=== PATIENT | male | born 1960 | race Caucasian/White ===

== ENCOUNTER 2016-09-17 05:26 | Emergency (ER) | payer OTHER ==
[2016-09-17 06:30] VITALS: BMI 34.3
--- NOTE | 2016-09-17 06:48 | PDOC ---
History of Present Illness - General History Source: Patient Exam Limitations: No Limitations - History of Present Illness Initial Comments: 09/17/16 06:52 The patient is a 56 year old male with a significant past medical history of CVA (residual left sided weakness), diabetes, hypertension, and CHF (has 2 stents), who presents to the ER with intox and abrasion on the forehead s/p fall a few hours ago. Patient [place] where he [place] alcohol. He recalls falling and hitting his forehead, but denies loss of consciousness. On interview, patient appears to be somnolent. He denies any associated pain. Denies abdominal pain Denies shortness of breath, chest pain Denies lightheadedness or dizziness <Maryanne Bosch - Last Filed: 09/17/16 06:55> <Eloina Mak - Last Filed: 09/19/16 00:03> - General Chief Complaint: Injury Stated Complaint: INTOX Time Seen by Provider: 09/17/16 05:29 Past History <Maryanne Bosch - Last Filed: 09/17/16 06:55> - Past Medical History Anemia: No Asthma: No Cancer: No Cardiac Disorders: Yes (stent x 2) CVA: Yes (2010, 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) COPD: No CHF: No Dementia: No Diabetes: Yes GI Disorders: No Disorders: No HTN: Yes Hypercholesterolemia: Yes Liver Disease: No Suicide Attempt (Hx): Yes Seizures: No Thyroid Disease: No - Surgical History Abdominal Surgery: No Appendectomy: No Cardiac Surgery: Yes (STENTS X2) Cholecystectomy: No Lung Surgery: No Neurologic Surgery: No Orthopedic Surgery: No - Immunization History Immunization Up to Date: Yes - Psycho/Social/Smoking Cessation Hx Anxiety: No Suicidal Ideation: No Smoking Status: Yes Smoking History: Current every day smoker Have you smoked in the past 12 months: Yes Number of Cigarettes Smoked Daily: 8 If you are a former smoker, when did you quit?: 3 months ago Cigars Per Day: 0 Information on smoking cessation initiated: No 'Breaking Loose' booklet given: 11/21/15 Hx Alcohol Use: Yes Drug/Substance Use Hx: No Substance Use Type: None Hx Substance Use Treatment: No <Eloina Mak - Last Filed: 09/19/16 00:03> - Past Medical History Allergies/Adverse Reactions: Allergies Allergy/AdvReac Type Severity Reaction Status Date / Time No Known Drug Allergies Allergy Verified 09/17/16 06:16 Home Medications: Ambulatory Orders Glipizide [Glipizide ER] 2.5 mg PO BID 10/15/13 Amlodipine Besylate [Norvasc -] 5 mg PO DAILY 09/17/16 Review of Systems - Review of Systems Able to Perform ROS?: Yes Comments:: 09/17/16 06:53 CONSTITUTIONAL: Absent: fever, no chills, no fatigue EYES: Absent: visual changes ENT: Absent: ear pain, no sore throat CARDIOVASCULAR: Absent: chest pain, no palpitations RESPIRATORY: Absent: cough, no SOB GI: Absent: abdominal pain, no nausea, no vomiting, no constipation, no diarrhea GENITOURINARY: Absent: dysuria, no frequency, no hematuria MUSCULOSKELETAL: Absent: back pain, no arthralgia, no myalgia SKIN: Present: (+) abrasion on forehead Absent: rash NEURO: Absent: headache <Uts,Maryanne - Last Filed: 09/17/16 06:55> *Physical Exam - Vital Signs Last Vital Signs Temp Pulse Resp BP Pulse Ox 97.8 F 92 H 14 144/69 100 09/17/16 05:27 09/17/16 05:09/17/16 05:09/17/16 05:09/17/16 05:27 - Physical Exam Comments: 09/17/16 06:53 GENERAL: Well-appearing, well-nourished. No apparent distress. HEENT: Normocephalic, atraumatic. PERRL, EOM intact. CARDIOVASCULAR: Normal S1, S2. Regular rate and rhythm. PULMONARY: Clear to auscultation bilaterally. ABDOMEN: Soft, non-distended, non-tender. EXTREMITIES: Normal ROM in all four extremities. No gross deformities. SKIN: Warm, dry. No rash NEUROLOGICAL: Minimally weak on the left side (4/5 strength) <Uts,Maryanne - Last Filed: 09/17/16 06:55> - Vital Signs Last Vital Signs Temp Pulse Resp BP Pulse Ox 97.8 F 92 H 14 144/69 100 09/17/16 05:27 09/17/16 05:27 09/17/16 05:27 09/17/16 05:27 09/17/16 05:27 <Eloina Mak - Last Filed: 09/19/16 00:03> ED Treatment Course - LABORATORY CBC & Chemistry Diagram: 09/17/16 07:11 09/17/16 07:11 <Eloina Mak - Last Filed: 09/19/16 00:03> Medical Decision Making - Medical Decision Making 09/17/16 06:58 [place] and hit his forehead. Brought by EMS. Pt is A+Ox3 he is ambulating about the ER, now resting in bed. He says that he never lost consciousness. He has a hematoma on his forehead. He complains of blurry vision x 3 weeks. We will check labs, as he has a hx of DM and a head CT. AM ER doc will get signout and check labs and head CT. <Eloina Mak - Last Filed: 09/19/16 00:03> *DC/Admit/Observation/Transfer - Attestations Scribe Attestion: Documentation prepared by Maryanne Bosch, acting as medical csr for Eloina Mak MD. <Maryanne Bosch - Last Filed: 09/17/16 06:55> <Eloina Mak - Last Filed: 09/19/16 00:03> Diagnosis at time of Disposition: Alcohol intoxication - Discharge Dispostion Disposition: HOME Condition at time of disposition: Stable - Patient Instructions Printed Discharge Instructions: DI for Alcohol Abuse Additional Instructions: Follow-up with primary care physician. Return to the emergency department if symptoms persist, worsen, or new symptoms arise.
[2016-09-17] MEDS ORDERED: SODIUM CHLORIDE 0.9% 500 ML INFUS.BAG IV ONE (06:54)
[2016-09-17 07:21] LABS: BASOPHIL 0.9 % (0-2.0); MCH 32.8 pg (25.7-33.7); MCHC 34.7 g/dl (32.0-35.9); MEAN CELL VOLUME 94.5 fl (80-96); NEUTROPHILS 67.1 % (42.8-82.8); PLATELET COUNT 164 K/MM3 (134-434); RDW 14.9 % (11.9-15.9); WHITE BLOOD COUNT 6.1 K/mm3 (4.0-10.0)
[2016-09-17 07:48] LABS: ALBUMIN 3.2 g/dl (3.4-5.0); ALK PHOS 68 U/L (45-117); ANION GAP 9 (8-16); BILIRUBIN,TOTAL 0.2 mg/dL (0.2-1.0); CO2 25 mmol/L (21-32); COCKROFT - GAULT 68.87; CREATININE 1.5 mg/dL (0.7-1.3); GLUCOSE,RANDOM 149 mg/dL (74-106); SGOT/AST 14 U/L (15-37); SGPT/ALT 19 U/L (12-78); TOT PROT 5.9 g/dl (6.4-8.2)
[2016-09-17 08:12] VITALS: TEMP 98.1
[2016-09-17 09:10] LABS: ACETONE SERUM NEGATIVE (NEGATIVE)
--- NOTE | 2016-09-17 10:30 | PDOC ---
*Physical Exam - Vital Signs Last Vital Signs Temp Pulse Resp BP Pulse Ox 98.1 F 70 18 136/74 98 09/17/16 07:30 09/17/16 07:30 09/17/16 07:30 09/17/16 07:30 09/17/16 07:30 ED Treatment Course - LABORATORY CBC & Chemistry Diagram: 09/17/16 07:11 09/17/16 07:11 - ADDITIONAL ORDERS Additional order review: Laboratory Results 09/17/16 09/17/16 07:11 07:11 Sodium 143 Potassium 4.1 Chloride 109 H Carbon Dioxide 25 Anion Gap 9 BUN 46 H Creatinine 1.5 H Creat Clearance w eGFR 48.07 Random Glucose 149 H Calcium 8.0 L Total Bilirubin 0.2 D AST 14 L ALT 19 Alkaline Phosphatase 68 Total Protein 5.9 L Albumin 3.2 L Alcohol, Quantitative 104.6 H* Acetone, Qual Negative 09/17/16 07:11 RBC 3.17 L MCV 94.5 MCHC 34.7 RDW 14.9 MPV 8.0 Neutrophils % 67.1 Lymphocytes % 19.6 Monocytes % 8.4 Eosinophils % 4.0 Basophils % 0.9 - Medications Given in the ED: ED Medications Discontinued Medications Generic Name Dose Route Start Last Admin Trade Name Freq PRN Reason Stop Dose Admin Sodium Chloride 500 ml 09/17/16 06:54 09/17/16 07:30 Normal Saline - IV 09/17/16 06:55 500 ml ONCE ONE Administration Progress Note - Progress Note Progress Note: This patient was endorsed to me at [address] Red pending results of lab studies and CT head which are all within acceptable parameters. The alcohol level was 100 at 7 AM. I have reevaluated the patient at this time and he is awake alert and oriented 3 and is clinically sober. The plan is to discharge home, follow-up with primary care physician and return to the emergency department if symptoms persist, worsen, or new symptoms arise. *DC/Admit/Observation/Transfer Diagnosis at time of Disposition: Alcoholic intoxication - Discharge Dispostion Disposition: HOME Condition at time of disposition: Stable Admit: No - Patient Instructions Printed Discharge Instructions: DI for Alcohol Abuse Additional Instructions: Follow-up with primary care physician. Return to the emergency department if symptoms persist, worsen, or new symptoms arise.
[2016-09-17 10:46] VITALS: BP 130/70; PULSE 79
== END 2016-09-17 10:46 | disposition home or self-care (01) ==
LOC: JER 05:26
DX: F10.10 Alcohol abuse, uncomplicated (principal); S00.81XA Abrasion of other part of head, initial encounter; W18.39XA Other fall on same level, initial encounter; Y93.89 Activity, other specified; Y92.59 Other trade areas as the place of occurrence of the external cause; Y99.8 Other external cause status; I25.10 Atherosclerotic heart disease of native coronary artery without angina pectoris; I11.0 Hypertensive heart disease with heart failure; F17.210 Nicotine dependence, cigarettes, uncomplicated; Z95.5 Presence of coronary angioplasty implant and graft; E11.9 Type 2 diabetes mellitus without complications; I69.854 Hemiplegia and hemiparesis following other cerebrovascular disease affecting left non-dominant side; Z79.84 Long term (current) use of oral hypoglycemic drugs
CPT/HCPCS: 36415; 70450-TC; 80053; 80307; 82009; 85025; 99285-25

== ENCOUNTER 2016-10-17 16:19 | Inpatient (IN) | payer OTHER ==
--- NOTE | 2016-10-17 16:49 | PDOC ---
Rapid Medical Evaluation Chief Complaint: Chest Pain Time Seen by Provider: 10/17/16 16:44 Medical Evaluation: Allergies Allergy/AdvReac Type Severity Reaction Status Date / Time No Known Drug Allergies Allergy Verified 10/17/16 16:41 I have performed a brief in-person evaluation of this patient. The patient presents with a chief complaint of: Multiple complaints including CP this am and worsening numbness to L arm/leg x 3 days. Also c/o urinary incontinence x 1 week. H/o DM, CAD w/ stents, CVA w/ L sided deficit Pertinent physical exam findings:Stable and well jony w/ L sided weakness ( baseline since CVA) I have ordered the following:ekg/cxr/cbc/chem/trop/ua The patient will proceed to the ED for further evaluation.
--- NOTE | 2016-10-17 17:35 | PDOC ---
History of Present Illness - General Chief Complaint: Chest Pain Stated Complaint: CHEST PAIN Time Seen by Provider: 10/17/16 16:44 History Source: Patient Exam Limitations: No Limitations - History of Present Illness Initial Comments: 10/17/16 17:14 The patient is a 55 year old male brought via EMS, with a significant past medical history of CVA (~6 years ago, left side slight residual weakness), dm, HTN (has not taken meds x 3w), cad s/p stents on plavix, and hld, here a month ago for EtOH intoxication, who presents to the emergency department with chest pain x 4 hr. Chest pain is the same pain he intermittantly has (evaluated here for chest pain in past), mid sternal, nonradiating, constant, not associated with palpitations, loc, sob or orthopnea. He denies increase in weight. He has chronic dry cough (current smoker). Over the past week he developed urinary incontinence, urgency, malodorous foamy urine, increased weakness and increased edema in his left upper and lower extremities affected by past cva. He denies hematuria, dysuria, flank pain, abd pain, f/c. He denies diarrhea, constipation , melena, hematochezia. PCP Dr Malinda Islas 10/17/16 17:39 10/17/16 18:19 Past History - Past Medical History Allergies/Adverse Reactions: Allergies Allergy/AdvReac Type Severity Reaction Status Date / Time No Known Drug Allergies Allergy Verified 10/17/16 16:41 Home Medications: Ambulatory Orders Glipizide [Glipizide ER] 5 mg PO DAILY 10/15/13 Amlodipine Besylate [Norvasc -] 5 mg PO DAILY 09/17/16 Carvedilol [Coreg -] 0 mg PO DAILY 10/17/16 Clopidogrel Bisulfate [Plavix -] 75 mg PO DAILY 10/17/16 Anemia: No Asthma: No Cancer: No Cardiac Disorders: Yes (stent x 2) CVA: Yes (2009, 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) COPD: No CHF: No Dementia: No Diabetes: Yes GI Disorders: No Disorders: No HTN: Yes Hypercholesterolemia: Yes Liver Disease: No Suicide Attempt (Hx): Yes Seizures: No Thyroid Disease: No - Surgical History Abdominal Surgery: No Appendectomy: No Cardiac Surgery: Yes (STENTS X2) Cholecystectomy: No Lung Surgery: No Neurologic Surgery: No Orthopedic Surgery: No - Immunization History Immunization Up to Date: Yes - Psycho/Social/Smoking Cessation Hx Anxiety: No Suicidal Ideation: No Smoking Status: Yes Smoking History: Current every day smoker Have you smoked in the past 12 months: Yes Number of Cigarettes Smoked Daily: 4 If you are a former smoker, when did you quit?: 3 months ago Cigars Per Day: 0 Information on smoking cessation initiated: Yes 'Breaking Loose' booklet given: 10/17/16 Hx Alcohol Use: No Drug/Substance Use Hx: No Substance Use Type: None Hx Substance Use Treatment: No Review of Systems - Review of Systems Able to Perform ROS?: Yes Is the patient limited Telugu proficient: No Constitutional: Yes: Weakness. No: Chills, Fever HEENTM: No: Nose Congestion, Throat Pain, Difficulty Swallowing Respiratory: Yes: Cough. No: Orthopnea, Shortness of Breath, Productive cough, Hemoptysis Cardiac (ROS): Yes: Chest Pain, Edema. No: Irregular Heart Rate, Lightheadedness, Palpitations, Syncope ABD/GI: No: Abdominal Distended, Constipated, Diarrhea, Nausea, Poor Appetite, Rectal Bleeding, Vomiting, Abdominal cramping, Tarry Stools : No: Dysuria, Flank Pain Musculoskeletal: Yes: Muscle Weakness, Joint Stiffness. No: Back Pain, Joint Pain Integumentary: No: Bruising, Pruritus, Rash Neurological: Yes: Numbness, Paresthesia (LUE LLE). No: Headache Psychiatric: No: Change in Appetite Endocrine: No: Change in Weight Hematologic/Lymphatic: No: Anemia, Blood Clots, Easy Bleeding, Easy Bruising All Other Systems: Reviewed and Negative *Physical Exam - Vital Signs Last Vital Signs Temp Pulse Resp BP Pulse Ox 98.2 F 88 18 155/78 96 10/17/16 16:43 10/17/16 16:43 10/17/16 16:43 10/17/16 16:43 10/17/16 16:43 - Physical Exam Comments: 10/17/16 17:44 General: aao x3, nad HEENT: perrla eomi, sclera anicteric cv: rrr s1s, mild jvd with hepatojugular reflex pulm: mild bibasilar crackles R>L GI/: soft, moderately distended, +fluid wave, normoactive bowel sounds, nontender, no mass, no cva tenderness Extremities: LUE and LLE ematous Heart Score/ECG Review - History History: Slightly suspicious - Age Age: 45-65 - Risk Factors Risk Factors Heart Score: Yes Hx Hypercholesterolemia, Yes Hx Hypertension, Yes Hx Diabetes, Yes Smoking History, Yes Hx Obesity #1 ECG reviewed & interpreted by me at: 17:20 (, no change compared to prior) ED Treatment Course - LABORATORY CBC & Chemistry Diagram: 10/17/16 17:34 10/17/16 17:34 Medical Decision Making - Medical Decision Making 10/17/16 17:51 Patient presents with clinical picture consistent with volume overload, possible uti, chest pain cbc w diff, cmp, cardiac profile, lactic acid, blood urine cultures, ua, ekg, cxr 10/17/16 18:17 cbc slightly increased anemia (hgb 9.9 from 10.4 a month ago) UA nephrotic range 3+ protein 2+ gluc 1+ blood -order urine lytes, fena, eosinophils, utox 10/17/16 18:19 CXR poor inspiratory effort, increased vessel cephalization 10/17/16 18:23 10/17/16 18:35 bun/creat 45/1.5 at baseline, trop negative etoh level 104.6 elevated; patient continues to deny drinking etoh 10/17/16 18:36 further labs p/d 10/17/16 18:36 10/17/16 18:51 10/17/16 18:53 will bladder scan *DC/Admit/Observation/Transfer Diagnosis at time of Disposition: Chest pain, Urinary incontinence
[2016-10-17 17:53] LABS: MCH 31.7 pg (25.7-33.7); MEAN CELL VOLUME 96.2 fl (80-96); MEAN PLT VOLUME 8.9 fl (7.5-11.1); NEUTROPHILS 73.2 % (42.8-82.8); PLATELET COUNT 202 K/MM3 (134-434); RDW 14.2 % (11.9-15.9); WHITE BLOOD COUNT 6.7 K/mm3 (4.0-10.0)
[2016-10-17 18:08] LABS: URINE APPEARANCE CLEAR; URINE BILIRUBIN NEGATIVE (NEGATIVE); URINE COLOR LTYELLOW; URINE GLUCOSE (UA) 2+ (NEGATIVE); URINE KETONE NEGATIVE (NEGATIVE); URINE LEUK ESTERASE NEGATIVE (NEGATIVE); URINE NITRITE NEGATIVE (NEGATIVE); URINE UROBILINOGEN NEGATIVE E.U./dl (0.2-1.0)
[2016-10-17 18:09] LABS: URINE BLOOD 1+ (NEGATIVE); URINE PROTEIN 3+ (NEGATIVE)
[2016-10-17 18:11] LABS: URINE HYALINE CAST 1 /lpf; URINE MUCUS RARE; URINE RBC 2 /hpf (0-3); URINE WBC 1 /hpf (3-5)
[2016-10-17 18:27] LABS: ANION GAP 8 (8-16); CALCIUM 8.6 mg/dL (8.5-10.1); CO2 26 mmol/L (21-32); CREATININE 1.5 mg/dL (0.7-1.3); GLUCOSE,RANDOM 192 mg/dL (74-106); SGOT/AST 16 U/L (15-37); SGPT/ALT 20 U/L (12-78)
[2016-10-17 18:30] LABS: ALK PHOS 80 U/L (45-117); BILIRUBIN,TOTAL 0.2 mg/dL (0.2-1.0); TROPONIN I 0.03 ng/ml (0.00-0.05)
[2016-10-17 20:37] LABS: URINE MARIJUANA THC NEGATIVE ng/ml (CUTOFF=50)
[2016-10-17 21:57] LABS: TROPONIN I 0.04 ng/ml (0.00-0.05)
--- NOTE | 2016-10-17 23:13 | PDOC ---
*Physical Exam - Vital Signs Last Vital Signs Temp Pulse Resp BP Pulse Ox 98.2 F 88 18 155/78 96 10/17/16 16:43 10/17/16 16:43 10/17/16 16:43 10/17/16 16:43 10/17/16 16:43 ED Treatment Course - LABORATORY CBC & Chemistry Diagram: 10/17/16 17:34 10/17/16 17:34 - ADDITIONAL ORDERS Additional order review: Laboratory Results 10/17/16 10/17/16 10/17/16 21:02 19:15 18:16 WBC RBC Hgb Hct MCV MCHC RDW Plt Count MPV Neutrophils % Lymphocytes % Monocytes % Eosinophils % Basophils % Sodium Potassium Chloride Carbon Dioxide Anion Gap BUN Creatinine Creat Clearance w eGFR Random Glucose Lactic Acid Calcium Total Bilirubin AST ALT Alkaline Phosphatase Creatine Kinase 292 Creatine Kinase Index CK-MB (CK-2) Troponin I 0.04 D Total Protein Albumin Lipase Urine Color Urine Appearance Urine pH Ur Specific [place] Urine Protein Urine Glucose (UA) Urine Ketones Urine Blood Urine Nitrite Urine Bilirubin Urine Urobilinogen Ur Leukocyte Esterase Urine RBC Urine WBC Hyaline Casts Urine Mucus Ur Random Sodium 63 Ur Random Potassium 29.6 Ur Random Chloride 55 Urine Creatinine 105.0 Opiates Screen Negative Methadone Screen Negative Barbiturate Screen Negative Phencyclidine Screen Negative Ur Amphetamines Screen Negative MDMA (Ecstasy) Screen Negative Benzodiazepines Screen Negative Cocaine Screen Negative U Marijuana (THC) Screen Negative 10/17/16 10/17/16 10/17/16 18:03 17:50 17:50 WBC RBC Hgb Hct MCV MCHC RDW Plt Count MPV Neutrophils % Lymphocytes % Monocytes % Eosinophils % Basophils % Sodium Potassium Chloride Carbon Dioxide Anion Gap BUN Creatinine Creat Clearance w eGFR Random Glucose Lactic Acid 1.3 Calcium Total Bilirubin AST ALT Alkaline Phosphatase Creatine Kinase Creatine Kinase Index CK-MB (CK-2) Troponin I Total Protein Albumin Lipase 249 Urine Color Ltyellow Urine Appearance Clear Urine pH 5.0 Ur Specific [place] 1.025 Urine Protein 3+ H Urine Glucose (UA) 2+ H Urine Ketones Negative Urine Blood 1+ H Urine Nitrite Negative Urine Bilirubin Negative Urine Urobilinogen Negative Ur Leukocyte Esterase Negative Urine RBC 2 Urine WBC 1 Hyaline Casts 1 Urine Mucus Rare Ur Random Sodium Ur Random Potassium Ur Random Chloride Urine Creatinine Opiates Screen Methadone Screen Barbiturate Screen Phencyclidine Screen Ur Amphetamines Screen MDMA (Ecstasy) Screen Benzodiazepines Screen Cocaine Screen U Marijuana (THC) Screen 10/17/16 10/17/16 17:34 17:34 WBC 6.7 RBC 3.12 L Hgb 9.9 L Hct 30.0 L MCV 96.2 H MCHC 33.0 RDW 14.2 Plt Count 202 D MPV 8.9 D Neutrophils % 73.2 Lymphocytes % 13.8 D Monocytes % 8.0 Eosinophils % 4.0 Basophils % 1.0 Sodium 142 Potassium 4.5 Chloride 108 H Carbon Dioxide 26 Anion Gap 8 BUN 45 H Creatinine 1.5 H Creat Clearance w eGFR 48.07 Random Glucose 192 H D Lactic Acid Calcium 8.6 Total Bilirubin 0.2 AST 16 ALT 20 Alkaline Phosphatase 80 Creatine Kinase 285 D Creatine Kinase Index 1.7 CK-MB (CK-2) 4.719 H Troponin I 0.03 D Total Protein 6.0 L Albumin 3.0 L Lipase Urine Color Urine Appearance Urine pH Ur Specific [place] Urine Protein Urine Glucose (UA) Urine Ketones Urine Blood Urine Nitrite Urine Bilirubin Urine Urobilinogen Ur Leukocyte Esterase Urine RBC Urine WBC Hyaline Casts Urine Mucus Ur Random Sodium Ur Random Potassium Ur Random Chloride Urine Creatinine Opiates Screen Methadone Screen Barbiturate Screen Phencyclidine Screen Ur Amphetamines Screen MDMA (Ecstasy) Screen Benzodiazepines Screen Cocaine Screen U Marijuana (THC) Screen 10/17/16 17:34 RBC 3.12 L MCV 96.2 H MCHC 33.0 RDW 14.2 MPV 8.9 D Neutrophils % 73.2 Lymphocytes % 13.8 D Monocytes % 8.0 Eosinophils % 4.0 Basophils % 1.0 *DC/Admit/Observation/Transfer Diagnosis at time of Disposition: IDDM (insulin dependent diabetes mellitus) Chest pain Qualifiers: Chest pain type: precordial pain Qualified Code(s): R07.2 - Precordial pain Urinary incontinence Qualifiers: Urinary Incontinence type: unspecified incontinence Qualified Code(s): R32 - Unspecified urinary incontinence CKD (chronic kidney disease) Qualifiers: Chronic kidney disease stage: unspecified stage Qualified Code(s): N18.9 - Chronic kidney disease, unspecified Alcohol intoxication Qualifiers: Complication of substance-induced condition: uncomplicated Qualified Code(s): F10.920 - Alcohol use, unspecified with intoxication, uncomplicated - Discharge Dispostion Admit: Yes
[2016-10-18] MEDS: glipiZIDE-XL 5 MG TAB.ER.24 PO SCH (08:40)
[2016-10-18] MEDS ORDERED: glipiZIDE 5 MG TABLET (FP) ONE (08:50)
[2016-10-18] MEDS: INSULIN SLIDING SCALE (NOVOLOG) 1 VIAL SQ SCH ×4 (08:50→21:57)
[2016-10-18] MEDS ORDERED: INSULIN (NOVOLOG) ASPART 100 UNITS/ML 10ML VIAL ONE ×3 (08:50→21:52)
--- NOTE | 2016-10-18 09:59 | CON.CARD ---
Consult Consult Specialty:: Cardiology Referred by:: Dr. 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 Worsening of his chronic stable angina. Describes chronic exertional chest pain for "months" which lasted longer yesterday. Was walking from [facility] to [facility] (several miles) and developed substernal tightness which was relieved with rest, but lasted longer than his usual few minutes. No dyspnea. non palps. 2. Worsening LE edema for few weeks, L>>R 3. Pain and "numbness" of his LE limiting his ability to walk. 4. Dysuria Denies fever, chills. Denies syncope. No abdominal pain or diarrhea. 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[employer]ER: Yes: CVA, Peripheral Neuropathy, Other (arterial insufficiency s/p left fem -tibial bypass- 2013) Cardio/Vascular: Yes: CAD, HTN, Hyperlipdemia Pulmonary: Yes: COPD Psych: Yes: Anxiety Endocrine: Yes: Diabetes Mellitus - Past Surgical History Past Surgical History: Yes: Bypass, Stent - Alcohol/Substance Use Hx Alcohol Use: No - Smoking History Smoking history: Current every day smoker Have you smoked in the past 12 months: Yes Aproximately how many cigarettes per day: 4 If you are a former smoker, when did you quit?: 3 months ago - Social History ADL: Independent History of Recent Travel: No Home Medications - Allergies Allergies/Adverse Reactions: Allergies Allergy/AdvReac Type Severity Reaction Status Date / Time No Known Drug Allergies Allergy Verified 10/17/16 16:41 - Home Medications Home Medications: Ambulatory Orders Glipizide [Glipizide ER] 5 mg PO DAILY 10/15/13 Amlodipine Besylate [Norvasc -] 5 mg PO DAILY 09/17/16 Carvedilol [Coreg -] 0 mg PO DAILY 10/17/16 Clopidogrel Bisulfate [Plavix -] 75 mg PO DAILY 10/17/16 Family Disease History - Family Disease History Family History: Unremarkable (non-contributory to this presentation) Review of Systems Findings/Remarks: see HPI - Review of Systems Cardiovascular: reports: Chest Pain Respiratory: reports: SOB on Exertion (chronic) Musculoskeletal: reports: Other (leg pain bilaterally) Neurological: reports: Unsteady Gait, Weakness - Risk Factors Known Risk Factors: Yes: Diabetes Mellitus, Hypercholesterolemia, Hypertension, Prior [place] /[place] Stroke, Smoking, Other (known CAD) Vital Signs: Vital Signs Temperature 98.2 F 10/18/16 07:53 Pulse Rate 82 10/18/16 07:53 Respiratory Rate 16 10/18/16 03:53 Blood Pressure 162/78 10/18/16 07:53 O2 Sat by Pulse Oximetry (%) 96 10/18/16 07:53 Constitutional: Yes: No Distress Eyes: Yes: Conjunctiva Clear Respiratory: Yes: Regular, Other (no wheezing or rales) Gastrointestinal: Yes: Soft (nontender) Cardiovascular: Yes: Regular Rate and Rhythm JVD: No Carotid Bruit: No PMI: Non-Displaced Edema: Yes Edema: LLE: 3+, RLE: 2+ Neurological: Yes: Alert - Other Data Labs, Other Data: Laboratory Tests 10/17/16 10/17/16 10/17/16 17:34 17:34 17:50 WBC 6.7 Hgb 9.9 L Plt Count 202 D Sodium 142 Potassium 4.5 BUN 45 H Creatinine 1.5 H Creatine Kinase 285 D Troponin I 0.03 D Lipase 249 Urine Protein Urine Glucose (UA) Urine WBC Opiates Screen Methadone Screen Barbiturate Screen Phencyclidine Screen Ur Amphetamines Screen MDMA (Ecstasy) Screen Benzodiazepines Screen Cocaine Screen U Marijuana (THC) Screen 10/17/16 10/17/16 10/17/16 18:03 18:16 21:02 WBC Hgb Plt Count Sodium Potassium BUN Creatinine Creatine Kinase 292 Troponin I 0.04 D Lipase Urine Protein 3+ H Urine Glucose (UA) 2+ H Urine WBC 1 Opiates Screen Negative Methadone Screen Negative Barbiturate Screen Negative Phencyclidine Screen Negative Ur Amphetamines Screen Negative MDMA (Ecstasy) Screen Negative Benzodiazepines Screen Negative Cocaine Screen Negative U Marijuana (THC) Screen Negative NSR 92bpm, bifascicular block Echo: Pending Prior Cardiac Procedures: PTCA with Stent Ejection Fraction %: LVEF > or = 40 % Imaging - Results Chest X-ray: Image Reviewed EKG: Image Reviewed Problem List - Problems (1) Chronic stable angina Code(s): I20.8 - OTHER FORMS OF ANGINA PECTORIS (2) ASHD (arteriosclerotic heart disease) Code(s): I25.10 - ATHSCL HEART DISEASE OF [place] CORONARY ARTERY W/O ANG PCTRS (3) PAD (peripheral artery disease) Code(s): I73.9 - PERIPHERAL VASCULAR DISEASE, UNSPECIFIED (4) Edema Code(s): R60.9 - EDEMA, UNSPECIFIED Qualifiers: Edema type: unspecified Qualified Code(s): R60.9 - Edema, unspecified (5) IDDM (insulin dependent diabetes mellitus) Code(s): E11.9 - TYPE 2 DIABETES MELLITUS WITHOUT COMPLICATIONS Z79.4 - PENITENTIARY (CURRENT) USE OF INSULIN (6) Diabetic neuropathy Code(s): E11.40 - TYPE 2 DIABETES MELLITUS WITH DIABETIC NEUROPATHY, UNSP Qualifiers: Diabetes mellitus type: due to underlying condition (7) Stroke Assessment/Plan: old CVA Code(s): I63.9 - CEREBRAL INFARCTION, UNSPECIFIED Assessment/Plan IMP: Known CAD s/p PCIs, chronic stable angina with possible recent worsening of stable complex Asymmetric LE edema, possibly due to acute on chronic diastolic CHF PAD DM Prior CVA REC: 1. Obtain third set cardiac enzymes 2. Echo to assess LV systolic function, assess for PHTN 3. Continue Plavix 4. Add Ranexa 5. Check LE Venous Duplex 6. Trial of Lasix 7. Consider Vascular and Neuro evaluation for LE pain and numbness.
[2016-10-18 10:59] LABS: TROPONIN I 0.03 ng/ml (0.00-0.05)
[2016-10-18] MEDS: CEFTRIAXONE 50 ML IVPB SCH (11:15)
[2016-10-18] MEDS: CLOPIDOGREL BISULFATE 75 MG TABLET (FP) PO SCH (11:15)
[2016-10-18] MEDS: CARVEDILOL 25 MG TABLET (FP) PO SCH (11:15)
[2016-10-18] MEDS: FUROSEMIDE 40 MG/4 ML INJECTABLE VIAL IVPUSH SCH (11:15)
[2016-10-18] MEDS: amLODIPine BESYLATE 5 MG TABLET (FP) PO SCH (11:15)
[2016-10-18] MEDS: ASPIRIN COATED 81 MG TABLET.EC PO SCH (11:15)
[2016-10-18] MEDS ORDERED: CEFTRIAXONE 50 ML ONE (11:15)
--- NOTE | 2016-10-18 12:45 | HP ---
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, Peripheral Neuropathy, Other (arterial insufficiency s/p left fem -tibial bypass- 2014) Cardiovascular: Yes: CAD, HTN, Hyperlipdemia Pulmonary: Yes: COPD Heme/Onc: Yes: Anemia Psych: Yes: Anxiety Endocrine: Yes: Diabetes Mellitus - Past Surgical History Past Surgical History: Yes: Bypass, Stent - Smoking History Smoking history: Current every day smoker Have you smoked in the past 12 months: Yes Aproximately how many cigarettes per day: 4 If you are a former smoker, when did you quit?: 3 months ago - Alcohol/Substance Use Hx Alcohol Use: No - Social History ADL: Independent History of Recent Travel: No Home Medications - Allergies Allergies/Adverse Reactions: Allergies Allergy/AdvReac Type Severity Reaction Status Date / Time No Known Drug Allergies Allergy Verified 10/17/16 16:41 - Home Medications Home Medications: Ambulatory Orders Glipizide [Glipizide ER] 5 mg PO DAILY 10/15/13 Amlodipine Besylate [Norvasc -] 5 mg PO DAILY 09/17/16 Carvedilol [Coreg -] 0 mg PO DAILY 10/17/16 Clopidogrel Bisulfate [Plavix -] 75 mg PO DAILY 10/17/16 Physical Examination Vital Signs: Vital Signs Temperature 98.2 F 10/18/16 07:53 Pulse Rate 82 10/18/16 11:25 Respiratory Rate 16 10/18/16 03:53 Blood Pressure 155/74 10/18/16 11:25 O2 Sat by Pulse Oximetry (%) 98 10/18/16 11:25
[2016-10-18] MEDS: RANOLAZINE E.R. 500 MG TABLET (FP) PO SCH ×2 (13:41→21:56)
[2016-10-18 15:18] LABS: TROPONIN I 0.03 ng/ml (0.00-0.05)
[2016-10-18 17:01] VITALS: BMI 34.0
--- NOTE | 2016-10-18 17:22 | CONSULT ---
Consult Consult Specialty:: infectious diseases Referred by:: Reason for Consultation:: uti - History of Present Illness Chief Complaint: not feling well History of Present Illness: 55 year old male brought via EMS, with a significant past medical history of CVA , dm, HTN (has not taken meds x 3w), cad s/p stents on plavix, and hld, , who came with chest pain r. Chest pain is the same pain he intermittantly has ( evaluated here for chest pain in past), mid sternal, nonradiating, constant, not associated with palpitations, loc, sob or orthopnea. He denies increase in weight. 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, Peripheral Neuropathy, Other (arterial insufficiency s/p left fem -tibial bypass- 2013) Cardio/Vascular: Yes: CAD, HTN, Hyperlipdemia Pulmonary: Yes: COPD Psych: Yes: Anxiety Endocrine: Yes: Diabetes Mellitus - Past Surgical History Past Surgical History: Yes: Bypass, Stent - Alcohol/Substance Use Hx Alcohol Use: No - Smoking History Smoking history: Current every day smoker Have you smoked in the past 12 months: Yes Aproximately how many cigarettes per day: 4 If you are a former smoker, when did you quit?: 3 months ago - Social History ADL: Independent History of Recent Travel: No Home Medications - Allergies Allergies/Adverse Reactions: Allergies Allergy/AdvReac Type Severity Reaction Status Date / Time No Known Drug Allergies Allergy Verified 10/17/16 16:41 - Home Medications Home Medications: Ambulatory Orders Glipizide [Glipizide ER] 5 mg PO DAILY 10/15/13 Amlodipine Besylate [Norvasc -] 5 mg PO DAILY 09/17/16 Carvedilol [Coreg -] 0 mg PO DAILY 10/17/16 Clopidogrel Bisulfate [Plavix -] 75 mg PO DAILY 10/17/16 Review of Systems - Review of Systems Constitutional: reports: No Symptoms Eyes: reports: No Symptoms HENT: reports: No Symptoms Neck: reports: No Symptoms Cardiovascular: reports: Chest Pain Respiratory: reports: No Symptoms Gastrointestinal: reports: No Symptoms Genitourinary: reports: Burning, Urgency Musculoskeletal: reports: No Symptoms Integumentary: reports: No Symptoms Neurological: reports: Other Endocrine: reports: No Symptoms Hematology/Lymphatic: reports: No Symptoms Psychiatric: reports: No Symptoms Physical Exam Vital Signs: Vital Signs Temperature 98.4 F 10/18/16 16:39 Pulse Rate 68 10/18/16 16:39 Respiratory Rate 18 10/18/16 16:39 Blood Pressure 128/65 10/18/16 16:39 O2 Sat by Pulse Oximetry (%) 98 10/18/16 16:39 Constitutional: Yes: No Distress, Calm Eyes: Yes: Conjunctiva Clear Cardiovascular: Yes: Regular Rate and Rhythm Respiratory: Yes: Regular, CTA Bilaterally Gastrointestinal: Yes: Normal Bowel Sounds, Soft Musculoskeletal: Yes: Other Extremities: Yes: Other Edema: LLE: 2+, RLE: 2+ Neurological: Yes: Alert, Other Imaging - Results Chest X-ray: Report Reviewed, Image Reviewed Assessment/Plan - Problems (1) Chronic stable angina Code(s): I20.8 - OTHER FORMS OF ANGINA PECTORIS (2) ASHD (arteriosclerotic heart disease) Code(s): I25.10 - ATHSCL HEART DISEASE OF [place] CORONARY ARTERY W/O ANG PCTRS (3) PAD (peripheral artery disease) Code(s): I73.9 - PERIPHERAL VASCULAR DISEASE, UNSPECIFIED (4) Edema Code(s): R60.9 - EDEMA, UNSPECIFIED Qualifiers: Edema type: unspecified Qualified Code(s): R60.9 - Edema, unspecified (5) IDDM (insulin dependent diabetes mellitus) Code(s): E11.9 - TYPE 2 DIABETES MELLITUS WITHOUT COMPLICATIONS Z79.4 - GLUE MACHINE 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
--- NOTE | 2016-10-18 17:35 | CONSULT ---
Consult - text type - Consultation Consultation Note: NEUROLOGY CONSULTATION is greatly appreciated: This 56 yo RH man lives with a roommate. PMH is sig for DM, HTN, ASHD. S/P CA stents and PVD s/p Left Fem-Pop. 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 Walks with assistance of "furniture." Know ETOH with related admissions in the past. On glipizide, amlodipine, carvedilol, and clopidogrel but hasn't taken meds in three weeks. Still smokes Now admitted with chest pain, urinary frequency, dysuria, gait deterioration and increased Left leg/foot pain with walking. JOSE: Unkempt. Left carotid bruit. Cor: Reg. - Seema's NEURO: Mild OMS Speech sparse but fluent. Full confrontational visual strong. No facial. Gag OK Left drift. Mild Left hemiparesis (increased toen). Decreased ERICH's Left hand. Increased reflexes on left EXCEPT left AJ (NB: all right sided reflexes are normal including the AJ). Plantars are silent. No FTN dystaxia Normal vibration in feet. Unsteady gait. Left circumduction. IMP: s/p Right CVA with residual left hemiparesis Left carotid bruit. Possible Left S1 radiculopathy/ LS Spinal stenosis. SUGGEST: MRI of Brain and LS spine Carotid duplex doppler PM&R consultation and EMG/NCS of the legs and LS paraspinals. PT as directed. Podiatry consultation. Thank you very much, Cortez Castillo MD
[2016-10-18] MEDS ORDERED: PT OWN MED DRAWER 7, Y5N ONE (17:40)
[2016-10-18] MEDS: ACETAMINOPHEN 325 MG TABLET (FP) PO PRN (21:56)
[2016-10-19] MEDS: INSULIN SLIDING SCALE (NOVOLOG) 1 VIAL SQ SCH ×4 (06:01→21:01)
[2016-10-19 07:17] LABS: BASOPHIL 1.1 % (0-2.0); EOSINOPHIL 5.2 % (0-4.5); MCH 32.4 pg (25.7-33.7); MCHC 34.2 g/dl (32.0-35.9); MEAN CELL VOLUME 94.8 fl (80-96); MEAN PLT VOLUME 8.8 fl (7.5-11.1); NEUTROPHILS 69.7 % (42.8-82.8); PLATELET COUNT 182 K/MM3 (134-434); RDW 14.3 % (11.9-15.9); WHITE BLOOD COUNT 6.7 K/mm3 (4.0-10.0)
[2016-10-19 07:43] LABS: ALBUMIN 2.8 g/dl (3.4-5.0)
[2016-10-19 07:48] LABS: ALK PHOS 66 U/L (45-117); ANION GAP 9 (8-16); BILIRUBIN,TOTAL 0.3 mg/dL (0.2-1.0); CALCIUM 8.3 mg/dL (8.5-10.1); CO2 23 mmol/L (21-32); CREATININE 1.3 mg/dL (0.7-1.3); GLUCOSE,RANDOM 111 mg/dL (74-106); MAGNESIUM 1.9 mg/dL (1.8-2.4); SGOT/AST 12 U/L (15-37); SGPT/ALT 17 U/L (12-78); TOT PROT 5.5 g/dl (6.4-8.2)
[2016-10-19] MEDS: glipiZIDE-XL 5 MG TAB.ER.24 PO SCH (09:51)
[2016-10-19] MEDS: CLOPIDOGREL BISULFATE 75 MG TABLET (FP) PO SCH (09:51)
[2016-10-19] MEDS: FUROSEMIDE 40 MG/4 ML INJECTABLE VIAL IVPUSH SCH (09:52)
[2016-10-19] MEDS: RANOLAZINE E.R. 500 MG TABLET (FP) PO SCH ×2 (09:52→21:04)
[2016-10-19] MEDS: amLODIPine BESYLATE 5 MG TABLET (FP) PO SCH (09:52)
[2016-10-19] MEDS: ASPIRIN COATED 81 MG TABLET.EC PO SCH (09:52)
[2016-10-19] MEDS: CEFTRIAXONE 50 ML IVPB SCH (09:52)
[2016-10-19] MEDS: CARVEDILOL 25 MG TABLET (FP) PO SCH (09:52)
--- NOTE | 2016-10-19 09:54 | PN ---
Progress Note, Physician Chief Complaint: feeling better Diuresing TELE: NSR - Current Medication List Current Medications: Active Medications Acetaminophen (Tylenol -) 650 mg PO Q6H PRN PRN Reason: FEVER OR PAIN Last Admin: 10/18/16 21:56 Dose: 650 mg Amlodipine Besylate (Norvasc -) 5 mg PO DAILY [facility] Last Admin: 10/19/16 09:52 Dose: 5 mg Aspirin (Ecotrin -) 81 mg PO DAILY [facility] Last Admin: 10/19/16 09:52 Dose: 81 mg Carvedilol (Coreg -) 25 mg PO DAILY [facility] Last Admin: 10/19/16 09:52 Dose: 25 mg Clopidogrel Bisulfate (Plavix -) 75 mg PO DAILY [facility] Last Admin: 10/19/16 09:51 Dose: 75 mg Furosemide (Lasix Injection -) 40 mg IVPUSH DAILY [facility] Last Admin: 10/19/16 09:52 Dose: 40 mg Glipizide (Glucotrol Xl -) 5 mg PO AM [facility] Last Admin: 10/19/16 09:51 Dose: 5 mg Ceftriaxone Sodium (Rocephin 1gm Ivpb (Pre-Docked)) 50 mls @ 100 mls/hr IVPB DAILY [facility] Last Admin: 10/19/16 09:52 Dose: 100 mls/hr Insulin Aspart (Novolog Vial Sliding Scale -) 1 vial SQ ACHS [facility] PRN Reason: Protocol Last Admin: 10/19/16 06:01 Dose: Not Given Ranolazine (Ranexa -) 500 mg PO BID [facility] Last Admin: 10/19/16 09:52 Dose: 500 mg - Objective Vital Signs: Vital Signs Temperature 98.0 F 10/19/16 05:41 Pulse Rate 76 10/19/16 05:41 Respiratory Rate 19 10/19/16 05:41 Blood Pressure 140/64 10/19/16 05:41 O2 Sat by Pulse Oximetry (%) 100 10/18/16 21:00 Constitutional: Yes: No Distress Eyes: Yes: Conjunctiva Clear Cardiovascular: Yes: Regular Rate and Rhythm Respiratory: Yes: CTA Bilaterally Gastrointestinal: Yes: Soft Edema: Yes Neurological: Yes: Alert Labs: CBC, BMP 10/19/16 05:35 10/19/16 05:35 Laboratory Tests 10/19/16 10/19/16 05:35 05:35 WBC 6.7 Hgb 10.0 L Hct 29.3 L Plt Count 182 Sodium 141 Potassium 4.5 Creatinine 1.3 - ....Imaging Ultrasound: Report Reviewed (no dvt b/l) EKG: Image Reviewed Problem List - Problems (1) Chronic stable angina Code(s): I20.8 - OTHER FORMS OF ANGINA PECTORIS (2) ASHD (arteriosclerotic heart disease) Code(s): I25.10 - ATHSCL HEART DISEASE OF [place] CORONARY ARTERY W/O ANG PCTRS (3) PAD (peripheral artery disease) Code(s): I73.9 - PERIPHERAL VASCULAR DISEASE, UNSPECIFIED (4) Edema Code(s): R60.9 - EDEMA, UNSPECIFIED Qualifiers: Edema type: unspecified Qualified Code(s): R60.9 - Edema, unspecified (5) IDDM (insulin dependent diabetes mellitus) Code(s): E11.9 - TYPE 2 DIABETES MELLITUS WITHOUT COMPLICATIONS Z79.4 - FDC (CURRENT) USE OF 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 Cardiac enzymes negative x 3. 2. Echo with normal LV fxn with no regional abnormalities, + diastolic dysfx. Mild aortic root dilatation. 3. Continue Plavix 4. Ranexa added. 5. LE duplex negative for DVT 6. Continue IV Lasix, edema improving. 7. As per neuro, will order carotid US and MRI of Brain and Lumbosacral spine. Remote hx coronary PCI should not interfere with MRI.
[2016-10-19] MEDS ORDERED: INSULIN (NOVOLOG) ASPART 100 UNITS/ML 10ML VIAL ONE ×3 (12:15→16:47)
--- NOTE | 2016-10-19 13:38 | EKG ---
Test Reason : Blood Pressure : / mmHG Vent. Rate : 092 BPM Atrial Rate : 092 BPM P-R Int : 184 ms QRS Dur : 138 ms QT Int : 394 ms P-R-T Axes : 065 -56 067 degrees QTc Int : 487 ms NORMAL SINUS RHYTHM RIGHT BUNDLE BRANCH BLOCK LEFT ANTERIOR FASCICULAR BLOCK BIFASCICULAR BLOCK ABNORMAL ECG WHEN COMPARED WITH ECG OF 09-DEC-2015 00:56, NO SIGNIFICANT CHANGE WAS FOUND Confirmed by EDIS HUANG MD ([id number]) on 10/19/2016 1:38:11 PM Referred By: Confirmed By:EDIS HUANG MD
[2016-10-19] MEDS ORDERED: PT OWN MED DRAWER 7, Y5N ONE (16:46)
--- NOTE | 2016-10-19 16:54 | PN ---
Progress Note, Physician History of Present Illness: patient stable no new issues pain better - Current Medication List Current Medications: Active Medications Acetaminophen (Tylenol -) 650 mg PO Q6H PRN PRN Reason: FEVER OR PAIN Last Admin: 10/18/16 21:56 Dose: 650 mg Amlodipine Besylate (Norvasc -) 5 mg PO DAILY [facility] Last Admin: 10/19/16 09:52 Dose: 5 mg Aspirin (Ecotrin -) 81 mg PO DAILY [facility] Last Admin: 10/19/16 09:52 Dose: 81 mg Carvedilol (Coreg -) 25 mg PO DAILY [facility] Last Admin: 10/19/16 09:52 Dose: 25 mg Clopidogrel Bisulfate (Plavix -) 75 mg PO DAILY [facility] Last Admin: 10/19/16 09:51 Dose: 75 mg Furosemide (Lasix Injection -) 40 mg IVPUSH DAILY [facility] Last Admin: 10/19/16 09:52 Dose: 40 mg Glipizide (Glucotrol Xl -) 5 mg PO AM [facility] Last Admin: 10/19/16 09:51 Dose: 5 mg Ceftriaxone Sodium (Rocephin 1gm Ivpb (Pre-Docked)) 50 mls @ 100 mls/hr IVPB DAILY [facility] Last Admin: 10/19/16 09:52 Dose: 100 mls/hr Insulin Aspart (Novolog Vial Sliding Scale -) 1 vial SQ ACHS [facility] PRN Reason: Protocol Last Admin: 10/19/16 16:52 Dose: 2 units Ranolazine (Ranexa -) 500 mg PO BID [facility] Last Admin: 10/19/16 09:52 Dose: 500 mg - Objective Vital Signs: Vital Signs Temperature 98.0 F 10/19/16 14:45 Pulse Rate 70 10/19/16 14:45 Respiratory Rate 16 10/19/16 14:45 Blood Pressure 109/48 10/19/16 14:45 O2 Sat by Pulse Oximetry (%) 100 10/19/16 09:00 Constitutional: Yes: No Distress, Calm Cardiovascular: Yes: Regular Rate and Rhythm Respiratory: Yes: Regular, CTA Bilaterally Gastrointestinal: Yes: Normal Bowel Sounds, Soft Musculoskeletal: Yes: WNL Extremities: Yes: Other Edema: LLE: 2+, RLE: 2+ Neurological: Yes: Alert Psychiatric: Yes: Alert Labs: CBC, BMP 10/19/16 05:35 10/19/16 05:35 Assessment/Plan - Problems (1) Chronic stable angina Code(s): I20.8 - OTHER FORMS OF ANGINA PECTORIS (2) ASHD (arteriosclerotic heart disease) Code(s): I25.10 - ATHSCL HEART DISEASE OF [place] CORONARY ARTERY W/O ANG PCTRS (3) PAD (peripheral artery disease) Code(s): I73.9 - PERIPHERAL VASCULAR DISEASE, UNSPECIFIED (4) Edema Code(s): R60.9 - EDEMA, UNSPECIFIED Qualifiers: Edema type: unspecified Qualified Code(s): R60.9 - Edema, unspecified (5) IDDM (insulin dependent diabetes mellitus) Code(s): E11.9 - TYPE 2 DIABETES MELLITUS WITHOUT COMPLICATIONS Z79.4 - DISTRESSER (CURRENT) USE OF INSULIN (6) Diabetic neuropathy Code(s): E11.40 - TYPE 2 DIABETES MELLITUS WITH DIABETIC NEUROPATHY, UNSP Qualifiers: Diabetes mellitus type: due to underlying condition (7) Stroke Assessment/Plan: old CVA Code(s): I63.9 - CEREBRAL INFARCTION, UNSPECIFIED 8 r/o uti plan cx result noted continue current mgmt hydation cardio and neuro onboard rest as per primary will stop abx tomorrow
--- NOTE | 2016-10-19 23:23 | PN ---
Progress Note, Physician - Current Medication List Current Medications: Active Medications Acetaminophen (Tylenol -) 650 mg PO Q6H PRN PRN Reason: FEVER OR PAIN Last Admin: 10/18/16 21:56 Dose: 650 mg Amlodipine Besylate (Norvasc -) 5 mg PO DAILY [facility] Last Admin: 10/19/16 09:52 Dose: 5 mg Aspirin (Ecotrin -) 81 mg PO DAILY [facility] Last Admin: 10/19/16 09:52 Dose: 81 mg Carvedilol (Coreg -) 25 mg PO DAILY [facility] Last Admin: 10/19/16 09:52 Dose: 25 mg Clopidogrel Bisulfate (Plavix -) 75 mg PO DAILY [facility] Last Admin: 10/19/16 09:51 Dose: 75 mg Furosemide (Lasix Injection -) 40 mg IVPUSH DAILY [facility] Last Admin: 10/19/16 09:52 Dose: 40 mg Glipizide (Glucotrol Xl -) 5 mg PO AM [facility] Last Admin: 10/19/16 09:51 Dose: 5 mg Ceftriaxone Sodium (Rocephin 1gm Ivpb (Pre-Docked)) 50 mls @ 100 mls/hr IVPB DAILY [facility] Last Admin: 10/19/16 09:52 Dose: 100 mls/hr Insulin Aspart (Novolog Vial Sliding Scale -) 1 vial SQ ACHS [facility] PRN Reason: Protocol Last Admin: 10/19/16 21:01 Dose: Not Given Ranolazine (Ranexa -) 500 mg PO BID [facility] Last Admin: 10/19/16 21:04 Dose: 500 mg - Objective Vital Signs: Vital Signs Temperature 98.0 F 10/19/16 18:00 Pulse Rate 75 10/19/16 18:00 Respiratory Rate 18 10/19/16 18:00 Blood Pressure 115/55 10/19/16 18:00 O2 Sat by Pulse Oximetry (%) 100 10/19/16 09:00 Labs: CBC, BMP 10/19/16 05:35 10/19/16 05:35
[2016-10-19 23:34] LABS: URINE APPEARANCE CLEAR; URINE BILIRUBIN NEGATIVE (NEGATIVE); URINE BLOOD NEGATIVE (NEGATIVE); URINE COLOR LTYELLOW; URINE GLUCOSE (UA) 1+ (NEGATIVE); URINE KETONE NEGATIVE (NEGATIVE); URINE LEUK ESTERASE NEGATIVE (NEGATIVE); URINE NITRITE NEGATIVE (NEGATIVE); URINE UROBILINOGEN NEGATIVE E.U./dl (0.2-1.0)
[2016-10-19 23:45] LABS: URINE PROTEIN 3+ (NEGATIVE)
[2016-10-19 23:55] LABS: URINE MUCUS RARE; URINE RBC 1 /hpf (0-3); URINE WBC 1 /hpf (3-5)
[2016-10-20] MEDS: INSULIN SLIDING SCALE (NOVOLOG) 1 VIAL SQ SCH ×4 (06:16→22:45)
[2016-10-20] MEDS: glipiZIDE-XL 5 MG TAB.ER.24 PO SCH (08:40)
--- NOTE | 2016-10-20 09:48 | PN ---
Progress Note, Physician - Current Medication List Current Medications: Active Medications Acetaminophen (Tylenol -) 650 mg PO Q6H PRN PRN Reason: FEVER OR PAIN Last Admin: 10/18/16 21:56 Dose: 650 mg Amlodipine Besylate (Norvasc -) 5 mg PO DAILY [facility] Last Admin: 10/19/16 09:52 Dose: 5 mg Aspirin (Ecotrin -) 81 mg PO DAILY [facility] Last Admin: 10/19/16 09:52 Dose: 81 mg Carvedilol (Coreg -) 25 mg PO DAILY [facility] Last Admin: 10/19/16 09:52 Dose: 25 mg Clopidogrel Bisulfate (Plavix -) 75 mg PO DAILY [facility] Last Admin: 10/19/16 09:51 Dose: 75 mg Furosemide (Lasix Injection -) 40 mg IVPUSH DAILY [facility] Last Admin: 10/19/16 09:52 Dose: 40 mg Glipizide (Glucotrol Xl -) 5 mg PO AM [facility] Last Admin: 10/20/16 08:40 Dose: 5 mg Ceftriaxone Sodium (Rocephin 1gm Ivpb (Pre-Docked)) 50 mls @ 100 mls/hr IVPB DAILY [facility] Last Admin: 10/19/16 09:52 Dose: 100 mls/hr Insulin Aspart (Novolog Vial Sliding Scale -) 1 vial SQ ACHS [facility] PRN Reason: Protocol Last Admin: 10/20/16 06:16 Dose: Not Given Ranolazine (Ranexa -) 500 mg PO BID [facility] Last Admin: 10/19/16 21:04 Dose: 500 mg - Objective Vital Signs: Vital Signs Temperature 98.4 F 10/20/16 06:05 Pulse Rate 80 10/20/16 06:05 Respiratory Rate 18 10/20/16 06:05 Blood Pressure 138/63 10/20/16 06:05 O2 Sat by Pulse Oximetry (%) 100 10/19/16 21:00 Labs: CBC, BMP 10/19/16 05:35 10/19/16 05:35 Problem List - Problems (1) Chronic stable angina Code(s): I20.8 - OTHER FORMS OF ANGINA PECTORIS (2) ASHD (arteriosclerotic heart disease) Code(s): I25.10 - ATHSCL HEART DISEASE OF [place] CORONARY ARTERY W/O ANG PCTRS (3) PAD (peripheral artery disease) Code(s): I73.9 - PERIPHERAL VASCULAR DISEASE, UNSPECIFIED (4) Edema Code(s): R60.9 - EDEMA, UNSPECIFIED Qualifiers: Edema type: unspecified Qualified Code(s): R60.9 - Edema, unspecified (5) IDDM (insulin dependent diabetes mellitus) Code(s): E11.9 - TYPE 2 DIABETES MELLITUS WITHOUT COMPLICATIONS Z79.4 - SKILLED NURSING (CURRENT) USE OF INSULIN (6) Diabetic neuropathy Code(s): E11.40 - TYPE 2 DIABETES MELLITUS WITH DIABETIC NEUROPATHY, UNSP Qualifiers: Diabetes mellitus type: due to underlying condition (7) Stroke Code(s): I63.9 - CEREBRAL INFARCTION, UNSPECIFIED
--- NOTE | 2016-10-20 09:49 | PN ---
Progress Note, Physician Chief Complaint: no new complaints TELE: NSR Carotid noted History of Present Illness: no further chest pain - Current Medication List Current Medications: Active Medications Acetaminophen (Tylenol -) 650 mg PO Q6H PRN PRN Reason: FEVER OR PAIN Last Admin: 10/18/16 21:56 Dose: 650 mg Amlodipine Besylate (Norvasc -) 5 mg PO DAILY [facility] Last Admin: 10/19/16 09:52 Dose: 5 mg Aspirin (Ecotrin -) 81 mg PO DAILY [facility] Last Admin: 10/19/16 09:52 Dose: 81 mg Carvedilol (Coreg -) 25 mg PO DAILY [facility] Last Admin: 10/19/16 09:52 Dose: 25 mg Clopidogrel Bisulfate (Plavix -) 75 mg PO DAILY [facility] Last Admin: 10/19/16 09:51 Dose: 75 mg Furosemide (Lasix Injection -) 40 mg IVPUSH DAILY [facility] Last Admin: 10/19/16 09:52 Dose: 40 mg Glipizide (Glucotrol Xl -) 5 mg PO AM [facility] Last Admin: 10/20/16 08:40 Dose: 5 mg Ceftriaxone Sodium (Rocephin 1gm Ivpb (Pre-Docked)) 50 mls @ 100 mls/hr IVPB DAILY [facility] Last Admin: 10/19/16 09:52 Dose: 100 mls/hr Insulin Aspart (Novolog Vial Sliding Scale -) 1 vial SQ ACHS [facility] PRN Reason: Protocol Last Admin: 10/20/16 06:16 Dose: Not Given Ranolazine (Ranexa -) 500 mg PO BID [facility] Last Admin: 10/19/16 21:04 Dose: 500 mg - Objective Vital Signs: Vital Signs Temperature 98.4 F 10/20/16 06:05 Pulse Rate 80 10/20/16 06:05 Respiratory Rate 18 10/20/16 06:05 Blood Pressure 138/63 10/20/16 06:05 O2 Sat by Pulse Oximetry (%) 100 10/19/16 21:00 Constitutional: Yes: No Distress Eyes: Yes: Conjunctiva Clear Cardiovascular: Yes: Regular Rate and Rhythm Respiratory: Yes: CTA Bilaterally Gastrointestinal: Yes: Soft Edema: Yes Edema: LLE: 1+, RLE: 1+ Neurological: Yes: Alert Labs: CBC, BMP 10/19/16 05:35 06/21/17 05:35 Laboratory Tests 10/19/16 10/19/16 05:35 05:35 WBC 6.7 Hgb 10.0 L Plt Count 182 Potassium 4.5 Creatinine 1.3 Problem List - Problems (1) Chronic stable angina Code(s): I20.8 - OTHER FORMS OF ANGINA PECTORIS (2) ASHD (arteriosclerotic heart disease) Code(s): I25.10 - ATHSCL HEART DISEASE OF [place] CORONARY ARTERY W/O ANG PCTRS (3) PAD (peripheral artery disease) Code(s): I73.9 - PERIPHERAL VASCULAR DISEASE, UNSPECIFIED (4) Edema Code(s): R60.9 - EDEMA, UNSPECIFIED Qualifiers: Edema type: unspecified Qualified Code(s): R60.9 - Edema, unspecified (5) IDDM (insulin dependent diabetes mellitus) Code(s): E11.9 - TYPE 2 DIABETES MELLITUS WITHOUT COMPLICATIONS 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 Cardiac enzymes negative x 3. 2. Echo with normal LV fxn with no regional abnormalities, + diastolic dysfx. Mild aortic root dilatation. 3. Continue Plavix 4. Ranexa added with no further chest pain. 5. LE duplex negative for DVT 6. Continue IV Lasix, edema improving. 7. As per neuro, ordered MRI of Brain and Lumbosacral spine. Remote hx coronary PCI should not interfere with MRI. Carotid US shows T.O BERTRAND and moderate stenosis LICA, will continue Plavix and add statin. Vascular following. 8. Should have stress test after MRIs are completed and once etiology of leg weakness is clarified.
[2016-10-20] MEDS: CEFTRIAXONE 50 ML IVPB SCH (10:03)
[2016-10-20] MEDS: FUROSEMIDE 40 MG/4 ML INJECTABLE VIAL IVPUSH SCH (10:03)
[2016-10-20] MEDS: ASPIRIN COATED 81 MG TABLET.EC PO SCH (10:04)
[2016-10-20] MEDS: CARVEDILOL 25 MG TABLET (FP) PO SCH (10:04)
[2016-10-20] MEDS: CLOPIDOGREL BISULFATE 75 MG TABLET (FP) PO SCH (10:04)
[2016-10-20] MEDS: amLODIPine BESYLATE 5 MG TABLET (FP) PO SCH (10:04)
[2016-10-20] MEDS: RANOLAZINE E.R. 500 MG TABLET (FP) PO SCH ×2 (10:04→22:45)
[2016-10-20] MEDS ORDERED: INSULIN (NOVOLOG) ASPART 100 UNITS/ML 10ML VIAL ONE (12:01)
[2016-10-20] MEDS ORDERED: PT OWN MED DRAWER 7, Y5N ONE (12:01)
--- NOTE | 2016-10-20 12:11 | CONSULT ---
Consult - text type - Consultation Consultation Note: Podiatry Consultation: 56 year old DM M, history of CVA x 6 years, CAD s/p stent, presents for admission with chest pain x 1 day upon admission. Patient recently admitted to the hospital for ETOH intoxication. Podiatry consultation requested for trimming of elongated, discolored, thickened, tender toe nails x 10. Patient NIDDM. He states that sugars are fairly well controlled. Currently afebrile, VSS. PMHx: CVA x 6 years, CAD s/p stent on AC, s/p LLE bypass (Dr. Humphrey), KETTY: Bilateral feet: pedal pulses non-palpable, TG wnl, CFT brisk to all toes. Nails are elongated, discolored, thickened, overgrown, tender with subungual debris x 10. Moderate tenderness to palpation of nail units. No open wounds, no signs of active infection. Epicritic sensation grossly diminished to bilateral feet. Imp: 56 year old DM M with peripheral neuropathy and onychomycosis 1. Manual debridement of mycotic nails x 10 with nail nipper. Pt tolerated procedure without complications. 2. Proper DM foot hygiene discussed. 3. Upon discharge will f/u with me in [facility] in 3 months for further evaluation. Jose Sam DPM
--- NOTE | 2016-10-20 15:35 | PN ---
Progress Note, Physician History of Present Illness: says he is feeling slightly better no complaints podiatry note noted - Current Medication List Current Medications: Active Medications Acetaminophen (Tylenol -) 650 mg PO Q6H PRN PRN Reason: FEVER OR PAIN Last Admin: 10/18/16 21:56 Dose: 650 mg Amlodipine Besylate (Norvasc -) 5 mg PO DAILY [facility] Last Admin: 10/20/16 10:04 Dose: 5 mg Aspirin (Ecotrin -) 81 mg PO DAILY [facility] Last Admin: 10/20/16 10:04 Dose: 81 mg Atorvastatin Calcium (Lipitor -) 20 mg PO HS [facility] Carvedilol (Coreg -) 25 mg PO DAILY [facility] Last Admin: 10/20/16 10:04 Dose: 25 mg Clopidogrel Bisulfate (Plavix -) 75 mg PO DAILY [facility] Last Admin: 10/20/16 10:04 Dose: 75 mg Furosemide (Lasix Injection -) 40 mg IVPUSH DAILY [facility] Last Admin: 10/20/16 10:03 Dose: 40 mg Glipizide (Glucotrol Xl -) 5 mg PO AM [facility] Last Admin: 10/20/16 08:40 Dose: 5 mg Ceftriaxone Sodium (Rocephin 1gm Ivpb (Pre-Docked)) 50 mls @ 100 mls/hr IVPB DAILY [facility] Last Admin: 10/20/16 10:03 Dose: 100 mls/hr Insulin Aspart (Novolog Vial Sliding Scale -) 1 vial SQ ACHS [facility] PRN Reason: Protocol Last Admin: 10/20/16 12:01 Dose: 4 units Ranolazine (Ranexa -) 500 mg PO BID [facility] Last Admin: 10/20/16 10:04 Dose: 500 mg - Objective Vital Signs: Vital Signs Temperature 98.5 F 10/20/16 14:21 Pulse Rate 67 10/20/16 14:21 Respiratory Rate 18 10/20/16 14:21 Blood Pressure 113/57 10/20/16 14:21 O2 Sat by Pulse Oximetry (%) 100 10/20/16 09:00 Constitutional: Yes: No Distress, Calm Cardiovascular: Yes: S1, S2 Respiratory: Yes: Regular, CTA Bilaterally Gastrointestinal: Yes: Normal Bowel Sounds, Soft Musculoskeletal: Yes: WNL Extremities: Yes: WNL Neurological: Yes: Alert, Oriented Psychiatric: Yes: Alert, Oriented Labs: CBC, BMP 10/19/16 05:35 10/19/16 05:35 Assessment/Plan - Problems (1) Chronic stable angina Code(s): I20.8 - OTHER FORMS OF ANGINA PECTORIS (2) ASHD (arteriosclerotic heart disease) Code(s): I25.10 - ATHSCL HEART DISEASE OF [place] CORONARY ARTERY W/O ANG PCTRS (3) PAD (peripheral artery disease) Code(s): I73.9 - PERIPHERAL VASCULAR DISEASE, UNSPECIFIED (4) Edema Code(s): R60.9 - EDEMA, UNSPECIFIED Qualifiers: Edema type: unspecified Qualified Code(s): R60.9 - Edema, unspecified (5) IDDM (insulin dependent diabetes mellitus) Code(s): E11.9 - TYPE 2 DIABETES MELLITUS WITHOUT COMPLICATIONS Z79.4 - RESIDENTIAL (CURRENT) USE OF INSULIN (6) Diabetic neuropathy Code(s): E11.40 - TYPE 2 DIABETES MELLITUS WITH DIABETIC NEUROPATHY, UNSP Qualifiers: Diabetes mellitus type: due to underlying condition (7) Stroke Assessment/Plan: old CVA Code(s): I63.9 - CEREBRAL INFARCTION, UNSPECIFIED 8 r/o uti 9 gm positive bacteremia patients blood cx growing gram positive organism plan continue current mgmt will stop ceftriaxone started on vanco will await for identification of the organism
[2016-10-20] MEDS ORDERED: VANCOMYCIN 1,250 MG in DEXTROSE 5%-WATER - 250 ML IVPB SCH (17:00)
--- NOTE | 2016-10-20 18:56 | PN ---
Progress Note (short form) - Note Progress Note: Vascular Surgery Pt seen and examined. 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 Documented on other studies. Left internal carotid with peak systolic veloicity of 160. Pt has less than 50% stenosis in the left ICA. No need for any surgery Medical management. Matt Sarmiento DO
[2016-10-20] MEDS: ATORVASTATIN CA 20 MG TABLET (FP) PO SCH (22:45)
[2016-10-20] MEDS: ACETAMINOPHEN 325 MG TABLET (FP) PO PRN (22:45)
--- NOTE | 2016-10-21 00:30 | PN ---
Progress Note, Physician History of Present Illness: Pt seen and examined 10/20/16 however note is being entered now - Current Medication List Current Medications: Active Medications Acetaminophen (Tylenol -) 650 mg PO Q6H PRN PRN Reason: FEVER OR PAIN Last Admin: 10/20/16 22:45 Dose: 650 mg Amlodipine Besylate (Norvasc -) 5 mg PO DAILY [facility] Last Admin: 10/20/16 10:04 Dose: 5 mg Aspirin (Ecotrin -) 81 mg PO DAILY [facility] Last Admin: 10/20/16 10:04 Dose: 81 mg Atorvastatin Calcium (Lipitor -) 20 mg PO HS [facility] Last Admin: 10/20/16 22:45 Dose: 20 mg Carvedilol (Coreg -) 25 mg PO DAILY [facility] Last Admin: 10/20/16 10:04 Dose: 25 mg Clopidogrel Bisulfate (Plavix -) 75 mg PO DAILY [facility] Last Admin: 10/20/16 10:04 Dose: 75 mg Furosemide (Lasix Injection -) 40 mg IVPUSH DAILY [facility] Last Admin: 10/20/16 10:03 Dose: 40 mg Glipizide (Glucotrol Xl -) 5 mg PO AM [facility] Last Admin: 10/20/16 08:40 Dose: 5 mg Vancomycin HCl 1,250 mg/ (Dextrose) 250 mls @ 166.667 mls/hr IVPB DAILY@1700 [facility] PRN Reason: Protocol Last Admin: 10/20/16 16:50 Dose: 166.667 mls/hr Insulin Aspart (Novolog Vial Sliding Scale -) 1 vial SQ ACHS [facility] PRN Reason: Protocol Last Admin: 10/20/16 22:45 Dose: Not Given Ranolazine (Ranexa -) 500 mg PO BID [facility] Last Admin: 10/20/16 22:45 Dose: 500 mg - Objective Vital Signs: Vital Signs Temperature 98.1 F 10/20/16 18:30 Pulse Rate 80 10/20/16 18:30 Respiratory Rate 18 10/20/16 18:30 Blood Pressure 126/58 10/20/16 18:30 O2 Sat by Pulse Oximetry (%) 100 10/20/16 09:00 Labs: CBC, BMP 10/19/16 05:35 10/19/16 05:35
[2016-10-21] MEDS: glipiZIDE-XL 5 MG TAB.ER.24 PO SCH (06:27)
[2016-10-21] MEDS: INSULIN SLIDING SCALE (NOVOLOG) 1 VIAL SQ SCH ×4 (06:29→22:04)
[2016-10-21] MEDS ORDERED: INSULIN (NOVOLOG) ASPART 100 UNITS/ML 10ML VIAL ONE (06:38)
--- NOTE | 2016-10-21 09:02 | PN ---
Progress Note, Physician Chief Complaint: feeling better No chest pain walking down halls. Awaits MRI Vascular input noted. - Current Medication List Current Medications: Active Medications Acetaminophen (Tylenol -) 650 mg PO Q6H PRN PRN Reason: FEVER OR PAIN Last Admin: 10/20/16 22:45 Dose: 650 mg Amlodipine Besylate (Norvasc -) 5 mg PO DAILY [facility] Last Admin: 10/20/16 10:04 Dose: 5 mg Aspirin (Ecotrin -) 81 mg PO DAILY [facility] Last Admin: 10/20/16 10:04 Dose: 81 mg Atorvastatin Calcium (Lipitor -) 20 mg PO HS [facility] Last Admin: 10/20/16 22:45 Dose: 20 mg Carvedilol (Coreg -) 25 mg PO DAILY [facility] Last Admin: 10/20/16 10:04 Dose: 25 mg Clopidogrel Bisulfate (Plavix -) 75 mg PO DAILY [facility] Last Admin: 10/20/16 10:04 Dose: 75 mg Furosemide (Lasix Injection -) 40 mg IVPUSH DAILY [facility] Last Admin: 10/20/16 10:03 Dose: 40 mg Glipizide (Glucotrol Xl -) 5 mg PO AM [facility] Last Admin: 10/21/16 06:27 Dose: 5 mg Vancomycin HCl 1,250 mg/ (Dextrose) 250 mls @ 166.667 mls/hr IVPB DAILY@1700 [facility] PRN Reason: Protocol Last Admin: 10/20/16 16:50 Dose: 166.667 mls/hr Insulin Aspart (Novolog Vial Sliding Scale -) 1 vial SQ ACHS [facility] PRN Reason: Protocol Last Admin: 10/21/16 06:29 Dose: Not Given Ranolazine (Ranexa -) 500 mg PO BID [facility] Last Admin: 10/20/16 22:45 Dose: 500 mg - Objective Vital Signs: Vital Signs Temperature 98.1 F 10/21/16 07:10 Pulse Rate 81 10/21/16 07:10 Respiratory Rate 20 10/21/16 07:10 Blood Pressure 130/58 10/21/16 07:10 O2 Sat by Pulse Oximetry (%) 94 L 10/20/16 22:00 Constitutional: Yes: Calm Cardiovascular: Yes: Regular Rate and Rhythm Respiratory: Yes: CTA Bilaterally Gastrointestinal: Yes: Soft Edema: Yes Edema: LLE: 1+, RLE: 1+ Neurological: Yes: Alert Labs: CBC, BMP 10/19/16 05:35 10/19/16 05:35 - ....Imaging Other: Image Reviewed (TELE: NSR) Problem List - Problems (1) Chronic stable angina Code(s): I20.8 - OTHER FORMS OF ANGINA PECTORIS (2) ASHD (arteriosclerotic heart disease) Code(s): I25.10 - ATHSCL HEART DISEASE OF [place] CORONARY ARTERY W/O ANG PCTRS (3) PAD (peripheral artery disease) Code(s): I73.9 - PERIPHERAL VASCULAR DISEASE, UNSPECIFIED (4) Edema Code(s): R60.9 - EDEMA, UNSPECIFIED Qualifiers: Edema type: unspecified Qualified Code(s): R60.9 - Edema, unspecified (5) IDDM (insulin dependent diabetes mellitus) Code(s): E11.9 - TYPE 2 DIABETES MELLITUS WITHOUT COMPLICATIONS Z79.4 - DETENTION (CURRENT) USE OF INSULIN (6) Diabetic neuropathy Code(s): E11.40 - TYPE 2 DIABETES MELLITUS WITH DIABETIC NEUROPATHY, UNSP Qualifiers: Diabetes mellitus type: due to underlying condition (7) Stroke Code(s): I63.9 - CEREBRAL INFARCTION, UNSPECIFIED Assessment/Plan IMP: Known CAD s/p PCIs, chronic stable angina with possible recent worsening of stable complex Asymmetric LE edema, possibly due to acute on chronic diastolic CHF PAD DM Prior CVA REC: Anginal symptoms chronic, and seem to have improved with addition of Ranexa. Moderate unilateral carotid stenosis (with T.O on right)- to be medically managed, appreciate Vascular input. Awaits MRI L-S spine, to evaluate etiology of LE weakness and parasthesia. Should have stress test, can be done prior to discharge or as outpatient in next several weeks.
[2016-10-21 09:21] LABS: CHOLESTEROL 197 mg/dL (50-200); LDL CHOLESTEROL (ONLY SJRH) 137 mg/dL (5-100)
[2016-10-21] MEDS: amLODIPine BESYLATE 5 MG TABLET (FP) PO SCH (10:59)
[2016-10-21] MEDS: CLOPIDOGREL BISULFATE 75 MG TABLET (FP) PO SCH (10:59)
[2016-10-21] MEDS: RANOLAZINE E.R. 500 MG TABLET (FP) PO SCH ×2 (10:59→22:04)
[2016-10-21] MEDS: ASPIRIN COATED 81 MG TABLET.EC PO SCH (10:59)
[2016-10-21] MEDS: FUROSEMIDE 40 MG/4 ML INJECTABLE VIAL IVPUSH SCH (10:59)
[2016-10-21] MEDS: CARVEDILOL 25 MG TABLET (FP) PO SCH (11:01)
--- NOTE | 2016-10-21 16:29 | PN ---
Progress Note, Physician History of Present Illness: patient stable no complaints says he walked - Current Medication List Current Medications: Active Medications Acetaminophen (Tylenol -) 650 mg PO Q6H PRN PRN Reason: FEVER OR PAIN Last Admin: 10/20/16 22:45 Dose: 650 mg Amlodipine Besylate (Norvasc -) 5 mg PO DAILY [facility] Last Admin: 10/21/16 10:59 Dose: 5 mg Aspirin (Ecotrin -) 81 mg PO DAILY [facility] Last Admin: 10/21/16 10:59 Dose: 81 mg Atorvastatin Calcium (Lipitor -) 20 mg PO HS [facility] Last Admin: 10/20/16 22:45 Dose: 20 mg Carvedilol (Coreg -) 25 mg PO DAILY [facility] Last Admin: 10/21/16 11:01 Dose: 25 mg Clopidogrel Bisulfate (Plavix -) 75 mg PO DAILY [facility] Last Admin: 10/21/16 10:59 Dose: 75 mg Furosemide (Lasix Injection -) 40 mg IVPUSH DAILY [facility] Last Admin: 10/21/16 10:59 Dose: 40 mg Glipizide (Glucotrol Xl -) 5 mg PO AM [facility] Last Admin: 10/21/16 06:27 Dose: 5 mg Insulin Aspart (Novolog Vial Sliding Scale -) 1 vial SQ ACHS [facility] PRN Reason: Protocol Last Admin: 10/21/16 11:30 Dose: Not Given Ranolazine (Ranexa -) 500 mg PO BID [facility] Last Admin: 10/21/16 10:59 Dose: 500 mg - Objective Vital Signs: Vital Signs Temperature 98.1 F 10/21/16 15:29 Pulse Rate 73 10/21/16 15:29 Respiratory Rate 20 10/21/16 15:29 Blood Pressure 107/52 10/21/16 15:29 O2 Sat by Pulse Oximetry (%) 94 L 10/21/16 09:00 Constitutional: Yes: No Distress, Calm Cardiovascular: Yes: Regular Rate and Rhythm Respiratory: Yes: Regular, CTA Bilaterally Gastrointestinal: Yes: Normal Bowel Sounds, Soft Musculoskeletal: Yes: WNL Extremities: Yes: WNL Neurological: Yes: Alert, Oriented Psychiatric: Yes: Alert Labs: CBC, BMP 10/19/16 05:35 10/19/16 05:35 Assessment/Plan - Problems (1) Chronic stable angina Code(s): I20.8 - OTHER FORMS OF ANGINA PECTORIS (2) ASHD (arteriosclerotic heart disease) Code(s): I25.10 - ATHSCL HEART DISEASE OF [place] CORONARY ARTERY W/O ANG PCTRS (3) PAD (peripheral artery disease) Code(s): I73.9 - PERIPHERAL VASCULAR DISEASE, UNSPECIFIED (4) Edema Code(s): R60.9 - EDEMA, UNSPECIFIED Qualifiers: Edema type: unspecified Qualified Code(s): R60.9 - Edema, unspecified (5) IDDM (insulin dependent diabetes mellitus) Code(s): E11.9 - TYPE 2 DIABETES MELLITUS WITHOUT COMPLICATIONS Z79.4 - LONG-TERM (CURRENT) USE OF INSULIN (6) Diabetic neuropathy Code(s): E11.40 - TYPE 2 DIABETES MELLITUS WITH DIABETIC NEUROPATHY, UNSP Qualifiers: Diabetes mellitus type: due to underlying condition (7) Stroke Assessment/Plan: old CVA Code(s): I63.9 - CEREBRAL INFARCTION, UNSPECIFIED 8 r/o uti 9 gm positive bacteremia patients blood cx growing gram positive organism plan stopped vanco repeat blood cx send patient stable rest as per primary
[2016-10-21] MEDS: ATORVASTATIN CA 20 MG TABLET (FP) PO SCH (22:04)
--- NOTE | 2016-10-21 23:28 | PN ---
Progress Note, Physician - Current Medication List Current Medications: Active Medications Acetaminophen (Tylenol -) 650 mg PO Q6H PRN PRN Reason: FEVER OR PAIN Last Admin: 10/20/16 22:45 Dose: 650 mg Amlodipine Besylate (Norvasc -) 5 mg PO DAILY [facility] Last Admin: 10/21/16 10:59 Dose: 5 mg Aspirin (Ecotrin -) 81 mg PO DAILY [facility] Last Admin: 10/21/16 10:59 Dose: 81 mg Atorvastatin Calcium (Lipitor -) 20 mg PO HS [facility] Last Admin: 10/21/16 22:04 Dose: 20 mg Carvedilol (Coreg -) 25 mg PO DAILY [facility] Last Admin: 10/21/16 11:01 Dose: 25 mg Clopidogrel Bisulfate (Plavix -) 75 mg PO DAILY [facility] Last Admin: 10/21/16 10:59 Dose: 75 mg Furosemide (Lasix Injection -) 40 mg IVPUSH DAILY [facility] Last Admin: 10/21/16 10:59 Dose: 40 mg Glipizide (Glucotrol Xl -) 5 mg PO AM [facility] Last Admin: 10/21/16 06:27 Dose: 5 mg Insulin Aspart (Novolog Vial Sliding Scale -) 1 vial SQ ACHS [facility] PRN Reason: Protocol Last Admin: 10/21/16 22:04 Dose: Not Given Ranolazine (Ranexa -) 500 mg PO BID [facility] Last Admin: 10/21/16 22:04 Dose: 500 mg - Objective Vital Signs: Vital Signs Temperature 98.7 F 10/21/16 22:07 Pulse Rate 76 10/21/16 22:07 Respiratory Rate 16 10/21/16 22:07 Blood Pressure 141/72 10/21/16 22:07 O2 Sat by Pulse Oximetry (%) 94 L 10/21/16 09:00 Labs: CBC, BMP 10/19/16 05:35 10/19/16 05:35
[2016-10-22] MEDS: glipiZIDE-XL 5 MG TAB.ER.24 PO SCH (06:14)
[2016-10-22] MEDS: INSULIN SLIDING SCALE (NOVOLOG) 1 VIAL SQ SCH ×4 (06:14→21:15)
[2016-10-22 08:31] LABS: BASOPHIL 0.7 % (0-2.0); EOSINOPHIL 3.7 % (0-4.5); MCH 32.9 pg (25.7-33.7); MCHC 34.7 g/dl (32.0-35.9); MEAN CELL VOLUME 94.7 fl (80-96); MEAN PLT VOLUME 8.9 fl (7.5-11.1); NEUTROPHILS 73.6 % (42.8-82.8); PLATELET COUNT 174 K/MM3 (134-434); RDW 14.2 % (11.9-15.9); WHITE BLOOD COUNT 7.2 K/mm3 (4.0-10.0)
[2016-10-22 08:46] LABS: ALBUMIN 2.9 g/dl (3.4-5.0); ANION GAP 7 (8-16); CALCIUM 8.6 mg/dL (8.5-10.1); CO2 26 mmol/L (21-32); CREATININE 1.8 mg/dL (0.7-1.3); GLUCOSE,RANDOM 84 mg/dL (74-106); SGOT/AST 15 U/L (15-37); SGPT/ALT 19 U/L (12-78)
[2016-10-22 08:47] LABS: ALK PHOS 64 U/L (45-117); BILIRUBIN,TOTAL 0.5 mg/dL (0.2-1.0); TOT PROT 5.8 g/dl (6.4-8.2)
[2016-10-22] MEDS ORDERED: PT OWN MED DRAWER 7, Y5N ONE (09:48)
[2016-10-22] MEDS: FUROSEMIDE 40 MG/4 ML INJECTABLE VIAL IVPUSH SCH (10:02)
[2016-10-22] MEDS: ASPIRIN COATED 81 MG TABLET.EC PO SCH (10:02)
[2016-10-22] MEDS: CARVEDILOL 25 MG TABLET (FP) PO SCH (10:02)
[2016-10-22] MEDS: amLODIPine BESYLATE 5 MG TABLET (FP) PO SCH (10:02)
[2016-10-22] MEDS: RANOLAZINE E.R. 500 MG TABLET (FP) PO SCH ×2 (10:02→21:14)
[2016-10-22] MEDS: CLOPIDOGREL BISULFATE 75 MG TABLET (FP) PO SCH (10:02)
--- NOTE | 2016-10-22 14:10 | PN ---
Progress Note, Physician History of Present Illness: stable no new issues no events - Current Medication List Current Medications: Active Medications Acetaminophen (Tylenol -) 650 mg PO Q6H PRN PRN Reason: FEVER OR PAIN Last Admin: 10/20/16 22:45 Dose: 650 mg Amlodipine Besylate (Norvasc -) 5 mg PO DAILY [facility] Last Admin: 10/22/16 10:02 Dose: 5 mg Aspirin (Ecotrin -) 81 mg PO DAILY [facility] Last Admin: 10/22/16 10:02 Dose: 81 mg Atorvastatin Calcium (Lipitor -) 20 mg PO HS [facility] Last Admin: 10/21/16 22:04 Dose: 20 mg Carvedilol (Coreg -) 25 mg PO DAILY [facility] Last Admin: 10/22/16 10:02 Dose: 25 mg Clopidogrel Bisulfate (Plavix -) 75 mg PO DAILY [facility] Last Admin: 10/22/16 10:02 Dose: 75 mg Furosemide (Lasix Injection -) 40 mg IVPUSH DAILY [facility] Last Admin: 10/22/16 10:02 Dose: 40 mg Glipizide (Glucotrol Xl -) 5 mg PO AM [facility] Last Admin: 10/22/16 06:14 Dose: 5 mg Insulin Aspart (Novolog Vial Sliding Scale -) 1 vial SQ ACHS [facility] PRN Reason: Protocol Last Admin: 10/22/16 12:25 Dose: 4 units Ranolazine (Ranexa -) 500 mg PO BID [facility] Last Admin: 10/22/16 10:02 Dose: 500 mg - Objective Vital Signs: Vital Signs Temperature 98.3 F 10/22/16 13:39 Pulse Rate 70 10/22/16 13:39 Respiratory Rate 18 10/22/16 13:39 Blood Pressure 99/65 10/22/16 13:39 O2 Sat by Pulse Oximetry (%) 95 10/22/16 09:00 Constitutional: Yes: No Distress, Calm Cardiovascular: Yes: Regular Rate and Rhythm Respiratory: Yes: Regular, CTA Bilaterally Gastrointestinal: Yes: Normal Bowel Sounds, Soft Musculoskeletal: Yes: WNL Extremities: Yes: WNL Neurological: Yes: Alert, Oriented Psychiatric: Yes: Alert Labs: CBC, BMP 10/22/16 06:00 10/22/16 06:00 Assessment/Plan - Problems (1) Chronic stable angina Code(s): I20.8 - OTHER FORMS OF ANGINA PECTORIS (2) ASHD (arteriosclerotic heart disease) Code(s): I25.10 - ATHSCL HEART DISEASE OF [place] CORONARY ARTERY W/O ANG PCTRS (3) PAD (peripheral artery disease) Code(s): I73.9 - PERIPHERAL VASCULAR DISEASE, UNSPECIFIED (4) Edema Code(s): R60.9 - EDEMA, UNSPECIFIED Qualifiers: Edema type: unspecified Qualified Code(s): R60.9 - Edema, unspecified (5) IDDM (insulin dependent diabetes mellitus) Code(s): E11.9 - TYPE 2 DIABETES MELLITUS WITHOUT COMPLICATIONS Z79.4 - CORRECTION (CURRENT) USE OF INSULIN (6) Diabetic neuropathy Code(s): E11.40 - TYPE 2 DIABETES MELLITUS WITH DIABETIC NEUROPATHY, UNSP Qualifiers: Diabetes mellitus type: due to underlying condition (7) Stroke Assessment/Plan: old CVA Code(s): I63.9 - CEREBRAL INFARCTION, UNSPECIFIED 8 r/o uti 9 gm positive bacteremia patients blood cx growing gram positive organism plan await for repeat blood cx continue rest as per cardio and primary
[2016-10-22] MEDS: ATORVASTATIN CA 20 MG TABLET (FP) PO SCH (21:14)
[2016-10-23] MEDS: glipiZIDE-XL 5 MG TAB.ER.24 PO SCH (06:29)
[2016-10-23] MEDS: INSULIN SLIDING SCALE (NOVOLOG) 1 VIAL SQ SCH ×4 (06:29→21:24)
[2016-10-23] MEDS: CLOPIDOGREL BISULFATE 75 MG TABLET (FP) PO SCH (09:00)
[2016-10-23] MEDS: FUROSEMIDE 40 MG/4 ML INJECTABLE VIAL IVPUSH SCH (09:00)
[2016-10-23] MEDS: CARVEDILOL 25 MG TABLET (FP) PO SCH (09:00)
[2016-10-23] MEDS: amLODIPine BESYLATE 5 MG TABLET (FP) PO SCH (09:00)
[2016-10-23] MEDS: RANOLAZINE E.R. 500 MG TABLET (FP) PO SCH ×2 (09:00→21:24)
[2016-10-23] MEDS: ASPIRIN COATED 81 MG TABLET.EC PO SCH (09:00)
[2016-10-23] MEDS ORDERED: INSULIN (NOVOLOG) ASPART 100 UNITS/ML 10ML VIAL ONE (11:17)
--- NOTE | 2016-10-23 16:25 | PN ---
Progress Note, Physician Chief Complaint: Pt A&o3; denies chest pain or dyspnea; feels weak, with lower back pain. 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 Worsening of his chronic stable angina. Describes chronic exertional chest pain for "months" which lasted longer yesterday. Was walking [place] [facility] to [facility] (several miles) and developed substernal tightness which was relieved with rest, but lasted longer than his usual few minutes. No dyspnea. non palps. 2. Worsening LE edema for few weeks, L>>R 3. Pain and "numbness" of his LE limiting his ability to walk. 4. Dysuria Denies fever, chills. Denies syncope. No abdominal pain or diarrhea. - Current Medication List Current Medications: Active Medications Acetaminophen (Tylenol -) 650 mg PO Q6H PRN PRN Reason: FEVER OR PAIN Last Admin: 10/20/16 22:45 Dose: 650 mg Amlodipine Besylate (Norvasc -) 5 mg PO DAILY [facility] Last Admin: 10/23/16 09:00 Dose: 5 mg Aspirin (Ecotrin -) 81 mg PO DAILY [facility] Last Admin: 10/23/16 09:00 Dose: 81 mg Atorvastatin Calcium (Lipitor -) 20 mg PO HS [facility] Last Admin: 10/22/16 21:14 Dose: 20 mg Carvedilol (Coreg -) 25 mg PO DAILY [facility] Last Admin: 10/23/16 09:00 Dose: 25 mg Clopidogrel Bisulfate (Plavix -) 75 mg PO DAILY [facility] Last Admin: 10/23/16 09:00 Dose: 75 mg Furosemide (Lasix Injection -) 40 mg IVPUSH DAILY [facility] Last Admin: 10/23/16 09:00 Dose: 40 mg Glipizide (Glucotrol Xl -) 5 mg PO AM [facility] Last Admin: 10/23/16 06:29 Dose: 5 mg Insulin Aspart (Novolog Vial Sliding Scale -) 1 vial SQ ACHS [facility] PRN Reason: Protocol Last Admin: 10/23/16 11:51 Dose: 4 units Ranolazine (Ranexa -) 500 mg PO BID [facility] Last Admin: 10/23/16 09:00 Dose: 500 mg - Objective Vital Signs: Vital Signs Temperature 98.3 F 10/23/16 14:25 Pulse Rate 72 10/23/16 14:25 Respiratory Rate 18 10/23/16 14:25 Blood Pressure 129/69 10/23/16 14:25 O2 Sat by Pulse Oximetry (%) 95 10/23/16 09:00 Constitutional: Yes: Anxious Eyes: Yes: WNL HENT: Yes: WNL Neck: Yes: WNL Cardiovascular: Yes: Regular Rate and Rhythm, S1, S2 (split), S4 Respiratory: Yes: Regular Gastrointestinal: Yes: Soft ...Rectal Exam: Yes: Deferred Genitourinary: No: Anuria Musculoskeletal: Yes: Back Pain, Muscle Weakness Extremities: Yes: Cool Edema: No Peripheral Pulses WNL: Yes Integumentary: Yes: WNL Neurological: Yes: WNL Psychiatric: Yes: Other (anxiety) Labs: CBC, BMP 10/22/16 06:00 10/22/16 06:00 - ....Imaging EKG: Image Reviewed (NSR; RBBB; LAFB) Problem List - Problems (1) ASHD (arteriosclerotic heart disease) Code(s): I25.10 - ATHSCL HEART DISEASE OF [place] CORONARY ARTERY W/O ANG PCTRS (2) Chronic stable angina Assessment/Plan: no further chest pain since Ranexa added. Change carvedilol to bid dosing for better 24 hour coverage. for stress MIBI. Code(s): I20.8 - OTHER FORMS OF ANGINA PECTORIS (3) Diabetic neuropathy Code(s): E11.40 - TYPE 2 DIABETES MELLITUS WITH DIABETIC NEUROPATHY, UNSP Qualifiers: Diabetes mellitus type: due to underlying condition (4) HTN (hypertension) Code(s): I10 - ESSENTIAL (PRIMARY) HYPERTENSION (5) History of arterial bypass of lower extremity Code(s): Z95.828 - PRESENCE OF OTHER VASCULAR IMPLANTS AND GRAFTS (6) PAD (peripheral artery disease) Code(s): I73.9 - PERIPHERAL VASCULAR DISEASE, UNSPECIFIED (7) Lower back pain Assessment/Plan: MRI: thoraco-lumbar disc herniations. Stress MIBI will likely have to be pharmacologic, as pt has back pain and limited ambulation. Code(s): M54.5 - LOW BACK PAIN (8) Hyperlipidemia Assessment/Plan: LDL cholesterol 137-->statin. Diet modification, increase exercise emphasized. Code(s): E78.5 - HYPERLIPIDEMIA, UNSPECIFIED (9) Stroke Assessment/Plan: Brain MRI: old cerebral infarcts. Aggressive lipid control. Code(s): I63.9 - CEREBRAL INFARCTION, UNSPECIFIED
[2016-10-23] MEDS: ATORVASTATIN CA 20 MG TABLET (FP) PO SCH (21:24)
--- NOTE | 2016-10-23 22:10 | PN ---
Progress Note, Physician Chief Complaint: Pt A&o3; lying flat in bed; no chest discomfort or dyspnea; +back pain. History of Present Illness: 56 year old white man with a history of HTN, DM, HLD, CAD s/p PCI x 4 2007 [facility], PCI (POBA only) mLAD, OM1 10/21/11 [facility], CVA 2009, Known [employer] of RCA, PAD s/ p stent 2011, LLE bypass 2013, known moderate Carotid artery disease now presents to ER with multiple complaints includin. Worsening of his chronic stable angina. Describes chronic exertional chest pain for "months" which lasted longer yesterday. Was walking from [facility] to [facility] (several miles) and developed substernal tightness which was relieved with rest, but lasted longer than his usual few minutes. No dyspnea. non palps. 2. Worsening LE edema for few weeks, L>>R 3. Pain and "numbness" of his LE limiting his ability to walk. 4. Dysuria Denies fever, chills. Denies syncope. No abdominal pain or diarrhea. - Current Medication List Current Medications: Active Medications Acetaminophen (Tylenol -) 650 mg PO Q6H PRN PRN Reason: FEVER OR PAIN Last Admin: 10/20/16 22:45 Dose: 650 mg Amlodipine Besylate (Norvasc -) 5 mg PO DAILY [facility] Last Admin: 10/23/16 09:00 Dose: 5 mg Aspirin (Ecotrin -) 81 mg PO DAILY [facility] Last Admin: 10/23/16 09:00 Dose: 81 mg Atorvastatin Calcium (Lipitor -) 20 mg PO HS [facility] Last Admin: 10/23/16 21:24 Dose: 20 mg Carvedilol (Coreg -) 12.5 mg PO BID [facility] Clopidogrel Bisulfate (Plavix -) 75 mg PO DAILY [facility] Last Admin: 10/23/16 09:00 Dose: 75 mg Furosemide (Lasix Injection -) 40 mg IVPUSH DAILY [facility] Last Admin: 10/23/16 09:00 Dose: 40 mg Glipizide (Glucotrol Xl -) 5 mg PO AM [facility] Last Admin: 10/23/16 06:29 Dose: 5 mg Insulin Aspart (Novolog Vial Sliding Scale -) 1 vial SQ ACHS [facility] PRN Reason: Protocol Last Admin: 10/23/16 21:24 Dose: 4 units Ranolazine (Ranexa -) 500 mg PO BID [facility] Last Admin: 10/23/16 21:24 Dose: 500 mg - Objective Vital Signs: Vital Signs Temperature 98.1 F 10/23/16 17:17 Pulse Rate 74 10/23/16 17:17 Respiratory Rate 20 10/23/16 17:17 Blood Pressure 104/52 10/23/16 17:17 O2 Sat by Pulse Oximetry (%) 95 10/23/16 09:00 Constitutional: Yes: Anxious Eyes: Yes: WNL HENT: Yes: WNL Neck: Yes: WNL Cardiovascular: Yes: S1, S2 (split). No: JVD Respiratory: Yes: Regular Gastrointestinal: Yes: Soft, Abdomen, Obese ...Rectal Exam: Yes: Deferred Genitourinary: No: Anuria Musculoskeletal: Yes: Muscle Pain, Muscle Weakness Extremities: Yes: Cool Edema: No Peripheral Pulses WNL: No Peripheral Pulses: Left Doralis Pedis: 1+, Right Dorsalis Pedis: 1+ Neurological: Yes: Alert, Oriented, Weakness Psychiatric: Yes: Other (anxiety) Labs: CBC, BMP 10/22/16 06:00 10/22/16 06:00 Problem List - Problems (1) ASHD (arteriosclerotic heart disease) Code(s): I25.10 - ATHSCL HEART DISEASE OF [place] CORONARY ARTERY W/O ANG PCTRS (2) Chronic stable angina Assessment/Plan: no further chest pain since Ranexa added. Change carvedilol to bid dosing for better 24 hour coverage. for stress MIBI. Code(s): I20.8 - OTHER FORMS OF ANGINA PECTORIS (3) Diabetic neuropathy Code(s): E11.40 - TYPE 2 DIABETES MELLITUS WITH DIABETIC NEUROPATHY, UNSP Qualifiers: Diabetes mellitus type: due to underlying condition (4) HTN (hypertension) Code(s): I10 - ESSENTIAL (PRIMARY) HYPERTENSION (5) History of arterial bypass of lower extremity Code(s): Z95.828 - PRESENCE OF OTHER VASCULAR IMPLANTS AND GRAFTS (6) PAD (peripheral artery disease) Code(s): I73.9 - PERIPHERAL VASCULAR DISEASE, UNSPECIFIED (7) Lower back pain Assessment/Plan: MRI: thoraco-lumbar disc herniations. Stress MIBI will likely have to be pharmacologic, as pt has back pain and limited ambulation. Code(s): M54.5 - LOW BACK PAIN (8) Hyperlipidemia Assessment/Plan: LDL cholesterol 137-->statin. Diet modification, increase exercise emphasized. Code(s): E78.5 - HYPERLIPIDEMIA, UNSPECIFIED (9) Stroke Assessment/Plan: Brain MRI: old cerebral infarcts. Aggressive lipid control. Code(s): I63.9 - CEREBRAL INFARCTION, UNSPECIFIED (10) Diastolic CHF Assessment/Plan: stop furosemide (no JVD or shortness of breath; increasing BUN/Cr). Hyperkalemia: repeat electrolytes; kayexelate if remains elevated; f/u etiology. Code(s): I50.30 - UNSPECIFIED DIASTOLIC (CONGESTIVE) HEART FAILURE (11) Left hand pain Code(s): M79.642 - PAIN IN LEFT HAND
--- NOTE | 2016-10-23 23:46 | PN ---
Progress Note, Physician - Current Medication List Current Medications: Active Medications Acetaminophen (Tylenol -) 650 mg PO Q6H PRN PRN Reason: FEVER OR PAIN Last Admin: 10/20/16 22:45 Dose: 650 mg Amlodipine Besylate (Norvasc -) 5 mg PO DAILY [facility] Last Admin: 10/23/16 09:00 Dose: 5 mg Aspirin (Ecotrin -) 81 mg PO DAILY [facility] Last Admin: 10/23/16 09:00 Dose: 81 mg Atorvastatin Calcium (Lipitor -) 20 mg PO HS [facility] Last Admin: 10/23/16 21:24 Dose: 20 mg Carvedilol (Coreg -) 12.5 mg PO BID [facility] Clopidogrel Bisulfate (Plavix -) 75 mg PO DAILY [facility] Last Admin: 10/23/16 09:00 Dose: 75 mg Glipizide (Glucotrol Xl -) 5 mg PO AM [facility] Last Admin: 10/23/16 06:29 Dose: 5 mg Insulin Aspart (Novolog Vial Sliding Scale -) 1 vial SQ ACHS [facility] PRN Reason: Protocol Last Admin: 10/23/16 21:24 Dose: 4 units Ranolazine (Ranexa -) 500 mg PO BID [facility] Last Admin: 10/23/16 21:24 Dose: 500 mg - Objective Vital Signs: Vital Signs Temperature 98.1 F 10/23/16 17:17 Pulse Rate 74 10/23/16 17:17 Respiratory Rate 20 10/23/16 17:17 Blood Pressure 104/52 10/23/16 17:17 O2 Sat by Pulse Oximetry (%) 95 10/23/16 09:00 Labs: CBC, BMP 10/22/16 06:00 10/22/16 06:00
[2016-10-24] MEDS: INSULIN SLIDING SCALE (NOVOLOG) 1 VIAL SQ SCH ×3 (06:02→17:36)
[2016-10-24] MEDS: glipiZIDE-XL 5 MG TAB.ER.24 PO SCH (06:02)
[2016-10-24] MEDS: RANOLAZINE E.R. 500 MG TABLET (FP) PO SCH (10:00)
[2016-10-24] MEDS: CLOPIDOGREL BISULFATE 75 MG TABLET (FP) PO SCH ×2 (10:00→14:14)
[2016-10-24] MEDS: ASPIRIN COATED 81 MG TABLET.EC PO SCH ×2 (10:00→14:14)
[2016-10-24] MEDS ORDERED: CARVEDILOL 12.5 MG TABLET (FP) PO SCH (10:00)
[2016-10-24] MEDS ORDERED: DIPYRIDAMOLE STRESS TEST 50 MG in DEXTROSE 5%-WATER - 40 ML IVPB ONE ×2 (10:00→11:00)
[2016-10-24] MEDS: amLODIPine BESYLATE 5 MG TABLET (FP) PO SCH ×2 (10:00→14:14)
--- NOTE | 2016-10-24 11:37 | PN ---
Progress Note, Physician History of Present Illness: seen and examined today in [facility]. no overnight events. no new complaints. - Current Medication List Current Medications: Active Medications Acetaminophen (Tylenol -) 650 mg PO Q6H PRN PRN Reason: FEVER OR PAIN Last Admin: 10/20/16 22:45 Dose: 650 mg Amlodipine Besylate (Norvasc -) 5 mg PO DAILY [facility] Last Admin: 10/23/16 09:00 Dose: 5 mg Aspirin (Ecotrin -) 81 mg PO DAILY [facility] Last Admin: 10/23/16 09:00 Dose: 81 mg Atorvastatin Calcium (Lipitor -) 20 mg PO HS [facility] Last Admin: 10/23/16 21:24 Dose: 20 mg Carvedilol (Coreg -) 12.5 mg PO BID [facility] Clopidogrel Bisulfate (Plavix -) 75 mg PO DAILY [facility] Last Admin: 10/23/16 09:00 Dose: 75 mg Glipizide (Glucotrol Xl -) 5 mg PO AM [facility] Last Admin: 10/24/16 06:02 Dose: Not Given Insulin Aspart (Novolog Vial Sliding Scale -) 1 vial SQ ACHS [facility] PRN Reason: Protocol Last Admin: 10/24/16 06:02 Dose: Not Given Ranolazine (Ranexa -) 500 mg PO BID [facility] Last Admin: 10/23/16 21:24 Dose: 500 mg - Objective Vital Signs: Vital Signs Temperature 98.1 F 10/24/16 01:30 Pulse Rate 77 10/24/16 01:30 Respiratory Rate 20 10/24/16 01:30 Blood Pressure 114/57 10/24/16 01:30 O2 Sat by Pulse Oximetry (%) 95 10/23/16 21:00 Constitutional: Yes: No Distress, Calm, Obese Eyes: Yes: Conjunctiva Clear, EOM Intact, PERRL HENT: Yes: Atraumatic, Normocephalic Neck: Yes: Supple, Trachea Midline Cardiovascular: Yes: Regular Rate and Rhythm, S1, S2. No: Bradycardia, Tachycardia, Pulse Irregular, Bruit, JVD, Gallop, Murmur, Rub, S3, S4, Varicosities Respiratory: Yes: Regular, Diminished. No: Rales, Rhonchi, Wheezes Gastrointestinal: Yes: Normal Bowel Sounds, Soft. No: Distention, Tenderness Musculoskeletal: Yes: Back Pain Edema: LLE: Trace, RLE: Trace Peripheral Pulses WNL: Yes Peripheral Pulses: Left Doralis Pedis: 2+, Right Dorsalis Pedis: 2+ Neurological: Yes: Alert, Oriented Psychiatric: Yes: Alert, Oriented Labs: CBC, BMP 10/22/16 06:00 10/22/16 06:00 - ....Imaging Chest X-ray: Report Reviewed, Image Reviewed EKG: Report Reviewed, Image Reviewed Other: Report Reviewed, Image Reviewed (tele-nsr, apcs) Assessment/Plan IMP: Known CAD s/p PCIs, chronic stable angina with possible recent worsening of stable complex Asymmetric LE edema, possibly due to acute on chronic diastolic CHF PAD DM Prior CVA REC: Cont Ranexa for angina Will check persantine nuclear stress test today to evaluate for ischemia Cont current medical regimen for now Neuro f/up re MRI's Moderate unilateral carotid stenosis (with T.O on right)- to be medically managed, appreciate Vascular input.
--- NOTE | 2016-10-24 14:06 | PN ---
Progress Note, Physician History of Present Illness: stable no new issues had a stress test done - Current Medication List Current Medications: Active Medications Acetaminophen (Tylenol -) 650 mg PO Q6H PRN PRN Reason: FEVER OR PAIN Last Admin: 10/20/16 22:45 Dose: 650 mg Amlodipine Besylate (Norvasc -) 5 mg PO DAILY [facility] Last Admin: 10/24/16 10:00 Dose: Not Given Aspirin (Ecotrin -) 81 mg PO DAILY [facility] Last Admin: 10/24/16 10:00 Dose: Not Given Atorvastatin Calcium (Lipitor -) 20 mg PO HS [facility] Last Admin: 10/23/16 21:24 Dose: 20 mg Carvedilol (Coreg -) 12.5 mg PO BID [facility] Last Admin: 10/24/16 10:00 Dose: Not Given Clopidogrel Bisulfate (Plavix -) 75 mg PO DAILY [facility] Last Admin: 10/24/16 10:00 Dose: Not Given Glipizide (Glucotrol Xl -) 5 mg PO AM [facility] Last Admin: 10/24/16 06:02 Dose: Not Given Insulin Aspart (Novolog Vial Sliding Scale -) 1 vial SQ ACHS [facility] PRN Reason: Protocol Last Admin: 10/24/16 06:02 Dose: Not Given Ranolazine (Ranexa -) 500 mg PO BID [facility] Last Admin: 10/24/16 10:00 Dose: Not Given - Objective Vital Signs: Vital Signs Temperature 97.6 F 10/24/16 09:00 Pulse Rate 76 10/24/16 09:00 Respiratory Rate 18 10/24/16 09:00 Blood Pressure 130/66 10/24/16 09:00 O2 Sat by Pulse Oximetry (%) 94 L 10/24/16 09:00 Constitutional: Yes: No Distress, Calm Cardiovascular: Yes: Regular Rate and Rhythm Respiratory: Yes: Regular, CTA Bilaterally Gastrointestinal: Yes: Normal Bowel Sounds, Soft Musculoskeletal: Yes: WNL Extremities: Yes: WNL Neurological: Yes: Alert, Oriented Psychiatric: Yes: Alert Labs: CBC, BMP 10/22/16 06:00 10/22/16 06:00 Assessment/Plan - Problems (1) Chronic stable angina Code(s): I20.8 - OTHER FORMS OF ANGINA PECTORIS (2) ASHD (arteriosclerotic heart disease) Code(s): I25.10 - ATHSCL HEART DISEASE OF [place] CORONARY ARTERY W/O ANG PCTRS (3) PAD (peripheral artery disease) Code(s): I73.9 - PERIPHERAL VASCULAR DISEASE, UNSPECIFIED (4) Edema Code(s): R60.9 - EDEMA, UNSPECIFIED Qualifiers: Edema type: unspecified Qualified Code(s): R60.9 - Edema, unspecified (5) IDDM (insulin dependent diabetes mellitus) Code(s): E11.9 - TYPE 2 DIABETES MELLITUS WITHOUT COMPLICATIONS Z79.4 - [facility] (CURRENT) USE OF INSULIN (6) Diabetic neuropathy Code(s): E11.40 - TYPE 2 DIABETES MELLITUS WITH DIABETIC NEUROPATHY, UNSP Qualifiers: Diabetes mellitus type: due to underlying condition (7) Stroke Assessment/Plan: old CVA Code(s): I63.9 - CEREBRAL INFARCTION, UNSPECIFIED 8 r/o uti 9 gm positive bacteremia patients blood cx growing gram positive organism plan repat blood cx negative stable off of abx await for stress test results rest as per primary
[2016-10-24] MEDS ORDERED: INSULIN (NOVOLOG) ASPART 100 UNITS/ML 10ML VIAL ONE (14:18)
--- NOTE | 2016-10-24 17:16 | PN ---
Progress Note (short form) - Note Progress Note: Nuclear stress test showed no ischemia normal EF. No cardiac contraindication to discharge with outpatient f.up
[2016-10-24 19:35] VITALS: BP 141/82; PULSE 79; TEMP 98.2
== END 2016-10-24 20:10 | disposition home health service (06) | DRG 291 ==
LOC: JER 16:19 → JERBED 23:55 → OBSVTOIN 10-18 02:29 → J4S 10-18 14:07
PROVIDERS: ADMIT Internal Medicine; ATTEND Internal Medicine
PROC: 0HBQXZZ Excision of Finger Nail, External Approach (ICD-10-PCS; principal; 2016-10-20)
DX: I13.0 Hypertensive heart and chronic kidney disease with heart failure and stage 1 through stage 4 chronic kidney disease, or unspecified chronic kidney disease (principal); I50.33 Acute on chronic diastolic (congestive) heart failure; I69.354 Hemiplegia and hemiparesis following cerebral infarction affecting left non-dominant side; I25.119 Atherosclerotic heart disease of native coronary artery with unspecified angina pectoris; Z98.61 Coronary angioplasty status; E11.40 Type 2 diabetes mellitus with diabetic neuropathy, unspecified; I73.9 Peripheral vascular disease, unspecified; E78.5 Hyperlipidemia, unspecified; B35.1 Tinea unguium; M48.07 Spinal stenosis, lumbosacral region; F17.210 Nicotine dependence, cigarettes, uncomplicated; I65.22 Occlusion and stenosis of left carotid artery; E11.22 Type 2 diabetes mellitus with diabetic chronic kidney disease; N18.9 Chronic kidney disease, unspecified; F10.920 Alcohol use, unspecified with intoxication, uncomplicated; R07.2 Precordial pain
CPT/HCPCS: 36415; 70551-TC; 71010-TC; 72148-TC; 78452-TC; 80048; 80053; 80061; 80307; 81003; 81015; 82436; 82550; 82553; 82570; 83605; 83690; 83721; 83735; 84133; 84300; 84484; 85025; 87040; 87086; 87186; 87205; 93005; 93010; 93017; 93306-TC; 93880-TC; 93970-TC; 99285-25; A9502; G0378; J1245

== ENCOUNTER 2017-01-19 06:46 | Inpatient (IN) | payer OTHER ==
[2017-01-19 07:04] VITALS: BMI 30.9
--- NOTE | 2017-01-19 08:46 | PDOC ---
History of Present Illness - General Chief Complaint: Edema Stated Complaint: PAIN Time Seen by Provider: 01/19/17 07:29 History Source: Patient, Friend Exam Limitations: Clinical Condition - History of Present Illness Initial Comments: 01/19/17 08:46 The patient is a 56M with a PMH of CVA (residual L sided weakness), DM, HTN, CHF s/p 2 stents who presents to the ED with L sided swelling. A family friend who takes care of the patient was providing the history. The family friend states that the patient has a history of having veins blocked in his legs for which he has had surgery. Over the past month he has worsened, he has "not been himself", has been "spacier", and his swelling has worsened to the point where he does not have the ability to walk. He cannot do his activities of daily living. He presents to the ED after spending the night gambling in the [employer]. Past History - Past Medical History Allergies/Adverse Reactions: Allergies Allergy/AdvReac Type Severity Reaction Status Date / Time No Known Drug Allergies Allergy Verified 01/19/17 07:01 Home Medications: Ambulatory Orders Glipizide [Glipizide ER] 5 mg PO DAILY 10/15/13 Amlodipine Besylate [Norvasc -] 5 mg PO DAILY 09/17/16 Clopidogrel Bisulfate [Plavix -] 75 mg PO DAILY 10/17/16 Carvedilol [Coreg -] 12.5 mg PO BID #60 tablet 10/24/16 Anemia: No Asthma: No Cancer: No Cardiac Disorders: Yes (stent x 2) CVA: Yes (2009, 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) COPD: No CHF: No Dementia: No Diabetes: Yes GI Disorders: No Disorders: No HTN: Yes Hypercholesterolemia: Yes Liver Disease: No Seizures: No Thyroid Disease: No - Surgical History Abdominal Surgery: No Appendectomy: No Cardiac Surgery: Yes (STENTS X2) Cholecystectomy: No Lung Surgery: No Neurologic Surgery: No Orthopedic Surgery: No - Immunization History Immunization Up to Date: Yes - Suicide/Smoking/Psychosocial Hx Smoking Status: Yes Smoking History: Never smoked Have you smoked in the past 12 months: No Number of Cigarettes Smoked Daily: 4 If you are a former smoker, when did you quit?: 3 months ago Cigars Per Day: 0 Information on smoking cessation initiated: No 'Breaking Loose' booklet given: 10/17/16 Hx Alcohol Use: No Drug/Substance Use Hx: No Substance Use Type: None Hx Substance Use Treatment: No Review of Systems - Review of Systems Able to Perform ROS?: Yes (Limited 2/2 somnolence) Is the patient limited [place] proficient: No Constitutional: No: Chills, Fever Respiratory: No: Cough, Shortness of Breath Cardiac (ROS): Yes: Chest Pain ("some") ABD/GI: No: Constipated, Diarrhea, Nausea, Vomiting : Yes: Dysuria ("sometimes"). No: Burning, Discharge Neurological: Yes: Numbness (Chronic L sided), Weakness (Chronic L sided). No: Headache, Tingling *Physical Exam - Vital Signs Last Vital Signs Temp Pulse Resp BP Pulse Ox 97.8 F 77 14 114/57 77 L 01/19/17 07:02 01/19/17 07:02 01/19/17 07:02 01/19/17 07:02 01/19/17 07:02 - Physical Exam General Appearance: Yes: Appropriately Dressed, Obese HEENT: positive: Normal Voice, Hearing Grossly Normal Respiratory/Chest: positive: Lungs Clear, Normal Breath Sounds, Rhonchi (R lung field). negative: Chest Tender, Respiratory Distress, Rales, Stridor, Wheezing Cardiovascular: positive: Regular Rhythm, Regular Rate, S1, S2. negative: Diastolic Murmur, Systolic Murmur Gastrointestinal/Abdominal: positive: Flat, Soft. negative: Tender, Distended, Guarding, Rebound, Tenderness Extremity: positive: Swelling (L hand swelling, no erythema or warmth. L leg is 3-4+ edema with weeping wound. Foot looks erythematous/cellulitic, no warmth) Integumentary: positive: Dry, Warm, Swelling, Ecchymosis Neurologic: negative: Fully Oriented, Alert, Normal Mood/Affect, Motor Strength 5/5 (residual L sided weakness) Heart Score/ECG Review - ECG Impressions Comment:: 01/19/17 08:55 Rate 77 OH 172 QTC 428/484 RBBB LAF block Unchanged from October 17, 2016 ED Treatment Course - LABORATORY CBC & Chemistry Diagram: 01/20/17 06:15 01/20/17 06:15 - RADIOLOGY Radiology Studies Ordered: Category Date Time Status CHEST X-RAY PORTABLE* [RAD] Stat Radiology 01/19/17 07:51 Ordered DUPLEX VASCUL US-1 ARM [US] Stat Ultrasound 01/19/17 08:03 Ordered DUPLEX VASCUL US-1 LEG [US] Stat Ultrasound 01/19/17 08:03 Ordered Medical Decision Making - Medical Decision Making 01/19/17 08:57 The patient is a 56M with a PMH of CVA, DM, HTN, vascular dz who presents to the ED with L sided swelling. The swelling is suspicious for a venous congestion /stasis but infection cannot be ruled out. Patient is afebrile with normal vitals. Labs pending: - CBC, CMP - Blood Cx - UA/UCx - CXR Will reassess when labs and imaging return. 01/19/17 10:17 CXR shows atelectasis at R lung base. Labs abnormal: - chronic anemia - trop of 0.07 (elevated from previous labs) - CKMB 9.353 - BNP at 2608 - elevated Will call PMD for admission. *DC/Admit/Observation/Transfer Diagnosis at time of Disposition: Cellulitis Qualifiers: Site of cellulitis: extremity Site of cellulitis of extremity: lower extremity Laterality: left Qualified Code(s): L03.116 - Cellulitis of left lower limb - Discharge Dispostion Condition at time of disposition: Stable
--- NOTE | 2017-01-19 08:48 | PDOC ---
Attending Attestation - Resident Resident Name: Evelyn Nunezony - ED Attending Attestation I have performed the following: I have examined & evaluated the patient, The case was reviewed & discussed with the resident, I agree w/resident's findings & plan, Exceptions are as noted - Medical Decision Making 01/19/17 09:18 Vital Signs Temp Pulse Resp BP Pulse Ox 97.8 F 80 18 146/66 97 01/19/17 07:02 01/19/17 07:55 01/19/17 07:55 01/19/17 07:55 01/19/17 07:45 This is a 55-year-old male with past medical history of diabetes, hypertension, coronary disease status post stents, CVA with left-sided residual deficit, hyperlipidemiapresenting with several days of left lower extremity swelling and mild hand swelling. Patient denies any pain reports that his left side, which is is chronically numb side from a stroke, is somewhat slightly numb secondary to the swelling. The patient's findings are consistent with cellulitis of the left lower extremity. We'll obtain duplex to rule out DVT. We'll obtain an adult sepsis protocol and admit the patient to the hospital for further evaluation. CBC, BMP 01/19/17 08:35 01/19/17 08:35 CMP Sodium 142 mmol/L (136-145) 01/19/17 08:35 Potassium 4.2 mmol/L (3.5-5.1) D 01/19/17 08:35 Chloride 106 mmol/L (98-107) 01/19/17 08:35 Carbon Dioxide 28 mmol/L (21-32) 01/19/17 08:35 Anion Gap 8 (8-16) 01/19/17 08:35 BUN 33 mg/dL (7-18) H D 01/19/17 08:35 Creatinine 1.6 mg/dL (0.7-1.3) H 01/19/17 08:35 Creat Clearance w eGFR 44.62 (>60) 01/19/17 08:35 Random Glucose 125 mg/dL (74-106) H D 01/19/17 08:35 Lactic Acid 0.6 mmol/L (0.4-2.0) 01/19/17 08:35 Calcium 8.4 mg/dL (8.5-10.1) L 01/19/17 08:35 Total Bilirubin 0.5 mg/dL (0.2-1.0) 01/19/17 08:35 AST 14 U/L (15-37) L 01/19/17 08:35 ALT 17 U/L (12-78) 01/19/17 08:35 Alkaline Phosphatase 84 U/L (45-117) D 01/19/17 08:35 Creatine Kinase 329 IU/L (39-308) H 01/19/17 08:35 Creatine Kinase Index 2.8 % (0.0-5.0) 01/19/17 08:35 CK-MB (CK-2) 9.353 ng/mL (0.5-3.6) H 01/19/17 08:35 Troponin I 0.07 ng/ml (0.00-0.05) H D 01/19/17 08:35 B-Natriuretic Peptide 2608.59 pg/ml (5-125) H 01/19/17 08:35 Total Protein 6.1 g/dl (6.4-8.2) L 01/19/17 08:35 Albumin 3.0 g/dl (3.4-5.0) L 01/19/17 08:35 <Max Joyner - Last Filed: 01/19/17 09:51> - HPI HPI: 01/19/17 08:49 The patient is a 55 year old male brought via EMS, with a significant past medical history of CVA (~6 years ago, left side slight residual weakness), DM, HTN (has not taken meds x 3w), HLD, and cad s/p stents on plavix, who presents to the ED for evaluation of left hand and left lower extremity edema for a couple of days. The patient states he walks with a walker at baseline and reports walking 2 hours to the [employer] last night. He reports his friend/ roommate called ems for him. He reports his lower extremities are swollen at baseline, however, reports his left lower extremity, from Left ankle to thigh, has significantly increased in size. He denies pain to his affected extremities. He also reports minimal swelling to his right foot and left hand. He denies recent traumas to his extremities. He denies recent illnesses or sick contacts. He denies chest pain, shortness of breath, headache and dizziness. He denies fever, chills, nausea, vomit, diarrhea and constipation. He denies dysuria, frequency, urgency and hematuria. Allergies: NKDA Past surgical history: LLE vascular surgery Social history: social alcohol consumption PCP - Dr. Malinda Islas - Physicial Exam PE: 01/19/17 08:50 GENERAL: (+) Chronically ill appearing, Awake, alert, and fully oriented, in no acute distress HEAD: No signs of trauma EYES: PERRLA, EOMI, sclera anicteric, conjunctiva clear ENT: Auricles normal inspection, hearing grossly normal, nares patent, oropharynx clear without exudates. Moist mucosa NECK: Normal ROM, supple, no lymphadenopathy, JVD, or masses LUNGS: Breath sounds equal, clear to auscultation bilaterally. No wheezes, and no crackles HEART: Regular rate and rhythm, normal S1 and S2, no murmurs, rubs or gallops ABDOMEN: Soft, nontender, normoactive bowel sounds. No guarding, no rebound. No masses EXTREMITIES: (+) Diffuse erythema along distal lower extremity with tenderness to palpation. Left upper extremity has non-pitting in hand, 2+ intact radian, radian, ulnar nerve intact Normal range of motion. No clubbing or cyanosis. No cords NEUROLOGICAL: Cranial nerves II-XII intact. Normal speech, normal gait. Sensation intact in upper and lower extremities. 5/5 motor strength in upper and lower extremities. No pronator drift. Finger to nose intact. Rapid alternations intact. SKIN: Warm, Dry, normal turgor, no rashes or lesions noted. - Medical Decision Making 01/19/17 08:55 Documentation prepared by Daysi Parikh, acting as medical records manager for Max Joyner MD, 01/19/17 10:32 At this time, the patient is pending an ultrasound. Upon results, will call Dr. Malinda Islas for admission of this patient. <Daysi Parikh - Last Filed: 01/19/17 10:33> Heart Score/ECG Review #1 ECG reviewed & interpreted by me at: 07:50 01/19/17 09:51 NSR 77, RBBB, LAFB, no std/heraclio, QTC 484 msec <Max Joyner - Last Filed: 01/19/17 09:51>
[2017-01-19 08:52] LABS: BASOPHIL 0.7 % (0-2.0); EOSINOPHIL 4.3 % (0-4.5); MCH 32.5 pg (25.7-33.7); MCHC 33.9 g/dl (32.0-35.9); MEAN CELL VOLUME 96.1 fl (80-96); MEAN PLT VOLUME 8.4 fl (7.5-11.1); NEUTROPHILS 73.8 % (42.8-82.8); PLATELET COUNT 225 K/MM3 (134-434); RDW 13.7 % (11.9-15.9); WHITE BLOOD COUNT 6.7 K/mm3 (4.0-10.0)
[2017-01-19 09:16] LABS: ANION GAP 8 (8-16); CALCIUM 8.4 mg/dL (8.5-10.1); CO2 28 mmol/L (21-32); CREATININE 1.6 mg/dL (0.7-1.3); GLUCOSE,RANDOM 125 mg/dL (74-106); SGOT/AST 14 U/L (15-37); SGPT/ALT 17 U/L (12-78)
[2017-01-19 09:20] LABS: ALK PHOS 84 U/L (45-117); BILIRUBIN,TOTAL 0.5 mg/dL (0.2-1.0); CPK 329 IU/L (39-308); TOT PROT 6.1 g/dl (6.4-8.2); TROPONIN I 0.07 ng/ml (0.00-0.05)
[2017-01-19] MEDS ORDERED: PIPERACILLIN/TAZOB 3.375 GM/50 ML PRE-DOCKED IV ONE (09:58)
[2017-01-19] MEDS ORDERED: VANCOMYCIN 1,000 MG in DEXTROSE 5%-WATER - 250 ML IVPB ONE (09:58)
[2017-01-19] MEDS ORDERED: PIPERACILLIN/TAZOB 3.375 GM 50 ML IVPB ONE (10:16)
[2017-01-19] MEDS ORDERED: VANCOMYCIN 1 GRAM (PRE-DOCKED) 250 ML IVPB ONE (10:16)
[2017-01-19 12:18] LABS: URINE APPEARANCE SLCLOUDY; URINE BILIRUBIN NEGATIVE (NEGATIVE); URINE BLOOD 1+ (NEGATIVE); URINE COLOR LTYELLOW; URINE GLUCOSE (UA) 1+ (NEGATIVE); URINE KETONE NEGATIVE (NEGATIVE); URINE LEUK ESTERASE NEGATIVE (NEGATIVE); URINE NITRITE NEGATIVE (NEGATIVE); URINE UROBILINOGEN NEGATIVE mg/dL (0.2-1.0)
[2017-01-19 12:20] LABS: URINE PROTEIN 3+ (NEGATIVE)
[2017-01-19 12:21] LABS: URINE MUCUS RARE; URINE RBC 4 /hpf (0-3); URINE WBC <1 /hpf (3-5)
--- NOTE | 2017-01-19 12:26 | PDOC ---
*Physical Exam - Vital Signs Last Vital Signs Temp Pulse Resp BP Pulse Ox 97.8 F 73 18 144/67 95 01/19/17 07:02 01/19/17 11:55 01/19/17 07:55 01/19/17 11:55 01/19/17 11:55 ED Treatment Course - LABORATORY CBC & Chemistry Diagram: 01/19/17 08:35 01/19/17 08:35 - ADDITIONAL ORDERS Additional order review: Laboratory Results 01/19/17 01/19/17 01/19/17 12:05 08:35 08:35 Sodium Potassium Chloride Carbon Dioxide Anion Gap BUN Creatinine Creat Clearance w eGFR Random Glucose Lactic Acid 0.6 Calcium Total Bilirubin AST ALT Alkaline Phosphatase Creatine Kinase Creatine Kinase Index CK-MB (CK-2) Troponin I B-Natriuretic Peptide Total Protein Albumin Urine Color Ltyellow Urine Appearance Slcloudy Urine pH 5.0 Urine Protein 3+ H Urine Glucose (UA) 1+ H Urine Ketones Negative Urine Blood 1+ H Urine Nitrite Negative Urine Bilirubin Negative Urine Urobilinogen Negative Alcohol, Quantitative < 5.0 01/19/17 08:35 Sodium 142 Potassium 4.2 D Chloride 106 Carbon Dioxide 28 Anion Gap 8 BUN 33 H D Creatinine 1.6 H Creat Clearance w eGFR 44.62 Random Glucose 125 H D Lactic Acid Calcium 8.4 L Total Bilirubin 0.5 AST 14 L ALT 17 Alkaline Phosphatase 84 D Creatine Kinase 329 H Creatine Kinase Index 2.8 CK-MB (CK-2) 9.353 H Troponin I 0.07 H D B-Natriuretic Peptide 2608.59 H Total Protein 6.1 L Albumin 3.0 L Urine Color Urine Appearance Urine pH Urine Protein Urine Glucose (UA) Urine Ketones Urine Blood Urine Nitrite Urine Bilirubin Urine Urobilinogen Alcohol, Quantitative 01/19/17 08:35 RBC 3.14 L MCV 96.1 H MCHC 33.9 RDW 13.7 MPV 8.4 Neutrophils % 73.8 Lymphocytes % 13.6 Monocytes % 7.6 Eosinophils % 4.3 Basophils % 0.7 - Medications Given in the ED: ED Medications Discontinued Medications Generic Name Dose Route Start Last Admin Trade Name Freq PRN Reason Stop Dose Admin Piperacillin Sod/Tazobactam Sod 3.375 gm 01/19/17 09:58 01/19/17 11:45 Zosyn 3.375gm Ivpb (Pre-Docked) IV 01/19/17 09:59 3.375 gm ONCE ONE Administration Protocol Medical Decision Making - Medical Decision Making 01/19/17 12:24 CBC, BMP 01/19/17 08:35 01/19/17 08:35 CMP Sodium 142 mmol/L (136-145) 01/19/17 08:35 Potassium 4.2 mmol/L (3.5-5.1) D 01/19/17 08:35 Chloride 106 mmol/L (98-107) 01/19/17 08:35 Carbon Dioxide 28 mmol/L (21-32) 01/19/17 08:35 Anion Gap 8 (8-16) 01/19/17 08:35 BUN 33 mg/dL (7-18) H D 01/19/17 08:35 Creatinine 1.6 mg/dL (0.7-1.3) H 01/19/17 08:35 Creat Clearance w eGFR 44.62 (>60) 01/19/17 08:35 Random Glucose 125 mg/dL (74-106) H D 01/19/17 08:35 Lactic Acid 0.6 mmol/L (0.4-2.0) 01/19/17 08:35 Calcium 8.4 mg/dL (8.5-10.1) L 01/19/17 08:35 Total Bilirubin 0.5 mg/dL (0.2-1.0) 01/19/17 08:35 AST 14 U/L (15-37) L 01/19/17 08:35 ALT 17 U/L (12-78) 01/19/17 08:35 Alkaline Phosphatase 84 U/L (45-117) D 01/19/17 08:35 Creatine Kinase 329 IU/L (39-308) H 01/19/17 08:35 Creatine Kinase Index 2.8 % (0.0-5.0) 01/19/17 08:35 CK-MB (CK-2) 9.353 ng/mL (0.5-3.6) H 01/19/17 08:35 Troponin I 0.07 ng/ml (0.00-0.05) H D 01/19/17 08:35 B-Natriuretic Peptide 2608.59 pg/ml (5-125) H 01/19/17 08:35 Total Protein 6.1 g/dl (6.4-8.2) L 01/19/17 08:35 Albumin 3.0 g/dl (3.4-5.0) L 01/19/17 08:35 Urine Test Results Urine Color Ltyellow 01/19/17 12:05 Urine Appearance Slcloudy 01/19/17 12:05 Urine pH 5.0 (5.0-8.0) 01/19/17 12:05 Urine Protein 3+ (NEGATIVE) H 01/19/17 12:05 Urine Glucose (UA) 1+ (NEGATIVE) H 01/19/17 12:05 Urine Ketones Negative (NEGATIVE) 01/19/17 12:05 Urine Blood 1+ (NEGATIVE) H 01/19/17 12:05 Urine Nitrite Negative (NEGATIVE) 01/19/17 12:05 Urine Bilirubin Negative (NEGATIVE) 01/19/17 12:05 The patient was treated with vanc and zosyn for the LLE edema. The patient has a Cr of 1.6 and BNP of 2608 and a trop of 0.07, which I suspect is demand ischemia. However, at this time, the patient apperas clinically dehydrated and given the infection, will hold off on lasix and observe the patient. The lower extremity ultrasound was negative for DVT. Case was discussed with Dr. Malinda Islas who accepts the patient for telemetry admission. Case discussed in detail with admitting physician including history, physical exam and ancillary studies. Admitting physician has assumed care for the patient, will follow all pending diagnostics and will complete the evaluation and treatment. 01/19/17 12:26 According to ANNE MARIE Patel, the o2 saturation of 77% is incorrect. O2 saturaiton here is in high 90s. *DC/Admit/Observation/Transfer Diagnosis at time of Disposition: Cellulitis Qualifiers: Site of cellulitis: extremity Site of cellulitis of extremity: lower extremity Laterality: left Qualified Code(s): L03.116 - Cellulitis of left lower limb - Discharge Dispostion Condition at time of disposition: Stable Admit: Yes
--- NOTE | 2017-01-19 12:39 | CON.CARD ---
Consult Consult Specialty:: Cardiology Referred by:: Dr. Islas Reason for Consultation:: Elevated troponin, edema, CHF, CAD, PAD - History of Present Illness Chief Complaint: Pain and swelling LLE History of Present Illness: 56 year old man with a history of HTN, HLD, DMII, CAD s/p PCI x 4 2007 [facility] POBA mLAD, OM1 2011 [place], Known TALCER of RCA, CVA 2009, Carotid stenosis with known total occlusion of BERTRAND and mild stenosis of LICA, PAD with prior LLE bypass 2013 and stent 2011, admission 09/2016 with angina, edema, dysuria, nuclear stress test done 10/24/16 showed no ischemia normal EF and echo showed normal LV function with no sig valvular abnormalities, pt now admitted with c/o worsening swelling and pain of extremities LLE>RLE and noted to have erythema and edema c/w likely cellulitis. Incidentally pt noted to have a troponin slightly above the upper limit of normal. Pt was seen and examined today in [facility]. states the reason he came in was for LLE pain and swelling. Denies any chest pain or sob. no palpitations. no pnd, orthopnea. no syncope or near syncope. 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, Peripheral Neuropathy, Other (arterial insufficiency s/p left fem -tibial bypass- 2013) Cardio/Vascular: Yes: CAD, CHF, HTN, Hyperlipdemia, Other (PAD) Pulmonary: Yes: COPD Psych: Yes: Anxiety Endocrine: Yes: Diabetes Mellitus - Past Surgical History Past Surgical History: Yes: Bypass, Stent - Alcohol/Substance Use Hx Alcohol Use: No - Smoking History Smoking history: Never smoked Have you smoked in the past 12 months: No Aproximately how many cigarettes per day: 4 If you are a former smoker, when did you quit?: 3 months ago - Social History ADL: Independent History of Recent Travel: No Home Medications - Allergies Allergies/Adverse Reactions: Allergies Allergy/AdvReac Type Severity Reaction Status Date / Time No Known Drug Allergies Allergy Verified 01/19/17 07:01 - Home Medications Home Medications: Ambulatory Orders Glipizide [Glipizide ER] 5 mg PO DAILY 10/15/13 Amlodipine Besylate [Norvasc -] 5 mg PO DAILY 09/17/16 Clopidogrel Bisulfate [Plavix -] 75 mg PO DAILY 10/17/16 Carvedilol [Coreg -] 12.5 mg PO BID #60 tablet 10/24/16 Family Disease History - Family Disease History Family History: Denies Review of Systems - Review of Systems Constitutional: denies: No Symptoms, Chills, Diaphoresis, Fever, Lethargy, Loss of Appetite, Malaise, Night Sweats, Unintentional Wgt. Loss, Weakness, Other Eyes: denies: No Symptoms, Blind Spots, Blurred Vision, Double Vision, Eye Pain , Floaters, Photophobia, Recent Change in Vision, Other HENT: denies: No Symptoms, Difficult Swallowing, Ear Discharge, Ear Pain, Epistaxis, Gingival Bleeding, Hearing Loss, Mouth Swelling, Nasal Congestion, Ocular Prosthesis, Throat Pain, Toothache, Ringing in Ears, Other Neck: denies: No Symptoms, Decreased ROM, Lumps, Pain on Movement, Stiffness, Swollen Glands, Tenderness, Other Cardiovascular: reports: Edema. denies: No Symptoms, Chest Pain, Palpitations, Shortness of Breath, Other Respiratory: denies: No Symptoms, Cough, Exercise Intolerance, Hemoptysis, Orthopnea, PND, Snoring, SOB, SOB on Exertion, Wheezing, Other Gastrointestinal: denies: No Symptoms, Abdominal Pain, Bloating, Constipation, Diarrhea, Dysphagia, Indigestion, Melena, Nausea, Rectal Bleeding, Vomiting, Vomiting Blood, Other Genitourinary: denies: No Symptoms, Burning, Discharge, Dysuria, Flank Pain, Frequency, Hematuria, Incontinence, Lesions, Menses, Pain, Testicular Mass, Testicular Pain, Testicular Swelling, Urgency, Vaginal Bleeding, Other Breasts: denies: No Symptoms Reported, See HPI, Breast Implants, Discharge from Nipple, Lumps, Pain, Skin Changes, Other Musculoskeletal: reports: Extremity Pain. denies: No Symptoms, Back Pain, Crepitus, Decreased ROM, Joint Pain, Joint Swelling, Muscle Pain, Muscle Cramps , Muscle Weakness, Other Integumentary: reports: Change in Color, Erythema. denies: No Symptoms, Blister , Bruising, Eczema, Incision, Lesions, Lump, Pallor, Pruritis, Rash, Wound, Other Neurological: denies: No Symptoms, Change in LOC, Change in Speech, Confusion, Dizziness, Headache, Incoordination, Numbness, Parasthesia, Pre-Existing Deficit , Seizure, Syncope, Tremors, Unsteady Gait, Weakness, Other Endocrine: denies: No Symptoms, Excessive Sweating, Flushing, Increased Hunger, Increased Thirst, Intolerance to Cold, Intolerance to Heat, Unexplained Weight Gain, Unexplained Weight Loss, Other Hematology/Lymphatic: denies: No Symptoms, Easily Bruised, Excessive Bleeding, Swollen Glands, Other Psychiatric: denies: No Symptoms, Altered Sleep Pattern, Anxiety, Depression, Hallucinations, Panic, Paranoia, Suicidal, Other - Risk Factors Known Risk Factors: Yes: Diabetes Mellitus, Hypercholesterolemia, Hypertension, Physical Inactivity Vital Signs: Vital Signs Temperature 97.8 F 01/19/17 07:02 Pulse Rate 73 01/19/17 11:55 Respiratory Rate 18 01/19/17 07:55 Blood Pressure 144/67 01/19/17 11:55 O2 Sat by Pulse Oximetry (%) 95 01/19/17 11:55 Constitutional: Yes: No Distress, Calm Eyes: Yes: WNL, Conjunctiva Clear, EOM Intact, PERRL HENT: Yes: WNL, Atraumatic, Normocephalic Neck: Yes: Supple, Trachea Midline Respiratory: Yes: Regular, Diminished. No: Rales, Rhonchi, SOB, Wheezes Gastrointestinal: Yes: Normal Bowel Sounds, Soft. No: Distention, Tenderness Cardiovascular: Yes: Regular Rate and Rhythm. No: Bradycardia, Tachycardia, Pulse Irregular, Gallop, Rub, Varicosities JVD: No Carotid Bruit: No PMI: Non-Displaced Heart Sounds: Yes: S1, S2. No: Split S2, S3, S4, Clicks, Gallop, Rub, Bruit Murmur: No: Systolic Murmur, Diastolic Murmur Musculoskeletal: Yes: Muscle Weakness Extremities: Yes: Erythema Edema: Yes Edema: LLE: 2+, RLE: 1+ Peripheral Pulses WNL: No Neurological: Yes: Alert, Oriented Psychiatric: Yes: Alert, Oriented - Other Data Labs, Other Data: CBC, BMP 01/19/17 08:35 01/19/17 08:35 Troponin, BNP 01/19/17 08:35 Troponin I 0.07 H D B-Natriuretic Peptide 2608.59 H Troponin, BNP 01/19/17 08:35 Troponin I 0.07 H D B-Natriuretic Peptide 2608.59 H EKG-NSR 77bpm, RBBB, LAFB, LVH, T inversion I, aVL, nonspecific ST abnl Echo: Report Reviewed Prior Cardiac Procedures: PTCA with Stent Ejection Fraction %: LVEF > or = 40 % Imaging - Results Chest X-ray: Report Reviewed, Image Reviewed EKG: Report Reviewed, Image Reviewed Other: Report Reviewed, Image Reviewed Assessment/Plan 56 year old man with a history of HTN, HLD, DMII, CAD s/p PCI x 4 2007 [facility] POBA mLAD, OM1 2011 [facility], Known TALCER of RCA, CVA 2009, Carotid stenosis with known total occlusion of BERTRAND and mild stenosis of LICA, PAD with prior LLE bypass 2013 and stent 2011, admission 09/2016 with angina, edema, dysuria, nuclear stress test done 10/24/16 showed no ischemia normal EF and echo showed normal LV function with no sig valvular abnormalities, pt now admitted with c/o worsening swelling and pain of extremities LLE>RLE and noted to have erythema and edema c/w likely cellulitis. Incidentally pt noted to have a troponin slightly above the upper limit of normal. Elevated troponin-incidentally noted, no c/o chest pain or sob, no sig ischemia on ekg -h/o CAD with stents, h/o chronic stable angina -unlikely ACS currently, troponin minimally elevated likely due to CAD, DAVID, and possible sepsis secondary to cellulitis -check serial cardiac enzymes and ekgs -monitor on tele x 24 hours, if no events can be transferred to [facility] surg -nuclear stress test 09/2016 showed no ischemia -echo 09/2016 showed normal LV systolic function, no sig valvular abnl -will clarify if pt requires both ASA and Plavix, currently only on Plavix but as of last admission was on both -resume home Lipitor -can resume home Ranexa (once creatinine stabilizes) -cont Coreg, Plavix, and Norvasc -will consider if norvasc possibly contributing to edema -will order repeat echo to re-evaluate LV function Edema-chronic edema with current worsening and LLE erythema and pain -possible cellulitis -possible acute on chronic diastolic CHF -h/o PAD with prior interventions, will consult vascular for evaluation -cont antibiotics -f/up cultures -cont anti-platelets -hold off on diuresis at this point as pt has some evidence of intravascular depletion (elevated bun/creat) HTN-adequately controlled -cont above medical regimen for now HLD -resume Lipitor Carotid stenosis-known total occlusion of BERTRAND with mild LICA stenosis -last evaluated 09/2016 -plan was for medical management at the time -outpatient f/up
--- NOTE | 2017-01-19 14:07 | HP ---
Admitting History and Physical - Primary Care Physician PCP: Ariadna Huizar - Admission Chief Complaint: left leg pain and swelling History of Present Illness: The patient brought in by ambulance to the ER for left leg swelling and pain for the last 1 week. He has not been himself for the past month, felt short of breath and had left leg pain. He has had a history of left femorotibial bypass about 3 years ago. 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, Other (arterial insufficiency s/p left fem -tibial bypass- 2013) Cardiovascular: Yes: CAD, CHF, HTN, Hyperlipdemia, Other (PAD) Pulmonary: Yes: COPD Heme/Onc: Yes: Anemia Psych: Yes: Anxiety Endocrine: Yes: Diabetes Mellitus - Past Surgical History Past Surgical History: Yes: Bypass, Stent - Smoking History Smoking history: Never smoked Have you smoked in the past 12 months: No Aproximately how many cigarettes per day: 4 If you are a former smoker, when did you quit?: 3 months ago - Alcohol/Substance Use Hx Alcohol Use: No - Social History ADL: Independent History of Recent Travel: No Home Medications - Allergies Allergies/Adverse Reactions: Allergies Allergy/AdvReac Type Severity Reaction Status Date / Time No Known Drug Allergies Allergy Verified 01/19/17 07:01 - Home Medications Home Medications: Ambulatory Orders Glipizide [Glipizide ER] 5 mg PO DAILY 10/15/13 Amlodipine Besylate [Norvasc -] 5 mg PO DAILY 09/17/16 Clopidogrel Bisulfate [Plavix -] 75 mg PO DAILY 10/17/16 Carvedilol [Coreg -] 12.5 mg PO BID #60 tablet 10/24/16 Review of Systems - Review of Systems Constitutional: denies: Chills, Fever Cardiovascular: reports: Shortness of Breath. denies: Chest Pain Integumentary: reports: Other (left leg pain and swelling) Physical Examination Vital Signs: Vital Signs Temperature 97.8 F 01/19/17 07:02 Pulse Rate 73 01/19/17 11:55 Respiratory Rate 18 01/19/17 07:55 Blood Pressure 144/67 01/19/17 11:55 O2 Sat by Pulse Oximetry (%) 95 01/19/17 11:55 Constitutional: Yes: No Distress, Calm Cardiovascular: Yes: Regular Rate and Rhythm, Murmur Respiratory: Yes: Diminished Gastrointestinal: Yes: Normal Bowel Sounds, Soft, Abdomen, Obese. No: Distention, Tenderness Extremities: Yes: Erythema (left leg erythema, warm and tender,blisters also noted on the left leg.) Edema: Yes Edema: LLE: 3+ Psychiatric: Yes: Alert, Oriented Labs: Laboratory Last Values WBC 6.7 K/mm3 (4.0-10.0) 01/19/17 08:35 RBC 3.14 M/mm3 (4.00-5.60) L 01/19/17 08:35 Hgb 10.2 GM/dL (11.7-16.9) L 01/19/17 08:35 Hct 30.2 % (35.4-49) L 01/19/17 08:35 MCV 96.1 fl (80-96) H 01/19/17 08:35 MCH 32.5 pg (25.7-33.7) 01/19/17 08:35 MCHC 33.9 g/dl (32.0-35.9) 01/19/17 08:35 RDW 13.7 % (11.9-15.9) 01/19/17 08:35 Plt Count 225 K/MM3 (134-434) D 01/19/17 08:35 MPV 8.4 fl (7.5-11.1) 01/19/17 08:35 Neutrophils % 73.8 % (42.8-82.8) 01/19/17 08:35 Lymphocytes % 13.6 % (8-40) 01/19/17 08:35 Monocytes % 7.6 % (3.8-10.2) 01/19/17 08:35 Eosinophils % 4.3 % (0-4.5) 01/19/17 08:35 Basophils % 0.7 % (0-2.0) 01/19/17 08:35 Sodium 142 mmol/L (136-145) 01/19/17 08:35 Potassium 4.2 mmol/L (3.5-5.1) D 01/19/17 08:35 Chloride 106 mmol/L (98-107) 01/19/17 08:35 Carbon Dioxide 28 mmol/L (21-32) 01/19/17 08:35 Anion Gap 8 (8-16) 01/19/17 08:35 BUN 33 mg/dL (7-18) H D 01/19/17 08:35 Creatinine 1.6 mg/dL (0.7-1.3) H 01/19/17 08:35 Creat Clearance w eGFR 44.62 (>60) 01/19/17 08:35 Random Glucose 125 mg/dL (74-106) H D 01/19/17 08:35 Lactic Acid 0.6 mmol/L (0.4-2.0) 01/19/17 08:35 Calcium 8.4 mg/dL (8.5-10.1) L 01/19/17 08:35 Total Bilirubin 0.5 mg/dL (0.2-1.0) 01/19/17 08:35 AST 14 U/L (15-37) L 01/19/17 08:35 ALT 17 U/L (12-78) 01/19/17 08:35 Alkaline Phosphatase 84 U/L (45-117) D 01/19/17 08:35 Creatine Kinase 329 IU/L (39-308) H 01/19/17 08:35 Creatine Kinase Index 2.8 % (0.0-5.0) 01/19/17 08:35 CK-MB (CK-2) 9.353 ng/mL (0.5-3.6) H 01/19/17 08:35 Troponin I 0.07 ng/ml (0.00-0.05) H D 01/19/17 08:35 B-Natriuretic Peptide 2608.59 pg/ml (5-125) H 01/19/17 08:35 Total Protein 6.1 g/dl (6.4-8.2) L 01/19/17 08:35 Albumin 3.0 g/dl (3.4-5.0) L 01/19/17 08:35 Urine Color Ltyellow 01/19/17 12:05 Urine Appearance Slcloudy 01/19/17 12:05 Urine pH 5.0 (5.0-8.0) 01/19/17 12:05 Urine Protein 3+ (NEGATIVE) H 01/19/17 12:05 Urine Glucose (UA) 1+ (NEGATIVE) H 01/19/17 12:05 Urine Ketones Negative (NEGATIVE) 01/19/17 12:05 Urine Blood 1+ (NEGATIVE) H 01/19/17 12:05 Urine Nitrite Negative (NEGATIVE) 01/19/17 12:05 Urine Bilirubin Negative (NEGATIVE) 01/19/17 12:05 Urine Urobilinogen Negative mg/dL (0.2-1.0) 01/19/17 12:05 Urine RBC 4 /hpf (0-3) 01/19/17 12:05 Urine WBC <1 /hpf (3-5) 01/19/17 12:05 Ur Epithelial Cells Rare /hpf (FEW) 01/19/17 12:05 Urine Mucus Rare 01/19/17 12:05 Alcohol, Quantitative < 5.0 mg/dl (0-5) 01/19/17 08:35 Imaging - Results Chest X-ray: Image Reviewed (no infiltrate or congestion) EKG: Image Reviewed (sinus rhythm,RBBB) Problem List - Problems (1) ASHD (arteriosclerotic heart disease) Code(s): I25.10 - ATHSCL HEART DISEASE OF [place] CORONARY ARTERY W/O ANG PCTRS (2) CKD (chronic kidney disease) Code(s): N18.9 - CHRONIC KIDNEY DISEASE, UNSPECIFIED Qualifiers: Chronic kidney disease stage: unspecified stage Qualified Code(s): N18.9 - Chronic kidney disease, unspecified (3) Cellulitis Code(s): L03.90 - CELLULITIS, UNSPECIFIED Qualifiers: Site of cellulitis: extremity Site of cellulitis of extremity: lower extremity Laterality: left Qualified Code(s): L03.116 - Cellulitis of left lower limb (4) Hyperlipidemia Code(s): E78.5 - HYPERLIPIDEMIA, UNSPECIFIED (5) IDDM (insulin dependent diabetes mellitus) Code(s): E11.9 - TYPE 2 DIABETES MELLITUS WITHOUT COMPLICATIONS Z79.4 - LONG-TERM (CURRENT) USE OF INSULIN (6) HTN (hypertension) Code(s): I10 - ESSENTIAL (PRIMARY) HYPERTENSION Assessment/Plan plan patient received vancomycin and Zosyn in the ER Cultures are pending Troponin slightly elevated, check serial cardiac enzymes, cardiology evaluation We'll continue with Zosyn Elevate leg ID and vascular surgery evaluation with regards to the left leg cellulitis Check blood sugars Continue with medications DVT prophylaxisheparin subcutaneous time spentwhich includes assessment, plan, documentation and coordination of care40 minutes
--- NOTE | 2017-01-19 14:36 | EKG ---
Test Reason : Blood Pressure : / mmHG Vent. Rate : 077 BPM Atrial Rate : 077 BPM P-R Int : 172 ms QRS Dur : 142 ms QT Int : 428 ms P-R-T Axes : 052 -52 107 degrees QTc Int : 484 ms NORMAL SINUS RHYTHM POSSIBLE LEFT ATRIAL ENLARGEMENT RIGHT BUNDLE BRANCH BLOCK LEFT ANTERIOR FASCICULAR BLOCK BIFASCICULAR BLOCK LEFT VENTRICULAR HYPERTROPHY ABNORMAL ECG WHEN COMPARED WITH ECG OF 17-OCT-2016 16:40, NO SIGNIFICANT CHANGE WAS FOUND Confirmed by SIRISHA SMITH MD ([id number]) on 01/19/2017 2:36:26 PM Referred By: Confirmed By:SIRISHA SMITH MD
[2017-01-19 15:13] LABS: TROPONIN I 0.05 ng/ml (0.00-0.05)
[2017-01-19] MEDS: INSULIN SLIDING SCALE (NOVOLOG) 1 VIAL SQ SCH (17:08)
[2017-01-19] MEDS ORDERED: PIPERACILLIN/TAZOB 2.25 GM 2.25 GM in DEXTROSE 5%-WATER - 50 ML IVPB SCH (18:00)
[2017-01-19 19:08] LABS: TROPONIN I 0.05 ng/ml (0.00-0.05)
[2017-01-19] MEDS ORDERED: FLU VACCINE QUAD 60 MCG/0.5 ML (MDV 17-18) IM ONE (20:09)
[2017-01-19] MEDS: CARVEDILOL 12.5 MG TABLET (FP) PO SCH (21:40)
[2017-01-19] MEDS: HEPARIN NA (PORCINE) 5,000 UNITS/ML 1ML VIAL SQ SCH (21:40)
[2017-01-19] MEDS: ATORVASTATIN CA 20 MG TABLET (FP) PO SCH (21:40)
[2017-01-20 00:51] LABS: TROPONIN I 0.04 ng/ml (0.00-0.05)
[2017-01-20] MEDS: INSULIN SLIDING SCALE (NOVOLOG) 1 VIAL SQ SCH ×3 (06:12→17:03)
--- NOTE | 2017-01-20 07:04 | PN ---
Progress Note, Physician Chief Complaint: no acute distress - Current Medication List Current Medications: Active Medications Amlodipine Besylate (Norvasc -) 5 mg PO DAILY [facility] Atorvastatin Calcium (Lipitor -) 20 mg PO HS [facility] Last Admin: 01/19/17 21:40 Dose: 20 mg Carvedilol (Coreg -) 12.5 mg PO BID [facility] Last Admin: 01/19/17 21:40 Dose: 12.5 mg Clopidogrel Bisulfate (Plavix -) 75 mg PO DAILY [facility] Glipizide (Glucotrol Xl -) 5 mg PO DAILY [facility] Heparin Sodium (Porcine) (Heparin -) 5,000 unit SQ BID [facility] Last Admin: 01/19/17 21:40 Dose: 5,000 unit Piperacillin Sod/Tazobactam (Sod 2.25 gm/ Dextrose) 50 mls @ 100 mls/hr IVPB Q8H-IV [facility] PRN Reason: Protocol Insulin Aspart (Novolog Vial Sliding Scale -) 1 vial SQ TIDAC [facility] PRN Reason: Protocol Last Admin: 01/20/17 06:12 Dose: Not Given - Objective Vital Signs: Vital Signs Temperature 97.6 F 01/20/17 06:00 Pulse Rate 86 01/20/17 06:00 Respiratory Rate 20 01/20/17 06:00 Blood Pressure 133/66 01/20/17 06:00 O2 Sat by Pulse Oximetry (%) 95 01/19/17 18:20 Constitutional: Yes: No Distress Cardiovascular: Yes: Regular Rate and Rhythm Respiratory: Yes: Other (rales at bases) Gastrointestinal: Yes: Soft Edema: Yes Edema: LLE: 2+, RLE: 2+ Neurological: Yes: Alert, Oriented Labs: Laboratory Tests 01/19/17 01/19/17 01/20/17 08:35 18:00 00:01 WBC Hgb Plt Count Potassium BUN Creatinine Troponin I 0.05 0.04 B-Natriuretic Peptide 2608.59 H 01/20/17 01/20/17 01/20/17 06:15 06:15 06:15 WBC 6.3 Hgb 10.0 L Plt Count 189 Potassium 4.2 BUN 25 H D Creatinine 1.3 Troponin I 0.04 B-Natriuretic Peptide Assessment/Plan 56 year old man with a history of HTN, HLD, DMII, CAD s/p PCI x 4 2007 [place] POBA mLAD, OM1 2011 [facility], 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 Incidentally pt noted to have a troponin slightly above the upper limit of normal. 1. Elevated troponin-incidentally noted, no c/o chest pain or sob, no sig ischemia on ekg -h/o CAD with stents, h/o chronic stable angina -unlikely ACS: suspect acute on chronic diastolic CHF -Start PO Lasix and follow renal fxn closely: creatinine may improve with diuresis 2. Carotid stenosis-known total occlusion of BERTRAND with mild LICA stenosis -last evaluated 09/2016 -plan was for medical management at the time -outpatient f/up Prior pertinent cardiac data: -nuclear stress test 09/2016 showed no ischemia -echo 09/2016 showed normal LV systolic function, no sig valvular abnl
[2017-01-20 07:11] LABS: BASOPHIL 0.8 % (0-2.0); EOSINOPHIL 4.6 % (0-4.5); MCH 32.2 pg (25.7-33.7); MCHC 33.9 g/dl (32.0-35.9); MEAN PLT VOLUME 8.6 fl (7.5-11.1); NEUTROPHILS 78.7 % (42.8-82.8); PLATELET COUNT 189 K/MM3 (134-434); RDW 13.5 % (11.9-15.9); WHITE BLOOD COUNT 6.3 K/mm3 (4.0-10.0)
[2017-01-20 07:28] LABS: ALBUMIN 2.4 g/dl (3.4-5.0); ALK PHOS 75 U/L (45-117); ANION GAP 7 (8-16); BILIRUBIN,TOTAL 0.4 mg/dL (0.2-1.0); CO2 27 mmol/L (21-32); CREATININE 1.3 mg/dL (0.7-1.3); GLUCOSE,RANDOM 141 mg/dL (74-106); SGOT/AST 11 U/L (15-37); SGPT/ALT 13 U/L (12-78); TOT PROT 5.1 g/dl (6.4-8.2)
[2017-01-20 07:30] LABS: TROPONIN I 0.04 ng/ml (0.00-0.05)
--- NOTE | 2017-01-20 08:25 | PN ---
Progress Note (short form) - Note Progress Note: ID Full note dictated IDDM PVD S/P vascular LE surgery [address] Humphrey Selected Entries 01/20/17 06:00 Temperature 97.6 F Pulse Rate 86 Respiratory 20 Rate Blood Pressure 133/66 LLE swelling anterior pretib area with necrotic ulcer and multiple blisters Microbiology Laboratory Tests 01/19/17 01/20/17 01/20/17 12:05 06:15 06:15 WBC 6.3 Hgb 10.0 L Hct 29.6 L Plt Count 189 Neutrophils % 78.7 Eosinophils % 4.6 H Basophils % 0.8 BUN 25 H D Creatinine 1.3 Creat Clearance w eGFR 56.70 Urine RBC 4 Urine WBC <1 Assessment Necrotic ulcer ( dry ) with erythema swelling and blister formation in this diabetic male with PCV Definitely this is cellulitis Plan Unasyn 1.5 grs q 6 H CRP Advise vascular consult Nevaeh KIRAN
--- NOTE | 2017-01-20 08:31 | PN ---
Problem List - Problems (1) Cellulitis Code(s): L03.90 - CELLULITIS, UNSPECIFIED Qualifiers: Site of cellulitis: extremity Site of cellulitis of extremity: lower extremity Laterality: left Qualified Code(s): L03.116 - Cellulitis of left lower limb (2) Diabetes 1.5, managed as type 1 Code(s): E10.9 - TYPE 1 DIABETES MELLITUS WITHOUT COMPLICATIONS
--- NOTE | 2017-01-20 08:53 | CONSULT ---
Consult - History of Present Illness History of Present Illness: 56 year old diabetic smoker with history of left fem-tibial bypass 2013 presents with chronic leg swelling and wound on left ankle. No fever. He complains of numbness in his legs and feet. 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, Other (arterial insufficiency s/p left fem -tibial bypass- 2013) Cardio/Vascular: Yes: CAD, CHF, HTN, Hyperlipdemia, Other (PAD) Pulmonary: Yes: COPD Psych: Yes: Anxiety Endocrine: Yes: Diabetes Mellitus - Past Surgical History Past Surgical History: Yes: Bypass, Stent - Alcohol/Substance Use Hx Alcohol Use: No - Smoking History Smoking history: Never smoked Have you smoked in the past 12 months: No Aproximately how many cigarettes per day: 4 If you are a former smoker, when did you quit?: 3 months ago - Social History ADL: Independent History of Recent Travel: No Home Medications - Allergies Allergies/Adverse Reactions: Allergies Allergy/AdvReac Type Severity Reaction Status Date / Time No Known Drug Allergies Allergy Verified 01/19/17 07:01 - Home Medications Home Medications: Ambulatory Orders Glipizide [Glipizide ER] 5 mg PO DAILY 10/15/13 Amlodipine Besylate [Norvasc -] 5 mg PO DAILY 09/17/16 Clopidogrel Bisulfate [Plavix -] 75 mg PO DAILY 10/17/16 Carvedilol [Coreg -] 12.5 mg PO BID #60 tablet 10/24/16 Physical Exam Vital Signs: Vital Signs Temperature 97.6 F 01/20/17 06:00 Pulse Rate 86 01/20/17 06:00 Respiratory Rate 20 01/20/17 06:00 Blood Pressure 133/66 01/20/17 06:00 O2 Sat by Pulse Oximetry (%) 95 01/19/17 18:20 Edema: Yes Edema: LLE: 3+, RLE: 2+ Peripheral Pulses WNL: No Wound/Incision: Yes: Other (Crusty eschar left lower calf and ankle wounds. No cellulitis.) Labs: CBC, BMP 01/20/17 06:15 01/20/17 06:15 Assessment/Plan Leg swelling with superficial ulcers. Will assess bypass with Duplex and distal circulation with doppler/PVR Bactroban to wounds, leg elevation.
--- NOTE | 2017-01-20 11:21 | PN ---
Progress Note (short form) - Note Progress Note: pt seen/ examined . chart reviewed. comfortable all consults / f/u noted/ appreciated. jsut came back after getting doppler studies done. Vital Signs Temp 97.6 F 01/20/17 06:00 Pulse 86 01/20/17 06:00 Resp 20 01/20/17 06:00 BP 133/66 01/20/17 06:00 Pulse Ox 95 01/19/17 18:20 Intake & Output 01/19/17 01/19/17 01/20/17 11:59 23:59 11:59 Intake Total 0 0 Balance 0 0 Weight 180 lb 190 lb 11.2 oz Intake: IVPB 0 0 Other: Voiding Method Urinal Height 5 ft 4 in Body Mass Index (BMI) 30.9 Weight Measurement Method Built [facility] Weight Measurement Method Est/Stated by Patient Active Medications Amlodipine Besylate (Norvasc -) 5 mg PO DAILY [facility] Atorvastatin Calcium (Lipitor -) 20 mg PO HS [facility] Last Admin: 01/19/17 21:40 Dose: 20 mg Carvedilol (Coreg -) 12.5 mg PO BID [facility] Last Admin: 01/19/17 21:40 Dose: 12.5 mg Clopidogrel Bisulfate (Plavix -) 75 mg PO DAILY [facility] Furosemide (Lasix -) 40 mg PO DAILY [facility] Glipizide (Glucotrol Xl -) 5 mg PO DAILY [facility] Heparin Sodium (Porcine) (Heparin -) 5,000 unit SQ BID [facility] Last Admin: 01/19/17 21:40 Dose: 5,000 unit Ampicillin Sodium/Sulbactam (Sodium 1.5 gm/ Sodium Chloride) 100 mls @ 200 mls/ hr IVPB Q6H-IV [facility] Insulin Aspart (Novolog Vial Sliding Scale -) 1 vial SQ TIDAC [facility] PRN Reason: Protocol Last Admin: 01/20/17 06:12 Dose: Not Given Mupirocin (Bactroban 2% Ointment -) 1 applic TP BID [facility] CBC, BMP 01/20/17 06:15 01/20/17 06:15 Microbiology 01/19/17 12:05 Urine Culture - Final Urine - Urine Clean Catch NO GROWTH OBTAINED 01/19/17 09:11 Blood Culture - Preliminary Blood - Peripheral Venous NO GROWTH OBTAINED AFTER 24 HOURS, INCUBATION TO CONTINUE FOR 4 DAYS. 01/19/17 08:30 Blood Culture - Preliminary Blood - Peripheral Venous NO GROWTH OBTAINED AFTER 24 HOURS, INCUBATION TO CONTINUE FOR 4 DAYS. Physical Examination Constitutional: Yes: No Distress, Calm/ comfortable. Cardiovascular: Yes: Regular Rate and Rhythm, Murmur Respiratory: Yes: Diminished at bases Gastrointestinal: Yes: Normal Bowel Sounds, Soft, Abdomen, Obese. No: Distention, Tenderness Extremities: Yes: Erythema (left leg erythema, warm and tender,blisters +.) Edema: Yes Neuro- Alert and awake Psychiatric: Yes: Alert, Oriented Imaging - Results Chest X-ray: Image Reviewed (no infiltrate or congestion) EKG: Image Reviewed (sinus rhythm,RBBB) Problem List - Problems (1) ASHD (arteriosclerotic heart disease) Code(s): I25.10 - ATHSCL HEART DISEASE OF [place] CORONARY ARTERY W/O ANG PCTRS (2) CKD (chronic kidney disease) Code(s): N18.9 - CHRONIC KIDNEY DISEASE, UNSPECIFIED Qualifiers: Chronic kidney disease stage: unspecified stage Qualified Code(s): N18.9 - Chronic kidney disease, unspecified (3) Cellulitis Code(s): L03.90 - CELLULITIS, UNSPECIFIED Qualifiers: Site of cellulitis: extremity Site of cellulitis of extremity: lower extremity Laterality: left Qualified Code(s): L03.116 - Cellulitis of left lower limb (4) Hyperlipidemia Code(s): E78.5 - HYPERLIPIDEMIA, UNSPECIFIED (5) IDDM (insulin dependent diabetes mellitus) Code(s): E11.9 - TYPE 2 DIABETES MELLITUS WITHOUT COMPLICATIONS Z79.4 - YOLK SPRAY DRIER (CURRENT) USE OF INSULIN (6) HTN (hypertension) Code(s): I10 - ESSENTIAL (PRIMARY) HYPERTENSION Assessment/Plan continue abx per i/d- unasyn. doppler - will review monitor bgm echo noted smoking cessation counselling. will follow.
[2017-01-20] MEDS ORDERED: PT OWN MED DRAWER 7, Y5N ONE ×2 (11:22→20:32)
[2017-01-20] MEDS: CLOPIDOGREL BISULFATE 75 MG TABLET (FP) PO SCH (11:24)
[2017-01-20] MEDS: FUROSEMIDE 40 MG TABLET (FP) PO SCH (11:24)
[2017-01-20] MEDS: amLODIPine BESYLATE 5 MG TABLET (FP) PO SCH (11:24)
[2017-01-20] MEDS: CARVEDILOL 12.5 MG TABLET (FP) PO SCH ×2 (11:25→21:28)
[2017-01-20] MEDS: AMPICILLIN NA/SULBACTAM NA 1.5 GM in SODIUM CHLORIDE 100 ML IVPB SCH ×3 (11:25→20:39)
[2017-01-20] MEDS: HEPARIN NA (PORCINE) 5,000 UNITS/ML 1ML VIAL SQ SCH ×2 (11:26→21:28)
[2017-01-20] MEDS: glipiZIDE-XL 5 MG TAB.ER.24 PO SCH (11:26)
[2017-01-20] MEDS: ATORVASTATIN CA 20 MG TABLET (FP) PO SCH (21:28)
[2017-01-20] MEDS: MUPIROCIN 2% TOPICAL OINTMENT 22 GM TUBE TP SCH (22:09)
[2017-01-21] MEDS: AMPICILLIN NA/SULBACTAM NA 1.5 GM in SODIUM CHLORIDE 100 ML IVPB SCH ×4 (02:51→21:22)
[2017-01-21] MEDS: INSULIN SLIDING SCALE (NOVOLOG) 1 VIAL SQ SCH ×3 (06:08→16:58)
--- NOTE | 2017-01-21 06:38 | PN ---
Progress Note, Physician History of Present Illness: seen and examined today in nad. states his legs feel more swollen and tight today. no other new complaints. - Current Medication List Current Medications: Active Medications Amlodipine Besylate (Norvasc -) 5 mg PO DAILY [facility] Last Admin: 01/20/17 11:24 Dose: 5 mg Atorvastatin Calcium (Lipitor -) 20 mg PO HS [facility] Last Admin: 01/20/17 21:28 Dose: 20 mg Carvedilol (Coreg -) 12.5 mg PO BID [facility] Last Admin: 01/20/17 21:28 Dose: 12.5 mg Clopidogrel Bisulfate (Plavix -) 75 mg PO DAILY [facility] Last Admin: 01/20/17 11:24 Dose: 75 mg Furosemide (Lasix -) 40 mg PO DAILY [facility] Last Admin: 01/20/17 11:24 Dose: 40 mg Glipizide (Glucotrol Xl -) 5 mg PO DAILY [facility] Last Admin: 01/20/17 11:26 Dose: 5 mg Heparin Sodium (Porcine) (Heparin -) 5,000 unit SQ BID [facility] Last Admin: 01/20/17 21:28 Dose: 5,000 unit Ampicillin Sodium/Sulbactam (Sodium 1.5 gm/ Sodium Chloride) 100 mls @ 200 mls/ hr IVPB Q6H-IV [facility] Last Admin: 01/21/17 02:51 Dose: 200 mls/hr Insulin Aspart (Novolog Vial Sliding Scale -) 1 vial SQ TIDAC [facility] PRN Reason: Protocol Last Admin: 01/21/17 06:08 Dose: 2 units Mupirocin (Bactroban 2% Ointment -) 1 applic TP BID [facility] Last Admin: 01/20/17 22:09 Dose: 1 applic - Objective Vital Signs: Vital Signs Temperature 98.6 F 01/21/17 06:00 Pulse Rate 82 01/21/17 06:00 Respiratory Rate 20 01/21/17 06:00 Blood Pressure 140/60 01/21/17 06:00 O2 Sat by Pulse Oximetry (%) 95 01/19/17 18:20 Constitutional: Yes: No Distress, Calm Eyes: Yes: Conjunctiva Clear, EOM Intact, PERRL HENT: Yes: Atraumatic, Normocephalic Neck: Yes: Supple, Trachea Midline Cardiovascular: Yes: Regular Rate and Rhythm, S1, S2. No: Bradycardia, Tachycardia, Pulse Irregular, Bruit, JVD, Gallop, Murmur, Rub, S3, S4, Varicosities Respiratory: Yes: Regular, CTA Bilaterally. No: Rales, Rhonchi, Wheezes Gastrointestinal: Yes: Normal Bowel Sounds, Soft. 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 Incidentally pt noted to have a troponin slightly above the upper limit of normal. Elevated troponin-incidentally noted, no c/o chest pain or sob, no sig ischemia on ekg -h/o CAD with stents, h/o chronic stable angina -unlikely ACS: suspect acute on chronic diastolic CHF -trop trended down -echo showed normal LV/RV size and function and no sig valvular abnl -no additional ischemic work up needed at this point Edema-cellulitis, possible venous insuff, poss diastolic chf -receiving abx for cellulitis -lasix 40mg po daily started yesterday, pt reports increased urination -monitor I/os, check bun/creat/electrolytes today or tomorrow -if bun/creat trends back up would hold lasix -recc leg elevation Carotid stenosis-known total occlusion of BERTRAND with mild LICA stenosis -last evaluated 09/2016 -plan was for medical management at the time -outpatient f/up PAD -vascular following Prior pertinent cardiac data: -nuclear stress test 09/2016 showed no ischemia -echo 09/2016 showed normal LV systolic function, no sig valvular abnl
--- NOTE | 2017-01-21 09:59 | PN ---
Progress Note, Physician History of Present Illness: Awake, alert No c/o leg pain No c/o fever/ chills BC no growth - Current Medication List Current Medications: Active Medications Amlodipine Besylate (Norvasc -) 5 mg PO DAILY [facility] Last Admin: 01/20/17 11:24 Dose: 5 mg Atorvastatin Calcium (Lipitor -) 20 mg PO HS [facility] Last Admin: 01/20/17 21:28 Dose: 20 mg Carvedilol (Coreg -) 12.5 mg PO BID [facility] Last Admin: 01/20/17 21:28 Dose: 12.5 mg Clopidogrel Bisulfate (Plavix -) 75 mg PO DAILY [facility] Last Admin: 01/20/17 11:24 Dose: 75 mg Furosemide (Lasix -) 40 mg PO DAILY [facility] Last Admin: 01/20/17 11:24 Dose: 40 mg Glipizide (Glucotrol Xl -) 5 mg PO DAILY [facility] Last Admin: 01/20/17 11:26 Dose: 5 mg Heparin Sodium (Porcine) (Heparin -) 5,000 unit SQ BID [facility] Last Admin: 01/20/17 21:28 Dose: 5,000 unit Ampicillin Sodium/Sulbactam (Sodium 1.5 gm/ Sodium Chloride) 100 mls @ 200 mls/ hr IVPB Q6H-IV [facility] Last Admin: 01/21/17 08:21 Dose: 200 mls/hr Insulin Aspart (Novolog Vial Sliding Scale -) 1 vial SQ TIDAC [facility] PRN Reason: Protocol Last Admin: 01/21/17 06:08 Dose: 2 units Mupirocin (Bactroban 2% Ointment -) 1 applic TP BID [facility] Last Admin: 01/20/17 22:09 Dose: 1 applic - Objective Vital Signs: Vital Signs Temperature 98.6 F 01/21/17 06:00 Pulse Rate 82 01/21/17 06:00 Respiratory Rate 20 01/21/17 06:00 Blood Pressure 140/60 01/21/17 06:00 O2 Sat by Pulse Oximetry (%) 95 01/19/17 18:20 Constitutional: Yes: No Distress, Obese Cardiovascular: Yes: Regular Rate and Rhythm, S1, S2 Respiratory: Yes: CTA Bilaterally Gastrointestinal: Yes: Normal Bowel Sounds, Soft. No: Tenderness Extremities: Yes: Other (+ patchy erythema L LE with shallow ulcers) Labs: CBC, BMP 01/20/17 06:15 01/20/17 06:15 Assessment/Plan Cellulitis L LE IDDM PVD Continue Unasyn Local wound care
[2017-01-21] MEDS: CARVEDILOL 12.5 MG TABLET (FP) PO SCH ×2 (10:11→21:23)
[2017-01-21] MEDS: CLOPIDOGREL BISULFATE 75 MG TABLET (FP) PO SCH (10:11)
[2017-01-21] MEDS: glipiZIDE-XL 5 MG TAB.ER.24 PO SCH (10:12)
[2017-01-21] MEDS: HEPARIN NA (PORCINE) 5,000 UNITS/ML 1ML VIAL SQ SCH ×2 (10:12→21:23)
[2017-01-21] MEDS: FUROSEMIDE 40 MG TABLET (FP) PO SCH (10:12)
[2017-01-21] MEDS: amLODIPine BESYLATE 5 MG TABLET (FP) PO SCH (10:18)
--- NOTE | 2017-01-21 11:00 | PN ---
Progress Note, Physician Chief Complaint: Has decrease swelling of leg pain decreased - Current Medication List Current Medications: Active Medications Amlodipine Besylate (Norvasc -) 5 mg PO DAILY [facility] Last Admin: 01/21/17 10:18 Dose: 5 mg Atorvastatin Calcium (Lipitor -) 20 mg PO HS [facility] Last Admin: 01/20/17 21:28 Dose: 20 mg Carvedilol (Coreg -) 12.5 mg PO BID [facility] Last Admin: 01/21/17 10:11 Dose: 12.5 mg Clopidogrel Bisulfate (Plavix -) 75 mg PO DAILY [facility] Last Admin: 01/21/17 10:11 Dose: 75 mg Furosemide (Lasix -) 40 mg PO DAILY [facility] Last Admin: 01/21/17 10:12 Dose: 40 mg Glipizide (Glucotrol Xl -) 5 mg PO DAILY [facility] Last Admin: 01/21/17 10:12 Dose: 5 mg Heparin Sodium (Porcine) (Heparin -) 5,000 unit SQ BID [facility] Last Admin: 01/21/17 10:12 Dose: 5,000 unit Ampicillin Sodium/Sulbactam (Sodium 1.5 gm/ Sodium Chloride) 100 mls @ 200 mls/ hr IVPB Q6H-IV [facility] Last Admin: 01/21/17 08:21 Dose: 200 mls/hr Insulin Aspart (Novolog Vial Sliding Scale -) 1 vial SQ TIDAC [facility] PRN Reason: Protocol Last Admin: 01/21/17 06:08 Dose: 2 units Mupirocin (Bactroban 2% Ointment -) 1 applic TP BID [facility] Last Admin: 01/20/17 22:09 Dose: 1 applic - Objective Vital Signs: Vital Signs Temperature 98.6 F 01/21/17 06:00 Pulse Rate 82 01/21/17 06:00 Respiratory Rate 20 01/21/17 06:00 Blood Pressure 140/60 01/21/17 06:00 O2 Sat by Pulse Oximetry (%) 95 01/19/17 18:20 Constitutional: Yes: No Distress, Calm Cardiovascular: Yes: Regular Rate and Rhythm Respiratory: Yes: Diminished Gastrointestinal: Yes: Normal Bowel Sounds, Soft. No: Distention, Tenderness Extremities: Yes: Erythema (wounds noted) Edema: Yes Edema: LLE: 2+ Neurological: Yes: Alert, Oriented Labs: CBC, BMP 01/20/17 06:15 01/20/17 06:15 Problem List - Problems (1) ASHD (arteriosclerotic heart disease) Code(s): I25.10 - ATHSCL HEART DISEASE OF [place] CORONARY ARTERY W/O ANG PCTRS (2) CKD (chronic kidney disease) Code(s): N18.9 - CHRONIC KIDNEY DISEASE, UNSPECIFIED Qualifiers: Chronic kidney disease stage: unspecified stage Qualified Code(s): N18.9 - Chronic kidney disease, unspecified (3) Cellulitis Code(s): L03.90 - CELLULITIS, UNSPECIFIED Qualifiers: Site of cellulitis: extremity Site of cellulitis of extremity: lower extremity Laterality: left Qualified Code(s): L03.116 - Cellulitis of left lower limb (4) Hyperlipidemia Code(s): E78.5 - HYPERLIPIDEMIA, UNSPECIFIED (5) IDDM (insulin dependent diabetes mellitus) Code(s): E11.9 - TYPE 2 DIABETES MELLITUS WITHOUT COMPLICATIONS Z79.4 - ELECTRONICS TECH (CURRENT) USE OF INSULIN (6) HTN (hypertension) Code(s): I10 - ESSENTIAL (PRIMARY) HYPERTENSION Assessment/Plan plan continue Unasyn Cultures negative Elevate leg ID and vascular surgery evaluation noted Check blood sugars Continue with medications DVT prophylaxisheparin subcutaneous
[2017-01-21] MEDS ORDERED: INSULIN (NOVOLOG) ASPART 100 UNITS/ML 10ML VIAL ONE ×2 (12:04→21:19)
[2017-01-21] MEDS: MUPIROCIN 2% TOPICAL OINTMENT 22 GM TUBE TP SCH ×2 (12:09→21:23)
--- NOTE | 2017-01-21 14:45 | PN ---
Progress Note (short form) - Note Progress Note: Duplex and doppler show left leg bypass patent with good distal flow. Right SFA occlusion (chronic). Add MICHAEL wrap to left leg to control edema.
[2017-01-21] MEDS ORDERED: PT OWN MED DRAWER 7, Y5N ONE ×2 (16:54→20:08)
[2017-01-21] MEDS: ATORVASTATIN CA 20 MG TABLET (FP) PO SCH (21:23)
[2017-01-22] MEDS: AMPICILLIN NA/SULBACTAM NA 1.5 GM in SODIUM CHLORIDE 100 ML IVPB SCH ×4 (02:11→21:15)
[2017-01-22] MEDS: INSULIN SLIDING SCALE (NOVOLOG) 1 VIAL SQ SCH ×3 (06:10→16:50)
[2017-01-22] MEDS ORDERED: INSULIN (NOVOLOG) ASPART 100 UNITS/ML 10ML VIAL ONE ×2 (06:21→11:30)
[2017-01-22] MEDS ORDERED: PT OWN MED DRAWER 7, Y5N ONE ×5 (06:21→21:04)
--- NOTE | 2017-01-22 08:30 | PN ---
Progress Note, Physician History of Present Illness: seen and examined today in nad. sitting in chair with feet on the ground. no overnight events. no new complaints. states he tried to keep his legs elevated yesterday but they were not for much of the day. - Current Medication List Current Medications: Active Medications Amlodipine Besylate (Norvasc -) 5 mg PO DAILY [facility] Last Admin: 01/21/17 10:18 Dose: 5 mg Atorvastatin Calcium (Lipitor -) 20 mg PO HS [facility] Last Admin: 01/21/17 21:23 Dose: 20 mg Carvedilol (Coreg -) 12.5 mg PO BID [facility] Last Admin: 01/21/17 21:23 Dose: 12.5 mg Clopidogrel Bisulfate (Plavix -) 75 mg PO DAILY [facility] Last Admin: 01/21/17 10:11 Dose: 75 mg Furosemide (Lasix -) 40 mg PO DAILY [facility] Last Admin: 01/21/17 10:12 Dose: 40 mg Glipizide (Glucotrol Xl -) 5 mg PO DAILY [facility] Last Admin: 01/21/17 10:12 Dose: 5 mg Heparin Sodium (Porcine) (Heparin -) 5,000 unit SQ BID [facility] Last Admin: 01/21/17 21:23 Dose: 5,000 unit Ampicillin Sodium/Sulbactam (Sodium 1.5 gm/ Sodium Chloride) 100 mls @ 200 mls/ hr IVPB Q6H-IV [facility] Last Admin: 01/22/17 02:11 Dose: 200 mls/hr Insulin Aspart (Novolog Vial Sliding Scale -) 1 vial SQ TIDAC [facility] PRN Reason: Protocol Last Admin: 01/22/17 06:10 Dose: Not Given Mupirocin (Bactroban 2% Ointment -) 1 applic TP BID [facility] Last Admin: 01/21/17 21:23 Dose: 1 applic - Objective Vital Signs: Vital Signs Temperature 98.7 F 01/22/17 06:00 Pulse Rate 74 01/22/17 06:00 Respiratory Rate 18 01/22/17 06:00 Blood Pressure 126/56 01/22/17 06:00 O2 Sat by Pulse Oximetry (%) 95 01/19/17 18:20 Constitutional: Yes: No Distress, Calm, Obese Eyes: Yes: Conjunctiva Clear, EOM Intact, PERRL HENT: Yes: Atraumatic, Normocephalic Neck: Yes: Supple, Trachea Midline Cardiovascular: Yes: Regular Rate and Rhythm, S1, S2. No: Bradycardia, Tachycardia, Pulse Irregular, Bruit, JVD, Gallop, Murmur, Rub, S3, S4, Varicosities Respiratory: Yes: Regular, CTA Bilaterally. No: Rales, Rhonchi, Wheezes Gastrointestinal: Yes: Normal Bowel Sounds, Soft. 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 Incidentally pt noted to have a troponin slightly above the upper limit of normal. Elevated troponin-incidentally noted, no c/o chest pain or sob, no sig ischemia on ekg -h/o CAD with stents, h/o chronic stable angina -unlikely ACS: suspect acute on chronic diastolic CHF -trop trended down -echo showed normal LV/RV size and function and no sig valvular abnl -no additional ischemic work up needed at this point -[facility] outpatient f/up Edema-cellulitis, venous insuff, poss diastolic chf -receiving abx for cellulitis -leg elevation, demonstrated how to put feet up on chair today while sitting -cont Lasix 40mg po daily to assist in improving edema as it is causing him discomfort -monitor I/os, check bun/creat/electrolytes -if bun/creat trends back up would hold lasix -leg wraps to help edema -vascular input appreciated Carotid stenosis-known total occlusion of BERTRAND with mild LICA stenosis -last evaluated 09/2016 -plan was for medical management at this time -outpatient f/up Prior pertinent cardiac data: -nuclear stress test 09/2016 showed no ischemia -echo 09/2016 showed normal LV systolic function, no sig valvular abnl
[2017-01-22] MEDS: amLODIPine BESYLATE 5 MG TABLET (FP) PO SCH (09:16)
[2017-01-22] MEDS: HEPARIN NA (PORCINE) 5,000 UNITS/ML 1ML VIAL SQ SCH ×2 (09:16→21:15)
[2017-01-22] MEDS: FUROSEMIDE 40 MG TABLET (FP) PO SCH (09:16)
[2017-01-22] MEDS: CLOPIDOGREL BISULFATE 75 MG TABLET (FP) PO SCH (09:16)
[2017-01-22] MEDS: CARVEDILOL 12.5 MG TABLET (FP) PO SCH ×2 (09:16→21:14)
[2017-01-22] MEDS: glipiZIDE-XL 5 MG TAB.ER.24 PO SCH (09:17)
--- NOTE | 2017-01-22 10:10 | PN ---
Progress Note, Physician Chief Complaint: lying in bed no distress he put his leg up a few times - Current Medication List Current Medications: Active Medications Amlodipine Besylate (Norvasc -) 5 mg PO DAILY [facility] Last Admin: 01/22/17 09:16 Dose: 5 mg Atorvastatin Calcium (Lipitor -) 20 mg PO HS [facility] Last Admin: 01/21/17 21:23 Dose: 20 mg Carvedilol (Coreg -) 12.5 mg PO BID [facility] Last Admin: 01/22/17 09:16 Dose: 12.5 mg Clopidogrel Bisulfate (Plavix -) 75 mg PO DAILY [facility] Last Admin: 01/22/17 09:16 Dose: 75 mg Furosemide (Lasix -) 40 mg PO DAILY [facility] Last Admin: 01/22/17 09:16 Dose: 40 mg Glipizide (Glucotrol Xl -) 5 mg PO DAILY [facility] Last Admin: 01/22/17 09:17 Dose: 5 mg Heparin Sodium (Porcine) (Heparin -) 5,000 unit SQ BID [facility] Last Admin: 01/22/17 09:16 Dose: 5,000 unit Ampicillin Sodium/Sulbactam (Sodium 1.5 gm/ Sodium Chloride) 100 mls @ 200 mls/ hr IVPB Q6H-IV [facility] Last Admin: 01/22/17 09:16 Dose: 200 mls/hr Insulin Aspart (Novolog Vial Sliding Scale -) 1 vial SQ TIDAC [facility] PRN Reason: Protocol Last Admin: 01/22/17 06:10 Dose: Not Given Mupirocin (Bactroban 2% Ointment -) 1 applic TP BID [facility] Last Admin: 01/21/17 21:23 Dose: 1 applic - Objective Vital Signs: Vital Signs Temperature 98.0 F 01/22/17 08:35 Pulse Rate 65 01/22/17 08:35 Respiratory Rate 20 01/22/17 08:35 Blood Pressure 111/59 01/22/17 08:35 O2 Sat by Pulse Oximetry (%) 95 01/19/17 18:20 Constitutional: Yes: No Distress Cardiovascular: Yes: Regular Rate and Rhythm, Murmur Respiratory: Yes: CTA Bilaterally Gastrointestinal: Yes: Normal Bowel Sounds, Soft, Abdomen, Obese. No: Distention, Tenderness Extremities: Yes: Erythema (decreased) Edema: Yes Edema: LLE: 2+ Labs: CBC, BMP 01/20/17 06:15 09/22/17 06:15 Problem List - Problems (1) ASHD (arteriosclerotic heart disease) Code(s): I25.10 - ATHSCL HEART DISEASE OF [place] CORONARY ARTERY W/O ANG PCTRS (2) CKD (chronic kidney disease) Code(s): N18.9 - CHRONIC KIDNEY DISEASE, UNSPECIFIED Qualifiers: Chronic kidney disease stage: unspecified stage Qualified Code(s): N18.9 - Chronic kidney disease, unspecified (3) Cellulitis Code(s): L03.90 - CELLULITIS, UNSPECIFIED Qualifiers: Site of cellulitis: extremity Site of cellulitis of extremity: lower extremity Laterality: left Qualified Code(s): L03.116 - Cellulitis of left lower limb (4) Hyperlipidemia Code(s): E78.5 - HYPERLIPIDEMIA, UNSPECIFIED (5) IDDM (insulin dependent diabetes mellitus) Code(s): E11.9 - TYPE 2 DIABETES MELLITUS WITHOUT COMPLICATIONS Z79.4 - CUSTODIAL (CURRENT) USE OF INSULIN (6) HTN (hypertension) Code(s): I10 - ESSENTIAL (PRIMARY) HYPERTENSION Assessment/Plan plan continue Unasyn Cultures negative Elevate leg Check blood sugars MICHAEL wrap Continue with medications DVT prophylaxisheparin subcutaneous
[2017-01-22] MEDS: MUPIROCIN 2% TOPICAL OINTMENT 22 GM TUBE TP SCH ×3 (11:08→22:45)
--- NOTE | 2017-01-22 13:20 | PN ---
Progress Note, Physician History of Present Illness: Awake, alert No c/o leg pain No fever/ chills WBC WNL - Current Medication List Current Medications: Active Medications Amlodipine Besylate (Norvasc -) 5 mg PO DAILY [facility] Last Admin: 01/22/17 09:16 Dose: 5 mg Atorvastatin Calcium (Lipitor -) 20 mg PO HS [facility] Last Admin: 01/21/17 21:23 Dose: 20 mg Carvedilol (Coreg -) 12.5 mg PO BID [facility] Last Admin: 01/22/17 09:16 Dose: 12.5 mg Clopidogrel Bisulfate (Plavix -) 75 mg PO DAILY [facility] Last Admin: 01/22/17 09:16 Dose: 75 mg Furosemide (Lasix -) 40 mg PO DAILY [facility] Last Admin: 01/22/17 09:16 Dose: 40 mg Glipizide (Glucotrol Xl -) 5 mg PO DAILY [facility] Last Admin: 01/22/17 09:17 Dose: 5 mg Heparin Sodium (Porcine) (Heparin -) 5,000 unit SQ BID [facility] Last Admin: 01/22/17 09:16 Dose: 5,000 unit Ampicillin Sodium/Sulbactam (Sodium 1.5 gm/ Sodium Chloride) 100 mls @ 200 mls/ hr IVPB Q6H-IV [facility] Last Admin: 01/22/17 09:16 Dose: 200 mls/hr Insulin Aspart (Novolog Vial Sliding Scale -) 1 vial SQ TIDAC [facility] PRN Reason: Protocol Last Admin: 01/22/17 11:33 Dose: 2 units Mupirocin (Bactroban 2% Ointment -) 1 applic TP BID [facility] Last Admin: 01/22/17 11:22 Dose: 1 applic - Objective Vital Signs: Vital Signs Temperature 98.0 F 01/22/17 08:35 Pulse Rate 65 01/22/17 08:35 Respiratory Rate 20 01/22/17 08:35 Blood Pressure 111/59 01/22/17 08:35 O2 Sat by Pulse Oximetry (%) 95 01/19/17 18:20 Constitutional: Yes: No Distress Cardiovascular: Yes: Regular Rate and Rhythm, S1, S2 Respiratory: Yes: CTA Bilaterally Gastrointestinal: Yes: Normal Bowel Sounds, Soft. No: Tenderness Edema: LLE: 2+ Integumentary: Yes: Other (decreased erythema/ warmth L LE + ulcerations; no drainage) Labs: CBC, BMP 01/20/17 06:15 01/20/17 06:15 Assessment/Plan Cellulitis L LE- improved IDDM PVD Continue Unasyn Local wound care
[2017-01-22] MEDS: ATORVASTATIN CA 20 MG TABLET (FP) PO SCH (21:14)
[2017-01-23] MEDS ORDERED: PT OWN MED DRAWER 7, Y5N ONE ×2 (02:11→09:18)
[2017-01-23] MEDS: AMPICILLIN NA/SULBACTAM NA 1.5 GM in SODIUM CHLORIDE 100 ML IVPB SCH ×2 (02:17→09:24)
[2017-01-23] MEDS: INSULIN SLIDING SCALE (NOVOLOG) 1 VIAL SQ SCH ×3 (06:30→16:12)
[2017-01-23 08:32] LABS: MCH 32.1 pg (25.7-33.7); MCHC 33.6 g/dl (32.0-35.9); MEAN CELL VOLUME 95.6 fl (80-96); MEAN PLT VOLUME 9.4 fl (7.5-11.1); RDW 13.8 % (11.9-15.9); WHITE BLOOD COUNT 8.4 K/mm3 (4.0-10.0)
[2017-01-23 09:04] LABS: ANION GAP 7 (8-16); CO2 27 mmol/L (21-32); CREATININE 1.5 mg/dL (0.7-1.3); GLUCOSE,RANDOM 86 mg/dL (74-106)
--- NOTE | 2017-01-23 09:23 | PN ---
Progress Note, Physician History of Present Illness: seen and examined today in nad. sitting in chair again feet on the floor. states he kept them elevated for a short time yesterday but was uncomfortable so put his legs back down. states he felt a little lightheaded this am when getting up. - Current Medication List Current Medications: Active Medications Amlodipine Besylate (Norvasc -) 5 mg PO DAILY [facility] Last Admin: 01/22/17 09:16 Dose: 5 mg Atorvastatin Calcium (Lipitor -) 20 mg PO HS [facility] Last Admin: 01/22/17 21:14 Dose: 20 mg Carvedilol (Coreg -) 12.5 mg PO BID [facility] Last Admin: 01/22/17 21:14 Dose: 12.5 mg Clopidogrel Bisulfate (Plavix -) 75 mg PO DAILY [facility] Last Admin: 01/22/17 09:16 Dose: 75 mg Furosemide (Lasix -) 40 mg PO DAILY [facility] Last Admin: 01/22/17 09:16 Dose: 40 mg Glipizide (Glucotrol Xl -) 5 mg PO DAILY [facility] Last Admin: 01/22/17 09:17 Dose: 5 mg Heparin Sodium (Porcine) (Heparin -) 5,000 unit SQ BID [facility] Last Admin: 01/22/17 21:15 Dose: 5,000 unit Ampicillin Sodium/Sulbactam (Sodium 1.5 gm/ Sodium Chloride) 100 mls @ 200 mls/ hr IVPB Q6H-IV [facility] Last Admin: 01/23/17 02:17 Dose: 200 mls/hr Insulin Aspart (Novolog Vial Sliding Scale -) 1 vial SQ TIDAC [facility] PRN Reason: Protocol Last Admin: 01/23/17 06:30 Dose: Not Given Mupirocin (Bactroban 2% Ointment -) 1 applic TP BID [facility] Last Admin: 01/22/17 22:45 Dose: 1 applic - Objective Vital Signs: Vital Signs Temperature 98.6 F 01/23/17 05:30 Pulse Rate 76 01/23/17 05:30 Respiratory Rate 18 01/23/17 05:30 Blood Pressure 138/65 01/23/17 05:30 O2 Sat by Pulse Oximetry (%) 95 01/19/17 18:20 Constitutional: Yes: No Distress, Calm, Obese Eyes: Yes: Conjunctiva Clear, EOM Intact, PERRL HENT: Yes: Atraumatic, Normocephalic Neck: Yes: Supple, Trachea Midline Cardiovascular: Yes: Regular Rate and Rhythm, S1, S2. No: Bradycardia, Tachycardia, Pulse Irregular, Bruit, JVD, Gallop, Murmur, Rub, S3, S4, Varicosities Respiratory: Yes: Regular, Diminished. No: On Nasal O2, Rales, Rhonchi, SOB, Wheezes Gastrointestinal: Yes: Normal Bowel Sounds, Soft. 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 Incidentally pt noted to have a troponin slightly above the upper limit of normal. Elevated troponin-incidentally noted, no c/o chest pain or sob, no sig ischemia on ekg -no additional ischemic work up needed at this point -nuclear stress test 09/2016 showed no ischemia -echo 09/2016 showed normal LV systolic function, no sig valvular abnl -[facility] [place] f/up Edema-cellulitis, venous insuff, poss diastolic chf -receiving abx for cellulitis, seems to be improving -again recc leg elevation and compression stockings as tolerated for edema -cont Lasix 40mg po daily for now, bun/creat trending back up, if continues to trend up may need to stop lasix -vascular input appreciated -[facility] [place] f/up Carotid stenosis-known total occlusion of BERTRAND with mild LICA stenosis -last evaluated 09/2016 -plan was for medical management at this time -outpatient f/up
[2017-01-23] MEDS: FUROSEMIDE 40 MG TABLET (FP) PO SCH (09:24)
[2017-01-23] MEDS: amLODIPine BESYLATE 5 MG TABLET (FP) PO SCH (09:24)
[2017-01-23] MEDS: CARVEDILOL 12.5 MG TABLET (FP) PO SCH ×2 (09:24→21:50)
[2017-01-23] MEDS: HEPARIN NA (PORCINE) 5,000 UNITS/ML 1ML VIAL SQ SCH ×2 (09:25→21:50)
[2017-01-23] MEDS: glipiZIDE-XL 5 MG TAB.ER.24 PO SCH (09:26)
[2017-01-23] MEDS: CLOPIDOGREL BISULFATE 75 MG TABLET (FP) PO SCH (09:26)
[2017-01-23] MEDS: MUPIROCIN 2% TOPICAL OINTMENT 22 GM TUBE TP SCH ×2 (09:26→21:51)
[2017-01-23 10:21] LABS: PLATELET COMMENT2 MOD LARGE PLTS; PLATELET COUNT 196 K/MM3 (134-434); PLATELET ESTIMATE ADEQUATE (NORMAL)
--- NOTE | 2017-01-23 11:21 | PN ---
Progress Note (short form) - Note Progress Note: ID Unasyn Seen by Dr Humphrey Selected Entries 01/23/17 05:30 Temperature 98.6 F Pulse Rate 76 Respiratory 18 Rate Blood Pressure 138/[address] crusted healing wound Microbiology 01/19/17 12:05 Urine - Urine Clean Catch Urine Culture - Final NO GROWTH OBTAINED 01/19/17 09:11 Blood - Peripheral Venous Blood Culture - Preliminary NO GROWTH OBTAINED AFTER 96 HOURS, INCUBATION TO CONTINUE FOR 1 DAYS. 01/19/17 08:30 Blood - Peripheral Venous Blood Culture - Preliminary NO GROWTH OBTAINED AFTER 96 HOURS, INCUBATION TO CONTINUE FOR 1 DAYS. Laboratory Tests 01/23/17 01/23/17 07:30 07:30 WBC 8.4 D Hgb 9.2 L Hct 27.3 L Plt Count 196 BUN 29 H Creatinine 1.5 H Assessment At this time further antibiotics unnecessary will stop Jane Herring MD Problem List - Problems (1) Cellulitis Code(s): L03.90 - CELLULITIS, UNSPECIFIED Qualifiers: Site of cellulitis: extremity Site of cellulitis of extremity: lower extremity Laterality: left Qualified Code(s): L03.116 - Cellulitis of left lower limb (2) Diabetes 1.5, managed as type 1 Code(s): E10.9 - TYPE 1 DIABETES MELLITUS WITHOUT COMPLICATIONS
--- NOTE | 2017-01-23 12:20 | PN ---
Progress Note (short form) - Note Progress Note: pt seen/ examined . chart reviewed. comfortable - except felt little dizzy today. all consults / f/u noted/ appreciated. denies cp/sob/abd pain. i/d f/u noted-- abx stopped today Vital Signs Temp 98.6 F 01/23/17 05:30 Pulse 76 01/23/17 05:30 Resp 18 01/23/17 05:30 BP 138/65 01/23/17 05:30 Pulse Ox 95 01/19/17 18:20 Intake & Output 01/22/17 01/23/17 01/23/17 23:59 11:59 23:59 Intake Total 500 Output Total 2960 600 Balance -2460 -600 Intake: Oral 500 Output: Urine 2960 600 Void 2960 600 Other: Voiding Method Urinal Bowel Movement Yes No # Bowel Movements 1 Active Medications Amlodipine Besylate (Norvasc -) 5 mg PO DAILY [facility] Last Admin: 01/23/17 09:24 Dose: 5 mg Atorvastatin Calcium (Lipitor -) [address] [facility] Last Admin: 01/22/17 21:14 Dose: 20 mg Carvedilol (Coreg -) 12.5 mg PO BID [facility] Last Admin: 01/23/17 09:24 Dose: 12.5 mg Clopidogrel Bisulfate (Plavix -) 75 mg PO DAILY [facility] Last Admin: 01/23/17 09:26 Dose: 75 mg Furosemide (Lasix -) 40 mg PO DAILY [facility] Last Admin: 01/23/17 09:24 Dose: 40 mg Glipizide (Glucotrol Xl -) 5 mg PO DAILY [facility] Last Admin: 01/23/17 09:26 Dose: 5 mg Heparin Sodium (Porcine) (Heparin -) 5,000 unit SQ BID [facility] Last Admin: 01/23/17 09:25 Dose: 5,000 unit Insulin Aspart (Novolog Vial Sliding Scale -) 1 vial SQ TIDAC [facility] PRN Reason: Protocol Last Admin: 01/23/17 10:43 Dose: Not Given Mupirocin (Bactroban 2% Ointment -) 1 applic TP BID [facility] Last Admin: 01/23/17 09:26 Dose: 1 applic CBC, BMP 01/23/17 07:30 01/23/17 07:30 Microbiology 01/19/17 09:11 Blood Culture - Preliminary Blood - Peripheral Venous NO GROWTH OBTAINED AFTER 96 HOURS, INCUBATION TO CONTINUE FOR 1 DAYS. 01/19/17 08:30 Blood Culture - Preliminary Blood - Peripheral Venous NO GROWTH OBTAINED AFTER 96 HOURS, INCUBATION TO CONTINUE FOR 1 DAYS. Physical Examination Constitutional: Yes: No Distress, comfortable. Cardiovascular: Yes: Regular Rate and Rhythm, Murmur Respiratory: Yes: Diminished at bases Gastrointestinal: Yes: Normal Bowel Sounds, Soft, Abdomen, Obese. No: Distention, Tenderness Extremities: Yes: Erythema (left leg erythema, -- improved. Edema: trace Neuro- Alert oriented x 3. Psychiatric: Yes: Alert, Oriented. Imaging - Results Chest X-ray: Image Reviewed (no infiltrate or congestion) EKG: Image Reviewed (sinus rhythm,RBBB) Assessment/Plan clinically better off abx. daily oob - chair physical therapy monitor today check orthostasis cbc in am if stable-- consider d/cf in am will follow. Problem List - Problems (1) ASHD (arteriosclerotic heart disease) Code(s): I25.10 - ATHSCL HEART DISEASE OF [place] CORONARY ARTERY W/O ANG PCTRS (2) Cellulitis Code(s): L03.90 - CELLULITIS, UNSPECIFIED Qualifiers: Site of cellulitis: extremity Site of cellulitis of extremity: lower extremity Laterality: left Qualified Code(s): L03.116 - Cellulitis of left lower limb (3) Diabetes 1.5, managed as type 1 Code(s): E10.9 - TYPE 1 DIABETES MELLITUS WITHOUT COMPLICATIONS (4) Diabetic neuropathy Code(s): E11.40 - TYPE 2 DIABETES MELLITUS WITH DIABETIC NEUROPATHY, UNSP Qualifiers: Diabetes mellitus type: due to underlying condition
[2017-01-23] MEDS: ATORVASTATIN CA 20 MG TABLET (FP) PO SCH (21:50)
[2017-01-24] MEDS: INSULIN SLIDING SCALE (NOVOLOG) 1 VIAL SQ SCH ×3 (06:43→16:59)
[2017-01-24 07:16] LABS: BASOPHIL 0.6 % (0-2.0); EOSINOPHIL 4.9 % (0-4.5); MCH 32.4 pg (25.7-33.7); MEAN CELL VOLUME 95.4 fl (80-96); MEAN PLT VOLUME 8.8 fl (7.5-11.1); NEUTROPHILS 71.8 % (42.8-82.8); PLATELET COUNT 183 K/MM3 (134-434); RDW 13.8 % (11.9-15.9); WHITE BLOOD COUNT 6.7 K/mm3 (4.0-10.0)
--- NOTE | 2017-01-24 08:37 | PN ---
Progress Note (short form) - Note Progress Note: Left leg swelling unchanged. Wounds dry with serous drainage Less erythema MICHAEL wrap to control swelling I will follow in my office.
--- NOTE | 2017-01-24 08:48 | PN ---
Progress Note, Physician Chief Complaint: feeling better no distress - Current Medication List Current Medications: Active Medications Amlodipine Besylate (Norvasc -) 5 mg PO DAILY [facility] Last Admin: 01/23/17 09:24 Dose: 5 mg Atorvastatin Calcium (Lipitor -) 20 mg PO HS [facility] Last Admin: 01/23/17 21:50 Dose: 20 mg Carvedilol (Coreg -) 12.5 mg PO BID [facility] Last Admin: 01/23/17 21:50 Dose: 12.5 mg Clopidogrel Bisulfate (Plavix -) 75 mg PO DAILY [facility] Last Admin: 01/23/17 09:26 Dose: 75 mg Furosemide (Lasix -) 40 mg PO DAILY [facility] Last Admin: 01/23/17 09:24 Dose: 40 mg Glipizide (Glucotrol Xl -) 5 mg PO DAILY [facility] Last Admin: 01/23/17 09:26 Dose: 5 mg Heparin Sodium (Porcine) (Heparin -) 5,000 unit SQ BID [facility] Last Admin: 01/23/17 21:50 Dose: 5,000 unit Insulin Aspart (Novolog Vial Sliding Scale -) 1 vial SQ TIDAC [facility] PRN Reason: Protocol Last Admin: 01/24/17 06:43 Dose: Not Given Mupirocin (Bactroban 2% Ointment -) 1 applic TP BID [facility] Last Admin: 01/23/17 21:51 Dose: 1 applic - Objective Vital Signs: Vital Signs Temperature 98.1 F 01/24/17 06:00 Pulse Rate 79 01/24/17 06:00 Respiratory Rate 18 01/24/17 06:00 Blood Pressure 124/61 01/24/17 06:00 O2 Sat by Pulse Oximetry (%) 96 01/23/17 22:00 Constitutional: Yes: No Distress Cardiovascular: Yes: Regular Rate and Rhythm Respiratory: Yes: CTA Bilaterally (no rales) Gastrointestinal: Yes: Soft Edema: No Neurological: Yes: Alert Labs: CBC, BMP 01/24/17 06:10 01/23/17 07:30 Microbiology 01/19/17 08:30 Blood - Peripheral Venous Blood Culture - Final NO GROWTH AFTER 5 DAYS INCUBATION 01/19/17 09:11 Blood - Peripheral Venous Blood Culture - Preliminary NO GROWTH OBTAINED AFTER 96 HOURS, INCUBATION TO CONTINUE FOR 1 DAYS. 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 Incidentally pt noted to have a troponin slightly above the upper limit of normal. Elevated troponin-incidentally noted, no c/o chest pain or sob, no sig ischemia on ekg: likely due to acute on chronic diastolic CHF -no additional ischemic work up needed at this point -nuclear stress test 09/2016 showed no ischemia -echo 09/2016 showed normal LV systolic function, no sig valvular abnl Edema-cellulitis, venous insuff, poss diastolic chf -receiving abx for cellulitis, seems to be improving -again recc leg elevation and compression stockings as tolerated for edema -cont Lasix 40mg po daily for now, bun/creat trending back up, if continues to trend up may need to stop lasix -Would repeat BMP today, will order Carotid stenosis-known total occlusion of BERTRAND with mild LICA stenosis -last evaluated 09/2016 -plan was for medical management at this time -outpatient f/up
[2017-01-24 09:16] LABS: ANION GAP 4 (8-16); CO2 29 mmol/L (21-32); CREATININE 1.4 mg/dL (0.7-1.3); GLUCOSE,RANDOM 75 mg/dL (74-106)
--- NOTE | 2017-01-24 10:01 | DS ---
Physical Examination Vital Signs: Vital Signs Temperature 98.1 F 01/24/17 06:00 Pulse Rate 79 01/24/17 06:00 Respiratory Rate 18 01/24/17 06:00 Blood Pressure 124/61 01/24/17 06:00 O2 Sat by Pulse Oximetry (%) 96 01/23/17 22:00 Constitutional: Yes: No Distress, Calm Cardiovascular: Yes: Regular Rate and Rhythm Respiratory: Yes: CTA Bilaterally Gastrointestinal: Yes: Normal Bowel Sounds, Soft. No: Tenderness Edema: Yes (left leg) Labs: CBC, BMP 01/24/17 06:10 01/24/17 06:10 Discharge Summary Reason For Visit: CELLULITIS Current Active Problems ASHD (arteriosclerotic heart disease) (Acute) Alcohol intoxication (Acute) CKD (chronic kidney disease) (Acute) Cellulitis (Acute) Chest pain (Acute) Chronic stable angina (Acute) Diabetes 1.5, managed as type 1 (Acute) Diabetic neuropathy (Acute) Diastolic CHF (Acute) Edema (Acute) Hyperlipidemia (Acute) IDDM (insulin dependent diabetes mellitus) (Acute) Lower back pain (Acute) Stroke (Acute) Urinary incontinence (Acute) Hospital Course: Admitted for left leg cellulitis found to have elevated troponins- which flattened Seen by ID, Cardiology and Vascular Completed antibiotics Cultures negative Had arterial doppler-- showed chronic slow circulation right leg, left leg is normal cardiac mcclain stable pt stable for dc home will need repeat BMP as he is now on Lasix Condition: Stable - Instructions Referrals: Malinda Islas MD [Primary Care Provider] - Ariadna Huizar MD [Staff Physician] - 1 Week Ze Humphrey MD [Staff Physician] - 2 Weeks Disposition: HOME - Home Medications Comprehensive Discharge Medication List: Ambulatory Orders Glipizide [Glipizide ER] 5 mg PO DAILY 10/15/13 Amlodipine Besylate [Norvasc -] 5 mg PO DAILY 09/17/16 Clopidogrel Bisulfate [Plavix -] 75 mg PO DAILY 10/17/16 Carvedilol [Coreg -] 12.5 mg PO BID #60 tablet 10/24/16
[2017-01-24] MEDS: CARVEDILOL 12.5 MG TABLET (FP) PO SCH (11:20)
[2017-01-24] MEDS: HEPARIN NA (PORCINE) 5,000 UNITS/ML 1ML VIAL SQ SCH (11:20)
[2017-01-24] MEDS: MUPIROCIN 2% TOPICAL OINTMENT 22 GM TUBE TP SCH (11:20)
[2017-01-24] MEDS: CLOPIDOGREL BISULFATE 75 MG TABLET (FP) PO SCH (11:21)
[2017-01-24] MEDS: FUROSEMIDE 40 MG TABLET (FP) PO SCH (11:21)
[2017-01-24] MEDS ORDERED: PT OWN MED DRAWER 7, Y5N ONE (11:24)
[2017-01-24] MEDS: glipiZIDE-XL 5 MG TAB.ER.24 PO SCH (11:28)
[2017-01-24] MEDS: amLODIPine BESYLATE 5 MG TABLET (FP) PO SCH (11:29)
[2017-01-24 14:28] VITALS: BP 108/51; PULSE 75; TEMP 98.7
== END 2017-01-24 18:26 | disposition home or self-care (01) | DRG 602 ==
LOC: JER 06:46 → JERBED 12:26 → J6S 19:34
PROVIDERS: ADMIT Internal Medicine; ATTEND Internal Medicine
DX: L03.116 Cellulitis of left lower limb (principal); I50.33 Acute on chronic diastolic (congestive) heart failure; J98.11 Atelectasis; I69.354 Hemiplegia and hemiparesis following cerebral infarction affecting left non-dominant side; I13.0 Hypertensive heart and chronic kidney disease with heart failure and stage 1 through stage 4 chronic kidney disease, or unspecified chronic kidney disease; E78.00 Pure hypercholesterolemia, unspecified; I25.10 Atherosclerotic heart disease of native coronary artery without angina pectoris; E11.42 Type 2 diabetes mellitus with diabetic polyneuropathy; I73.89 Other specified peripheral vascular diseases; J44.9 Chronic obstructive pulmonary disease, unspecified; F41.8 Other specified anxiety disorders; Z95.1 Presence of aortocoronary bypass graft; D64.9 Anemia, unspecified; E11.622 Type 2 diabetes mellitus with other skin ulcer; I65.21 Occlusion and stenosis of right carotid artery; L98.499 Non-pressure chronic ulcer of skin of other sites with unspecified severity; E11.22 Type 2 diabetes mellitus with diabetic chronic kidney disease; N18.9 Chronic kidney disease, unspecified; R78.89 Finding of other specified substances, not normally found in blood; Z79.4 Long term (current) use of insulin; Z95.5 Presence of coronary angioplasty implant and graft; E66.8 Other obesity; Z68.32 Body mass index [BMI] 32.0-32.9, adult
CPT/HCPCS: 36415; 71010-TC; 80048; 80053; 80307; 81003; 81015; 82553; 83605; 83880; 84484; 85025; 85027; 87040; 87086; 90688; 93005; 93010; 93306-TC; 93923; 93925-TC; 93971; 93971-TC; 97116-GP; 97161-GP; 99283-25; G0008; J1644

== ENCOUNTER 2017-02-08 19:24 | Inpatient (IN) | payer OTHER ==
--- NOTE | 2017-02-08 19:39 | PDOC ---
History of Present Illness - General History Source: Patient <HectorbetiraNolan - Last Filed: 02/08/17 22:08> - General History Source: Patient Exam Limitations: No Limitations - History of Present Illness Initial Comments: 02/08/17 19:55 56 yr old male, with significant past medical history of Afib, CAD s/p stents ( on plavix), CVA with residual left sided weakness, IDDM, HTN, HLD, who presents to the emergency room BIBA for bilateral lower extremity swelling, chest discomfort, and SOB. Even though he is SOB, he states that he is ambulatory with a walker. The patient was recently admitted for left lower extremity cellulitis on 01/19/17 and discharged on 01/24/17 with a prescription for Lasix. Denies fever, chills, nausea, vomiting. Denies sick contact. Denies recent travel. Denies cough. Allergies: NKDA Social Hx: Occasional alcohol consumption. No drug use. PCP: Dr. Malinda Koo <Rocio Rodas - Last Filed: 02/08/17 22:10> - General Chief Complaint: Edema Stated Complaint: EDEMA Time Seen by Provider: 02/08/17 19:36 Past History - Past Medical History Anemia: No Asthma: No Cancer: No Cardiac Disorders: Yes (stent x 2) CVA: Yes (2010, 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) COPD: No CHF: No Dementia: No Diabetes: Yes GI Disorders: No Disorders: No HTN: Yes Hypercholesterolemia: Yes Liver Disease: No Seizures: No Thyroid Disease: No - Surgical History Abdominal Surgery: No Appendectomy: No Cardiac Surgery: Yes (STENTS X2) Cholecystectomy: No Lung Surgery: No Neurologic Surgery: No Orthopedic Surgery: No - Immunization History Immunization Up to Date: Yes - Suicide/Smoking/Psychosocial Hx Smoking Status: Yes Smoking History: Never smoked Have you smoked in the past 12 months: No Number of Cigarettes Smoked Daily: 4 If you are a former smoker, when did you quit?: 3 months ago Cigars Per Day: 0 'Breaking Loose' booklet given: 10/17/16 Hx Alcohol Use: No Drug/Substance Use Hx: No Substance Use Type: None Hx Substance Use Treatment: No <Nolan Pino - Last Filed: 02/08/17 22:08> <Rocio Rodas - Last Filed: 02/08/17 22:10> - Past Medical History Allergies/Adverse Reactions: Allergies Allergy/AdvReac Type Severity Reaction Status Date / Time No Known Drug Allergies Allergy Verified 01/19/17 07:01 Home Medications: Ambulatory Orders Glipizide [Glipizide ER] 5 mg PO DAILY 10/15/13 Amlodipine Besylate [Norvasc -] 5 mg PO DAILY 09/17/16 Clopidogrel Bisulfate [Plavix -] 75 mg PO DAILY 10/17/16 Carvedilol [Coreg -] 12.5 mg PO BID #60 tablet 10/24/16 Furosemide [Lasix -] 40 mg PO DAILY #30 tablet 01/24/17 Review of Systems - Review of Systems Able to Perform ROS?: Yes Comments:: 02/08/17 19:56 CONSTITUTIONAL: Absent: fever, no chills, no fatigue EYES: Absent: visual changes ENT: Absent: ear pain, no sore throat CARDIOVASCULAR: Present: chest discomfort Absent: no palpitations RESPIRATORY: Present: SOB Absent: cough. GI: Absent: abdominal pain, no nausea, no vomiting, no constipation, no diarrhea GENITOURINARY: Absent: dysuria, no frequency, no hematuria MUSCULOSKELETAL: Present: bilateral lower extremity swelling. Absent: back pain, no arthralgia, no myalgia SKIN: Absent: rash <Rocio Rodas - Last Filed: 02/08/17 22:10> *Physical Exam - Physical Exam Comments: 02/08/17 19:56 GENERAL: Well-appearing, well-nourished. No apparent distress. HEENT: Normocephalic, atraumatic. PERRL, EOM intact. CARDIOVASCULAR: Normal S1, S2. Regular rate and rhythm. PULMONARY: Clear to auscultation bilaterally. ABDOMEN: Soft, obese, non-distended, non-tender. EXTREMITIES: 4+ pitting edema to the left lower extremity. 3+ pitting edema to the right lower extremity. There is fluid weaping through both lower extremities that appears yellow and serous. There are venous stasis changes to both extremities bilaterally with the skin appearing tough. Normal ROM in all four extremities. No gross deformities. SKIN: Warm, dry. No rash NEUROLOGICAL: No focal neurological deficits. <Rocio Rodas - Last Filed: 02/08/17 22:10> Heart Score/ECG Review #1 General ECG Interpretation: Sinus Rhythm, Normal Rate 02/08/17 20:35 Sinus rhythm with a rate of 91bpm <Rocio Rodas - Last Filed: 02/08/17 22:10> ED Treatment Course - LABORATORY CBC & Chemistry Diagram: 02/08/17 20:47 02/08/17 20:47 <HectoradeleNolan - Last Filed: 02/08/17 22:08> - LABORATORY CBC & Chemistry Diagram: 02/08/17 20:47 02/08/17 20:47 - RADIOLOGY Radiograph Interpretation: 02/08/17 20:33 EXAM#: TYPE/EXAM: RESULT: [id number] RAD/CHEST X-RAY PORTABLE* Rule out pneumonia Portable chest x-ray, upright position Since prior chest x-ray dated 01/19/2017, the cardiac silhouette remains within normal limits in size. There are mild perihilar increased lung markings. Mild elevation of the right hemidiaphragm again seen with interval better evaluation of the right lung base. Residual minimal atelectatic changes are present. Mediastinum and visualized osseous structures appear intact Impression: Interval better evaluation of the right lung base with residual minimal atelectatic changes Reported By: Lyric Mccoy MD 02/08/17202202/08/17 22:07 EXAM#: TYPE/EXAM: RESULT: [id number] US/DUPLEX VASCUL US-2LEGS Bilateral leg pain. Rule out DVT Bilateral leg Doppler venous ultrasound Grayscale, pulsed Doppler and color Doppler interrogation of both lower extremities deep venous system was performed. The common femoral vein, superficial femoral vein, popliteal and posterior tibial vein were identified, bilaterally with a normal phasic wave form, adequate compressibility and adequate response to augmentation. Visualized portion of the greater saphenous and deep femoral vein are patent No Marinelli's cyst is identified in the popliteal fossa, bilaterally. There is soft tissue swelling in both legs. Impression: There is no evidence of deep venous thromboses in both lower extremities. Soft tissue swelling in the right and left leg. Reported By: Lyric Mccoy MD 02/08/172155 <Rocio Rodas - Last Filed: 02/08/17 22:10> Medical Decision Making - Medical Decision Making 02/08/17 21:[address] Malinda Islas via paging service at 9:40pm. Awaiting call back. 02/08/17 21:56 Second page at 9:55pm. Awaiting call back 02/08/17 22:10 Dr. Islas called back at 10:05pm and spoke with Dr. Pino regarding the patient's care. <Rocio Rodas - Last Filed: 02/08/17 22:10> *DC/Admit/Observation/Transfer - Discharge Dispostion Admit: Yes <Nolan Pino - Last Filed: 02/08/17 22:08> - Attestations Scribe Attestion: 02/08/17 20:00 Documentation prepared by LINDA Morales, acting as medical technologist generalist for Nolan Pino MD. <Rocio Rodas - Last Filed: 02/08/17 22:10> Diagnosis at time of Disposition: Leg swelling - Referrals Referrals: Malinda Islas MD [Primary Care Provider] -
[2017-02-08 20:40] VITALS: BMI 34.3
[2017-02-08 20:46] LABS: URINE APPEARANCE SLCLOUDY; URINE BILIRUBIN NEGATIVE (NEGATIVE); URINE BLOOD 1+ (NEGATIVE); URINE COLOR YELLOW; URINE GLUCOSE (UA) 1+ (NEGATIVE); URINE KETONE TRACE (NEGATIVE); URINE NITRITE NEGATIVE (NEGATIVE); URINE UROBILINOGEN NEGATIVE mg/dL (0.2-1.0)
[2017-02-08 20:55] LABS: BASOPHIL 1.2 % (0-2.0); EOSINOPHIL 3.2 % (0-4.5); MCH 32.5 pg (25.7-33.7); MCHC 34.2 g/dl (32.0-35.9); MEAN CELL VOLUME 95.1 fl (80-96); MEAN PLT VOLUME 8.3 fl (7.5-11.1); NEUTROPHILS 73.5 % (42.8-82.8); PLATELET COUNT 207 K/MM3 (134-434); RDW 14.2 % (11.9-15.9); WHITE BLOOD COUNT 6.7 K/mm3 (4.0-10.0)
[2017-02-08 21:06] LABS: INR 1.23 (0.82-1.09); PROTHROMBIN TIME (PATIENT) 13.9 SEC (9.98-11.88)
[2017-02-08 21:08] LABS: URINE PROTEIN 3+ (NEGATIVE)
[2017-02-08 21:14] LABS: URINE HYALINE CAST 1 /lpf; URINE MUCUS RARE; URINE RBC 5 /hpf (0-3); URINE WBC 2 /hpf (3-5)
[2017-02-08 21:19] LABS: ALBUMIN 2.5 g/dl (3.4-5.0); ANION GAP 6 (8-16); CALCIUM 8.3 mg/dL (8.5-10.1); CO2 27 mmol/L (21-32); CREATININE 1.5 mg/dL (0.7-1.3); GLUCOSE,RANDOM 123 mg/dL (74-106); SGPT/ALT 15 U/L (12-78)
[2017-02-08 21:23] LABS: ALK PHOS 75 U/L (45-117); BILIRUBIN,TOTAL 0.4 mg/dL (0.2-1.0); TOT PROT 5.9 g/dl (6.4-8.2); TROPONIN I 0.04 ng/ml (0.00-0.05)
[2017-02-08 21:24] LABS: MAGNESIUM 2.1 mg/dL (1.8-2.4)
[2017-02-08 21:25] LABS: CPK 259 IU/L (39-308); SGOT/AST 23 U/L (15-37)
[2017-02-08] MEDS ORDERED: FUROSEMIDE 40 MG/4 ML INJECTABLE VIAL IVPUSH ONE (21:41)
[2017-02-08 21:50] LABS: ACETONE SERUM NEGATIVE (NEGATIVE)
[2017-02-08] MEDS ORDERED: FUROSEMIDE 40 MG/4 ML INJECTABLE VIAL ONE (21:55)
[2017-02-08 22:38] LABS: URINE LEUK ESTERASE Negative (NEGATIVE)
[2017-02-09] MEDS ORDERED: FUROSEMIDE 40 MG/4 ML INJECTABLE VIAL IVPUSH SCH (06:00)
--- NOTE | 2017-02-09 06:13 | CON.CARD ---
Cardiology Consult (text) - Consultation Consultation Note: 56 year old man with a history of HTN, HLD, DMII, CAD s/p PCI x 4 2007 [facility] PO[facility] mLAD, OM1 2011 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 Specifically denies SOB, chest pain on my history. No palps, no PND or syncope. PMH: as above. ALL: NKDA MEDS: Reviewed in EMR FH: non-contributory SH: Denies current smoking. EXAM Selected Entries Alert S1,2. RRR. No Murmurs Chest CTA b/l Abd is soft Ext wrapped in dressings, 2+ edema b/l 02/08/17 02/09/17 02/09/17 23:23 00:30 06:32 Temperature 98.3 F Pulse Rate 83 Blood Pressure 159/82 O2 Sat by Pulse 98 96 Oximetry (%) Oxygen Delivery Room Air Room Air Method DATA: ECG: NSR, LAFB, RBBB CXR: No infiltrate/effusion LE Duplex - DVT Laboratory Tests 02/08/17 02/08/17 02/09/17 20:47 20:47 06:25 WBC 6.7 Hgb 9.2 L Plt Count 207 Sodium 144 Creatinine 1.4 H Troponin I 0.04 B-Natriuretic Peptide 3454.90 H IMP: CAD PAD H/o CVA Carotid artery Disease Chronic Diastolic CHF B/L LE pain: ?Claudication REC: 1. Leg Pain: Will obtain Vascular Evaluation. 2. Edema: -Likely mild exacerbation of chronic diastolic CHF. -IV Lasix -Daily electrolytes and creatinine to monitor renal fxn -Will plan for repeat ischemic evaluation when euvolemic, may also be done as outpatient
[2017-02-09] MEDS: glipiZIDE-XL 5 MG TAB.ER.24 PO SCH (06:46)
[2017-02-09] MEDS: INSULIN SLIDING SCALE (NOVOLOG) 1 VIAL SQ SCH ×3 (06:53→18:04)
[2017-02-09 08:04] LABS: ANION GAP 7 (8-16); CALCIUM 8.4 mg/dL (8.5-10.1); CO2 30 mmol/L (21-32); GLUCOSE,RANDOM 122 mg/dL (74-106)
[2017-02-09 08:06] LABS: CREATININE 1.4 mg/dL (0.7-1.3)
[2017-02-09] MEDS: CLOPIDOGREL BISULFATE 75 MG TABLET (FP) PO SCH (10:06)
[2017-02-09] MEDS: amLODIPine BESYLATE 5 MG TABLET (FP) PO SCH (10:06)
[2017-02-09] MEDS: CARVEDILOL 12.5 MG TABLET (FP) PO SCH ×2 (10:06→22:53)
--- NOTE | 2017-02-09 10:12 | HP ---
Admitting History and Physical - Primary Care Physician PCP: Ariadna Huizar - Admission Chief Complaint: leg pain History of Present Illness: ER HISTORY - History of Present Illness Initial Comments: 02/08/17 19:55 56 yr old male, with significant past medical history of Afib, CAD s/p stents ( on plavix), CVA with residual left sided weakness, IDDM, HTN, HLD, who presents to the emergency room BIBA for bilateral lower extremity swelling, chest discomfort, and SOB. Even though he is SOB, he states that he is ambulatory with a walker. The patient was recently admitted for left lower extremity cellulitis on 01/19/17 and discharged on 01/24/17 with a prescription for Lasix. Denies fever, chills, nausea, vomiting. Denies sick contact. Denies recent travel. Denies cough. Pt examined by me in the floors C/o pain in both legs- was recently admitted here for cellulitis-- but antibiotics discontinued as he had chronic venous stasis, not cellulitis. He was sen by Vascular surgeon at that time-- no interventions planned. 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, Peripheral Neuropathy, Other (arterial insufficiency s/p left fem -tibial bypass- 2013) Cardiovascular: Yes: CAD, CHF, HTN, Hyperlipdemia, Other (PAD) Pulmonary: Yes: COPD Heme/Onc: Yes: Anemia Psych: Yes: Anxiety Endocrine: Yes: Diabetes Mellitus - Past Surgical History Past Surgical History: Yes: Bypass, Stent - Smoking History Smoking history: Current every day smoker Have you smoked in the past 12 months: Yes Aproximately how many cigarettes per day: 5 If you are a former smoker, when did you quit?: 3 months ago - Alcohol/Substance Use Hx Alcohol Use: No - Social History ADL: Independent History of Recent Travel: No Home Medications - Allergies Allergies/Adverse Reactions: Allergies Allergy/AdvReac Type Severity Reaction Status Date / Time No Known Drug Allergies Allergy Verified 01/19/17 07:01 - Home Medications Home Medications: Ambulatory Orders Glipizide [Glipizide ER] 5 mg PO DAILY 10/15/13 Amlodipine Besylate [Norvasc -] 5 mg PO DAILY 09/17/16 Clopidogrel Bisulfate [Plavix -] 75 mg PO DAILY 10/17/16 Carvedilol [Coreg -] 12.5 mg PO BID #60 tablet 10/24/16 Furosemide [Lasix -] 40 mg PO DAILY #30 tablet 01/24/17 Review of Systems - Review of Systems Constitutional: denies: Chills, Fever Musculoskeletal: reports: Extremity Pain Physical Examination Vital Signs: Vital Signs Temperature 98.3 F 02/09/17 06:32 Pulse Rate 83 02/09/17 06:32 Respiratory Rate 20 02/09/17 06:32 Blood Pressure 159/82 02/09/17 06:32 O2 Sat by Pulse Oximetry (%) 96 02/09/17 00:30 Constitutional: Yes: No Distress, Calm Cardiovascular: Yes: Regular Rate and Rhythm Respiratory: Yes: CTA Bilaterally Gastrointestinal: Yes: Normal Bowel Sounds, Soft, Abdomen, Obese. No: Distention, Tenderness Edema: Yes Edema: LLE: 2+, RLE: 2+ Psychiatric: Yes: Alert, Oriented Labs: CBC, BMP 02/09/17 06:25 Imaging - Results Chest X-ray: Image Reviewed (no congestion) Ultrasound: Report Reviewed (no DVT) EKG: Image Reviewed (NSR, LAFB) Problem List - Problems (1) ASHD (arteriosclerotic heart disease) Code(s): I25.10 - ATHSCL HEART DISEASE OF [id number] CORONARY ARTERY W/O ANG PCTRS (2) CKD (chronic kidney disease) Code(s): N18.9 - CHRONIC KIDNEY DISEASE, UNSPECIFIED Qualifiers: Chronic kidney disease stage: unspecified stage Qualified Code(s): N18.9 - Chronic kidney disease, unspecified; N18.9 - Chronic kidney disease, unspecified (3) Diastolic CHF Code(s): I50.30 - UNSPECIFIED DIASTOLIC (CONGESTIVE) HEART FAILURE (4) PAD (peripheral artery disease) Code(s): I73.9 - PERIPHERAL VASCULAR DISEASE, UNSPECIFIED (5) Arterial insufficiency of lower extremity Code(s): I73.9 - PERIPHERAL VASCULAR DISEASE, UNSPECIFIED Assessment/Plan PLAN Cardiology eval noted Lasix BID, check renal function test check daily weights OOB daily Vascular surgeon evaluation had arterial doppler in last admission DVT prophylaxis-- Heparin sc
--- NOTE | 2017-02-09 11:55 | EKG ---
Test Reason : Blood Pressure : / mmHG Vent. Rate : 091 BPM Atrial Rate : 091 BPM P-R Int : 174 ms QRS Dur : 134 ms QT Int : 408 ms P-R-T Axes : 064 -63 066 degrees QTc Int : 501 ms POOR DATA QUALITY, INTERPRETATION MAY BE ADVERSELY AFFECTED NORMAL SINUS RHYTHM POSSIBLE LEFT ATRIAL ENLARGEMENT RIGHT BUNDLE BRANCH BLOCK LEFT ANTERIOR FASCICULAR BLOCK BIFASCICULAR BLOCK ABNORMAL ECG WHEN COMPARED WITH ECG OF 19-JAN-2017 07:51, T WAVE INVERSION NO LONGER EVIDENT IN LATERAL LEADS Confirmed by SIRISHA SMITH MD ([id number]) on 02/09/2017 11:54:40 AM Referred By: Confirmed By:SIRISHA SMITH MD
[2017-02-09] MEDS: TOLNAFTATE 1% POWDER 45 GM POW TP SCH ×2 (12:24→22:54)
[2017-02-09] MEDS: NYSTATIN POWDER 100,000 UNITS/GM - 15 GM TOPICAL POWDER TP SCH (12:24)
[2017-02-09] MEDS ORDERED: SODIUM CHLORIDE 0.45% 1,000 ML IV SCH (14:00)
--- NOTE | 2017-02-09 15:27 | CONSULT ---
Consultation: CONSULT REQUEST: RENAL CONSULT HISTORY OF PRESENT ILLNESS: Patient is a 56 year old male presented to the ED via EMS with the chief complaint of lower extremity weakness. As per the patient, he has been feeling weak, unable to bear weight and very painful while attempting to walk, hence came in to the ED for further evaluation. Also mentions has noticed increased frequency of urination for the past couple of days, with hesitancy and urinary incontinence but no burning sensation. Denies chest pain, sob, cough, palpitation, abdominal pain, nausea or vomiting. Last bowel movement x 2days ago. Sleep/Appetite normal. Patient was recently admitted on 01/19/17 for left leg cellulitis and discharged on 01/24/17 after completing the antibiotics. At that visit he had an artieral doppler which showed chronic slow circulation of right leg and left leg was normal. Past medical history:Atrial fib, CAD s/p stents (on plavix), CVA with residual left sided weakness, IDDM, HTN, HLD, COPD, Anemia, peripheral neuropathy, arterial insuffiencey s/p left femoral-tibial by pass in 2013) Allergies: NKDA Past Surgical Hx: As mentioned above Social: Lives at home Smoking: current smoker-1-1/2 pack/day since 43 years. Alcohol: Socially Drugs: Denies REVIEW OF SYSTEMS: CONSTITUTIONAL: Absent: fever, chills, diaphoresis, generalized weakness, malaise, loss of appetite, weight change HEENT: Absent: rhinorrhea, nasal congestion, throat pain, throat swelling, difficulty swallowing, mouth swelling, ear pain, eye pain, visual changes CARDIOVASCULAR: Absent: chest pain, syncope, palpitations, irregular heart rate, lightheadedness , peripheral edema RESPIRATORY: Absent: cough, shortness of breath, dyspnea with exertion, orthopnea, wheezing, stridor, hemoptysis GASTROINTESTINAL: Absent: abdominal pain, abdominal distension, nausea, vomiting, diarrhea, constipation, melena, hematochezia GENITOURINARY: Present: Increased frequency, hesitancy Absent: dysuria, urgency, hematuria, flank pain, genital pain MUSCULOSKELETAL: Absent: myalgia, arthralgia, joint swelling, back pain, neck pain SKIN: Absent: rash, itching, pallor HEMATOLOGIC/IMMUNOLOGIC: Absent: easy bleeding, easy bruising, lymphadenopathy, frequent infections ENDOCRINE: Absent: unexplained weight gain, unexplained weight loss, heat intolerance, cold intolerance NEUROLOGIC: Absent: headache, focal weakness or paresthesias, dizziness, unsteady gait, seizure, mental status changes, bladder or bowel incontinence PSYCHIATRIC: Absent: anxiety, depression, suicidal or homicidal ideation, hallucinations. EXTREMITIES: Lower extremity weakness, pain PHYSICAL EXAMINATION Vital Signs - 24 hr 02/08/17 02/09/17 02/09/17 23:23 00:30 06:32 Temperature 98.1 F 98.1 F 98.3 F Pulse Rate 88 83 Pulse Rate [ 82 Apical] Respiratory 18 20 20 Rate Blood Pressure 137/61 159/82 Blood Pressure 132/68 [Right Arm] O2 Sat by Pulse 98 96 Oximetry (%) GENERAL: Pleasant male, lying comfortably in bed, Awake, alert, and fully oriented, in no acute distress. HEAD: Normal with no signs of trauma. EYES: EOM intact, no pallor or icterus. EARS, NOSE, THROAT: Ears normal. Moist mucous membranes. NECK: Supple. LUNGS: B/L Breath sounds equal, clear to auscultation bilaterally. No wheezes, and no crackles. HEART: Regular rate and rhythm, normal S1 and S2 with soft systolic murmur. ABDOMEN: Soft, nontender, not distended, normoactive bowel sounds, no guarding, no rebound, no masses. No hepatomegaly or splenomegaly. MUSCULOSKELETAL: Normal range of motion at all joints. No bony deformities or tenderness. No CVA tenderness. UPPER EXTREMITIES: 2+ pulses, warm, well-perfused. No cyanosis. No clubbing. Cap refill <2 seconds. No peripheral edema. RIGHT LOWER EXTREMITIES: 2+ pulses, warm, well-perfused. No calf tenderness. No peripheral edema. LEFT LOWER EXTREMITIES: Dressing applied in the left calf area, slightly tender to palpation. NEUROLOGICAL: No facial droop, power 5/5 in the right upper and lower ext, power 4/5 in the left upper and lower ext. Gait not observed. PSYCHIATRIC: Cooperative. Good eye contact. Appropriate mood and affect. SKIN: Warm, dry, normal turgor, no rashes or lesions noted. Laboratory Results - last 24 hr 02/08/17 02/09/17 02/09/17 23:12 06:25 06:51 Sodium 144 Potassium 4.2 Chloride 107 Carbon Dioxide 30 Anion Gap 7 L BUN 29 H Creatinine 1.4 H POC Glucometer 165.96094 135 Random Glucose 122 H Calcium 8.4 L 02/09/17 12:26 Sodium Potassium Chloride Carbon Dioxide Anion Gap BUN Creatinine POC Glucometer 123 Random Glucose Calcium Active Medications Generic Name Dose Route Start Last Admin Trade Name Michael PRN Reason Stop Dose Admin Amlodipine Besylate 5 mg 02/09/17 10:00 02/09/17 10:06 Norvasc - PO 5 mg DAILY TONYA Administration Carvedilol 12.5 mg 02/09/17 10:00 02/09/17 10:06 Coreg - PO 12.5 mg BID TONYA Administration Clopidogrel Bisulfate 75 mg 02/09/17 10:00 02/09/17 10:06 Plavix - PO 75 mg DAILY TONYA Administration Glipizide 5 mg 02/09/17 07:00 02/09/17 06:46 Glucotrol Xl - PO 5 mg AM TONYA Administration Heparin Sodium (Porcine) 5,000 unit 02/09/17 22:00 Heparin - SQ BID TONYA Sodium Chloride 1,000 mls @ 50 mls/hr 02/09/17 14:00 1/2 Normal Saline IV ASDIR [facility] Insulin Aspart 1 vial 02/09/17 07:00 02/09/17 12:27 Novolog Vial Sliding Scale - SQ Not Given TIDAC [facility] Protocol Nystatin 1 applic 02/09/17 10:45 02/09/17 12:24 Nystop Powder - TP 1 applic DAILY TONYA Administration Tolnaftate 1 applic 02/09/17 10:45 02/09/17 12:24 Tinactin 1% Powder - TP 1 applic BID TONYA Administration Patient is a 56 year old male with significant past medical history of Atrial fib, CAD s/p stents (on plavix), CVA with residual left sided weakness, IDDM, HTN, HLD, COPD, Anemia, peripheral neuropathy, arterial insuffiency s/p left femoral-tibial by pass in 2013) presented to the ED via EMS with the chief complaint of lower extremity weakness. As per the patient, he has been feeling weak, unable to bear weight and very painful while attempting to walk, hence came in to the ED for further evaluation. ASSESSMENT/PLAN: 1. Acute on chronic kidney injury 2. Hypertension 3. Hyperlipidemia 4. Diabetes Mellitus-Dx 10 years ago, hasn't had an eye exam. 5. COPD-not in exacerbation 6. Normocytic anemia 7. CAD 8. CVA with residual left sided weakness 9. Peripheral neuropathy 10. CHF-could be in exacerbation Acute on chronic kidney injury On arrival, creatinine was 1.5---> decreased to 1.4 (baseline creatinine 1.2 -1.3 (01/20/17) Will order Urine electrolytes, kidney ultrasound Stop IV fluids, Lasix if needed Avoid nephrotoxic drugs Repeat BMP in am Proteinuria with microscopic hematuria UA-Protein +++ with 1+ blood SPEP ordered now, R/O causes causing proteinuria like MM Urinary symptoms could be due to BPH Complained of Increased frequency, urgency, incontinence of urine Unlikely UTI- no evidence of UTI in UA, negative nitrite, no fever, no dysuria Will confirm the size of prostate through ultrasound Would consider adding Flomax. Rest as per primary. Case discussed with Dr. Garcia. Dispo: We will continue to follow the patient. Thank you for this consultative opportunity. Visit type - Emergency Visit Emergency Visit: Yes ED Registration Date: 02/08/17 Care time: The patient presented to the Emergency Department on the above date and was hospitalized for further evaluation of their emergent condition. - New Patient This patient is new to me today: Yes Date on this admission: 02/09/17 - Critical Care Critical Care patient: No
--- NOTE | 2017-02-09 16:36 | PN ---
Teaching Attending Note Name of Resident: Dara Tobias (Nephrology) ATTENDING PHYSICIAN STATEMENT I saw and evaluated the patient. I reviewed the resident's note and discussed the case with the resident. I agree with the resident's findings and plan as documented. SUBJECTIVE: This is a 56 year old gentleman with PMhx of Atrial fib, CAD s/p stents (on plavix), CVA with residual left sided weakness, IDDM, HTN, HLD, COPD, Anemia who presented from home with compliant of frequent urination and sob and admitted with acute on CHF and BUN/Cr of 31/1.5 (baseline Cr 1.3) PMhx as above Alelrgies: NDKA Family Hx: No kidney disease ROS: as per Resident note OBJECTIVE: Vital Signs Temperature 98.4 F 02/09/17 15:36 Pulse Rate 80 02/09/17 15:36 Respiratory Rate 18 02/09/17 15:36 Blood Pressure 124/63 02/09/17 15:36 O2 Sat by Pulse Oximetry (%) 96 02/09/17 00:30 Intake & Output 02/06/17 02/07/17 02/08/17 02/09/17 23:59 23:59 23:59 23:59 Intake Total 0 1500 Output Total 600 1550 Balance -600 -50 Weight 200 lb 188 lb 12.8 oz NAD, awake and alert irregular HR, no M/R CTA, decreaed BS at lung bases no rales Obese, NT/ND 1+ edema in LE, dressing on right leg no bladder distension CBC, BMP 02/08/17 20:47 02/09/17 06:25 Current Medications Amlodipine Besylate (Norvasc -) 5 mg PO DAILY [facility] Last Admin: 02/09/17 10:06 Dose: 5 mg Carvedilol (Coreg -) 12.5 mg PO BID [facility] Last Admin: 02/09/17 10:06 Dose: 12.5 mg Clopidogrel Bisulfate (Plavix -) 75 mg PO DAILY [facility] Last Admin: 02/09/17 10:06 Dose: 75 mg Glipizide (Glucotrol Xl -) 5 mg PO AM [facility] Last Admin: 02/09/17 06:46 Dose: 5 mg Heparin Sodium (Porcine) (Heparin -) 5,000 unit SQ BID [facility] Insulin Aspart (Novolog Vial Sliding Scale -) 1 vial SQ TIDAC [facility] PRN Reason: Protocol Last Admin: 02/09/17 12:27 Dose: Not Given Nystatin (Nystop Powder -) 1 applic TP DAILY [facility] Last Admin: 02/09/17 12:24 Dose: 1 applic Tolnaftate (Tinactin 1% Powder -) 1 applic TP BID [facility] Last Admin: 02/09/17 12:24 Dose: 1 applic ASSESSMENT AND PLAN: 56 year old gentleman with PMhx of Atrial fib, CAD s/p stents (on plavix), CVA with residual left sided weakness, IDDM, HTN, HLD, COPD, Anemia who presented from home with compliant of frequent urination and sob and admitted with acute on CHF and BUN/Cr of 31/1.5 (baseline Cr 1.3) #Mild worsening of renal function/Azotemia in setting of CHF/Fluid overload Change in renal function likely related to hemodynamic changes in setting of HF (pt was not taking diuretics at home) Check Urine studies for FeUrea, UCPR check Renal and bladder US to access kidney size and structure and access prostate size Check SPEP given anemia and proteinuria continue IV lasix to maintain evolemia can monitor off IVF #Frequent Urination Check Prostate size on US may need to start flomax #CHF Continue IV lasix as per Cardiology Trend weights and labs Thank you Prakash Garcia DO
--- NOTE | 2017-02-09 19:42 | CONSULT ---
Consult - History of Present Illness History of Present Illness: 56 year old male DM with history of left leg bypass with PAD in right leg who complains of pain and swelling in both legs. He has recently had Doppler showing good flow in left leg and moderate PAD on right. 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, Peripheral Neuropathy, Other (arterial insufficiency s/p left fem -tibial bypass- 2014) Cardio/Vascular: Yes: CAD, CHF, HTN, Hyperlipdemia, Other (PAD) Pulmonary: Yes: COPD Renal/: Yes: Renal Inusuff Psych: Yes: Anxiety Endocrine: Yes: Diabetes Mellitus - Past Surgical History Past Surgical History: Yes: Bypass, Stent - Alcohol/Substance Use Hx Alcohol Use: No - Smoking History Smoking history: Current every day smoker Have you smoked in the past 12 months: Yes Aproximately how many cigarettes per day: 5 If you are a former smoker, when did you quit?: 3 months ago - Social History ADL: Independent History of Recent Travel: No Home Medications - Allergies Allergies/Adverse Reactions: Allergies Allergy/AdvReac Type Severity Reaction Status Date / Time No Known Drug Allergies Allergy Verified 01/19/17 07:01 - Home Medications Home Medications: Ambulatory Orders Glipizide [Glipizide ER] 5 mg PO DAILY 10/15/13 Amlodipine Besylate [Norvasc -] 5 mg PO DAILY 09/17/16 Clopidogrel Bisulfate [Plavix -] 75 mg PO DAILY 10/17/16 Carvedilol [Coreg -] 12.5 mg PO BID #60 tablet 10/24/16 Furosemide [Lasix -] 40 mg PO DAILY #30 tablet 01/24/17 Physical Exam Vital Signs: Vital Signs Temperature 98.2 F 02/09/17 17:16 Pulse Rate 76 02/09/17 17:16 Respiratory Rate 20 02/09/17 17:16 Blood Pressure 110/49 02/09/17 17:16 O2 Sat by Pulse Oximetry (%) 94 L 02/09/17 09:00 Edema: Yes Edema: LLE: 3+, RLE: 1+ Peripheral Pulses WNL: No Integumentary: Yes: Venous Stasis Changes (Left ankle) Labs: CBC, BMP 02/09/17 06:25 Problem List - Problems (1) PAD (peripheral artery disease) Assessment/Plan: Pain may be related to PAD in right but with functioning bypass should not be a factor in the left leg. CTA requested once renal status evaluated. Left leg venous stasis. Code(s): I73.9 - PERIPHERAL VASCULAR DISEASE, UNSPECIFIED
[2017-02-09] MEDS: HEPARIN NA (PORCINE) 5,000 UNITS/ML 1ML VIAL SQ SCH (22:53)
[2017-02-10] MEDS: INSULIN SLIDING SCALE (NOVOLOG) 1 VIAL SQ SCH ×3 (06:23→17:51)
[2017-02-10] MEDS: glipiZIDE-XL 5 MG TAB.ER.24 PO SCH (06:55)
--- NOTE | 2017-02-10 08:41 | PN ---
Progress Note, Physician Chief Complaint: no distress No SOB - Current Medication List Current Medications: Active Medications Amlodipine Besylate (Norvasc -) 5 mg PO DAILY [facility] Last Admin: 02/09/17 10:06 Dose: 5 mg Carvedilol (Coreg -) 12.5 mg PO BID [facility] Last Admin: 02/09/17 22:53 Dose: 12.5 mg Clopidogrel Bisulfate (Plavix -) 75 mg PO DAILY [facility] Last Admin: 02/09/17 10:06 Dose: 75 mg Glipizide (Glucotrol Xl -) 5 mg PO AM [facility] Last Admin: 02/10/17 06:55 Dose: 5 mg Heparin Sodium (Porcine) (Heparin -) 5,000 unit SQ BID [facility] Last Admin: 02/09/17 22:53 Dose: 5,000 unit Insulin Aspart (Novolog Vial Sliding Scale -) 1 vial SQ TIDAC [facility] PRN Reason: Protocol Last Admin: 02/10/17 06:23 Dose: Not Given Nystatin (Nystop Powder -) 1 applic TP DAILY [facility] Last Admin: 02/09/17 12:24 Dose: 1 applic Tolnaftate (Tinactin 1% Powder -) 1 applic TP BID [facility] Last Admin: 02/09/17 22:54 Dose: 1 applic - Objective Vital Signs: Vital Signs Temperature 98.3 F 02/10/17 06:00 Pulse Rate 74 02/10/17 06:00 Respiratory Rate 20 02/10/17 06:00 Blood Pressure 141/68 02/10/17 06:00 O2 Sat by Pulse Oximetry (%) 98 02/09/17 21:00 Constitutional: Yes: No Distress Cardiovascular: Yes: Regular Rate and Rhythm Respiratory: Yes: Other (slight decreased basilar breath sounds, nut no wheezing ) Gastrointestinal: Yes: Soft Edema: Yes Edema: LLE: 1+, RLE: 1+ Neurological: Yes: Alert, Oriented Labs: INR, PTT INR 1.23 (0.82-1.09) H 02/08/17 20:47 Assessment/Plan IMP: CAD PAD H/o CVA Carotid artery Disease Chronic Diastolic CHF B/L LE pain: ?Claudication REC: 1. Leg Pain: D/W Dr. Humphrey and Dr. Islas. Held Lasix and gently hydrated yesterday, await labs today. If creatinine allows, CTA LE recommended. 2. Edema: Chronic and multifactorial likely due to chronic diastolic CHF, venous insufficiency. -Lasix temporarily due to CKD and plan for LE CTA Appears generally euvolemic without pulmonary edema at this time. Will need to follow closely after CTA for volume status and likely resume Lasix.
[2017-02-10 08:47] LABS: ANION GAP 8 (8-16); CALCIUM 7.8 mg/dL (8.5-10.1); CO2 28 mmol/L (21-32); GLUCOSE,RANDOM 84 mg/dL (74-106); MAGNESIUM 1.8 mg/dL (1.8-2.4)
[2017-02-10 08:50] LABS: CREATININE 1.5 mg/dL (0.7-1.3)
[2017-02-10] MEDS ORDERED: PT OWN MED DRAWER 7, Y5N ONE (09:58)
[2017-02-10] MEDS: NYSTATIN POWDER 100,000 UNITS/GM - 15 GM TOPICAL POWDER TP SCH (10:07)
[2017-02-10] MEDS: CARVEDILOL 12.5 MG TABLET (FP) PO SCH ×2 (10:08→21:48)
[2017-02-10] MEDS: HEPARIN NA (PORCINE) 5,000 UNITS/ML 1ML VIAL SQ SCH ×2 (10:08→21:48)
[2017-02-10] MEDS: CLOPIDOGREL BISULFATE 75 MG TABLET (FP) PO SCH (10:08)
[2017-02-10] MEDS: amLODIPine BESYLATE 5 MG TABLET (FP) PO SCH (10:08)
[2017-02-10] MEDS: TOLNAFTATE 1% POWDER 45 GM POW TP SCH ×2 (10:08→21:49)
--- NOTE | 2017-02-10 12:39 | PN ---
Progress Note (short form) - Note Progress Note: Renal follow up for VANDA/CKD Pt seen and examined at the bedside awake and alert no acute complaints Vital Signs Temperature 98.2 F 02/10/17 10:06 Pulse Rate 76 02/10/17 10:06 Respiratory Rate 18 02/10/17 10:06 Blood Pressure 145/72 02/10/17 10:06 O2 Sat by Pulse Oximetry (%) 98 02/09/17 21:00 Intake & Output 02/07/17 02/08/17 02/09/17 02/10/17 23:59 23:59 23:59 23:59 Intake Total 0 2100 800 Output Total 600 1975 800 Balance -600 125 0 Weight 200 lb 188 lb 12.8 oz NAD RRR, No M/R CTA, no rales soft NT 1+ edema in LE CBC, BMP 02/08/17 20:47 02/10/17 06:30 Current Medications Amlodipine Besylate (Norvasc -) 5 mg PO DAILY [facility] Last Admin: 02/10/17 10:08 Dose: 5 mg Carvedilol (Coreg -) 12.5 mg PO BID [facility] Last Admin: 02/10/17 10:08 Dose: 12.5 mg Clopidogrel Bisulfate (Plavix -) 75 mg PO DAILY [facility] Last Admin: 02/10/17 10:08 Dose: 75 mg Glipizide (Glucotrol Xl -) 5 mg PO AM [facility] Last Admin: 02/10/17 06:55 Dose: 5 mg Heparin Sodium (Porcine) (Heparin -) 5,000 unit SQ BID [facility] Last Admin: 02/10/17 10:08 Dose: 5,000 unit Insulin Aspart (Novolog Vial Sliding Scale -) 1 vial SQ TIDAC [facility] PRN Reason: Protocol Last Admin: 02/10/17 12:10 Dose: Not Given Nystatin (Nystop Powder -) 1 applic TP DAILY [facility] Last Admin: 02/10/17 10:07 Dose: 1 applic Tolnaftate (Tinactin 1% Powder -) 1 applic TP BID [facility] Last Admin: 02/10/17 10:08 Dose: 1 applic 56 year old gentleman with PMhx of Atrial fib, CAD s/p stents (on plavix), CVA with residual left sided weakness, IDDM, HTN, HLD, COPD, Anemia who presented from home with compliant of frequent urination and sob and admitted with acute on CHF and BUN/Cr of 31/1.5 (baseline Cr 1.3) #Mild worsening of renal function/Azotemia in setting of CHF/Fluid overload Change in renal function likely related to hemodynamic changes in setting of HF (pt was not taking diuretics at home) Check Urine studies for FeUrea, UCPR check Renal and bladder US to access kidney size and structure and access prostate size Check SPEP given anemia and proteinuria continue IV lasix to maintain evolemia can monitor off IVF renal function stable the last 24 hours UPCR is pending Renal Us noted, normal appearing kidneys with simple renal cyst no BPH noted on US but with inabiltiy to void start trial of flomax #Contrast nephropathy risk assessment/Prophylaxis Risk of RENATO is 26% (rise in Cr by 25%) and risk of immediate dialysis is 1.1% with 100cc of contrast these risks were explained to the patient can monitor Cr to see fi there is a improvement would be cautions with holding diuretics for too long given HF can given Mucomyst 1200mg PO BID #CHF Cardiology following Thank you
--- NOTE | 2017-02-10 12:57 | PN ---
Progress Note (short form) - Note Progress Note: Pt seen/ examined chart reviewed c/c - pain in legs denies cp/sob/abd pain Vital Signs Temp 98.2 F 02/10/17 10:06 Pulse 76 02/10/17 10:06 Resp 18 02/10/17 10:06 BP 145/72 02/10/17 10:06 Pulse Ox 98 02/09/17 21:00 Intake & Output 02/09/17 02/10/17 02/10/17 23:59 11:59 23:59 Intake Total 1400 800 Output Total 1125 800 Balance 275 0 Intake: Oral 1000 400 Oral Supplement 400 400 Output: Urine 1125 800 Void 1125 800 Other: Voiding Method Urinal Urinal Bowel Movement No No # Bowel Movements 0 0 Active Medications Acetylcysteine (Mucomyst 20 Oral / Inh Use Only*) 1,200 mg PO BID [facility] Stop: 02/11/17 22:01 Amlodipine Besylate (Norvasc -) 5 mg PO DAILY [facility] Last Admin: 02/10/17 10:08 Dose: 5 mg Carvedilol (Coreg -) 12.5 mg PO BID [facility] Last Admin: 02/10/17 10:08 Dose: 12.5 mg Clopidogrel Bisulfate (Plavix -) 75 mg PO DAILY [facility] Last Admin: 02/10/17 10:08 Dose: 75 mg Glipizide (Glucotrol Xl -) 5 mg PO AM [facility] Last Admin: 02/10/17 06:55 Dose: 5 mg Heparin Sodium (Porcine) (Heparin -) 5,000 unit SQ BID [facility] Last Admin: 02/10/17 10:08 Dose: 5,000 unit Insulin Aspart (Novolog Vial Sliding Scale -) 1 vial SQ TIDAC [facility] PRN Reason: Protocol Last Admin: 02/10/17 12:10 Dose: Not Given Nystatin (Nystop Powder -) 1 applic TP DAILY [facility] Last Admin: 02/10/17 10:07 Dose: 1 applic Tamsulosin HCl (Flomax -) 0.8 mg PO DAILY@0830 [facility] Tolnaftate (Tinactin 1% Powder -) 1 applic TP BID [facility] Last Admin: 02/10/17 10:08 Dose: 1 applic CBC, BMP 02/08/17 20:47 02/10/17 06:30 Microbiology 02/08/17 20:20 Urine Culture - Final Urine - Urine Clean Catch 02/08/17 20:20 Blood Culture - Preliminary Blood - Peripheral Venous NO GROWTH OBTAINED AFTER 24 HOURS, INCUBATION TO CONTINUE FOR 4 DAYS. 02/08/17 20:20 Blood Culture - Preliminary Blood - Peripheral Venous NO GROWTH OBTAINED AFTER 24 HOURS, INCUBATION TO CONTINUE FOR 4 DAYS. Physical Examination Constitutional: Yes: No Distress, Calm Cardiovascular: Yes: Regular Rate and Rhythm Respiratory: Yes: CTA Bilaterally Gastrointestinal: Yes: Normal Bowel Sounds, Soft, Abdomen, Obese. No: Distention, Tenderness Edema: Yes Edema: LLE: 2+, RLE: 2+ Psychiatric: Yes: Alert, Oriented Imaging - Results Chest X-ray: Image Reviewed (no congestion) Ultrasound: Report Reviewed (no DVT) EKG: Image Reviewed (NSR, LAFB) Problem List - Problems (1) ASHD (arteriosclerotic heart disease) Code(s): I25.10 - ATHSCL HEART DISEASE OF [place] CORONARY ARTERY W/O ANG PCTRS (2) CKD (chronic kidney disease) Code(s): N18.9 - CHRONIC KIDNEY DISEASE, UNSPECIFIED Qualifiers: Chronic kidney disease stage: unspecified stage Qualified Code(s): N18.9 - Chronic kidney disease, unspecified; N18.9 - Chronic kidney disease, unspecified (3) Diastolic CHF Code(s): I50.30 - UNSPECIFIED DIASTOLIC (CONGESTIVE) HEART FAILURE (4) PAD (peripheral artery disease) Code(s): I73.9 - PERIPHERAL VASCULAR DISEASE, UNSPECIFIED (5) Arterial insufficiency of lower extremity Code(s): I73.9 - PERIPHERAL VASCULAR DISEASE, UNSPECIFIED Assessment/Plan continue present care cta - planned discussed with Dr. Jose sultana to be held will follow
--- NOTE | 2017-02-10 13:10 | PN ---
Physical Exam: SUBJECTIVE: Patient seen and examined at bed side this morning. Complaints of pain over his left lower extremity. Denies chest pain, sob, cough, palpitation, abdominal pain, nausea or vomiting. Hasn't moved bowel since 3days. No acute overnight events. OBJECTIVE: Vital Signs Period Temp Pulse Resp BP Sys/Fuentes Pulse Ox Last 24 Hr 97.7 F-98.4 F 74-80 18-20 105-145/49-72 98 GENERAL: Pleasant male, lying comfortably in bed, Awake, alert, and fully oriented, in no acute distress. HEAD: Normal with no signs of trauma. EYES: EOM intact, no pallor or icterus. EARS, NOSE, THROAT: Ears normal. Moist mucous membranes. NECK: Supple. LUNGS: B/L Breath sounds equal, clear to auscultation bilaterally. No wheezes, and no crackles. HEART: Regular rate and rhythm, normal S1 and S2 with soft systolic murmur. ABDOMEN: Soft, nontender, not distended, normoactive bowel sounds, no guarding, no rebound, no masses. No hepatomegaly or splenomegaly. MUSCULOSKELETAL: Normal range of motion at all joints. No bony deformities or tenderness. No CVA tenderness. UPPER EXTREMITIES: 2+ pulses, warm, well-perfused. No cyanosis. No clubbing. Cap refill <2 seconds. No peripheral edema. RIGHT LOWER EXTREMITIES: 2+ pulses, warm, well-perfused. No calf tenderness. No peripheral edema. LEFT LOWER EXTREMITIES: Dressing applied in the left calf area, slightly tender to palpation. NEUROLOGICAL: No facial droop, power 5/5 in the right upper and lower ext, power 4/5 in the left upper and lower ext. Gait not observed. PSYCHIATRIC: Cooperative. Good eye contact. Appropriate mood and affect. SKIN: Warm, dry, normal turgor, no rashes or lesions noted. Laboratory Results - last 24 hr 02/09/17 02/09/17 02/09/17 17:50 17:53 19:43 Sodium Potassium Chloride Carbon Dioxide Anion Gap BUN Creatinine POC Glucometer 119 136 Random Glucose Calcium Magnesium Ur Random Sodium 68 Ur Random Potassium 36.6 Ur Random Chloride 70 02/10/17 02/10/17 02/10/17 05:56 06:30 12:08 Sodium 139 Potassium 4.4 Chloride 103 Carbon Dioxide 28 Anion Gap 8 BUN 36 H D Creatinine 1.5 H POC Glucometer 96 132 Random Glucose 84 D Calcium 7.8 L Magnesium 1.8 Ur Random Sodium Ur Random Potassium Ur Random Chloride Active Medications Generic Name Dose Route Start Last Admin Trade Name Goodq PRN Reason Stop Dose Admin Acetylcysteine 1,200 mg 02/10/17 14:00 Mucomyst 20 Oral / Inh Use Only* PO 02/11/17 22:01 BID TONYA Amlodipine Besylate 5 mg 02/09/17 10:00 02/10/17 10:08 Norvasc - PO 5 mg DAILY [facility]ONYA Administration Carvedilol 12.5 mg 02/09/17 10:00 02/10/17 10:08 Coreg - PO 12.5 mg BID TONYA Administration Clopidogrel Bisulfate 75 mg 02/09/17 10:00 02/10/17 10:08 Plavix - PO 75 mg DAILY [facility]ON[facility] Administration Glipizide 5 mg 02/09/17 07:00 02/10/17 06:55 Glucotrol Xl - PO 5 mg AM [facility]ONYA Administration Heparin Sodium (Porcine) 5,000 unit 02/09/17 22:00 02/10/17 10:08 Heparin - SQ 5,000 unit BID TONYA Administration Insulin Aspart 1 vial 02/09/17 07:00 02/10/17 12:10 Novolog Vial Sliding Scale - SQ Not Given TIDAC [facility] Protocol Nystatin 1 applic 02/09/17 10:45 02/10/17 10:07 Nystop Powder - TP 1 applic DAILY [facility] Administration Tamsulosin HCl 0.8 mg 02/11/17 08:30 Flomax - PO DAILY@0830 [facility] Tolnaftate 1 applic 02/09/17 10:45 02/10/17 10:08 Tinactin 1% Powder - TP 1 applic BID [facility] Administration Renal ultrasound: Limited examination. Very limited visualization of the right kidney. Partially exophytic left renal simple cyst, as described above without evidence of hydronephrosis or stones. Partially distended urinary bladder limiting its evaluation with a volume of 57 cc. Poor visualization of the prostate gland measuring 8.3 cc in volume. Patient could not void. Ureteral jets were not visualized. Patient is a 56 year old male with significant past medical history of Atrial fib, CAD s/p stents (on plavix), CVA with residual left sided weakness, IDDM, HTN, HLD, COPD, Anemia, peripheral neuropathy, arterial insuffiency s/p left femoral-tibial by pass in 2013) presented to the ED via EMS with the chief complaint of lower extremity weakness. As per the patient, he has been feeling weak, unable to bear weight and very painful while attempting to walk, hence came in to the ED for further evaluation. ASSESSMENT/PLAN: 1. Acute on chronic kidney injury 2. Hypertension 3. Hyperlipidemia 4. Diabetes Mellitus-Dx 10 years ago, hasn't had an eye exam. 5. COPD-not in exacerbation 6. Normocytic anemia 7. CAD 8. CVA with residual left sided weakness 9. Peripheral neuropathy 10. CHF-could be in exacerbation Acute on chronic kidney injury Creatinine still 1.5 (baseline creatinine 1.2-1.3 (01/20/17) Kidney ultrasound done, report as mentioned above Stop IV fluids, Lasix if needed Avoid nephrotoxic drugs Repeat BMP in am Pending CTA, its on hold due to VANDA. Calculated risk of RENATO is around 26 % post Contrast. Patient has been explained the risks and benefits of CTA. He verbalized understanding and would like to go forward with CTA. Would consider giving him fluids pre procedure, stop diuretics one day prior to the procedure and adding NAC 1200 mg BID pre procedure. Proteinuria with microscopic hematuria UA-Protein +++ with 1+ blood SPEP pending, R/O causes causing proteinuria like MM Urinary symptoms Complained of Increased frequency, urgency, incontinence of urine Unlikely UTI- no evidence of UTI in UA, negative nitrite, no fever, no dysuria As per ultrasound, prostate size normal. Rest as per primary. Case discussed with Dr. Garcia. Dispo: We will continue to follow the patient. Thank you for this consultative opportunity. Visit type - Emergency Visit Emergency Visit: Yes ED Registration Date: 02/08/17 Care time: The patient presented to the Emergency Department on the above date and was hospitalized for further evaluation of their emergent condition. - New Patient This patient is new to me today: No - Critical Care Critical Care patient: No
[2017-02-10] MEDS: ACETYLCYSTEINE 20% 200MG/ML 4 ML VIAL *FOR ORAL / INH USE ONLY PO SCH ×2 (15:54→22:17)
[2017-02-11] MEDS: INSULIN SLIDING SCALE (NOVOLOG) 1 VIAL SQ SCH ×3 (06:04→17:25)
[2017-02-11] MEDS: glipiZIDE-XL 5 MG TAB.ER.24 PO SCH (06:05)
[2017-02-11 07:54] LABS: EOSINOPHIL 5.5 % (0-4.5); MCHC 34.1 g/dl (32.0-35.9); MEAN CELL VOLUME 93.8 fl (80-96); MEAN PLT VOLUME 8.4 fl (7.5-11.1); NEUTROPHILS 66.6 % (42.8-82.8); PLATELET COUNT 190 K/MM3 (134-434); RDW 13.6 % (11.9-15.9); WHITE BLOOD COUNT 5.5 K/mm3 (4.0-10.0)
[2017-02-11 08:34] LABS: ANION GAP 7 (8-16); CALCIUM 7.8 mg/dL (8.5-10.1); CO2 29 mmol/L (21-32); CREATININE 1.5 mg/dL (0.7-1.3); GLUCOSE,RANDOM 92 mg/dL (74-106); MAGNESIUM 1.9 mg/dL (1.8-2.4); PHOSPHOROUS 3.6 mg/dL (2.5-4.9)
[2017-02-11] MEDS: TAMSULOSIN HCL 0.4 MG CAP.ER.24H (FP) PO SCH (08:35)
--- NOTE | 2017-02-11 09:12 | PN ---
Progress Note, Physician Chief Complaint: no new complaints - Current Medication List Current Medications: Active Medications Acetylcysteine (Mucomyst 20 Oral / Inh Use Only*) 1,200 mg PO BID [facility] 234 BEDS AT [facility] Stop: 02/11/17 22:01 Last Admin: 02/10/17 22:17 Dose: 1,200 mg Amlodipine Besylate (Norvasc -) 5 mg PO DAILY [facility] 234 BEDS AT [facility] Last Admin: 02/10/17 10:08 Dose: 5 mg Carvedilol (Coreg -) 12.5 mg PO BID [facility] 234 BEDS AT [facility] Last Admin: 02/10/17 21:48 Dose: 12.5 mg Clopidogrel Bisulfate (Plavix -) 75 mg PO DAILY [facility]CLUDE 234 BEDS AT [facility] Last Admin: 02/10/17 10:08 Dose: 75 mg Glipizide (Glucotrol Xl -) 5 mg PO AM [facility]S [facility] 234 BEDS AT [facility] Last Admin: 02/11/17 06:05 Dose: 5 mg Heparin Sodium (Porcine) (Heparin -) 5,000 unit SQ BID [facility]S [facility]CLUDE 234 BEDS AT [facility] Last Admin: 02/10/17 21:48 Dose: 5,000 unit Insulin Aspart (Novolog Vial Sliding Scale -) 1 vial SQ TIDAC COUNTS [facility]CLUDE 234 BEDS AT [facility] PRN Reason: Protocol Last Admin: 02/11/17 06:04 Dose: Not Given Nystatin (Nystop Powder -) 1 applic TP DAILY [facility] 234 BEDS [facility] Last Admin: 02/10/17 10:07 Dose: 1 applic Tamsulosin HCl (Flomax -) 0.8 mg PO DAILY@0830 [facility] 234 BEDS [facility] Last Admin: 02/11/17 08:35 Dose: 0.8 mg Tolnaftate (Tinactin 1% Powder -) 1 applic TP BID [facility] 234 BEDS AT [facility] Last Admin: 02/10/17 21:49 Dose: 1 applic - Objective Vital Signs: Vital Signs Temperature 97.7 F 02/11/17 06:00 Pulse Rate 78 02/11/17 06:00 Respiratory Rate 20 02/11/17 06:00 Blood Pressure 149/73 02/11/17 06:00 O2 Sat by Pulse Oximetry (%) 96 02/10/17 21:00 Constitutional: Yes: Calm Cardiovascular: Yes: Regular Rate and Rhythm Respiratory: Yes: CTA Bilaterally Gastrointestinal: Yes: Soft Neurological: Yes: Alert Labs: CBC, BMP 02/11/17 07:00 02/11/17 07:00 INR, PTT INR 1.23 (0.82-1.09) H 10/11/17 20:47 Laboratory Tests 02/10/17 02/11/17 02/11/17 06:30 07:00 07:00 WBC 5.5 Hgb 8.7 L Plt Count 190 Sodium 139 Chloride 103 BUN Pending 32 H Creatinine 1.5 H Random Glucose 92 Calcium 7.8 L Phosphorus 3.6 Magnesium 1.9 Assessment/Plan IMP: CAD PAD H/o CVA Carotid artery Disease Chronic Diastolic CHF B/L LE pain: ?Claudication REC: 1. Leg Pain: D/W Dr. Humphrey and Dr. Islas. If creatinine allows, CTA LE recommended. 2. Edema: Chronic and multifactorial likely due to chronic diastolic CHF, venous insufficiency. Appears generally euvolemic without overt pulmonary edema at this time. Renal following. Lasix had been held hoping for improvement in creatinine. No objection to resuming it and watching renal fxn closely, if improves can then perform CTA
--- NOTE | 2017-02-11 09:58 | PN ---
Progress Note (short form) - Note Progress Note: Renal follow up for VANDA/CKD Pt seen and examined at the bedside has some sob this am Vital Signs Temperature 97.7 F 02/11/17 06:00 Pulse Rate 78 02/11/17 06:00 Respiratory Rate 20 02/11/17 06:00 Blood Pressure 149/73 02/11/17 06:00 O2 Sat by Pulse Oximetry (%) 96 02/10/17 21:00 Intake & Output 02/08/17 02/09/17 02/10/17 02/11/17 23:59 23:59 23:59 23:59 Intake Total 0 2100 1600 Output Total 600 1975 1600 1025 Balance -600 125 0 -1025 Weight 200 lb 188 lb 12.8 oz NAD RRR, No M/R CTA, no rales soft NT 1+ edema in LE CBC, BMP 02/11/17 07:00 02/11/17 07:00 Current Medications Acetylcysteine (Mucomyst 20 Oral / Inh Use Only*) 1,200 mg PO BID [facility] Stop: 02/11/17 22:01 Last Admin: 02/10/17 22:17 Dose: 1,200 mg Amlodipine Besylate (Norvasc -) 5 mg PO DAILY [facility] Last Admin: 02/10/17 10:08 Dose: 5 mg Carvedilol (Coreg -) 12.5 mg PO BID [facility] Last Admin: 02/10/17 21:48 Dose: 12.5 mg Clopidogrel Bisulfate (Plavix -) 75 mg PO DAILY [facility] Last Admin: 02/10/17 10:08 Dose: 75 mg Glipizide (Glucotrol Xl -) 5 mg PO AM [facility] Last Admin: 02/11/17 06:05 Dose: 5 mg Heparin Sodium (Porcine) (Heparin -) 5,000 unit SQ BID [facility] Last Admin: 02/10/17 21:48 Dose: 5,000 unit Insulin Aspart (Novolog Vial Sliding Scale -) 1 vial SQ TIDAC [facility] PRN Reason: Protocol Last Admin: 02/11/17 06:04 Dose: Not Given Nystatin (Nystop Powder -) 1 applic TP DAILY [facility] Last Admin: 02/10/17 10:07 Dose: 1 applic Tamsulosin HCl (Flomax -) 0.8 mg PO DAILY@0830 [facility] Last Admin: 02/11/17 08:35 Dose: 0.8 mg Tolnaftate (Tinactin 1% Powder -) 1 applic TP BID [facility] Last Admin: 02/10/17 21:49 Dose: 1 applic 56 year old gentleman with PMhx of Atrial fib, CAD s/p stents (on plavix), CVA with residual left sided weakness, IDDM, HTN, HLD, COPD, Anemia who presented from home with compliant of frequent urination and sob and admitted with acute on CHF and BUN/Cr of 31/1.5 (baseline Cr 1.3) #Mild worsening of renal function/Azotemia in setting of CHF/Fluid overload Renal function essentially unchanged off lasix renal function stable the last 24 hours UPCR is pending Renal Us noted, normal appearing kidneys with simple renal cyst no BPH noted on US but with inability to void started trial of flomax #Contrast nephropathy risk assessment/Prophylaxis Risk of RENATO is 26% (rise in Cr by 25%) and risk of immediate dialysis is 1.1% with 100cc of contrast these risks were explained to the patient can monitor Cr to see fi there is a improvement would be cautions with holding diuretics for too long given HF can given Mucomyst 1200mg PO BID Ct to be ordered by vascular sx #CHF Cardiology following off lasix for the time being pending CT scan Thank you
[2017-02-11] MEDS ORDERED: PT OWN MED DRAWER 7, Y5N ONE (09:59)
[2017-02-11] MEDS: CLOPIDOGREL BISULFATE 75 MG TABLET (FP) PO SCH (10:01)
[2017-02-11] MEDS: ACETYLCYSTEINE 20% 200MG/ML 4 ML VIAL *FOR ORAL / INH USE ONLY PO SCH ×2 (10:01→22:11)
[2017-02-11] MEDS: NYSTATIN POWDER 100,000 UNITS/GM - 15 GM TOPICAL POWDER TP SCH (10:01)
[2017-02-11] MEDS: CARVEDILOL 12.5 MG TABLET (FP) PO SCH ×2 (10:01→22:11)
[2017-02-11] MEDS: amLODIPine BESYLATE 5 MG TABLET (FP) PO SCH (10:01)
[2017-02-11] MEDS: HEPARIN NA (PORCINE) 5,000 UNITS/ML 1ML VIAL SQ SCH ×2 (10:01→22:11)
[2017-02-11] MEDS: TOLNAFTATE 1% POWDER 45 GM POW TP SCH ×2 (10:01→22:12)
[2017-02-11] MEDS ORDERED: ACETAMINOPHEN 325 MG TABLET (FP) PO PRN (12:42)
--- NOTE | 2017-02-11 12:43 | PN ---
Progress Note (short form) - Note Progress Note: pt seen/ examined comfortable no new issues still complains of pain in legs Vital Signs Temp 97.7 F 02/11/17 06:00 Pulse 78 02/11/17 06:00 Resp 20 02/11/17 06:00 BP 149/73 02/11/17 06:00 Pulse Ox 96 02/10/17 21:00 Intake & Output 02/10/17 02/11/17 02/11/17 23:59 11:59 23:59 Intake Total 800 350 Output Total 800 1325 Balance 0 -975 Intake: Oral 400 350 Oral Supplement 400 Output: Urine 800 1325 Void 800 1325 Other: Voiding Method Urinal Urinal Bowel Movement No Yes # Bowel Movements 0 0 Active Medications Acetaminophen (Tylenol -) 650 mg PO Q6H PRN PRN Reason: FEVER OR PAIN Acetylcysteine (Mucomyst 20 Oral / Inh Use Only*) 1,200 mg PO BID [facility] Stop: 02/11/17 22:01 Last Admin: 02/11/17 10:01 Dose: 1,200 mg Amlodipine Besylate (Norvasc -) 5 mg PO DAILY [facility] Last Admin: 02/11/17 10:01 Dose: 5 mg Carvedilol (Coreg -) 12.5 mg PO BID [facility] Last Admin: 02/11/17 10:01 Dose: 12.5 mg Clopidogrel Bisulfate (Plavix -) 75 mg PO DAILY [facility] Last Admin: 02/11/17 10:01 Dose: 75 mg Glipizide (Glucotrol Xl -) 5 mg PO AM [facility] Last Admin: 02/11/17 06:05 Dose: 5 mg Heparin Sodium (Porcine) (Heparin -) 5,000 unit SQ BID [facility] Last Admin: 02/11/17 10:01 Dose: 5,000 unit Insulin Aspart (Novolog Vial Sliding Scale -) 1 vial SQ TIDAC [facility] PRN Reason: Protocol Last Admin: 02/11/17 12:19 Dose: 2 units Nystatin (Nystop Powder -) 1 applic TP DAILY [facility] Last Admin: 02/11/17 10:01 Dose: 1 applic Oxycodone/Acetaminophen (Percocet 5/325 -) 1 combo PO Q4H PRN PRN Reason: PAIN LEVEL 1-5 Tamsulosin HCl (Flomax -) 0.8 mg PO DAILY@0830 [facility] Last Admin: 02/11/17 08:35 Dose: 0.8 mg Tolnaftate (Tinactin 1% Powder -) 1 applic TP BID [facility] Last Admin: 02/11/17 10:01 Dose: 1 applic CBC, BMP 02/11/17 07:00 02/11/17 07:00 Microbiology 02/08/17 20:20 Blood Culture - Preliminary Blood - Peripheral Venous NO GROWTH OBTAINED AFTER 48 HOURS, INCUBATION TO CONTINUE FOR 3 DAYS. 02/08/17 20:20 Blood Culture - Preliminary Blood - Peripheral Venous NO GROWTH OBTAINED AFTER 48 HOURS, INCUBATION TO CONTINUE FOR 3 DAYS. 02/08/17 20:20 Urine Culture - Final Urine - Urine Clean Catch Physical Examination Vital Signs: Vital Signs Temperature 98.3 F 02/09/17 06:32 Pulse Rate 83 02/09/17 06:32 Respiratory Rate 20 02/09/17 06:32 Blood Pressure 159/82 02/09/17 06:32 O2 Sat by Pulse Oximetry (%) 96 02/09/17 00:30 Constitutional: Yes: No Distress, Calm/ comfortable. Cardiovascular: Yes: Regular Rate and Rhythm Respiratory: Yes: CTA Bilaterally Gastrointestinal: Yes: Normal Bowel Sounds, Soft, Abdomen, Obese. No: Distention, Tenderness Edema: Yes Edema: LLE: 2+, RLE: 2+ Psychiatric: Yes: Alert, Oriented Imaging - Results Chest X-ray: Image Reviewed (no congestion) Ultrasound: Report Reviewed (no DVT) EKG: Image Reviewed (NSR, LAFB) Problem List - Problems (1) ASHD (arteriosclerotic heart disease) Code(s): I25.10 - ATHSCL HEART DISEASE OF [place] CORONARY ARTERY W/O ANG PCTRS (2) CKD (chronic kidney disease) Code(s): N18.9 - CHRONIC KIDNEY DISEASE, UNSPECIFIED Qualifiers: Chronic kidney disease stage: unspecified stage Qualified Code(s): N18.9 - Chronic kidney disease, unspecified; N18.9 - Chronic kidney disease, unspecified (3) Diastolic CHF Code(s): I50.30 - UNSPECIFIED DIASTOLIC (CONGESTIVE) HEART FAILURE (4) PAD (peripheral artery disease) Code(s): I73.9 - PERIPHERAL VASCULAR DISEASE, UNSPECIFIED (5) Arterial insufficiency of lower extremity Code(s): I73.9 - PERIPHERAL VASCULAR DISEASE, UNSPECIFIED Assessment/Plan PLAN continue present care present care cta pending lasix to be started after cta monitor renal function. will follow
[2017-02-12] MEDS: INSULIN SLIDING SCALE (NOVOLOG) 1 VIAL SQ SCH ×3 (06:01→17:42)
[2017-02-12] MEDS: glipiZIDE-XL 5 MG TAB.ER.24 PO SCH (06:04)
[2017-02-12 08:04] LABS: BASOPHIL 0.6 % (0-2.0); EOSINOPHIL 4.1 % (0-4.5); MCH 31.2 pg (25.7-33.7); MCHC 33.3 g/dl (32.0-35.9); MEAN CELL VOLUME 93.7 fl (80-96); MEAN PLT VOLUME 8.8 fl (7.5-11.1); NEUTROPHILS 70.9 % (42.8-82.8); PLATELET COUNT 188 K/MM3 (134-434); RDW 13.5 % (11.9-15.9)
[2017-02-12 08:26] LABS: ANION GAP 10 (8-16); CALCIUM 7.9 mg/dL (8.5-10.1); CO2 26 mmol/L (21-32); CREATININE 1.6 mg/dL (0.7-1.3); GLUCOSE,RANDOM 104 mg/dL (74-106); MAGNESIUM 2.1 mg/dL (1.8-2.4); PHOSPHOROUS 3.5 mg/dL (2.5-4.9)
[2017-02-12] MEDS: TAMSULOSIN HCL 0.4 MG CAP.ER.24H (FP) PO SCH (08:51)
--- NOTE | 2017-02-12 09:09 | PN ---
Progress Note (short form) - Note Progress Note: Renal follow up for VANDA/CKD Pt seen and examined at the bedside attempted to have CT scan yesterday but IV did not function so had to stop the test did receive about 30 cc of contrast Vital Signs Temperature 98.8 F 02/12/17 06:00 Pulse Rate 80 02/12/17 06:00 Respiratory Rate 20 02/12/17 06:00 Blood Pressure 135/59 02/12/17 06:00 O2 Sat by Pulse Oximetry (%) 96 02/11/17 21:00 Intake & Output 02/09/17 02/10/17 02/11/17 02/12/17 23:59 23:59 23:59 23:59 Intake Total 2100 1600 1150 Output Total 1975 1600 2525 800 Balance 125 0 -1375 -800 Weight 188 lb 12.8 oz NAD RRR, No M/R CTA, no rales soft NT 1+ edema in LE CBC, BMP 02/12/17 07:00 02/12/17 07:00 Laboratory Tests 02/08/17 02/12/17 20:20 07:00 Calcium 7.9 L Phosphorus 3.5 Magnesium 2.1 Ur Specific [place] 1.025 Current Medications Acetaminophen (Tylenol -) 650 mg PO Q6H PRN PRN Reason: FEVER OR PAIN Acetaminophen (Tylenol -) 325 mg PO Q4H PRN PRN Reason: PAIN LEVEL 1-5 Amlodipine Besylate (Norvasc -) 5 mg PO DAILY [facility] Last Admin: 02/11/17 10:01 Dose: 5 mg Carvedilol (Coreg -) 12.5 mg PO BID [facility] Last Admin: 02/11/17 22:11 Dose: 12.5 mg Clopidogrel Bisulfate (Plavix -) 75 mg PO DAILY [facility] Last Admin: 02/11/17 10:01 Dose: 75 mg Glipizide (Glucotrol Xl -) 5 mg PO AM [facility] Last Admin: 02/12/17 06:04 Dose: 5 mg Heparin Sodium (Porcine) (Heparin -) 5,000 unit SQ BID [facility] Last Admin: 02/11/17 22:11 Dose: 5,000 unit Insulin Aspart (Novolog Vial Sliding Scale -) 1 vial SQ TIDAC [facility] PRN Reason: Protocol Last Admin: 02/12/17 06:01 Dose: Not Given Nystatin (Nystop Powder -) 1 applic TP DAILY [facility] Last Admin: 02/11/17 10:01 Dose: 1 applic Oxycodone HCl (Roxicodone -) 5 mg PO Q4H PRN PRN Reason: PAIN LEVEL 1-5 Tamsulosin HCl (Flomax -) 0.8 mg PO DAILY@0830 [facility] Last Admin: 02/12/17 08:51 Dose: 0.8 mg Tolnaftate (Tinactin 1% Powder -) 1 applic TP BID [facility] Last Admin: 02/11/17 22:12 Dose: 1 applic 56 year old gentleman with PMhx of Atrial fib, CAD s/p stents (on plavix), CVA with residual left sided weakness, IDDM, HTN, HLD, COPD, Anemia who presented from home with compliant of frequent urination and sob and admitted with acute on CHF and BUN/Cr of 31/1.5 (baseline Cr 1.3) #Mild worsening of renal function/Azotemia in setting of CHF/Fluid overload Renal function essentially stable continue to trend BUN/Cr SPEP pending UPCR pending #Contrast nephropathy risk assessment/Prophylaxis Risk of RENATO is 26% (rise in Cr by 25%) and risk of immediate dialysis is 1.1% with 100cc of contrast these risks were explained to the patient for repeat attempt at the CT today continue Mucomyst Trend BUN/Cr no IVF b/c of HF, holding diuretics #CHF Cardiology following off lasix for the time being pending CT scan Thank you
--- NOTE | 2017-02-12 09:20 | PN ---
Progress Note, Physician Chief Complaint: no distress Creat 1.6, overall trend is stable - Current Medication List Current Medications: Active Medications Acetaminophen (Tylenol -) 650 mg PO Q6H PRN PRN Reason: FEVER OR PAIN Acetaminophen (Tylenol -) 325 mg PO Q4H PRN PRN Reason: PAIN LEVEL 1-5 Amlodipine Besylate (Norvasc -) 5 mg PO DAILY [facility] Last Admin: 02/11/17 10:01 Dose: 5 mg Carvedilol (Coreg -) 12.5 mg PO BID [facility] Last Admin: 02/11/17 22:11 Dose: 12.5 mg Clopidogrel Bisulfate (Plavix -) 75 mg PO DAILY [facility] Last Admin: 02/11/17 10:01 Dose: 75 mg Glipizide (Glucotrol Xl -) 5 mg PO AM [facility] Last Admin: 02/12/17 06:04 Dose: 5 mg Heparin Sodium (Porcine) (Heparin -) 5,000 unit SQ BID [facility] Last Admin: 02/11/17 22:11 Dose: 5,000 unit Insulin Aspart (Novolog Vial Sliding Scale -) 1 vial SQ TIDAC [facility] PRN Reason: Protocol Last Admin: 02/12/17 06:01 Dose: Not Given Nystatin (Nystop Powder -) 1 applic TP DAILY [facility] Last Admin: 02/11/17 10:01 Dose: 1 applic Oxycodone HCl (Roxicodone -) 5 mg PO Q4H PRN PRN Reason: PAIN LEVEL 1-5 Tamsulosin HCl (Flomax -) 0.8 mg PO DAILY@0830 [facility] Last Admin: 02/12/17 08:51 Dose: 0.8 mg Tolnaftate (Tinactin 1% Powder -) 1 applic TP BID [facility] Last Admin: 02/11/17 22:12 Dose: 1 applic - Objective Vital Signs: Vital Signs Temperature 98.8 F 02/12/17 06:00 Pulse Rate 80 02/12/17 06:00 Respiratory Rate 20 02/12/17 06:00 Blood Pressure 135/59 02/12/17 06:00 O2 Sat by Pulse Oximetry (%) 96 02/11/17 21:00 Constitutional: Yes: Calm Cardiovascular: Yes: Regular Rate and Rhythm Respiratory: Yes: CTA Bilaterally, Other (slight decreased basilar breath sounds ) Gastrointestinal: Yes: Soft Edema: Yes Edema: LLE: 1+, RLE: 1+ Neurological: Yes: Alert, Oriented Labs: CBC, BMP 02/12/17 07:00 02/12/17 07:00 INR, PTT INR 1.23 (0.82-1.09) H 02/08/17 20:47 Laboratory Tests 02/12/17 02/12/17 07:00 07:00 WBC 6.0 Hgb 8.7 L Plt Count 188 Sodium 139 Potassium 4.8 BUN 33 H Creatinine 1.6 H Magnesium 2.1 Assessment/Plan IMP: CAD PAD H/o CVA Carotid artery Disease Chronic Diastolic CHF B/L LE pain: ?Claudication REC: 1. Leg Pain: D/W Dr. Humphrey and Dr. Islas. CTA planned for today, overall GFR is stable. D/W Nephrology. 2. Edema: Chronic and multifactorial likely due to chronic diastolic CHF, venous insufficiency. Appears generally euvolemic without overt pulmonary edema at this time. Will likely need to resume Lasix after CTA.
[2017-02-12] MEDS ORDERED: PT OWN MED DRAWER 7, Y5N ONE (10:09)
[2017-02-12] MEDS: CARVEDILOL 12.5 MG TABLET (FP) PO SCH ×2 (10:15→22:16)
[2017-02-12] MEDS: amLODIPine BESYLATE 5 MG TABLET (FP) PO SCH (10:15)
[2017-02-12] MEDS: HEPARIN NA (PORCINE) 5,000 UNITS/ML 1ML VIAL SQ SCH ×2 (10:15→22:15)
[2017-02-12] MEDS: CLOPIDOGREL BISULFATE 75 MG TABLET (FP) PO SCH (10:15)
[2017-02-12] MEDS: TOLNAFTATE 1% POWDER 45 GM POW TP SCH ×2 (10:16→22:20)
[2017-02-12] MEDS: NYSTATIN POWDER 100,000 UNITS/GM - 15 GM TOPICAL POWDER TP SCH (10:16)
[2017-02-12] MEDS: oxyCODONE HCL 5 MG TABLET PO PRN ×2 (12:06→20:45)
--- NOTE | 2017-02-12 12:08 | PN ---
Progress Note (short form) - Note Progress Note: pt s condition same. no new issues feels ok Vital Signs Temp 98.1 F 02/12/17 10:00 Pulse 85 02/12/17 10:00 Resp 18 02/12/17 10:00 BP 139/78 02/12/17 10:00 Pulse Ox 96 02/12/17 09:00 Intake & Output 02/11/17 02/12/17 02/12/17 23:59 11:59 23:59 Intake Total 800 350 Output Total 1200 800 Balance -400 -450 Intake: Oral 800 350 Output: Urine 1200 800 Void 1200 800 Other: Voiding Method Urinal Urinal Bowel Movement No No # Bowel Movements 1 Active Medications Acetaminophen (Tylenol -) 650 mg PO Q6H PRN PRN Reason: FEVER OR PAIN Acetaminophen (Tylenol -) 325 mg PO Q4H PRN PRN Reason: PAIN LEVEL 1-5 Amlodipine Besylate (Norvasc -) 5 mg PO DAILY [facility] Last Admin: 02/12/17 10:15 Dose: 5 mg Carvedilol (Coreg -) 12.5 mg PO BID [facility] Last Admin: 02/12/17 10:15 Dose: 12.5 mg Clopidogrel Bisulfate (Plavix -) 75 mg PO DAILY [facility] Last Admin: 02/12/17 10:15 Dose: 75 mg Glipizide (Glucotrol Xl -) 5 mg PO AM [facility] Last Admin: 02/12/17 06:04 Dose: 5 mg Heparin Sodium (Porcine) (Heparin -) 5,000 unit SQ BID [facility] Last Admin: 02/12/17 10:15 Dose: 5,000 unit Insulin Aspart (Novolog Vial Sliding Scale -) 1 vial SQ TIDAC [facility] PRN Reason: Protocol Last Admin: 02/12/17 11:44 Dose: Not Given Nystatin (Nystop Powder -) 1 applic TP DAILY [facility] Last Admin: 02/12/17 10:16 Dose: 1 applic Oxycodone HCl (Roxicodone -) 5 mg PO Q4H PRN PRN Reason: PAIN LEVEL 1-5 Last Admin: 02/12/17 12:06 Dose: 5 mg Tamsulosin HCl (Flomax -) 0.8 mg PO DAILY@0830 [facility] Last Admin: 02/12/17 08:51 Dose: 0.8 mg Tolnaftate (Tinactin 1% Powder -) 1 applic TP BID [facility] Last Admin: 02/12/17 10:16 Dose: 1 applic CBC, BMP 02/12/17 07:00 02/12/17 07:00 Microbiology 02/08/17 20:20 Blood Culture - Preliminary Blood - Peripheral Venous NO GROWTH OBTAINED AFTER 72 HOURS, INCUBATION TO CONTINUE FOR 2 DAYS. 02/08/17 20:20 Blood Culture - Preliminary Blood - Peripheral Venous NO GROWTH OBTAINED AFTER 72 HOURS, INCUBATION TO CONTINUE FOR 2 DAYS. Physical Examination Constitutional: Yes: No Distress, Calm Cardiovascular: Yes: Regular Rate and Rhythm Respiratory: Yes: CTA Bilaterally Gastrointestinal: Yes: Normal Bowel Sounds, Soft, Abdomen, Obese. No: Distention, Tenderness Edema: Yes Edema: LLE: 2+, RLE: 2+ Psychiatric: Yes: Alert, Oriented Imaging - Results Chest X-ray: Image Reviewed (no congestion) Ultrasound: Report Reviewed (no DVT) EKG: Image Reviewed (NSR, LAFB) Problem List - Problems (1) ASHD (arteriosclerotic heart disease) Code(s): I25.10 - ATHSCL HEART DISEASE OF [place] CORONARY ARTERY W/O ANG PCTRS (2) CKD (chronic kidney disease) Code(s): N18.9 - CHRONIC KIDNEY DISEASE, UNSPECIFIED Qualifiers: Chronic kidney disease stage: unspecified stage Qualified Code(s): N18.9 - Chronic kidney disease, unspecified; N18.9 - Chronic kidney disease, unspecified (3) Diastolic CHF Code(s): I50.30 - UNSPECIFIED DIASTOLIC (CONGESTIVE) HEART FAILURE (4) PAD (peripheral artery disease) Code(s): I73.9 - PERIPHERAL VASCULAR DISEASE, UNSPECIFIED (5) Arterial insufficiency of lower extremity Code(s): I73.9 - PERIPHERAL VASCULAR DISEASE, UNSPECIFIED Assessment/Plan stable continue present care pain control cta pending pt aware of risks of cta monitor renal function will follow
[2017-02-12] MEDS: ACETAMINOPHEN 325 MG TABLET (FP) PO PRN (20:46)
[2017-02-13] MEDS ORDERED: PT OWN MED DRAWER 7, Y5N ONE (06:09)
[2017-02-13] MEDS: INSULIN SLIDING SCALE (NOVOLOG) 1 VIAL SQ SCH ×3 (06:23→16:52)
[2017-02-13] MEDS: glipiZIDE-XL 5 MG TAB.ER.24 PO SCH (06:24)
[2017-02-13] MEDS: ACETAMINOPHEN 325 MG TABLET (FP) PO PRN (07:57)
[2017-02-13] MEDS: oxyCODONE HCL 5 MG TABLET PO PRN (07:57)
[2017-02-13 08:31] LABS: BASOPHIL 0.8 % (0-2.0); EOSINOPHIL 4.7 % (0-4.5); MCH 31.4 pg (25.7-33.7); MCHC 33.2 g/dl (32.0-35.9); MEAN CELL VOLUME 94.6 fl (80-96); NEUTROPHILS 70.6 % (42.8-82.8); PLATELET COUNT 193 K/MM3 (134-434); RDW 13.6 % (11.9-15.9); WHITE BLOOD COUNT 5.7 K/mm3 (4.0-10.0)
[2017-02-13] MEDS: TAMSULOSIN HCL 0.4 MG CAP.ER.24H (FP) PO SCH (08:42)
[2017-02-13 08:56] LABS: MAGNESIUM 2.2 mg/dL (1.8-2.4)
--- NOTE | 2017-02-13 10:33 | PN ---
Progress Note, Physician History of Present Illness: seen and examined today in nad. c/o b/l LE discomfort especially LLE. no chest pain, no sob. - Current Medication List Current Medications: Active Medications Acetaminophen (Tylenol -) 650 mg PO Q6H PRN PRN Reason: FEVER OR PAIN Acetaminophen (Tylenol -) 325 mg PO Q4H PRN PRN Reason: PAIN LEVEL 1-5 Last Admin: 02/13/17 07:57 Dose: 325 mg Amlodipine Besylate (Norvasc -) 5 mg PO DAILY [facility] Last Admin: 02/12/17 10:15 Dose: 5 mg Carvedilol (Coreg -) 12.5 mg PO BID [facility] Last Admin: 02/12/17 22:16 Dose: 12.5 mg Clopidogrel Bisulfate (Plavix -) 75 mg PO DAILY [facility] Last Admin: 02/12/17 10:15 Dose: 75 mg Glipizide (Glucotrol Xl -) 5 mg PO AM [facility] Last Admin: 02/13/17 06:24 Dose: 5 mg Heparin Sodium (Porcine) (Heparin -) 5,000 unit SQ BID [facility] Last Admin: 02/12/17 22:15 Dose: 5,000 unit Insulin Aspart (Novolog Vial Sliding Scale -) 1 vial SQ TIDAC [facility] PRN Reason: Protocol Last Admin: 02/13/17 06:23 Dose: Not Given Nystatin (Nystop Powder -) 1 applic TP DAILY [facility] Last Admin: 02/12/17 10:16 Dose: 1 applic Oxycodone HCl (Roxicodone -) 5 mg PO Q4H PRN PRN Reason: PAIN LEVEL 1-5 Last Admin: 02/13/17 07:57 Dose: 5 mg Tamsulosin HCl (Flomax -) 0.8 mg PO DAILY@0830 [facility] Last Admin: 02/13/17 08:42 Dose: 0.8 mg Tolnaftate (Tinactin 1% Powder -) 1 applic TP BID [facility] Last Admin: 02/12/17 22:20 Dose: 1 applic - Objective Vital Signs: Vital Signs Temperature 98.9 F 02/13/17 06:00 Pulse Rate 79 02/13/17 06:00 Respiratory Rate 18 02/13/17 06:00 Blood Pressure 118/50 02/13/17 06:00 O2 Sat by Pulse Oximetry (%) 95 02/12/17 21:00 Constitutional: Yes: No Distress, Calm Eyes: Yes: Conjunctiva Clear, EOM Intact, PERRL HENT: Yes: Atraumatic, Normocephalic Neck: Yes: Supple, Trachea Midline Cardiovascular: Yes: Regular Rate and Rhythm, S1, S2. No: Bradycardia, Tachycardia, Pulse Irregular, Bruit, JVD, Gallop, Murmur, Rub, S3, S4, Varicosities Respiratory: Yes: Regular, CTA Bilaterally. No: Rales, Rhonchi, Wheezes Gastrointestinal: Yes: Normal Bowel Sounds, Soft. No: Distention, Tenderness Edema: Yes Edema: LLE: 2+ Neurological: Yes: Alert, Oriented Psychiatric: Yes: Alert, Oriented Labs: CBC, BMP 02/13/17 06:00 INR, PTT INR 1.23 (0.82-1.09) H 02/08/17 20:47 - ....Imaging Chest X-ray: Report Reviewed, Image Reviewed EKG: Report Reviewed, Image Reviewed Other: Report Reviewed, Image Reviewed Assessment/Plan IMP: CAD PAD H/o CVA Carotid artery Disease Chronic Diastolic CHF B/L LE pain: ?Claudication REC: Edema-LLE>RLE Chronic and multifactorial likely due to chronic diastolic CHF, venous insufficiency. F/up CTA Aorta/LE results from yesterday, not yet reported Vascular f/up Overall euvolemic despite LLE edema, no pulm edema, urine at bedside is dark with elevated bun/creat ration suggesting intravascular depletion Hold Lasix for now and will monitor, will likely need to be resumed in near future Cont Coreg, Norvasc Cont Plavix for now
[2017-02-13 10:40] LABS: ANION GAP 7 (8-16); CALCIUM 7.9 mg/dL (8.5-10.1); CO2 25 mmol/L (21-32); CREATININE 2.3 mg/dL (0.7-1.3); GLUCOSE,RANDOM 110 mg/dL (74-106)
--- NOTE | 2017-02-13 10:59 | PN ---
Progress Note (short form) - Note Progress Note: pt seen/ examined feels weak today no specific complains denies cp/sob. had cta done - report pending worsening bun/cr Vital Signs Temp 98.9 F 02/13/17 06:00 Pulse 79 02/13/17 06:00 Resp 18 02/13/17 06:00 BP 118/50 02/13/17 06:00 Pulse Ox 95 02/12/17 21:00 Intake & Output 02/12/17 02/12/17 02/13/17 11:59 23:59 11:59 Intake Total 350 770 Output Total 800 650 Balance -450 120 Intake: IV 10 SALINE LOCK 10 Oral 350 760 Output: Urine 800 650 Void 800 650 Other: Voiding Method Urinal Urinal Bowel Movement No Yes Yes # Bowel Movements 1 1 Active Medications Acetaminophen (Tylenol -) 650 mg PO Q6H PRN PRN Reason: FEVER OR PAIN Acetaminophen (Tylenol -) 325 mg PO Q4H PRN PRN Reason: PAIN LEVEL 1-5 Last Admin: 02/13/17 07:57 Dose: 325 mg Amlodipine Besylate (Norvasc -) 5 mg PO DAILY [facility] Last Admin: 02/12/17 10:15 Dose: 5 mg Carvedilol (Coreg -) 12.5 mg PO BID [facility] Last Admin: 02/12/17 22:16 Dose: 12.5 mg Clopidogrel Bisulfate (Plavix -) 75 mg PO DAILY [facility] Last Admin: 02/12/17 10:15 Dose: 75 mg Glipizide (Glucotrol Xl -) 5 mg PO AM [facility] Last Admin: 02/13/17 06:24 Dose: 5 mg Heparin Sodium (Porcine) (Heparin -) 5,000 unit SQ BID [facility] Last Admin: 02/12/17 22:15 Dose: 5,000 unit Sodium Chloride (1/2 Normal Saline) 1,000 mls @ 83 mls/hr IV ASDIR [facility] Insulin Aspart (Novolog Vial Sliding Scale -) 1 vial SQ TIDAC [facility] PRN Reason: Protocol Last Admin: 02/13/17 06:23 Dose: Not Given Nystatin (Nystop Powder -) 1 applic TP DAILY [facility] Last Admin: 02/12/17 10:16 Dose: 1 applic Oxycodone HCl (Roxicodone -) 5 mg PO Q4H PRN PRN Reason: PAIN LEVEL 1-5 Last Admin: 02/13/17 07:57 Dose: 5 mg Tamsulosin HCl (Flomax -) 0.8 mg PO DAILY@0830 [facility] Last Admin: 02/13/17 08:42 Dose: 0.8 mg Tolnaftate (Tinactin 1% Powder -) 1 applic TP BID [facility] Last Admin: 02/12/17 22:20 Dose: 1 applic CBC, BMP 02/13/17 06:00 02/13/17 06:00 cta- pending report. Microbiology 02/08/17 20:20 Blood Culture - Preliminary Blood - Peripheral Venous NO GROWTH OBTAINED AFTER 96 HOURS, INCUBATION TO CONTINUE FOR 1 DAYS. 02/08/17 20:20 Blood Culture - Preliminary Blood - Peripheral Venous NO GROWTH OBTAINED AFTER 96 HOURS, INCUBATION TO CONTINUE FOR 1 DAYS. Physical Examination Constitutional: Yes: No Distress, Calm/ comfortable Cardiovascular: Yes: Regular Rate and Rhythm Respiratory: Yes: CTA Bilaterally Gastrointestinal: Yes: Normal Bowel Sounds, Soft, Abdomen, Obese. No: Distention, Tenderness Edema: Yes Edema:+1 -- decreased Psychiatric: Yes: Alert, Oriented Imaging - Results Chest X-ray: Image Reviewed (no congestion) Ultrasound: Report Reviewed (no DVT) EKG: Image Reviewed (NSR, LAFB) Problem List - Problems (1) ASHD (arteriosclerotic heart disease) Code(s): I25.10 - ATHSCL HEART DISEASE OF [place] CORONARY ARTERY W/O ANG PCTRS (2) CKD (chronic kidney disease) Code(s): N18.9 - CHRONIC KIDNEY DISEASE, UNSPECIFIED Qualifiers: Chronic kidney disease stage: unspecified stage Qualified Code(s): N18.9 - Chronic kidney disease, unspecified; N18.9 - Chronic kidney disease, unspecified (3) Diastolic CHF Code(s): I50.30 - UNSPECIFIED DIASTOLIC (CONGESTIVE) HEART FAILURE (4) PAD (peripheral artery disease) Code(s): I73.9 - PERIPHERAL VASCULAR DISEASE, UNSPECIFIED (5) Arterial insufficiency of lower extremity Code(s): I73.9 - PERIPHERAL VASCULAR DISEASE, UNSPECIFIED Assessment/Plan stable continue present care pain control cta pending report will start on mild hydration monitor renal function renal/ vascular to follow will follow
[2017-02-13] MEDS ORDERED: SODIUM CHLORIDE 0.45% 1,000 ML IV SCH ×2 (11:00)
--- NOTE | 2017-02-13 11:22 | PN ---
Physical Exam: SUBJECTIVE: Patient seen and examined at bed side this morning. OBJECTIVE: Vital Signs Period Temp Pulse Resp BP Sys/Fuentes Pulse Ox Last 24 Hr 97 F-98.9 F 75-84 18-20 118-153/50-76 95 GENERAL: Pleasant male, lying comfortably in bed, Awake, alert, and fully oriented, in no acute distress. HEAD: Normal with no signs of trauma. EYES: EOM intact, no pallor or icterus. EARS, NOSE, THROAT: Ears normal. Moist mucous membranes. NECK: Supple. LUNGS: B/L Breath sounds equal, clear to auscultation bilaterally. No wheezes, and no crackles. HEART: Regular rate and rhythm, normal S1 and S2 with soft systolic murmur. ABDOMEN: Soft, nontender, not distended, normoactive bowel sounds, no guarding, no rebound, no masses. No hepatomegaly or splenomegaly. MUSCULOSKELETAL: Normal range of motion at all joints. No bony deformities or tenderness. No CVA tenderness. UPPER EXTREMITIES: 2+ pulses, warm, well-perfused. No cyanosis. No clubbing. Cap refill <2 seconds. No peripheral edema. RIGHT LOWER EXTREMITIES: 2+ pulses, warm, well-perfused. No calf tenderness. No peripheral edema. LEFT LOWER EXTREMITIES: Dressing applied in the left calf area, slightly tender to palpation. NEUROLOGICAL: No facial droop, power 5/5 in the right upper and lower ext, power 4/5 in the left upper and lower ext. Gait not observed. PSYCHIATRIC: Cooperative. Good eye contact. Appropriate mood and affect. SKIN: Warm, dry, normal turgor, no rashes or lesions noted. Laboratory Results - last 24 hr 02/12/17 02/12/17 02/13/17 11:43 17:16 06:00 WBC 5.7 RBC 2.77 L Hgb 8.7 L Hct 26.2 L MCV 94.6 MCH 31.4 MCHC 33.2 RDW 13.6 Plt Count 193 MPV 9.0 Neutrophils % 70.6 Lymphocytes % 13.6 Monocytes % 10.3 H Eosinophils % 4.7 H Basophils % 0.8 Sodium Potassium Chloride Carbon Dioxide Anion Gap BUN Creatinine POC Glucometer 143 121 Random Glucose Calcium Phosphorus Magnesium 02/13/17 02/13/17 02/13/17 06:00 06:00 06:07 WBC RBC Hgb Hct MCV MCH MCHC RDW Plt Count MPV Neutrophils % Lymphocytes % Monocytes % Eosinophils % Basophils % Sodium 138 Potassium 5.2 H Chloride 106 Carbon Dioxide 25 Anion Gap 7 L BUN 47 H D Creatinine 2.3 H D POC Glucometer 146 Random Glucose 110 H Calcium 7.9 L Phosphorus 5.0 H D Magnesium 2.2 Active Medications Generic Name Dose Route Start Last Admin Trade Name Freq PRN Reason Stop Dose Admin Acetaminophen 650 mg 02/11/17 12:42 Tylenol - PO Q6H PRN FEVER OR PAIN Acetaminophen 325 mg 02/11/17 13:19 02/13/17 07:57 Tylenol - PO 325 mg Q4H PRN Administration PAIN LEVEL 1-5 Amlodipine Besylate 5 mg 02/09/17 10:00 02/12/17 10:15 Norvasc - PO 5 mg DAILY [facility] Administration Carvedilol 12.5 mg 02/09/17 10:00 02/12/17 22:16 Coreg - PO 12.5 mg BID [facility] Administration Clopidogrel Bisulfate 75 mg 02/09/17 10:00 02/12/17 10:15 Plavix - PO 75 mg DAILY [facility] Administration Glipizide 5 mg 02/09/17 07:00 02/13/17 06:24 Glucotrol Xl - PO 5 mg AM [facility] Administration Heparin Sodium (Porcine) 5,000 unit 02/09/17 22:00 02/12/17 22:15 Heparin - SQ 5,000 unit BID [facility] Administration Sodium Chloride 1,000 mls @ 83 mls/hr 02/13/17 11:00 1/2 Normal Saline IV ASDIR [facility] Insulin Aspart 1 vial 02/13/17 07:00 02/13/17 06:23 Novolog Vial Sliding Scale - SQ Not Given TIDAC [facility] Protocol Nystatin 1 applic 02/09/17 10:45 02/12/17 10:16 Nystop Powder - TP 1 applic DAILY [facility] Administration Oxycodone HCl 5 mg 02/11/17 13:22 02/13/17 07:57 Roxicodone - PO 5 mg Q4H PRN Administration PAIN LEVEL 1-5 Tamsulosin HCl 0.8 mg 02/11/17 08:30 02/13/17 08:42 Flomax - PO 0.8 mg DAILY@0830 [facility] Administration Tolnaftate 1 applic 02/09/17 10:45 02/12/17 22:20 Tinactin 1% Powder - TP 1 applic BID [facility] Administration Renal ultrasound: Limited examination. Very limited visualization of the right kidney. Partially exophytic left renal simple cyst, as described above without evidence of hydronephrosis or stones. Partially distended urinary bladder limiting its evaluation with a volume of 57 cc. Poor visualization of the prostate gland measuring 8.3 cc in volume. Patient could not void. Ureteral jets were not visualized. Patient is a 56 year old male with significant past medical history of Atrial fib, CAD s/p stents (on plavix), CVA with residual left sided weakness, IDDM, HTN, HLD, COPD, Anemia, peripheral neuropathy, arterial insuffiency s/p left femoral-tibial by pass in 2013) presented to the ED via EMS with the chief complaint of lower extremity weakness. As per the patient, he has been feeling weak, unable to bear weight and very painful while attempting to walk, hence came in to the ED for further evaluation. ASSESSMENT/PLAN: 1. Acute on chronic kidney injury 2. ATN with most likely RENATO 3. Hypertension 4. Hyperlipidemia 5. Diabetes Mellitus-Dx 10 years ago, hasn't had an eye exam. 6. COPD-not in exacerbation 7. Normocytic anemia 8. CAD 9. CVA with residual left sided weakness 10. Peripheral neuropathy 11. CHF-could be in exacerbation Acute on chronic kidney Injury- ATN with high suspicion of Contrast induced Nephropathy Due to patients PAD of the left lower extremity, CTA was done on 02/12/17 ( report pending). Patient had been well explained of the risks and benefits of CTA before the procedure. He verbalized understanding and had agreed to go forward with CTA. On Repeat BMP this am, his creatinine increased from 1.6--->2.3 (baseline creatinine 1.2-1.3 (01/20/17). He was given gentle hydration and mucomyst prior CTA. Due to the increase of creatinine > 25 % within 48 hours of contrast exposure , there is high suspicion of RENATO. Would hope creatinine to improve within 5-7 days. IV 1/2 NS @ 83mls/hr started today. CXR 02/13/17 shows some congestive changes as compared to prior CXR. Close monitoring for fluid overload. Will repeat BMP @ 5pm today and monitor creatinine closely. Bladder scan ordered. Avoid all nephrotoxic drugs. Proteinuria with microscopic hematuria UA-Protein +++ with 1+ blood SPEP pending, R/O causes causing proteinuria like MM Urinary symptoms- Improving Complained of Increased frequency, urgency, incontinence of urine Unlikely UTI- no evidence of UTI in UA, negative nitrite, no fever, no dysuria As per ultrasound, prostate size normal. Rest as per primary. Case discussed with Dr. Garcia. Dispo: We will continue to follow the patient. Thank you for this consultative opportunity. Visit type - Emergency Visit Emergency Visit: Yes ED Registration Date: 02/08/17 Care time: The patient presented to the Emergency Department on the above date and was hospitalized for further evaluation of their emergent condition. - New Patient This patient is new to me today: No - Critical Care Critical Care patient: No
[2017-02-13] MEDS: CLOPIDOGREL BISULFATE 75 MG TABLET (FP) PO SCH (11:53)
[2017-02-13] MEDS: NYSTATIN POWDER 100,000 UNITS/GM - 15 GM TOPICAL POWDER TP SCH (11:53)
[2017-02-13] MEDS: TOLNAFTATE 1% POWDER 45 GM POW TP SCH ×2 (11:53→21:18)
[2017-02-13] MEDS: CARVEDILOL 12.5 MG TABLET (FP) PO SCH ×2 (11:53→21:17)
[2017-02-13] MEDS: HEPARIN NA (PORCINE) 5,000 UNITS/ML 1ML VIAL SQ SCH ×2 (11:53→21:17)
[2017-02-13] MEDS: amLODIPine BESYLATE 5 MG TABLET (FP) PO SCH (11:53)
--- NOTE | 2017-02-13 15:42 | PN ---
Progress Note (short form) - Note Progress Note: Complains of leg pain. Exam unchanged CTA shows occluded right SFA stent, popliteal and tibial patent. I have explained findings to patient and offered either redo stenting or fem- pop bypass for a more durable result. He will discuss with his family and decide. Problem List - Problems (1) PAD (peripheral artery disease) Code(s): I73.9 - PERIPHERAL VASCULAR DISEASE, UNSPECIFIED
--- NOTE | 2017-02-13 17:59 | PN ---
Progress Note (short form) - Note Progress Note: Renal follow up for VANDA/CKD Pt seen and examined at the bedside continues to have pain in the leg Cr noted to have increased to 2.3 today Vital Signs Temperature 98.2 F 02/13/17 17:02 Pulse Rate 70 02/13/17 17:02 Respiratory Rate 18 02/13/17 17:02 Blood Pressure 112/66 02/13/17 17:02 O2 Sat by Pulse Oximetry (%) 95 02/13/17 09:00 Intake & Output 02/10/17 02/11/17 02/12/17 02/13/17 23:59 23:59 23:59 23:59 Intake Total 1600 1150 1120 Output Total 1600 2525 1450 400 Balance 0 -1375 -330 -400 NAD RRR, No M/R CTA, no rales soft NT 1+ edema in LE CBC, BMP 02/13/17 06:00 02/13/17 06:00 Current Medications Acetaminophen (Tylenol -) 650 mg PO Q6H PRN PRN Reason: FEVER OR PAIN Acetaminophen (Tylenol -) 325 mg PO Q4H PRN PRN Reason: PAIN LEVEL 1-5 Last Admin: 02/13/17 07:57 Dose: 325 mg Amlodipine Besylate (Norvasc -) 5 mg PO DAILY [facility] Last Admin: 02/13/17 11:53 Dose: 5 mg Carvedilol (Coreg -) 12.5 mg PO BID [facility] Last Admin: 02/13/17 11:53 Dose: 12.5 mg Clopidogrel Bisulfate (Plavix -) 75 mg PO DAILY [facility] Last Admin: 02/13/17 11:53 Dose: 75 mg Glipizide (Glucotrol Xl -) 5 mg PO AM [facility] Last Admin: 02/13/17 06:24 Dose: 5 mg Heparin Sodium (Porcine) (Heparin -) 5,000 unit SQ BID [facility] Last Admin: 02/13/17 11:53 Dose: 5,000 unit Sodium Chloride (1/2 Normal Saline) 1,000 mls @ 83 mls/hr IV ASDIR [facility] Last Admin: 02/13/17 11:56 Dose: 83 mls/hr Insulin Aspart (Novolog Vial Sliding Scale -) 1 vial SQ [facility]IDAC [facility] PRN Reason: Protocol Last Admin: 02/13/17 16:52 Dose: Not Given Nystatin (Nystop Powder -) 1 applic TP DAILY [facility] Last Admin: 02/13/17 11:53 Dose: 1 applic Oxycodone HCl (Roxicodone -) 5 mg PO Q4H PRN PRN Reason: PAIN LEVEL 1-5 Last Admin: 02/13/17 07:57 Dose: 5 mg Tamsulosin HCl (Flomax -) 0.8 mg PO DAILY@0830 [facility] Last Admin: 02/13/17 08:42 Dose: 0.8 mg Tolnaftate (Tinactin 1% Powder -) 1 applic TP BID [facility] Last Admin: 02/13/17 11:53 Dose: 1 applic 56 year old gentleman with PMhx of Atrial fib, CAD s/p stents (on plavix), CVA with residual left sided weakness, IDDM, HTN, HLD, COPD, Anemia who presented from home with compliant of frequent urination and sob and admitted with acute on CHF and BUN/Cr of 31/1.5 (baseline Cr 1.3) #VANDA in setting of contrast exposure Cr jameel to 2.3 s/p contrast exposure (1st exposure was on Monday) likely related to contrast nephropathy given timing of exposure. gentle IVF with close monitoring of respiratory status Trend BUN/Cr and electrolytes give Lasix PRN as needed for SOB Thank you Prakash Garcia DO
[2017-02-13 19:36] LABS: ANION GAP 6 (8-16); CALCIUM 7.6 mg/dL (8.5-10.1); CO2 27 mmol/L (21-32); CREATININE 2.3 mg/dL (0.7-1.3); GLUCOSE,RANDOM 132 mg/dL (74-106)
[2017-02-14 00:16] LABS: A/G RATIO 0.8 (0.7-1.7); ALBUMIN 2.4 g/dL (2.9-4.4); GLOBULIN, TOTAL 2.9 g/dL (2.2-3.9); M-SPIKE Not Observed g/dL (Not Observed); TOTAL PROTEIN 5.3 g/dL (6.0-8.5)
[2017-02-14] MEDS: INSULIN SLIDING SCALE (NOVOLOG) 1 VIAL SQ SCH ×3 (06:11→17:52)
[2017-02-14] MEDS: glipiZIDE-XL 5 MG TAB.ER.24 PO SCH (06:12)
[2017-02-14 08:35] LABS: BASOPHIL 0.6 % (0-2.0); EOSINOPHIL 3.1 % (0-4.5); MCH 32.1 pg (25.7-33.7); MCHC 33.9 g/dl (32.0-35.9); MEAN CELL VOLUME 94.5 fl (80-96); MEAN PLT VOLUME 8.9 fl (7.5-11.1); NEUTROPHILS 76.7 % (42.8-82.8); PLATELET COUNT 194 K/MM3 (134-434); RDW 13.7 % (11.9-15.9); WHITE BLOOD COUNT 7.2 K/mm3 (4.0-10.0)
[2017-02-14] MEDS: TAMSULOSIN HCL 0.4 MG CAP.ER.24H (FP) PO SCH (08:44)
[2017-02-14 08:54] LABS: ALBUMIN 2.4 g/dl (3.4-5.0); ALK PHOS 74 U/L (45-117); ANION GAP 7 (8-16); BILIRUBIN,TOTAL 0.4 mg/dL (0.2-1.0); CALCIUM 7.6 mg/dL (8.5-10.1); CO2 24 mmol/L (21-32); CREATININE 2.2 mg/dL (0.7-1.3); GLUCOSE,RANDOM 105 mg/dL (74-106); SGOT/AST 11 U/L (15-37); SGPT/ALT 15 U/L (12-78); TOT PROT 5.7 g/dl (6.4-8.2)
--- NOTE | 2017-02-14 09:13 | PN ---
Progress Note, Physician Chief Complaint: sx of PND and SOB overnight History of Present Illness: bump in creat noted, renal input reviewed - Current Medication List Current Medications: Active Medications Acetaminophen (Tylenol -) 650 mg PO Q6H PRN PRN Reason: FEVER OR PAIN Acetaminophen (Tylenol -) 325 mg PO Q4H PRN PRN Reason: PAIN LEVEL 1-5 Last Admin: 02/13/17 07:57 Dose: 325 mg Amlodipine Besylate (Norvasc -) 5 mg PO DAILY [facility] Last Admin: 02/13/17 11:53 Dose: 5 mg Carvedilol (Coreg -) 12.5 mg PO BID [facility] Last Admin: 02/13/17 21:17 Dose: 12.5 mg Clopidogrel Bisulfate (Plavix -) 75 mg PO DAILY [facility] Last Admin: 02/13/17 11:53 Dose: 75 mg Glipizide (Glucotrol Xl -) 5 mg PO AM [facility] Last Admin: 02/14/17 06:12 Dose: 5 mg Heparin Sodium (Porcine) (Heparin -) 5,000 unit SQ BID [facility] Last Admin: 02/13/17 21:17 Dose: 5,000 unit Insulin Aspart (Novolog Vial Sliding Scale -) 1 vial SQ TIDAC [facility] PRN Reason: Protocol Last Admin: 02/14/17 06:11 Dose: Not Given Nystatin (Nystop Powder -) 1 applic TP DAILY [facility] Last Admin: 02/13/17 11:53 Dose: 1 applic Oxycodone HCl (Roxicodone -) 5 mg PO Q4H PRN PRN Reason: PAIN LEVEL 1-5 Last Admin: 02/13/17 07:57 Dose: 5 mg Tamsulosin HCl (Flomax -) 0.8 mg PO DAILY@0830 [facility] Last Admin: 02/14/17 08:44 Dose: 0.8 mg Tolnaftate (Tinactin 1% Powder -) 1 applic TP BID [facility] Last Admin: 02/13/17 21:18 Dose: 1 applic - Objective Vital Signs: Vital Signs Temperature 99 F 02/14/17 06:35 Pulse Rate 98 H 02/14/17 06:35 Respiratory Rate 18 02/14/17 06:35 Blood Pressure 140/55 02/14/17 06:35 O2 Sat by Pulse Oximetry (%) 95 02/13/17 21:00 Constitutional: Yes: Calm Cardiovascular: Yes: Regular Rate and Rhythm Respiratory: Yes: Other (bibasilar rales) Gastrointestinal: Yes: Soft Edema: Yes Edema: LLE: 1+, RLE: 1+ Neurological: Yes: Alert, Oriented Labs: CBC, BMP 02/14/17 06:50 INR, PTT INR 1.23 (0.82-1.09) H 02/08/17 20:47 Assessment/Plan CKD Acute on chronic diastolic CHF PAD REC: 1. IV Lasix x 1 dose today, CXR 2. Daily BMP 3. Patient to decide re. proposed intervention occluded SFA
[2017-02-14 09:18] LABS: ANION GAP 8 (8-16); CALCIUM 7.5 mg/dL (8.5-10.1); CO2 23 mmol/L (21-32); CREATININE 2.2 mg/dL (0.7-1.3); GLUCOSE,RANDOM 105 mg/dL (74-106); MAGNESIUM 2.1 mg/dL (1.8-2.4); PHOSPHOROUS 3.7 mg/dL (2.5-4.9)
[2017-02-14] MEDS ORDERED: FUROSEMIDE 40 MG/4 ML INJECTABLE VIAL IVPUSH ONE (10:00)
[2017-02-14] MEDS: CARVEDILOL 12.5 MG TABLET (FP) PO SCH ×2 (10:22→21:16)
[2017-02-14] MEDS: amLODIPine BESYLATE 5 MG TABLET (FP) PO SCH (10:22)
[2017-02-14] MEDS: HEPARIN NA (PORCINE) 5,000 UNITS/ML 1ML VIAL SQ SCH ×2 (10:22→21:16)
[2017-02-14] MEDS: CLOPIDOGREL BISULFATE 75 MG TABLET (FP) PO SCH (10:22)
[2017-02-14] MEDS: TOLNAFTATE 1% POWDER 45 GM POW TP SCH ×2 (10:23→21:17)
[2017-02-14] MEDS: NYSTATIN POWDER 100,000 UNITS/GM - 15 GM TOPICAL POWDER TP SCH (10:23)
--- NOTE | 2017-02-14 11:17 | PN ---
Progress Note, Physician Chief Complaint: SOB this AM - Current Medication List Current Medications: Active Medications Acetaminophen (Tylenol -) 650 mg PO Q6H PRN PRN Reason: FEVER OR PAIN Acetaminophen (Tylenol -) 325 mg PO Q4H PRN PRN Reason: PAIN LEVEL 1-5 Last Admin: 02/13/17 07:57 Dose: 325 mg Amlodipine Besylate (Norvasc -) 5 mg PO DAILY [facility] Last Admin: 02/14/17 10:22 Dose: 5 mg Carvedilol (Coreg -) 12.5 mg PO BID [facility] Last Admin: 02/14/17 10:22 Dose: 12.5 mg Clopidogrel Bisulfate (Plavix -) 75 mg PO DAILY [facility] Last Admin: 02/14/17 10:22 Dose: 75 mg Glipizide (Glucotrol Xl -) 5 mg PO AM [facility] Last Admin: 02/14/17 06:12 Dose: 5 mg Heparin Sodium (Porcine) (Heparin -) 5,000 unit SQ BID [facility] Last Admin: 02/14/17 10:22 Dose: 5,000 unit Insulin Aspart (Novolog Vial Sliding Scale -) 1 vial SQ TIDAC [facility] PRN Reason: Protocol Last Admin: 02/14/17 06:11 Dose: Not Given Nystatin (Nystop Powder -) 1 applic TP DAILY [facility] Last Admin: 02/14/17 10:23 Dose: 1 applic Oxycodone HCl (Roxicodone -) 5 mg PO Q4H PRN PRN Reason: PAIN LEVEL 1-5 Last Admin: 02/13/17 07:57 Dose: 5 mg Tamsulosin HCl (Flomax -) 0.8 mg PO DAILY@0830 [facility] Last Admin: 02/14/17 08:44 Dose: 0.8 mg Tolnaftate (Tinactin 1% Powder -) 1 applic TP BID [facility] Last Admin: 02/14/17 10:23 Dose: 1 applic - Objective Vital Signs: Vital Signs Temperature 98.5 F 02/14/17 10:00 Pulse Rate 94 H 02/14/17 10:00 Respiratory Rate 20 02/14/17 10:00 Blood Pressure 118/46 02/14/17 10:00 O2 Sat by Pulse Oximetry (%) 95 02/13/17 21:00 Constitutional: Yes: No Distress Cardiovascular: Yes: Regular Rate and Rhythm Respiratory: Yes: Diminished, Rales Gastrointestinal: Yes: Normal Bowel Sounds, Soft, Abdomen, Obese. No: Tenderness Edema: Yes Labs: CBC, BMP 02/14/17 06:50 02/14/17 08:24 INR, PTT INR 1.23 (0.82-1.09) H 02/08/17 20:47 Problem List - Problems (1) ASHD (arteriosclerotic heart disease) Code(s): I25.10 - ATHSCL HEART DISEASE OF [place] CORONARY ARTERY W/O ANG PCTRS (2) CKD (chronic kidney disease) Code(s): N18.9 - CHRONIC KIDNEY DISEASE, UNSPECIFIED Qualifiers: Chronic kidney disease stage: unspecified stage Qualified Code(s): N18.9 - Chronic kidney disease, unspecified; N18.9 - Chronic kidney disease, unspecified (3) Diastolic CHF Code(s): I50.30 - UNSPECIFIED DIASTOLIC (CONGESTIVE) HEART FAILURE (4) PAD (peripheral artery disease) Code(s): I73.9 - PERIPHERAL VASCULAR DISEASE, UNSPECIFIED (5) Arterial insufficiency of lower extremity Code(s): I73.9 - PERIPHERAL VASCULAR DISEASE, UNSPECIFIED Assessment/Plan PLAN SFA occlusion-- awaiting pt decision about intervention Cardiology eval noted-- needs lasix Monitor BMP continue with meds DVT prophylaxis-- Heparin sc
--- NOTE | 2017-02-14 15:50 | PN ---
Progress Note (short form) - Note Progress Note: Renal follow up for VANDA/CKD Pt seen and examined at the bedside reports SOB and orthopnea overnight got IVF for a few hours yesterday got IV lasix this am making urine Vital Signs Temperature 98.7 F 02/14/17 15:33 Pulse Rate 90 02/14/17 15:33 Respiratory Rate 18 02/14/17 15:33 Blood Pressure 120/58 02/14/17 15:33 O2 Sat by Pulse Oximetry (%) 93 L 02/14/17 09:00 Intake & Output 02/11/17 02/12/17 02/13/17 02/14/17 23:59 23:59 23:59 23:59 Intake Total 1150 1120 498 870 Output Total 2525 7497 984 5758 Balance -1375 -330 -102 -330 NAD RRR, No M/R CTA, no rales soft NT 1+ edema in LE CBC, BMP 02/14/17 06:50 02/14/17 08:24 Current Medications Acetaminophen (Tylenol -) 650 mg PO Q6H PRN PRN Reason: FEVER OR PAIN Acetaminophen (Tylenol -) 325 mg PO Q4H PRN PRN Reason: PAIN LEVEL 1-5 Last Admin: 02/13/17 07:57 Dose: 325 mg Amlodipine Besylate (Norvasc -) 5 mg PO DAILY [facility] Last Admin: 02/14/17 10:22 Dose: 5 mg Carvedilol (Coreg -) 12.5 mg PO BID [facility] Last Admin: 02/14/17 10:22 Dose: 12.5 mg Clopidogrel Bisulfate (Plavix -) 75 mg PO DAILY [facility] Last Admin: 02/14/17 10:22 Dose: 75 mg Glipizide (Glucotrol Xl -) 5 mg PO AM [facility] Last Admin: 02/14/17 06:12 Dose: 5 mg Heparin Sodium (Porcine) (Heparin -) 5,000 unit SQ BID [facility] Last Admin: 02/14/17 10:22 Dose: 5,000 unit Insulin Aspart (Novolog Vial Sliding Scale -) 1 vial SQ TIDAC [facility] PRN Reason: Protocol Last Admin: 02/14/17 12:33 Dose: Not Given Nystatin (Nystop Powder -) 1 applic TP DAILY [facility] Last Admin: 02/14/17 10:23 Dose: 1 applic Tamsulosin HCl (Flomax -) 0.8 mg PO DAILY@0830 [facility] Last Admin: 02/14/17 08:44 Dose: 0.8 mg Tolnaftate (Tinactin 1% Powder -) 1 applic TP BID [facility] Last Admin: 02/14/17 10:23 Dose: 1 applic 56 year old gentleman with PMhx of Atrial fib, CAD s/p stents (on plavix), CVA with residual left sided weakness, IDDM, HTN, HLD, COPD, Anemia who presented from home with compliant of frequent urination and sob and admitted with acute on CHF and BUN/Cr of 31/1.5 (baseline Cr 1.3) #VANDA in setting of contrast exposure Cr stable at 2.2 today IVF discontinued b/c of SOB/HF supportive care would avoid further contrast exposure as pt in acute renal injury can do CO2 angiogram if vascular intervention is needed, discussed with vascular sx pain control w/o nsaids no MICHAEL/ARB at this time PRN lasix as needed for management of edema Thank you Prakash Garcia DO
[2017-02-14] MEDS ORDERED: INSULIN (NOVOLOG) ASPART 100 UNITS/ML 10ML VIAL ONE (17:49)
--- NOTE | 2017-02-14 18:44 | PN ---
Progress Note (short form) - Note Progress Note: Exam unchanged. I have scheduled angiogram for tomorrow to attempt to reopen occluded stent in right femoral artery. If not possible we may need to schedule fem-pop bypass. In light of renal impairment angio will be done with carbon dioxide. Problem List - Problems (1) PAD (peripheral artery disease) Code(s): I73.9 - PERIPHERAL VASCULAR DISEASE, UNSPECIFIED
[2017-02-15] MEDS ORDERED: INSULIN (NOVOLOG) ASPART 100 UNITS/ML 10ML VIAL ONE (07:02)
[2017-02-15] MEDS: INSULIN SLIDING SCALE (NOVOLOG) 1 VIAL SQ SCH ×3 (07:25→17:27)
[2017-02-15] MEDS ORDERED: HEPARIN NA (PORCINE) 5,000 UNITS/ML 1ML VIAL ONE ×3 (07:42→10:54)
[2017-02-15] MEDS ORDERED: LIDOCAINE HCL 1%, 10 MG/ML (20ML VIAL) ONE (07:42)
[2017-02-15] MEDS: CARVEDILOL 12.5 MG TABLET (FP) PO SCH ×3 (07:59→21:36)
[2017-02-15] MEDS: ASPIRIN 81 MG CHEWABLE TABLETS PO SCH ×3 (08:00→12:50)
[2017-02-15] MEDS: CLOPIDOGREL BISULFATE 75 MG TABLET (FP) PO SCH ×2 (08:00→09:23)
[2017-02-15] MEDS: amLODIPine BESYLATE 5 MG TABLET (FP) PO SCH ×2 (08:00→09:23)
[2017-02-15] MEDS: TAMSULOSIN HCL 0.4 MG CAP.ER.24H (FP) PO SCH (08:01)
[2017-02-15 08:12] LABS: ANION GAP 7 (8-16); CALCIUM 7.8 mg/dL (8.5-10.1); CO2 25 mmol/L (21-32); GLUCOSE,RANDOM 115 mg/dL (74-106)
[2017-02-15] MEDS ORDERED: MIDAZOLAM HCL 2 MG/2 ML SINGLE DOSE VIAL ONE (09:21)
[2017-02-15] MEDS: TOLNAFTATE 1% POWDER 45 GM POW TP SCH ×2 (09:24→21:39)
[2017-02-15] MEDS: NYSTATIN POWDER 100,000 UNITS/GM - 15 GM TOPICAL POWDER TP SCH (09:24)
--- NOTE | 2017-02-15 09:47 | PN ---
Progress Note, Physician Chief Complaint: labs pending CXR reviewed, small right effusion Feels less SOB after lasix yest - Current Medication List Current Medications: Active Medications Acetaminophen (Tylenol -) 650 mg PO Q6H PRN PRN Reason: FEVER OR PAIN Acetaminophen (Tylenol -) 325 mg PO Q4H PRN PRN Reason: PAIN LEVEL 1-5 Last Admin: 02/13/17 07:57 Dose: 325 mg Amlodipine Besylate (Norvasc -) 5 mg PO DAILY [facility] Last Admin: 02/15/17 09:23 Dose: Not Given Aspirin (Asa -) 81 mg PO DAILY [facility] Last Admin: 02/15/17 09:23 Dose: Not Given Carvedilol (Coreg -) 12.5 mg PO BID [facility] Last Admin: 02/15/17 09:23 Dose: Not Given Clopidogrel Bisulfate (Plavix -) 75 mg PO DAILY [facility] Last Admin: 02/15/17 09:23 Dose: Not Given Glipizide (Glucotrol Xl -) 5 mg PO AM [facility] Last Admin: 02/14/17 06:12 Dose: 5 mg Heparin Sodium (Porcine) (Heparin -) 5,000 unit SQ BID [facility] Last Admin: 02/14/17 21:16 Dose: Not Given Insulin Aspart (Novolog Vial Sliding Scale -) 1 vial SQ TIDAC [facility] PRN Reason: Protocol Last Admin: 02/15/17 07:25 Dose: Not Given Nystatin (Nystop Powder -) 1 applic TP DAILY [facility] Last Admin: 02/15/17 09:24 Dose: Not Given Tamsulosin HCl (Flomax -) 0.8 mg PO DAILY@0830 [facility] Last Admin: 02/15/17 08:01 Dose: Not Given Tolnaftate (Tinactin 1% Powder -) 1 applic TP BID [facility] Last Admin: 02/15/17 09:24 Dose: Not Given - Objective Vital Signs: Vital Signs Temperature 98 F 02/15/17 06:19 Pulse Rate 80 02/15/17 06:19 Respiratory Rate 20 02/15/17 06:19 Blood Pressure 132/56 02/15/17 06:19 O2 Sat by Pulse Oximetry (%) 98 02/14/17 21:00 Constitutional: Yes: No Distress Cardiovascular: Yes: Regular Rate and Rhythm Respiratory: Yes: Other (much improved, decreased breath sounds bases but rales improved) Gastrointestinal: Yes: Soft Edema: Yes Edema: LLE: 1+, RLE: 1+ Neurological: Yes: Alert Labs: CBC, BMP 02/14/17 06:50 INR, PTT INR 1.23 (0.82-1.09) H 02/08/17 20:47 Assessment/Plan Assessment/Plan Acute on chronic CKD Acute on chronic diastolic CHF PAD REC: Clinically improved after IV Lasix yesterday. Awaiting today's creatinine- if improved, would likely give additional dose of Lasix today. Should be fine to undergo CO2 angiogram tomorrow for severe LE PAD, symptomatic.
[2017-02-15] MEDS ORDERED: LIDOCAINE HCL 1%, 10 MG/ML (20ML VIAL) PNB ONE (09:52)
[2017-02-15] MEDS ORDERED: PROPOFOL 20 ML ONE ×2 (10:41)
--- NOTE | 2017-02-15 11:33 | OP ---
Operative Note - Note: Operative Date: 02/15/17 Pre-Operative Diagnosis: Ischemic right leg Operation: Angiogram right leg, 3rd order catheterization. 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 Total occlusion of right SFA. Reconstitution of popliteal artery above knee. Patent AT and Peroneal in calf. Post-Operative Diagnosis: Same as Pre-op Surgeon: Ze Humphrey Anesthesiologist/UNDERCAR SPECIALIST: Jeanie Akbar MD Anesthesia: Fractional
[2017-02-15] MEDS ORDERED: ACETAMINOPHEN 325 MG TABLET (FP) PO PRN (11:44)
--- NOTE | 2017-02-15 12:49 | PN ---
Progress Note, Physician Chief Complaint: for angiogram - Current Medication List Current Medications: Active Medications Acetaminophen (Tylenol -) 650 mg PO Q6H PRN PRN Reason: FEVER OR PAIN Acetaminophen (Tylenol -) 325 mg PO Q4H PRN PRN Reason: PAIN LEVEL 1-5 Amlodipine Besylate (Norvasc -) 5 mg PO DAILY [facility] Aspirin (Asa -) 81 mg PO DAILY [facility] Carvedilol (Coreg -) 12.5 mg PO BID [facility] Clopidogrel Bisulfate (Plavix -) 75 mg PO DAILY [facility] Glipizide (Glucotrol Xl -) 5 mg PO AM [facility] Heparin Sodium (Porcine) (Heparin -) 5,000 unit SQ BID [facility] Insulin Aspart (Novolog Vial Sliding Scale -) 1 vial SQ TIDAC [facility] PRN Reason: Protocol Nystatin (Nystop Powder -) 1 applic TP DAILY [facility] Tamsulosin HCl (Flomax -) 0.8 mg PO DAILY@0830 [facility] Tolnaftate (Tinactin 1% Powder -) 1 applic TP BID [facility] - Objective Vital Signs: Vital Signs Temperature 97.6 F 02/15/17 12:30 Pulse Rate 66 02/15/17 12:30 Respiratory Rate 15 02/15/17 12:30 Blood Pressure 104/78 02/15/17 12:30 O2 Sat by Pulse Oximetry (%) 98 02/15/17 12:15 Constitutional: Yes: No Distress Cardiovascular: Yes: Regular Rate and Rhythm Respiratory: Yes: Diminished Gastrointestinal: Yes: Normal Bowel Sounds, Soft, Abdomen, Obese. No: Distention, Tenderness Edema: Yes Edema: LLE: 2+ Labs: CBC, BMP 02/14/17 06:50 02/15/17 06:00 INR, PTT INR 1.23 (0.82-1.09) H 02/08/17 20:47 Problem List - Problems (1) ASHD (arteriosclerotic heart disease) Code(s): I25.10 - ATHSCL HEART DISEASE OF [place] CORONARY ARTERY W/O ANG PCTRS (2) CKD (chronic kidney disease) Code(s): N18.9 - CHRONIC KIDNEY DISEASE, UNSPECIFIED Qualifiers: Chronic kidney disease stage: unspecified stage Qualified Code(s): N18.9 - Chronic kidney disease, unspecified; N18.9 - Chronic kidney disease, unspecified (3) Diastolic CHF Code(s): I50.30 - UNSPECIFIED DIASTOLIC (CONGESTIVE) HEART FAILURE (4) PAD (peripheral artery disease) Code(s): I73.9 - PERIPHERAL VASCULAR DISEASE, UNSPECIFIED (5) Arterial insufficiency of lower extremity Code(s): I73.9 - PERIPHERAL VASCULAR DISEASE, UNSPECIFIED Assessment/Plan PLAN SFA occlusion-- awaiting angiogram monitor BUN/Creatinine keep NPO for procedure continue with meds DVT prophylaxis-- Heparin sc
--- NOTE | 2017-02-15 18:37 | PN ---
Progress Note (short form) - Note Progress Note: Renal follow up for VANDA/CKD Pt seen and examined at the bedside s/p angiogram no acute complaints Vital Signs Temperature 97.5 F L 02/15/17 12:50 Pulse Rate 70 02/15/17 12:50 Respiratory Rate 20 02/15/17 12:50 Blood Pressure 109/57 02/15/17 12:50 O2 Sat by Pulse Oximetry (%) 96 02/15/17 12:50 Intake & Output 02/12/17 02/13/17 02/14/17 02/15/17 23:59 23:59 23:59 23:59 Intake Total 1120 498 870 600 Output Total 6223 122 1500 Balance -330 -102 -330 600 NAD RRR, No M/R CTA, no rales soft NT 1+ edema in LE CBC, BMP 02/14/17 06:50 02/15/17 06:00 Current Medications Acetaminophen (Tylenol -) 650 mg PO Q6H PRN PRN Reason: FEVER OR PAIN Acetaminophen (Tylenol -) 325 mg PO Q4H PRN PRN Reason: PAIN LEVEL 1-5 Amlodipine Besylate (Norvasc -) 5 mg PO DAILY [facility] Aspirin (Asa -) 81 mg PO DAILY [facility] Carvedilol (Coreg -) 12.5 mg PO BID [facility] Clopidogrel Bisulfate (Plavix -) 75 mg PO DAILY [facility] Glipizide (Glucotrol Xl -) 5 mg PO AM [facility] Heparin Sodium (Porcine) (Heparin -) 5,000 unit SQ BID [facility] Insulin Aspart (Novolog Vial Sliding Scale -) 1 vial SQ TIDAC [facility] PRN Reason: Protocol Last Admin: 02/15/17 17:27 Dose: Not Given Nystatin (Nystop Powder -) 1 applic TP DAILY [facility] Tamsulosin HCl (Flomax -) 0.8 mg PO DAILY@0830 [facility] Tolnaftate (Tinactin 1% Powder -) 1 applic TP BID [facility] 56 year old gentleman with PMhx of Atrial fib, CAD s/p stents (on plavix), CVA with residual left sided weakness, IDDM, HTN, HLD, COPD, Anemia who presented from home with compliant of frequent urination and sob and admitted with acute on CHF and BUN/Cr of 31/1.5 (baseline Cr 1.3) #VANDA in setting of contrast exposure Cr improved to 2 today off IVF s/p CO2 angiogram today trend BUN/Cr supportive care avoid nephrotoxic meds PRN rd Thank you Prakash Garcia DO
[2017-02-15] MEDS: HEPARIN NA (PORCINE) 5,000 UNITS/ML 1ML VIAL SQ SCH (21:38)
--- NOTE | 2017-02-16 02:00 | OP ---
DATE OF OPERATION: 02/15/2017 SURGEON: Ze Humphrey MD PROCEDURE: Angiogram of the right lower extremity with a 3rd order catheterization, ultrasound-guided cannulation of the left femoral and right anterior tibial artery. PREOPERATIVE DIAGNOSIS: Ischemic right leg with rest pain. POSTOPERATIVE DIAGNOSIS: Ischemic right leg with rest pain. ANESTHESIA: Fractional. ANESTHESIOLOGIST: Jeanie Akbar MD OPERATIVE FINDINGS: The aorta and both iliac arteries were patent. There was stenosis of the proximal right external iliac artery of approximately 70%. The right common and deep femoral arteries were patent. There was total occlusion of the right superficial femoral artery at its origin and there was no reconstitution until the popliteal artery was reached above the knee. A stent in the distal superficial femoral artery was occluded. Anterior tibial and peroneal arteries appeared to be patent in the upper calf. OPERATIVE PROCEDURE: Following routine patient identification with site and side verification, intravenous sedation was established. Both groins were prepped with ChloraPrep. Using real-time duplex imaging the left common femoral artery was identified and found to be patent with pulsatile flow. Timeout was performed. Then, 1% Xylocaine was infiltrated over the artery and the artery was cannulated under direct ultrasound guidance with the micropuncture needle. A wire was passed proximally and the needle was exchanged for a 5-Colombian catheter. An angled wire was then advanced into the abdominal aorta and a 5-Colombian sheath exchanged into the vessel. An Omni Flush catheter was then advanced over the wire into the abdominal aorta. Due to the patient's renal insufficiency, carbon dioxide angiography was performed. There was an area of stenosis in the proximal external iliac artery of approximately 70%. The angled wire was then advanced through the catheter and into the right iliac artery and distally to the level of the femoral artery. A Glidecath was then exchanged over the wire and advanced to the right common femoral artery. Repeat CO2 angiogram of the right femoral artery was then obtained. A stiff wire was passed through the catheter and a 6-mm x 40-cm sheath was advanced over the wire into the right common femoral artery. The patient was systemically heparinized. Approximately 2 mL of dilute contrast was then used to obtain a roadmap image of the common femoral artery. The angled wire and catheter were then advanced into the origin of the superficial femoral artery in the subintimal plane. The wire and catheter were then advanced distally to the level of the stent. Attempts to enter the stent were unsuccessful as the wire continued to pass subintimally. The right calf was then exposed and the lateral aspect of the leg was prepped with ChloraPrep. Using ultrasound and x-ray guidance, a micropuncture needle was advanced into the anterior tibial artery and the wire was advanced proximally. The needle was removed and the inner cannula of the micropuncture catheter was advanced over the wire into the artery. Then, 1 mL of contrast was used to confirm placement in the anterior tibial artery. A V-18 wire was then advanced proximally to the level of the stent in the superficial femoral artery. A catheter was used for support. Multiple attempts to cross into the stent were unsuccessful. The procedure was then terminated by removing the wire and catheter from the leg and applying pressure until bleeding ceased. The sheath was pulled back over the aortic bifurcation into the left iliac artery and then the sheath was exchanged for a short 6-Colombian sheath. A MYNX device was used to seal the arteriotomy in the left groin. A sterile dressing was applied. The patient was taken to the recovery room in stable condition. Flash [id number]
[2017-02-16] MEDS: glipiZIDE-XL 5 MG TAB.ER.24 PO SCH (06:26)
[2017-02-16] MEDS: INSULIN SLIDING SCALE (NOVOLOG) 1 VIAL SQ SCH ×3 (06:27→17:55)
[2017-02-16] MEDS: TAMSULOSIN HCL 0.4 MG CAP.ER.24H (FP) PO SCH (08:37)
--- NOTE | 2017-02-16 08:59 | PN ---
Progress Note, Physician History of Present Illness: seen and examined today in nad. still c/o LE discomfort. intermittent sob. no overnight events. - Current Medication List Current Medications: Active Medications Acetaminophen (Tylenol -) 650 mg PO Q6H PRN PRN Reason: FEVER OR PAIN Acetaminophen (Tylenol -) 325 mg PO Q4H PRN PRN Reason: PAIN LEVEL 1-5 Amlodipine Besylate (Norvasc -) 5 mg PO DAILY [facility] Aspirin (Asa -) 81 mg PO DAILY [facility] Carvedilol (Coreg -) 12.5 mg PO BID [facility] Last Admin: 02/15/17 21:36 Dose: 12.5 mg Clopidogrel Bisulfate (Plavix -) 75 mg PO DAILY [facility] Glipizide (Glucotrol Xl -) 5 mg PO AM [facility] Last Admin: 02/16/17 06:26 Dose: 5 mg Heparin Sodium (Porcine) (Heparin -) 5,000 unit SQ BID [facility] Last Admin: 02/15/17 21:38 Dose: 5,000 unit Insulin Aspart (Novolog Vial Sliding Scale -) 1 vial SQ TIDAC [facility] PRN Reason: Protocol Last Admin: 02/16/17 06:27 Dose: Not Given Nystatin (Nystop Powder -) 1 applic TP DAILY [facility] Tamsulosin HCl (Flomax -) 0.8 mg PO DAILY@0830 [facility] Last Admin: 02/16/17 08:37 Dose: 0.8 mg Tolnaftate (Tinactin 1% Powder -) 1 applic TP BID [facility] Last Admin: 02/15/17 21:39 Dose: 1 applic - Objective Vital Signs: Vital Signs Temperature 97.9 F 02/16/17 06:57 Pulse Rate 86 02/16/17 06:57 Respiratory Rate 20 02/16/17 06:57 Blood Pressure 136/60 02/16/17 06:57 O2 Sat by Pulse Oximetry (%) 96 02/16/17 01:39 Constitutional: Yes: No Distress, Calm Eyes: Yes: Conjunctiva Clear, EOM Intact, PERRL HENT: Yes: Atraumatic, Normocephalic Neck: Yes: Supple, Trachea Midline Cardiovascular: Yes: Regular Rate and Rhythm, S1, S2. No: Bradycardia, Tachycardia, Pulse Irregular, Bruit, JVD, Gallop, Murmur, Rub, S3, S4, Varicosities Respiratory: Yes: Regular, Diminished, Rales. No: Rhonchi, SOB, Wheezes Gastrointestinal: Yes: Normal Bowel Sounds. No: Soft, Distention, Tenderness Musculoskeletal: Yes: Muscle Weakness Extremities: Yes: Cool Edema: Yes Edema: LLE: 1+, RLE: 2+ Peripheral Pulses WNL: No Neurological: Yes: Alert, Oriented Psychiatric: Yes: Alert, Oriented Labs: CBC, BMP 02/14/17 06:50 02/15/17 06:00 INR, PTT INR 1.23 (0.82-1.09) H 02/08/17 20:47 - ....Imaging Chest X-ray: Report Reviewed, Image Reviewed EKG: Report Reviewed, Image Reviewed Other: Report Reviewed, Image Reviewed Assessment/Plan Acute on chronic CKD Acute on chronic diastolic CHF PAD REC: Slightly more volume overloaded today on exam will dose IV Lasix today and re- evaluate tomorrow, will cont to dose prn at this point Vascular procedure reported noted, occluded R SFA, unable to be intervened on endovascularly Awaiting Dr. Craft reccs, presume considering bypass Pt is of significant risk of cardiac events with surgery given history of CAD, Carotid stenosis, PAD, however nuclear stress test was done 09/2016 that showed no ischemia and normal EF and echo showed normal LV systolic function and no sig valvular abnl Pt is currently in his optimal cardiac condition if surgery is considered and has no current absolute cardiac contraindications.
[2017-02-16 09:38] LABS: BASOPHIL 0.8 % (0-2.0); EOSINOPHIL 4.6 % (0-4.5); MCH 31.5 pg (25.7-33.7); MCHC 33.5 g/dl (32.0-35.9); MEAN CELL VOLUME 93.9 fl (80-96); MEAN PLT VOLUME 8.7 fl (7.5-11.1); NEUTROPHILS 74.3 % (42.8-82.8); PLATELET COUNT 211 K/MM3 (134-434); RDW 13.6 % (11.9-15.9); WHITE BLOOD COUNT 6.6 K/mm3 (4.0-10.0)
[2017-02-16 10:01] LABS: ANION GAP 7 (8-16); CALCIUM 7.9 mg/dL (8.5-10.1); CO2 24 mmol/L (21-32); CREATININE 1.9 mg/dL (0.7-1.3); GLUCOSE,RANDOM 140 mg/dL (74-106); MAGNESIUM 2.4 mg/dL (1.8-2.4); PHOSPHOROUS 3.8 mg/dL (2.5-4.9)
--- NOTE | 2017-02-16 10:53 | PN ---
Progress Note, Physician Chief Complaint: s/p angiogram yesterday was unsuccessful had felt SOB yesterday night walks slowly on walker does not appear to be SOB now - Current Medication List Current Medications: Active Medications Acetaminophen (Tylenol -) 650 mg PO Q6H PRN PRN Reason: FEVER OR PAIN Acetaminophen (Tylenol -) 325 mg PO Q4H PRN PRN Reason: PAIN LEVEL 1-5 Amlodipine Besylate (Norvasc -) 5 mg PO DAILY [facility] Aspirin (Asa -) 81 mg PO DAILY [facility] Carvedilol (Coreg -) 12.5 mg PO BID [facility] Last Admin: 02/15/17 21:36 Dose: 12.5 mg Clopidogrel Bisulfate (Plavix -) 75 mg PO DAILY [facility] Glipizide (Glucotrol Xl -) 5 mg PO AM [facility] Last Admin: 02/16/17 06:26 Dose: 5 mg Heparin Sodium (Porcine) (Heparin -) 5,000 unit SQ BID [facility] Last Admin: 02/15/17 21:38 Dose: 5,000 unit Insulin Aspart (Novolog Vial Sliding Scale -) 1 vial SQ TIDAC [facility] PRN Reason: Protocol Last Admin: 02/16/17 06:27 Dose: Not Given Nystatin (Nystop Powder -) 1 applic TP DAILY [facility] Tamsulosin HCl (Flomax -) 0.8 mg PO DAILY@0830 [facility] Last Admin: 02/16/17 08:37 Dose: 0.8 mg Tolnaftate (Tinactin 1% Powder -) 1 applic TP BID [facility] Last Admin: 02/15/17 21:39 Dose: 1 applic - Objective Vital Signs: Vital Signs Temperature 97.9 F 02/16/17 06:57 Pulse Rate 86 02/16/17 06:57 Respiratory Rate 20 02/16/17 06:57 Blood Pressure 136/60 02/16/17 06:57 O2 Sat by Pulse Oximetry (%) 96 02/16/17 01:39 Constitutional: Yes: No Distress Cardiovascular: Yes: Regular Rate and Rhythm Respiratory: Yes: Diminished, Rales (bases) Gastrointestinal: Yes: Normal Bowel Sounds, Soft, Abdomen, Obese. No: Tenderness Edema: Yes Edema: LLE: 2+ Labs: CBC, BMP 02/16/17 09:20 02/16/17 09:20 INR, PTT INR 1.23 (0.82-1.09) H 02/08/17 20:47 Problem List - Problems (1) ASHD (arteriosclerotic heart disease) Code(s): I25.10 - ATHSCL HEART DISEASE OF [id number] CORONARY ARTERY W/O ANG PCTRS (2) CKD (chronic kidney disease) Code(s): N18.9 - CHRONIC KIDNEY DISEASE, UNSPECIFIED Qualifiers: Qualified Code(s): N18.9 - Chronic kidney disease, unspecified; N18.9 - Chronic kidney disease, unspecified (3) Diastolic CHF Code(s): I50.30 - UNSPECIFIED DIASTOLIC (CONGESTIVE) HEART FAILURE (4) PAD (peripheral artery disease) Code(s): I73.9 - PERIPHERAL VASCULAR DISEASE, UNSPECIFIED (5) Arterial insufficiency of lower extremity Code(s): I73.9 - PERIPHERAL VASCULAR DISEASE, UNSPECIFIED Assessment/Plan PLAN SFA occlusion-- awaiting pt decision about intervention -- vascular Follow up needs lasix -- spoke with Dr Melendez Monitor BMP -- creatinine better continue with meds DVT prophylaxis-- Heparin sc
[2017-02-16] MEDS: NYSTATIN POWDER 100,000 UNITS/GM - 15 GM TOPICAL POWDER TP SCH (11:12)
[2017-02-16] MEDS: CARVEDILOL 12.5 MG TABLET (FP) PO SCH ×2 (11:13→22:37)
[2017-02-16] MEDS: ASPIRIN 81 MG CHEWABLE TABLETS PO SCH (11:13)
[2017-02-16] MEDS: CLOPIDOGREL BISULFATE 75 MG TABLET (FP) PO SCH (11:13)
[2017-02-16] MEDS: HEPARIN NA (PORCINE) 5,000 UNITS/ML 1ML VIAL SQ SCH ×2 (11:13→22:37)
[2017-02-16] MEDS: TOLNAFTATE 1% POWDER 45 GM POW TP SCH ×2 (11:13→22:37)
[2017-02-16] MEDS: amLODIPine BESYLATE 5 MG TABLET (FP) PO SCH (11:14)
--- NOTE | 2017-02-16 11:23 | PN ---
Progress Note (short form) - Note Progress Note: Anesthesia postop note 56 y/o M s/p MAC for LE angiogram, angioplasty POD#1, vss, aaox3, no complaints. No anesthesia complications.
[2017-02-16] MEDS ORDERED: FUROSEMIDE 40 MG/4 ML INJECTABLE VIAL IVPUSH ONE (11:45)
[2017-02-16] MEDS ORDERED: INSULIN (NOVOLOG) ASPART 100 UNITS/ML 10ML VIAL ONE (11:45)
--- NOTE | 2017-02-16 16:18 | PN ---
Progress Note (short form) - Note Progress Note: Renal follow up for VANDA/CKD Pt seen and examined at the bedside had sob last night improved s/p IV lasix no chest pain making urine Vital Signs Temperature 98.9 F 02/16/17 15:22 Pulse Rate 78 02/16/17 15:22 Respiratory Rate 18 02/16/17 15:22 Blood Pressure 134/65 02/16/17 10:00 O2 Sat by Pulse Oximetry (%) 96 02/16/17 01:39 Intake & Output 02/13/17 02/14/17 02/15/17 02/16/17 23:59 23:59 23:59 23:59 Intake Total 849 869 9203 1050 Output Total 600 1200 800 Balance -102 -330 1100 250 NAD RRR, No M/R CTA, no rales soft NT 1+ edema in LE CBC, BMP 02/16/17 09:20 02/16/17 09:20 Current Medications Acetaminophen (Tylenol -) 650 mg PO Q6H PRN PRN Reason: FEVER OR PAIN Acetaminophen (Tylenol -) 325 mg PO Q4H PRN PRN Reason: PAIN LEVEL 1-5 Albuterol Sulfate (Ventolin 0.083% Nebulizer Soln -) 1 amp NEB Q4H PRN PRN Reason: SHORT OF BREATH/WHEEZING Amlodipine Besylate (Norvasc -) 5 mg PO DAILY [facility] Last Admin: 02/16/17 11:14 Dose: 5 mg Aspirin (Asa -) 81 mg PO DAILY [facility] Last Admin: 02/16/17 11:13 Dose: 81 mg Carvedilol (Coreg -) 12.5 mg PO BID [facility] Last Admin: 02/16/17 11:13 Dose: 12.5 mg Clopidogrel Bisulfate (Plavix -) 75 mg PO DAILY [facility] Last Admin: 02/16/17 11:13 Dose: 75 mg Glipizide (Glucotrol Xl -) 5 mg PO AM [facility] Last Admin: 02/16/17 06:26 Dose: 5 mg Heparin Sodium (Porcine) (Heparin -) 5,000 unit SQ BID [facility] Last Admin: 02/16/17 11:13 Dose: 5,000 unit Insulin Aspart (Novolog Vial Sliding Scale -) 1 vial SQ TIDAC [facility] PRN Reason: Protocol Last Admin: 02/16/17 11:48 Dose: 2 unit Nystatin (Nystop Powder -) 1 applic TP DAILY [facility] Last Admin: 02/16/17 11:12 Dose: 1 applic Tamsulosin HCl (Flomax -) 0.8 mg PO DAILY@0830 [facility] Last Admin: 02/16/17 08:37 Dose: 0.8 mg Tolnaftate (Tinactin 1% Powder -) 1 applic TP BID [facility] Last Admin: 02/16/17 11:13 Dose: 1 applic 56 year old gentleman with PMhx of Atrial fib, CAD s/p stents (on plavix), CVA with residual left sided weakness, IDDM, HTN, HLD, COPD, Anemia who presented from home with compliant of frequent urination and sob and admitted with acute on CHF and BUN/Cr of 31/1.5 (baseline Cr 1.3) #VANDA in setting of contrast exposure renal function stable/slowly improving pt is non-oliguirc supportive care trend BUN/Cr defer any MICHAEL/ARB/IV contrast for now continue PRN lasix for management of SOB Thank you Prakash Garcia DO
[2017-02-16] MEDS: ALBUTEROL SO4 0.083% IH SOL 2.5 MG/3 ML VIAL.NEB. NEB PRN (16:28)
[2017-02-17] MEDS: INSULIN SLIDING SCALE (NOVOLOG) 1 VIAL SQ SCH ×3 (06:46→17:36)
[2017-02-17] MEDS: glipiZIDE-XL 5 MG TAB.ER.24 PO SCH (06:46)
--- NOTE | 2017-02-17 08:39 | PN ---
Progress Note, Physician History of Present Illness: seen and examined today in [facility]. states he is feeling the same as yesterday. states he did urinate a lot after Lasix yesterday. - Current Medication List Current Medications: Active Medications Acetaminophen (Tylenol -) 650 mg PO Q6H PRN PRN Reason: FEVER OR PAIN Acetaminophen (Tylenol -) 325 mg PO Q4H PRN PRN Reason: PAIN LEVEL 1-5 Albuterol Sulfate (Ventolin 0.083% Nebulizer Soln -) 1 amp NEB Q4H PRN PRN Reason: SHORT OF BREATH/WHEEZING Last Admin: 02/16/17 16:28 Dose: 1 amp Amlodipine Besylate (Norvasc -) 5 mg PO DAILY [facility] Last Admin: 02/16/17 11:14 Dose: 5 mg Aspirin (Asa -) 81 mg PO DAILY [facility] Last Admin: 02/16/17 11:13 Dose: 81 mg Carvedilol (Coreg -) 12.5 mg PO BID [facility] Last Admin: 02/16/17 22:37 Dose: 12.5 mg Clopidogrel Bisulfate (Plavix -) 75 mg PO DAILY [facility] Last Admin: 02/16/17 11:13 Dose: 75 mg Glipizide (Glucotrol Xl -) 5 mg PO AM [facility] Last Admin: 02/17/17 06:46 Dose: 5 mg Heparin Sodium (Porcine) (Heparin -) 5,000 unit SQ BID [facility] Last Admin: 02/16/17 22:37 Dose: 5,000 unit Insulin Aspart (Novolog Vial Sliding Scale -) 1 vial SQ TIDAC [facility] PRN Reason: Protocol Last Admin: 02/17/17 06:46 Dose: Not Given Nystatin (Nystop Powder -) 1 applic TP DAILY [facility] Last Admin: 02/16/17 11:12 Dose: 1 applic Tamsulosin HCl (Flomax -) 0.8 mg PO DAILY@0830 [facility] Last Admin: 02/16/17 08:37 Dose: 0.8 mg Tolnaftate (Tinactin 1% Powder -) 1 applic TP BID [facility] Last Admin: 02/16/17 22:37 Dose: 1 applic - Objective Vital Signs: Vital Signs Temperature 98.9 F 02/16/17 22:00 Pulse Rate 86 02/16/17 22:00 Respiratory Rate 20 02/16/17 22:00 Blood Pressure 141/56 02/16/17 22:00 O2 Sat by Pulse Oximetry (%) 98 02/16/17 21:00 Constitutional: Yes: No Distress, Calm Eyes: Yes: Conjunctiva Clear, EOM Intact HENT: Yes: Atraumatic, Normocephalic Cardiovascular: Yes: Regular Rate and Rhythm, S1, S2. No: Bradycardia, Tachycardia Respiratory: Yes: Regular, Diminished Gastrointestinal: Yes: Normal Bowel Sounds, Soft Edema: Yes Peripheral Pulses WNL: No Neurological: Yes: Alert, Oriented Psychiatric: Yes: Alert, Oriented Labs: CBC, BMP 02/16/17 09:20 INR, PTT INR 1.23 (0.82-1.09) H 02/08/17 20:47 - ....Imaging Chest X-ray: Report Reviewed, Image Reviewed EKG: Report Reviewed, Image Reviewed Other: Report Reviewed, Image Reviewed Assessment/Plan Acute on chronic CKD Acute on chronic diastolic CHF PAD REC: Given extra dose of IV Lasix yesterday, pt reports urinating a lot more yesterday, Bun/creat trended up today. Will hold off on additional Lasix today. Awaiting Dr. Craft reccs, presume considering bypass Preop cardiac reccs as per my note yesterday. If surgery planned need to decide if ASA and Plavix should be held
--- NOTE | 2017-02-17 08:45 | PN ---
Progress Note (short form) - Note Progress Note: Pt seen/examined feels ok all f//u noted Vital Signs Temp 98.9 F 02/16/17 22:00 Pulse 86 02/16/17 22:00 Resp 20 02/16/17 22:00 BP 141/56 02/16/17 22:00 Pulse Ox 98 02/16/17 21:00 Intake & Output 02/16/17 02/16/17 02/17/17 11:59 23:59 11:59 Intake Total 200 850 200 Output Total 1200 Balance 200 -350 200 Intake: Oral 200 850 200 Output: Urine 1200 Void 1200 Other: Voiding Method Urinal Urinal # Unmeasured Voids Void 1 Bowel Movement Yes Yes Yes # Bowel Movements 1 2 Active Medications Acetaminophen (Tylenol -) 650 mg PO Q6H PRN PRN Reason: FEVER OR PAIN Acetaminophen (Tylenol -) 325 mg PO Q4H PRN PRN Reason: PAIN LEVEL 1-5 Albuterol Sulfate (Ventolin 0.083% Nebulizer Soln -) 1 amp NEB Q4H PRN PRN Reason: SHORT OF BREATH/WHEEZING Last Admin: 02/16/17 16:28 Dose: 1 amp Amlodipine Besylate (Norvasc -) 5 mg PO DAILY [facility] Last Admin: 02/16/17 11:14 Dose: 5 mg Aspirin (Asa -) 81 mg PO DAILY [facility] Last Admin: 02/16/17 11:13 Dose: 81 mg Carvedilol (Coreg -) 12.5 mg PO BID [facility] Last Admin: 02/16/17 22:37 Dose: 12.5 mg Clopidogrel Bisulfate (Plavix -) 75 mg PO DAILY [facility] Last Admin: 02/16/17 11:13 Dose: 75 mg Glipizide (Glucotrol Xl -) 5 mg PO AM [facility] Last Admin: 02/17/17 06:46 Dose: 5 mg Heparin Sodium (Porcine) (Heparin -) 5,000 unit SQ BID [facility] Last Admin: 02/16/17 22:37 Dose: 5,000 unit Insulin Aspart (Novolog Vial Sliding Scale -) 1 vial SQ TIDAC [facility] PRN Reason: Protocol Last Admin: 02/17/17 06:46 Dose: Not Given Nystatin (Nystop Powder -) 1 applic TP DAILY [facility] Last Admin: 02/16/17 11:12 Dose: 1 applic Tamsulosin HCl (Flomax -) 0.8 mg PO DAILY@0830 [facility] Last Admin: 02/16/17 08:37 Dose: 0.8 mg Tolnaftate (Tinactin 1% Powder -) 1 applic TP BID [facility] Last Admin: 02/16/17 22:37 Dose: 1 applic CBC, BMP 02/16/17 09:20 cmp - pending Physical exam Constitutional: Yes: No Distress- comfortable Cardiovascular: Yes: Regular Rate and Rhythm Respiratory: Yes: Diminished at bases Gastrointestinal: Yes: Normal Bowel Sounds, Soft, Abdomen, Obese. No: Tenderness Edema: Yes Problem List - Problems (1) ASHD (arteriosclerotic heart disease) Code(s): I25.10 - ATHSCL HEART DISEASE OF [place] CORONARY ARTERY W/O ANG PCTRS (2) CKD (chronic kidney disease) Code(s): N18.9 - CHRONIC KIDNEY DISEASE, UNSPECIFIED Qualifiers: Chronic kidney disease stage: unspecified stage Qualified Code(s): N18.9 - Chronic kidney disease, unspecified; N18.9 - Chronic kidney disease, unspecified (3) Diastolic CHF Code(s): I50.30 - UNSPECIFIED DIASTOLIC (CONGESTIVE) HEART FAILURE (4) PAD (peripheral artery disease) Code(s): I73.9 - PERIPHERAL VASCULAR DISEASE, UNSPECIFIED (5) Arterial insufficiency of lower extremity Code(s): I73.9 - PERIPHERAL VASCULAR DISEASE, UNSPECIFIED Assessment/Plan SFA occlusion-- awaiting ? bypass vascular to follow f//u labs continue other meds pain control will follow
[2017-02-17 08:50] LABS: ANION GAP 9 (8-16); CALCIUM 7.9 mg/dL (8.5-10.1); CO2 22 mmol/L (21-32); GLUCOSE,RANDOM 83 mg/dL (74-106)
[2017-02-17] MEDS ORDERED: PT OWN MED DRAWER 7, Y5N ONE (10:09)
[2017-02-17] MEDS: TAMSULOSIN HCL 0.4 MG CAP.ER.24H (FP) PO SCH (10:26)
[2017-02-17] MEDS: HEPARIN NA (PORCINE) 5,000 UNITS/ML 1ML VIAL SQ SCH ×2 (10:26→22:45)
[2017-02-17] MEDS: CARVEDILOL 12.5 MG TABLET (FP) PO SCH ×2 (10:26→22:45)
[2017-02-17] MEDS: CLOPIDOGREL BISULFATE 75 MG TABLET (FP) PO SCH (10:26)
[2017-02-17] MEDS: amLODIPine BESYLATE 5 MG TABLET (FP) PO SCH (10:26)
[2017-02-17] MEDS: ASPIRIN 81 MG CHEWABLE TABLETS PO SCH (10:26)
[2017-02-17] MEDS: TOLNAFTATE 1% POWDER 45 GM POW TP SCH ×2 (10:27→22:45)
[2017-02-17] MEDS: NYSTATIN POWDER 100,000 UNITS/GM - 15 GM TOPICAL POWDER TP SCH (10:27)
[2017-02-17] MEDS: ALBUTEROL SO4 0.083% IH SOL 2.5 MG/3 ML VIAL.NEB. NEB PRN (10:57)
--- NOTE | 2017-02-17 15:58 | PN ---
Progress Note (short form) - Note Progress Note: Renal follow up for VANDA/CKD Pt seen and examined at the bedside awake and alert has some sob no chest pain, abd pain has pain in right LE Vital Signs Temperature 98.2 F 02/17/17 14:46 Pulse Rate 99 H 02/17/17 14:46 Respiratory Rate 18 02/17/17 14:46 Blood Pressure 124/62 02/17/17 14:46 O2 Sat by Pulse Oximetry (%) 98 02/16/17 21:00 Intake & Output 02/14/17 02/15/17 02/16/17 02/17/17 23:59 23:59 23:59 23:59 Intake Total 870 1100 1050 550 Output Total 1200 1200 600 Balance -330 1100 -150 -50 NAD RRR, No M/R CTA, no rales soft NT 1+ edema in LE CBC, BMP 02/16/17 09:20 02/17/17 06:00 Current Medications Acetaminophen (Tylenol -) 650 mg PO Q6H PRN PRN Reason: FEVER OR PAIN Acetaminophen (Tylenol -) 325 mg PO Q4H PRN PRN Reason: PAIN LEVEL 1-5 Albuterol Sulfate (Ventolin 0.083% Nebulizer Soln -) 1 amp NEB Q4H PRN PRN Reason: SHORT OF BREATH/WHEEZING Last Admin: 02/17/17 10:57 Dose: 1 amp Amlodipine Besylate (Norvasc -) 5 mg PO DAILY [facility] Last Admin: 02/17/17 10:26 Dose: 5 mg Aspirin (Asa -) 81 mg PO DAILY [facility] Last Admin: 02/17/17 10:26 Dose: 81 mg Carvedilol (Coreg -) 12.5 mg PO BID [facility] Last Admin: 02/17/17 10:26 Dose: 12.5 mg Clopidogrel Bisulfate (Plavix -) 75 mg PO DAILY [facility] Last Admin: 02/17/17 10:26 Dose: 75 mg Glipizide (Glucotrol Xl -) 5 mg PO AM [facility] Last Admin: 02/17/17 06:46 Dose: 5 mg Heparin Sodium (Porcine) (Heparin -) 5,000 unit SQ BID [facility] Last Admin: 02/17/17 10:26 Dose: 5,000 unit Insulin Aspart (Novolog Vial Sliding Scale -) 1 vial SQ TIDAC [facility] PRN Reason: Protocol Last Admin: 02/17/17 13:14 Dose: Not Given Nystatin (Nystop Powder -) 1 applic TP DAILY [facility] Last Admin: 02/17/17 10:27 Dose: 1 applic Tamsulosin HCl (Flomax -) 0.8 mg PO DAILY@0830 [facility] Last Admin: 02/17/17 10:26 Dose: 0.8 mg Tolnaftate (Tinactin 1% Powder -) 1 applic TP BID [facility] Last Admin: 02/17/17 10:27 Dose: 1 applic 56 year old gentleman with PMhx of Atrial fib, CAD s/p stents (on plavix), CVA with residual left sided weakness, IDDM, HTN, HLD, COPD, Anemia who presented from home with compliant of frequent urination and sob and admitted with acute on CHF and BUN/Cr of 31/1.5 (baseline Cr 1.3) #VANDA in setting of contrast exposure renal function stable, Cr with slight uptrend today expect that renal function should improve as he gets further away from contrast exposure consider starting oral Lasix dialy 40mg for management of edema Trend BUN/Cr dialy avoid further IV contrast exposure Thank you Prakash Garcia DO
[2017-02-17] MEDS: ACETAMINOPHEN 325 MG TABLET (FP) PO PRN (17:35)
[2017-02-18] MEDS: INSULIN SLIDING SCALE (NOVOLOG) 1 VIAL SQ SCH ×3 (06:02→18:13)
[2017-02-18] MEDS: glipiZIDE-XL 5 MG TAB.ER.24 PO SCH (06:20)
[2017-02-18] MEDS: TAMSULOSIN HCL 0.4 MG CAP.ER.24H (FP) PO SCH (08:42)
[2017-02-18 08:54] LABS: BASOPHIL 1.1 % (0-2.0); EOSINOPHIL 4.9 % (0-4.5); MCH 31.4 pg (25.7-33.7); MEAN CELL VOLUME 95.1 fl (80-96); NEUTROPHILS 64.3 % (42.8-82.8); PLATELET COUNT 197 K/MM3 (134-434); RDW 13.6 % (11.9-15.9); WHITE BLOOD COUNT 5.5 K/mm3 (4.0-10.0)
[2017-02-18 08:59] LABS: ANION GAP 7 (8-16); CALCIUM 7.9 mg/dL (8.5-10.1); CO2 25 mmol/L (21-32); CREATININE 1.8 mg/dL (0.7-1.3); GLUCOSE,RANDOM 85 mg/dL (74-106); MAGNESIUM 2.5 mg/dL (1.8-2.4)
--- NOTE | 2017-02-18 10:25 | PN ---
Progress Note, Physician Chief Complaint: no distress no dark stools no chest pain , dizziness was not SOB - Current Medication List Current Medications: Active Medications Acetaminophen (Tylenol -) 650 mg PO Q6H PRN PRN Reason: FEVER OR PAIN Last Admin: 02/17/17 17:35 Dose: 650 mg Acetaminophen (Tylenol -) 325 mg PO Q4H PRN PRN Reason: PAIN LEVEL 1-5 Albuterol Sulfate (Ventolin 0.083% Nebulizer Soln -) 1 amp NEB Q4H PRN PRN Reason: SHORT OF BREATH/WHEEZING Last Admin: 02/17/17 10:57 Dose: 1 amp Amlodipine Besylate (Norvasc -) 5 mg PO DAILY [facility] Last Admin: 02/17/17 10:26 Dose: 5 mg Aspirin (Asa -) 81 mg PO DAILY [facility] Last Admin: 02/17/17 10:26 Dose: 81 mg Carvedilol (Coreg -) 12.5 mg PO BID [facility] Last Admin: 02/17/17 22:45 Dose: 12.5 mg Clopidogrel Bisulfate (Plavix -) 75 mg PO DAILY [facility] Last Admin: 02/17/17 10:26 Dose: 75 mg Glipizide (Glucotrol Xl -) 5 mg PO AM [facility] Last Admin: 02/18/17 06:20 Dose: 5 mg Heparin Sodium (Porcine) (Heparin -) 5,000 unit SQ BID [facility] Last Admin: 02/17/17 22:45 Dose: 5,000 unit Insulin Aspart (Novolog Vial Sliding Scale -) 1 vial SQ TIDAC [facility] PRN Reason: Protocol Last Admin: 02/18/17 06:02 Dose: Not Given Nystatin (Nystop Powder -) 1 applic TP DAILY [facility] Last Admin: 02/17/17 10:27 Dose: 1 applic Tamsulosin HCl (Flomax -) 0.8 mg PO DAILY@0830 [facility] Last Admin: 02/18/17 08:42 Dose: 0.8 mg Tolnaftate (Tinactin 1% Powder -) 1 applic TP BID [facility] Last Admin: 02/17/17 22:45 Dose: 1 applic - Objective Vital Signs: Vital Signs Temperature 98.2 F 02/18/17 07:33 Pulse Rate 81 02/18/17 07:33 Respiratory Rate 17 02/18/17 07:33 Blood Pressure 107/49 02/18/17 07:33 O2 Sat by Pulse Oximetry (%) 95 02/17/17 21:00 Constitutional: Yes: No Distress Cardiovascular: Yes: Regular Rate and Rhythm Respiratory: Yes: Diminished Gastrointestinal: Yes: Normal Bowel Sounds, Soft, Abdomen, Obese. No: Tenderness Edema: Yes Labs: CBC, BMP 02/18/17 06:00 02/18/17 06:00 INR, PTT INR 1.23 (0.82-1.09) H 02/08/17 20:47 Problem List - Problems (1) ASHD (arteriosclerotic heart disease) Code(s): I25.10 - ATHSCL HEART DISEASE OF [place] CORONARY ARTERY W/O ANG PCTRS (2) CKD (chronic kidney disease) Code(s): N18.9 - CHRONIC KIDNEY DISEASE, UNSPECIFIED Qualifiers: Chronic kidney disease stage: unspecified stage Qualified Code(s): N18.9 - Chronic kidney disease, unspecified; N18.9 - Chronic kidney disease, unspecified (3) Diastolic CHF Code(s): I50.30 - UNSPECIFIED DIASTOLIC (CONGESTIVE) HEART FAILURE (4) PAD (peripheral artery disease) Code(s): I73.9 - PERIPHERAL VASCULAR DISEASE, UNSPECIFIED (5) Arterial insufficiency of lower extremity Code(s): I73.9 - PERIPHERAL VASCULAR DISEASE, UNSPECIFIED Assessment/Plan PLAN SFA occlusion-- awaiting ? bypass monitor BUN/Creatinine- improving unsure if drop in HCT true- will repeat, if low, then will transfuse PRBC- pt agrees continue with meds DVT prophylaxis-- Heparin sc
[2017-02-18 11:22] LABS: MCH 31.1 pg (25.7-33.7); MCHC 33.2 g/dl (32.0-35.9); MEAN CELL VOLUME 93.9 fl (80-96); MEAN PLT VOLUME 8.1 fl (7.5-11.1); PLATELET COUNT 188 K/MM3 (134-434); RDW 13.7 % (11.9-15.9)
[2017-02-18] MEDS: CARVEDILOL 12.5 MG TABLET (FP) PO SCH ×2 (11:45→22:44)
[2017-02-18] MEDS: ASPIRIN 81 MG CHEWABLE TABLETS PO SCH (11:45)
[2017-02-18] MEDS: HEPARIN NA (PORCINE) 5,000 UNITS/ML 1ML VIAL SQ SCH ×2 (11:46→22:44)
[2017-02-18] MEDS: ACETAMINOPHEN 325 MG TABLET (FP) PO PRN (11:46)
[2017-02-18] MEDS: amLODIPine BESYLATE 5 MG TABLET (FP) PO SCH (11:46)
[2017-02-18] MEDS: CLOPIDOGREL BISULFATE 75 MG TABLET (FP) PO SCH (11:46)
[2017-02-18] MEDS: NYSTATIN POWDER 100,000 UNITS/GM - 15 GM TOPICAL POWDER TP SCH (11:47)
[2017-02-18] MEDS: TOLNAFTATE 1% POWDER 45 GM POW TP SCH ×2 (11:47→22:46)
--- NOTE | 2017-02-18 11:59 | PN ---
Progress Note, Physician Chief Complaint: Pt Alert; +PND for the past few nights. History of Present Illness: 56 yr old white male, with significant past medical history of Afib, CAD s/p stents (on plavix), CVA with residual left sided weakness, IDDM, HTN, HLD, who presents to the emergency room BIBA for bilateral lower extremity swelling, chest discomfort, and SOB. Even though he is SOB, he states that he is ambulatory with a walker. The patient was recently admitted for left lower extremity cellulitis on 01/19/17 and discharged on 01/24/17 with a prescription for Lasix. Denies fever, chills, nausea, vomiting. Denies sick contact. Denies recent travel. Denies cough. - Current Medication List Current Medications: Active Medications Acetaminophen (Tylenol -) 650 mg PO Q6H PRN PRN Reason: FEVER OR PAIN Last Admin: 02/18/17 11:46 Dose: 650 mg Acetaminophen (Tylenol -) 325 mg PO Q4H PRN PRN Reason: PAIN LEVEL 1-5 Albuterol Sulfate (Ventolin 0.083% Nebulizer Soln -) 1 amp NEB Q4H PRN PRN Reason: SHORT OF BREATH/WHEEZING Last Admin: 02/17/17 10:57 Dose: 1 amp Amlodipine Besylate (Norvasc -) 5 mg PO DAILY [facility] Last Admin: 02/18/17 11:46 Dose: 5 mg Aspirin (Asa -) 81 mg PO DAILY [facility] Last Admin: 02/18/17 11:45 Dose: 81 mg Carvedilol (Coreg -) 12.5 mg PO BID [facility] Last Admin: 02/18/17 11:45 Dose: 12.5 mg Clopidogrel Bisulfate (Plavix -) 75 mg PO DAILY [facility] Last Admin: 02/18/17 11:46 Dose: 75 mg Glipizide (Glucotrol Xl -) 5 mg PO AM [facility] Last Admin: 02/18/17 06:20 Dose: 5 mg Heparin Sodium (Porcine) (Heparin -) 5,000 unit SQ BID [facility] Last Admin: 02/18/17 11:46 Dose: 5,000 unit Insulin Aspart (Novolog Vial Sliding Scale -) 1 vial SQ TIDAC [facility] PRN Reason: Protocol Last Admin: 02/18/17 06:02 Dose: Not Given Nystatin (Nystop Powder -) 1 applic TP DAILY [facility] Last Admin: 10/21/17 11:47 Dose: 1 applic Tamsulosin HCl (Flomax -) 0.8 mg PO DAILY@0830 [facility] Last Admin: 02/18/17 08:42 Dose: 0.8 mg Tolnaftate (Tinactin 1% Powder -) 1 applic TP BID [facility] Last Admin: 02/18/17 11:47 Dose: 1 applic - Objective Vital Signs: Vital Signs Temperature 98.2 F 02/18/17 07:33 Pulse Rate 81 02/18/17 07:33 Respiratory Rate 17 02/18/17 07:33 Blood Pressure 107/49 02/18/17 07:33 O2 Sat by Pulse Oximetry (%) 95 02/17/17 21:00 Constitutional: Yes: Calm Eyes: Yes: WNL HENT: Yes: WNL Neck: Yes: WNL Cardiovascular: Yes: S1, S2 (split) Respiratory: Yes: Diminished (left base), Rales, SOB Gastrointestinal: Yes: Soft ...Rectal Exam: Yes: Deferred Genitourinary: No: Anuria Musculoskeletal: Yes: Muscle Weakness Extremities: Yes: Cool Edema: Yes Edema: LLE: 1+, RLE: 1+ Peripheral Pulses WNL: No Peripheral Pulses: Left Doralis Pedis: 1+, Right Dorsalis Pedis: 1+ Integumentary: Yes: Pressure Ulcer Wound/Incision: Yes: Dressing Dry and Intact Psychiatric: Yes: Other (alcoholism) Labs: CBC, BMP 02/18/17 11:10 02/18/17 06:00 INR, PTT INR 1.23 (0.82-1.09) H 02/08/17 20:47 Problem List - Problems (1) ASHD (arteriosclerotic heart disease) Code(s): I25.10 - ATHSCL HEART DISEASE OF [place] CORONARY ARTERY W/O ANG PCTRS (2) Arterial insufficiency of lower extremity Assessment/Plan: Planned for surgery (bypass) for occluded SFA. Code(s): I73.9 - PERIPHERAL VASCULAR DISEASE, UNSPECIFIED (3) CKD (chronic kidney disease) Code(s): N18.9 - CHRONIC KIDNEY DISEASE, UNSPECIFIED Qualifiers: Chronic kidney disease stage: unspecified stage Qualified Code(s): N18.9 - Chronic kidney disease, unspecified; N18.9 - Chronic kidney disease, unspecified (4) Chronic stable angina Code(s): I20.8 - OTHER FORMS OF ANGINA [place]ECT[place]IS (5) Diabetic neuropathy Assessment/Plan: Prolematic starting ACEI or ARB given renal dysfunction. Code(s): E11.40 - TYPE 2 DIABETES MELLITUS WITH DIABETIC NEUROPATHY, UNSP Qualifiers: Diabetes mellitus type: due to underlying condition (6) Diastolic CHF Assessment/Plan: On carvedilol and amlodipine. F/u BUN/Cr (hold furosemide if Cr continues to rise); Is and Os, daily weight; electrolytes. Code(s): I50.30 - UNSPECIFIED DIASTOLIC (CONGESTIVE) HEART FAILURE (7) Edema Code(s): R60.9 - EDEMA, UNSPECIFIED Qualifiers: Edema type: unspecified Qualified Code(s): R60.9 - Edema, unspecified; R60.9 - Edema, unspecified (8) Hyperlipidemia Assessment/Plan: statin (multiple CAD risks, including PAD and DM; LDL > 130 /17; f/u levels). Code(s): E78.5 - HYPERLIPIDEMIA, UNSPECIFIED (9) Acute renal insufficiency Code(s): N28.9 - DISORDER OF KIDNEY AND URETER, UNSPECIFIED (10) COPD exacerbation Code(s): J44.1 - CHRONIC OBSTRUCTIVE PULMONARY DISEASE W (ACUTE) EXACERBATION (11) CVA (cerebrovascular accident) Code(s): I63.9 - CEREBRAL INFARCTION, UNSPECIFIED Qualifiers: CVA mechanism: unspecified Qualified Code(s): I63.9 - Cerebral infarction, unspecified; I63.9 - Cerebral infarction, unspecified; I63.9 - Cerebral infarction, unspecified; I63.9 - Cerebral infarction, unspecified (12) Cellulitis Code(s): L03.90 - CELLULITIS, UNSPECIFIED Qualifiers: Site of cellulitis: extremity Site of cellulitis of extremity: lower extremity Laterality: left Qualified Code(s): L03.116 - Cellulitis of left lower limb; L03.116 - Cellulitis of left lower limb (13) Claudication Code(s): I73.9 - PERIPHERAL VASCULAR DISEASE, UNSPECIFIED (14) Diabetic foot ulcer Code(s): E11.621 - TYPE 2 DIABETES MELLITUS WITH FOOT ULCER L97.509 - NON-PRESSURE CHRONIC ULCER OTH PRT UNSP FOOT W UNSP SEVERITY (15) HTN (hypertension) Code(s): I10 - ESSENTIAL (PRIMARY) HYPERTENSION (16) PAD (peripheral artery disease) Assessment/Plan: Pt for right LE surgery next week. If PRBCs are given today, would give furosemide afterwards (PND; pulmonary congestion). Code(s): I73.9 - PERIPHERAL VASCULAR DISEASE, UNSPECIFIED
--- NOTE | 2017-02-18 16:03 | PN ---
Progress Note, Physician Chief Complaint: The patient seen in his room. Seems comfortable. PRBC transfusion in progress. Denies any pains. IV Lasix well tolerated. Maintains good urine output. - Current Medication List Current Medications: Active Medications Acetaminophen (Tylenol -) 650 mg PO Q6H PRN PRN Reason: FEVER OR PAIN Last Admin: 02/18/17 11:46 Dose: 650 mg Acetaminophen (Tylenol -) 325 mg PO Q4H PRN PRN Reason: PAIN LEVEL 1-5 Albuterol Sulfate (Ventolin 0.083% Nebulizer Soln -) 1 amp NEB Q4H PRN PRN Reason: SHORT OF BREATH/WHEEZING Last Admin: 02/17/17 10:57 Dose: 1 amp Amlodipine Besylate (Norvasc -) 5 mg PO DAILY [facility] Last Admin: 02/18/17 11:46 Dose: 5 mg Aspirin (Asa -) 81 mg PO DAILY [facility] Last Admin: 02/18/17 11:45 Dose: 81 mg Carvedilol (Coreg -) 12.5 mg PO BID [facility] Last Admin: 02/18/17 11:45 Dose: 12.5 mg Furosemide (Lasix Injection -) 40 mg IVPUSH ONCE ONE Stop: 02/18/17 18:01 Glipizide (Glucotrol Xl -) 5 mg PO AM [facility] Last Admin: 02/18/17 06:20 Dose: 5 mg Heparin Sodium (Porcine) (Heparin -) 5,000 unit SQ BID [facility] Last Admin: 02/18/17 11:46 Dose: 5,000 unit Insulin Aspart (Novolog Vial Sliding Scale -) 1 vial SQ TIDAC [facility] PRN Reason: Protocol Last Admin: 02/18/17 11:59 Dose: 2 unit Nystatin (Nystop Powder -) 1 applic TP DAILY [facility] Last Admin: 02/18/17 11:47 Dose: 1 applic Tamsulosin HCl (Flomax -) 0.8 mg PO DAILY@0830 [facility] Last Admin: 02/18/17 08:42 Dose: 0.8 mg Tolnaftate (Tinactin 1% Powder -) 1 applic TP BID [facility] Last Admin: 02/18/17 11:47 Dose: 1 applic - Objective Vital Signs: Vital Signs Temperature 98.5 F 02/18/17 15:49 Pulse Rate 74 02/18/17 15:49 Respiratory Rate 18 02/18/17 15:49 Blood Pressure 113/57 02/18/17 15:49 O2 Sat by Pulse Oximetry (%) 95 02/18/17 09:00 Constitutional: Yes: Well Nourished, Calm, Pallor Eyes: Yes: Conjunctiva Clear HENT: Yes: Normocephalic Neck: Yes: Trachea Midline Cardiovascular: Yes: S1, S2 Respiratory: Yes: Regular, Diminished Gastrointestinal: Yes: Normal Bowel Sounds, Soft (Swollen and dressing in place over the left leg.) Musculoskeletal: Yes: Back Pain, Joint Stiffness Labs: CBC, BMP 02/18/17 11:10 02/18/17 06:00 INR, PTT INR 1.23 (0.82-1.09) H 02/08/17 20:47 Problem List - Problems (1) ASHD (arteriosclerotic heart disease) Code(s): I25.10 - ATHSCL HEART DISEASE OF [place] CORONARY ARTERY W/O ANG PCTRS (2) Arterial insufficiency of lower extremity Code(s): I73.9 - PERIPHERAL VASCULAR DISEASE, UNSPECIFIED (3) CKD (chronic kidney disease) Code(s): N18.9 - CHRONIC KIDNEY DISEASE, UNSPECIFIED Qualifiers: Chronic kidney disease stage: unspecified stage Qualified Code(s): N18.9 - Chronic kidney disease, unspecified; N18.9 - Chronic kidney disease, unspecified (4) Chronic stable angina Code(s): I20.8 - OTHER FORMS OF ANGINA PECTORIS (5) Diabetic neuropathy Code(s): E11.40 - TYPE 2 DIABETES MELLITUS WITH DIABETIC NEUROPATHY, UNSP Qualifiers: Diabetes mellitus type: due to underlying condition (6) Diastolic CHF Code(s): I50.30 - UNSPECIFIED DIASTOLIC (CONGESTIVE) HEART FAILURE (7) Hyperlipidemia Code(s): E78.5 - HYPERLIPIDEMIA, UNSPECIFIED (8) IDDM (insulin dependent diabetes mellitus) Code(s): E11.9 - TYPE 2 DIABETES MELLITUS WITHOUT COMPLICATIONS Z79.4 - HALFWAY (CURRENT) USE OF INSULIN (9) Lower back pain Code(s): M54.5 - LOW BACK PAIN (10) Acute renal insufficiency Code(s): N28.9 - DISORDER OF KIDNEY AND URETER, UNSPECIFIED (11) Bacteremia Code(s): R78.81 - BACTEREMIA (12) CAD (coronary artery disease) Code(s): I25.10 - ATHSCL HEART DISEASE OF [place] CORONARY ARTERY W/O ANG PCTRS Qualifiers: Coronary Disease-Associated Artery/Lesion type: [place] artery [place] vs. transplanted heart: [place] heart Associated angina: without angina Qualified Code(s): I25.10 - Atherosclerotic heart disease of [place] coronary artery without angina pectoris; I25.10 - Atherosclerotic heart disease of [place] coronary artery without angina pectoris; I25.10 - Atherosclerotic heart disease of [place] coronary artery without angina pectoris (13) Diabetes Code(s): E11.9 - TYPE 2 DIABETES MELLITUS WITHOUT COMPLICATIONS Qualifiers: Diabetes mellitus type: type 2 Diabetes mellitus complication detail: with nephropathy (14) Diabetic foot ulcer Code(s): E11.621 - TYPE 2 DIABETES MELLITUS WITH FOOT ULCER L97.509 - NON-PRESSURE CHRONIC ULCER OTH PRT UNSP FOOT W UNSP SEVERITY (15) HTN (hypertension) Code(s): I10 - ESSENTIAL (PRIMARY) HYPERTENSION Assessment/Plan 56 year old gentleman with PMhx of Atrial fib, CAD s/p stents (on plavix), CVA with residual left sided weakness, IDDM, HTN, HLD, COPD, Anemia who presented from home with compliant of frequent urination and sob and admitted with acute on CHF and BUN/Cr of 31/1.5 (baseline Cr 1.3) VANDA in setting of contrast exposure Renal function starting to improve. The Renal functions are expected to improve and settle at or near his baseline. Will monitor the Renal functions with you. Concur with PRBC Transfusion. Thank you. Susie Brooke MD
[2017-02-18] MEDS ORDERED: FUROSEMIDE 40 MG/4 ML INJECTABLE VIAL IVPUSH ONE (18:00)
[2017-02-19] MEDS ORDERED: PT OWN MED DRAWER 7, Y5N ONE (05:03)
[2017-02-19] MEDS: glipiZIDE-XL 5 MG TAB.ER.24 PO SCH (06:25)
[2017-02-19] MEDS: INSULIN SLIDING SCALE (NOVOLOG) 1 VIAL SQ SCH ×3 (07:59→17:01)
[2017-02-19 08:20] LABS: ANION GAP 7 (8-16); CALCIUM 7.9 mg/dL (8.5-10.1); CO2 25 mmol/L (21-32); CREATININE 2.1 mg/dL (0.7-1.3); GLUCOSE,RANDOM 90 mg/dL (74-106)
[2017-02-19] MEDS: TAMSULOSIN HCL 0.4 MG CAP.ER.24H (FP) PO SCH (08:28)
[2017-02-19 08:32] LABS: MCH 31.7 pg (25.7-33.7); MCHC 34.7 g/dl (32.0-35.9); MEAN CELL VOLUME 91.6 fl (80-96); PLATELET COUNT 223 K/MM3 (134-434); RDW 14.3 % (11.9-15.9)
[2017-02-19 08:42] LABS: INR 1.24 (0.82-1.09)
--- NOTE | 2017-02-19 09:01 | PN ---
Progress Note, Physician Chief Complaint: no distress no dark stools no chest pain , dizziness was not SOB - Current Medication List Current Medications: Active Medications Acetaminophen (Tylenol -) 650 mg PO Q6H PRN PRN Reason: FEVER OR PAIN Last Admin: 02/18/17 11:46 Dose: 650 mg Acetaminophen (Tylenol -) 325 mg PO Q4H PRN PRN Reason: PAIN LEVEL 1-5 Albuterol Sulfate (Ventolin 0.083% Nebulizer Soln -) 1 amp NEB Q4H PRN PRN Reason: SHORT OF BREATH/WHEEZING Last Admin: 02/17/17 10:57 Dose: 1 amp Amlodipine Besylate (Norvasc -) 5 mg PO DAILY [facility] Last Admin: 02/18/17 11:46 Dose: 5 mg Aspirin (Asa -) 81 mg PO DAILY [facility] Last Admin: 02/18/17 11:45 Dose: 81 mg Carvedilol (Coreg -) 12.5 mg PO BID [facility] Last Admin: 02/18/17 22:44 Dose: 12.5 mg Glipizide (Glucotrol Xl -) 5 mg PO AM [facility] Last Admin: 02/19/17 06:25 Dose: 5 mg Heparin Sodium (Porcine) (Heparin -) 5,000 unit SQ BID [facility] Last Admin: 02/18/17 22:44 Dose: 5,000 unit Insulin Aspart (Novolog Vial Sliding Scale -) 1 vial SQ TIDAC [facility] PRN Reason: Protocol Last Admin: 02/19/17 07:59 Dose: Not Given Nystatin (Nystop Powder -) 1 applic TP DAILY [facility] Last Admin: 02/18/17 11:47 Dose: 1 applic Tamsulosin HCl (Flomax -) 0.8 mg PO DAILY@0830 [facility] Last Admin: 02/19/17 08:28 Dose: 0.8 mg Tolnaftate (Tinactin 1% Powder -) 1 applic TP BID [facility] Last Admin: 02/18/17 22:46 Dose: 1 applic - Objective Vital Signs: Vital Signs Temperature 98.1 F 02/19/17 06:35 Pulse Rate 81 02/19/17 06:35 Respiratory Rate 20 02/19/17 06:35 Blood Pressure 143/72 02/19/17 06:35 O2 Sat by Pulse Oximetry (%) 95 02/18/17 21:00 Constitutional: Yes: No Distress, Calm Cardiovascular: Yes: Regular Rate and Rhythm Respiratory: Yes: Diminished Gastrointestinal: Yes: Normal Bowel Sounds, Soft, Abdomen, Obese. No: Tenderness Edema: Yes Labs: CBC, BMP 02/19/17 06:00 02/19/17 06:00 INR, PTT INR 1.24 (0.82-1.09) H 02/19/17 06:00 Problem List - Problems (1) ASHD (arteriosclerotic heart disease) Code(s): I25.10 - ATHSCL HEART DISEASE OF [place] CORONARY ARTERY W/O ANG PCTRS (2) CKD (chronic kidney disease) Code(s): N18.9 - CHRONIC KIDNEY DISEASE, UNSPECIFIED Qualifiers: Chronic kidney disease stage: unspecified stage Qualified Code(s): N18.9 - Chronic kidney disease, unspecified; N18.9 - Chronic kidney disease, unspecified (3) Diastolic CHF Code(s): I50.30 - UNSPECIFIED DIASTOLIC (CONGESTIVE) HEART FAILURE (4) PAD (peripheral artery disease) Code(s): I73.9 - PERIPHERAL VASCULAR DISEASE, UNSPECIFIED (5) Arterial insufficiency of lower extremity Code(s): I73.9 - PERIPHERAL VASCULAR DISEASE, UNSPECIFIED Assessment/Plan PLAN SFA occlusion-- bypass scheduled for tomorrow monitor BUN/Creatinine received Lasix yesterday, increased creatinine noted-- hold Lasix today s/p PRBC yesterday continue with meds DVT prophylaxis-- Heparin sc
[2017-02-19] MEDS: ACETAMINOPHEN 325 MG TABLET (FP) PO PRN ×2 (10:16→14:47)
[2017-02-19] MEDS: HEPARIN NA (PORCINE) 5,000 UNITS/ML 1ML VIAL SQ SCH ×2 (10:16→21:09)
[2017-02-19] MEDS: amLODIPine BESYLATE 5 MG TABLET (FP) PO SCH (10:16)
[2017-02-19] MEDS: CARVEDILOL 12.5 MG TABLET (FP) PO SCH ×2 (10:16→21:09)
[2017-02-19] MEDS: ASPIRIN 81 MG CHEWABLE TABLETS PO SCH (10:16)
[2017-02-19] MEDS: TOLNAFTATE 1% POWDER 45 GM POW TP SCH ×2 (10:16→21:10)
[2017-02-19] MEDS: NYSTATIN POWDER 100,000 UNITS/GM - 15 GM TOPICAL POWDER TP SCH (10:17)
--- NOTE | 2017-02-19 11:17 | PN ---
Progress Note (short form) - Note Progress Note: Exam unchanged, complains about pain in right leg. I discussed the plans for bypass including surgical risks of bleeding, infection , graft thrombosis, limb loss. He received 1 U PRBC yesterday, Hgb 8.2 today. Blood will be available for OR. Problem List - Problems (1) PAD (peripheral artery disease) Code(s): I73.9 - PERIPHERAL VASCULAR DISEASE, UNSPECIFIED
--- NOTE | 2017-02-19 12:57 | PN ---
Progress Note, Physician Chief Complaint: The patient seen in his room. Seems comfortable. Received PRBC transfusion yesterday. Scheduled for LE by pass surgery tomorrow. IV Lasix well tolerated. Maintains good urine output. - Current Medication List Current Medications: Active Medications Acetaminophen (Tylenol -) 650 mg PO Q6H PRN PRN Reason: FEVER OR PAIN Last Admin: 02/19/17 10:16 Dose: 650 mg Acetaminophen (Tylenol -) 325 mg PO Q4H PRN PRN Reason: PAIN LEVEL 1-5 Albuterol Sulfate (Ventolin 0.083% Nebulizer Soln -) 1 amp NEB Q4H PRN PRN Reason: SHORT OF BREATH/WHEEZING Last Admin: 02/17/17 10:57 Dose: 1 amp Amlodipine Besylate (Norvasc -) 5 mg PO DAILY [facility] Last Admin: 02/19/17 10:16 Dose: 5 mg Aspirin (Asa -) 81 mg PO DAILY [facility] Last Admin: 02/19/17 10:16 Dose: 81 mg Carvedilol (Coreg -) 12.5 mg PO BID [facility] Last Admin: 02/19/17 10:16 Dose: 12.5 mg Glipizide (Glucotrol Xl -) 5 mg PO AM [facility] Last Admin: 02/19/17 06:25 Dose: 5 mg Heparin Sodium (Porcine) (Heparin -) 5,000 unit SQ BID [facility] Last Admin: 02/19/17 10:16 Dose: 5,000 unit Insulin Aspart (Novolog Vial Sliding Scale -) 1 vial SQ TIDAC [facility] PRN Reason: Protocol Last Admin: 02/19/17 11:58 Dose: Not Given Nystatin (Nystop Powder -) 1 applic TP DAILY [facility] Last Admin: 02/19/17 10:17 Dose: 1 applic Tamsulosin HCl (Flomax -) 0.8 mg PO DAILY@0830 [facility] Last Admin: 02/19/17 08:28 Dose: 0.8 mg Tolnaftate (Tinactin 1% Powder -) 1 applic TP BID [facility] Last Admin: 02/19/17 10:16 Dose: 1 applic - Objective Vital Signs: Vital Signs Temperature 98.0 F 02/19/17 10:00 Pulse Rate 76 02/19/17 10:00 Respiratory Rate 18 02/19/17 10:00 Blood Pressure 111/47 02/19/17 10:00 O2 Sat by Pulse Oximetry (%) 95 02/18/17 21:00 Constitutional: Yes: No Distress, Anxious Eyes: Yes: Conjunctiva Clear HENT: Yes: Atraumatic Neck: Yes: Trachea Midline Cardiovascular: Yes: S1, S2 Respiratory: Yes: Regular, Diminished Gastrointestinal: Yes: Normal Bowel Sounds, Soft Musculoskeletal: Yes: Joint Stiffness, Muscle Pain Labs: CBC, BMP 02/19/17 06:00 02/19/17 06:00 INR, PTT INR 1.24 (0.82-1.09) H 02/19/17 06:00 Problem List - Problems (1) ASHD (arteriosclerotic heart disease) Code(s): I25.10 - ATHSCL HEART DISEASE OF [place] CORONARY ARTERY W/O ANG PCTRS (2) Arterial insufficiency of lower extremity Code(s): I73.9 - PERIPHERAL VASCULAR DISEASE, UNSPECIFIED (3) CKD (chronic kidney disease) Code(s): N18.9 - CHRONIC KIDNEY DISEASE, UNSPECIFIED Qualifiers: Chronic kidney disease stage: unspecified stage Qualified Code(s): N18.9 - Chronic kidney disease, unspecified; N18.9 - Chronic kidney disease, unspecified (4) Chronic stable angina Code(s): I20.8 - OTHER FORMS OF ANGINA PECTORIS (5) Diabetic neuropathy Code(s): E11.40 - TYPE 2 DIABETES MELLITUS WITH DIABETIC NEUROPATHY, UNSP Qualifiers: Diabetes mellitus type: due to underlying condition (6) Diastolic CHF Code(s): I50.30 - UNSPECIFIED DIASTOLIC (CONGESTIVE) HEART FAILURE (7) Hyperlipidemia Code(s): E78.5 - HYPERLIPIDEMIA, UNSPECIFIED (8) IDDM (insulin dependent diabetes mellitus) Code(s): E11.9 - TYPE 2 DIABETES MELLITUS WITHOUT COMPLICATIONS Z79.4 - LONGTERM (CURRENT) USE OF INSULIN (9) Lower back pain Code(s): M54.5 - LOW BACK PAIN (10) Acute renal insufficiency Code(s): N28.9 - DISORDER OF KIDNEY AND URETER, UNSPECIFIED (11) Bacteremia Code(s): R78.81 - BACTEREMIA (12) CAD (coronary artery disease) Code(s): I25.10 - ATHSCL HEART DISEASE OF [place] CORONARY ARTERY W/O ANG PCTRS Qualifiers: Coronary Disease-Associated Artery/Lesion type: [place] artery [place] vs. transplanted heart: [place] heart Associated angina: without angina Qualified Code(s): I25.10 - Atherosclerotic heart disease of [place] coronary artery without angina pectoris; I25.10 - Atherosclerotic heart disease of [place] coronary artery without angina pectoris; I25.10 - Atherosclerotic heart disease of [place] coronary artery without angina pectoris (13) Diabetes Code(s): E11.9 - TYPE 2 DIABETES MELLITUS WITHOUT COMPLICATIONS Qualifiers: Diabetes mellitus type: type 2 Diabetes mellitus complication detail: with nephropathy (14) Diabetic foot ulcer Code(s): E11.621 - TYPE 2 DIABETES [place]LL[place]US WITH FOOT ULCER L97.509 - NON-PRESSURE CHRONIC ULCER OTH PRT UNSP FOOT W UNSP SEVERITY (15) HTN (hypertension) Code(s): I10 - ESSENTIAL (PRIMARY) HYPERTENSION Assessment/Plan 56 year old gentleman with PMhx of Atrial fib, CAD s/p stents (on plavix), CVA with residual left sided weakness, IDDM, HTN, HLD, COPD, Anemia who presented from home with complaints of frequent urination and sob and admitted with acute on CHF and BUN/Cr of 31/1.5 (baseline Cr 1.3) The patient has PVD and is scheduled for By pass surgery tomorrow. The Renal functions show some deterioation of azotemia, possibly Contrast induced Nephropathy. Will monitor the renal functions, especially now that he is scheduled for Vascular surgery. The renal functions are expected eventually to improve and settle at or near his baseline unless there are more acute injuries. Will monitor with you. If significant blood loss occurs, should consider PRBC transfusion. Thank you. Susie Brooke MD
--- NOTE | 2017-02-19 19:45 | PN ---
Progress Note, Physician Chief Complaint: Pt Alert and oriented; pain in both LEs, though able to walk down the garcia. No chest pain; improved respiration. History of Present Illness: 56 yr old white male, with significant past medical history of Afib, CAD s/p stents (on plavix), CVA with residual left sided weakness, IDDM, HTN, HLD, who presents to the emergency room BIB for bilateral lower extremity swelling, chest discomfort, and SOB. Even though he is SOB, he states that he is ambulatory with a walker. The patient was recently admitted for left lower extremity cellulitis on 01/19/17 and discharged on 01/24/17 with a prescription for Lasix. Denies fever, chills, nausea, vomiting. Denies sick contact. Denies recent travel. Denies cough. - Current Medication List Current Medications: Active Medications Acetaminophen (Tylenol -) 650 mg PO Q6H PRN PRN Reason: FEVER OR PAIN Last Admin: 02/19/17 14:47 Dose: 650 mg Acetaminophen (Tylenol -) 325 mg PO Q4H PRN PRN Reason: PAIN LEVEL 1-5 Albuterol Sulfate (Ventolin 0.083% Nebulizer Soln -) 1 amp NEB Q4H PRN PRN Reason: SHORT OF BREATH/WHEEZING Last Admin: 02/17/17 10:57 Dose: 1 amp Amlodipine Besylate (Norvasc -) 5 mg PO DAILY [facility] Last Admin: 02/19/17 10:16 Dose: 5 mg Aspirin (Asa -) 81 mg PO DAILY [facility] Last Admin: 02/19/17 10:16 Dose: 81 mg Carvedilol (Coreg -) 12.5 mg PO BID [facility] Last Admin: 02/19/17 10:16 Dose: 12.5 mg Glipizide (Glucotrol Xl -) 5 mg PO AM [facility] Last Admin: 02/19/17 06:25 Dose: 5 mg Heparin Sodium (Porcine) (Heparin -) 5,000 unit SQ BID [facility] Last Admin: 02/19/17 10:16 Dose: 5,000 unit Insulin Aspart (Novolog Vial Sliding Scale -) 1 vial SQ TIDAC [facility] PRN Reason: Protocol Last Admin: 02/19/17 17:01 Dose: Not Given Nystatin (Nystop Powder -) 1 applic TP DAILY [facility] Last Admin: 02/19/17 10:17 Dose: 1 applic Tamsulosin HCl (Flomax -) 0.8 mg PO DAILY@0830 [facility] Last Admin: 02/19/17 08:28 Dose: 0.8 mg Tolnaftate (Tinactin 1% Powder -) 1 applic TP BID [facility] Last Admin: 02/19/17 10:16 Dose: 1 applic - Objective Vital Signs: Vital Signs Temperature 98.3 F 02/19/17 15:42 Pulse Rate 72 02/19/17 15:42 Respiratory Rate 18 02/19/17 15:42 Blood Pressure 96/46 02/19/17 15:42 O2 Sat by Pulse Oximetry (%) 95 02/19/17 09:00 Labs: CBC, BMP 02/19/17 06:00 02/19/17 06:00 INR, PTT INR 1.24 (0.82-1.09) H 02/19/17 06:00 Problem List - Problems (1) ASHD (arteriosclerotic heart disease) Assessment/Plan: On ASA; Coreg; amlodipine. F/u liopids; pt says he was on a statin in the past. Code(s): I25.10 - ATHSCL HEART DISEASE OF [place] CORONARY ARTERY W/O ANG PCTRS (2) Arterial insufficiency of lower extremity Assessment/Plan: Planned for surgery (bypass) in am for occluded SFA. Code(s): I73.9 - PERIPHERAL VASCULAR DISEASE, UNSPECIFIED (3) CKD (chronic kidney disease) Code(s): N18.9 - CHRONIC KIDNEY DISEASE, UNSPECIFIED Qualifiers: Chronic kidney disease stage: unspecified stage Qualified Code(s): N18.9 - Chronic kidney disease, unspecified; N18.9 - Chronic kidney disease, unspecified (4) Chronic stable angina Code(s): I20.8 - OTHER FORMS OF ANGINA PECTORIS (5) Diabetic neuropathy Code(s): E11.40 - TYPE 2 DIABETES MELLITUS WITH DIABETIC NEUROPATHY, UNSP Qualifiers: Diabetes mellitus type: due to underlying condition (6) Diastolic CHF Code(s): I50.30 - UNSPECIFIED DIASTOLIC (CONGESTIVE) HEART FAILURE (7) Edema Code(s): R60.9 - EDEMA, UNSPECIFIED Qualifiers: Edema type: unspecified Qualified Code(s): R60.9 - Edema, unspecified; R60.9 - Edema, unspecified (8) Hyperlipidemia Code(s): E78.5 - HYPERLIPIDEMIA, UNSPECIFIED (9) Acute renal insufficiency Code(s): N28.9 - DISORDER OF KIDNEY AND URETER, UNSPECIFIED (10) COPD exacerbation Code(s): J44.1 - CHRONIC OBSTRUCTIVE PULMONARY DISEASE W (ACUTE) EXACERBATION (11) CVA (cerebrovascular accident) Code(s): I63.9 - CEREBRAL INFARCTION, UNSPECIFIED Qualifiers: CVA mechanism: unspecified Qualified Code(s): I63.9 - Cerebral infarction, unspecified; I63.9 - Cerebral infarction, unspecified; I63.9 - Cerebral infarction, unspecified; I63.9 - Cerebral infarction, unspecified (12) Cellulitis Code(s): L03.90 - CELLULITIS, UNSPECIFIED Qualifiers: Site of cellulitis: extremity Site of cellulitis of extremity: lower extremity Laterality: left Qualified Code(s): L03.116 - Cellulitis of left lower limb; L03.116 - Cellulitis of left lower limb (13) Claudication Code(s): I73.9 - PERIPHERAL VASCULAR DISEASE, UNSPECIFIED (14) Diabetic foot ulcer Code(s): E11.621 - TYPE 2 DIABETES MELLITUS WITH FOOT ULCER L97.509 - NON-PRESSURE CHRONIC ULCER OTH PRT UNSP FOOT W UNSP SEVERITY (15) HTN (hypertension) Code(s): I10 - ESSENTIAL (PRIMARY) HYPERTENSION (16) PAD (peripheral artery disease) Code(s): I73.9 - PERIPHERAL VASCULAR DISEASE, UNSPECIFIED
[2017-02-19 20:08] LABS: CHOLESTEROL 154 mg/dL (50-200)
[2017-02-20] MEDS ORDERED: PT OWN MED DRAWER 7, Y5N ONE (05:11)
[2017-02-20] MEDS: INSULIN SLIDING SCALE (NOVOLOG) 1 VIAL SQ SCH ×3 (06:31→16:32)
[2017-02-20 08:19] LABS: ALBUMIN 2.4 g/dl (3.4-5.0); ALK PHOS 77 U/L (45-117); ANION GAP 8 (8-16); BILIRUBIN,TOTAL 0.2 mg/dL (0.2-1.0); CALCIUM 8.1 mg/dL (8.5-10.1); CO2 24 mmol/L (21-32); CREATININE 2.2 mg/dL (0.7-1.3); GLUCOSE,RANDOM 83 mg/dL (74-106); SGOT/AST 9 U/L (15-37); SGPT/ALT 16 U/L (12-78); TOT PROT 5.9 g/dl (6.4-8.2)
--- NOTE | 2017-02-20 08:53 | PN ---
Progress Note (short form) - Note Progress Note: Pt seen/ examined feels ok. no complains pain under control scheduled for or today diabetic meds held Vital Signs Temp 98.0 F 02/19/17 22:00 Pulse 80 02/19/17 22:00 Resp 18 02/19/17 22:00 BP 112/40 02/19/17 22:00 Pulse Ox 95 02/19/17 21:00 Intake & Output 02/19/17 02/19/17 02/20/17 11:59 23:59 11:59 Intake Total 350 220 Output Total 790 584 6744 Balance 50 -230 -1200 Intake: IVPB 0 Oral 350 220 Output: Urine 079 016 4373 Void 450 1200 Smith 300 Other: Voiding Method Urinal Urinal # Unmeasured Voids Void 1 Bowel Movement No # Bowel Movements 0 Active Medications Acetaminophen (Tylenol -) 650 mg PO Q6H PRN PRN Reason: FEVER OR PAIN Last Admin: 02/19/17 14:47 Dose: 650 mg Acetaminophen (Tylenol -) 325 mg PO Q4H PRN PRN Reason: PAIN LEVEL 1-5 Albuterol Sulfate (Ventolin 0.083% Nebulizer Soln -) 1 amp NEB Q4H PRN PRN Reason: SHORT OF BREATH/WHEEZING Last Admin: 02/17/17 10:57 Dose: 1 amp Amlodipine Besylate (Norvasc -) 5 mg PO DAILY [facility] Last Admin: 02/19/17 10:16 Dose: 5 mg Aspirin (Asa -) 81 mg PO DAILY [facility] Last Admin: 02/19/17 10:16 Dose: 81 mg Carvedilol (Coreg -) 12.5 mg PO BID [facility] Last Admin: 02/19/17 21:09 Dose: 12.5 mg Glipizide (Glucotrol Xl -) 5 mg PO AM [facility] Last Admin: 02/19/17 06:25 Dose: 5 mg Heparin Sodium (Porcine) (Heparin -) 5,000 unit SQ BID [facility] Last Admin: 02/19/17 21:09 Dose: 5,000 unit Insulin Aspart (Novolog Vial Sliding Scale -) 1 vial SQ TIDAC [facility] PRN Reason: Protocol Last Admin: 02/20/17 06:31 Dose: Not Given Nystatin (Nystop Powder -) 1 applic TP DAILY [facility] Last Admin: 02/19/17 10:17 Dose: 1 applic Tamsulosin HCl (Flomax -) 0.8 mg PO DAILY@0830 [facility] Last Admin: 02/19/17 08:28 Dose: 0.8 mg Tolnaftate (Tinactin 1% Powder -) 1 applic TP BID [facility] Last Admin: 02/19/17 21:10 Dose: 1 applic CBC, BMP 02/19/17 06:00 02/20/17 06:00 Physical Exam Constitutional: Yes: No Distress, Calm, comfortable Cardiovascular: Yes: Regular Rate and Rhythm. Respiratory: Yes: Diminished at bases Gastrointestinal: Yes: Normal Bowel Sounds, Soft, Abdomen, Obese. No: Tenderness Edema: Yes Problem List - Problems (1) ASHD (arteriosclerotic heart disease) Code(s): I25.10 - ATHSCL HEART DISEASE OF [place] CORONARY ARTERY W/O ANG PCTRS (2) CKD (chronic kidney disease) Code(s): N18.9 - CHRONIC KIDNEY DISEASE, UNSPECIFIED Qualifiers: Chronic kidney disease stage: unspecified stage Qualified Code(s): N18.9 - Chronic kidney disease, unspecified; N18.9 - Chronic kidney disease, unspecified (3) Diastolic CHF Code(s): I50.30 - UNSPECIFIED DIASTOLIC (CONGESTIVE) HEART FAILURE (4) PAD (peripheral artery disease) Code(s): I73.9 - PERIPHERAL VASCULAR DISEASE, UNSPECIFIED (5) Arterial insufficiency of lower extremity Code(s): I73.9 - PERIPHERAL VASCULAR DISEASE, UNSPECIFIED Assessment/Plan stable SFA occlusion-- bypass scheduled for today. clinically stable continue with meds diabetic meds held today pt to be monitored in icu after bypass . will follow.
[2017-02-20] MEDS: ASPIRIN 81 MG CHEWABLE TABLETS PO SCH (09:16)
[2017-02-20] MEDS: amLODIPine BESYLATE 5 MG TABLET (FP) PO SCH (09:16)
[2017-02-20] MEDS: CARVEDILOL 12.5 MG TABLET (FP) PO SCH ×2 (09:16→21:59)
[2017-02-20] MEDS: TAMSULOSIN HCL 0.4 MG CAP.ER.24H (FP) PO SCH (09:16)
[2017-02-20] MEDS: NYSTATIN POWDER 100,000 UNITS/GM - 15 GM TOPICAL POWDER TP SCH (09:18)
[2017-02-20] MEDS: TOLNAFTATE 1% POWDER 45 GM POW TP SCH ×2 (09:18→21:59)
[2017-02-20] MEDS: ALBUTEROL SO4 0.083% IH SOL 2.5 MG/3 ML VIAL.NEB. NEB PRN (10:45)
--- NOTE | 2017-02-20 12:09 | PN ---
Progress Note, Physician History of Present Illness: seen this am, resting comfortably. no new complaints. no overnight events. - Current Medication List Current Medications: Active Medications Acetaminophen (Tylenol -) 650 mg PO Q6H PRN PRN Reason: FEVER OR PAIN Last Admin: 02/19/17 14:47 Dose: 650 mg Acetaminophen (Tylenol -) 325 mg PO Q4H PRN PRN Reason: PAIN LEVEL 1-5 Albuterol Sulfate (Ventolin 0.083% Nebulizer Soln -) 1 amp NEB Q4H PRN PRN Reason: SHORT OF BREATH/WHEEZING Last Admin: 02/20/17 10:45 Dose: 1 amp Amlodipine Besylate (Norvasc -) 5 mg PO DAILY [facility] Last Admin: 02/20/17 09:16 Dose: 5 mg Aspirin (Asa -) 81 mg PO DAILY [facility] Last Admin: 02/20/17 09:16 Dose: 81 mg Carvedilol (Coreg -) 12.5 mg PO BID [facility] Last Admin: 02/20/17 09:16 Dose: 12.5 mg Glipizide (Glucotrol Xl -) 5 mg PO AM [facility] Last Admin: 02/19/17 06:25 Dose: 5 mg Heparin Sodium (Porcine) (Heparin -) 5,000 unit SQ BID [facility] Last Admin: 02/19/17 21:09 Dose: 5,000 unit Insulin Aspart (Novolog Vial Sliding Scale -) 1 vial SQ TIDAC [facility] PRN Reason: Protocol Last Admin: 02/20/17 06:31 Dose: Not Given Nystatin (Nystop Powder -) 1 applic TP DAILY [facility] Last Admin: 02/20/17 09:18 Dose: 1 applic Tamsulosin HCl (Flomax -) 0.8 mg PO DAILY@0830 [facility] Last Admin: 02/20/17 09:16 Dose: 0.8 mg Tolnaftate (Tinactin 1% Powder -) 1 applic TP BID [facility] Last Admin: 02/20/17 09:18 Dose: 1 applic - Objective Vital Signs: Vital Signs Temperature 98.0 F 02/19/17 22:00 Pulse Rate 80 02/19/17 22:00 Respiratory Rate 18 02/19/17 22:00 Blood Pressure 112/40 02/19/17 22:00 O2 Sat by Pulse Oximetry (%) 95 02/19/17 21:00 Constitutional: Yes: No Distress, Calm Eyes: Yes: Conjunctiva Clear HENT: Yes: Atraumatic Cardiovascular: Yes: Regular Rate and Rhythm, S1, S2. No: Bradycardia, Tachycardia, Pulse Irregular, Bruit, JVD, Gallop, Murmur, Rub, S3, S4, Varicosities Respiratory: Yes: Regular Gastrointestinal: Yes: Normal Bowel Sounds Edema: Yes Neurological: Yes: Alert, Oriented Psychiatric: Yes: Alert, Oriented Labs: CBC, BMP 02/19/17 06:00 02/20/17 06:00 INR, PTT INR 1.24 (0.82-1.09) H 02/19/17 06:00 - ....Imaging Chest X-ray: Report Reviewed, Image Reviewed EKG: Report Reviewed, Image Reviewed Other: Report Reviewed, Image Reviewed Assessment/Plan Acute on chronic CKD Acute on chronic diastolic CHF PAD with SFA occlusion REC: Planned for LE bypass today Plan to monitor in ICU post op Hold off on additional Lasix at this time, volume status stable and bun/creat trending up Cont Coreg and Norvasc
--- NOTE | 2017-02-20 13:06 | PN ---
Progress Note, Physician Chief Complaint: The patient seen in his room. Scheduled for LE Bypass surgery this afternoon. Seems comfortable. Maintains good urine output. - Current Medication List Current Medications: Active Medications Acetaminophen (Tylenol -) 650 mg PO Q6H PRN PRN Reason: FEVER OR PAIN Last Admin: 02/19/17 14:47 Dose: 650 mg Acetaminophen (Tylenol -) 325 mg PO Q4H PRN PRN Reason: PAIN LEVEL 1-5 Albuterol Sulfate (Ventolin 0.083% Nebulizer Soln -) 1 amp NEB Q4H PRN PRN Reason: SHORT OF BREATH/WHEEZING Last Admin: 02/20/17 10:45 Dose: 1 amp Amlodipine Besylate (Norvasc -) 5 mg PO DAILY [facility] Last Admin: 02/20/17 09:16 Dose: 5 mg Aspirin (Asa -) 81 mg PO DAILY [facility] Last Admin: 02/20/17 09:16 Dose: 81 mg Carvedilol (Coreg -) 12.5 mg PO BID [facility] Last Admin: 02/20/17 09:16 Dose: 12.5 mg Glipizide (Glucotrol Xl -) 5 mg PO AM [facility] Last Admin: 02/19/17 06:25 Dose: 5 mg Heparin Sodium (Porcine) (Heparin -) 5,000 unit SQ BID [facility] Last Admin: 02/19/17 21:09 Dose: 5,000 unit Insulin Aspart (Novolog Vial Sliding Scale -) 1 vial SQ TIDAC [facility] PRN Reason: Protocol Last Admin: 02/20/17 11:40 Dose: Not Given Nystatin (Nystop Powder -) 1 applic TP DAILY [facility] Last Admin: 02/20/17 09:18 Dose: 1 applic Tamsulosin HCl (Flomax -) 0.8 mg PO DAILY@0830 [facility] Last Admin: 02/20/17 09:16 Dose: 0.8 mg Tolnaftate (Tinactin 1% Powder -) 1 applic TP BID [facility] Last Admin: 02/20/17 09:18 Dose: 1 applic - Objective Vital Signs: Vital Signs Temperature 98.0 F 02/19/17 22:00 Pulse Rate 80 02/19/17 22:00 Respiratory Rate 18 02/19/17 22:00 Blood Pressure 112/40 02/19/17 22:00 O2 Sat by Pulse Oximetry (%) 95 02/19/17 21:00 Constitutional: Yes: Well Nourished, Calm, Pallor Eyes: Yes: Conjunctiva Clear Neck: Yes: Trachea Midline Cardiovascular: Yes: S1, S2 Respiratory: Yes: Regular, Diminished Gastrointestinal: Yes: Normal Bowel Sounds Extremities: Yes: Other (Edema and redness) Edema: LLE: 1+, RLE: 1+ Neurological: Yes: Alert Labs: CBC, BMP 02/19/17 06:00 02/20/17 06:00 INR, PTT INR 1.24 (0.82-1.09) H 02/19/17 06:00 Problem List - Problems (1) ASHD (arteriosclerotic heart disease) Code(s): I25.10 - ATHSCL HEART DISEASE OF [place] CORONARY ARTERY W/O ANG PCTRS (2) Arterial insufficiency of lower extremity Code(s): I73.9 - PERIPHERAL VASCULAR DISEASE, UNSPECIFIED (3) CKD (chronic kidney disease) Code(s): N18.9 - CHRONIC KIDNEY DISEASE, UNSPECIFIED Qualifiers: Chronic kidney disease stage: unspecified stage Qualified Code(s): N18.9 - Chronic kidney disease, unspecified; N18.9 - Chronic kidney disease, unspecified (4) Chronic stable angina Code(s): I20.8 - OTHER FORMS OF ANGINA PECTORIS (5) Diabetic neuropathy Code(s): E11.40 - TYPE 2 DIABETES MELLITUS WITH DIABETIC NEUROPATHY, UNSP Qualifiers: Diabetes mellitus type: due to underlying condition (6) Diastolic CHF Code(s): I50.30 - UNSPECIFIED DIASTOLIC (CONGESTIVE) HEART FAILURE (7) Hyperlipidemia Code(s): E78.5 - HYPERLIPIDEMIA, UNSPECIFIED (8) IDDM (insulin dependent diabetes mellitus) Code(s): E11.9 - TYPE 2 DIABETES MELLITUS WITHOUT COMPLICATIONS Z79.4 - WATER PUMPER (CURRENT) USE OF INSULIN (9) Lower back pain Code(s): M54.5 - LOW BACK PAIN (10) Acute renal insufficiency Code(s): N28.9 - DISORDER OF KIDNEY AND URETER, UNSPECIFIED (11) Bacteremia Code(s): R78.81 - BACTEREMIA (12) CAD (coronary artery disease) Code(s): I25.10 - ATHSCL HEART DISEASE OF [place] CORONARY ARTERY W/O ANG PCTRS Qualifiers: Coronary Disease-Associated Artery/Lesion type: [place] artery [place] vs. transplanted heart: [place] heart Associated angina: without angina Qualified Code(s): I25.10 - Atherosclerotic heart disease of [place] coronary artery without angina pectoris; I25.10 - Atherosclerotic heart disease of [place] coronary artery without angina pectoris; I25.10 - Atherosclerotic heart disease of [place] coronary artery without angina pectoris (13) Diabetes Code(s): E11.9 - TYPE 2 DIABETES MELLITUS WITHOUT COMPLICATIONS Qualifiers: Diabetes mellitus type: type 2 Diabetes mellitus complication detail: with nephropathy (14) Diabetic foot ulcer Code(s): E11.621 - TYPE 2 DIABETES MELLITUS WITH FOOT ULCER L97.509 - NON-PRESSURE CHRONIC ULCER OTH PRT UNSP FOOT W UNSP SEVERITY (15) HTN (hypertension) Code(s): I10 - ESSENTIAL (PRIMARY) HYPERTENSION Assessment/Plan 56 year old gentleman with PMhx of Atrial fib, CAD s/p stents (on plavix), CVA with residual left sided weakness, IDDM, HTN, HLD, COPD, Anemia who presented from home with complaints of frequent urination and sob and admitted with acute on CHF and BUN/Cr of 31/1.5 (baseline Cr 1.3) The patient has PVD and is scheduled for By pass surgery later today. Some deterioation of azotemia noted ( Cr 2.2) , possibly Contrast induced Nephropathy. Will monitor the renal functions, especially now that he is scheduled for Vascular surgery. The renal functions are expected eventually to improve and settle at or near his baseline unless there are unexpected acute injuries. Will monitor with you. If significant blood loss occurs, should consider PRBC transfusion. Today's Hgb pending. Thank you. Susie Brooke MD
[2017-02-20 13:08] LABS: BASOPHIL 1.4 % (0-2.0); MCHC 33.3 g/dl (32.0-35.9); MEAN CELL VOLUME 93.2 fl (80-96); MEAN PLT VOLUME 8.9 fl (7.5-11.1); NEUTROPHILS 65.7 % (42.8-82.8); PLATELET COUNT 234 K/MM3 (134-434); RDW 14.1 % (11.9-15.9); WHITE BLOOD COUNT 5.5 K/mm3 (4.0-10.0)
[2017-02-20] MEDS ORDERED: LIDOCAINE HCL 1%, 10 MG/ML (20ML VIAL) ONE (14:06)
[2017-02-20] MEDS ORDERED: HEPARIN NA (PORCINE) 5,000 UNITS/ML 1ML VIAL ONE ×2 (14:06→16:56)
[2017-02-20] MEDS ORDERED: PROPOFOL 20 ML ONE ×2 (15:10)
[2017-02-20] MEDS ORDERED: LIDOCAINE HCL/PF 2% SDV 5ML VIAL ONE (15:10)
[2017-02-20] MEDS ORDERED: ROCURONIUM BROMIDE 50 MG/5 ML VIAL ONE ×2 (15:10→16:58)
[2017-02-20] MEDS ORDERED: MIDAZOLAM HCL 2 MG/2 ML SINGLE DOSE VIAL ONE (15:34)
[2017-02-20] MEDS ORDERED: ceFAZolin SODIUM 1 GM VIAL IVPB ONE (15:59)
[2017-02-20] MEDS ORDERED: ceFAZolin SODIUM 1 GM VIAL ONE ×2 (16:10→21:57)
[2017-02-20] MEDS ORDERED: ETOMIDATE 20 MG/10 ML AMPUL IVPUSH ONE (16:10)
[2017-02-20] MEDS ORDERED: DEXAMETHASONE SOD PHOSPHATE 4 MG/1 ML VIAL ONE (16:18)
[2017-02-20] MEDS ORDERED: ePHEDrine SULFATE 50 MG/1 ML AMPULE ONE (16:28)
[2017-02-20] MEDS ORDERED: THROMBIN (BOVINE) 5,000 UNIT VIAL TP ONE (17:20)
[2017-02-20] MEDS ORDERED: PROTAMINE SULFATE 50 MG/5 ML VIAL ONE (18:14)
[2017-02-20] MEDS ORDERED: POVIDONE-IODINE OINTMENT 10% - 28.4 GM TUBE ONE (18:25)
[2017-02-20] MEDS ORDERED: GLYCOPYRROLATE 0.2 MG/1 ML VIAL ONE (18:37)
[2017-02-20] MEDS ORDERED: NEOSTIGMINE METHYLSULFATE 0.5 MG/ML - 10 ML MDV ONE (18:37)
--- NOTE | 2017-02-20 18:54 | OP ---
Operative Note - Note: Operative Date: 02/20/17 Pre-Operative Diagnosis: Right leg ischemia Operation: Right femoral to above-knee popliteal bypass with PTFE. Angiiogram right iliac artery Findings: Thickened arterial davis with calcified plaque of popliteal Patent right iliac without severe stenosis. Implants: 8 mm ringed PTFE Post-Operative Diagnosis: Same as Pre-op Surgeon: Ze Humphrey Honest [employer] Crew Member: Mann Santos Anesthesiologist/GARBAGE PICK UP WORKER: Omar Edwards Anesthesia: General Estimated Blood Loss (mls): 250
[2017-02-20] MEDS ORDERED: ONDANSETRON 4 MG/2 ML VIAL IVPUSH PRN (18:59)
[2017-02-20] MEDS ORDERED: LACTATED RINGERS SOLUTION 1,000 ML IV SCH (19:00)
[2017-02-20] MEDS ORDERED: HYDROmorphone HCL CARPU-JECT 1 MG/1 ML DISP.SYRIN IVPB PRN (19:01)
[2017-02-20] MEDS ORDERED: ALBUTEROL SO4 0.083% IH SOL 2.5 MG/3 ML VIAL.NEB. NEB PRN (19:17)
[2017-02-20] MEDS ORDERED: ACETAMINOPHEN 325 MG TABLET (FP) PO PRN (19:17)
[2017-02-20 19:37] LABS: MCH 31.4 pg (25.7-33.7); MCHC 34.4 g/dl (32.0-35.9); MEAN CELL VOLUME 91.5 fl (80-96); MEAN PLT VOLUME 8.5 fl (7.5-11.1); PLATELET COUNT 228 K/MM3 (134-434); RDW 14.8 % (11.9-15.9); WHITE BLOOD COUNT 8.9 K/mm3 (4.0-10.0)
--- NOTE | 2017-02-20 19:51 | SURG ---
Surgery Supervisor Plastering Note Supervisor Plastering: Mann Santos PA-C Date of Service: 02/20/17 Diagnosis: Right leg ischemia Procedure: Right femoral to above-knee popliteal bypass with PTFE. Angiogram right iliac artery I was present for the entirety of the operative procedure. For further detail, please refer to operative report. Visit type - Case Type Case Type: Scheduled Admission - New patient This patient is new to me today: Yes Date on this admission: 02/20/17
--- NOTE | 2017-02-20 21:30 | CONSULT ---
Consult - text type - Consultation Consultation Note: [facility] Pt seen and examined in ICU CC: R leg pain, s/p fem-pop bypass with Dr Humphrey HPI: Briefly Mr Solis is a 56 yr old male, with past medical history of Afib, CAD s/p stents (on plavix), CVA with residual left sided weakness, IDDM, HTN, HLD, who presents to the emergency room BIBA for bilateral lower extremity swelling, chest discomfort, and SOB. He was admitted to surgical service 10 days ago, treated for PAD/caudication of R LE, seen for VANDA, underwent attempt at improving perfusion of RSFA with Angio on the of this month. Poor perfusion remained and today underwent right femoral to above-knee popliteal bypass with PTFE. Angiogram right iliac artery. Received 2PRBC in OR. Successfully extubated in PACU. Now for overnight observation in ICU.-marichuy Ambulatory Orders Glipizide [Glipizide ER] 5 mg PO DAILY 10/15/13 Amlodipine Besylate [Norvasc -] 5 mg PO DAILY 09/17/16 Clopidogrel Bisulfate [Plavix -] 75 mg PO DAILY 10/17/16 Carvedilol [Coreg -] 12.5 mg PO BID #60 tablet 10/24/16 Furosemide [Lasix -] 40 mg PO DAILY #30 tablet 01/24/17 Active Medications Acetaminophen (Tylenol -) 650 mg PO Q6H PRN PRN Reason: FEVER OR PAIN Acetaminophen (Tylenol -) 325 mg PO Q4H PRN PRN Reason: PAIN LEVEL 1-5 Albuterol Sulfate (Ventolin 0.083% Nebulizer Soln -) 1 amp NEB Q4H PRN PRN Reason: SHORT OF BREATH/WHEEZING Amlodipine Besylate (Norvasc -) 5 mg PO DAILY [facility] Aspirin (Asa -) 81 mg PO DAILY [facility] Carvedilol (Coreg -) 12.5 mg PO BID [facility] Clopidogrel Bisulfate (Plavix -) 75 mg PO DAILY [facility] Fentanyl (Sublimaze Injection -) 50 mcg IVPUSH [id number] PRN PRN Reason: PAIN Stop: 02/23/17 19:00 Glipizide (Glucotrol Xl -) 5 mg PO AM [facility] Heparin Sodium (Porcine) (Heparin -) 5,000 unit SQ BID [facility] Hydromorphone HCl (Dilaudid Injection -) 1 mg IVPB Q3H PRN PRN Reason: PAIN LEVEL 1-5 Lactated Ringer's (Lactated Ringers Solution) 1,000 mls @ 75 mls/hr IV ASDIR [facility] Last Admin: 02/20/17 20:45 Dose: 0 mls Cefazolin Sodium (Ancef 1 Gm Premixed Ivpb -) 50 mls @ 100 mls/hr IVPB Q8H-IV [facility] Stop: 02/21/17 21:59 Insulin Aspart (Novolog Vial Sliding Scale -) 1 vial SQ TIDAC [facility] PRN Reason: Protocol Nystatin (Nystop Powder -) 1 applic TP DAILY [facility] Ondansetron HCl (Zofran Injection) 4 mg IVPUSH Q6H PRN PRN Reason: NAUSEA AND/OR VOMITING Stop: 02/21/17 01:00 Tamsulosin HCl (Flomax -) 0.8 mg PO DAILY@0830 [facility] Tolnaftate (Tinactin 1% Powder -) 1 applic TP BID [facility] 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 Alcohol/Substance Use Hx Alcohol Use No Social History ADL Independent History of Recent Travel No Vital Signs Temp 98 F 02/20/17 21:34 Pulse 72 02/20/17 21:34 Resp 20 02/20/17 21:34 BP 136/63 02/20/17 21:34 Pulse Ox 94 L 02/20/17 20:45 Intake & Output 02/19/17 02/20/17 02/20/17 23:59 11:59 23:59 Intake Total 169 815 3075 Output Total 450 1800 650 Balance -230 -990 1350 Intake: IV 10 1300 SALINE LOCK 10 IVPB 0 Oral 220 800 0 Blood Product 700 Output: Urine 450 1800 400 Void 450 1800 Estimated Blood Loss 250 Other: Voiding Method Urinal Urinal Urinal # Unmeasured Voids Void 1 Bowel Movement No No # Bowel Movements 0 0 CBCD WBC 8.9 K/mm3 (4.0-10.0) D 02/20/17 19:30 RBC 3.28 M/mm3 (4.00-5.60) L 02/20/17 19:30 Hgb 10.3 GM/dL (11.7-16.9) L D 02/20/17 19:30 Hct 30.0 % (35.4-49) L 02/20/17 19:30 MCV 91.5 fl (80-96) 02/20/17 19: MCHC 34.4 g/dl (32.0-35.9) 02/20/17 19:30 RDW 14.8 % (11.9-15.9) 02/20/17: Plt Count 228 K/MM3 (134-434) 02/20/17 19: MPV 8.5 fl (7.5-11.1) 02/20/17 19:30 CMP Sodium 137 mmol/L (136-145) 02/20/17 06:00 Potassium 5.2 mmol/L (3.5-5.1) H 02/20/17 06:00 Chloride 105 mmol/L (98-107) 02/20/17 06:00 Carbon Dioxide 24 mmol/L (21-32) 02/20/17 06:00 Anion Gap 8 (8-16) 02/20/17 06:00 BUN 62 mg/dL (7-18) H 02/20/17 06:00 Creatinine 2.2 mg/dL (0.7-1.3) H 02/20/17 06:00 Creat Clearance w eGFR 30.90 (>60) 02/20/17 06:00 Calcium 8.1 mg/dL (8.5-10.1) L 02/20/17 06:00 Total Bilirubin 0.2 mg/dL (0.2-1.0) D 02/20/17 06:00 AST 9 U/L (15-37) L 02/20/17 06:00 ALT 16 U/L (12-78) 02/20/17 06:00 Alkaline Phosphatase 77 U/L (45-117) 02/20/17 06:00 Total Protein 5.9 g/dl (6.4-8.2) L 02/20/17 06:00 Albumin 2.4 g/dl (3.4-5.0) L 02/20/17 06:00 ROS: 10pt review negative except as per HPI. PE: GEN: awake, alert, non-toxic, poor historian PULM: clear anterior, no distress CV: RRR, no m/r/g appreciated ABD: soft, NT+ BS EXT: R groin site CDI, R DP pulse + 1 by feel, + doppler, Cap Refill < 2sec Neuro: no new deficit, has existing L sided deficit. A/ 56 y/o man with CAD and PAD now POD #0 after right femoral to above-knee popliteal bypass with PTFE and Angiiogram right iliac artery with stable operative course P/ -neuro and pulse checks of affected limb q2 -pain management, getting tylenol now, will add opiates -cardiac diet -coreg and norvasc -glucose control -received intra op abx, to receive 2 x more cefazolin -OOB as per surgery -to floor in am if stable and clear with Dr Lucrecia Childs ACNP [id number]
[2017-02-20] MEDS: ACETAMINOPHEN 325 MG TABLET (FP) PO PRN (21:59)
[2017-02-20] MEDS: HEPARIN NA (PORCINE) 5,000 UNITS/ML 1ML VIAL SQ SCH (21:59)
[2017-02-20] MEDS ORDERED: CEFAZOLIN (PRE-DOCKED) 50 ML IVPB SCH (22:00)
[2017-02-20] MEDS ORDERED: CEFAZOLIN 1 GM/D5W 50 ML IVPB SCH (22:00)
[2017-02-21] MEDS ORDERED: HEMOQUE TEST 1 EACH EACH ONE (05:24)
[2017-02-21 05:38] LABS: BASOPHIL 0.2 % (0-2.0); EOSINOPHIL 0.1 % (0-4.5); MCH 31.3 pg (25.7-33.7); MCHC 34.4 g/dl (32.0-35.9); MEAN CELL VOLUME 90.9 fl (80-96); NEUTROPHILS 90.7 % (42.8-82.8); PLATELET COUNT 224 K/MM3 (134-434); RDW 15.3 % (11.9-15.9); WHITE BLOOD COUNT 8.1 K/mm3 (4.0-10.0)
[2017-02-21 06:06] LABS: ALBUMIN 2.3 g/dl (3.4-5.0); ANION GAP 9 (8-16); BILIRUBIN,TOTAL 0.5 mg/dL (0.2-1.0); CALCIUM 7.6 mg/dL (8.5-10.1); CO2 23 mmol/L (21-32); CREATININE 2.2 mg/dL (0.7-1.3); SGOT/AST 7 U/L (15-37); SGPT/ALT 15 U/L (12-78); TOT PROT 5.9 g/dl (6.4-8.2)
[2017-02-21 06:07] LABS: ALK PHOS 70 U/L (45-117)
[2017-02-21] MEDS: glipiZIDE-XL 5 MG TAB.ER.24 PO SCH (06:22)
[2017-02-21] MEDS: INSULIN SLIDING SCALE (NOVOLOG) 1 VIAL SQ SCH ×3 (06:22→17:46)
[2017-02-21] MEDS ORDERED: PT OWN MED DRAWER 7, Y5N ONE ×2 (06:24→09:17)
[2017-02-21 06:28] LABS: GLUCOSE,RANDOM 314 mg/dL (74-106)
[2017-02-21] MEDS ORDERED: SODIUM POLYSTYRENE SULFONATE 15 GM/60 ML BOTTLE PO ONE (08:00)
--- NOTE | 2017-02-21 08:14 | PN ---
Progress Note (short form) - Note Progress Note: Post op day#1.S/P Right Fem-Pop bypass with RLL angiogram under [place] uneventful.P75,BP132/59 and Spo2 99% on o2 2L NC.Patient stable.No any anesthesia related problem.Patient DC from the anesthesia care.
[2017-02-21] MEDS: TAMSULOSIN HCL 0.4 MG CAP.ER.24H (FP) PO SCH (08:18)
--- NOTE | 2017-02-21 08:50 | PN ---
Progress Note, Physician Chief Complaint: S/p RLE bypass Alert, oriented K high, given Kayexalate TELE: NSR - Current Medication List Current Medications: Active Medications Acetaminophen (Tylenol -) 650 mg PO Q6H PRN PRN Reason: FEVER OR PAIN Last Admin: 02/20/17 21:59 Dose: 650 mg Acetaminophen (Tylenol -) 325 mg PO Q4H PRN PRN Reason: PAIN LEVEL 1-5 Albuterol Sulfate (Ventolin 0.083% Nebulizer Soln -) 1 amp NEB Q4H PRN PRN Reason: SHORT OF BREATH/WHEEZING Amlodipine Besylate (Norvasc -) 5 mg PO DAILY [facility] Aspirin (Asa -) 81 mg PO DAILY [facility] Carvedilol (Coreg -) 12.5 mg PO BID [facility] Last Admin: 02/20/17 21:59 Dose: 12.5 mg Clopidogrel Bisulfate (Plavix -) 75 mg PO DAILY [facility] Fentanyl (Sublimaze Injection -) 50 mcg IVPUSH [id number] PRN PRN Reason: PAIN Stop: 02/23/17 19:00 Last Admin: 02/20/17 20:02 Dose: 50 mcg Glipizide (Glucotrol Xl -) 5 mg PO AM [facility] Last Admin: 02/21/17 06:22 Dose: 5 mg Heparin Sodium (Porcine) (Heparin -) 5,000 unit SQ BID [facility] Last Admin: 02/20/17 21:59 Dose: 5,000 unit Hydromorphone HCl (Dilaudid Injection -) 1 mg IVPB Q3H PRN PRN Reason: PAIN LEVEL 1-5 Lactated Ringer's (Lactated Ringers Solution) 1,000 mls @ 75 mls/hr IV ASDIR [facility] Last Admin: 02/20/17 20:45 Dose: 0 mls Cefazolin Sodium (Ancef 1gm Ivpb (Pre-Docked)) 50 mls @ 100 mls/hr IVPB Q8H-IV TONYA Stop: 02/21/17 21:59 Last Admin: 02/21/17 05:51 Dose: 100 mls/hr Insulin Aspart (Novolog Vial Sliding Scale -) 1 vial SQ TIDAC TONYA PRN Reason: Protocol Last Admin: 02/21/17 06:22 Dose: 10 units Nystatin (Nystop Powder -) 1 applic TP DAILY [facility] Tamsulosin HCl (Flomax -) 0.8 mg PO DAILY@0830 [facility] Last Admin: 02/21/17 08:18 Dose: 0.8 mg Tolnaftate (Tinactin 1% Powder -) 1 applic TP BID [facility] Last Admin: 02/20/17 21:59 Dose: 1 applic - Objective Vital Signs: Vital Signs Temperature 97.8 F 02/21/17 06:00 Pulse Rate 84 02/21/17 08:00 Respiratory Rate 22 02/21/17 08:00 Blood Pressure 120/59 02/21/17 08:00 O2 Sat by Pulse Oximetry (%) 94 L 02/20/17 21:36 Constitutional: Yes: Calm Cardiovascular: Yes: Regular Rate and Rhythm Respiratory: Yes: CTA Bilaterally Gastrointestinal: Yes: Soft Edema: No Neurological: Yes: Alert Labs: CBC, BMP 02/21/17 05:00 02/21/17 05:00 INR, PTT INR 1.24 (0.82-1.09) H 02/19/17 06:00 - ....Imaging EKG: Image Reviewed Assessment/Plan Severe PAD s/p RLE bypass CAD s/p PCI Acute on chronic renal failure Hyperkalemia REC: Tolerated surgery well, hemodynamically stable in NSR. Continue ASA/Plavix. HyperK treated w/ Kayexalate by ICU team, would repeat labs later this morning.
--- NOTE | 2017-02-21 09:15 | PN ---
Progress Note (short form) - Note Progress Note: POD 1 VSS Wounds dry, foot warm, Strong DP doppler Cr. 2.2 Stable Continue ASA, plavix Problem List - Problems (1) PAD (peripheral artery disease) Code(s): I73.9 - PERIPHERAL VASCULAR DISEASE, UNSPECIFIED
[2017-02-21] MEDS: amLODIPine BESYLATE 5 MG TABLET (FP) PO SCH (09:50)
[2017-02-21] MEDS: CARVEDILOL 12.5 MG TABLET (FP) PO SCH ×2 (09:50→23:34)
[2017-02-21] MEDS: ASPIRIN 81 MG CHEWABLE TABLETS PO SCH (09:50)
[2017-02-21] MEDS: HEPARIN NA (PORCINE) 5,000 UNITS/ML 1ML VIAL SQ SCH ×2 (09:51→23:34)
[2017-02-21] MEDS: NYSTATIN POWDER 100,000 UNITS/GM - 15 GM TOPICAL POWDER TP SCH (09:55)
[2017-02-21] MEDS: TOLNAFTATE 1% POWDER 45 GM POW TP SCH ×2 (09:55→23:34)
--- NOTE | 2017-02-21 09:55 | PN ---
Progress Note, Physician Chief Complaint: POD #1 has pain in legs no SOB wants to get OOB - Current Medication List Current Medications: Active Medications Acetaminophen (Tylenol -) 650 mg PO Q6H PRN PRN Reason: FEVER OR PAIN Last Admin: 02/20/17 21:59 Dose: 650 mg Acetaminophen (Tylenol -) 325 mg PO Q4H PRN PRN Reason: PAIN LEVEL 1-5 Albuterol Sulfate (Ventolin 0.083% Nebulizer Soln -) 1 amp NEB Q4H PRN PRN Reason: SHORT OF BREATH/WHEEZING Amlodipine Besylate (Norvasc -) 5 mg PO DAILY [facility] Last Admin: 02/21/17 09:50 Dose: 5 mg Aspirin (Asa -) 81 mg PO DAILY [facility] Last Admin: 02/21/17 09:50 Dose: 81 mg Carvedilol (Coreg -) 12.5 mg PO BID [facility] Last Admin: 02/21/17 09:50 Dose: 12.5 mg Clopidogrel Bisulfate (Plavix -) 75 mg PO DAILY [facility] Fentanyl (Sublimaze Injection -) 50 mcg IVPUSH [id number] PRN PRN Reason: PAIN Stop: 02/23/17 19:00 Last Admin: 02/20/17 20:02 Dose: 50 mcg Glipizide (Glucotrol Xl -) 5 mg PO AM [facility] Last Admin: 02/21/17 06:22 Dose: 5 mg Heparin Sodium (Porcine) (Heparin -) 5,000 unit SQ BID [facility] Last Admin: 02/21/17 09:51 Dose: 5,000 unit Hydromorphone HCl (Dilaudid Injection -) 1 mg IVPB Q3H PRN PRN Reason: PAIN LEVEL 1-5 Lactated Ringer's (Lactated Ringers Solution) 1,000 mls @ 75 mls/hr IV ASDIR [facility] Last Admin: 02/20/17 20:45 Dose: 0 mls Cefazolin Sodium (Ancef 1gm Ivpb (Pre-Docked)) 50 mls @ 100 mls/hr IVPB ONCE ONE Stop: 02/21/17 14:29 Insulin Aspart (Novolog Vial Sliding Scale -) 1 vial SQ TIDAC [facility] PRN Reason: Protocol Last Admin: 02/21/17 06:22 Dose: 10 units Nystatin (Nystop Powder -) 1 applic TP DAILY [facility] Tamsulosin HCl (Flomax -) 0.8 mg PO DAILY@0830 [facility] Last Admin: 02/21/17 08:18 Dose: 0.8 mg Tolnaftate (Tinactin 1% Powder -) 1 applic TP BID [facility] Last Admin: 02/20/17 21:59 Dose: 1 applic - Objective Vital Signs: Vital Signs Temperature 97.8 F 02/21/17 06:00 Pulse Rate 84 02/21/17 08:00 Respiratory Rate 22 02/21/17 08:00 Blood Pressure 120/59 02/21/17 08:00 O2 Sat by Pulse Oximetry (%) 94 L 02/21/17 09:00 Constitutional: Yes: No Distress, Calm Cardiovascular: Yes: Regular Rate and Rhythm Respiratory: Yes: CTA Bilaterally Gastrointestinal: Yes: Normal Bowel Sounds, Soft, Abdomen, Obese. No: Distention, Tenderness Edema: Yes Labs: CBC, BMP 02/21/17 05:00 02/21/17 05:00 INR, PTT INR 1.24 (0.82-1.09) H 02/19/17 06:00 Problem List - Problems (1) ASHD (arteriosclerotic heart disease) Code(s): I25.10 - ATHSCL HEART DISEASE OF [place] CORONARY ARTERY W/O ANG PCTRS (2) CKD (chronic kidney disease) Code(s): N18.9 - CHRONIC KIDNEY DISEASE, UNSPECIFIED Qualifiers: Chronic kidney disease stage: unspecified stage Qualified Code(s): N18.9 - Chronic kidney disease, unspecified; N18.9 - Chronic kidney disease, unspecified (3) Diastolic CHF Code(s): I50.30 - UNSPECIFIED DIASTOLIC (CONGESTIVE) HEART FAILURE (4) PAD (peripheral artery disease) Code(s): I73.9 - PERIPHERAL VASCULAR DISEASE, UNSPECIFIED (5) Arterial insufficiency of lower extremity Code(s): I73.9 - PERIPHERAL VASCULAR DISEASE, UNSPECIFIED Assessment/Plan PLAN SFA occlusion--s/p bypass monitor BUN/Creatinine-- elevated today received Kayexalate this AM ICU monitoring HCT stable continue with meds c/w ASA and plavix DVT prophylaxis-- Heparin sc
[2017-02-21] MEDS ORDERED: SODIUM CHLORIDE 1,000 ML IV SCH (10:30)
--- NOTE | 2017-02-21 11:13 | PN ---
Progress Note, Physician Chief Complaint: The patient seen in ICU. S/P by pass surgery. foot warmer. The patient has some pains. Maintains good urine output. Ne fever. Was receiving lactated ringer's solution. - Current Medication List Current Medications: Active Medications Acetaminophen (Tylenol -) 650 mg PO Q6H PRN PRN Reason: FEVER OR PAIN Last Admin: 02/20/17 21:59 Dose: 650 mg Acetaminophen (Tylenol -) 325 mg PO Q4H PRN PRN Reason: PAIN LEVEL 1-5 Albuterol Sulfate (Ventolin 0.083% Nebulizer Soln -) 1 amp NEB Q4H PRN PRN Reason: SHORT OF BREATH/WHEEZING Amlodipine Besylate (Norvasc -) 5 mg PO DAILY [facility] Last Admin: 02/21/17 09:50 Dose: 5 mg Aspirin (Asa -) 81 mg PO DAILY [facility] Last Admin: 02/21/17 09:50 Dose: 81 mg Carvedilol (Coreg -) 12.5 mg PO BID [facility] Last Admin: 02/21/17 09:50 Dose: 12.5 mg Clopidogrel Bisulfate (Plavix -) 75 mg PO DAILY [facility] Fentanyl (Sublimaze Injection -) 50 mcg IVPUSH [id number] PRN PRN Reason: PAIN Stop: 02/23/17 19:00 Last Admin: 02/20/17 20:02 Dose: 50 mcg Glipizide (Glucotrol Xl -) 5 mg PO AM [facility] Last Admin: 02/21/17 06:22 Dose: 5 mg Heparin Sodium (Porcine) (Heparin -) 5,000 unit SQ BID [facility] Last Admin: 02/21/17 09:51 Dose: 5,000 unit Hydromorphone HCl (Dilaudid Injection -) 1 mg IVPB Q3H PRN PRN Reason: PAIN LEVEL 1-5 Cefazolin Sodium (Ancef 1gm Ivpb (Pre-Docked)) 50 mls @ 100 mls/hr IVPB ONCE ONE Stop: 02/21/17 14:29 Sodium Chloride (Normal Saline -) 1,000 mls @ 83 mls/hr IV ASDIR [facility] Last Admin: 02/21/17 10:48 Dose: 83 mls/hr Insulin Aspart (Novolog Vial Sliding Scale -) 1 vial SQ TIDAC [facility] PRN Reason: Protocol Last Admin: 02/21/17 10:49 Dose: 8 units Nystatin (Nystop Powder -) 1 applic TP DAILY [facility] Last Admin: 02/21/17 09:55 Dose: 1 applic Tamsulosin HCl (Flomax -) 0.8 mg PO DAILY@0830 [facility] Last Admin: 02/21/17 08:18 Dose: 0.8 mg Tolnaftate (Tinactin 1% Powder -) 1 applic TP BID [facility] Last Admin: 02/21/17 09:55 Dose: 1 applic - Objective Vital Signs: Vital Signs Temperature 98.3 F 02/21/17 10:51 Pulse Rate 78 02/21/17 10:51 Respiratory Rate 22 02/21/17 10:51 Blood Pressure 141/62 02/21/17 10:51 O2 Sat by Pulse Oximetry (%) 94 L 02/21/17 09:00 Constitutional: Yes: Calm, Mild Distress Eyes: Yes: Conjunctiva Clear HENT: Yes: Normocephalic Cardiovascular: Yes: Regular Rate and Rhythm, S1, S2 Respiratory: Yes: Regular, Diminished Gastrointestinal: Yes: Normal Bowel Sounds, Soft Extremities: Yes: Other (s/p fem pop by pass surgery) Labs: CBC, BMP 02/21/17 05:00 02/21/17 05:00 INR, PTT INR 1.24 (0.82-1.09) H 02/19/17 06:00 Problem List - Problems (1) ASHD (arteriosclerotic heart disease) Code(s): I25.10 - ATHSCL HEART DISEASE OF [place] CORONARY ARTERY W/O ANG PCTRS (2) Arterial insufficiency of lower extremity Code(s): I73.9 - PERIPHERAL VASCULAR DISEASE, UNSPECIFIED (3) CKD (chronic kidney disease) Code(s): N18.9 - CHRONIC KIDNEY DISEASE, UNSPECIFIED Qualifiers: Chronic kidney disease stage: unspecified stage Qualified Code(s): N18.9 - Chronic kidney disease, unspecified; N18.9 - Chronic kidney disease, unspecified (4) Chronic stable angina Code(s): I20.8 - OTHER FORMS OF ANGINA PECTORIS (5) Diabetic neuropathy Code(s): E11.40 - TYPE 2 DIABETES MELLITUS WITH DIABETIC NEUROPATHY, UNSP Qualifiers: Diabetes mellitus type: due to underlying condition (6) Diastolic CHF Code(s): I50.30 - UNSPECIFIED DIASTOLIC (CONGESTIVE) HEART FAILURE (7) Hyperlipidemia Code(s): E78.5 - HYPERLIPIDEMIA, UNSPECIFIED (8) IDDM (insulin dependent diabetes mellitus) Code(s): E11.9 - TYPE 2 DIABETES MELLITUS WITHOUT COMPLICATIONS Z79.4 - STAFF CONSULTANT (CURRENT) USE OF INSULIN (9) Lower back pain Code(s): M54.5 - LOW BACK PAIN (10) Acute renal insufficiency Code(s): N28.9 - DISORDER OF KIDNEY AND URETER, UNSPECIFIED (11) Bacteremia Code(s): R78.81 - BACTEREMIA (12) CAD (coronary artery disease) Code(s): I25.10 - ATHSCL HEART DISEASE OF [place] CORONARY ARTERY W/O ANG PCTRS Qualifiers: Coronary Disease-Associated Artery/Lesion type: [place] artery [place] vs. transplanted heart: [place] heart Associated angina: without angina Qualified Code(s): I25.10 - Atherosclerotic heart disease of [place] coronary artery without angina pectoris; I25.10 - Atherosclerotic heart disease of [place] coronary artery without angina pectoris; I25.10 - Atherosclerotic heart disease of [place] coronary artery without angina pectoris (13) Diabetes Code(s): E11.9 - TYPE 2 DIABETES MELLITUS WITHOUT COMPLICATIONS Qualifiers: Diabetes mellitus type: type 2 Diabetes mellitus complication detail: with nephropathy (14) Diabetic foot ulcer Code(s): E11.621 - TYPE 2 DIABETES MELLITUS WITH FOOT ULCER L97.509 - NON-PRESSURE CHRONIC ULCER OTH PRT UNSP FOOT W UNSP SEVERITY (15) HTN (hypertension) Code(s): I10 - ESSENTIAL (PRIMARY) HYPERTENSION Assessment/Plan 56 year old gentleman with PMhx of Atrial fib, CAD s/p stents (on plavix), CVA with residual left sided weakness, IDDM, HTN, HLD, COPD, Anemia who presented from home with complaints of frequent urination and sob and admitted with acute on CHF and BUN/Cr of 31/1.5 (baseline Cr 1.3) The patient has PVD and had Fem-pop by passs surgery . Maintains good urine output. Hyperkalemia, partly from Lactated ringers, hyperglycemia and tissue damage. The VANDA that is attributable to the RENATO is expected to slowly improve over time. The renal functions are expected eventually to improve and settle at or near his baseline unless there are unexpected acute injuries. Kayexelate given. Will monitor the serum K. If adequate oral hydration is established, can DC IV fluids. Thank you. Susie Brooke MD
--- NOTE | 2017-02-21 11:20 | PN ---
Teaching Attending Note Name of Resident: Kassidy Hendricks ATTENDING PHYSICIAN STATEMENT I saw and evaluated the patient. I reviewed the resident's note and discussed the case with the resident. I agree with the resident's findings and plan as documented. SUBJECTIVE: Patient seen and examined in the ICU. Awake and alert. Discomfort at the surgical site. (+) Doppler pulse. Seen by vascular this AM. Noted hyper kalemia of 6.1. Given 30gm kayexalate. No CP or SOB. Intake & Output 02/18/17 02/19/17 02/20/17 02/21/17 23:59 23:59 23:59 23:59 Intake Total 2391 071 3598 850 Output Total 750 2450 800 Balance 1000 -180 560 50 Weight 195 lb 1.745 oz Last Vital Signs Temp Pulse Resp BP Pulse Ox 98.3 F 78 22 141/62 94 L 02/21/17 10:51 02/21/17 10:51 02/21/17 10:51 02/21/17 10:51 02/21/17 09:00 Active Medications Acetaminophen (Tylenol -) 650 mg PO Q6H PRN PRN Reason: FEVER OR PAIN Last Admin: 02/20/17 21:59 Dose: 650 mg Acetaminophen (Tylenol -) 325 mg PO Q4H PRN PRN Reason: PAIN LEVEL 1-5 Albuterol Sulfate (Ventolin 0.083% Nebulizer Soln -) 1 amp NEB Q4H PRN PRN Reason: SHORT OF BREATH/WHEEZING Amlodipine Besylate (Norvasc -) 5 mg PO DAILY [facility] Last Admin: 02/21/17 09:50 Dose: 5 mg Aspirin (Asa -) 81 mg PO DAILY [facility] Last Admin: 02/21/17 09:50 Dose: 81 mg Carvedilol (Coreg -) 12.5 mg PO BID [facility] Last Admin: 02/21/17 09:50 Dose: 12.5 mg Clopidogrel Bisulfate (Plavix -) 75 mg PO DAILY [facility] Fentanyl (Sublimaze Injection -) 50 mcg IVPUSH [id number] PRN PRN Reason: PAIN Stop: 02/23/17 19:00 Last Admin: 02/20/17 20:02 Dose: 50 mcg Glipizide (Glucotrol Xl -) 5 mg PO AM [facility] Last Admin: 02/21/17 06:22 Dose: 5 mg Heparin Sodium (Porcine) (Heparin -) 5,000 unit SQ BID [facility] Last Admin: 02/21/17 09:51 Dose: 5,000 unit Hydromorphone HCl (Dilaudid Injection -) 1 mg IVPB Q3H PRN PRN Reason: PAIN LEVEL 1-5 Cefazolin Sodium (Ancef 1gm Ivpb (Pre-Docked)) 50 mls @ 100 mls/hr IVPB ONCE ONE Stop: 02/21/17 14:29 Sodium Chloride (Normal Saline -) 1,000 mls @ 83 mls/hr IV ASDIR [facility] Last Admin: 02/21/17 10:48 Dose: 83 mls/hr Insulin Aspart (Novolog Vial Sliding Scale -) 1 vial SQ TIDAC [facility] PRN Reason: Protocol Last Admin: 02/21/17 10:49 Dose: 8 units Nystatin (Nystop Powder -) 1 applic TP DAILY [facility] Last Admin: 02/21/17 09:55 Dose: 1 applic Tamsulosin HCl (Flomax -) 0.8 mg PO DAILY@0830 [facility] Last Admin: 02/21/17 08:18 Dose: 0.8 mg Tolnaftate (Tinactin 1% Powder -) 1 applic TP BID [facility] Last Admin: 02/21/17 09:55 Dose: 1 applic GEN: awake, alert, NAD PULM: clear anterior, no distress CV: RRR ABD: soft, NT+ BS EXT: R groin site CDI, (+) PP / warm Neuro: no new deficit, has existing L sided deficit. Laboratory Results - last 24 hr 02/18/17 02/20/17 02/20/17 12:35 11:39 13:00 WBC 5.5 RBC 2.81 L Hgb 8.7 L Hct 26.2 L MCV 93.2 MCH 31.0 MCHC 33.3 RDW 14.1 Plt Count 234 MPV 8.9 Neutrophils % 65.7 Lymphocytes % 15.0 Monocytes % 10.9 H Eosinophils % 7.0 H Basophils % 1.4 Sodium Potassium Chloride Carbon Dioxide Anion Gap BUN Creatinine Creat Clearance w eGFR POC Glucometer 156 Random Glucose Calcium Total Bilirubin AST ALT Alkaline Phosphatase Total Protein Albumin Blood Type O POSITIVE Antibody Screen Negative Crossmatch See Detail Crossmatch IS Only See Detail 02/20/17 02/21/17 02/21/17 19:30 05:00 05:00 WBC 8.9 D 8.1 RBC 3.28 L 3.16 L Hgb 10.3 L D 9.9 L Hct 30.0 L 28.7 L MCV 91.5 90.9 MCH 31.4 31.3 MCHC 34.4 34.4 RDW 14.8 15.3 Plt Count 228 224 MPV 8.5 9.0 Neutrophils % 90.7 H D Lymphocytes % 4.4 L D Monocytes % 4.6 Eosinophils % 0.1 D Basophils % 0.2 Sodium 135 L Potassium 6.1 H* Chloride 103 Carbon Dioxide 23 Anion Gap 9 BUN 64 H Creatinine 2.2 H Creat Clearance w eGFR 30.90 POC Glucometer Random Glucose 314 H* D Calcium 7.6 L Total Bilirubin 0.5 D AST 7 L D ALT 15 Alkaline Phosphatase 70 Total Protein 5.9 L Albumin 2.3 L Blood Type Antibody Screen Crossmatch Crossmatch IS Only 02/21/17 02/21/17 05:31 10:47 WBC RBC Hgb Hct MCV MCH MCHC RDW Plt Count MPV Neutrophils % Lymphocytes % Monocytes % Eosinophils % Basophils % Sodium Potassium Chloride Carbon Dioxide Anion Gap BUN Creatinine Creat Clearance w eGFR POC Glucometer [phone] Random Glucose Calcium Total Bilirubin AST ALT Alkaline Phosphatase Total Protein Albumin Blood Type Antibody Screen Crossmatch Crossmatch IS Only IMP: POD #1 : Right femoral to above-knee popliteal bypass with PTFE and Angiogram right iliac artery CAD PAD Smoker CKD Hyperkalemia PLAN: Doppler checks ASA/Plavix O2 as needed BD TX Pain control PO as tolerated Glycemic control Cefazolin ordered for 2 additional doses Incentive Spirometry ICU monitoring Dr Park Critical care time spent in reviewing chart, evaluating patient and formulating plan - 36 minutes.
[2017-02-21] MEDS ORDERED: ONDANSETRON 4 MG/2 ML VIAL IVPUSH PRN (12:02)
--- NOTE | 2017-02-21 12:03 | PN ---
Physical Exam: SUBJECTIVE: Patient seen and examined no acute events overnight. POD#1Right femoral to above-knee popliteal bypass with PTFE and Angiogram right iliac artery. C/o nausea after breakfast. Vomited x1 brown consistency, NBNB. Denies fever, chills, abdominal pain, diarrhea, constipation. Found to have elevated K this am , was given kayexelate. EKG no T wave changes. States he wants to get OOB to chair. OBJECTIVE: Vital Signs Period Temp Pulse Resp BP Sys/Fuentes Pulse Ox Last 24 Hr 97.0 F-98.3 F 66-85 11-22 113-144/31- 94-99 GENERAL: The patient is awake, alert, and fully oriented, in no acute distress. HEAD: Normal with no signs of trauma. EYES: PERRL, extraocular movements intact, sclera anicteric, conjunctiva clear. No ptosis. ENT: Ears normal, nares patent, oropharynx clear without exudates, moist mucous membranes. NECK: Trachea midline, full range of motion, supple. LUNGS: Breath sounds equal, clear to auscultation bilaterally, no wheezes, no crackles, no accessory muscle use. HEART: Regular rate and rhythm, S1, S2 without murmur, rub or gallop. ABDOMEN: obese,Soft, nontender, nondistended, normoactive bowel sounds, no guarding, no rebound, no hepatosplenomegaly, no masses. EXTREMITIES: 2+ pulses, warm, well-perfused, no edema. Right LE incision with emilie; draining small amt of blood thru gauze. NEUROLOGICAL: Cranial nerves II through XII grossly intact. Normal speech, gait not observed. PSYCH: Normal mood, normal affect. SKIN: Warm, dry, normal turgor, no rashes or lesions noted Laboratory Results - last 24 hr 02/18/17 02/20/17 02/20/17 12:35 13:00 19:30 WBC 5.5 8.9 D RBC 2.81 L 3.28 L Hgb 8.7 L 10.3 L D Hct 26.2 L 30.0 L MCV 93.2 91.5 MCH 31.0 31.4 MCHC 33.3 34.4 RDW 14.1 14.8 Plt Count 234 228 MPV 8.9 8.5 Neutrophils % 65.7 Lymphocytes % 15.0 Monocytes % 10.9 H Eosinophils % 7.0 H Basophils % 1.4 Sodium Potassium Chloride Carbon Dioxide Anion Gap BUN Creatinine Creat Clearance w eGFR POC Glucometer Random Glucose Calcium Total Bilirubin AST ALT Alkaline Phosphatase Total Protein Albumin Blood Type O POSITIVE Antibody Screen Negative Crossmatch See Detail Crossmatch IS Only See Detail 02/21/17 02/21/17 02/21/17 05:00 05:00 05:31 WBC 8.1 RBC 3.16 L Hgb 9.9 L Hct 28.7 L MCV 90.9 MCH 31.3 MCHC 34.4 RDW 15.3 Plt Count 224 MPV 9.0 Neutrophils % 90.7 H D Lymphocytes % 4.4 L D Monocytes % 4.6 Eosinophils % 0.1 D Basophils % 0.2 Sodium 135 L Potassium 6.1 H* Chloride 103 Carbon Dioxide 23 Anion Gap 9 BUN 64 H Creatinine 2.2 H Creat Clearance w eGFR 30.90 POC Glucometer [phone] Random Glucose 314 H* D Calcium 7.6 L Total Bilirubin 0.5 D AST 7 L D ALT 15 Alkaline Phosphatase 70 Total Protein 5.9 L Albumin 2.3 L Blood Type Antibody Screen Crossmatch Crossmatch IS Only 02/21/17 10:47 WBC RBC Hgb Hct MCV MCH MCHC RDW Plt Count MPV Neutrophils % Lymphocytes % Monocytes % Eosinophils % Basophils % Sodium Potassium Chloride Carbon Dioxide Anion Gap BUN Creatinine Creat Clearance w eGFR POC Glucometer [phone] Random Glucose Calcium Total Bilirubin AST ALT Alkaline Phosphatase Total Protein Albumin Blood Type Antibody Screen Crossmatch Crossmatch IS Only Active Medications Generic Name Dose Route Start Last Admin Trade Name Freq PRN Reason Stop Dose Admin Acetaminophen 650 mg 02/20/17 19:17 02/20/17 21:59 Tylenol - PO 650 mg Q6H PRN Administration FEVER OR PAIN Acetaminophen 325 mg 02/20/17 19:17 Tylenol - PO Q4H PRN PAIN LEVEL 1-5 Albuterol Sulfate 1 amp 02/20/17 19:17 Ventolin 0.083% Nebulizer Soln - NEB Q4H PRN SHORT OF BREATH/WHEEZING Amlodipine Besylate 5 mg 02/21/17 10:00 02/21/17 09:50 Norvasc - PO 5 mg DAILY TONYA Administration Aspirin 81 mg 02/21/17 10:00 02/21/17 09:50 Asa - PO 81 mg DAILY TONYA Administration Carvedilol 12.5 mg 02/20/17 22:00 02/21/17 09:50 Coreg - PO 12.5 mg BID TONYA Administration Clopidogrel Bisulfate 75 mg 02/22/17 10:00 Plavix - PO DAILY TONYA Fentanyl 50 mcg 02/20/17 18:59 02/20/17 20:02 Sublimaze Injection - IVPUSH 02/23/17 19:00 50 mcg [id number] PRN Administration PAIN Glipizide 5 mg 02/21/17 07:00 02/21/17 06:22 Glucotrol Xl - PO 5 mg AM TONYA Administration Heparin Sodium (Porcine) 5,000 unit 02/20/17 22:00 02/21/17 09:51 Heparin - SQ 5,000 unit BID TONYA Administration Hydromorphone HCl 1 mg 02/20/17 19:01 Dilaudid Injection - IVPB Q3H PRN PAIN LEVEL 1-5 Cefazolin Sodium 50 mls @ 100 mls/hr 02/21/17 14:00 Ancef 1gm Ivpb (Pre-Docked) IVPB 02/21/17 14:29 ONCE ONE Sodium Chloride 1,000 mls @ 83 mls/hr 02/21/17 10:30 02/21/17 10:48 Normal Saline - IV 83 mls/hr ASDIR TONYA Administration Insulin Aspart 1 vial 02/21/17 07:00 02/21/17 10:49 Novolog Vial Sliding Scale - SQ 8 units TIDAC TONYA Administration Protocol Nystatin 1 applic 02/21/17 10:00 02/21/17 09:55 Nystop Powder - TP 1 applic DAILY TONYA Administration Ondansetron HCl 4 mg 02/21/17 12:02 Zofran Injection IVPUSH Q4H PRN NAUSEA AND/OR VOMITING Tamsulosin HCl 0.8 mg 02/21/17 08:30 02/21/17 08:18 Flomax - PO 0.8 mg DAILY@0830 TONYA Administration Tolnaftate 1 applic 02/20/17 22:00 02/21/17 09:55 Tinactin 1% Powder - TP 1 applic BID TONYA Administration ASSESSMENT/PLAN: 56 year old male with CAD, PAD, CKD, chronic tobacco use, presented with right leg pain after walking short distances, admitted for right femoral to above- knee popliteal bypass. POD #1. #Peripheral arterial disease: -POD #1 Right femoral to above-knee popliteal bypass with PTFE and Angiogram right iliac artery: -Doppler checks -cont cefazolin for 3 doses 24hrs post op -pain controlled with Tylenol -vascular following #CAD: -continue aspirin and plavix #Diabetes mellitus type II: -insulin SS -BGM #nausea and vomiting- -denies abdominal pain /d -has not had BM -4mg zofran IVP q4h prn -re eval; hold feed #hyperkalemia: -K 6.1 today: -d/c lactated ringer -kayexelate given; -no ecg t wave changes -anjali K at 2pm #Tobacco use: -counselled on smoking cessation -willing to quit in future -will try nicotine patch once more clinically stable #acute on chronic CKD: most likely secondary contrast nephropathy -trend Cr -gentle fluid hydration -f/u UA Disposition: Cont ICU monitoring Problem List - Problems (1) ASHD (arteriosclerotic heart disease) Code(s): I25.10 - ATHSCL HEART DISEASE OF [place] CORONARY ARTERY W/O ANG PCTRS (2) Arterial insufficiency of lower extremity Code(s): I73.9 - PERIPHERAL VASCULAR DISEASE, UNSPECIFIED (3) CKD (chronic kidney disease) Code(s): N18.9 - CHRONIC KIDNEY DISEASE, UNSPECIFIED Qualifiers: Chronic kidney disease stage: unspecified stage Qualified Code(s): N18.9 - Chronic kidney disease, unspecified; N18.9 - Chronic kidney disease, unspecified (4) Diastolic CHF Code(s): I50.30 - UNSPECIFIED DIASTOLIC (CONGESTIVE) HEART FAILURE (5) CAD (coronary artery disease) Code(s): I25.10 - ATHSCL HEART DISEASE OF [place] CORONARY ARTERY W/O ANG PCTRS Qualifiers: Coronary Disease-Associated Artery/Lesion type: [place] artery [place] vs. transplanted heart: [place] heart Associated angina: without angina Qualified Code(s): I25.10 - Atherosclerotic heart disease of [place] coronary artery without angina pectoris; I25.10 - Atherosclerotic heart disease of [place] coronary artery without angina pectoris; I25.10 - Atherosclerotic heart disease of [place] coronary artery without angina pectoris (6) Chronic renal insufficiency Code(s): N18.9 - CHRONIC KIDNEY DISEASE, UNSPECIFIED (7) Diabetes 1.5, managed as type 1 Code(s): E10.9 - TYPE 1 DIABETES MELLITUS WITHOUT COMPLICATIONS (8) HTN (hypertension) Code(s): I10 - ESSENTIAL (PRIMARY) HYPERTENSION (9) Hyperkalemia Code(s): E87.5 - HYPERKALEMIA (10) PAD (peripheral artery disease) Code(s): I73.9 - PERIPHERAL VASCULAR DISEASE, UNSPECIFIED Visit type - Emergency Visit Emergency Visit: Yes ED Registration Date: 02/08/17 Care time: The patient presented to the Emergency Department on the above date and was hospitalized for further evaluation of their emergent condition. - New Patient This patient is new to me today: Yes Date on this admission: 02/21/17 - Critical Care Critical Care patient: Yes Total Critical Care Time (in minutes): 36 Critical Care Statement: The care of this patient involved high complexity decision making to prevent further life threatening deterioration of the patient 's condition and/or to evaluate & treat vital organ system(s) failure or risk of failure.
[2017-02-21] MEDS: ACETAMINOPHEN 325 MG TABLET (FP) PO PRN (12:07)
[2017-02-21] MEDS ORDERED: CEFAZOLIN (PRE-DOCKED) 50 ML IVPB ONE (14:00)
[2017-02-21 14:57] LABS: ANION GAP 6 (8-16); CALCIUM 8.2 mg/dL (8.5-10.1); CO2 27 mmol/L (21-32); CREATININE 2.1 mg/dL (0.7-1.3); GLUCOSE,RANDOM 160 mg/dL (74-106)
[2017-02-21] MEDS ORDERED: METOCLOPRAMIDE HCL INJECTION 10 MG/2 ML VIAL IVPUSH PRN (14:58)
[2017-02-21] MEDS: PANTOPRAZOLE SODIUM 40 MG VIAL IVPUSH SCH ×2 (17:46→23:34)
[2017-02-21 18:54] LABS: ANION GAP 11 (8-16); CALCIUM 8.2 mg/dL (8.5-10.1); CO2 24 mmol/L (21-32); GLUCOSE,RANDOM 162 mg/dL (74-106)
[2017-02-21 18:57] LABS: CPK 77 IU/L (39-308); TROPONIN I < 0.02 ng/ml (0.00-0.05)
--- NOTE | 2017-02-21 20:10 | EKG ---
Test Reason : Blood Pressure : / mmHG Vent. Rate : 073 BPM Atrial Rate : 073 BPM P-R Int : 190 ms QRS Dur : 144 ms QT Int : 426 ms P-R-T Axes : 064 -55 045 degrees QTc Int : 469 ms NORMAL SINUS RHYTHM RIGHT BUNDLE BRANCH BLOCK LEFT ANTERIOR FASCICULAR BLOCK BIFASCICULAR BLOCK ABNORMAL ECG WHEN COMPARED WITH ECG OF 08-FEB-2017 20:29, T WAVES ARE NOW FLAT IN aVL Confirmed by MERCED VIVAR MD ([id number] on 02/21/2017 8:09:48 PM Referred By: CONSUELO BREWSTER Confirmed By:MERCED VIVAR MD
[2017-02-22 06:05] LABS: BASOPHIL 0.3 % (0-2.0); EOSINOPHIL 0.8 % (0-4.5); MCH 31.8 pg (25.7-33.7); MCHC 35.2 g/dl (32.0-35.9); MEAN CELL VOLUME 90.3 fl (80-96); MEAN PLT VOLUME 8.7 fl (7.5-11.1); NEUTROPHILS 81.5 % (42.8-82.8); PLATELET COUNT 222 K/MM3 (134-434); RDW 14.9 % (11.9-15.9); WHITE BLOOD COUNT 8.5 K/mm3 (4.0-10.0)
[2017-02-22 06:43] LABS: ALBUMIN 2.3 g/dl (3.4-5.0); ALK PHOS 61 U/L (45-117); ANION GAP 11 (8-16); BILIRUBIN,TOTAL 0.2 mg/dL (0.2-1.0); CALCIUM 7.7 mg/dL (8.5-10.1); CO2 24 mmol/L (21-32); CREATININE 1.8 mg/dL (0.7-1.3); GLUCOSE,RANDOM 112 mg/dL (74-106); SGOT/AST 8 U/L (15-37); SGPT/ALT 12 U/L (12-78); TOT PROT 5.4 g/dl (6.4-8.2)
[2017-02-22] MEDS: INSULIN SLIDING SCALE (NOVOLOG) 1 VIAL SQ SCH ×2 (06:43→17:24)
[2017-02-22] MEDS ORDERED: PT OWN MED DRAWER 7, Y5N ONE ×2 (06:43→12:00)
[2017-02-22] MEDS: glipiZIDE-XL 5 MG TAB.ER.24 PO SCH (06:44)
--- NOTE | 2017-02-22 07:26 | PN ---
Progress Note (short form) - Note Progress Note: POD #2 Alert. Resting in position of comfort. Hasn't been OOB as he's been on strict bedrest for past two days. Yesterday, pt c/o some nausea after breakfast. Per RN notes, he Vomited x1 (non-bloody, non-bilious). Yesterdays labs indicated elevated K. He was given kayexelate. EKG no T wave changes. Feels much better this morning. Denies n/v/f/c, CP or SOB. Last Vital Signs Temp Pulse Resp BP Pulse Ox 98.2 F 80 13 122/55 98 10 06:00 02/22/17 06:00 02/22/17 06:00 02/22/17 06:00 02/21/17 21:00 CBC, BMP 02/22/17 05:00 02/22/17 05:00 GEN: Alert. NAD. ABD: Obese body habitus. RLE: groin and thigh incisions emilie intact. No palpable hematoma. No oozing. No erythema. Warm all the way to his toes. + dopplerable pulses Problem List - Problems (1) Arterial insufficiency of lower extremity Assessment/Plan: POD #2 s/p RLE femoral to above knee popliteal bypass with PTFE graft 1. Monitor H/H 2. OOB to chair 3. Diet as tolerated 4. Dressing changed on rounds 5. Can downgrade to floor today 6. Above plan discussed with Dr. Humphrey and agrees Code(s): I73.9 - PERIPHERAL VASCULAR DISEASE, UNSPECIFIED
--- NOTE | 2017-02-22 08:37 | PN ---
Physical Exam: SUBJECTIVE: Patient seen and examined POD #2 Right femoral to above-knee popliteal bypass; doing well, nausea and chest discomfort has subsided. Troponin negative x2. Denies chest pain, shortness of breath, abdominal pain, vomiting. D/c/ bruce.IVF today. Creatinine improving. OBJECTIVE: Vital Signs Period Temp Pulse Resp BP Sys/Fuentes Pulse Ox Last 24 Hr 97.6 F-99.0 F 70-98 13-23 115-162/52-74 94-98 GENERAL: The patient is awake, alert, and fully oriented, in no acute distress. HEAD: Normal with no signs of trauma. EYES: PERRL, extraocular movements intact, sclera anicteric, conjunctiva clear. No ptosis. ENT: Ears normal, nares patent, oropharynx clear without exudates, moist mucous membranes. NECK: Trachea midline, full range of motion, supple. LUNGS: Breath sounds equal, clear to auscultation bilaterally, no wheezes, no crackles, no accessory muscle use. HEART: Regular rate and rhythm, S1, S2 without murmur, rub or gallop. ABDOMEN: Soft, nontender, nondistended, normoactive bowel sounds, no guarding, no rebound, no hepatosplenomegaly, no masses. EXTREMITIES: 2+ pulses, warm, well-perfused, no edema. RLE incision clean, dry intact, no oozing of blood today NEUROLOGICAL: Cranial nerves II through XII grossly intact. Normal speech, gait not observed. PSYCH: Normal mood, normal affect. SKIN: Warm, dry, normal turgor, no rashes or lesions noted Laboratory Results - last 24 hr 02/18/17 02/21/17 02/21/17 12:35 10:47 13:35 WBC RBC Hgb Hct MCV MCH MCHC RDW Plt Count MPV Neutrophils % Lymphocytes % Monocytes % Eosinophils % Basophils % Sodium 138 Potassium 5.1 Chloride 105 Carbon Dioxide 27 Anion Gap 6 L BUN 61 H Creatinine 2.1 H Creat Clearance w eGFR POC Glucometer [phone] Random Glucose 160 H D Calcium 8.2 L Total Bilirubin AST ALT Alkaline Phosphatase Creatine Kinase Troponin I Total Protein Albumin Blood Type O POSITIVE Antibody Screen Negative Crossmatch See Detail Crossmatch IS Only See Detail 02/21/17 02/21/17 02/22/17 17:00 17:07 05:00 WBC 8.5 RBC 2.74 L Hgb 8.7 L D Hct 24.8 L MCV 90.3 MCH 31.8 MCHC 35.2 RDW 14.9 Plt Count 222 MPV 8.7 Neutrophils % 81.5 Lymphocytes % 7.8 L D Monocytes % 9.6 D Eosinophils % 0.8 D Basophils % 0.3 Sodium 139 Potassium 5.1 Chloride 104 Carbon Dioxide 24 Anion Gap 11 BUN 65 H Creatinine 2.0 H Creat Clearance w eGFR POC Glucometer [phone] Random Glucose 162 H Calcium 8.2 L Total Bilirubin AST ALT Alkaline Phosphatase Creatine Kinase 77 Troponin I < 0.02 D Total Protein Albumin Blood Type Antibody Screen Crossmatch Crossmatch IS Only 02/22/17 02/22/17 05:00 06:06 WBC RBC Hgb Hct MCV MCH MCHC RDW Plt Count MPV Neutrophils % Lymphocytes % Monocytes % Eosinophils % Basophils % Sodium 142 Potassium 4.7 Chloride 107 Carbon Dioxide 24 Anion Gap 11 BUN 55 H Creatinine 1.8 H Creat Clearance w eGFR 38.95 POC Glucometer [phone] Random Glucose 112 H D Calcium 7.7 L Total Bilirubin 0.2 D AST 8 L ALT 12 Alkaline Phosphatase 61 Creatine Kinase Troponin I Total Protein 5.4 L Albumin 2.3 L Blood Type Antibody Screen Crossmatch Crossmatch IS Only Active Medications Generic Name Dose Route Start Last Admin Trade Name Freq PRN Reason Stop Dose Admin Acetaminophen 650 mg 02/20/17 19:17 02/21/17 12:07 Tylenol - PO 650 mg Q6H PRN Administration FEVER OR PAIN Acetaminophen 325 mg 02/20/17 19:17 Tylenol - PO Q4H PRN PAIN LEVEL 1-5 Albuterol Sulfate 1 amp 02/20/17 19:17 Ventolin 0.083% Nebulizer Soln - NEB Q4H PRN SHORT OF BREATH/WHEEZING Amlodipine Besylate 5 mg 02/21/17 10:00 02/21/17 09:50 Norvasc - PO 5 mg DAILY TONYA Administration Aspirin 81 mg 02/21/17 10:00 02/21/17 09:50 Asa - PO 81 mg DAILY TONYA Administration Carvedilol 12.5 mg 02/20/17 22:00 02/21/17 23:34 Coreg - PO 12.5 mg BID TONYA Administration Clopidogrel Bisulfate 75 mg 02/22/17 10:00 Plavix - PO DAILY TONYA Fentanyl 50 mcg 02/20/17 18:59 02/20/17 20:02 Sublimaze Injection - IVPUSH 02/23/17 19:00 50 mcg [id number] PRN Administration PAIN Glipizide 5 mg 02/21/17 07:00 02/22/17 06:44 Glucotrol Xl - PO 5 mg AM TONYA Administration Heparin Sodium (Porcine) 5,000 unit 02/20/17 22:00 02/21/17 23:34 Heparin - SQ 5,000 unit BID TONYA Administration Hydromorphone HCl 1 mg 02/20/17 19:01 02/21/17 23:34 Dilaudid Injection - IVPB 1 mg Q3H PRN Administration PAIN LEVEL 1-5 Sodium Chloride 1,000 mls @ 83 mls/hr 02/21/17 10:30 02/21/17 10:48 Normal Saline - IV 83 mls/hr ASDIR TONYA Administration Insulin Aspart 1 vial 02/21/17 07:00 02/22/17 06:43 Novolog Vial Sliding Scale - SQ Not Given TIDAC [facility] Protocol Metoclopramide HCl 10 mg 02/21/17 14:58 02/21/17 15:25 Reglan Injection - IVPUSH 10 mg Q6H PRN Administration NAUSEA AND/OR VOMITING Nystatin 1 applic 02/21/17 10:00 02/21/17 09:55 Nystop Powder - TP 1 applic DAILY TONYA Administration Pantoprazole Sodium 40 mg 02/22/17 10:00 Protonix - PO DAILY TONYA Tamsulosin HCl 0.8 mg 02/21/17 08:30 02/21/17 08:18 Flomax - PO 0.8 mg DAILY@0830 TONYA Administration Tolnaftate 1 applic 02/20/17 22:00 02/21/17 23:34 Tinactin 1% Powder - TP 1 applic BID TONYA Administration ASSESSMENT/PLAN: 56 year old male with CAD, PAD, CKD, chronic tobacco use, presented with right leg pain after walking short distances, admitted for right femoral to above- knee popliteal bypass. POD #2. #Peripheral arterial disease: -POD #2 Right femoral to above-knee popliteal bypass with PTFE and Angiogram right iliac artery: -pedal pulses b/l -pain controlled with Tylenol -OOB -vascular following #CAD: -continue aspirin and plavix #Diabetes mellitus type II: -insulin SS -BGM #nausea and vomiting- resolved -cont protonix 40mg po daily #hyperkalemia: resolved #Tobacco use: -counselled on smoking cessation -willing to quit in future -will try nicotine patch once more clinically stable #acute on chronic CKD: most likely secondary contrast nephropathy: resolving -trend Cr -d.c IVF: po intake -d/c bruce #normocytic anemia: looks to br chronic from previous visits: -s/p surgery -trend cbc -transfuse in <7.0 -iron studies -denies melena; bbb FEN: po intake Electrolytes: wnl Diet: diabetic Dispo: transfer to floors Problem List - Problems (1) ASHD (arteriosclerotic heart disease) Code(s): I25.10 - ATHSCL HEART DISEASE OF [place] CORONARY ARTERY W/O ANG PCTRS (2) Arterial insufficiency of lower extremity Code(s): I73.9 - PERIPHERAL VASCULAR DISEASE, UNSPECIFIED (3) CKD (chronic kidney disease) Code(s): N18.9 - CHRONIC KIDNEY DISEASE, UNSPECIFIED Qualifiers: Chronic kidney disease stage: unspecified stage Qualified Code(s): N18.9 - Chronic kidney disease, unspecified; N18.9 - Chronic kidney disease, unspecified (4) Diastolic CHF Code(s): I50.30 - UNSPECIFIED DIASTOLIC (CONGESTIVE) HEART FAILURE (5) CAD (coronary artery disease) Code(s): I25.10 - ATHSCL HEART DISEASE OF [place] CORONARY ARTERY W/O ANG PCTRS Qualifiers: Coronary Disease-Associated Artery/Lesion type: [place] artery [place] vs. transplanted heart: [place] heart Associated angina: without angina Qualified Code(s): I25.10 - Atherosclerotic heart disease of [place] coronary artery without angina pectoris; I25.10 - Atherosclerotic heart disease of [place] coronary artery without angina pectoris; I25.10 - Atherosclerotic heart disease of [place] coronary artery without angina pectoris (6) Chronic renal insufficiency Code(s): N18.9 - CHRONIC KIDNEY DISEASE, UNSPECIFIED (7) Diabetes 1.5, managed as type 1 Code(s): E10.9 - TYPE 1 DIABETES MELLITUS WITHOUT COMPLICATIONS (8) HTN (hypertension) Code(s): I10 - ESSENTIAL (PRIMARY) HYPERTENSION (9) Hyperkalemia Code(s): E87.5 - HYPERKALEMIA (10) PAD (peripheral artery disease) Code(s): I73.9 - PERIPHERAL VASCULAR DISEASE, UNSPECIFIED Visit type - Emergency Visit Emergency Visit: Yes ED Registration Date: 02/08/17 Care time: The patient presented to the Emergency Department on the above date and was hospitalized for further evaluation of their emergent condition. - New Patient This patient is new to me today: No - Critical Care Critical Care patient: Yes Total Critical Care Time (in minutes): 37 Critical Care Statement: The care of this patient involved high complexity decision making to prevent further life threatening deterioration of the patient 's condition and/or to evaluate & treat vital organ system(s) failure or risk of failure.
--- NOTE | 2017-02-22 08:49 | PN ---
Progress Note, Physician Chief Complaint: alert, oriented TELE: NSR States he had episode chest pain yesterday lasting one hr ECG unchanged TnI - x1 - Current Medication List Current Medications: Active Medications Acetaminophen (Tylenol -) 650 mg PO Q6H PRN PRN Reason: FEVER OR PAIN Last Admin: 02/21/17 12:07 Dose: 650 mg Acetaminophen (Tylenol -) 325 mg PO Q4H PRN PRN Reason: PAIN LEVEL 1-5 Albuterol Sulfate (Ventolin 0.083% Nebulizer Soln -) 1 amp NEB Q4H PRN PRN Reason: SHORT OF BREATH/WHEEZING Amlodipine Besylate (Norvasc -) 5 mg PO DAILY [facility] Last Admin: 02/21/17 09:50 Dose: 5 mg Aspirin (Asa -) 81 mg PO DAILY [facility] Last Admin: 02/21/17 09:50 Dose: 81 mg Carvedilol (Coreg -) 12.5 mg PO BID [facility] Last Admin: 02/21/17 23:34 Dose: 12.5 mg Clopidogrel Bisulfate (Plavix -) 75 mg PO DAILY [facility] Fentanyl (Sublimaze Injection -) 50 mcg IVPUSH [id number] PRN PRN Reason: PAIN Stop: 02/23/17 19:00 Last Admin: 02/20/17 20:02 Dose: 50 mcg Glipizide (Glucotrol Xl -) 5 mg PO AM [facility] Last Admin: 02/22/17 06:44 Dose: 5 mg Heparin Sodium (Porcine) (Heparin -) 5,000 unit SQ BID [facility] Last Admin: 02/21/17 23:34 Dose: 5,000 unit Hydromorphone HCl (Dilaudid Injection -) 1 mg IVPB Q3H PRN PRN Reason: PAIN LEVEL 1-5 Last Admin: 02/21/17 23:34 Dose: 1 mg Sodium Chloride (Normal Saline -) 1,000 mls @ 83 mls/hr IV ASDIR [facility] Last Admin: 02/21/17 10:48 Dose: 83 mls/hr Insulin Aspart (Novolog Vial Sliding Scale -) 1 vial SQ TIDAC [facility] PRN Reason: Protocol Last Admin: 02/22/17 06:43 Dose: Not Given Metoclopramide HCl (Reglan Injection -) 10 mg IVPUSH Q6H PRN PRN Reason: NAUSEA AND/OR VOMITING Last Admin: 02/21/17 15:25 Dose: 10 mg Nystatin (Nystop Powder -) 1 applic TP DAILY [facility] Last Admin: 02/21/17 09:55 Dose: 1 applic Pantoprazole Sodium (Protonix -) 40 mg PO DAILY [facility] Tamsulosin HCl (Flomax -) 0.8 mg PO DAILY@0830 [facility] Last Admin: 02/21/17 08:18 Dose: 0.8 mg Tolnaftate (Tinactin 1% Powder -) 1 applic TP BID [facility] Last Admin: 02/21/17 23:34 Dose: 1 applic - Objective Vital Signs: Vital Signs Temperature 98.2 F 02/22/17 06:00 Pulse Rate 80 02/22/17 06:00 Respiratory Rate 13 02/22/17 06:00 Blood Pressure 122/55 02/22/17 06:00 O2 Sat by Pulse Oximetry (%) 98 02/21/17 21:00 Constitutional: Yes: Calm Cardiovascular: Yes: Regular Rate and Rhythm Respiratory: Yes: CTA Bilaterally Gastrointestinal: Yes: Soft Edema: Yes Edema: LLE: 1+, RLE: 1+ Neurological: Yes: Alert, Oriented Labs: CBC, BMP 02/22/17 05:00 02/22/17 05:00 INR, PTT INR 1.24 (0.82-1.09) H 02/19/17 06:00 Laboratory Tests 02/14/17 02/14/17 02/14/17 06:50 06:50 08:24 WBC 7.2 Hgb 8.4 L Plt Count 194 Sodium Pending Potassium Pending BUN 49 H Creatinine 2.2 H Random Glucose Calcium Creatine Kinase Troponin I 02/15/17 02/21/17 02/21/17 06:00 05:00 05:00 WBC 8.1 Hgb 9.9 L Plt Count 224 Sodium Pending 135 L Potassium Pending 6.1 H* BUN Pending 64 H Creatinine Pending 2.2 H Random Glucose 314 H* D Calcium 7.6 L Creatine Kinase Troponin I 02/21/17 02/22/17 02/22/17 17:00 05:00 05:00 WBC 8.5 Hgb 8.7 L D Plt Count 222 Sodium 142 Potassium 4.7 BUN 55 H Creatinine 1.8 H Random Glucose Calcium Creatine Kinase 77 Troponin I < 0.02 D - ....Imaging EKG: Image Reviewed Assessment/Plan Assessment/Plan Severe PAD s/p RLE bypass CAD s/p PCI Acute on chronic renal failure REC: Tolerated surgery well, hemodynamically stable in NSR. Continue ASA/Plavix. Repeat cardiac enzymes today.
[2017-02-22] MEDS: HEPARIN NA (PORCINE) 5,000 UNITS/ML 1ML VIAL SQ SCH ×2 (09:17→23:26)
[2017-02-22] MEDS: amLODIPine BESYLATE 5 MG TABLET (FP) PO SCH (09:18)
[2017-02-22] MEDS: TAMSULOSIN HCL 0.4 MG CAP.ER.24H (FP) PO SCH (09:18)
[2017-02-22] MEDS: ASPIRIN 81 MG CHEWABLE TABLETS PO SCH (09:18)
[2017-02-22] MEDS: NYSTATIN POWDER 100,000 UNITS/GM - 15 GM TOPICAL POWDER TP SCH (09:19)
[2017-02-22] MEDS: CARVEDILOL 12.5 MG TABLET (FP) PO SCH ×2 (09:19→23:26)
[2017-02-22] MEDS: TOLNAFTATE 1% POWDER 45 GM POW TP SCH ×2 (09:20→23:26)
--- NOTE | 2017-02-22 09:28 | PN ---
Progress Note, Physician Chief Complaint: was vomiting yesterday No SOB has abdominal aching he vomited Kayexalate - Current Medication List Current Medications: Active Medications Acetaminophen (Tylenol -) 650 mg PO Q6H PRN PRN Reason: FEVER OR PAIN Last Admin: 02/21/17 12:07 Dose: 650 mg Acetaminophen (Tylenol -) 325 mg PO Q4H PRN PRN Reason: PAIN LEVEL 1-5 Albuterol Sulfate (Ventolin 0.083% Nebulizer Soln -) 1 amp NEB Q4H PRN PRN Reason: SHORT OF BREATH/WHEEZING Amlodipine Besylate (Norvasc -) 5 mg PO DAILY [facility] Last Admin: 02/22/17 09:18 Dose: 5 mg Aspirin (Asa -) 81 mg PO DAILY [facility] Last Admin: 02/22/17 09:18 Dose: 81 mg Carvedilol (Coreg -) 12.5 mg PO BID [facility] Last Admin: 02/22/17 09:19 Dose: 12.5 mg Clopidogrel Bisulfate (Plavix -) 75 mg PO DAILY [facility] Last Admin: 02/22/17 09:18 Dose: 75 mg Fentanyl (Sublimaze Injection -) 50 mcg IVPUSH [id number] PRN PRN Reason: PAIN Stop: 02/23/17 19:00 Last Admin: 02/20/17 20:02 Dose: 50 mcg Glipizide (Glucotrol Xl -) 5 mg PO AM [facility] Last Admin: 02/22/17 06:44 Dose: 5 mg Heparin Sodium (Porcine) (Heparin -) 5,000 unit SQ BID [facility] Last Admin: 02/22/17 09:17 Dose: 5,000 unit Hydromorphone HCl (Dilaudid Injection -) 1 mg IVPB Q3H PRN PRN Reason: PAIN LEVEL 1-5 Last Admin: 02/21/17 23:34 Dose: 1 mg Sodium Chloride (Normal Saline -) 1,000 mls @ 83 mls/hr IV ASDIR [facility] Last Admin: 02/21/17 10:48 Dose: 83 mls/hr Insulin Aspart (Novolog Vial Sliding Scale -) 1 vial SQ TIDAC [facility] PRN Reason: Protocol Last Admin: 02/22/17 06:43 Dose: Not Given Metoclopramide HCl (Reglan Injection -) 10 mg IVPUSH Q6H PRN PRN Reason: NAUSEA AND/OR VOMITING Last Admin: 02/21/17 15:25 Dose: 10 mg Nystatin (Nystop Powder -) 1 applic TP DAILY [facility] Last Admin: 02/22/17 09:19 Dose: 1 applic Pantoprazole Sodium (Protonix -) 40 mg PO DAILY [facility] Tamsulosin HCl (Flomax -) 0.8 mg PO DAILY@0830 [facility] Last Admin: 02/22/17 09:18 Dose: 0.8 mg Tolnaftate (Tinactin 1% Powder -) 1 applic TP BID [facility] Last Admin: 02/22/17 09:20 Dose: 1 applic - Objective Vital Signs: Vital Signs Temperature 98.2 F 02/22/17 06:00 Pulse Rate 80 02/22/17 06:00 Respiratory Rate 13 02/22/17 06:00 Blood Pressure 122/55 02/22/17 06:00 O2 Sat by Pulse Oximetry (%) 98 02/21/17 21:00 Constitutional: Yes: No Distress, Calm Cardiovascular: Yes: Regular Rate and Rhythm Respiratory: Yes: Diminished Gastrointestinal: Yes: Normal Bowel Sounds, Soft, Abdomen, Obese, Distention. No: Tenderness Edema: Yes Labs: CBC, BMP 02/22/17 05:00 02/22/17 05:00 INR, PTT INR 1.24 (0.82-1.09) H 02/19/17 06:00 Problem List - Problems (1) ASHD (arteriosclerotic heart disease) Code(s): I25.10 - ATHSCL HEART DISEASE OF [place] CORONARY ARTERY W/O ANG PCTRS (2) CKD (chronic kidney disease) Code(s): N18.9 - CHRONIC KIDNEY DISEASE, UNSPECIFIED Qualifiers: Chronic kidney disease stage: unspecified stage Qualified Code(s): N18.9 - Chronic kidney disease, unspecified; N18.9 - Chronic kidney disease, unspecified (3) Diastolic CHF Code(s): I50.30 - UNSPECIFIED DIASTOLIC (CONGESTIVE) HEART FAILURE (4) PAD (peripheral artery disease) Code(s): I73.9 - PERIPHERAL VASCULAR DISEASE, UNSPECIFIED (5) Arterial insufficiency of lower extremity Code(s): I73.9 - PERIPHERAL VASCULAR DISEASE, UNSPECIFIED Assessment/Plan PLAN SFA occlusion--s/p bypass monitor BUN/Creatinine-- better today potassium better check KUB ICU monitoring continue with meds c/w ASA and plavix DVT prophylaxis-- Heparin sc
[2017-02-22] MEDS ORDERED: SODIUM CHLORIDE 1,000 ML IV SCH ×2 (09:34→14:13)
[2017-02-22] MEDS ORDERED: HYDROmorphone HCL CARPU-JECT 1 MG/1 ML DISP.SYRIN IVPB PRN (09:34)
[2017-02-22] MEDS ORDERED: METOCLOPRAMIDE HCL INJECTION 10 MG/2 ML VIAL IVPUSH PRN ×2 (09:34→14:13)
[2017-02-22] MEDS ORDERED: ALBUTEROL SO4 0.083% IH SOL 2.5 MG/3 ML VIAL.NEB. NEB PRN ×2 (09:34→14:13)
[2017-02-22] MEDS ORDERED: ACETAMINOPHEN 325 MG TABLET (FP) PO PRN ×4 (09:34→14:13)
[2017-02-22 09:43] LABS: CPK 84 IU/L (39-308); TROPONIN I < 0.02 ng/ml (0.00-0.05)
[2017-02-22] MEDS ORDERED: HEPARIN NA (PORCINE) 5,000 UNITS/ML 1ML VIAL SQ SCH (10:00)
[2017-02-22] MEDS ORDERED: ASPIRIN 81 MG CHEWABLE TABLETS PO SCH (10:00)
[2017-02-22] MEDS ORDERED: CLOPIDOGREL BISULFATE 75 MG TABLET (FP) PO SCH ×2 (10:00)
[2017-02-22] MEDS ORDERED: CARVEDILOL 12.5 MG TABLET (FP) PO SCH (10:00)
[2017-02-22] MEDS ORDERED: amLODIPine BESYLATE 5 MG TABLET (FP) PO SCH (10:00)
[2017-02-22] MEDS ORDERED: PANTOPRAZOLE 40 MG TABLET (FP) PO SCH ×2 (10:00)
--- NOTE | 2017-02-22 10:30 | PN ---
Progress Note, Physician Chief Complaint: The patient seen in ICU. Seems comfortable. S/P by pass surgery. Had vomited yesterday. Tolerates food well. Had been on bed. Will get out of bed. History of Present Illness: 56 year old gentleman with PMhx of Atrial fib, CAD s/p stents (on plavix), CVA with residual left sided weakness, IDDM, HTN, HLD, COPD, Anemia who presented from home with complaints of frequent urination and sob and admitted with acute on CHF and BUN/Cr of 31/1.5 (baseline Cr 1.3) - Current Medication List Current Medications: Active Medications Acetaminophen (Tylenol -) 650 mg PO Q6H PRN PRN Reason: FEVER OR PAIN Acetaminophen (Tylenol -) 325 mg PO Q4H PRN PRN Reason: PAIN LEVEL 1-5 Albuterol Sulfate (Ventolin 0.083% Nebulizer Soln -) 1 amp NEB Q4H PRN PRN Reason: SHORT OF BREATH/WHEEZING Amlodipine Besylate (Norvasc -) 5 mg PO DAILY [facility] Aspirin (Asa -) 81 mg PO DAILY [facility] Carvedilol (Coreg -) 12.5 mg PO BID [facility] Clopidogrel Bisulfate (Plavix -) 75 mg PO DAILY [facility] Fentanyl (Sublimaze Injection -) 50 mcg IVPUSH [id number] PRN PRN Reason: PAIN Stop: 02/23/17 19:00 Glipizide (Glucotrol Xl -) 5 mg PO AM [facility] Heparin Sodium (Porcine) (Heparin -) 5,000 unit SQ BID [facility] Hydromorphone HCl (Dilaudid Injection -) 1 mg IVPB Q3H PRN PRN Reason: PAIN LEVEL 1-5 Sodium Chloride (Normal Saline -) 1,000 mls @ 83 mls/hr IV ASDIR [facility] Insulin Aspart (Novolog Vial Sliding Scale -) 1 vial SQ TIDAC [facility] PRN Reason: Protocol Metoclopramide HCl (Reglan Injection -) 10 mg IVPUSH Q6H PRN PRN Reason: NAUSEA AND/OR VOMITING Nystatin (Nystop Powder -) 1 applic TP DAILY [facility] Pantoprazole Sodium (Protonix -) 40 mg PO DAILY [facility] Tamsulosin HCl (Flomax -) 0.8 mg PO DAILY@0830 [facility] Tolnaftate (Tinactin 1% Powder -) 1 applic TP BID [facility] - Objective Vital Signs: Vital Signs Temperature 98.2 F 02/22/17 06:00 Pulse Rate 80 02/22/17 06:00 Respiratory Rate 13 02/22/17 06:00 Blood Pressure 122/55 02/22/17 06:00 O2 Sat by Pulse Oximetry (%) 98 02/21/17 21:00 Constitutional: Yes: Calm, Mild Distress, Pallor Eyes: Yes: Conjunctiva Clear HENT: Yes: Normocephalic Neck: Yes: Trachea Midline Cardiovascular: Yes: S1, S2 Respiratory: Yes: Regular, Diminished Gastrointestinal: Yes: Normal Bowel Sounds, Soft Genitourinary: Yes: Smith Present. No: CVA Tenderness - Left, CVA Tenderness - Right Neurological: Yes: Alert Labs: CBC, BMP 02/22/17 05:00 02/22/17 05:00 INR, PTT INR 1.24 (0.82-1.09) H 02/19/17 06:00 Problem List - Problems (1) ASHD (arteriosclerotic heart disease) Code(s): I25.10 - ATHSCL HEART DISEASE OF [place] CORONARY ARTERY W/O ANG PCTRS (2) Arterial insufficiency of lower extremity Code(s): I73.9 - PERIPHERAL VASCULAR DISEASE, UNSPECIFIED (3) CKD (chronic kidney disease) Code(s): N18.9 - CHRONIC KIDNEY DISEASE, UNSPECIFIED Qualifiers: Chronic kidney disease stage: unspecified stage Qualified Code(s): N18.9 - Chronic kidney disease, unspecified; N18.9 - Chronic kidney disease, unspecified (4) Chronic stable angina Code(s): I20.8 - OTHER FORMS OF ANGINA PECTORIS (5) Diabetic neuropathy Code(s): E11.40 - TYPE 2 DIABETES MELLITUS WITH DIABETIC NEUROPATHY, UNSP Qualifiers: Diabetes mellitus type: due to underlying condition (6) Diastolic CHF Code(s): I50.30 - UNSPECIFIED DIASTOLIC (CONGESTIVE) HEART FAILURE (7) Hyperlipidemia Code(s): E78.5 - HYPERLIPIDEMIA, UNSPECIFIED (8) IDDM (insulin dependent diabetes mellitus) Code(s): E11.9 - TYPE 2 DIABETES [place]LL[place]US WITHOUT COMPLICATIONS Z79.4 - ASSISTED (CURRENT) USE OF INSULIN (9) Lower back pain Code(s): M54.5 - LOW BACK PAIN (10) Acute renal insufficiency Code(s): N28.9 - DISORDER OF KIDNEY AND URETER, UNSPECIFIED (11) Bacteremia Code(s): R78.81 - BACTEREMIA (12) CAD (coronary artery disease) Code(s): I25.10 - ATHSCL HEART DISEASE OF [place] CORONARY ARTERY W/O ANG PCTRS Qualifiers: Coronary Disease-Associated Artery/Lesion type: [place] artery [place] vs. transplanted heart: [place] heart Associated angina: without angina Qualified Code(s): I25.10 - Atherosclerotic heart disease of [place] coronary artery without angina pectoris; I25.10 - Atherosclerotic heart disease of [place] coronary artery without angina pectoris; I25.10 - Atherosclerotic heart disease of [place] coronary artery without angina pectoris (13) Diabetes Code(s): E11.9 - TYPE 2 DIABETES MELL[place]US WITHOUT COMPLICATIONS Qualifiers: Diabetes mellitus type: type 2 Diabetes mellitus complication detail: with nephropathy (14) Diabetic foot ulcer Code(s): E11.621 - TYPE 2 DIABETES [place] WITH FOOT ULCER L97.509 - NON-PRESSURE CHRONIC ULCER OTH PRT UNSP FOOT W UNSP SEVERITY (15) HTN (hypertension) Code(s): I10 - ESSENTIAL (PRIMARY) HYPERTENSION Assessment/Plan 56 year old gentleman with PMhx of Atrial fib, CAD s/p stents (on plavix), CVA with residual left sided weakness, IDDM, HTN, HLD, COPD, Anemia who presented from home with complaints of frequent urination and sob and admitted with acute on CHF and BUN/Cr of 31/1.5 (baseline Cr 1.3) The patient has PVD and had Fem-pop by passs surgery . Maintains good urine output. Hyperkalemia. Resolved. Renal functions are expected eventually to improve and settle at or near his baseline unless there are unexpected acute injuries. Plan: ANTONETTE Smith DC IV fluids Thank you. Susie Brooke MD
[2017-02-22] MEDS ORDERED: INSULIN SLIDING SCALE (NOVOLOG) 1 VIAL SQ SCH (11:00)
--- NOTE | 2017-02-22 11:10 | PN ---
Teaching Attending Note Name of Resident: Kassidy Hendricks ATTENDING PHYSICIAN STATEMENT I saw and evaluated the patient. I reviewed the resident's note and discussed the case with the resident. I agree with the resident's findings and plan as documented. SUBJECTIVE: Patient seen and examined in the ICU. Awake and alert. Less discomfort at the surgical site. (+) Doppler pulse. Seen by vascular PA this AM. Hyperkalemia improving. Reported CP yesterday: CE are (-) thus far. Intake & Output 02/19/17 02/20/17 02/21/17 02/22/17 23:59 23:59 23:59 23:59 Intake Total 570 3010 1832 996 Output Total 750 2450 2250 600 Balance -180 560 -418 396 Weight 195 lb 1.745 oz 190 lb 11.2 oz Last Vital Signs Temp Pulse Resp BP Pulse Ox 98.2 F 80 13 122/55 98 02/22/17 06:00 02/22/17 06:00 02/22/17 09:00 02/22/17 06:00 02/21/17 21:00 Active Medications Acetaminophen (Tylenol -) 650 mg PO Q6H PRN PRN Reason: FEVER OR PAIN Last Admin: 02/22/17 10:40 Dose: 650 mg Acetaminophen (Tylenol -) 325 mg PO Q4H PRN PRN Reason: PAIN LEVEL 1-5 Albuterol Sulfate (Ventolin 0.083% Nebulizer Soln -) 1 amp NEB Q4H PRN PRN Reason: SHORT OF BREATH/WHEEZING Amlodipine Besylate (Norvasc -) 5 mg PO DAILY [facility] Aspirin (Asa -) 81 mg PO DAILY [facility] Carvedilol (Coreg -) 12.5 mg PO BID [facility] Clopidogrel Bisulfate (Plavix -) 75 mg PO DAILY [facility] Fentanyl (Sublimaze Injection -) 50 mcg IVPUSH [id number] PRN PRN Reason: PAIN Stop: 02/23/17 19:00 Glipizide (Glucotrol Xl -) 5 mg PO AM [facility] Heparin Sodium (Porcine) (Heparin -) 5,000 unit SQ BID [facility] Hydromorphone HCl (Dilaudid Injection -) 1 mg IVPB Q3H PRN PRN Reason: PAIN LEVEL 1-5 Sodium Chloride (Normal Saline -) 1,000 mls @ 83 mls/hr IV ASDIR [facility] Insulin Aspart (Novolog Vial Sliding Scale -) 1 vial SQ TIDAC [facility] PRN Reason: Protocol Metoclopramide HCl (Reglan Injection -) 10 mg IVPUSH Q6H PRN PRN Reason: NAUSEA AND/OR VOMITING Nystatin (Nystop Powder -) 1 applic TP DAILY [facility] Pantoprazole Sodium (Protonix -) 40 mg PO DAILY [facility] Tamsulosin HCl (Flomax -) 0.8 mg PO DAILY@0830 [facility] Tolnaftate (Tinactin 1% Powder -) 1 applic TP BID [facility] GEN: awake, alert, NAD PULM: clear anterior, no distress CV: RRR ABD: soft, NT+ BS EXT: R groin site CDI, (+) PP / warm Neuro: no new deficit, has existing L sided deficit. Laboratory Results - last 24 hr 02/18/17 02/21/17 02/21/17 12:35 13:35 17:00 WBC RBC Hgb Hct MCV MCH MCHC RDW Plt Count MPV Neutrophils % Lymphocytes % Monocytes % Eosinophils % Basophils % Sodium 138 139 Potassium 5.1 5.1 Chloride 105 104 Carbon Dioxide 27 24 Anion Gap 6 L 11 BUN 61 H 65 H Creatinine 2.1 H 2.0 H Creat Clearance w eGFR POC Glucometer Random Glucose 160 H D 162 H Calcium 8.2 L 8.2 L Total Bilirubin AST ALT Alkaline Phosphatase Creatine Kinase 77 Troponin I < 0.02 D Total Protein Albumin Blood Type O POSITIVE Antibody Screen Negative Crossmatch See Detail Crossmatch IS Only See Detail 02/21/17 02/22/17 02/22/17 17:07 05:00 05:00 WBC 8.5 RBC 2.74 L Hgb 8.7 L D Hct 24.8 L MCV 90.3 MCH 31.8 MCHC 35.2 RDW 14.9 Plt Count 222 MPV 8.7 Neutrophils % 81.5 Lymphocytes % 7.8 L D Monocytes % 9.6 D Eosinophils % 0.8 D Basophils % 0.3 Sodium 142 Potassium 4.7 Chloride 107 Carbon Dioxide 24 Anion Gap 11 BUN 55 H Creatinine 1.8 H Creat Clearance w eGFR 38.95 POC Glucometer 201.25522 Random Glucose 112 H D Calcium 7.7 L Total Bilirubin 0.2 D AST 8 L ALT 12 Alkaline Phosphatase 61 Creatine Kinase Troponin I Total Protein 5.4 L Albumin 2.3 L Blood Type Antibody Screen Crossmatch Crossmatch IS Only 02/22/17 02/22/17 06:06 08:50 WBC RBC Hgb Hct MCV MCH MCHC RDW Plt Count MPV Neutrophils % Lymphocytes % Monocytes % Eosinophils % Basophils % Sodium Potassium Chloride Carbon Dioxide Anion Gap BUN Creatinine Creat Clearance w eGFR POC Glucometer 150.57626 Random Glucose Calcium Total Bilirubin AST ALT Alkaline Phosphatase Creatine Kinase 84 Troponin I < 0.02 Total Protein Albumin Blood Type Antibody Screen Crossmatch Crossmatch IS Only IMP: POD #2 : Right femoral to above-knee popliteal bypass with PTFE and Angiogram right iliac artery CAD PAD Smoker CKD Hyperkalemia PLAN: Doppler checks ASA/Plavix O2 as needed BD TX Pain control PO as tolerated Glycemic control Incentive Spirometry Floor Dr [place] Critical care time spent in reviewing chart, evaluating patient and formulating plan - 36 minutes.
[2017-02-22] MEDS ORDERED: NYSTATIN POWDER 100,000 UNITS/GM - 15 GM TOPICAL POWDER TP SCH (11:45)
[2017-02-22] MEDS ORDERED: TOLNAFTATE 1% POWDER 45 GM POW TP SCH (12:00)
--- NOTE | 2017-02-22 14:12 | OP ---
DATE OF OPERATION: 02/20/2017 SURGEON: Ze Humphrey MD NUTRITIONAL HEALTH COACH: CINDY Godoy PROCEDURE: Right femoral to above-knee popliteal bypass with polytetrafluoroethylene graft. Angiogram of the right iliac artery. PREOPERATIVE DIAGNOSIS: Ischemia of the right foot. POSTOPERATIVE DIAGNOSIS: Ischemia of the right foot. ANESTHESIA: General. ANESTHESIOLOGIST: Omra Edwards MD OPERATIVE FINDINGS: There was dense atherosclerotic plaque within the femoral and popliteal arteries. Angiogram of the iliac artery did not reveal a severe stenosis as suggested by the previous study. OPERATIVE PROCEDURE: Following routine patient identification with site and side verification, general anesthesia was induced. A Smith catheter was placed. The right leg and groin were prepped with ChloraPrep. Time-out was performed. An incision was made in the right groin over the femoral pulse. Subcutaneous tissues were divided using cautery for hemostasis. The femoral artery was identified. The inguinal ligament dissected and secured with a vessel loop. Distal dissection was extended down to the bifurcation. The deepened superficial femoral branches were individually secured with vessel loops. Small side branches were ligated with silk ties and divided. The wound was packed with moist gauze. A second incision was then made on the medial aspect of the lower thigh and carried down to subcutaneous tissues using cautery for hemostasis. Care was taken not to disturb the saphenous vein. The muscle fascia was incised. The popliteal space was entered, and there was dense scarring identified between the muscle and the fascia. The artery was identified and then carefully mobilized from the surrounding tissues. Crossing veins were ligated with clips and ties and divided. The popliteal arteries were encircled proximally and distally with vessel loops. A Doppler signal was heard within the vessel. A metal tunneler was then passed deep to the sartorius from the knee up to the groin. The tunneler was left in the subcutaneous tissues. The patient was systemically heparinized. The common femoral artery was occluded with the vascular clamp, and the deep femoral and superficial femoral with vessel loops. A longitudinal arteriotomy was made in the common femoral artery measuring approximately 15 mm. the inflow was checked and found to be strongly pulsatile. An 8-mm ring to PTFE graft was selected for use. One end was beveled, and anastomosed to the side of the artery with running suture of 6-0 Prolene. Prior to completion of the suture line, the artery was allowed to back-bleed and flush. The suture line was completed, and the graft was occluded with a vascular clamp. The arterial clamps were removed, and bleeding from the suture line controlled with thrombin-soaked Gelfoam. An 8-[place] sheath was placed in the lower end of the graft, and then, a wire and catheter were advanced proximally through the anastomosis and into the iliac artery. Angiography was then performed with a dilute contrast to evaluate for a possible stenosis of the external iliac which had been seen on CO2 angiography. No severe stenosis was identified, and flow looked brisk and normal. The catheter and wire were removed, and the sheath was removed. The graft was then passed through the tunneler with care not to twist it. Popliteal artery was then occluded with clamps and vessel loops and opened on exposed surface with a 12-mm arteriotomy. There was a moderate amount of plaque within the vessel, but it did not appear to be extending into the outflow. Back-bleeding from the distal popliteal was good. The end of the graft was trimmed for length and beveled and anastomosed to the side of the artery with running suture of 6-0 Prolene. Prior to completion of the suture line, the artery and the graft were allowed to flush. Suture line was completed, and all vessels were released. There was good flow through the anastomosis with a strong Doppler signal distally. Bleeding from the suture line was controlled with Surgicel and Gelfoam. When hemostasis was achieved after the administration of protamine, the wounds were irrigated and closed with interrupted suture of 3-0 Vicryl on the subcutaneous tissues and skin emilie. Sterile dressings were applied. The patient was taken to the recovery room in stable condition. Flash [id number]
[2017-02-23 06:14] LABS: MCH 31.7 pg (25.7-33.7); MCHC 34.7 g/dl (32.0-35.9); MEAN CELL VOLUME 91.2 fl (80-96); MEAN PLT VOLUME 8.7 fl (7.5-11.1); PLATELET COUNT 219 K/MM3 (134-434); RDW 14.7 % (11.9-15.9); WHITE BLOOD COUNT 7.2 K/mm3 (4.0-10.0)
[2017-02-23 06:36] LABS: ANION GAP 8 (8-16); CALCIUM 7.6 mg/dL (8.5-10.1); CO2 25 mmol/L (21-32); CREATININE 1.5 mg/dL (0.7-1.3); GLUCOSE,RANDOM 86 mg/dL (74-106)
[2017-02-23] MEDS ORDERED: PT OWN MED DRAWER 7, Y5N ONE ×2 (06:53→09:05)
[2017-02-23] MEDS ORDERED: glipiZIDE-XL 5 MG TAB.ER.24 PO SCH (07:00)
[2017-02-23] MEDS: glipiZIDE-XL 5 MG TAB.ER.24 PO SCH (07:11)
[2017-02-23] MEDS: INSULIN SLIDING SCALE (NOVOLOG) 1 VIAL SQ SCH ×3 (07:12→18:03)
[2017-02-23] MEDS ORDERED: TAMSULOSIN HCL 0.4 MG CAP.ER.24H (FP) PO SCH (08:30)
--- NOTE | 2017-02-23 08:54 | PN ---
Physical Exam: SUBJECTIVE: Patient seen and examined POD #3 right femoral popliteal bypass. OOB to chair yesterday. C/o cough overnight, with whits sputum productive. Denies fever, chills, n, v, abdominal pain, chest pain, sob, changes in bowel or bladder. OBJECTIVE: Vital Signs Period Temp Pulse Resp BP Sys/Fuentes Pulse Ox Last 24 Hr 97.6 F-98.4 F 64-90 13-20 121-158/51-74 94 GENERAL: The patient is awake, alert, and fully oriented, in no acute distress. LUNGS: decreased breath sounds equal, clear to auscultation bilaterally, no wheezes, no crackles, no accessory muscle use. HEART: Regular rate and rhythm, S1, S2 without murmur, rub or gallop. ABDOMEN: Soft, nontender, nondistended, normoactive bowel sounds, no guarding, no rebound, no hepatosplenomegaly, no masses. EXTREMITIES: 2+ pulses, warm, well-perfused, LLE venous insufficiency; right LE stplaes in place, no surrounding erythema, edema, oozing NEUROLOGICAL: Cranial nerves II through XII grossly intact. Normal speech, gait not observed. PSYCH: Normal mood, normal affect. SKIN: Warm, dry, normal turgor, no rashes or lesions noted CBC, BMP 02/23/17 05:00 02/23/17 05:00 Active Medications Generic Name Dose Route Start Last Admin Trade Name Freq PRN Reason Stop Dose Admin Acetaminophen 650 mg 02/22/17 14:13 02/22/17 23:26 Tylenol - PO 650 mg Q6H PRN Administration FEVER OR PAIN Acetaminophen 325 mg 02/22/17 14:13 Tylenol - PO Q4H PRN PAIN LEVEL 1-5 Albuterol Sulfate 1 amp 02/22/17 14:13 Ventolin 0.083% Nebulizer Soln - NEB Q4H PRN SHORT OF BREATH/WHEEZING Amlodipine Besylate 5 mg 02/23/17 10:00 Norvasc - PO DAILY [facility] Aspirin 81 mg 02/23/17 10:00 Asa - PO DAILY [facility] Carvedilol 12.5 mg 02/22/17 22:00 02/22/17 23:26 Coreg - PO 12.5 mg BID [facility] Administration Clopidogrel Bisulfate 75 mg 02/23/17 10:00 Plavix - PO DAILY [facility] Glipizide 5 mg 02/23/17 07:00 02/23/17 07:11 Glucotrol Xl - PO 5 mg AM [facility] Administration Heparin Sodium (Porcine) 5,000 unit 02/22/17 22:00 02/22/17 23:26 Heparin - SQ 5,000 unit BID [facility] Administration Insulin Aspart 1 vial 02/22/17 16:30 02/23/17 07:12 Novolog Vial Sliding Scale - SQ Not Given TIDAC [facility] Protocol Metoclopramide HCl 10 mg 02/22/17 14:13 Reglan Injection - IVPUSH Q6H PRN NAUSEA AND/OR VOMITING Nystatin 1 applic 02/23/17 10:00 Nystop Powder - TP DAILY [facility] Pantoprazole Sodium 40 mg 02/23/17 10:00 Protonix - PO DAILY [facility] Tamsulosin HCl 0.8 mg 02/23/17 08:30 Flomax - PO DAILY@0830 [facility] Tolnaftate 1 applic 02/22/17 22:00 02/22/17 23:26 Tinactin 1% Powder - TP 1 applic BID [facility] Administration ASSESSMENT/PLAN: 56 year old male with CAD, PAD, CKD, chronic tobacco use, presented with right leg pain after walking short distances, admitted for right femoral to above- knee popliteal bypass. POD #3. #Peripheral arterial disease: -POD #3 Right femoral to above-knee popliteal bypass with PTFE and Angiogram right iliac artery: -pedal pulses b/l -pain controlled with Tylenol -OOB -Physical therapy -vascular following #Cough secondary to atelectasis -lungs clear with diminished breath sounds -incentive spirometry #CAD: -continue aspirin and plavix #Diabetes mellitus type II: -insulin SS -BGM #nausea and vomiting- resolved -cont protonix 40mg po daily #hyperkalemia: resolved #Tobacco use: -counselled on smoking cessation -willing to quit in future -will try nicotine patch once more clinically stable #acute on chronic CKD: most likely secondary contrast nephropathy: improved -Cr improving #normocytic anemia: looks to be chronic from previous visits: -POD #3 -H/H dropped to 8.7; baseline arounf 8-9 -trend cbc -transfuse in <7.0 -iron studies pending; consider iron supp -denies melena; bbb FEN: po intake Electrolytes: wnl Diet: diabetic Dispo: transfer to floors Problem List - Problems (1) ASHD (arteriosclerotic heart disease) Code(s): I25.10 - ATHSCL HEART DISEASE OF [place] CORONARY ARTERY W/O ANG PCTRS (2) Arterial insufficiency of lower extremity Code(s): I73.9 - PERIPHERAL VASCULAR DISEASE, UNSPECIFIED (3) CKD (chronic kidney disease) Code(s): N18.9 - CHRONIC KIDNEY DISEASE, UNSPECIFIED Qualifiers: Chronic kidney disease stage: unspecified stage Qualified Code(s): N18.9 - Chronic kidney disease, unspecified; N18.9 - Chronic kidney disease, unspecified (4) Diastolic CHF Code(s): I50.30 - UNSPECIFIED DIASTOLIC (CONGESTIVE) HEART FAILURE (5) CAD (coronary artery disease) Code(s): I25.10 - ATHSCL HEART DISEASE OF [place] CORONARY ARTERY W/O ANG PCTRS Qualifiers: Coronary Disease-Associated Artery/Lesion type: [place] artery [place] vs. transplanted heart: [place] heart Associated angina: without angina Qualified Code(s): I25.10 - Atherosclerotic heart disease of [place] coronary artery without angina pectoris; I25.10 - Atherosclerotic heart disease of [place] coronary artery without angina pectoris; I25.10 - Atherosclerotic heart disease of [place] coronary artery without angina pectoris (6) Chronic renal insufficiency Code(s): N18.9 - CHRONIC KIDNEY DISEASE, UNSPECIFIED (7) Diabetes 1.5, managed as type 1 Code(s): E10.9 - TYPE 1 DIABETES MELLITUS WITHOUT COMPLICATIONS (8) HTN (hypertension) Code(s): I10 - ESSENTIAL (PRIMARY) HYPERTENSION (9) Hyperkalemia Code(s): E87.5 - HYPERKALEMIA (10) PAD (peripheral artery disease) Code(s): I73.9 - PERIPHERAL VASCULAR DISEASE, UNSPECIFIED Visit type - Emergency Visit Emergency Visit: Yes ED Registration Date: 02/08/17 Care time: The patient presented to the Emergency Department on the above date and was hospitalized for further evaluation of their emergent condition. - New Patient This patient is new to me today: No - Critical Care Critical Care patient: Yes Total Critical Care Time (in minutes): 36 Critical Care Statement: The care of this patient involved high complexity decision making to prevent further life threatening deterioration of the patient 's condition and/or to evaluate & treat vital organ system(s) failure or risk of failure.
[2017-02-23] MEDS: TAMSULOSIN HCL 0.4 MG CAP.ER.24H (FP) PO SCH (09:13)
[2017-02-23] MEDS: ASPIRIN 81 MG CHEWABLE TABLETS PO SCH (09:14)
[2017-02-23] MEDS: CARVEDILOL 12.5 MG TABLET (FP) PO SCH ×2 (09:14→21:29)
[2017-02-23] MEDS: CLOPIDOGREL BISULFATE 75 MG TABLET (FP) PO SCH (09:14)
[2017-02-23] MEDS: PANTOPRAZOLE 40 MG TABLET (FP) PO SCH (09:15)
[2017-02-23] MEDS: HEPARIN NA (PORCINE) 5,000 UNITS/ML 1ML VIAL SQ SCH ×2 (09:15→21:29)
[2017-02-23] MEDS: amLODIPine BESYLATE 5 MG TABLET (FP) PO SCH (09:15)
[2017-02-23] MEDS: NYSTATIN POWDER 100,000 UNITS/GM - 15 GM TOPICAL POWDER TP SCH (09:17)
[2017-02-23] MEDS: TOLNAFTATE 1% POWDER 45 GM POW TP SCH ×2 (09:18→21:30)
--- NOTE | 2017-02-23 10:15 | PN ---
Progress Note, Physician Chief Complaint: no further vomiting, Chest pain , SOB feels ok - Current Medication List Current Medications: Active Medications Acetaminophen (Tylenol -) 650 mg PO Q6H PRN PRN Reason: FEVER OR PAIN Last Admin: 02/22/17 23:26 Dose: 650 mg Acetaminophen (Tylenol -) 325 mg PO Q4H PRN PRN Reason: PAIN LEVEL 1-5 Albuterol Sulfate (Ventolin 0.083% Nebulizer Soln -) 1 amp NEB Q4H PRN PRN Reason: SHORT OF BREATH/WHEEZING Amlodipine Besylate (Norvasc -) 5 mg PO DAILY [facility] Last Admin: 02/23/17 09:15 Dose: 5 mg Aspirin (Asa -) 81 mg PO DAILY [facility] Last Admin: 02/23/17 09:14 Dose: 81 mg Carvedilol (Coreg -) 12.5 mg PO BID [facility] Last Admin: 02/23/17 09:14 Dose: 12.5 mg Clopidogrel Bisulfate (Plavix -) 75 mg PO DAILY [facility] Last Admin: 02/23/17 09:14 Dose: 75 mg Glipizide (Glucotrol Xl -) 5 mg PO AM [facility] Last Admin: 02/23/17 07:11 Dose: 5 mg Heparin Sodium (Porcine) (Heparin -) 5,000 unit SQ BID [facility] Last Admin: 02/23/17 09:15 Dose: 5,000 unit Insulin Aspart (Novolog Vial Sliding Scale -) 1 vial SQ TIDAC [facility] PRN Reason: Protocol Last Admin: 02/23/17 07:12 Dose: Not Given Metoclopramide HCl (Reglan Injection -) 10 mg IVPUSH Q6H PRN PRN Reason: NAUSEA AND/OR VOMITING Nystatin (Nystop Powder -) 1 applic TP DAILY [facility] Last Admin: 02/23/17 09:17 Dose: 1 applic Pantoprazole Sodium (Protonix -) 40 mg PO DAILY [facility] Last Admin: 02/23/17 09:15 Dose: 40 mg Tamsulosin HCl (Flomax -) 0.8 mg PO DAILY@0830 [facility] Last Admin: 02/23/17 09:13 Dose: 0.8 mg Tolnaftate (Tinactin 1% Powder -) 1 applic TP BID [facility] Last Admin: 02/23/17 09:18 Dose: 1 applic - Objective Vital Signs: Vital Signs Temperature 97.8 F 02/23/17 06:00 Pulse Rate 81 02/23/17 06:00 Respiratory Rate 16 02/23/17 07:37 Blood Pressure 143/58 02/23/17 06:00 O2 Sat by Pulse Oximetry (%) 94 L 02/22/17 21:00 Constitutional: Yes: No Distress, Calm Cardiovascular: Yes: Regular Rate and Rhythm Respiratory: Yes: CTA Bilaterally Gastrointestinal: Yes: Normal Bowel Sounds, Soft, Abdomen, Obese. No: Tenderness Edema: Yes Labs: CBC, BMP 02/23/17 05:00 02/23/17 05:00 INR, PTT INR 1.24 (0.82-1.09) H 02/19/17 06:00 Problem List - Problems (1) ASHD (arteriosclerotic heart disease) Code(s): I25.10 - ATHSCL HEART DISEASE OF [place] CORONARY ARTERY W/O ANG PCTRS (2) CKD (chronic kidney disease) Code(s): N18.9 - CHRONIC KIDNEY DISEASE, UNSPECIFIED Qualifiers: Chronic kidney disease stage: unspecified stage Qualified Code(s): N18.9 - Chronic kidney disease, unspecified; N18.9 - Chronic kidney disease, unspecified (3) Diastolic CHF Code(s): I50.30 - UNSPECIFIED DIASTOLIC (CONGESTIVE) HEART FAILURE (4) PAD (peripheral artery disease) Code(s): I73.9 - PERIPHERAL VASCULAR DISEASE, UNSPECIFIED (5) Arterial insufficiency of lower extremity Code(s): I73.9 - PERIPHERAL VASCULAR DISEASE, UNSPECIFIED Assessment/Plan PLAN SFA occlusion--s/p bypass monitor BUN/Creatinine-- better today potassium better KUB - no obstruction ok to transfer to the floor continue with meds c/w ASA and plavix DVT prophylaxis-- Heparin sc can be OOB to chair will need SNF on discharge
--- NOTE | 2017-02-23 11:01 | PN ---
Progress Note, Physician Chief Complaint: The patient seen in ICU. Seems comfortable. Still with pain. S/P Fem-pop by-pass surgery. Maintains good urine output. History of Present Illness: 56 year old gentleman with PMhx of Atrial fib, CAD s/p stents (on plavix), CVA with residual left sided weakness, IDDM, HTN, HLD, COPD, Anemia . Right superficial Femoral occlusion, s/p Bypass graft surgery. - Current Medication List Current Medications: Active Medications Acetaminophen (Tylenol -) 650 mg PO Q6H PRN PRN Reason: FEVER OR PAIN Last Admin: 02/22/17 23:26 Dose: 650 mg Acetaminophen (Tylenol -) 325 mg PO Q4H PRN PRN Reason: PAIN LEVEL 1-5 Albuterol Sulfate (Ventolin 0.083% Nebulizer Soln -) 1 amp NEB Q4H PRN PRN Reason: SHORT OF BREATH/WHEEZING Amlodipine Besylate (Norvasc -) 5 mg PO DAILY [facility] Last Admin: 02/23/17 09:15 Dose: 5 mg Aspirin (Asa -) 81 mg PO DAILY [facility] Last Admin: 02/23/17 09:14 Dose: 81 mg Carvedilol (Coreg -) 12.5 mg PO BID [facility] Last Admin: 02/23/17 09:14 Dose: 12.5 mg Clopidogrel Bisulfate (Plavix -) 75 mg PO DAILY [facility] Last Admin: 02/23/17 09:14 Dose: 75 mg Glipizide (Glucotrol Xl -) 5 mg PO AM [facility] Last Admin: 02/23/17 07:11 Dose: 5 mg Heparin Sodium (Porcine) (Heparin -) 5,000 unit SQ BID [facility] Last Admin: 02/23/17 09:15 Dose: 5,000 unit Insulin Aspart (Novolog Vial Sliding Scale -) 1 vial SQ TIDAC [facility] PRN Reason: Protocol Last Admin: 02/23/17 07:12 Dose: Not Given Metoclopramide HCl (Reglan Injection -) 10 mg IVPUSH Q6H PRN PRN Reason: NAUSEA AND/OR VOMITING Nystatin (Nystop Powder -) 1 applic TP DAILY [facility] Last Admin: 02/23/17 09:17 Dose: 1 applic Pantoprazole Sodium (Protonix -) 40 mg PO DAILY [facility] Last Admin: 02/23/17 09:15 Dose: 40 mg Tamsulosin HCl (Flomax -) 0.8 mg PO DAILY@0830 [facility] Last Admin: 02/23/17 09:13 Dose: 0.8 mg Tolnaftate (Tinactin 1% Powder -) 1 applic TP BID [facility] Last Admin: 02/23/17 09:18 Dose: 1 applic - Objective Vital Signs: Vital Signs Temperature 97.8 F 02/23/17 06:00 Pulse Rate 85 02/23/17 10:16 Respiratory Rate 16 02/23/17 07:37 Blood Pressure 143/58 02/23/17 06:00 O2 Sat by Pulse Oximetry (%) 96 02/23/17 10:16 Constitutional: Yes: Anxious, Mild Distress Eyes: Yes: Conjunctiva Clear HENT: Yes: Normocephalic Neck: Yes: Trachea Midline Cardiovascular: Yes: S1, S2 Respiratory: Yes: Regular, Diminished, Poor Air Entry Gastrointestinal: Yes: Normal Bowel Sounds, Soft Genitourinary: No: CVA Tenderness - Left, CVA Tenderness - Right Extremities: Yes: Other (pain at the surgical wound) Labs: CBC, BMP 02/23/17 05:00 02/23/17 05:00 INR, PTT INR 1.24 (0.82-1.09) H 02/19/17 06:00 Problem List - Problems (1) ASHD (arteriosclerotic heart disease) Code(s): I25.10 - ATHSCL HEART DISEASE OF [place] CORONARY ARTERY W/O ANG PCTRS (2) Arterial insufficiency of lower extremity Code(s): I73.9 - PERIPHERAL VASCULAR DISEASE, UNSPECIFIED (3) CKD (chronic kidney disease) Code(s): N18.9 - CHRONIC KIDNEY DISEASE, UNSPECIFIED Qualifiers: Chronic kidney disease stage: unspecified stage Qualified Code(s): N18.9 - Chronic kidney disease, unspecified; N18.9 - Chronic kidney disease, unspecified (4) Chronic stable angina Code(s): I20.8 - OTHER FORMS OF [place] (5) Diabetic neuropathy Code(s): E11.40 - TYPE 2 DIABETES MELLITUS WITH DIABETIC NEUROPATHY, UNSP Qualifiers: Diabetes mellitus type: due to underlying condition (6) Diastolic CHF Code(s): I50.30 - UNSPECIFIED DIASTOLIC (CONGESTIVE) HEART FAILURE (7) Hyperlipidemia Code(s): E78.5 - HYPERLIPIDEMIA, UNSPECIFIED (8) IDDM (insulin dependent diabetes mellitus) Code(s): E11.9 - TYPE 2 DIABETES MELLITUS WITHOUT COMPLICATIONS Z79.4 - DETENTION (CURRENT) USE OF INSULIN (9) Lower back pain Code(s): M54.5 - LOW BACK PAIN (10) Acute renal insufficiency Code(s): N28.9 - DISORDER OF KIDNEY AND URETER, UNSPECIFIED (11) Bacteremia Code(s): R78.81 - BACTEREMIA (12) CAD (coronary artery disease) Code(s): I25.10 - ATHSCL HEART DISEASE OF [place] CORONARY ARTERY W/O ANG PCTRS Qualifiers: Coronary Disease-Associated Artery/Lesion type: [place] artery [place] vs. transplanted heart: [place] heart Associated angina: without angina Qualified Code(s): I25.10 - Atherosclerotic heart disease of [place] coronary artery without angina pectoris; I25.10 - Atherosclerotic heart disease of [place] coronary artery without angina pectoris; I25.10 - Atherosclerotic heart disease of [place] coronary artery without angina pectoris (13) Diabetes Code(s): E11.9 - TYPE 2 DIABETES MELLITUS WITHOUT COMPLICATIONS Qualifiers: Diabetes mellitus type: type 2 Diabetes mellitus complication detail: with nephropathy (14) Diabetic foot ulcer Code(s): E11.621 - TYPE 2 DIABETES MELLITUS WITH FOOT ULCER L97.509 - NON-PRESSURE CHRONIC ULCER OTH PRT UNSP FOOT W UNSP SEVERITY (15) HTN (hypertension) Code(s): I10 - ESSENTIAL (PRIMARY) HYPERTENSION Assessment/Plan 56 year old gentleman with PMhx of Atrial fib, CAD s/p stents (on plavix), CVA with residual left sided weakness, IDDM, HTN, HLD, COPD, Superficial Femoral Artery occlusion--s/p bypass surgery VANDA. from [facility] and hemedynamic changes. Azotemia improving. Electrolytes acceptable. . KUB - no obstruction Agree with the urrent management. Renal functions expected to settle at his baseline. OK to discontinue Smith catheter and IV fluids. Thank you. Susie Brooke MD
--- NOTE | 2017-02-23 12:40 | PN ---
Progress Note, Physician History of Present Illness: seen and examined today in nad. no further chest pain, no new event. - Current Medication List Current Medications: Active Medications Acetaminophen (Tylenol -) 650 mg PO Q6H PRN PRN Reason: FEVER OR PAIN Last Admin: 02/22/17 23:26 Dose: 650 mg Acetaminophen (Tylenol -) 325 mg PO Q4H PRN PRN Reason: PAIN LEVEL 1-5 Albuterol Sulfate (Ventolin 0.083% Nebulizer Soln -) 1 amp NEB Q4H PRN PRN Reason: SHORT OF BREATH/WHEEZING Amlodipine Besylate (Norvasc -) 5 mg PO DAILY [facility] Last Admin: 02/23/17 09:15 Dose: 5 mg Aspirin (Asa -) 81 mg PO DAILY [facility] Last Admin: 02/23/17 09:14 Dose: 81 mg Carvedilol (Coreg -) 12.5 mg PO BID [facility] Last Admin: 02/23/17 09:14 Dose: 12.5 mg Clopidogrel Bisulfate (Plavix -) 75 mg PO DAILY [facility] Last Admin: 02/23/17 09:14 Dose: 75 mg Glipizide (Glucotrol Xl -) 5 mg PO AM [facility] Last Admin: 02/23/17 07:11 Dose: 5 mg Heparin Sodium (Porcine) (Heparin -) 5,000 unit SQ BID [facility] Last Admin: 02/23/17 09:15 Dose: 5,000 unit Insulin Aspart (Novolog Vial Sliding Scale -) 1 vial SQ TIDAC [facility] PRN Reason: Protocol Last Admin: 02/23/17 11:50 Dose: Not Given Metoclopramide HCl (Reglan Injection -) 10 mg IVPUSH Q6H PRN PRN Reason: NAUSEA AND/OR VOMITING Nystatin (Nystop Powder -) 1 applic TP DAILY [facility] Last Admin: 02/23/17 09:17 Dose: 1 applic Pantoprazole Sodium (Protonix -) 40 mg PO DAILY [facility] Last Admin: 02/23/17 09:15 Dose: 40 mg Tamsulosin HCl (Flomax -) 0.8 mg PO DAILY@0830 [facility] Last Admin: 02/23/17 09:13 Dose: 0.8 mg Tolnaftate (Tinactin 1% Powder -) 1 applic TP BID [facility] Last Admin: 02/23/17 09:18 Dose: 1 applic - Objective Vital Signs: Vital Signs Temperature 97.8 F 02/23/17 06:00 Pulse Rate 85 02/23/17 10:16 Respiratory Rate 16 02/23/17 07:37 Blood Pressure 143/58 02/23/17 06:00 O2 Sat by Pulse Oximetry (%) 96 02/23/17 10:16 Constitutional: Yes: No Distress, Calm Eyes: Yes: Conjunctiva Clear, EOM Intact, PERRL HENT: Yes: Atraumatic, Normocephalic Neck: Yes: Supple, Trachea Midline Cardiovascular: Yes: Regular Rate and Rhythm, S1, S2. No: Bradycardia, Tachycardia, Pulse Irregular, Bruit, JVD, Gallop, Murmur, Rub, S3, S4, Varicosities Respiratory: Yes: Regular, CTA Bilaterally. No: Rales, Rhonchi, SOB, Wheezes Gastrointestinal: Yes: Normal Bowel Sounds, Soft. No: Distention, Tenderness Edema: Yes Peripheral Pulses WNL: No Neurological: Yes: Alert, Oriented Psychiatric: Yes: Alert, Oriented Labs: CBC, BMP 02/23/17 05:00 02/23/17 05:00 INR, PTT INR 1.24 (0.82-1.09) H 02/19/17 06:00 - ....Imaging Chest X-ray: Report Reviewed, Image Reviewed EKG: Report Reviewed, Image Reviewed Other: Report Reviewed, Image Reviewed (tele-nsr, occ pvcs, no sig arrhythmia) Assessment/Plan Severe PAD s/p RLE bypass CAD s/p PCI Acute on chronic renal failure REC: Tolerated surgery well Occasional episode of chest pain, cardiac enzymes have been wnl Cont ASA/Plavix Cont Coreg and Norvasc Ok from cardiac standpoint to transfer out of ICU
--- NOTE | 2017-02-23 14:02 | PN ---
Teaching Attending Note Name of Resident: Kassidy Hendricks ATTENDING PHYSICIAN STATEMENT I saw and evaluated the patient. I reviewed the resident's note and discussed the case with the resident. I agree with the resident's findings and plan as documented. SUBJECTIVE: Patient seen and examined in the ICU. Awake and alert. Less discomfort at the surgical site. (+) Doppler pulse. No CP or SOB. Laboratory Results - last 24 hr 02/22/17 02/23/17 02/23/17 17:23 05:00 05:00 WBC 7.2 RBC 2.62 L Hgb 8.3 L Hct 23.9 L MCV 91.2 MCH 31.7 MCHC 34.7 RDW 14.7 Plt Count 219 MPV 8.7 Sodium 142 Potassium 4.7 Chloride 109 H Carbon Dioxide 25 Anion Gap 8 BUN 48 H Creatinine 1.5 H POC Glucometer 130.13480 Random Glucose 86 D Calcium 7.6 L 02/23/17 02/23/17 05:13 11:54 WBC RBC Hgb Hct MCV MCH MCHC RDW Plt Count MPV Sodium Potassium Chloride Carbon Dioxide Anion Gap BUN Creatinine POC Glucometer 109.02593 139.88053 Random Glucose Calcium GEN: awake, alert, NAD PULM: clear anterior, no distress CV: RRR ABD: soft, NT+ BS EXT: R groin site CDI, (+) PP / warm Neuro: no new deficit, has existing L sided deficit. Laboratory Results - last 24 hr 02/22/17 02/23/17 02/23/17 17:23 05:00 05:00 WBC 7.2 RBC 2.62 L Hgb 8.3 L Hct 23.9 L MCV 91.2 MCH 31.7 MCHC 34.7 RDW 14.7 Plt Count 219 MPV 8.7 Sodium 142 Potassium 4.7 Chloride 109 H Carbon Dioxide 25 Anion Gap 8 BUN 48 H Creatinine 1.5 H POC Glucometer 130.05065 Random Glucose 86 D Calcium 7.6 L 02/23/17 02/23/17 05:13 11:54 WBC RBC Hgb Hct MCV MCH MCHC RDW Plt Count MPV Sodium Potassium Chloride Carbon Dioxide Anion Gap BUN Creatinine POC Glucometer 109.35577 139.27468 Random Glucose Calcium IMP: POD #3 : Right femoral to above-knee popliteal bypass with PTFE and Angiogram right iliac artery CAD PAD Smoker CKD Hyperkalemia PLAN: Doppler checks ASA/Plavix O2 as needed BD TX Pain control PO as tolerated Glycemic control Incentive Spirometry Floor Dr [place]
[2017-02-23] MEDS ORDERED: SENNOSIDES/DOCUSATE COMBO (SENNA PLUS) TABLET (UD) PO PRN (17:53)
--- NOTE | 2017-02-23 18:12 | PN ---
Progress Note (short form) - Note Progress Note: POD 3 C/o constipation VSS Right leg incision with bloody drainage lower thigh. No swelling Foot warm, pulses intact. Hgb 8.3 Stable, skin oozing OOB, increase walking. Problem List - Problems (1) PAD (peripheral artery disease) Code(s): I73.9 - PERIPHERAL VASCULAR DISEASE, UNSPECIFIED
[2017-02-23] MEDS ORDERED: POLYETHYLENE GLYCOL 3350 119 GM BTL PO ONE (18:13)
[2017-02-24] MEDS: INSULIN SLIDING SCALE (NOVOLOG) 1 VIAL SQ SCH ×3 (06:05→17:42)
[2017-02-24 06:07] LABS: SERUM IRON 34 ug/dL (38-169); TOTAL IRON BINDING CAPACITY 198 ug/dL (250-450); UIBC 164 ug/dL (111-343)
[2017-02-24] MEDS: glipiZIDE-XL 5 MG TAB.ER.24 PO SCH (06:33)
--- NOTE | 2017-02-24 08:36 | PN ---
Progress Note (short form) - Note Progress Note: POD 4 VSS Right leg incision with small amount bloody drainage lower thigh. No swelling Foot warm, pulses intact. Hgb 8.3 stable Stable. OOB, increase walking. Patient requesting rehab placement for a few days Problem List - Problems (1) PAD (peripheral artery disease) Code(s): I73.9 - PERIPHERAL VASCULAR DISEASE, UNSPECIFIED
[2017-02-24] MEDS: TAMSULOSIN HCL 0.4 MG CAP.ER.24H (FP) PO SCH (09:00)
--- NOTE | 2017-02-24 09:32 | PN ---
Progress Note, Physician Chief Complaint: says he was "coughing" all night Creat down to 1.5 - Current Medication List Current Medications: Active Medications Acetaminophen (Tylenol -) 650 mg PO Q6H PRN PRN Reason: FEVER OR PAIN Last Admin: 02/22/17 23:26 Dose: 650 mg Acetaminophen (Tylenol -) 325 mg PO Q4H PRN PRN Reason: PAIN LEVEL 1-5 Albuterol Sulfate (Ventolin 0.083% Nebulizer Soln -) 1 amp NEB Q4H PRN PRN Reason: SHORT OF BREATH/WHEEZING Amlodipine Besylate (Norvasc -) 5 mg PO DAILY [facility] Last Admin: 02/23/17 09:15 Dose: 5 mg Aspirin (Asa -) 81 mg PO DAILY [facility] Last Admin: 02/23/17 09:14 Dose: 81 mg Carvedilol (Coreg -) 12.5 mg PO BID [facility] Last Admin: 02/23/17 21:29 Dose: 12.5 mg Clopidogrel Bisulfate (Plavix -) 75 mg PO DAILY [facility] Last Admin: 02/23/17 09:14 Dose: 75 mg Glipizide (Glucotrol Xl -) 5 mg PO AM [facility] Last Admin: 02/24/17 06:33 Dose: 5 mg Heparin Sodium (Porcine) (Heparin -) 5,000 unit SQ BID [facility] Last Admin: 02/23/17 21:29 Dose: 5,000 unit Insulin Aspart (Novolog Vial Sliding Scale -) 1 vial SQ TIDAC [facility] PRN Reason: Protocol Last Admin: 02/24/17 06:05 Dose: Not Given Metoclopramide HCl (Reglan Injection -) 10 mg IVPUSH Q6H PRN PRN Reason: NAUSEA AND/OR VOMITING Mupirocin (Bactroban 2% Ointment -) 1 applic TP BID [facility] Nystatin (Nystop Powder -) 1 applic TP DAILY [facility] Last Admin: 02/23/17 09:17 Dose: 1 applic Pantoprazole Sodium (Protonix -) 40 mg PO DAILY [facility] Last Admin: 02/23/17 09:15 Dose: 40 mg Senna/Docusate Sodium (Pericolace -) 2 tablet PO HS PRN PRN Reason: CONSTIPATION Tamsulosin HCl (Flomax -) 0.8 mg PO DAILY@0830 [facility] Last Admin: 02/24/17 09:00 Dose: 0.8 mg Tolnaftate (Tinactin 1% Powder -) 1 applic TP BID [facility] Last Admin: 02/23/17 21:30 Dose: Not Given - Objective Vital Signs: Vital Signs Temperature 98.6 F 02/24/17 07:52 Pulse Rate 80 02/24/17 07:52 Respiratory Rate 20 02/24/17 07:52 Blood Pressure 142/59 02/24/17 07:52 O2 Sat by Pulse Oximetry (%) 98 02/23/17 21:00 Constitutional: Yes: No Distress Cardiovascular: Yes: Regular Rate and Rhythm Respiratory: Yes: Other (rales 1/3 up b/l) Gastrointestinal: Yes: Soft Edema: No Neurological: Yes: Alert Labs: CBC, BMP 02/23/17 05:00 02/23/17 05:00 INR, PTT INR 1.24 (0.82-1.09) H 02/19/17 06:00 - ....Imaging Chest X-ray: Pending Assessment/Plan Assessment/Plan Severe PAD s/p RLE bypass CAD s/p PCI Acute on chronic renal failure Chronic diastolic CHF REC: Tolerated surgery well Now with rales again on exam and sx of PND (mild) Check CXR Would resume Lasix and watch renal function closely
[2017-02-24 09:41] LABS: MCH 31.5 pg (25.7-33.7); MCHC 34.4 g/dl (32.0-35.9); MEAN CELL VOLUME 91.6 fl (80-96); MEAN PLT VOLUME 7.9 fl (7.5-11.1); PLATELET COUNT 234 K/MM3 (134-434); RDW 14.4 % (11.9-15.9); WHITE BLOOD COUNT 6.7 K/mm3 (4.0-10.0)
--- NOTE | 2017-02-24 09:57 | PN ---
Progress Note (short form) - Note Progress Note: patient seen and examined today chief complaint constipation Postoperative day #4 Chart reviewed All follow-ups noted Denies chest pain or shortness breath Vital Signs Temp 98.6 F 02/24/17 07:52 Pulse 80 02/24/17 07:52 Resp 20 02/24/17 07:52 BP 142/59 02/24/17 07:52 Pulse Ox 98 02/23/17 21:00 Intake & Output 02/23/17 02/23/17 02/24/17 11:59 23:59 11:59 Intake Total 400 Output Total 600 600 Balance -600 -200 Weight 192 lb 6.4 oz Intake: Oral 400 Output: Urine 600 600 Void 600 Smith 600 Other: Voiding Method Urinal Urinal Urinal Weight Measurement Method Built in [facility] Active Medications Acetaminophen (Tylenol -) 650 mg PO Q6H PRN PRN Reason: FEVER OR PAIN Last Admin: 02/22/17 23:26 Dose: 650 mg Acetaminophen (Tylenol -) 325 mg PO Q4H PRN PRN Reason: PAIN LEVEL 1-5 Albuterol Sulfate (Ventolin 0.083% Nebulizer Soln -) 1 amp NEB Q4H PRN PRN Reason: SHORT OF BREATH/WHEEZING Amlodipine Besylate (Norvasc -) 5 mg PO DAILY [facility] Last Admin: 02/23/17 09:15 Dose: 5 mg Aspirin (Asa -) 81 mg PO DAILY [facility] Last Admin: 02/23/17 09:14 Dose: 81 mg Carvedilol (Coreg -) 12.5 mg PO BID [facility] Last Admin: 02/23/17 21:29 Dose: 12.5 mg Clopidogrel Bisulfate (Plavix -) 75 mg PO DAILY [facility] Last Admin: 02/23/17 09:14 Dose: 75 mg Furosemide (Lasix -) 40 mg PO DAILY [facility] Glipizide (Glucotrol Xl -) 5 mg PO AM [facility] Last Admin: 02/24/17 06:33 Dose: 5 mg Heparin Sodium (Porcine) (Heparin -) 5,000 unit SQ BID [facility] Last Admin: 02/23/17 21:29 Dose: 5,000 unit Insulin Aspart (Novolog Vial Sliding Scale -) 1 vial SQ TIDAC [facility] PRN Reason: Protocol Last Admin: 02/24/17 06:05 Dose: Not Given Metoclopramide HCl (Reglan Injection -) 10 mg IVPUSH Q6H PRN PRN Reason: NAUSEA AND/OR VOMITING Mupirocin (Bactroban 2% Ointment -) 1 applic TP BID [facility] Nystatin (Nystop Powder -) 1 applic TP DAILY [facility] Last Admin: 02/23/17 09:17 Dose: 1 applic Pantoprazole Sodium (Protonix -) 40 mg PO DAILY [facility] Last Admin: 02/23/17 09:15 Dose: 40 mg Senna/Docusate Sodium (Pericolace -) 2 tablet PO HS PRN PRN Reason: CONSTIPATION Tamsulosin HCl (Flomax -) 0.8 mg PO DAILY@0830 [facility] Last Admin: 02/24/17 09:00 Dose: 0.8 mg Tolnaftate (Tinactin 1% Powder -) 1 applic TP BID [facility] Last Admin: 02/23/17 21:30 Dose: Not Given CBC, BMP 02/23/17 05:00 Physical exam Constitutional: Yes: No Distress, Calm/ comfortable Cardiovascular: Yes: Regular Rate and Rhythm Respiratory: Yes: CTA Bilaterally Gastrointestinal: Yes: Normal Bowel Sounds, Soft, Abdomen, Obese. No: Tenderness Edema: Yes surgical site clean--- right lower extremity Problem List - Problems (1) ASHD (arteriosclerotic heart disease) Code(s): I25.10 - ATHSCL HEART DISEASE OF [place] CORONARY ARTERY W/O ANG PCTRS (2) CKD (chronic kidney disease) Code(s): N18.9 - CHRONIC KIDNEY DISEASE, UNSPECIFIED Qualifiers: Chronic kidney disease stage: unspecified stage Qualified Code(s): N18.9 - Chronic kidney disease, unspecified; N18.9 - Chronic kidney disease, unspecified (3) Diastolic CHF Code(s): I50.30 - UNSPECIFIED DIASTOLIC (CONGESTIVE) HEART FAILURE (4) PAD (peripheral artery disease) Code(s): I73.9 - PERIPHERAL VASCULAR DISEASE, UNSPECIFIED (5) Arterial insufficiency of lower extremity Code(s): I73.9 - PERIPHERAL VASCULAR DISEASE, UNSPECIFIED Assessment/Plan continue present care Pain control Laxatives Monitor lites DVT prophylaxis-- Heparin sc can be OOB to chair will need SNF on discharge discussed with patient Patient agrees with same Discussed with nursing staff as well as case therapist also Anticipate discharge tomorrow--if cleared by vascular surgery Will follow
[2017-02-24] MEDS: CARVEDILOL 12.5 MG TABLET (FP) PO SCH ×2 (10:31→21:21)
[2017-02-24] MEDS: MUPIROCIN 2% TOPICAL OINTMENT 22 GM TUBE TP SCH ×2 (10:31→21:23)
[2017-02-24] MEDS: ASPIRIN 81 MG CHEWABLE TABLETS PO SCH (10:31)
[2017-02-24] MEDS: NYSTATIN POWDER 100,000 UNITS/GM - 15 GM TOPICAL POWDER TP SCH (10:32)
[2017-02-24] MEDS: HEPARIN NA (PORCINE) 5,000 UNITS/ML 1ML VIAL SQ SCH ×2 (10:32→21:22)
[2017-02-24] MEDS: amLODIPine BESYLATE 5 MG TABLET (FP) PO SCH (10:32)
[2017-02-24] MEDS: TOLNAFTATE 1% POWDER 45 GM POW TP SCH ×2 (10:33→21:22)
[2017-02-24] MEDS: PANTOPRAZOLE 40 MG TABLET (FP) PO SCH (10:33)
[2017-02-24] MEDS: CLOPIDOGREL BISULFATE 75 MG TABLET (FP) PO SCH (10:33)
[2017-02-24] MEDS: FUROSEMIDE 40 MG TABLET (FP) PO SCH (10:34)
--- NOTE | 2017-02-24 11:36 | PN ---
Progress Note, Physician Chief Complaint: The patient seen in his room, sitting by his bed. Except for some pain at the surgical site, no specific complaints. Maintains good urine output. Denies any chest pain. History of Present Illness: 56 year old gentleman with PMhx of Atrial fib, CAD s/p stents (on plavix), CVA with residual left sided weakness, IDDM, HTN, HLD, COPD, Anemia . Right superficial Femoral occlusion, s/p Bypass graft surgery. - Current Medication List Current Medications: Active Medications Acetaminophen (Tylenol -) 650 mg PO Q6H PRN PRN Reason: FEVER OR PAIN Last Admin: 02/22/17 23:26 Dose: 650 mg Acetaminophen (Tylenol -) 325 mg PO Q4H PRN PRN Reason: PAIN LEVEL 1-5 Albuterol Sulfate (Ventolin 0.083% Nebulizer Soln -) 1 amp NEB Q4H PRN PRN Reason: SHORT OF BREATH/WHEEZING Amlodipine Besylate (Norvasc -) 5 mg PO DAILY [facility] Last Admin: 02/24/17 10:32 Dose: 5 mg Aspirin (Asa -) 81 mg PO DAILY [facility] Last Admin: 02/24/17 10:31 Dose: 81 mg Carvedilol (Coreg -) 12.5 mg PO BID [facility] Last Admin: 02/24/17 10:31 Dose: 12.5 mg Clopidogrel Bisulfate (Plavix -) 75 mg PO DAILY [facility] Last Admin: 02/24/17 10:33 Dose: 75 mg Furosemide (Lasix -) 40 mg PO DAILY [facility] Last Admin: 02/24/17 10:34 Dose: 40 mg Glipizide (Glucotrol Xl -) 5 mg PO AM [facility] Last Admin: 02/24/17 06:33 Dose: 5 mg Heparin Sodium (Porcine) (Heparin -) 5,000 unit SQ BID [facility] Last Admin: 02/24/17 10:32 Dose: 5,000 unit Insulin Aspart (Novolog Vial Sliding Scale -) 1 vial SQ TIDAC [facility] PRN Reason: Protocol Last Admin: 02/24/17 06:05 Dose: Not Given Metoclopramide HCl (Reglan Injection -) 10 mg IVPUSH Q6H PRN PRN Reason: NAUSEA AND/OR VOMITING Mupirocin (Bactroban 2% Ointment -) 1 applic TP BID [facility] Last Admin: 02/24/17 10:31 Dose: 1 appful Nystatin (Nystop Powder -) 1 applic TP DAILY [facility] Last Admin: 02/24/17 10:32 Dose: 1 applic Pantoprazole Sodium (Protonix -) 40 mg PO DAILY [facility] Last Admin: 02/24/17 10:33 Dose: 40 mg Senna/Docusate Sodium (Pericolace -) 2 tablet PO HS PRN PRN Reason: CONSTIPATION Tamsulosin HCl (Flomax -) 0.8 mg PO DAILY@0830 [facility] Last Admin: 02/24/17 09:00 Dose: 0.8 mg Tolnaftate (Tinactin 1% Powder -) 1 applic TP BID [facility] Last Admin: 02/24/17 10:33 Dose: 1 applic - Objective Vital Signs: Vital Signs Temperature 98.6 F 02/24/17 07:52 Pulse Rate 80 02/24/17 07:52 Respiratory Rate 20 02/24/17 07:52 Blood Pressure 142/59 02/24/17 07:52 O2 Sat by Pulse Oximetry (%) 98 02/23/17 21:00 Constitutional: Yes: No Distress Eyes: Yes: Conjunctiva Clear HENT: Yes: Normocephalic Neck: Yes: Trachea Midline Cardiovascular: Yes: S1, S2 Respiratory: Yes: CTA Bilaterally, Diminished Gastrointestinal: Yes: Normal Bowel Sounds, Soft Genitourinary: No: Bladder Distention Labs: CBC, BMP 02/24/17 09:29 02/23/17 05:00 INR, PTT INR 1.24 (0.82-1.09) H 02/19/17 06:00 Problem List - Problems (1) ASHD (arteriosclerotic heart disease) Code(s): I25.10 - ATHSCL HEART DISEASE OF [place] CORONARY ARTERY W/O ANG PCTRS (2) Arterial insufficiency of lower extremity Code(s): I73.9 - PERIPHERAL VASCULAR DISEASE, UNSPECIFIED (3) CKD (chronic kidney disease) Code(s): N18.9 - CHRONIC KIDNEY DISEASE, UNSPECIFIED Qualifiers: Chronic kidney disease stage: unspecified stage Qualified Code(s): N18.9 - Chronic kidney disease, unspecified; N18.9 - Chronic kidney disease, unspecified (4) Chronic stable angina Code(s): I20.8 - OTHER FORMS OF ANGINA PECTORIS (5) Diabetic neuropathy Code(s): E11.40 - TYPE 2 DIABETES MELLITUS WITH DIABETIC NEUROPATHY, UNSP Qualifiers: Diabetes mellitus type: due to underlying condition (6) Diastolic CHF Code(s): I50.30 - UNSPECIFIED DIASTOLIC (CONGESTIVE) HEART FAILURE (7) Hyperlipidemia Code(s): E78.5 - HYPERLIPIDEMIA, UNSPECIFIED (8) IDDM (insulin dependent diabetes mellitus) Code(s): E11.9 - TYPE 2 DIABETES MELLITUS WITHOUT COMPLICATIONS Z79.4 - SEN[facility] LIVING (CURRENT) USE OF INSULIN (9) Lower back pain Code(s): M54.5 - LOW BACK PAIN (10) Acute renal insufficiency Code(s): N28.9 - DISORDER OF KIDNEY AND URETER, UNSPECIFIED (11) Bacteremia Code(s): R78.81 - BACTEREMIA (12) CAD (coronary artery disease) Code(s): I25.10 - ATHSCL HEART DISEASE OF [place] CORONARY ARTERY W/O ANG PCTRS Qualifiers: Coronary Disease-Associated Artery/Lesion type: [place] artery [place] vs. transplanted heart: [place] heart Associated angina: without angina Qualified Code(s): I25.10 - Atherosclerotic heart disease of [place] coronary artery without angina pectoris; I25.10 - Atherosclerotic heart disease of [place] coronary artery without angina pectoris; I25.10 - Atherosclerotic heart disease of [place] coronary artery without angina pectoris (13) Diabetes Code(s): E11.9 - TYPE 2 DIABETES MELLITUS WITHOUT COMPLICATIONS Qualifiers: Diabetes mellitus type: type 2 Diabetes mellitus complication detail: with nephropathy (14) Diabetic foot ulcer Code(s): E11.621 - TYPE 2 DIABETES MELLITUS WITH FOOT ULCER L97.509 - NON-PRESSURE CHRONIC ULCER OTH PRT UNSP FOOT W UNSP SEVERITY (15) HTN (hypertension) Code(s): I10 - ESSENTIAL (PRIMARY) HYPERTENSION Assessment/Plan 56 year old gentleman with PMhx of Atrial fib, CAD s/p stents (on plavix), CVA with residual left sided weakness, IDDM, HTN, HLD, COPD, Superficial Femoral Artery occlusion--s/p bypass surgery [facility]ANDA. from [facility] and hemedynamic changes. Azotemia improving. Today the Cr is 1.5. Agree with the current management. Renal functions expected to settle at his baseline. Will monitor. Thank you. Susie Brooke MD
--- NOTE | 2017-02-24 12:49 | PN ---
Progress Note (short form) - Note Progress Note: Pt states that his groin incision is tender. He is oob to chair today, awaiting PT session. Vital Signs Period Temp Pulse Resp BP Sys/Fuentes Pulse Ox Last 24 Hr 97.9 F-98.9 F 75-95 15-20 128-165/59-79 98-98 GEN: appears comfortable Right groin/upper thigh: inc c/d/i with emilie, covered with dry dressing. No erythema or drainage noted. Right foot warm/mild swelling CBC, BMP 02/24/17 09:29 02/23/17 05:00 A/P:56 yo male s/p Right fem-popliteal bypass, POD#4 OOB/ambulate Continue with PT/rehab and plan for discharge Keep incisions clean/covered at all times D/w Dr. Humphrey
[2017-02-24] MEDS: POLYETHYLENE GLYCOL 3350 119 GM BTL PO SCH (14:34)
[2017-02-24] MEDS: DOCUSATE SODIUM 100 MG CAPSULE (FP) PO SCH ×2 (14:34→21:21)
[2017-02-25] MEDS: INSULIN SLIDING SCALE (NOVOLOG) 1 VIAL SQ SCH ×2 (06:22→12:21)
[2017-02-25] MEDS: glipiZIDE-XL 5 MG TAB.ER.24 PO SCH (06:24)
[2017-02-25] MEDS: DOCUSATE SODIUM 100 MG CAPSULE (FP) PO SCH ×2 (06:25→15:00)
[2017-02-25 07:59] LABS: ALBUMIN 2.2 g/dl (3.4-5.0); ALK PHOS 64 U/L (45-117); ANION GAP 5 (8-16); BILIRUBIN,TOTAL 0.4 mg/dL (0.2-1.0); CALCIUM 7.8 mg/dL (8.5-10.1); CO2 28 mmol/L (21-32); CREATININE 1.4 mg/dL (0.7-1.3); GLUCOSE,RANDOM 88 mg/dL (74-106); SGOT/AST 11 U/L (15-37); SGPT/ALT 17 U/L (12-78); TOT PROT 5.5 g/dl (6.4-8.2)
--- NOTE | 2017-02-25 09:18 | PN ---
Progress Note, Physician - Current Medication List Current Medications: Active Medications Acetaminophen (Tylenol -) 650 mg PO Q6H PRN PRN Reason: FEVER OR PAIN Last Admin: 02/22/17 23:26 Dose: 650 mg Acetaminophen (Tylenol -) 325 mg PO Q4H PRN PRN Reason: PAIN LEVEL 1-5 Albuterol Sulfate (Ventolin 0.083% Nebulizer Soln -) 1 amp NEB Q4H PRN PRN Reason: SHORT OF BREATH/WHEEZING Amlodipine Besylate (Norvasc -) 5 mg PO DAILY [facility] Last Admin: 02/24/17 10:32 Dose: 5 mg Aspirin (Asa -) 81 mg PO DAILY [facility] Last Admin: 02/24/17 10:31 Dose: 81 mg Carvedilol (Coreg -) 12.5 mg PO BID [facility] Last Admin: 02/24/17 21:21 Dose: 12.5 mg Clopidogrel Bisulfate (Plavix -) 75 mg PO DAILY [facility] Last Admin: 02/24/17 10:33 Dose: 75 mg Docusate Sodium (Colace -) 100 mg PO TID [facility] Last Admin: 02/25/17 06:25 Dose: 100 mg Furosemide (Lasix -) 40 mg PO DAILY [facility] Last Admin: 02/24/17 10:34 Dose: 40 mg Glipizide (Glucotrol Xl -) 5 mg PO AM [facility] Last Admin: 02/25/17 06:24 Dose: 5 mg Heparin Sodium (Porcine) (Heparin -) 5,000 unit SQ BID [facility] Last Admin: 02/24/17 21:22 Dose: 5,000 unit Insulin Aspart (Novolog Vial Sliding Scale -) 1 vial SQ TIDAC [facility] PRN Reason: Protocol Last Admin: 02/25/17 06:22 Dose: Not Given Metoclopramide HCl (Reglan Injection -) 10 mg IVPUSH Q6H PRN PRN Reason: NAUSEA AND/OR VOMITING Mupirocin (Bactroban 2% Ointment -) 1 applic TP BID [facility] Last Admin: 02/24/17 21:23 Dose: 1 applic Nystatin (Nystop Powder -) 1 applic TP DAILY [facility] Last Admin: 02/24/17 10:32 Dose: 1 applic Pantoprazole Sodium (Protonix -) 40 mg PO DAILY [facility] Last Admin: 02/24/17 10:33 Dose: 40 mg Polyethylene Glycol (Miralax (For Daily Use) -) 17 gm PO DAILY [facility] Last Admin: 02/24/17 14:34 Dose: 17 gm Senna/Docusate Sodium (Pericolace -) 2 tablet PO HS PRN PRN Reason: CONSTIPATION Tamsulosin HCl (Flomax -) 0.8 mg PO DAILY@0830 [facility] Last Admin: 02/24/17 09:00 Dose: 0.8 mg Tolnaftate (Tinactin 1% Powder -) 1 applic TP BID [facility] Last Admin: 02/24/17 21:22 Dose: 1 applic - Objective Vital Signs: Vital Signs Temperature 98.2 F 02/25/17 06:00 Pulse Rate 79 02/25/17 06:00 Respiratory Rate 18 02/25/17 06:00 Blood Pressure 148/69 02/25/17 06:00 O2 Sat by Pulse Oximetry (%) 99 02/24/17 21:00 Eyes: Yes: WNL, Conjunctiva Clear, EOM Intact HENT: Yes: WNL, Atraumatic, Normocephalic Neck: Yes: WNL, Supple, Trachea Midline Cardiovascular: Yes: WNL, Regular Rate and Rhythm Respiratory: Yes: Diminished, Rales Gastrointestinal: Yes: WNL, Normal Bowel Sounds Genitourinary: Yes: WNL Musculoskeletal: Yes: WNL Extremities: Yes: Erythema Edema: No Edema: LLE: 2+, RLE: 2+ Integumentary: Yes: WNL Neurological: Yes: WNL, Alert, Oriented ...Motor Strength: WNL Psychiatric: Yes: WNL Labs: CBC, BMP 02/24/17 09:29 02/25/17 06:00 INR, PTT INR 1.24 (0.82-1.09) H 02/19/17 06:00 Assessment/Plan Severe PAD s/p RLE bypass CAD s/p PCI Acute on chronic renal failure Chronic diastolic CHF REC: Tolerated surgery well Now with rales again on exam and sx of PND (mild) Check CXR Would resume Lasix and watch renal function closely
--- NOTE | 2017-02-25 10:22 | PN ---
Progress Note (short form) - Note Progress Note: Reports episodes of dry cough for "hours" overnight associated with cough. No CP. Awake and alert. Less discomfort at the surgical site. No CP. Intake & Output 02/22/17 02/23/17 02/24/17 02/25/17 23:59 23:59 23:59 23:59 Intake Total 1802 400 Output Total 1175 1200 Balance 627 -800 Weight 190 lb 11.2 oz 192 lb 6.4 oz 186 lb 11.2 oz Last Vital Signs Temp Pulse Resp BP Pulse Ox 98.2 F 79 18 148/69 99 02/25/17 06:00 02/25/17 06:00 02/25/17 06:00 02/25/17 06:00 02/24/17 21:00 Active Medications Acetaminophen (Tylenol -) 650 mg PO Q6H PRN PRN Reason: FEVER OR PAIN Last Admin: 02/22/17 23:26 Dose: 650 mg Acetaminophen (Tylenol -) 325 mg PO Q4H PRN PRN Reason: PAIN LEVEL 1-5 Albuterol Sulfate (Ventolin 0.083% Nebulizer Soln -) 1 amp NEB Q4H PRN PRN Reason: SHORT OF BREATH/WHEEZING Amlodipine Besylate (Norvasc -) 5 mg PO DAILY [facility] Last Admin: 02/24/17 10:32 Dose: 5 mg Aspirin (Asa -) 81 mg PO DAILY [facility] Last Admin: 02/24/17 10:31 Dose: 81 mg Carvedilol (Coreg -) 12.5 mg PO BID [facility] Last Admin: 02/24/17 21:21 Dose: 12.5 mg Clopidogrel Bisulfate (Plavix -) 75 mg PO DAILY [facility] Last Admin: 02/24/17 10:33 Dose: 75 mg Docusate Sodium (Colace -) 100 mg PO TID [facility] Last Admin: 02/25/17 06:25 Dose: 100 mg Furosemide (Lasix -) 40 mg PO DAILY [facility] Last Admin: 02/24/17 10:34 Dose: 40 mg Glipizide (Glucotrol Xl -) 5 mg PO AM [facility] Last Admin: 02/25/17 06:24 Dose: 5 mg Heparin Sodium (Porcine) (Heparin -) 5,000 unit SQ BID [facility] Last Admin: 02/24/17 21:22 Dose: 5,000 unit Insulin Aspart (Novolog Vial Sliding Scale -) 1 vial SQ TIDAC [facility] PRN Reason: Protocol Last Admin: 02/25/17 06:22 Dose: Not Given Metoclopramide HCl (Reglan Injection -) 10 mg IVPUSH Q6H PRN PRN Reason: NAUSEA AND/OR VOMITING Mupirocin (Bactroban 2% Ointment -) 1 applic TP BID [facility] Last Admin: 02/24/17 21:23 Dose: 1 applic Nystatin (Nystop Powder -) 1 applic TP DAILY [facility] Last Admin: 02/24/17 10:32 Dose: 1 applic Pantoprazole Sodium (Protonix -) 40 mg PO DAILY [facility] Last Admin: 02/24/17 10:33 Dose: 40 mg Polyethylene Glycol (Miralax (For Daily Use) -) 17 gm PO DAILY [facility] Last Admin: 02/24/17 14:34 Dose: 17 gm Senna/Docusate Sodium (Pericolace -) 2 tablet PO HS PRN PRN Reason: CONSTIPATION Tamsulosin HCl (Flomax -) 0.8 mg PO DAILY@0830 [facility] Last Admin: 02/24/17 09:00 Dose: 0.8 mg Tolnaftate (Tinactin 1% Powder -) 1 applic TP BID [facility] Last Admin: 02/24/17 21:22 Dose: 1 applic GEN: awake, alert, NAD PULM: clear anterior, no distress CV: RRR ABD: soft, NT+ BS EXT: R groin site CDI, (+) PP / warm Neuro: no new deficit, has existing L sided deficit. Laboratory Results - last 24 hr 02/24/17 02/24/17 02/25/17 11:57 16:18 06:00 Sodium 139 Potassium 5.0 Chloride 106 Carbon Dioxide 28 Anion Gap 5 L BUN 35 H D Creatinine 1.4 H Creat Clearance w eGFR 52.05 POC Glucometer 145 108 Random Glucose 88 Calcium 7.8 L Total Bilirubin 0.4 D AST 11 L D ALT 17 D Alkaline Phosphatase 64 Total Protein 5.5 L Albumin 2.2 L 02/25/17 06:21 Sodium Potassium Chloride Carbon Dioxide Anion Gap BUN Creatinine Creat Clearance w eGFR POC Glucometer 100 Random Glucose Calcium Total Bilirubin AST ALT Alkaline Phosphatase Total Protein Albumin IMP: POD #4 : Right femoral to above-knee popliteal bypass with PTFE and Angiogram right iliac artery CAD PAD Smoker CKD Hyperkalemia PLAN: Lasix dose pending for this AM Check CXR Doppler checks ASA/Plavix O2 as needed BD TX Pain control PO as tolerated Glycemic control Incentive Spirometry OOB to chair Dr Park
[2017-02-25] MEDS: POLYETHYLENE GLYCOL 3350 119 GM BTL PO SCH ×2 (10:55→10:58)
[2017-02-25] MEDS: ASPIRIN 81 MG CHEWABLE TABLETS PO SCH (10:57)
[2017-02-25] MEDS: amLODIPine BESYLATE 5 MG TABLET (FP) PO SCH (10:57)
[2017-02-25] MEDS: CARVEDILOL 12.5 MG TABLET (FP) PO SCH (10:57)
[2017-02-25] MEDS: PANTOPRAZOLE 40 MG TABLET (FP) PO SCH (10:57)
[2017-02-25] MEDS: CLOPIDOGREL BISULFATE 75 MG TABLET (FP) PO SCH (10:57)
[2017-02-25] MEDS: TAMSULOSIN HCL 0.4 MG CAP.ER.24H (FP) PO SCH (10:57)
[2017-02-25] MEDS: FUROSEMIDE 40 MG TABLET (FP) PO SCH (10:58)
[2017-02-25] MEDS: HEPARIN NA (PORCINE) 5,000 UNITS/ML 1ML VIAL SQ SCH (10:58)
[2017-02-25] MEDS: TOLNAFTATE 1% POWDER 45 GM POW TP SCH (11:00)
[2017-02-25] MEDS: MUPIROCIN 2% TOPICAL OINTMENT 22 GM TUBE TP SCH (11:00)
[2017-02-25] MEDS: NYSTATIN POWDER 100,000 UNITS/GM - 15 GM TOPICAL POWDER TP SCH (11:00)
--- NOTE | 2017-02-25 11:48 | DS ---
Physical Examination Vital Signs: Vital Signs Temperature 98.2 F 02/25/17 06:00 Pulse Rate 79 02/25/17 06:00 Respiratory Rate 18 02/25/17 06:00 Blood Pressure 148/69 02/25/17 06:00 O2 Sat by Pulse Oximetry (%) 99 02/24/17 21:00 Findings/Remarks: feels ok - except dry cough not constipated any more denies pain. Constitutional: Yes: No Distress, Calm Eyes: Yes: Conjunctiva Clear Neck: Yes: Supple Cardiovascular: Yes: Regular Rate and Rhythm Respiratory: Yes: Diminished (at bases) Gastrointestinal: Yes: Soft Wound/Incision: Yes: Sutures Intact Neurological: Yes: Alert Psychiatric: Yes: Alert Labs: CBC, BMP 02/24/17 09:29 02/25/17 06:00 Discharge Summary Reason For Visit: SWELLING OF LOWER LIMB Current Active Problems ASHD (arteriosclerotic heart disease) (Acute) Alcohol intoxication (Acute) Arterial insufficiency of lower extremity (Acute) CKD (chronic kidney disease) (Acute) Chest pain (Acute) Chronic stable angina (Acute) Diabetic neuropathy (Acute) Diastolic CHF (Acute) Edema (Acute) Hyperlipidemia (Acute) IDDM (insulin dependent diabetes mellitus) (Acute) Leg swelling (Acute) Lower back pain (Acute) Stroke (Acute) Urinary incontinence (Acute) Hospital Course: 56 yr old male, with significant past medical history of Afib, CAD s/p stents ( on plavix), CVA with residual left sided weakness, IDDM, HTN, HLD, who presents to the emergency room BIBA for bilateral lower extremity swelling, work up / angiogram showed -- stenosis rlower extremity- underwent bypass. pt followed closely by vascular/ renal / cardio/ pulmonary now stable for d/c discussed with Dr. Mclean will need str meds reconcilled discussed with nursing staff will d/c if cleared by Dr. Vegas . D/c time 35 min in exam/ documenting and coordating care. Condition: Stable - Instructions Referrals: Malinda Islas MD [Primary Care Provider] - Disposition: CUSTODIAL FACILITY - Home Medications Comprehensive Discharge Medication List: Ambulatory Orders Glipizide [Glipizide ER] 5 mg PO DAILY 10/15/13 Amlodipine Besylate [Norvasc -] 5 mg PO DAILY 09/17/16 Clopidogrel Bisulfate [Plavix -] 75 mg PO DAILY 10/17/16 Carvedilol [Coreg -] 12.5 mg PO BID #60 tablet 10/24/16 Furosemide [Lasix -] 40 mg PO DAILY #30 tablet 01/24/17 Acetaminophen [Tylenol .Regular Strength -] 325 mg PO Q4H PRN #0 tablet Albuterol 0.083% Nebulizer [place] [Ventolin 0.083% Nebulizer Soln -] 1 amp NEB Q4H PRN #0 amp 02/25/17 Aspirin [ASA -] 81 mg PO DAILY tab.chew 02/25/17 Insulin Sliding Scale [Novolog Vial Sliding Scale -] 1 vial SQ TIDAC units Mupirocin Ointment [Bactroban 2% Ointment -] 1 applic TP BID applic 02/25/17 Nystatin Powder [Nystop Powder -] 1 applic TP DAILY applic 02/25/17 Pantoprazole Sodium [Protonix -] 40 mg PO DAILY #90 capl 02/25/17 Tamsulosin HCl [Flomax -] 0.8 mg PO DAILY@0830 #30 tab 02/25/17
--- NOTE | 2017-02-25 13:17 | PN ---
Progress Note (short form) - Note Progress Note: VSS Right leg wounds dry. Foot warm Stable Rehab placement Problem List - Problems (1) PAD (peripheral artery disease) Code(s): I73.9 - PERIPHERAL VASCULAR DISEASE, UNSPECIFIED
[2017-02-25 13:46] LABS: BASOPHIL 0.7 % (0-2.0); EOSINOPHIL 6.2 % (0-4.5); MCH 31.9 pg (25.7-33.7); MCHC 34.5 g/dl (32.0-35.9); MEAN CELL VOLUME 92.4 fl (80-96); MEAN PLT VOLUME 8.2 fl (7.5-11.1); NEUTROPHILS 73.1 % (42.8-82.8); PLATELET COUNT 248 K/MM3 (134-434); RDW 14.5 % (11.9-15.9); WHITE BLOOD COUNT 6.6 K/mm3 (4.0-10.0)
--- NOTE | 2017-02-25 14:57 | PN ---
Progress Note (short form) - Note Progress Note: Renal follow up for VANDA/CKD Pt seen and examined at the bedside no acute complaints no sob, chest pain has mild pain in right LE Vital Signs Temperature 98.4 F 02/25/17 10:00 Pulse Rate 98 H 02/25/17 10:00 Respiratory Rate 20 02/25/17 10:00 Blood Pressure 138/68 02/25/17 10:00 O2 Sat by Pulse Oximetry (%) 99 02/24/17 21:00 Intake & Output 02/22/17 02/23/17 02/24/17 02/25/17 23:59 23:59 23:59 23:59 Intake Total 1802 400 Output Total 1175 1200 Balance 627 -800 Weight 190 lb 11.2 oz 192 lb 6.4 oz 186 lb 11.2 oz NAD RRR, No M/R CTA, no rales soft NT 1+ edema in LE CBC, BMP 02/25/17 12:47 02/25/17 06:00 Current Medications Acetaminophen (Tylenol -) 650 mg PO Q6H PRN PRN Reason: FEVER OR PAIN Last Admin: 02/22/17 23:26 Dose: 650 mg Acetaminophen (Tylenol -) 325 mg PO Q4H PRN PRN Reason: PAIN LEVEL 1-5 Albuterol Sulfate (Ventolin 0.083% Nebulizer Soln -) 1 amp NEB Q4H PRN PRN Reason: SHORT OF BREATH/WHEEZING Amlodipine Besylate (Norvasc -) 5 mg PO DAILY [facility] Last Admin: 02/25/17 10:57 Dose: 5 mg Aspirin (Asa -) 81 mg PO DAILY [facility] Last Admin: 02/25/17 10:57 Dose: 81 mg Carvedilol (Coreg -) 12.5 mg PO BID [facility] Last Admin: 02/25/17 10:57 Dose: 12.5 mg Clopidogrel Bisulfate (Plavix -) 75 mg PO DAILY [facility] Last Admin: 02/25/17 10:57 Dose: 75 mg Docusate Sodium (Colace -) 100 mg PO TID [facility] Last Admin: 02/25/17 06:25 Dose: 100 mg Furosemide (Lasix -) 40 mg PO DAILY [facility] Last Admin: 02/25/17 10:58 Dose: 40 mg Glipizide (Glucotrol Xl -) 5 mg PO AM [facility] Last Admin: 02/25/17 06:24 Dose: 5 mg Heparin Sodium (Porcine) (Heparin -) 5,000 unit SQ BID [facility] Last Admin: 02/25/17 10:58 Dose: 5,000 unit Insulin Aspart (Novolog Vial Sliding Scale -) 1 vial SQ TIDAC TONYA PRN Reason: Protocol Last Admin: 02/25/17 12:21 Dose: Not Given Metoclopramide HCl (Reglan Injection -) 10 mg IVPUSH Q6H PRN PRN Reason: NAUSEA AND/OR VOMITING Mupirocin (Bactroban 2% Ointment -) 1 applic TP BID [facility] Last Admin: 02/25/17 11:00 Dose: 1 applic Nystatin (Nystop Powder -) 1 applic TP DAILY [facility] Last Admin: 02/25/17 11:00 Dose: 1 applic Pantoprazole Sodium (Protonix -) 40 mg PO DAILY [facility] Last Admin: 02/25/17 10:57 Dose: 40 mg Polyethylene Glycol (Miralax (For Daily Use) -) 17 gm PO DAILY [facility] Last Admin: 02/25/17 10:55 Dose: Not Given Senna/Docusate Sodium (Pericolace -) 2 tablet PO HS PRN PRN Reason: CONSTIPATION Tamsulosin HCl (Flomax -) 0.8 mg PO DAILY@0830 [facility] Last Admin: 02/25/17 10:57 Dose: 0.8 mg Tolnaftate (Tinactin 1% Powder -) 1 applic TP BID [facility] Last Admin: 02/25/17 11:00 Dose: 1 applic 56 year old gentleman with PMhx of Atrial fib, CAD s/p stents (on plavix), CVA with residual left sided weakness, IDDM, HTN, HLD, COPD, Anemia who presented from home with compliant of frequent urination and sob and admitted with acute on CHF and BUN/Cr of 31/1.5 (baseline Cr 1.3) #VANDA in setting of contrast exposure Renal function now improved to baseline will need outpatient monitoring of renal function would benefit from MICHAEL/ARB give CKD but would wait until renal function stable over several weeks continue present management avoid nsaids Thank you Prakash Garcia DO
[2017-02-25 15:46] VITALS: BP 129/76; PULSE 75; TEMP 98.7
== END 2017-02-25 16:41 | DRG 252 ==
LOC: JER 19:24 → JERBED 22:09 → J8W 02-09 00:45 → JSAMEDAYSX 02-20 14:00 → JICU 02-20 20:54 → J8W 02-23 18:23
PROVIDERS: ADMIT Internal Medicine; ATTEND Internal Medicine
PROC: B41FYZZ Fluoroscopy of Right Lower Extremity Arteries using Other Contrast (ICD-10-PCS; 2017-02-15)
PROC: B41FYZZ Fluoroscopy of Right Lower Extremity Arteries using Other Contrast (ICD-10-PCS; 2017-02-20)
PROC: 041K0JL Bypass Right Femoral Artery to Popliteal Artery with Synthetic Substitute, Open Approach (ICD-10-PCS; principal; 2017-02-20 15:30)
DX: E11.51 Type 2 diabetes mellitus with diabetic peripheral angiopathy without gangrene (principal); I50.33 Acute on chronic diastolic (congestive) heart failure; N17.0 Acute kidney failure with tubular necrosis; I69.354 Hemiplegia and hemiparesis following cerebral infarction affecting left non-dominant side; I13.0 Hypertensive heart and chronic kidney disease with heart failure and stage 1 through stage 4 chronic kidney disease, or unspecified chronic kidney disease; N17.9 Acute kidney failure, unspecified; J98.11 Atelectasis; I48.91 Unspecified atrial fibrillation; I25.10 Atherosclerotic heart disease of native coronary artery without angina pectoris; Z79.01 Long term (current) use of anticoagulants; E78.5 Hyperlipidemia, unspecified; Z98.61 Coronary angioplasty status; Z79.84 Long term (current) use of oral hypoglycemic drugs; E11.22 Type 2 diabetes mellitus with diabetic chronic kidney disease; N18.9 Chronic kidney disease, unspecified; D64.9 Anemia, unspecified; E11.42 Type 2 diabetes mellitus with diabetic polyneuropathy; F17.210 Nicotine dependence, cigarettes, uncomplicated; J44.9 Chronic obstructive pulmonary disease, unspecified; R31.29 Other microscopic hematuria; N14.1 Nephropathy induced by other drugs, medicaments and biological substances; T50.8X5A Adverse effect of diagnostic agents, initial encounter; I70.292 Other atherosclerosis of native arteries of extremities, left leg; E87.5 Hyperkalemia; R11.2 Nausea with vomiting, unspecified; K59.00 Constipation, unspecified
CPT/HCPCS: 36415; 36430; 71010-TC; 74000-TC; 75635-TC; 76000-TC; 76775-TC; 76856-TC; 80048; 80053; 80061; 81003; 81015; 82009; 82436; 82550; 82553; 83540; 83550; 83721; 83735; 83880; 84100; 84133; 84155; 84165; 84300; 84484; 85025; 85027; 85610; 86850; 86900; 86901; 86922; 87040; 87086; 93005; 93010; 93970-TC; 94010; 94640; 94760; 97116-GP; 97162-GP; 99283-25; J1644; P9038; P9058

== ENCOUNTER 2017-03-31 05:49 | Inpatient (IN) | payer OTHER ==
[2017-03-31 06:03] VITALS: BMI 33.6
[2017-03-31] MEDS ORDERED: FUROSEMIDE 40 MG/4 ML INJECTABLE VIAL IVPUSH ONE (06:06)
[2017-03-31] MEDS ORDERED: DEXAMETHASONE SOD PHOSPHATE 10 MG/1 ML VIAL ONE (06:13)
[2017-03-31] MEDS ORDERED: FUROSEMIDE 40 MG/4 ML INJECTABLE VIAL ONE (06:14)
[2017-03-31] MEDS ORDERED: ALBUTEROL SO4 2.5/IPRATROPIUM 0.5 INH SOL 3 ML VIAL.NEB. NEB ONE ×2 (06:14→07:28)
[2017-03-31 06:24] LABS: BASOPHIL 0.6 % (0-2.0); EOSINOPHIL 6.1 % (0-4.5); MCH 32.6 pg (25.7-33.7); MCHC 34.4 g/dl (32.0-35.9); MEAN CELL VOLUME 94.6 fl (80-96); MEAN PLT VOLUME 7.6 fl (7.5-11.1); PLATELET COUNT 169 K/MM3 (134-434); WHITE BLOOD COUNT 7.1 K/mm3 (4.0-10.0)
--- NOTE | 2017-03-31 06:31 | PDOC ---
History of Present Illness - General Chief Complaint: Shortness of Breath Stated Complaint: DIFFICULTY BREATHING Time Seen by Provider: 03/31/17 06:00 History Source: Patient - History of Present Illness Initial Comments: 03/31/17 06:30 56 year old male c/o SOB 20 mins prior to arrival . patient reports not taking his Lasix last night. patient 1 week ago discharged from [facility] for rehab. Patient received albuterol neb and decadron 10 mg IV prior to arrival by ems. 1 Past History - Past Medical History Allergies/Adverse Reactions: Allergies Allergy/AdvReac Type Severity Reaction Status Date / Time No Known Drug Allergies Allergy Verified 03/31/17 06:00 Home Medications: Ambulatory Orders Glipizide [Glipizide ER] 5 mg PO DAILY 10/15/13 Amlodipine Besylate [Norvasc -] 5 mg PO DAILY 09/17/16 Clopidogrel Bisulfate [Plavix -] 75 mg PO DAILY 10/17/16 Carvedilol [Coreg -] 12.5 mg PO BID #60 tablet 10/24/16 Furosemide [Lasix -] 40 mg PO DAILY #30 tablet 01/24/17 Acetaminophen [Tylenol .Regular Strength -] 325 mg PO Q4H PRN #0 tablet Albuterol 0.083% Nebulizer Chantelle [Ventolin 0.083% Nebulizer Soln -] 1 amp NEB Q4H PRN #0 amp 02/25/17 Aspirin [ASA -] 81 mg PO DAILY tab.chew 02/25/17 Insulin Sliding Scale [Novolog Vial Sliding Scale -] 1 vial SQ TIDAC units Tamsulosin HCl [Flomax -] 0.8 mg PO DAILY@0830 #30 tab 02/25/17 Anemia: No Asthma: No Cancer: No Cardiac Disorders: Yes (stent x 2) CVA: Yes (2009, 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) COPD: No CHF: No Dementia: No Diabetes: Yes GI Disorders: No Disorders: No HTN: Yes Hypercholesterolemia: Yes Liver Disease: No Seizures: No Thyroid Disease: No - Surgical History Abdominal Surgery: No Appendectomy: No Cardiac Surgery: Yes (STENTS X2) Cholecystectomy: No Lung Surgery: No Neurologic Surgery: No Orthopedic Surgery: No - Immunization History Immunization Up to Date: Yes - Suicide/Smoking/Psychosocial Hx Smoking Status: Yes Smoking History: Current some day smoker Have you smoked in the past 12 months: Yes Number of Cigarettes Smoked Daily: 5 If you are a former smoker, when did you quit?: 09/2016 Cigars Per Day: 0 Information on smoking cessation initiated: No 'Breaking Loose' booklet given: 02/09/17 Hx Alcohol Use: No Drug/Substance Use Hx: No Substance Use Type: None Hx Substance Use Treatment: No Review of Systems - Review of Systems Able to Perform ROS?: Yes Is the patient limited Macedonian proficient: No Constitutional: No: Symptoms Reported, See HPI, Chills, Diaphoresis, Fever, Loss of Appetite, Malaise, Night Sweats, Weakness, Weight Stable, Unintentional Wgt. Loss, Unexplained wgt Loss, Other Respiratory: Yes: Cough, Shortness of Breath *Physical Exam - Vital Signs Last Vital Signs Temp Pulse Resp BP Pulse Ox 98.1 F 110 H 28 H 132/69 03/31/17 05:53 03/31/17 05:53 03/31/17 05:53 03/31/17 05:53 - Physical Exam General Appearance: Yes: Appropriately Dressed Respiratory/Chest: positive: Labored Respiration, Rales (throughout) Cardiovascular: positive: Tachycardia Gastrointestinal/Abdominal: positive: Normal Bowel Sounds, Soft Extremity: positive: Normal Capillary Refill Integumentary: positive: Normal Color, Dry, Warm Neurologic: positive: Fully Oriented, Alert Heart Score/ECG Review - History History: Moderately suspicious - Electrocardiogram EKG: Normal - Age Age: 45-65 - Risk Factors Risk Factors Heart Score: Yes Hx Hypercholesterolemia, Yes Hx Hypertension, Yes Hx Diabetes Based on the list above the patient has:: >/=3 risk factors or Hx atherosclerotic disease - ECG Intrepretation Rhythm: Regular Rhythm Comment:: 03/31/17 06:33 Sinus Tachycardia: 103 ED Treatment Course - RADIOLOGY Radiology Studies Ordered: Category Date Time Status CHEST X-RAY PORTABLE* [RAD] Stat Radiology 03/31/17 06:01 Ordered Medical Decision Making - Medical Decision Making 03/31/17 06:59 A: SOB CHF/COPD exacerbation? P: CBC CMP Cardiac enzyme *DC/Admit/Observation/Transfer Diagnosis at time of Disposition: COPD exacerbation, Shortness of breath - Referrals - Patient Instructions - Post Discharge Activity
[2017-03-31 06:48] LABS: ALBUMIN 3.1 g/dl (3.4-5.0); ANION GAP 6 (8-16); BILIRUBIN,TOTAL 0.3 mg/dL (0.2-1.0); CALCIUM 7.8 mg/dL (8.5-10.1); CO2 23 mmol/L (21-32); CREATININE 1.9 mg/dL (0.7-1.3); GLUCOSE,RANDOM 180 mg/dL (74-106); SGOT/AST 17 U/L (15-37); SGPT/ALT 20 U/L (12-78); TOT PROT 6.5 g/dl (6.4-8.2)
[2017-03-31 06:50] LABS: ALK PHOS 82 U/L (45-117); CPK 428 IU/L (39-308); TROPONIN I 0.02 ng/ml (0.00-0.05)
--- NOTE | 2017-03-31 07:24 | PDOC ---
*Physical Exam - Vital Signs Last Vital Signs Temp Pulse Resp BP Pulse Ox 98.1 F 110 H 28 H 132/69 03/31/17 05:53 03/31/17 05:53 03/31/17 05:53 03/31/17 05:53 - Physical Exam General Appearance: Yes: Appropriately Dressed. No: Apparent Distress HEENT: positive: Normal Voice Neck: positive: Supple Respiratory/Chest: positive: Lungs Clear, Normal Breath Sounds. negative: Respiratory Distress Cardiovascular: positive: Regular Rate, S1, S2 Gastrointestinal/Abdominal: positive: Soft. negative: Tender Extremity: positive: Pedal Edema Integumentary: positive: Dry, Warm Neurologic: positive: Fully Oriented, Alert, Normal Mood/Affect ED Treatment Course - LABORATORY CBC & Chemistry Diagram: 03/31/17 06:02 03/31/17 06:02 - ADDITIONAL ORDERS Additional order review: Laboratory Results 03/31/17 06:02 Sodium 141 Potassium 5.1 Chloride 112 H Carbon Dioxide 23 Anion Gap 6 L BUN 49 H D Creatinine 1.9 H D Creat Clearance w eGFR 36.59 Random Glucose 180 H D Calcium 7.8 L Total Bilirubin 0.3 D AST 17 D ALT 20 Alkaline Phosphatase 82 D Creatine Kinase 428 H Troponin I 0.02 B-Natriuretic Peptide 1410.47 H Total Protein 6.5 Albumin 3.1 L D 03/31/17 06:02 RBC 2.54 L MCV 94.6 MCHC 34.4 RDW 16.0 H D MPV 7.6 Neutrophils % 77.0 Lymphocytes % 9.3 D Monocytes % 7.0 Eosinophils % 6.1 H Basophils % 0.6 - Medications Given in the ED: ED Medications Discontinued Medications Generic Name Dose Route Start Last Admin Trade Name Freq PRN Reason Stop Dose Admin Furosemide 40 mg 03/31/17 06:06 03/31/17 06:19 Lasix Injection - IVPUSH 03/31/17 06:07 40 mg ONCE ONE Administration Medical Decision Making - Medical Decision Making 03/31/17 07:20 Received sign out at 7 AM Patient is a 52-year-old gentleman with h/o DM, HLD, HTN, CAD status post PCI times for at [facility] in 2007, CVA, carotid stenosis, PAD with prior left lower extremity bypass and stent, CHF on Lasix, edema, CKD, anemia, status post negative stress test and nl echo/EF 10/15, presents with acute shortness of breath. Did not take his recent dose of Lasix. Status post recent discharge from rehabilitation. As per prior team, pt was initially tachycardic and tachypneic. EKG unchanged. Patient early in workup so labs and chest x-ray still pending. Has since been given a dose of IV Lasix and currently stable on 2 L of oxygen. Plan is to contact cards and PMD and admit 03/31/17 07:24 03/31/17 07:33 03/31/17 10:23 Case d/w Dr Malinda Islas and pt admitted to tele *DC/Admit/Observation/Transfer Diagnosis at time of Disposition: COPD exacerbation, Shortness of breath - Discharge Dispostion Condition at time of disposition: Fair Admit: Yes - Referrals Referrals: Ariadna Huizar MD [Primary Care Provider] - - Patient Instructions - Post Discharge Activity
[2017-03-31] MEDS: ALBUTEROL SO4 0.083% IH SOL 2.5 MG/3 ML VIAL.NEB. NEB PRN ×3 (07:32→08:00)
--- NOTE | 2017-03-31 09:10 | EKG ---
Test Reason : Blood Pressure : / mmHG Vent. Rate : 103 BPM Atrial Rate : 103 BPM P-R Int : 176 ms QRS Dur : 138 ms QT Int : 376 ms P-R-T Axes : 052 -57 051 degrees QTc Int : 492 ms SINUS TACHYCARDIA RIGHT BUNDLE BRANCH BLOCK LEFT ANTERIOR FASCICULAR BLOCK BIFASCICULAR BLOCK ABNORMAL ECG WHEN COMPARED WITH ECG OF 21-FEB-2017 09:19, NO SIGNIFICANT CHANGE WAS FOUND Confirmed by CYNDI LAMBERT MD ([id number]) on 03/31/2017 9:10:05 AM Referred By: Confirmed By:CYNDI LAMBERT MD
--- NOTE | 2017-03-31 09:16 | PN ---
Progress Note, Physician Chief Complaint: 56M well known to our service with: Severe PAD s/p RLE bypass in January 2017 CAD s/p PCI Acute on chronic renal failure Chronic diastolic CHF IDDM Prior CVA Now returns with increased LE edema and worsening GONG, denies chest pain. Denies palpitations. Increased PND Denies fever or chills. - Current Medication List Current Medications: Active Medications Albuterol Sulfate (Ventolin 0.083% Nebulizer Soln -) 1 amp NEB Q15M PRN PRN Reason: Dyspnea Last Admin: 03/31/17 07:45 Dose: 1 amp - Objective Vital Signs: Vital Signs Temperature 98.1 F 03/31/17 05:53 Pulse Rate 93 H 03/31/17 07:05 Respiratory Rate 22 03/31/17 07:05 Blood Pressure 125/79 03/31/17 07:05 O2 Sat by Pulse Oximetry (%) 99 03/31/17 07:35 Constitutional: Yes: No Distress Cardiovascular: Yes: Regular Rate and Rhythm Respiratory: Yes: Other (BIBASILAR RALES) Gastrointestinal: Yes: Soft (distended, NT) Edema: Yes Edema: LLE: 2+, RLE: 2+ Neurological: Yes: Alert, Oriented Labs: CBC, BMP 03/31/17 06:02 03/31/17 06:02 Laboratory Tests 03/31/17 03/31/17 06:02 06:02 WBC 7.1 Hgb 8.3 L D Plt Count 169 D Sodium 141 Potassium 5.1 BUN 49 H D Creatinine 1.9 H D Random Glucose 180 H D Creatine Kinase 428 H Creatine Kinase Index 1.3 CK-MB (CK-2) 5.811 H Troponin I 0.02 B-Natriuretic Peptide 1410.47 H - ....Imaging Chest X-ray: Image Reviewed EKG: Image Reviewed (NSR RBBB, LAFB, NSST. No change) Other: Other (Nuclear stress 09/2016: no ischemia, normal EF Echo 09/2016: diastolic dysfx, mildly dilated aorta, no sig valve disease) Assessment/Plan Acute on chronic diastolic CHF Severe PAD s/p RLE bypass in January 2017 CAD s/p PCI Acute on chronic renal failure Chronic diastolic CHF IDDM Prior CVA Anemia REC: 1. IV Lasix daily with careful monitoring of renal function 2. Cycle cardiac enzymes 3. Repeat echo to assure no change in EF 4. LE venous duplex 5. Work up of anemia (likely chronic disease) as per PMD
[2017-03-31] MEDS ORDERED: ASPIRIN COATED 81 MG TABLET.EC ONE (09:33)
[2017-03-31] MEDS: ASPIRIN 81 MG CHEWABLE TABLETS PO SCH ×2 (09:35→10:04)
[2017-03-31] MEDS: CLOPIDOGREL BISULFATE 75 MG TABLET (FP) PO SCH ×2 (09:36→10:04)
[2017-03-31] MEDS ORDERED: ACETAMINOPHEN 325 MG TABLET (FP) PO PRN (10:46)
[2017-03-31] MEDS ORDERED: ALBUTEROL SO4 0.083% IH SOL 2.5 MG/3 ML VIAL.NEB. NEB PRN (10:46)
[2017-03-31] MEDS ORDERED: INSULIN REGULAR HUMAN 100 UNITS/ML *VIAL ONE (12:13)
[2017-03-31] MEDS: INSULIN (NOVOLOG) ASPART 100 UNITS/ML 10ML VIAL SQ SCH ×2 (12:50→16:36)
[2017-03-31 14:07] LABS: TROPONIN I 0.03 ng/ml (0.00-0.05)
--- NOTE | 2017-03-31 15:03 | HP ---
Admitting History and Physical - Primary Care Physician PCP: Ariadna Huizar - Admission Chief Complaint: SOB History of Present Illness: 56 yrs old male [facility] for CHF exacerbation . He was recently dc from [facility] for STR s/p Rt Fem- pop bypass. He states that when he was home, he admits he was non compliant with diet and meds. Did not take Lasix yesterday. SOB on exertion and rest, denies chest pain , Has legs swelling as well. History Source: Patient Limitations to Obtaining History: No Limitations - Past Medical History [employer]: Yes: CVA, Peripheral Neuropathy, Other (arterial insufficiency s/p left fem -tibial bypass- 2013, rt fem-pop bypass- 2017) Cardiovascular: Yes: CAD, CHF, HTN, Hyperlipdemia, Other (PAD) Pulmonary: Yes: COPD Renal/: Yes: Renal Inusuff Heme/Onc: Yes: Anemia Psych: Yes: Anxiety Endocrine: Yes: Diabetes Mellitus - Past Surgical History Past Surgical History: Yes: Bypass, Stent - Smoking History Smoking history: Current some day smoker Have you smoked in the past 12 months: Yes Aproximately how many cigarettes per day: 5 If you are a former smoker, when did you quit?: 09/2016 - Alcohol/Substance Use Hx Alcohol Use: No - Social History ADL: Independent History of Recent Travel: No Home Medications - Allergies Allergies/Adverse Reactions: Allergies Allergy/AdvReac Type Severity Reaction Status Date / Time No Known Drug Allergies Allergy Verified 03/31/17 06:00 - Home Medications Home Medications: Ambulatory Orders Glipizide [Glipizide ER] 5 mg PO DAILY 10/15/13 Amlodipine Besylate [Norvasc -] 5 mg PO DAILY 09/17/16 Clopidogrel Bisulfate [Plavix -] 75 mg PO DAILY 10/17/16 Carvedilol [Coreg -] 12.5 mg PO BID #60 tablet 10/24/16 Furosemide [Lasix -] 40 mg PO DAILY #30 tablet 01/24/17 Acetaminophen [Tylenol .Regular Strength -] 325 mg PO Q4H PRN #0 tablet Albuterol 0.083% Nebulizer Chantelle [Ventolin 0.083% Nebulizer Soln -] 1 amp NEB Q4H PRN #0 amp 02/25/17 Aspirin [ASA -] 81 mg PO DAILY tab.chew 02/25/17 Insulin Sliding Scale [Novolog Vial Sliding Scale -] 1 vial SQ TIDAC units Tamsulosin HCl [Flomax -] 0.8 mg PO DAILY@0830 #30 tab 02/25/17 Review of Systems - Review of Systems Constitutional: denies: Chills, Fever, Weakness Cardiovascular: reports: Edema, Shortness of Breath. denies: Chest Pain, Palpitations Respiratory: reports: Orthopnea, SOB, SOB on Exertion. denies: Cough, PND Physical Examination Vital Signs: Vital Signs Temperature 98.5 F 03/31/17 12:02 Pulse Rate 102 H 03/31/17 13:47 Respiratory Rate 22 03/31/17 13:47 Blood Pressure 142/65 03/31/17 13:47 O2 Sat by Pulse Oximetry (%) 100 03/31/17 13:47 Constitutional: Yes: No Distress, Calm Cardiovascular: Yes: Regular Rate and Rhythm Respiratory: Yes: Diminished Gastrointestinal: Yes: Normal Bowel Sounds, Soft, Abdomen, Obese. No: Distention, Tenderness Extremities: Yes: Erythema (left leg, slight warm and tender to touch) Edema: Yes Edema: LLE: 2+, RLE: 2+ Neurological: Yes: Alert, Oriented Labs: CBC, BMP 03/31/17 06:02 03/31/17 06:02 Imaging - Results Chest X-ray: Image Reviewed Ultrasound: Report Reviewed (no DVT) EKG: Image Reviewed Problem List - Problems (1) ASHD (arteriosclerotic heart disease) Code(s): I25.10 - ATHSCL HEART DISEASE OF [place] CORONARY ARTERY W/O ANG PCTRS (2) Cellulitis Code(s): L03.90 - CELLULITIS, UNSPECIFIED Qualifiers: Site of cellulitis: extremity Site of cellulitis of extremity: lower extremity Laterality: left Qualified Code(s): L03.116 - Cellulitis of left lower limb (3) Chronic renal insufficiency Code(s): N18.9 - CHRONIC KIDNEY DISEASE, UNSPECIFIED (4) Diastolic CHF Code(s): I50.30 - UNSPECIFIED DIASTOLIC (CONGESTIVE) HEART FAILURE Assessment/Plan PLAN CHF DECOMPENSATION -- Cardiac enzymes not elevated -- Cardiology eval noted -- Echo ordered -- Lasix iv -- monitor renal function -- check weights and I and O -- acute diastolic Chronic renal insufficiency -- creatinine is 1.9, baseline is around 1.5 -- lasix iv Cellulitis -- afebrile, no elevated WBC, but c/o slight pain when palpated -- will start Ancef DM-2 -- continue with meds -- check BGM DVT prophylaxis -- on Heparin sc Time spent - 30 min on assessment , plan, documentation and coordination of care
[2017-03-31] MEDS ORDERED: INSULIN (NOVOLOG) ASPART 100 UNITS/ML 10ML VIAL ONE (16:31)
[2017-03-31] MEDS: CARVEDILOL 12.5 MG TABLET (FP) PO SCH (22:31)
[2017-03-31 22:59] LABS: TROPONIN I 0.02 ng/ml (0.00-0.05)
[2017-04-01] MEDS: INSULIN (NOVOLOG) ASPART 100 UNITS/ML 10ML VIAL SQ SCH ×3 (06:32→16:34)
[2017-04-01] MEDS: glipiZIDE-XL 5 MG TAB.ER.24 PO SCH (06:40)
[2017-04-01 07:18] LABS: BASOPHIL 0.3 % (0-2.0); EOSINOPHIL 1.3 % (0-4.5); MCH 31.7 pg (25.7-33.7); MCHC 33.8 g/dl (32.0-35.9); MEAN CELL VOLUME 93.8 fl (80-96); MEAN PLT VOLUME 8.2 fl (7.5-11.1); NEUTROPHILS 78.8 % (42.8-82.8); PLATELET COUNT 162 K/MM3 (134-434)
[2017-04-01 07:25] LABS: ALBUMIN 2.7 g/dl (3.4-5.0); ANION GAP 7 (8-16); CO2 24 mmol/L (21-32); CREATININE 1.5 mg/dL (0.7-1.3); GLUCOSE,RANDOM 133 mg/dL (74-106); SGOT/AST 8 U/L (15-37); SGPT/ALT 17 U/L (12-78)
[2017-04-01 07:27] LABS: ALK PHOS 69 U/L (45-117); BILIRUBIN,TOTAL 0.3 mg/dL (0.2-1.0); TOT PROT 5.9 g/dl (6.4-8.2)
--- NOTE | 2017-04-01 09:13 | PN ---
Progress Note, Physician History of Present Illness: Severe PAD s/p RLE bypass in January 2017 CAD s/p PCI Acute on chronic renal failure Chronic diastolic CHF IDDM Prior CVA - Current Medication List Current Medications: Active Medications Acetaminophen (Tylenol -) 325 mg PO Q4H PRN PRN Reason: PAIN LEVEL 1-5 Albuterol Sulfate (Ventolin 0.083% Nebulizer Soln -) 1 amp NEB Q4H PRN PRN Reason: SHORT OF BREATH/WHEEZING Amlodipine Besylate (Norvasc -) 5 mg PO DAILY [facility] Aspirin (Asa -) 81 mg PO DAILY [facility] Last Admin: 03/31/17 09:35 Dose: 81 mg Carvedilol (Coreg -) 12.5 mg PO BID [facility] Last Admin: 03/31/17 22:31 Dose: 12.5 mg Clopidogrel Bisulfate (Plavix -) 75 mg PO DAILY [facility] Last Admin: 03/31/17 09:36 Dose: 75 mg Furosemide (Lasix Injection -) 40 mg IVPUSH DAILY [facility] Glipizide (Glucotrol Xl -) 5 mg PO DAILY@0700 [facility] Last Admin: 04/01/17 06:40 Dose: 5 mg Insulin Aspart (Novolog Vial) 0 units SQ TIDAC [facility] PRN Reason: Protocol Last Admin: 04/01/17 06:32 Dose: Not Given Tamsulosin HCl (Flomax -) 0.8 mg PO DAILY@0830 [facility] - Objective Vital Signs: Vital Signs Temperature 97.9 F 04/01/17 06:00 Pulse Rate 85 04/01/17 06:00 Respiratory Rate 20 04/01/17 06:00 Blood Pressure 138/66 04/01/17 06:00 O2 Sat by Pulse Oximetry (%) 96 03/31/17 21:00 Eyes: Yes: WNL, Conjunctiva Clear, EOM Intact HENT: Yes: WNL, Atraumatic, Normocephalic Neck: Yes: WNL, Supple, Trachea Midline Cardiovascular: Yes: WNL, Regular Rate and Rhythm Respiratory: Yes: WNL, Regular, CTA Bilaterally Gastrointestinal: Yes: WNL, Normal Bowel Sounds Genitourinary: Yes: WNL Musculoskeletal: Yes: WNL Extremities: Yes: Erythema Edema: Yes Integumentary: Yes: WNL Neurological: Yes: WNL, Alert, Oriented ...Motor Strength: WNL Psychiatric: Yes: WNL Labs: CBC, BMP 04/01/17 05:05 04/01/17 05:05 Laboratory Tests 03/31/17 03/31/17 03/31/17 06:02 06:02 12:45 WBC 7.1 RBC 2.54 L Hgb 8.3 L D Hct 24.1 L MCV 94.6 MCH 32.6 MCHC 34.4 RDW 16.0 H D Plt Count 169 D MPV 7.6 Neutrophils % 77.0 Lymphocytes % 9.3 D Monocytes % 7.0 Eosinophils % 6.1 H Basophils % 0.6 Sodium 141 Potassium 5.1 Chloride 112 H Carbon Dioxide 23 Anion Gap 6 L BUN 49 H D Creatinine 1.9 H D Creat Clearance w eGFR 36.59 POC Glucometer Random Glucose 180 H D Calcium 7.8 L Total Bilirubin 0.3 D AST 17 D ALT 20 Alkaline Phosphatase 82 D Creatine Kinase 428 H 337 H Creatine Kinase Index 1.3 1.4 CK-MB (CK-2) 5.811 H 5.013 H Troponin I 0.02 0.03 D B-Natriuretic Peptide 1410.47 H Total Protein 6.5 Albumin 3.1 L D 03/31/17 03/31/17 03/31/17 16:33 21:45 22:00 WBC RBC Hgb Hct MCV MCH MCHC RDW Plt Count MPV Neutrophils % Lymphocytes % Monocytes % Eosinophils % Basophils % Sodium Potassium Chloride Carbon Dioxide Anion Gap BUN Creatinine Creat Clearance w eGFR POC Glucometer 211 222 Random Glucose Calcium Total Bilirubin AST ALT Alkaline Phosphatase Creatine Kinase 238 Creatine Kinase Index 1.2 CK-MB (CK-2) 3.076 Troponin I 0.02 D B-Natriuretic Peptide Total Protein Albumin 04/01/17 04/01/17 04/01/17 05:05 05:05 06:16 WBC 8.0 RBC 2.64 L Hgb 8.4 L Hct 24.7 L MCV 93.8 MCH 31.7 MCHC 33.8 RDW 16.0 H Plt Count 162 MPV 8.2 Neutrophils % 78.8 Lymphocytes % 10.0 Monocytes % 9.6 Eosinophils % 1.3 Basophils % 0.3 Sodium 142 Potassium 4.6 Chloride 111 H Carbon Dioxide 24 Anion Gap 7 L BUN 44 H Creatinine 1.5 H D Creat Clearance w eGFR 48.07 POC Glucometer 144 Random Glucose 133 H D Calcium 8.0 L Total Bilirubin 0.3 AST 8 L D ALT 17 Alkaline Phosphatase 69 Creatine Kinase Creatine Kinase Index CK-MB (CK-2) Troponin I B-Natriuretic Peptide Total Protein 5.9 L Albumin 2.7 L Assessment/Plan Acute on chronic diastolic CHF Severe PAD s/p RLE bypass in January 2017 CAD s/p PCI Acute on chronic renal failure Chronic diastolic CHF IDDM Prior CVA Anemia REC: 1. IV Lasix daily with careful monitoring of renal function 2. Cycle cardiac enzymes -first set negative 3. Repeat echo to assure no change in EF 4. LE venous duplex 5. Work up of anemia (likely chronic disease) as per PMD
[2017-04-01] MEDS ORDERED: PT OWN MED DRAWER 7, Y5N ONE (09:35)
[2017-04-01] MEDS: TAMSULOSIN HCL 0.4 MG CAP.ER.24H (FP) PO SCH (09:38)
[2017-04-01] MEDS: CARVEDILOL 12.5 MG TABLET (FP) PO SCH ×2 (09:38→23:07)
[2017-04-01] MEDS: CLOPIDOGREL BISULFATE 75 MG TABLET (FP) PO SCH (09:38)
[2017-04-01] MEDS: FUROSEMIDE 40 MG/4 ML INJECTABLE VIAL IVPUSH SCH (09:38)
[2017-04-01] MEDS: ASPIRIN 81 MG CHEWABLE TABLETS PO SCH (09:38)
[2017-04-01] MEDS: amLODIPine BESYLATE 5 MG TABLET (FP) PO SCH (09:39)
--- NOTE | 2017-04-01 14:03 | PN ---
Progress Note (short form) - Note Progress Note: Pt seen/ examined chart reviewed feels better denies cp. dysnea better Vital Signs Temp 98.0 F 04/01/17 10:00 Pulse 84 04/01/17 10:00 Resp 20 04/01/17 10:00 BP 176/78 04/01/17 10:00 Pulse Ox 93 L 04/01/17 10:00 Intake & Output 03/31/17 04/01/17 04/01/17 23:59 11:59 23:59 Intake Total 480 200 Output Total 600 800 Balance -120 -600 Weight 190 lb 193 lb Intake: Oral 480 200 Output: Urine 600 800 Void 600 800 Other: Voiding Method Urinal Urinal # Unmeasured Voids Void 1 Bowel Movement No Height 5 ft 3 in Body Mass Index (BMI) 33.6 Weight Measurement Method Stated by Patient Standing Scale Active Medications Acetaminophen (Tylenol -) 325 mg PO Q4H PRN PRN Reason: PAIN LEVEL 1-5 Albuterol Sulfate (Ventolin 0.083% Nebulizer Soln -) 1 amp NEB Q4H PRN PRN Reason: SHORT OF BREATH/WHEEZING Amlodipine Besylate (Norvasc -) 5 mg PO DAILY [facility] Last Admin: 04/01/17 09:39 Dose: 5 mg Aspirin (Asa -) 81 mg PO DAILY [facility] Last Admin: 04/01/17 09:38 Dose: 81 mg Carvedilol (Coreg -) 12.5 mg PO BID [facility] Last Admin: 04/01/17 09:38 Dose: 12.5 mg Clopidogrel Bisulfate (Plavix -) 75 mg PO DAILY [facility] Last Admin: 04/01/17 09:38 Dose: 75 mg Furosemide (Lasix Injection -) 40 mg IVPUSH DAILY [facility] Last Admin: 04/01/17 09:38 Dose: 40 mg Glipizide (Glucotrol Xl -) 5 mg PO DAILY@0700 [facility] Last Admin: 04/01/17 06:40 Dose: 5 mg Insulin Aspart (Novolog Vial) 0 units SQ TIDAC [facility] PRN Reason: Protocol Last Admin: 04/01/17 11:52 Dose: 2 units Tamsulosin HCl (Flomax -) 0.8 mg PO DAILY@0830 [facility] Last Admin: 04/01/17 09:38 Dose: 0.8 mg CBC, BMP 04/01/17 05:05 04/01/17 05:05 echo- noted. Physical Exam. Constitutional: Yes: No Distress, Calm, comfortable Cardiovascular: Yes: Regular Rate and Rhythm Respiratory: Yes: Diminished at bases Gastrointestinal: Yes: Normal Bowel Sounds, Soft, Abdomen, Obese. No: Distention, Tenderness Extremities: Yes: Erythema (left leg, slight warm and tender to touch) Edema: Yes Edema: +1 Neurological: Yes: Alert, Oriented Imaging - Results Chest X-ray: Image Reviewed Ultrasound: Report Reviewed (no DVT) EKG: Image Reviewed Problem List - Problems (1) ASHD (arteriosclerotic heart disease) Code(s): I25.10 - ATHSCL HEART DISEASE OF [place] CORONARY ARTERY W/O ANG PCTRS (2) Cellulitis Code(s): L03.90 - CELLULITIS, UNSPECIFIED Qualifiers: Site of cellulitis: extremity Site of cellulitis of extremity: lower extremity Laterality: left Qualified Code(s): L03.116 - Cellulitis of left lower limb (3) Chronic renal insufficiency Code(s): N18.9 - CHRONIC KIDNEY DISEASE, UNSPECIFIED (4) Diastolic CHF Code(s): I50.30 - UNSPECIFIED DIASTOLIC (CONGESTIVE) HEART FAILURE Assessment/Plan PLAN CHF DECOMPENSATION ---better. -- Cardiology f/u noted -- Echo noted -- Lasix iv - continue -- monitor renal function -- check weights and I and O -- acute diastolic Chronic renal insufficiency -- creatinine is 1.9, baseline is around 1.5 -- monitor Cellulitis -- continue abx DM-2 -- continue with meds -- check BGM Anemia Monitor . pt reports has colonoscopy few yrs ago- around five. no evidence of bleeding anemia work up as out pt-- pt to follow with GI DVT prophylaxis -- on Heparin sc will follow.
[2017-04-02] MEDS: glipiZIDE-XL 5 MG TAB.ER.24 PO SCH (06:37)
[2017-04-02] MEDS: INSULIN (NOVOLOG) ASPART 100 UNITS/ML 10ML VIAL SQ SCH ×3 (06:37→16:37)
[2017-04-02 08:27] LABS: SGOT/AST 10 U/L (15-37)
--- NOTE | 2017-04-02 08:31 | PN ---
Progress Note, Physician History of Present Illness: Severe PAD s/p RLE bypass in January 2017 CAD s/p PCI Acute on chronic renal failure Chronic diastolic CHF IDDM Prior CVA - Current Medication List Current Medications: Active Medications Acetaminophen (Tylenol -) 325 mg PO Q4H PRN PRN Reason: PAIN LEVEL 1-5 Albuterol Sulfate (Ventolin 0.083% Nebulizer Soln -) 1 amp NEB Q4H PRN PRN Reason: SHORT OF BREATH/WHEEZING Amlodipine Besylate (Norvasc -) 5 mg PO DAILY [facility] Last Admin: 04/01/17 09:39 Dose: 5 mg Aspirin (Asa -) 81 mg PO DAILY [facility] Last Admin: 04/01/17 09:38 Dose: 81 mg Carvedilol (Coreg -) 12.5 mg PO BID [facility] Last Admin: 04/01/17 23:07 Dose: 12.5 mg Clopidogrel Bisulfate (Plavix -) 75 mg PO DAILY [facility] Last Admin: 04/01/17 09:38 Dose: 75 mg Furosemide (Lasix Injection -) 40 mg IVPUSH DAILY [facility] Last Admin: 04/01/17 09:38 Dose: 40 mg Glipizide (Glucotrol Xl -) 5 mg PO DAILY@0700 [facility] Last Admin: 04/02/17 06:37 Dose: 5 mg Insulin Aspart (Novolog Vial) 0 units SQ TIDAC [facility] PRN Reason: Protocol Last Admin: 04/02/17 06:37 Dose: Not Given Tamsulosin HCl (Flomax -) 0.8 mg PO DAILY@0830 [facility] Last Admin: 04/01/17 09:38 Dose: 0.8 mg - Objective Vital Signs: Vital Signs Temperature 97.8 F 04/02/17 05:52 Pulse Rate 74 04/02/17 05:52 Respiratory Rate 20 04/02/17 05:52 Blood Pressure 125/55 04/02/17 05:52 O2 Sat by Pulse Oximetry (%) 96 04/01/17 21:00 Eyes: Yes: WNL, Conjunctiva Clear, EOM Intact HENT: Yes: WNL, Atraumatic, Normocephalic Neck: Yes: WNL, Supple, Trachea Midline Cardiovascular: Yes: WNL, Regular Rate and Rhythm Respiratory: Yes: WNL, Regular, CTA Bilaterally Gastrointestinal: Yes: WNL, Normal Bowel Sounds Genitourinary: Yes: WNL Musculoskeletal: Yes: WNL Extremities: Yes: WNL Edema: Yes Integumentary: Yes: WNL Neurological: Yes: WNL, Alert, Oriented ...Motor Strength: WNL Psychiatric: Yes: WNL Assessment/Plan Acute on chronic diastolic CHF Severe PAD s/p RLE bypass in January 2017 CAD s/p PCI Acute on chronic renal failure Chronic diastolic CHF IDDM Prior CVA Anemia REC: 1. IV Lasix daily with careful monitoring of renal function 2. Cycle cardiac enzymes -first set negative 3. Repeat echo to assure no change in EF 4. LE venous duplex 5. Work up of anemia (likely chronic disease) as per PMD
[2017-04-02 08:36] LABS: EOSINOPHIL 7.3 % (0-4.5); MCH 31.9 pg (25.7-33.7); MCHC 33.9 g/dl (32.0-35.9); MEAN CELL VOLUME 94.1 fl (80-96); MEAN PLT VOLUME 8.6 fl (7.5-11.1); NEUTROPHILS 60.5 % (42.8-82.8); PLATELET COUNT 178 K/MM3 (134-434); RDW 16.3 % (11.9-15.9); WHITE BLOOD COUNT 5.7 K/mm3 (4.0-10.0)
[2017-04-02 08:46] LABS: ALBUMIN 2.5 g/dl (3.4-5.0); ALK PHOS 59 U/L (45-117); ANION GAP 7 (8-16); BILIRUBIN,TOTAL 0.2 mg/dL (0.2-1.0); CALCIUM 7.7 mg/dL (8.5-10.1); CO2 24 mmol/L (21-32); CREATININE 1.6 mg/dL (0.7-1.3); GLUCOSE,RANDOM 80 mg/dL (74-106); SGPT/ALT 16 U/L (12-78); TOT PROT 5.4 g/dl (6.4-8.2)
[2017-04-02] MEDS: ASPIRIN 81 MG CHEWABLE TABLETS PO SCH (09:52)
[2017-04-02] MEDS: CARVEDILOL 12.5 MG TABLET (FP) PO SCH ×2 (09:52→21:31)
[2017-04-02] MEDS: TAMSULOSIN HCL 0.4 MG CAP.ER.24H (FP) PO SCH (09:52)
[2017-04-02] MEDS: CLOPIDOGREL BISULFATE 75 MG TABLET (FP) PO SCH ×2 (09:52→09:53)
[2017-04-02] MEDS: FUROSEMIDE 40 MG/4 ML INJECTABLE VIAL IVPUSH SCH ×2 (09:53→14:17)
[2017-04-02] MEDS: amLODIPine BESYLATE 5 MG TABLET (FP) PO SCH (09:53)
--- NOTE | 2017-04-02 13:03 | PN ---
Progress Note (short form) - Note Progress Note: Pt seen/ examined c/c - allergies/ sneezing overall better wants nicotine patch- says smokes 3-4 cig/ day- still !! Vital Signs Temp 97.8 F 04/02/17 05:52 Pulse 74 04/02/17 05:52 Resp 20 04/02/17 05:52 BP 125/55 04/02/17 05:52 Pulse Ox 96 04/01/17 21:00 Intake & Output 04/01/17 04/02/17 04/02/17 23:59 11:59 23:59 Output Total 300 Balance -300 Weight 192 lb 6.4 oz Output: Urine 300 Void 300 Other: Voiding Method Urinal Toilet Bowel Movement Yes # Bowel Movements 1 Weight Measurement Method Standing Scale Active Medications Acetaminophen (Tylenol -) 325 mg PO Q4H PRN PRN Reason: PAIN LEVEL 1-5 Albuterol Sulfate (Ventolin 0.083% Nebulizer Soln -) 1 amp NEB Q4H PRN PRN Reason: SHORT OF BREATH/WHEEZING Amlodipine Besylate (Norvasc -) 5 mg PO DAILY [facility] Last Admin: 04/01/17 09:39 Dose: 5 mg Aspirin (Asa -) 81 mg PO DAILY [facility] Last Admin: 04/01/17 09:38 Dose: 81 mg Carvedilol (Coreg -) 12.5 mg PO BID [facility] Last Admin: 04/01/17 09:38 Dose: 12.5 mg Clopidogrel Bisulfate (Plavix -) 75 mg PO DAILY [facility] Last Admin: 04/01/17 09:38 Dose: 75 mg Furosemide (Lasix Injection -) 40 mg IVPUSH DAILY [facility] Last Admin: 04/01/17 09:38 Dose: 40 mg Glipizide (Glucotrol Xl -) 5 mg PO DAILY@0700 [facility] Last Admin: 04/01/17 06:40 Dose: 5 mg Insulin Aspart (Novolog Vial) 0 units SQ TIDAC [facility] PRN Reason: Protocol Last Admin: 04/01/17 11:52 Dose: 2 units Tamsulosin HCl (Flomax -) 0.8 mg PO DAILY@0830 [facility] Last Admin: 04/01/17 09:38 Dose: 0.8 mg CBC, BMP 04/02/17 07:15 04/02/17 07:15 Physical Exam. Constitutional: Yes: No Distress, Calm, comfortable. Mild congestion of nasal cavity Cardiovascular: Yes: Regular Rate and Rhythm Respiratory: Yes: Diminished at bases. Gastrointestinal: Yes: Normal Bowel Sounds, Soft, Abdomen, Obese. No: Distention, Tenderness Extremities: Yes: Erythema (left leg, slight warm and tender to touch) Edema: Yes Edema: +1 Neurological: Yes: Alert, Oriented Imaging - Results Chest X-ray: Image Reviewed Ultrasound: Report Reviewed (no DVT) EKG: Image Reviewed Problem List - Problems (1) ASHD (arteriosclerotic heart disease) Code(s): I25.10 - ATHSCL HEART DISEASE OF [place] CORONARY ARTERY W/O ANG PCTRS (2) Cellulitis Code(s): L03.90 - CELLULITIS, UNSPECIFIED Qualifiers: Site of cellulitis: extremity Site of cellulitis of extremity: lower extremity Laterality: left Qualified Code(s): L03.116 - Cellulitis of left lower limb (3) Chronic renal insufficiency Code(s): N18.9 - CHRONIC KIDNEY DISEASE, UNSPECIFIED (4) Diastolic CHF Code(s): I50.30 - UNSPECIFIED DIASTOLIC (CONGESTIVE) HEART FAILURE Assessment/Plan continue i/v lasix f/u labs nicotine patch. claritin smoking cessation counselling anemia work as out pt check sob daily oob - chair continue abx will follow
[2017-04-02] MEDS: LORATADINE 10 MG TABLET PO SCH (14:51)
[2017-04-02] MEDS: NICOTINE 7 MG/24 HOURS TOPICAL PATCH TD SCH (14:51)
[2017-04-02] MEDS: FUROSEMIDE 40 MG TABLET (FP) PO SCH ×2 (14:51→21:31)
[2017-04-03] MEDS: INSULIN (NOVOLOG) ASPART 100 UNITS/ML 10ML VIAL SQ SCH ×4 (06:05→16:12)
[2017-04-03 06:13] VITALS: BP 128/69; PULSE 70; TEMP 70
[2017-04-03] MEDS: glipiZIDE-XL 5 MG TAB.ER.24 PO SCH (06:14)
[2017-04-03 06:40] LABS: BASOPHIL 0.7 % (0-2.0); EOSINOPHIL 9.1 % (0-4.5); MCH 32.3 pg (25.7-33.7); MCHC 34.7 g/dl (32.0-35.9); MEAN CELL VOLUME 93.1 fl (80-96); MEAN PLT VOLUME 7.8 fl (7.5-11.1); NEUTROPHILS 57.5 % (42.8-82.8); PLATELET COUNT 166 K/MM3 (134-434); WHITE BLOOD COUNT 4.9 K/mm3 (4.0-10.0)
[2017-04-03 07:06] LABS: ALBUMIN 2.8 g/dl (3.4-5.0); ANION GAP 7 (8-16); BILIRUBIN,TOTAL 0.2 mg/dL (0.2-1.0); CALCIUM 8.4 mg/dL (8.5-10.1); CO2 28 mmol/L (21-32); CREATININE 1.6 mg/dL (0.7-1.3); GLUCOSE,RANDOM 81 mg/dL (74-106); SGOT/AST 7 U/L (15-37); SGPT/ALT 17 U/L (12-78)
[2017-04-03 07:08] LABS: ALK PHOS 60 U/L (45-117); TOT PROT 5.5 g/dl (6.4-8.2)
[2017-04-03] MEDS: TAMSULOSIN HCL 0.4 MG CAP.ER.24H (FP) PO SCH (08:54)
[2017-04-03] MEDS: LORATADINE 10 MG TABLET PO SCH (09:19)
[2017-04-03] MEDS: FUROSEMIDE 40 MG TABLET (FP) PO SCH (09:19)
[2017-04-03] MEDS: CLOPIDOGREL BISULFATE 75 MG TABLET (FP) PO SCH ×2 (09:19→09:20)
[2017-04-03] MEDS: NICOTINE 7 MG/24 HOURS TOPICAL PATCH TD SCH (09:19)
[2017-04-03] MEDS: amLODIPine BESYLATE 5 MG TABLET (FP) PO SCH (09:19)
[2017-04-03] MEDS: ASPIRIN 81 MG CHEWABLE TABLETS PO SCH (09:19)
[2017-04-03] MEDS: CARVEDILOL 12.5 MG TABLET (FP) PO SCH (09:20)
--- NOTE | 2017-04-03 10:10 | DS ---
Physical Examination Vital Signs: Vital Signs Temperature 70 F L 04/03/17 06:00 Pulse Rate 70 04/03/17 06:00 Respiratory Rate 20 04/03/17 06:00 Blood Pressure 128/69 04/03/17 06:00 O2 Sat by Pulse Oximetry (%) 99 04/02/17 20:33 Constitutional: Yes: No Distress, Calm Cardiovascular: Yes: Regular Rate and Rhythm Respiratory: Yes: CTA Bilaterally Gastrointestinal: Yes: Normal Bowel Sounds, Soft, Abdomen, Obese. No: Distention, Tenderness Extremities: Yes: Other (decreased erythema Left leg) Edema: No Labs: CBC, BMP 04/03/17 06:20 04/03/17 06:20 Discharge Summary Reason For Visit: CHF Current Active Problems COPD exacerbation (Acute) Shortness of breath (Acute) Hospital Course: Admitted for CHF decompensation diuresed well Feels better Stable for dc home Anemia work up as outpt Condition: Fair - Instructions Referrals: Ariadna Huizar MD [Primary Care Provider] - Adrianne Siu MD [Staff Physician] - Disposition: HOME - Home Medications Comprehensive Discharge Medication List: Ambulatory Orders Glipizide [Glipizide ER] 5 mg PO DAILY 10/15/13 Amlodipine Besylate [Norvasc -] 5 mg PO DAILY 09/17/16 Clopidogrel Bisulfate [Plavix -] 75 mg PO DAILY 10/17/16 Carvedilol [Coreg -] 12.5 mg PO BID #60 tablet 10/24/16 Furosemide [Lasix -] 40 mg PO DAILY #30 tablet 01/24/17 Acetaminophen [Tylenol .Regular Strength -] 325 mg PO Q4H PRN #0 tablet Albuterol 0.083% Nebulizer Chantelle [Ventolin 0.083% Nebulizer Soln -] 1 amp NEB Q4H PRN #0 amp 02/25/17 Aspirin [ASA -] 81 mg PO DAILY tab.chew 02/25/17 Insulin Sliding Scale [Novolog Vial Sliding Scale -] 1 vial SQ TIDAC units Tamsulosin HCl [Flomax -] 0.8 mg PO DAILY@0830 #30 tab 02/25/17
--- NOTE | 2017-04-03 10:12 | PN ---
Progress Note, Physician History of Present Illness: seen and examined today in nad. no new complaints. - Current Medication List Current Medications: Active Medications Acetaminophen (Tylenol -) 325 mg PO Q4H PRN PRN Reason: PAIN LEVEL 1-5 Albuterol Sulfate (Ventolin 0.083% Nebulizer Soln -) 1 amp NEB Q4H PRN PRN Reason: SHORT OF BREATH/WHEEZING Amlodipine Besylate (Norvasc -) 5 mg PO DAILY [facility] Last Admin: 04/03/17 09:19 Dose: 5 mg Aspirin (Asa -) 81 mg PO DAILY [facility] Last Admin: 04/03/17 09:19 Dose: 81 mg Carvedilol (Coreg -) 12.5 mg PO BID [facility] Last Admin: 04/03/17 09:20 Dose: 12.5 mg Clopidogrel Bisulfate (Plavix -) 75 mg PO DAILY [facility] Last Admin: 04/03/17 09:20 Dose: 75 mg Furosemide (Lasix -) 40 mg PO BID [facility] Last Admin: 04/03/17 09:19 Dose: 40 mg Glipizide (Glucotrol Xl -) 5 mg PO DAILY@0700 [facility] Last Admin: 04/03/17 06:14 Dose: 5 mg Insulin Aspart (Novolog Vial) 0 units SQ TIDAC [facility] PRN Reason: Protocol Last Admin: 04/03/17 06:05 Dose: Not Given Loratadine (Claritin -) 10 mg PO DAILY [facility] Last Admin: 04/03/17 09:19 Dose: 10 mg Nicotine (Nicoderm Patch -) 7 mg TD DAILY [facility] Last Admin: 04/03/17 09:19 Dose: 7 mg Tamsulosin HCl (Flomax -) 0.8 mg PO DAILY@0830 [facility] Last Admin: 04/03/17 08:54 Dose: 0.8 mg - Objective Vital Signs: Vital Signs Temperature 70 F L 04/03/17 06:00 Pulse Rate 70 04/03/17 06:00 Respiratory Rate 20 04/03/17 06:00 Blood Pressure 128/69 04/03/17 06:00 O2 Sat by Pulse Oximetry (%) 99 04/02/17 20:33 Constitutional: Yes: No Distress, Calm Eyes: Yes: Conjunctiva Clear, EOM Intact, PERRL HENT: Yes: Atraumatic, Normocephalic Neck: Yes: Supple, Trachea Midline Cardiovascular: Yes: Regular Rate and Rhythm, S1, S2. No: Pulse Irregular, Bruit, JVD, Gallop, Murmur, Rub, S3, S4, Varicosities Respiratory: Yes: Regular. No: Rales, Rhonchi, Wheezes Gastrointestinal: Yes: Normal Bowel Sounds, Soft. No: Distention, Tenderness Edema: Yes Edema: LLE: Trace, RLE: Trace Neurological: Yes: Alert, Oriented Psychiatric: Yes: Alert, Oriented Labs: CBC, BMP 04/03/17 06:20 04/03/17 06:20 - ....Imaging Chest X-ray: Report Reviewed, Image Reviewed EKG: Report Reviewed, Image Reviewed Other: Report Reviewed, Image Reviewed (tele-nsr, pvcs, no sig arrhythmias) Assessment/Plan Acute on chronic diastolic CHF Severe PAD s/p RLE bypass in January 2017 CAD s/p PCI Acute on chronic renal failure Chronic diastolic CHF IDDM Prior CVA Anemia REC: Overall close to euvolemic, cont po lasix at current dose -echo showed normal LV systolic function no sig valvular abnl -doppler LE showed no DVT -Outpatient f.up -pt acceptable for discharge from cardiac standpoint
== END 2017-04-03 17:39 | disposition home or self-care (01) | DRG 291 ==
LOC: JER 05:49 → JERBED 10:22 → J4W 14:12
PROVIDERS: ADMIT Internal Medicine; ATTEND Internal Medicine
DX: I13.0 Hypertensive heart and chronic kidney disease with heart failure and stage 1 through stage 4 chronic kidney disease, or unspecified chronic kidney disease (principal); I50.33 Acute on chronic diastolic (congestive) heart failure; J44.1 Chronic obstructive pulmonary disease with (acute) exacerbation; N17.9 Acute kidney failure, unspecified; L03.90 Cellulitis, unspecified; E78.00 Pure hypercholesterolemia, unspecified; I25.10 Atherosclerotic heart disease of native coronary artery without angina pectoris; I73.9 Peripheral vascular disease, unspecified; D64.9 Anemia, unspecified; E11.22 Type 2 diabetes mellitus with diabetic chronic kidney disease; N18.9 Chronic kidney disease, unspecified; I65.29 Occlusion and stenosis of unspecified carotid artery; R00.0 Tachycardia, unspecified; F41.8 Other specified anxiety disorders; R06.82 Tachypnea, not elsewhere classified; F17.210 Nicotine dependence, cigarettes, uncomplicated; E11.42 Type 2 diabetes mellitus with diabetic polyneuropathy; E66.8 Other obesity; Z68.33 Body mass index [BMI] 33.0-33.9, adult; Z95.5 Presence of coronary angioplasty implant and graft; Z79.4 Long term (current) use of insulin; Z86.73 Personal history of transient ischemic attack (TIA), and cerebral infarction without residual deficits
CPT/HCPCS: 36415; 71010-TC; 80053; 82550; 82553; 83880; 84484; 85025; 93005; 93010; 93306-TC; 93970-TC; 99285-25

== ENCOUNTER 2017-04-16 02:42 | Inpatient (IN) | payer OTHER ==
--- NOTE | 2017-04-16 03:47 | PDOC ---
History of Present Illness - General History Source: Patient Exam Limitations: No Limitations - History of Present Illness Initial Comments: 04/16/17 03:48 56yo Male patient w/ PmHx: COPD, CVA, HTN, Hypercholesterolema, DM, Cardiac stents x 2, Cardiac bypass, presents to ED c/o LLE swelling with began 2 weeks ago, worsened tonight. Patient also reports numbness and tingling in LUE radiating to his chest. Patient denies n/v/d, fever, cough, congestion, diff breathing, rash, abdominal pain, back pain, or any other complaints at this time. Occurred: reports: last week Severity: Yes: moderate Lower Extremity Pain Location: left: leg Method of Injury: No: unknown, assault, burn, direct blow, fell, incised, motor vehicle accident, sports injury, twisted, other Modifying Factors: worse with: None, cold therapy, immobilization, pain medication, rest, other <Tyshawn Cee - Last Filed: 04/16/17 05:00> <Phoebe Ashley - Last Filed: 04/16/17 09:14> - General Chief Complaint: Edema Stated Complaint: SWOLLEN LEG/CHEST PAIN Time Seen by Provider: 04/16/17 03:31 Lower Ext. Injury Location - Specific Injury Location Legs: left: soft tissue tenderness, limited range of motion, pain, swelling <Tyshawn Cee - Last Filed: 04/16/17 05:00> Extremity Pain Location - Extremity Pain Location Extremity Pain Locations: left: leg <Tyshawn Cee - Last Filed: 04/16/17 05:00> Past History - Travel Traveled outside of the country in the last 30 days: No Close contact w/someone who was outside of country & ill: No - Past Medical History Anemia: No Asthma: No Cancer: No Cardiac Disorders: Yes (stent x 2) CVA: Yes (2009, 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) COPD: No CHF: No Dementia: No Diabetes: Yes GI Disorders: No Disorders: No HTN: Yes Hypercholesterolemia: Yes Liver Disease: No Seizures: No Thyroid Disease: No - Surgical History Abdominal Surgery: No Appendectomy: No Cardiac Surgery: Yes (STENTS X2) Cholecystectomy: No Lung Surgery: No Neurologic Surgery: No Orthopedic Surgery: No - Immunization History Immunization Up to Date: Yes - Suicide/Smoking/Psychosocial Hx Smoking Status: Yes Smoking History: Current every day smoker Have you smoked in the past 12 months: Yes Number of Cigarettes Smoked Daily: 10 If you are a former smoker, when did you quit?: 09/2016 Cigars Per Day: 0 Information on smoking cessation initiated: No 'Breaking Loose' booklet given: 02/09/17 Hx Alcohol Use: No Drug/Substance Use Hx: No Substance Use Type: None Hx Substance Use Treatment: No <Tyshawn Cee - Last Filed: 04/16/17 05:00> <Phoebe Ashley - Last Filed: 04/16/17 09:14> - Past Medical History Allergies/Adverse Reactions: Allergies Allergy/AdvReac Type Severity Reaction Status Date / Time No Known Drug Allergies Allergy Verified 04/16/17 02:52 Home Medications: Ambulatory Orders Glipizide [Glipizide ER] 5 mg PO DAILY 10/15/13 Amlodipine Besylate [Norvasc -] 5 mg PO DAILY 09/17/16 Clopidogrel Bisulfate [Plavix -] 75 mg PO DAILY 10/17/16 Carvedilol [Coreg -] 12.5 mg PO BID #60 tablet 10/24/16 Acetaminophen [Tylenol .Regular Strength -] 325 mg PO Q4H PRN #0 tablet Aspirin [ASA -] 81 mg PO DAILY tab.chew 02/25/17 Tamsulosin HCl [Flomax -] 0.8 mg PO DAILY@0830 #30 tab 02/25/17 Furosemide [Lasix -] 40 mg PO BID #90 tablet 04/03/17 Nicotine Patch [Nicoderm Patch -] 7 mg TD DAILY #30 patch 04/03/17 Review of Systems - Review of Systems Able to Perform ROS?: Yes Is the patient limited Wolof proficient: No Musculoskeletal: Yes: Other (Leg Pain with swelling and redness.) All Other Systems: Reviewed and Negative <Tyshawn Cee - Last Filed: 04/16/17 05:00> *Physical Exam - Vital Signs Last Vital Signs Temp Pulse Resp BP Pulse Ox 99.3 F 110 H 16 136/64 96 04/16/17 02:52 04/16/17 02:52 04/16/17 02:52 04/16/17 02:52 04/16/17 02:52 - Physical Exam General Appearance: Yes: Nourished, Appropriately Dressed. No: Apparent Distress, Mild Distress, Moderate Distress, Severe Distress Respiratory/Chest: positive: Lungs Clear, Normal Breath Sounds. negative: Chest Tender, Respiratory Distress, Accessory Muscle Use, Labored Respiration, Rapid RR, Rhonchi, Stridor, Wheezing Cardiovascular: positive: Tachycardia Gastrointestinal/Abdominal: positive: Normal Bowel Sounds, Soft. negative: Tender, Distended, Guarding, Rebound, Tenderness Musculoskeletal: positive: Normal Inspection. negative: CVA Tenderness, Decreased Range of Motion, Vertebral Tenderness Extremity: positive: Normal Capillary Refill, Delayed Capillary Refill, Swelling , Erythema, Inflammation. 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 NML intact, Fully Oriented, Alert, Normal Mood/ Affect, Normal Response, Motor Strength 5/5 <Tyshawn Cee - Last Filed: 04/16/17 05:00> - Vital Signs Last Vital Signs Temp Pulse Resp BP Pulse Ox 99.3 F 80 16 124/56 95 04/16/17 02:52 04/16/17 07:15 04/16/17 02:52 04/16/17 07:15 04/16/17 07:15 <Phoebe Ashley - Last Filed: 04/16/17 09:14> ED Treatment Course - RADIOLOGY Radiology Studies Ordered: Category Date Time Status LEG TIB/FIB-LEFT [RAD] Stat Radiology 04/16/17 03:44 Ordered <Tyshawn Cee - Last Filed: 04/16/17 05:00> - LABORATORY CBC & Chemistry Diagram: 04/16/17 04:57 04/16/17 04:57 - ADDITIONAL ORDERS Additional order review: Laboratory Results 04/16/17 04/16/17 04/16/17 07:00 05:53 04:57 PT with INR INR PTT (Actin FS) Sodium 142 Potassium 4.4 Chloride 109 H Carbon Dioxide 26 Anion Gap 7 L BUN 33 H D Creatinine 1.4 H Creat Clearance w eGFR 52.05 Random Glucose 162 H D Calcium 8.0 L Total Bilirubin 0.3 D AST 9 L D ALT 15 Alkaline Phosphatase 79 D Creatine Kinase 129 Troponin I 0.06 H D B-Natriuretic Peptide 5807.97 H Total Protein 5.7 L Albumin 2.8 L Stool Occult Blood Negative Blood Type O POSITIVE Antibody Screen Negative 04/16/17 04:57 PT with INR 13.60 H INR 1.20 H PTT (Actin FS) 26.9 Sodium Potassium Chloride Carbon Dioxide Anion Gap BUN Creatinine Creat Clearance w eGFR Random Glucose Calcium Total Bilirubin AST ALT Alkaline Phosphatase Creatine Kinase Troponin I B-Natriuretic Peptide Total Protein Albumin Stool Occult Blood Blood Type Antibody Screen 04/16/17 04:57 RBC 2.52 L MCV 93.4 MCHC 33.8 RDW 16.3 H MPV 8.0 Neutrophils % 72.9 D Lymphocytes % 13.0 D Monocytes % 8.9 Eosinophils % 5.0 H Basophils % 0.2 - Medications Given in the ED: ED Medications Discontinued Medications Generic Name Dose Route Start Last Admin Trade Name Michael PRN Reason Stop Dose Admin Vancomycin HCl 1,000 mg/ 250 mls @ 250 mls/hr 04/16/17 05:08 04/16/17 07:00 Dextrose IVPB 04/16/17 06:07 250 mls/hr ONCE ONE Administration Protocol Piperacillin Sod/Tazobactam Sod 3.375 gm 04/16/17 05:09 04/16/17 05:53 Zosyn 3.375gm Ivpb (Pre-Docked) IVPB 04/16/17 05:10 3.375 gm ONCE ONE Administration Protocol <Phoebe Ashley - Last Filed: 04/16/17 09:14> Medical Decision Making - Medical Decision Making 04/16/17 09:14 Dr. Malinda Islas was paged and notified via phone service. <Phoebe Ashley - Last Filed: 04/16/17 09:14> *DC/Admit/Observation/Transfer <Tyshawn Cee - Last Filed: 04/16/17 05:00> <Phoebe Ashley - Last Filed: 04/16/17 09:14> - Referrals Referrals: Malinda Ilsas MD [Primary Care Provider] - - Patient Instructions - Post Discharge Activity
[2017-04-16 05:07] LABS: BASO % 0.2 % (0-2.0); HEMATOCRIT 23.6 % (35.4-49); MCH 31.6 pg (25.7-33.7); MCHC 33.8 g/dl (32.0-35.9); MEAN CELL VOLUME 93.4 fl (80-96); MONO % 8.9 % (3.8-10.2); NEUT % 72.9 % (42.8-82.8); PLATELET COUNT 176 K/MM3 (134-434); RBC 2.52 M/mm3 (4.00-5.60); RDW 16.3 % (11.9-15.9); WHITE BLOOD COUNT 7.3 K/mm3 (4.0-10.0)
[2017-04-16] MEDS ORDERED: VANCOMYCIN 1,000 MG in DEXTROSE 5%-WATER - 250 ML IVPB ONE (05:08)
[2017-04-16] MEDS ORDERED: PIPERACILLIN/TAZOB 3.375 GM/50 ML PRE-DOCKED IVPB ONE (05:09)
[2017-04-16 05:21] LABS: INR 1.2 (0.82-1.09); PROTHROMBIN TIME (PATIENT) 13.6 SEC (9.98-11.88)
[2017-04-16 05:23] LABS: ACTIVATED PTT 26.9 SECONDS (26.9-34.4)
[2017-04-16 05:31] LABS: ALBUMIN 2.8 g/dl (3.4-5.0); ANION GAP 7 (8-16); BILIRUBIN,TOTAL 0.3 mg/dL (0.2-1.0); BLOOD UREA NITROGEN 33 mg/dL (7-18); CHLORIDE 109 mmol/L (98-107); CO2 26 mmol/L (21-32); CREATININE 1.4 mg/dL (0.7-1.3); GLUCOSE,RANDOM 162 mg/dL (74-106); POTASSIUM 4.4 mmol/L (3.5-5.1); SGOT/AST 9 U/L (15-37); SGPT/ALT 15 U/L (12-78); SODIUM 142 mmol/L (136-145); TOT PROT 5.7 g/dl (6.4-8.2)
[2017-04-16 05:34] LABS: ALK PHOS 79 U/L (45-117)
[2017-04-16] MEDS ORDERED: PIPERACILLIN/TAZOB 3.375 GM 3.375 GM/50 ML BAG IVPB ONE (05:44)
[2017-04-16] MEDS ORDERED: VANCOMYCIN 1 GRAM (PRE-DOCKED) 1,000 MG/250 ML BAG IVPB ONE (06:52)
--- NOTE | 2017-04-16 07:16 | PDOC ---
*Physical Exam - Vital Signs Last Vital Signs Temp Pulse Resp BP Pulse Ox 99.3 F 110 H 16 136/64 99 04/16/17 02:52 04/16/17 02:52 04/16/17 02:52 04/16/17 02:52 04/16/17 04:00 - Physical Exam General Appearance: Yes: Appropriately Dressed. No: Apparent Distress HEENT: positive: Normal Voice Neck: positive: Supple Respiratory/Chest: negative: Respiratory Distress Extremity: positive: Pedal Edema (3+ to LLE w/ circumferential erythema to ankle /LLE w/ warmth and ttp, unable to palpate pedal pulses) Integumentary: positive: Dry, Warm Neurologic: positive: Fully Oriented, Alert, Normal Mood/Affect ED Treatment Course - LABORATORY CBC & Chemistry Diagram: 04/16/17 04:57 04/16/17 04:57 - ADDITIONAL ORDERS Additional order review: Laboratory Results 04/16/17 04/16/17 04/16/17 05:53 04:57 04:57 PT with INR 13.60 H INR 1.20 H PTT (Actin FS) 26.9 Sodium 142 Potassium 4.4 Chloride 109 H Carbon Dioxide 26 Anion Gap 7 L BUN 33 H D Creatinine 1.4 H Creat Clearance w eGFR 52.05 Random Glucose 162 H D Calcium 8.0 L Total Bilirubin 0.3 D AST 9 L D ALT 15 Alkaline Phosphatase 79 D Creatine Kinase 129 Troponin I 0.06 H D Total Protein 5.7 L Albumin 2.8 L Stool Occult Blood Negative 04/16/17 04:57 RBC 2.52 L MCV 93.4 MCHC 33.8 RDW 16.3 H MPV 8.0 Neutrophils % 72.9 D Lymphocytes % 13.0 D Monocytes % 8.9 Eosinophils % 5.0 H Basophils % 0.2 - Medications Given in the ED: ED Medications Discontinued Medications Generic Name Dose Route Start Last Admin Trade Name Freq PRN Reason Stop Dose Admin Vancomycin HCl 1,000 mg/ 250 mls @ 250 mls/hr 04/16/17 05:08 04/16/17 07:00 Dextrose IVPB 04/16/17 06:07 250 mls/hr ONCE ONE Administration Protocol Piperacillin Sod/Tazobactam Sod 3.375 gm 04/16/17 05:09 04/16/17 05:53 Zosyn 3.375gm Ivpb (Pre-Docked) IVPB 04/16/17 05:10 3.375 gm ONCE ONE Administration Protocol Medical Decision Making - Medical Decision Making 04/16/17 07:12 Patient signed out to me at 7 AM 56-year-old male, history of hypertension, hyperlipidemia, COPD, CVA, cardiac stents, CABG, CHF, PAD s/p angioplasty of LLE 3 years ago, RLE 2 months ago, here with left lower extremity swelling and pain. Appears cellulitic on exam as per prior team. No fever with normal white count. Given vanc and zosyn w/ XR and US pending. Hemoglobin 8, which is near patient's baseline with negative guaiac stools in ED. Elevated troponin incidentally noted. No complaints of chest pain or shortness of breath and no signs of ischemia on EKG, as per prior team. Unlikely ACS. Tropenemia possibly due to demand ischemia 2/2 anemia, will trend trop. Patient to be admitted to D, Dr. Malinda Buchanan 04/16/17 07:35 04/16/17 09:[address] Ariadna Huizar,who is covering for Dr. Buchanan, and patient admitted. XR unremarkable. US report pending *DC/Admit/Observation/Transfer Diagnosis at time of Disposition: Cellulitis of left leg - Discharge Dispostion Condition at time of disposition: Fair Admit: Yes - Referrals Referrals: Malinda Islas MD [Primary Care Provider] - - Patient Instructions - Post Discharge Activity
[2017-04-16 09:04] LABS: N-TERMINAL BNP 5807.97 pg/ml (5-125)
[2017-04-16] MEDS ORDERED: ACETAMINOPHEN 325 MG TABLET (FP) PO PRN (11:48)
--- NOTE | 2017-04-16 11:58 | HP ---
Admitting History and Physical - Primary Care Physician PCP: Ariadna Huizar - Admission History of Present Illness: 56 year old man with extensive history of Acute on chronic diastolic CHF, Severe PAD s/p RLE bypass in January 2017, CAD s/p PCI, Acute on chronic renal failure, IDDM, Prior CVA, Anemia recently admitted with acute on chronic diastolic CHF and cellulitis now readmitted with worsening lower extremity edema and LLE erythema / recurrent cellulitis. pt given abx to be admitted to floor pt well known to me from past admissions chart reviewed case also discussed with er physician . pt seen in er. at present denies cp- had complained left arm pain earlier History Source: Patient, Medical Record Limitations to Obtaining History: No Limitations - Past Medical History DEVIL DOG: Yes: CVA, Peripheral Neuropathy, Other (arterial insufficiency s/p left fem -tibial bypass- 2013, rt fem-pop bypass- 2016) Cardiovascular: Yes: CAD, CHF, HTN, Hyperlipdemia, Other (PAD) Pulmonary: Yes: COPD Renal/: Yes: Renal Inusuff Heme/Onc: Yes: Anemia Psych: Yes: Anxiety Endocrine: Yes: Diabetes Mellitus - Past Surgical History Past Surgical History: Yes: Bypass, Stent - Smoking History Smoking history: Current every day smoker Have you smoked in the past 12 months: Yes Aproximately how many cigarettes per day: 10 If you are a former smoker, when did you quit?: 09/2016 - Alcohol/Substance Use Hx Alcohol Use: No - Social History ADL: Independent History of Recent Travel: No Home Medications - Allergies Allergies/Adverse Reactions: Allergies Allergy/AdvReac Type Severity Reaction Status Date / Time No Known Drug Allergies Allergy Verified 04/16/17 02:52 - Home Medications Home Medications: Ambulatory Orders Glipizide [Glipizide ER] 5 mg PO DAILY 10/15/13 Amlodipine Besylate [Norvasc -] 5 mg PO DAILY 09/17/16 Clopidogrel Bisulfate [Plavix -] 75 mg PO DAILY 10/17/16 Carvedilol [Coreg -] 12.5 mg PO BID #60 tablet 10/24/16 Acetaminophen [Tylenol .Regular Strength -] 325 mg PO Q4H PRN #0 tablet Aspirin [ASA -] 81 mg PO DAILY tab.chew 02/25/17 Tamsulosin HCl [Flomax -] 0.8 mg PO DAILY@0830 #30 tab 10/28/17 Furosemide [Lasix -] 40 mg PO BID #90 tablet 04/03/17 Nicotine Patch [Nicoderm Patch -] 7 mg TD DAILY #30 patch 04/03/17 Review of Systems - Review of Systems Constitutional: reports: No Symptoms Eyes: reports: No Symptoms Neck: reports: No Symptoms Cardiovascular: reports: Chest Pain Respiratory: reports: No Symptoms Gastrointestinal: reports: No Symptoms Genitourinary: reports: No Symptoms Neurological: reports: No Symptoms, Pre-Existing Deficit Psychiatric: reports: Anxiety Physical Examination Vital Signs: Vital Signs Temperature 99.3 F 04/16/17 02:52 Pulse Rate 80 04/16/17 07:15 Respiratory Rate 16 04/16/17 02:52 Blood Pressure 124/56 04/16/17 07:15 O2 Sat by Pulse Oximetry (%) 95 04/16/17 07:15 Constitutional: Yes: No Distress, Calm, Obese Eyes: Yes: Conjunctiva Clear Neck: Yes: Supple Cardiovascular: Yes: Regular Rate and Rhythm Respiratory: Yes: Diminished Gastrointestinal: Yes: Normal Bowel Sounds, Soft Extremities: Yes: Erythema (left lower extremity) Edema: RUE: 2+, LLE: 2+ Neurological: Yes: Alert Labs: CBC, BMP 04/16/17 04:57 04/16/17 04:57 Imaging - Results Chest X-ray: Report Reviewed Ultrasound: Report Reviewed EKG: Report Reviewed Problem List - Problems (1) Cellulitis of left leg Code(s): L03.116 - CELLULITIS OF LEFT LOWER LIMB (2) ASHD (arteriosclerotic heart disease) Code(s): I25.10 - ATHSCL HEART DISEASE OF [place] CORONARY ARTERY W/O ANG PCTRS (3) Arterial insufficiency of lower extremity Code(s): I73.9 - PERIPHERAL VASCULAR DISEASE, UNSPECIFIED (4) Chronic renal insufficiency Code(s): N18.9 - CHRONIC KIDNEY DISEASE, UNSPECIFIED (5) Diabetes Code(s): E11.9 - TYPE 2 DIABETES MELLITUS WITHOUT COMPLICATIONS Qualifiers: Diabetes mellitus type: type 2 Diabetes mellitus complication detail: with nephropathy (6) Diastolic CHF Code(s): I50.30 - UNSPECIFIED DIASTOLIC (CONGESTIVE) HEART FAILURE (7) Edema Code(s): R60.9 - EDEMA, UNSPECIFIED Qualifiers: Edema type: unspecified Qualified Code(s): R60.9 - Edema, unspecified (8) Smoker unmotivated to quit Code(s): F17.200 - NICOTINE DEPENDENCE, UNSPECIFIED, UNCOMPLICATED (9) Anemia Code(s): D64.9 - ANEMIA, UNSPECIFIED Assessment/Plan Abx i/d consult vascuular consult. cardiology consult - discussed-with Dr. Melendez.-- will follow will need eventually anemia work up also unable to do as out pt-- pt not compliant. smoking cessation counselling provided again, will follow. will discuss with gi also time spend 35 min in examining / documenting and coordating care.
[2017-04-16 12:42] VITALS: BMI 34.5
--- NOTE | 2017-04-16 12:58 | CON.GI ---
Consult Consult Specialty:: Dr. Kelley for Dr. Jones Referred by:: Dr. Regino Huizar Reason for Consultation:: Anemia - History of Present Illness Chief Complaint: My left leg was red History of Present Illness: Dr. Kelley covering for Dr. Jones 56M admitted for evaluation of LLE erythema. Called to evaluate anemia. In review of dINK system Mr. Solis has been anemic from at least 02/14. Hgb was 9.3 in january, 8.3 03/31 and 8.0 today. He denies any abdominal pain, unintentional weight loss, dysphagia, rectal bleeding, change in bowel habits, melena. He describes having had colonoscopies in the past with Dr. Conde and most recently with Dr. Purcell in 2010. Review of pathology from the [facility] system 04/10 revealed at least 4 tubular adenomas removed by Dr. Purcell during the colonoscopy at that time. He has never had an upper endoscopy His mother had a history of colon cancer in her 70's. his tropoinins were elevated on admission and he described numbness in his left chest (this has not happened in the past) as well as numbness down his left arm (this has happened in the past). Stool specimen sent was negative for occult blood. 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 Place of : [facility] History of Recent Travel: No Home Medications - Allergies Allergies/Adverse Reactions: Allergies Allergy/AdvReac Type Severity Reaction Status Date / Time No Known Drug Allergies Allergy Verified 04/16/17 02:52 - Home Medications Home Medications: Ambulatory Orders Glipizide [Glipizide ER] 5 mg PO DAILY 10/15/13 Amlodipine Besylate [Norvasc -] 5 mg PO DAILY 09/17/16 Clopidogrel Bisulfate [Plavix -] 75 mg PO DAILY 10/17/16 Carvedilol [Coreg -] 12.5 mg PO BID #60 tablet 10/24/16 Acetaminophen [Tylenol .Regular Strength -] 325 mg PO Q4H PRN #0 tablet Aspirin [ASA -] 81 mg PO DAILY tab.chew 02/25/17 Tamsulosin HCl [Flomax -] 0.8 mg PO DAILY@0830 #30 tab 02/25/17 Furosemide [Lasix -] 40 mg PO BID #90 tablet 04/03/17 Nicotine Patch [Nicoderm Patch -] 7 mg TD DAILY #30 patch 04/03/17 Family Disease History - Family Disease History Family Disease History: Other: Father ( 62: lung ca), Mother ( 72: colon cancer), Sister (1, healthy) Other Family History: No children. Mother with h/o colon cancer in 70's Review of Systems - Review of Systems Constitutional: denies: Loss of Appetite, Unintentional Wgt. Loss Cardiovascular: denies: Chest Pain, Shortness of Breath Respiratory: reports: SOB on Exertion. denies: Cough Gastrointestinal: denies: Abdominal Pain, Constipation, Diarrhea, Dysphagia, Melena, Nausea, Rectal Bleeding, Vomiting, Vomiting Blood Neurological: reports: Numbness (Left chest and LUE) Physical Exam-GI Vital Signs: Vital Signs Temperature 99.3 F 04/16/17 02:52 Pulse Rate 88 04/16/17 12:00 Respiratory Rate 18 04/16/17 12:00 Blood Pressure 143/74 04/16/17 12:00 O2 Sat by Pulse Oximetry (%) 98 04/16/17 12:00 Constitutional: Yes: Calm Eyes: No: Sclera Icterus Cardiovascular: Yes: Regular Rate and Rhythm. No: Murmur Respiratory: Yes: CTA Bilaterally Gastrointestinal Inspection: Yes: Scars (in right groin (secondary to vascular stenting)). No: Distention ...Auscultate: Yes: Normoactive Bowel Sounds ...Palpate: No: Hepatomegaly, Splenomegaly, Tenderness ...Percussion: No: Tympanitic ...Rectal Exam: Yes: Guaiac Negative (+ external skin tags, No masses, 2+ prostate, light brown stool, guaiac negative) Extremities: Yes: Other (contracture LUE) Edema: Yes (with LLE erythema) Neurological: Yes: Alert, Oriented Labs: CBC, BMP 04/16/17 04:57 04/16/17 04:57 INR, PTT INR 1.20 (0.82-1.09) H 04/16/17 04:57 Problem List - Problems (1) Normocytic anemia Assessment/Plan: No overt GI bleeding and guaiac negative on exam Mr. Solis does not recall being told of anemia but anemia predates to 02/14. Discussed that anemia could be caused by multiple factors including other medical problems and problems with your body producing blood cells. I also explained that GI tract blood loss from bleeding blood vessels, polyps or tumors of the intestinal tract such as colon cancer could contribute to anemia as well. Given his family history of colon polyps and family history of colon cancer Mr. Solis will need repeat colonoscopy as well as EGD. I discussed this with Mr. Solis as well as with Dr. Huizar. Given elevated troponins and left chest numbness described prior to admission, Mr. Solis will need to be cleared prior to testing. Ideally Plavix would be held for 5 days while continuing ASA therapy prior to procedures as well. If given h/o prior CVA and LE vascular stents Mr. Solis was felt to be high risk while off of dual antiplatelet therapy , The potential increased risk of bleeding would have to be discussed with him prior to the procedures and performed while both on ASA and Plavix. Dr. Huizar is concerned regarding Mr. Solis's compliance as an outpatient and would like him to have procedures performed while he is an inpatient. Check Iron studies Consider heme evaluation Code(s): D64.9 - ANEMIA, UNSPECIFIED
--- NOTE | 2017-04-16 13:39 | PN ---
Progress Note, Physician History of Present Illness: 56 year old man with a history of Acute on chronic diastolic CHF, Severe PAD s/ p RLE bypass in January 2017, CAD s/p PCI, Acute on chronic renal failure, IDDM , Prior CVA, Anemia recently admitted with acute on chronic diastolic CHF and cellulitis now readmitted with worsening lower extremity edema and LLE erythema concerning for recurrent cellulitis. Pt seen and examined today ambulatory in [facility]. denies any chest pain, sob, palpitations, no pnd, orthopnea. - Current Medication List Current Medications: Active Medications Acetaminophen (Tylenol -) 325 mg PO Q4H PRN PRN Reason: PAIN LEVEL 1-5 Aspirin (Asa -) 81 mg PO DAILY [facility] Carvedilol (Coreg -) 12.5 mg PO BID [facility] Clopidogrel Bisulfate (Plavix -) 75 mg PO DAILY [facility] Furosemide (Lasix -) 40 mg PO BID@0600,1800 [facility] Heparin Sodium (Porcine) (Heparin -) 5,000 unit SQ BID [facility] Insulin Aspart (Novolog Vial Sliding Scale -) 1 vial SQ BIDAC [facility] PRN Reason: Protocol Insulin Detemir (Levemir Vial) 8 units SQ HS [facility] Nicotine (Nicoderm Patch -) 7 mg TD DAILY [facility] Tamsulosin HCl (Flomax -) 0.8 mg PO DAILY@0830 [facility] - Objective Vital Signs: Vital Signs Temperature 99.3 F 04/16/17 02:52 Pulse Rate 88 04/16/17 12:00 Respiratory Rate 18 04/16/17 12:00 Blood Pressure 143/74 04/16/17 12:00 O2 Sat by Pulse Oximetry (%) 98 04/16/17 12:00 Constitutional: Yes: No Distress, Calm Eyes: Yes: Conjunctiva Clear, EOM Intact, PERRL HENT: Yes: Atraumatic, Normocephalic Neck: Yes: Supple, Trachea Midline Cardiovascular: Yes: Regular Rate and Rhythm, S1, S2. No: Bradycardia, Tachycardia, Pulse Irregular, Bruit, JVD, Gallop, Murmur, Rub, S3, S4, Varicosities Respiratory: Yes: Regular, Diminished. No: Rales, Rhonchi, Wheezes Gastrointestinal: Yes: Normal Bowel Sounds, Soft. No: Distention, Tenderness Extremities: Yes: Erythema Edema: Yes Edema: RUE: 2+, LLE: 2+ Peripheral Pulses WNL: No Neurological: Yes: Alert, Oriented Psychiatric: Yes: Alert, Oriented Labs: CBC, BMP 04/16/17 04:57 04/16/17 04:57 INR, PTT INR 1.20 (0.82-1.09) H 04/16/17 04:57 - ....Imaging Chest X-ray: Report Reviewed, Image Reviewed EKG: Report Reviewed, Image Reviewed Other: Report Reviewed, Image Reviewed Assessment/Plan 56 year old man with a history of Acute on chronic diastolic CHF, Severe PAD s/ p RLE bypass in January 2017, CAD s/p PCI, Acute on chronic renal failure, IDDM , Prior CVA, Anemia recently admitted with acute on chronic diastolic CHF and cellulitis now readmitted with worsening lower extremity edema and LLE erythema concerning for recurrent cellulitis. Acute on chronic diastolic CHF Severe PAD s/p RLE bypass in January 2017 CAD s/p PCI Acute on chronic renal failure Chronic diastolic CHF IDDM Prior CVA Anemia REC: Increase in chronic lower ext edema due to venous insuff and acute on chronic diastolic CHF -cont lasix 40mg po bid for now and if no improvement in edema with tx of cellulitis will change to IV Lasix -Abx for cellulitis, pt given Vanc and Zosyn in ER -last echo showed normal LV systolic function no sig valvular abnl -doppler LE last admission showed no DVT -troponin is not significantly elevated, no current concern for ACS, due to CKD , infection, chronic CHF -cont Coreg, ASA, Plavix
[2017-04-16] MEDS ORDERED: PEG3350/SOD SULF,BICARB,CL/KCL 4,000 ML SOLN.RECON PO STA (14:56)
[2017-04-16] MEDS ORDERED: BISACODYL 5 MG TABLET.DR (FP) PO ONE (17:00)
[2017-04-16] MEDS: FUROSEMIDE 40 MG TABLET (FP) PO SCH (17:40)
[2017-04-16] MEDS: INSULIN SLIDING SCALE (NOVOLOG) 1 VIAL SQ SCH (17:40)
[2017-04-16] MEDS: HEPARIN NA (PORCINE) 5,000 UNITS/ML 1ML VIAL SQ SCH (22:24)
[2017-04-16] MEDS: CARVEDILOL 12.5 MG TABLET (FP) PO SCH (22:24)
[2017-04-16] MEDS: INSULIN DETEMIR 100 UNITS/ML MDV SQ SCH (22:24)
[2017-04-17] MEDS: FUROSEMIDE 40 MG TABLET (FP) PO SCH ×2 (05:32→18:14)
[2017-04-17] MEDS: INSULIN SLIDING SCALE (NOVOLOG) 1 VIAL SQ SCH ×2 (06:29→18:14)
--- NOTE | 2017-04-17 08:19 | PN ---
Progress Note (short form) - Note Progress Note: patient feels better today decreased pain Denies chest pain Denies shortness of breath today Afebrile all follow-ups noted Plavix held Vital Signs Temp 98.3 F 04/17/17 06:00 Pulse 78 04/17/17 06:00 Resp 18 04/17/17 06:00 BP 145/65 04/17/17 06:00 Pulse Ox 98 04/16/17 21:00 Intake & Output 04/16/17 04/16/17 04/17/17 11:59 23:59 11:59 Intake Total 550 300 Output Total 660 800 Balance -110 -500 Weight 193 lb 195 lb Intake: Oral 550 300 Output: Urine 660 800 Void 660 800 Other: Voiding Method Urinal Height 5 ft 3 in 5 ft 3 in Body Mass Index (BMI) 34.2 34.5 Weight Measurement Method Stated by Patient Weight Measurement Method Est/Stated by Patient Active Medications Acetaminophen (Tylenol -) 325 mg PO Q4H PRN PRN Reason: PAIN LEVEL 1-5 Aspirin (Asa -) 81 mg PO DAILY [facility] Carvedilol (Coreg -) 12.5 mg PO BID [facility] Last Admin: 04/16/17 22:24 Dose: 12.5 mg Furosemide (Lasix -) 40 mg PO BID@0600,1800 [facility] Last Admin: 04/17/17 05:32 Dose: 40 mg Heparin Sodium (Porcine) (Heparin -) 5,000 unit SQ BID [facility] Last Admin: 04/16/17 22:24 Dose: 5,000 unit Insulin Aspart (Novolog Vial Sliding Scale -) [facility] Reason: Protocol Last Admin: 04/17/17 06:29 Dose: Not Given Insulin Detemir (Levemir Vial) 8 units SQ HS [facility] Last Admin: 04/16/17 22:24 Dose: 8 units Nicotine (Nicoderm Patch -) 7 mg TD DAILY [facility] Tamsulosin HCl (Flomax -) 0.8 mg PO DAILY@0830 [facility] CBC, BMP 04/16/17 04:57 04/16/17 04:57 Physical Examination Constitutional: Yes: No Distress, Calm, Obese Eyes: Yes: Conjunctiva Clear Neck: Yes: Supple Cardiovascular: Yes: Regular Rate and Rhythm Respiratory: Yes: Diminished Gastrointestinal: Yes: Normal Bowel Sounds, Soft Extremities: Yes: Erythema (left lower extremity)--slightly decreased Edema: RUE: 2+, LLE: 2+ Neurological: Yes: Alert Imaging - Results Chest X-ray: Report Reviewed Ultrasound: Report Reviewed EKG: Report Reviewed Assessment/Plan clinically better Abx i/d consult-pending vascular consult-pending cardiology on case endoscopy planned in the near future Plavix held Will follow. Problem List - Problems (1) Cellulitis of left leg Code(s): L03.116 - CELLULITIS OF LEFT LOWER LIMB (2) ASHD (arteriosclerotic heart disease) Code(s): I25.10 - ATHSCL HEART DISEASE OF [place] CORONARY ARTERY W/O ANG PCTRS (3) Arterial insufficiency of lower extremity Code(s): I73.9 - PERIPHERAL VASCULAR DISEASE, UNSPECIFIED (4) Chronic renal insufficiency Code(s): N18.9 - CHRONIC KIDNEY DISEASE, UNSPECIFIED (5) Diabetes Code(s): E11.9 - TYPE 2 DIABETES MELLITUS WITHOUT COMPLICATIONS Qualifiers: Diabetes mellitus type: type 2 Diabetes mellitus complication detail: with nephropathy (6) Diastolic CHF Code(s): I50.30 - UNSPECIFIED DIASTOLIC (CONGESTIVE) HEART FAILURE (7) Edema Code(s): R60.9 - EDEMA, UNSPECIFIED Qualifiers: Edema type: unspecified Qualified Code(s): R60.9 - Edema, unspecified (8) Smoker unmotivated to quit Code(s): F17.200 - NICOTINE DEPENDENCE, UNSPECIFIED, UNCOMPLICATED (9) Anemia Code(s): D64.9 - ANEMIA, UNSPECIFIED
[2017-04-17 08:44] LABS: EOS % 7.5 % (0-4.5); HEMATOCRIT 22.9 % (35.4-49); HEMOGLOBIN 7.7 GM/dL (11.7-16.9); LYMPH % 16.4 % (8-40); MCH 31.4 pg (25.7-33.7); MCHC 33.6 g/dl (32.0-35.9); MEAN CELL VOLUME 93.5 fl (80-96); MEAN PLT VOLUME 7.8 fl (7.5-11.1); NEUT % 65.1 % (42.8-82.8); PLATELET COUNT 160 K/MM3 (134-434); RBC 2.45 M/mm3 (4.00-5.60); RDW 16.3 % (11.9-15.9); WHITE BLOOD COUNT 5.5 K/mm3 (4.0-10.0)
[2017-04-17] MEDS: TAMSULOSIN HCL 0.4 MG CAP.ER.24H (FP) PO SCH (08:59)
[2017-04-17 09:05] LABS: ALBUMIN 2.7 g/dl (3.4-5.0); ANION GAP 8 (8-16); BLOOD UREA NITROGEN 33 mg/dL (7-18); CALCIUM 8.3 mg/dL (8.5-10.1); CHLORIDE 107 mmol/L (98-107); CO2 27 mmol/L (21-32); GLUCOSE,RANDOM 79 mg/dL (74-106); POTASSIUM 4.3 mmol/L (3.5-5.1); SODIUM 142 mmol/L (136-145)
[2017-04-17 09:09] LABS: ALK PHOS 73 U/L (45-117); BILIRUBIN,TOTAL 0.5 mg/dL (0.2-1.0); CREATININE 1.5 mg/dL (0.7-1.3); SGOT/AST 8 U/L (15-37); SGPT/ALT 17 U/L (12-78); TOT PROT 5.8 g/dl (6.4-8.2)
[2017-04-17] MEDS ORDERED: CLOPIDOGREL BISULFATE 75 MG TABLET (FP) PO SCH (10:00)
[2017-04-17] MEDS: HEPARIN NA (PORCINE) 5,000 UNITS/ML 1ML VIAL SQ SCH ×2 (10:58→21:45)
[2017-04-17] MEDS: ASPIRIN 81 MG CHEWABLE TABLETS PO SCH (10:59)
[2017-04-17] MEDS: CARVEDILOL 12.5 MG TABLET (FP) PO SCH ×2 (10:59→21:42)
[2017-04-17] MEDS: NICOTINE 7 MG/24 HOURS TOPICAL PATCH TD SCH (11:00)
--- NOTE | 2017-04-17 11:27 | CONSULT ---
Consult - History of Present Illness History of Present Illness: 56 year old male DM, PAD, current smoker who is s/p right fem-pop. He is admitted with anemia and chest pain. He has chronic swelling of the left leg sice a distal bypass several years ago. He is non-compliant with leg elevation and stocking use. 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, Peripheral Neuropathy, Other (arterial insufficiency s/p left fem -tibial bypass- 2013, rt fem-pop bypass- 2016) Cardio/Vascular: Yes: CAD, CHF, HTN, Hyperlipdemia, Other (PAD) Pulmonary: Yes: COPD Renal/: Yes: Renal Inusuff Psych: Yes: Anxiety Endocrine: Yes: Diabetes Mellitus - Past Surgical History Past Surgical History: Yes: Bypass, Stent - Alcohol/Substance Use Hx Alcohol Use: No History of Substance Use: reports: None - Smoking History Smoking history: Current every day smoker Have you smoked in the past 12 months: Yes Aproximately how many cigarettes per day: 10 If you are a former smoker, when did you quit?: 09/2016 - Social History ADL: Independent 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 History of Recent Travel: No Home Medications - Allergies Allergies/Adverse Reactions: Allergies Allergy/AdvReac Type Severity Reaction Status Date / Time No Known Drug Allergies Allergy Verified 04/16/17 02:52 - Home Medications Home Medications: Ambulatory Orders Glipizide [Glipizide ER] 5 mg PO DAILY 10/15/13 Amlodipine Besylate [Norvasc -] 5 mg PO DAILY 09/17/16 Clopidogrel Bisulfate [Plavix -] 75 mg PO DAILY 10/17/16 Carvedilol [Coreg -] 12.5 mg PO BID #60 tablet 10/24/16 Acetaminophen [Tylenol .Regular Strength -] 325 mg PO Q4H PRN #0 tablet Aspirin [ASA -] 81 mg PO DAILY tab.chew 02/25/17 Tamsulosin HCl [Flomax -] 0.8 mg PO DAILY@0830 #30 tab 02/25/17 Furosemide [Lasix -] 40 mg PO BID #90 tablet 04/03/17 Nicotine Patch [Nicoderm Patch -] 7 mg TD DAILY #30 patch 04/03/17 Family Disease History - Family Disease History Family Disease History: Other: Father ( 62: lung ca), Mother ( 72: colon cancer), Sister (1, healthy) Other Family History: No children. Mother with h/o colon cancer in 70's Physical Exam Vital Signs: Vital Signs Temperature 98.3 F 04/17/17 06:00 Pulse Rate 78 04/17/17 06:00 Respiratory Rate 18 04/17/17 06:00 Blood Pressure 145/65 04/17/17 06:00 O2 Sat by Pulse Oximetry (%) 98 04/16/17 21:00 Constitutional: Yes: No Distress Edema: Yes Edema: LLE: 2+, RLE: 4+ (Stasis dermatitis around ankle) Wound/Incision: Yes: Other (Callus right 3rd toe tip.) Labs: CBC, BMP 04/17/17 07:30 04/17/17 07:30 Problem List - Problems (1) Stasis dermatitis of left lower extremity due to peripheral venous hypertension Assessment/Plan: Chronic edema and dermatitis. No evidence for cellulitis. Rec: leg elevation, topical steroid cream and MICHAEL wraps. Code(s): I87.322 - CHRONIC VENOUS HYPERTENSION W INFLAMMATION OF L LOW EXTREM
[2017-04-17] MEDS: FLUOCINONIDE 0.05% CREAM (15 GM TUBE) TP SCH (13:06)
--- NOTE | 2017-04-17 13:15 | PN ---
Progress Note, Physician Chief Complaint: ID Full note DICTATED - Current Medication List Current Medications: Active Medications Acetaminophen (Tylenol -) 325 mg PO Q4H PRN PRN Reason: PAIN LEVEL 1-5 Aspirin (Asa -) 81 mg PO DAILY [facility] Last Admin: 04/17/17 10:59 Dose: 81 mg Carvedilol (Coreg -) 12.5 mg PO BID [facility] Last Admin: 04/17/17 10:59 Dose: 12.5 mg Fluocinonide (Lidex 0.05% Cream -) 1 applic TP DAILY [facility] Last Admin: 04/17/17 13:06 Dose: 1 applic Furosemide (Lasix -) 40 mg PO BID@0600,1800 [facility] Last Admin: 04/17/17 05:32 Dose: 40 mg Heparin Sodium (Porcine) (Heparin -) 5,000 unit SQ BID [facility] Last Admin: 04/17/17 10:58 Dose: 5,000 unit Insulin Aspart (Novolog Vial Sliding Scale -) 1 vial SQ BIDAC [facility] PRN Reason: Protocol Last Admin: 04/17/17 06:29 Dose: Not Given Insulin Detemir (Levemir Vial) 8 units SQ HS [facility] Last Admin: 04/16/17 22:24 Dose: 8 units Nicotine (Nicoderm Patch -) 7 mg TD DAILY [facility] Last Admin: 04/17/17 11:00 Dose: 7 mg Tamsulosin HCl (Flomax -) 0.8 mg PO DAILY@0830 [facility] Last Admin: 04/17/17 08:59 Dose: 0.8 mg - Objective Vital Signs: Vital Signs Temperature 98.3 F 04/17/17 06:00 Pulse Rate 78 04/17/17 06:00 Respiratory Rate 18 04/17/17 06:00 Blood Pressure 145/65 04/17/17 06:00 O2 Sat by Pulse Oximetry (%) 98 04/16/17 21:00 Extremities: Yes: Other (lEFT SWOLLEN AND RED) Labs: CBC, BMP 04/17/17 07:30 04/17/17 07:30 INR, PTT INR 1.20 (0.82-1.09) H 04/16/17 04:57 Assessment/Plan Microbiology 04/16/17 04:57 Blood - Peripheral Venous Blood Culture - Preliminary NO GROWTH OBTAINED AFTER 24 HOURS, INCUBATION TO CONTINUE FOR 4 DAYS. 04/16/17 04:57 Blood - Peripheral Venous Blood Culture - Preliminary NO GROWTH OBTAINED AFTER 24 HOURS, INCUBATION TO CONTINUE FOR 4 DAYS. Laboratory Tests 04/17/17 04/17/17 07:30 07:30 WBC 5.5 RBC 2.45 L Hct 22.9 L Plt Count 160 BUN 33 H Creatinine 1.5 H Assessment Chronic venous stasis dermatitis of the LLE NO fever WBC elevation Plan Encourage to raise leg and use compresseion stockings and stop antibiotic Nevaeh KIRAN
--- NOTE | 2017-04-17 13:18 | PN ---
Progress Note, Physician History of Present Illness: seen and examined today in nad. states he is feeling better today, legs still swollen, and LLE still red. - Current Medication List Current Medications: Active Medications Acetaminophen (Tylenol -) 325 mg PO Q4H PRN PRN Reason: PAIN LEVEL 1-5 Aspirin (Asa -) 81 mg PO DAILY [facility] Last Admin: 04/17/17 10:59 Dose: 81 mg Carvedilol (Coreg -) 12.5 mg PO BID [facility] Last Admin: 04/17/17 10:59 Dose: 12.5 mg Fluocinonide (Lidex 0.05% Cream -) 1 applic TP DAILY [facility] Last Admin: 04/17/17 13:06 Dose: 1 applic Furosemide (Lasix -) 40 mg PO BID@0600,1800 [facility] Last Admin: 04/17/17 05:32 Dose: 40 mg Heparin Sodium (Porcine) (Heparin -) 5,000 unit SQ BID [facility] Last Admin: 04/17/17 10:58 Dose: 5,000 unit Insulin Aspart (Novolog Vial Sliding Scale -) 1 vial SQ BIDAC [facility] PRN Reason: Protocol Last Admin: 04/17/17 06:29 Dose: Not Given Insulin Detemir (Levemir Vial) 8 units SQ HS [facility] Last Admin: 04/16/17 22:24 Dose: 8 units Nicotine (Nicoderm Patch -) 7 mg TD DAILY [facility] Last Admin: 04/17/17 11:00 Dose: 7 mg Tamsulosin HCl (Flomax -) 0.8 mg PO DAILY@0830 [facility] Last Admin: 04/17/17 08:59 Dose: 0.8 mg - Objective Vital Signs: Vital Signs Temperature 98.3 F 04/17/17 06:00 Pulse Rate 78 04/17/17 06:00 Respiratory Rate 18 04/17/17 06:00 Blood Pressure 145/65 04/17/17 06:00 O2 Sat by Pulse Oximetry (%) 98 04/16/17 21:00 Constitutional: Yes: No Distress, Calm Eyes: Yes: Conjunctiva Clear, EOM Intact, PERRL HENT: Yes: Atraumatic, Normocephalic Neck: Yes: Supple, Trachea Midline Cardiovascular: Yes: Regular Rate and Rhythm, S1, S2. No: Bradycardia, Tachycardia, Pulse Irregular, Bruit, JVD, Gallop, Murmur, Rub, S3, S4, Varicosities Respiratory: Yes: Regular, Diminished. No: Rales, Rhonchi, SOB, Wheezes Gastrointestinal: Yes: Normal Bowel Sounds, Soft. No: Distention, Tenderness Extremities: Yes: Erythema Edema: RUE: 1+, LLE: 2+ Neurological: Yes: Alert, Oriented Psychiatric: Yes: Alert, Oriented Labs: CBC, BMP 04/17/17 07:30 04/17/17 07:30 INR, PTT INR 1.20 (0.82-1.09) H 04/16/17 04:57 - ....Imaging Chest X-ray: Report Reviewed, Image Reviewed EKG: Report Reviewed, Image Reviewed Other: Report Reviewed, Image Reviewed Assessment/Plan 56 year old man with a history of Acute on chronic diastolic CHF, Severe PAD s/ p RLE bypass in January 2017, CAD s/p PCI, Acute on chronic renal failure, IDDM , Prior CVA, Anemia recently admitted with acute on chronic diastolic CHF and cellulitis now readmitted with worsening lower extremity edema and LLE erythema concerning for recurrent cellulitis. Acute on chronic diastolic CHF Severe PAD s/p RLE bypass in January 2017 CAD s/p PCI Acute on chronic renal failure Chronic diastolic CHF IDDM Prior CVA Anemia REC: Increase in chronic lower ext edema due to venous insuff and acute on chronic diastolic CHF -cont lasix 40mg po bid for now -keep legs elevated -not felt to be acute cellulitis thus Abx are held -last echo showed normal LV systolic function no sig valvular abnl -doppler LE last admission showed no DVT -troponin is not significantly elevated, no current concern for ACS, due to CKD , infection, chronic CHF -cont Coreg, ASA -plavix held for plan for endoscopy, no cardiac contraindication for this procedure at this time
--- NOTE | 2017-04-17 13:45 | PN ---
Progress Note (short form) - Note Progress Note: Dr. Kelley for Dr. Jones: Patient seen by cardiology. Plavix held. Continue ASA 81mg once daily / PPI. Plan for EGD/Colon saturday 04/21 with plavix held for 5 days, likely with Dr. Lainez as i will be away starting 04/21. Problem List - Problems (1) Anemia Code(s): D64.9 - ANEMIA, UNSPECIFIED
[2017-04-17] MEDS: PANTOPRAZOLE 40 MG TABLET (FP) PO SCH (14:58)
--- NOTE | 2017-04-17 18:52 | CONS ---
INFECTIOUS DISEASE CONSULTATION DATE OF CONSULTATION: DATE OF DICTATION: 04/17/2017 HISTORY OF PRESENT ILLNESS: This is a 56-year-old, diabetic man status post right femoropopliteal bypass in the past, who I am asked to see after he was admitted with chief complaint of chest pain and anemia. He has a history of chronic swelling of the left leg since a distal bypass procedure several years ago according to Dr. Humphrey's consultation. Again, according to Dr. Humphrey, the patient has been noncompliant with leg elevation as well as his non-willingness to use stocking compression. He had no fever or chills here on admission and was essentially not really admitted for cellulitis. I am asked to see him, having receiving already vancomycin and Zosyn and having had blood cultures done on admission, which are no growth. He remains afebrile with no chills or other systemic complaints at this time. PAST MEDICAL HISTORY: Includes peripheral neuropathy, arterial insufficiency status post left femoral tibial bypass, status post right femoropopliteal bypass 2017, coronary artery disease, CHF, hypertension, hyperlipidemia, COPD, diabetes mellitus, chronic renal insufficiency. MEDICATIONS AT HOME: Include glipizide, amlodipine, Plavix, carvedilol, aspirin, tamsulosin, Lasix. ALLERGIES: None known. SOCIAL HISTORY: Recent smoker for many years. No history of substance abuse. Lives at home. No travel. FAMILY HISTORY: Reviewed and noncontributory. REVIEW OF SYSTEMS: Respiratory: No cough or shortness of breath. Cardiac: Currently, no chest pain, palpitations, or history of murmur. Gastrointestinal: No nausea, vomiting, weight loss, abdominal pain, or change in bowel habits. Genitourinary: No dysuria, hematuria, or urinary frequency. PHYSICAL EXAMINATION: General: Revealed a heavy-set male sitting in a chair, alert and in no acute distress. Vital Signs: Temperature was 98.3, pulse 78, blood pressure 145/65, respirations 18. Neck: Supple. Lungs: Clear. Heart: S1, S2. Regular rhythm. No audible murmur. Abdomen: Soft, nontender, without hepatosplenomegaly. Extremities: Revealed chronic lymphedema of both lower legs with an indurated, reddened erythema in a band distribution around the left lower extremity. The area was not tender and no open wounds were noted. DIAGNOSTIC DATA: White count of 7.3, hemoglobin 8, platelets of 176,000. BUN 33, creatinine 1.5. Two sets of blood cultures negative. X-ray of the chest dated April 16 shows no acute infiltrate. Some atelectasis has cleared from previous x-rays. ASSESSMENT: A 56-year-old diabetic man with vascular disease status post revascularization surgery in the past, has been seen by Dr. Humphrey with a mention that the lower extremity edema has been chronic. At this point in time, would suggest discontinuation of antibiotic therapy as he does not appear to have cellulitis. Findings consistent with chronic venous stasis dermatitis complicated by chronic edema, perhaps now worse. PLAN: Encouraged to elevate the leg and use compression stockings. Followup with Dr. Humphrey. MAI GALO M.D. [id number]
[2017-04-17] MEDS: INSULIN DETEMIR 100 UNITS/ML MDV SQ SCH (21:42)
--- NOTE | 2017-04-18 01:38 | EKG ---
Test Reason : Blood Pressure : / mmHG Vent. Rate : 094 BPM Atrial Rate : 094 BPM P-R Int : 162 ms QRS Dur : 128 ms QT Int : 396 ms P-R-T Axes : 057 -55 030 degrees QTc Int : 495 ms SINUS RHYTHM WITH FREQUENT PREMATURE VENTRICULAR COMPLEXES AND FUSION COMPLEXES POSSIBLE LEFT ATRIAL ENLARGEMENT RIGHT BUNDLE BRANCH BLOCK LEFT ANTERIOR FASCICULAR BLOCK BIFASCICULAR BLOCK ABNORMAL ECG WHEN COMPARED WITH ECG OF 31-MAR-2017 06:24, FUSION COMPLEXES ARE NOW PRESENT PREMATURE VENTRICULAR COMPLEXES ARE NOW PRESENT BASELINE ARTIFACT Confirmed by BALBINA AMBRIZ MD ([id number]) on 04/18/2017 1:38:15 AM Referred By: Confirmed By:BALBINA AMBRIZ MD
[2017-04-18] MEDS: FUROSEMIDE 40 MG TABLET (FP) PO SCH ×2 (05:44→17:39)
[2017-04-18] MEDS: INSULIN SLIDING SCALE (NOVOLOG) 1 VIAL SQ SCH ×2 (06:03→17:42)
[2017-04-18 06:06] LABS: SERUM IRON SATURATION 20 % (15-55); TOTAL IRON BINDING CAPACITY 214 ug/dL (250-450); UIBC 171 ug/dL (111-343)
--- NOTE | 2017-04-18 08:28 | PN ---
Progress Note (short form) - Note Progress Note: patient seen and examined. Chief complaint pain in the legs Overall okay Schedule for endoscopy on Monday denies chest pain Denies shortness of breath Vital Signs Temp 97.4 F L 04/18/17 06:15 Pulse 77 04/18/17 06:15 Resp 18 04/18/17 06:15 BP 112/50 04/18/17 06:15 Pulse Ox 98 04/17/17 21:00 Intake & Output 04/17/17 04/17/17 04/18/17 11:59 23:59 11:59 Intake Total 550 300 Output Total 1600 700 Balance -1050 -400 Intake: Oral 550 300 Output: Urine 1600 700 Void 1600 700 Other: Voiding Method Urinal Urinal Bowel Movement No No CBC, BMP 04/17/17 07:30 04/17/17 07:30 Active Medications Acetaminophen (Tylenol -) 325 mg PO Q4H PRN PRN Reason: PAIN LEVEL 1-5 Aspirin (Asa -) 81 mg PO DAILY [facility] Last Admin: 04/17/17 10:59 Dose: 81 mg Carvedilol (Coreg -) 12.5 mg PO BID [facility] Last Admin: 04/17/17 21:42 Dose: 12.5 mg Fluocinonide (Lidex 0.05% Cream -) 1 applic TP DAILY [facility] Last Admin: 04/17/17 13:06 Dose: 1 applic Furosemide (Lasix -) 40 mg PO BID@0600,1800 [facility] Last Admin: 04/18/17 05:44 Dose: 40 mg Heparin Sodium (Porcine) (Heparin -) 5,000 unit SQ BID [facility] Last Admin: 04/17/17 21:45 Dose: 5,000 unit Insulin Aspart (Novolog Vial Sliding Scale -) 1 vial SQ BIDAC [facility] PRN Reason: Protocol Last Admin: 04/18/17 06:03 Dose: Not Given Insulin Detemir (Levemir Vial) 8 units SQ HS [facility] Last Admin: 04/17/17 21:42 Dose: 8 units Nicotine (Nicoderm Patch -) 7 mg TD DAILY [facility] Last Admin: 04/17/17 11:00 Dose: 7 mg Pantoprazole Sodium (Protonix -) 40 mg PO DAILY [facility] Last Admin: 04/17/17 14:58 Dose: 40 mg Tamsulosin HCl (Flomax -) 0.8 mg PO DAILY@0830 [facility] Last Admin: 04/17/17 08:59 Dose: 0.8 mg Physical Examination Constitutional: Yes: No Distress, Calm, Obese Eyes: Yes: Conjunctiva Clear Neck: Yes: Supple Cardiovascular: Yes: Regular Rate and Rhythm Respiratory: Yes: Diminished Gastrointestinal: Yes: Normal Bowel Sounds, Soft Extremities: Yes: Erythema (left lower extremity)--slightly decreased Edema: RUE: 2+, LLE: 2+ Neurological: Yes: Alert Imaging - Results Chest X-ray: Report Reviewed Ultrasound: Report Reviewed EKG: Report Reviewed Assessment/Plan clinically stable Abx--- discontinued by ID--not cellulitis but ID vascular consult--noted cardiology on case endoscopy planned Plavix held continue present care Will follow. Problem List - Problems (1) Cellulitis of left leg Code(s): L03.116 - CELLULITIS OF LEFT LOWER LIMB (2) ASHD (arteriosclerotic heart disease) Code(s): I25.10 - ATHSCL HEART DISEASE OF [place] CORONARY ARTERY W/O ANG PCTRS (3) Arterial insufficiency of lower extremity Code(s): I73.9 - PERIPHERAL VASCULAR DISEASE, UNSPECIFIED (4) Chronic renal insufficiency Code(s): N18.9 - CHRONIC KIDNEY DISEASE, UNSPECIFIED (5) Diabetes Code(s): E11.9 - TYPE 2 DIABETES MELLITUS WITHOUT COMPLICATIONS Qualifiers: Diabetes mellitus type: type 2 Diabetes mellitus complication detail: with nephropathy (6) Diastolic CHF Code(s): I50.30 - UNSPECIFIED DIASTOLIC (CONGESTIVE) HEART FAILURE (7) Edema Code(s): R60.9 - EDEMA, UNSPECIFIED Qualifiers: Edema type: unspecified Qualified Code(s): R60.9 - Edema, unspecified (8) Smoker unmotivated to quit Code(s): F17.200 - NICOTINE DEPENDENCE, UNSPECIFIED, UNCOMPLICATED (9) Anemia Code(s): D64.9 - ANEMIA, UNSPECIFIED
[2017-04-18] MEDS: TAMSULOSIN HCL 0.4 MG CAP.ER.24H (FP) PO SCH (08:37)
[2017-04-18] MEDS ORDERED: PT OWN MED DRAWER 7, Y5N ONE ×2 (09:53→23:08)
[2017-04-18] MEDS: PANTOPRAZOLE 40 MG TABLET (FP) PO SCH (09:56)
[2017-04-18] MEDS: ASPIRIN 81 MG CHEWABLE TABLETS PO SCH (09:56)
[2017-04-18] MEDS: CARVEDILOL 12.5 MG TABLET (FP) PO SCH ×2 (09:56→22:28)
[2017-04-18] MEDS: HEPARIN NA (PORCINE) 5,000 UNITS/ML 1ML VIAL SQ SCH ×2 (09:56→22:28)
[2017-04-18] MEDS: NICOTINE 7 MG/24 HOURS TOPICAL PATCH TD SCH (09:57)
[2017-04-18] MEDS: FLUOCINONIDE 0.05% CREAM (15 GM TUBE) TP SCH (09:58)
--- NOTE | 2017-04-18 10:21 | PN ---
Progress Note, Physician Chief Complaint: no acute distress - Current Medication List Current Medications: Active Medications Acetaminophen (Tylenol -) 325 mg PO Q4H PRN PRN Reason: PAIN LEVEL 1-5 Aspirin (Asa -) 81 mg PO DAILY [facility] Last Admin: 04/18/17 09:56 Dose: 81 mg Carvedilol (Coreg -) 12.5 mg PO BID [facility] Last Admin: 04/18/17 09:56 Dose: 12.5 mg Fluocinonide (Lidex 0.05% Cream -) 1 applic TP DAILY [facility] Last Admin: 04/18/17 09:58 Dose: 1 applic Furosemide (Lasix -) 40 mg PO BID@0600,1800 [facility] Last Admin: 04/18/17 05:44 Dose: 40 mg Heparin Sodium (Porcine) (Heparin -) 5,000 unit SQ BID [facility] Last Admin: 04/18/17 09:56 Dose: 5,000 unit Insulin Aspart (Novolog Vial Sliding Scale -) 1 vial SQ BIDAC [facility] PRN Reason: Protocol Last Admin: 04/18/17 06:03 Dose: Not Given Insulin Detemir (Levemir Vial) 8 units SQ HS [facility] Last Admin: 04/17/17 21:42 Dose: 8 units Nicotine (Nicoderm Patch -) 7 mg TD DAILY [facility] Last Admin: 04/18/17 09:57 Dose: 7 mg Pantoprazole Sodium (Protonix -) 40 mg PO DAILY [facility] Last Admin: 04/18/17 09:56 Dose: 40 mg Tamsulosin HCl (Flomax -) 0.8 mg PO DAILY@0830 [facility] Last Admin: 04/18/17 08:37 Dose: 0.8 mg - Objective Vital Signs: Vital Signs Temperature 97.4 F L 04/18/17 06:15 Pulse Rate 77 04/18/17 06:15 Respiratory Rate 18 04/18/17 06:15 Blood Pressure 112/50 04/18/17 06:15 O2 Sat by Pulse Oximetry (%) 98 04/17/17 21:00 Constitutional: Yes: No Distress Cardiovascular: Yes: Regular Rate and Rhythm Respiratory: Yes: CTA Bilaterally Gastrointestinal: Yes: Soft, Abdomen, Obese Edema: Yes Edema: LLE: 1+, RLE: 1+ Labs: CBC, BMP 04/17/17 07:30 04/17/17 07:30 INR, PTT INR 1.20 (0.82-1.09) H 04/16/17 04:57 Microbiology 04/16/17 04:57 Blood - Peripheral Venous Blood Culture - Preliminary NO GROWTH OBTAINED AFTER 48 HOURS, INCUBATION TO CONTINUE FOR 3 DAYS. 04/16/17 04:57 Blood - Peripheral Venous Blood Culture - Preliminary NO GROWTH OBTAINED AFTER 48 HOURS, INCUBATION TO CONTINUE FOR 3 DAYS. Laboratory Tests 04/16/17 04/17/17 04/17/17 05:53 07:30 07:30 WBC 5.5 Hgb 7.7 L Plt Count 160 Sodium 142 Potassium 4.3 BUN 33 H Creatinine 1.5 H Stool Occult Blood Negative Assessment/Plan Assessment/Plan 56 year old man with a history of Acute on chronic diastolic CHF, Severe PAD s/ p RLE bypass in January 2017, CAD s/p PCI, Acute on chronic renal failure, IDDM , Prior CVA, Anemia recently admitted with acute on chronic diastolic CHF and cellulitis now readmitted with worsening lower extremity edema and LLE erythema concerning for recurrent cellulitis. Acute on chronic diastolic CHF Severe PAD s/p RLE bypass in January 2017 CAD s/p PCI Acute on chronic renal failure Chronic diastolic CHF IDDM Prior CVA Anemia REC: Increase in chronic lower ext edema due to venous insuff and acute on chronic diastolic CHF -cont lasix 40mg po bid for now -keep legs elevated -not felt to be acute cellulitis thus Abx are held -last echo showed normal LV systolic function no sig valvular abnl -No DVT on Doppler -troponin is not significantly elevated, no current concern for ACS, due to CKD , infection, chronic CHF -cont Coreg, ASA -plavix held for plan for endoscopy, no cardiac contraindication for this procedure at this time
[2017-04-18] MEDS: INSULIN DETEMIR 100 UNITS/ML MDV SQ SCH (22:29)
[2017-04-19] MEDS: FUROSEMIDE 40 MG TABLET (FP) PO SCH (06:01)
[2017-04-19] MEDS: INSULIN SLIDING SCALE (NOVOLOG) 1 VIAL SQ SCH ×2 (06:02→17:23)
[2017-04-19] MEDS ORDERED: INSULIN (NOVOLOG) ASPART 100 UNITS/ML 10ML VIAL ONE (07:15)
[2017-04-19] MEDS ORDERED: INSULIN DETEMIR 100 UNITS/ML MDV SQ ONE (07:16)
[2017-04-19 08:12] LABS: BASO % 0.9 % (0-2.0); EOS % 6.8 % (0-4.5); HEMATOCRIT 21.9 % (35.4-49); HEMOGLOBIN 7.3 GM/dL (11.7-16.9); LYMPH % 19.8 % (8-40); MCH 31.2 pg (25.7-33.7); MCHC 33.5 g/dl (32.0-35.9); MEAN PLT VOLUME 8.8 fl (7.5-11.1); MONO % 10.3 % (3.8-10.2); NEUT % 62.2 % (42.8-82.8); PLATELET COUNT 152 K/MM3 (134-434); RBC 2.35 M/mm3 (4.00-5.60); RDW 16.2 % (11.9-15.9); WHITE BLOOD COUNT 4.6 K/mm3 (4.0-10.0)
--- NOTE | 2017-04-19 08:25 | PN ---
Progress Note (short form) - Note Progress Note: patient seen and examined. Overall comfortable Denies chest pain Chief complaint--- swelling in the legs Afebrile Vital Signs Temp 98.1 F 04/19/17 06:34 Pulse 76 04/19/17 06:34 Resp 20 04/19/17 06:34 BP 122/54 04/19/17 06:34 Pulse Ox 98 04/18/17 21:00 Intake & Output 04/18/17 04/18/17 04/19/17 11:59 23:59 11:59 Intake Total 200 Output Total 450 Balance -250 Intake: Oral 200 Output: Urine 450 Void 450 Other: Voiding Method Urinal Toilet Active Medications Acetaminophen (Tylenol -) 325 mg PO Q4H PRN PRN Reason: PAIN LEVEL 1-5 Aspirin (Asa -) 81 mg PO DAILY [facility] Last Admin: 04/18/17 09:56 Dose: 81 mg Carvedilol (Coreg -) 12.5 mg PO BID [facility] Last Admin: 04/18/17 22:28 Dose: 12.5 mg Fluocinonide (Lidex 0.05% Cream -) 1 applic TP DAILY [facility] Last Admin: 04/18/17 09:58 Dose: 1 applic Furosemide (Lasix -) 40 mg PO BID@0600,1800 [facility] Last Admin: 04/19/17 06:01 Dose: 40 mg Heparin Sodium (Porcine) (Heparin -) 5,000 unit SQ BID [facility] Last Admin: 04/18/17 22:28 Dose: 5,000 unit Insulin Aspart (Novolog Vial Sliding Scale -) 1 vial SQ BIDAC [facility] PRN Reason: Protocol Last Admin: 04/19/17 06:02 Dose: Not Given Insulin Detemir (Levemir Vial) 8 units SQ HS [facility] Last Admin: 04/18/17 22:29 Dose: 8 units Nicotine (Nicoderm Patch -) 7 mg TD DAILY [facility] Last Admin: 04/18/17 09:57 Dose: 7 mg Pantoprazole Sodium (Protonix -) 40 mg PO DAILY [facility] Last Admin: 04/18/17 09:56 Dose: 40 mg Tamsulosin HCl (Flomax -) 0.8 mg PO DAILY@0830 [facility] Last Admin: 04/18/17 08:37 Dose: 0.8 mg CBC, BMP 04/19/17 06:30 Physical Examination Constitutional: Yes: No Distress, Calm, Obese Eyes: Yes: Conjunctiva Clear Neck: Yes: Supple Cardiovascular: Yes: Regular Rate and Rhythm Respiratory: Yes: Diminished Gastrointestinal: Yes: Normal Bowel Sounds, Soft Extremities: Yes: Erythema (left lower extremity)--slightly decreased Edema: RUE: 2+, LLE: 2+ Neurological: Yes: Alert Imaging - Results Chest X-ray: Report Reviewed Ultrasound: Report Reviewed EKG: Report Reviewed Assessment/Plan clinically stable Abx--- discontinued by ID--not cellulitis but ID vascular consult--noted cardiology on case endoscopy planned Plavix held continue present care discussed with cardiology will switch Lasix to IV--due to leg edema Monitor lites. Will follow. Problem List - Problems (1) Cellulitis of left leg Code(s): L03.116 - CELLULITIS OF LEFT LOWER LIMB (2) ASHD (arteriosclerotic heart disease) Code(s): I25.10 - ATHSCL HEART DISEASE OF [place] CORONARY ARTERY W/O ANG PCTRS (3) Arterial insufficiency of lower extremity Code(s): I73.9 - PERIPHERAL VASCULAR DISEASE, UNSPECIFIED (4) Chronic renal insufficiency Code(s): N18.9 - CHRONIC KIDNEY DISEASE, UNSPECIFIED (5) Diabetes Code(s): E11.9 - TYPE 2 DIABETES MELLITUS WITHOUT COMPLICATIONS Qualifiers: Diabetes mellitus type: type 2 Diabetes mellitus complication detail: with nephropathy (6) Diastolic CHF Code(s): I50.30 - UNSPECIFIED DIASTOLIC (CONGESTIVE) HEART FAILURE (7) Edema Code(s): R60.9 - EDEMA, UNSPECIFIED Qualifiers: Edema type: unspecified Qualified Code(s): R60.9 - Edema, unspecified (8) Smoker unmotivated to quit Code(s): F17.200 - NICOTINE DEPENDENCE, UNSPECIFIED, UNCOMPLICATED (9) Anemia Code(s): D64.9 - ANEMIA, UNSPECIFIED
[2017-04-19 08:33] LABS: CHLORIDE 105 mmol/L (98-107); POTASSIUM 4.4 mmol/L (3.5-5.1); SODIUM 140 mmol/L (136-145)
[2017-04-19] MEDS: TAMSULOSIN HCL 0.4 MG CAP.ER.24H (FP) PO SCH (08:34)
[2017-04-19 08:44] LABS: ALBUMIN 2.6 g/dl (3.4-5.0); ALK PHOS 75 U/L (45-117); ANION GAP 8 (8-16); BILIRUBIN,TOTAL 0.2 mg/dL (0.2-1.0); BLOOD UREA NITROGEN 42 mg/dL (7-18); CALCIUM 8.1 mg/dL (8.5-10.1); CO2 27 mmol/L (21-32); CREATININE 1.7 mg/dL (0.7-1.3); GLUCOSE,RANDOM 104 mg/dL (74-106); SGOT/AST 8 U/L (15-37); SGPT/ALT 12 U/L (12-78); TOT PROT 5.4 g/dl (6.4-8.2)
--- NOTE | 2017-04-19 09:20 | PN ---
Progress Note, Physician Chief Complaint: denies cp or SOB - Current Medication List Current Medications: Active Medications Acetaminophen (Tylenol -) 325 mg PO Q4H PRN PRN Reason: PAIN LEVEL 1-5 Aspirin (Asa -) 81 mg PO DAILY [facility] Last Admin: 04/18/17 09:56 Dose: 81 mg Carvedilol (Coreg -) 12.5 mg PO BID [facility] Last Admin: 04/18/17 22:28 Dose: 12.5 mg Fluocinonide (Lidex 0.05% Cream -) 1 applic TP DAILY [facility] Last Admin: 04/18/17 09:58 Dose: 1 applic Furosemide (Lasix -) 40 mg PO BID@0600,1800 [facility] Last Admin: 04/19/17 06:01 Dose: 40 mg Heparin Sodium (Porcine) (Heparin -) 5,000 unit SQ BID [facility] Last Admin: 04/18/17 22:28 Dose: 5,000 unit Insulin Aspart (Novolog Vial Sliding Scale -) 1 vial SQ BIDAC [facility] PRN Reason: Protocol Last Admin: 04/19/17 06:02 Dose: Not Given Insulin Detemir (Levemir Vial) 8 units SQ HS [facility] Last Admin: 04/18/17 22:29 Dose: 8 units Nicotine (Nicoderm Patch -) 7 mg TD DAILY [facility] Last Admin: 04/18/17 09:57 Dose: 7 mg Pantoprazole Sodium (Protonix -) 40 mg PO DAILY [facility] Last Admin: 04/18/17 09:56 Dose: 40 mg Tamsulosin HCl (Flomax -) 0.8 mg PO DAILY@0830 [facility] Last Admin: 04/19/17 08:34 Dose: 0.8 mg - Objective Vital Signs: Vital Signs Temperature 98.1 F 04/19/17 06:34 Pulse Rate 76 04/19/17 06:34 Respiratory Rate 20 04/19/17 06:34 Blood Pressure 122/54 04/19/17 06:34 O2 Sat by Pulse Oximetry (%) 98 04/18/17 21:00 Constitutional: Yes: No Distress Cardiovascular: Yes: Regular Rate and Rhythm Respiratory: Yes: Other (mild rales at bases) Gastrointestinal: Yes: Soft Edema: Yes Edema: LLE: 2+, RLE: 2+ Neurological: Yes: Alert Labs: CBC, BMP 04/19/17 06:30 12/20/17 06:30 INR, PTT INR 1.20 (0.82-1.09) H 04/16/17 04:57 Laboratory Tests 04/19/17 04/19/17 06:30 06:30 WBC 4.6 Hgb 7.3 L Plt Count 152 Sodium 140 Potassium 4.4 BUN 42 H D Creatinine 1.7 H Assessment/Plan Assessment/Plan 56 year old man with a history of Acute on chronic diastolic CHF, Severe PAD s/ p RLE bypass in January 2017, CAD s/p PCI, Acute on chronic renal failure, IDDM , Prior CVA, Anemia recently admitted with acute on chronic diastolic CHF and cellulitis now readmitted with worsening lower extremity edema and LLE erythema concerning for recurrent cellulitis. Acute on chronic diastolic CHF Severe PAD s/p RLE bypass in January 2017 CAD s/p PCI Acute on chronic renal failure Chronic diastolic CHF IDDM Prior CVA Anemia REC: Increase in chronic lower ext edema due to venous insuff and acute on chronic diastolic CHF -still with edema and mild rales at bases; will switch to Lasix 40mg IV daily. -keep legs elevated -not felt to be acute cellulitis thus Abx are held -last echo showed normal LV systolic function no sig valvular abnl -No DVT on Doppler -plavix held for plan for endoscopy, no cardiac contraindication for this procedure at this time: Planned for Monday to allow for several days of optimization of volume status with IV Lasix, follow renal function closely
[2017-04-19] MEDS ORDERED: FUROSEMIDE 40 MG/4 ML INJECTABLE VIAL IVPUSH SCH (10:00)
[2017-04-19] MEDS ORDERED: PT OWN MED DRAWER 7, Y5N ONE (10:10)
[2017-04-19] MEDS: ASPIRIN 81 MG CHEWABLE TABLETS PO SCH (10:14)
[2017-04-19] MEDS: CARVEDILOL 12.5 MG TABLET (FP) PO SCH ×2 (10:14→21:17)
[2017-04-19] MEDS: PANTOPRAZOLE 40 MG TABLET (FP) PO SCH (10:14)
[2017-04-19] MEDS: HEPARIN NA (PORCINE) 5,000 UNITS/ML 1ML VIAL SQ SCH ×2 (10:14→21:17)
[2017-04-19] MEDS: NICOTINE 7 MG/24 HOURS TOPICAL PATCH TD SCH (10:14)
[2017-04-19] MEDS: FLUOCINONIDE 0.05% CREAM (15 GM TUBE) TP SCH (10:15)
--- NOTE | 2017-04-19 15:08 | CONSULT ---
Consult Consult Specialty:: Hematology/Oncology - History of Present Illness History of Present Illness: 56 year old man with a history of Acute on chronic diastolic CHF, Severe PAD s/ p RLE bypass in January 2017, CAD s/p PCI, Acute on chronic renal failure, IDDM , Prior CVA, Anemia recently admitted with acute on chronic diastolic CHF and cellulitis now readmitted with worsening lower extremity edema and LLE erythema concerning for recurrent cellulitis. hematology consulted for anemia Pt seen and examined. 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, Peripheral Neuropathy, Other (arterial insufficiency s/p left fem -tibial bypass- 2013, rt fem-pop bypass- 2016) Cardio/Vascular: Yes: CAD, CHF, HTN, Hyperlipdemia, Other (PAD) Pulmonary: Yes: COPD Renal/: Yes: Renal Inusuff Psych: Yes: Anxiety Endocrine: Yes: Diabetes Mellitus - Past Surgical History Past Surgical History: Yes: Bypass, Stent - Alcohol/Substance Use Hx Alcohol Use: No History of Substance Use: reports: None - Smoking History Smoking history: Current every day smoker Have you smoked in the past 12 months: Yes Aproximately how many cigarettes per day: 10 If you are a former smoker, when did you quit?: 09/2016 - Social History ADL: Independent 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 History of Recent Travel: No Home Medications - Allergies Allergies/Adverse Reactions: Allergies Allergy/AdvReac Type Severity Reaction Status Date / Time No Known Drug Allergies Allergy Verified 04/16/17 02:52 - Home Medications Home Medications: Ambulatory Orders Glipizide [Glipizide ER] 5 mg PO DAILY 10/15/13 Amlodipine Besylate [Norvasc -] 5 mg PO DAILY 09/17/16 Clopidogrel Bisulfate [Plavix -] 75 mg PO DAILY 10/17/16 Carvedilol [Coreg -] 12.5 mg PO BID #60 tablet 10/24/16 Acetaminophen [Tylenol .Regular Strength -] 325 mg PO Q4H PRN #0 tablet Aspirin [ASA -] 81 mg PO DAILY tab.chew 02/25/17 Tamsulosin HCl [Flomax -] 0.8 mg PO DAILY@0830 #30 tab 02/25/17 Furosemide [Lasix -] 40 mg PO BID #90 tablet 04/03/17 Nicotine Patch [Nicoderm Patch -] 7 mg TD DAILY #30 patch 04/03/17 Family Disease History - Family Disease History Family Disease History: Other: Father ( 62: lung ca), Mother ( 72: colon cancer), Sister (1, healthy) Other Family History: No children. Mother with h/o colon cancer in 70's Review of Systems - Review of Systems Constitutional: denies: Chills, Diaphoresis, Fever HENT: denies: Difficult Swallowing Cardiovascular: denies: Chest Pain Genitourinary: denies: Burning Physical Exam Vital Signs: Vital Signs Temperature 97.9 F 04/19/17 14:57 Pulse Rate 84 04/19/17 14:57 Respiratory Rate 16 04/19/17 14:57 Blood Pressure 120/70 04/19/17 14:57 O2 Sat by Pulse Oximetry (%) 98 04/18/17 21:00 Constitutional: Yes: No Distress, Calm HENT: Yes: Atraumatic, Normocephalic Neck: Yes: Supple Cardiovascular: Yes: Regular Rate and Rhythm Respiratory: Yes: Regular Gastrointestinal: Yes: Soft Extremities: Yes: Erythema, Other Wound/Incision: Yes: Other Neurological: Yes: Alert, Oriented Labs: CBC, BMP 04/19/17 06:30 04/19/17 06:30 Assessment/Plan Normocytic anemia chronic CVA CAD cellulitis CKD Reviewed the iron studies from January and this admission, consistent with ACD/ ACI from his co-morbidities including CKD while the other tests for Anemia are ordered including ANUSHKA and also an MDS panel would be done, but with new acute trend down , GI w/u underway. His Hct is slowly down trending, will d/w Card for prbc if needed as concern for fluid overload. No platelets prior to GI procedures, d/w GI will follow.
[2017-04-19] MEDS: INSULIN DETEMIR 100 UNITS/ML MDV SQ SCH (22:03)
[2017-04-20] MEDS: INSULIN SLIDING SCALE (NOVOLOG) 1 VIAL SQ SCH ×2 (06:33→17:15)
[2017-04-20] MEDS ORDERED: INSULIN (NOVOLOG) ASPART 100 UNITS/ML 10ML VIAL ONE (06:43)
[2017-04-20 08:43] LABS: BASO % 0.9 % (0-2.0); EOS % 6.8 % (0-4.5); HEMATOCRIT 22.6 % (35.4-49); HEMOGLOBIN 7.5 GM/dL (11.7-16.9); LYMPH % 16.6 % (8-40); MCH 31.1 pg (25.7-33.7); MCHC 33.3 g/dl (32.0-35.9); MEAN CELL VOLUME 93.4 fl (80-96); MEAN PLT VOLUME 8.3 fl (7.5-11.1); MONO % 11.4 % (3.8-10.2); NEUT % 64.3 % (42.8-82.8); PLATELET COUNT 152 K/MM3 (134-434); RBC 2.42 M/mm3 (4.00-5.60); RDW 16.2 % (11.9-15.9)
--- NOTE | 2017-04-20 08:48 | PN ---
Progress Note (short form) - Note Progress Note: VSS Leg swelling improved with elevation and MICHAEL. Not smoking (for now). Await result of GI work-up. Needs Plavix restarted JUAN JOSE Problem List - Problems (1) Stasis dermatitis of left lower extremity due to peripheral venous hypertension Code(s): I87.322 - CHRONIC VENOUS HYPERTENSION W INFLAMMATION OF L LOW EXTREM
--- NOTE | 2017-04-20 08:52 | PN ---
Progress Note, Physician Chief Complaint: feels less SOB Edema improved - Current Medication List Current Medications: Active Medications Acetaminophen (Tylenol -) 325 mg PO Q4H PRN PRN Reason: PAIN LEVEL 1-5 Aspirin (Asa -) 81 mg PO DAILY [facility] Last Admin: 04/19/17 10:14 Dose: 81 mg Bisacodyl (Dulcolax -) 20 mg PO ONCE ONE Stop: 04/20/17 14:01 Carvedilol (Coreg -) 12.5 mg PO BID [facility] Last Admin: 04/19/17 21:17 Dose: 12.5 mg Fluocinonide (Lidex 0.05% Cream -) 1 applic TP DAILY [facility] Last Admin: 04/19/17 10:15 Dose: 1 applic Furosemide (Lasix Injection -) 40 mg IVPUSH DAILY [facility] Last Admin: 04/19/17 10:14 Dose: 40 mg Heparin Sodium (Porcine) (Heparin -) 5,000 unit SQ BID [facility] Last Admin: 04/19/17 21:17 Dose: 5,000 unit Insulin Aspart (Novolog Vial Sliding Scale -) 1 vial SQ BIDAC [facility] PRN Reason: Protocol Last Admin: 04/20/17 06:33 Dose: Not Given Insulin Detemir (Levemir Vial) 8 units SQ HS [facility] Last Admin: 04/19/17 22:03 Dose: 8 units Nicotine (Nicoderm Patch -) 7 mg TD DAILY [facility] Last Admin: 04/19/17 10:14 Dose: 7 mg Pantoprazole Sodium (Protonix -) 40 mg PO DAILY [facility] Last Admin: 04/19/17 10:14 Dose: 40 mg Tamsulosin HCl (Flomax -) 0.8 mg PO DAILY@0830 [facility] Last Admin: 04/19/17 08:34 Dose: 0.8 mg - Objective Vital Signs: Vital Signs Temperature 97.6 F 04/20/17 06:32 Pulse Rate 75 04/20/17 06:32 Respiratory Rate 20 04/20/17 06:32 Blood Pressure 113/53 04/20/17 06:32 O2 Sat by Pulse Oximetry (%) 98 04/19/17 21:00 Constitutional: Yes: No Distress Cardiovascular: Yes: Regular Rate and Rhythm Respiratory: Yes: CTA Bilaterally Gastrointestinal: Yes: Soft Edema: No Neurological: Yes: Alert, Oriented Labs: CBC, BMP 04/20/17 08:10 INR, PTT INR 1.20 (0.82-1.09) H 04/16/17 04:57 Laboratory Tests 04/20/17 04/20/17 08:10 08:10 WBC 5.0 Hgb 7.5 L Plt Count 152 Sodium Pending Creatinine Pending Assessment/Plan Assessment/Plan 56 year old man with a history of Acute on chronic diastolic CHF, Severe PAD s/ p RLE bypass in January 2017, CAD s/p PCI, Acute on chronic renal failure, IDDM , Prior CVA, Anemia recently admitted with acute on chronic diastolic CHF and cellulitis now readmitted with worsening lower extremity edema and LLE erythema concerning for recurrent cellulitis. Acute on chronic diastolic CHF Severe PAD s/p RLE bypass in January 2017 CAD s/p PCI Acute on chronic renal failure Chronic diastolic CHF IDDM Prior CVA Anemia REC: Volume status improved, creatinine pending. Will hold Lasix today, await creatinine. -keep legs elevated -not felt to be acute cellulitis thus Abx are held -last echo showed normal LV systolic function no sig valvular abnl -No DVT on Doppler -plavix held for plan for endoscopy, no cardiac contraindication for this procedure at this time
[2017-04-20 09:11] LABS: ALBUMIN 2.6 g/dl (3.4-5.0); ANION GAP 7 (8-16); BILIRUBIN,TOTAL 0.2 mg/dL (0.2-1.0); BLOOD UREA NITROGEN 44 mg/dL (7-18); CALCIUM 8.1 mg/dL (8.5-10.1); CHLORIDE 103 mmol/L (98-107); CO2 29 mmol/L (21-32); CREATININE 1.8 mg/dL (0.7-1.3); GLUCOSE,RANDOM 107 mg/dL (74-106); POTASSIUM 4.7 mmol/L (3.5-5.1); SGOT/AST 10 U/L (15-37); SGPT/ALT 16 U/L (12-78); SODIUM 139 mmol/L (136-145); TOT PROT 5.7 g/dl (6.4-8.2)
[2017-04-20] MEDS ORDERED: PT OWN MED DRAWER 7, Y5N ONE ×2 (09:12→11:07)
[2017-04-20 09:19] LABS: ALK PHOS 75 U/L (45-117)
[2017-04-20 09:37] LABS: LDH 187 U/L (87-241)
--- NOTE | 2017-04-20 10:00 | PN ---
Progress Note (short form) - Note Progress Note: Pt seen/ examined. feels better decreased leg edema denies cp/sob. Vital Signs Temp 97.6 F 04/20/17 06:32 Pulse 75 04/20/17 06:32 Resp 20 04/20/17 06:32 BP 113/53 04/20/17 06:32 Pulse Ox 98 04/19/17 21:00 Intake & Output 04/19/17 04/19/17 04/20/17 11:59 23:59 11:59 Intake Total 250 Output Total 300 Balance -50 Intake: Oral 250 Output: Urine 300 Void 300 Other: Voiding Method Toilet Toilet Bowel Movement Yes # Bowel Movements 1 Active Medications Acetaminophen (Tylenol -) 325 mg PO Q4H PRN PRN Reason: PAIN LEVEL 1-5 Aspirin (Asa -) 81 mg PO DAILY [facility] Last Admin: 04/19/17 10:14 Dose: 81 mg Bisacodyl (Dulcolax -) 20 mg PO ONCE ONE Stop: 04/20/17 14:01 Carvedilol (Coreg -) 12.5 mg PO BID [facility] Last Admin: 04/19/17 21:17 Dose: 12.5 mg Fluocinonide (Lidex 0.05% Cream -) 1 applic TP DAILY [facility] Last Admin: 04/19/17 10:15 Dose: 1 applic Furosemide (Lasix Injection -) 40 mg IVPUSH DAILY [facility] Last Admin: 04/19/17 10:14 Dose: 40 mg Heparin Sodium (Porcine) (Heparin -) 5,000 unit SQ BID [facility] Last Admin: 04/19/17 21:17 Dose: 5,000 unit Insulin Aspart (Novolog Vial Sliding Scale -) 1 vial SQ BIDAC [facility] PRN Reason: Protocol Last Admin: 04/20/17 06:33 Dose: Not Given Insulin Detemir (Levemir Vial) 8 units SQ HS [facility] Last Admin: 04/19/17 22:03 Dose: 8 units Nicotine (Nicoderm Patch -) 7 mg TD DAILY [facility] Last Admin: 04/19/17 10:14 Dose: 7 mg Pantoprazole Sodium (Protonix -) 40 mg PO DAILY [facility] Last Admin: 04/19/17 10:14 Dose: 40 mg Tamsulosin HCl (Flomax -) 0.8 mg PO DAILY@0830 [facility] Last Admin: 04/19/17 08:34 Dose: 0.8 mg CBC, BMP 04/20/17 08:10 04/20/17 08:10 Microbiology 04/16/17 04:57 Blood Culture - Preliminary Blood - Peripheral Venous NO GROWTH OBTAINED AFTER 96 HOURS, INCUBATION TO CONTINUE FOR 1 DAYS. 04/16/17 04:57 Blood Culture - Preliminary Blood - Peripheral Venous NO GROWTH OBTAINED AFTER 96 HOURS, INCUBATION TO CONTINUE FOR 1 DAYS. Physical Examination Constitutional: Yes: No Distress, Calm, Eyes: Yes: Conjunctiva Clear Neck: Yes: Supple. no jvd Cardiovascular: Yes: Regular Rate and Rhythm. Respiratory: Yes: Diminished Gastrointestinal: Yes: Normal Bowel Sounds, Soft Extremities: Yes: Erythema (left lower extremity)--slightly decreased Edema: decreased swelling/ erythema Neurological: Yes: Alert/ awake Imaging - Results Chest X-ray: Report Reviewed Ultrasound: Report Reviewed EKG: Report Reviewed Assessment/Plan clinically stable endoscopy planned for tomorrow Plavix held continue present care will follow restart plavix after procedure arnaud. will follow. smoking cessation counselled again. Problem List - Problems (1) Cellulitis of left leg Code(s): L03.116 - CELLULITIS OF LEFT LOWER LIMB (2) ASHD (arteriosclerotic heart disease) Code(s): I25.10 - ATHSCL HEART DISEASE OF [place] CORONARY ARTERY W/O ANG PCTRS (3) Arterial insufficiency of lower extremity Code(s): I73.9 - PERIPHERAL VASCULAR DISEASE, UNSPECIFIED (4) Chronic renal insufficiency Code(s): N18.9 - CHRONIC KIDNEY DISEASE, UNSPECIFIED (5) Diabetes Code(s): E11.9 - TYPE 2 DIABETES MELLITUS WITHOUT COMPLICATIONS Qualifiers: Diabetes mellitus type: type 2 Diabetes mellitus complication detail: with nephropathy (6) Diastolic CHF Code(s): I50.30 - UNSPECIFIED DIASTOLIC (CONGESTIVE) HEART FAILURE (7) Edema Code(s): R60.9 - EDEMA, UNSPECIFIED Qualifiers: Edema type: unspecified Qualified Code(s): R60.9 - Edema, unspecified (8) Smoker unmotivated to quit Code(s): F17.200 - NICOTINE DEPENDENCE, UNSPECIFIED, UNCOMPLICATED (9) Anemia Code(s): D64.9 - ANEMIA, UNSPECIFIED
[2017-04-20] MEDS: HEPARIN NA (PORCINE) 5,000 UNITS/ML 1ML VIAL SQ SCH ×2 (10:58→22:03)
[2017-04-20] MEDS: CARVEDILOL 12.5 MG TABLET (FP) PO SCH ×2 (10:58→22:03)
[2017-04-20] MEDS: FLUOCINONIDE 0.05% CREAM (15 GM TUBE) TP SCH (10:58)
[2017-04-20] MEDS: PANTOPRAZOLE 40 MG TABLET (FP) PO SCH (10:58)
[2017-04-20] MEDS: TAMSULOSIN HCL 0.4 MG CAP.ER.24H (FP) PO SCH (10:58)
[2017-04-20] MEDS: ASPIRIN 81 MG CHEWABLE TABLETS PO SCH (10:58)
[2017-04-20] MEDS: NICOTINE 7 MG/24 HOURS TOPICAL PATCH TD SCH (11:10)
--- NOTE | 2017-04-20 11:30 | PN ---
Progress Note (short form) - Note Progress Note: No acute events Being evaluate by heme as well Discussed plan for EGD/Colonoscopy with Mr. Solis for tomorrow. We discussed potential risks of the procedures like but not limited to bleeding, perforation requiring surgery to repair, infection, sedation medication effects all of which could be potentially life threatening. He has agreed to the procedures. NPO after midnight Bowel prep today IV hydration while NPO per PMD Problem List - Problems (1) Anemia Code(s): D64.9 - ANEMIA, UNSPECIFIED
[2017-04-20] MEDS ORDERED: BISACODYL 5 MG TABLET.DR (FP) PO ONE (14:00)
[2017-04-20] MEDS ORDERED: PEG3350/SOD SULF,BICARB,CL/KCL 4,000 ML SOLN.RECON PO ONE (15:00)
[2017-04-20] MEDS: INSULIN DETEMIR 100 UNITS/ML MDV SQ SCH (22:05)
[2017-04-21] MEDS: INSULIN SLIDING SCALE (NOVOLOG) 1 VIAL SQ SCH ×2 (06:25→17:52)
[2017-04-21] MEDS: DEXTROSE 5%-NORMAL SALINE 1,000 ML IV SCH (07:11)
--- NOTE | 2017-04-21 10:07 | PN ---
Progress Note, Physician Chief Complaint: no distress - Current Medication List Current Medications: Active Medications Acetaminophen (Tylenol -) 325 mg PO Q4H PRN PRN Reason: PAIN LEVEL 1-5 Aspirin (Asa -) 81 mg PO DAILY [facility] Last Admin: 04/20/17 10:58 Dose: 81 mg Carvedilol (Coreg -) 12.5 mg PO BID [facility] Last Admin: 04/20/17 22:03 Dose: 12.5 mg Fluocinonide (Lidex 0.05% Cream -) 1 applic TP DAILY [facility] Last Admin: 04/20/17 10:58 Dose: 1 applic Furosemide (Lasix Injection -) 40 mg IVPUSH DAILY [facility] Last Admin: 04/19/17 10:14 Dose: 40 mg Heparin Sodium (Porcine) (Heparin -) 5,000 unit SQ BID [facility] Last Admin: 04/20/17 22:03 Dose: 5,000 unit Dextrose/Sodium Chloride (D5-Ns -) 1,000 mls @ 60 mls/hr IV ASDIR [facility] Last Admin: 04/21/17 07:11 Dose: 60 mls/hr Insulin Aspart (Novolog Vial Sliding Scale -) 1 vial SQ BIDAC [facility] PRN Reason: Protocol Last Admin: 04/21/17 06:25 Dose: Not Given Insulin Detemir (Levemir Vial) 8 units SQ HS [facility] Last Admin: 04/20/17 22:05 Dose: 8 units Nicotine (Nicoderm Patch -) 7 mg TD DAILY [facility] Last Admin: 04/20/17 11:10 Dose: 7 mg Pantoprazole Sodium (Protonix -) 40 mg PO DAILY [facility] Last Admin: 04/20/17 10:58 Dose: 40 mg Tamsulosin HCl (Flomax -) 0.8 mg PO DAILY@0830 [facility] Last Admin: 04/20/17 10:58 Dose: 0.8 mg - Objective Vital Signs: Vital Signs Temperature 97.6 F 04/21/17 06:00 Pulse Rate 87 04/21/17 06:00 Respiratory Rate 18 04/21/17 06:00 Blood Pressure 134/62 04/21/17 06:00 O2 Sat by Pulse Oximetry (%) 94 L 04/20/17 22:00 Constitutional: Yes: No Distress Cardiovascular: Yes: Regular Rate and Rhythm Respiratory: Yes: CTA Bilaterally Gastrointestinal: Yes: Soft Edema: Yes Edema: LLE: 1+, RLE: 1+ Neurological: Yes: Alert, Oriented Labs: CBC, BMP 04/20/17 08:10 04/20/17 08:10 INR, PTT INR 1.20 (0.82-1.09) H 04/16/17 04:57 Laboratory Tests 04/20/17 04/20/17 08:10 08:10 WBC 5.0 Hgb 7.5 L Plt Count 152 Potassium 4.7 Creatinine 1.8 H Assessment/Plan Assessment/Plan 56 year old man with a history of Acute on chronic diastolic CHF, Severe PAD s/ p RLE bypass in January 2017, CAD s/p PCI, Acute on chronic renal failure, IDDM , Prior CVA, Anemia recently admitted with acute on chronic diastolic CHF and cellulitis now readmitted with worsening lower extremity edema and LLE erythema concerning for recurrent cellulitis. Acute on chronic diastolic CHF Severe PAD s/p RLE bypass in January 2017 CAD s/p PCI Acute on chronic renal failure Chronic diastolic CHF IDDM Prior CVA Anemia REC: Volume status improved -keep legs elevated -not felt to be acute cellulitis thus Abx are held -last echo showed normal LV systolic function no sig valvular abnl -No DVT on Doppler -plavix held for plan for endoscopy, no cardiac contraindication for this procedure at this time
[2017-04-21] MEDS: TAMSULOSIN HCL 0.4 MG CAP.ER.24H (FP) PO SCH (10:14)
[2017-04-21] MEDS: ASPIRIN 81 MG CHEWABLE TABLETS PO SCH (10:14)
[2017-04-21] MEDS: CARVEDILOL 12.5 MG TABLET (FP) PO SCH ×2 (10:20→22:24)
[2017-04-21] MEDS: FLUOCINONIDE 0.05% CREAM (15 GM TUBE) TP SCH (10:20)
[2017-04-21] MEDS: PANTOPRAZOLE 40 MG TABLET (FP) PO SCH (10:21)
--- NOTE | 2017-04-21 10:30 | PN ---
Progress Note (short form) - Note Progress Note: patient seen and examined in his room denies chest pain denies sob denies dizziness LE edema better finished bowel prep Vital Signs Temp 97.6 F 04/21/17 06:00 Pulse 87 04/21/17 06:00 Resp 18 04/21/17 06:00 BP 134/62 04/21/17 06:00 Pulse Ox 94 L 04/20/17 22:00 Intake & Output 04/20/17 04/20/17 04/21/17 11:59 23:59 11:59 Intake Total 350 0 Output Total 900 1550 Balance -900 -1200 0 Intake: Oral 350 0 Output: Urine 900 1550 Void 900 1550 Other: Voiding Method Toilet Urinal Urinal Bowel Movement Yes # Bowel Movements 3 Active Medications Acetaminophen (Tylenol -) 325 mg PO Q4H PRN PRN Reason: PAIN LEVEL 1-5 Aspirin (Asa -) 81 mg PO DAILY [facility] Last Admin: 04/21/17 10:14 Dose: Not Given Carvedilol (Coreg -) 12.5 mg PO BID [facility] Last Admin: 04/21/17 10:20 Dose: 12.5 mg Fluocinonide (Lidex 0.05% Cream -) 1 applic TP DAILY [facility] Last Admin: 04/21/17 10:20 Dose: 1 applic Furosemide (Lasix Injection -) 40 mg IVPUSH DAILY [facility] Last Admin: 04/19/17 10:14 Dose: 40 mg Heparin Sodium (Porcine) (Heparin -) 5,000 unit SQ BID [facility] Last Admin: 04/20/17 22:03 Dose: 5,000 unit Dextrose/Sodium Chloride (D5-Ns -) 1,000 mls @ 60 mls/hr IV ASDIR [facility] Last Admin: 04/21/17 07:11 Dose: 60 mls/hr Insulin Aspart (Novolog Vial Sliding Scale -) 1 vial SQ BIDAC [facility] PRN Reason: Protocol Last Admin: 04/21/17 06:25 Dose: Not Given Insulin Detemir (Levemir Vial) 8 units SQ HS [facility] Last Admin: 04/20/17 22:05 Dose: 8 units Nicotine (Nicoderm Patch -) 7 mg TD DAILY [facility] Last Admin: 04/20/17 11:10 Dose: 7 mg Pantoprazole Sodium (Protonix -) 40 mg PO DAILY [facility] Last Admin: 04/21/17 10:21 Dose: Not Given Tamsulosin HCl (Flomax -) 0.8 mg PO DAILY@0830 [facility] Last Admin: 04/21/17 10:14 Dose: Not Given N- alert, oriented cvs-s1s2 lungs- clear abd- soft, nt, nd LE- edema, stasis changes A/P Acute on chronic diastolic HF Severe PAD- s/p left fem-tibial bypass 2013, Right fem-pop bypass-2016 history of CVA DM History of LE cellulitis anemia CKD copd peripheral neuropathy -LE stasis changes- not cellulitis- antibiotics discontinued by ID -Leg elevation -lasix -plavix on hold for GI procedure- PER vascular note to resume plavix JUAN JOSE -insulin SS -for upper endoscopy and colonoscopy today - Problem List - Problems (1) History of CVA (cerebrovascular accident) Code(s): Z86.73 - PRSNL HX OF TIA (TIA), AND CEREB INFRC W/O RESID DEFICITS (2) CKD (chronic kidney disease) Code(s): N18.9 - CHRONIC KIDNEY DISEASE, UNSPECIFIED Qualifiers: Chronic kidney disease stage: unspecified stage Qualified Code(s): N18.9 - Chronic kidney disease, unspecified (3) Diabetic neuropathy Code(s): E11.40 - TYPE 2 DIABETES MELLITUS WITH DIABETIC NEUROPATHY, UNSP Qualifiers: Diabetes mellitus type: due to underlying condition (4) Diastolic CHF Code(s): I50.30 - UNSPECIFIED DIASTOLIC (CONGESTIVE) HEART FAILURE (5) Edema Code(s): R60.9 - EDEMA, UNSPECIFIED Qualifiers: Edema type: unspecified Qualified Code(s): R60.9 - Edema, unspecified (6) History of arterial bypass of lower extremity Code(s): Z95.828 - PRESENCE OF OTHER VASCULAR IMPLANTS AND GRAFTS (7) PAD (peripheral artery disease) Code(s): I73.9 - PERIPHERAL VASCULAR DISEASE, UNSPECIFIED
--- NOTE | 2017-04-21 17:38 | PN ---
Progress Note (short form) - Note Progress Note: patient was seen and examined with CAR REFINISHER Janet this morning. I discussed the case I agree with assessment and plan as well as physical exam. documentation reviewed. Endoscopic today Will follow Vital Signs Period Temp Pulse Resp BP Sys/Fuentes Pulse Ox Last 24 Hr 97.3 F-98.5 F 72-87 18-21 108-155/37-91 94-99 Active Medications Acetaminophen (Tylenol -) 325 mg PO Q4H PRN PRN Reason: PAIN LEVEL 1-5 Aspirin (Asa -) 81 mg PO DAILY [facility] Last Admin: 04/21/17 10:14 Dose: Not Given Carvedilol (Coreg -) 12.5 mg PO BID [facility] Last Admin: 04/21/17 10:20 Dose: 12.5 mg Cyanocobalamin (Vitamin B12 -) 1,000 mcg PO DAILY [facility] Fluocinonide (Lidex 0.05% Cream -) 1 applic TP DAILY [facility] Last Admin: 04/21/17 10:20 Dose: 1 applic Furosemide (Lasix Injection -) 40 mg IVPUSH DAILY [facility] Last Admin: 04/19/17 10:14 Dose: 40 mg Heparin Sodium (Porcine) (Heparin -) 5,000 unit SQ BID [facility] Last Admin: 04/20/17 22:03 Dose: 5,000 unit Dextrose/Sodium Chloride (D5-Ns -) 1,000 mls @ 60 mls/hr IV ASDIR [facility] Last Admin: 04/21/17 07:11 Dose: 60 mls/hr Insulin Aspart (Novolog Vial Sliding Scale -) 1 vial SQ BIDAC [facility] PRN Reason: Protocol Last Admin: 04/21/17 06:25 Dose: Not Given Insulin Detemir (Levemir Vial) 8 units SQ HS [facility] Last Admin: 04/20/17 22:05 Dose: 8 units Nicotine (Nicoderm Patch -) 7 mg TD DAILY [facility] Last Admin: 04/20/17 11:10 Dose: 7 mg Pantoprazole Sodium (Protonix -) 40 mg PO DAILY [facility] Last Admin: 04/21/17 10:21 Dose: Not Given Tamsulosin HCl (Flomax -) 0.8 mg PO DAILY@0830 [facility] Last Admin: 04/21/17 10:14 Dose: Not Given physical exam N- alert, oriented cvs-s1s2 lungs- clear abd- soft, nt, nd LE- edema, stasis changes A/P Acute on chronic diastolic HF Severe PAD- s/p left fem-tibial bypass 2013, Right fem-pop bypass-2016 history of CVA DM History of LE cellulitis anemia CKD copd peripheral neuropath Problem List - Problems (1) Cellulitis of left leg Code(s): L03.116 - CELLULITIS OF LEFT LOWER LIMB (2) ASHD (arteriosclerotic heart disease) Code(s): I25.10 - ATHSCL HEART DISEASE OF [place] CORONARY ARTERY W/O ANG PCTRS (3) Arterial insufficiency of lower extremity Code(s): I73.9 - PERIPHERAL VASCULAR DISEASE, UNSPECIFIED (4) Chronic renal insufficiency Code(s): N18.9 - CHRONIC KIDNEY DISEASE, UNSPECIFIED (5) Diabetes Code(s): E11.9 - TYPE 2 DIABETES MELLITUS WITHOUT COMPLICATIONS Qualifiers: Diabetes mellitus type: type 2 Diabetes mellitus complication detail: with nephropathy (6) Diastolic CHF Code(s): I50.30 - UNSPECIFIED DIASTOLIC (CONGESTIVE) HEART FAILURE (7) Edema Code(s): R60.9 - EDEMA, UNSPECIFIED Qualifiers: Edema type: unspecified Qualified Code(s): R60.9 - Edema, unspecified (8) Smoker unmotivated to quit Code(s): F17.200 - NICOTINE DEPENDENCE, UNSPECIFIED, UNCOMPLICATED (9) Anemia Code(s): D64.9 - ANEMIA, UNSPECIFIED
[2017-04-21] MEDS ORDERED: INSULIN (NOVOLOG) ASPART 100 UNITS/ML 10ML VIAL ONE (17:50)
[2017-04-21] MEDS: NICOTINE 7 MG/24 HOURS TOPICAL PATCH TD SCH (17:52)
[2017-04-21] MEDS: CYANOCOBALAMIN 1,000 MCG TABLET (FP) PO SCH (17:53)
--- NOTE | 2017-04-21 17:53 | PATH ---
Surgical Pathology Report Patient Name: FINA ZHOU Med. Rec. #: [id number] /Age/Gender: 1960 (Age: 56) / M Account: [id number] Location: [facility] MED/SURG Taken: 04/20/2017 Received: 04/20/2017 Reported: 04/21/2017 Physicians: Flash Malave M.D. Specimen(s) Received PERIPHERAL BLOOD 2 LAVENDER Clinical History Anemia Final Diagnosis COMPREHENSIVE FLOW PANEL performed and interpreted at [facility] laboratory, [place], [place] ([id number]) shows the following: INTERPRETATION: No atypical flow cytometric findings seen. PHENOTYPE: Lymphocytes include rare B cells that appear polyclonal, NK cells, and immunophenotypically normal CD4+ and CD8+ T cells. No evidence of a clonal lymphoid expansion. Granulocytes are immunophenotypically mature. CYTOMORPHOLOGY: No increase in myeloblasts or atypical lymphocytes. See [facility] report ([id number]) for additional details. Electronically Signed Dorothy Del Valle M.D. Addendum Reported: 04/26/2017 Addendum Diagnosis Hematologic FISH Report performed and interpreted at [facility] in [place], [place] ([id number]) shows the following. INTERPRETATION: No evidence of deletion 5q or monosomy 5 is present. No evidence of deletion 7q or monosomy 7 is present. No evidence of trisomy 8 (+8) is present. No evidence of deletion 13q14 is present. No evidence of a rearrangement of 11q23. No evidence of a deletion of the p53 (17p13) locus. No evidence of deletion 20q12 is present. Comments: Seven multiplex probes stain procedures were performed. See [facility] report for details. Dorothy Del Valle M.D. Gross Description Received are 2 lavender top tubes of peripheral blood which are sent to [facility]. 04/20/201704/20/2017
[2017-04-21] MEDS: INSULIN DETEMIR 100 UNITS/ML MDV SQ SCH (22:23)
[2017-04-21] MEDS: HEPARIN NA (PORCINE) 5,000 UNITS/ML 1ML VIAL SQ SCH (22:24)
[2017-04-22] MEDS: DEXTROSE 5%-NORMAL SALINE 1,000 ML IV SCH (06:00)
[2017-04-22] MEDS: INSULIN SLIDING SCALE (NOVOLOG) 1 VIAL SQ SCH (06:00)
[2017-04-22] MEDS: FLUOCINONIDE 0.05% CREAM (15 GM TUBE) TP SCH (09:30)
[2017-04-22] MEDS: PANTOPRAZOLE 40 MG TABLET (FP) PO SCH (09:30)
[2017-04-22] MEDS: CYANOCOBALAMIN 1,000 MCG TABLET (FP) PO SCH (09:30)
[2017-04-22] MEDS: TAMSULOSIN HCL 0.4 MG CAP.ER.24H (FP) PO SCH (09:30)
[2017-04-22] MEDS: CARVEDILOL 12.5 MG TABLET (FP) PO SCH (09:30)
[2017-04-22] MEDS: HEPARIN NA (PORCINE) 5,000 UNITS/ML 1ML VIAL SQ SCH (09:30)
[2017-04-22] MEDS: ASPIRIN 81 MG CHEWABLE TABLETS PO SCH (09:56)
--- NOTE | 2017-04-22 12:16 | DS ---
Physical Examination Vital Signs: Vital Signs Temperature 97.3 F L 04/22/17 06:00 Pulse Rate 85 04/22/17 06:00 Respiratory Rate 20 04/22/17 06:00 Blood Pressure 159/65 04/22/17 06:00 O2 Sat by Pulse Oximetry (%) 96 04/21/17 21:00 Findings/Remarks: feels well. walking in hallway. denies pain wants to go home s/p egd/ colonoscopy yesterday egd - ok colonoscopy - diverticulosis. Constitutional: Yes: No Distress, Calm Eyes: Yes: Conjunctiva Clear Neck: Yes: Supple Cardiovascular: Yes: Regular Rate and Rhythm Respiratory: Yes: CTA Bilaterally Gastrointestinal: Yes: Soft Extremities: Yes: Erythema (decreased) Neurological: Yes: Alert Psychiatric: Yes: Alert Labs: CBC, BMP 04/20/17 08:10 04/20/17 08:10 Discharge Summary Reason For Visit: CELLULITIS OF LEFT LOWER EXTERMITY Current Active Problems Anemia (Acute) Cellulitis of left leg (Acute) History of CVA (cerebrovascular accident) (Acute) Smoker unmotivated to quit (Acute) Stasis dermatitis of left lower extremity due to peripheral venous hypertension (Acute) Hospital Course: 56 year old man with extensive history of Acute on chronic diastolic CHF, Severe PAD s/p RLE bypass in January 2017, CAD s/p PCI, Acute on chronic renal failure, IDDM, Prior CVA, Anemia recently admitted with acute on chronic diastolic CHF and cellulitis now readmitted with worsening lower extremity edema and LLE erythema / recurrent cellulitis. pt given abx i/d consult taken - abx stopped as felt not cellulitis/ better hanna bandage applied pt also underwent egd/ colonoscopy for anemia-- essentially -ve hem consult also taken for anemia- lab work pending. pt now stable for discharge meds reconcilled restart plavix. pt strongly counselled again to not to go back to smoking. pt agrees. discussed with nursing staff will follow closely in office-- discharge time 35 min in examining/documenting and coordating care. Condition: Fair - Instructions Referrals: Malinda Islas MD [Primary Care Provider] - Disposition: HOME - Home Medications Comprehensive Discharge Medication List: Ambulatory Orders Glipizide [Glipizide ER] 5 mg PO DAILY 10/15/13 Amlodipine Besylate [Norvasc -] 5 mg PO DAILY 09/17/16 Clopidogrel Bisulfate [Plavix -] 75 mg PO DAILY 10/17/16 Carvedilol [Coreg -] 12.5 mg PO BID #60 tablet 10/24/16 Acetaminophen [Tylenol .Regular Strength -] 325 mg PO Q4H PRN #0 tablet Aspirin [ASA -] 81 mg PO DAILY tab.chew 02/25/17 Tamsulosin HCl [Flomax -] 0.8 mg PO DAILY@0830 #30 tab 02/25/17 Furosemide [Lasix -] 40 mg PO BID #90 tablet 04/03/17 Nicotine Patch [Nicoderm Patch -] 7 mg TD DAILY #30 patch 04/03/17 Cyanocobalamin [Vitamin B12 -] 1,000 mcg PO DAILY tablet 04/22/17 Fluocinonide 0.05% Cream [Lidex 0.05% Cream -] 1 applic TP DAILY #1 tube
[2017-04-22 12:46] VITALS: BP 148/64; PULSE 82; TEMP 98.3
[2017-04-22] MEDS: NICOTINE 7 MG/24 HOURS TOPICAL PATCH TD SCH (12:58)
--- NOTE | 2017-04-22 13:51 | PN ---
Progress Note, Physician Chief Complaint: Pt A&Ox3; ambulatory; no complaints. History of Present Illness: 56 year old white man with a history of Acute on chronic diastolic CHF, Severe PAD s/p RLE bypass in January 2017, CAD s/p PCI, Acute on chronic renal failure , IDDM, Prior CVA, Anemia recently admitted with acute on chronic diastolic CHF and cellulitis now readmitted with worsening lower extremity edema and LLE erythema concerning for recurrent cellulitis. Acute on chronic diastolic CHF Severe PAD s/p RLE bypass in January 2017 CAD s/p PCI Acute on chronic renal failure Chronic diastolic CHF IDDM Prior CVA - Current Medication List Current Medications: Active Medications Acetaminophen (Tylenol -) 325 mg PO Q4H PRN PRN Reason: PAIN LEVEL 1-5 Aspirin (Asa -) 81 mg PO DAILY [facility] Last Admin: 04/22/17 09:56 Dose: 81 mg Carvedilol (Coreg -) 12.5 mg PO BID [facility] Last Admin: 04/22/17 09:30 Dose: 12.5 mg Cyanocobalamin (Vitamin B12 -) 1,000 mcg PO DAILY [facility] Last Admin: 04/22/17 09:30 Dose: 1,000 mcg Fluocinonide (Lidex 0.05% Cream -) 1 applic TP DAILY [facility] Last Admin: 04/22/17 09:30 Dose: 1 applic Furosemide (Lasix Injection -) 40 mg IVPUSH DAILY [facility] Last Admin: 04/19/17 10:14 Dose: 40 mg Heparin Sodium (Porcine) (Heparin -) 5,000 unit SQ BID [facility] Last Admin: 04/22/17 09:30 Dose: 5,000 unit Dextrose/Sodium Chloride (D5-Ns -) 1,000 mls @ 60 mls/hr IV ASDIR [facility] Last Admin: 04/22/17 06:00 Dose: Not Given Insulin Aspart (Novolog Vial Sliding Scale -) 1 vial SQ BIDAC [facility] PRN Reason: Protocol Last Admin: 04/22/17 06:00 Dose: Not Given Insulin Detemir (Levemir Vial) 8 units SQ HS [facility] Last Admin: 04/21/17 22:23 Dose: 8 units Nicotine (Nicoderm Patch -) 7 mg TD DAILY [facility] Last Admin: 04/22/17 12:58 Dose: Not Given Pantoprazole Sodium (Protonix -) 40 mg PO DAILY [facility] Last Admin: 04/22/17 09:30 Dose: 40 mg Tamsulosin HCl (Flomax -) 0.8 mg PO DAILY@0830 [facility] Last Admin: 04/22/17 09:30 Dose: 0.8 mg - Objective Vital Signs: Vital Signs Temperature 98.3 F 04/22/17 10:00 Pulse Rate 82 04/22/17 10:00 Respiratory Rate 18 04/22/17 10:00 Blood Pressure 148/64 04/22/17 10:00 O2 Sat by Pulse Oximetry (%) 96 04/21/17 21:00 Labs: CBC, BMP 04/20/17 08:10 04/20/17 08:10 INR, PTT INR 1.20 (0.82-1.09) H 04/16/17 04:57 Problem List - Problems (1) Anemia Code(s): D64.9 - ANEMIA, UNSPECIFIED (2) Cellulitis of left leg Code(s): L03.116 - CELLULITIS OF LEFT LOWER LIMB (3) History of CVA (cerebrovascular accident) Code(s): Z86.73 - PRSNL HX OF TIA (TIA), AND CEREB INFRC W/O RESID DEFICITS (4) Smoker unmotivated to quit Code(s): F17.200 - NICOTINE DEPENDENCE, UNSPECIFIED, UNCOMPLICATED (5) Stasis dermatitis of left lower extremity due to peripheral venous hypertension Code(s): I87.322 - CHRONIC VENOUS HYPERTENSION W INFLAMMATION OF L LOW EXTREM (6) ASHD (arteriosclerotic heart disease) Code(s): I25.10 - ATHSCL HEART DISEASE OF [place] CORONARY ARTERY W/O ANG PCTRS (7) CAD (coronary artery disease) Code(s): I25.10 - ATHSCL HEART DISEASE OF [place] CORONARY ARTERY W/O ANG PCTRS Qualifiers: Coronary Disease-Associated Artery/Lesion type: [place] artery [place] vs. transplanted heart: [place] heart Associated angina: without angina Qualified Code(s): I25.10 - Atherosclerotic heart disease of [place] coronary artery without angina pectoris (8) CKD (chronic kidney disease) Code(s): N18.9 - CHRONIC KIDNEY DISEASE, UNSPECIFIED Qualifiers: Chronic kidney disease stage: unspecified stage Qualified Code(s): N18.9 - Chronic kidney disease, unspecified (9) COPD exacerbation Code(s): J44.1 - CHRONIC OBSTRUCTIVE PULMONARY DISEASE W (ACUTE) EXACERBATION (10) Diabetes Code(s): E11.9 - TYPE 2 DIABETES MELLITUS WITHOUT COMPLICATIONS Qualifiers: Diabetes mellitus type: type 2 Diabetes mellitus complication detail: with nephropathy (11) HTN (hypertension) Code(s): I10 - ESSENTIAL (PRIMARY) HYPERTENSION (12) Hyperlipidemia Code(s): E78.5 - HYPERLIPIDEMIA, UNSPECIFIED
[2017-04-27 09:46] LABS: ALBUMIN 2.7 g/dL (2.9-4.4); GAMMA GLOBULIN 0.8 g/dL (0.4-1.8); GLOBULIN, TOTAL 2.8 g/dL (2.2-3.9); IGA ANTIBODY 197 mg/dL (90-386); IGG ANTIBODY 841 mg/dL (700-1600); IGM ANTIBODY 24 mg/dL (20-172)
== END 2017-04-22 14:49 | disposition home or self-care (01) | DRG 291 ==
LOC: JER 02:42 → JERBED 09:42 → J8W 12:23
PROVIDERS: ADMIT Internal Medicine; ATTEND Internal Medicine
PROC: 0DJ08ZZ Inspection of Upper Intestinal Tract, Via Natural or Artificial Opening Endoscopic (ICD-10-PCS; 2017-04-21)
PROC: 0DJD8ZZ Inspection of Lower Intestinal Tract, Via Natural or Artificial Opening Endoscopic (ICD-10-PCS; principal; 2017-04-21 12:00)
DX: I13.0 Hypertensive heart and chronic kidney disease with heart failure and stage 1 through stage 4 chronic kidney disease, or unspecified chronic kidney disease (principal); I50.33 Acute on chronic diastolic (congestive) heart failure; L03.116 Cellulitis of left lower limb; E11.22 Type 2 diabetes mellitus with diabetic chronic kidney disease; N18.9 Chronic kidney disease, unspecified; I25.10 Atherosclerotic heart disease of native coronary artery without angina pectoris; Z98.61 Coronary angioplasty status; D64.9 Anemia, unspecified; J44.9 Chronic obstructive pulmonary disease, unspecified; Z86.73 Personal history of transient ischemic attack (TIA), and cerebral infarction without residual deficits; E78.5 Hyperlipidemia, unspecified; K57.90 Diverticulosis of intestine, part unspecified, without perforation or abscess without bleeding; R60.9 Edema, unspecified; E11.42 Type 2 diabetes mellitus with diabetic polyneuropathy; K64.8 Other hemorrhoids; I87.322 Chronic venous hypertension (idiopathic) with inflammation of left lower extremity
CPT/HCPCS: 36415; 71010-TC; 73590-TC-LT; 80053; 82136; 82272; 82550; 82607; 82728; 82746; 82784; 83540; 83550; 83615; 83880; 83918; 84155; 84165; 84443; 84484; 85025; 85044; 85610; 85651; 85730; 86038; 86140; 86334; 86850; 86900; 86901; 87040; 88300-TC; 93005; 93010; 93970-TC; 97116-GP; 97161-GP; 99284-25; J1644

== ENCOUNTER 2017-06-01 02:42 | Inpatient (IN) | payer OTHER ==
[2017-06-01 03:30] VITALS: BMI 34.0
--- NOTE | 2017-06-01 03:32 | PDOC ---
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 Patient reports experiencing bilateral chest pain that he states began suddenly while at home that he states feels similar to gas. He reports experiencing terrible back pain that began this afternoon at 2pm. He reports having to carry his walker 2 blocks due to the snow during the last snowfall, that he says is the reason for his back pain. He reports experiencing intermittent neck pain that began 4 hours prior to ED arrival, due to turning his head to fast. Patient reports feeling uncomfortability from his right leg, stating it feels like my leg is getting infected. He reports experiencing 3 episodes of intermittent vomiting that began yesterday afternoon. Denies Sob, coughing. Denies fevers, headache. Denies trauma to affected area. Denies contact with sick individuals, out of state travelling. Denies any other symptoms. Allergies: None Social history: Lives alone. No smoking. No alcohol. No illicit drugs. Surgical history: Bilateral Bypass, Stent PMD: Dr. Ariadna Huizar Vascular surgeon: Dr. Humphrey 06/01/17 05:34 <Ernie Spencer - Last Filed: 06/01/17 05:34> <Lynne Padilla - Last Filed: 06/01/17 07:49> - General Chief Complaint: Pain Stated Complaint: CHEST PAIN Time Seen by Provider: 06/01/17 03:32 Past History <Ernie Spencer - Last Filed: 06/01/17 05:34> - Past Medical History Anemia: No Asthma: No Cancer: No Cardiac Disorders: Yes (stent x 2) CVA: Yes (2009, 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) COPD: No CHF: No Dementia: No Diabetes: Yes GI Disorders: No Disorders: No HTN: Yes Hypercholesterolemia: Yes Liver Disease: No Seizures: No Thyroid Disease: No - Surgical History Abdominal Surgery: No Appendectomy: No Cardiac Surgery: Yes (STENTS X2) Cholecystectomy: No Lung Surgery: No Neurologic Surgery: No Orthopedic Surgery: No - Immunization History Immunization Up to Date: Yes - Suicide/Smoking/Psychosocial Hx Smoking Status: Yes Smoking History: Current some day smoker Have you smoked in the past 12 months: Yes Number of Cigarettes Smoked Daily: 10 If you are a former smoker, when did you quit?: 09/2016 Cigars Per Day: 0 Information on smoking cessation initiated: No 'Breaking Loose' booklet given: 02/09/17 Hx Alcohol Use: No Drug/Substance Use Hx: No Substance Use Type: None Hx Substance Use Treatment: No <Lynne Padilla - Last Filed: 06/01/17 07:49> - Past Medical History Allergies/Adverse Reactions: Allergies Allergy/AdvReac Type Severity Reaction Status Date / Time No Known Drug Allergies Allergy Verified 06/01/17 02:52 Home Medications: Ambulatory Orders Glipizide [Glipizide ER] 5 mg PO DAILY 10/15/13 Amlodipine Besylate [Norvasc -] 5 mg PO DAILY 09/17/16 Clopidogrel Bisulfate [Plavix -] 75 mg PO DAILY 10/17/16 Carvedilol [Coreg -] 12.5 mg PO BID #60 tablet 10/24/16 Acetaminophen [Tylenol .Regular Strength -] 325 mg PO Q4H PRN #0 tablet Aspirin [ASA -] 81 mg PO DAILY tab.chew 02/25/17 Tamsulosin HCl [Flomax -] 0.8 mg PO DAILY@0830 #30 tab 02/25/17 Furosemide [Lasix -] 40 mg PO BID #90 tablet 04/03/17 Review of Systems - Review of Systems Able to Perform ROS?: Yes Comments:: 06/01/17 05:20 CONSTITUTIONAL: Absent: fever, no chills, no fatigue EYES: Absent: visual changes ENT: Absent: ear pain, no sore throat CARDIOVASCULAR: +chest pain. Absent: chest pain, no palpitations RESPIRATORY: Absent: cough, no SOB GI: +Vomiting. Absent: abdominal pain, no nausea, no vomiting, no constipation, no diarrhea GENITOURINARY: Absent: dysuria, no frequency, no hematuria MUSCULOSKELETAL: +Right leg pain. +Upper back pain. +Neck pain. Absent: back pain, no arthralgia, no myalgia SKIN: Absent: rash All Other Systems: Reviewed and Negative <Keith Spencerew - Last Filed: 06/01/17 05:34> *Physical Exam - Vital Signs Last Vital Signs Temp Pulse Resp BP Pulse Ox 98.7 F 100 H 30 H 134/89 93 L 06/01/17 05:20 06/01/17 02:43 06/01/17 02:43 06/01/17 02:43 06/01/17 02:43 <TjErnie - Last Filed: 06/01/17 05:34> - Vital Signs Last Vital Signs Temp Pulse Resp BP Pulse Ox 98.6 F 100 H 30 H 134/89 93 L 06/01/17 02:43 06/01/17 02:43 06/01/17 02:43 06/01/17 02:43 06/01/17 02:43 - Physical Exam General Appearance: Yes: Disheveled. No: Apparent Distress HEENT: positive: Normal Voice, Pharynx Normal Respiratory/Chest: positive: Other (+rales at bases, no resp distress, speaking full sentences, no retractions) Cardiovascular: positive: Regular Rhythm, Tachycardia Vascular Pulses: Femoral (R): 2+, Femoral (L): 2+ Comments:: 06/01/17 06:05 LLE: +palpable femoral, pop, DP/PT RLE: no palpable pulses of fem/pop/DP/PT however, +dopplerable pulses to all locations Gastrointestinal/Abdominal: positive: Normal Bowel Sounds, Soft. negative: Tenderness Lymphatic: negative: Tenderness Extremity: positive: Other (3+ pitting edema to LLE, 2+ pitting edema to RLE, + redness to L calf without tenderness, + swelling/erythema and tenderness to R medial thigh at the site of graft placement. Also with diffuse swelling of L hand, no point bony tenderness of hand/wrist) <Lynne Padilla - Last Filed: 06/01/17 07:49> ED Treatment Course - LABORATORY CBC & Chemistry Diagram: 06/01/17 03:00 06/01/17 03:00 - ADDITIONAL ORDERS Additional order review: Laboratory Results 06/01/17 06/01/17 03:00 03:00 Sodium 140 Potassium 4.8 Chloride 107 Carbon Dioxide 23 D Anion Gap 10 BUN 53 H D Creatinine 2.7 H D Creat Clearance w eGFR 24.39 Random Glucose 159 H D Lactic Acid 0.6 Calcium 7.7 L Total Bilirubin 0.3 D AST 9 L ALT 15 Alkaline Phosphatase 77 Creatine Kinase 102 Troponin I 0.06 H Total Protein 6.1 L Albumin 2.3 L 06/01/17 03:00 RBC 2.79 L MCV 95.1 MCHC 33.2 RDW 14.9 MPV 8.6 Neutrophils % 80.8 D Lymphocytes % 8.6 D Monocytes % 8.1 Eosinophils % 1.9 Basophils % 0.6 <Ernie Spencer - Last Filed: 06/01/17 05:34> - LABORATORY CBC & Chemistry Diagram: 06/01/17 03:00 06/01/17 03:00 <Lynne Padilla - Last Filed: 06/01/17 07:49> Medical Decision Making - Medical Decision Making 06/01/17 06:07 56M with multiple med problems p/w several complaints - SOB and CP as well as bilateral LE edema and most notably swelling and pain to his R medial thigh at the site of his bypass surgery. He appears to be overloaded - crackles, edema and SOB - will give lasix. Regarding the swelling to the RLE - i'm concerned for infection of the graft/surgical site - will give vanc/zosyn and consult Dr. Humphrey. +dopplerable pulses to bilateral LEs. Also, pt with VANDA Cr 2.7, baseline 1.7. Would benefit from IVF but in setting of acute CHF exac, will be gentle with hydration. Admit med. Spoke to Dr. Couch. 06/01/17 07:[address] Humphrey, pt's vascular surgeon, he is aware of pt being admitted. I will order US of RLE to eval for collection/patency and flow in graft. <Lynne Padilla - Last Filed: 06/01/17 07:49> *DC/Admit/Observation/Transfer - Attestations Scribe Attestion: 06/01/17 05:21 Documentation prepared by Ernie Spencer, acting as medical care evaluation specialist for Lynne Padilla DO, MD/. <Ernie Spencer - Last Filed: 06/01/17 05:34>
[2017-06-01 03:33] LABS: BASO % 0.6 % (0-2.0); EOS % 1.9 % (0-4.5); HEMATOCRIT 26.5 % (35.4-49); HEMOGLOBIN 8.8 GM/dL (11.7-16.9); LYMPH % 8.6 % (8-40); MCH 31.5 pg (25.7-33.7); MCHC 33.2 g/dl (32.0-35.9); MEAN CELL VOLUME 95.1 fl (80-96); MEAN PLT VOLUME 8.6 fl (7.5-11.1); MONO % 8.1 % (3.8-10.2); NEUT % 80.8 % (42.8-82.8); PLATELET COUNT 202 K/MM3 (134-434); RBC 2.79 M/mm3 (4.00-5.60); RDW 14.9 % (11.9-15.9)
[2017-06-01 04:01] LABS: ALBUMIN 2.3 g/dl (3.4-5.0); ANION GAP 10 (8-16); BILIRUBIN,TOTAL 0.3 mg/dL (0.2-1.0); BLOOD UREA NITROGEN 53 mg/dL (7-18); CALCIUM 7.7 mg/dL (8.5-10.1); CHLORIDE 107 mmol/L (98-107); CO2 23 mmol/L (21-32); CREATININE 2.7 mg/dL (0.7-1.3); GLUCOSE,RANDOM 159 mg/dL (74-106); POTASSIUM 4.8 mmol/L (3.5-5.1); SGOT/AST 9 U/L (15-37); SGPT/ALT 15 U/L (12-78); SODIUM 140 mmol/L (136-145); TOT PROT 6.1 g/dl (6.4-8.2)
[2017-06-01 04:04] LABS: ALK PHOS 77 U/L (45-117)
[2017-06-01 05:37] LABS: N-TERMINAL BNP 5528.58 pg/ml (5-125)
[2017-06-01] MEDS ORDERED: FUROSEMIDE 40 MG/4 ML INJECTABLE VIAL IVPUSH ONE ×2 (06:01→13:40)
[2017-06-01] MEDS ORDERED: VANCOMYCIN 1,000 MG in DEXTROSE 5%-WATER - 250 ML IVPB ONE ×2 (06:01→17:00)
[2017-06-01] MEDS ORDERED: PIPERACILLIN/TAZOB 3.375 GM/50 ML PRE-DOCKED IVPB ONE (06:02)
[2017-06-01 06:21] LABS: INR 1.2 (0.82-1.09); PROTHROMBIN TIME (PATIENT) 13.6 SEC (9.98-11.88)
[2017-06-01 06:23] LABS: ACTIVATED PTT 30.1 SECONDS (26.9-34.4)
[2017-06-01] MEDS ORDERED: FUROSEMIDE 40 MG/4 ML INJECTABLE VIAL ONE (06:34)
[2017-06-01] MEDS ORDERED: PIPERACILLIN/TAZOB 3.375 GM 3.375 GM/50 ML BAG IVPB ONE (06:35)
[2017-06-01] MEDS ORDERED: VANCOMYCIN 1 GRAM (PRE-DOCKED) 1,000 MG/250 ML BAG IVPB ONE (08:12)
--- NOTE | 2017-06-01 08:33 | HP ---
CHIEF COMPLAINT: Bl leg pain and chest pain PCP: Dr. Ariadna Huizar HISTORY OF PRESENT ILLNESS: This is a 56 year old male with PMHx of CVA 8 years ago with residual left upper and lower extremity weakness, DM, anemia, diastolic heart failure, severe PAD s/p RLE bypass 01/2017, LLE bypass 2013, CAD s/p PCI, COPD, who presented to the ED with chest pain and lower extremity pain, swelling, and erythema. The patient reports that the leg pain is in both legs and has been on and off since his bypass 01/2017. He reports yesterday he noticed an increase in swelling and pain to both lower extremities. He also reports that he has a hx of lower extremity cellulitis. He states his chest pain started about 1 hour prior to arriving in the ED and it moves back and forth from the left side of his chest to the right. He states it is dull and non-radiating. He does report some b/l shoulder pain that began after he carried his walker in the snow because he was unable to push it a few days ago. He denies any nausea, vomiting, abdominal pain , headache, dizziness, syncope. Off note: The patient had left eye ptosis, when asked about it he states that it began 8 weeks ago and that he has a black dot in the center of his vision. He states the dot comes and goes and that it "looks like a bug" in his vision. ER course was notable for: (1) Hgb 8.8, hct 26.5 (2) Cr 2.7 (3) Trop 0.06 (4) Temp 98.6, pulse 100, BP 134/89, resp 30, O2 93% on RA (5) Chest X-ray: No evidence of pulmonary infiltrates, CHF Recent Travel: denies PAST MEDICAL HISTORY: as above PAST SURGICAL HISTORY: as above Social History: Smokin cigarettes per day Alcohol: 2 drinks per year Drugs: denies Family History: Allergies No Known Drug Allergies Allergy (Verified 06/01/17 02:52) HOME MEDICATIONS: Home Medications Medication Instructions Recorded Glipizide [Glipizide ER] 5 mg PO DAILY 10/15/13 Amlodipine Besylate [Norvasc -] 5 mg PO DAILY 09/17/16 Clopidogrel Bisulfate [Plavix -] 75 mg PO DAILY 10/17/16 Carvedilol [Coreg -] 12.5 mg PO BID #60 tablet 10/24/16 Acetaminophen [Tylenol .Regular 325 mg PO Q4H PRN #0 tablet 02/25/17 Strength -] Aspirin [ASA -] 81 mg PO DAILY tab.chew 02/25/17 Tamsulosin HCl [Flomax -] 0.8 mg PO DAILY@0830 #30 tab 02/25/17 Furosemide [Lasix -] 40 mg PO BID #90 tablet 04/03/17 REVIEW OF SYSTEMS CONSTITUTIONAL: Absent: fever, chills, diaphoresis, generalized weakness, malaise, loss of appetite, weight change HEENT: Absent: rhinorrhea, nasal congestion, throat pain, throat swelling, difficulty swallowing, mouth swelling, ear pain, eye pain, visual changes CARDIOVASCULAR: Chest pain that began 1 hour prior to arriving in the ED. It goes from the left to the right, it is dull, non-radiating. Absent: syncope, palpitations, irregular heart rate, lightheadedness RESPIRATORY: Absent: cough, shortness of breath, dyspnea with exertion, orthopnea, wheezing, stridor, hemoptysis GASTROINTESTINAL:Absent: abdominal pain, abdominal distension, nausea, vomiting , diarrhea, constipation, melena, hematochezia GENITOURINARY: Absent: dysuria, frequency, urgency, hesitancy, hematuria, flank pain, genital pain MUSCULOSKELETAL: B/l lower extremity erythema and edema. Absent: myalgia, arthralgia, joint swelling, back pain, neck pain SKIN: Absent: rash, itching, pallor HEMATOLOGIC/IMMUNOLOGIC: Absent: easy bleeding, easy bruising, lymphadenopathy, frequent infections ENDOCRINE:Absent: unexplained weight gain, unexplained weight loss, heat intolerance, cold intolerance NEUROLOGIC: Absent: headache, focal weakness or paresthesias, dizziness, unsteady gait, seizure, mental status changes, bladder or bowel incontinence PSYCHIATRIC: Absent: anxiety, depression, suicidal or homicidal ideation, hallucinations. PHYSICAL EXAMINATION Vital Signs - 24 hr 06/01/17 06/01/17 06/01/17 02:43 05:20 06:05 Temperature 98.6 F 98.7 F Pulse Rate 100 H Pulse Rate [ 98 H Right Apical] Respiratory 30 H 16 Rate Blood Pressure 134/89 Blood Pressure 148/79 [Right Arm] O2 Sat by Pulse 93 L 96 Oximetry (%) GENERAL: Awake, alert, and fully oriented, in no acute distress. HEAD: Normal with no signs of trauma. EYES: Left eye ptosis. Pupils equal, round and reactive to light EARS, NOSE, THROAT: Ears normal, nares patent, oropharynx clear without exudates. Moist mucous membranes. NECK: Normal range of motion, supple without lymphadenopathy LUNGS: Breath sounds equal, clear to auscultation bilaterally HEART: Regular rate and rhythm, normal S1 and S2 ABDOMEN: Soft, nontender, not distended, normoactive bowel sounds, no guarding, no rebound, no masses. No hepatomegaly or splenomegaly. MUSCULOSKELETAL: Normal range of motion at all joints. No bony deformities or tenderness. No CVA tenderness. UPPER EXTREMITIES: 2+ pulses, warm, well-perfused. No cyanosis. No clubbing. No peripheral edema. NEUROLOGICAL: Left eye ptosis. No left buccal expansion. decreased left eyebrow strength. Normal speech. PSYCHIATRIC: Cooperative. Good eye contact. Appropriate mood and affect. SKIN: B/l lower extremity erythema and edema. Right medial thigh induration, warmth, no fluctuance noted Laboratory Results - last 24 hr 06/01/17 06/01/17 06/01/17 03:00 03:00 03:00 WBC 10.0 D RBC 2.79 L Hgb 8.8 L D Hct 26.5 L D MCV 95.1 MCH 31.5 MCHC 33.2 RDW 14.9 Plt Count 202 D MPV 8.6 Neutrophils % 80.8 D Lymphocytes % 8.6 D Monocytes % 8.1 Eosinophils % 1.9 Basophils % 0.6 PT with INR INR PTT (Actin FS) Sodium 140 Potassium 4.8 Chloride 107 Carbon Dioxide 23 D Anion Gap 10 BUN 53 H D Creatinine 2.7 H D Creat Clearance w eGFR 24.39 Random Glucose 159 H D Lactic Acid 0.6 Calcium 7.7 L Total Bilirubin 0.3 D AST 9 L ALT 15 Alkaline Phosphatase 77 Creatine Kinase 102 Troponin I 0.06 H B-Natriuretic Peptide Total Protein 6.1 L Albumin 2.3 L Lipase Stool Occult Blood Acetaminophen 06/01/17 06/01/17 06/01/17 04:27 04:27 05:30 WBC RBC Hgb Hct MCV MCH MCHC RDW Plt Count MPV Neutrophils % Lymphocytes % Monocytes % Eosinophils % Basophils % PT with INR 13.60 H INR 1.20 H PTT (Actin FS) 30.1 Sodium Cancelled Potassium Cancelled Chloride Cancelled Carbon Dioxide Cancelled Anion Gap Cancelled BUN Cancelled Creatinine Cancelled Creat Clearance w eGFR Cancelled Random Glucose Cancelled Lactic Acid Calcium Cancelled Total Bilirubin Cancelled AST Cancelled ALT Cancelled Alkaline Phosphatase Cancelled Creatine Kinase Cancelled Troponin I Cancelled B-Natriuretic Peptide 5528.58 H Total Protein Cancelled Albumin Cancelled Lipase 146 Stool Occult Blood Acetaminophen < 2.000 L 06/01/17 06:30 WBC RBC Hgb Hct MCV MCH MCHC RDW Plt Count MPV Neutrophils % Lymphocytes % Monocytes % Eosinophils % Basophils % PT with INR INR PTT (Actin FS) Sodium Potassium Chloride Carbon Dioxide Anion Gap BUN Creatinine Creat Clearance w eGFR Random Glucose Lactic Acid Calcium Total Bilirubin AST ALT Alkaline Phosphatase Creatine Kinase Troponin I B-Natriuretic Peptide Total Protein Albumin Lipase Stool Occult Blood Negative Acetaminophen Assessment: This is a 56 year old male with PMHx of CVA 8 years ago with residual left upper and lower extremity weakness, DM, anemia, diastolic heart failure, severe PAD s/p RLE bypass 01/2017, LLE bypass 2013, CAD s/p PCI, COPD , who presented to the ED with chest pain and lower extremity pain, swelling, and erythema. Plan: 1) B/l lower extremity cellulitis - Received Vancomycin and Zosyn in the ED - F/u b/l lower extremity arterial dopplers - F/u ID consult - Area of induration on right thigh, f/u vascular surgery consult for further recommendations 2) Chest pain - Continuous cardiac monitoring - Trop 0.06, same as previous admission - Trend troponins 3) VANDA on CKD - Cr 2.7 - F/u kidney/bladder ultrasound to r/o obstruction - F/u urine electrolytes - F/u nephrology consult 4) Left eye ptosis, mouth droop - Patient has hx of CVA 8 years ago - Patient reports left eye ptosis began 8 weeks ago and that he has a black dot in the center of his vision - F/u CT head - F/u neurology consult 5) CAD s/p stenting - Continue ASA - Continue Plavix 6) S/p RLE bypass 01/2017 - Continue ASA - Continue Plavix 7) Diastolic heart failure - No evidence of CHF on chest x-ray - Will hold Lasix for now given VANDA 8) DM - BGM ACHS - ISS ACHS 9) F/E/N: - Monitor electrolytes ) Prophylaxis: - Heparin 5,000u sq tid 11) Dispo: - Requires continued inpatient care CODE STATUS: FULL CODE Care of patient discussed with Dr. Ariadna Huizar (pcp) who has assumed care of the patient as of 9am on 06/01/17 Visit type - Emergency Visit Emergency Visit: Yes ED Registration Date: 06/01/17 Care time: The patient presented to the Emergency Department on the above date and was hospitalized for further evaluation of their emergent condition. - New Patient This patient is new to me today: Yes Date on this admission: 06/01/17 - Critical Care Critical Care patient: No
[2017-06-01 09:14] LABS: URINE APPEARANCE CLEAR; URINE BILIRUBIN NEGATIVE (NEGATIVE); URINE BLOOD 1+ (NEGATIVE); URINE COLOR STRAW; URINE GLUCOSE (UA) 1+ (NEGATIVE); URINE KETONE NEGATIVE (NEGATIVE); URINE LEUK ESTERASE NEGATIVE (NEGATIVE); URINE NITRITE NEGATIVE (NEGATIVE); URINE UROBILINOGEN NEGATIVE mg/dL (0.2-1.0)
[2017-06-01 09:26] LABS: URINE PROTEIN 2+ (NEGATIVE)
[2017-06-01 10:04] LABS: EPI CELLS RARE /HPF (FEW); URINE HYALINE CAST 1 /lpf; URINE MUCUS RARE
[2017-06-01 11:20] LABS: URINE CREATININE 23.9 mg/dL (20-370)
[2017-06-01] MEDS ORDERED: HEPARIN NA (PORCINE) 5,000 UNITS/ML 1ML VIAL ONE (11:45)
[2017-06-01] MEDS: CLOPIDOGREL BISULFATE 75 MG TABLET (FP) PO SCH (12:00)
[2017-06-01] MEDS: ASPIRIN 81 MG CHEWABLE TABLETS PO SCH (12:00)
[2017-06-01] MEDS: CARVEDILOL 12.5 MG TABLET (FP) PO SCH ×2 (12:00→21:43)
[2017-06-01] MEDS: amLODIPine BESYLATE 5 MG TABLET (FP) PO SCH (12:00)
[2017-06-01] MEDS: INSULIN SLIDING SCALE (NOVOLOG) 1 VIAL SQ SCH ×3 (12:01→21:44)
[2017-06-01] MEDS ORDERED: INSULIN REGULAR HUMAN 100 UNITS/ML *VIAL ONE (12:10)
--- NOTE | 2017-06-01 12:36 | CONSULT ---
Consult Consult Specialty:: Nephrology Referred by:: JAMISON Rainey Reason for Consultation:: VANDA on CKD - History of Present Illness Chief Complaint: "My legs are swollen" History of Present Illness: 56M PMH of HTN HLD DM CKD anemia heart failure with preserved ejection fraction PAD s/p RLE bypass 01/2017, LLE bypass 2013, CAD s/p PCI, COPD CVA 8 years ago with residual left upper and lower extremity weakness who presented to the ED with a chief complaint of lower extremity edema. The patient states his legs are usually swollen at baseline but recently the swelling has significantly increased. He also complains of erythema of the right inner thigh and LLE. He also complains of "mild" chest pain. The patient also reports leg pain that is in both legs and has been on and off since his bypass 01/2017. Per the patient he states he has had cellulitis of the lower extremities in the past. He endorses 3 episodes of NBNB vomiting. Patient has a history of CKD and upon reviewing his previous labs the last creatinine was 1.8 in March of 2017. We were asked to evaluate this patient for acute on chronic kidney injury creatinine now 2.7. Patient endorses he is not always compliant with his lasix. He also ran out of [employer]. 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, Peripheral Neuropathy, Other (arterial insufficiency s/p left fem -tibial bypass- 2013, rt fem-pop bypass- 2016) Cardio/Vascular: Yes: CAD, CHF, HTN, Hyperlipdemia, Other (PAD) Pulmonary: Yes: COPD Renal/: Yes: Renal Inusuff Psych: Yes: Anxiety Endocrine: Yes: Diabetes Mellitus - Past Surgical History Past Surgical History: Yes: Bypass, Stent - Alcohol/Substance Use Hx Alcohol Use: No History of Substance Use: reports: None - Smoking History Smoking history: Current some day smoker Have you smoked in the past 12 months: Yes Aproximately how many cigarettes per day: 10 If you are a former smoker, when did you quit?: 09/2016 - Social History ADL: Independent 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 History of Recent Travel: No Home Medications - Allergies Allergies/Adverse Reactions: Allergies Allergy/AdvReac Type Severity Reaction Status Date / Time No Known Drug Allergies Allergy Verified 06/01/17 02:52 - Home Medications Home Medications: Ambulatory Orders Glipizide [Glipizide ER] 5 mg PO DAILY 10/15/13 Amlodipine Besylate [Norvasc -] 5 mg PO DAILY 09/17/16 Clopidogrel Bisulfate [Plavix -] 75 mg PO DAILY 10/17/16 Carvedilol [Coreg -] 12.5 mg PO BID #60 tablet 10/24/16 Acetaminophen [Tylenol .Regular Strength -] 325 mg PO Q4H PRN #0 tablet Aspirin [ASA -] 81 mg PO DAILY tab.chew 02/25/17 Tamsulosin HCl [Flomax -] 0.8 mg PO DAILY@0830 #30 tab 02/25/17 Furosemide [Lasix -] 40 mg PO BID #90 tablet 04/03/17 Family Disease History - Family Disease History Family Disease History: Other: Father ( 62: lung ca), Mother ( 72: colon cancer), Sister (1, healthy) Review of Systems - Review of Systems Constitutional: reports: Malaise, Weakness Eyes: reports: Floaters, Other (ptosis) Neck: reports: No Symptoms Cardiovascular: reports: Chest Pain. denies: Palpitations, Shortness of Breath Respiratory: reports: No Symptoms Gastrointestinal: reports: Nausea, Vomiting Genitourinary: reports: Frequency (increased) Musculoskeletal: reports: Back Pain Integumentary: reports: Erythema (RLE LLE) Hematology/Lymphatic: reports: No Symptoms Physical Exam Vital Signs: Vital Signs Temperature 98.7 F 06/01/17 05:20 Pulse Rate 98 H 06/01/17 06:05 Respiratory Rate 16 06/01/17 06:05 Blood Pressure 148/79 06/01/17 06:05 O2 Sat by Pulse Oximetry (%) 96 06/01/17 06:05 Constitutional: Yes: No Distress, Poor Hygeine Eyes: Yes: Other (conjunctival pallor) HENT: Yes: Atraumatic Neck: Yes: Supple Cardiovascular: Yes: Regular Rate and Rhythm, Other (no appreciable JVD but there is hepatojugular reflux). No: JVD, Murmur Respiratory: Yes: CTA Bilaterally Gastrointestinal: Yes: Normal Bowel Sounds, Soft. No: Distention Renal/: Yes: Other (clear yellow urine in urinal) Edema: Yes Edema: LLE: 3+, RLE: 3+ Integumentary: Yes: Other (RLE inner thigh with warmth erythema and induration LLE with erythema above the ankle and a [id number] ulcer with surrounding erythema without drainage-patient can not remember hwo he got it) Neurological: Yes: Alert, Oriented, Other (tired appearing) Labs: CBC, BMP 06/01/17 03:00 06/01/17 04:27 Imaging - Results Chest X-ray: Report Reviewed, Image Reviewed X-ray: Report Reviewed, Image Reviewed (hand) Ultrasound: Report Reviewed, Image Reviewed EKG: Image Reviewed Assessment/Plan 56M with multiple medical problems presents to the ED with acute exacerbation of diastolic CHF, lower extremity swelling and erythema, and VANDA on CKD. Impression: VANDA on CKD history of CKD lower extremity cellulitis HTN HLD HLD DM Peripheral arterial disease heart failure with preserved ejection fraction acute exacerbation of diastolic CHF CAD s/p PCI history of CVA Atypical chest pain Plan: Admit to telemetry Strict I/Os-patient instructed to collect urine in urinal Lasix for diuresis consider 40mg IV BID consider cardiology consult-patient sees Dr. Brasher trend renal function-Cr increase likely due to poor perfusion from CHF exacerbation Renal ultrasound noted urine electrolytes noted continue plavix for PAD and CAD continue aspirin continue coreg continue norvasc ISS DVT PPx renally dose all meds avoid nephrotix drugs control BP control blood sugars trend troponins Will follow Thank you for this consultative opportunity Case discussed with attending Dr. Garcia
--- NOTE | 2017-06-01 14:35 | PN ---
Teaching Attending Note Name of Resident: Rick Conley (Nephrology) ATTENDING PHYSICIAN STATEMENT I saw and evaluated the patient. I reviewed the resident's note and discussed the case with the resident. I agree with the resident's findings and plan as documented. SUBJECTIVE: This is a 56 year old gentleman with PMhx of CKD (baseline Cr 1.4-1.8), Hypertension, DM, HLD, Diastolic HF, PVD s/p bypass, CAD, COPD, CVA who presented with lower extremity swelling and redness and noted to have Cr of 2.7. Pt reports that he had not been complaint with his Lasix at home. Denies any NSAID use. No recent Abx use. No contrast exposure. No flank pain, hematuria , dysuria. No N/V/D. No SOB or chest pain. PMhx: As above Allergies: NKDA Family Hx: NC social Hx: Former smoker ROS: as per HPI, all other pertinent ros negative Home Medications Medication Instructions Recorded Glipizide [Glipizide ER] 5 mg PO DAILY 10/15/13 Amlodipine Besylate [Norvasc -] 5 mg PO DAILY 09/17/16 Clopidogrel Bisulfate [Plavix -] 75 mg PO DAILY 10/17/16 Carvedilol [Coreg -] 12.5 mg PO BID #60 tablet 10/24/16 Acetaminophen [Tylenol .Regular 325 mg PO Q4H PRN #0 tablet 02/25/17 Strength -] Aspirin [ASA -] 81 mg PO DAILY tab.chew 02/25/17 Tamsulosin HCl [Flomax -] 0.8 mg PO DAILY@0830 #30 tab 02/25/17 Furosemide [Lasix -] 40 mg PO BID #90 tablet 04/03/17 OBJECTIVE: Vital Signs Temperature 98.3 F 06/01/17 12:36 Pulse Rate 94 H 06/01/17 12:36 Respiratory Rate 20 06/01/17 12:36 Blood Pressure 151/70 06/01/17 12:36 O2 Sat by Pulse Oximetry (%) 99 06/01/17 12:36 NAD awake and alert MMM Neck Supple, No JVD RRR CTA soft, obese, NT/ND Abd 2+ edema in LE, + erythema on LLE no bladder distension CBC, BMP 06/01/17 03:00 06/01/17 04:27 Laboratory Tests 02/16/17 06/01/17 06/01/17 09:20 03:00 06:30 BUN 53 H D Creatinine 2.7 H D Calcium 7.9 L Phosphorus 3.8 Magnesium 2.4 Urine Protein Ur Random Sodium Ur Random Potassium Ur Random Chloride Urine Creatinine Stool Occult Blood Negative 06/01/17 06/01/17 08:50 08:50 BUN Creatinine Calcium Phosphorus Magnesium Urine Protein 2+ H Ur Random Sodium 110 Ur Random Potassium 15.9 Ur Random Chloride 119 Urine Creatinine 23.9 Stool Occult Blood Current Medications Amlodipine Besylate (Norvasc -) 5 mg PO DAILY [facility] Last Admin: 06/01/17 12:00 Dose: 5 mg Aspirin (Asa -) 81 mg PO DAILY [facility] Last Admin: 06/01/17 12:00 Dose: 81 mg Carvedilol (Coreg -) 12.5 mg PO BID [facility] Last Admin: 06/01/17 12:00 Dose: 12.5 mg Clopidogrel Bisulfate (Plavix -) 75 mg PO DAILY [facility] Last Admin: 06/01/17 12:00 Dose: 75 mg Heparin Sodium (Porcine) (Heparin -) 5,000 unit SQ TID [facility] Insulin Aspart (Novolog Vial Sliding Scale -) 1 vial SQ ACHS [facility] PRN Reason: Protocol Last Admin: 06/01/17 12:01 Dose: 2 unit ASSESSMENT AND PLAN: 56 year old gentleman with PMhx of CKD (baseline Cr 1.4-1.8), Hypertension, DM, HLD, Diastolic HF, PVD s/p bypass, CAD, COPD, CVA who presented with lower extremity swelling and redness and noted to have Cr of 2.7. #Acute on Chronic Renal Insufficiency differntial includes renal hypoprofusion in setting of volume overload/CHF vs. intravascular volume depletion in setting of infection Urine studies show high urine Na but unclear if pt was taking lasix check FeUrea and UPCR Us of kidney showed no obstruction Given evidence of volume overload and preserved BP will continue IV duresis and monitor clinical response no acute indication for BOOT TURNER dose all meds for CrCl less then 20 avoid MICHAEL/ARB, NSAIDs, IV contrast #LE cellulitis/Edema continue Lasix Abx as per primary consider cardiology consult #Anemia with normal MCV check iron studies stool occult blood is negative no acute indication for transfusion at this time #Hypertension continue amlodipine ? contributor to LE edema monitor clinical status Thank you Will follow Prakash Garcia DO
[2017-06-01] MEDS: HEPARIN NA (PORCINE) 5,000 UNITS/ML 1ML VIAL SQ SCH ×2 (15:00→21:43)
--- NOTE | 2017-06-01 16:40 | PN ---
Progress Note (short form) - Note Progress Note: ID Consult dictated Bilateral LE cellulitis Acute on chronic renal failure PVD S/P LE bypass IDDM Pending blood c/s, empiric vanco/cefepime, adjusted for renal failure
[2017-06-01] MEDS ORDERED: CEFEPIME HCL 1 GM VIAL (RESTRICTED TO ID) IVPB SCH (16:45)
[2017-06-01] MEDS: CEFEPIME HCL/D5W 1 GM/50 ML BAG IVPB SCH (18:34)
--- NOTE | 2017-06-01 18:54 | CONS ---
DATE OF CONSULTATION: DATE OF DICTATION: 06/01/2017 INFECTIOUS DISEASE CONSULTATION HISTORY OF PRESENT ILLNESS: A 56-year-old male with multiple comorbidities including insulin dependent diabetes mellitus, chronic kidney disease, peripheral vascular disease, evaluated for cellulitis of the lower extremities. He presented to the hospital on June 01, 2017, with complaints of chest pain. He also complained of lower extremity swelling. He was noted to have erythema along the right medial thigh at the area of a previous vascular bypass graft as well as erythema involving the distal left lower extremity. He denies any traumatic injury, no reported insect or animal bites or scratches. On review of his chart, he has had recent hospital admissions, was hospitalized last year for cellulitis of the lower extremities. Cultures have been positive for coagulase negative staphylococcus as well as staphylococcus aureus. He denies any associated fever or chills. PAST MEDICAL HISTORY: Positive for insulin dependent diabetes mellitus, stroke, coronary artery disease, status post coronary artery stent, congestive heart failure, peripheral vascular disease. PAST SURGICAL HISTORY: Status post right lower extremity bypass in January of 2017. ALLERGIES: No known allergies. MEDICATION: Include glipizide, Norvasc, Plavix, Coreg, aspirin, Flomax, Lasix. SOCIAL HISTORY: Positive for tobacco. His HIV status is not known. SYSTEMS REVIEW: Neurologic: Positive for stroke in the past. No seizure activity or loss of consciousness. Cardiac: As per HPI. Respiratory: Negative cough or sputum production. Gastrointestinal: Negative vomiting or diarrhea. Genitourinary: Positive for chronic kidney disease. LABORATORY DATA: White blood cell count 10.0, hematocrit 26.5, platelet count 202, BUN 53, creatinine 2.7. Urinalysis less than 1 white cell. Blood cultures pending. Chest x-ray shows right basilar atelectasis. Sonogram of the lower extremity shows some fluid collection adjacent to a right lower extremity femoral-popliteal bypass. Sonogram of the left upper extremity negative for DVT. PHYSICAL EXAMINATION: General: He is chronically ill appearing, lethargic. Vital signs: Temperature 97.9, blood pressure 124/62, pulse 85 regular, respirations 20 per minute. HEENT: Sclerae anicteric. Cardiovascular: Heart sounds S1, S2. Respiratory: Lungs diminished breath sounds at the bases bilaterally. Abdomen: Soft. No tenderness elicited. Extremities: Bilateral lower extremity edema. There is an area of erythema and warmth present on the right medial thigh over a healed surgical scar. No crepitus or fluctuance. No lymphangitic streaking. There is another area of erythema involving the distal left lower extremity which is warm to touch with no crepitus or lymphangitic streaking. IMPRESSION: 1. Bilateral lower extremity cellulitis. 2. [id number] renal failure. 3. Peripheral vascular disease status post lower extremity bypass. 4. Insulin dependent diabetes mellitus. 5. Chest pain syndrome. Pending sepsis workup. Empiric antibiotic coverage with vancomycin and cefepime adjusted for renal failure. Elevation. Analgesics. Diuretic therapy. Will follow. Thank you for the kind referral. CYNDI BEE M.D. [id number]
[2017-06-02] MEDS: HEPARIN NA (PORCINE) 5,000 UNITS/ML 1ML VIAL SQ SCH ×3 (06:47→21:10)
[2017-06-02] MEDS: INSULIN SLIDING SCALE (NOVOLOG) 1 VIAL SQ SCH ×4 (06:47→21:10)
[2017-06-02 07:10] LABS: BASO % 0.7 % (0-2.0); EOS % 3.5 % (0-4.5); HEMATOCRIT 24.1 % (35.4-49); HEMOGLOBIN 7.9 GM/dL (11.7-16.9); LYMPH % 10.1 % (8-40); MCH 31.2 pg (25.7-33.7); MCHC 32.8 g/dl (32.0-35.9); MEAN CELL VOLUME 95.1 fl (80-96); MEAN PLT VOLUME 8.7 fl (7.5-11.1); MONO % 7.3 % (3.8-10.2); NEUT % 78.4 % (42.8-82.8); PLATELET COUNT 176 K/MM3 (134-434); RBC 2.54 M/mm3 (4.00-5.60); RDW 14.6 % (11.9-15.9); WHITE BLOOD COUNT 9.7 K/mm3 (4.0-10.0)
[2017-06-02 07:25] LABS: CHLORIDE 105 mmol/L (98-107); SODIUM 137 mmol/L (136-145)
[2017-06-02 07:42] LABS: ALBUMIN 1.9 g/dl (3.4-5.0); ALK PHOS 67 U/L (45-117); ANION GAP 7 (8-16); BILIRUBIN,TOTAL 0.3 mg/dL (0.2-1.0); BLOOD UREA NITROGEN 58 mg/dL (7-18); CALCIUM 7.3 mg/dL (8.5-10.1); CO2 25 mmol/L (21-32); CREATININE 2.9 mg/dL (0.7-1.3); GLUCOSE,RANDOM 116 mg/dL (74-106); MAGNESIUM 1.7 mg/dL (1.8-2.4); PHOSPHOROUS 4.6 mg/dL (2.5-4.9); SGOT/AST 8 U/L (15-37); SGPT/ALT 12 U/L (12-78); TOT PROT 5.2 g/dl (6.4-8.2)
--- NOTE | 2017-06-02 09:10 | PN ---
Progress Note, Physician Chief Complaint: 56 year old man with a history of Acute on chronic diastolic CHF, Severe PAD s/ p RLE bypass in January 2017, CAD s/p PCI, Acute on chronic renal failure, IDDM , Prior CVA, Anemia recently admitted with acute on chronic diastolic CHF and cellulitis now readmitted with worsening lower extremity edema and LLE erythema concerning for recurrent cellulitis, seen by ID and started on broad spectrum antibiotics. He also c/o of GONG (chronic) and an episode of substernal chest pain that occurred while walking several days ago. Of note, patient had a negative nuclear stress test (Persantine) September 2016 prior to his LE bypass. Last echo done 03/31/17 showed diastolic dysfx, normal EF and no sig valve disease. PMH: Acute on chronic diastolic CHF Severe PAD s/p RLE bypass in January 2017 CAD s/p PCI Acute on chronic renal failure Chronic diastolic CHF IDDM Prior CVA Anemia - Current Medication List Current Medications: Active Medications Amlodipine Besylate (Norvasc -) 5 mg PO DAILY [facility] Last Admin: 06/01/17 12:00 Dose: 5 mg Aspirin (Asa -) 81 mg PO DAILY [facility] Last Admin: 06/01/17 12:00 Dose: 81 mg Carvedilol (Coreg -) 12.5 mg PO BID [facility] Last Admin: 06/01/17 21:43 Dose: 12.5 mg Clopidogrel Bisulfate (Plavix -) 75 mg PO DAILY [facility] Last Admin: 06/01/17 12:00 Dose: 75 mg Heparin Sodium (Porcine) (Heparin -) 5,000 unit SQ TID [facility] Last Admin: 06/02/17 06:47 Dose: 5,000 unit Cefepime HCl (Maxipime 1 Gm Premix Ivpb) 1 gm in 50 mls @ 100 mls/hr IVPB DAILY [facility] Last Admin: 06/01/17 18:34 Dose: 100 mls/hr Insulin Aspart (Novolog Vial Sliding Scale -) 1 vial SQ ACHS [facility] PRN Reason: Protocol Last Admin: 06/02/17 06:47 Dose: Not Given - Objective Vital Signs: Vital Signs Temperature 98.7 F 06/02/17 06:00 Pulse Rate 88 06/02/17 06:00 Respiratory Rate 20 06/02/17 06:00 Blood Pressure 129/59 06/02/17 06:00 O2 Sat by Pulse Oximetry (%) 98 06/01/17 21:00 Constitutional: Yes: No Distress Eyes: Yes: PERRL Cardiovascular: Yes: Regular Rate and Rhythm Respiratory: Yes: Other (rales at right base) Gastrointestinal: Yes: Soft, Abdomen, Obese Edema: Yes Edema: LLE: 2+, RLE: 2+ Neurological: Yes: Alert, Oriented Labs: CBC, BMP 06/02/17 05:35 06/02/17 05:35 INR, PTT INR 1.20 (0.82-1.09) H 06/01/17 05:30 - ....Imaging Chest X-ray: Image Reviewed EKG: Pending (not in chart to review) Assessment/Plan LE cellulitis Acute on chronic diastolic CHF Severe PAD s/p RLE bypass in January 2017 CAD s/p PCI Acute on chronic renal failure. possibly triggered by decompensated diastolic CHF IDDM Prior CVA Anemia REC: Lasix 40mg IV x 1 dose today. Re-assess tomorrow: pending clinical response and creatinine trend, may need to start standing diuretics for several days. Check ECG. Trend cardiac enzymes. With recent echo and nuclear stress showing no ischemia, plan to manage his atypical chest pain conservatively/medically.
[2017-06-02] MEDS ORDERED: FUROSEMIDE 40 MG/4 ML INJECTABLE VIAL IVPUSH ONE (09:15)
--- NOTE | 2017-06-02 10:08 | PN ---
Progress Note (short form) - Note Progress Note: pt seen/ examined chart reviewed well known to me from recent admissions not compliant pt overall feels better denies cp. Vital Signs Temp 98.7 F 06/02/17 06:00 Pulse 88 06/02/17 06:00 Resp 20 06/02/17 06:00 BP 129/59 06/02/17 06:00 Pulse Ox 98 06/01/17 21:00 Intake & Output 06/01/17 06/01/17 06/02/17 11:59 23:59 11:59 Intake Total 410 210 Output Total 1100 400 Balance -690 -190 Weight 198 lb 198 lb Intake: IV 10 10 s/l 10 10 Oral 400 200 Output: Urine 1100 400 Void 1100 400 Other: Voiding Method Urinal Urinal Urinal Bowel Movement Yes No # Bowel Movements 1 Height 5 ft 4 in 5 ft 4 in Body Mass Index (BMI) 34.0 34.0 Weight Measurement Method Stated by Patient Active Medications Amlodipine Besylate (Norvasc -) 5 mg PO DAILY [facility] Last Admin: 06/01/17 12:00 Dose: 5 mg Aspirin (Asa -) 81 mg PO DAILY [facility] Last Admin: 06/01/17 12:00 Dose: 81 mg Carvedilol (Coreg -) 12.5 mg PO BID [facility] Last Admin: 06/01/17 21:43 Dose: 12.5 mg Clopidogrel Bisulfate (Plavix -) 75 mg PO DAILY [facility] Last Admin: 06/01/17 12:00 Dose: 75 mg Heparin Sodium (Porcine) (Heparin -) 5,000 unit SQ TID [facility] Last Admin: 06/02/17 06:47 Dose: 5,000 unit Cefepime HCl (Maxipime 1 Gm Premix Ivpb) 1 gm in 50 mls @ 100 mls/hr IVPB DAILY [facility] Last Admin: 06/01/17 18:34 Dose: 100 mls/hr Insulin Aspart (Novolog Vial Sliding Scale -) 1 vial SQ ACHS [facility] PRN Reason: Protocol Last Admin: 06/02/17 06:47 Dose: Not Given CBC, BMP 06/02/17 05:35 06/02/17 05:35 Microbiology 06/01/17 05:30 Blood Culture - Preliminary Blood - Peripheral Venous NO GROWTH OBTAINED AFTER 24 HOURS, INCUBATION TO CONTINUE FOR 4 DAYS. 06/01/17 05:30 Blood Culture - Preliminary Blood - Peripheral Venous NO GROWTH OBTAINED AFTER 24 HOURS, INCUBATION TO CONTINUE FOR 4 DAYS. Abnormal Lab Results 06/02/17 06/02/17 05:35 05:35 RBC 2.54 L Hgb 7.9 L D Hct 24.1 L Anion Gap 7 L BUN 58 H Creatinine 2.9 H Random Glucose 116 H D Calcium 7.3 L Magnesium 1.7 L D AST 8 L Total Protein 5.[address] Head- Reviewed. Physical Exam Constitutional: Yes: No Distress, sitting in chair. Eyes: Yes: Other (conjunctival pallor). HEENT: Yes: throat clear. Neck: Yes: Supple/ no jvd. Cardiovascular: Yes: Regular Rate and Rhythm, Murmur Respiratory: Yes: Clear to Auscultation. Gastrointestinal: Yes:Soft/ non tender. Edema: Yes Integumentary: Yes: Other (RLE inner thigh with warmth erythema and induration LLE with erythema above the ankle and a [id number] ulcer with surrounding erythema without drainage- Neurological: Yes: Alert, awake. Assessment/Plan LE cellulitis Acute on chronic diastolic CHF Severe PAD s/p RLE bypass in January 2017 CAD s/p PCI Acute on chronic renal failure. IDDM Prior CVA Anemia Smoker Clinically stable/ better Continue Abx F/u cultures Monitor cbc/ lytes All consults noted Vascular / Neurology consults Pending . will follow .
[2017-06-02] MEDS ORDERED: PT OWN MED DRAWER 7, Y5N ONE (10:32)
[2017-06-02] MEDS: CEFEPIME HCL/D5W 1 GM/50 ML BAG IVPB SCH (10:35)
[2017-06-02] MEDS: CARVEDILOL 12.5 MG TABLET (FP) PO SCH ×2 (10:35→21:10)
[2017-06-02] MEDS: ASPIRIN 81 MG CHEWABLE TABLETS PO SCH (10:35)
[2017-06-02] MEDS: CLOPIDOGREL BISULFATE 75 MG TABLET (FP) PO SCH (10:35)
[2017-06-02] MEDS: amLODIPine BESYLATE 5 MG TABLET (FP) PO SCH (10:35)
[2017-06-02] MEDS ORDERED: INSULIN (NOVOLOG) ASPART 100 UNITS/ML 10ML VIAL ONE ×2 (11:38→21:04)
--- NOTE | 2017-06-02 11:53 | PN ---
Progress Note (short form) - Note Progress Note: Vascular surgery: 56 yo male admitted yesterday with CP and lower ext swelling/erythema. He has a history of insulin dependant diabetes, PVD, CKD. Currently he states that he has some tenderness and redness to his right thigh and Left lower ext. He is also complaining of his left hand cramping.medial Vital Signs Period Temp Pulse Resp BP Sys/Fuentes Pulse Ox Last 24 Hr 97.8 F-99.4 F 82-94 18-22 112-151/55-70 93-99 GEN: appears comfortable, NAD Right leg: medial aspect of his thigh with mild erythema and tenderness to touch. Incision healed well and without drainage noted. No bogginess, some fullness/induration noted. +2 DP pulse Left leg: mild erythema to above the ankle and mid calf, circumfrential. 1/2 x 1 /2 cm superficial wound drainage scant serous drainage. LLE tender to touch over erythema and greater erthema than the right. +2 DP pulse Left Upper ext with +2 radial pulse, warm. LUE US: no evidnece of DVT RLE US: patent graft, 7.7 x 2.5cm collection distal thigh anterior to the graft A/P: 56 yo male with CHF, PVD s/p RLE bypass in 02/14 US study reveals graft to be patent, small collection over distal thigh S/w Dr. Humphery and ordered US aspiration of collection for drainage and culture Continue IV abx as per ID <Piedad Moreau - Last Filed: 06/02/17 12:23> - Note Progress Note: Patient seen in ER Right distal thigh swelling and redness in skin near healed incision from recent bypass. No fever, no elevation WBC Will check Ultrasound for collection. <Ze Humphrey - Last Filed: 06/03/17 12:10>
--- NOTE | 2017-06-02 13:45 | PN ---
Progress Note, Physician History of Present Illness: Awake, alert No c/o leg pain at present Afebrile WBC WNL Doppler revealed fluid collection around R thigh graft - Current Medication List Current Medications: Active Medications Amlodipine Besylate (Norvasc -) 5 mg PO DAILY [facility] Last Admin: 06/02/17 10:35 Dose: 5 mg Aspirin (Asa -) 81 mg PO DAILY [facility] Last Admin: 06/02/17 10:35 Dose: 81 mg Carvedilol (Coreg -) 12.5 mg PO BID [facility] Last Admin: 06/02/17 10:35 Dose: 12.5 mg Clopidogrel Bisulfate (Plavix -) 75 mg PO DAILY [facility] Last Admin: 06/02/17 10:35 Dose: 75 mg Heparin Sodium (Porcine) (Heparin -) 5,000 unit SQ TID [facility] Last Admin: 06/02/17 06:47 Dose: 5,000 unit Cefepime HCl (Maxipime 1 Gm Premix Ivpb) 1 gm in 50 mls @ 100 mls/hr IVPB DAILY [facility] Last Admin: 06/02/17 10:35 Dose: 100 mls/hr Insulin Aspart (Novolog Vial Sliding Scale -) 1 vial SQ ACHS [facility] PRN Reason: Protocol Last Admin: 06/02/17 11:45 Dose: 4 unit - Objective Vital Signs: Vital Signs Temperature 98.7 F 06/02/17 06:00 Pulse Rate 88 06/02/17 06:00 Respiratory Rate 20 06/02/17 06:00 Blood Pressure 129/59 06/02/17 06:00 O2 Sat by Pulse Oximetry (%) 98 06/01/17 21:00 Constitutional: Yes: No Distress Eyes: Yes: Conjunctiva Clear Cardiovascular: Yes: Regular Rate and Rhythm, S1, S2 Respiratory: Yes: CTA Bilaterally Gastrointestinal: Yes: Normal Bowel Sounds, Soft. No: Tenderness Extremities: Yes: Other (decreased R medial thigh erythema/ warmth. Distal L LE remains red, warm.) Labs: CBC, BMP 06/02/17 05:35 06/02/17 05:35 INR, PTT INR 1.20 (0.82-1.09) H 06/01/17 05:30 Assessment/Plan Bilateral LE cellulitis Renal failure Peripheral vascular disease Arvind-graft fluid collection ? seroma ? abscess For percutaneous aspiration of arvind-graft collection Redose vanco/ cefepime after aspiration of fluid for c/s
[2017-06-02] MEDS ORDERED: MAGNESIUM SULF 50% (8.12 MEQ/2 ML-1 GM VIAL) IVPB ONE (13:53)
[2017-06-02] MEDS ORDERED: MAGNESIUM 1GM/D5W - 1 GM/100 ML IVPB IVPB ONE (14:15)
--- NOTE | 2017-06-02 14:54 | PN ---
Progress Note (short form) - Note Progress Note: Renal follow up for VANDA Pt seen and examined at the bedside pt without any acute complaints s/p drain placement in right thigh no fever, sob, chest pain making urine Vital Signs Temperature 98.7 F 06/02/17 06:00 Pulse Rate 88 06/02/17 06:00 Respiratory Rate 20 06/02/17 06:00 Blood Pressure 129/59 06/02/17 06:00 O2 Sat by Pulse Oximetry (%) 98 06/01/17 21:00 Intake & Output 05/30/17 05/31/17 06/01/17 06/02/17 23:59 23:59 23:59 23:59 Intake Total 410 210 Output Total 1100 400 Balance -690 -190 Weight 89.811 kg NAD awake and alert left leg erythema improving + edema CBC, BMP 06/02/17 05:35 06/02/17 05:35 Current Medications Amlodipine Besylate (Norvasc -) 5 mg PO DAILY [facility] Last Admin: 06/02/17 10:35 Dose: 5 mg Aspirin (Asa -) 81 mg PO DAILY [facility] Last Admin: 06/02/17 10:35 Dose: 81 mg Carvedilol (Coreg -) 12.5 mg PO BID [facility] Last Admin: 06/02/17 10:35 Dose: 12.5 mg Clopidogrel Bisulfate (Plavix -) 75 mg PO DAILY [facility] Last Admin: 06/02/17 10:35 Dose: 75 mg Heparin Sodium (Porcine) (Heparin -) 5,000 unit SQ TID [facility] Last Admin: 06/02/17 06:47 Dose: 5,000 unit Cefepime HCl (Maxipime 1 Gm Premix Ivpb) 1 gm in 50 mls @ 100 mls/hr IVPB DAILY [facility] Last Admin: 06/02/17 10:35 Dose: 100 mls/hr Magnesium Sulfate/Dextrose (Magnesium 1gm/D5w -) 1 gm in 100 mls @ 100 mls/hr IVPB ONCE ONE Stop: 06/02/17 15:14 Insulin Aspart (Novolog Vial Sliding Scale -) 1 vial SQ ACHS [facility] PRN Reason: Protocol Last Admin: 06/02/17 11:45 Dose: 4 unit 56 year old gentleman with PMhx of CKD (baseline Cr 1.4-1.8), Hypertension, DM, HLD, Diastolic HF, PVD s/p bypass, CAD, COPD, CVA who presented with lower extremity swelling and redness and noted to have Cr of 2.7. #Acute on Chronic Renal Insufficiency FeUrea was 29% indicaitng preserved tubular function continue Lasix as needed for management of volume overload and CHF Trend BUN/cr daily no indication for [employer] at this time #LE cellulitis/Edema/Collection continue abx as per ID drain placed today Prakash Garcia DO
--- NOTE | 2017-06-02 17:55 | CONSULT ---
Consult - text type - Consultation Consultation Note: NEUROLOGY CONSULTATION is greatly appreciated: This 56 yo RH s man lives with his partner and her family. PMH sig for HTN, DM, Chol, ASHD, S/P stents, CHF, RI, smoking and PVD s/p Fem- Pop Bypass Right leg. Maintained on glypizide, amlodipine, clopidogrel, carvedilol, furosamide and tamsulosin. S/P Right CVA (2005) with chronic left hemiparesis. Walks with walker[place] Walk takes about 25 mins. Chronic b/l leg pains since the stroke. Now admitted with chest pain, neck pain and increased right leg pain and swelling. CT of head (reviewed) reveals chronic right frontal and left occipital CVA's wit encephalomalacia. JOSE: Obese. Left carotid bruit. Cor Reg. Right leg 3+ edema, cellulitic. NEURO: Withdrawn, depressed. Speech sparse but fluent. Right visual fiel cut. Mild left facial . Gag OK Left drift. Left spastic hemiparesis with brisk reflexes except absent left AJ. Left Babinski. Decreased ERICH's L>>>R Labored gait with left circumduction. IMP: S/P Right CVA with chronic left hemiparesi Left carotic bruit with left occipetal CVA R/O cervical myelopathy Left S1 radiculopathy. SUGGEST: Carotid duplex doppler. MRI scans of the cervical and LS spines (both C-) PT eval and Rx for gait. Continue clopidogrel for now. Than k you very much, Cortez Castillo MD
[2017-06-03] MEDS ORDERED: INSULIN (NOVOLOG) ASPART 100 UNITS/ML 10ML VIAL ONE (05:57)
[2017-06-03] MEDS: INSULIN SLIDING SCALE (NOVOLOG) 1 VIAL SQ SCH ×4 (06:00→21:38)
[2017-06-03] MEDS: HEPARIN NA (PORCINE) 5,000 UNITS/ML 1ML VIAL SQ SCH ×3 (06:00→21:20)
[2017-06-03 07:56] LABS: ANION GAP 8 (8-16); BLOOD UREA NITROGEN 61 mg/dL (7-18); CALCIUM 7.7 mg/dL (8.5-10.1); CHLORIDE 102 mmol/L (98-107); CO2 25 mmol/L (21-32); CREATININE 2.5 mg/dL (0.7-1.3); GLUCOSE,RANDOM 156 mg/dL (74-106); POTASSIUM 4.9 mmol/L (3.5-5.1); SODIUM 135 mmol/L (136-145)
[2017-06-03 08:12] LABS: SERUM IRON SATURATION 12 % (15-55); TOTAL IRON BINDING CAPACITY 166 ug/dL (250-450); UIBC 146 ug/dL (111-343)
--- NOTE | 2017-06-03 09:15 | PN ---
Progress Note, Physician Chief Complaint: feeling better; creatinine improved after Lasix yesterday Feels less SOB - Current Medication List Current Medications: Active Medications Amlodipine Besylate (Norvasc -) 5 mg PO DAILY [facility] Last Admin: 06/02/17 10:35 Dose: 5 mg Aspirin (Asa -) 81 mg PO DAILY [facility] Last Admin: 06/02/17 10:35 Dose: 81 mg Carvedilol (Coreg -) 12.5 mg PO BID [facility] Last Admin: 06/02/17 21:10 Dose: 12.5 mg Clopidogrel Bisulfate (Plavix -) 75 mg PO DAILY [facility] Last Admin: 06/02/17 10:35 Dose: 75 mg Heparin Sodium (Porcine) (Heparin -) 5,000 unit SQ TID [facility] Last Admin: 06/03/17 06:00 Dose: 5,000 unit Cefepime HCl (Maxipime 1 Gm Premix Ivpb) 1 gm in 50 mls @ 100 mls/hr IVPB DAILY [facility] Last Admin: 06/02/17 10:35 Dose: 100 mls/hr Insulin Aspart (Novolog Vial Sliding Scale -) 1 vial SQ ACHS [facility] PRN Reason: Protocol Last Admin: 06/03/17 06:00 Dose: 2 unit - Objective Vital Signs: Vital Signs Temperature 98.8 F 06/03/17 06:00 Pulse Rate 77 06/03/17 06:00 Respiratory Rate 18 06/03/17 06:00 Blood Pressure 132/66 06/03/17 06:00 O2 Sat by Pulse Oximetry (%) 95 06/03/17 06:00 Constitutional: Yes: Calm Cardiovascular: Yes: Regular Rate and Rhythm Respiratory: Yes: Other (slight rales at left base.) Gastrointestinal: Yes: Soft Edema: Yes Edema: LLE: 2+, RLE: 2+ Neurological: Yes: Alert ...Motor Strength: WNL Labs: CBC, BMP 06/02/17 05:35 06/03/17 06:15 INR, PTT INR 1.20 (0.82-1.09) H 06/01/17 05:30 Laboratory Tests 06/01/17 06/01/17 06/01/17 05:30 06:30 08:50 WBC Hgb Plt Count INR 1.20 H Sodium Potassium BUN Creatinine Magnesium Urine pH 6.0 Urine Protein 2+ H Stool Occult Blood Negative 06/02/17 06/02/17 06/03/17 05:35 05:35 06:15 WBC 9.7 Hgb 7.9 L D Plt Count 176 INR Sodium 135 L Potassium 5.0 4.9 BUN 58 H 61 H Creatinine 2.9 H 2.5 H Magnesium 1.7 L D Urine pH Urine Protein Stool Occult Blood - ....Imaging EKG: Image Reviewed Assessment/Plan LE cellulitis Acute on chronic diastolic CHF Severe PAD s/p RLE bypass in January 2017 CAD s/p PCI Acute on chronic renal failure. possibly triggered by decompensated diastolic CHF IDDM Prior CVA Anemia REC: IV lasix again today. Re-assess volume status and creatinine today. Trend cardiac enzymes. With recent echo and nuclear stress showing no ischemia, plan to manage his atypical chest pain conservatively/medically.
[2017-06-03] MEDS ORDERED: FUROSEMIDE 40 MG/4 ML INJECTABLE VIAL IVPUSH ONE (09:18)
[2017-06-03] MEDS: ASPIRIN 81 MG CHEWABLE TABLETS PO SCH (10:21)
[2017-06-03] MEDS: amLODIPine BESYLATE 5 MG TABLET (FP) PO SCH (10:21)
[2017-06-03] MEDS: CARVEDILOL 12.5 MG TABLET (FP) PO SCH ×2 (10:21→21:20)
[2017-06-03] MEDS: CLOPIDOGREL BISULFATE 75 MG TABLET (FP) PO SCH (10:22)
[2017-06-03] MEDS: CEFEPIME HCL/D5W 1 GM/50 ML BAG IVPB SCH (10:22)
--- NOTE | 2017-06-03 10:40 | PN ---
Progress Note, Physician History of Present Illness: Awake, alert No c/o leg pain at present S/P percutaneous drainage, R LE arvind-graft collection Afebrile WBC WNL - Current Medication List Current Medications: Active Medications Amlodipine Besylate (Norvasc -) 5 mg PO DAILY [facility] Last Admin: 06/03/17 10:21 Dose: 5 mg Aspirin (Asa -) 81 mg PO DAILY [facility] Last Admin: 06/03/17 10:21 Dose: 81 mg Carvedilol (Coreg -) 12.5 mg PO BID [facility] Last Admin: 06/03/17 10:21 Dose: 12.5 mg Clopidogrel Bisulfate (Plavix -) 75 mg PO DAILY [facility] Last Admin: 06/03/17 10:22 Dose: 75 mg Heparin Sodium (Porcine) (Heparin -) 5,000 unit SQ TID [facility] Last Admin: 06/03/17 06:00 Dose: 5,000 unit Cefepime HCl (Maxipime 1 Gm Premix Ivpb) 1 gm in 50 mls @ 100 mls/hr IVPB DAILY [facility] Last Admin: 06/03/17 10:22 Dose: 100 mls/hr Insulin Aspart (Novolog Vial Sliding Scale -) 1 vial SQ ACHS [facility] PRN Reason: Protocol Last Admin: 06/03/17 06:00 Dose: 2 unit - Objective Vital Signs: Vital Signs Temperature 98.8 F 06/03/17 06:00 Pulse Rate 77 06/03/17 06:00 Respiratory Rate 18 06/03/17 06:00 Blood Pressure 132/66 06/03/17 06:00 O2 Sat by Pulse Oximetry (%) 95 06/03/17 06:00 Constitutional: Yes: No Distress Eyes: Yes: Conjunctiva Clear Cardiovascular: Yes: Regular Rate and Rhythm, S1, S2 Respiratory: Yes: CTA Bilaterally Gastrointestinal: Yes: Normal Bowel Sounds, Soft. No: Tenderness Extremities: Yes: Other (drain in place R thigh- serous fluid decreased L LE erythema/ warmth) Labs: CBC, BMP 06/02/17 05:35 06/03/17 06:15 INR, PTT INR 1.20 (0.82-1.09) H 06/01/17 05:30 Assessment/Plan Bilateral LE cellulitis improved Renal failure Peripheral vascular disease Arvind-graft fluid collection ? seroma ? abscess S/P percutaneous aspiration of arvind-graft collection Redose vanco/ Continue cefepime Await c/s
[2017-06-03] MEDS ORDERED: VANCOMYCIN 1,000 MG in DEXTROSE 5%-WATER - 250 ML IVPB ONE (11:00)
--- NOTE | 2017-06-03 11:08 | PN ---
Progress Note (short form) - Note Progress Note: Renal follow up for VANDA Pt seen and examined at the bedside no acute complaints continues to have discomfort in his legs no sob, chest pain Vital Signs Temperature 98.8 F 06/03/17 06:00 Pulse Rate 77 06/03/17 06:00 Respiratory Rate 18 06/03/17 06:00 Blood Pressure 132/66 06/03/17 06:00 O2 Sat by Pulse Oximetry (%) 95 06/03/17 06:00 Intake & Output 05/31/17 06/01/17 06/02/17 06/03/17 23:59 23:59 23:59 23:59 Intake Total 410 780 250 Output Total 1100 2060 365 Balance -690 -1280 -115 Weight 89.811 kg NAD awake and alert left leg erythema improving + edema CBC, BMP 06/02/17 05:35 06/03/17 06:15 Current Medications Amlodipine Besylate (Norvasc -) 5 mg PO DAILY [facility] Last Admin: 06/03/17 10:21 Dose: 5 mg Aspirin (Asa -) 81 mg PO DAILY [facility] Last Admin: 06/03/17 10:21 Dose: 81 mg Carvedilol (Coreg -) 12.5 mg PO BID [facility] Last Admin: 06/03/17 10:21 Dose: 12.5 mg Clopidogrel Bisulfate (Plavix -) 75 mg PO DAILY [facility] Last Admin: 06/03/17 10:22 Dose: 75 mg Heparin Sodium (Porcine) (Heparin -) 5,000 unit SQ TID [facility] Last Admin: 06/03/17 06:00 Dose: 5,000 unit Cefepime HCl (Maxipime 1 Gm Premix Ivpb) 1 gm in 50 mls @ 100 mls/hr IVPB DAILY [facility] Last Admin: 06/03/17 10:22 Dose: 100 mls/hr Vancomycin HCl 1,000 mg/ (Dextrose) 250 mls @ 200 mls/hr IVPB ONCE ONE Stop: 06/03/17 12:14 Insulin Aspart (Novolog Vial Sliding Scale -) 1 vial SQ ACHS [facility] PRN Reason: Protocol Last Admin: 06/03/17 06:00 Dose: 2 unit 56 year old gentleman with PMhx of CKD (baseline Cr 1.4-1.8), Hypertension, DM, HLD, Diastolic HF, PVD s/p bypass, CAD, COPD, CVA who presented with lower extremity swelling and redness and noted to have Cr of 2.7. #Acute on Chronic Renal Insufficiency FeUrea was 29% indicating preserved tubular function Volume status appears stable received a dose of IV lasix today trend BUN/Cr and electrolytes no indication for [employer] dose all meds for CrCl less then 20 #LE cellulitis/Edema/Collection continue abx as per ID continue drain Prakash Garcia DO
--- NOTE | 2017-06-03 12:16 | PN ---
Progress Note (short form) - Note Progress Note: Leg pain improved, has left shoulder soreness Afebrile Small amount drainage from thigh. Cultures pending. Would continue antibiotics for now.
--- NOTE | 2017-06-03 12:25 | PN ---
Progress Note (short form) - Note Progress Note: comfortable s/p left thigh drainage all f/u , consults noted / appreciated Vital Signs Temp 97.9 F 06/03/17 12:00 Pulse 78 06/03/17 12:00 Resp 18 06/03/17 12:00 BP 130/74 06/03/17 12:00 Pulse Ox 96 06/03/17 12:00 Intake & Output 06/02/17 06/03/17 06/03/17 23:59 11:59 23:59 Intake Total 570 250 240 Output Total 7021 601 1820 Balance -1090 -115 -960 Intake: IV 210 10 RWRIST #22 2/ 210 s/l 10 Oral 360 240 240 Output: Drainage 10 15 Right Thigh 10 15 Urine 9550 491 4632 Void 6518 693 3707 Other: Voiding Method Urinal Toilet # Unmeasured Voids Void 1 Bowel Movement Yes # Bowel Movements 1 Active Medications Amlodipine Besylate (Norvasc -) 5 mg PO DAILY [facility] Last Admin: 06/03/17 10:21 Dose: 5 mg Aspirin (Asa -) 81 mg PO DAILY [facility] Last Admin: 06/03/17 10:21 Dose: 81 mg Carvedilol (Coreg -) 12.5 mg PO BID [facility] Last Admin: 06/03/17 10:21 Dose: 12.5 mg Clopidogrel Bisulfate (Plavix -) 75 mg PO DAILY [facility] Last Admin: 06/03/17 10:22 Dose: 75 mg Heparin Sodium (Porcine) (Heparin -) 5,000 unit SQ TID [facility] Last Admin: 06/03/17 06:00 Dose: 5,000 unit Cefepime HCl (Maxipime 1 Gm Premix Ivpb) 1 gm in 50 mls @ 100 mls/hr IVPB DAILY [facility] Last Admin: 06/03/17 10:22 Dose: 100 mls/hr Insulin Aspart (Novolog Vial Sliding Scale -) 1 vial SQ ACHS [facility] PRN Reason: Protocol Last Admin: 06/03/17 06:00 Dose: 2 unit Microbiology 06/01/17 05:30 Blood Culture - Preliminary Blood - Peripheral Venous NO GROWTH OBTAINED AFTER 48 HOURS, INCUBATION TO CONTINUE FOR 3 DAYS. 06/01/17 05:30 Blood Culture - Preliminary Blood - Peripheral Venous NO GROWTH OBTAINED AFTER 48 HOURS, INCUBATION TO CONTINUE FOR 3 DAYS. CBC, BMP 06/02/17 05:35 06/03/17 06:15 Physical Exam Constitutional: Yes: No Distress, sitting in chair. Eyes: Yes: no icterus HEENT: Yes: throat clear. Neck: Yes: Supple/ no jvd. Cardiovascular: Yes: Regular Rate and Rhythm, Murmur Respiratory: Yes: Clear to Auscultation. Gastrointestinal: Yes:Soft/ non tender. Edema: Yes Integumentary: Yes:drain + left lower extremity dressing + rle Neurological: Yes: Alert, awake. Assessment/Plan better s/p drainage Acute on chronic diastolic CHF Severe PAD s/p RLE bypass in January 2017 CAD s/p PCI Acute on chronic renal failure. IDDM Prior CVA Anemia Smoker Clinically better Continue Abx F/u cultures Monitor cbc/ lytes can d/c tele will follow .
--- NOTE | 2017-06-03 13:35 | EKG ---
Test Reason : Blood Pressure : / mmHG Vent. Rate : 080 BPM Atrial Rate : 080 BPM P-R Int : 172 ms QRS Dur : 128 ms QT Int : 392 ms P-R-T Axes : 058 -60 082 degrees QTc Int : 452 ms NORMAL SINUS RHYTHM RIGHT BUNDLE BRANCH BLOCK LEFT ANTERIOR FASCICULAR BLOCK BIFASCICULAR BLOCK ABNORMAL ECG WHEN COMPARED WITH ECG OF 16-APR-2017 03:31, PREMATURE VENTRICULAR COMPLEXES ARE NO LONGER PRESENT T WAVE INVERSION NOW EVIDENT IN LATERAL LEADS CLINICAL CORRELATION IS RECOMMENDED Confirmed by VALERIANO KIRAN, CHRIS ([id number]) on 06/03/2017 1:34:42 PM Referred By: Confirmed By:CHRIS BAL MD
[2017-06-04] MEDS: HEPARIN NA (PORCINE) 5,000 UNITS/ML 1ML VIAL SQ SCH ×3 (05:40→22:15)
[2017-06-04] MEDS ORDERED: INSULIN (NOVOLOG) ASPART 100 UNITS/ML 10ML VIAL ONE (06:04)
[2017-06-04] MEDS: INSULIN SLIDING SCALE (NOVOLOG) 1 VIAL SQ SCH ×4 (06:13→22:16)
[2017-06-04 06:56] LABS: BASO % 0.6 % (0-2.0); HEMATOCRIT 24.9 % (35.4-49); HEMOGLOBIN 8.2 GM/dL (11.7-16.9); LYMPH % 13.5 % (8-40); MCH 30.9 pg (25.7-33.7); MCHC 32.9 g/dl (32.0-35.9); MEAN PLT VOLUME 9.2 fl (7.5-11.1); MONO % 8.3 % (3.8-10.2); NEUT % 72.6 % (42.8-82.8); PLATELET COUNT 200 K/MM3 (134-434); RBC 2.65 M/mm3 (4.00-5.60); RDW 14.2 % (11.9-15.9); WHITE BLOOD COUNT 6.8 K/mm3 (4.0-10.0)
[2017-06-04 07:49] LABS: CHLORIDE 101 mmol/L (98-107); SODIUM 136 mmol/L (136-145)
[2017-06-04 08:14] LABS: ALBUMIN 2.1 g/dl (3.4-5.0); ALK PHOS 74 U/L (45-117); ANION GAP 11 (8-16); BILIRUBIN,TOTAL 0.2 mg/dL (0.2-1.0); BLOOD UREA NITROGEN 65 mg/dL (7-18); CALCIUM 7.8 mg/dL (8.5-10.1); CO2 24 mmol/L (21-32); CREATININE 2.7 mg/dL (0.7-1.3); GLUCOSE,RANDOM 179 mg/dL (74-106); MAGNESIUM 2.1 mg/dL (1.8-2.4); SGOT/AST 10 U/L (15-37); SGPT/ALT 13 U/L (12-78); TOT PROT 5.8 g/dl (6.4-8.2)
--- NOTE | 2017-06-04 09:26 | PN ---
Progress Note, Physician Chief Complaint: no distress TELE: NSR - Current Medication List Current Medications: Active Medications Amlodipine Besylate (Norvasc -) 5 mg PO DAILY [facility] Last Admin: 06/03/17 10:21 Dose: 5 mg Aspirin (Asa -) 81 mg PO DAILY [facility] Last Admin: 06/03/17 10:21 Dose: 81 mg Carvedilol (Coreg -) 12.5 mg PO BID [facility] Last Admin: 06/03/17 21:20 Dose: 12.5 mg Clopidogrel Bisulfate (Plavix -) 75 mg PO DAILY [facility] Last Admin: 06/03/17 10:22 Dose: 75 mg Heparin Sodium (Porcine) (Heparin -) 5,000 unit SQ TID [facility] Last Admin: 06/04/17 05:40 Dose: 5,000 unit Cefepime HCl (Maxipime 1 Gm Premix Ivpb) 1 gm in 50 mls @ 100 mls/hr IVPB DAILY [facility] Last Admin: 06/03/17 10:22 Dose: 100 mls/hr Insulin Aspart (Novolog Vial Sliding Scale -) 1 vial SQ ACHS [facility] PRN Reason: Protocol Last Admin: 06/04/17 06:13 Dose: 4 unit - Objective Vital Signs: Vital Signs Temperature 98.3 F 06/04/17 05:57 Pulse Rate 83 06/04/17 05:57 Respiratory Rate 19 06/04/17 05:57 Blood Pressure 124/73 06/04/17 05:57 O2 Sat by Pulse Oximetry (%) 95 06/04/17 05:57 Constitutional: Yes: No Distress, Calm Cardiovascular: Yes: Regular Rate and Rhythm Respiratory: Yes: CTA Bilaterally (NO RALES) Gastrointestinal: Yes: Soft, Abdomen, Obese Edema: Yes Edema: LLE: 2+, RLE: 2+ Neurological: Yes: Alert, Oriented Labs: CBC, BMP 06/04/17 06:07 06/04/17 06:07 INR, PTT INR 1.20 (0.82-1.09) H 06/01/17 05:30 - ....Imaging EKG: Image Reviewed (TELE: SNR) Assessment/Plan LE cellulitis Acute on chronic diastolic CHF Severe PAD s/p RLE bypass in January 2017 CAD s/p PCI Acute on chronic renal failure. possibly triggered by decompensated diastolic CHF IDDM Prior CVA Anemia REC: Appears clinically improved, euvolemic. Hold on further Lasix. With recent echo and nuclear stress showing no ischemia, plan to manage his atypical chest pain conservatively/medically. Cardiac enzymes are negative.
[2017-06-04] MEDS: CEFEPIME HCL/D5W 1 GM/50 ML BAG IVPB SCH (09:47)
[2017-06-04] MEDS: CARVEDILOL 12.5 MG TABLET (FP) PO SCH ×2 (09:48→22:15)
[2017-06-04] MEDS: amLODIPine BESYLATE 5 MG TABLET (FP) PO SCH (09:48)
[2017-06-04] MEDS: ASPIRIN 81 MG CHEWABLE TABLETS PO SCH (09:48)
[2017-06-04] MEDS: CLOPIDOGREL BISULFATE 75 MG TABLET (FP) PO SCH (09:48)
--- NOTE | 2017-06-04 12:03 | PN ---
Progress Note (short form) - Note Progress Note: comfortable s/p left thigh drainage no complains Vital Signs Temp 98.2 F 06/04/17 10:00 Pulse 87 06/04/17 10:00 Resp 22 06/04/17 10:00 BP 123/50 06/04/17 10:00 Pulse Ox 92 L 06/04/17 09:00 Intake & Output 06/03/17 06/04/17 06/04/17 23:59 11:59 23:59 Intake Total 910 610 Output Total 1200 515 Balance -290 95 Intake: IV 10 10 RWRIST #22 2/ 10 10 Oral 900 600 Output: Drainage 15 Right Thigh 15 Urine 1200 500 Void 1200 500 Other: Voiding Method Urinal Urinal Bowel Movement Yes # Bowel Movements 1 Active Medications Amlodipine Besylate (Norvasc -) 5 mg PO DAILY [facility] Last Admin: 06/04/17 09:48 Dose: 5 mg Aspirin (Asa -) 81 mg PO DAILY [facility] Last Admin: 06/04/17 09:48 Dose: 81 mg Carvedilol (Coreg -) 12.5 mg PO BID [facility] Last Admin: 06/04/17 09:48 Dose: 12.5 mg Clopidogrel Bisulfate (Plavix -) 75 mg PO DAILY [facility] Last Admin: 06/04/17 09:48 Dose: 75 mg Heparin Sodium (Porcine) (Heparin -) 5,000 unit SQ TID [facility] Last Admin: 06/04/17 05:40 Dose: 5,000 unit Cefepime HCl (Maxipime 1 Gm Premix Ivpb) 1 gm in 50 mls @ 100 mls/hr IVPB DAILY [facility] Last Admin: 06/04/17 09:47 Dose: 100 mls/hr Insulin Aspart (Novolog Vial Sliding Scale -) 1 vial SQ ACHS [facility] PRN Reason: Protocol Last Admin: 06/04/17 11:42 Dose: 4 unit Active Medications Amlodipine Besylate (Norvasc -) 5 mg PO DAILY [facility] Last Admin: 06/04/17 09:48 Dose: 5 mg Aspirin (Asa -) 81 mg PO DAILY [facility] Last Admin: 06/04/17 09:48 Dose: 81 mg Carvedilol (Coreg -) 12.5 mg PO BID [facility] Last Admin: 06/04/17 09:48 Dose: 12.5 mg Clopidogrel Bisulfate (Plavix -) 75 mg PO DAILY [facility] Last Admin: 06/04/17 09:48 Dose: 75 mg Heparin Sodium (Porcine) (Heparin -) 5,000 unit SQ TID [facility] Last Admin: 06/04/17 05:40 Dose: 5,000 unit Cefepime HCl (Maxipime 1 Gm Premix Ivpb) 1 gm in 50 mls @ 100 mls/hr IVPB DAILY [facility] Last Admin: 06/04/17 09:47 Dose: 100 mls/hr Insulin Aspart (Novolog Vial Sliding Scale -) 1 vial SQ ACHS [facility] PRN Reason: Protocol Last Admin: 06/04/17 11:42 Dose: 4 unit CBC, BMP 06/04/17 06:07 06/04/17 06:07 Physical Exam Constitutional: Yes: No Distress, comfortable Eyes: Yes: no icterus HEENT: Yes: throat clear. Neck: Yes: Supple/ no jvd. Cardiovascular: Yes: Regular Rate and Rhythm, Murmur Respiratory: Yes: Clear to Auscultation. Gastrointestinal: Yes:Soft/ non tender. Edema: Yes Integumentary: Yes:drain + left lower extremity dressing + rle Minimal drainage + in drain. Neurological: Yes: Alert, awake. Assessment/Plan s/p drainage Acute on chronic diastolic CHF Severe PAD s/p RLE bypass in January 2017 CAD s/p PCI Acute on chronic renal failure. IDDM Prior CVA Anemia Smoker Clinically better Continue Abx F/u cultures Monitor cbc/ lytes transfuse prn smoking cessation counselling provided again. will follow . Problem List - Problems (1) Arterial insufficiency of lower extremity Code(s): I73.9 - PERIPHERAL VASCULAR DISEASE, UNSPECIFIED (2) CAD (coronary artery disease) Code(s): I25.10 - ATHSCL HEART DISEASE OF [place] CORONARY ARTERY W/O ANG PCTRS Qualifiers: Coronary Disease-Associated Artery/Lesion type: [place] artery [place] vs. transplanted heart: [place] heart Associated angina: without angina Qualified Code(s): I25.10 - Atherosclerotic heart disease of [place] coronary artery without angina pectoris (3) Cellulitis of left leg Code(s): L03.116 - CELLULITIS OF LEFT LOWER LIMB (4) Chronic renal insufficiency Code(s): N18.9 - CHRONIC KIDNEY DISEASE, UNSPECIFIED (5) Diabetes Code(s): E11.9 - TYPE 2 DIABETES MELLITUS WITHOUT COMPLICATIONS Qualifiers: Diabetes mellitus type: type 2 Diabetes mellitus complication detail: with nephropathy
[2017-06-05] MEDS: HEPARIN NA (PORCINE) 5,000 UNITS/ML 1ML VIAL SQ SCH ×3 (06:37→21:36)
[2017-06-05] MEDS: INSULIN SLIDING SCALE (NOVOLOG) 1 VIAL SQ SCH ×4 (06:37→21:47)
--- NOTE | 2017-06-05 09:03 | PN ---
Progress Note (short form) - Note Progress Note: Pt comfortable. No complains. s/p left thigh drainage pain ok passing urine. denies cp/sob. Vital Signs Temp 97.5 F L 06/05/17 02:00 Pulse 81 06/05/17 05:52 Resp 20 06/05/17 05:52 BP 118/55 06/05/17 05:52 Pulse Ox 95 06/04/17 21:00 Intake & Output 06/04/17 06/04/17 06/05/17 11:59 23:59 11:59 Intake Total 610 620 Output Total 515 600 450 Balance 95 20 -450 Weight 195 lb 12.8 oz Intake: IV 10 RWRIST #22 2/2 10 Oral 600 620 Output: Drainage 15 Right Thigh 15 Urine 500 600 450 Void 500 600 450 Other: Voiding Method Urinal Urinal Urinal # Unmeasured Voids Void 1 Bowel Movement Yes No # Bowel Movements 1 Weight Measurement Method Standing Scale Active Medications Amlodipine Besylate (Norvasc -) 5 mg PO DAILY [facility] Last Admin: 06/04/17 09:48 Dose: 5 mg Aspirin (Asa -) 81 mg PO DAILY [facility] Last Admin: 06/04/17 09:48 Dose: 81 mg Carvedilol (Coreg -) 12.5 mg PO BID [facility] Last Admin: 06/04/17 09:48 Dose: 12.5 mg Clopidogrel Bisulfate (Plavix -) 75 mg PO DAILY [facility] Last Admin: 06/04/17 09:48 Dose: 75 mg Heparin Sodium (Porcine) (Heparin -) 5,000 unit SQ TID [facility] Last Admin: 06/04/17 05:40 Dose: 5,000 unit Cefepime HCl (Maxipime 1 Gm Premix Ivpb) 1 gm in 50 mls @ 100 mls/hr IVPB DAILY [facility] Last Admin: 06/04/17 09:47 Dose: 100 mls/hr Insulin Aspart (Novolog Vial Sliding Scale -) 1 vial SQ ACHS [facility] PRN Reason: Protocol Last Admin: 06/04/17 11:42 Dose: 4 unit CBC, BMP 06/04/17 06:07 06/04/17 06:07 Microbiology 06/01/17 05:30 Blood Culture - Preliminary Blood - Peripheral Venous NO GROWTH OBTAINED AFTER 96 HOURS, INCUBATION TO CONTINUE FOR 1 DAYS. 06/01/17 05:30 Blood Culture - Preliminary Blood - Peripheral Venous NO GROWTH OBTAINED AFTER 96 HOURS, INCUBATION TO CONTINUE FOR 1 DAYS. 06/02/17 14:30 Gram Stain - Final Body Fluid - Other Body Fluid Culture - Preliminary Beta Hemolytic Strep Physical Exam Constitutional: Yes: No Distress, comfortable. Eyes: Yes: no icterus. HEENT: Yes: throat clear. Neck: Yes: Supple/ no jvd. Cardiovascular: Yes: Regular Rate and Rhythm, Murmur Respiratory: Yes: Clear to Auscultation. Gastrointestinal: Yes:Soft/ non tender. Edema: Yes Integumentary: Yes:drain + left lower extremity dressing + rle Minimal drainage + in drain. Neurological: Yes: Alert, awake. old / pre- existing defecits Assessment/Plan s/p drainage Acute on chronic diastolic CHF Severe PAD s/p RLE bypass in January 2017 CAD s/p PCI Acute on chronic renal failure. IDDM Prior CVA Anemia Smoker Clinically stable Continue Abx F/u cultures Monitor cbc/ lytes- ordered for today and tomorrow transfuse prn smoking cessation counselling . will follow. . Problem List - Problems (1) Arterial insufficiency of lower extremity Code(s): I73.9 - PERIPHERAL VASCULAR DISEASE, UNSPECIFIED (2) CAD (coronary artery disease) Code(s): I25.10 - ATHSCL HEART DISEASE OF [place] CORONARY ARTERY W/O ANG PCTRS Qualifiers: Coronary Disease-Associated Artery/Lesion type: [place] artery [place] vs. transplanted heart: [place] heart Associated angina: without angina Qualified Code(s): I25.10 - Atherosclerotic heart disease of [place] coronary artery without angina pectoris (3) Cellulitis of left leg Code(s): L03.116 - CELLULITIS OF LEFT LOWER LIMB (4) Chronic renal insufficiency Code(s): N18.9 - CHRONIC KIDNEY DISEASE, UNSPECIFIED (5) Diabetes Code(s): E11.9 - TYPE 2 DIABETES MELLITUS WITHOUT COMPLICATIONS Qualifiers: Diabetes mellitus type: type 2 Diabetes mellitus complication detail: with nephropathy
[2017-06-05] MEDS: amLODIPine BESYLATE 5 MG TABLET (FP) PO SCH (09:41)
[2017-06-05] MEDS: CARVEDILOL 12.5 MG TABLET (FP) PO SCH ×2 (09:41→21:36)
[2017-06-05] MEDS: ASPIRIN 81 MG CHEWABLE TABLETS PO SCH (09:41)
[2017-06-05] MEDS: CLOPIDOGREL BISULFATE 75 MG TABLET (FP) PO SCH (09:41)
[2017-06-05] MEDS ORDERED: PT OWN MED DRAWER 7, Y5N ONE ×2 (09:47→18:43)
[2017-06-05] MEDS: CEFEPIME HCL/D5W 1 GM/50 ML BAG IVPB SCH (09:50)
[2017-06-05 10:05] LABS: EOS % 5.8 % (0-4.5); HEMATOCRIT 25.5 % (35.4-49); HEMOGLOBIN 8.5 GM/dL (11.7-16.9); LYMPH % 14.1 % (8-40); MCH 31.1 pg (25.7-33.7); MCHC 33.2 g/dl (32.0-35.9); MEAN CELL VOLUME 93.6 fl (80-96); MEAN PLT VOLUME 8.2 fl (7.5-11.1); MONO % 9.9 % (3.8-10.2); NEUT % 69.2 % (42.8-82.8); PLATELET COUNT 211 K/MM3 (134-434); RBC 2.73 M/mm3 (4.00-5.60); RDW 14.8 % (11.9-15.9); WHITE BLOOD COUNT 5.7 K/mm3 (4.0-10.0)
[2017-06-05 10:31] LABS: ALBUMIN 2.2 g/dl (3.4-5.0); ANION GAP 7 (8-16); BILIRUBIN,TOTAL 0.2 mg/dL (0.2-1.0); BLOOD UREA NITROGEN 66 mg/dL (7-18); CALCIUM 8.1 mg/dL (8.5-10.1); CHLORIDE 103 mmol/L (98-107); CO2 27 mmol/L (21-32); CREATININE 2.4 mg/dL (0.7-1.3); GLUCOSE,RANDOM 150 mg/dL (74-106); POTASSIUM 4.9 mmol/L (3.5-5.1); SGOT/AST 9 U/L (15-37); SGPT/ALT 13 U/L (12-78); SODIUM 137 mmol/L (136-145); TOT PROT 6.2 g/dl (6.4-8.2)
[2017-06-05 10:32] LABS: ALK PHOS 73 U/L (45-117)
--- NOTE | 2017-06-05 12:26 | PN ---
Progress Note, Physician History of Present Illness: seen and examined today in [facility]. no overnight events. continued pain in legs. no further chest pain. - Current Medication List Current Medications: Active Medications Amlodipine Besylate (Norvasc -) 5 mg PO DAILY [facility] Last Admin: 06/05/17 09:41 Dose: 5 mg Aspirin (Asa -) 81 mg PO DAILY [facility] Last Admin: 06/05/17 09:41 Dose: 81 mg Carvedilol (Coreg -) 12.5 mg PO BID [facility] Last Admin: 06/05/17 09:41 Dose: 12.5 mg Clopidogrel Bisulfate (Plavix -) 75 mg PO DAILY [facility] Last Admin: 06/05/17 09:41 Dose: 75 mg Heparin Sodium (Porcine) (Heparin -) 5,000 unit SQ TID [facility] Last Admin: 06/05/17 06:37 Dose: 5,000 unit Cefepime HCl (Maxipime 1 Gm Premix Ivpb) 1 gm in 50 mls @ 100 mls/hr IVPB DAILY [facility] Last Admin: 06/05/17 09:50 Dose: 100 mls/hr Insulin Aspart (Novolog Vial Sliding Scale -) 1 vial SQ ACHS [facility] PRN Reason: Protocol Last Admin: 06/05/17 06:37 Dose: 2 unit - Objective Vital Signs: Vital Signs Temperature 97.5 F L 06/05/17 09:00 Pulse Rate 76 06/05/17 09:00 Respiratory Rate 24 06/05/17 09:00 Blood Pressure 118/61 06/05/17 09:00 O2 Sat by Pulse Oximetry (%) 94 L 06/05/17 09:00 Constitutional: Yes: No Distress, Calm Eyes: Yes: Conjunctiva Clear, EOM Intact HENT: Yes: Atraumatic, Normocephalic Neck: Yes: Supple, Trachea Midline Cardiovascular: Yes: Regular Rate and Rhythm, S1, S2. No: Bradycardia, Tachycardia, Pulse Irregular, Bruit, JVD, Gallop, Murmur, Rub, S3, S4, Varicosities Respiratory: Yes: Regular, Diminished. No: Rales, Rhonchi, SOB Gastrointestinal: Yes: Normal Bowel Sounds, Soft. No: Distention, Tenderness Edema: LLE: Trace, RLE: Trace Peripheral Pulses WNL: No Neurological: Yes: Alert, Oriented Psychiatric: Yes: Alert, Oriented Labs: CBC, BMP 06/05/17 09:54 06/05/17 09:54 INR, PTT INR 1.20 (0.82-1.09) H 06/01/17 05:30 - ....Imaging Chest X-ray: Report Reviewed, Image Reviewed EKG: Report Reviewed, Image Reviewed Other: Report Reviewed, Image Reviewed (tele-nsr, pvcs, no sig arrhythmias) Assessment/Plan LE cellulitis Acute on chronic diastolic CHF Severe PAD s/p RLE bypass in January 2017 CAD s/p PCI Acute on chronic renal failure. possibly triggered by decompensated diastolic CHF IDDM Prior CVA Anemia REC: Currently euvolemic. Holding additional Lasix Can dose Lasix prn at this time No further chest pain, cardiac enzymes wnl recent echo and nuclear stress showing no ischemia, plan has been to manage his atypical chest pain conservatively/medically. Ok to dc tele
--- NOTE | 2017-06-05 16:41 | PN ---
Progress Note (short form) - Note Progress Note: Renal follow up for VANDA Pt seen and examined at the bedside awake and alert no acute complaints no sob, cp continues to have pain in LE making urine Vital Signs Temperature 97.6 F 06/05/17 14:37 Pulse Rate 74 06/05/17 14:37 Respiratory Rate 20 06/05/17 14:37 Blood Pressure 110/52 06/05/17 14:37 O2 Sat by Pulse Oximetry (%) 94 L 06/05/17 09:00 Intake & Output 06/02/17 06/03/17 06/04/17 06/05/17 23:59 23:59 23:59 23:59 Intake Total 780 1160 1230 600 Output Total 2060 1565 1115 900 Balance -1280 -405 115 -300 Weight 88.813 kg NAD awake and alert left leg erythema improving + edema CBC, BMP 06/05/17 09:54 06/05/17 09:54 Current Medications Amlodipine Besylate (Norvasc -) 5 mg PO DAILY [facility] Last Admin: 06/05/17 09:41 Dose: 5 mg Aspirin (Asa -) 81 mg PO DAILY [facility] Last Admin: 06/05/17 09:41 Dose: 81 mg Carvedilol (Coreg -) 12.5 mg PO BID [facility] Last Admin: 06/05/17 09:41 Dose: 12.5 mg Clopidogrel Bisulfate (Plavix -) 75 mg PO DAILY [facility] Last Admin: 06/05/17 09:41 Dose: 75 mg Heparin Sodium (Porcine) (Heparin -) 5,000 unit SQ TID [facility] Last Admin: 06/05/17 13:04 Dose: 5,000 unit Cefepime HCl (Maxipime 1 Gm Premix Ivpb) 1 gm in 50 mls @ 100 mls/hr IVPB DAILY [facility] Last Admin: 06/05/17 09:50 Dose: 100 mls/hr Insulin Aspart (Novolog Vial Sliding Scale -) 1 vial SQ ACHS [facility] PRN Reason: Protocol Last Admin: 06/05/17 12:25 Dose: 2 unit 56 year old gentleman with PMhx of CKD (baseline Cr 1.4-1.8), Hypertension, DM, HLD, Diastolic HF, PVD s/p bypass, CAD, COPD, CVA who presented with lower extremity swelling and redness and noted to have Cr of 2.7. #Acute on Chronic Renal Insufficiency FeUrea was 29% indicating preserved tubular function Renal function stable at this time but remains above baseline holding diuretics at this time trend BUN/Cr #LE cellulitis/Edema/Collection continue abx as per ID continue drain Prakash Garcia DO
--- NOTE | 2017-06-05 17:41 | PN ---
Progress Note (short form) - Note Progress Note: Afeb Complains of right leg and knee apin. Mild swellling with no redness. Drainage is clear and scant WBC WNL C+S Strep Gp B Imp: Unclear if there is any significant infection in leg (no fever, no WBC) ID follow-up nneded. If there is concern for an abscess then open drainage and debridement can be scheduled for Monday.
[2017-06-06] MEDS ORDERED: PT OWN MED DRAWER 7, Y5N ONE ×2 (05:57→17:07)
[2017-06-06] MEDS: HEPARIN NA (PORCINE) 5,000 UNITS/ML 1ML VIAL SQ SCH ×3 (06:09→21:09)
[2017-06-06] MEDS: ACETAMINOPHEN 325 MG TABLET (FP) PO PRN (06:09)
[2017-06-06] MEDS: INSULIN SLIDING SCALE (NOVOLOG) 1 VIAL SQ SCH ×4 (06:40→21:09)
[2017-06-06 08:10] LABS: ALBUMIN 2.2 g/dl (3.4-5.0); ANION GAP 8 (8-16); BLOOD UREA NITROGEN 65 mg/dL (7-18); CALCIUM 8.1 mg/dL (8.5-10.1); CHLORIDE 105 mmol/L (98-107); CO2 24 mmol/L (21-32); GLUCOSE,RANDOM 139 mg/dL (74-106); MAGNESIUM 2.3 mg/dL (1.8-2.4); POTASSIUM 5.1 mmol/L (3.5-5.1); SGOT/AST 9 U/L (15-37); SGPT/ALT 15 U/L (12-78); SODIUM 137 mmol/L (136-145)
[2017-06-06 08:13] LABS: ALK PHOS 71 U/L (45-117); BILIRUBIN,TOTAL 0.2 mg/dL (0.2-1.0)
--- NOTE | 2017-06-06 09:15 | PN ---
Progress Note, Physician Chief Complaint: no distress - Current Medication List Current Medications: Active Medications Acetaminophen (Tylenol -) 650 mg PO Q6H PRN PRN Reason: PAIN Last Admin: 06/06/17 06:09 Dose: 650 mg Amlodipine Besylate (Norvasc -) 5 mg PO DAILY [facility] Aspirin (Asa -) 81 mg PO DAILY [facility] Carvedilol (Coreg -) 12.5 mg PO BID [facility] Last Admin: 06/05/17 21:36 Dose: 12.5 mg Clopidogrel Bisulfate (Plavix -) 75 mg PO DAILY [facility] Heparin Sodium (Porcine) (Heparin -) 5,000 unit SQ TID [facility] Last Admin: 06/06/17 06:09 Dose: 5,000 unit Cefepime HCl (Maxipime 1 Gm Premix Ivpb) 1 gm in 50 mls @ 100 mls/hr IVPB DAILY [facility] Insulin Aspart (Novolog Vial Sliding Scale -) 1 vial SQ ACHS [facility] PRN Reason: Protocol Last Admin: 06/06/17 06:40 Dose: 2 units - Objective Vital Signs: Vital Signs Temperature 97.9 F 06/06/17 06:27 Pulse Rate 77 06/06/17 06:27 Respiratory Rate 21 06/06/17 06:27 Blood Pressure 123/62 06/06/17 06:27 O2 Sat by Pulse Oximetry (%) 95 06/05/17 22:00 Constitutional: Yes: No Distress, Calm Cardiovascular: Yes: Regular Rate and Rhythm Respiratory: Yes: CTA Bilaterally Gastrointestinal: Yes: Soft Edema: Yes Edema: LLE: 1+, RLE: 1+ Neurological: Yes: Alert, Oriented Labs: CBC, BMP 06/05/17 09:54 06/06/17 06:30 INR, PTT INR 1.20 (0.82-1.09) H 06/01/17 05:30 Assessment/Plan Assessment/Plan LE cellulitis Acute on chronic diastolic CHF Severe PAD s/p RLE bypass in January 2017 CAD s/p PCI Acute on chronic renal failure. possibly triggered by decompensated diastolic CHF IDDM Prior CVA Anemia REC: Currently euvolemic. Holding additional Lasix Can dose Lasix prn at this time No further chest pain, cardiac enzymes wnl recent echo and nuclear stress showing no ischemia, plan has been to manage his atypical chest pain conservatively/medically.
[2017-06-06] MEDS ORDERED: CEFEPIME HCL/D5W 1 GM/50 ML BAG IVPB SCH (10:00)
[2017-06-06] MEDS: CARVEDILOL 12.5 MG TABLET (FP) PO SCH ×2 (10:26→21:10)
[2017-06-06] MEDS: amLODIPine BESYLATE 5 MG TABLET (FP) PO SCH (10:26)
[2017-06-06] MEDS: CLOPIDOGREL BISULFATE 75 MG TABLET (FP) PO SCH (10:26)
[2017-06-06] MEDS: ASPIRIN 81 MG CHEWABLE TABLETS PO SCH (10:26)
--- NOTE | 2017-06-06 11:14 | PN ---
Progress Note, Physician Chief Complaint: Events noted has pain rt leg drain+-- about 1ml so far - Current Medication List Current Medications: Active Medications Acetaminophen (Tylenol -) 650 mg PO Q6H PRN PRN Reason: PAIN Last Admin: 06/06/17 06:09 Dose: 650 mg Amlodipine Besylate (Norvasc -) 5 mg PO DAILY [facility] Last Admin: 06/06/17 10:26 Dose: 5 mg Aspirin (Asa -) 81 mg PO DAILY [facility] Last Admin: 06/06/17 10:26 Dose: 81 mg Carvedilol (Coreg -) 12.5 mg PO BID [facility] Last Admin: 06/06/17 10:26 Dose: 12.5 mg Clopidogrel Bisulfate (Plavix -) 75 mg PO DAILY [facility] Last Admin: 06/06/17 10:26 Dose: 75 mg Heparin Sodium (Porcine) (Heparin -) 5,000 unit SQ TID [facility] Last Admin: 06/06/17 06:09 Dose: 5,000 unit Cefepime HCl (Maxipime 1 Gm Premix Ivpb) 1 gm in 50 mls @ 100 mls/hr IVPB DAILY [facility] Last Admin: 06/06/17 10:26 Dose: 100 mls/hr Insulin Aspart (Novolog Vial Sliding Scale -) 1 vial SQ ACHS [facility] PRN Reason: Protocol Last Admin: 06/06/17 06:40 Dose: 2 units - Objective Vital Signs: Vital Signs Temperature 97.8 F 06/06/17 10:00 Pulse Rate 74 06/06/17 10:00 Respiratory Rate 20 06/06/17 10:00 Blood Pressure 126/59 06/06/17 10:00 O2 Sat by Pulse Oximetry (%) 95 06/05/17 22:00 Constitutional: Yes: No Distress Cardiovascular: Yes: Regular Rate and Rhythm Respiratory: Yes: Diminished Gastrointestinal: Yes: Normal Bowel Sounds, Soft. No: Tenderness Extremities: Yes: Other (rt thigh drain) Edema: Yes Edema: LLE: 2+, RLE: 1+ Psychiatric: Yes: Alert, Oriented Labs: CBC, BMP 06/05/17 09:54 06/06/17 06:30 INR, PTT INR 1.20 (0.82-1.09) H 06/01/17 05:30 Problem List - Problems (1) ASHD (arteriosclerotic heart disease) Code(s): I25.10 - ATHSCL HEART DISEASE OF [place] CORONARY ARTERY W/O ANG PCTRS (2) Acute renal insufficiency Code(s): N28.9 - DISORDER OF KIDNEY AND URETER, UNSPECIFIED (3) Anemia Code(s): D64.9 - ANEMIA, UNSPECIFIED (4) Abscess of leg, right Code(s): L02.415 - CUTANEOUS ABSCESS OF RIGHT LOWER LIMB Assessment/Plan plan Antibiotics-- ID follow up possible I &D Lasix prn, follow creatinine continue meds check sono lower extremity for collection
--- NOTE | 2017-06-06 16:01 | PN ---
Progress Note, Physician History of Present Illness: Awake, alert No c/o leg pain S/P percutaneous drainage, R LE arvind-graft collection Aspirate c/s + grp B strep Afebrile WBC WNL Azotemia improved - Current Medication List Current Medications: Active Medications Acetaminophen (Tylenol -) 650 mg PO Q6H PRN PRN Reason: PAIN Last Admin: 06/06/17 06:09 Dose: 650 mg Amlodipine Besylate (Norvasc -) 5 mg PO DAILY [facility] Last Admin: 06/06/17 10:26 Dose: 5 mg Aspirin (Asa -) 81 mg PO DAILY [facility] Last Admin: 06/06/17 10:26 Dose: 81 mg Carvedilol (Coreg -) 12.5 mg PO BID [facility] Last Admin: 06/06/17 10:26 Dose: 12.5 mg Clopidogrel Bisulfate (Plavix -) 75 mg PO DAILY [facility] Last Admin: 06/06/17 10:26 Dose: 75 mg Heparin Sodium (Porcine) (Heparin -) 5,000 unit SQ TID [facility] Last Admin: 06/06/17 13:56 Dose: Not Given Cefepime HCl (Maxipime 1 Gm Premix Ivpb) 1 gm in 50 mls @ 100 mls/hr IVPB DAILY [facility] Last Admin: 06/06/17 10:26 Dose: 100 mls/hr Insulin Aspart (Novolog Vial Sliding Scale -) 1 vial SQ ACHS [facility] PRN Reason: Protocol Last Admin: 06/06/17 12:04 Dose: Not Given - Objective Vital Signs: Vital Signs Temperature 97.7 F 06/06/17 13:41 Pulse Rate 74 06/06/17 10:00 Respiratory Rate 20 06/06/17 10:00 Blood Pressure 126/59 06/06/17 10:00 O2 Sat by Pulse Oximetry (%) 95 06/06/17 09:00 Constitutional: Yes: No Distress Eyes: Yes: Conjunctiva Clear Cardiovascular: Yes: Regular Rate and Rhythm, S2 Respiratory: Yes: CTA Bilaterally Extremities: Yes: Other (no erythema/ tenderness R thigh. Drain in place. Decreased distal L LE erythema) Labs: CBC, BMP 06/05/17 09:54 06/06/17 06:30 INR, PTT INR 1.20 (0.82-1.09) H 06/01/17 05:30 Assessment/Plan Bilateral LE cellulitis improved Renal failure Peripheral vascular disease Arvind-graft fluid collection/ infected seroma Substitute ceftriaxone Discussed with Dr Humphrey. For I&D
--- NOTE | 2017-06-06 16:51 | PN ---
Progress Note (short form) - Note Progress Note: Renal follow up for VANDA Pt seen and examined at the bedside awake and alert no acute complaints has some sob last night + leg swelling no sob, chest pain, abd pain now Vital Signs Temperature 97.7 F 06/06/17 13:41 Pulse Rate 74 06/06/17 10:00 Respiratory Rate 20 06/06/17 10:00 Blood Pressure 126/59 06/06/17 10:00 O2 Sat by Pulse Oximetry (%) 95 06/06/17 09:00 Intake & Output 06/03/17 06/04/17 06/05/17 06/06/17 23:59 23:59 23:59 23:59 Intake Total 1160 1230 800 550 Output Total 1565 1116 1301 1350 Balance -405 114 -501 -800 Weight 88.813 kg 89.414 kg NAD awake and alert CTA left leg erythema improving + edema CBC, BMP 06/05/17 09:54 06/06/17 06:30 Current Medications Acetaminophen (Tylenol -) 650 mg PO Q6H PRN PRN Reason: PAIN Last Admin: 06/06/17 06:09 Dose: 650 mg Amlodipine Besylate (Norvasc -) 5 mg PO DAILY [facility] Last Admin: 06/06/17 10:26 Dose: 5 mg Aspirin (Asa -) 81 mg PO DAILY [facility] Last Admin: 06/06/17 10:26 Dose: 81 mg Carvedilol (Coreg -) 12.5 mg PO BID [facility] Last Admin: 06/06/17 10:26 Dose: 12.5 mg Clopidogrel Bisulfate (Plavix -) 75 mg PO DAILY [facility] Last Admin: 06/06/17 10:26 Dose: 75 mg Heparin Sodium (Porcine) (Heparin -) 5,000 unit SQ TID [facility] Last Admin: 06/06/17 13:56 Dose: Not Given CEFTRIAXONE IN IS-OSM DEXTROSE (Ceftriaxone 2 Gm-D5w Bag) 2 gm in 50 mls @ 100 mls/hr IVPB DAILY [facility] Insulin Aspart (Novolog Vial Sliding Scale -) 1 vial SQ ACHS [facility] PRN Reason: Protocol Last Admin: 06/06/17 12:04 Dose: Not Given 56 year old gentleman with PMhx of CKD (baseline Cr 1.4-1.8), Hypertension, DM, HLD, Diastolic HF, PVD s/p bypass, CAD, COPD, CVA who presented with lower extremity swelling and redness and noted to have Cr of 2.7. #Acute on Chronic Renal Insufficiency Renal function improving toward baseline with withholding of diuretics pt does have edema, likley will need oral diuretics Trend BUN/Cr and electrolytes #LE cellulitis/Edema/Collection continue abx as per ID continue drain Prakash Garcia DO
[2017-06-06] MEDS: CEFTRIAXONE IN IS-OSM DEXTROSE 2 GM/50 ML BAG IVPB SCH (18:39)
[2017-06-06] MEDS ORDERED: INSULIN (NOVOLOG) ASPART 100 UNITS/ML 10ML VIAL ONE ×2 (18:51→21:04)
[2017-06-07] MEDS: HEPARIN NA (PORCINE) 5,000 UNITS/ML 1ML VIAL SQ SCH ×3 (06:00→13:41)
[2017-06-07] MEDS: INSULIN SLIDING SCALE (NOVOLOG) 1 VIAL SQ SCH ×3 (06:20→21:18)
[2017-06-07] MEDS: CARVEDILOL 12.5 MG TABLET (FP) PO SCH ×3 (08:19→21:12)
[2017-06-07 08:21] LABS: ANION GAP 7 (8-16); BLOOD UREA NITROGEN 61 mg/dL (7-18); CALCIUM 7.9 mg/dL (8.5-10.1); CHLORIDE 107 mmol/L (98-107); CO2 25 mmol/L (21-32); GLUCOSE,RANDOM 153 mg/dL (74-106); HEMOGLOBIN 7.9 GM/dL (11.7-16.9); MAGNESIUM 2.4 mg/dL (1.8-2.4); MEAN PLT VOLUME 9.1 fl (7.5-11.1); PLATELET COUNT 221 K/MM3 (134-434); POTASSIUM 5.4 mmol/L (3.5-5.1); RBC 2.55 M/mm3 (4.00-5.60); RDW 14.7 % (11.9-15.9); SODIUM 139 mmol/L (136-145); WHITE BLOOD COUNT 7.2 K/mm3 (4.0-10.0)
[2017-06-07] MEDS: amLODIPine BESYLATE 5 MG TABLET (FP) PO SCH ×2 (09:09→13:36)
[2017-06-07] MEDS: ASPIRIN 81 MG CHEWABLE TABLETS PO SCH ×2 (09:09→13:36)
[2017-06-07] MEDS: CLOPIDOGREL BISULFATE 75 MG TABLET (FP) PO SCH ×2 (09:10→13:36)
[2017-06-07] MEDS ORDERED: LIDOCAINE HCL 1%, 10 MG/ML (20ML VIAL) ONE ×2 (10:56→11:35)
[2017-06-07] MEDS: CEFTRIAXONE IN IS-OSM DEXTROSE 2 GM/50 ML BAG IVPB SCH ×2 (10:59→13:35)
[2017-06-07] MEDS ORDERED: LIDOCAINE HCL 1%, 10 MG/ML (20ML VIAL) NR ONE (11:27)
--- NOTE | 2017-06-07 12:03 | OP ---
Operative Note - Note: Operative Date: 06/07/17 Pre-Operative Diagnosis: Fluid collection right thigh Operation: Incision and drainage of right thigh incision. Findings: No fluid collection at end of drain catheter. Post-Operative Diagnosis: Same as Pre-op Surgeon: Ze Humphrey Anesthesia: Local Specimens Removed: None
--- NOTE | 2017-06-07 13:58 | PN ---
Progress Note, Physician Chief Complaint: s/p I & D no collection drain removed has blood oozing out has pain in thigh - Current Medication List Current Medications: Active Medications Acetaminophen (Tylenol -) 650 mg PO Q6H PRN PRN Reason: PAIN Last Admin: 06/06/17 06:09 Dose: 650 mg Amlodipine Besylate (Norvasc -) 5 mg PO DAILY [facility] Last Admin: 06/07/17 13:36 Dose: 5 mg Aspirin (Asa -) 81 mg PO DAILY [facility] Last Admin: 06/07/17 13:36 Dose: 81 mg Carvedilol (Coreg -) 12.5 mg PO BID [facility] Last Admin: 06/07/17 09:09 Dose: Not Given Clopidogrel Bisulfate (Plavix -) 75 mg PO DAILY [facility] Last Admin: 06/07/17 13:36 Dose: 75 mg Heparin Sodium (Porcine) (Heparin -) 5,000 unit SQ TID [facility] Last Admin: 06/07/17 06:00 Dose: Not Given CEFTRIAXONE IN IS-OSM DEXTROSE (Ceftriaxone 2 Gm-D5w Bag) 2 gm in 50 mls @ 100 mls/hr IVPB DAILY [facility] Last Admin: 06/07/17 13:35 Dose: 100 mls/hr Insulin Aspart (Novolog Vial Sliding Scale -) 1 vial SQ ACHS [facility] PRN Reason: Protocol Last Admin: 06/07/17 06:20 Dose: Not Given - Objective Vital Signs: Vital Signs Temperature 97.8 F 06/07/17 12:21 Pulse Rate 71 06/07/17 12:21 Respiratory Rate 20 06/07/17 12:21 Blood Pressure 138/72 06/07/17 12:21 O2 Sat by Pulse Oximetry (%) 94 L 06/07/17 12:21 Constitutional: Yes: No Distress, Calm Cardiovascular: Yes: Regular Rate and Rhythm Respiratory: Yes: CTA Bilaterally Extremities: Yes: Other (right thigh dressing- soaked, bloody) Labs: CBC, BMP 06/07/17 06:00 06/07/17 06:00 INR, PTT INR 1.20 (0.82-1.09) H 06/01/17 05:30 Problem List - Problems (1) ASHD (arteriosclerotic heart disease) Code(s): I25.10 - ATHSCL HEART DISEASE OF [place] CORONARY ARTERY W/O ANG PCTRS (2) Acute renal insufficiency Code(s): N28.9 - DISORDER OF KIDNEY AND URETER, UNSPECIFIED (3) Anemia Code(s): D64.9 - ANEMIA, UNSPECIFIED (4) Abscess of leg, right Code(s): L02.415 - CUTANEOUS ABSCESS OF RIGHT LOWER LIMB Assessment/Plan plan Antibiotics per ID s/p I &D today Lasix follow creatinine continue meds recheck CBC surgery follow up for redressing
--- NOTE | 2017-06-07 15:53 | PN ---
Progress Note (short form) - Note Progress Note: Renal follow up for VANDA Pt seen and examined at the bedside s/p I&D of thigh this am with vascular surgery pt has bleeding from operative site, dressing changed by surgical PA no sob, but has pain in the distal leg Vital Signs Temperature 98.2 F 06/07/17 15:18 Pulse Rate 73 06/07/17 15:18 Respiratory Rate 20 06/07/17 15:18 Blood Pressure 143/62 06/07/17 15:18 O2 Sat by Pulse Oximetry (%) 94 L 06/07/17 12:21 Intake & Output 06/04/17 06/05/17 06/06/17 06/07/17 23:59 23:59 23:59 23:59 Intake Total 4341 571 6513 275 Output Total 1116 1301 2110 835 Balance 114 -501 -910 -560 Weight 88.813 kg 89.414 kg 90.945 kg NAD awake and alert CTA left leg erythema improving + edema CBC, BMP 06/07/17 06:00 06/07/17 06:00 Current Medications Acetaminophen (Tylenol -) 650 mg PO Q6H PRN PRN Reason: PAIN Last Admin: 06/06/17 06:09 Dose: 650 mg Amlodipine Besylate (Norvasc -) 5 mg PO DAILY [facility] Last Admin: 06/07/17 13:36 Dose: 5 mg Aspirin (Asa -) 81 mg PO DAILY [facility] Last Admin: 06/07/17 13:36 Dose: 81 mg Carvedilol (Coreg -) 12.5 mg PO BID [facility] Last Admin: 06/07/17 09:09 Dose: Not Given Clopidogrel Bisulfate (Plavix -) 75 mg PO DAILY [facility] Last Admin: 06/07/17 13:36 Dose: 75 mg CEFTRIAXONE IN IS-OSM DEXTROSE (Ceftriaxone 2 Gm-D5w Bag) 2 gm in 50 mls @ 100 mls/hr IVPB DAILY [facility] Last Admin: 06/07/17 13:35 Dose: 100 mls/hr Insulin Aspart (Novolog Vial Sliding Scale -) 1 vial SQ ACHS [facility] PRN Reason: Protocol Last Admin: 06/07/17 06:20 Dose: Not Given 56 year old gentleman with PMhx of CKD (baseline Cr 1.4-1.8), Hypertension, DM, HLD, Diastolic HF, PVD s/p bypass, CAD, COPD, CVA who presented with lower extremity swelling and redness and noted to have Cr of 2.7. #Acute on Chronic Renal Insufficiency Renal function is overall improved and stable pt has worsening LE edema and now pain, will give Lasix 40mg IV x 1 and monitor clinical response Trend BUN/Cr and electrolytes no MICHAEL/ARB at this time #LE cellulitis/Edema/Collection continue abx as per ID s/p I&D today Prakash Garcia DO
[2017-06-07] MEDS ORDERED: FUROSEMIDE 40 MG/4 ML INJECTABLE VIAL IVPUSH ONE (15:54)
--- NOTE | 2017-06-07 16:07 | PN ---
Progress Note (short form) - Note Progress Note: Vascular Surgery: Called to see pt for Right leg bleeding after I&D of his leg. The outer dressing was changed, the packing was keep in place. A pressure kerlix/abd and coban dressing were applied. The medical team was at the bedside and the patients heparin will be held overnight. D/w Dr. Humphrey.
[2017-06-07] MEDS ORDERED: INSULIN (NOVOLOG) ASPART 100 UNITS/ML 10ML VIAL ONE ×2 (16:15→21:15)
[2017-06-07] MEDS: ACETAMINOPHEN 325 MG TABLET (FP) PO PRN (18:08)
[2017-06-07 19:50] LABS: HEMOGLOBIN 7.5 GM/dL (11.7-16.9); MCH 31.2 pg (25.7-33.7); MCHC 32.8 g/dl (32.0-35.9); MEAN CELL VOLUME 95.2 fl (80-96); MEAN PLT VOLUME 9.2 fl (7.5-11.1); PLATELET COUNT 227 K/MM3 (134-434); RBC 2.42 M/mm3 (4.00-5.60); RDW 14.4 % (11.9-15.9); WHITE BLOOD COUNT 6.6 K/mm3 (4.0-10.0)
[2017-06-07 20:09] LABS: ANION GAP 5 (8-16); BLOOD UREA NITROGEN 60 mg/dL (7-18); CALCIUM 7.7 mg/dL (8.5-10.1); CHLORIDE 108 mmol/L (98-107); CO2 26 mmol/L (21-32); GLUCOSE,RANDOM 106 mg/dL (74-106); POTASSIUM 5.7 mmol/L (3.5-5.1); SODIUM 139 mmol/L (136-145)
[2017-06-07] MEDS ORDERED: SODIUM POLYSTYRENE SULFONATE 15 GM/60 ML BOTTLE PO ONE (21:00)
--- NOTE | 2017-06-07 23:07 | OP ---
DATE OF OPERATION: 06/07/2017 SURGEON: Ze David M.D. PROCEDURE: Incision and drainage of right thigh. PREOPERATIVE DIAGNOSIS: Abscess right thigh. POSTOPERATIVE DIAGNOSIS: Abscess right thigh. ANESTHESIA: Local. OPERATIVE FINDINGS: At the site of a drained collection in the right thigh incision, there was no visible fluid or abscess seen. OPERATIVE PROCEDURE: Following routine patient identification, the right leg was prepped with Betadine solution. 1% lidocaine was infiltrated in the scar in the right medial thigh from previous bypass operation. The scar was opened and carried into the subcutaneous plane using cautery for hemostasis. The drain catheter which had been placed last week was tracked down to its end and removed. Digital and visual inspection revealed no abscess cavity. There was no fluid collection and no visible signs of infection, no fibrin or pus seen. The wound was irrigated with saline and packed open with iodoform gauze. A sterile dressing was applied. The patient was taken back to his hospital room in stable condition. ZE DAVID M.D. NHAN/[id number]
[2017-06-08] MEDS: ACETAMINOPHEN 325 MG TABLET (FP) PO PRN ×2 (05:56→21:43)
[2017-06-08] MEDS: INSULIN SLIDING SCALE (NOVOLOG) 1 VIAL SQ SCH ×4 (06:37→21:39)
[2017-06-08] MEDS ORDERED: INSULIN (NOVOLOG) ASPART 100 UNITS/ML 10ML VIAL ONE ×3 (06:43→15:43)
[2017-06-08 07:24] LABS: HEMATOCRIT 21.6 % (35.4-49); HEMOGLOBIN 7.1 GM/dL (11.7-16.9); MCHC 32.7 g/dl (32.0-35.9); MEAN CELL VOLUME 94.8 fl (80-96); MEAN PLT VOLUME 8.9 fl (7.5-11.1); PLATELET COUNT 223 K/MM3 (134-434); RBC 2.28 M/mm3 (4.00-5.60); RDW 14.6 % (11.9-15.9); WHITE BLOOD COUNT 8.7 K/mm3 (4.0-10.0)
[2017-06-08 08:45] LABS: CHLORIDE 108 mmol/L (98-107); POTASSIUM 5.5 mmol/L (3.5-5.1); SODIUM 139 mmol/L (136-145)
[2017-06-08 08:57] LABS: ANION GAP 8 (8-16); BLOOD UREA NITROGEN 61 mg/dL (7-18); CALCIUM 7.5 mg/dL (8.5-10.1); CO2 23 mmol/L (21-32); CREATININE 1.9 mg/dL (0.7-1.3); GLUCOSE,RANDOM 133 mg/dL (74-106); MAGNESIUM 2.2 mg/dL (1.8-2.4); PHOSPHOROUS 4.3 mg/dL (2.5-4.9)
[2017-06-08] MEDS: CEFTRIAXONE IN IS-OSM DEXTROSE 2 GM/50 ML BAG IVPB SCH (10:30)
[2017-06-08] MEDS: amLODIPine BESYLATE 5 MG TABLET (FP) PO SCH (10:31)
[2017-06-08] MEDS: ASPIRIN 81 MG CHEWABLE TABLETS PO SCH (10:31)
[2017-06-08] MEDS: CARVEDILOL 12.5 MG TABLET (FP) PO SCH ×2 (10:31→21:37)
[2017-06-08] MEDS: CLOPIDOGREL BISULFATE 75 MG TABLET (FP) PO SCH (10:31)
--- NOTE | 2017-06-08 11:05 | PN ---
Progress Note, Physician History of Present Illness: seen and examined today in nad. states he had a brief episode of sob this am that resolved. c/o continued LE pain. no other new complaints. no further chest pain. - Current Medication List Current Medications: Active Medications Acetaminophen (Tylenol -) 650 mg PO Q6H PRN PRN Reason: PAIN Last Admin: 06/08/17 05:56 Dose: 650 mg Amlodipine Besylate (Norvasc -) 5 mg PO DAILY [facility] Last Admin: 06/08/17 10:31 Dose: 5 mg Aspirin (Asa -) 81 mg PO DAILY [facility] Last Admin: 06/08/17 10:31 Dose: 81 mg Carvedilol (Coreg -) 12.5 mg PO BID [facility] Last Admin: 06/08/17 10:31 Dose: 12.5 mg Clopidogrel Bisulfate (Plavix -) 75 mg PO DAILY [facility] Last Admin: 06/08/17 10:31 Dose: 75 mg CEFTRIAXONE IN IS-OSM DEXTROSE (Ceftriaxone 2 Gm-D5w Bag) 2 gm in 50 mls @ 100 mls/hr IVPB DAILY [facility] Last Admin: 06/08/17 10:30 Dose: 100 mls/hr Insulin Aspart (Novolog Vial Sliding Scale -) 1 vial SQ ACHS [facility] PRN Reason: Protocol Last Admin: 06/08/17 10:35 Dose: 2 units - Objective Vital Signs: Vital Signs Temperature 98.8 F 06/08/17 05:25 Pulse Rate 95 H 06/08/17 05:25 Respiratory Rate 20 06/08/17 05:25 Blood Pressure 132/60 06/08/17 05:25 O2 Sat by Pulse Oximetry (%) 94 L 06/07/17 20:23 Constitutional: Yes: No Distress, Calm Eyes: Yes: Conjunctiva Clear, EOM Intact HENT: Yes: Atraumatic, Normocephalic Neck: Yes: Supple, Trachea Midline Cardiovascular: Yes: Regular Rate and Rhythm, S1, S2. No: Bradycardia, Tachycardia, Pulse Irregular, Bruit, JVD, Gallop, Murmur, Rub, S3, S4, Varicosities Respiratory: Yes: Regular, Diminished. No: Rales, Rhonchi, Wheezes Gastrointestinal: Yes: Normal Bowel Sounds, Soft. No: Distention, Tenderness Peripheral Pulses WNL: No Neurological: Yes: Alert, Oriented Psychiatric: Yes: Alert, Oriented Labs: CBC, BMP 06/08/17 06:20 06/08/17 06:20 INR, PTT INR 1.20 (0.82-1.09) H 06/01/17 05:30 - ....Imaging Chest X-ray: Report Reviewed, Image Reviewed EKG: Report Reviewed, Image Reviewed Other: Report Reviewed, Image Reviewed Assessment/Plan LE cellulitis Acute on chronic diastolic CHF Severe PAD s/p RLE bypass in January 2017 CAD s/p PCI Acute on chronic renal failure. possibly triggered by decompensated diastolic CHF IDDM Prior CVA Anemia REC: Remains euvolemic. Holding additional Lasix for now can dose Lasix prn for now No further chest pain, cardiac enzymes wnl recent echo and nuclear stress showing no ischemia, plan has been to manage his atypical chest pain conservatively/medically. HTN adequately controlled for now, cont current regimen cont antiplatelets Vascular f/up of Carotid stenosis as well, significant LICA stenosis, known BERTRAND occlusion
--- NOTE | 2017-06-08 12:12 | PN ---
Progress Note, Physician Chief Complaint: The patient seen in his bed. C/o pain at the incision site. Got out of bed earlier. No shortness of breath. - Current Medication List Current Medications: Active Medications Acetaminophen (Tylenol -) 650 mg PO Q6H PRN PRN Reason: PAIN Last Admin: 06/08/17 05:56 Dose: 650 mg Amlodipine Besylate (Norvasc -) 5 mg PO DAILY [facility] Last Admin: 06/08/17 10:31 Dose: 5 mg Aspirin (Asa -) 81 mg PO DAILY [facility] Last Admin: 06/08/17 10:31 Dose: 81 mg Carvedilol (Coreg -) 12.5 mg PO BID [facility] Last Admin: 06/08/17 10:31 Dose: 12.5 mg Clopidogrel Bisulfate (Plavix -) 75 mg PO DAILY [facility] Last Admin: 06/08/17 10:31 Dose: 75 mg CEFTRIAXONE IN IS-OSM DEXTROSE (Ceftriaxone 2 Gm-D5w Bag) 2 gm in 50 mls @ 100 mls/hr IVPB DAILY [facility] Last Admin: 06/08/17 10:30 Dose: 100 mls/hr Insulin Aspart (Novolog Vial Sliding Scale -) 1 vial SQ ACHS [facility] PRN Reason: Protocol Last Admin: 06/08/17 10:35 Dose: 2 units - Objective Vital Signs: Vital Signs Temperature 98.3 F 06/08/17 08:00 Pulse Rate 91 H 06/08/17 08:00 Respiratory Rate 20 06/08/17 08:00 Blood Pressure 159/82 06/08/17 08:00 O2 Sat by Pulse Oximetry (%) 94 L 06/08/17 08:00 Constitutional: Yes: No Distress, Anxious HENT: Yes: Atraumatic, Normocephalic Neck: Yes: Trachea Midline Cardiovascular: Yes: Regular Rate and Rhythm, S1, S2 Respiratory: Yes: CTA Bilaterally, Diminished Gastrointestinal: Yes: Normal Bowel Sounds, Abdomen, Obese Musculoskeletal: Yes: Muscle Pain Edema: LLE: 2+, RLE: 2+ Neurological: Yes: Alert, Oriented Psychiatric: Yes: Alert, Oriented Labs: CBC, BMP 06/08/17 06:20 06/08/17 06:20 INR, PTT INR 1.20 (0.82-1.09) H 06/01/17 05:30 Problem List - Problems (1) Abscess of leg, right Code(s): L02.415 - CUTANEOUS ABSCESS OF RIGHT LOWER LIMB (2) ASHD (arteriosclerotic heart disease) Code(s): I25.10 - ATHSCL HEART DISEASE OF [place] CORONARY ARTERY W/O ANG PCTRS (3) Acute renal insufficiency Code(s): N28.9 - DISORDER OF KIDNEY AND URETER, UNSPECIFIED (4) Anemia Code(s): D64.9 - ANEMIA, UNSPECIFIED (5) Arterial insufficiency of lower extremity Code(s): I73.9 - PERIPHERAL VASCULAR DISEASE, UNSPECIFIED (6) CKD (chronic kidney disease) Code(s): N18.9 - CHRONIC KIDNEY DISEASE, UNSPECIFIED Qualifiers: Chronic kidney disease stage: unspecified stage Qualified Code(s): N18.9 - Chronic kidney disease, unspecified (7) Diabetes mellitus, insulin dependent (IDDM), controlled Code(s): E10.9 - TYPE 1 DIABETES MELLITUS WITHOUT COMPLICATIONS (8) Diastolic CHF Code(s): I50.30 - UNSPECIFIED DIASTOLIC (CONGESTIVE) HEART FAILURE (9) Edema Code(s): R60.9 - EDEMA, UNSPECIFIED Qualifiers: Edema type: unspecified Qualified Code(s): R60.9 - Edema, unspecified (10) Hyperkalemia Code(s): E87.5 - HYPERKALEMIA (11) Hyperlipidemia Code(s): E78.5 - HYPERLIPIDEMIA, UNSPECIFIED (12) PAD (peripheral artery disease) Code(s): I73.9 - PERIPHERAL VASCULAR DISEASE, UNSPECIFIED (13) Stasis dermatitis of left lower extremity due to peripheral venous hypertension Code(s): I87.322 - CHRONIC VENOUS HYPERTENSION W INFLAMMATION OF L LOW EXTREM (14) Ulcer Code(s): L98.499 - NON-PRESSURE CHRONIC ULCER OF SKIN OF SITES W UNSP SEVERITY Assessment/Plan 56 year old gentleman with Past medical history of CKD (baseline Cr 1.4-1.8), Hypertension, DM, HLD, Diastolic HF, PVD s/p bypass, CAD, COPD, CVA who presented with lower extremity swelling and redness. S/P I and D od abscess in the groin. Acute on Chronic Renal Insufficiency Renal function is overall improved and stable at Serum Cr 1.9. Pt still with pain in the legs. The LE edema persists. Will give Lasix 40mg IV again today, and monitor clinical response Trend BUN/Cr and electrolytes LE cellulitis/Edema/Collection...on Ceftriaxone Will continue abx as per ID Will monitor the renal functions with you. Thank you. Susie Brooke MD
--- NOTE | 2017-06-08 13:10 | PN ---
Progress Note, Physician Chief Complaint: no oozing from dressing pt states he feels terrible SOB when ambulating no dizziness has some pain in leg - Current Medication List Current Medications: Active Medications Acetaminophen (Tylenol -) 650 mg PO Q6H PRN PRN Reason: PAIN Last Admin: 06/08/17 05:56 Dose: 650 mg Amlodipine Besylate (Norvasc -) 5 mg PO DAILY [facility] Last Admin: 06/08/17 10:31 Dose: 5 mg Aspirin (Asa -) 81 mg PO DAILY [facility] Last Admin: 06/08/17 10:31 Dose: 81 mg Carvedilol (Coreg -) 12.5 mg PO BID [facility] Last Admin: 06/08/17 10:31 Dose: 12.5 mg Clopidogrel Bisulfate (Plavix -) 75 mg PO DAILY [facility] Last Admin: 06/08/17 10:31 Dose: 75 mg CEFTRIAXONE IN IS-OSM DEXTROSE (Ceftriaxone 2 Gm-D5w Bag) 2 gm in 50 mls @ 100 mls/hr IVPB DAILY [facility] Last Admin: 06/08/17 10:30 Dose: 100 mls/hr Insulin Aspart (Novolog Vial Sliding Scale -) 1 vial SQ ACHS [facility] PRN Reason: Protocol Last Admin: 06/08/17 10:35 Dose: 2 units - Objective Vital Signs: Vital Signs Temperature 98.3 F 06/08/17 08:00 Pulse Rate 91 H 06/08/17 08:00 Respiratory Rate 20 06/08/17 08:00 Blood Pressure 159/82 06/08/17 08:00 O2 Sat by Pulse Oximetry (%) 94 L 06/08/17 08:00 Constitutional: Yes: No Distress Cardiovascular: Yes: Regular Rate and Rhythm Respiratory: Yes: CTA Bilaterally Gastrointestinal: Yes: Normal Bowel Sounds, Soft, Abdomen, Obese. No: Distention, Tenderness Extremities: Yes: Other (rt leg dressing in place) Edema: Yes Labs: CBC, BMP 06/08/17 06:20 06/08/17 06:20 INR, PTT INR 1.20 (0.82-1.09) H 06/01/17 05:30 Problem List - Problems (1) ASHD (arteriosclerotic heart disease) Code(s): I25.10 - ATHSCL HEART DISEASE OF [place] CORONARY ARTERY W/O ANG PCTRS (2) Acute renal insufficiency Code(s): N28.9 - DISORDER OF KIDNEY AND URETER, UNSPECIFIED (3) Anemia Code(s): D64.9 - ANEMIA, UNSPECIFIED (4) Abscess of leg, right Code(s): L02.415 - CUTANEOUS ABSCESS OF RIGHT LOWER LIMB Assessment/Plan plan Antibiotics per ID s/p I &D on Lasix renal function better Transfuse one unit today Has carotid stenosis on sono -- will have Neurology follow up for need for surgery -- spoke with surgery ASTRID Herbert -- they need to know if Neurologist feels that pt needs surgery for carotid stenosis continue meds
--- NOTE | 2017-06-08 13:24 | PN ---
Progress Note (short form) - Note Progress Note: POD#1 The dressing has remained dry and intact overnight. Vital Signs Period Temp Pulse Resp BP Sys/Fuentes Pulse Ox Last 24 Hr 98.1 F-98.8 F 73-95 19-20 132-159/58-82 94-94 GEN: A&0x3, NAD oob to chair Right leg: dressing dry and intact, RLE with +2 DP pulse and warm. mild edema LLE: mild erythema around the ankle CBC, BMP 02/08/18 06:20 02/08/18 06:20 A/p: 56 yo male s/p Right thigh I&D, POD#1 Continue asa/plavix and resume Heparin SQ as per the medical team. D/w Dr. Buchanan Dressing changes to resume 2, wet to dry with NS D/w Dr. Humphrey, neurology follow-up regarding repair of carotid stenosis. Please have cardiology clear the patient if surgery is advised by neurology
--- NOTE | 2017-06-08 13:34 | PN ---
Progress Note, Physician History of Present Illness: Awake, alert C/O pain at site of R thigh I&D Operative findings noted Afebrile WBC WNL Azotemia improved - Current Medication List Current Medications: Active Medications Acetaminophen (Tylenol -) 650 mg PO Q6H PRN PRN Reason: PAIN Last Admin: 06/08/17 05:56 Dose: 650 mg Amlodipine Besylate (Norvasc -) 5 mg PO DAILY [facility] Last Admin: 06/08/17 10:31 Dose: 5 mg Aspirin (Asa -) 81 mg PO DAILY [facility] Last Admin: 06/08/17 10:31 Dose: 81 mg Carvedilol (Coreg -) 12.5 mg PO BID [facility] Last Admin: 06/08/17 10:31 Dose: 12.5 mg Clopidogrel Bisulfate (Plavix -) 75 mg PO DAILY [facility] Last Admin: 06/08/17 10:31 Dose: 75 mg CEFTRIAXONE IN IS-OSM DEXTROSE (Ceftriaxone 2 Gm-D5w Bag) 2 gm in 50 mls @ 100 mls/hr IVPB DAILY [facility] Last Admin: 06/08/17 10:30 Dose: 100 mls/hr Insulin Aspart (Novolog Vial Sliding Scale -) 1 vial SQ ACHS [facility] PRN Reason: Protocol Last Admin: 06/08/17 10:35 Dose: 2 units - Objective Vital Signs: Vital Signs Temperature 98.3 F 06/08/17 08:00 Pulse Rate 91 H 06/08/17 08:00 Respiratory Rate 20 06/08/17 08:00 Blood Pressure 159/82 06/08/17 08:00 O2 Sat by Pulse Oximetry (%) 94 L 06/08/17 08:00 Constitutional: Yes: No Distress Cardiovascular: Yes: Regular Rate and Rhythm, S1, S2 Respiratory: Yes: CTA Bilaterally Gastrointestinal: Yes: Normal Bowel Sounds, Soft. No: Tenderness Extremities: Yes: Other (Post op dressing R thigh left intact. Decreased distal L LE erythema.) Labs: CBC, BMP 06/08/17 06:20 06/08/17 06:20 INR, PTT INR 1.20 (0.82-1.09) H 06/01/17 05:30 Assessment/Plan Bilateral LE cellulitis improved Renal failure Peripheral vascular disease Viry-graft fluid collection/ infected seroma Continue ceftriaxone Will likely need tunnel catheter for outpatient antibiotic therapy
--- NOTE | 2017-06-08 21:14 | PN ---
Progress Note (short form) - Note Progress Note: NEUROLOGY F/U: Events reviewed and discussed with Dr. Humphrey. Carotid duplex doppler performed in evaluation of a carotid bruit on the left showed a right carotid occlusion and a critical (>90%) left carotid stenosis. Now: Pt feels better with decreased pain and swelling right leg. Carotid results and stroke risk discussed with Mr. Solis. Exam: Left carotid bruit Left hemiparesis. Unchanged from prior exam IMP: 1. 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 2. Left carotid bruit with critical carotid stenosis. SUGGEST: Left carotid endarectomy. Resume clopidogrel post-op. Add a statin. Thank you very much, Cortez Castillo mD
[2017-06-09] MEDS: INSULIN SLIDING SCALE (NOVOLOG) 1 VIAL SQ SCH ×4 (07:13→22:08)
[2017-06-09 07:35] LABS: ALBUMIN 2.2 g/dl (3.4-5.0); ANION GAP 7 (8-16); BILIRUBIN,TOTAL 0.2 mg/dL (0.2-1.0); BLOOD UREA NITROGEN 54 mg/dL (7-18); CALCIUM 7.6 mg/dL (8.5-10.1); CHLORIDE 108 mmol/L (98-107); CO2 25 mmol/L (21-32); CREATININE 1.8 mg/dL (0.7-1.3); GLUCOSE,RANDOM 122 mg/dL (74-106); POTASSIUM 5.2 mmol/L (3.5-5.1); SGOT/AST 8 U/L (15-37); SGPT/ALT 17 U/L (12-78); SODIUM 140 mmol/L (136-145); TOT PROT 5.6 g/dl (6.4-8.2)
[2017-06-09 07:36] LABS: ALK PHOS 66 U/L (45-117)
[2017-06-09] MEDS: amLODIPine BESYLATE 5 MG TABLET (FP) PO SCH (09:52)
[2017-06-09] MEDS: ASPIRIN 81 MG CHEWABLE TABLETS PO SCH (09:52)
[2017-06-09] MEDS: CARVEDILOL 12.5 MG TABLET (FP) PO SCH ×2 (09:52→22:08)
[2017-06-09] MEDS: CEFTRIAXONE IN IS-OSM DEXTROSE 2 GM/50 ML BAG IVPB SCH (09:52)
[2017-06-09] MEDS: CLOPIDOGREL BISULFATE 75 MG TABLET (FP) PO SCH (09:52)
[2017-06-09] MEDS: ACETAMINOPHEN 325 MG TABLET (FP) PO PRN ×2 (09:56→23:28)
[2017-06-09] MEDS ORDERED: FUROSEMIDE 40 MG/4 ML INJECTABLE VIAL IVPB ONE (12:02)
--- NOTE | 2017-06-09 12:07 | PN ---
Progress Note (short form) - Note Progress Note: Renal follow up for VANDA Pt seen and examined at the bedside reports tenderness in b/l LE no sob, chest pain no fever, chills Vital Signs Temperature 97.6 F 06/09/17 08:00 Pulse Rate 88 06/09/17 08:00 Respiratory Rate 18 06/09/17 08:00 Blood Pressure 134/64 06/09/17 08:00 O2 Sat by Pulse Oximetry (%) 95 06/09/17 08:36 Intake & Output 06/06/17 06/07/17 06/08/17 06/09/17 23:59 23:59 23:59 23:59 Intake Total 1200 675 650 400 Output Total 2110 1935 1100 1900 Balance -910 -1260 -450 -1500 Weight 89.414 kg 90.945 kg 90.265 kg 90.718 kg NAD awake and alert CTA left leg erythema improving + edema CBC, BMP 06/08/17 06:20 06/09/17 06:50 Current Medications Acetaminophen (Tylenol -) 650 mg PO Q6H PRN PRN Reason: PAIN Last Admin: 06/09/17 09:56 Dose: 650 mg Amlodipine Besylate (Norvasc -) 5 mg PO DAILY [facility] Last Admin: 06/09/17 09:52 Dose: 5 mg Aspirin (Asa -) 81 mg PO DAILY [facility] Last Admin: 06/09/17 09:52 Dose: 81 mg Carvedilol (Coreg -) 12.5 mg PO BID [facility] Last Admin: 06/09/17 09:52 Dose: 12.5 mg Clopidogrel Bisulfate (Plavix -) 75 mg PO DAILY [facility] Last Admin: 06/09/17 09:52 Dose: 75 mg Furosemide (Lasix Injection -) 80 mg IVPB ONCE ONE Stop: 06/09/17 12:03 Furosemide (Lasix Injection -) 40 mg IVPUSH BID@0600,1400 [facility] CEFTRIAXONE IN IS-OSM DEXTROSE (Ceftriaxone 2 Gm-D5w Bag) 2 gm in 50 mls @ 100 mls/hr IVPB DAILY [facility] Last Admin: 06/09/17 09:52 Dose: 100 mls/hr Insulin Aspart (Novolog Vial Sliding Scale -) 1 vial SQ ACHS [facility] PRN Reason: Protocol Last Admin: 06/09/17 11:48 Dose: 2 units 56 year old gentleman with PMhx of CKD (baseline Cr 1.4-1.8), Hypertension, DM, HLD, Diastolic HF, PVD s/p bypass, CAD, COPD, CVA who presented with lower extremity swelling and redness and noted to have Cr of 2.7. #Acute on Chronic Renal Insufficiency Renal function improving toward baseline but pt has significant lower extremity edema will give Lasix 80mg IVPB x 1 today and start Lasix 40mg IV BID tomorrow trend renal function, edema and weights #LE cellulitis/Edema/Collection continue abx as per ID s/p drainage of fluid collection #Anemia acute blood loss + Anemia of chronic disease iron saturation is low but would defer IV iron given acute infection transfuse PRBC for Hgb less then 7 Prakash Garcia DO
[2017-06-09 12:14] LABS: BASO % 1.1 % (0-2.0); EOS % 5.2 % (0-4.5); HEMATOCRIT 24.8 % (35.4-49); HEMOGLOBIN 8.3 GM/dL (11.7-16.9); LYMPH % 11.8 % (8-40); MCH 31.1 pg (25.7-33.7); MCHC 33.4 g/dl (32.0-35.9); MEAN CELL VOLUME 93.1 fl (80-96); MEAN PLT VOLUME 8.1 fl (7.5-11.1); MONO % 8.8 % (3.8-10.2); NEUT % 73.1 % (42.8-82.8); PLATELET COUNT 223 K/MM3 (134-434); RBC 2.66 M/mm3 (4.00-5.60); RDW 15.8 % (11.9-15.9); WHITE BLOOD COUNT 7.4 K/mm3 (4.0-10.0)
--- NOTE | 2017-06-09 12:27 | PN ---
Progress Note (short form) - Note Progress Note: Pt seen/ examined . comfortable All follow-ups noted I also discussed with Dr. Snyder today--- will need antibiotics Patient denies chest pain or shortness of breath dressing changed today Vital Signs Temp 97.6 F 06/09/17 08:00 Pulse 88 06/09/17 08:00 Resp 18 06/09/17 08:00 BP 134/64 06/09/17 08:00 Pulse Ox 95 06/09/17 08:36 Intake & Output 06/08/17 06/09/17 06/09/17 23:59 11:59 23:59 Intake Total 650 400 Output Total 900 1900 Balance -250 -1500 Weight 200 lb Intake: IVPB 50 Oral 600 400 Output: Urine 900 1900 Void 900 1900 Other: Voiding Method Urinal Urinal Bowel Movement Yes # Bowel Movements 1 [facility] Active Medications Acetaminophen (Tylenol -) 650 mg PO Q6H PRN PRN Reason: PAIN Last Admin: 06/09/17 09:56 Dose: 650 mg Amlodipine Besylate (Norvasc -) 5 mg PO DAILY [facility] Last Admin: 06/09/17 09:52 Dose: 5 mg Aspirin (Asa -) 81 mg PO DAILY [facility] Last Admin: 06/09/17 09:52 Dose: 81 mg Atorvastatin Calcium (Lipitor -) 20 mg PO HS [facility] Carvedilol (Coreg -) 12.5 mg PO BID [facility] Last Admin: 06/09/17 09:52 Dose: 12.5 mg Clopidogrel Bisulfate (Plavix -) 75 mg PO DAILY [facility] Last Admin: 06/09/17 09:52 Dose: 75 mg Furosemide (Lasix Injection -) 40 mg IVPUSH BID@0600,1400 [facility] CEFTRIAXONE IN IS-OSM DEXTROSE (Ceftriaxone 2 Gm-D5w Bag) 2 gm in 50 mls @ 100 mls/hr IVPB DAILY [facility] Last Admin: 06/09/17 09:52 Dose: 100 mls/hr Insulin Aspart (Novolog Vial Sliding Scale -) 1 vial SQ ACHS [facility] PRN Reason: Protocol Last Admin: 06/09/17 11:48 Dose: 2 units CBC, BMP 06/09/17 06:50 Physical exam Constitutional: Yes: No Distress/comfortable Cardiovascular: Yes: Regular Rate and Rhythm Respiratory: Yes:diminished at bases Gastrointestinal: Yes: Normal Bowel Sounds, Soft, Abdomen, Obese. No: Distention, Tenderness Extremities: Yes: Other (rt leg dressing in place) Edema: Yes assessment and plan Clinically stable Problems as listed Antibiotics Got 1 unit of RBC yesterday CBC pending Carotid endardectmy in consideration--likely early next week I had discussed with Dr. Castillo about same--few days ago--- he is strongly recommends We will discuss with cardiology as well as Dr. Ventura , Problem List - Problems (1) Arterial insufficiency of lower extremity Code(s): I73.9 - PERIPHERAL VASCULAR DISEASE, UNSPECIFIED (2) CAD (coronary artery disease) Code(s): I25.10 - ATHSCL HEART DISEASE OF [place] CORONARY ARTERY W/O ANG PCTRS Qualifiers: Coronary Disease-Associated Artery/Lesion type: [place] artery [place] vs. transplanted heart: [place] heart Associated angina: without angina Qualified Code(s): I25.10 - Atherosclerotic heart disease of [place] coronary artery without angina pectoris (3) Cellulitis of left leg Code(s): L03.116 - CELLULITIS OF LEFT LOWER LIMB (4) Chronic renal insufficiency Code(s): N18.9 - CHRONIC KIDNEY DISEASE, UNSPECIFIED (5) Diabetes Code(s): E11.9 - TYPE 2 DIABETES MELLITUS WITHOUT COMPLICATIONS Qualifiers: Diabetes mellitus type: type 2 Diabetes mellitus complication detail: with nephropathy
--- NOTE | 2017-06-09 13:25 | PN ---
Progress Note, Physician History of Present Illness: Awake, alert. No c/o pain at site of R thigh I&D Afebrile WBC WNL Azotemia improved ESR 123 CRP 2.4 - Current Medication List Current Medications: Active Medications Acetaminophen (Tylenol -) 650 mg PO Q6H PRN PRN Reason: PAIN Last Admin: 06/09/17 09:56 Dose: 650 mg Amlodipine Besylate (Norvasc -) 5 mg PO DAILY [facility] Last Admin: 06/09/17 09:52 Dose: 5 mg Aspirin (Asa -) 81 mg PO DAILY [facility] Last Admin: 06/09/17 09:52 Dose: 81 mg Atorvastatin Calcium (Lipitor -) 20 mg PO HS [facility] Carvedilol (Coreg -) 12.5 mg PO BID [facility] Last Admin: 06/09/17 09:52 Dose: 12.5 mg Clopidogrel Bisulfate (Plavix -) 75 mg PO DAILY [facility] Last Admin: 06/09/17 09:52 Dose: 75 mg Furosemide (Lasix Injection -) 40 mg IVPUSH BID@0600,1400 [facility] CEFTRIAXONE IN IS-OSM DEXTROSE (Ceftriaxone 2 Gm-D5w Bag) 2 gm in 50 mls @ 100 mls/hr IVPB DAILY [facility] Last Admin: 06/09/17 09:52 Dose: 100 mls/hr Insulin Aspart (Novolog Vial Sliding Scale -) 1 vial SQ ACHS [facility] PRN Reason: Protocol Last Admin: 06/09/17 11:48 Dose: 2 units - Objective Vital Signs: Vital Signs Temperature 97.6 F 06/09/17 08:00 Pulse Rate 88 06/09/17 08:00 Respiratory Rate 18 06/09/17 08:00 Blood Pressure 134/64 06/09/17 08:00 O2 Sat by Pulse Oximetry (%) 95 06/09/17 08:36 Constitutional: Yes: No Distress Eyes: Yes: Conjunctiva Clear Cardiovascular: Yes: Regular Rate and Rhythm, S1, S2 Respiratory: Yes: CTA Bilaterally Gastrointestinal: Yes: Normal Bowel Sounds, Soft. No: Tenderness Extremities: Yes: Other (L LE erythema improved. + R thigh wound) Labs: CBC, BMP 06/09/17 12:00 06/09/17 06:50 INR, PTT INR 1.20 (0.82-1.09) H 06/01/17 05:30 Assessment/Plan Bilateral LE cellulitis improved Renal failure Peripheral vascular disease Viry-graft fluid collection/ infected seroma Continue ceftriaxone Will need tunnel catheter for outpatient antibiotic therapy
[2017-06-09] MEDS: HEPARIN NA (PORCINE) 5,000 UNITS/ML 1ML VIAL SQ SCH (22:08)
[2017-06-09] MEDS: ATORVASTATIN CA 20 MG TABLET (FP) PO SCH (22:08)
[2017-06-10] MEDS: FUROSEMIDE 40 MG/4 ML INJECTABLE VIAL IVPUSH SCH ×2 (05:50→14:27)
[2017-06-10] MEDS: INSULIN SLIDING SCALE (NOVOLOG) 1 VIAL SQ SCH ×5 (06:00→21:33)
[2017-06-10 08:40] LABS: ALBUMIN 2.4 g/dl (3.4-5.0); ANION GAP 7 (8-16); BILIRUBIN,TOTAL 0.4 mg/dL (0.2-1.0); BLOOD UREA NITROGEN 52 mg/dL (7-18); CALCIUM 8.2 mg/dL (8.5-10.1); CHLORIDE 106 mmol/L (98-107); CO2 25 mmol/L (21-32); CREATININE 1.8 mg/dL (0.7-1.3); GLUCOSE,RANDOM 103 mg/dL (74-106); PHOSPHOROUS 4.7 mg/dL (2.5-4.9); POTASSIUM 5.4 mmol/L (3.5-5.1); SGOT/AST 12 U/L (15-37); SGPT/ALT 19 U/L (12-78); SODIUM 138 mmol/L (136-145)
[2017-06-10 08:42] LABS: ALK PHOS 77 U/L (45-117); TOT PROT 6.5 g/dl (6.4-8.2)
[2017-06-10 08:45] LABS: BASO % 0.9 % (0-2.0); EOS % 6.2 % (0-4.5); HEMATOCRIT 26.8 % (35.4-49); HEMOGLOBIN 8.7 GM/dL (11.7-16.9); LYMPH % 15.9 % (8-40); MCH 30.7 pg (25.7-33.7); MCHC 32.7 g/dl (32.0-35.9); MEAN CELL VOLUME 93.9 fl (80-96); MEAN PLT VOLUME 8.8 fl (7.5-11.1); MONO % 8.1 % (3.8-10.2); NEUT % 68.9 % (42.8-82.8); PLATELET COUNT 252 K/MM3 (134-434); RBC 2.85 M/mm3 (4.00-5.60); RDW 15.3 % (11.9-15.9); WHITE BLOOD COUNT 6.9 K/mm3 (4.0-10.0)
--- NOTE | 2017-06-10 09:30 | PN ---
Progress Note, Physician - Current Medication List Current Medications: Active Medications Acetaminophen (Tylenol -) 650 mg PO Q6H PRN PRN Reason: PAIN Last Admin: 06/09/17 23:28 Dose: 650 mg Amlodipine Besylate (Norvasc -) 5 mg PO DAILY [facility] Last Admin: 06/09/17 09:52 Dose: 5 mg Aspirin (Asa -) 81 mg PO DAILY [facility] Last Admin: 06/09/17 09:52 Dose: 81 mg Atorvastatin Calcium (Lipitor -) 20 mg PO HS [facility] Last Admin: 06/09/17 22:08 Dose: 20 mg Carvedilol (Coreg -) 12.5 mg PO BID [facility] Last Admin: 06/09/17 22:08 Dose: 12.5 mg Clopidogrel Bisulfate (Plavix -) 75 mg PO DAILY [facility] Last Admin: 06/09/17 09:52 Dose: 75 mg Furosemide (Lasix Injection -) 40 mg IVPUSH BID@0600,1400 [facility] Last Admin: 06/10/17 05:50 Dose: 40 mg Heparin Sodium (Porcine) (Heparin -) 5,000 unit SQ BID [facility] Last Admin: 06/09/17 22:08 Dose: 5,000 unit CEFTRIAXONE IN IS-OSM DEXTROSE (Ceftriaxone 2 Gm-D5w Bag) 2 gm in 50 mls @ 100 mls/hr IVPB DAILY [facility] Last Admin: 06/09/17 09:52 Dose: 100 mls/hr Insulin Aspart (Novolog Vial Sliding Scale -) 1 vial SQ ACHS [facility] PRN Reason: Protocol Last Admin: 06/10/17 06:00 Dose: Not Given - Objective Vital Signs: Vital Signs Temperature 98 F 06/10/17 08:00 Pulse Rate 82 06/10/17 09:00 Respiratory Rate 18 06/10/17 09:00 Blood Pressure 120/53 06/10/17 09:00 O2 Sat by Pulse Oximetry (%) 96 06/09/17 21:00 Eyes: Yes: WNL, Conjunctiva Clear, EOM Intact HENT: Yes: WNL, Atraumatic, Normocephalic Neck: Yes: WNL, Supple, Trachea Midline Cardiovascular: Yes: WNL, Regular Rate and Rhythm Respiratory: Yes: WNL, Regular, CTA Bilaterally Gastrointestinal: Yes: WNL, Normal Bowel Sounds Genitourinary: Yes: WNL Musculoskeletal: Yes: WNL Extremities: Yes: WNL, Erythema Edema: Yes Integumentary: Yes: WNL Neurological: Yes: WNL, Alert, Oriented ...Motor Strength: WNL Psychiatric: Yes: WNL Labs: CBC, BMP 06/10/17 06:55 06/10/17 06:55 INR, PTT INR 1.20 (0.82-1.09) H 06/01/17 05:30 Assessment/Plan LE cellulitis Acute on chronic diastolic CHF Severe PAD s/p RLE bypass in January 2017 CAD s/p PCI Acute on chronic renal failure. possibly triggered by decompensated diastolic CHF IDDM Prior CVA Anemia CRI REC: Currently euvolemic. Holding additional Lasix Can dose Lasix prn at this time No further chest pain, cardiac enzymes wnl recent echo and nuclear stress showing no ischemia, plan has been to manage his atypical chest pain conservatively/medically.
--- NOTE | 2017-06-10 10:16 | PN ---
Progress Note (short form) - Note Progress Note: VSS Thigh wound with serous drainage. Cardiology note reviewed, not cleared for general anesthesia yet. Ideally, carotid endarterectomy should be scheduled after healing of leg wound to decrease risk of infection at the surgical site. If he remains asymptomatic surgery should be scheduled electively as soon as leg wound has closed.
[2017-06-10] MEDS ORDERED: PT OWN MED DRAWER 7, Y5N ONE (10:17)
[2017-06-10] MEDS: CEFTRIAXONE IN IS-OSM DEXTROSE 2 GM/50 ML BAG IVPB SCH (10:31)
[2017-06-10] MEDS: ASPIRIN 81 MG CHEWABLE TABLETS PO SCH (10:32)
[2017-06-10] MEDS: CARVEDILOL 12.5 MG TABLET (FP) PO SCH ×2 (10:32→21:33)
[2017-06-10] MEDS: HEPARIN NA (PORCINE) 5,000 UNITS/ML 1ML VIAL SQ SCH ×2 (10:32→21:33)
[2017-06-10] MEDS: CLOPIDOGREL BISULFATE 75 MG TABLET (FP) PO SCH (10:32)
[2017-06-10] MEDS: amLODIPine BESYLATE 5 MG TABLET (FP) PO SCH (10:32)
--- NOTE | 2017-06-10 10:59 | PN ---
Progress Note, Physician Chief Complaint: no oozing from dressing no complaints feels well - Current Medication List Current Medications: Active Medications Acetaminophen (Tylenol -) 650 mg PO Q6H PRN PRN Reason: PAIN Last Admin: 06/09/17 23:28 Dose: 650 mg Amlodipine Besylate (Norvasc -) 5 mg PO DAILY [facility] Last Admin: 06/10/17 10:32 Dose: 5 mg Aspirin (Asa -) 81 mg PO DAILY [facility] Last Admin: 06/10/17 10:32 Dose: 81 mg Atorvastatin Calcium (Lipitor -) 20 mg PO HS [facility] Last Admin: 06/09/17 22:08 Dose: 20 mg Carvedilol (Coreg -) 12.5 mg PO BID [facility] Last Admin: 06/10/17 10:32 Dose: 12.5 mg Clopidogrel Bisulfate (Plavix -) 75 mg PO DAILY [facility] Last Admin: 06/10/17 10:32 Dose: 75 mg Furosemide (Lasix Injection -) 40 mg IVPUSH BID@0600,1400 [facility] Last Admin: 06/10/17 05:50 Dose: 40 mg Heparin Sodium (Porcine) (Heparin -) 5,000 unit SQ BID [facility] Last Admin: 06/10/17 10:32 Dose: 5,000 unit CEFTRIAXONE IN IS-OSM DEXTROSE (Ceftriaxone 2 Gm-D5w Bag) 2 gm in 50 mls @ 100 mls/hr IVPB DAILY [facility] Last Admin: 06/10/17 10:31 Dose: 100 mls/hr Insulin Aspart (Novolog Vial Sliding Scale -) 1 vial SQ ACHS [facility] PRN Reason: Protocol Last Admin: 06/10/17 06:00 Dose: Not Given - Objective Vital Signs: Vital Signs Temperature 98 F 06/10/17 08:00 Pulse Rate 82 06/10/17 09:00 Respiratory Rate 18 06/10/17 09:00 Blood Pressure 120/53 06/10/17 09:00 O2 Sat by Pulse Oximetry (%) 97 06/10/17 09:00 Constitutional: Yes: No Distress Cardiovascular: Yes: Regular Rate and Rhythm Respiratory: Yes: CTA Bilaterally Gastrointestinal: Yes: Normal Bowel Sounds, Soft. No: Tenderness Extremities: Yes: Other (rt leg dressing in place) Edema: Yes Labs: CBC, BMP 06/10/17 06:55 06/10/17 06:55 INR, PTT INR 1.20 (0.82-1.09) H 06/01/17 05:30 Problem List - Problems (1) ASHD (arteriosclerotic heart disease) Code(s): I25.10 - ATHSCL HEART DISEASE OF [place] CORONARY ARTERY W/O ANG PCTRS (2) Acute renal insufficiency Code(s): N28.9 - DISORDER OF KIDNEY AND URETER, UNSPECIFIED (3) Anemia Code(s): D64.9 - ANEMIA, UNSPECIFIED (4) Abscess of leg, right Code(s): L02.415 - CUTANEOUS ABSCESS OF RIGHT LOWER LIMB Assessment/Plan plan Antibiotics per ID s/p I &D on Lasix renal function stable spoke with Surgeon-- Dr Humphrey, pt will need to get leg wound healed completely before carotid endarcterectomy. Discussed with pt-- he will need termite technician antibiotics per ID -- pt willing to be transferred to rehab for wound care and termite technician antibiotics and will undergo carotid endarcterectomy done afterwards electively.
[2017-06-10] MEDS: ACETAMINOPHEN 325 MG TABLET (FP) PO PRN (11:40)
[2017-06-10] MEDS ORDERED: INSULIN (NOVOLOG) ASPART 100 UNITS/ML 10ML VIAL ONE ×2 (12:49→21:22)
--- NOTE | 2017-06-10 13:47 | PN ---
Progress Note, Physician Chief Complaint: The patient seen in his bed. General status unchanged. Dr. Humphrey's f/u noted. Miantains good urine output. On IV Heparin. - Current Medication List Current Medications: Active Medications Acetaminophen (Tylenol -) 650 mg PO Q6H PRN PRN Reason: PAIN Last Admin: 06/10/17 11:40 Dose: 650 mg Amlodipine Besylate (Norvasc -) 5 mg PO DAILY [facility] Last Admin: 06/10/17 10:32 Dose: 5 mg Aspirin (Asa -) 81 mg PO DAILY [facility] Last Admin: 06/10/17 10:32 Dose: 81 mg Atorvastatin Calcium (Lipitor -) 20 mg PO HS [facility] Last Admin: 06/09/17 22:08 Dose: 20 mg Carvedilol (Coreg -) 12.5 mg PO BID [facility] Last Admin: 06/10/17 10:32 Dose: 12.5 mg Clopidogrel Bisulfate (Plavix -) 75 mg PO DAILY [facility] Last Admin: 06/10/17 10:32 Dose: 75 mg Furosemide (Lasix Injection -) 40 mg IVPUSH BID@0600,1400 [facility] Last Admin: 06/10/17 05:50 Dose: 40 mg Heparin Sodium (Porcine) (Heparin -) 5,000 unit SQ BID [facility] Last Admin: 06/10/17 10:32 Dose: 5,000 unit CEFTRIAXONE IN IS-OSM DEXTROSE (Ceftriaxone 2 Gm-D5w Bag) 2 gm in 50 mls @ 100 mls/hr IVPB DAILY [facility] Last Admin: 06/10/17 10:31 Dose: 100 mls/hr Insulin Aspart (Novolog Vial Sliding Scale -) 1 vial SQ ACHS [facility] PRN Reason: Protocol Last Admin: 06/10/17 12:57 Dose: 4 units - Objective Vital Signs: Vital Signs Temperature 98 F 06/10/17 08:00 Pulse Rate 82 06/10/17 09:00 Respiratory Rate 18 06/10/17 09:00 Blood Pressure 120/53 06/10/17 09:00 O2 Sat by Pulse Oximetry (%) 97 06/10/17 09:00 Constitutional: Yes: Calm, Mild Distress Eyes: Yes: Conjunctiva Clear HENT: Yes: Normocephalic Cardiovascular: Yes: S1, S2 Respiratory: Yes: CTA Bilaterally, Diminished Gastrointestinal: Yes: Normal Bowel Sounds, Soft Genitourinary: No: Bladder Distention Edema: Yes Labs: CBC, BMP 06/10/17 06:55 06/10/17 06:55 INR, PTT INR 1.20 (0.82-1.09) H 06/01/17 05:30 Problem List - Problems (1) Abscess of leg, right Code(s): L02.415 - CUTANEOUS ABSCESS OF RIGHT LOWER LIMB (2) ASHD (arteriosclerotic heart disease) Code(s): I25.10 - ATHSCL HEART DISEASE OF [place] CORONARY ARTERY W/O ANG PCTRS (3) Acute renal insufficiency Code(s): N28.9 - DISORDER OF KIDNEY AND URETER, UNSPECIFIED (4) Anemia Code(s): D64.9 - ANEMIA, UNSPECIFIED (5) Arterial insufficiency of lower extremity Code(s): I73.9 - PERIPHERAL VASCULAR DISEASE, UNSPECIFIED (6) CKD (chronic kidney disease) Code(s): N18.9 - CHRONIC KIDNEY DISEASE, UNSPECIFIED Qualifiers: Chronic kidney disease stage: unspecified stage Qualified Code(s): N18.9 - Chronic kidney disease, unspecified (7) Diabetes mellitus, insulin dependent (IDDM), controlled Code(s): E10.9 - TYPE 1 DIABETES MELLITUS WITHOUT COMPLICATIONS (8) Diastolic CHF Code(s): I50.30 - UNSPECIFIED DIASTOLIC (CONGESTIVE) HEART FAILURE (9) Edema Code(s): R60.9 - EDEMA, UNSPECIFIED Qualifiers: Edema type: unspecified Qualified Code(s): R60.9 - Edema, unspecified (10) Hyperkalemia Code(s): E87.5 - HYPERKALEMIA (11) Hyperlipidemia Code(s): E78.5 - HYPERLIPIDEMIA, UNSPECIFIED (12) PAD (peripheral artery disease) Code(s): I73.9 - PERIPHERAL VASCULAR DISEASE, UNSPECIFIED (13) Stasis dermatitis of left lower extremity due to peripheral venous hypertension Code(s): I87.322 - CHRONIC VENOUS HYPERTENSION W INFLAMMATION OF L LOW EXTREM (14) Ulcer Code(s): L98.499 - NON-PRESSURE CHRONIC ULCER OF SKIN OF SITES W UNSP SEVERITY Assessment/Plan 56 year old gentleman with Past medical history of CKD (baseline Cr 1.4-1.8), Hypertension, DM, HLD, Diastolic HF, PVD s/p bypass, CAD, COPD, CVA who presented with lower extremity swelling and redness. S/P I and D of abscess in the groin. Acute on Chronic Renal Insufficiency Renal function is overall improved and stable. Mild Hyperkalemia. ? Heparin related. Will not prescribe any specific therapy. No evidence of overt bleeding. Of note is Eosinophilia. ? Allergic Interstitial Nephritis. Will watch. Pt still with pain in the legs. The LE edema persists. LE cellulitis/Edema/Collection...on Ceftriaxone Will continue abx as per ID Will monitor the renal functions with you. Thank you. Susie Brooke MD
[2017-06-10 18:23] LABS: URINE APPEARANCE CLEAR; URINE BILIRUBIN NEGATIVE (NEGATIVE); URINE BLOOD NEGATIVE (NEGATIVE); URINE COLOR COLORLESS; URINE GLUCOSE (UA) 1+ (NEGATIVE); URINE KETONE NEGATIVE (NEGATIVE); URINE LEUK ESTERASE NEGATIVE (NEGATIVE); URINE NITRITE NEGATIVE (NEGATIVE); URINE UROBILINOGEN NEGATIVE mg/dL (0.2-1.0)
[2017-06-10 18:33] LABS: URINE PROTEIN 2+ (NEGATIVE)
[2017-06-10 18:35] LABS: URINE MUCUS RARE
[2017-06-10] MEDS: ATORVASTATIN CA 20 MG TABLET (FP) PO SCH (21:32)
[2017-06-11] MEDS: ACETAMINOPHEN 325 MG TABLET (FP) PO PRN ×2 (02:33→17:13)
[2017-06-11] MEDS: FUROSEMIDE 40 MG/4 ML INJECTABLE VIAL IVPUSH SCH ×2 (06:21→15:16)
[2017-06-11] MEDS: INSULIN SLIDING SCALE (NOVOLOG) 1 VIAL SQ SCH ×4 (06:21→21:29)
[2017-06-11 08:07] LABS: CHLORIDE 105 mmol/L (98-107); POTASSIUM 5.5 mmol/L (3.5-5.1); SODIUM 137 mmol/L (136-145)
[2017-06-11 08:13] LABS: ALBUMIN 2.4 g/dl (3.4-5.0); ALK PHOS 78 U/L (45-117); ANION GAP 6 (8-16); BILIRUBIN,TOTAL 0.4 mg/dL (0.2-1.0); BLOOD UREA NITROGEN 60 mg/dL (7-18); CALCIUM 8.1 mg/dL (8.5-10.1); CO2 26 mmol/L (21-32); GLUCOSE,RANDOM 124 mg/dL (74-106); SGOT/AST 9 U/L (15-37); SGPT/ALT 17 U/L (12-78); TOT PROT 6.2 g/dl (6.4-8.2)
--- NOTE | 2017-06-11 09:21 | PN ---
Progress Note, Physician - Current Medication List Current Medications: Active Medications Acetaminophen (Tylenol -) 650 mg PO Q6H PRN PRN Reason: PAIN Last Admin: 06/11/17 02:33 Dose: 650 mg Amlodipine Besylate (Norvasc -) 5 mg PO DAILY [facility] Last Admin: 06/10/17 10:32 Dose: 5 mg Aspirin (Asa -) 81 mg PO DAILY [facility] Last Admin: 06/10/17 10:32 Dose: 81 mg Atorvastatin Calcium (Lipitor -) 20 mg PO HS [facility] Last Admin: 06/10/17 21:32 Dose: 20 mg Carvedilol (Coreg -) 12.5 mg PO BID [facility] Last Admin: 06/10/17 21:33 Dose: 12.5 mg Clopidogrel Bisulfate (Plavix -) 75 mg PO DAILY [facility] Last Admin: 06/10/17 10:32 Dose: 75 mg Furosemide (Lasix Injection -) 40 mg IVPUSH BID@0600,1400 [facility] Last Admin: 06/11/17 06:21 Dose: 40 mg Heparin Sodium (Porcine) (Heparin -) 5,000 unit SQ BID [facility] Last Admin: 06/10/17 21:33 Dose: 5,000 unit CEFTRIAXONE IN IS-OSM DEXTROSE (Ceftriaxone 2 Gm-D5w Bag) 2 gm in 50 mls @ 100 mls/hr IVPB DAILY [facility] Last Admin: 06/10/17 10:31 Dose: 100 mls/hr Insulin Aspart (Novolog Vial Sliding Scale -) 1 vial SQ ACHS [facility] PRN Reason: Protocol Last Admin: 06/11/17 06:21 Dose: Not Given Sodium Polystyrene Sulfonate (Kayexalate -) 30 gm PO ONCE ONE Stop: 06/11/17 09:18 - Objective Vital Signs: Vital Signs Temperature 98.0 F 06/11/17 05:56 Pulse Rate 80 06/11/17 05:56 Respiratory Rate 20 06/11/17 05:56 Blood Pressure 134/57 06/11/17 05:56 O2 Sat by Pulse Oximetry (%) 97 06/10/17 21:00 Eyes: Yes: WNL, Conjunctiva Clear, EOM Intact HENT: Yes: WNL, Atraumatic, Normocephalic Neck: Yes: WNL, Supple, Trachea Midline Cardiovascular: Yes: WNL, Regular Rate and Rhythm Respiratory: Yes: WNL, Regular, CTA Bilaterally Gastrointestinal: Yes: WNL, Normal Bowel Sounds Genitourinary: Yes: WNL Musculoskeletal: Yes: WNL Extremities: Yes: WNL, Erythema Edema: Yes Edema: LLE: 2+, RLE: 2+ Integumentary: Yes: WNL Neurological: Yes: WNL, Alert, Oriented ...Motor Strength: WNL Psychiatric: Yes: WNL Labs: CBC, BMP 06/10/17 06:55 06/11/17 07:00 INR, PTT INR 1.20 (0.82-1.09) H 06/01/17 05:30 Assessment/Plan LE cellulitis Acute on chronic diastolic CHF Severe PAD s/p RLE bypass in January 2017 CAD s/p PCI Acute on chronic renal failure. possibly triggered by decompensated diastolic CHF IDDM Prior CVA Anemia CRI REC: Currently euvolemic. Holding additional Lasix Can dose Lasix prn at this time No further chest pain, cardiac enzymes wnl recent echo and nuclear stress showing no ischemia, plan has been to manage his atypical chest pain conservatively/medically.
[2017-06-11] MEDS ORDERED: SODIUM POLYSTYRENE SULFONATE 15 GM/60 ML BOTTLE PO ONE (09:30)
[2017-06-11] MEDS: amLODIPine BESYLATE 5 MG TABLET (FP) PO SCH (10:19)
[2017-06-11] MEDS: ASPIRIN 81 MG CHEWABLE TABLETS PO SCH (10:20)
[2017-06-11] MEDS: CARVEDILOL 12.5 MG TABLET (FP) PO SCH ×2 (10:20→21:29)
[2017-06-11] MEDS: CEFTRIAXONE IN IS-OSM DEXTROSE 2 GM/50 ML BAG IVPB SCH (10:20)
[2017-06-11] MEDS: CLOPIDOGREL BISULFATE 75 MG TABLET (FP) PO SCH (10:21)
[2017-06-11] MEDS: HEPARIN NA (PORCINE) 5,000 UNITS/ML 1ML VIAL SQ SCH ×2 (10:21→21:28)
--- NOTE | 2017-06-11 11:52 | PN ---
Progress Note, Physician Chief Complaint: no oozing from dressing no complaints feels well - Current Medication List Current Medications: Active Medications Acetaminophen (Tylenol -) 650 mg PO Q6H PRN PRN Reason: PAIN Last Admin: 06/11/17 02:33 Dose: 650 mg Amlodipine Besylate (Norvasc -) 5 mg PO DAILY [facility] Last Admin: 06/11/17 10:19 Dose: 5 mg Aspirin (Asa -) 81 mg PO DAILY [facility] Last Admin: 06/11/17 10:20 Dose: 81 mg Atorvastatin Calcium (Lipitor -) 20 mg PO HS [facility] Last Admin: 06/10/17 21:32 Dose: 20 mg Carvedilol (Coreg -) 12.5 mg PO BID [facility] Last Admin: 06/11/17 10:20 Dose: 12.5 mg Clopidogrel Bisulfate (Plavix -) 75 mg PO DAILY [facility] Last Admin: 06/11/17 10:21 Dose: 75 mg Furosemide (Lasix Injection -) 40 mg IVPUSH BID@0600,1400 [facility] Last Admin: 06/11/17 06:21 Dose: 40 mg Heparin Sodium (Porcine) (Heparin -) 5,000 unit SQ BID [facility] Last Admin: 06/11/17 10:21 Dose: 5,000 unit CEFTRIAXONE IN IS-OSM DEXTROSE (Ceftriaxone 2 Gm-D5w Bag) 2 gm in 50 mls @ 100 mls/hr IVPB DAILY [facility] Last Admin: 06/11/17 10:20 Dose: 100 mls/hr Insulin Aspart (Novolog Vial Sliding Scale -) 1 vial SQ ACHS [facility] PRN Reason: Protocol Last Admin: 06/11/17 11:46 Dose: 2 units - Objective Vital Signs: Vital Signs Temperature 98.3 F 06/11/17 10:00 Pulse Rate 69 06/11/17 10:00 Respiratory Rate 20 06/11/17 10:00 Blood Pressure 131/49 06/11/17 10:00 O2 Sat by Pulse Oximetry (%) 97 06/10/17 21:00 Constitutional: Yes: No Distress Cardiovascular: Yes: Regular Rate and Rhythm Respiratory: Yes: Diminished Gastrointestinal: Yes: Normal Bowel Sounds, Soft, Abdomen, Obese. No: Tenderness Edema: Yes Edema: LLE: 2+, RLE: 2+ Labs: CBC, BMP 06/10/17 06:55 06/11/17 07:00 INR, PTT INR 1.20 (0.82-1.09) H 06/01/17 05:30 Problem List - Problems (1) ASHD (arteriosclerotic heart disease) Code(s): I25.10 - ATHSCL HEART DISEASE OF [place] CORONARY ARTERY W/O ANG PCTRS (2) Acute renal insufficiency Code(s): N28.9 - DISORDER OF KIDNEY AND URETER, UNSPECIFIED (3) Anemia Code(s): D64.9 - ANEMIA, UNSPECIFIED (4) Abscess of leg, right Code(s): L02.415 - CUTANEOUS ABSCESS OF RIGHT LOWER LIMB Assessment/Plan plan Antibiotics per ID s/p I &D on Lasix renal function stable spoke with Surgeon-- Dr Humphrey, pt will need to get leg wound healed completely before carotid endarcterectomy. Discussed with pt-- he will need care home antibiotics per ID -- pt willing to be transferred to rehab for wound care and care home antibiotics and will undergo carotid endarcterectomy done afterwards electively. will arrange for picc line upon discharge will need to know duration of antibiotics ID follow up
[2017-06-11] MEDS ORDERED: PICC LINE 8 ML FLUSH PROTOCOL IVPUSH PRN (12:10)
[2017-06-11 14:02] LABS: BASO % 0.7 % (0-2.0); EOS % 6.7 % (0-4.5); HEMATOCRIT 26.1 % (35.4-49); HEMOGLOBIN 8.6 GM/dL (11.7-16.9); LYMPH % 14.5 % (8-40); MCH 30.6 pg (25.7-33.7); MCHC 33.1 g/dl (32.0-35.9); MEAN CELL VOLUME 92.6 fl (80-96); MEAN PLT VOLUME 8.1 fl (7.5-11.1); MONO % 8.1 % (3.8-10.2); PLATELET COUNT 231 K/MM3 (134-434); RBC 2.82 M/mm3 (4.00-5.60); RDW 14.8 % (11.9-15.9); WHITE BLOOD COUNT 7.2 K/mm3 (4.0-10.0)
--- NOTE | 2017-06-11 14:52 | PN ---
Progress Note, Physician Chief Complaint: The patient seen in his bed. General status unchanged. The swelling of the LE unchanged. Miantains good urine output. On IV Heparin and IV Lasix. - Current Medication List Current Medications: Active Medications Acetaminophen (Tylenol -) 650 mg PO Q6H PRN PRN Reason: PAIN Last Admin: 06/11/17 02:33 Dose: 650 mg Amlodipine Besylate (Norvasc -) 5 mg PO DAILY [facility] Last Admin: 06/11/17 10:19 Dose: 5 mg Aspirin (Asa -) 81 mg PO DAILY [facility] Last Admin: 06/11/17 10:20 Dose: 81 mg Atorvastatin Calcium (Lipitor -) 20 mg PO HS [facility] Last Admin: 06/10/17 21:32 Dose: 20 mg Carvedilol (Coreg -) 12.5 mg PO BID [facility] Last Admin: 06/11/17 10:20 Dose: 12.5 mg Clopidogrel Bisulfate (Plavix -) 75 mg PO DAILY [facility] Last Admin: 06/11/17 10:21 Dose: 75 mg Furosemide (Lasix Injection -) 40 mg IVPUSH BID@0600,1400 [facility] Last Admin: 06/11/17 06:21 Dose: 40 mg Heparin Sodium (Porcine) (Heparin -) 5,000 unit SQ BID [facility] Last Admin: 06/11/17 10:21 Dose: 5,000 unit IV Flush (Picc Line Flush) 8 ml IVPUSH PRN PRN PRN Reason: Protocol CEFTRIAXONE IN IS-OSM DEXTROSE (Ceftriaxone 2 Gm-D5w Bag) 2 gm in 50 mls @ 100 mls/hr IVPB DAILY [facility] Last Admin: 06/11/17 10:20 Dose: 100 mls/hr Insulin Aspart (Novolog Vial Sliding Scale -) 1 vial SQ ACHS [facility] PRN Reason: Protocol Last Admin: 06/11/17 11:46 Dose: 2 units - Objective Vital Signs: Vital Signs Temperature 98.3 F 06/11/17 10:00 Pulse Rate 69 06/11/17 10:00 Respiratory Rate 20 06/11/17 10:00 Blood Pressure 131/49 06/11/17 10:00 O2 Sat by Pulse Oximetry (%) 97 06/10/17 21:00 Constitutional: Yes: No Distress Eyes: Yes: Conjunctiva Clear HENT: Yes: Normocephalic Cardiovascular: Yes: S1, S2 Respiratory: Yes: Diminished Gastrointestinal: Yes: Soft, Abdomen, Obese Extremities: Yes: Erythema Edema: Yes Edema: LLE: 2+, RLE: 2+ Neurological: Yes: Alert Labs: CBC, BMP 06/11/17 13:35 06/11/17 07:00 INR, PTT INR 1.20 (0.82-1.09) H 06/01/17 05:30 Problem List - Problems (1) Abscess of leg, right Code(s): L02.415 - CUTANEOUS ABSCESS OF RIGHT LOWER LIMB (2) ASHD (arteriosclerotic heart disease) Code(s): I25.10 - ATHSCL HEART DISEASE OF [place] CORONARY ARTERY W/O ANG PCTRS (3) Acute renal insufficiency Code(s): N28.9 - DISORDER OF KIDNEY AND URETER, UNSPECIFIED (4) Anemia Code(s): D64.9 - ANEMIA, UNSPECIFIED (5) Arterial insufficiency of lower extremity Code(s): I73.9 - PERIPHERAL VASCULAR DISEASE, UNSPECIFIED (6) CKD (chronic kidney disease) Code(s): N18.9 - CHRONIC KIDNEY DISEASE, UNSPECIFIED Qualifiers: Chronic kidney disease stage: unspecified stage Qualified Code(s): N18.9 - Chronic kidney disease, unspecified (7) Diabetes mellitus, insulin dependent (IDDM), controlled Code(s): E10.9 - TYPE 1 DIABETES MELLITUS WITHOUT COMPLICATIONS (8) Diastolic CHF Code(s): I50.30 - UNSPECIFIED DIASTOLIC (CONGESTIVE) HEART FAILURE (9) Edema Code(s): R60.9 - EDEMA, UNSPECIFIED Qualifiers: Edema type: unspecified Qualified Code(s): R60.9 - Edema, unspecified (10) Hyperkalemia Code(s): E87.5 - HYPERKALEMIA (11) Hyperlipidemia Code(s): E78.5 - HYPERLIPIDEMIA, UNSPECIFIED (12) PAD (peripheral artery disease) Code(s): I73.9 - PERIPHERAL VASCULAR DISEASE, UNSPECIFIED (13) Stasis dermatitis of left lower extremity due to peripheral venous hypertension Code(s): I87.322 - CHRONIC VENOUS HYPERTENSION W INFLAMMATION OF L LOW EXTREM (14) Ulcer Code(s): L98.499 - NON-PRESSURE CHRONIC ULCER OF SKIN OF SITES W UNSP SEVERITY Assessment/Plan 56 year old gentleman with Past medical history of CKD , Hypertension, DM, HLD, Diastolic HF, PVD s/p bypass, CAD, COPD, CVA who presented with lower extremity swelling and redness. S/P I and D of abscess in the groin. Acute on Chronic Renal Insufficiency The azotemia is slightly worse today. ? Hemodynamic. ? AIN. Mild Hyperkalemia. ? Heparin related. ? AIN. Will get Urine eos. The legs still with pain The LE edema persists. LE cellulitis/Edema/Collection...on Ceftriaxone Will continue abx as per ID Can consider switching to PO Lasix. ? 80 mg bid. Will monitor the renal functions with you. Thank you. Susie Brooke MD
[2017-06-11] MEDS ORDERED: INSULIN (NOVOLOG) ASPART 100 UNITS/ML 10ML VIAL ONE (21:28)
[2017-06-11] MEDS: ATORVASTATIN CA 20 MG TABLET (FP) PO SCH (21:29)
[2017-06-12] MEDS: INSULIN SLIDING SCALE (NOVOLOG) 1 VIAL SQ SCH ×4 (06:13→21:16)
[2017-06-12] MEDS: FUROSEMIDE 40 MG/4 ML INJECTABLE VIAL IVPUSH SCH ×2 (06:14→15:26)
[2017-06-12 08:36] LABS: INR 1.17 (0.82-1.09); PROTHROMBIN TIME (PATIENT) 13.2 SEC (9.98-11.88)
[2017-06-12 09:01] LABS: ALBUMIN 2.6 g/dl (3.4-5.0); ANION GAP 6 (8-16); BLOOD UREA NITROGEN 55 mg/dL (7-18); CALCIUM 8.3 mg/dL (8.5-10.1); CHLORIDE 103 mmol/L (98-107); CO2 29 mmol/L (21-32); GLUCOSE,RANDOM 116 mg/dL (74-106); POTASSIUM 4.9 mmol/L (3.5-5.1); SODIUM 138 mmol/L (136-145)
[2017-06-12 09:05] LABS: ALK PHOS 77 U/L (45-117); BILIRUBIN,TOTAL 0.3 mg/dL (0.2-1.0); SGOT/AST 10 U/L (15-37); SGPT/ALT 20 U/L (12-78); TOT PROT 6.7 g/dl (6.4-8.2)
[2017-06-12] MEDS: CLOPIDOGREL BISULFATE 75 MG TABLET (FP) PO SCH (09:07)
[2017-06-12] MEDS: CEFTRIAXONE IN IS-OSM DEXTROSE 2 GM/50 ML BAG IVPB SCH (09:07)
[2017-06-12] MEDS: CARVEDILOL 12.5 MG TABLET (FP) PO SCH ×2 (09:07→21:15)
[2017-06-12] MEDS: HEPARIN NA (PORCINE) 5,000 UNITS/ML 1ML VIAL SQ SCH ×2 (09:07→21:16)
[2017-06-12] MEDS: ASPIRIN 81 MG CHEWABLE TABLETS PO SCH (09:07)
[2017-06-12] MEDS: amLODIPine BESYLATE 5 MG TABLET (FP) PO SCH (09:07)
[2017-06-12] MEDS ORDERED: INSULIN (NOVOLOG) ASPART 100 UNITS/ML 10ML VIAL ONE (11:43)
--- NOTE | 2017-06-12 11:50 | DS ---
Physical Examination Vital Signs: Vital Signs Temperature 97.9 F 06/12/17 06:04 Pulse Rate 80 06/12/17 10:00 Respiratory Rate 18 06/12/17 10:00 Blood Pressure 135/58 06/12/17 10:00 O2 Sat by Pulse Oximetry (%) 97 06/11/17 20:42 Labs: CBC, BMP 06/11/17 13:35 06/12/17 07:40 Discharge Summary Reason For Visit: PAIN IN LOWER EXTREMITY Current Active Problems Abscess of leg, right (Acute) - Instructions - Home Medications Comprehensive Discharge Medication List: Ambulatory Orders Amlodipine Besylate [Norvasc -] 5 mg PO DAILY 09/17/16 Clopidogrel Bisulfate [Plavix -] 75 mg PO DAILY 10/17/16 Carvedilol [Coreg -] 12.5 mg PO BID #60 tablet 10/24/16 Acetaminophen [Tylenol .Regular Strength -] 325 mg PO Q4H PRN #0 tablet Aspirin [ASA -] 81 mg PO DAILY tab.chew 02/25/17 Tamsulosin HCl [Flomax -] 0.8 mg PO DAILY@0830 #30 tab 02/25/17 Atorvastatin Ca [Lipitor] 20 mg PO HS tablet 06/12/17 Ceftriaxone in Is-Osm Dextrose [Ceftriaxone 2 gm Piggyback] 2 gm IV DAILY #24 [id number] 06/12/17 Furosemide [Lasix -] 40 mg PO DAILY #90 tablet 06/12/17 Heparin - 5,000 unit SQ BID vial 06/12/17 Insulin (Levemir) [Levemir Flexpen -] 10 units SQ DAILY #1 pen 06/12/17 Insulin Sliding Scale [Novolog Vial Sliding Scale -] 1 vial SQ ACHS units 06/12 Picc Line Flush [Picc Line Flush -] 8 ml IVPUSH PRN PRN ml 06/12/17
--- NOTE | 2017-06-12 11:58 | PN ---
Progress Note, Physician History of Present Illness: Awake, alert. Less R thigh and distal L LE pain Afebrile WBC WNL Azotemia improved - Current Medication List Current Medications: Active Medications Acetaminophen (Tylenol -) 650 mg PO Q6H PRN PRN Reason: PAIN Last Admin: 06/11/17 17:13 Dose: 650 mg Amlodipine Besylate (Norvasc -) 5 mg PO DAILY [facility] Last Admin: 06/12/17 09:07 Dose: 5 mg Aspirin (Asa -) 81 mg PO DAILY [facility] Last Admin: 06/12/17 09:07 Dose: 81 mg Atorvastatin Calcium (Lipitor -) 20 mg PO HS [facility] Last Admin: 06/11/17 21:29 Dose: 20 mg Carvedilol (Coreg -) 12.5 mg PO BID [facility] Last Admin: 06/12/17 09:07 Dose: 12.5 mg Clopidogrel Bisulfate (Plavix -) 75 mg PO DAILY [facility] Last Admin: 06/12/17 09:07 Dose: 75 mg Furosemide (Lasix Injection -) 40 mg IVPUSH BID@0600,1400 [facility] Last Admin: 06/12/17 06:14 Dose: 40 mg Heparin Sodium (Porcine) (Heparin -) 5,000 unit SQ BID [facility] Last Admin: 06/12/17 09:07 Dose: 5,000 unit IV Flush (Picc Line Flush) 8 ml IVPUSH PRN PRN PRN Reason: Protocol CEFTRIAXONE IN IS-OSM DEXTROSE (Ceftriaxone 2 Gm-D5w Bag) 2 gm in 50 mls @ 100 mls/hr IVPB DAILY [facility] Last Admin: 06/12/17 09:07 Dose: 100 mls/hr Insulin Aspart (Novolog Vial Sliding Scale -) 1 vial SQ ACHS [facility] PRN Reason: Protocol Last Admin: 06/12/17 11:52 Dose: 4 units - Objective Vital Signs: Vital Signs Temperature 97.9 F 06/12/17 06:04 Pulse Rate 80 06/12/17 10:00 Respiratory Rate 18 06/12/17 10:00 Blood Pressure 135/58 06/12/17 10:00 O2 Sat by Pulse Oximetry (%) 97 06/11/17 20:42 Constitutional: Yes: No Distress Eyes: Yes: Conjunctiva Clear Cardiovascular: Yes: Regular Rate and Rhythm, S1, S2 Respiratory: Yes: CTA Bilaterally Gastrointestinal: Yes: Normal Bowel Sounds, Soft, Abdomen, Obese. No: Tenderness Extremities: Yes: Other (R thigh wound with packing. No drainage or surrounding erythema. Distal L LE cellulitis resolving.) Labs: CBC, BMP 06/11/17 13:35 06/12/17 07:40 INR, PTT INR 1.17 (0.82-1.09) H 06/12/17 07:40 Assessment/Plan Bilateral LE cellulitis improved Renal failure Peripheral vascular disease Viry-graft fluid collection/ infected seroma + wound c/s grp B strep Insert tunnel catheter for outpatient antibiotic therapy Ceftriaxone 2gm IVPB q24h x 2 weeks
--- NOTE | 2017-06-12 12:10 | PN ---
Progress Note, Physician History of Present Illness: seen and examined today in nad. no new complaints. no overnight events. - Current Medication List Current Medications: Active Medications Acetaminophen (Tylenol -) 650 mg PO Q6H PRN PRN Reason: PAIN Last Admin: 06/11/17 17:13 Dose: 650 mg Amlodipine Besylate (Norvasc -) 5 mg PO DAILY [facility] Last Admin: 06/12/17 09:07 Dose: 5 mg Aspirin (Asa -) 81 mg PO DAILY [facility] Last Admin: 06/12/17 09:07 Dose: 81 mg Atorvastatin Calcium (Lipitor -) 20 mg PO HS [facility] Last Admin: 06/11/17 21:29 Dose: 20 mg Carvedilol (Coreg -) 12.5 mg PO BID [facility] Last Admin: 06/12/17 09:07 Dose: 12.5 mg Clopidogrel Bisulfate (Plavix -) 75 mg PO DAILY [facility] Last Admin: 06/12/17 09:07 Dose: 75 mg Furosemide (Lasix Injection -) 40 mg IVPUSH BID@0600,1400 [facility] Last Admin: 06/12/17 06:14 Dose: 40 mg Heparin Sodium (Porcine) (Heparin -) 5,000 unit SQ BID [facility] Last Admin: 06/12/17 09:07 Dose: 5,000 unit IV Flush (Picc Line Flush) 8 ml IVPUSH PRN PRN PRN Reason: Protocol CEFTRIAXONE IN IS-OSM DEXTROSE (Ceftriaxone 2 Gm-D5w Bag) 2 gm in 50 mls @ 100 mls/hr IVPB DAILY [facility] Last Admin: 06/12/17 09:07 Dose: 100 mls/hr Insulin Aspart (Novolog Vial Sliding Scale -) 1 vial SQ ACHS [facility] PRN Reason: Protocol Last Admin: 06/12/17 11:52 Dose: 4 units - Objective Vital Signs: Vital Signs Temperature 97.9 F 06/12/17 06:04 Pulse Rate 80 06/12/17 10:00 Respiratory Rate 18 06/12/17 10:00 Blood Pressure 135/58 06/12/17 10:00 O2 Sat by Pulse Oximetry (%) 97 06/11/17 20:42 Constitutional: Yes: Well Nourished, No Distress, Calm Eyes: Yes: Conjunctiva Clear, EOM Intact HENT: Yes: Atraumatic, Normocephalic Neck: Yes: Supple, Trachea Midline Cardiovascular: Yes: Regular Rate and Rhythm, S1, S2. No: Bradycardia, Tachycardia, Pulse Irregular, Bruit, JVD, Gallop, Murmur, Rub, S3, S4, Varicosities Respiratory: Yes: Regular, CTA Bilaterally. No: Rales, Rhonchi, Wheezes Gastrointestinal: Yes: Normal Bowel Sounds, Soft. No: Distention, Tenderness Extremities: Yes: Erythema Edema: Yes Edema: LLE: Trace, RLE: Trace Peripheral Pulses WNL: No Neurological: Yes: Alert, Oriented Psychiatric: Yes: Alert, Oriented Labs: CBC, BMP 06/11/17 13:35 06/12/17 07:40 INR, PTT INR 1.17 (0.82-1.09) H 06/12/17 07:40 - ....Imaging Chest X-ray: Report Reviewed, Image Reviewed EKG: Report Reviewed, Image Reviewed Other: Report Reviewed, Image Reviewed Assessment/Plan LE cellulitis Acute on chronic diastolic CHF Severe PAD s/p RLE bypass in January 2017 CAD s/p PCI Acute on chronic renal failure. possibly triggered by decompensated diastolic CHF IDDM Prior CVA Anemia CRI Carotid stenosis REC: Carotid stenosis-Vascular evaluation appreciated, will benefit from CEA, as per Vascular plan is to wait until LE wound heals and no infection given risk of infection at carotid surgical site. There is currently no cardiac contraindication to the procedure. Pt is an intermediate risk for procedures, will need to re-evaluate when closer to time of surgery Currently overall euvolemic. Back on IV lasix currently, this can be changed back to home po Lasix dose, with close monitoring of volume status when at rehab and at home No further chest pain, cardiac enzymes wnl recent echo and nuclear stress showing no ischemia, plan has been to manage his atypical chest pain conservatively/medically. Ok from a cardiac standpoint for discharge planning. recc close outpatient f/up , pt has not come to the office at any point recently (few years)
[2017-06-12 16:08] LABS: BASO % 0.8 % (0-2.0); EOS % 6.4 % (0-4.5); HEMATOCRIT 28.5 % (35.4-49); HEMOGLOBIN 9.6 GM/dL (11.7-16.9); LYMPH % 12.1 % (8-40); MCH 31.5 pg (25.7-33.7); MCHC 33.8 g/dl (32.0-35.9); MEAN CELL VOLUME 93.1 fl (80-96); MEAN PLT VOLUME 8.4 fl (7.5-11.1); NEUT % 73.7 % (42.8-82.8); PLATELET COUNT 260 K/MM3 (134-434); RBC 3.06 M/mm3 (4.00-5.60); RDW 15.3 % (11.9-15.9)
[2017-06-12] MEDS: ATORVASTATIN CA 20 MG TABLET (FP) PO SCH (21:15)
--- NOTE | 2017-06-12 23:11 | PN ---
Progress Note (short form) - Note Progress Note: pt see/ examined this morning with Dr. Snyder Case discussed wound examined pt comfortable pain ok chart reviewed getting lasix bid dosing Physical Exam Constitutional: Yes: No Distress. comfortable Eyes: Yes: Conjunctiva Clear Cardiovascular: Yes: Regular Rate and Rhythm, S1, S2 Respiratory: Yes: clear Gastrointestinal: Yes: Normal Bowel Sounds, Soft, Abdomen, Obese. No: Tenderness Extremities: Yes: Other (R thigh wound with packing. No drainage or surrounding erythema. Distal L LE cellulitis resolving.) Neuro- Alert and awake Labs: reviewed MEds - Reviewed Assessment/Plan Bilateral LE cellulitis --better PVD Renal Insufficiency Carotid artery stanosis Viry-graft fluid collection/ infected seroma + wound c/s grp B strep stable tunnel catheter for outpatient antibiotic therapy--ordered Ceftriaxone 2gm IVPB q24h x 2 weeks carotid surgery after clearing of infection per vascular discharge planning will follow discussed with family independence case manager/nursing staff also time spend 30 min. Problem List - Problems (1) Arterial insufficiency of lower extremity Code(s): I73.9 - PERIPHERAL VASCULAR DISEASE, UNSPECIFIED (2) CAD (coronary artery disease) Code(s): I25.10 - ATHSCL HEART DISEASE OF [place] CORONARY ARTERY W/O ANG PCTRS Qualifiers: Coronary Disease-Associated Artery/Lesion type: three affiliated artery [place] vs. transplanted heart: three affiliated heart Associated angina: without angina Qualified Code(s): I25.10 - Atherosclerotic heart disease of three affiliated coronary artery without angina pectoris (3) Cellulitis of left leg Code(s): L03.116 - CELLULITIS OF LEFT LOWER LIMB (4) Chronic renal insufficiency Code(s): N18.9 - CHRONIC KIDNEY DISEASE, UNSPECIFIED (5) Diabetes Code(s): E11.9 - TYPE 2 DIABETES MELLITUS WITHOUT COMPLICATIONS Qualifiers: Diabetes mellitus type: type 2 Diabetes mellitus complication detail: with nephropathy
[2017-06-13] MEDS: FUROSEMIDE 40 MG/4 ML INJECTABLE VIAL IVPUSH SCH ×2 (05:40→13:53)
[2017-06-13] MEDS: INSULIN SLIDING SCALE (NOVOLOG) 1 VIAL SQ SCH ×4 (06:05→21:35)
[2017-06-13] MEDS: ASPIRIN 81 MG CHEWABLE TABLETS PO SCH (09:33)
[2017-06-13] MEDS: CLOPIDOGREL BISULFATE 75 MG TABLET (FP) PO SCH (09:33)
[2017-06-13] MEDS: amLODIPine BESYLATE 5 MG TABLET (FP) PO SCH (09:33)
[2017-06-13] MEDS: HEPARIN NA (PORCINE) 5,000 UNITS/ML 1ML VIAL SQ SCH ×2 (09:33→21:35)
[2017-06-13] MEDS: CARVEDILOL 12.5 MG TABLET (FP) PO SCH ×2 (09:33→21:35)
[2017-06-13] MEDS: CEFTRIAXONE IN IS-OSM DEXTROSE 2 GM/50 ML BAG IVPB SCH (10:34)
[2017-06-13] MEDS ORDERED: INSULIN (NOVOLOG) ASPART 100 UNITS/ML 10ML VIAL ONE ×3 (11:20→21:29)
[2017-06-13] MEDS ORDERED: LORazepam 2 MG/ML SDV VIAL IVPUSH ONE ×2 (11:30→14:00)
--- NOTE | 2017-06-13 11:56 | DS ---
Physical Examination Vital Signs: Vital Signs Temperature 98.2 F 06/13/17 06:15 Pulse Rate 68 06/13/17 06:15 Respiratory Rate 20 06/13/17 06:15 Blood Pressure 130/64 06/13/17 06:15 O2 Sat by Pulse Oximetry (%) 97 06/12/17 20:13 Constitutional: Yes: No Distress Cardiovascular: Yes: Regular Rate and Rhythm Respiratory: Yes: CTA Bilaterally Gastrointestinal: Yes: Normal Bowel Sounds, Soft, Abdomen, Obese. No: Tenderness Edema: Yes Labs: CBC, BMP 06/12/17 14:50 06/12/17 07:40 Discharge Summary Reason For Visit: PAIN IN LOWER EXTREMITY Current Active Problems Abscess of leg, right (Acute) Hospital Course: Admitted for cellulitis and abscess in rt leg-- had drained on 06/02/17 , I and D done - seen by ID , surgery Will need skilled nursing antibiotics Seen by Renal for CKD and Cardiology Also seen by Neurology for chronic frontal infarcts , h/o CVA-- carotid sono-- left carotid stenosis Assessment/Plan Bilateral LE cellulitis --better PVD Renal Insufficiency Carotid artery stanosis Viry-graft fluid collection/ infected seroma + wound c/s grp B strep stable tunnel catheter for outpatient antibiotic therapy Ceftriaxone 2gm IVPB q24h x 2 weeks carotid surgery after clearing of infection per vascular - Instructions Diet, Activity, Other Instructions: Daily wound care with saline gauze packing and gauze wrap Referrals: Ze Humphrey MD [Staff Physician] - 2 Weeks Disposition: [facility] - Home Medications Comprehensive Discharge Medication List: Ambulatory Orders Amlodipine Besylate [Norvasc -] 5 mg PO DAILY 09/17/16 Clopidogrel Bisulfate [Plavix -] 75 mg PO DAILY 10/17/16 Carvedilol [Coreg -] 12.5 mg PO BID #60 tablet 10/24/16 Acetaminophen [Tylenol .Regular Strength -] 325 mg PO Q4H PRN #0 tablet Aspirin [ASA -] 81 mg PO DAILY tab.chew 02/25/17 Tamsulosin HCl [Flomax -] 0.8 mg PO DAILY@0830 #30 tab 02/25/17 Atorvastatin Ca [Lipitor] 20 mg PO HS tablet 06/12/17 Ceftriaxone in Is-Osm Dextrose [Ceftriaxone 2 gm Piggyback] 2 gm IV DAILY #24 froz.piggy 06/12/17 Furosemide [Lasix -] 40 mg PO DAILY #90 tablet 06/12/17 Heparin - 5,000 unit SQ BID vial 06/12/17 Insulin (Levemir) [Levemir Flexpen -] 10 units SQ DAILY #1 pen 06/12/17 Insulin Sliding Scale [Novolog Vial Sliding Scale -] 1 vial SQ ACHS units 06/12 Picc Line Flush [Picc Line Flush -] 8 ml IVPUSH PRN PRN ml 06/12/17
--- NOTE | 2017-06-13 16:21 | PN ---
Progress Note (short form) - Note Progress Note: Renal follow up for VANDA Pt seen and examined at the bedside no complaints for discharge to NH no sob, chest pain, abd pain Vital Signs Temperature 98.4 F 06/13/17 14:16 Pulse Rate 76 06/13/17 14:16 Respiratory Rate 20 06/13/17 09:00 Blood Pressure 102/41 06/13/17 14:16 O2 Sat by Pulse Oximetry (%) 97 06/13/17 09:00 Intake & Output 06/10/17 06/11/17 06/12/17 06/13/17 23:59 23:59 23:59 23:59 Intake Total 3580 1050 2600 975 Output Total 4025 2700 4100 2800 Balance -300 -1008 -4681 -6419 Weight 88.706 kg 87.742 kg 84.907 kg 85.36 kg NAD awake and alert CTA + edema CBC, BMP 06/12/17 14:50 06/12/17 07:40 Current Medications Acetaminophen (Tylenol -) 650 mg PO Q6H PRN PRN Reason: PAIN Last Admin: 06/11/17 17:13 Dose: 650 mg Amlodipine Besylate (Norvasc -) 5 mg PO DAILY [facility] Last Admin: 06/13/17 09:33 Dose: 5 mg Aspirin (Asa -) 81 mg PO DAILY [facility] Last Admin: 06/13/17 09:33 Dose: 81 mg Atorvastatin Calcium (Lipitor -) 20 mg PO HS [facility] Last Admin: 06/12/17 21:15 Dose: 20 mg Carvedilol (Coreg -) 12.5 mg PO BID [facility] Last Admin: 06/13/17 09:33 Dose: 12.5 mg Clopidogrel Bisulfate (Plavix -) 75 mg PO DAILY [facility] Last Admin: 06/13/17 09:33 Dose: 75 mg Furosemide (Lasix Injection -) 40 mg IVPUSH BID@0600,1400 [facility] Last Admin: 06/13/17 13:53 Dose: 40 mg Heparin Sodium (Porcine) (Heparin -) 5,000 unit SQ BID [facility] Last Admin: 06/13/17 09:33 Dose: 5,000 unit IV Flush (Picc Line Flush) 8 ml IVPUSH PRN PRN PRN Reason: Protocol Insulin Aspart (Novolog Vial Sliding Scale -) 1 vial SQ ACHS [facility] PRN Reason: Protocol Last Admin: 06/13/17 11:23 Dose: 4 units 56 year old gentleman with PMhx of CKD (baseline Cr 1.4-1.8), Hypertension, DM, HLD, Diastolic HF, PVD s/p bypass, CAD, COPD, CVA who presented with lower extremity swelling and redness and noted to have Cr of 2.7. #Acute on Chronic Renal Insufficiency Renal function stable can continue Lasix 80mg PO BID as outpatient trend BUN/Cr #LE cellulitis/Edema/Collection continue abx as per ID s/p drainage of fluid collection Prakash Garcia DO
[2017-06-13] MEDS: ATORVASTATIN CA 20 MG TABLET (FP) PO SCH (21:35)
[2017-06-14] MEDS: FUROSEMIDE 40 MG TABLET (FP) PO SCH ×2 (05:59→14:46)
[2017-06-14] MEDS: INSULIN SLIDING SCALE (NOVOLOG) 1 VIAL SQ SCH ×2 (05:59→12:22)
[2017-06-14] MEDS ORDERED: CEFTRIAXONE IN IS-OSM DEXTROSE 2 GM/50 ML BAG IVPB SCH (10:00)
[2017-06-14] MEDS ORDERED: INSULIN (NOVOLOG) ASPART 100 UNITS/ML 10ML VIAL ONE (11:01)
[2017-06-14] MEDS: amLODIPine BESYLATE 5 MG TABLET (FP) PO SCH (11:19)
[2017-06-14] MEDS: CLOPIDOGREL BISULFATE 75 MG TABLET (FP) PO SCH (11:19)
[2017-06-14] MEDS: ASPIRIN 81 MG CHEWABLE TABLETS PO SCH (11:19)
[2017-06-14] MEDS: HEPARIN NA (PORCINE) 5,000 UNITS/ML 1ML VIAL SQ SCH (11:19)
[2017-06-14] MEDS: CARVEDILOL 12.5 MG TABLET (FP) PO SCH (11:19)
[2017-06-14 14:45] VITALS: BP 104/43; PULSE 86; TEMP 99.6
--- NOTE | 2017-06-14 18:42 | PN ---
Progress Note (short form) - Note Progress Note: Seen pt prior to discharge awaiting ambulette feels well Vitals stable Rt leg examined-- dressing was out-- wound is clean , red granulation tissue Rt chest wall tunnelled cath A/P Cellulitis Leg abscess Left carotid stenosis h/o CVA -- stable for dc to NH for alf antibiotics Problem List - Problems (1) ASHD (arteriosclerotic heart disease) Code(s): I25.10 - ATHSCL HEART DISEASE OF [place] CORONARY ARTERY W/O ANG PCTRS (2) Acute renal insufficiency Code(s): N28.9 - DISORDER OF KIDNEY AND URETER, UNSPECIFIED (3) Anemia Code(s): D64.9 - ANEMIA, UNSPECIFIED (4) Abscess of leg, right Code(s): L02.415 - CUTANEOUS ABSCESS OF RIGHT LOWER LIMB
== END 2017-06-14 15:40 | DRG 602 ==
LOC: JER 02:42 → JERBED 06:03 → UNDOADMIN 06:13 → JERBED 06:13 → J4W 13:22 → J6S 06-05 19:06
PROVIDERS: ADMIT Internal Medicine; ATTEND Internal Medicine
PROC: 0JP Subcutaneous Tissue and Fascia, Removal (ICD-10-PCS; principal; 2017-06-07 10:30)
PROC: 30233N1 Transfusion of Nonautologous Red Blood Cells into Peripheral Vein, Percutaneous Approach (ICD-10-PCS; 2017-06-08)
PROC: 05HM33Z Insertion of Infusion Device into Right Internal Jugular Vein, Percutaneous Approach (ICD-10-PCS; 2017-06-13)
PROC: B513ZZA Fluoroscopy of Right Jugular Veins, Guidance (ICD-10-PCS; 2017-06-13)
DX: L03.115 Cellulitis of right lower limb (principal); I50.33 Acute on chronic diastolic (congestive) heart failure; I13.0 Hypertensive heart and chronic kidney disease with heart failure and stage 1 through stage 4 chronic kidney disease, or unspecified chronic kidney disease; N17.9 Acute kidney failure, unspecified; I69.354 Hemiplegia and hemiparesis following cerebral infarction affecting left non-dominant side; L03.116 Cellulitis of left lower limb; L02.415 Cutaneous abscess of right lower limb; N18.9 Chronic kidney disease, unspecified; E11.622 Type 2 diabetes mellitus with other skin ulcer; D64.9 Anemia, unspecified; I25.10 Atherosclerotic heart disease of native coronary artery without angina pectoris; E11.9 Type 2 diabetes mellitus without complications; E87.5 Hyperkalemia; I73.9 Peripheral vascular disease, unspecified; Z98.61 Coronary angioplasty status; I65.22 Occlusion and stenosis of left carotid artery
CPT/HCPCS: 10030; 36415; 36430; 36558; 70450-TC; 71046-TC-FY; 73130-TC-LR-FY; 76098-TC-FY; 76775-TC; 76882; 76998-TC; 77001-TC-FY; 80048; 80053; 80307; 81003; 81015; 82272; 82436; 82550; 82570; 82728; 82962; 83540; 83550; 83605; 83690; 83735; 83880; 84100; 84133; 84156; 84300; 84484; 84540; 85025; 85027; 85610; 85651; 85730; 86140; 86850; 86900; 86901; 86922; 87040; 87070; 87075; 87186; 87205; 87899; 93005; 93010; 93880-TC; 93926-TC; 93971; 97116-GP; 97161-GP; 99284-25; C1729; C1751; C1769; G0480; J1644; P9038; P9058

== ENCOUNTER → 2017-07-20 | Day surgery (SDC) | payer OTHER | END | disposition home or self-care (01) | LOC: JRADIR 10:51 | PROVIDERS: ATTEND Internal Medicine | PROC: 02PY03Z Removal of Infusion Device from Great Vessel, Open Approach (ICD-10-PCS; principal; 2017-07-20) | DX: Z45.2 Encounter for adjustment and management of vascular access device (principal) | CPT/HCPCS: 36589 ==

== ENCOUNTER 2017-08-16 12:40 | Inpatient (IN) | payer OTHER ==
[2017-08-16 12:50] VITALS: BMI 35.4
--- NOTE | 2017-08-16 13:13 | PDOC ---
History of Present Illness - General Chief Complaint: Chest Pain Stated Complaint: sick Time Seen by Provider: 08/16/17 13:09 - History of Present Illness Initial Comments: 08/16/17 14:34 The patient is a 57 year old male with a history of HTN, HLD, DM, CVA, CAD, DC, who presents for evaluation of chest pain. The patient reports a two day history of severe chest stiffness with radiation to his back prompting his presentation to the ED for evaluation. The patient reports that he has had somewhat similar symptoms in the past with prior CHF exacerbations. He notes some worsening lower extremity edema as well, but otherwise denies fevers, chills, cough, SOB, nausea, vomiting, abdominal pain, or changes with urination or bowel movements. Past History - Past Medical History Allergies/Adverse Reactions: Allergies Allergy/AdvReac Type Severity Reaction Status Date / Time No Known Drug Allergies Allergy Verified 08/16/17 12:46 Home Medications: Ambulatory Orders Amlodipine Besylate [Norvasc -] 5 mg PO DAILY 09/17/16 Clopidogrel Bisulfate [Plavix -] 75 mg PO DAILY 10/17/16 Carvedilol [Coreg -] 12.5 mg PO BID #60 tablet 10/24/16 Acetaminophen [Tylenol .Regular Strength -] 325 mg PO Q4H PRN #0 tablet Aspirin [ASA -] 81 mg PO DAILY tab.chew 02/25/17 Tamsulosin HCl [Flomax -] 0.8 mg PO DAILY@0830 #30 tab 02/25/17 Atorvastatin Ca [Lipitor] 20 mg PO HS tablet 06/12/17 Ceftriaxone in Is-Osm Dextrose [Ceftriaxone 2 gm Piggyback] 2 gm IV DAILY #24 froz.piggy 06/12/17 Furosemide [Lasix -] 40 mg PO DAILY #90 tablet 06/12/17 Insulin (Levemir) [Levemir Flexpen -] 10 units SQ DAILY #1 pen 06/12/17 Insulin Sliding Scale [Novolog Vial Sliding Scale -] 1 vial SQ ACHS units 06/12 Picc Line Flush [Picc Line Flush -] 8 ml IVPUSH PRN PRN ml 06/12/17 Anemia: No Asthma: No Cancer: No Cardiac Disorders: Yes (stent x 2) CVA: Yes (2009, 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) COPD: No CHF: No Dementia: No Diabetes: Yes GI Disorders: No Disorders: No HTN: Yes Hypercholesterolemia: Yes Liver Disease: No Seizures: No Thyroid Disease: No - Surgical History Abdominal Surgery: No Appendectomy: No Cardiac Surgery: Yes (STENTS X2) Cholecystectomy: No Lung Surgery: No Neurologic Surgery: No Orthopedic Surgery: No - Immunization History Immunization Up to Date: Yes - Suicide/Smoking/Psychosocial Hx Smoking Status: Yes Smoking History: Current some day smoker Have you smoked in the past 12 months: Yes Number of Cigarettes Smoked Daily: 2 If you are a former smoker, when did you quit?: 09/2016 Cigars Per Day: 0 Information on smoking cessation initiated: No 'Breaking Loose' booklet given: 06/01/17 Hx Alcohol Use: No Drug/Substance Use Hx: No Substance Use Type: None Hx Substance Use Treatment: No Review of Systems - Review of Systems Comments:: 08/16/17 14:36 Constitutional: No fevers, chills, fatigue, malaise HEENT: No Rhinorrhea, nasal congestion, visual changes Cardiovascular: Chest pain. No syncope, palpitations, lightheadedness Respiratory: No Cough, SOB, Hemoptysis, Gastrointestinal: No Abdominal pain, Nausea, Vomiting, Constipation, Diarrhea, Melena Genitourinary: No Dysuria, Frequency, Urgency, Hesitancy, Hematuria, Flank pain Musculoskeletal: No Myalgia, arthralgia Skin: No rashes, itching, bruising, pallor Neurologic: No Headache, Dizziness, Numbness, Weakness, or Tingling Psychiatric: No Hallucinations. No SI or HI *Physical Exam - Vital Signs Last Vital Signs Temp Pulse Resp BP Pulse Ox 98.2 F 78 20 110/55 97 08/16/17 12:47 08/16/17 12:47 08/16/17 12:47 08/16/17 12:47 08/16/17 12:47 - Physical Exam Comments: 08/16/17 17:29 General Appearance: Nourished. No Apparent Distress HEENT: EOMI, BRIE. No Pharyngeal Erythema, Tonsillar Exudate, Tonsillar Erythema Neck: No Cervical Lymphadenopathy Respiratory/Chest: Lungs Clear, Normal Breath Sounds. Bibasilar Rales noted on exam. No Rhonchi, Wheezing Cardiovascular: Regular Rhythm, Regular Rate. No Murmur, Gallops, Rubs Gastrointestinal/Abdominal: Normal Bowel Sounds, Soft. No Guarding, Rebound, Tenderness Musculoskeletal: No CVA Tenderness Extremity: 4+ pitting edema in the lower extremities bilaterally. Normal Capillary Refill Integumentary: Normal Color, Dry, Warm Neurologic: Fully Oriented, Alert, Normal Mood/Affect, Normal Response, ED Treatment Course - LABORATORY CBC & Chemistry Diagram: 08/16/17 13:31 08/16/17 13:31 Medical Decision Making - Medical Decision Making 08/16/17 15:31 The patient is a 57 year old male with a history of HTN, CHF, HLD, DM, CVA, CAD , DC, who presents for evaluation of chest pain. Differential includes but is not limited to: ACS, Arrhythmia, CHF exacerbation, Musculoskeletal, infectious, metabolic derangement. Given the patient's history, we will obtain a cbc, cmp, troponin, bnp, ekg, chest plain film to evaluate further for possible etiologies. We will treat with lasix 40mg iv here in the ED in the meantime and continue to monitor and reassess. 08/16/17 17:33 CBC, cmp, troponin is unremarkable. BNP is elevated to 1200. Chest plain film is unremarkable as read by our radiologist. We believe the patient requires observation admission for further management of his symptoms and due to his significant cardiac risk factors. We discussed the case with the hospitalist team who accepted the patient for admission. *DC/Admit/Observation/Transfer Diagnosis at time of Disposition: CHF (congestive heart failure) Qualifiers: Heart failure type: unspecified Heart failure chronicity: acute on chronic Qualified Code(s): I50.9 - Heart failure, unspecified Chest pain Qualifiers: Chest pain type: unspecified Qualified Code(s): R07.9 - Chest pain, unspecified - Discharge Dispostion Condition at time of disposition: Stable Admit: Yes - Referrals Referrals: Ariadna Huizar MD [Primary Care Provider] - - Patient Instructions - Post Discharge Activity
[2017-08-16 13:57] LABS: BASO % 0.7 % (0-2.0); HEMATOCRIT 23.1 % (35.4-49); HEMOGLOBIN 7.8 GM/dL (11.7-16.9); LYMPH % 18.3 % (8-40); MCH 31.7 pg (25.7-33.7); MEAN CELL VOLUME 93.5 fl (80-96); MEAN PLT VOLUME 7.9 fl (7.5-11.1); MONO % 10.9 % (3.8-10.2); NEUT % 65.1 % (42.8-82.8); PLATELET COUNT 181 K/MM3 (134-434); RBC 2.47 M/mm3 (4.00-5.60); RDW 15.6 % (11.9-15.9); WHITE BLOOD COUNT 5.9 K/mm3 (4.0-10.0)
[2017-08-16 14:26] LABS: ALBUMIN 2.9 g/dl (3.4-5.0); ANION GAP 9 (8-16); BLOOD UREA NITROGEN 61 mg/dL (7-18); CALCIUM 8.1 mg/dL (8.5-10.1); CHLORIDE 109 mmol/L (98-107); CO2 26 mmol/L (21-32); GLUCOSE,RANDOM 135 mg/dL (74-106); POTASSIUM 4.2 mmol/L (3.5-5.1); SODIUM 144 mmol/L (136-145)
[2017-08-16 14:33] LABS: ALK PHOS 85 U/L (45-117); BILIRUBIN,TOTAL 0.2 mg/dL (0.2-1.0); CREATININE 2.3 mg/dL (0.7-1.3); N-TERMINAL BNP 1738.46 pg/ml (5-125); SGOT/AST 15 U/L (15-37); SGPT/ALT 18 U/L (12-78); TOT PROT 6.2 g/dl (6.4-8.2)
--- NOTE | 2017-08-16 15:17 | EKG ---
Test Reason : Blood Pressure : / mmHG Vent. Rate : 079 BPM Atrial Rate : 079 BPM P-R Int : 172 ms QRS Dur : 138 ms QT Int : 416 ms P-R-T Axes : 059 -60 032 degrees QTc Int : 477 ms POOR DATA QUALITY, INTERPRETATION MAY BE ADVERSELY AFFECTED NORMAL SINUS RHYTHM POSSIBLE LEFT ATRIAL ENLARGEMENT RIGHT BUNDLE BRANCH BLOCK LEFT ANTERIOR FASCICULAR BLOCK BIFASCICULAR BLOCK ABNORMAL ECG WHEN COMPARED WITH ECG OF 02-JUN-2017 10:05, NONSPECIFIC T WAVE ABNORMALITY HAS REPLACED INVERTED T WAVES IN LATERAL LEADS Confirmed by REINA KIRAN, EDIS ([id number]) on 08/16/2017 3:17:26 PM Referred By: Confirmed By:EDIS HUANG MD
--- NOTE | 2017-08-16 15:27 | PDOC ---
Attending Attestation - HPI HPI: 08/16/17 18:00 The patient is a 57 year old male with history of hypertension, hyperlipidemia, DM, CAD, CHF, CVA with L residual weakness, brought in by EMS complaining of approximately 2-3 days of worsening left chest pain and bilateral lower extremity edema. He states his chest pain is tight in nature and radiates to the back. Reports this feels similar to previous CHF exacerbation. No fever, chills, or cough. No nausea, vomiting, or diarrhea. - Physicial Exam PE: 08/16/17 18:00 agree with resident exam Documentation prepared by Quynh Lebron, acting as medical receptionist biller for Kianna Mg MD. <Quynh Lebron - Last Filed: 08/16/17 18:00> - Resident Resident Name: Guanakito Palmer - ED Attending Attestation I have performed the following: I have examined & evaluated the patient, The case was reviewed & discussed with the resident, I agree w/resident's findings & plan, Exceptions are as noted - Medical Decision Making 08/16/17 19:06 57yo M with MMP p/w CP, admitted for cardiac work up given multiple risk factors. <Kianna Mg - Last Filed: 08/16/17 19:07>
[2017-08-16] MEDS ORDERED: FUROSEMIDE 40 MG/4 ML INJECTABLE VIAL IVPUSH ONE (16:07)
[2017-08-16] MEDS ORDERED: FUROSEMIDE 40 MG/4 ML INJECTABLE VIAL ONE (16:44)
--- NOTE | 2017-08-16 17:27 | HP ---
Admitting History and Physical - Primary Care Physician PCP: Ariadna Huizar - Admission Chief Complaint: left sided neck, shoulder stiffness History of Present Illness: This is a 57 year old male with PMHx of CVA 8 years ago with residual left upper and lower extremity weakness, DM, anemia, diastolic heart failure, severe PAD s/p RLE bypass 01/2017, LLE bypass 2013, CAD s/p PCI, COPD, who presents to the ED with left sided chest, neck, shoulder stiffness. Pt is a poor historian and cannot stay awake for long, states he is very tired. The stiffness has been going on for "awhile" however this morning he had some chest pain and sob and the stiffness was worse so he decided to come in. Currently, pt denies worsening stiffness, its the same as baseline. He denies sob, chest pain, tightness, blurry vision, BAKER, fever, chills. His friend son helps him in the home, he does not have an aid. Per ED record, pt notes some worsening lower ext edema History Source: Patient, Medical Record Limitations to Obtaining History: Poor Historian - Past Medical History [employer]: Yes: CVA, Peripheral Neuropathy, Other (arterial insufficiency s/p left fem -tibial bypass- 2013, rt fem-pop bypass- 2016) Cardiovascular: Yes: CAD, CHF, HTN, Hyperlipdemia, Other (PAD) Pulmonary: Yes: COPD Renal/: Yes: Renal Inusuff Heme/Onc: Yes: Anemia Psych: Yes: Anxiety Endocrine: Yes: Diabetes Mellitus - Past Surgical History Past Surgical History: Yes: Bypass, Stent - Smoking History Smoking history: Current some day smoker Have you smoked in the past 12 months: Yes Aproximately how many cigarettes per day: 2 If you are a former smoker, when did you quit?: 09/2016 - Alcohol/Substance Use Hx Alcohol Use: No History of Substance Use: reports: None - Social History ADL: Independent 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 History of Recent Travel: No Home Medications - Allergies Allergies/Adverse Reactions: Allergies Allergy/AdvReac Type Severity Reaction Status Date / Time No Known Drug Allergies Allergy Verified 08/16/17 12:46 - Home Medications Home Medications: Ambulatory Orders Amlodipine Besylate [Norvasc -] 5 mg PO DAILY 09/17/16 Clopidogrel Bisulfate [Plavix -] 75 mg PO DAILY 10/17/16 Carvedilol [Coreg -] 12.5 mg PO BID #60 tablet 10/24/16 Acetaminophen [Tylenol .Regular Strength -] 325 mg PO Q4H PRN #0 tablet Aspirin [ASA -] 81 mg PO DAILY tab.chew 02/25/17 Tamsulosin HCl [Flomax -] 0.8 mg PO DAILY@0830 #30 tab 02/25/17 Atorvastatin Ca [Lipitor] 20 mg PO HS tablet 06/12/17 Ceftriaxone in Is-Osm Dextrose [Ceftriaxone 2 gm Piggyback] 2 gm IV DAILY #24 froz.piggy 06/12/17 Furosemide [Lasix -] 40 mg PO DAILY #90 tablet 06/12/17 Insulin (Levemir) [Levemir Flexpen -] 10 units SQ DAILY #1 pen 06/12/17 Insulin Sliding Scale [Novolog Vial Sliding Scale -] 1 vial SQ ACHS units 06/12 Picc Line Flush [Picc Line Flush -] 8 ml IVPUSH PRN PRN ml 06/12/17 Family Disease History - Family Disease History Family Disease History: Other: Father ( 62: lung ca), Mother ( 72: colon cancer), Sister (1, healthy) Review of Systems - Review of Systems Constitutional: reports: No Symptoms Eyes: reports: No Symptoms HENT: reports: No Symptoms Neck: reports: Pain on Movement (left side) Cardiovascular: reports: Chest Pain, Shortness of Breath Respiratory: reports: SOB Gastrointestinal: reports: No Symptoms Genitourinary: reports: No Symptoms Musculoskeletal: reports: Back Pain (left side) Integumentary: reports: No Symptoms Neurological: reports: Pre-Existing Deficit Endocrine: reports: No Symptoms Hematology/Lymphatic: reports: No Symptoms Psychiatric: reports: No Symptoms Physical Examination Vital Signs: Vital Signs Temperature 98.2 F 08/16/17 12:47 Pulse Rate 79 08/16/17 15:41 Respiratory Rate 18 08/16/17 15:41 Blood Pressure 106/49 08/16/17 15:41 O2 Sat by Pulse Oximetry (%) 96 08/16/17 15:41 Constitutional: Yes: No Distress, Calm Eyes: Yes: Conjunctiva Clear HENT: Yes: Atraumatic Neck: Yes: Supple Cardiovascular: Yes: Regular Rate and Rhythm, S1, S2 Respiratory: Yes: Diminished, Rhonchi Gastrointestinal: Yes: Normal Bowel Sounds, Soft Extremities: Yes: Erythema Edema: Yes Edema: LLE: 3+, RLE: 3+ Integumentary: Yes: Venous Stasis Changes Neurological: Yes: Alert, Oriented, Cran Nerves II-XII Intact, Pre-Existing Deficit Psychiatric: Yes: Alert Labs: CBC, BMP 08/16/17 13:31 08/16/17 13:31 Imaging - Results Chest X-ray: Report Reviewed, Image Reviewed Problem List - Problems (1) CHF (congestive heart failure) Code(s): I50.9 - HEART FAILURE, UNSPECIFIED Qualifiers: Heart failure type: unspecified Heart failure chronicity: acute on chronic Qualified Code(s): I50.9 - Heart failure, unspecified (2) Arterial insufficiency of lower extremity Code(s): I73.9 - PERIPHERAL VASCULAR DISEASE, UNSPECIFIED (3) CAD (coronary artery disease) Code(s): I25.10 - ATHSCL HEART DISEASE OF [place] CORONARY ARTERY W/O ANG PCTRS Qualifiers: Coronary Disease-Associated Artery/Lesion type: [place] artery [place] vs. transplanted heart: [place] heart Associated angina: without angina Qualified Code(s): I25.10 - Atherosclerotic heart disease of [place] coronary artery without angina pectoris Assessment/Plan Assessment: 56 year old male with PMHx of CVA 8 years ago with residual left upper and lower extremity weakness, DM, anemia, diastolic heart failure, severe PAD s/p RLE bypass 01/2017, LLE bypass 2013, CAD s/p PCI, COPD admitted with left sided shoulder stiffness Plan: 1. left sided neck/chest/back stiffness - Unable to preform CTA due to ARF - Pt is not sob, tachycardic, back pain is at baseline - Will monitor 2. Acute diastolic CHF exacerbation - BNP elevated, however less than previous and pt has ARF - No evidence on cxr, however w/ le edema - Lasix 40mg IV x1 - Will dose daily for now, monitor renal fx 3. Chest pain - Trop wnl 4. VANDA on CKD - Cr 2.3, baseline (1.3-1.4) - Renal consulted 5. CAD s/p stenting - Continue ASA - Continue Plavix 6. S/p RLE bypass 01/2017 - Continue ASA - Continue Plavix 7. DM II - ISS, BGM ACHS - Levemir 10 units hs 8. Prophylaxis: - Heparin 5,000u sq tid CODE STATUS: FULL CODE Visit type - Emergency Visit Emergency Visit: Yes ED Registration Date: 08/17/17 Care time: The patient presented to the Emergency Department on the above date and was hospitalized for further evaluation of their emergent condition. - New Patient This patient is new to me today: Yes Date on this admission: 08/17/17 - Critical Care Critical Care patient: No Hospitalist Screening - Colonoscopy Questionnaire Colonoscopy Questionnaire: Colonoscopy Questionnaire - Patient: 50 - 75 years old and never had a screening colonoscopy: Unknown History of colon or rectal polyps, or CA: Unknown History of IBD, Crohn's disease or UC: Unknown History of abdominal radiation therapy as a child: Unknown - Relative: 1 with colon or rectal CA, or polyps at age 60 or younger: Unknown Colon or rectal CA diagnosed at age 45 or younger: Unknown Multiple relatives with colon or rectal CA: Unknown - Outcome: Screening Result: Negative Screen
[2017-08-16] MEDS ORDERED: ACETAMINOPHEN 325 MG TABLET (FP) PO PRN (17:33)
[2017-08-16] MEDS ORDERED: ACETAMINOPHEN 325 MG TABLET (FP) PO ONE (17:45)
[2017-08-16] MEDS ORDERED: ACETAMINOPHEN 325 MG TABLET (FP) ONE (18:07)
[2017-08-16] MEDS: HEPARIN NA (PORCINE) 5,000 UNITS/ML 1ML VIAL SQ SCH (21:30)
[2017-08-16] MEDS: INSULIN (LEVEMIR) 100 UNITS/ML UNITS SQ SCH (21:30)
[2017-08-16] MEDS: CARVEDILOL 12.5 MG TABLET (FP) PO SCH (21:30)
[2017-08-16] MEDS: ATORVASTATIN CA 20 MG TABLET (FP) PO SCH (21:30)
[2017-08-16] MEDS: INSULIN SLIDING SCALE (NOVOLOG) 1 VIAL SQ SCH (21:31)
[2017-08-16] MEDS ORDERED: INSULIN (NOVOLOG) ASPART 100 UNITS/ML 10ML VIAL ONE (21:42)
[2017-08-17] MEDS: HEPARIN NA (PORCINE) 5,000 UNITS/ML 1ML VIAL SQ SCH ×3 (06:21→21:21)
[2017-08-17] MEDS: INSULIN SLIDING SCALE (NOVOLOG) 1 VIAL SQ SCH ×4 (06:22→21:21)
[2017-08-17 08:09] LABS: CHLORIDE 112 mmol/L (98-107); POTASSIUM 4.5 mmol/L (3.5-5.1); SODIUM 145 mmol/L (136-145)
[2017-08-17 08:10] LABS: BASO % 0.9 % (0-2.0); HEMATOCRIT 22.8 % (35.4-49); HEMOGLOBIN 7.9 GM/dL (11.7-16.9); MCH 32.1 pg (25.7-33.7); MCHC 34.7 g/dl (32.0-35.9); MEAN CELL VOLUME 92.7 fl (80-96); MEAN PLT VOLUME 8.1 fl (7.5-11.1); NEUT % 60.1 % (42.8-82.8); PLATELET COUNT 191 K/MM3 (134-434); RBC 2.46 M/mm3 (4.00-5.60); RDW 15.3 % (11.9-15.9); WHITE BLOOD COUNT 5.1 K/mm3 (4.0-10.0)
[2017-08-17 08:21] LABS: ALBUMIN 2.6 g/dl (3.4-5.0); ALK PHOS 65 U/L (45-117); ANION GAP 8 (8-16); BILIRUBIN,TOTAL 0.3 mg/dL (0.2-1.0); BLOOD UREA NITROGEN 66 mg/dL (7-18); CALCIUM 8.2 mg/dL (8.5-10.1); CO2 25 mmol/L (21-32); GLUCOSE,RANDOM 66 mg/dL (74-106); MAGNESIUM 2.2 mg/dL (1.8-2.4); PHOSPHOROUS 4.5 mg/dL (2.5-4.9); SGOT/AST 13 U/L (15-37); SGPT/ALT 16 U/L (12-78); TOT PROT 5.6 g/dl (6.4-8.2)
[2017-08-17] MEDS: TAMSULOSIN HCL 0.4 MG CAP.ER.24H (FP) PO SCH (08:32)
[2017-08-17] MEDS: ASPIRIN 81 MG CHEWABLE TABLETS PO SCH (09:22)
[2017-08-17] MEDS: CLOPIDOGREL BISULFATE 75 MG TABLET (FP) PO SCH (09:22)
[2017-08-17] MEDS: FUROSEMIDE 40 MG/4 ML INJECTABLE VIAL IVPUSH SCH (09:22)
[2017-08-17] MEDS: amLODIPine BESYLATE 5 MG TABLET (FP) PO SCH (09:22)
[2017-08-17] MEDS: CARVEDILOL 12.5 MG TABLET (FP) PO SCH ×2 (09:22→21:20)
--- NOTE | 2017-08-17 11:17 | PN ---
Progress Note, Physician Chief Complaint: Events noted pt has pain in left shoulder- unable to lift shoulder Chest pain subsided No h/o fall - Current Medication List Current Medications: Active Medications Acetaminophen (Tylenol -) 650 mg PO Q4H PRN PRN Reason: PAIN LEVEL 1-5 Amlodipine Besylate (Norvasc -) 5 mg PO DAILY [facility] Last Admin: 08/17/17 09:22 Dose: 5 mg Aspirin (Asa -) 81 mg PO DAILY [facility] Last Admin: 08/17/17 09:22 Dose: 81 mg Atorvastatin Calcium (Lipitor -) 20 mg PO HS [facility] Last Admin: 08/16/17 21:30 Dose: 20 mg Carvedilol (Coreg -) 12.5 mg PO BID [facility] Last Admin: 08/17/17 09:22 Dose: 12.5 mg Clopidogrel Bisulfate (Plavix -) 75 mg PO DAILY [facility] Last Admin: 08/17/17 09:22 Dose: 75 mg Furosemide (Lasix Injection -) 40 mg IVPUSH DAILY [facility] Last Admin: 08/17/17 09:22 Dose: 40 mg Heparin Sodium (Porcine) (Heparin -) 5,000 unit SQ TID [facility] Last Admin: 08/17/17 06:21 Dose: 5,000 unit Insulin Aspart (Novolog Vial Sliding Scale -) [address] [facility] PRN Reason: Protocol Last Admin: 08/17/17 06:22 Dose: Not Given Insulin Detemir (Levemir Vial) 10 units SQ [facility] Last Admin: 08/16/17 21:30 Dose: 10 units Tamsulosin HCl (Flomax -) 0.8 mg PO DAILY@0830 [facility] Last Admin: 08/17/17 08:32 Dose: 0.8 mg - Objective Vital Signs: Vital Signs Temperature 98.4 F 08/17/17 05:54 Pulse Rate 73 08/17/17 05:54 Respiratory Rate 20 08/17/17 05:54 Blood Pressure 125/61 08/17/17 05:54 O2 Sat by Pulse Oximetry (%) 97 08/16/17 19:45 Constitutional: Yes: No Distress Cardiovascular: Yes: Regular Rate and Rhythm Respiratory: Yes: Diminished Gastrointestinal: Yes: Normal Bowel Sounds, Soft. No: Tenderness Edema: Yes Edema: LUE: 2+, RUE: 2+, LLE: 2+, RLE: 2+ Labs: CBC, BMP 08/17/17 06:18 08/17/17 06:18 Problem List - Problems (1) CHF (congestive heart failure) Code(s): I50.9 - HEART FAILURE, UNSPECIFIED Qualifiers: Heart failure type: unspecified Heart failure chronicity: acute on chronic Qualified Code(s): I50.9 - Heart failure, unspecified (2) Chest pain Code(s): R07.9 - CHEST PAIN, UNSPECIFIED Qualifiers: Chest pain type: unspecified Qualified Code(s): R07.9 - Chest pain, unspecified (3) ASHD (arteriosclerotic heart disease) Code(s): I25.10 - ATHSCL HEART DISEASE OF [place] CORONARY ARTERY W/O ANG PCTRS (4) Acute renal insufficiency Code(s): N28.9 - DISORDER OF KIDNEY AND URETER, UNSPECIFIED (5) CAD (coronary artery disease) Code(s): I25.10 - ATHSCL HEART DISEASE OF [place] CORONARY ARTERY W/O ANG PCTRS Qualifiers: Coronary Disease-Associated Artery/Lesion type: [place] artery [place] vs. transplanted heart: [place] heart Associated angina: without angina Qualified Code(s): I25.10 - Atherosclerotic heart disease of [place] coronary artery without angina pectoris Assessment/Plan PLAN Pt in volume overload On IV Lasix renal function better continue with meds transfuse one unit PRBC today Has had previous GI work up for anemia-- anemia likely multifactorial, CKD check xray left shoulder
--- NOTE | 2017-08-17 12:12 | CONSULT ---
Consult - text type - Consultation Consultation Note: Renal Consult for VANDA on CKD This is a 57 year old gentleman known to our service with PMhx of CKD (baseline Cr ~2), CVA, CAD, DM, CHF, PVD, COPD who presented with left sided stiffness in neck/arm and chest and admitted for r/o ACS/PE with Cr of 2.4. Pt reports that he continues to have the discomfort on the left side. Denies any SOB now but did have some yesterday. No cough, fever, chills, Abd pain, N/V/D. No flank pain. Making urine. Was taking his diuretics at home as he was prescribed. PMhx: as above Allergies: NKDA Family Hx: [place] Social Hx: Former smoker ROS: as per HPI, all other pertinent ros negative Home Medications Medication Instructions Recorded Amlodipine Besylate [Norvasc -] 5 mg PO DAILY 09/17/16 Clopidogrel Bisulfate [Plavix -] 75 mg PO DAILY 10/17/16 Carvedilol [Coreg -] 12.5 mg PO BID #60 tablet 10/24/16 Acetaminophen [Tylenol .Regular 325 mg PO Q4H PRN #0 tablet 02/25/17 Strength -] Aspirin [ASA -] 81 mg PO DAILY tab.chew 02/25/17 Tamsulosin HCl [Flomax -] 0.8 mg PO DAILY@0830 #30 tab 02/25/17 Atorvastatin Ca [Lipitor] 20 mg PO HS tablet 06/12/17 Ceftriaxone in Is-Osm Dextrose 2 gm IV DAILY #24 froz.piggy 06/12/17 [Ceftriaxone 2 gm Piggyback] Furosemide [Lasix -] 40 mg PO DAILY #90 tablet 06/12/17 Insulin (Levemir) [Levemir Flexpen 10 units SQ DAILY #1 pen 06/12/17 -] Insulin Sliding Scale [Novolog 1 vial SQ ACHS units 06/12/17 Vial Sliding Scale -] Picc Line Flush [Picc Line Flush -] 8 ml IVPUSH PRN PRN ml 06/12/17 Intake & Output 08/14/17 08/15/17 08/16/17 08/17/17 23:59 23:59 23:59 23:59 Intake Total 360 250 Output Total 1850 Balance -1490 250 Weight 90.718 kg 88.904 kg NAD awake and alert RRR, no M/R CTA, no rales soft NT/ND 2+ LE edema, no clubbing or cyanosis No focal neurologic defects CBC, BMP 08/17/17 06:18 08/17/17 06:18 Laboratory Tests 06/03/17 08/17/17 06:15 06:18 Calcium 7.7 L 8.2 L Phosphorus 4.5 Magnesium 2.2 Albumin 2.6 L Current Medications Acetaminophen (Tylenol -) 650 mg PO Q4H PRN PRN Reason: PAIN LEVEL 1-5 Amlodipine Besylate (Norvasc -) 5 mg PO DAILY [facility] Last Admin: 08/17/17 09:22 Dose: 5 mg Aspirin (Asa -) 81 mg PO DAILY [facility] Last Admin: 08/17/17 09:22 Dose: 81 mg Atorvastatin Calcium (Lipitor -) 20 mg PO HS [facility] Last Admin: 08/16/17 21:30 Dose: 20 mg Carvedilol (Coreg -) 12.5 mg PO BID [facility] Last Admin: 08/17/17 09:22 Dose: 12.5 mg Clopidogrel Bisulfate (Plavix -) 75 mg PO DAILY [facility] Last Admin: 08/17/17 09:22 Dose: 75 mg Furosemide (Lasix Injection -) 40 mg IVPUSH DAILY [facility] Last Admin: 08/17/17 09:22 Dose: 40 mg Heparin Sodium (Porcine) (Heparin -) 5,000 unit SQ TID [facility] Last Admin: 08/17/17 06:21 Dose: 5,000 unit Insulin Aspart (Novolog Vial Sliding Scale -) 1 vial SQ ACHS [facility] PRN Reason: Protocol Last Admin: 08/17/17 11:22 Dose: Not Given Insulin Detemir (Levemir Vial) 10 units SQ HS [facility] Last Admin: 08/16/17 21:30 Dose: 10 units Tamsulosin HCl (Flomax -) 0.8 mg PO DAILY@0830 [facility] Last Admin: 08/17/17 08:32 Dose: 0.8 mg 57 year old gentleman known to our service with PMhx of CKD (baseline Cr ~2), CVA, CAD, DM, CHF, PVD, COPD who presented with left sided stiffness in neck/ arm and chest and admitted for r/o ACS/PE with Cr of 2.4. #VANDA on CKD #Left sided chest discomfort r/o ACS/PE #Acute on Chronic Anemia #CHF/Fluid overload #BPH Unable to do CTA as pt has significant CKD and is at increased risk of RENATO Can consider doing a Doppler of the LE to r/o DVT contiue Lasix 40mg IV Daily for mangement of edema not in overt HF now Continue flomax Trend daily weights check iron studies, may require TY as pt has CKD thank you Will follow Prakash Garcia DO
[2017-08-17] MEDS: INSULIN (LEVEMIR) 100 UNITS/ML UNITS SQ SCH (21:21)
[2017-08-17] MEDS: ATORVASTATIN CA 20 MG TABLET (FP) PO SCH (21:21)
[2017-08-18] MEDS: INSULIN SLIDING SCALE (NOVOLOG) 1 VIAL SQ SCH ×4 (06:05→22:12)
[2017-08-18] MEDS: HEPARIN NA (PORCINE) 5,000 UNITS/ML 1ML VIAL SQ SCH ×3 (06:52→22:12)
[2017-08-18 06:54] LABS: BASO % 0.8 % (0-2.0); EOS % 5.8 % (0-4.5); HEMATOCRIT 25.8 % (35.4-49); HEMOGLOBIN 9.1 GM/dL (11.7-16.9); LYMPH % 17.5 % (8-40); MCH 32.4 pg (25.7-33.7); MCHC 35.5 g/dl (32.0-35.9); MEAN CELL VOLUME 91.3 fl (80-96); MEAN PLT VOLUME 8.3 fl (7.5-11.1); MONO % 8.6 % (3.8-10.2); NEUT % 67.3 % (42.8-82.8); PLATELET COUNT 196 K/MM3 (134-434); RBC 2.82 M/mm3 (4.00-5.60); RDW 16.1 % (11.9-15.9); WHITE BLOOD COUNT 5.3 K/mm3 (4.0-10.0)
[2017-08-18 07:08] LABS: ALBUMIN 2.8 g/dl (3.4-5.0); ANION GAP 4 (8-16); BLOOD UREA NITROGEN 68 mg/dL (7-18); CHLORIDE 110 mmol/L (98-107); CO2 27 mmol/L (21-32); GLUCOSE,RANDOM 77 mg/dL (74-106); PHOSPHOROUS 4.5 mg/dL (2.5-4.9); POTASSIUM 4.9 mmol/L (3.5-5.1); SGOT/AST 11 U/L (15-37); SODIUM 141 mmol/L (136-145)
[2017-08-18 07:10] LABS: ALK PHOS 72 U/L (45-117); BILIRUBIN,TOTAL 0.2 mg/dL (0.2-1.0); SGPT/ALT 17 U/L (12-78); TOT PROT 5.8 g/dl (6.4-8.2)
[2017-08-18] MEDS ORDERED: PT OWN MED DRAWER 7, Y5N ONE (08:12)
--- NOTE | 2017-08-18 08:50 | PN ---
Progress Note, Physician Chief Complaint: Frequent admissions, well known to me: Severe PAD s/p b/l LE bypass CAD s/p PCI, multiple- last > 1 year ago H/o CVA Carotid disease DM HTN Chronic diastolic CHF CKD Now admitted again w/ complaints of left sided "stiffness" When pressed for specific details, he states his chest felt tight: both with and without exertion. Denies N/V or diaphoresis No palps or syncope + LE edema worsening over last week History of Present Illness: Persantine MIBI 09/2016 here: diaphragm attenuation, no ischemia. - Current Medication List Current Medications: Active Medications Acetaminophen (Tylenol -) 650 mg PO Q4H PRN PRN Reason: PAIN LEVEL 1-5 Amlodipine Besylate (Norvasc -) 5 mg PO DAILY [facility] Last Admin: 08/17/17 09:22 Dose: 5 mg Aspirin (Asa -) 81 mg PO DAILY [facility] Last Admin: 08/17/17 09:22 Dose: 81 mg Atorvastatin Calcium (Lipitor -) 20 mg PO HS [facility] Last Admin: 08/17/17 21:21 Dose: 20 mg Carvedilol (Coreg -) 12.5 mg PO BID [facility] Last Admin: 08/17/17 21:20 Dose: 12.5 mg Clopidogrel Bisulfate (Plavix -) 75 mg PO DAILY [facility] Last Admin: 08/17/17 09:22 Dose: 75 mg Furosemide (Lasix Injection -) 40 mg IVPUSH DAILY [facility] Last Admin: 08/17/17 09:22 Dose: 40 mg Heparin Sodium (Porcine) (Heparin -) 5,000 unit SQ TID [facility] Last Admin: 08/18/17 06:52 Dose: 5,000 unit Insulin Aspart (Novolog Vial Sliding Scale -) 1 vial SQ [facility] PRN Reason: Protocol Last Admin: 08/18/17 06:05 Dose: Not Given Insulin Detemir (Levemir Vial) 10 units SQ [facility] Last Admin: 08/17/17 21:21 Dose: 10 units Tamsulosin HCl (Flomax -) 0.8 mg PO DAILY@0830 [facility] Last Admin: 08/17/17 08:32 Dose: 0.8 mg - Objective Vital Signs: Vital Signs Temperature 99.2 F 08/18/17 06:00 Pulse Rate 69 08/18/17 06:00 Respiratory Rate 20 08/18/17 06:00 Blood Pressure 143/68 08/18/17 06:00 O2 Sat by Pulse Oximetry (%) 96 08/17/17 21:00 Constitutional: Yes: No Distress, Calm Eyes: Yes: Conjunctiva Clear, EOM Intact HENT: Yes: Atraumatic, Normocephalic Neck: Yes: Trachea Midline Cardiovascular: Yes: Regular Rate and Rhythm Respiratory: Yes: Other (decreased breath sounds at bases b/l) Gastrointestinal: Yes: Soft, Abdomen, Obese Edema: Yes Edema: RUE: 2+, LLE: 2+ Neurological: Yes: Alert, Oriented ...Motor Strength: WNL Labs: CBC, BMP 08/18/17 06:25 08/18/17 06:25 Laboratory Tests 06/01/17 06/04/17 06/04/17 06:30 06:07 06:07 WBC 6.8 Hgb 8.2 L Plt Count 200 Sodium Potassium 5.0 BUN Creatinine 2.7 H Stool Occult Blood Negative 06/05/17 06/06/17 09:54 06:30 WBC 5.7 Hgb 8.5 L Plt Count 211 Sodium 137 Potassium 5.1 BUN 65 H Creatinine 2.0 H Stool Occult Blood Laboratory Tests 08/16/17 13:31 B-Natriuretic Peptide 1738.46 H - ....Imaging Chest X-ray: Image Reviewed EKG: Image Reviewed (NSR 79bpm, LAE, RBBB, LAHB) Problem List - Problems (1) Acute on chronic diastolic CHF (congestive heart failure) Code(s): I50.33 - ACUTE ON CHRONIC DIASTOLIC (CONGESTIVE) HEART FAILURE (2) CAD (coronary artery disease) Code(s): I25.10 - ATHSCL HEART DISEASE OF [place] CORONARY ARTERY W/O ANG PCTRS Qualifiers: Coronary Disease-Associated Artery/Lesion type: [place] artery Associated angina: with stable angina (3) History of coronary artery stent placement Code(s): Z95.5 - PRESENCE OF CORONARY ANGIOPLASTY IMPLANT AND GRAFT (4) CKD (chronic kidney disease) stage 3, GFR 30-59 ml/min Code(s): N18.3 - CHRONIC KIDNEY DISEASE, STAGE 3 (MODERATE) (5) Diabetes Code(s): E11.9 - TYPE 2 DIABETES MELLITUS WITHOUT COMPLICATIONS Qualifiers: Diabetes mellitus type: type 2 Diabetes mellitus nursing home insulin use: with nursing home use Diabetes mellitus complication status: with circulatory complication (6) PAD (peripheral artery disease) Code(s): I73.9 - PERIPHERAL VASCULAR DISEASE, UNSPECIFIED (7) Abnormal ECG Code(s): R94.31 - ABNORMAL ELECTROCARDIOGRAM [ECG] [EKG] Assessment/Plan IMP: Acute on chronic diastolic CHF Known CAD s/p multivessel PCI- last > 1 year DM CKD PAD REC: 1. Cycle cardiac enzymes and repeat Echo today for EF assessment 2. Agree w/ IV Lasix, with close follow up of renal fxn; daily weights. 3. Cont ASA/Plavix/Coreg and statin. MICHAEL held due to GFR. 4. Once euvolemic, will repeat pharm stress test to compare with 09/2016 to r/o ischemia as precipitant of his CHF decompensation. Thank you.
[2017-08-18] MEDS: CARVEDILOL 12.5 MG TABLET (FP) PO SCH ×2 (09:04→22:12)
[2017-08-18] MEDS: TAMSULOSIN HCL 0.4 MG CAP.ER.24H (FP) PO SCH (09:04)
[2017-08-18] MEDS: FUROSEMIDE 40 MG/4 ML INJECTABLE VIAL IVPUSH SCH (09:04)
[2017-08-18] MEDS: ASPIRIN 81 MG CHEWABLE TABLETS PO SCH (09:04)
[2017-08-18] MEDS: amLODIPine BESYLATE 5 MG TABLET (FP) PO SCH (09:04)
[2017-08-18] MEDS: CLOPIDOGREL BISULFATE 75 MG TABLET (FP) PO SCH (09:04)
--- NOTE | 2017-08-18 09:51 | PN ---
Progress Note, Physician Chief Complaint: still feeling SOB no chest pain - Current Medication List Current Medications: Active Medications Acetaminophen (Tylenol -) 650 mg PO Q4H PRN PRN Reason: PAIN LEVEL 1-5 Amlodipine Besylate (Norvasc -) 5 mg PO DAILY [facility] Last Admin: 08/18/17 09:04 Dose: 5 mg Aspirin (Asa -) 81 mg PO DAILY [facility] Last Admin: 08/18/17 09:04 Dose: 81 mg Atorvastatin Calcium (Lipitor -) 20 mg PO HS [facility] Last Admin: 08/17/17 21:21 Dose: 20 mg Carvedilol (Coreg -) 12.5 mg PO BID [facility] Last Admin: 08/18/17 09:04 Dose: 12.5 mg Clopidogrel Bisulfate (Plavix -) 75 mg PO DAILY [facility] Last Admin: 08/18/17 09:04 Dose: 75 mg Furosemide (Lasix Injection -) 40 mg IVPUSH DAILY [facility] Last Admin: 08/18/17 09:04 Dose: 40 mg Heparin Sodium (Porcine) (Heparin -) 5,000 unit SQ TID [facility] Last Admin: 08/18/17 06:52 Dose: 5,000 unit Insulin Aspart (Novolog Vial Sliding Scale -) 1 vial SQ [facility] PRN Reason: Protocol Last Admin: 08/18/17 06:05 Dose: Not Given Insulin Detemir (Levemir Vial) 10 units SQ [facility] Last Admin: 08/17/17 21:21 Dose: 10 units Tamsulosin HCl (Flomax -) 0.8 mg PO DAILY@0830 [facility] Last Admin: 08/18/17 09:04 Dose: 0.8 mg - Objective Vital Signs: Vital Signs Temperature 99.2 F 08/18/17 06:00 Pulse Rate 69 08/18/17 06:00 Respiratory Rate 20 08/18/17 06:00 Blood Pressure 143/68 08/18/17 06:00 O2 Sat by Pulse Oximetry (%) 96 08/17/17 21:00 Constitutional: Yes: No Distress Cardiovascular: Yes: Regular Rate and Rhythm Respiratory: Yes: Diminished Gastrointestinal: Yes: Normal Bowel Sounds, Soft. No: Tenderness Edema: Yes Edema: LLE: 2+, RLE: 2+ Labs: CBC, BMP 08/18/17 06:25 08/18/17 06:25 Problem List - Problems (1) CHF (congestive heart failure) Code(s): I50.9 - HEART FAILURE, UNSPECIFIED Qualifiers: Heart failure type: unspecified Heart failure chronicity: acute on chronic Qualified Code(s): I50.9 - Heart failure, unspecified (2) Chest pain Code(s): R07.9 - CHEST PAIN, UNSPECIFIED Qualifiers: Chest pain type: unspecified Qualified Code(s): R07.9 - Chest pain, unspecified (3) ASHD (arteriosclerotic heart disease) Code(s): I25.10 - ATHSCL HEART DISEASE OF [place] CORONARY ARTERY W/O ANG PCTRS (4) Acute renal insufficiency Code(s): N28.9 - DISORDER OF KIDNEY AND URETER, UNSPECIFIED (5) CAD (coronary artery disease) Code(s): I25.10 - ATHSCL HEART DISEASE OF [place] CORONARY ARTERY W/O ANG PCTRS Qualifiers: Coronary Disease-Associated Artery/Lesion type: [place] artery [place] vs. transplanted heart: [place] heart Associated angina: without angina Qualified Code(s): I25.10 - Atherosclerotic heart disease of [place] coronary artery without angina pectoris Assessment/Plan PLAN Pt in volume overload On IV Lasix renal function better continue with meds s/p one unit PRBC Has had previous GI work up for anemia-- anemia likely multifactorial, CKD xray left shoulder-noted
--- NOTE | 2017-08-18 16:54 | PN ---
Progress Note (short form) - Note Progress Note: Renal follow up for CKD/Volume overload Pt seen and examined at the bedside no acute complaints making urine sob unchanged edema unchanged Vital Signs Temperature 98.3 F 08/18/17 14:00 Pulse Rate 72 08/18/17 14:00 Respiratory Rate 22 08/18/17 14:00 Blood Pressure 146/76 08/18/17 14:00 O2 Sat by Pulse Oximetry (%) 95 08/18/17 10:00 Intake & Output 08/15/17 08/16/17 08/17/17 08/18/17 23:59 23:59 23:59 23:59 Intake Total 360 850 690 Output Total 9382 634 9957 Balance -1490 350 -560 Weight 90.718 kg 88.904 kg 88.813 kg NAD awake and alert RRR, no M/R CTA, no rales soft NT/ND 2+ LE edema, no clubbing or cyanosis No focal neurologic defects CBC, BMP 08/18/17 06:25 08/18/17 06:25 Current Medications Acetaminophen (Tylenol -) 650 mg PO Q4H PRN PRN Reason: PAIN LEVEL 1-5 Last Admin: 08/18/17 14:30 Dose: 650 mg Amlodipine Besylate (Norvasc -) 5 mg PO DAILY [facility] Last Admin: 08/18/17 09:04 Dose: 5 mg Aspirin (Asa -) 81 mg PO DAILY [facility] Last Admin: 08/18/17 09:04 Dose: 81 mg Atorvastatin Calcium (Lipitor -) 20 mg PO HS [facility] Last Admin: 08/17/17 21:21 Dose: 20 mg Carvedilol (Coreg -) 12.5 mg PO BID [facility] Last Admin: 08/18/17 09:04 Dose: 12.5 mg Clopidogrel Bisulfate (Plavix -) 75 mg PO DAILY [facility] Last Admin: 08/18/17 09:04 Dose: 75 mg Furosemide (Lasix Injection -) 40 mg IVPUSH DAILY [facility] Last Admin: 08/18/17 09:04 Dose: 40 mg Heparin Sodium (Porcine) (Heparin -) 5,000 unit SQ TID [facility] Last Admin: 08/18/17 16:25 Dose: 5,000 unit Insulin Aspart (Novolog Vial Sliding Scale -) 1 vial SQ ACHS [facility] PRN Reason: Protocol Last Admin: 04/20/18 16:25 Dose: 2 unit Insulin Detemir (Levemir Vial) 10 units SQ HS [facility] Last Admin: 08/17/17 21:21 Dose: 10 units Tamsulosin HCl (Flomax -) 0.8 mg PO DAILY@0830 [facility] Last Admin: 08/18/17 09:04 Dose: 0.8 mg 57 year old gentleman known to our service with PMhx of CKD (baseline Cr ~2), CVA, CAD, DM, CHF, PVD, COPD who presented with left sided stiffness in neck/ arm and chest and admitted for r/o ACS/PE with Cr of 2.4. #VANDA on CKD #Left sided chest discomfort r/o ACS/PE #Acute on Chronic Anemia #CHF/Fluid overload #BPH Renal function stable, slighly improved from admission Doppler showed no DVT continue Lasix Daily trend renal function and weights thank you Will follow Prakash Garcia DO
[2017-08-18] MEDS: ATORVASTATIN CA 20 MG TABLET (FP) PO SCH (22:11)
[2017-08-18] MEDS: INSULIN (LEVEMIR) 100 UNITS/ML UNITS SQ SCH (22:11)
[2017-08-19] MEDS: INSULIN SLIDING SCALE (NOVOLOG) 1 VIAL SQ SCH ×4 (06:14→22:16)
[2017-08-19] MEDS: HEPARIN NA (PORCINE) 5,000 UNITS/ML 1ML VIAL SQ SCH ×3 (06:16→22:20)
[2017-08-19 09:03] LABS: ANION GAP 7 (8-16); BLOOD UREA NITROGEN 59 mg/dL (7-18); CALCIUM 8.6 mg/dL (8.5-10.1); CHLORIDE 107 mmol/L (98-107); CO2 27 mmol/L (21-32); CREATININE 1.8 mg/dL (0.7-1.3); GLUCOSE,RANDOM 135 mg/dL (74-106); POTASSIUM 5.1 mmol/L (3.5-5.1); SODIUM 141 mmol/L (136-145)
--- NOTE | 2017-08-19 09:11 | PN ---
Progress Note, Physician History of Present Illness: Severe PAD s/p b/l LE bypass CAD s/p PCI, multiple- last > 1 year ago H/o CVA Carotid disease DM HTN Chronic diastolic CHF CKD - Current Medication List Current Medications: Active Medications Acetaminophen (Tylenol -) 650 mg PO Q4H PRN PRN Reason: PAIN LEVEL 1-5 Last Admin: 08/18/17 14:30 Dose: 650 mg Amlodipine Besylate (Norvasc -) 5 mg PO DAILY [facility] Last Admin: 08/18/17 09:04 Dose: 5 mg Aspirin (Asa -) 81 mg PO DAILY [facility] Last Admin: 08/18/17 09:04 Dose: 81 mg Atorvastatin Calcium (Lipitor -) 20 mg PO HS [facility] Last Admin: 08/18/17 22:11 Dose: 20 mg Carvedilol (Coreg -) 12.5 mg PO BID [facility] Last Admin: 08/18/17 22:12 Dose: 12.5 mg Clopidogrel Bisulfate (Plavix -) 75 mg PO DAILY [facility] Last Admin: 08/18/17 09:04 Dose: 75 mg Furosemide (Lasix Injection -) 40 mg IVPUSH DAILY [facility] Last Admin: 08/18/17 09:04 Dose: 40 mg Heparin Sodium (Porcine) (Heparin -) 5,000 unit SQ TID [facility] Last Admin: 08/19/17 06:16 Dose: 5,000 unit Insulin Aspart (Novolog Vial Sliding Scale -) 1 vial SQ ACHS [facility] PRN Reason: Protocol Last Admin: 08/19/17 06:14 Dose: Not Given Insulin Detemir (Levemir Vial) 10 units SQ [facility] Last Admin: 08/18/17 22:11 Dose: 10 units Tamsulosin HCl (Flomax -) 0.8 mg PO DAILY@0830 [facility] Last Admin: 08/18/17 09:04 Dose: 0.8 mg - Objective Vital Signs: Vital Signs Temperature 97.9 F 08/19/17 05:00 Pulse Rate 81 08/19/17 05:00 Respiratory Rate 20 08/19/17 05:00 Blood Pressure 136/56 08/19/17 05:00 O2 Sat by Pulse Oximetry (%) 95 08/18/17 20:56 Eyes: Yes: WNL, Conjunctiva Clear, EOM Intact HENT: Yes: WNL, Atraumatic, Normocephalic Neck: Yes: WNL, Supple, Trachea Midline Cardiovascular: Yes: WNL, Regular Rate and Rhythm Respiratory: Yes: WNL, Regular, CTA Bilaterally Gastrointestinal: Yes: WNL, Normal Bowel Sounds Genitourinary: Yes: WNL Musculoskeletal: Yes: WNL Extremities: Yes: Erythema Edema: Yes Integumentary: Yes: WNL Neurological: Yes: WNL, Alert, Oriented ...Motor Strength: WNL Psychiatric: Yes: WNL Labs: CBC, BMP 08/18/17 06:25 Assessment/Plan IMP: Acute on chronic diastolic CHF Known CAD s/p multivessel PCI- last > 1 year DM CKD PAD REC: 1. Cycle cardiac enzymes and repeat Echo today for EF assessment 2. Agree w/ IV Lasix, with close follow up of renal fxn; daily weights. 3. Cont ASA/Plavix/Coreg and statin. MICHAEL held due to GFR. 4. Once euvolemic, will repeat pharm stress test to compare with 09/2016 to r/o ischemia as precipitant of his CHF decompensation.
[2017-08-19] MEDS: TAMSULOSIN HCL 0.4 MG CAP.ER.24H (FP) PO SCH (09:14)
[2017-08-19] MEDS: amLODIPine BESYLATE 5 MG TABLET (FP) PO SCH (09:14)
[2017-08-19] MEDS: CARVEDILOL 12.5 MG TABLET (FP) PO SCH ×2 (09:14→22:20)
[2017-08-19] MEDS: ASPIRIN 81 MG CHEWABLE TABLETS PO SCH (09:14)
[2017-08-19] MEDS: FUROSEMIDE 40 MG/4 ML INJECTABLE VIAL IVPUSH SCH ×3 (09:14→13:42)
[2017-08-19] MEDS: CLOPIDOGREL BISULFATE 75 MG TABLET (FP) PO SCH (09:14)
--- NOTE | 2017-08-19 10:43 | PN ---
Progress Note (short form) - Note Progress Note: Renal follow up for CKD/Volume overload Pt seen and examined at the bedside no acute complaints Vital Signs Temperature 98.0 F 08/19/17 09:00 Pulse Rate 80 08/19/17 09:00 Respiratory Rate 20 08/19/17 09:00 Blood Pressure 140/64 08/19/17 09:00 O2 Sat by Pulse Oximetry (%) 96 08/19/17 09:00 Intake & Output 08/16/17 08/17/17 08/18/17 08/19/17 23:59 23:59 23:59 23:59 Intake Total 240 751 7868 280 Output Total 2825 440 5668 900 Balance -1490 350 -980 -620 Weight 90.718 kg 88.904 kg 88.813 kg NAD awake and alert RRR, no M/R CTA, no rales soft NT/ND 2+ LE edema, no clubbing or cyanosis No focal neurologic defects CBC, BMP 08/18/17 06:25 08/19/17 08:15 Current Medications Acetaminophen (Tylenol -) 650 mg PO Q4H PRN PRN Reason: PAIN LEVEL 1-5 Last Admin: 08/18/17 14:30 Dose: 650 mg Amlodipine Besylate (Norvasc -) 5 mg PO DAILY [facility] Last Admin: 08/19/17 09:14 Dose: 5 mg Aspirin (Asa -) 81 mg PO DAILY [facility] Last Admin: 08/19/17 09:14 Dose: 81 mg Atorvastatin Calcium (Lipitor -) 20 mg PO HS [facility] Last Admin: 08/18/17 22:11 Dose: 20 mg Carvedilol (Coreg -) 12.5 mg PO BID [facility] Last Admin: 08/19/17 09:14 Dose: 12.5 mg Clopidogrel Bisulfate (Plavix -) 75 mg PO DAILY [facility] Last Admin: 08/19/17 09:14 Dose: 75 mg Furosemide (Lasix Injection -) 40 mg IVPUSH DAILY [facility] Last Admin: 08/18/17 09:04 Dose: 40 mg Heparin Sodium (Porcine) (Heparin -) 5,000 unit SQ TID [facility] Last Admin: 08/19/17 06:16 Dose: 5,000 unit Insulin Aspart (Novolog Vial Sliding Scale -) 1 vial SQ ACHS [facility] PRN Reason: Protocol Last Admin: 08/19/17 06:14 Dose: Not Given Insulin Detemir (Levemir Vial) 10 units SQ HS [facility] Last Admin: 08/18/17 22:11 Dose: 10 units Tamsulosin HCl (Flomax -) 0.8 mg PO DAILY@0830 [facility] Last Admin: 08/19/17 09:14 Dose: 0.8 mg 57 year old gentleman known to our service with PMhx of CKD (baseline Cr ~2), CVA, CAD, DM, CHF, PVD, COPD who presented with left sided stiffness in neck/ arm and chest and admitted for r/o ACS/PE with Cr of 2.4. #VANDA on CKD #Left sided chest discomfort r/o ACS/PE #Acute on Chronic Anemia #CHF/Fluid overload #BPH Renal function improving continue Lasix Daily Trend daily weights continue salt restriction Continue flomax s/p 1 unit prbc check iron studies, may need TY as pt has CKD Prakash Garcia DO
--- NOTE | 2017-08-19 12:37 | PN ---
Progress Note, Physician - Current Medication List Current Medications: Active Medications Acetaminophen (Tylenol -) 650 mg PO Q4H PRN PRN Reason: PAIN LEVEL 1-5 Last Admin: 08/18/17 14:30 Dose: 650 mg Amlodipine Besylate (Norvasc -) 5 mg PO DAILY [facility] Last Admin: 08/19/17 09:14 Dose: 5 mg Aspirin (Asa -) 81 mg PO DAILY [facility] Last Admin: 08/19/17 09:14 Dose: 81 mg Atorvastatin Calcium (Lipitor -) 20 mg PO HS [facility] Last Admin: 08/18/17 22:11 Dose: 20 mg Carvedilol (Coreg -) 12.5 mg PO BID [facility] Last Admin: 08/19/17 09:14 Dose: 12.5 mg Clopidogrel Bisulfate (Plavix -) 75 mg PO DAILY [facility] Last Admin: 08/19/17 09:14 Dose: 75 mg Furosemide (Lasix Injection -) 40 mg IVPUSH DAILY [facility] Last Admin: 08/18/17 09:04 Dose: 40 mg Heparin Sodium (Porcine) (Heparin -) 5,000 unit SQ TID [facility] Last Admin: 08/19/17 06:16 Dose: 5,000 unit Insulin Aspart (Novolog Vial Sliding Scale -) 1 vial SQ [facility] PRN Reason: Protocol Last Admin: 08/19/17 06:14 Dose: Not Given Insulin Detemir (Levemir Vial) 10 units SQ [facility] Last Admin: 08/18/17 22:11 Dose: 10 units Tamsulosin HCl (Flomax -) 0.8 mg PO DAILY@0830 [facility] Last Admin: 08/19/17 09:14 Dose: 0.8 mg - Objective Vital Signs: Vital Signs Temperature 98.0 F 08/19/17 09:00 Pulse Rate 80 08/19/17 09:00 Respiratory Rate 20 08/19/17 09:00 Blood Pressure 140/64 08/19/17 09:00 O2 Sat by Pulse Oximetry (%) 96 08/19/17 09:00 Labs: CBC, BMP 08/18/17 06:25 08/19/17 08:15 Problem List - Problems (1) CHF (congestive heart failure) Code(s): I50.9 - HEART FAILURE, UNSPECIFIED Qualifiers: Heart failure type: unspecified Heart failure chronicity: acute on chronic Qualified Code(s): I50.9 - Heart failure, unspecified (2) Chest pain Code(s): R07.9 - CHEST PAIN, UNSPECIFIED Qualifiers: Chest pain type: unspecified Qualified Code(s): R07.9 - Chest pain, unspecified (3) ASHD (arteriosclerotic heart disease) Code(s): I25.10 - ATHSCL HEART DISEASE OF [place] CORONARY ARTERY W/O ANG PCTRS (4) Acute renal insufficiency Code(s): N28.9 - DISORDER OF KIDNEY AND URETER, UNSPECIFIED (5) CAD (coronary artery disease) Code(s): I25.10 - ATHSCL HEART DISEASE OF [place] CORONARY ARTERY W/O ANG PCTRS Qualifiers: Coronary Disease-Associated Artery/Lesion type: [place] artery [place] vs. transplanted heart: [place] heart Associated angina: without angina Qualified Code(s): I25.10 - Atherosclerotic heart disease of [place] coronary artery without angina pectoris
[2017-08-19] MEDS: INSULIN (LEVEMIR) 100 UNITS/ML UNITS SQ SCH (22:16)
[2017-08-19] MEDS: ATORVASTATIN CA 20 MG TABLET (FP) PO SCH (22:20)
[2017-08-20] MEDS: INSULIN SLIDING SCALE (NOVOLOG) 1 VIAL SQ SCH ×4 (06:35→21:17)
[2017-08-20] MEDS: HEPARIN NA (PORCINE) 5,000 UNITS/ML 1ML VIAL SQ SCH ×3 (06:41→21:17)
[2017-08-20 08:28] LABS: ANION GAP 7 (8-16); BLOOD UREA NITROGEN 60 mg/dL (7-18); CALCIUM 8.5 mg/dL (8.5-10.1); CHLORIDE 107 mmol/L (98-107); CO2 26 mmol/L (21-32); GLUCOSE,RANDOM 86 mg/dL (74-106); PHOSPHOROUS 4.1 mg/dL (2.5-4.9); SODIUM 140 mmol/L (136-145)
[2017-08-20 08:38] LABS: POTASSIUM 5.4 mmol/L (3.5-5.1)
--- NOTE | 2017-08-20 08:44 | PN ---
Progress Note, Physician History of Present Illness: Severe PAD s/p b/l LE bypass CAD s/p PCI, multiple- last > 1 year ago H/o CVA Carotid disease DM HTN Chronic diastolic CHF CKD - Current Medication List Current Medications: Active Medications Acetaminophen (Tylenol -) 650 mg PO Q4H PRN PRN Reason: PAIN LEVEL 1-5 Last Admin: 08/18/17 14:30 Dose: 650 mg Amlodipine Besylate (Norvasc -) 5 mg PO DAILY [facility] Last Admin: 08/19/17 09:14 Dose: 5 mg Aspirin (Asa -) 81 mg PO DAILY [facility] Last Admin: 08/19/17 09:14 Dose: 81 mg Atorvastatin Calcium (Lipitor -) 20 mg PO HS [facility] Last Admin: 08/19/17 22:20 Dose: 20 mg Carvedilol (Coreg -) 12.5 mg PO BID [facility] Last Admin: 08/19/17 22:20 Dose: 12.5 mg Clopidogrel Bisulfate (Plavix -) 75 mg PO DAILY [facility] Last Admin: 08/19/17 09:14 Dose: 75 mg Furosemide (Lasix Injection -) 60 mg IVPUSH DAILY [facility] Last Admin: 08/19/17 13:42 Dose: 60 mg Heparin Sodium (Porcine) (Heparin -) 5,000 unit SQ TID [facility] Last Admin: 08/20/17 06:41 Dose: 5,000 unit Insulin Aspart (Novolog Vial Sliding Scale -) 1 vial SQ [facility] PRN Reason: Protocol Last Admin: 08/20/17 06:35 Dose: Not Given Insulin Detemir (Levemir Vial) 10 units SQ [facility] Last Admin: 08/19/17 22:16 Dose: 10 units Tamsulosin HCl (Flomax -) 0.8 mg PO DAILY@0830 [facility] Last Admin: 08/19/17 09:14 Dose: 0.8 mg - Objective Vital Signs: Vital Signs Temperature 98 F 08/20/17 05:46 Pulse Rate 76 08/20/17 05:46 Respiratory Rate 20 08/20/17 05:46 Blood Pressure 124/52 08/20/17 05:46 O2 Sat by Pulse Oximetry (%) 96 08/19/17 21:00 Eyes: Yes: WNL, Conjunctiva Clear, EOM Intact HENT: Yes: WNL, Atraumatic, Normocephalic Neck: Yes: WNL, Supple, Trachea Midline Cardiovascular: Yes: WNL, Regular Rate and Rhythm Respiratory: Yes: WNL, Regular, CTA Bilaterally Gastrointestinal: Yes: WNL, Normal Bowel Sounds Genitourinary: Yes: WNL Musculoskeletal: Yes: WNL Extremities: Yes: Erythema Edema: Yes Edema: LLE: 2+, RLE: 2+ Integumentary: Yes: WNL Neurological: Yes: WNL, Alert, Oriented ...Motor Strength: WNL Psychiatric: Yes: WNL Labs: CBC, BMP 08/20/17 06:00 08/20/17 06:00 Assessment/Plan IMP: Acute on chronic diastolic CHF Known CAD s/p multivessel PCI- last > 1 year DM CKD PAD REC: Agree w/ IV Lasix, with close follow up of renal fxn; daily weights. Cont ASA/Plavix/Coreg and statin. MICHAEL held due to GFR. Once euvolemic, will repeat pharm stress test to compare with 09/2016 to r/o ischemia as precipitant of his CHF decompensation. coverage for dr. Brasher
[2017-08-20] MEDS: CLOPIDOGREL BISULFATE 75 MG TABLET (FP) PO SCH (09:19)
[2017-08-20] MEDS: CARVEDILOL 12.5 MG TABLET (FP) PO SCH ×2 (09:19→21:17)
[2017-08-20] MEDS: amLODIPine BESYLATE 5 MG TABLET (FP) PO SCH (09:20)
[2017-08-20] MEDS: TAMSULOSIN HCL 0.4 MG CAP.ER.24H (FP) PO SCH (09:20)
[2017-08-20] MEDS: FUROSEMIDE 40 MG/4 ML INJECTABLE VIAL IVPUSH SCH (09:20)
[2017-08-20] MEDS: ASPIRIN 81 MG CHEWABLE TABLETS PO SCH (09:20)
--- NOTE | 2017-08-20 09:20 | PN ---
Progress Note (short form) - Note Progress Note: Renal follow up for CKD/Volume overload Pt seen and examined at the bedside awake and alert no acute complaints feels better, sob is improved le edema feels better Vital Signs Temperature 98 F 08/20/17 05:46 Pulse Rate 76 08/20/17 05:46 Respiratory Rate 20 08/20/17 05:46 Blood Pressure 124/52 08/20/17 05:46 O2 Sat by Pulse Oximetry (%) 96 08/19/17 21:00 Intake & Output 08/17/17 08/18/17 08/19/17 08/20/17 23:59 23:59 23:59 23:59 Intake Total 850 1170 930 100 Output Total 500 2150 900 Balance 350 -980 30 100 Weight 88.904 kg 88.813 kg 88.178 kg 87.362 kg NAD awake and alert RRR, no M/R CTA, no rales soft NT/ND 2+ LE edema, no clubbing or cyanosis No focal neurologic defects CBC, BMP 08/20/17 06:00 08/20/17 06:00 Current Medications Acetaminophen (Tylenol -) 650 mg PO Q4H PRN PRN Reason: PAIN LEVEL 1-5 Last Admin: 08/18/17 14:30 Dose: 650 mg Amlodipine Besylate (Norvasc -) 5 mg PO DAILY [facility] Last Admin: 08/19/17 09:14 Dose: 5 mg Aspirin (Asa -) 81 mg PO DAILY [facility] Last Admin: 08/19/17 09:14 Dose: 81 mg Atorvastatin Calcium (Lipitor -) 20 mg PO HS [facility] Last Admin: 08/19/17 22:20 Dose: 20 mg Carvedilol (Coreg -) 12.5 mg PO BID [facility] Last Admin: 08/19/17 22:20 Dose: 12.5 mg Clopidogrel Bisulfate (Plavix -) 75 mg PO DAILY [facility] Last Admin: 08/19/17 09:14 Dose: 75 mg Furosemide (Lasix Injection -) 60 mg IVPUSH DAILY [facility] Last Admin: 08/19/17 13:42 Dose: 60 mg Heparin Sodium (Porcine) (Heparin -) 5,000 unit SQ TID [facility] Last Admin: 08/20/17 06:41 Dose: 5,000 unit Insulin Aspart (Novolog Vial Sliding Scale -) 1 vial SQ ACHS [facility] PRN Reason: Protocol Last Admin: 08/20/17 06:35 Dose: Not Given Insulin Detemir (Levemir Vial) 10 units SQ HS [facility] Last Admin: 08/19/17 22:16 Dose: 10 units Tamsulosin HCl (Flomax -) 0.8 mg PO DAILY@0830 [facility] Last Admin: 08/19/17 09:14 Dose: 0.8 mg 57 year old gentleman known to our service with PMhx of CKD (baseline Cr ~2), CVA, CAD, DM, CHF, PVD, COPD who presented with left sided stiffness in neck/ arm and chest and admitted for r/o ACS/PE with Cr of 2.4. #VANDA on CKD #Left sided chest discomfort r/o ACS/PE #Acute on Chronic Anemia #CHF/Fluid overload #BPH Renal function stable K is 5.4 but hemolized Continue Lasix IV daily trend daily weights and renal function continue flomax Prakash Garcia DO
--- NOTE | 2017-08-20 13:34 | PN ---
Progress Note, Physician Chief Complaint: feels better today urinating well - Current Medication List Current Medications: Active Medications Acetaminophen (Tylenol -) 650 mg PO Q4H PRN PRN Reason: PAIN LEVEL 1-5 Last Admin: 08/18/17 14:30 Dose: 650 mg Amlodipine Besylate (Norvasc -) 5 mg PO DAILY [facility] Last Admin: 08/20/17 09:20 Dose: 5 mg Aspirin (Asa -) 81 mg PO DAILY [facility] Last Admin: 08/20/17 09:20 Dose: 81 mg Atorvastatin Calcium (Lipitor -) 20 mg PO HS [facility] Last Admin: 08/19/17 22:20 Dose: 20 mg Carvedilol (Coreg -) 12.5 mg PO BID [facility] Last Admin: 08/20/17 09:19 Dose: 12.5 mg Clopidogrel Bisulfate (Plavix -) 75 mg PO DAILY [facility] Last Admin: 08/20/17 09:19 Dose: 75 mg Furosemide (Lasix Injection -) 60 mg IVPUSH DAILY [facility] Last Admin: 08/20/17 09:20 Dose: 60 mg Heparin Sodium (Porcine) (Heparin -) 5,000 unit SQ TID [facility] Last Admin: 08/20/17 06:41 Dose: 5,000 unit Insulin Aspart (Novolog Vial Sliding Scale -) 1 vial SQ [facility] PRN Reason: Protocol Last Admin: 08/20/17 12:06 Dose: 2 unit Insulin Detemir (Levemir Vial) 10 units SQ [facility] Last Admin: 08/19/17 22:16 Dose: 10 units Tamsulosin HCl (Flomax -) 0.8 mg PO DAILY@0830 [facility] Last Admin: 08/20/17 09:20 Dose: 0.8 mg - Objective Vital Signs: Vital Signs Temperature 98.0 F 08/20/17 09:55 Pulse Rate 73 08/20/17 09:55 Respiratory Rate 18 08/20/17 09:55 Blood Pressure 154/70 08/20/17 09:55 O2 Sat by Pulse Oximetry (%) 95 08/20/17 09:00 Constitutional: Yes: No Distress Cardiovascular: Yes: Regular Rate and Rhythm Respiratory: Yes: Diminished. No: Rales, Rhonchi Gastrointestinal: Yes: Normal Bowel Sounds, Soft, Abdomen, Obese. No: Tenderness Extremities: Yes: Other (chronic venous stasis left leg) Edema: Yes (decreased) Labs: CBC, BMP 08/20/17 06:00 08/20/17 06:00 Problem List - Problems (1) CHF (congestive heart failure) Code(s): I50.9 - HEART FAILURE, UNSPECIFIED Qualifiers: Heart failure type: unspecified Heart failure chronicity: acute on chronic Qualified Code(s): I50.9 - Heart failure, unspecified (2) Chest pain Code(s): R07.9 - CHEST PAIN, UNSPECIFIED Qualifiers: Chest pain type: unspecified Qualified Code(s): R07.9 - Chest pain, unspecified (3) ASHD (arteriosclerotic heart disease) Code(s): I25.10 - ATHSCL HEART DISEASE OF [place] CORONARY ARTERY W/O ANG PCTRS (4) Acute renal insufficiency Code(s): N28.9 - DISORDER OF KIDNEY AND URETER, UNSPECIFIED (5) CAD (coronary artery disease) Code(s): I25.10 - ATHSCL HEART DISEASE OF [place] CORONARY ARTERY W/O ANG PCTRS Qualifiers: Coronary Disease-Associated Artery/Lesion type: [place] artery [place] vs. transplanted heart: [place] heart Associated angina: without angina Qualified Code(s): I25.10 - Atherosclerotic heart disease of [place] coronary artery without angina pectoris Assessment/Plan PLAN Pt clinically improved On IV Lasix renal function slight worsening r continue with meds PT eval OOB
[2017-08-20] MEDS: INSULIN (LEVEMIR) 100 UNITS/ML UNITS SQ SCH (21:17)
[2017-08-20] MEDS: ATORVASTATIN CA 20 MG TABLET (FP) PO SCH (21:17)
[2017-08-21] MEDS: HEPARIN NA (PORCINE) 5,000 UNITS/ML 1ML VIAL SQ SCH ×3 (06:39→21:57)
[2017-08-21] MEDS: INSULIN SLIDING SCALE (NOVOLOG) 1 VIAL SQ SCH ×4 (06:40→21:57)
[2017-08-21 07:39] LABS: BASO % 0.6 % (0-2.0); EOS % 4.5 % (0-4.5); HEMATOCRIT 26.7 % (35.4-49); LYMPH % 10.7 % (8-40); MCH 31.1 pg (25.7-33.7); MCHC 33.6 g/dl (32.0-35.9); MEAN CELL VOLUME 92.6 fl (80-96); MEAN PLT VOLUME 8.8 fl (7.5-11.1); MONO % 12.7 % (3.8-10.2); NEUT % 71.5 % (42.8-82.8); PLATELET COUNT 164 K/MM3 (134-434); RBC 2.88 M/mm3 (4.00-5.60); RDW 16.2 % (11.9-15.9); WHITE BLOOD COUNT 6.2 K/mm3 (4.0-10.0)
[2017-08-21 08:05] LABS: CHLORIDE 108 mmol/L (98-107); SODIUM 140 mmol/L (136-145)
[2017-08-21 08:09] LABS: SERUM IRON SATURATION 26 % (15-55); TOTAL IRON BINDING CAPACITY 274 ug/dL (250-450); UIBC 203 ug/dL (111-343)
[2017-08-21] MEDS: TAMSULOSIN HCL 0.4 MG CAP.ER.24H (FP) PO SCH (08:14)
[2017-08-21 08:22] LABS: ANION GAP 6 (8-16); BLOOD UREA NITROGEN 68 mg/dL (7-18); CALCIUM 7.9 mg/dL (8.5-10.1); CO2 26 mmol/L (21-32); CREATININE 2.3 mg/dL (0.7-1.3); GLUCOSE,RANDOM 145 mg/dL (74-106)
--- NOTE | 2017-08-21 08:45 | PN ---
Progress Note, Physician Chief Complaint: no distress TELE: NSR - Current Medication List Current Medications: Active Medications Acetaminophen (Tylenol -) 650 mg PO Q4H PRN PRN Reason: PAIN LEVEL 1-5 Last Admin: 08/18/17 14:30 Dose: 650 mg Amlodipine Besylate (Norvasc -) 5 mg PO DAILY [facility] Last Admin: 08/20/17 09:20 Dose: 5 mg Aspirin (Asa -) 81 mg PO DAILY [facility] Last Admin: 08/20/17 09:20 Dose: 81 mg Atorvastatin Calcium (Lipitor -) 20 mg PO HS [facility] Last Admin: 08/20/17 21:17 Dose: 20 mg Carvedilol (Coreg -) 12.5 mg PO BID [facility] Last Admin: 08/20/17 21:17 Dose: 12.5 mg Clopidogrel Bisulfate (Plavix -) 75 mg PO DAILY [facility] Last Admin: 08/20/17 09:19 Dose: 75 mg Furosemide (Lasix Injection -) 60 mg IVPUSH DAILY [facility] Last Admin: 08/20/17 09:20 Dose: 60 mg Heparin Sodium (Porcine) (Heparin -) 5,000 unit SQ TID [facility] Last Admin: 08/21/17 06:39 Dose: 5,000 unit Insulin Aspart (Novolog Vial Sliding Scale -) 1 vial SQ [facility] PRN Reason: Protocol Last Admin: 08/21/17 06:40 Dose: 2 unit Insulin Detemir (Levemir Vial) 10 units SQ [facility] Last Admin: 08/20/17 21:17 Dose: 10 units Tamsulosin HCl (Flomax -) 0.8 mg PO DAILY@0830 [facility] Last Admin: 08/21/17 08:14 Dose: 0.8 mg - Objective Vital Signs: Vital Signs Temperature 98.7 F 08/21/17 05:30 Pulse Rate 81 08/21/17 05:30 Respiratory Rate 20 08/21/17 05:30 Blood Pressure 136/54 08/21/17 05:30 O2 Sat by Pulse Oximetry (%) 96 08/20/17 21:00 Constitutional: Yes: No Distress, Calm Cardiovascular: Yes: Regular Rate and Rhythm Respiratory: Yes: CTA Bilaterally Gastrointestinal: Yes: Soft, Abdomen, Obese Edema: Yes Edema: LLE: 1+, RLE: 1+ Neurological: Yes: Alert, Oriented ...Motor Strength: WNL Labs: CBC, BMP 08/21/17 06:20 08/21/17 06:20 Laboratory Tests 08/21/17 08/21/17 06:20 06:20 WBC 6.2 Hgb 9.0 L Plt Count 164 Potassium 5.0 BUN 68 H Creatinine 2.3 H - ....Imaging EKG: Image Reviewed Problem List - Problems (1) Acute on chronic diastolic CHF (congestive heart failure) Code(s): I50.33 - ACUTE ON CHRONIC DIASTOLIC (CONGESTIVE) HEART FAILURE (2) CAD (coronary artery disease) Code(s): I25.10 - ATHSCL HEART DISEASE OF [place] CORONARY ARTERY W/O ANG PCTRS Qualifiers: Coronary Disease-Associated Artery/Lesion type: [place] artery Associated angina: with stable angina (3) History of coronary artery stent placement Code(s): Z95.5 - PRESENCE OF CORONARY ANGIOPLASTY IMPLANT AND GRAFT (4) CKD (chronic kidney disease) stage 3, GFR 30-59 ml/min Code(s): N18.3 - CHRONIC KIDNEY DISEASE, STAGE 3 (MODERATE) (5) Diabetes Code(s): E11.9 - TYPE 2 DIABETES MELLITUS WITHOUT COMPLICATIONS Qualifiers: Diabetes mellitus type: type 2 Diabetes mellitus senior care insulin use: with senior care use Diabetes mellitus complication status: with circulatory complication (6) PAD (peripheral artery disease) Code(s): I73.9 - PERIPHERAL VASCULAR DISEASE, UNSPECIFIED (7) Abnormal ECG Code(s): R94.31 - ABNORMAL ELECTROCARDIOGRAM [ECG] [EKG] Assessment/Plan IMP: Acute on chronic diastolic CHF- improved Known CAD s/p multivessel PCI- last > 1 year DM CKD PAD REC: Agree w/ IV Lasix for one more day, transition to PO tomorrow Cont ASA/Plavix/Coreg and statin. MICHAEL held due to GFR. Lexiscan MIBI tomorrow AM
--- NOTE | 2017-08-21 09:01 | PN ---
Progress Note (short form) - Note Progress Note: pt seen/ examined. chart reviewed pt comfortable still feels sob. Vital Signs Temp 98.7 F 08/21/17 05:30 Pulse 81 08/21/17 05:30 Resp 20 08/21/17 05:30 BP 136/54 08/21/17 05:30 Pulse Ox 96 08/20/17 21:00 Intake & Output 08/20/17 08/20/17 08/21/17 11:59 23:59 11:59 Intake Total 100 450 200 Output Total 400 Balance 100 450 -200 Weight 192 lb 9.6 oz 196 lb Intake: Oral 100 450 200 Output: Urine 400 Void 400 Other: Voiding Method Urinal Urinal # Unmeasured Voids Void 2 Bowel Movement No Weight Measurement Method Standing Scale Standing Scale Active Medications Acetaminophen (Tylenol -) 650 mg PO Q4H PRN PRN Reason: PAIN LEVEL 1-5 Last Admin: 08/18/17 14:30 Dose: 650 mg Amlodipine Besylate (Norvasc -) 5 mg PO DAILY [facility] Last Admin: 08/20/17 09:20 Dose: 5 mg Aspirin (Asa -) 81 mg PO DAILY [facility] Last Admin: 08/20/17 09:20 Dose: 81 mg Atorvastatin Calcium (Lipitor -) 20 mg PO HS [facility] Last Admin: 08/20/17 21:17 Dose: 20 mg Carvedilol (Coreg -) 12.5 mg PO BID [facility] Last Admin: 08/20/17 21:17 Dose: 12.5 mg Clopidogrel Bisulfate (Plavix -) 75 mg PO DAILY [facility] Last Admin: 08/20/17 09:19 Dose: 75 mg Furosemide (Lasix Injection -) 60 mg IVPUSH DAILY [facility] Last Admin: 08/20/17 09:20 Dose: 60 mg Heparin Sodium (Porcine) (Heparin -) 5,000 unit SQ TID [facility] Last Admin: 08/21/17 06:39 Dose: 5,000 unit Insulin Aspart (Novolog Vial Sliding Scale -) 1 vial SQ ACHS [facility] PRN Reason: Protocol Last Admin: 08/21/17 06:40 Dose: 2 unit Insulin Detemir (Levemir Vial) 10 units SQ HS [facility] Last Admin: 08/20/17 21:17 Dose: 10 units Tamsulosin HCl (Flomax -) 0.8 mg PO DAILY@0830 [facility] Last Admin: 08/21/17 08:14 Dose: 0.8 mg CBC, BMP 08/21/17 06:20 08/21/17 06:20 - Objective Constitutional: Yes: No Distress.comfortable Cardiovascular: Yes: Regular Rate and Rhythm Respiratory: Yes: Diminished at bases . Gastrointestinal: Yes: Normal Bowel Sounds, Soft, Abdomen, Obese. No: Tenderness Extremities: Yes: Other (chronic venous stasis left leg) Edema: Yes Problem List - Problems (1) CHF (congestive heart failure) Code(s): I50.9 - HEART FAILURE, UNSPECIFIED Qualifiers: Heart failure type: unspecified Heart failure chronicity: acute on chronic Qualified Code(s): I50.9 - Heart failure, unspecified (2) Chest pain Code(s): R07.9 - CHEST PAIN, UNSPECIFIED Qualifiers: Chest pain type: unspecified Qualified Code(s): R07.9 - Chest pain, unspecified (3) ASHD (arteriosclerotic heart disease) Code(s): I25.10 - ATHSCL HEART DISEASE OF [place] CORONARY ARTERY W/O ANG PCTRS (4) Acute renal insufficiency Code(s): N28.9 - DISORDER OF KIDNEY AND URETER, UNSPECIFIED (5) CAD (coronary artery disease) Code(s): I25.10 - ATHSCL HEART DISEASE OF [place] CORONARY ARTERY W/O ANG PCTRS Qualifiers: Coronary Disease-Associated Artery/Lesion type: [place] artery [place] vs. transplanted heart: [place] heart Associated angina: without angina Qualified Code(s): I25.10 - Atherosclerotic heart disease of [place] coronary artery without angina pectoris Assessment/Plan still sob. meds reviewed. continue i/v lasix. monitor renal function. stress test planned. will follow.
[2017-08-21] MEDS: CLOPIDOGREL BISULFATE 75 MG TABLET (FP) PO SCH (09:05)
[2017-08-21] MEDS: ASPIRIN 81 MG CHEWABLE TABLETS PO SCH (09:05)
[2017-08-21] MEDS: CARVEDILOL 12.5 MG TABLET (FP) PO SCH ×2 (09:05→21:57)
[2017-08-21] MEDS: amLODIPine BESYLATE 5 MG TABLET (FP) PO SCH (09:05)
[2017-08-21] MEDS: FUROSEMIDE 40 MG/4 ML INJECTABLE VIAL IVPUSH SCH (09:06)
--- NOTE | 2017-08-21 18:47 | PN ---
Progress Note (short form) - Note Progress Note: Renal follow up for CKD/Volume overload Pt seen and examined at the bedside awake and alert has some sob overnight making urine LE edema improved Vital Signs Temperature 98.2 F 08/21/17 14:10 Pulse Rate 73 08/21/17 14:10 Respiratory Rate 19 08/21/17 14:10 Blood Pressure 127/53 08/21/17 14:10 O2 Sat by Pulse Oximetry (%) 96 08/21/17 09:00 Intake & Output 08/18/17 08/19/17 08/20/17 08/21/17 23:59 23:59 23:59 23:59 Intake Total 1170 930 550 200 Output Total 2150 900 900 Balance -980 30 550 -700 Weight 88.813 kg 88.178 kg 87.362 kg 88.904 kg NAD awake and alert RRR, no M/R CTA, no rales soft NT/ND 2+ LE edema, no clubbing or cyanosis No focal neurologic defects CBC, BMP 08/21/17 06:20 08/21/17 06:20 Current Medications Acetaminophen (Tylenol -) 650 mg PO Q4H PRN PRN Reason: PAIN LEVEL 1-5 Last Admin: 08/18/17 14:30 Dose: 650 mg Amlodipine Besylate (Norvasc -) 5 mg PO DAILY [facility] Last Admin: 08/21/17 09:05 Dose: 5 mg Aspirin (Asa -) 81 mg PO DAILY [facility] Last Admin: 08/21/17 09:05 Dose: 81 mg Atorvastatin Calcium (Lipitor -) 20 mg PO HS [facility] Last Admin: 08/20/17 21:17 Dose: 20 mg Carvedilol (Coreg -) 12.5 mg PO BID [facility] Last Admin: 08/21/17 09:05 Dose: 12.5 mg Clopidogrel Bisulfate (Plavix -) 75 mg PO DAILY [facility] Last Admin: 08/21/17 09:05 Dose: 75 mg Furosemide (Lasix Injection -) 60 mg IVPUSH DAILY [facility] Last Admin: 08/21/17 09:06 Dose: 60 mg Heparin Sodium (Porcine) (Heparin -) 5,000 unit SQ TID [facility] Last Admin: 08/21/17 13:29 Dose: 5,000 unit Insulin Aspart (Novolog Vial Sliding Scale -) 1 vial SQ ACHS [facility] PRN Reason: Protocol Last Admin: 08/21/17 17:42 Dose: 2 unit Insulin Detemir (Levemir Vial) 10 units SQ HS [facility] Last Admin: 08/20/17 21:17 Dose: 10 units Tamsulosin HCl (Flomax -) 0.8 mg PO DAILY@0830 [facility] Last Admin: 08/21/17 08:14 Dose: 0.8 mg 57 year old gentleman known to our service with PMhx of CKD (baseline Cr ~2), CVA, CAD, DM, CHF, PVD, COPD who presented with left sided stiffness in neck/ arm and chest and admitted for r/o ACS/PE with Cr of 2.4. #VANDA on CKD #Left sided chest discomfort r/o ACS/PE #Acute on Chronic Anemia #CHF/Fluid overload #BPH BUN/cr jameel today likely due to intravascular volume depletion in setting of diuretics agree with changing to lower dose oral diuretics tomorrow Trend BUN/Cr electrolytes Prakash Garcia DO
[2017-08-21] MEDS: INSULIN (LEVEMIR) 100 UNITS/ML UNITS SQ SCH (21:57)
[2017-08-21] MEDS: ATORVASTATIN CA 20 MG TABLET (FP) PO SCH (21:57)
[2017-08-22] MEDS: HEPARIN NA (PORCINE) 5,000 UNITS/ML 1ML VIAL SQ SCH ×3 (05:43→21:19)
[2017-08-22] MEDS: INSULIN SLIDING SCALE (NOVOLOG) 1 VIAL SQ SCH ×4 (06:05→21:24)
[2017-08-22 07:59] LABS: ANION GAP 6 (8-16); BLOOD UREA NITROGEN 66 mg/dL (7-18); CALCIUM 8.3 mg/dL (8.5-10.1); CHLORIDE 109 mmol/L (98-107); CO2 25 mmol/L (21-32); GLUCOSE,RANDOM 100 mg/dL (74-106); MAGNESIUM 2.2 mg/dL (1.8-2.4); POTASSIUM 5.2 mmol/L (3.5-5.1); SODIUM 140 mmol/L (136-145)
[2017-08-22 08:01] LABS: CREATININE 2.2 mg/dL (0.7-1.3); PHOSPHOROUS 4.7 mg/dL (2.5-4.9)
[2017-08-22] MEDS: amLODIPine BESYLATE 5 MG TABLET (FP) PO SCH (08:32)
--- NOTE | 2017-08-22 08:41 | PN ---
Progress Note, Physician Chief Complaint: Feeling better with no CP or SOB TELE: NSR - Current Medication List Current Medications: Active Medications Acetaminophen (Tylenol -) 650 mg PO Q4H PRN PRN Reason: PAIN LEVEL 1-5 Last Admin: 08/18/17 14:30 Dose: 650 mg Amlodipine Besylate (Norvasc -) 5 mg PO DAILY [facility] Last Admin: 08/22/17 08:32 Dose: 5 mg Aspirin (Asa -) 81 mg PO DAILY [facility] Last Admin: 08/21/17 09:05 Dose: 81 mg Atorvastatin Calcium (Lipitor -) 20 mg PO HS [facility] Last Admin: 08/21/17 21:57 Dose: 20 mg Carvedilol (Coreg -) 12.5 mg PO BID [facility] Last Admin: 08/21/17 21:57 Dose: 12.5 mg Clopidogrel Bisulfate (Plavix -) 75 mg PO DAILY [facility] Last Admin: 08/21/17 09:05 Dose: 75 mg Heparin Sodium (Porcine) (Heparin -) 5,000 unit SQ TID [facility] Last Admin: 08/22/17 05:43 Dose: 5,000 unit Insulin Aspart (Novolog Vial Sliding Scale -) 1 vial SQ [facility] PRN Reason: Protocol Last Admin: 08/22/17 06:05 Dose: Not Given Insulin Detemir (Levemir Vial) 10 units SQ [facility] Last Admin: 08/21/17 21:57 Dose: 10 units Tamsulosin HCl (Flomax -) 0.8 mg PO DAILY@0830 [facility] Last Admin: 08/21/17 08:14 Dose: 0.8 mg Torsemide (Demadex -) 30 mg PO DAILY [facility] - Objective Vital Signs: Vital Signs Temperature 98.1 F 08/22/17 05:00 Pulse Rate 76 08/22/17 05:00 Respiratory Rate 20 08/22/17 05:00 Blood Pressure 139/69 08/22/17 05:00 O2 Sat by Pulse Oximetry (%) 96 08/21/17 20:51 Constitutional: Yes: No Distress, Calm HENT: Yes: Atraumatic, Normocephalic Cardiovascular: Yes: Regular Rate and Rhythm Respiratory: Yes: CTA Bilaterally Gastrointestinal: Yes: Soft, Abdomen, Obese Edema: Yes Edema: LLE: 2+, RLE: 2+ Neurological: Yes: Alert ...Motor Strength: WNL Labs: CBC, BMP 08/21/17 06:20 08/22/17 06:37 Problem List - Problems (1) Acute on chronic diastolic CHF (congestive heart failure) Code(s): I50.33 - ACUTE ON CHRONIC DIASTOLIC (CONGESTIVE) HEART FAILURE (2) CAD (coronary artery disease) Code(s): I25.10 - ATHSCL HEART DISEASE OF [place] CORONARY ARTERY W/O ANG PCTRS Qualifiers: Coronary Disease-Associated Artery/Lesion type: [place] artery Associated angina: with stable angina (3) History of coronary artery stent placement Code(s): Z95.5 - PRESENCE OF CORONARY ANGIOPLASTY IMPLANT AND GRAFT (4) CKD (chronic kidney disease) stage 3, GFR 30-59 ml/min Code(s): N18.3 - CHRONIC KIDNEY DISEASE, STAGE 3 (MODERATE) (5) Diabetes Code(s): E11.9 - TYPE 2 DIABETES MELLITUS WITHOUT COMPLICATIONS Qualifiers: Diabetes mellitus type: type 2 Diabetes mellitus 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
[2017-08-22] MEDS ORDERED: REGADENOSON 0.4 MG/5 ML PRE-FILLED SYRINGE IVPUSH ONE ×2 (09:00→09:53)
--- NOTE | 2017-08-22 11:03 | PN ---
Progress Note, Physician Chief Complaint: for stress test - Current Medication List Current Medications: Active Medications Acetaminophen (Tylenol -) 650 mg PO Q4H PRN PRN Reason: PAIN LEVEL 1-5 Last Admin: 08/18/17 14:30 Dose: 650 mg Amlodipine Besylate (Norvasc -) 5 mg PO DAILY [facility] Last Admin: 08/22/17 08:32 Dose: 5 mg Aspirin (Asa -) 81 mg PO DAILY [facility] Last Admin: 08/21/17 09:05 Dose: 81 mg Atorvastatin Calcium (Lipitor -) 20 mg PO HS [facility] Last Admin: 08/21/17 21:57 Dose: 20 mg Carvedilol (Coreg -) 12.5 mg PO BID [facility] Last Admin: 08/21/17 21:57 Dose: 12.5 mg Clopidogrel Bisulfate (Plavix -) 75 mg PO DAILY [facility] Last Admin: 08/21/17 09:05 Dose: 75 mg Heparin Sodium (Porcine) (Heparin -) 5,000 unit SQ TID [facility] Last Admin: 08/22/17 05:43 Dose: 5,000 unit Insulin Aspart (Novolog Vial Sliding Scale -) 1 vial SQ [facility] PRN Reason: Protocol Last Admin: 08/22/17 06:05 Dose: Not Given Insulin Detemir (Levemir Vial) 10 units SQ [facility] Last Admin: 08/21/17 21:57 Dose: 10 units Tamsulosin HCl (Flomax -) 0.8 mg PO DAILY@0830 [facility] Last Admin: 08/21/17 08:14 Dose: 0.8 mg Torsemide (Demadex -) 30 mg PO DAILY [facility] - Objective Vital Signs: Vital Signs Temperature 98.3 F 08/22/17 08:00 Pulse Rate 76 08/22/17 08:00 Respiratory Rate 20 08/22/17 08:00 Blood Pressure 152/75 08/22/17 08:00 O2 Sat by Pulse Oximetry (%) 96 08/22/17 08:00 Constitutional: Yes: No Distress Cardiovascular: Yes: Regular Rate and Rhythm Respiratory: Yes: Diminished Gastrointestinal: Yes: Normal Bowel Sounds, Soft, Abdomen, Obese. No: Tenderness Edema: Yes Labs: CBC, BMP 08/21/17 06:20 08/22/17 06:37 Problem List - Problems (1) CHF (congestive heart failure) Code(s): I50.9 - HEART FAILURE, UNSPECIFIED Qualifiers: Heart failure type: unspecified Heart failure chronicity: acute on chronic Qualified Code(s): I50.9 - Heart failure, unspecified (2) Chest pain Code(s): R07.9 - CHEST PAIN, UNSPECIFIED Qualifiers: Chest pain type: unspecified Qualified Code(s): R07.9 - Chest pain, unspecified (3) ASHD (arteriosclerotic heart disease) Code(s): I25.10 - ATHSCL HEART DISEASE OF [place] CORONARY ARTERY W/O ANG PCTRS (4) Acute renal insufficiency Code(s): N28.9 - DISORDER OF KIDNEY AND URETER, UNSPECIFIED (5) CAD (coronary artery disease) Code(s): I25.10 - ATHSCL HEART DISEASE OF [place] CORONARY ARTERY W/O ANG PCTRS Qualifiers: Coronary Disease-Associated Artery/Lesion type: [place] artery [place] vs. transplanted heart: [place] heart Associated angina: without angina Qualified Code(s): I25.10 - Atherosclerotic heart disease of [place] coronary artery without angina pectoris Assessment/Plan PLAN on Torsemide renal function about the same PT eval OOB for stress test today
[2017-08-22] MEDS: CLOPIDOGREL BISULFATE 75 MG TABLET (FP) PO SCH (12:27)
[2017-08-22] MEDS: TORSEMIDE 20 MG TABLET (FP) PO SCH (12:27)
[2017-08-22] MEDS: ASPIRIN 81 MG CHEWABLE TABLETS PO SCH (12:27)
[2017-08-22] MEDS: TAMSULOSIN HCL 0.4 MG CAP.ER.24H (FP) PO SCH (12:28)
[2017-08-22] MEDS: CARVEDILOL 12.5 MG TABLET (FP) PO SCH ×2 (12:28→21:19)
[2017-08-22] MEDS ORDERED: INSULIN (NOVOLOG) ASPART 100 UNITS/ML 10ML VIAL ONE (21:15)
[2017-08-22] MEDS ORDERED: INSULIN (LEVEMIR) 100 UNITS/ML UNITS SQ ONE (21:15)
[2017-08-22] MEDS: ATORVASTATIN CA 20 MG TABLET (FP) PO SCH (21:20)
[2017-08-22] MEDS: INSULIN (LEVEMIR) 100 UNITS/ML UNITS SQ SCH (21:24)
[2017-08-23] MEDS: INSULIN SLIDING SCALE (NOVOLOG) 1 VIAL SQ SCH ×3 (06:03→17:46)
[2017-08-23] MEDS: HEPARIN NA (PORCINE) 5,000 UNITS/ML 1ML VIAL SQ SCH ×2 (06:06→13:22)
[2017-08-23 07:26] LABS: CALCIUM 8.1 mg/dL (8.5-10.1); CHLORIDE 109 mmol/L (98-107); POTASSIUM 5.3 mmol/L (3.5-5.1); SODIUM 140 mmol/L (136-145)
[2017-08-23 07:30] LABS: ANION GAP 4 (8-16); BLOOD UREA NITROGEN 64 mg/dL (7-18); CO2 27 mmol/L (21-32); GLUCOSE,RANDOM 125 mg/dL (74-106)
[2017-08-23] MEDS: amLODIPine BESYLATE 5 MG TABLET (FP) PO SCH ×2 (08:27→09:21)
[2017-08-23] MEDS: TAMSULOSIN HCL 0.4 MG CAP.ER.24H (FP) PO SCH (08:28)
--- NOTE | 2017-08-23 08:35 | PN ---
Progress Note (short form) - Note Progress Note: Stress reviewed: Moderate inferior ischemia, likely cause of his chest pain and CHF decompensation. D/w patient today: offered option of cath vs continue med Rx alone. Risks of cath including worsening renal fxn and possible kidney failure requiring HD. Exam: Clear lungs, no rales. TELE: NSR. Edema improved REC: Patient wants to undergo cath, understands risks. Will tx to [facility]. Advised no LV gram and minimal contrast. Problem List - Problems (1) Acute on chronic diastolic CHF (congestive heart failure) Code(s): I50.33 - ACUTE ON CHRONIC DIASTOLIC (CONGESTIVE) HEART FAILURE (2) CAD (coronary artery disease) Code(s): I25.10 - ATHSCL HEART DISEASE OF [place] CORONARY ARTERY W/O ANG PCTRS Qualifiers: Coronary Disease-Associated Artery/Lesion type: [place] artery Associated angina: with stable angina (3) History of coronary artery stent placement Code(s): Z95.5 - PRESENCE OF CORONARY ANGIOPLASTY IMPLANT AND GRAFT (4) CKD (chronic kidney disease) stage 3, GFR 30-59 ml/min Code(s): N18.3 - CHRONIC KIDNEY DISEASE, STAGE 3 (MODERATE) (5) Diabetes Code(s): E11.9 - TYPE 2 DIABETES MELLITUS WITHOUT COMPLICATIONS Qualifiers: Diabetes mellitus type: type 2 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
[2017-08-23] MEDS: CLOPIDOGREL BISULFATE 75 MG TABLET (FP) PO SCH (09:22)
[2017-08-23] MEDS: ASPIRIN 81 MG CHEWABLE TABLETS PO SCH (09:22)
[2017-08-23] MEDS: TORSEMIDE 20 MG TABLET (FP) PO SCH (09:22)
[2017-08-23] MEDS: CARVEDILOL 12.5 MG TABLET (FP) PO SCH (09:23)
[2017-08-23] MEDS ORDERED: ACETYLCYSTEINE 20% 200MG/ML 30 ML VIAL *FOR ORAL / INH USE ONLY PO SCH (10:00)
[2017-08-23] MEDS ORDERED: INSULIN (NOVOLOG) ASPART 100 UNITS/ML 10ML VIAL ONE (12:02)
--- NOTE | 2017-08-23 13:19 | PN ---
Progress Note, Physician Chief Complaint: see dc summary - Current Medication List Current Medications: Active Medications Acetaminophen (Tylenol -) 650 mg PO Q4H PRN PRN Reason: PAIN LEVEL 1-5 Last Admin: 08/18/17 14:30 Dose: 650 mg Acetylcysteine (Mucomyst 20 Oral / Inh Use Only*) 1,200 mg PO BID [facility] Last Admin: 08/23/17 11:00 Dose: 1,200 mg Amlodipine Besylate (Norvasc -) 5 mg PO DAILY [facility] Last Admin: 08/23/17 09:21 Dose: 5 mg Aspirin (Asa -) 81 mg PO DAILY [facility] Last Admin: 08/23/17 09:22 Dose: 81 mg Atorvastatin Calcium (Lipitor -) 20 mg PO HS [facility] Last Admin: 08/22/17 21:20 Dose: 20 mg Carvedilol (Coreg -) 12.5 mg PO BID [facility] Last Admin: 08/23/17 09:23 Dose: 12.5 mg Clopidogrel Bisulfate (Plavix -) 75 mg PO DAILY [facility] Last Admin: 08/23/17 09:22 Dose: 75 mg Heparin Sodium (Porcine) (Heparin -) 5,000 unit SQ TID [facility] Last Admin: 08/23/17 06:06 Dose: 5,000 unit Insulin Aspart (Novolog Vial Sliding Scale -) 1 vial SQ ACHS [facility] PRN Reason: Protocol Last Admin: 08/23/17 12:08 Dose: 2 unit Insulin Detemir (Levemir Vial) 10 units SQ HS [facility] Last Admin: 08/22/17 21:24 Dose: 10 units Tamsulosin HCl (Flomax -) 0.8 mg PO DAILY@0830 [facility] Last Admin: 08/23/17 08:28 Dose: 0.8 mg Torsemide (Demadex -) 30 mg PO DAILY [facility] Last Admin: 08/23/17 09:22 Dose: 30 mg - Objective Vital Signs: Vital Signs Temperature 97.6 F 08/23/17 09:36 Pulse Rate 78 08/23/17 09:36 Respiratory Rate 22 08/23/17 09:36 Blood Pressure 138/86 08/23/17 09:36 O2 Sat by Pulse Oximetry (%) 96 08/23/17 09:00 Labs: CBC, BMP 08/21/17 06:20 08/23/17 06:25 Problem List - Problems (1) CHF (congestive heart failure) Code(s): I50.9 - HEART FAILURE, UNSPECIFIED Qualifiers: Heart failure type: unspecified Heart failure chronicity: acute on chronic Qualified Code(s): I50.9 - Heart failure, unspecified (2) Chest pain Code(s): R07.9 - CHEST PAIN, UNSPECIFIED Qualifiers: Chest pain type: unspecified Qualified Code(s): R07.9 - Chest pain, unspecified (3) ASHD (arteriosclerotic heart disease) Code(s): I25.10 - ATHSCL HEART DISEASE OF [place] CORONARY ARTERY W/O ANG PCTRS (4) Acute renal insufficiency Code(s): N28.9 - DISORDER OF KIDNEY AND URETER, UNSPECIFIED (5) CAD (coronary artery disease) Code(s): I25.10 - ATHSCL HEART DISEASE OF [place] CORONARY ARTERY W/O ANG PCTRS Qualifiers: Coronary Disease-Associated Artery/Lesion type: [place] artery [place] vs. transplanted heart: [place] heart Associated angina: without angina Qualified Code(s): I25.10 - Atherosclerotic heart disease of [place] coronary artery without angina pectoris
[2017-08-23 14:41] VITALS: BP 114/55; PULSE 67; TEMP 98.4
--- NOTE | 2017-08-23 18:54 | PN ---
Progress Note (short form) - Note Progress Note: Renal follow up for CKD/Volume overload Pt seen and examined at the bedside awake and alert no acute complaints sob is improved no CP at the present time Vital Signs Temperature 98.4 F 08/23/17 14:00 Pulse Rate 67 08/23/17 14:00 Respiratory Rate 22 08/23/17 09:36 Blood Pressure 114/55 08/23/17 14:00 O2 Sat by Pulse Oximetry (%) 96 08/23/17 09:00 Intake & Output 08/20/17 08/21/17 08/22/17 08/23/17 23:59 23:59 23:59 23:59 Intake Total 550 620 540 100 Output Total 1700 1600 500 Balance 053 -0009 -8840 400 Weight 87.362 kg 88.904 kg 88.451 kg 87.77 kg NAD awake and alert RRR, no M/R CTA, no rales soft NT/ND 2+ LE edema, no clubbing or cyanosis No focal neurologic defects CBC, BMP 08/21/17 06:20 08/23/17 06:25 57 year old gentleman known to our service with PMhx of CKD (baseline Cr ~2), CVA, CAD, DM, CHF, PVD, COPD who presented with left sided stiffness in neck/ arm and chest and admitted for r/o ACS/PE with Cr of 2.4. #VANDA on CKD #Left sided chest pain r/o aCS #Acute on Chronic Anemia #CHF/Fluid overload #BPH for transfer for cardiac cath risk of contrast nephropahty discussed start Mucomyst for prophylaxis no IVF given volume overload but would hold diuretics on day of cardiac cath Trend renal function and the electrolytes to follow up in our office on discharge Prakash Garcia DO
--- NOTE | 2017-08-23 19:21 | DS ---
Physical Examination Vital Signs: Vital Signs Temperature 98.4 F 08/23/17 14:00 Pulse Rate 67 08/23/17 14:00 Respiratory Rate 22 08/23/17 09:36 Blood Pressure 114/55 08/23/17 14:00 O2 Sat by Pulse Oximetry (%) 96 08/23/17 09:00 Constitutional: Yes: No Distress, Calm Cardiovascular: Yes: Regular Rate and Rhythm Respiratory: Yes: Diminished Gastrointestinal: Yes: Normal Bowel Sounds, Soft. No: Tenderness Edema: Yes Labs: CBC, BMP 08/21/17 06:20 08/23/17 06:25 Discharge Summary Reason For Visit: CONGESTIVE HEART FAILURE; CHEST PAIN Hospital Course: Admitted for chest pain and SOB-- CHF decompensation and acute on chronic renal failure seen by Cardiology and renal-- positive stress test -- transferred to [facility] for cardiac cath Condition: Stable - Instructions Referrals: Ariadna Huizar MD [Primary Care Provider] - Disposition: TRANSFER ACUTE CARE/OTHER HOSP - Home Medications Comprehensive Discharge Medication List: Ambulatory Orders Amlodipine Besylate [Norvasc -] 5 mg PO DAILY 09/17/16 Clopidogrel Bisulfate [Plavix -] 75 mg PO DAILY 10/17/16 Carvedilol [Coreg -] 12.5 mg PO BID #60 tablet 10/24/16 Acetaminophen [Tylenol .Regular Strength -] 325 mg PO Q4H PRN #0 tablet Aspirin [ASA -] 81 mg PO DAILY tab.chew 02/25/17 Tamsulosin HCl [Flomax -] 0.8 mg PO DAILY@0830 #30 tab 02/25/17 Atorvastatin Ca [Lipitor] 20 mg PO HS tablet 06/12/17 Ceftriaxone in Is-Osm Dextrose [Ceftriaxone 2 gm Piggyback] 2 gm IV DAILY #24 froz.piggy 06/12/17 Furosemide [Lasix -] 40 mg PO DAILY #90 tablet 06/12/17 Insulin (Levemir) [Levemir Flexpen -] 10 units SQ DAILY #1 pen 06/12/17 Insulin Sliding Scale [Novolog Vial Sliding Scale -] 1 vial SQ ACHS units 06/12 Picc Line Flush [Picc Line Flush -] 8 ml IVPUSH PRN PRN ml 06/12/17
== END 2017-08-23 18:34 | disposition short-term general hospital (02) | DRG 291 ==
LOC: JER 12:40 → JERBED 17:12 → J4W 19:00 → OBSVTOIN 08-17 12:16
PROVIDERS: ADMIT Internal Medicine; ATTEND Internal Medicine
DX: I13.0 Hypertensive heart and chronic kidney disease with heart failure and stage 1 through stage 4 chronic kidney disease, or unspecified chronic kidney disease (principal); I50.33 Acute on chronic diastolic (congestive) heart failure; N17.9 Acute kidney failure, unspecified; I69.354 Hemiplegia and hemiparesis following cerebral infarction affecting left non-dominant side; I25.10 Atherosclerotic heart disease of native coronary artery without angina pectoris; E78.5 Hyperlipidemia, unspecified; N18.3 Chronic kidney disease, stage 3 (moderate); I25.2 Old myocardial infarction; F17.200 Nicotine dependence, unspecified, uncomplicated; D64.9 Anemia, unspecified; E11.42 Type 2 diabetes mellitus with diabetic polyneuropathy; E11.51 Type 2 diabetes mellitus with diabetic peripheral angiopathy without gangrene; J44.9 Chronic obstructive pulmonary disease, unspecified; F41.9 Anxiety disorder, unspecified; E11.22 Type 2 diabetes mellitus with diabetic chronic kidney disease; N40.0 Benign prostatic hyperplasia without lower urinary tract symptoms; R07.89 Other chest pain; R94.31 Abnormal electrocardiogram [ECG] [EKG]; E66.9 Obesity, unspecified; Z68.34 Body mass index [BMI] 34.0-34.9, adult; Z95.1 Presence of aortocoronary bypass graft; Z86.73 Personal history of transient ischemic attack (TIA), and cerebral infarction without residual deficits; Z95.5 Presence of coronary angioplasty implant and graft
CPT/HCPCS: 36415; 36430; 71045-TC-FY; 73030-TC-LT-FY; 78452-TC; 80048; 80053; 82550; 82553; 82728; 82962; 83540; 83550; 83735; 83880; 84100; 84484; 85025; 86850; 86900; 86901; 86922; 93005; 93010; 93017; 93306-TC; 93970-TC; 97116-GP; 97161-GP; 99284-25; A9502; G0378; J1644; J2785; P9038; P9058

== ENCOUNTER 2017-09-11 19:56 | Emergency (ER) | payer OTHER ==
[2017-09-11 20:12] VITALS: BP 134/68; PULSE 78; TEMP 98.1; BMI 35.4
[2017-09-11] MEDS ORDERED: SODIUM CHLORIDE 1,000 ML IV STA (20:23)
--- NOTE | 2017-09-11 20:23 | PDOC ---
History of Present Illness - General Chief Complaint: Pain Stated Complaint: ABD PAIN Time Seen by Provider: 09/11/17 20:07 History Source: Patient Exam Limitations: No Limitations - History of Present Illness Initial Comments: This is a 57 YOM with NIDDM (on glipizide), CAD (2 wks s/p stent placement, also one prior stent placement, on clopidogrel), HTN (on amlodipine), HLD (on atorvastatin), renal insufficiency, BPH (on tamsulosin), and COPD who p/w sharp 5/10 constant non-radiating LUQ abdominal pain for the past 6 days, as well as non-bloody brown loose diarrhea for the same amount of time. He had one episode of NBNB vomiting about 5 days ago but no repeat episodes. He has not taken any medication for the symptoms, and the pain is not made better or worse by any factors. He has never had this type of pain before. He additionally notes one fleeting episode of SOB early this morning similar to prior COPD exacerbation, and he initially had planned to come here to the ED for evaluation for this, but his room mate gave him an albuterol treatment and this resolved his symptoms. He denies any fever, chills, constipation, chest pain, headache, lightheadedness, or other recent symptoms. Past History - Past Medical History Allergies/Adverse Reactions: Allergies Allergy/AdvReac Type Severity Reaction Status Date / Time No Known Drug Allergies Allergy Verified 09/11/17 20:13 Home Medications: Ambulatory Orders Amlodipine Besylate [Norvasc -] 5 mg PO DAILY 09/17/16 Clopidogrel Bisulfate [Plavix -] 75 mg PO DAILY 10/17/16 Carvedilol [Coreg -] 12.5 mg PO BID #60 tablet 10/24/16 Tamsulosin HCl [Flomax -] 0.8 mg PO DAILY@0830 #30 tab 02/25/17 Atorvastatin Ca [Lipitor] 20 mg PO HS tablet 06/12/17 Furosemide [Lasix -] 40 mg PO DAILY #90 tablet 06/12/17 Carvedilol [Coreg] 6.25 mg PO DAILY 09/11/17 Glipizide [Glipizide ER] 5 mg PO DAILY 09/11/17 Anemia: No Asthma: No Cancer: No Cardiac Disorders: Yes (stent x 2) CVA: Yes (2010, 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) COPD: No CHF: No Dementia: No Diabetes: Yes GI Disorders: No Disorders: No HTN: Yes Hypercholesterolemia: Yes Liver Disease: No Seizures: No Thyroid Disease: No - Surgical History Abdominal Surgery: No Appendectomy: No Cardiac Surgery: Yes (STENTS X2) Cholecystectomy: No Lung Surgery: No Neurologic Surgery: No Orthopedic Surgery: No - Immunization History Immunization Up to Date: Yes - Suicide/Smoking/Psychosocial Hx Smoking Status: Yes Smoking History: Current some day smoker Have you smoked in the past 12 months: Yes Number of Cigarettes Smoked Daily: 2 If you are a former smoker, when did you quit?: 09/2016 Cigars Per Day: 0 'Breaking Loose' booklet given: 06/01/17 Hx Alcohol Use: No Drug/Substance Use Hx: No Substance Use Type: None Hx Substance Use Treatment: No Abd/GI Specific PMHX - Complaint Specific PMHX Colitis: No GI Ulcer Disease: No Review of Systems - Review of Systems Able to Perform ROS?: Yes Constitutional: No: Chills, Fever, Unexplained wgt Loss HEENTM: No: Nose Congestion, Throat Pain Respiratory: Yes: Shortness of Breath (this morning, resolved). No: Cough Cardiac (ROS): No: Chest Pain, Palpitations ABD/GI: Yes: Diarrhea, Nausea (5 days ago, resolved), Vomiting (5 days ago, resolved), Other (abdominal pain). No: Blood Streaked Bowels, Constipated, Rectal Bleeding : No: Burning, Dysuria Musculoskeletal: No: Back Pain, Neck Pain Integumentary: No: Bruising, Rash Neurological: No: Headache, Numbness, Tingling, Weakness, Dizziness Endocrine: No: Unexplained Weight Gain, Unexplained Weight Loss *Physical Exam - Physical Exam General Appearance: Yes: Nourished, Appropriately Dressed, Obese, Other (tired but nontoxic appearing adult male who is a bit unkempt but very pleasant, converses normally, answers questions appropriately). No: Apparent Distress, Alcohol on Breath HEENT: positive: EOMI, BRIE, Normal Voice, Hearing Grossly Normal. negative: Scleral Icterus (R), Scleral Icterus (L), Nasal Congestion Neck: positive: Trachea midline, Supple. negative: Tender, Rigid Respiratory/Chest: positive: Lungs Clear, Normal Breath Sounds. negative: Respiratory Distress, Crackles, Rhonchi, Stridor, Wheezing Cardiovascular: positive: Regular Rhythm, Regular Rate, S1, S2, Other (distant heart sounds). negative: JVD, Murmur Gastrointestinal/Abdominal: positive: Normal Bowel Sounds, Soft, Protuberent. negative: Tender, Organomegaly, Pulsatile Mass, Guarding Musculoskeletal: positive: Normal Inspection. negative: Decreased Range of Motion, Vertebral Tenderness Extremity: positive: Normal Capillary Refill, Normal Inspection, Normal Range of Motion. negative: Tender, Cyanosis Integumentary: positive: Normal Color, Dry, Warm. negative: Erythema, Rash, Bruising Neurologic: positive: assembler arranger II-XII NML intact (grossly), Fully Oriented, Alert, Normal Mood/Affect, Normal Response, Motor Strength 5/5. negative: EOM Palsy, Facial Droop, Numbness, Sensory Deficit, Confused, Disoriented Heart Score/ECG Review #1 NSR, rate of 79, RBBB, LAFB, normal OK interval of 192 ms, QTc 463, no ischemic changes, no peaked T waves, bifascicular block is old compared with 07/2017 study. ED Treatment Course - LABORATORY CBC & Chemistry Diagram: 09/11/17 20:43 09/11/17 20:43 Medical Decision Making - Medical Decision Making Adult male patient p/w left-sided abdominal pain, diarrhea, onset 6 days ago. Initial Vital Signs Temp Pulse Resp BP Pulse Ox 98.1 F 78 18 134/68 97 09/11/17 20:08 09/11/17 20:08 09/11/17 20:08 09/11/17 20:08 09/11/17 20:08 Exam: A bit tired, nontoxic, conversive, appropriate, distant heart sounds but otherwise heart/lungs wnl, abdomen protuberant, nontender, normoactive BS. DDX IBNLT: viral gastroenteritis, diverticulitis wwo abscess or perforation, colitis, pancreatitis, gastritis, PUD, ACS, UTI/pyelonephritis, renal colic, obstructive uropathy, AAA/AD, hernia, malignancy, SBO, bowel ischemia, bowel perforation, cholecystitis, musculoskeletal, etc. W/U ordered: CBCD CMP Coags Cardiac Panel UA UCx TX ordered: IVF EKG: NSR, rate of 79, RBBB, LAFB, normal OK interval of 192 ms, QTc 463, no ischemic changes, no peaked T waves, bifascicular block is old compared with 2017 study. CXR: NADP. Laboratory Tests 09/11/17 09/11/17 09/11/17 20:43 20:43 20:43 WBC 5.2 RBC 2.62 L Hgb 8.2 L Hct 24.4 L MCV 93.0 MCH 31.2 MCHC 33.5 RDW 16.5 H Plt Count 187 MPV 8.0 Neutrophils % 70.5 Lymphocytes % 14.4 D Monocytes % 9.7 Eosinophils % 4.7 H Basophils % 0.7 Sodium 143 Potassium 5.4 H Chloride 114 H Carbon Dioxide 24 Anion Gap 5 L BUN 45 H D Creatinine 2.0 H Creat Clearance w eGFR 34.37 Random Glucose 172 H D Calcium 7.8 L Total Bilirubin 0.2 AST 8 L D ALT 16 Alkaline Phosphatase 97 D Creatine Kinase 168 Creatine Kinase Index 2.3 CK-MB (CK-2) 4.006 H Troponin I < 0.02 D Total Protein 6.1 L Albumin 2.8 L Lipase 152 On reassessment: Sleeping comfortably, awakens easily, repeat abdominal exam benign. Repeat VS: The patient has gotten significant relief of symptoms with ED medications. Workup is not concerning for emergency-level pathology at this time. The patient is appropriate for discharge with close outpatient follow up. They are comfortable with this plan and will follow up with their PCP in 1-3 days. Return precautions are discussed and they will come back to the ER if necessary. 09/11/17 23:44 *DC/Admit/Observation/Transfer Diagnosis at time of Disposition: Hyperkalemia Abdominal pain Qualifiers: Abdominal location: generalized Qualified Code(s): R10.84 - Generalized abdominal pain Diarrhea Qualifiers: Diarrhea type: unspecified type Qualified Code(s): R19.7 - Diarrhea, unspecified CKD (chronic kidney disease) Qualifiers: Chronic kidney disease stage: unspecified stage Qualified Code(s): N18.9 - Chronic kidney disease, unspecified Anemia Qualifiers: Anemia type: unspecified type Qualified Code(s): D64.9 - Anemia, unspecified - Discharge Dispostion Disposition: HOME Condition at time of disposition: Stable Decision to Admit order: No - Referrals - Patient Instructions Additional Instructions: You were seen in the ER for abdominal pain and diarrhea. We did blood work, an EKG, and a chest X-ray, and there were no new findings on any of these studies. You have chronic high potassium, chronic kidney disease, and chronic anemia. After our assessment, we do not believe you are having a medical emergency at this time, and we believe you are safe to go home. Please follow up with your regular PCP doctor in 1-3 days. Call their clinic as soon as possible, tell them you were seen in the ER, and tell them you need an appointment. If you have any new or worsening symptoms, please come back to the ER at any time (24 hours a day). If you are having severe or life threatening symptoms, or symptoms that make it unsafe to drive or have someone drive you, please call 911. - Post Discharge Activity
--- NOTE | 2017-09-11 20:30 | PDOC ---
Attending Attestation - Resident Resident Name: SashaGabriela - ED Attending Attestation I have performed the following: I have examined & evaluated the patient, The case was reviewed & discussed with the resident, I agree w/resident's findings & plan, Exceptions are as noted - HPI HPI: 09/11/17 20:29 57y M hx of NIDDM, CAD sp stent x 2 weeks on plavic, copd, CRD, presents with sharp, constant, nonradiating LUQ abd pain and diarrhea x 6 days with 1 episode of nbnb vomiting 5 days ago. pt denies any cp, current dyspnea, doeabd pain, bpr , back pain, fever/chills. on exam pt is well appearing in no distress abd soft nontender pulm exam clear LE edema +3 (Baseline) - Physicial Exam PE: 09/11/17 23:56 see above - Medical Decision Making 09/11/17 23:56 labs reviewed, approx at baseline anemia, ckd/k abd soft nontender will d/c the pt with pmd and renal fu return precautions were discussed I discussed the physical exam findings, ancillary test results and final diagnoses with the patient. I answered all of the patient's questions. The patient was satisfied with the care received and felt comfortable with the discharge plan and treatment plan. The patient will call their primary care physician within 24 hours to arrange follow-up and will return to the Emergency Department with any new, persistent or worsening symptoms. Heart Score/ECG Review - ECG Impressions Comment:: 09/11/17 22:38 Twelve-lead EKG was performed and reviewed by me. There is normal sinus rhythm with a normal rate. Rate of 78 right bundle-branch block, left anterior fascicular block No ST changes suggestive of acute ischemia
[2017-09-11 20:51] LABS: BASO % 0.7 % (0-2.0); EOS % 4.7 % (0-4.5); HEMATOCRIT 24.4 % (35.4-49); HEMOGLOBIN 8.2 GM/dL (11.7-16.9); LYMPH % 14.4 % (8-40); MCH 31.2 pg (25.7-33.7); MCHC 33.5 g/dl (32.0-35.9); MONO % 9.7 % (3.8-10.2); NEUT % 70.5 % (42.8-82.8); PLATELET COUNT 187 K/MM3 (134-434); RBC 2.62 M/mm3 (4.00-5.60); RDW 16.5 % (11.9-15.9); WHITE BLOOD COUNT 5.2 K/mm3 (4.0-10.0)
[2017-09-11 21:12] LABS: ALBUMIN 2.8 g/dl (3.4-5.0); ALK PHOS 97 U/L (45-117); ANION GAP 5 (8-16); BILIRUBIN,TOTAL 0.2 mg/dL (0.2-1.0); BLOOD UREA NITROGEN 45 mg/dL (7-18); CALCIUM 7.8 mg/dL (8.5-10.1); CHLORIDE 114 mmol/L (98-107); CO2 24 mmol/L (21-32); GLUCOSE,RANDOM 172 mg/dL (74-106); LIPASE 152 U/L (73-393); POTASSIUM 5.4 mmol/L (3.5-5.1); SGOT/AST 8 U/L (15-37); SGPT/ALT 16 U/L (12-78); SODIUM 143 mmol/L (136-145); TOT PROT 6.1 g/dl (6.4-8.2)
--- NOTE | 2017-09-12 11:54 | EKG ---
Test Reason : Blood Pressure : / mmHG Vent. Rate : 079 BPM Atrial Rate : 079 BPM P-R Int : 192 ms QRS Dur : 142 ms QT Int : 404 ms P-R-T Axes : 062 -71 058 degrees QTc Int : 463 ms NORMAL SINUS RHYTHM RIGHT BUNDLE BRANCH BLOCK LEFT ANTERIOR FASCICULAR BLOCK BIFASCICULAR BLOCK ABNORMAL ECG WHEN COMPARED WITH ECG OF 16-AUG-2017 12:51, NO SIGNIFICANT CHANGE WAS FOUND Confirmed by MD ROB, SHELL ([id number]) on 09/12/2017 11:53:56 AM Referred By: Confirmed By:SHELL RIVAS MD
== END 2017-09-12 00:19 | disposition home or self-care (01) ==
LOC: JER 19:56
PROC: 3E0337Z Introduction of Electrolytic and Water Balance Substance into Peripheral Vein, Percutaneous Approach (ICD-10-PCS; principal; 2017-09-11)
DX: E87.5 Hyperkalemia (principal); D64.9 Anemia, unspecified; I25.10 Atherosclerotic heart disease of native coronary artery without angina pectoris; I13.10 Hypertensive heart and chronic kidney disease without heart failure, with stage 1 through stage 4 chronic kidney disease, or unspecified chronic kidney disease; N18.9 Chronic kidney disease, unspecified; F17.210 Nicotine dependence, cigarettes, uncomplicated; Z95.5 Presence of coronary angioplasty implant and graft; E11.9 Type 2 diabetes mellitus without complications; Z79.84 Long term (current) use of oral hypoglycemic drugs; J44.9 Chronic obstructive pulmonary disease, unspecified; E78.00 Pure hypercholesterolemia, unspecified; N40.0 Benign prostatic hyperplasia without lower urinary tract symptoms; I69.854 Hemiplegia and hemiparesis following other cerebrovascular disease affecting left non-dominant side
CPT/HCPCS: 36415; 71046-TC-FY; 80053; 82550; 82553; 83690; 84484; 85025; 93005; 93010; 96360; 99283-25; J7030

== ENCOUNTER 2017-09-14 15:42 | Observation (INO) | payer OTHER ==
--- NOTE | 2017-09-14 16:10 | PDOC ---
Rapid Medical Evaluation Time Seen by Provider: 09/14/17 16:00 Medical Evaluation: Allergies Allergy/AdvReac Type Severity Reaction Status Date / Time No Known Drug Allergies Allergy Verified 09/11/17 20:13 09/14/17 16:00 The patient presents with a chief complaint of: "Low blood count" Feeling short of breath when he walks. Seen yesterday I have performed a brief in-person evaluation of this patient; Pertinent physical exam findings: ambulatory, in no respiratory distress. Appears pale I have ordered the following: Lab work, IV insert, EKG, CXR The patient will proceed to the ED for further evaluation.
--- NOTE | 2017-09-14 17:34 | PDOC ---
Attending Attestation - [facility] HPI: 09/14/17 18:23 The patient is a 57 year old male with a past medical history of NIDDM (on glipizide), CAD (2 wks s/p stent placement, also one prior stent placement, on clopidogrel), HTN (on amlodipine), HLD (on atorvastatin), renal insufficiency, BPH (on tamsulosin), and COPD who presents with dizziness since this morning. The patient reports that his roommate believes he needs a blood transfusion. He endorses a history of blood transfusions and reports that his symptoms presented similarly. He endorses associated shortness of breath when walking up and down stains and diarrhea. GENERAL/CONSTITUTIONAL: No fever or chills. No weakness. HEAD, EYES, EARS, NOSE AND THROAT: No change in vision. No ear pain or discharge. No sore throat. GASTROINTESTINAL: (+) Diarrhea. No nausea, vomiting, or constipation. GENITOURINARY: No dysuria, frequency, or change in urination. CARDIOVASCULAR: No chest pain or shortness of breath. RESPIRATORY: (+) Shortness of breath. No cough, wheezing, or hemoptysis. MUSCULOSKELETAL: No joint or muscle swelling or pain. No neck or back pain. SKIN: No rash NEUROLOGIC: (+) Dizziness No headache, vertigo, loss of consciousness, or change in strength/sensation. ENDOCRINE: No increased thirst. No abnormal weight change. HEMATOLOGIC/LYMPHATIC: No anemia, easy bleeding, or history of blood clots. ALLERGIC/IMMUNOLOGIC: No hives or skin allergy. - Physicial Exam PE: 09/14/17 18:23 GENERAL: Awake, alert, and fully oriented, in no acute distress HEAD: No signs of trauma EYES: PERRLA, EOMI, sclera anicteric, conjunctiva clear ENT: Auricles normal inspection, hearing grossly normal, nares patent, oropharynx clear without exudates. Moist mucosa NECK: Normal ROM, supple, no lymphadenopathy, JVD, or masses LUNGS: Breath sounds equal, clear to auscultation bilaterally. No wheezes, and no crackles HEART: Tachycardia with regular rhythm, normal S1 and S2, no murmurs, rubs or gallops ABDOMEN: Soft, nontender, normoactive bowel sounds. No guarding, no rebound. No masses EXTREMITIES: (+) Chronic 3+ pitting edema. Normal range of motion. No clubbing or cyanosis. No cords, erythema, or tenderness NEUROLOGICAL: Cranial nerves II through XII grossly intact. Normal speech, normal gait SKIN: (+) Pale, Warm, Dry, normal turgor, no rashes or lesions noted. - Medical Decision Making 09/14/17 18:23 Documentation prepared by Jacinto Chaudhary, acting as medical billing service for Krystle Martins DO. <Jacinto Chaudhary - Last Filed: 09/14/17 18:23> - Resident Resident Name: Giovanny Cornell - ED Attending Attestation I have performed the following: I have examined & evaluated the patient, The case was reviewed & discussed with the resident, I agree w/resident's findings & plan, Exceptions are as noted - Medical Decision Making 09/14/17 17:33 I, Dr. Krystle Maritns, , attest that this document has been prepared under my direction and personally reviewed by me in its entirety. I further attest, that it accurately reflects all work, treatment, procedures and medical decision -making performed by me. 09/14/17 18:10 a/p: 57yo male with poss low hgb -generally weak -sob when walking for a while -walks with a walker -chronic venous congestion to legs -tachy on exam -hemoglobin 3 days ago was 8 -denies bleeding -hx of transfusion in the past -will repeat labs, ekg -will monitor and reassess 09/14/17 19:17 hgb 9 trop 0.03 generalized weakness and dypsnea will place in obs for repeat trops and further eval 09/14/17 19:34 pt will be placed in obs under [facility], pmd is yared kay - covered by [facility] <Krystle Martins - Last Filed: 09/14/17 19:35> Heart Score/ECG Review - ECG Intrepretation Comment:: 09/14/17 17:34 sinus at 81, L axis, RBBB, LAFB, abnl ekg <Krystle Martins - Last Filed: 09/14/17 19:35>
--- NOTE | 2017-09-14 18:08 | PDOC ---
History of Present Illness - General Chief Complaint: Weakness Stated Complaint: FOLLOW-UP/ LAB VARIANCE Time Seen by Provider: 09/14/17 16:00 History Source: Patient Exam Limitations: No Limitations - History of Present Illness Initial Comments: 09/14/17 18:08 Patient is a 57M with history of NIDDM (on glipizide), CAD (2 wks s/p stent placement, also one prior stent placement, on clopidogrel), HTN, HLD, renal insufficiency, BPH, and COPD here today complaining of 'low blood count' from his last visit three days ago. He states that his roommate told him that his counts were low so he had to go to the ED. He's is also complaining of decreased exercise tolerance. He states that he has leg swelling, but that it is at baseline. States that he had chest pain 2 days ago. Denies fevers, chills , nausea, vomiting. Past History - Past Medical History Allergies/Adverse Reactions: Allergies Allergy/AdvReac Type Severity Reaction Status Date / Time No Known Drug Allergies Allergy Verified 09/14/17 16:00 Home Medications: Ambulatory Orders Amlodipine Besylate [Norvasc -] 5 mg PO DAILY 09/17/16 Clopidogrel Bisulfate [Plavix -] 75 mg PO DAILY 10/17/16 Carvedilol [Coreg -] 12.5 mg PO BID #60 tablet 10/24/16 Tamsulosin HCl [Flomax -] 0.8 mg PO DAILY@0830 #30 tab 02/25/17 Atorvastatin Ca [Lipitor] 20 mg PO HS tablet 06/12/17 Furosemide [Lasix -] 40 mg PO DAILY #90 tablet 06/12/17 Carvedilol [Coreg] 6.25 mg PO DAILY 09/11/17 Glipizide [Glipizide ER] 5 mg PO DAILY 09/11/17 Anemia: No Asthma: No Cancer: No Cardiac Disorders: Yes (stent x 2) CVA: Yes (2009, 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) COPD: No CHF: No Dementia: No Diabetes: Yes GI Disorders: No Disorders: No HTN: Yes Hypercholesterolemia: Yes Liver Disease: No Seizures: No Thyroid Disease: No - Surgical History Abdominal Surgery: No Appendectomy: No Cardiac Surgery: Yes (STENTS X2) Cholecystectomy: No Lung Surgery: No Neurologic Surgery: No Orthopedic Surgery: No - Immunization History Immunization Up to Date: Yes - Suicide/Smoking/Psychosocial Hx Smoking Status: Yes Smoking History: Current some day smoker Have you smoked in the past 12 months: Yes Number of Cigarettes Smoked Daily: 2 If you are a former smoker, when did you quit?: 09/2016 Cigars Per Day: 0 Information on smoking cessation initiated: No 'Breaking Loose' booklet given: 06/01/17 Hx Alcohol Use: No Drug/Substance Use Hx: No Substance Use Type: None Hx Substance Use Treatment: No Review of Systems - Review of Systems Comments:: 09/14/17 18:12 GENERAL/CONSTITUTIONAL: No fever or chills. No weakness. HEAD, EYES, EARS, NOSE AND THROAT: No change in vision. No sore throat. CARDIOVASCULAR: No chest pain or shortness of breath RESPIRATORY: No cough, wheezing, or hemoptysis. GASTROINTESTINAL: No nausea, vomiting, diarrhea or constipation. GENITOURINARY: No dysuria, frequency, or change in urination. MUSCULOSKELETAL: No joint or muscle swelling or pain. No neck or back pain. SKIN: No rash NEUROLOGIC: No headache, vertigo, loss of consciousness, or change in strength/ sensation. ENDOCRINE: No increased thirst. No abnormal weight change HEMATOLOGIC/LYMPHATIC: Positive for anemia. Negative for easy bleeding, or history of blood clots. ALLERGIC/IMMUNOLOGIC: No hives or skin allergy. *Physical Exam - Vital Signs Last Vital Signs Temp Pulse Resp BP Pulse Ox 98.3 F 72 20 135/80 98 09/14/17 17:57 09/14/17 17:57 09/14/17 17:57 09/14/17 17:57 09/14/17 17:57 - Physical Exam Comments: 09/14/17 18:13 GENERAL: Awake, alert, and fully oriented, in no acute distress HEAD: No signs of trauma, normocephalic, atraumatic EYES: PERRLA, EOMI, sclera anicteric, conjunctiva clear ENT: Auricles normal inspection, hearing grossly normal, nares patent, oropharynx clear without exudates. Moist mucosa NECK: Normal ROM, supple, no lymphadenopathy, JVD, or masses LUNGS: No distress, speaks full sentences, clear to auscultation bilaterally HEART: Regular rate and rhythm, normal S1 and S2, no murmurs, rubs or gallops, peripheral pulses normal and equal bilaterally. ABDOMEN: Soft, nontender, normoactive bowel sounds. No guarding, no rebound. No masses EXTREMITIES: Bilateral pitting edema with chronic venous stasis changes. NEUROLOGICAL: Cranial nerves II through XII grossly intact. Normal speech, no focal sensorimotor deficits SKIN: Warm, Dry, normal turgor, no rashes or lesions noted. ED Treatment Course - LABORATORY CBC & Chemistry Diagram: 09/14/17 18:03 09/14/17 18:03 - ADDITIONAL ORDERS Additional order review: Laboratory Results 09/14/17 09/14/17 09/14/17 17:23 16:44 16:44 Sodium Cancelled Potassium Cancelled Chloride Cancelled Carbon Dioxide Cancelled Anion Gap Cancelled BUN Cancelled Creatinine Cancelled Creat Clearance w eGFR Cancelled Random Glucose Cancelled Calcium Cancelled Total Bilirubin Cancelled AST Cancelled ALT Cancelled Alkaline Phosphatase Cancelled Creatine Kinase Cancelled Troponin I Cancelled B-Natriuretic Peptide Cancelled Total Protein Cancelled Albumin Cancelled Blood Type Antibody Screen 09/14/17 16:44 Sodium Potassium Chloride Carbon Dioxide Anion Gap BUN Creatinine Creat Clearance w eGFR Random Glucose Calcium Total Bilirubin AST ALT Alkaline Phosphatase Creatine Kinase Troponin I B-Natriuretic Peptide Total Protein Albumin Blood Type O POSITIVE Antibody Screen Negative Medical Decision Making - Medical Decision Making 09/14/17 18:21 Patient is a 57M with NIDDM (on glipizide), CAD (2 wks s/p stent placement, also one prior stent placement, on clopidogrel), HTN, HLD, renal insufficiency, BPH, and COPD here today complaining of low blood count on his prior visit. No obvious signs of symptomatic anemia. Patient was at baseline at last visit. Will evaluate for anemia and possible CHF exacerbation. 09/14/17 23:39 Laboratory Tests 09/14/17 09/14/17 18:03 18:03 WBC 6.6 Hgb 9.2 L D Plt Count 206 Troponin I 0.03 D B-Natriuretic Peptide 1775.85 H CBC shows anemia, at baseline. Trop detectable to 0.03. BNP elevated to 1700. Given patient's recent stent placement will place in tele obs for ACS rule out. *DC/Admit/Observation/Transfer Diagnosis at time of Disposition: Shortness of breath - Discharge Dispostion Condition at time of disposition: Stable Decision to Admit order: Yes - Referrals - Patient Instructions - Post Discharge Activity
[2017-09-14 18:27] LABS: BASO % 0.7 % (0-2.0); EOS % 4.4 % (0-4.5); HEMATOCRIT 27.6 % (35.4-49); HEMOGLOBIN 9.2 GM/dL (11.7-16.9); LYMPH % 13.2 % (8-40); MCH 31.2 pg (25.7-33.7); MCHC 33.4 g/dl (32.0-35.9); MEAN CELL VOLUME 93.4 fl (80-96); MEAN PLT VOLUME 7.8 fl (7.5-11.1); MONO % 7.5 % (3.8-10.2); NEUT % 74.2 % (42.8-82.8); PLATELET COUNT 206 K/MM3 (134-434); RBC 2.95 M/mm3 (4.00-5.60); WHITE BLOOD COUNT 6.6 K/mm3 (4.0-10.0)
[2017-09-14 18:55] LABS: ANION GAP 8 (8-16); BLOOD UREA NITROGEN 36 mg/dL (7-18); CALCIUM 8.1 mg/dL (8.5-10.1); CHLORIDE 113 mmol/L (98-107); CO2 22 mmol/L (21-32); GLUCOSE,RANDOM 114 mg/dL (74-106); POTASSIUM 4.9 mmol/L (3.5-5.1); SGPT/ALT 17 U/L (12-78); SODIUM 143 mmol/L (136-145)
[2017-09-14 19:06] LABS: BILIRUBIN,TOTAL 0.4 mg/dL (0.2-1.0); CREATININE 1.7 mg/dL (0.7-1.3); TOT PROT 6.2 g/dl (6.4-8.2)
[2017-09-14 19:07] LABS: ALK PHOS 83 U/L (45-117); N-TERMINAL BNP 1775.85 pg/ml (5-125); SGOT/AST 12 U/L (15-37)
--- NOTE | 2017-09-14 19:46 | HP ---
CHIEF COMPLAINT: Weakness, Dizziness PCP: Dr. Ariadna Huizar HISTORY OF PRESENT ILLNESS: This is a 57 y/o man with PMHx CAD s/p stents, HTN, CKD, PAD, HLD, NIDDM, BPH, COPD, Chronic Venous Stasis Ulcers LE, Chronic Anemia. Who presents to the ED with generalized weakness, SOB. Patient reports having CP x2 days ago at rest- now resolved. Patient reports being told by his friend that he is anemic and he needs to come in for evaluation. Patient denies fever, chills, BAKER, AP, N/V/D, constipation, dysuria. ER course was notable for: (1) Trop: 0.03 (2) BNP: 1775 (3) EKG: NSR 81 bpm, left atrial enlargement, RBBB Recent Travel: None PAST MEDICAL HISTORY: See HPI PAST SURGICAL HISTORY: See HPI Social History: Smoking: Current Smoker Alcohol: None Drugs: None Lives with roommate Family History: Unable to obtain Allergies No Known Drug Allergies Allergy (Verified 09/14/17 16:00) HOME MEDICATIONS: Home Medications Medication Instructions Recorded Amlodipine Besylate [Norvasc -] 5 mg PO DAILY 09/17/16 Clopidogrel Bisulfate [Plavix -] 75 mg PO DAILY 10/17/16 Carvedilol [Coreg -] 12.5 mg PO BID #60 tablet 10/24/16 Tamsulosin HCl [Flomax -] 0.8 mg PO DAILY@0830 #30 tab 02/25/17 Atorvastatin Ca [Lipitor] 20 mg PO HS tablet 06/12/17 Furosemide [Lasix -] 40 mg PO DAILY #90 tablet 06/12/17 Carvedilol [Coreg] 6.25 mg PO DAILY 09/11/17 Glipizide [Glipizide ER] 5 mg PO DAILY 09/11/17 REVIEW OF SYSTEMS CONSTITUTIONAL: generalized weakness Absent: fever, chills, diaphoresis, malaise, loss of appetite, weight change HEENT: Absent: rhinorrhea, nasal congestion, throat pain, throat swelling, difficulty swallowing, mouth swelling, ear pain, eye pain, visual changes CARDIOVASCULAR: Absent: chest pain, syncope, palpitations, irregular heart rate, lightheadedness , peripheral edema RESPIRATORY: shortness of breath, dyspnea with exertion Absent: cough, orthopnea, wheezing, stridor, hemoptysis GASTROINTESTINAL: Absent: abdominal pain, abdominal distension, nausea, vomiting, diarrhea, constipation, melena, hematochezia GENITOURINARY: Absent: dysuria, frequency, urgency, hesitancy, hematuria, flank pain, genital pain MUSCULOSKELETAL: Absent: myalgia, arthralgia, joint swelling, back pain, neck pain SKIN: Absent: rash, itching, pallor HEMATOLOGIC/IMMUNOLOGIC: Absent: easy bleeding, easy bruising, lymphadenopathy, frequent infections ENDOCRINE: Absent: unexplained weight gain, unexplained weight loss, heat intolerance, cold intolerance NEUROLOGIC: Absent: headache, focal weakness or paresthesias, dizziness, unsteady gait, seizure, mental status changes, bladder or bowel incontinence PSYCHIATRIC: Absent: anxiety, depression, suicidal or homicidal ideation, hallucinations. PHYSICAL EXAMINATION Vital Signs - 24 hr 09/14/17 09/14/17 16:01 17:57 Temperature 98.5 F 98.3 F Pulse Rate 102 H Pulse Rate [ 72 Left Radial] Respiratory 20 20 Rate Blood Pressure 134/67 Blood Pressure 135/80 [Left Arm] O2 Sat by Pulse 97 98 Oximetry (%) GENERAL: Awake, alert, and fully oriented, in no acute distress. HEAD: Normal with no signs of trauma. EYES: Pupils equal, round and reactive to light, extraocular movements intact, sclera anicteric, conjunctiva clear. No lid lag. EARS, NOSE, THROAT: Ears normal, nares patent, oropharynx clear without exudates. Moist mucous membranes. NECK: Normal range of motion, supple without lymphadenopathy, JVD, or masses. LUNGS: Breath sounds equal, clear to auscultation bilaterally. No wheezes, and no crackles. No accessory muscle use. HEART: Regular rate and rhythm, normal S1 and S2 without murmur, rub or gallop. ABDOMEN: Soft, nontender, not distended, normoactive bowel sounds, no guarding, no rebound, no masses. No hepatomegaly or splenomegaly. MUSCULOSKELETAL: Normal range of motion at all joints. No bony deformities or tenderness. No CVA tenderness. UPPER EXTREMITIES: 2+ pulses, warm, well-perfused. No cyanosis. No clubbing. No peripheral edema. LOWER EXTREMITIES: 2+ pulses, warm, well-perfused. No calf tenderness. +4+3 R> L pitting peripheral edema. NEUROLOGICAL: Cranial nerves II-XII intact. Normal speech. Gait not observed PSYCHIATRIC: Cooperative. Good eye contact. Appropriate mood and affect. SKIN: Warm, dry, normal turgor, no rashes, normal capillary refill. +erythema to B/L LE. Laboratory Results - last 24 hr 09/14/17 09/14/17 09/14/17 16:44 16:44 16:44 WBC RBC Hgb Hct MCV MCH MCHC RDW Plt Count MPV Neutrophils % Lymphocytes % Monocytes % Eosinophils % Basophils % Sodium Cancelled Potassium Cancelled Chloride Cancelled Carbon Dioxide Cancelled Anion Gap Cancelled BUN Cancelled Creatinine Cancelled Creat Clearance w eGFR Cancelled Random Glucose Cancelled Calcium Cancelled Magnesium Total Bilirubin Cancelled AST Cancelled ALT Cancelled Alkaline Phosphatase Cancelled Creatine Kinase Cancelled Troponin I Cancelled B-Natriuretic Peptide Total Protein Cancelled Albumin Cancelled Blood Type O POSITIVE Antibody Screen Negative 09/14/17 09/14/17 09/14/17 17:23 18:03 18:03 WBC 6.6 RBC 2.95 L Hgb 9.2 L D Hct 27.6 L MCV 93.4 MCH 31.2 MCHC 33.4 RDW 17.0 H Plt Count 206 MPV 7.8 Neutrophils % 74.2 Lymphocytes % 13.2 Monocytes % 7.5 Eosinophils % 4.4 Basophils % 0.7 Sodium 143 Potassium 4.9 Chloride 113 H Carbon Dioxide 22 Anion Gap 8 BUN 36 H Creatinine 1.7 H Creat Clearance w eGFR 41.46 Random Glucose 114 H D Calcium 8.1 L Magnesium 2.0 Total Bilirubin 0.4 D AST 12 L D ALT 17 Alkaline Phosphatase 83 Creatine Kinase 183 Troponin I 0.03 D B-Natriuretic Peptide Cancelled 1775.85 H Total Protein 6.2 L Albumin 3.0 L Blood Type Antibody Screen ASSESSMENT/PLAN: This is a 57 y/o man with significant medical history of CAD s/p stent 2-3 weeks ago, PCI x4 (2007), [facility] PO[facility] mLad, 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 Placed in Tele Observation Chest Pain r/ o ACS. 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 - Asa Code(s): R07.9 - CHEST PAIN, UNSPECIFIED Qualifiers: Chest pain type: unspecified Qualified Code(s): R07.9 - Chest pain, unspecified (2) Shortness of breath Assessment/Plan: - Likely secondary to Acute on Chronic Diastolic HF - Chest Xray reviewed - Continue Lasix - Monitor renal function Code(s): R06.02 - SHORTNESS OF BREATH (3) Diastolic CHF Assessment/Plan: - See above Code(s): I50.30 - UNSPECIFIED DIASTOLIC (CONGESTIVE) HEART FAILURE (4) CAD (coronary artery disease) Assessment/Plan: - s/p stents - Continue home meds - EKG reviewed - Serial enzymes Code(s): I25.10 - ATHSCL HEART DISEASE OF [place] CORONARY ARTERY W/O ANG PCTRS Qualifiers: Coronary Disease-Associated Artery/Lesion type: [place] artery [place] vs. transplanted heart: [place] heart Associated angina: without angina Qualified Code(s): I25.10 - Atherosclerotic heart disease of [place] coronary artery without angina pectoris (5) Chronic stable angina Assessment/Plan: - stable - Pt. reports CP resolved - Appreciate Cardiology consult - Serial enzymes - Continue home meds Code(s): I20.8 - OTHER FORMS OF ANGINA PECTORIS (6) Leg swelling Assessment/Plan: - r/o DVT - WELLS Score 2 - Duplex of LE-pending - Continue Lasix - Elevate extremity Code(s): M79.89 - OTHER SPECIFIED SOFT TISSUE DISORDERS (7) HTN (hypertension) Assessment/Plan: - Stable - Monitor BP - Continue home meds - Monitor renal function Code(s): I10 - ESSENTIAL (PRIMARY) HYPERTENSION (8) Hyperlipidemia Assessment/Plan: - Continue Lipitor - Monitor LFTs Code(s): E78.5 - HYPERLIPIDEMIA, UNSPECIFIED (9) CKD (chronic kidney disease) stage 3, GFR 30-59 ml/min Assessment/Plan: - stable - Cr 1.7 at baseline - Repeat BMP in am Code(s): N18.3 - CHRONIC KIDNEY DISEASE, STAGE 3 (MODERATE) (10) Chronic renal insufficiency Assessment/Plan: - See above Code(s): N18.9 - CHRONIC KIDNEY DISEASE, UNSPECIFIED (11) History of CVA (cerebrovascular accident) Assessment/Plan: - Continue to monitor and treat with interventions accordingly Code(s): Z86.73 - PRSNL HX OF TIA (TIA), AND CEREB INFRC W/O RESID DEFICITS (12) History of arterial bypass of lower extremity Code(s): Z95.828 - PRESENCE OF OTHER VASCULAR IMPLANTS AND GRAFTS (13) History of coronary artery stent placement Code(s): Z95.5 - PRESENCE OF CORONARY ANGIOPLASTY IMPLANT AND GRAFT (14) PAD (peripheral artery disease) Code(s): I73.9 - PERIPHERAL VASCULAR DISEASE, UNSPECIFIED (15) DVT prophylaxis Assessment/Plan: - OOB - Heparin SQ Code(s): [id number] - Visit type - Emergency Visit Emergency Visit: Yes ED Registration Date: 09/14/17 Care time: The patient presented to the Emergency Department on the above date and was hospitalized for further evaluation of their emergent condition. - New Patient This patient is new to me today: Yes Date on this admission: 09/14/17 - Critical Care Critical Care patient: No Hospitalist Screening - Colonoscopy Questionnaire Colonoscopy Questionnaire: Colonoscopy Questionnaire - Patient: 50 - 75 years old and never had a screening colonoscopy: No History of colon or rectal polyps, or CA: No History of IBD, Crohn's disease or UC: No History of abdominal radiation therapy as a child: No - Relative: 1 with colon or rectal CA, or polyps at age 60 or younger: No Colon or rectal CA diagnosed at age 45 or younger: No Multiple relatives with colon or rectal CA: No - Outcome: Screening Result: Negative Screen
[2017-09-14 22:38] LABS: INR 1.12 (0.82-1.09); PROTHROMBIN TIME (PATIENT) 12.7 SEC (9.7-13.0)
[2017-09-14 22:58] LABS: CHOLESTEROL 175 mg/dL (50-200); HDL CHOLESTEROL 40 mg/dL (40-60); TRIGLYCERIDES 122 mg/dL (35-160)
[2017-09-15 01:14] VITALS: BMI 34.4
[2017-09-15 02:07] LABS: COCAINE, UR NEGATIVE ng/ml (CUTOFF=300); METHADONE, UR NEGATIVE ng/ml (CUTOFF=300); OPIATES, URI NEGATIVE ng/ml (CUTOFF=300); PHENCYCLIDINE,URINE NEGATIVE ng/ml (CUTOFF=25); URINE AMPHETAMINES NEGATIVE ng/ml (CUTOFF=500); URINE BENZODIAZEPINES NEGATIVE ng/ml (CUTOFF=200)
[2017-09-15 02:24] LABS: URINE APPEARANCE CLEAR; URINE BILIRUBIN NEGATIVE (<2.0 mg/dL); URINE COLOR STRAW; URINE GLUCOSE (UA) 1+ (NEGATIVE); URINE KETONE NEGATIVE (NEGATIVE); URINE LEUK ESTERASE NEGATIVE (NEGATIVE); URINE NITRITE NEGATIVE (NEGATIVE); URINE UROBILINOGEN NEGATIVE mg/dL (0.2-1.0)
[2017-09-15 02:25] LABS: URINE BARBITURATES NEGATIVE ng/ml (CUTOFF=200)
[2017-09-15 02:35] LABS: URINE PROTEIN 3+ (NEGATIVE)
[2017-09-15 02:44] LABS: URINE MUCUS RARE
[2017-09-15 07:17] LABS: BASO % 1.1 % (0-2.0); EOS % 5.9 % (0-4.5); HEMATOCRIT 27.1 % (35.4-49); HEMOGLOBIN 9.2 GM/dL (11.7-16.9); LYMPH % 17.3 % (8-40); MCH 31.8 pg (25.7-33.7); MEAN CELL VOLUME 93.6 fl (80-96); MEAN PLT VOLUME 7.7 fl (7.5-11.1); MONO % 8.9 % (3.8-10.2); NEUT % 66.8 % (42.8-82.8); PLATELET COUNT 172 K/MM3 (134-434); RBC 2.89 M/mm3 (4.00-5.60); RDW 16.4 % (11.9-15.9); WHITE BLOOD COUNT 5.6 K/mm3 (4.0-10.0)
[2017-09-15 08:15] LABS: CHLORIDE 112 mmol/L (98-107); POTASSIUM 5.2 mmol/L (3.5-5.1); SODIUM 143 mmol/L (136-145)
[2017-09-15 08:30] LABS: ANION GAP 7 (8-16); BLOOD UREA NITROGEN 37 mg/dL (7-18); CALCIUM 8.3 mg/dL (8.5-10.1); CO2 24 mmol/L (21-32); CREATININE 1.7 mg/dL (0.7-1.3); GLUCOSE,RANDOM 131 mg/dL (74-106); PHOSPHOROUS 3.8 mg/dL (2.5-4.9)
--- NOTE | 2017-09-15 08:57 | PN ---
Progress Note, Physician Chief Complaint: Known to me from office and multiple hospitalizations: PMH: CAD s/p multivessel PCI, most recently LCX at [facility] 2 weeks ago LICA stenosis 80% PAD s/p b/l LE bypass DM CKD Chronic diastolic CHF Anemia Presents to ER with generalized weakness, SOB and fatigue. Went to ER several days ago and was sent home as nothing acute was found- his sx of fatigue and SOB persisted and he felt he was "anemic" and returned. He denies CP, palps. No fever or chills. Denies cough Denies melena or hematuria TnI are serially negative. - Objective Vital Signs: Vital Signs Temperature 97.6 F 09/15/17 06:00 Pulse Rate 87 09/15/17 06:00 Respiratory Rate 18 09/15/17 07:42 Blood Pressure 135/82 09/15/17 06:00 O2 Sat by Pulse Oximetry (%) 96 09/15/17 07:42 Constitutional: Yes: Calm Cardiovascular: Yes: Regular Rate and Rhythm Respiratory: Yes: CTA Bilaterally Gastrointestinal: Yes: Soft Edema: Yes Edema: LLE: 1+, RLE: 1+ Neurological: Yes: Alert, Oriented Labs: CBC, BMP 09/15/17 06:58 09/15/17 06:58 INR, PTT INR 1.12 (0.82-1.09) 09/14/17 16:44 Laboratory Tests 09/14/17 09/14/17 09/15/17 16:44 18:03 01:00 WBC Hgb Plt Count INR 1.12 Sodium Potassium BUN Creatinine Troponin I 0.03 D 0.02 D B-Natriuretic Peptide 1775.85 H 09/15/17 09/15/17 06:58 06:58 WBC 5.6 Hgb 9.2 L Plt Count 172 INR Sodium 143 Potassium 5.2 H BUN 37 H Creatinine 1.7 H Troponin I 0.02 B-Natriuretic Peptide - ....Imaging Chest X-ray: Image Reviewed EKG: Image Reviewed (nsr, bifasci. block, 81bpm) Other: Other (Echo 07/2017: Normal LVEF, hypokinesis of lateral wall) Assessment/Plan IMP: Chronic GONG Known CAD s/p PCI LCx, T.O RCA Chronic Diastolic CHF with recent echo 07/2017 showing overall normal LVEF PAD CKD DM REC: 1. Work up of anemia as per PMD- does not meet criteria for transfusion at this time 2. Lasix 40mg IV x 1 today, re-assess volume status 24 hours 3. ASA, Plavix, statin 4. Outpatient f/u w/ Vascular sx for LICA stenosis 80%
[2017-09-15] MEDS ORDERED: FUROSEMIDE 40 MG/4 ML INJECTABLE VIAL IVPUSH ONE (09:01)
--- NOTE | 2017-09-15 10:22 | PN ---
Progress Note (short form) - Note Progress Note: pt seen/ examined. chart reviewed feels better decreased sob. h/h stable denies cp. admits sill smokes occasionally denies cp. cardiology f/u noted/ appreciated Vital Signs Temp 97.6 F 09/15/17 06:00 Pulse 87 09/15/17 06:00 Resp 18 09/15/17 07:42 BP 135/82 09/15/17 06:00 Pulse Ox 96 09/15/17 07:42 Intake & Output 09/14/17 09/14/17 09/15/17 11:59 23:59 11:59 Output Total 700 Balance -700 Weight 200 lb 194 lb 9.6 oz Output: Urine 700 Void 700 Other: Voiding Method Urinal Height 5 ft 3 in 5 ft 3 in Body Mass Index (BMI) 35.4 34.4 Weight Measurement Method Standing Scale Active Medications Aspirin (Asa -) 81 mg PO DAILY TONYA Atorvastatin Calcium (Lipitor -) 20 mg PO HS TONYA Clopidogrel Bisulfate (Plavix -) 75 mg PO DAILY TONYA CBC, BMP 09/15/17 06:58 09/15/17 06:58 Physical Exam. conscious / cooperative chronic ill appearance cvs- s1, s2 rrr abd - soft ext- + edema neuro- alert/ awake a/p stable i/v lasix monitor lytes smoking cessation counselling h/h stable Anemia work up as out pt --advised before also continue prsent care will follow Problem List - Problems (1) Shortness of breath Code(s): R06.02 - SHORTNESS OF BREATH (2) ASHD (arteriosclerotic heart disease) Code(s): I25.10 - ATHSCL HEART DISEASE OF [place] CORONARY ARTERY W/O ANG PCTRS (3) Acute on chronic diastolic CHF (congestive heart failure) Code(s): I50.33 - ACUTE ON CHRONIC DIASTOLIC (CONGESTIVE) HEART FAILURE (4) Anemia Code(s): D64.9 - ANEMIA, UNSPECIFIED Qualifiers: Anemia type: unspecified type Qualified Code(s): D64.9 - Anemia, unspecified (5) CAD (coronary artery disease) Code(s): I25.10 - ATHSCL HEART DISEASE OF [place] CORONARY ARTERY W/O ANG PCTRS Qualifiers: Coronary Disease-Associated Artery/Lesion type: [place] artery [place] vs. transplanted heart: [place] heart Associated angina: without angina Qualified Code(s): I25.10 - Atherosclerotic heart disease of [place] coronary artery without angina pectoris
[2017-09-15] MEDS: CLOPIDOGREL BISULFATE 75 MG TABLET (FP) PO SCH (10:34)
[2017-09-15] MEDS: ASPIRIN 81 MG CHEWABLE TABLETS PO SCH (10:34)
--- NOTE | 2017-09-15 11:17 | EKG ---
Test Reason : Blood Pressure : / mmHG Vent. Rate : 078 BPM Atrial Rate : 078 BPM P-R Int : 182 ms QRS Dur : 142 ms QT Int : 396 ms P-R-T Axes : 065 -58 050 degrees QTc Int : 451 ms NORMAL SINUS RHYTHM POSSIBLE LEFT ATRIAL ENLARGEMENT RIGHT BUNDLE BRANCH BLOCK LEFT ANTERIOR FASCICULAR BLOCK BIFASCICULAR BLOCK ABNORMAL ECG WHEN COMPARED WITH ECG OF 11-SEP-2017 20:49, NONSPECIFIC T WAVE ABNORMALITY, IMPROVED IN LATERAL LEADS Confirmed by CYNDI LAMBERT MD ([id number]) on 09/15/2017 11:17:15 AM Referred By: Confirmed By:CYNDI LAMBERT MD
[2017-09-15] MEDS: ATORVASTATIN CA 20 MG TABLET (FP) PO SCH (21:00)
[2017-09-16 08:18] LABS: BASO % 0.6 % (0-2.0); EOS % 4.7 % (0-4.5); HEMATOCRIT 27.3 % (35.4-49); HEMOGLOBIN 9.5 GM/dL (11.7-16.9); LYMPH % 10.6 % (8-40); MCH 32.2 pg (25.7-33.7); MCHC 34.9 g/dl (32.0-35.9); MEAN CELL VOLUME 92.3 fl (80-96); MEAN PLT VOLUME 7.4 fl (7.5-11.1); MONO % 9.1 % (3.8-10.2); PLATELET COUNT 160 K/MM3 (134-434); RBC 2.96 M/mm3 (4.00-5.60); RDW 16.7 % (11.9-15.9); WHITE BLOOD COUNT 6.4 K/mm3 (4.0-10.0)
--- NOTE | 2017-09-16 08:24 | PN ---
Progress Note, Physician Chief Complaint: no distress feels slightly better no sob no chest pain no pain in legs - Current Medication List Current Medications: Active Medications Aspirin (Asa -) 81 mg PO DAILY [facility] Last Admin: 09/15/17 10:34 Dose: 81 mg Atorvastatin Calcium (Lipitor -) 20 mg PO HS [facility] Last Admin: 09/15/17 21:00 Dose: 20 mg Clopidogrel Bisulfate (Plavix -) 75 mg PO DAILY [facility] Last Admin: 09/15/17 10:34 Dose: 75 mg - Objective Vital Signs: Vital Signs Temperature 97.8 F 09/16/17 06:00 Pulse Rate 87 09/16/17 06:00 Respiratory Rate 20 09/16/17 06:00 Blood Pressure 147/64 09/16/17 06:00 O2 Sat by Pulse Oximetry (%) 97 09/15/17 21:00 Constitutional: Yes: No Distress, Calm Cardiovascular: Yes: Regular Rate and Rhythm Respiratory: Yes: Diminished Gastrointestinal: Yes: Normal Bowel Sounds, Soft, Abdomen, Obese. No: Tenderness Extremities: Yes: Erythema Edema: Yes Edema: LLE: 2+, RLE: 2+ Labs: INR, PTT INR 1.12 (0.82-1.09) 09/14/17 16:44 Problem List - Problems (1) ASHD (arteriosclerotic heart disease) Code(s): I25.10 - ATHSCL HEART DISEASE OF [place] CORONARY ARTERY W/O ANG PCTRS (2) Acute on chronic diastolic CHF (congestive heart failure) Code(s): I50.33 - ACUTE ON CHRONIC DIASTOLIC (CONGESTIVE) HEART FAILURE (3) Arterial insufficiency of lower extremity Code(s): I73.9 - PERIPHERAL VASCULAR DISEASE, UNSPECIFIED (4) CAD (coronary artery disease) Code(s): I25.10 - ATHSCL HEART DISEASE OF [place] CORONARY ARTERY W/O ANG PCTRS Qualifiers: Coronary Disease-Associated Artery/Lesion type: [place] artery [place] vs. transplanted heart: [place] heart Associated angina: without angina Qualified Code(s): I25.10 - Atherosclerotic heart disease of [place] coronary artery without angina pectoris (5) CHF (congestive heart failure) Code(s): I50.9 - HEART FAILURE, UNSPECIFIED Qualifiers: Heart failure type: unspecified Heart failure chronicity: acute on chronic Qualified Code(s): I50.9 - Heart failure, unspecified (6) CKD (chronic kidney disease) Code(s): N18.9 - CHRONIC KIDNEY DISEASE, UNSPECIFIED Qualifiers: Chronic kidney disease stage: unspecified stage Qualified Code(s): N18.9 - Chronic kidney disease, unspecified Assessment/Plan received iv Lasix yesterday continue with meds will give one dose Lasix today anemia work up as outpt hanna wrap for chronic venous stasis
[2017-09-16 08:38] LABS: ANION GAP 5 (8-16); BLOOD UREA NITROGEN 31 mg/dL (7-18); CHLORIDE 111 mmol/L (98-107); CO2 27 mmol/L (21-32); GLUCOSE,RANDOM 101 mg/dL (74-106); SODIUM 143 mmol/L (136-145)
[2017-09-16 08:39] LABS: CREATININE 1.6 mg/dL (0.7-1.3)
[2017-09-16] MEDS: CLOPIDOGREL BISULFATE 75 MG TABLET (FP) PO SCH (09:31)
[2017-09-16] MEDS: ASPIRIN 81 MG CHEWABLE TABLETS PO SCH (09:31)
--- NOTE | 2017-09-16 16:50 | PN ---
Progress Note, Physician Chief Complaint: Pt A&Ox3; sitting up at bedisde. Denies chest pain or shortness of breath. C/o "moderate" sore throat, earache, and nasal congestion that began earlier today. History of Present Illness: The patient is a 57 year old white male with a past medical history of NIDDM ( on glipizide), CAD (2 wks s/p stent placement, also one prior stent placement, on clopidogrel), HTN (on amlodipine), HLD (on atorvastatin), renal insufficiency , BPH (on tamsulosin), and COPD who presents with dizziness since this morning. The patient reports that his roommate believes he needs a blood transfusion. He endorses a history of blood transfusions and reports that his symptoms presented similarly. He endorses associated shortness of breath when walking up and down stains and diarrhea. - Current Medication List Current Medications: Active Medications Aspirin (Asa -) 81 mg PO DAILY [facility] Last Admin: 09/16/17 09:31 Dose: 81 mg Atorvastatin Calcium (Lipitor -) 20 mg PO [facility] Last Admin: 09/15/17 21:00 Dose: 20 mg Clopidogrel Bisulfate (Plavix -) 75 mg PO DAILY [facility] Last Admin: 09/16/17 09:31 Dose: 75 mg - Objective Vital Signs: Vital Signs Temperature 98.3 F 09/16/17 13:50 Pulse Rate 86 09/16/17 13:50 Respiratory Rate 20 09/16/17 13:50 Blood Pressure 139/64 09/16/17 13:50 O2 Sat by Pulse Oximetry (%) 98 09/16/17 10:00 Constitutional: Yes: No Distress Eyes: Yes: WNL HENT: Yes: WNL Neck: Yes: WNL Cardiovascular: Yes: Regular Rate and Rhythm, S1, S2 (split), S4 Respiratory: Yes: WNL Gastrointestinal: Yes: Soft ...Rectal Exam: Yes: Deferred Genitourinary: No: Anuria Breast(s): Yes: WNL Musculoskeletal: Yes: Muscle Weakness Extremities: Yes: WNL Edema: No Peripheral Pulses WNL: Yes Neurological: Yes: Alert, Oriented, Weakness Psychiatric: Yes: Other Labs: CBC, BMP 09/16/17 07:45 09/16/17 07:45 INR, PTT INR 1.12 (0.82-1.09) 09/14/17 16:44 Abnormal Lab Results 09/16/17 09/16/17 07:45 07:45 RBC 2.96 L Hgb 9.5 L Hct 27.3 L RDW 16.7 H MPV 7.4 L Eosinophils % 4.7 H Chloride 111 H Anion Gap 5 L BUN 31 H Creatinine 1.6 H Calcium 8.0 L Problem List - Problems (1) Anemia Assessment/Plan: Hb stable at 9.5. Code(s): D64.9 - ANEMIA, UNSPECIFIED Qualifiers: Anemia type: unspecified type Qualified Code(s): D64.9 - Anemia, unspecified (2) Diastolic CHF Code(s): I50.30 - UNSPECIFIED DIASTOLIC (CONGESTIVE) HEART FAILURE (3) HTN (hypertension) Code(s): I10 - ESSENTIAL (PRIMARY) HYPERTENSION (4) History of arterial bypass of lower extremity Assessment/Plan: Aggressive lipid and BP control. Code(s): Z95.828 - PRESENCE OF OTHER VASCULAR IMPLANTS AND GRAFTS (5) History of coronary artery stent placement Assessment/Plan: S/p coronary stent 2 weeks ago. Continue ASA and clopidogrel. Aggressive lipid control (LDL is presently >100 mg/dL); on statin. Code(s): Z95.5 - PRESENCE OF CORONARY ANGIOPLASTY IMPLANT AND GRAFT (6) Hyperlipidemia Assessment/Plan: on atorvastatin Code(s): E78.5 - HYPERLIPIDEMIA, UNSPECIFIED (7) IDDM (insulin dependent diabetes mellitus) Assessment/Plan: has been on glipizide. Consider ACEI or ARB for HTN, renal protection (though caution with reduced Cr clearance). 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
[2017-09-16] MEDS: ATORVASTATIN CA 20 MG TABLET (FP) PO SCH (21:12)
[2017-09-16] MEDS: ACETAMINOPHEN 325 MG TABLET (FP) PO PRN (21:12)
[2017-09-17] MEDS: CLOPIDOGREL BISULFATE 75 MG TABLET (FP) PO SCH (09:29)
[2017-09-17] MEDS: BENZOCAINE/MENTH/CETYLPYRD CL 1 EACH LOZENGE MM PRN ×2 (09:29→21:13)
[2017-09-17] MEDS: ASPIRIN 81 MG CHEWABLE TABLETS PO SCH (09:29)
--- NOTE | 2017-09-17 09:31 | PN ---
Progress Note, Physician Chief Complaint: cold symptoms denies SOB - Current Medication List Current Medications: Active Medications Acetaminophen (Tylenol -) 650 mg PO Q6H PRN PRN Reason: PAIN LEVEL 7 - 10 Last Admin: 09/16/17 21:12 Dose: 650 mg Aspirin (Asa -) 81 mg PO DAILY [facility] Last Admin: 09/17/17 09:29 Dose: 81 mg Atorvastatin Calcium (Lipitor -) 20 mg PO HS [facility] Last Admin: 09/16/17 21:12 Dose: 20 mg Benzocaine/Menthol (Cepacol Lozenge -) 1 each MM DAILY PRN PRN Reason: SORE THROAT Last Admin: 09/17/17 09:29 Dose: 1 each Clopidogrel Bisulfate (Plavix -) 75 mg PO DAILY [facility] [place] Last Admin: 09/17/17 09:29 Dose: 75 mg - Objective Vital Signs: Vital Signs Temperature 98.6 F 09/17/17 02:00 Pulse Rate 86 09/17/17 02:00 Respiratory Rate 20 09/17/17 02:00 Blood Pressure 150/64 09/17/17 02:00 O2 Sat by Pulse Oximetry (%) 94 L 09/16/17 21:00 Constitutional: Yes: No Distress, Calm Cardiovascular: Yes: Regular Rate and Rhythm Respiratory: Yes: Diminished Gastrointestinal: Yes: Normal Bowel Sounds, Soft. No: Tenderness Edema: Yes Labs: CBC, BMP 09/16/17 07:45 09/16/17 07:45 INR, PTT INR 1.12 (0.82-1.09) 09/14/17 16:44 Problem List - Problems (1) ASHD (arteriosclerotic heart disease) Code(s): I25.10 - ATHSCL HEART DISEASE OF [place] CORONARY ARTERY W/O [facility] PCTRS (2) Acute on chronic diastolic CHF (congestive heart failure) Code(s): I50.33 - ACUTE ON CHRONIC DIASTOLIC (CONGESTIVE) HEART FAILURE (3) Arterial insufficiency of lower extremity Code(s): I73.9 - PERIPHERAL VASCULAR DISEASE, UNSPECIFIED (4) CAD (coronary artery disease) Code(s): I25.10 - ATHSCL HEART DISEASE OF [place] CORONARY ARTERY W/O ANG PCTRS Qualifiers: Coronary Disease-Associated Artery/Lesion type: [place] artery [place] vs. transplanted heart: [place] heart Associated angina: without angina Qualified Code(s): I25.10 - Atherosclerotic heart disease of [place] coronary artery without angina pectoris (5) CHF (congestive heart failure) Code(s): I50.9 - HEART FAILURE, UNSPECIFIED Qualifiers: Heart failure type: unspecified Heart failure chronicity: acute on chronic Qualified Code(s): I50.9 - Heart failure, unspecified (6) CKD (chronic kidney disease) Code(s): N18.9 - CHRONIC KIDNEY DISEASE, UNSPECIFIED Qualifiers: Chronic kidney disease stage: unspecified stage Qualified Code(s): N18.9 - Chronic kidney disease, unspecified Assessment/Plan add antihistamines for relief continue with meds received Lasix anemia work up as outpt hanna wrap for chronic venous stasis renal function better dc plan for tomorrow
[2017-09-17] MEDS: LORATADINE 10 MG TABLET PO SCH (12:42)
[2017-09-17] MEDS: glipiZIDE-XL 5 MG TAB.ER.24 PO SCH (12:42)
[2017-09-17] MEDS: INSULIN SLIDING SCALE (NOVOLOG) 1 VIAL SQ SCH (17:36)
[2017-09-17] MEDS: FLUTICASONE PROP 0.05% 16 GM NASAL SPRAY NS SCH (17:37)
--- NOTE | 2017-09-17 19:16 | PN ---
Progress Note, Physician Chief Complaint: Pt A&Ox3; still with nasal congestion. History of Present Illness: The patient is a 57 year old white male with a past medical history of NIDDM ( on glipizide), CAD (2 wks s/p stent placement, also one prior stent placement, on clopidogrel), HTN (on amlodipine), HLD (on atorvastatin), renal insufficiency , BPH (on tamsulosin), LE venous insufficiency, and COPD who presents with dizziness since this morning. The patient reports that his roommate believes he needs a blood transfusion. He endorses a history of blood transfusions and reports that his symptoms presented similarly. He endorses associated shortness of breath when walking up and down stains and diarrhea. - Current Medication List Current Medications: Active Medications Acetaminophen (Tylenol -) 650 mg PO Q6H PRN PRN Reason: PAIN LEVEL 7 - 10 Last Admin: 09/16/17 21:12 Dose: 650 mg Aspirin (Asa -) 81 mg PO DAILY [facility] Last Admin: 09/17/17 09:29 Dose: 81 mg Atorvastatin Calcium (Lipitor -) 20 mg PO HS [facility] Last Admin: 09/16/17 21:12 Dose: 20 mg Benzocaine/Menthol (Cepacol Lozenge -) 1 each MM DAILY PRN PRN Reason: SORE THROAT Last Admin: 09/17/17 09:29 Dose: 1 each Clopidogrel Bisulfate (Plavix -) 75 mg PO DAILY [facility] Last Admin: 09/17/17 09:29 Dose: 75 mg Fluticasone Propionate (Flonase -) 2 spray NS DAILY [facility] Last Admin: 09/17/17 17:37 Dose: 2 sprays Glipizide (Glucotrol Xl -) 5 mg PO AM [facility] Last Admin: 09/17/17 12:42 Dose: 5 mg Insulin Aspart (Novolog Vial Sliding Scale -) 1 vial SQ TIDAC [facility] PRN Reason: Protocol Last Admin: 09/17/17 17:36 Dose: Not Given Loratadine (Claritin -) 10 mg PO DAILY [facility] Last Admin: 09/17/17 12:42 Dose: 10 mg - Objective Vital Signs: Vital Signs Temperature 98.9 F 09/17/17 17:34 Pulse Rate 84 09/17/17 17:34 Respiratory Rate 18 09/17/17 17:34 Blood Pressure 140/59 09/17/17 17:34 O2 Sat by Pulse Oximetry (%) 96 09/17/17 10:00 Constitutional: Yes: Calm Eyes: Yes: WNL HENT: Yes: WNL Neck: Yes: WNL Cardiovascular: Yes: S1, S2 (split), S4 Respiratory: Yes: Regular Gastrointestinal: Yes: Soft, Abdomen, Obese ...Rectal Exam: Yes: Deferred Genitourinary: No: Anuria Musculoskeletal: Yes: Joint Swelling, Muscle Weakness Extremities: Yes: Cool Edema: Yes Edema: LLE: 1+, RLE: 1+ Peripheral Pulses WNL: No Peripheral Pulses: Left Doralis Pedis: 1+, Right Dorsalis Pedis: 1+ Integumentary: Yes: Venous Stasis Changes Wound/Incision: Yes: Dressing Dry and Intact Neurological: Yes: Alert, Oriented, Weakness Psychiatric: Yes: Other (anxiety) Labs: CBC, BMP 09/16/17 07:45 09/16/17 07:45 INR, PTT INR 1.12 (0.82-1.09) 09/14/17 16:44 - ....Imaging Chest X-ray: Image Reviewed (no acute pathology) Problem List - Problems (1) Anemia Assessment/Plan: Hb stable at 9.5 09/16/2017. Code(s): D64.9 - ANEMIA, UNSPECIFIED Qualifiers: Anemia type: unspecified type Qualified Code(s): D64.9 - Anemia, unspecified (2) Diastolic CHF Assessment/Plan: Pt had been on carvedilol, amlodiine, and furosemide. F/u BUN/Cr, daily wt, Is and Os, electrolytes. Code(s): I50.30 - UNSPECIFIED DIASTOLIC (CONGESTIVE) HEART FAILURE (3) HTN (hypertension) Code(s): I10 - ESSENTIAL (PRIMARY) HYPERTENSION (4) History of arterial bypass of lower extremity Assessment/Plan: Aggressive lipid (on statin; increase dose if necessary) and BP control. Code(s): Z95.828 - PRESENCE OF OTHER VASCULAR IMPLANTS AND GRAFTS (5) History of coronary artery stent placement Assessment/Plan: S/p coronary stent 2 weeks ago. Continue ASA and clopidogrel. Aggressive lipid control (LDL is presently >100 mg/dL); on statin. Code(s): Z95.5 - PRESENCE OF CORONARY ANGIOPLASTY IMPLANT AND GRAFT (6) Hyperlipidemia Assessment/Plan: on atorvastatin; increase dose if needed (LDL 118 mg/dL ? on present dose of statin). Code(s): E78.5 - HYPERLIPIDEMIA, UNSPECIFIED (7) IDDM (insulin dependent diabetes mellitus) Assessment/Plan: has been on glipizide. Consider ACEI or ARB for HTN, renal protection (though caution with reduced Cr clearance). 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 Code(s): I73.9 - PERIPHERAL VASCULAR DISEASE, UNSPECIFIED
[2017-09-17] MEDS: ATORVASTATIN CA 20 MG TABLET (FP) PO SCH (21:13)
[2017-09-17] MEDS: ACETAMINOPHEN 325 MG TABLET (FP) PO PRN (21:13)
[2017-09-18] MEDS: INSULIN SLIDING SCALE (NOVOLOG) 1 VIAL SQ SCH ×2 (06:06→12:34)
[2017-09-18 08:08] LABS: HEMATOCRIT 27.9 % (35.4-49); HEMOGLOBIN 9.3 GM/dL (11.7-16.9); MCH 31.3 pg (25.7-33.7); MCHC 33.5 g/dl (32.0-35.9); MEAN CELL VOLUME 93.3 fl (80-96); MEAN PLT VOLUME 7.6 fl (7.5-11.1); PLATELET COUNT 170 K/MM3 (134-434); RBC 2.98 M/mm3 (4.00-5.60); RDW 16.6 % (11.9-15.9); WHITE BLOOD COUNT 5.3 K/mm3 (4.0-10.0)
[2017-09-18 08:44] LABS: CHLORIDE 110 mmol/L (98-107); POTASSIUM 5.2 mmol/L (3.5-5.1); SODIUM 141 mmol/L (136-145)
[2017-09-18] MEDS ORDERED: PT OWN MED DRAWER 7, Y5N ONE (08:46)
[2017-09-18] MEDS: ACETAMINOPHEN 325 MG TABLET (FP) PO PRN (08:48)
[2017-09-18] MEDS: glipiZIDE-XL 5 MG TAB.ER.24 PO SCH (08:48)
[2017-09-18] MEDS: CLOPIDOGREL BISULFATE 75 MG TABLET (FP) PO SCH (09:02)
[2017-09-18] MEDS: FLUTICASONE PROP 0.05% 16 GM NASAL SPRAY NS SCH (09:02)
[2017-09-18] MEDS: LORATADINE 10 MG TABLET PO SCH (09:02)
[2017-09-18] MEDS: ASPIRIN 81 MG CHEWABLE TABLETS PO SCH (09:05)
[2017-09-18 09:11] LABS: ALBUMIN 2.9 g/dl (3.4-5.0); ALK PHOS 88 U/L (45-117); ANION GAP 6 (8-16); BILIRUBIN,TOTAL 0.6 mg/dL (0.2-1.0); BLOOD UREA NITROGEN 34 mg/dL (7-18); CALCIUM 8.2 mg/dL (8.5-10.1); CO2 25 mmol/L (21-32); CREATININE 1.8 mg/dL (0.7-1.3); GLUCOSE,RANDOM 72 mg/dL (74-106); SGOT/AST 12 U/L (15-37); SGPT/ALT 13 U/L (12-78); TOT PROT 6.1 g/dl (6.4-8.2)
--- NOTE | 2017-09-18 13:26 | DS ---
Physical Examination Vital Signs: Vital Signs Temperature 98.3 F 09/18/17 06:03 Pulse Rate 91 H 09/18/17 06:03 Respiratory Rate 18 09/18/17 08:51 Blood Pressure 179/83 09/18/17 06:03 O2 Sat by Pulse Oximetry (%) 96 09/18/17 08:51 Findings/Remarks: He is much better No complaints Walks with walker Chart reviewed Afebrile denies chest pain No shortness of breath Constitutional: Yes: No Distress, Calm Eyes: Yes: Conjunctiva Clear Neck: Yes: Supple Cardiovascular: Yes: Regular Rate and Rhythm Respiratory: Yes: Diminished Gastrointestinal: Yes: Soft Edema: No Neurological: Yes: Alert Psychiatric: Yes: Alert Labs: CBC, BMP 09/18/17 07:52 09/18/17 07:52 Discharge Summary Reason For Visit: SHORTNESS OF BREATH Current Active Problems DVT prophylaxis (Acute) Shortness of breath (Acute) Hospital Course: patient with extensive past medical history as documented--admitted for shortness of breath Found to be in CHF exacerbation Treated with IV Lasix got much better Cardiology followed Now stable for discharge home Strongly advised to follow up in office within 2 weeks Medications reconciled Also advised again that he needs to have----anemia workup--- including colonoscopy as outpatient patient understands Smoking cessation counseling again provided Above plan discussed with nursing staff also as well as complex case manager Discharge today Condition: Stable - Instructions Referrals: Ariadna Huizar MD [Primary Care Provider] - Disposition: HOME - Home Medications Comprehensive Discharge Medication List: Ambulatory Orders Amlodipine Besylate [Norvasc -] 5 mg PO DAILY 09/17/16 Clopidogrel Bisulfate [Plavix -] 75 mg PO DAILY 10/17/16 Carvedilol [Coreg -] 12.5 mg PO BID #60 tablet 10/24/16 Tamsulosin HCl [Flomax -] 0.8 mg PO DAILY@0830 #30 tab 02/25/17 Atorvastatin Ca [Lipitor] 20 mg PO HS tablet 06/12/17 Furosemide [Lasix -] 40 mg PO DAILY #90 tablet 06/12/17 Carvedilol [Coreg] 6.25 mg PO DAILY 09/11/17 Glipizide [Glipizide ER] 5 mg PO DAILY 09/11/17 Acetaminophen [Tylenol .Regular Strength -] 650 mg PO Q6H PRN tablet 09/18/17 Aspirin [ASA -] 81 mg PO DAILY tab.chew 09/18/17 Fluticasone Prop 0.05% Nasal [Flonase -] 2 spray NS DAILY spray 09/18/17 Loratadine [Claritin -] 10 mg PO DAILY tablet 09/18/17
[2017-09-18 14:23] VITALS: BP 157/85; PULSE 89; TEMP 98.9
== END 2017-09-18 15:07 | disposition home or self-care (01) ==
LOC: JER 15:42 → JERBED 19:43 → J4S 09-15 00:27
PROVIDERS: ADMIT Internal Medicine; ATTEND Internal Medicine
PROC: 3E033GC Introduction of Other Therapeutic Substance into Peripheral Vein, Percutaneous Approach (ICD-10-PCS; principal; 2017-09-14)
PROC: 3E0F7GC Introduction of Other Therapeutic Substance into Respiratory Tract, Via Natural or Artificial Opening (ICD-10-PCS; 2017-09-14)
DX: R06.02 Shortness of breath (principal); E11.22 Type 2 diabetes mellitus with diabetic chronic kidney disease; I12.9 Hypertensive chronic kidney disease with stage 1 through stage 4 chronic kidney disease, or unspecified chronic kidney disease; N18.3 Chronic kidney disease, stage 3 (moderate); E78.5 Hyperlipidemia, unspecified; I25.118 Atherosclerotic heart disease of native coronary artery with other forms of angina pectoris; I50.33 Acute on chronic diastolic (congestive) heart failure; I45.10 Unspecified right bundle-branch block; I73.9 Peripheral vascular disease, unspecified; N28.9 Disorder of kidney and ureter, unspecified; N40.0 Benign prostatic hyperplasia without lower urinary tract symptoms; J44.9 Chronic obstructive pulmonary disease, unspecified; F17.200 Nicotine dependence, unspecified, uncomplicated; M79.89 Other specified soft tissue disorders; Z95.5 Presence of coronary angioplasty implant and graft; Z86.73 Personal history of transient ischemic attack (TIA), and cerebral infarction without residual deficits; Z79.84 Long term (current) use of oral hypoglycemic drugs; D64.89 Other specified anemias; Z95.828 Presence of other vascular implants and grafts; Z79.82 Long term (current) use of aspirin
CPT/HCPCS: 36415; 71046-TC-FY; 80048; 80053; 80061; 80307; 81003; 81015; 82550; 82553; 82962; 83721; 83735; 83880; 84100; 84484; 85025; 85027; 85610; 86850; 86900; 86901; 93005; 93010; 93970-TC; 94640; 96374; 99285-25; G0378

== ENCOUNTER 2017-10-15 10:14 | Emergency (ER) | payer OTHER ==
[2017-10-15 10:28] VITALS: BMI 34.0
--- NOTE | 2017-10-15 11:07 | PDOC ---
History of Present Illness - General Chief Complaint: Urinary Problem Stated Complaint: PAIN Time Seen by Provider: 10/15/17 10:54 History Source: Patient Exam Limitations: No Limitations - History of Present Illness Initial Comments: This is a 57 YOM with h/o CAD s/p stents, HTN, CKD, PAD, HLD, NIDDM, BPH, COPD, PVD with venous stasis ulcers to LE, and chronic anemia who p/w difficulty urinating and leg pain after running out of medications. He additionally has left eyelid swelling and itching and believes he has been rubbing the eye. The eye has been crusting a bit, but no active discharge he has noticed, and no vision changes. He has unchanged chronic LUE mild numbness which has been ongoing for many months and he has never had this evaluated. He has not taken his Plavix, Norvasc, or Flomax in the past several days because he ran out of refills. He has not been able to get to his PCP's office (Saroj Huizar) because of insurance issues and owing too much money to the clinic (per his report). He denies any fever, chills, nausea, vomiting, diarrhea, constipation, or others symptoms. Past History - Past Medical History Allergies/Adverse Reactions: Allergies Allergy/AdvReac Type Severity Reaction Status Date / Time No Known Drug Allergies Allergy Verified 10/15/17 10:27 Home Medications: Ambulatory Orders Carvedilol [Coreg -] 12.5 mg PO BID #60 tablet 10/24/16 Carvedilol [Coreg] 6.25 mg PO DAILY 09/11/17 Acetaminophen [Tylenol .Regular Strength -] 650 mg PO Q6H PRN tablet 09/18/17 Aspirin [ASA -] 81 mg PO DAILY tab.chew 09/18/17 Fluticasone Prop 0.05% Nasal [Flonase -] 2 spray NS DAILY spray 09/18/17 Loratadine [Claritin -] 10 mg PO DAILY tablet 09/18/17 Amlodipine Besylate [Norvasc -] 5 mg PO DAILY #30 tablet 10/15/17 Atorvastatin Ca [Lipitor] 20 mg PO HS #30 tablet 10/15/17 Clopidogrel Bisulfate [Plavix -] 75 mg PO DAILY #30 tablet 10/15/17 Furosemide [Lasix -] 40 mg PO DAILY #90 tablet 10/15/17 Glipizide [Glipizide ER] 5 mg PO DAILY #30 tab.er.24 10/15/17 Tamsulosin HCl [Flomax -] 0.8 mg PO DAILY@0830 #30 tab 10/15/17 Anemia: No Asthma: No Cancer: No Cardiac Disorders: Yes (stent x 2) CVA: Yes (2009, 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) COPD: No CHF: No Dementia: No Diabetes: Yes GI Disorders: No Disorders: No HTN: Yes Hypercholesterolemia: Yes Liver Disease: No Seizures: No Thyroid Disease: No - Surgical History Abdominal Surgery: No Appendectomy: No Cardiac Surgery: Yes (STENTS X2) Cholecystectomy: No Lung Surgery: No Neurologic Surgery: No Orthopedic Surgery: No - Immunization History Immunization Up to Date: Yes - Suicide/Smoking/Psychosocial Hx Smoking Status: Yes Smoking History: Current every day smoker Have you smoked in the past 12 months: Yes Number of Cigarettes Smoked Daily: 3 If you are a former smoker, when did you quit?: 09/2016 Cigars Per Day: 0 Information on smoking cessation initiated: No 'Breaking Loose' booklet given: 06/01/17 Hx Alcohol Use: No Drug/Substance Use Hx: No Substance Use Type: None Hx Substance Use Treatment: No Review of Systems - Review of Systems Able to Perform ROS?: Yes Constitutional: No: Chills, Fever, Unexplained wgt Loss HEENTM: No: Nose Congestion, Throat Pain Respiratory: No: Cough, Shortness of Breath Cardiac (ROS): No: Chest Pain, Palpitations ABD/GI: Yes: Other (flank pain). No: Constipated, Diarrhea, Nausea, Vomiting : Yes: Other (difficulty urinating). No: Burning, Dysuria Musculoskeletal: Yes: Other (leg pain). No: Back Pain, Neck Pain Integumentary: No: Bruising, Rash Neurological: No: Headache, Numbness, Tingling, Weakness, Dizziness Endocrine: No: Unexplained Weight Gain, Unexplained Weight Loss *Physical Exam - Vital Signs Last Vital Signs Temp Pulse Resp BP Pulse Ox 98.8 F 101 H 20 123/65 99 10/15/17 10:10/15/17 10:10/15/17 10:10/15/17 10:10/15/17 10:24 - Physical Exam General Appearance: Yes: Nourished, Appropriately Dressed, Other (nontoxic and well appearing adult male in no distress who is conversive, humorous, answering appropriately) HEENT: positive: EOMI, BRIE, Normal Voice, Hearing Grossly Normal. negative: Scleral Icterus (R), Scleral Icterus (L), Nasal Congestion Neck: positive: Trachea midline, Supple. negative: Tender, Rigid Respiratory/Chest: positive: Lungs Clear, Normal Breath Sounds. negative: Respiratory Distress, Crackles, Rhonchi, Stridor, Wheezing Cardiovascular: positive: Regular Rhythm, Regular Rate, S1, S2, Edema (3+ LLE and 2+ RLE). negative: Murmur Gastrointestinal/Abdominal: positive: Normal Bowel Sounds, Soft, Protuberent. negative: Tender, Organomegaly, Pulsatile Mass, Guarding Musculoskeletal: positive: Normal Inspection. negative: Decreased Range of Motion, Vertebral Tenderness Extremity: positive: Normal Capillary Refill, Normal Inspection, Normal Range of Motion, Swelling (L>R). negative: Tender, Cyanosis, Erythema Integumentary: positive: Normal Color, Dry, Warm, Other (dry scaling skin BLE). negative: Erythema, Rash, Bruising Neurologic: positive: piercer operator II-XII NML intact (grossly), Fully Oriented, Alert, Normal Mood/Affect, Normal Response, Motor Strength 5/5. negative: Facial Droop , Numbness, Sensory Deficit, Confused, Disoriented ED Treatment Course - LABORATORY CBC & Chemistry Diagram: 10/15/17 14:55 10/15/17 14:55 Medical Decision Making - Medical Decision Making 10/15/17 11:12 Adult male Pt p/w urinary retention, LLE increased chronic swelling, in the setting of running out of his normal Plavix, Norvasc, and Flomax. Initial Vital Signs Temp Pulse Resp BP Pulse Ox 98.8 F 101 H 20 123/65 99 10/15/17 10:24 10/15/17 10:24 10/15/17 10:24 10/15/17 10:24 10/15/17 10:24 Exam: Well appearing, no abdominal TTP, no CVA ttp, RLE with 3+ pitting edema and scaling dry skin which appears similar to the patient's prior examinations by myself in prior visits. DDX IBNLT: exacerbation of BPH d/t medication nonadherence, renal colic, obstructive uropathy, UTI/pyelonephritis, diverticulitis wwo abscess or perforation, colitis, appendicitis, AAA/AD, testicular torsion, epididymitis, orchitis, urethritis, hernia, malignancy, pancreatitis, gastritis, PUD, ACS, SBO , bowel ischemia, bowel perforation, cholecystitis, musculoskeletal, constipation, etc. W/U ordered: CBCD CMP UA UCx US TX ordered: None CT Spiral: NADP. Duplex Venous: No e/o DVT Duplex Arterial: Left popliteal occlusion (seen also on study from 12/2016). Laboratory Tests 10/15/17 10/15/17 10/15/17 14:44 14:55 14:55 WBC 5.3 RBC 3.14 L Hgb 9.8 L Hct 29.3 L MCV 93.3 MCH 31.2 MCHC 33.5 RDW 15.6 Plt Count 216 D MPV 7.9 Absolute Neuts (auto) 3.5 Neutrophils % 65.7 Lymphocytes % 16.4 D Monocytes % 9.3 Eosinophils % 7.4 H Basophils % 1.2 Nucleated RBC % 0 PT with INR INR PTT (Actin FS) Sodium 141 Potassium 5.3 H Chloride 108 H Carbon Dioxide 26 Anion Gap 7 L BUN 43 H D Creatinine 2.2 H D Creat Clearance w eGFR 30.79 Random Glucose 115 H D Calcium 8.4 L Total Bilirubin 0.2 D AST 14 L ALT 18 D Alkaline Phosphatase 98 Total Protein 6.8 Albumin 3.1 L Lipase 181 Urine Color Ltyellow Urine Appearance Clear Urine pH 5.0 Ur Specific [place] 1.015 Urine Protein 3+ H Urine Glucose (UA) 1+ H Urine Ketones Negative Urine Blood Negative Urine Nitrite Negative Urine Bilirubin Negative Urine Urobilinogen Negative Ur Leukocyte Esterase Negative Urine WBC (Auto) 2 Urine RBC (Auto) 4 Urine Bacteria Rare Hyaline Casts 3 10/15/17 14:55 WBC RBC Hgb Hct MCV MCH MCHC RDW Plt Count MPV Absolute Neuts (auto) Neutrophils % Lymphocytes % Monocytes % Eosinophils % Basophils % Nucleated RBC % PT with INR 12.60 INR 1.12 PTT (Actin FS) 27.0 Sodium Potassium Chloride Carbon Dioxide Anion Gap BUN Creatinine Creat Clearance w eGFR Random Glucose Calcium Total Bilirubin AST ALT Alkaline Phosphatase Total Protein Albumin Lipase Urine Color Urine Appearance Urine pH Ur Specific [place] Urine Protein Urine Glucose (UA) Urine Ketones Urine Blood Urine Nitrite Urine Bilirubin Urine Urobilinogen Ur Leukocyte Esterase Urine WBC (Auto) Urine RBC (Auto) Urine Bacteria Hyaline Casts On reassessment: Patient reports improved discomfort and feels comfortable going home. Vital Signs Temperature 98.7 F 10/15/17 15:00 Pulse Rate 90 10/15/17 15:00 Respiratory Rate 20 10/15/17 15:00 Blood Pressure 190/104 10/15/17 15:00 O2 Sat by Pulse Oximetry (%) 99 10/15/17 15:00 The Pt has gotten significant relief of symptoms. Workup is not concerning for emergency-level pathology at this time. His Duplex studies show old changes and no DVT. His PVR is minimal and bladder appears decompressed. The Pt is appropriate for discharge with close outpatient follow up. They are comfortable with this plan and will follow up with their PCP in 1-3 days. Specific return precautions are discussed and they will come back to the ER if necessary. E-Rx is written for 30 day supplies of his regular medications. *DC/Admit/Observation/Transfer Diagnosis at time of Disposition: Nonadherence to medical treatment, Leg edema, left BPH (benign prostatic hyperplasia) Qualifiers: Lower urinary tract symptom presence: unspecified whether lower urinary tract symptoms present Qualified Code(s): N40.0 - Benign prostatic hyperplasia without lower urinary tract symptoms CKD (chronic kidney disease) Qualifiers: Chronic kidney disease stage: unspecified stage Qualified Code(s): N18.9 - Chronic kidney disease, unspecified - Discharge Dispostion Disposition: HOME Condition at time of disposition: Stable Decision to Admit order: No - Prescriptions Prescriptions: Amlodipine Besylate [Norvasc -] 5 mg PO DAILY #30 tablet Atorvastatin Ca [Lipitor] 20 mg PO HS #30 tablet Clopidogrel Bisulfate [Plavix -] 75 mg PO DAILY #30 tablet Furosemide [Lasix -] 40 mg PO DAILY #90 tablet Glipizide [Glipizide ER] 5 mg PO DAILY #30 tab.er.24 Tamsulosin HCl [Flomax -] 0.8 mg PO DAILY@0830 #30 tab - Referrals Referrals: Ariadna Huizar MD [Primary Care Provider] - [facility] [place] [Provider Group] - Patient Instructions Additional Instructions: You were seen in the ER for a medication refill. We gave you your normal doses of the medications you have run out of, and we wrote prescriptions for one refill of each medication you ran out of, which were sent electronically to your pharmacy. After our assessment, we do not believe you are having a medical emergency at this time, and we believe you are safe to go home. Please follow up with Dr. Huizar in 1-3 days. Call their clinic as soon as possible, tell them you were seen in the ER, and tell them you need an appointment and that you have been running out of your normal medications. If you have insurance issues and need a new PCP that will see you, we have provided additional referral information in this packet. You need to have a PCP to prescribe these medications because they are very important to take, and it is dangerous to run out of them. If you have any new or worsening symptoms, please come back to the ER at any time (24 hours a day). If you are having severe or life threatening symptoms, or symptoms that make it unsafe to drive or have someone drive you, please call 911. - Post Discharge Activity
--- NOTE | 2017-10-15 12:52 | PDOC ---
Attending Attestation - HPI HPI: Patient is a 57 M, with PMHx of CAD s/p stents, HTN, CKD, PAD, HLD, NIDDM, BPH, COPD, Chronic Venous Stasis Ulcers LE, Chronic Anemia., who presents with 3-4 days of urinary retention. Patient states that his insurance recently change and he has been unable to see his primary or obtain his medication (Norvasc, plavix or flomax) for the past 3 weeks. He comes in today with LLQ pain and urinary retention. Patient states that it feels like he has to pee but only drips come out. He states that it is very painful when he tries to urinate but he denies any burning. He also notes 2 days of LLE swelling, more than his usual swelling. Social Hx: Current smoker PCP: Bhupendra Rosenthal 10/15/17 12:55 <Mayela Oquendo - Last Filed: 10/15/17 12:55> - Resident Resident Name: Gabriela Baez - ED Attending Attestation I have performed the following: I have examined & evaluated the patient, The case was reviewed & discussed with the resident, I agree w/resident's findings & plan, Exceptions are as noted - HPI HPI: 10/15/17 12:50 57-year-old male with history of coronary disease status post stents, hypertension, chronic kidney disease, peripheral artery disease, diabetes, BPH, peripheral vascular disease, anemia presents with difficulty urinating. The patient reports that he ran his medications several weeks ago reportedly secondary to insurance issues. Stated he has not been taking the medications. The last several days he's been having difficulty urinating and some for urinary retention. Denies dysuria or urinary frequency. Denies fevers or chills. Does report some intermittent lower abdominal discomfort but denies abdominal pain now. Patient also instantly complains of several days of increasing left lower extremity edema. Patient does have a chronic history of edema left lower extremity. Denies any new pains. Came into the ED for further management. - Physicial Exam PE: 10/15/17 12:50 GENERAL: Awake, alert, and fully oriented, in no acute distress. HEAD: No signs of trauma EYES:EOMI, sclera anicteric, conjunctiva clear ENT: Auricles normal inspection, hearing grossly normal, nares patent NECK: Normal ROM, supple ABDOMEN: Soft, nontender. No guarding, no rebound. No masses EXTREMITIES: Normal range of motion, + bilateral lower extremity edema. 3+ LLE, 2+ RLE (reportedly chronic). mary sign negative. NEUROLOGICAL: Cranial nerves II through XII grossly intact. Normal speech SKIN: Warm, Dry, normal turgor, no rashes or lesions noted. - Medical Decision Making 10/15/17 12:51 Vital Signs Temp Pulse Resp BP Pulse Ox 98.8 F 101 H 20 123/65 99 10/15/17 10:24 10/15/17 10:24 10/15/17 10:24 10/15/17 10:24 10/15/17 10:24 57-year-old male presents with urinary retention/hesitance. We'll need to rule out urinary obstruction secondary to BPH. However, we'll need to check for acute on chronic renal disease. Patient does have some mild left flank tenderness. We'll obtain a spiral CT to evaluate. We'll obtain a duplex of left lower extremity though I suspect this is likely his chronic lymphedema. 10/15/17 17:09 CAT scan demonstrates bilateral nonobstructing calculi. Bilateral renal cysts. Bilateral renal vascular calcifications. Urinary bladder is unremarkable. Prostate is unremarkable. Duplex shows no DVT. Artery duplex shows: left superficial femoral and popliteral arteries are occluded. Left sided bypass graft patent. (Hx left femoral bypass) Compared to prior studies, appears to be chronic from Dec 2016. CBC, BMP 10/15/17 14:55 10/15/17 14:55 CMP Sodium 141 mmol/L (136-145) 10/15/17 14:55 Potassium 5.3 mmol/L (3.5-5.1) H 10/15/17 14:55 Chloride 108 mmol/L (98-107) H 10/15/17 14:55 Carbon Dioxide 26 mmol/L (21-32) 10/15/17 14:55 Anion Gap 7 (8-16) L 10/15/17 14:55 BUN 43 mg/dL (7-18) H D 10/15/17 14:55 Creatinine 2.2 mg/dL (0.7-1.3) H D 10/15/17 14:55 Creat Clearance w eGFR 30.79 (>60) 10/15/17 14:55 Random Glucose 115 mg/dL (74-106) H D 10/15/17 14:55 Calcium 8.4 mg/dL (8.5-10.1) L 10/15/17 14:55 Total Bilirubin 0.2 mg/dL (0.2-1.0) D 10/15/17 14:55 AST 14 U/L (15-37) L 10/15/17 14:55 ALT 18 U/L (12-78) D 10/15/17 14:55 Alkaline Phosphatase 98 U/L (45-117) 10/15/17 14:55 Total Protein 6.8 g/dl (6.4-8.2) 10/15/17 14:55 Albumin 3.1 g/dl (3.4-5.0) L 10/15/17 14:55 Lipase 181 U/L (73-393) 10/15/17 14:55 Urine Test Results Urine Color Ltyellow 10/15/17 14:44 Urine Appearance Clear 10/15/17 14:44 Urine pH 5.0 (5.0-8.0) 10/15/17 14:44 Ur Specific [place] 1.015 (1.001-1.035) 10/15/17 14:44 Urine Protein 3+ (NEGATIVE) H 10/15/17 14:44 Urine Glucose (UA) 1+ (NEGATIVE) H 10/15/17 14:44 Urine Ketones Negative (NEGATIVE) 10/15/17 14:44 Urine Blood Negative (NEGATIVE) 10/15/17 14:44 Urine Nitrite Negative (NEGATIVE) 10/15/17 14:44 Urine Bilirubin Negative (<2.0 mg/dL) 10/15/17 14:44 Ur Leukocyte Esterase Negative (NEGATIVE) 10/15/17 14:44 Urine Bacteria Rare /hpf (NONE SEEN) 10/15/17 14:44 Will touch base with patient's PMD regarding these findings. If these are old findings (which is likely the situation), the patient can be discharged. He currently has no symptoms at this time. Will d/c with refill with his prescriptions. Unclear what the etiology of his symptoms were at this time, but patient is continuing to urinate without difficulty. <Max Joyner - Last Filed: 10/15/17 17:14>
[2017-10-15 15:03] VITALS: BP 190/104; PULSE 90; TEMP 98.7
[2017-10-15 15:10] LABS: BASO % 1.2 % (0-2.0); EOS % 7.4 % (0-4.5); HEMATOCRIT 29.3 % (35.4-49); HEMOGLOBIN 9.8 GM/dL (11.7-16.9); LYMPH % 16.4 % (8-40); MCH 31.2 pg (25.7-33.7); MCHC 33.5 g/dl (32.0-35.9); MEAN CELL VOLUME 93.3 fl (80-96); MEAN PLT VOLUME 7.9 fl (7.5-11.1); MONO % 9.3 % (3.8-10.2); NEUT % 65.7 % (42.8-82.8); PLATELET COUNT 216 K/MM3 (134-434); RBC 3.14 M/mm3 (4.00-5.60); RDW 15.6 % (11.9-15.9); WHITE BLOOD COUNT 5.3 K/mm3 (4.0-10.0)
[2017-10-15 15:19] LABS: INR 1.12 (0.82-1.09); PROTHROMBIN TIME (PATIENT) 12.6 SEC (9.7-13.0)
[2017-10-15 15:33] LABS: URINE APPEARANCE CLEAR; URINE BILIRUBIN NEGATIVE (<2.0 mg/dL); URINE COLOR LTYELLOW; URINE GLUCOSE (UA) 1+ (NEGATIVE); URINE KETONE NEGATIVE (NEGATIVE); URINE LEUK ESTERASE NEGATIVE (NEGATIVE); URINE NITRITE NEGATIVE (NEGATIVE); URINE UROBILINOGEN NEGATIVE mg/dL (0.2-1.0)
[2017-10-15 15:50] LABS: URINE PROTEIN 3+ (NEGATIVE)
[2017-10-15 15:51] LABS: URINE BACTERIA RARE /hpf (NONE SEEN); URINE HYALINE CAST 3 /lpf
[2017-10-15 16:45] LABS: ALBUMIN 3.1 g/dl (3.4-5.0); ALK PHOS 98 U/L (45-117); ANION GAP 7 (8-16); BILIRUBIN,TOTAL 0.2 mg/dL (0.2-1.0); BLOOD UREA NITROGEN 43 mg/dL (7-18); CALCIUM 8.4 mg/dL (8.5-10.1); CHLORIDE 108 mmol/L (98-107); CO2 26 mmol/L (21-32); CREATININE 2.2 mg/dL (0.7-1.3); GLUCOSE,RANDOM 115 mg/dL (74-106); LIPASE 181 U/L (73-393); POTASSIUM 5.3 mmol/L (3.5-5.1); SGOT/AST 14 U/L (15-37); SGPT/ALT 18 U/L (12-78); SODIUM 141 mmol/L (136-145); TOT PROT 6.8 g/dl (6.4-8.2)
== END 2017-10-15 18:14 | disposition home or self-care (01) ==
LOC: JER 10:14
DX: R60.0 Localized edema (principal); N40.1 Benign prostatic hyperplasia with lower urinary tract symptoms; R33.8 Other retention of urine; Z91.14 Patient's other noncompliance with medication regimen; I25.10 Atherosclerotic heart disease of native coronary artery without angina pectoris; I13.10 Hypertensive heart and chronic kidney disease without heart failure, with stage 1 through stage 4 chronic kidney disease, or unspecified chronic kidney disease; N18.9 Chronic kidney disease, unspecified; F17.210 Nicotine dependence, cigarettes, uncomplicated; Z95.5 Presence of coronary angioplasty implant and graft; I73.9 Peripheral vascular disease, unspecified; E11.9 Type 2 diabetes mellitus without complications; Z79.84 Long term (current) use of oral hypoglycemic drugs; J44.9 Chronic obstructive pulmonary disease, unspecified; D64.9 Anemia, unspecified; I69.854 Hemiplegia and hemiparesis following other cerebrovascular disease affecting left non-dominant side; Z79.01 Long term (current) use of anticoagulants; Z79.82 Long term (current) use of aspirin; I83.009 Varicose veins of unspecified lower extremity with ulcer of unspecified site
CPT/HCPCS: 36415; 74176; 80053; 81003; 81015; 83690; 85025; 85610; 85730; 87086; 93926-TC; 93971-TC; 99281-25

== ENCOUNTER 2018-01-01 | Emergency (ER) | payer OTHER ==
--- NOTE | 2018-01-01 00:45 | PDOC ---
History of Present Illness - General History Source: Patient Exam Limitations: No Limitations - History of Present Illness Initial Comments: 01/01/18 02:04 The patient is a 57 year old male, with a significant past medical history of CAD with stents, HTN, CVA (left side weakness), HLD, CKD, diabetes, who presents to the ED complaining of dizziness, weakness, lower extremity swelling bilaterally and pale appearing onset today. He also reports that he has been having diarrhea for the past 8 days, brown stools, 5-6 times a day and nausea associated with his chief complaint. He notes that he does take Lasix and his lower extremities are usually swollen. The patient denies chest pain, shortness of breath, headache, fever, chills, vomiting, or constipation. Denies dysuria, frequency, urgency and hematuria. Allergies: NKDA, peanuts Past surgical history: bypass both legs Social History: No alcohol, tobacco or drug use reported PMD: Dr. Ariadna Huizar Tax Clerk: Dr. Brasher <Nolan Pool - Last Filed: 01/01/18 02:04> <Eloina Mak - Last Filed: 01/01/18 07:09> - General Stated Complaint: WEAKNESS Time Seen by Provider: 01/01/18 00:45 Past History <Nolan Pool - Last Filed: 01/01/18 02:04> - Past Medical History Anemia: No Asthma: No Cancer: No Cardiac Disorders: Yes (stent x 2) CVA: Yes (2009, 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) COPD: No CHF: No Dementia: No Diabetes: Yes GI Disorders: No Disorders: No HTN: Yes Hypercholesterolemia: Yes Liver Disease: No Seizures: No Thyroid Disease: No - Surgical History Abdominal Surgery: No Appendectomy: No Cardiac Surgery: Yes (STENTS X2) Cholecystectomy: No Lung Surgery: No Neurologic Surgery: No Orthopedic Surgery: No - Immunization History Immunization Up to Date: Yes - Suicide/Smoking/Psychosocial Hx Smoking Status: Yes Smoking History: Former smoker Have you smoked in the past 12 months: Yes Number of Cigarettes Smoked Daily: 3 If you are a former smoker, when did you quit?: 09/2016 Cigars Per Day: 0 'Breaking Loose' booklet given: 06/01/17 Hx Alcohol Use: No Drug/Substance Use Hx: No Substance Use Type: None Hx Substance Use Treatment: No <Eloina Mak - Last Filed: 01/01/18 07:09> - Past Medical History Allergies/Adverse Reactions: Allergies Allergy/AdvReac Type Severity Reaction Status Date / Time No Known Drug Allergies Allergy Verified 01/01/18 02:36 Home Medications: Ambulatory Orders Acetaminophen [Tylenol .Regular Strength -] 650 mg PO Q6H PRN tablet 09/18/17 Aspirin [ASA -] 81 mg PO DAILY tab.chew 09/18/17 Amlodipine Besylate [Norvasc -] 5 mg PO DAILY #30 tablet 10/15/17 Atorvastatin Ca [Lipitor] 20 mg PO HS #30 tablet 10/15/17 Clopidogrel Bisulfate [Plavix -] 75 mg PO DAILY #30 tablet 10/15/17 Furosemide [Lasix -] 40 mg PO DAILY #90 tablet 10/15/17 Glipizide [Glipizide ER] 5 mg PO DAILY #30 tab.er.24 10/15/17 Tamsulosin HCl [Flomax -] 0.8 mg PO DAILY@0830 #30 tab 10/15/17 Review of Systems - Review of Systems Able to Perform ROS?: Yes Comments:: 01/01/18 02:05 GENERAL/CONSTITUTIONAL: (+) Weakness. Pale appearing. No fever or chills. HEAD, EYES, EARS, NOSE AND THROAT: No change in vision. No ear pain or discharge. No sore throat. GASTROINTESTINAL: No nausea, vomiting, diarrhea or constipation. GENITOURINARY: No dysuria, frequency, or change in urination. CARDIOVASCULAR: No chest pain or shortness of breath. RESPIRATORY: No cough, wheezing, or hemoptysis. MUSCULOSKELETAL: (+) Lower extremity swelling bilaterally. No joint or muscle swelling or pain. No neck or back pain. SKIN: No rash NEUROLOGIC: (+) Dizziness. No headache, loss of consciousness, or change in strength/sensation. ENDOCRINE: No increased thirst. No abnormal weight change. HEMATOLOGIC/LYMPHATIC: No anemia, easy bleeding, or history of blood clots. ALLERGIC/IMMUNOLOGIC: No hives or skin allergy. <Nolan Pool - Last Filed: 01/01/18 02:04> *Physical Exam - Vital Signs Last Vital Signs Temp Pulse Resp BP Pulse Ox 98.2 F 76 20 125/53 98 01/01/18 01:21 01/01/18 01:21 01/01/18 01:21 01/01/18 01:21 01/01/18 01:21 - Physical Exam Comments: 01/01/18 02:06 Constitutional: Awake, alert, oriented. No acute distress. Head: Normocephalic. Atraumatic Eyes: PERRL. EOMI. Conjunctivae are not pale. ENT: Mucous membranes are moist and intact. Posterior pharynx without exudates or erythema. Uvula midline. Neck: Supple. Full ROM. No lymphadenopathy. Cardiovascular: Regular rate. Regular rhythm. S1, S2 regular. Distal pulses are 2+ and symmetric. Pulmonary/Chest: No evidence of respiratory distress. Clear to auscultation bilaterally No wheezing, rales or rhonchi. Abdominal: Soft and non-distended. There is no tenderness. No rebound, guarding or rigidity. No organomegaly. No palpable masses. Good bowel sounds. Back: No CVA tenderness. Musculoskeletal: No edema. No cyanosis. No clubbing. Full range of motion in all extremities. Nocalf tenderness. Radial/pedal pulses are intact and 2+ bilaterally Skin: Skin is warm and dry. No petechiae. No purpura. Neurological: Alert and oriented to person, place, and time. Cranial nerves II -XII are grossly intact. Normal speech. . No sensory deficits. (+) 3/5 strength in upper and lower extremity on the left side. Psychiatric: Good eye contact. Normal interaction, affect and behavior. <Nolan Pool - Last Filed: 01/01/18 02:04> ED Treatment Course - LABORATORY CBC & Chemistry Diagram: 01/01/18 05:45 01/01/18 05:45 <Eloina Mak - Last Filed: 01/01/18 07:09> Medical Decision Making - Medical Decision Making 01/01/18 04:46 Patient Name: FINA ZHOU THIS IS A PRELIMINARY REPORT FROM [facility] [employer] DATE OF SERVICE: 2018-01-01 03:11:48 IMAGES: 152 EXAM: HEAD CT WITHOUT CONTRAST HISTORY: Near syncope and dizziness COMPARISON: None. FINDINGS: The ventricular system is midline and nondilated. There is mild cortical atrophy and small vessel ischemic disease, slightly advanced for the patient's age. There is no bleed, mass, extra-axial fluid collection or mass effect. No skull fracture or skull lesion is identified. The visualized paranasal sinuses and mastoid air cells are clear. IMPRESSION: No evidence of acute pathology. 01/01/18 06:43 Pt will be signed out to the day ER team. We are awaiting sonogram bilateral extremities. <Eloina Mak - Last Filed: 01/01/18 07:09> *DC/Admit/Observation/Transfer - Attestations Scribe Attestion: 01/01/18 02:06 Documentation prepared by Nolan Pool, acting as medical reception for Eloina Mak MD <Nolan Pool - Last Filed: 01/01/18 02:04> - Discharge Dispostion Decision to Admit order: Yes <Eloina Mak - Last Filed: 01/01/18 07:09> Diagnosis at time of Disposition: Leg swelling, Weakness - Discharge Dispostion Condition at time of disposition: Guarded
[2018-01-01 02:41] VITALS: BMI 35.4
[2018-01-01 05:56] LABS: BASO % 0.9 % (0-2.0); EOS % 5.1 % (0-4.5); HEMATOCRIT 24.6 % (35.4-49); HEMOGLOBIN 8.4 GM/dL (11.7-16.9); LYMPH % 17.2 % (8-40); MCHC 34.3 g/dl (32.0-35.9); MEAN CELL VOLUME 93.4 fl (80-96); MONO % 9.9 % (3.8-10.2); NEUT % 66.9 % (42.8-82.8); PLATELET COUNT 227 K/MM3 (134-434); RBC 2.63 M/mm3 (4.00-5.60); RDW 14.4 % (11.9-15.9); WHITE BLOOD COUNT 6.2 K/mm3 (4.0-10.0)
[2018-01-01 05:58] LABS: URINE APPEARANCE CLEAR; URINE BILIRUBIN NEGATIVE (<2.0 mg/dL); URINE COLOR STRAW; URINE GLUCOSE (UA) NEGATIVE (NEGATIVE); URINE KETONE NEGATIVE (NEGATIVE); URINE LEUK ESTERASE NEGATIVE (NEGATIVE); URINE NITRITE NEGATIVE (NEGATIVE); URINE UROBILINOGEN NEGATIVE mg/dL (0.2-1.0)
[2018-01-01 06:11] LABS: INR 1.21 (0.83-1.09); PROTHROMBIN TIME (PATIENT) 13.7 SEC (9.7-13.0)
[2018-01-01 06:13] LABS: URINE PROTEIN 2+ (NEGATIVE)
[2018-01-01 06:14] LABS: COCAINE, UR NEGATIVE ng/ml (CUTOFF=300); EPI CELLS RARE /HPF (FEW); METHADONE, UR NEGATIVE ng/ml (CUTOFF=300); OPIATES, URI NEGATIVE ng/ml (CUTOFF=300); PHENCYCLIDINE,URINE NEGATIVE ng/ml (CUTOFF=25); URINE AMPHETAMINES NEGATIVE ng/ml (CUTOFF=500); URINE BARBITURATES NEGATIVE ng/ml (CUTOFF=200); URINE BENZODIAZEPINES NEGATIVE ng/ml (CUTOFF=200); URINE HYALINE CAST 2 /lpf; URINE MUCUS RARE
[2018-01-01 06:19] LABS: ALBUMIN 3.1 g/dl (3.4-5.0); ANION GAP 7 MMOL/L (8-16); BILIRUBIN,TOTAL 0.3 mg/dL (0.2-1.0); BLOOD UREA NITROGEN 77 mg/dL (7-18); CALCIUM 8.1 mg/dL (8.5-10.1); CHLORIDE 108 mmol/L (98-107); CO2 25 mmol/L (21-32); CREATININE 2.7 mg/dL (0.7-1.3); GLUCOSE,RANDOM 76 mg/dL (74-106); POTASSIUM 4.3 mmol/L (3.5-5.1); SGOT/AST 12 U/L (15-37); SGPT/ALT 14 U/L (12-78); SODIUM 140 mmol/L (136-145); TOT PROT 6.2 g/dl (6.4-8.2)
[2018-01-01 06:22] LABS: ALK PHOS 79 U/L (45-117); N-TERMINAL BNP 794.77 pg/ml (5-125)
[2018-01-01] MEDS ORDERED: SODIUM CHLORIDE 1,000 ML IV ONE (07:12)
--- NOTE | 2018-01-01 09:13 | PDOC ---
*Physical Exam - Vital Signs Last Vital Signs Temp Pulse Resp BP Pulse Ox 97.6 F 73 16 144/68 99 01/01/18 07:12 01/01/18 07:15 01/01/18 07:12 01/01/18 07:12 01/01/18 07:15 ED Treatment Course - LABORATORY CBC & Chemistry Diagram: 01/01/18 05:45 01/01/18 05:45 - ADDITIONAL ORDERS Additional order review: Laboratory Results 01/01/18 01/01/18 01/01/18 05:45 05:45 05:45 PT with INR 13.70 H INR 1.21 H PTT (Actin FS) Sodium 140 Potassium 4.3 Chloride 108 H Carbon Dioxide 25 Anion Gap 7 L BUN 77 H Creatinine 2.7 H Creat Clearance w eGFR 24.31 Random Glucose 76 D Calcium 8.1 L Total Bilirubin 0.3 AST 12 L D ALT 14 D Alkaline Phosphatase 79 Creatine Kinase 168 Creatine Kinase Index 2.6 CK-MB (CK-2) 4.37 H Troponin I 0.03 D B-Natriuretic Peptide 794.77 H Total Protein 6.2 L Albumin 3.1 L Urine Color Straw Urine Appearance Clear Urine pH 5.0 Ur Specific [place] 1.009 Urine Protein 2+ H Urine Glucose (UA) Negative Urine Ketones Negative Urine Blood Negative Urine Nitrite Negative Urine Bilirubin Negative Urine Urobilinogen Negative Ur Leukocyte Esterase Negative Urine WBC (Auto) <1 Urine RBC (Auto) 2 Ur Epithelial Cells Rare Hyaline Casts 2 Urine Mucus Rare Opiates Screen Methadone Screen Barbiturate Screen Phencyclidine Screen Ur Amphetamines Screen MDMA (Ecstasy) Screen Benzodiazepines Screen Cocaine Screen U Marijuana (THC) Screen Alcohol, Quantitative < 5.0 01/01/18 01/01/18 01/01/18 05:45 05:03 05:03 PT with INR Cancelled INR Cancelled PTT (Actin FS) Sodium Cancelled Potassium Cancelled Chloride Cancelled Carbon Dioxide Cancelled Anion Gap Cancelled BUN Cancelled Creatinine Cancelled Creat Clearance w eGFR Cancelled Random Glucose Cancelled Calcium Cancelled Total Bilirubin Cancelled AST Cancelled ALT Cancelled Alkaline Phosphatase Cancelled Creatine Kinase Cancelled Creatine Kinase Index CK-MB (CK-2) Troponin I Cancelled B-Natriuretic Peptide Cancelled Total Protein Cancelled Albumin Cancelled Urine Color Urine Appearance Urine pH Ur Specific [place] Urine Protein Urine Glucose (UA) Urine Ketones Urine Blood Urine Nitrite Urine Bilirubin Urine Urobilinogen Ur Leukocyte Esterase Urine WBC (Auto) Urine RBC (Auto) Ur Epithelial Cells Hyaline Casts Urine Mucus Opiates Screen Negative Methadone Screen Negative Barbiturate Screen Negative Phencyclidine Screen Negative Ur Amphetamines Screen Negative MDMA (Ecstasy) Screen Negative Benzodiazepines Screen Negative Cocaine Screen Negative U Marijuana (THC) Screen Negative Alcohol, Quantitative Cancelled 01/01/18 05:03 PT with INR INR PTT (Actin FS) Cancelled Sodium Potassium Chloride Carbon Dioxide Anion Gap BUN Creatinine Creat Clearance w eGFR Random Glucose Calcium Total Bilirubin AST ALT Alkaline Phosphatase Creatine Kinase Creatine Kinase Index CK-MB (CK-2) Troponin I B-Natriuretic Peptide Total Protein Albumin Urine Color Urine Appearance Urine pH Ur Specific [place] Urine Protein Urine Glucose (UA) Urine Ketones Urine Blood Urine Nitrite Urine Bilirubin Urine Urobilinogen Ur Leukocyte Esterase Urine WBC (Auto) Urine RBC (Auto) Ur Epithelial Cells Hyaline Casts Urine Mucus Opiates Screen Methadone Screen Barbiturate Screen Phencyclidine Screen Ur Amphetamines Screen MDMA (Ecstasy) Screen Benzodiazepines Screen Cocaine Screen U Marijuana (THC) Screen Alcohol, Quantitative 01/01/18 01/01/18 05:45 05:03 RBC 2.63 L Cancelled MCV 93.4 Cancelled MCHC 34.3 Cancelled RDW 14.4 Cancelled MPV 8.0 Cancelled Neutrophils % 66.9 Cancelled Lymphocytes % 17.2 D Cancelled Monocytes % 9.9 Cancelled Eosinophils % 5.1 H Cancelled Basophils % 0.9 Cancelled - Medications Given in the ED: ED Medications Discontinued Medications Generic Name Dose Route Start Last Admin Trade Name Freq PRN Reason Stop Dose Admin Sodium Chloride 1,000 mls @ 1,000 mls/hr 01/01/18 07:12 01/01/18 07:40 Normal Saline - IV 01/01/18 08:11 1,000 mls/hr .Q1H ONE Administration Medical Decision Making - Medical Decision Making 01/01/18 09:13 Pt signed out to me from Dr. Mak approx 7am. pt is a 57y M hx of CAD, htn, cva, hl, ckd, dm, chronic LE edema presents with worsening lower extremity edema. Pt notes he is on lasix BID 40mg with additional 20mg daily (100mg daily in total). pt rehan guo cp, sob, orthopnea, fever/chills. pts labs reviewe d- noted that his Cr is 2.7 (u pfrom hte low 2s which seems to be his baseline earlier this year). Duplex US neg for DVT head CT neg for acute process will discuss with dr. Huizar regarding furthur obs vs outptaient lab fu PMD: Dr. Ariadna Huizar Marine Geologist: Dr. Brasher 01/01/18 09:[address] Huizar agree with mangmenet - requets we decrease his lassix to 40mg BID and have him fu with dr. rogers as outpatient to have his cr rechecked I discussed the physical exam findings, ancillary test results and final diagnoses with the patient. I answered all of the patient's questions. The patient was satisfied with the care received and felt comfortable with the discharge plan and treatment plan. The patient will call their primary care physician within 24 hours to arrange follow-up and will return to the Emergency Department with any new, persistent or worsening symptoms. *DC/Admit/Observation/Transfer Diagnosis at time of Disposition: Leg swelling CKD (chronic kidney disease) Qualifiers: Chronic kidney disease stage: unspecified stage Qualified Code(s): N18.9 - Chronic kidney disease, unspecified - Discharge Dispostion Disposition: HOME Condition at time of disposition: Improved Decision to Admit order: No - Referrals Referrals: Ariadna Huizar MD [Staff Physician] - - Patient Instructions Printed Discharge Instructions: DI for Peripheral Edema -- Bilateral Additional Instructions: Return to the emergency department immediately with ANY new, persistent or worsening symptoms. Change your lasix to 40mg twice daily. You MUST call and follow up with Dr. Huizar in 2-3 days for further evaluation of your symptoms. Results were discussed with you. Please make sure your doctor reviews the results of your emergency evaluation. - Post Discharge Activity
[2018-01-01 10:05] VITALS: BP 129/65; PULSE 75; TEMP 98.1
--- NOTE | 2018-01-01 13:20 | EKG ---
Test Reason : Blood Pressure : / mmHG Vent. Rate : 069 BPM Atrial Rate : 069 BPM P-R Int : 192 ms QRS Dur : 146 ms QT Int : 440 ms P-R-T Axes : 059 -61 050 degrees QTc Int : 471 ms NORMAL SINUS RHYTHM RIGHT BUNDLE BRANCH BLOCK LEFT ANTERIOR FASCICULAR BLOCK BIFASCICULAR BLOCK ABNORMAL ECG WHEN COMPARED WITH ECG OF 03-NOV-2017 02:11, NO SIGNIFICANT CHANGE WAS FOUND Confirmed by JACKI RAMOS MD ([id number]) on 01/01/2018 1:20:08 PM Referred By: Confirmed By:JACKI RAMOS MD
== END 2018-01-01 10:05 | disposition home or self-care (01) ==
LOC: JER
PROC: 3E0337Z Introduction of Electrolytic and Water Balance Substance into Peripheral Vein, Percutaneous Approach (ICD-10-PCS; principal; 2018-01-01)
DX: R60.0 Localized edema (principal); I25.10 Atherosclerotic heart disease of native coronary artery without angina pectoris; I13.10 Hypertensive heart and chronic kidney disease without heart failure, with stage 1 through stage 4 chronic kidney disease, or unspecified chronic kidney disease; N18.9 Chronic kidney disease, unspecified; Z95.5 Presence of coronary angioplasty implant and graft; E11.9 Type 2 diabetes mellitus without complications; E78.5 Hyperlipidemia, unspecified; I69.854 Hemiplegia and hemiparesis following other cerebrovascular disease affecting left non-dominant side
CPT/HCPCS: 36415; 70450-TC; 80053; 80307; 81003; 81015; 82550; 82553; 83880; 84484; 85025; 85610; 93005; 93010; 93970-TC; 96360; 99285-25; J7030

== ENCOUNTER 2018-01-19 01:40 | Inpatient (IN) | payer OTHER ==
--- NOTE | 2018-01-19 02:34 | PDOC ---
History of Present Illness - General Chief Complaint: Lightheaded Stated Complaint: DIZZINESS Time Seen by Provider: 01/19/18 01:55 - History of Present Illness Initial Comments: 01/19/18 02:32 57 year old male with a significant past medical history of CAD with stents ( last one in July), HTN, CVA (left side weakness), HLD, CKD, diabetes who presents with lightheadness and nausea at 10pm while he was watching a show at the [employer]. He reports lightheadedness for the last 4 months intermittently but states that he felt like he was going to pass out today and thus activated 911. He reports 1 week of progressive lower extremity edema particularly his left lower extremity. Denies any recent travel or immobility. He admits that he has not taken for of his medications in the last 4 days including Plavix and Lasix. The patient denies any chest pain or shortness of breath. Denies fevers or chills. Denies headache. Denies vomiting or diarrhea. Denies any new focal weakness or numbness. He reports he has been unable to see his primary care physician Dr. Huizar due to insurance issues. Past History - Past Medical History Allergies/Adverse Reactions: Allergies Allergy/AdvReac Type Severity Reaction Status Date / Time No Known Drug Allergies Allergy Verified 01/01/18 02:36 Home Medications: Ambulatory Orders Acetaminophen [Tylenol .Regular Strength -] 650 mg PO Q6H PRN tablet 09/18/17 Aspirin [ASA -] 81 mg PO DAILY tab.chew 09/18/17 Amlodipine Besylate [Norvasc -] 5 mg PO DAILY #30 tablet 10/15/17 Atorvastatin Ca [Lipitor] 20 mg PO HS #30 tablet 10/15/17 Clopidogrel Bisulfate [Plavix -] 75 mg PO DAILY #30 tablet 10/15/17 Furosemide [Lasix -] 40 mg PO DAILY #90 tablet 10/15/17 Glipizide [Glipizide ER] 5 mg PO DAILY #30 tab.er.24 10/15/17 Tamsulosin HCl [Flomax -] 0.8 mg PO DAILY@0830 #30 tab 10/15/17 Anemia: No Asthma: No Cancer: No Cardiac Disorders: Yes (stent x 2) CVA: Yes (2009, 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) COPD: No CHF: No Dementia: No Diabetes: Yes GI Disorders: No Disorders: No HTN: Yes Hypercholesterolemia: Yes Liver Disease: No Seizures: No Thyroid Disease: No - Surgical History Abdominal Surgery: No Appendectomy: No Cardiac Surgery: Yes (STENTS X2) Cholecystectomy: No Lung Surgery: No Neurologic Surgery: No Orthopedic Surgery: No - Immunization History Immunization Up to Date: Yes - Suicide/Smoking/Psychosocial Hx Smoking Status: Yes Smoking History: Current every day smoker Have you smoked in the past 12 months: Yes Number of Cigarettes Smoked Daily: 2 If you are a former smoker, when did you quit?: 09/2016 Cigars Per Day: 0 Information on smoking cessation initiated: No 'Breaking Loose' booklet given: 06/01/17 Hx Alcohol Use: No Drug/Substance Use Hx: No Substance Use Type: None Hx Substance Use Treatment: No Review of Systems - Review of Systems Comments:: 01/19/18 06:41 GENERAL/CONSTITUTIONAL: No fever or chills. No weakness. +lightheadness HEAD, EYES, EARS, NOSE AND THROAT: No change in vision. No ear pain or discharge. No sore throat. GASTROINTESTINAL: +nausea, no vomiting, diarrhea or constipation. GENITOURINARY: No dysuria, frequency, or change in urination. CARDIOVASCULAR: No chest pain or shortness of breath. RESPIRATORY: No cough, wheezing, or hemoptysis. MUSCULOSKELETAL: No joint or muscle swelling or pain. No neck or back pain. +LE edema SKIN: No rash NEUROLOGIC: No headache, vertigo, loss of consciousness, or change in strength/ sensation. ENDOCRINE: No increased thirst. No abnormal weight change. HEMATOLOGIC/LYMPHATIC: No anemia, easy bleeding, or history of blood clots. ALLERGIC/IMMUNOLOGIC: No hives or skin allergy. *Physical Exam - Vital Signs Last Vital Signs Temp Pulse Resp BP Pulse Ox 98.6 F 87 17 141/65 100 01/19/18 01:45 01/19/18 01:45 01/19/18 01:45 01/19/18 01:45 01/19/18 01:45 - Physical Exam Comments: 01/19/18 06:42 GENERAL: Awake, alert, and fully oriented, in no acute distress HEAD: No signs of trauma EYES: Sclera anicteric, conjunctiva clear ENT: Moist mucosa LUNGS: Breath sounds equal, clear to auscultation bilaterally. No wheezes, and no crackles HEART: Regular rate and rhythm, normal S1 and S2, no murmurs, rubs or gallops ABDOMEN: Soft, nontender, normoactive bowel sounds. No guarding, no rebound. No masses EXTREMITIES: L>R LE pitting edema to the proximal calves. +calf tenderness b/l. No open wounds NEUROLOGICAL: Normal speech, cranial nerves intact SKIN: Warm, Dry, normal turgor, no rashes or lesions noted. Heart Score/ECG Review #1 01/19/18 06:45 Twelve-lead EKG was performed and reviewed by me. Normal sinus rhythm, rate 81. Left axis deviation. Bifascicular block. Compared to EKG from 01/01/2018, no significant change. ED Treatment Course - LABORATORY CBC & Chemistry Diagram: 01/19/18 03:42 01/19/18 03:42 Medical Decision Making - Medical Decision Making 01/19/18 06:10 57-year-old male with a history of coronary artery disease status post stents ( most recently in July), CVA with residual left-sided weakness, hypertension, hyperlipidemia, CHF presents emergency Department with progressive lightheadedness for 4 months and increasing left greater than right lower extremity swelling. Vitals unremarkable. Exam with asymmetric pitting edema to the lower extremities. Patient notably has not taken his Plavix and Lasix and 4 days as he ran out and has been unable to refill his medications due to insurance issues. It's possible that his lightheadedness represents an anginal equivalent especially due to Plavix noncompliance. Patient will also need lower extremity venous ultrasound to rule out DVT in AM given progressive asymmetric swelling. In light of this, pt admitted for tele obs. Case discussed with JAMISON James, admitted under Dr. Crocker. Case discussed in detail with admitting physician including history, physical exam and ancillary studies. Admitting physician has assumed care for the patient, will follow all pending diagnostics and will complete the evaluation and treatment. *DC/Admit/Observation/Transfer Diagnosis at time of Disposition: Lightheadedness, Leg edema Diagnosis at time of Disposition: (Ruled Out): Foreign body in foot - Discharge Dispostion Condition at time of disposition: Stable Decision to Admit order: Yes - Referrals - Patient Instructions - Post Discharge Activity - Attestations Physician Attestion: 01/19/18 06:17 I, Dr. Kianna Mg MD, attest that this document has been prepared under my direction and personally reviewed by me in its entirety. I further attest, that it accurately reflects all work, treatment, procedures and medical decision -making performed by me.
[2018-01-19] MEDS ORDERED: FUROSEMIDE 40 MG/4 ML INJECTABLE VIAL IVPUSH ONE (02:58)
[2018-01-19] MEDS ORDERED: FUROSEMIDE 40 MG/4 ML INJECTABLE VIAL ONE (03:34)
[2018-01-19 04:00] LABS: BASO % 0.9 % (0-2.0); EOS % 3.6 % (0-4.5); HEMATOCRIT 25.9 % (35.4-49); HEMOGLOBIN 8.9 GM/dL (11.7-16.9); LYMPH % 12.8 % (8-40); MCH 32.5 pg (25.7-33.7); MCHC 34.5 g/dl (32.0-35.9); MEAN CELL VOLUME 94.2 fl (80-96); MEAN PLT VOLUME 8.6 fl (7.5-11.1); MONO % 7.6 % (3.8-10.2); NEUT % 75.1 % (42.8-82.8); PLATELET COUNT 255 K/MM3 (134-434); RBC 2.75 M/mm3 (4.00-5.60); WHITE BLOOD COUNT 7.6 K/mm3 (4.0-10.0)
[2018-01-19 04:10] LABS: URINE APPEARANCE CLEAR; URINE BILIRUBIN NEGATIVE (<2.0 mg/dL); URINE COLOR STRAW; URINE GLUCOSE (UA) 1+ (NEGATIVE); URINE KETONE NEGATIVE (NEGATIVE); URINE LEUK ESTERASE NEGATIVE (NEGATIVE); URINE NITRITE NEGATIVE (NEGATIVE); URINE UROBILINOGEN NEGATIVE mg/dL (0.2-1.0)
[2018-01-19 04:13] LABS: URINE PROTEIN 3+ (NEGATIVE)
[2018-01-19 04:15] LABS: EPI CELLS RARE /HPF (FEW); URINE MUCUS RARE
[2018-01-19 04:58] LABS: ALK PHOS 90 U/L (45-117); ANION GAP 4 MMOL/L (8-16); BILIRUBIN,TOTAL 0.3 mg/dL (0.2-1); BLOOD UREA NITROGEN 63 mg/dL (7-18); CALCIUM 8.2 mg/dL (8.5-10.1); CHLORIDE 113 mmol/L (98-107); CO2 24 mmol/L (21-32); CREATININE 2.1 mg/dL (0.55-1.3); GLUCOSE,RANDOM 122 mg/dL (74-106); MAGNESIUM 2.1 mg/dL (1.8-2.4); SGOT/AST 33 U/L (15-37); SGPT/ALT 15 U/L (13-61); SODIUM 140 mmol/L (136-145); TOT PROT 6.6 g/dl (6.4-8.2)
[2018-01-19 05:09] LABS: POTASSIUM 5.6 mmol/L (3.5-5.1)
[2018-01-19] MEDS ORDERED: CLOPIDOGREL BISULFATE 75 MG TABLET (FP) PO ONE (06:09)
[2018-01-19] MEDS ORDERED: CLOPIDOGREL BISULFATE 75 MG TABLET (FP) ONE (06:32)
[2018-01-19] MEDS: INSULIN SLIDING SCALE (NOVOLOG) 1 VIAL SQ SCH ×4 (07:35→21:53)
--- NOTE | 2018-01-19 08:07 | EKG ---
Test Reason : Blood Pressure : / mmHG Vent. Rate : 081 BPM Atrial Rate : 081 BPM P-R Int : 180 ms QRS Dur : 144 ms QT Int : 412 ms P-R-T Axes : 062 -62 050 degrees QTc Int : 478 ms NORMAL SINUS RHYTHM POSSIBLE LEFT ATRIAL ENLARGEMENT RIGHT BUNDLE BRANCH BLOCK LEFT ANTERIOR FASCICULAR BLOCK BIFASCICULAR BLOCK ABNORMAL ECG WHEN COMPARED WITH ECG OF 01-JAN-2018 02:00, NO SIGNIFICANT CHANGE WAS FOUND Confirmed by EDIS HUANG MD ([id number]) on 01/19/2018 8:06:45 AM Referred By: Confirmed By:EDIS HUANG MD
--- NOTE | 2018-01-19 08:55 | PN ---
Progress Note, Physician Chief Complaint: Well known to me from prior admissions and multiple hospitalizations: PMH: CAD s/p multivessel PCI, most recently LCX at [facility] in July 2017 LICA stenosis 80% PAD s/p b/l LE bypass (b/l) DM CKD w/ baseline creat of around 2 Chronic diastolic CHF Anemia History of Present Illness: 57 y/o M with PMH CHF (50% EF 07/2017), CAD, HTN, CVA (8 y/a with LUE/LLE weakness), DM, anemia, severe PAD (s/p b/l bypass) COPD who now presents with nausea and dizziness since last evening and LLE edema >> right. Denies chest pain, SOB above baseline. Denies Palpitations, PND, orthopnea. No fevers , chills or infectious symptoms. - Current Medication List Current Medications: Active Medications Amlodipine Besylate (Norvasc -) 5 mg PO DAILY TONYA Aspirin (Asa -) 81 mg PO DAILY TONYA Atorvastatin Calcium (Lipitor -) 20 mg PO HS TONYA Insulin Aspart (Novolog Vial Sliding Scale -) 1 vial SQ ACHS [facility]; Protocol Last Admin: 01/19/18 07:35 Dose: Not Given - Objective Vital Signs: Vital Signs Temperature 98.3 F 01/19/18 08:02 Pulse Rate 84 01/19/18 08:02 Respiratory Rate 18 01/19/18 08:02 Blood Pressure 164/68 01/19/18 08:02 O2 Sat by Pulse Oximetry (%) 100 01/19/18 08:02 Constitutional: Yes: No Distress, Calm Eyes: Yes: Conjunctiva Clear Cardiovascular: Yes: Regular Rate and Rhythm Respiratory: Yes: CTA Bilaterally (no wheezing rales or rhonchi) Gastrointestinal: Yes: Soft (non-tender) Edema: Yes Edema: LLE: 3+, RLE: 2+ Neurological: Yes: Alert, Oriented Labs: CBC, BMP 01/19/18 03:42 01/19/18 03:42 Laboratory Tests 01/19/18 03:42 Troponin I 0.03 - ....Imaging Chest X-ray: Image Reviewed (no clear infiltrates) EKG: Image Reviewed (NSR 81bpm. LAHB. RBBB. LAE) Assessment/Plan IMP: CAD s/p multivessel PCI, most recently LCX at [facility] in July 2017 LICA stenosis 80% PAD s/p b/l LE bypass (b/l) DM CKD w/ baseline creat of around 2 Chronic diastolic CHF Anemia Now presenting with dizziness, nausea and asymmetric LE edema REC: 1. CT head, r/o CVA; recommend Neuro evaluation 2. Repeat carotid US. 3. Telemetry to r/o higher grade AV block- has bifascicular block on ECG. 4. Optimize BP: goal < 140/90 (JNC 8). Caution with AV nodeal blockers ( bifascicular block) 5. High intensity statin: 40-80mg of Atorvastatin or Crestor 20mg. 6. Echo for EF assessment. 7. LE venous duplex, r/o DVT.
[2018-01-19] MEDS: amLODIPine BESYLATE 5 MG TABLET (FP) PO SCH (10:42)
[2018-01-19] MEDS: ASPIRIN 81 MG CHEWABLE TABLETS PO SCH (10:42)
--- NOTE | 2018-01-19 11:20 | ECHO ---
Name: FINA ZHOU Exam:Adult Echocardiogram Study Date: 01/19/2018 09:50 AM Age: 57 yrs Reason For Study: CAD DIZINESS Height: 63 in Weight: 200 lb BSA: 1.9 m2 MMode/2D Measurements & Calculations IVSd: 0.87 cm Ao root diam: 2.8 cm LVIDd: 5.6 cm LA dimension: 3.6 cm LVIDs: 4.0 cm LVPWd: 0.81 cm EDV(Teich): 153.0 ml ESV(Teich): 69.2 ml Doppler Measurements & Calculations MV E max josh: 88.4 cm/sec MR max josh: 509.5 cm/sec MV A max josh: 124.9 cm/sec MR max P.9 mmHg MV E/A: 0.71 PI end-d josh: 52.4 cm/sec Med Peak E' Josh: 4.5 cm/sec Med E/e': 19.6 Lat Peak E' Josh: 5.8 cm/sec Lat E/e': 15.1 Left Ventricle Left ventricular systolic function is normal. Ejection Fraction = 50-55%. The transmitral spectral Do ppler flow pattern is suggestive of impaired LV relaxation. There is posterolateral wall mild hypokinesis. Right Ventricle The right ventricle is grossly normal size. The right ventricular systolic function is grossly normal . Atria The left atrium is borderline dilated. Mitral Valve There is severe mitral annular calcification. There is no mitral valve stenosis. There is mild mitral regurgitation. Tricuspid Valve The tricuspid valve is not well visualized, but is grossly normal. There is mild tricuspid regurgitat ion. Aortic Valve There is mild aortic sclerosis.;. No hemodynamically significant valvular aortic stenosis. No aortic regurgitation is present. Pulmonic Valve The pulmonic valve is not well seen, but is grossly normal. There is no pulmonic valvular stenosis. M ild pulmonic valvular regurgitation. Great Vessels The aortic root is normal size. Pericardium/Pleura There is no pericardial effusion. Interpretation Summary Left ventricular systolic function is normal. Ejection Fraction = 50-55%. There is posterolateral wall mild hypokinesis. The transmitral spectral Doppler flow pattern is suggestive of impaired LV relaxation. The right ventricle is grossly normal size. The right ventricular systolic function is grossly normal. There is severe mitral annular calcification. There is mild mitral regurgitation. There is mild tricuspid regurgitation. There is mild aortic sclerosis.; Mild pulmonic valvular regurgitation. There is no pericardial effusion. MD Bryce Brasher 01/19/2018 11:20 AM
[2018-01-19] MEDS ORDERED: SODIUM POLYSTYRENE SULFONATE 15 GM/60 ML BOTTLE PO ONE (12:15)
--- NOTE | 2018-01-19 12:16 | HP ---
Admitting History and Physical - Primary Care Physician PCP: Ariadna Huizar - Admission History of Present Illness: pt seen/ examined chart reviewed known to me recent multiple admissions non compliant In summary 57 year old male with a significant past medical history of CAD with stents ( last one in July), HTN, CVA (left side weakness), HLD, CKD, diabetes who presents with lightheadness and nausea at 10pm while he was watching a show at the [employer]. He reports lightheadedness for the last 4 months intermittently but states that he felt like he was going to pass out today and thus activated 911. He reports 1 week of progressive lower extremity edema particularly his left lower extremity. Denies any recent travel or immobility. He admits that he has not taken for of his medications in the last 4 days including Plavix and Lasix. The patient denies any chest pain or shortness of breath. Denies fevers or chills. Denies headache. Denies vomiting or diarrhea. Denies any new focal weakness or numbness. 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: Yes: CVA, Peripheral Neuropathy, Other (arterial insufficiency s/p left fem -tibial bypass- 2013, rt fem-pop bypass- 2017) Cardiovascular: Yes: CAD, CHF, HTN, Hyperlipdemia, Other (PAD) Pulmonary: Yes: COPD Renal/: Yes: Renal Inusuff Heme/Onc: Yes: Anemia Psych: Yes: Anxiety Endocrine: Yes: Diabetes Mellitus - Past Surgical History Past Surgical History: Yes: Bypass, Stent - Smoking History Smoking history: Current every day smoker Have you smoked in the past 12 months: Yes Aproximately how many cigarettes per day: 2 If you are a former smoker, when did you quit?: 09/2016 - Alcohol/Substance Use Hx Alcohol Use: No History of Substance Use: reports: None - Social History ADL: Independent 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 History of Recent Travel: No Home Medications - Allergies Allergies/Adverse Reactions: Allergies Allergy/AdvReac Type Severity Reaction Status Date / Time No Known Drug Allergies Allergy Verified 01/01/18 02:36 - Home Medications Home Medications: Ambulatory Orders Acetaminophen [Tylenol .Regular Strength -] 650 mg PO Q6H PRN tablet 09/18/17 Aspirin [ASA -] 81 mg PO DAILY tab.chew 09/18/17 Amlodipine Besylate [Norvasc -] 5 mg PO DAILY #30 tablet 10/15/17 Atorvastatin Ca [Lipitor] 20 mg PO HS #30 tablet 10/15/17 Clopidogrel Bisulfate [Plavix -] 75 mg PO DAILY #30 tablet 10/15/17 Furosemide [Lasix -] 40 mg PO DAILY #90 tablet 10/15/17 Glipizide [Glipizide ER] 5 mg PO DAILY #30 tab.er.24 10/15/17 Tamsulosin HCl [Flomax -] 0.8 mg PO DAILY@0830 #30 tab 10/15/17 Family Disease History - Family Disease History Family Disease History: Other: Father ( 62: lung ca), Mother ( 72: colon cancer), Sister (1, healthy) Review of Systems Unable to obtain ROS, reason: see [employer] [employer] [facility] [place] Physical Examination Vital Signs: Vital Signs Temperature 98.3 F 01/19/18 08:02 Pulse Rate 84 01/19/18 08:02 Respiratory Rate 18 01/19/18 08:02 Blood Pressure 164/68 01/19/18 08:02 O2 Sat by Pulse Oximetry (%) 100 01/19/18 08:02 Constitutional: Yes: No Distress, Calm Eyes: Yes: Conjunctiva Clear Neck: Yes: Supple Cardiovascular: Yes: Regular Rate and Rhythm Respiratory: Yes: Diminished Gastrointestinal: Yes: Soft Edema: LLE: 1+, RLE: 1+ Neurological: Yes: Alert Psychiatric: Yes: Alert Labs: CBC, BMP 01/19/18 03:42 01/19/18 03:42 Imaging - Results Chest X-ray: Report Reviewed Ultrasound: Pending Problem List - Problems (1) Dizziness Code(s): R42 - DIZZINESS AND GIDDINESS (2) PVD (peripheral vascular disease) Code(s): I73.9 - PERIPHERAL VASCULAR DISEASE, UNSPECIFIED (3) CAD (coronary artery disease) Code(s): I25.10 - ATHSCL HEART DISEASE OF [place] CORONARY ARTERY W/O ANG PCTRS (4) Anemia Code(s): D64.9 - ANEMIA, UNSPECIFIED (5) CKD (chronic kidney disease) Code(s): N18.9 - CHRONIC KIDNEY DISEASE, UNSPECIFIED Assessment/Plan discussed multiple issues compliance smoking cessation counselling u/s carotid u/s - r/o dvet meds reviewed ahnna/ lasix/b kwame added f/u labs neurology consult cardiology consult noted physical therapy will follow
[2018-01-19] MEDS: CARVEDILOL 6.25 MG TABLET (FP) PO SCH ×2 (13:42→21:50)
[2018-01-19] MEDS: ENALAPRIL MALEATE 5 MG TABLET (FP) PO SCH (13:42)
[2018-01-19 16:48] LABS: ANION GAP 6 MMOL/L (8-16); BLOOD UREA NITROGEN 59 mg/dL (7-18); CALCIUM 8.4 mg/dL (8.5-10.1); CHLORIDE 110 mmol/L (98-107); CO2 26 mmol/L (21-32); CREATININE 1.8 mg/dL (0.55-1.3); GLUCOSE,RANDOM 176 mg/dL (74-106); POTASSIUM 4.7 mmol/L (3.5-5.1); SODIUM 142 mmol/L (136-145)
--- NOTE | 2018-01-19 17:18 | CON.NEURO ---
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, Peripheral Neuropathy, Other (arterial insufficiency s/p left fem -tibial bypass- 2014, rt fem-pop bypass- 2017) Cardio/Vascular: Yes: CAD, CHF, HTN, Hyperlipdemia, Other (PAD) Pulmonary: Yes: COPD Renal/: Yes: Renal Inusuff Psych: Yes: Anxiety Endocrine: Yes: Diabetes Mellitus - Past Surgical History Past Surgical History: Yes: Bypass, Stent - Alcohol/Substance Use Hx Alcohol Use: No History of Substance Use: reports: None - Smoking History Smoking history: Current every day smoker Have you smoked in the past 12 months: Yes Aproximately how many cigarettes per day: 2 If you are a former smoker, when did you quit?: 09/2016 - Social History ADL: Independent 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 History of Recent Travel: No Home Medications - Allergies Allergies/Adverse Reactions: Allergies Allergy/AdvReac Type Severity Reaction Status Date / Time No Known Drug Allergies Allergy Verified 01/01/18 02:36 - Home Medications Home Medications: Ambulatory Orders Acetaminophen [Tylenol .Regular Strength -] 650 mg PO Q6H PRN tablet 09/18/17 Aspirin [ASA -] 81 mg PO DAILY tab.chew 09/18/17 Amlodipine Besylate [Norvasc -] 5 mg PO DAILY #30 tablet 10/15/17 Atorvastatin Ca [Lipitor] 20 mg PO HS #30 tablet 10/15/17 Clopidogrel Bisulfate [Plavix -] 75 mg PO DAILY #30 tablet 10/15/17 Furosemide [Lasix -] 40 mg PO DAILY #90 tablet 10/15/17 Glipizide [Glipizide ER] 5 mg PO DAILY #30 tab.er.24 10/15/17 Tamsulosin HCl [Flomax -] 0.8 mg PO DAILY@0830 #30 tab 10/15/17 Family Disease History - Family Disease History Family Disease History: Other: Father ( 62: lung ca), Mother ( 72: colon cancer), Sister (1, healthy) Physical Exam-Neuro Vital Signs: Vital Signs Temperature 98.3 F 01/19/18 08:02 Pulse Rate 84 01/19/18 08:02 Respiratory Rate 18 01/19/18 08:02 Blood Pressure 164/68 01/19/18 08:02 O2 Sat by Pulse Oximetry (%) 100 01/19/18 08:02 Labs: CBC, BMP 01/19/18 03:42 01/19/18 15:40 Assessment/Plan cc Episode of dizzines and left critical stenosis HPI 57 year old male hsitory of cad, htn, stroke with left sided hemiparesis, ckd, hld and diabetes. He has episode of dizziness, and he says he missed his medication. NOw he is feeling better. Ct of head did not show any acute findings. He did have carotid ultrasound and it showed right sided completel blockage and left sided 99 percent stenosis. Patient has been seeing Dr Grossman as outpatient and had bipass surgery done for both his legs. He did not follow up with pmd due to some insurance issues. PMH as above PSH,ROS,FH is as above. Allergies/Adverse Reactions: Allergies Allergy/AdvReac Type Severity Reaction Status Date / Time No Known Drug Allergies Allergy Verified 01/01/18 02:36 Home Medications: Acetaminophen [Tylenol .Regular Strength -] 650 mg PO Q6H PRN tablet 09/18/17 Aspirin [ASA -] 81 mg PO DAILY tab.chew 09/18/17 Amlodipine Besylate [Norvasc -] 5 mg PO DAILY #30 tablet 10/15/17 Atorvastatin Ca [Lipitor] 20 mg PO HS #30 tablet 10/15/17 Clopidogrel Bisulfate [Plavix -] 75 mg PO DAILY #30 tablet 10/15/17 Furosemide [Lasix -] 40 mg PO DAILY #90 tablet 10/15/17 Glipizide [Glipizide ER] 5 mg PO DAILY #30 tab.er.24 10/15/17 Tamsulosin HCl [Flomax -] 0.8 mg PO DAILY@0830 #30 tab 10/15/17 Neurological Examination Alert oriented x 3,speech is normal eomi, pupils reactive, no face asymmetry left arm is grade 4- and left lower extremity is grade [address] head reviewed no acute findings carotid ultrasound right sided complete occlusion and left side 99% stenosis Assessment- 1Dizziness, could be nonspecific vs cardiovascualr and now symptoms are resolved, and now back to baseline 2. right sided complete occlusion and left sided critical stenosis Plan- patient is on crestor and aspirin and statin, continue current medication - Sugggest to see Dr Grossman for left critical stenosis, he may need ct angio and wait to order till patient see vascular surgery. If he is surgery candidate than only he would require ct angio, as he has renal failure and he may need dialysis after Iv Contrast. Thanking you so much Teja Lucero MD Thanking you so much
--- NOTE | 2018-01-19 21:13 | CONSULT ---
Consult - History of Present Illness History of Present Illness: 57 year old man well known with chronic right ICA occlusion and worsening stenosis of left ICA. He was evaluated in June and was being evaluated for left carotid surgery when he was lost to follow-up. He has had no evidence for CVA by history or brain CT but was admitted with nausea and worsening of chronic leg edema. He is generally non-compliant with recommendations for leg elevation and use of support hose. 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, Peripheral Neuropathy, Other (arterial insufficiency s/p left fem -tibial bypass- 2013, rt fem-pop bypass- 2016) Cardio/Vascular: Yes: CAD, CHF, HTN, Hyperlipdemia, Other (PAD) Pulmonary: Yes: COPD Renal/: Yes: Renal Inusuff Psych: Yes: Anxiety Endocrine: Yes: Diabetes Mellitus - Past Surgical History Past Surgical History: Yes: Bypass, Stent - Alcohol/Substance Use Hx Alcohol Use: No History of Substance Use: reports: None - Smoking History Smoking history: Current every day smoker Have you smoked in the past 12 months: Yes Aproximately how many cigarettes per day: 2 If you are a former smoker, when did you quit?: 09/2016 - Social History ADL: Independent 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 History of Recent Travel: No Home Medications - Allergies Allergies/Adverse Reactions: Allergies Allergy/AdvReac Type Severity Reaction Status Date / Time No Known Drug Allergies Allergy Verified 01/01/18 02:36 - Home Medications Home Medications: Ambulatory Orders Acetaminophen [Tylenol .Regular Strength -] 650 mg PO Q6H PRN tablet 09/18/17 Aspirin [ASA -] 81 mg PO DAILY tab.chew 09/18/17 Amlodipine Besylate [Norvasc -] 5 mg PO DAILY #30 tablet 10/15/17 Atorvastatin Ca [Lipitor] 20 mg PO HS #30 tablet 10/15/17 Clopidogrel Bisulfate [Plavix -] 75 mg PO DAILY #30 tablet 10/15/17 Furosemide [Lasix -] 40 mg PO DAILY #90 tablet 10/15/17 Glipizide [Glipizide ER] 5 mg PO DAILY #30 tab.er.24 10/15/17 Tamsulosin HCl [Flomax -] 0.8 mg PO DAILY@0830 #30 tab 10/15/17 Family Disease History - Family Disease History Family Disease History: Other: Father ( 62: lung ca), Mother ( 72: colon cancer), Sister (1, healthy) Physical Exam Vital Signs: Vital Signs Temperature 98.0 F 01/19/18 17:20 Pulse Rate 78 01/19/18 17:20 Respiratory Rate 18 01/19/18 17:20 Blood Pressure 150/60 01/19/18 17:20 O2 Sat by Pulse Oximetry (%) 100 01/19/18 11:00 Constitutional: Yes: No Distress Eyes: Yes: EOM Intact Neck: Yes: Supple Cardiovascular: Yes: Regular Rate and Rhythm Respiratory: Yes: Regular Gastrointestinal: Yes: Soft Edema: Yes Edema: LLE: 2+, RLE: 2+ Neurological: Yes: Alert, Oriented Labs: CBC, BMP 01/19/18 03:42 01/19/18 15:40 Problem List - Problems (1) Carotid stenosis Assessment/Plan: Carotid Duplex shows more severe stenosis of the left ICA with a contralateral occlusion. As he is not reliable to schedule elective surgery I recommend that after Cardiology clearance a left carotid endarterectomy be planned. I will follow and schedule surgery when cleared. Code(s): I65.29 - OCCLUSION AND STENOSIS OF UNSPECIFIED CAROTID ARTERY Qualifiers: Laterality: bilateral Qualified Code(s): I65.23 - Occlusion and stenosis of bilateral carotid arteries
[2018-01-19] MEDS: HEPARIN NA (PORCINE) 5,000 UNITS/ML 1ML VIAL SQ SCH (21:49)
[2018-01-19] MEDS: ROSUVASTATIN CA 20 MG TABLET (FP) PO SCH (21:49)
[2018-01-19] MEDS ORDERED: ATORVASTATIN CA 20 MG TABLET (FP) PO SCH (22:00)
[2018-01-20 06:18] LABS: BASO % 0.6 % (0-2.0); EOS % 5.4 % (0-4.5); HEMATOCRIT 26.5 % (35.4-49); HEMOGLOBIN 8.8 GM/dL (11.7-16.9); MCH 31.3 pg (25.7-33.7); MCHC 33.3 g/dl (32.0-35.9); MEAN CELL VOLUME 93.9 fl (80-96); MONO % 8.1 % (3.8-10.2); NEUT % 72.9 % (42.8-82.8); PLATELET COUNT 186 K/MM3 (134-434); RBC 2.82 M/mm3 (4.00-5.60); RDW 14.3 % (11.9-15.9)
[2018-01-20] MEDS: INSULIN SLIDING SCALE (NOVOLOG) 1 VIAL SQ SCH ×4 (06:44→21:23)
[2018-01-20 07:23] LABS: ALBUMIN 2.7 g/dl (3.4-5.0); ALK PHOS 85 U/L (45-117); ANION GAP 4 MMOL/L (8-16); BILIRUBIN,TOTAL 0.2 mg/dL (0.2-1); BLOOD UREA NITROGEN 54 mg/dL (7-18); CALCIUM 8.1 mg/dL (8.5-10.1); CHLORIDE 111 mmol/L (98-107); CO2 26 mmol/L (21-32); CREATININE 1.9 mg/dL (0.55-1.3); GLUCOSE,RANDOM 139 mg/dL (74-106); POTASSIUM 5.1 mmol/L (3.5-5.1); SGOT/AST 11 U/L (15-37); SGPT/ALT 12 U/L (13-61); SODIUM 141 mmol/L (136-145); TOT PROT 5.7 g/dl (6.4-8.2)
--- NOTE | 2018-01-20 08:44 | PN ---
Progress Note, Physician Chief Complaint: no complaints no dizziness - Current Medication List Current Medications: Active Medications Amlodipine Besylate (Norvasc -) 5 mg PO DAILY [facility] Last Admin: 01/19/18 10:42 Dose: 5 mg Aspirin (Asa -) 81 mg PO DAILY [facility] Last Admin: 01/19/18 10:42 Dose: 81 mg Carvedilol (Coreg -) 6.25 mg PO BID [facility] Last Admin: 01/19/18 21:50 Dose: 6.25 mg Clopidogrel Bisulfate (Plavix -) 75 mg PO DAILY [facility] Enalapril Maleate (Vasotec -) 5 mg PO DAILY [facility] Last Admin: 01/19/18 13:42 Dose: 5 mg Furosemide (Lasix -) 40 mg PO DAILY [facility] Heparin Sodium (Porcine) (Heparin -) 5,000 unit SQ BID [facility] Last Admin: 01/19/18 21:49 Dose: 5,000 unit Insulin Aspart (Novolog Vial Sliding Scale -) 1 vial SQ [facility]; Protocol Last Admin: 01/20/18 06:44 Dose: 2 units Rosuvastatin Calcium (Crestor -) 20 mg PO HS [facility] Last Admin: 01/19/18 21:49 Dose: 20 mg - Objective Vital Signs: Vital Signs Temperature 98.2 F 01/20/18 05:00 Pulse Rate 79 01/20/18 05:00 Respiratory Rate 18 01/20/18 06:56 Blood Pressure 153/66 01/20/18 05:00 O2 Sat by Pulse Oximetry (%) 97 01/20/18 06:56 Constitutional: Yes: No Distress, Calm Cardiovascular: Yes: Regular Rate and Rhythm Respiratory: Yes: Diminished Gastrointestinal: Yes: Normal Bowel Sounds, Soft, Abdomen, Obese. No: Tenderness Edema: Yes Edema: LLE: 1+, RLE: 1+ Labs: CBC, BMP 01/20/18 05:30 01/20/18 05:30 Problem List - Problems (1) CAD (coronary artery disease) Code(s): I25.10 - ATHSCL HEART DISEASE OF [place] CORONARY ARTERY W/O ANG PCTRS (2) CKD (chronic kidney disease) Code(s): N18.9 - CHRONIC KIDNEY DISEASE, UNSPECIFIED (3) Carotid stenosis Code(s): I65.29 - OCCLUSION AND STENOSIS OF UNSPECIFIED CAROTID ARTERY Qualifiers: Laterality: bilateral Qualified Code(s): I65.23 - Occlusion and stenosis of bilateral carotid arteries (4) Dizziness Code(s): R42 - DIZZINESS AND GIDDINESS (5) PVD (peripheral vascular disease) Code(s): I73.9 - PERIPHERAL VASCULAR DISEASE, UNSPECIFIED Assessment/Plan PLAN Seen by Vascular, Neurology and Cardiology has complete occlusion on right ICA and 99%stenosis of left needs endarcterectomy continue with meds
--- NOTE | 2018-01-20 09:24 | PN ---
Progress Note, Physician History of Present Illness: 57 year old male with hx of CHF (EF 50% 08/16), coronary artery disease status post multivessel PCI with most recent intervention of the left circumflex artery , peripheral artery disease status post bilateral lower extremity bypass, CKD ( baseline Cr 2) and COPD admitted with lightheadedness found to have complete occlusion of the right ICA and 99% L ICA stenosis currently being followed by neurology. Cardiology initially consulted as potential to determine if symptoms were cardiac in nature. Patient currently hemodynamically stable, undergoing potential consideration for intervention of the ICA. No complaints today. Denies any lh, dizziness, chest pain, palpitations, orthopnea, PND or ELIDA. - Current Medication List Current Medications: Active Medications Amlodipine Besylate (Norvasc -) 5 mg PO DAILY [facility] Last Admin: 01/19/18 10:42 Dose: 5 mg Aspirin (Asa -) 81 mg PO DAILY [facility] Last Admin: 01/19/18 10:42 Dose: 81 mg Carvedilol (Coreg -) 6.25 mg PO BID [facility] Last Admin: 01/19/18 21:50 Dose: 6.25 mg Clopidogrel Bisulfate (Plavix -) 75 mg PO DAILY [facility] Enalapril Maleate (Vasotec -) 5 mg PO DAILY [facility] Last Admin: 01/19/18 13:42 Dose: 5 mg Furosemide (Lasix -) 40 mg PO DAILY [facility] Heparin Sodium (Porcine) (Heparin -) 5,000 unit SQ BID [facility] Last Admin: 01/19/18 21:49 Dose: 5,000 unit Insulin Aspart (Novolog Vial Sliding Scale -) 1 vial SQ [facility]; Protocol Last Admin: 01/20/18 06:44 Dose: 2 units Rosuvastatin Calcium (Crestor -) 20 mg PO HS [facility] Last Admin: 01/19/18 21:49 Dose: 20 mg - Objective Vital Signs: Vital Signs Temperature 98.2 F 01/20/18 05:00 Pulse Rate 79 01/20/18 05:00 Respiratory Rate 18 01/20/18 06:56 Blood Pressure 153/66 01/20/18 05:00 O2 Sat by Pulse Oximetry (%) 97 01/20/18 06:56 Constitutional: Yes: No Distress HENT: Yes: Atraumatic, Normocephalic Cardiovascular: Yes: Regular Rate and Rhythm Respiratory: Yes: CTA Bilaterally Gastrointestinal: Yes: Normal Bowel Sounds Extremities: Yes: Other (left lower extremity > right lower extremity with nonpitting edema. LLE mildly erythematous at along barboza.) Labs: CBC, BMP 01/20/18 05:30 01/20/18 05:30 - ....Imaging EKG: Report Reviewed Assessment/Plan 57 year old male with hx of CHF (EF 50% 08/16), coronary artery disease status post GHAZAL to distal LCx (coronary angiogram 08/26/17 LM 30% distal stenosis, LAD mild diffuse disease, LCx 30-50% mid, 90% distal stenosis, and RCA 100% proximal occlusion), peripheral artery disease status post bilateral lower extremity bypass, CKD (baseline Cr 2) and COPD admitted with nausea/vomiting found to have chronic R ICA total occlusion and progressive (99% L ICA) disease - currently undergoing evaluation for potential intervention. #Lightheadedness Etiology: ICA disease Workup: --Echocardiogram 01/19: LVEF 50-55%, mild inferolateral hypokinesis, mild MR, TR , mild aortic sclerosis --ECG: RBBB, LAFB --Telemetry review: no evidence of high degree AVB --Carotid: occuded R ICA, High grade 99% left ICA. Will get CTA/MRI --LE: Duplex- No DVT --CT Head negative for acute intracranial process --troponin negative X2 --cardiac cath 08/16: 2 V CAD- LM 30% distal stenosis, LAD mild diffuse disease, LCx 30-50% mid, 90% distal stenosis, and RCA 100% proximal occlusion s/p sucessful PCI of distal LCx with GHAZAL. Treatment: --no further cardiac workup indicated at this time --appreciate neurology recommendations for blood pressure management (current regimen acceptable from cardiovascular standpoint) #CAD s/p PCI to LCx --continue aspirin 81mg, plavix 75mg, carvedilol 6.25mg BID and enalapril 5mg qday --increase rosuvastatin from 20 to 40mg for aggressive LDL lowering in setting of CAD and progressive ICA disease --please ensure to continue to monitor K+ level and consider discontinuing enalapril if K+ remains >5.0 #Pre-operative evaluation; Patient is high risk (hx of CAD, cardiomyopathy, CKD and DM) with a revised cardiac index score of 6 which correlates with a 11% risk of major cardiac event. Patient with coronary artery disease history status post multi-vessel PCI and recent nuclear stress test in July 2017 with moderate-large area of ischemia in the inferior and adjacent lateral wall with subsequent coronary intervention to the left circumflex artery. Patient with negative cardiac biomarkers, ECG without acute ischemic ST-T changes and recent echocardiogram with LVEF 50-55% with mild inferolateral hypokinesis. No further risk factor modification necessary at this time. No absolute contraindication to moving forward with intervention of ICA if indicated. --continue aspirin and clopidogrel 75mg qday (GHAZAL placed 08/26/17 in setting of unstable angina) --Appreciate neurology recommendations regarding blood pressure management in setting of progressive ICA disease. No cardiac contraindications to allow for permissive hypertension if indicated. We will continue to follow the patient closely with you. Please do not hesitate to reach out to me directly if any questions. Ryan Juarez MD
[2018-01-20] MEDS: ASPIRIN 81 MG CHEWABLE TABLETS PO SCH (09:50)
[2018-01-20] MEDS: FUROSEMIDE 40 MG TABLET (FP) PO SCH (09:50)
[2018-01-20] MEDS: amLODIPine BESYLATE 5 MG TABLET (FP) PO SCH (09:50)
[2018-01-20] MEDS: ENALAPRIL MALEATE 5 MG TABLET (FP) PO SCH (09:51)
[2018-01-20] MEDS: HEPARIN NA (PORCINE) 5,000 UNITS/ML 1ML VIAL SQ SCH ×2 (09:51→21:24)
[2018-01-20] MEDS: CLOPIDOGREL BISULFATE 75 MG TABLET (FP) PO SCH (09:51)
[2018-01-20] MEDS: CARVEDILOL 6.25 MG TABLET (FP) PO SCH ×2 (09:51→21:23)
[2018-01-20] MEDS ORDERED: INSULIN (NOVOLOG) ASPART 100 UNITS/ML 10ML VIAL ONE (11:34)
[2018-01-20] MEDS: ROSUVASTATIN CA 20 MG TABLET (FP) PO SCH (21:24)
[2018-01-21] MEDS: INSULIN SLIDING SCALE (NOVOLOG) 1 VIAL SQ SCH ×3 (06:09→21:48)
[2018-01-21] MEDS: CLOPIDOGREL BISULFATE 75 MG TABLET (FP) PO SCH (09:00)
[2018-01-21] MEDS: ENALAPRIL MALEATE 5 MG TABLET (FP) PO SCH (09:00)
--- NOTE | 2018-01-21 09:28 | PN ---
Progress Note, Physician History of Present Illness: 57 year old male with hx of CHF (EF 50% 08/16), coronary artery disease status post multivessel PCI with most recent intervention of the left circumflex artery , peripheral artery disease status post bilateral lower extremity bypass, CKD ( baseline Cr 2) and COPD admitted with lightheadedness found to have complete occlusion of the right ICA and 99% L ICA stenosis currently being followed by neurology. Cardiology initially consulted as potential to determine if symptoms were cardiac in nature. Patient currently hemodynamically stable, undergoing potential consideration for intervention of the ICA by vascular surgery. No absolute contraindications from cardiovascular perspective. No further modifiable risk factors. No acute overnight events. Again, denies any lh, dizziness, chest pain, palpitations, orthopnea, PND or ELIDA. - Current Medication List Current Medications: Active Medications Amlodipine Besylate (Norvasc -) 5 mg PO DAILY [facility] Last Admin: 01/20/18 09:50 Dose: 5 mg Aspirin (Asa -) 81 mg PO DAILY [facility] Last Admin: 01/20/18 09:50 Dose: 81 mg Carvedilol (Coreg -) 6.25 mg PO BID [facility] Last Admin: 01/20/18 21:23 Dose: 6.25 mg Clopidogrel Bisulfate (Plavix -) 75 mg PO DAILY [facility] Last Admin: 01/20/18 09:51 Dose: 75 mg Enalapril Maleate (Vasotec -) 5 mg PO DAILY [facility] Last Admin: 01/20/18 09:51 Dose: 5 mg Furosemide (Lasix -) 40 mg PO DAILY [facility] Last Admin: 01/20/18 09:50 Dose: 40 mg Heparin Sodium (Porcine) (Heparin -) 5,000 unit SQ BID [facility] Last Admin: 01/20/18 21:24 Dose: 5,000 unit Insulin Aspart (Novolog Vial Sliding Scale -) 1 vial SQ [facility]; Protocol Last Admin: 01/21/18 06:09 Dose: Not Given Rosuvastatin Calcium (Crestor -) 20 mg PO HS [facility] Last Admin: 01/20/18 21:24 Dose: 20 mg - Objective Vital Signs: Vital Signs Temperature 97.6 F 01/21/18 05:12 Pulse Rate 76 01/21/18 05:12 Respiratory Rate 20 01/21/18 06:10 Blood Pressure 146/60 01/21/18 05:12 O2 Sat by Pulse Oximetry (%) 97 01/21/18 06:10 Constitutional: Yes: Well Nourished Neck: Yes: WNL Cardiovascular: Yes: WNL, Regular Rate and Rhythm, S1, S2 Respiratory: Yes: WNL Extremities: Yes: WNL, Other (LLE>RLE 1+ nonpitting edema. LLE erythematous on anterior barboza, stable from yesterday.) Labs: CBC, BMP 01/20/18 05:30 01/20/18 05:30 Assessment/Plan 57 year old male with hx of CHF (EF 50% 08/16), coronary artery disease status post GHAZAL to distal LCx (coronary angiogram 08/26/17 LM 30% distal stenosis, LAD mild diffuse disease, LCx 30-50% mid, 90% distal stenosis, and RCA 100% proximal occlusion), peripheral artery disease status post bilateral lower extremity bypass, CKD (baseline Cr 2) and COPD admitted with nausea/vomiting found to have chronic R ICA total occlusion and progressive (99% L ICA) disease - cardiology consulted for pre-operative evaluation. Patient to undergo high risk surgery (vascular) with a revised cardiac index score of 6 which correlates with a 11% risk of major cardiac event. No further modifiable risk factors. No absolute contraindications to moving forward with surgery. No significant updates in plan since 01/20/18. #Lightheadedness Etiology: ICA disease Workup: --Echocardiogram 01/19: LVEF 50-55%, mild inferolateral hypokinesis, mild MR, TR , mild aortic sclerosis --ECG: RBBB, LAFB --Telemetry review: again no evidence of high degree AVB overnight --Carotid: occuded R ICA, High grade 99% left ICA. --LE: Duplex- No DVT --CT Head negative for acute intracranial process --troponin negative X2 --cardiac cath 08/16: 2 V CAD- LM 30% distal stenosis, LAD mild diffuse disease, LCx 30-50% mid, 90% distal stenosis, and RCA 100% proximal occlusion s/p sucessful PCI of distal LCx with GHAZAL. Treatment: --no further cardiac workup indicated at this time --appreciate neurology recommendations for blood pressure management (current regimen acceptable from cardiovascular standpoint) #CAD s/p PCI to LCx --continue aspirin 81mg, plavix 75mg, carvedilol 6.25mg BID and enalapril 5mg qday --continue rosuvastatin 40mg for aggressive LDL lowering in setting of CAD and progressive ICA disease --please ensure to continue to monitor K+ level and consider discontinuing enalapril if K+ remains >5.0 #Pre-operative evaluation; Patient is high risk (hx of CAD, cardiomyopathy, CKD and DM) with a revised cardiac index score of 6 which correlates with a 11% risk of major cardiac event. Patient with coronary artery disease history status post multi-vessel PCI and recent nuclear stress test in July 2017 with moderate-large area of ischemia in the inferior and adjacent lateral wall with subsequent coronary intervention to the left circumflex artery. Patient with negative cardiac biomarkers, ECG without acute ischemic ST-T changes and recent echocardiogram with LVEF 50-55% with mild inferolateral hypokinesis. No further risk factor modification necessary at this time. No absolute contraindication to moving forward with intervention of ICA if indicated. --continue aspirin and clopidogrel 75mg qday (GHAZAL placed 08/26/17 in setting of unstable angina) --Appreciate neurology recommendations regarding blood pressure management in setting of progressive ICA disease. No cardiac contraindications to allow for permissive hypertension if indicated. Please ensure patient remains on telemetry floor post op. We will continue to follow the patient closely with you. Please do not hesitate to reach out to me directly if any questions. Ryan Juarez MD
[2018-01-21] MEDS: amLODIPine BESYLATE 5 MG TABLET (FP) PO SCH (10:32)
[2018-01-21] MEDS: ASPIRIN 81 MG CHEWABLE TABLETS PO SCH (10:32)
[2018-01-21] MEDS: HEPARIN NA (PORCINE) 5,000 UNITS/ML 1ML VIAL SQ SCH ×2 (10:32→21:48)
[2018-01-21] MEDS: CARVEDILOL 6.25 MG TABLET (FP) PO SCH ×2 (10:32→21:48)
[2018-01-21] MEDS: FUROSEMIDE 40 MG TABLET (FP) PO SCH (10:32)
--- NOTE | 2018-01-21 11:42 | PN ---
Progress Note (short form) - Note Progress Note: Vital Signs - 24 hr lightheaded at times no SOB 01/20/18 01/20/18 01/20/18 14:00 18:00 21:00 Temperature 98.2 F 98.2 F Pulse Rate 74 80 Respiratory 20 20 20 Rate Blood Pressure 123/44 L 122/63 O2 Sat by Pulse 97 Oximetry (%) 01/20/18 01/20/18 01/21/18 22:00 23:00 01:42 Temperature 98.4 F 97.9 F Pulse Rate 66 77 Respiratory 20 20 20 Rate Blood Pressure 126/99 144/62 O2 Sat by Pulse 97 Oximetry (%) 01/21/18 01/21/18 05:12 06:10 Temperature 97.6 F Pulse Rate 76 Respiratory 20 20 Rate Blood Pressure 146/60 O2 Sat by Pulse 97 Oximetry (%) Current Medications Generic Name Dose Route Start Last Admin Trade Name Freq PRN Reason Stop Dose Admin Amlodipine Besylate 5 mg 01/19/18 10:00 01/21/18 10:32 Norvasc - PO 5 mg DAILY [facility] Administration Aspirin 81 mg 01/19/18 10:00 01/21/18 10:32 Asa - PO 81 mg DAILY [facility] Administration Carvedilol 6.25 mg 01/19/18 12:15 01/21/18 10:32 Coreg - PO 6.25 mg BID [facility] Administration Clopidogrel Bisulfate 75 mg 01/20/18 10:00 01/20/18 09:51 Plavix - PO 75 mg DAILY [facility] Administration Enalapril Maleate 5 mg 01/19/18 12:15 01/20/18 09:51 Vasotec - PO 5 mg DAILY [facility] Administration Furosemide 40 mg 01/20/18 10:00 01/21/18 10:32 Lasix - PO 40 mg DAILY [facility] Administration Heparin Sodium (Porcine) 5,000 unit 01/19/18 22:00 01/21/18 10:32 Heparin - SQ 5,000 unit BID [facility] Administration Insulin Aspart 1 vial 01/19/18 07:00 01/21/18 06:09 Novolog Vial Sliding Scale - SQ Not Given ACHS [facility] Protocol Rosuvastatin Calcium 40 mg 01/21/18 22:00 Crestor - PO HS [facility] Laboratory Results - last 24 hr 01/20/18 01/20/18 01/20/18 11:31 16:59 20:51 POC Glucometer 229 115 165 01/21/18 05:32 POC Glucometer 134 Constitutional: Yes: No Distress, Calm Cardiovascular: Yes: Regular Rate and Rhythm Respiratory: Yes: Diminished Gastrointestinal: Yes: Normal Bowel Sounds, Soft, Abdomen, Obese. No: Tenderness Edema: Yes Edema: LLE: 1+, RLE: 1+ Problem List - Problems (1) CAD (coronary artery disease) Code(s): I25.10 - ATHSCL HEART DISEASE OF [place] CORONARY ARTERY W/O ANG PCTRS (2) CKD (chronic kidney disease) Code(s): N18.9 - CHRONIC KIDNEY DISEASE, UNSPECIFIED (3) Carotid stenosis Code(s): I65.29 - OCCLUSION AND STENOSIS OF UNSPECIFIED CAROTID ARTERY Qualifiers: Laterality: bilateral Qualified Code(s): I65.23 - Occlusion and stenosis of bilateral carotid arteries (4) Dizziness Code(s): R42 - DIZZINESS AND GIDDINESS (5) PVD (peripheral vascular disease) Code(s): I73.9 - PERIPHERAL VASCULAR DISEASE, UNSPECIFIED Assessment/Plan PLAN Seen by Vascular, Neurology and Cardiology has complete occlusion on right ICA and 99%stenosis of left needs endarcterectomy renal function about the same medically cleared continue with meds
[2018-01-21] MEDS ORDERED: INSULIN (NOVOLOG) ASPART 100 UNITS/ML 10ML VIAL ONE (21:43)
[2018-01-21] MEDS: ROSUVASTATIN CA 20 MG TABLET (FP) PO SCH (21:48)
[2018-01-22] MEDS: INSULIN SLIDING SCALE (NOVOLOG) 1 VIAL SQ SCH ×4 (06:00→22:37)
[2018-01-22 06:54] LABS: HEMATOCRIT 24.7 % (35.4-49); HEMOGLOBIN 8.5 GM/dL (11.7-16.9); MCHC 34.5 g/dl (32.0-35.9); MEAN CELL VOLUME 92.6 fl (80-96); MEAN PLT VOLUME 8.1 fl (7.5-11.1); PLATELET COUNT 178 K/MM3 (134-434); RBC 2.67 M/mm3 (4.00-5.60); RDW 14.3 % (11.9-15.9); WHITE BLOOD COUNT 5.7 K/mm3 (4.0-10.0)
[2018-01-22 07:17] LABS: ALBUMIN 2.7 g/dl (3.4-5.0); ALK PHOS 83 U/L (45-117); ANION GAP 5 MMOL/L (8-16); BILIRUBIN,TOTAL 0.2 mg/dL (0.2-1); BLOOD UREA NITROGEN 54 mg/dL (7-18); CHLORIDE 110 mmol/L (98-107); CO2 24 mmol/L (21-32); GLUCOSE,RANDOM 104 mg/dL (74-106); POTASSIUM 5.5 mmol/L (3.5-5.1); SGOT/AST 11 U/L (15-37); SGPT/ALT 13 U/L (13-61); SODIUM 139 mmol/L (136-145); TOT PROT 5.7 g/dl (6.4-8.2)
--- NOTE | 2018-01-22 08:40 | PN ---
Progress Note (short form) - Note Progress Note: VSS Exam unchaned, no new neurologic symptoms. I have discussed carotid surgery with Rich and he agrees to proceed. I will schedule for 01/24. Family will call to discuss beforehand. Problem List - Problems (1) Carotid stenosis Code(s): I65.29 - OCCLUSION AND STENOSIS OF UNSPECIFIED CAROTID ARTERY Qualifiers: Laterality: bilateral Qualified Code(s): I65.23 - Occlusion and stenosis of bilateral carotid arteries
--- NOTE | 2018-01-22 08:59 | PN ---
Progress Note, Physician Chief Complaint: TELE: NSR - Current Medication List Current Medications: Active Medications Amlodipine Besylate (Norvasc -) 5 mg PO DAILY [facility] Last Admin: 01/21/18 10:32 Dose: 5 mg Aspirin (Asa -) 81 mg PO DAILY [facility] Last Admin: 01/21/18 10:32 Dose: 81 mg Carvedilol (Coreg -) 6.25 mg PO BID [facility] Last Admin: 01/21/18 21:48 Dose: 6.25 mg Clopidogrel Bisulfate (Plavix -) 75 mg PO DAILY [facility] Last Admin: 01/21/18 09:00 Dose: 75 mg Enalapril Maleate (Vasotec -) 5 mg PO DAILY [facility] Last Admin: 01/21/18 09:00 Dose: 5 mg Furosemide (Lasix -) 40 mg PO DAILY [facility] Last Admin: 01/21/18 10:32 Dose: 40 mg Heparin Sodium (Porcine) (Heparin -) 5,000 unit SQ BID [facility] Last Admin: 01/21/18 21:48 Dose: 5,000 unit Insulin Aspart (Novolog Vial Sliding Scale -) 1 vial SQ [facility]; Protocol Last Admin: 01/22/18 06:00 Dose: Not Given Rosuvastatin Calcium (Crestor -) 40 mg PO HS [facility] Last Admin: 01/21/18 21:48 Dose: 40 mg - Objective Vital Signs: Vital Signs Temperature 98.2 F 01/22/18 05:00 Pulse Rate 75 01/22/18 08:31 Respiratory Rate 18 01/22/18 08:32 Blood Pressure 138/75 01/22/18 08:31 O2 Sat by Pulse Oximetry (%) 97 01/22/18 08:32 Constitutional: Yes: No Distress Cardiovascular: Yes: Regular Rate and Rhythm Respiratory: Yes: CTA Bilaterally Gastrointestinal: Yes: Soft Edema: No Neurological: Yes: Alert, Oriented Labs: CBC, BMP 01/22/18 05:30 01/22/18 05:30 Laboratory Tests 01/22/18 01/22/18 05:30 05:30 WBC 5.7 Hgb 8.5 L Plt Count 178 Sodium 139 Potassium 5.5 H Creatinine 2.0 H - ....Imaging EKG: Image Reviewed Assessment/Plan Assessment/Plan 57 year old male with hx of CHF (EF 50% 08/16), coronary artery disease status post GHAZAL to distal LCx (coronary angiogram 08/26/17 LM 30% distal stenosis, LAD mild diffuse disease, LCx 30-50% mid, 90% distal stenosis, and RCA 100% proximal occlusion), peripheral artery disease status post bilateral lower extremity bypass, CKD (baseline Cr 2) and COPD admitted with nausea/vomiting found to have chronic R ICA total occlusion and progressive (99% L ICA) disease - cardiology consulted for pre-operative evaluation. Patient to undergo high risk surgery (vascular) with a revised cardiac index score of 6 which correlates with a 11% risk of major cardiac event. No further modifiable risk factors. No absolute contraindications to moving forward with surgery. #Lightheadedness Etiology: ICA disease Workup: --Echocardiogram 01/19: LVEF 50-55%, mild inferolateral hypokinesis, mild MR, TR , mild aortic sclerosis --ECG: RBBB, LAFB --Telemetry review: again no evidence of high degree AVB overnight --Carotid: occuded R ICA, High grade 99% left ICA. --LE: Duplex- No DVT --CT Head negative for acute intracranial process --troponin negative X2 --cardiac cath 08/16: 2 V CAD- LM 30% distal stenosis, LAD mild diffuse disease, LCx 30-50% mid, 90% distal stenosis, and RCA 100% proximal occlusion s/p sucessful PCI of distal LCx with GHAZAL. Treatment: --no further cardiac workup indicated at this time #CAD s/p PCI to LCx --continue aspirin 81mg, plavix 75mg, carvedilol 6.25mg BID and enalapril 5mg qday --continue rosuvastatin 40mg for aggressive LDL lowering in setting of CAD and progressive ICA disease --D/C MICHAEL- I due to persistent hyperK #Pre-operative evaluation; Patient is high risk (hx of CAD, cardiomyopathy, CKD and DM) with a revised cardiac index score of 6 which correlates with a 11% risk of major cardiac event. Patient with coronary artery disease history status post multi-vessel PCI and recent nuclear stress test in July 2017 with moderate-large area of ischemia in the inferior and adjacent lateral wall with subsequent coronary intervention to the left circumflex artery. Patient with negative cardiac biomarkers, ECG without acute ischemic ST-T changes and recent echocardiogram with LVEF 50-55% with mild inferolateral hypokinesis. No further risk factor modification necessary at this time. No absolute contraindication to moving forward with intervention of ICA if indicated. --continue aspirin and clopidogrel 75mg qday (GHAZAL placed 08/26/17 in setting of unstable angina) --Appreciate neurology recommendations regarding blood pressure management in setting of progressive ICA disease. No cardiac contraindications to allow for permissive hypertension if indicated. Please ensure patient remains on telemetry floor post op.
[2018-01-22] MEDS ORDERED: SODIUM POLYSTYRENE SULFONATE 15 GM/60 ML BOTTLE PO ONE (10:00)
[2018-01-22] MEDS: CLOPIDOGREL BISULFATE 75 MG TABLET (FP) PO SCH (11:29)
[2018-01-22] MEDS: FUROSEMIDE 40 MG TABLET (FP) PO SCH (11:29)
[2018-01-22] MEDS: HEPARIN NA (PORCINE) 5,000 UNITS/ML 1ML VIAL SQ SCH ×2 (11:29→21:43)
[2018-01-22] MEDS: amLODIPine BESYLATE 5 MG TABLET (FP) PO SCH (11:29)
[2018-01-22] MEDS: ASPIRIN 81 MG CHEWABLE TABLETS PO SCH (11:29)
[2018-01-22] MEDS: CARVEDILOL 6.25 MG TABLET (FP) PO SCH ×2 (11:30→21:43)
[2018-01-22] MEDS ORDERED: INSULIN (NOVOLOG) ASPART 100 UNITS/ML 10ML VIAL ONE ×2 (12:07→17:06)
--- NOTE | 2018-01-22 12:13 | PN ---
Progress Note (short form) - Note Progress Note: Patient seen and examined. chart reviewed all consults noted and appreciated For or on Monday discussed with transplant coordinator also--- Agree with decreasing MICHAEL inhibitor due to hyperkalemia Discussed with patient--patient admits still smokes--- constant provided again chronic in appearance No distress Denies chest pain Vital Signs Temp 98.2 F 01/22/18 05:00 Pulse 75 01/22/18 08:31 Resp 18 01/22/18 08:32 BP 138/75 01/22/18 08:31 Pulse Ox 97 01/22/18 08:32 Intake & Output 01/21/18 01/22/18 01/22/18 23:59 11:59 23:59 Intake Total 150 Output Total 1800 Balance -1800 150 Weight 191 lb 12.8 oz Intake: Oral 150 Output: Urine 1800 Void 1800 Other: Voiding Method Urinal Urinal Weight Measurement Method Standing Scale Active Medications Amlodipine Besylate (Norvasc -) 5 mg PO DAILY [facility] Last Admin: 01/22/18 11:29 Dose: 5 mg Aspirin (Asa -) 81 mg PO DAILY [facility] Last Admin: 01/22/18 11:29 Dose: 81 mg Carvedilol (Coreg -) 6.25 mg PO BID [facility] Last Admin: 01/22/18 11:30 Dose: 6.25 mg Clopidogrel Bisulfate (Plavix -) 75 mg PO DAILY [facility] Last Admin: 01/22/18 11:29 Dose: 75 mg Furosemide (Lasix -) 40 mg PO DAILY [facility] Last Admin: 01/22/18 11:29 Dose: 40 mg Heparin Sodium (Porcine) (Heparin -) 5,000 unit SQ BID [facility] Last Admin: 01/22/18 11:29 Dose: 5,000 unit Insulin Aspart (Novolog Vial Sliding Scale -) 1 vial SQ [facility]; Protocol Last Admin: 01/22/18 12:05 Dose: 4 units Rosuvastatin Calcium (Crestor -) 40 mg PO HS [facility] Last Admin: 01/21/18 21:48 Dose: 40 mg CBC, BMP 01/22/18 05:30 01/22/18 05:30 Physical exam Constitutional: Yes: No Distress, comfortable. Chronic ill appearance Cardiovascular: Yes: Regular Rate and Rhythm Respiratory: Yes: Diminished Gastrointestinal: Yes: Normal Bowel Sounds, Soft, Abdomen, Obese. No: Tenderness Edema: Yes Edema: LLE: 1+, RLE: 1+ Problem List - Problems (1) CAD (coronary artery disease) Code(s): I25.10 - ATHSCL HEART DISEASE OF [place] CORONARY ARTERY W/O ANG PCTRS (2) CKD (chronic kidney disease) Code(s): N18.9 - CHRONIC KIDNEY DISEASE, UNSPECIFIED (3) Carotid stenosis Code(s): I65.29 - OCCLUSION AND STENOSIS OF UNSPECIFIED CAROTID ARTERY Qualifiers: Laterality: bilateral Qualified Code(s): I65.23 - Occlusion and stenosis of bilateral carotid arteries (4) Dizziness Code(s): R42 - DIZZINESS AND GIDDINESS (5) PVD (peripheral vascular disease) Code(s): I73.9 - PERIPHERAL VASCULAR DISEASE, UNSPECIFIED Assessment/Plan 4 or on Monday Seen by Vascular, Neurology and Cardiology has complete occlusion on right ICA and 99%stenosis of left renal function about the same medically stable for proposed procedure continue with meds monitor labs Will follow Discussed with nursing staff Problem List - Problems (1) Dizziness Code(s): R42 - DIZZINESS AND GIDDINESS (2) PVD (peripheral vascular disease) Code(s): I73.9 - PERIPHERAL VASCULAR DISEASE, UNSPECIFIED (3) CAD (coronary artery disease) Code(s): I25.10 - ATHSCL HEART DISEASE OF [place] CORONARY ARTERY W/O ANG PCTRS (4) Anemia Code(s): D64.9 - ANEMIA, UNSPECIFIED (5) CKD (chronic kidney disease) Code(s): N18.9 - CHRONIC KIDNEY DISEASE, UNSPECIFIED
[2018-01-22 14:42] LABS: ALBUMIN 2.8 g/dl (3.4-5.0); ALK PHOS 87 U/L (45-117); ANION GAP 5 MMOL/L (8-16); BILIRUBIN,TOTAL 0.2 mg/dL (0.2-1); BLOOD UREA NITROGEN 53 mg/dL (7-18); CALCIUM 8.1 mg/dL (8.5-10.1); CHLORIDE 111 mmol/L (98-107); CO2 24 mmol/L (21-32); GLUCOSE,RANDOM 148 mg/dL (74-106); POTASSIUM 5.8 mmol/L (3.5-5.1); SGOT/AST 10 U/L (15-37); SGPT/ALT 14 U/L (13-61); SODIUM 140 mmol/L (136-145)
[2018-01-22] MEDS: ROSUVASTATIN CA 20 MG TABLET (FP) PO SCH (21:43)
[2018-01-23] MEDS: INSULIN SLIDING SCALE (NOVOLOG) 1 VIAL SQ SCH ×4 (06:29→21:55)
[2018-01-23 07:03] LABS: BASO % 0.8 % (0-2.0); EOS % 4.7 % (0-4.5); HEMOGLOBIN 8.4 GM/dL (11.7-16.9); LYMPH % 14.5 % (8-40); MCH 31.4 pg (25.7-33.7); MCHC 33.7 g/dl (32.0-35.9); MEAN CELL VOLUME 93.2 fl (80-96); MEAN PLT VOLUME 7.8 fl (7.5-11.1); PLATELET COUNT 174 K/MM3 (134-434); RBC 2.68 M/mm3 (4.00-5.60); WHITE BLOOD COUNT 5.5 K/mm3 (4.0-10.0)
--- NOTE | 2018-01-23 07:33 | SPA.PREOP ---
- PRE-OP NOTE Dx: Carotid stenosis Planned Procedure: Left carotid endarterectomy Surgeon: Milagro Consent: To be Obtained after surgeon has explained all risks, benefits and alternatives. Opportunity for questions. Last Vital Signs Temp Pulse Resp BP Pulse Ox 98.7 F 74 20 138/60 95 01/23/18 06:00 01/23/18 06:00 01/23/18 06:00 01/23/18 06:00 01/22/18 21:00 Lab Results WBC 5.5 K/mm3 (4.0-10.0) 01/23/18 06:20 RBC 2.68 M/mm3 (4.00-5.60) L 01/23/18 06:20 Hgb 8.4 GM/dL (11.7-16.9) L 01/23/18 06:20 Hct 25.0 % (35.4-49) L 01/23/18 06:20 MCV 93.2 fl (80-96) 01/23/18 06:20 MCHC 33.7 g/dl (32.0-35.9) 01/23/18 06:20 RDW 14.0 % (11.9-15.9) 01/23/18 06:20 Plt Count 174 K/MM3 (134-434) 01/23/18 06:20 Sodium 140 mmol/L (136-145) 01/22/18 13:45 Potassium 5.8 mmol/L (3.5-5.1) H 01/22/18 13:45 Chloride 111 mmol/L (98-107) H 01/22/18 13:45 Carbon Dioxide 24 mmol/L (21-32) 01/22/18 13:45 Anion Gap 5 MMOL/L (8-16) L 01/22/18 13:45 BUN 53 mg/dL (7-18) H 01/22/18 13:45 Creatinine 2.0 mg/dL (0.55-1.3) H 01/22/18 13:45 Random Glucose 148 mg/dL (74-106) H 01/22/18 13:45 Calcium 8.1 mg/dL (8.5-10.1) L 01/22/18 13:45 Blood Type O POSITIVE 01/22/18 09:20 Antibody Screen Negative 01/22/18 09:20 Problem List - Problems (1) Carotid stenosis, left Assessment/Plan: Plan for Left Carotid Endarterectomy tomorrow with Dr Humphrey. 1) NPO after midnight except PO meds 2) GI and DVT prophylaxis 3) Medical optimization Code(s): I65.22 - OCCLUSION AND STENOSIS OF LEFT CAROTID ARTERY
--- NOTE | 2018-01-23 08:42 | PN ---
Progress Note, Physician Chief Complaint: seen and examined, no acute distress TELE: NSR. Patient refused Kayexalate yesterday for elevated K+ ; MICHAEL-I discontinued - Current Medication List Current Medications: Active Medications Amlodipine Besylate (Norvasc -) 5 mg PO DAILY [facility] Last Admin: 01/22/18 11:29 Dose: 5 mg Aspirin (Asa -) 81 mg PO DAILY [facility] Last Admin: 01/22/18 11:29 Dose: 81 mg Carvedilol (Coreg -) 6.25 mg PO BID [facility] Last Admin: 01/22/18 21:43 Dose: 6.25 mg Clopidogrel Bisulfate (Plavix -) 75 mg PO DAILY [facility] Last Admin: 01/22/18 11:29 Dose: 75 mg Furosemide (Lasix -) 40 mg PO DAILY [facility] Last Admin: 01/22/18 11:29 Dose: 40 mg Heparin Sodium (Porcine) (Heparin -) 5,000 unit SQ BID [facility] Last Admin: 01/22/18 21:43 Dose: 5,000 unit Insulin Aspart (Novolog Vial Sliding Scale -) 1 vial SQ [facility]; Protocol Last Admin: 01/23/18 06:29 Dose: 2 units Rosuvastatin Calcium (Crestor -) 40 mg PO HS [facility] Last Admin: 01/22/18 21:43 Dose: 40 mg - Objective Vital Signs: Vital Signs Temperature 98.7 F 01/23/18 06:00 Pulse Rate 74 01/23/18 06:00 Respiratory Rate 20 01/23/18 06:00 Blood Pressure 138/60 01/23/18 06:00 O2 Sat by Pulse Oximetry (%) 95 01/22/18 21:00 Constitutional: Yes: No Distress, Calm Eyes: Yes: Conjunctiva Clear Cardiovascular: Yes: Regular Rate and Rhythm Respiratory: Yes: CTA Bilaterally Gastrointestinal: Yes: Soft Edema: Yes Edema: LLE: 1+, RLE: 1+ Neurological: Yes: Alert, Oriented Labs: CBC, BMP 01/23/18 06:20 01/22/18 13:45 Laboratory Tests 01/22/18 01/23/18 13:45 06:20 WBC 5.5 Plt Count 174 Sodium 140 Potassium 5.8 H BUN 53 H Creatinine 2.0 H Assessment/Plan Assessment/Plan 57 year old male with hx of CHF (EF 50% 08/16), coronary artery disease status post GHAZAL to distal LCx (coronary angiogram 08/26/17 LM 30% distal stenosis, LAD mild diffuse disease, LCx 30-50% mid, 90% distal stenosis, and RCA 100% proximal occlusion), peripheral artery disease status post bilateral lower extremity bypass, CKD (baseline Cr 2) and COPD admitted with nausea/vomiting found to have chronic R ICA total occlusion and progressive (99% L ICA) disease - cardiology consulted for pre-operative evaluation. Patient to undergo high risk surgery (vascular) with a revised cardiac index score of 6 which correlates with a 11% risk of major cardiac event. No further modifiable risk factors. No absolute contraindications to moving forward with surgery. #Lightheadedness Etiology: ICA disease Workup: --Echocardiogram 01/19: LVEF 50-55%, mild inferolateral hypokinesis, mild MR, TR , mild aortic sclerosis --ECG: RBBB, LAFB --Telemetry review: no evidence of high degree AVB since admission --Carotid: occuded R ICA, High grade 99% left ICA. --LE: Duplex- No DVT --CT Head negative for acute intracranial process --troponin negative X2 --cardiac cath 08/16: 2 V CAD- LM 30% distal stenosis, LAD mild diffuse disease, LCx 30-50% mid, 90% distal stenosis, and RCA 100% proximal occlusion s/p sucessful PCI of distal LCx with GHAZAL. Treatment: --no further cardiac workup indicated at this time #CAD s/p PCI to LCx --continue aspirin 81mg, plavix 75mg, carvedilol 6.25mg BID and enalapril 5mg qday --continue rosuvastatin 40mg for aggressive LDL lowering in setting of CAD and progressive ICA disease --D/C MICHAEL- I due to persistent hyperK #Pre-operative evaluation; Patient is high risk (hx of CAD, cardiomyopathy, CKD and DM) with a revised cardiac index score of 6 which correlates with a 11% risk of major cardiac event. Patient with coronary artery disease history status post multi-vessel PCI and recent nuclear stress test in July 2017 with moderate-large area of ischemia in the inferior and adjacent lateral wall with subsequent coronary intervention to the left circumflex artery. Patient with negative cardiac biomarkers, ECG without acute ischemic ST-T changes and recent echocardiogram with LVEF 50-55% with mild inferolateral hypokinesis. No further risk factor modification necessary at this time. No absolute contraindication to moving forward with intervention of ICA if indicated. --continue aspirin and clopidogrel 75mg qday (GHAZAL placed 08/26/17 in setting of unstable angina) -- #Hyperkalemia: -Repeat labs today, MICHAEL-I discontinued. Patient refused Kayexalate. Continue tele Please ensure patient remains on telemetry floor post op.
[2018-01-23 09:21] LABS: ANION GAP 5 MMOL/L (8-16); BLOOD UREA NITROGEN 54 mg/dL (7-18); CHLORIDE 110 mmol/L (98-107); CO2 25 mmol/L (21-32); CREATININE 1.9 mg/dL (0.55-1.3); GLUCOSE,RANDOM 115 mg/dL (74-106); POTASSIUM 5.5 mmol/L (3.5-5.1); SODIUM 139 mmol/L (136-145)
[2018-01-23] MEDS: CARVEDILOL 6.25 MG TABLET (FP) PO SCH ×2 (10:23→21:52)
[2018-01-23] MEDS: ASPIRIN 81 MG CHEWABLE TABLETS PO SCH (10:23)
[2018-01-23] MEDS: amLODIPine BESYLATE 5 MG TABLET (FP) PO SCH (10:23)
[2018-01-23] MEDS: FUROSEMIDE 40 MG TABLET (FP) PO SCH (10:23)
[2018-01-23] MEDS: HEPARIN NA (PORCINE) 5,000 UNITS/ML 1ML VIAL SQ SCH ×2 (10:24→21:52)
[2018-01-23] MEDS: CLOPIDOGREL BISULFATE 75 MG TABLET (FP) PO SCH (10:24)
[2018-01-23 13:58] LABS: ANION GAP 5 MMOL/L (8-16); BLOOD UREA NITROGEN 54 mg/dL (7-18); CALCIUM 8.3 mg/dL (8.5-10.1); CHLORIDE 106 mmol/L (98-107); CO2 24 mmol/L (21-32); CREATININE 1.9 mg/dL (0.55-1.3); GLUCOSE,RANDOM 134 mg/dL (74-106); POTASSIUM 5.6 mmol/L (3.5-5.1); SODIUM 136 mmol/L (136-145)
[2018-01-23] MEDS ORDERED: SODIUM POLYSTYRENE SULFONATE 15 GM/60 ML BOTTLE PO ONE (15:45)
[2018-01-23] MEDS: ROSUVASTATIN CA 20 MG TABLET (FP) PO SCH (21:52)
--- NOTE | 2018-01-23 22:06 | PN ---
Progress Note (short form) - Note Progress Note: no complaints feels well refusing Kayexalate Vital Signs - 24 hr 01/23/18 01/23/18 01/23/18 02:00 06:00 09:00 Temperature 98.3 F 98.7 F Pulse Rate 74 74 Respiratory 20 20 Rate Blood Pressure 129/41 L 138/60 O2 Sat by Pulse 95 Oximetry (%) 01/23/18 01/23/18 01/23/18 10:00 14:00 17:00 Temperature 98 F 98.1 F 98.1 F Pulse Rate 76 67 66 Respiratory 18 20 Rate Blood Pressure 148/56 L 157/74 141/71 O2 Sat by Pulse Oximetry (%) Current Medications Generic Name Dose Route Start Last Admin Trade Name Freq PRN Reason Stop Dose Admin Amlodipine Besylate 5 mg 01/19/18 10:00 01/23/18 10:23 Norvasc - PO 5 mg DAILY TONYA Administration Aspirin 81 mg 01/19/18 10:00 01/23/18 10:23 Asa - PO 81 mg DAILY TONYA Administration Carvedilol 6.25 mg 01/19/18 12:15 01/23/18 21:52 Coreg - PO 6.25 mg BID TONYA Administration Clopidogrel Bisulfate 75 mg 01/20/18 10:00 01/23/18 10:24 Plavix - PO 75 mg DAILY TONYA Administration Furosemide 40 mg 01/20/18 10:00 01/23/18 10:23 Lasix - PO 40 mg DAILY TONYA Administration Heparin Sodium (Porcine) 5,000 unit 01/19/18 22:00 01/23/18 21:52 Heparin - SQ Not Given BID [facility] Insulin Aspart 1 vial 01/19/18 07:00 01/23/18 21:55 Novolog Vial Sliding Scale - SQ 2 units ACHS TONYA Administration Protocol Rosuvastatin Calcium 40 mg 01/21/18 22:00 01/23/18 21:52 Crestor - PO 40 mg HS TONYA Administration Laboratory Results - last 24 hr 01/22/18 01/23/18 01/23/18 21:42 05:37 05:38 WBC RBC Hgb Hct MCV MCH MCHC RDW Plt Count MPV Absolute Neuts (auto) Neutrophils % Lymphocytes % Monocytes % Eosinophils % Basophils % Nucleated RBC % Sodium Potassium Chloride Carbon Dioxide Anion Gap BUN Creatinine Creat Clearance w eGFR POC Glucometer 228 169 228 Random Glucose Calcium 01/23/18 01/23/18 01/23/18 06:20 06:20 12:23 WBC 5.5 RBC 2.68 L Hgb 8.4 L Hct 25.0 L MCV 93.2 MCH 31.4 MCHC 33.7 RDW 14.0 Plt Count 174 MPV 7.8 Absolute Neuts (auto) 3.9 Neutrophils % 71.0 Lymphocytes % 14.5 Monocytes % 9.0 Eosinophils % 4.7 H Basophils % 0.8 Nucleated RBC % 0 Sodium 139 Potassium 5.5 H Chloride 110 H Carbon Dioxide 25 Anion Gap 5 L BUN 54 H Creatinine 1.9 H Creat Clearance w eGFR 36.47 POC Glucometer 179 Random Glucose 115 H Calcium 8.0 L 01/23/18 01/23/18 12:55 16:46 WBC RBC Hgb Hct MCV MCH MCHC RDW Plt Count MPV Absolute Neuts (auto) Neutrophils % Lymphocytes % Monocytes % Eosinophils % Basophils % Nucleated RBC % Sodium 136 Potassium 5.6 H Chloride 106 Carbon Dioxide 24 Anion Gap 5 L BUN 54 H Creatinine 1.9 H Creat Clearance w eGFR 36.47 POC Glucometer 194 Random Glucose 134 H Calcium 8.3 L Constitutional: Yes: No Distress, Calm Cardiovascular: Yes: Regular Rate and Rhythm Respiratory: Yes: Diminished Gastrointestinal: Yes: Normal Bowel Sounds, Soft, Abdomen, Obese. No: Tenderness Edema: Yes Edema: LLE: 1+, RLE: 1+ Problem List - Problems (1) CAD (coronary artery disease) Code(s): I25.10 - ATHSCL HEART DISEASE OF [place] CORONARY ARTERY W/O ANG PCTRS (2) CKD (chronic kidney disease) Code(s): N18.9 - CHRONIC KIDNEY DISEASE, UNSPECIFIED (3) Carotid stenosis Code(s): I65.29 - OCCLUSION AND STENOSIS OF UNSPECIFIED CAROTID ARTERY Qualifiers: Laterality: bilateral Qualified Code(s): I65.23 - Occlusion and stenosis of bilateral carotid arteries (4) Dizziness Code(s): R42 - DIZZINESS AND GIDDINESS (5) PVD (peripheral vascular disease) Code(s): I73.9 - PERIPHERAL VASCULAR DISEASE, UNSPECIFIED Assessment/Plan PLAN Seen by Vascular, Neurology and Cardiology has complete occlusion on right ICA and 99%stenosis of left needs endarcterectomy- scheduled tomorrow agreed for Kayexalate-- repeat potassium high renal function about the same medically cleared continue with meds
[2018-01-24 06:53] LABS: ANION GAP 8 MMOL/L (8-16); BLOOD UREA NITROGEN 51 mg/dL (7-18); CHLORIDE 110 mmol/L (98-107); CO2 24 mmol/L (21-32); GLUCOSE,RANDOM 142 mg/dL (74-106); POTASSIUM 5.2 mmol/L (3.5-5.1); SODIUM 142 mmol/L (136-145)
[2018-01-24] MEDS: INSULIN SLIDING SCALE (NOVOLOG) 1 VIAL SQ SCH ×3 (06:54→22:30)
[2018-01-24] MEDS ORDERED: HEPARIN NA (PORCINE) 5,000 UNITS/ML 1ML VIAL ONE ×2 (07:29→10:12)
[2018-01-24] MEDS ORDERED: CEFAZOLIN 2 GM/D5W 2 GM/50 ML ML IVPB ONE (07:34)
[2018-01-24] MEDS ORDERED: fentaNYL CITRATE 250 MCG/5 ML VIAL ONE ×2 (07:54→10:00)
[2018-01-24] MEDS ORDERED: PROPOFOL 20 ML ONE ×2 (07:54)
[2018-01-24] MEDS ORDERED: MIDAZOLAM HCL 2 MG/2 ML SINGLE DOSE VIAL ONE (07:55)
[2018-01-24] MEDS ORDERED: ROCURONIUM BROMIDE 50 MG/5 ML VIAL ONE ×2 (07:55)
[2018-01-24] MEDS ORDERED: LIDOCAINE HCL/PF 2% SDV 5ML VIAL ONE (07:57)
[2018-01-24] MEDS ORDERED: ceFAZolin 2 GRAM PREMIX BAG IVPB ONE (09:15)
[2018-01-24] MEDS ORDERED: DEXAMETHASONE SOD PHOSPHATE 4 MG/1 ML VIAL ONE (09:15)
[2018-01-24] MEDS ORDERED: ceFAZolin SODIUM 1 GM VIAL ONE (09:15)
[2018-01-24] MEDS ORDERED: ePHEDrine SULFATE 50 MG/1 ML AMPULE ONE (09:18)
--- NOTE | 2018-01-24 10:34 | PN ---
Progress Note (short form) - Note Progress Note: pt went for surgery
[2018-01-24] MEDS ORDERED: PROTAMINE SULFATE 50 MG/5 ML VIAL ONE (11:14)
[2018-01-24] MEDS ORDERED: POVIDONE-IODINE OINTMENT 10% - 28.4 GM TUBE ONE (11:23)
[2018-01-24] MEDS ORDERED: POVIDONE-IODINE OINTMENT 10% - 28.4 GM TUBE TP ONE (11:41)
[2018-01-24] MEDS ORDERED: ESMOLOL HCL 100,000 MCG/10 ML VIAL ONE (11:44)
--- NOTE | 2018-01-24 11:52 | OP ---
Operative Note - Note: Operative Date: 01/24/18 Pre-Operative Diagnosis: Left carotid stenosis Operation: Left carotid endarterectomy Findings: Large plaque at left carotid bifurcation with severe stenosis of ICA. Tortuous redundant distal ICA. Implants: Thin Dacron patch Post-Operative Diagnosis: Same as Pre-op Surgeon: Ze Humphrey Helium Arc Welder: Piedad Moreau Anesthesiologist/COMMERCIAL TELLER: Aj Valiente Anesthesia: General Specimens Removed: carotid plaque Estimated Blood Loss (mls): 50
[2018-01-24] MEDS ORDERED: PROMETHAZINE HCL 25 MG/1 ML VIAL IVPUSH PRN (11:59)
[2018-01-24] MEDS: LABETALOL HCL 5 MG/1 ML (100MG/20 ML VIAL) IVPUSH ONE ×3 (11:59→13:15)
[2018-01-24] MEDS ORDERED: LACTATED RINGERS SOLUTION 1,000 ML IV SCH (12:00)
--- NOTE | 2018-01-24 12:05 | SURG ---
Surgery Knocker Off Note Knocker Off: Piedad Moreau PA-C Date of Service: 01/24/18 Diagnosis: Left carotid stenosis Procedure: Left carotid endarterectomy I was present for the entirety of the operative procedure. For further detail, please refer to operative report. Visit type - Case Type Case Type: Scheduled - Emergency Emergency Visit: No - New patient This patient is new to me today: Yes Date on this admission: 01/24/18 - Critical Care Critical Care patient: No
[2018-01-24 12:36] LABS: HEMATOCRIT 26.3 % (35.4-49); HEMOGLOBIN 8.9 GM/dL (11.7-16.9); MCH 31.8 pg (25.7-33.7); MCHC 33.7 g/dl (32.0-35.9); MEAN CELL VOLUME 94.3 fl (80-96); MEAN PLT VOLUME 8.1 fl (7.5-11.1); PLATELET COUNT 189 K/MM3 (134-434); RBC 2.79 M/mm3 (4.00-5.60); RDW 14.5 % (11.9-15.9); WHITE BLOOD COUNT 7.6 K/mm3 (4.0-10.0)
[2018-01-24] MEDS ORDERED: LABETALOL HCL 5 MG/1 ML (100MG/20 ML VIAL) ONE (13:12)
[2018-01-24] MEDS ORDERED: ONDANSETRON 4 MG/2 ML VIAL ONE (13:18)
--- NOTE | 2018-01-24 13:20 | EKG ---
Test Reason : Blood Pressure : / mmHG Vent. Rate : 087 BPM Atrial Rate : 087 BPM P-R Int : 204 ms QRS Dur : 140 ms QT Int : 402 ms P-R-T Axes : 066 -60 053 degrees QTc Int : 483 ms NORMAL SINUS RHYTHM RIGHT BUNDLE BRANCH BLOCK LEFT ANTERIOR FASCICULAR BLOCK BIFASCICULAR BLOCK ABNORMAL ECG WHEN COMPARED WITH ECG OF 19-JAN-2018 05:32, NO SIGNIFICANT CHANGE WAS FOUND Confirmed by EDIS HUANG MD ([id number]) on 01/24/2018 1:19:40 PM Referred By: Amarilys PATTEN Confirmed By:EDIS HUANG MD
--- NOTE | 2018-01-24 14:24 | PN ---
Progress Note, Physician Chief Complaint: Cardiology coverage for Dr. Brasher History of Present Illness: Patient underwent left carotid endarterectomy, large plaque at left carotid bifurcation with severe stenosis of ICA. Tortuous redundant distal ICA, Thin Dacron patch placed, denies chest pain, dyspnea post-op. Hypertensive post-op, did not receive carvedilol in AM. - Current Medication List Current Medications: Active Medications Amlodipine Besylate (Norvasc -) 5 mg PO DAILY [facility] Aspirin (Asa -) 81 mg PO DAILY [facility] Carvedilol (Coreg -) 6.25 mg PO BID [facility] Chlorhexidine Gluconate (Hibiclens For Decolonization -) 1 applic TP HS [facility] Clopidogrel Bisulfate (Plavix -) 75 mg PO DAILY [facility] Fentanyl (Sublimaze Injection -) 25 mcg IVPUSH [id number] PRN PRN Reason: PAIN-PACU ORDER X 4 DOSES ONLY Furosemide (Lasix -) 40 mg PO DAILY [facility] Heparin Sodium (Porcine) (Heparin -) 5,000 unit SQ BID [facility] Lactated Ringer's (Lactated Ringers Solution) 1,000 mls @ 75 mls/hr IV ASDIR [facility] Insulin Aspart (Novolog Vial Sliding Scale -) [facility]; Protocol Mupirocin (Bactroban Ointment (For Decolonization) -) 1 applic NS BID [facility] Stop: 01/29/18 21:59 Promethazine HCl (Phenergan Injection -) 12.5 mg IVPUSH Q6H PRN PRN Reason: NAUSEA-FOR RESCUE AFTER 15 MIN Rosuvastatin Calcium (Crestor -) 40 mg PO HS [facility] - Objective Vital Signs: Vital Signs Temperature 99.0 F 01/24/18 11:51 Pulse Rate 75 01/24/18 13:50 Respiratory Rate 16 01/24/18 13:50 Blood Pressure 145/63 01/24/18 13:50 O2 Sat by Pulse Oximetry (%) 96 01/24/18 13:50 Constitutional: Yes: No Distress, Calm Neck: Yes: Supple Cardiovascular: Yes: Regular Rate and Rhythm Respiratory: Yes: Regular, CTA Bilaterally Gastrointestinal: Yes: Normal Bowel Sounds, Soft Edema: Yes Edema: LLE: Trace, RLE: Trace Labs: CBC, BMP 01/24/18 12:05 01/24/18 05:30 - ....Imaging EKG: Report Reviewed (NSR @ 87 1st deg AVB RBBB, 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 transplanted heart: [place] heart Associated angina: without angina Qualified Code(s): I25.10 - Atherosclerotic heart disease of [place] coronary artery without angina pectoris (3) CKD (chronic kidney disease) Code(s): N18.9 - CHRONIC KIDNEY DISEASE, UNSPECIFIED Qualifiers: Chronic kidney disease stage: stage 3 (moderate) Qualified Code(s): N18.3 - Chronic kidney disease, stage 3 (moderate) (4) Carotid stenosis, left Code(s): I65.22 - OCCLUSION AND STENOSIS OF LEFT CAROTID ARTERY (5) PVD (peripheral vascular disease) Code(s): I73.9 - PERIPHERAL VASCULAR DISEASE, UNSPECIFIED (6) Diastolic CHF Code(s): I50.30 - UNSPECIFIED DIASTOLIC (CONGESTIVE) HEART FAILURE Qualifiers: Heart failure chronicity: chronic Qualified Code(s): I50.32 - Chronic diastolic (congestive) heart failure (7) HTN (hypertension) Code(s): I10 - ESSENTIAL (PRIMARY) HYPERTENSION Qualifiers: Hypertension type: essential hypertension Qualified Code(s): I10 - Essential (primary) hypertension (8) History of CVA (cerebrovascular accident) Code(s): Z86.73 - PRSNL HX OF TIA (TIA), AND CEREB INFRC W/O RESID DEFICITS (9) History of coronary artery stent placement Code(s): Z95.5 - PRESENCE OF CORONARY ANGIOPLASTY IMPLANT AND GRAFT (10) Hyperkalemia Code(s): E87.5 - HYPERKALEMIA (11) Hyperlipidemia Code(s): E78.5 - HYPERLIPIDEMIA, UNSPECIFIED Qualifiers: Hyperlipidemia type: pure hypercholesterolemia Qualified Code(s): E78.00 - Pure hypercholesterolemia, unspecified; E78.0 - Pure hypercholesterolemia (12) IDDM (insulin dependent diabetes mellitus) Code(s): E11.9 - TYPE 2 DIABETES MELLITUS WITHOUT COMPLICATIONS; Z79.4 - HALF-WAY (CURRENT) USE OF INSULIN Assessment/Plan --Echocardiogram 01/19: LVEF 50-55%, mild inferolateral hypokinesis, mild MR, TR , mild aortic sclerosis --ECG: RBBB, LAFB --Telemetry review: no evidence of high degree AVB since admission --Carotid: occuded R ICA, High grade 99% left ICA. --LE: Duplex- No DVT --CT Head negative for acute intracranial process --troponin negative X2 --cardiac cath 08/16: 2 V CAD- LM 30% distal stenosis, LAD mild diffuse disease, LCx 30-50% mid, 90% distal stenosis, and RCA 100% proximal occlusion s/p sucessful PCI of distal LCx with GHAZAL. 1. Left carotid stenosis POD#0 Left carotid endarterectomy stable CV-mcclain 2. 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 LV diastolic dysfunction LVEF 50% 4. PAD status post bilateral lower extremity bypass 5. CKD with hyperkalemia on MICHAEL-I since d/terrence, consider re-challenge with ARB once hyperkalemia resolves 6. COPD P: 1. Given recency of GHAZAL will need to continue DAPT post-operatively with aspirin 81mg, plavix 75mg, carvedilol 6.25mg BID, norvasc 5 qd, Crestor 40 qd, Lasix 40 qd 2. Monitor post-op Hgb while on DAPT
[2018-01-24] MEDS ORDERED: CARVEDILOL 6.25 MG TABLET (FP) PO ONE (14:43)
--- NOTE | 2018-01-24 16:55 | PN ---
Progress Note (short form) - Note Progress Note: POST-OP check: Pt with complaints of pain at neck incision, and feeling thirsty. No CP/SOB. Voided on his own. Vital Signs Period Temp Pulse Resp BP Sys/Fuentes Pulse Ox Last 24 Hr 98.1 F-99.0 F 66-106 13-20 129-190/52-106 94-100 UOP-200ml GEN: A&0x3, NAD CV: RRR Lungs: CTA b/l anteriorly Neck: dressing c/d/i, no masses/ecchymosis, soft. Neuro: smile symmetrical, no tongue deviation, moving all extremities/plastic welder strength equal b/l CBC, BMP 01/24/18 12:05 01/24/18 05:30 Laboratory Tests 01/24/18 01/24/18 12:02 12:05 POC Glucometer 188 Creatine Kinase 111 Troponin I 0.02 A/p: 57 yo male s/p L CEA, doing well surgically SBP with labetaolol x1 and coreg Diet as tolerated Plan for transfer to the ICU for further monitoring/BP control ASA/plavix in the am DVT ppx wit Heparin SQ
--- NOTE | 2018-01-24 19:29 | CONSULT ---
Consultation: REQUESTING PROVIDER: CONSULT REQUEST: We have been asked to medically evaluate this patient for ( specify). HISTORY OF PRESENT ILLNESS: This is a 57 yo noncompliant M with PMH of CAD s/p stents GHAZAL to distal LCx 08/26 and pRCA 100% CTO0, PAD s/p b/l LE bypass, HTN, CVA (residual left side weakness), HLD, DM, CKD who who initially presented with lightheadedness and near syncope. Upon further workup with carotid US, was found to have complete R ICA blockage and 99% L ICA occlusion. He is now POD 0 s/p L endarterectomy by Dr Humphrey, uncomplicated, EBL 50 cc. Patient is afebrile and hemodynamically stable. complains of mild L sided neck pain, denies cp, h/a, dizziness, new visual changes or new focal neuro deficits. REVIEW OF SYSTEMS: CONSTITUTIONAL: Absent: fever, chills, diaphoresis, generalized weakness HEENT: Absent: throat pain, throat swelling, difficulty swallowing, visual changes CARDIOVASCULAR: Absent: chest pain, syncope, palpitations, lightheadedness RESPIRATORY: Absent: cough, shortness of breath, orthopnea GASTROINTESTINAL: Absent: abdominal pain, abdominal distension, nausea, vomiting, diarrhea, constipation, melena, hematochezia GENITOURINARY: Absent: dysuria, flank pain MUSCULOSKELETAL: Absent: back pain SKIN: Absent: rash, itching, pallor HEMATOLOGIC/IMMUNOLOGIC: Absent: easy bleeding, easy bruising ENDOCRINE: Absent: heat intolerance, cold intolerance NEUROLOGIC: Absent: headache, new focal weakness or paresthesias PSYCHIATRIC: Absent: anxiety, depression PHYSICAL EXAMINATION Vital Signs - 24 hr 01/23/18 01/24/18 01/24/18 21:00 01:00 05:00 Temperature 98.1 F 98.1 F 98.6 F Pulse Rate 69 78 76 Respiratory 19 19 18 Rate Blood Pressure 133/61 134/52 L 129/64 O2 Sat by Pulse 97 Oximetry (%) 01/24/18 01/24/18 01/24/18 11:51 12:05 12:20 Temperature 99.0 F Pulse Rate 104 H 106 H 88 Respiratory 16 16 15 Rate Blood Pressure 190/90 H 176/78 H 170/76 O2 Sat by Pulse 98 94 L 98 Oximetry (%) 01/24/18 01/24/18 01/24/18 12:35 12:50 13:05 Temperature Pulse Rate 78 74 72 Respiratory 13 16 16 Rate Blood Pressure 145/56 L 146/68 139/64 O2 Sat by Pulse 95 100 96 Oximetry (%) 01/24/18 01/24/18 01/24/18 13:20 13:35 13:50 Temperature Pulse Rate 77 72 75 Respiratory 14 14 16 Rate Blood Pressure 145/63 139/64 145/63 O2 Sat by Pulse 95 96 96 Oximetry (%) 01/24/18 01/24/18 01/24/18 14:00 14:05 14:35 Temperature 98.1 F Pulse Rate 79 74 75 Respiratory 16 16 Rate Blood Pressure 171/106 H 153/66 166/74 O2 Sat by Pulse 98 100 Oximetry (%) 01/24/18 01/24/18 01/24/18 15:05 15:35 16:05 Temperature Pulse Rate 76 74 72 Respiratory 16 16 16 Rate Blood Pressure 155/76 156/67 149/69 O2 Sat by Pulse 100 100 100 Oximetry (%) GENERAL: Awake, alert, and fully oriented, in no acute distress. HEAD: Normal with no signs of trauma. EYES: Pupils equal, round and reactive to light, extraocular movements intact, sclera anicteric, conjunctiva clear. No lid lag.slight blurry vision in L eye, chronic per patient EARS, NOSE, THROAT: Moist mucous membranes. NECK: supple. clean dressing at L lateral neck LUNGS: Breath sounds equal, clear to auscultation bilaterally. HEART: Regular rate and rhythm, normal S1 and S2 ABDOMEN: Soft, nontender, not distended, normoactive bowel sounds, no guarding, no masses. MUSCULOSKELETAL: No CVA tenderness. UPPER EXTREMITIES: 2+ pulses, warm, well-perfused. No peripheral edema. LOWER EXTREMITIES: 2+ pulses, warm, well-perfused. No calf tenderness. 1+ pedal edema L>R, chronic per patient NEUROLOGICAL: Cranial nerves II-XII intact. Normal speech. strenght 4/5 LUE, 5/ 5 RUE. LLE strength 4+/5, RLE 5/5. sensation intact PSYCHIATRIC: Cooperative. Good eye contact. Appropriate mood and affect. SKIN: Warm, dry Laboratory Results - last 24 hr 01/22/18 01/23/18 01/24/18 09:20 21:51 05:30 WBC RBC Hgb Hct MCV MCH MCHC RDW Plt Count MPV Sodium 142 Potassium 5.2 H Chloride 110 H Carbon Dioxide 24 Anion Gap 8 BUN 51 H Creatinine 2.0 H Creat Clearance w eGFR 34.37 POC Glucometer 200 Random Glucose 142 H Calcium 8.0 L Creatine Kinase Troponin I Blood Type O POSITIVE Antibody Screen Negative Crossmatch IS Only See Detail 01/24/18 01/24/18 01/24/18 05:57 12:02 12:05 WBC 7.6 RBC 2.79 L Hgb 8.9 L Hct 26.3 L MCV 94.3 MCH 31.8 MCHC 33.7 RDW 14.5 Plt Count 189 MPV 8.1 Sodium Potassium Chloride Carbon Dioxide Anion Gap BUN Creatinine Creat Clearance w eGFR POC Glucometer 176 188 Random Glucose Calcium Creatine Kinase Troponin I Blood Type Antibody Screen Crossmatch IS Only 01/24/18 12:05 WBC RBC Hgb Hct MCV MCH MCHC RDW Plt Count MPV Sodium Potassium Chloride Carbon Dioxide Anion Gap BUN Creatinine Creat Clearance w eGFR POC Glucometer Random Glucose Calcium Creatine Kinase 111 Troponin I 0.02 Blood Type Antibody Screen Crossmatch IS Only Active Medications Generic Name Dose Route Start Last Admin Trade Name Freq PRN Reason Stop Dose Admin Amlodipine Besylate 5 mg 01/25/18 10:00 Norvasc - PO DAILY [facility] Aspirin 81 mg 01/25/18 10:00 Asa - PO DAILY [facility] Carvedilol 6.25 mg 01/24/18 22:00 Coreg - PO BID [facility] Chlorhexidine Gluconate 1 applic 01/24/18 22:00 Hibiclens For Decolonization - TP HS [facility] Clopidogrel Bisulfate 75 mg 01/25/18 10:00 Plavix - PO DAILY [facility] Fentanyl 25 mcg 01/24/18 11:59 Sublimaze Injection - IVPUSH [id number] PRN PAIN-PACU ORDER X 4 DOSES ONLY Furosemide 40 mg 01/25/18 10:00 Lasix - PO DAILY [facility] Heparin Sodium (Porcine) 5,000 unit 01/24/18 22:00 Heparin - SQ BID [facility] Lactated Ringer's 1,000 mls @ 75 mls/hr 01/24/18 12:00 01/24/18 14:52 Lactated Ringers Solution IV 0 mls ASDIR [facility] Administration Insulin Aspart 1 vial 01/24/18 16:30 Novolog Vial Sliding Scale - SQ ACHS [facility] Protocol Mupirocin 1 applic 01/24/18 22:00 Bactroban Ointment (For Decolonization) - NS 01/29/18 21:59 BID TONYA Promethazine HCl 12.5 mg 01/24/18 11:59 Phenergan Injection - IVPUSH Q6H PRN NAUSEA-FOR RESCUE AFTER 15 MIN Rosuvastatin Calcium 40 mg 01/24/18 22:00 Crestor - PO HS [facility] ASSESSMENT/PLAN: This is a 57 yo noncompliant M with PMH of CAD s/p stents 08/16, PAD s/p b/l LE bypass, HTN, CVA (residual left side weakness), HLD, DM, CKD who who initially presented with lightheadedness and near syncope, found to have complete R ICA blockage and 99% L ICA occlusion. POD 0 s/p L ICA endarterectomy hyprkalemia 5.2 CAD s/p GHAZAL HTN CVA HLD DM CKD -NS @ 75 -restart ASA/Plav in the morning given recent GHAZAL -BP control with norvasc, coreg -lasix 40 d -resume ARB once hyperkalemia resumes -Crestor 40 D -BGM, ISS -f/u post op CBC -neuro checks -diabetic low fat low na diet -Hep sq Dispo: We will continue to follow the patient. Thank you for this consultative opportunity. Problem List - Problems (1) CAD (coronary artery disease) Code(s): I25.10 - ATHSCL HEART DISEASE OF [place] CORONARY ARTERY W/O ANG PCTRS Qualifiers: Coronary Disease-Associated Artery/Lesion type: [place] artery [place] vs. transplanted heart: [place] heart Associated angina: without angina Qualified Code(s): I25.10 - Atherosclerotic heart disease of [place] coronary artery without angina pectoris (2) CKD (chronic kidney disease) Code(s): N18.9 - CHRONIC KIDNEY DISEASE, UNSPECIFIED Qualifiers: Chronic kidney disease stage: stage 3 (moderate) Qualified Code(s): N18.3 - Chronic kidney disease, stage 3 (moderate) (3) Carotid stenosis Code(s): I65.29 - OCCLUSION AND STENOSIS OF UNSPECIFIED CAROTID ARTERY Qualifiers: Laterality: bilateral Qualified Code(s): I65.23 - Occlusion and stenosis of bilateral carotid arteries (4) Carotid stenosis, left Code(s): I65.22 - OCCLUSION AND STENOSIS OF LEFT CAROTID ARTERY (5) Dizziness Code(s): R42 - DIZZINESS AND GIDDINESS (6) Leg edema Code(s): R60.0 - LOCALIZED [place]DE[place] (7) Lightheadedness Code(s): R42 - DIZZINESS AND GIDDINESS (8) PVD (peripheral vascular disease) Code(s): I73.9 - PERIPHERAL VASCULAR DISEASE, UNSPECIFIED (9) S/P carotid endarterectomy Code(s): Z98.890 - OTHER SPECIFIED POSTPROCEDURAL STATES (10) ASHD (arteriosclerotic heart disease) Code(s): I25.10 - ATHSCL HEART DISEASE OF [place] CORONARY ARTERY W/O ANG PCTRS (11) CAD (coronary artery disease) Code(s): I25.10 - ATHSCL HEART DISEASE OF [place] CORONARY ARTERY W/O ANG PCTRS Qualifiers: Coronary Disease-Associated Artery/Lesion type: [place] artery [place] vs. transplanted heart: [place] heart Associated angina: without angina Qualified Code(s): I25.10 - Atherosclerotic heart disease of [place] coronary artery without angina pectoris (12) CKD (chronic kidney disease) Code(s): N18.9 - CHRONIC KIDNEY DISEASE, UNSPECIFIED Qualifiers: Chronic kidney disease stage: unspecified stage Qualified Code(s): N18.9 - Chronic kidney disease, unspecified (13) Diabetes Code(s): E11.9 - TYPE 2 DIABETES MELLITUS WITHOUT COMPLICATIONS Qualifiers: Diabetes mellitus type: type 2 Diabetes mellitus complication detail: with nephropathy (14) PAD (peripheral artery disease) Code(s): I73.9 - PERIPHERAL VASCULAR DISEASE, UNSPECIFIED Visit type - Emergency Visit Emergency Visit: Yes ED Registration Date: 01/21/18 Care time: The patient presented to the Emergency Department on the above date and was hospitalized for further evaluation of their emergent condition. - New Patient This patient is new to me today: Yes Date on this admission: 01/24/18 - Critical Care Critical Care patient: Yes Total Critical Care Time (in minutes): 40 Critical Care Statement: The care of this patient involved high complexity decision making to prevent further life threatening deterioration of the patient 's condition and/or to evaluate & treat vital organ system(s) failure or risk of failure.
[2018-01-24] MEDS: ROSUVASTATIN CA 20 MG TABLET (FP) PO SCH (22:29)
[2018-01-24] MEDS: MUPIROCIN 2% TOPICAL OINTMENT FOR DECOLONIZATION NS SCH (22:29)
[2018-01-24] MEDS: HEPARIN NA (PORCINE) 5,000 UNITS/ML 1ML VIAL SQ SCH (22:30)
[2018-01-24] MEDS: CHLORHEXIDINE GLUCONATE 4% CLEANSER FOR DECOLONIZATION TP SCH (22:30)
[2018-01-24] MEDS: CARVEDILOL 6.25 MG TABLET (FP) PO SCH (22:30)
[2018-01-25] MEDS: INSULIN SLIDING SCALE (NOVOLOG) 1 VIAL SQ SCH ×4 (06:03→21:31)
[2018-01-25 06:16] LABS: BASO % 0.4 % (0-2.0); EOS % 0.2 % (0-4.5); HEMATOCRIT 23.7 % (35.4-49); LYMPH % 5.9 % (8-40); MCH 31.7 pg (25.7-33.7); MCHC 33.7 g/dl (32.0-35.9); MEAN CELL VOLUME 94.2 fl (80-96); MEAN PLT VOLUME 9.2 fl (7.5-11.1); MONO % 7.1 % (3.8-10.2); NEUT % 86.4 % (42.8-82.8); PLATELET COUNT 132 K/MM3 (134-434); RBC 2.51 M/mm3 (4.00-5.60); RDW 14.4 % (11.9-15.9); WHITE BLOOD COUNT 10.2 K/mm3 (4.0-10.0)
[2018-01-25 07:31] LABS: ANION GAP 6 MMOL/L (8-16); BLOOD UREA NITROGEN 54 mg/dL (7-18); CALCIUM 7.8 mg/dL (8.5-10.1); CHLORIDE 108 mmol/L (98-107); CO2 24 mmol/L (21-32); CREATININE 2.1 mg/dL (0.55-1.3); GLUCOSE,RANDOM 137 mg/dL (74-106); MAGNESIUM 2.2 mg/dL (1.8-2.4); PHOSPHOROUS 4.5 mg/dL (2.5-4.9); POTASSIUM 5.6 mmol/L (3.5-5.1); SODIUM 138 mmol/L (136-145)
--- NOTE | 2018-01-25 08:38 | PN ---
Progress Note, Physician Chief Complaint: seen and examined in ICU post CEA Alert, no distress TELE: NSR. BP slightly elevated, but has not yet received AM meds. No sig bleeding noted - Current Medication List Current Medications: Active Medications Amlodipine Besylate (Norvasc -) 5 mg PO DAILY [facility] Aspirin (Asa -) 81 mg PO DAILY [facility] Carvedilol (Coreg -) 6.25 mg PO BID [facility] Last Admin: 01/24/18 22:30 Dose: 6.25 mg Chlorhexidine Gluconate (Hibiclens For Decolonization -) 1 applic TP HS [facility] Last Admin: 01/24/18 22:30 Dose: 1 applic Clopidogrel Bisulfate (Plavix -) 75 mg PO DAILY [facility] Fentanyl (Sublimaze Injection -) 25 mcg IVPUSH [id number] PRN PRN Reason: PAIN-PACU ORDER X 4 DOSES ONLY Furosemide (Lasix -) 40 mg PO DAILY [facility] Heparin Sodium (Porcine) (Heparin -) 5,000 unit SQ BID [facility] Last Admin: 01/24/18 22:30 Dose: 5,000 unit Lactated Ringer's (Lactated Ringers Solution) 1,000 mls @ 75 mls/hr IV ASDIR [facility] Last Admin: 01/24/18 14:52 Dose: 0 mls Insulin Aspart (Novolog Vial Sliding Scale -) 1 vial SQ [facility]; Protocol Last Admin: 01/25/18 06:03 Dose: 2 units Mupirocin (Bactroban Ointment (For Decolonization) -) 1 applic NS BID [facility] Stop: 01/29/18 21:59 Last Admin: 01/24/18 22:29 Dose: 1 applic Promethazine HCl (Phenergan Injection -) 12.5 mg IVPUSH Q6H PRN PRN Reason: NAUSEA-FOR RESCUE AFTER 15 MIN Rosuvastatin Calcium (Crestor -) 40 mg PO [facility] Last Admin: 01/24/18 22:29 Dose: 40 mg - Objective Vital Signs: Vital Signs Temperature 98.2 F 01/25/18 02:00 Pulse Rate 84 01/25/18 06:00 Respiratory Rate 16 01/25/18 06:00 Blood Pressure 156/83 01/25/18 06:00 O2 Sat by Pulse Oximetry (%) 100 01/24/18 20:33 Constitutional: Yes: No Distress Cardiovascular: Yes: Regular Rate and Rhythm Respiratory: Yes: CTA Bilaterally Gastrointestinal: Yes: Soft Edema: No Neurological: Yes: Alert Labs: CBC, BMP 01/25/18 05:30 01/25/18 05:30 Laboratory Tests 01/25/18 01/25/18 05:30 05:30 WBC 10.2 H Hgb 8.0 L Plt Count 132 L D Sodium 138 Potassium 5.6 H BUN 54 H - ....Imaging EKG: Image Reviewed (TELE: NSR) Assessment/Plan Assessment/Plan --Echocardiogram 01/19: LVEF 50-55%, mild inferolateral hypokinesis, mild MR, TR , mild aortic sclerosis --ECG: RBBB, LAFB --Telemetry review: no evidence of high degree AVB since admission --Carotid: occuded R ICA, High grade 99% left ICA. --LE: Duplex- No DVT --CT Head negative for acute intracranial process --troponin negative X2 --cardiac cath 08/16: 2 V CAD- LM 30% distal stenosis, LAD mild diffuse disease, LCx 30-50% mid, 90% distal stenosis, and RCA 100% proximal occlusion s/p sucessful PCI of distal LCx with GHAZAL. 1. Left carotid stenosis POD#1 Left carotid endarterectomy stable CV-mcclain; no sig bleeding noted. 2. Coronary artery disease status post GHAZAL to distal LCx 08/26/2017, pRCA 100% [employer] 3. LV diastolic dysfunction LVEF 50% 4. PAD status post bilateral lower extremity bypass 5. CKD with hyperkalemia on MICHAEL-I since d/terrence, consider re-challenge with ARB once hyperkalemia resolves 6. COPD P: 1. Given recency of GHAZAL will need to continue DAPT post-operatively with aspirin 81mg, plavix 75mg, carvedilol 6.25mg BID, norvasc 5 qd, Crestor 40 qd, Lasix 40 qd 2. Monitor post-op Hgb while on DAPT
[2018-01-25] MEDS ORDERED: BENZOCAINE/MENTH/CETYLPYRD CL 1 EACH LOZENGE MM PRN (08:48)
[2018-01-25] MEDS: CARVEDILOL 6.25 MG TABLET (FP) PO SCH ×2 (09:00→22:07)
[2018-01-25] MEDS: CLOPIDOGREL BISULFATE 75 MG TABLET (FP) PO SCH (09:00)
[2018-01-25] MEDS: FUROSEMIDE 40 MG TABLET (FP) PO SCH (09:00)
[2018-01-25] MEDS: HEPARIN NA (PORCINE) 5,000 UNITS/ML 1ML VIAL SQ SCH ×2 (09:00→21:31)
[2018-01-25] MEDS: ASPIRIN 81 MG CHEWABLE TABLETS PO SCH (09:00)
[2018-01-25] MEDS: MUPIROCIN 2% TOPICAL OINTMENT FOR DECOLONIZATION NS SCH ×2 (09:01→21:26)
[2018-01-25] MEDS: amLODIPine BESYLATE 5 MG TABLET (FP) PO SCH (09:03)
--- NOTE | 2018-01-25 09:53 | PN ---
Progress Note, Physician Chief Complaint: Pt. sitting comfortably in bed, pain controlled, no GA complaints. - Current Medication List Current Medications: Active Medications Amlodipine Besylate (Norvasc -) 5 mg PO DAILY [facility] Last Admin: 01/25/18 09:03 Dose: 5 mg Aspirin (Asa -) 81 mg PO DAILY [facility] Last Admin: 01/25/18 09:00 Dose: 81 mg Benzocaine/Menthol (Cepacol Lozenge -) 1 each MM PRN PRN PRN Reason: SORE THROAT Carvedilol (Coreg -) 6.25 mg PO BID [facility] Last Admin: 01/25/18 09:00 Dose: 6.25 mg Chlorhexidine Gluconate (Hibiclens For Decolonization -) 1 applic TP [facility] Last Admin: 01/24/18 22:30 Dose: 1 applic Clopidogrel Bisulfate (Plavix -) 75 mg PO DAILY [facility] Last Admin: 01/25/18 09:00 Dose: 75 mg Fentanyl (Sublimaze Injection -) 25 mcg IVPUSH [id number] PRN PRN Reason: PAIN-PACU ORDER X 4 DOSES ONLY Furosemide (Lasix -) 40 mg PO DAILY [facility] Last Admin: 01/25/18 09:00 Dose: 40 mg Heparin Sodium (Porcine) (Heparin -) 5,000 unit SQ BID [facility] Last Admin: 01/25/18 09:00 Dose: 5,000 unit Lactated Ringer's (Lactated Ringers Solution) 1,000 mls @ 75 mls/hr IV ASDIR [facility] Last Admin: 01/24/18 14:52 Dose: 0 mls Insulin Aspart (Novolog Vial Sliding Scale -) 1 vial SQ [facility]; Protocol Last Admin: 01/25/18 06:03 Dose: 2 units Mupirocin (Bactroban Ointment (For Decolonization) -) 1 applic NS BID [facility] Stop: 01/29/18 21:59 Last Admin: 01/25/18 09:01 Dose: 1 applic Promethazine HCl (Phenergan Injection -) 12.5 mg IVPUSH Q6H PRN PRN Reason: NAUSEA-FOR RESCUE AFTER 15 MIN Rosuvastatin Calcium (Crestor -) 40 mg PO [facility] Last Admin: 01/24/18 22:29 Dose: 40 mg - Objective Vital Signs: Vital Signs Temperature 98.2 F 01/25/18 02:00 Pulse Rate 84 01/25/18 06:00 Respiratory Rate 16 01/25/18 09:00 Blood Pressure 156/83 01/25/18 06:00 O2 Sat by Pulse Oximetry (%) 100 01/25/18 09:00 Constitutional: Yes: Well Nourished, No Distress, Calm Neurological: Yes: WNL, Alert, Oriented Labs: CBC, BMP 01/25/18 05:30 01/25/18 05:30 Assessment/Plan POD#1 s/p Left carotid endarterectomy under GA. Stable. D/C from anesthesia care.
--- NOTE | 2018-01-25 10:03 | PN ---
Progress Note (short form) - Note Progress Note: Pt seen and examined in ICU. States he is feeling well. Has minimal pain at incision site. Tolerating PO, reports a sore throat which is improving with Po hydration. +TOV, requesting RN for help with BM. Has not been oob yet. Denies any headaches, dizziness, difficulty with speech, confusion, n/v/d, chest pain, sob. Reports some blurry vision in his left eye which is his baseline prior to the surgery. States his legs "feel the best they ever have". Vital Signs Temp 98.2 F 01/25/18 02:00 Pulse 84 01/25/18 06:00 Resp 16 01/25/18 09:00 BP 156/83 01/25/18 06:00 Pulse Ox 100 01/25/18 09:00 Intake & Output 01/24/18 01/24/18 01/25/18 11:59 23:59 11:59 Intake Total 1760 575 625 Output Total 675 1600 200 Balance 1085 -1025 425 Weight 195 lb 195 lb 4 oz Intake: IV 1760 225 525 Lactated Ringers Solution 225 525 1,000 ml @ 75 mls/hr IV ASDIR [facility] Rx#:[id number] sl 10 Oral 0 350 100 Output: Urine 625 1600 200 Void 625 500 200 Estimated Blood Loss 50 Other: Voiding Method Toilet Urinal Urinal # Unmeasured Voids Void 2 1 Weight Measurement Method Standing Scale Built in [facility] CBC, BMP 01/25/18 05:30 01/25/18 05:30 Gen: awake, alert, in nad, alert and oriented x3. Neck: Incision soft, c/d/i, emilie in place. No erythema or drainage. No palpable hematoma Neuro: alert and cooperative with examination. Speech is fluent. No facial asymmetry, tongue protrudes midline. RUE 5/5 biceps/triceps, salesperson handbags strength intact, LUE 4+/5 biceps, 3+/5 triceps, RLE 5/5 dorsi/plantarflexion, LLE 4+/5 dorsiflexion, 3+/5 plantar flexion. SILT UE/LE's b/l. B/L les with SCD in place (removed due to patients h/o bypasses b/l ). +edema 2+ to b/l le's. Feet warm, well perfused. -Monitor Bp closely, Bp parameters to be established by Freezing Room Worker -Continue frequent neurovascular checks -No scds at this time due to prior b/l bypass -Can be transferred to floor today d/w attending Dr Humphrey
--- NOTE | 2018-01-25 12:00 | PN ---
Physical Exam: SUBJECTIVE: - Feels OK following surgery - Complains of sore throat. Minimal pain at surgical site - No difficulty swallowing or speaking, no numbness tingling, no new weakness OBJECTIVE: Vital Signs Period Temp Pulse Resp BP Sys/Fuentes Pulse Ox Last 24 Hr 97 F-99.0 F 72-106 13-20 127-176/56-106 94-100 General: Comfortable, no acute distress HEENT: PERRL, EOMI, MMM, voice normal. Incision on left neck, emilie in place, incision c/d/i with minimal dried blood on gauze, some underlying swelling but soft to palpation. Cards: RRR, no murmur appreciated Pulm: Comfortable on room air, exam limited by upper respiratory noise Abd: Soft, nontender, nondistended Ext: Atraumatic. well-healed surgical scars on BLE consistent with previous bypass. B/L 2+ pitting pedal edema. SCD's initially in place, removed, underlying erythema that self-resolved. Dry gangrene to Vasc: Extremities WWP. Skin: Normal color, no rashes or lesions Neuro: A&Ox3, CN grossly intact, normal speech, motor/sensory grossly intact and symmetric. No focal deficits Psych: Mood appropriate to situation Laboratory Results - last 24 hr 01/22/18 01/24/18 01/24/18 09:20 12:02 12:05 WBC 7.6 RBC 2.79 L Hgb 8.9 L Hct 26.3 L MCV 94.3 MCH 31.8 MCHC 33.7 RDW 14.5 Plt Count 189 MPV 8.1 Absolute Neuts (auto) Neutrophils % Lymphocytes % Monocytes % Eosinophils % Basophils % Nucleated RBC % Sodium Potassium Chloride Carbon Dioxide Anion Gap BUN Creatinine Creat Clearance w eGFR POC Glucometer 188 Random Glucose Calcium Phosphorus Magnesium Creatine Kinase Troponin I Blood Type O POSITIVE Antibody Screen Negative Crossmatch IS Only See Detail 01/24/18 01/24/18 01/25/18 12:05 21:12 05:30 WBC 10.2 H RBC 2.51 L Hgb 8.0 L Hct 23.7 L MCV 94.2 MCH 31.7 MCHC 33.7 RDW 14.4 Plt Count 132 L D MPV 9.2 D Absolute Neuts (auto) 8.8 H Neutrophils % 86.4 H D Lymphocytes % 5.9 L D Monocytes % 7.1 Eosinophils % 0.2 D Basophils % 0.4 Nucleated RBC % 0 Sodium Potassium Chloride Carbon Dioxide Anion Gap BUN Creatinine Creat Clearance w eGFR POC Glucometer 280.89459 Random Glucose Calcium Phosphorus Magnesium Creatine Kinase 111 Troponin I 0.02 Blood Type Antibody Screen Crossmatch IS Only 01/25/18 01/25/18 05:30 10:27 WBC RBC Hgb Hct MCV MCH MCHC RDW Plt Count MPV Absolute Neuts (auto) Neutrophils % Lymphocytes % Monocytes % Eosinophils % Basophils % Nucleated RBC % Sodium 138 Potassium 5.6 H Chloride 108 H Carbon Dioxide 24 Anion Gap 6 L BUN 54 H Creatinine 2.1 H Creat Clearance w eGFR 32.49 POC Glucometer 99.84387 Random Glucose 137 H Calcium 7.8 L Phosphorus 4.5 Magnesium 2.2 Creatine Kinase Troponin I Blood Type Antibody Screen Crossmatch IS Only Active Medications Generic Name Dose Route Start Last Admin Trade Name Freq PRN Reason Stop Dose Admin Amlodipine Besylate 5 mg 01/25/18 10:00 01/25/18 09:03 Norvasc - PO 5 mg DAILY [facility] Administration Aspirin 81 mg 01/25/18 10:00 01/25/18 09:00 Asa - PO 81 mg DAILY [facility] Administration Benzocaine/Menthol 1 each 01/25/18 08:48 Cepacol Lozenge - MM PRN PRN SORE THROAT Carvedilol 6.25 mg 01/24/18 22:00 01/25/18 09:00 Coreg - PO 6.25 mg BID [facility] Administration Chlorhexidine Gluconate 1 applic 01/24/18 22:00 01/24/18 22:30 Hibiclens For Decolonization - TP 1 applic HS [facility] Administration Clopidogrel Bisulfate 75 mg 01/25/18 10:00 01/25/18 09:00 Plavix - PO 75 mg DAILY [facility] Administration Fentanyl 25 mcg 01/24/18 11:59 Sublimaze Injection - IVPUSH [id number] PRN PAIN-PACU ORDER X 4 DOSES ONLY Furosemide 40 mg 01/25/18 10:00 01/25/18 09:00 Lasix - PO 40 mg DAILY [facility] Administration Heparin Sodium (Porcine) 5,000 unit 01/24/18 22:00 01/25/18 09:00 Heparin - SQ 5,000 unit BID [facility] Administration Lactated Ringer's 1,000 mls @ 75 mls/hr 01/24/18 12:00 01/24/18 14:52 Lactated Ringers Solution IV 0 mls ASDIR [facility] Administration Insulin Aspart 1 vial 01/24/18 16:30 01/25/18 11:33 Novolog Vial Sliding Scale - SQ Not Given ACHS [facility] Protocol Mupirocin 1 applic 01/24/18 22:00 01/25/18 09:01 Bactroban Ointment (For Decolonization) - NS 01/29/18 21:59 1 applic BID [facility] Administration Promethazine HCl 12.5 mg 01/24/18 11:59 Phenergan Injection - IVPUSH Q6H PRN NAUSEA-FOR RESCUE AFTER 15 MIN Rosuvastatin Calcium 40 mg 01/24/18 22:00 01/24/18 22:29 Crestor - PO 40 mg HS [facility] Administration ASSESSMENT/PLAN: Rich Solis is a 57yo man with a PMH of CAD s/p stents (07/2017), PAD s/p BLE arterial bypass, CVA with residual left-sided weakness, HTN, HLD, DM, CKD, current smoking, documented h/o non-compliance who initially presented on 01/19 with intermittent dizziness for 4 months, new onset nausea and worsening BLE edema. Carotid ultrasound demonstrated a known R ICA occlusion and worsening L ICA stenosis, now 99%. Mr Solis is now POD #1 s/p L CEA and is recovering well. He is ready for transfer to the floor today. Neuro: - h/o recent TIA symptoms secondary to carotid stenosis - No focal deficits postoperatively - Continue Q4hr neurochecks - Benzocaine lozenge for sore throat CV: - Significant cardiac history including CAD s/p PCI, HTN - Cardiology following - Continue amlodipine 5, ASA 81, plavix, carvedilol 6.25 BID, lasix 50 daily , rosuvastatin 40 daily - HTN to 160s systolic this morning, continue to monitor Pulm: - Current smoker - Supplemental O2 by NC as needed to maintain sats >90 - IS 10x per hour Heme: - Hgb stable postoperatively - Monitor daily CBC - Antiplatelet therapy with ASA, plavix GI: - Tolerating cardiac diet - Promethazine PRN Renal: - h/o CKD. Cr stable at 2.1 - Monitor daily BMP ID: - No issues Endo: - h/o DM - ISS Psych: - No issues Musc: - OOB as tolerated, restrictions per vascular surgery PPx: - SQH. No SCDs due to severe PAD. - No indication for GI ppx FEN: - Cardiac diet - SLIV - Replete lytes PRN Dispo: - Stable for transfer to floor. Seen and discussed with Dr Park. Niurka Hansen PGY1 Visit type - Emergency Visit Emergency Visit: No - New Patient This patient is new to me today: Yes Date on this admission: 01/25/18 - Critical Care Critical Care patient: Yes Total Critical Care Time (in minutes): 45 Critical Care Statement: The care of this patient involved high complexity decision making to prevent further life threatening deterioration of the patient 's condition and/or to evaluate & treat vital organ system(s) failure or risk of failure.
--- NOTE | 2018-01-25 12:40 | PN ---
Teaching Attending Note Name of Resident: Niurka Hansen ATTENDING PHYSICIAN STATEMENT I saw and evaluated the patient. I reviewed the resident's note and discussed the case with the resident. I agree with the resident's findings and plan as documented. SUBJECTIVE: Patient seen and examined in the ICU. Some mild discomfort at the surgical site. No CP or SOB. Intake & Output 01/22/18 01/23/18 01/24/18 01/25/18 23:59 23:59 23:59 23:59 Intake Total 450 1150 2335 625 Output Total 1400 2275 200 Balance 450 -250 60 425 Weight 191 lb 12.8 oz 193 lb 12.8 oz 195 lb 195 lb 4 oz Last Vital Signs Temp Pulse Resp BP Pulse Ox 99.0 F 82 18 149/74 100 01/25/18 10:00 01/25/18 10:00 01/25/18 10:00 01/25/18 10:00 01/25/18 09:00 Active Medications Amlodipine Besylate (Norvasc -) 5 mg PO DAILY [facility] Last Admin: 01/25/18 09:03 Dose: 5 mg Aspirin (Asa -) 81 mg PO DAILY [facility] Last Admin: 01/25/18 09:00 Dose: 81 mg Benzocaine/Menthol (Cepacol Lozenge -) 1 each MM PRN PRN PRN Reason: SORE THROAT Carvedilol (Coreg -) 6.25 mg PO BID [facility] Last Admin: 01/25/18 09:00 Dose: 6.25 mg Chlorhexidine Gluconate (Hibiclens For Decolonization -) 1 applic TP HS [facility] Last Admin: 01/24/18 22:30 Dose: 1 applic Clopidogrel Bisulfate (Plavix -) 75 mg PO DAILY [facility] Last Admin: 01/25/18 09:00 Dose: 75 mg Fentanyl (Sublimaze Injection -) 25 mcg IVPUSH [id number] PRN PRN Reason: PAIN-PACU ORDER X 4 DOSES ONLY Furosemide (Lasix -) 40 mg PO DAILY [facility] Last Admin: 01/25/18 09:00 Dose: 40 mg Heparin Sodium (Porcine) (Heparin -) 5,000 unit SQ BID [facility] Last Admin: 01/25/18 09:00 Dose: 5,000 unit Lactated Ringer's (Lactated Ringers Solution) 1,000 mls @ 75 mls/hr IV ASDIR [facility] Last Admin: 01/24/18 14:52 Dose: 0 mls Insulin Aspart (Novolog Vial Sliding Scale -) 1 vial SQ [facility]; Protocol Last Admin: 01/25/18 11:33 Dose: Not Given Mupirocin (Bactroban Ointment (For Decolonization) -) 1 applic NS BID [facility] Stop: 01/29/18 21:59 Last Admin: 01/25/18 09:01 Dose: 1 applic Promethazine HCl (Phenergan Injection -) 12.5 mg IVPUSH Q6H PRN PRN Reason: NAUSEA-FOR RESCUE AFTER 15 MIN Rosuvastatin Calcium (Crestor -) 40 mg PO HS [facility] Last Admin: 01/24/18 22:29 Dose: 40 mg General: Awake and alert, NAD HEENT: Incision on left neck, gauze/emilie in place Cards: RRR, no murmur appreciated Pulm: Clear Abd: Soft, nontender, nondistended Ext: Atraumatic. well-healed surgical scars on BLE consistent with previous bypass. B/L 2+ pitting pedal edema. Vasc: (-) edema Skin: Normal color, no rashes or lesions Neuro: A&Ox3, non-focal Laboratory Results - last 24 hr 01/24/18 01/24/18 01/24/18 12:05 12:05 21:12 WBC 7.6 RBC 2.79 L Hgb 8.9 L Hct 26.3 L MCV 94.3 MCH 31.8 MCHC 33.7 RDW 14.5 Plt Count 189 MPV 8.1 Absolute Neuts (auto) Neutrophils % Lymphocytes % Monocytes % Eosinophils % Basophils % Nucleated RBC % Sodium Potassium Chloride Carbon Dioxide Anion Gap BUN Creatinine Creat Clearance w eGFR POC Glucometer 280.67522 Random Glucose Calcium Phosphorus Magnesium Creatine Kinase 111 Troponin I 0.02 01/25/18 01/25/18 01/25/18 05:30 05:30 06:02 WBC 10.2 H RBC 2.51 L Hgb 8.0 L Hct 23.7 L MCV 94.2 MCH 31.7 MCHC 33.7 RDW 14.4 Plt Count 132 L D MPV 9.2 D Absolute Neuts (auto) 8.8 H Neutrophils % 86.4 H D Lymphocytes % 5.9 L D Monocytes % 7.1 Eosinophils % 0.2 D Basophils % 0.4 Nucleated RBC % 0 Sodium 138 Potassium 5.6 H Chloride 108 H Carbon Dioxide 24 Anion Gap 6 L BUN 54 H Creatinine 2.1 H Creat Clearance w eGFR 32.49 POC Glucometer 164.48486 Random Glucose 137 H Calcium 7.8 L Phosphorus 4.5 Magnesium 2.2 Creatine Kinase Troponin I 01/25/18 10:27 WBC RBC Hgb Hct MCV MCH MCHC RDW Plt Count MPV Absolute Neuts (auto) Neutrophils % Lymphocytes % Monocytes % Eosinophils % Basophils % Nucleated RBC % Sodium Potassium Chloride Carbon Dioxide Anion Gap BUN Creatinine Creat Clearance w eGFR POC Glucometer 99.68859 Random Glucose Calcium Phosphorus Magnesium Creatine Kinase Troponin I ASSESSMENT/PLAN: POD #1: Left CEA CAD S/P PCI (07/2017) PAD S/P BLE arterial bypass CVA with residual left-sided weakness HTN HLD DM CKD Active smoker Local wound care O2 as needed VTE prophylaxis Pain control Incentive Spirometry Neuro checks Smoking cessation discussed Anti-platelet Floor Dr Park
[2018-01-25 13:56] VITALS: BMI 34.5
--- NOTE | 2018-01-25 13:56 | PN ---
Progress Note (short form) - Note Progress Note: no complaints feels well s/p CEA POD #1 Current Medications Generic Name Dose Route Start Last Admin Trade Name Freq PRN Reason Stop Dose Admin Amlodipine Besylate 5 mg 01/25/18 10:00 01/25/18 09:03 Norvasc - PO 5 mg DAILY [facility] Administration Aspirin 81 mg 01/25/18 10:00 01/25/18 09:00 Asa - PO 81 mg DAILY [facility] Administration Benzocaine/Menthol 1 each 01/25/18 08:48 Cepacol Lozenge - MM PRN PRN SORE THROAT Carvedilol 6.25 mg 01/24/18 22:00 01/25/18 09:00 Coreg - PO 6.25 mg BID [facility] Administration Chlorhexidine Gluconate 1 applic 01/24/18 22:00 01/24/18 22:30 Hibiclens For Decolonization - TP 1 applic HS [facility] Administration Clopidogrel Bisulfate 75 mg 01/25/18 10:00 01/25/18 09:00 Plavix - PO 75 mg DAILY [facility] Administration Fentanyl 25 mcg 01/24/18 11:59 Sublimaze Injection - IVPUSH [id number] PRN PAIN-PACU ORDER X 4 DOSES ONLY Furosemide 40 mg 01/25/18 10:00 01/25/18 09:00 Lasix - PO 40 mg DAILY [facility] Administration Heparin Sodium (Porcine) 5,000 unit 01/24/18 22:00 01/25/18 09:00 Heparin - SQ 5,000 unit BID [facility] Administration Insulin Aspart 1 vial 01/24/18 16:30 01/25/18 11:33 Novolog Vial Sliding Scale - SQ Not Given [facility] Protocol Mupirocin 1 applic 01/24/18 22:00 01/25/18 09:01 Bactroban Ointment (For Decolonization) - NS 01/29/18 21:59 1 applic BID [facility] Administration Promethazine HCl 12.5 mg 01/24/18 11:59 Phenergan Injection - IVPUSH Q6H PRN NAUSEA-FOR RESCUE AFTER 15 MIN Rosuvastatin Calcium 40 mg 01/24/18 22:00 01/24/18 22:29 Crestor - PO 40 mg HS [facility] Administration Sodium Polystyrene Sulfonate 30 gm 01/25/18 13:58 Kayexalate - PO 01/25/18 13:59 ONCE ONE Laboratory Results - last 24 hr 01/24/18 01/25/18 01/25/18 21:12 05:30 05:30 WBC 10.2 H RBC 2.51 L Hgb 8.0 L Hct 23.7 L MCV 94.2 MCH 31.7 MCHC 33.7 RDW 14.4 Plt Count 132 L D MPV 9.2 D Absolute Neuts (auto) 8.8 H Neutrophils % 86.4 H D Lymphocytes % 5.9 L D Monocytes % 7.1 Eosinophils % 0.2 D Basophils % 0.4 Nucleated RBC % 0 Sodium 138 Potassium 5.6 H Chloride 108 H Carbon Dioxide 24 Anion Gap 6 L BUN 54 H Creatinine 2.1 H Creat Clearance w eGFR 32.49 POC Glucometer 280.02879 Random Glucose 137 H Calcium 7.8 L Phosphorus 4.5 Magnesium 2.2 01/25/18 01/25/18 06:02 10:27 WBC RBC Hgb Hct MCV MCH MCHC RDW Plt Count MPV Absolute Neuts (auto) Neutrophils % Lymphocytes % Monocytes % Eosinophils % Basophils % Nucleated RBC % Sodium Potassium Chloride Carbon Dioxide Anion Gap BUN Creatinine Creat Clearance w eGFR POC Glucometer 164.82465 99.04623 Random Glucose Calcium Phosphorus Magnesium Constitutional: Yes: No Distress, Calm Cardiovascular: Yes: Regular Rate and Rhythm Respiratory: Yes: Diminished Gastrointestinal: Yes: Normal Bowel Sounds, Soft, Abdomen, Obese. No: Tenderness Edema: Yes Edema: LLE: 1+, RLE: 1+ Problem List - Problems (1) CAD (coronary artery disease) Code(s): I25.10 - ATHSCL HEART DISEASE OF [place] CORONARY ARTERY W/O ANG PCTRS (2) CKD (chronic kidney disease) Code(s): N18.9 - CHRONIC KIDNEY DISEASE, UNSPECIFIED (3) Carotid stenosis Code(s): I65.29 - OCCLUSION AND STENOSIS OF UNSPECIFIED CAROTID ARTERY Qualifiers: Laterality: bilateral Qualified Code(s): I65.23 - Occlusion and stenosis of bilateral carotid arteries (4) Dizziness Code(s): R42 - DIZZINESS AND GIDDINESS (5) PVD (peripheral vascular disease) Code(s): I73.9 - PERIPHERAL VASCULAR DISEASE, UNSPECIFIED Assessment/Plan PLAN pt was in ICU for observation post surgery has complete occlusion on right ICA and 99%stenosis of left s/p endarcterectomy Kayexalate renal function - worse - monitor ok to transfer to the floors continue with meds
[2018-01-25] MEDS ORDERED: SODIUM POLYSTYRENE SULFONATE 15 GM/60 ML BOTTLE PO ONE (13:58)
--- NOTE | 2018-01-25 16:42 | PATH ---
Surgical Pathology Report Patient Name: FINA ZHOU Med. Rec. #: [id number] /Age/Gender: 1960 (Age: 57) / M Account: [id number] Location: [facility] MED/SURG Taken: 01/24/2018 Received: 01/24/2018 Reported: 01/25/2018 Physicians: Flash Bundy M.D. Specimen(s) Received PLAQUE Clinical History Edema of lower extremity, lightheadedness, carotid stenosis Final Diagnosis CAROTID, LEFT, PLAQUE, ENDARTERECTOMY: ATHEROMATOUS AND CALCIFIED PLAQUE. Electronically Signed Dorothy Del Valle M.D. Gross Description Received in formalin labeled "plaque" are 2 irregular fragments of white-zeng focally hemorrhagic fibrous to calcified tissue measuring 3 x 2.2 x 1 cm. [employer] Supervisor sections are submitted after brief decalcification in one cassette. MLSZ/01/24/2018 sanariella/01/24/2018
[2018-01-25 17:26] LABS: ANION GAP 7 MMOL/L (8-16); BLOOD UREA NITROGEN 53 mg/dL (7-18); CALCIUM 8.1 mg/dL (8.5-10.1); CHLORIDE 107 mmol/L (98-107); CO2 26 mmol/L (21-32); CREATININE 2.4 mg/dL (0.55-1.3); GLUCOSE,RANDOM 165 mg/dL (74-106); MAGNESIUM 2.2 mg/dL (1.8-2.4); PHOSPHOROUS 4.2 mg/dL (2.5-4.9); POTASSIUM 5.1 mmol/L (3.5-5.1); SODIUM 139 mmol/L (136-145)
[2018-01-25] MEDS ORDERED: ROSUVASTATIN CA 10 MG TABLET (FP) ONE (21:09)
[2018-01-25] MEDS ORDERED: PT OWN MED DRAWER 7, Y5N ONE (21:11)
[2018-01-25] MEDS ORDERED: INSULIN (NOVOLOG) ASPART 100 UNITS/ML 10ML VIAL ONE (21:37)
[2018-01-25] MEDS: ROSUVASTATIN CA 20 MG TABLET (FP) PO SCH (22:07)
[2018-01-25] MEDS: ACETAMINOPHEN 325 MG TABLET (FP) PO PRN (22:08)
[2018-01-25] MEDS: CHLORHEXIDINE GLUCONATE 4% CLEANSER FOR DECOLONIZATION TP SCH (22:33)
[2018-01-26] MEDS: INSULIN SLIDING SCALE (NOVOLOG) 1 VIAL SQ SCH ×4 (06:33→22:32)
[2018-01-26] MEDS ORDERED: INSULIN (NOVOLOG) ASPART 100 UNITS/ML 10ML VIAL ONE ×3 (07:11→16:32)
--- NOTE | 2018-01-26 08:49 | PN ---
Progress Note, Physician Chief Complaint: no distress No CP or SOB - Current Medication List Current Medications: Active Medications Acetaminophen (Tylenol -) 650 mg PO Q6H PRN PRN Reason: PAIN LEVEL 4 - 6 Last Admin: 01/25/18 22:08 Dose: 650 mg Amlodipine Besylate (Norvasc -) 5 mg PO DAILY [facility] Last Admin: 01/25/18 09:03 Dose: 5 mg Aspirin (Asa -) 81 mg PO DAILY [facility] Last Admin: 01/25/18 09:00 Dose: 81 mg Benzocaine/Menthol (Cepacol Lozenge -) 1 each MM PRN PRN PRN Reason: SORE THROAT Carvedilol (Coreg -) 6.25 mg PO BID [facility] Last Admin: 01/25/18 22:07 Dose: 6.25 mg Chlorhexidine Gluconate (Hibiclens For Decolonization -) 1 applic [address] [facility] Last Admin: 01/25/18 22:33 Dose: Not Given Clopidogrel Bisulfate (Plavix -) 75 mg PO DAILY [facility] Last Admin: 01/25/18 09:00 Dose: 75 mg Fentanyl (Sublimaze Injection -) 25 mcg IVPUSH [id number] PRN PRN Reason: PAIN-PACU ORDER X 4 DOSES ONLY Furosemide (Lasix -) 40 mg PO DAILY [facility] Last Admin: 01/25/18 09:00 Dose: 40 mg Heparin Sodium (Porcine) (Heparin -) 5,000 unit SQ BID [facility] Last Admin: 01/25/18 21:31 Dose: 5,000 unit Insulin Aspart (Novolog Vial Sliding Scale -) 1 vial SQ [facility]; Protocol Last Admin: 01/26/18 06:33 Dose: Not Given Mupirocin (Bactroban Ointment (For Decolonization) -) 1 applic NS BID [facility] Stop: 01/29/18 21:59 Last Admin: 01/25/18 21:26 Dose: Not Given Promethazine HCl (Phenergan Injection -) 12.5 mg IVPUSH Q6H PRN PRN Reason: NAUSEA-FOR RESCUE AFTER 15 MIN Rosuvastatin Calcium (Crestor -) 40 mg PO [facility] Last Admin: 01/25/18 22:07 Dose: 40 mg - Objective Vital Signs: Vital Signs Temperature 98.2 F 01/26/18 06:00 Pulse Rate 95 H 01/26/18 06:00 Respiratory Rate 16 01/26/18 06:00 Blood Pressure 122/94 01/26/18 06:00 O2 Sat by Pulse Oximetry (%) 100 01/25/18 09:00 Constitutional: Yes: No Distress Cardiovascular: Yes: Regular Rate and Rhythm Respiratory: Yes: CTA Bilaterally Gastrointestinal: Yes: Soft Edema: Yes Edema: LLE: 1+, RLE: 1+ Neurological: Yes: Alert Labs: CBC, BMP 01/25/18 05:30 01/25/18 16:18 Assessment/Plan Assessment/Plan --Echocardiogram 01/19: LVEF 50-55%, mild inferolateral hypokinesis, mild MR, TR , mild aortic sclerosis --ECG: RBBB, LAFB --Telemetry review: no evidence of high degree AVB since admission --Carotid: occuded R ICA, High grade 99% left ICA. --LE: Duplex- No DVT --CT Head negative for acute intracranial process --troponin negative X2 --cardiac cath 08/16: 2 V CAD- LM 30% distal stenosis, LAD mild diffuse disease, LCx 30-50% mid, 90% distal stenosis, and RCA 100% proximal occlusion s/p sucessful PCI of distal LCx with GHAZAL. 1. Left carotid stenosis POD#2 Left carotid endarterectomy stable CV-mcclain; no sig bleeding noted. 2. Coronary artery disease status post GHAZAL to distal LCx 08/26/2017, pRCA 100% [employer] 3. LV diastolic dysfunction LVEF 50% 4. PAD status post bilateral lower extremity bypass 5. CKD with hyperkalemia on MICHAEL-I since d/terrence, consider re-challenge with ARB once hyperkalemia resolves 6. COPD P: 1. Given recency of GHAZAL will need to continue DAPT post-operatively with aspirin 81mg, plavix 75mg, carvedilol 6.25mg BID, norvasc 5 qd, Crestor 40 qd, Lasix 40 qd. Overall BP trend is at goal of 140<90 2. Monitor post-op Hgb while on DAPT
[2018-01-26] MEDS ORDERED: PHENOL 177 ML SPRAY BOTTLE MM PRN (08:52)
--- NOTE | 2018-01-26 08:55 | PN ---
Progress Note (short form) - Note Progress Note: Pt seen and examined. States he is not feeling well today. Has some pain at incision site. Tolerating PO, reports a persistent sore throat. Voiding without issue. Has been oob to chair. Denies any headaches, dizziness, difficulty with speech, confusion, n/v/d, chest pain, sob. Vital Signs Temp 98.2 F 01/26/18 06:00 Pulse 95 H 01/26/18 06:00 Resp 16 01/26/18 06:00 BP 122/94 01/26/18 06:00 Pulse Ox 100 01/25/18 09:00 Intake & Output 01/25/18 01/25/18 01/26/18 11:59 23:59 11:59 Intake Total 625 Output Total 200 300 Balance 425 -300 Weight 195 lb 4 oz 195 lb 200 lb 1.6 oz Intake: IV 525 Lactated Ringers Solution 525 1,000 ml @ 75 mls/hr IV ASDIR TONYA Rx#:[id number] Oral 100 Output: Urine 200 300 Void 200 300 Other: Voiding Method Urinal Urinal # Unmeasured Voids Void 1 2 Height 5 ft 3 in Body Mass Index (BMI) 34.5 Weight Measurement Method Built in [facility] Built in [facility] CBC, BMP 01/25/18 05:30 01/25/18 16:18 Gen: awake, alert, in nad, alert and oriented x3. Neck: Incision soft, c/d/i, emilie in place. No erythema or drainage. Small palpable hematoma at proximal incision site, no difficulty speaking/breathing. Neuro: alert and cooperative with examination. Speech is fluent. No facial asymmetry, tongue protrudes midline. 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 SILT UE/LE's b/l. B/L les with SCD in place (removed due to patients h/o bypasses b/l). +edema 2+ to b/l le's. Feet warm, well perfused. A/P: 57 y/o M w/ PMHx CAD s/p stents (07/2017), PAD s/p BLE arterial bypass, CVA with residual left-sided weakness, HTN, HLD, DM, CKD, current tobacco abuse admitted 01/19 with intermittent dizziness for 4 months, Carotid ultrasound with known R ICA occlusion and now a worsening L ICA stenosis (99%), now POD 2 from L CEA. BP improved. Pain at incision site and throat soreness. Exam stable -Monitor Bp -Continue frequent neurovascular checks -No scds at this time due to prior b/l bypass -Pain control -Chloroseptic spray ordered d/w attending Dr Humphrey
--- NOTE | 2018-01-26 10:16 | PN ---
Progress Note (short form) - Note Progress Note: patient seen and examined Comfortable chief complaint--soreness of the throat Afebrile denies pain Chart reviewed Vital Signs Temp 98.2 F 01/26/18 06:00 Pulse 95 H 01/26/18 06:00 Resp 16 01/26/18 06:00 BP 122/94 01/26/18 06:00 Pulse Ox 100 01/25/18 09:00 Intake & Output 01/25/18 01/25/18 01/26/18 11:59 23:59 11:59 Intake Total 625 Output Total 200 300 Balance 425 -300 Weight 195 lb 4 oz 195 lb 200 lb 1.6 oz Intake: IV 525 Lactated Ringers Solution 525 1,000 ml @ 75 mls/hr IV ASDIR [facility] Rx#:[id number] Oral 100 Output: Urine 200 300 Void 200 300 Other: Voiding Method Urinal Urinal # Unmeasured Voids Void 1 2 Height 5 ft 3 in Body Mass Index (BMI) 34.5 Weight Measurement Method Built in [facility] Built in [facility] Active Medications Acetaminophen (Tylenol -) 650 mg PO Q6H PRN PRN Reason: PAIN LEVEL 4 - 6 Last Admin: 01/25/18 22:08 Dose: 650 mg Amlodipine Besylate (Norvasc -) 5 mg PO DAILY [facility] Last Admin: 01/25/18 09:03 Dose: 5 mg Aspirin (Asa -) 81 mg PO DAILY [facility] Last Admin: 01/25/18 09:00 Dose: 81 mg Benzocaine/Menthol (Cepacol Lozenge -) 1 each MM PRN PRN PRN Reason: SORE THROAT Carvedilol (Coreg -) 6.25 mg PO BID [facility] Last Admin: 01/25/18 22:07 Dose: 6.25 mg Chlorhexidine Gluconate (Hibiclens For Decolonization -) 1 applic TP HS [facility] Last Admin: 01/25/18 22:33 Dose: Not Given Clopidogrel Bisulfate (Plavix -) 75 mg PO DAILY [facility] Last Admin: 01/25/18 09:00 Dose: 75 mg Furosemide (Lasix -) 40 mg PO DAILY [facility] Last Admin: 01/25/18 09:00 Dose: 40 mg Heparin Sodium (Porcine) (Heparin -) 5,000 unit SQ BID [facility] Last Admin: 01/25/18 21:31 Dose: 5,000 unit Insulin Aspart (Novolog Vial Sliding Scale -) 1 vial SQ ACHS [facility]; Protocol Last Admin: 01/26/18 06:33 Dose: Not Given Mupirocin (Bactroban Ointment (For Decolonization) -) 1 applic NS BID [facility] Stop: 01/29/18 21:59 Last Admin: 01/25/18 21:26 Dose: Not Given Phenol/Menthol (Chloraseptic -) 1 spray MM Q6H PRN PRN Reason: SORE THROAT Promethazine HCl (Phenergan Injection -) 12.5 mg IVPUSH Q6H PRN PRN Reason: NAUSEA-FOR RESCUE AFTER 15 MIN Rosuvastatin Calcium (Crestor -) 40 mg PO HS [facility] Last Admin: 01/25/18 22:07 Dose: 40 mg Tramadol HCl (Ultram -) 25 mg PO Q6H PRN PRN Reason: PAIN LEVEL 6-10 CBC, BMP 01/25/18 05:30 01/25/18 16:18 physical exam Constitutional: Yes: No Distress, Calm neck--supple--- surgical site clean Cardiovascular: Yes: Regular Rate and Rhythm Respiratory: Yes: Diminished Gastrointestinal: Yes: Normal Bowel Sounds, Soft, Abdomen, Obese. No: Tenderness Edema: Yes Edema: LLE: 1+, RLE: 1+ Assessment and plan POD #2 status post: Left CEA coronary artery disease S/P PCI (07/2017) peripheral vascular disease S/P BLE arterial bypass CVA with residual left-sided weakness HTN diabetes hyperlipidemia CKd nicotine dependence continue present care Physical therapy discharge planning Likely will need short-term rehabilitation Problem List - Problems (1) Dizziness Code(s): R42 - DIZZINESS AND GIDDINESS (2) PVD (peripheral vascular disease) Code(s): I73.9 - PERIPHERAL VASCULAR DISEASE, UNSPECIFIED (3) CAD (coronary artery disease) Code(s): I25.10 - ATHSCL HEART DISEASE OF [place] CORONARY ARTERY W/O ANG PCTRS Qualifiers: Coronary Disease-Associated Artery/Lesion type: [place] artery [place] vs. transplanted heart: [place] heart Associated angina: without angina Qualified Code(s): I25.10 - Atherosclerotic heart disease of [place] coronary artery without angina pectoris (4) Anemia Code(s): D64.9 - ANEMIA, UNSPECIFIED (5) CKD (chronic kidney disease) Code(s): N18.9 - CHRONIC KIDNEY DISEASE, UNSPECIFIED Qualifiers: Chronic kidney disease stage: stage 3 (moderate) Qualified Code(s): N18.3 - Chronic kidney disease, stage 3 (moderate)
[2018-01-26] MEDS ORDERED: PT OWN MED DRAWER 7, Y5N ONE (10:38)
[2018-01-26] MEDS: CARVEDILOL 6.25 MG TABLET (FP) PO SCH ×2 (10:53→23:20)
[2018-01-26] MEDS: ASPIRIN 81 MG CHEWABLE TABLETS PO SCH (10:53)
[2018-01-26] MEDS: amLODIPine BESYLATE 5 MG TABLET (FP) PO SCH (10:53)
[2018-01-26] MEDS: CLOPIDOGREL BISULFATE 75 MG TABLET (FP) PO SCH (10:53)
[2018-01-26] MEDS: FUROSEMIDE 40 MG TABLET (FP) PO SCH (10:53)
[2018-01-26] MEDS: MUPIROCIN 2% TOPICAL OINTMENT FOR DECOLONIZATION NS SCH ×2 (10:54→23:19)
[2018-01-26] MEDS: HEPARIN NA (PORCINE) 5,000 UNITS/ML 1ML VIAL SQ SCH ×2 (10:54→23:20)
[2018-01-26] MEDS: traMADol HCL 50 MG TABLET PO PRN ×2 (11:02→23:27)
--- NOTE | 2018-01-26 15:49 | OP ---
DATE OF OPERATION: 01/24/2018 SURGEON: Ze Humphrey M.D. EAR PULL MACHINE OPERATOR: Justin Martins PROCEDURE: Left carotid endarterectomy. PREOPERATIVE DIAGNOSIS: Left carotid stenosis with contralateral occlusion. POSTOPERATIVE DIAGNOSIS: Left carotid stenosis with contralateral occlusion. ANESTHESIA: General. ANESTHESIOLOGIST: jA Valiente M.D. OPERATIVE FINDINGS: There was a large atherosclerotic plaque at the left carotid bifurcation extending into the internal and external carotid branches with superior stenosis. There was redundancy and tortuosity of the distal left internal carotid. OPERATIVE PROCEDURE: Following routine patient identification with side and site verification, general anesthesia was induced. The left neck was prepped with ChloraPrep. Timeout was performed. A skin incision was made along the anterior part of the left sternocleidomastoid extending through the skin and muscle with cautery. The anterior border of the sternocleidomastoid was freed with cautery and the muscle was retracted laterally. The internal jugular vein was dissected along its anterior border. Side branches were ligated and divided. The vein was retracted laterally. The common carotid artery was mobilized and secured at the base of the incision with an umbilical tape. Distal dissection allowed identification of the carotid bifurcation. The external carotid artery was secured with a Vesseloop at its origin. The superior thyroid artery was also secured with a Vesseloop. The hypoglossal nerve was identified and was mobilized by division of overlying vessels. It was necessary to divide the occipital artery to move the nerve cephalad. The distal internal carotid artery was then carefully dissected and secured with a Vesseloop. The patient was systemically heparinized. The internal, external, common carotid arteries were then occluded with Vesseloop and clamps, and an arteriotomy was made from the common extending into the internal carotid to a point distal to atherosclerotic plaque. Backbleeding from the distal internal carotid was pulsatile. A Miller shunt which had been previously filled with heparin solution was then carefully inserted into the distal internal carotid artery and secured with a Jose clamp. It was allowed to back bleed through the side arm and was occluded. The proximal end was placed in the common carotid artery and secured with the umbilical tape. It was flushed through the side arm, and then flow was restored to the internal under direct vision. Endarterectomy was then performed with removal of plaque from the common internal and external branches. Loose medial fibers were removed. Due to the tortuosity and redundancy of the internal carotid, it was shortened by imbricating the posterior wall to exclude a proximal. Running 6-0 Prolene was used for this suture line. The arteriotomy was then closed with a thin collagen coated Dacron patch which was sutured to the arterial davis with running 6-0 Prolene. Prior to completion of this suture line, the shunt was clamped and divided and removed allowing backbleeding and flushing of all branches. Suture line was then completed. Flow was restored first to the external and then the internal carotid artery. Bleeding from suture line was controlled with Surgicel. Evaluation of the handheld Doppler revealed good flow in all branches with no evidence of technical defects. Protamine was administered. When hemostasis was adequate, the wound was irrigated and closed with interrupted suture of 3-0 Vicryl and skin emilie. Sterile dressing was applied, the patient was awakened from anesthesia and found to be intact, neurologic condition, was transported to the recovery room in stable condition. Flash [id number] MTDD
[2018-01-26] MEDS ORDERED: ROSUVASTATIN CA 10 MG TABLET (FP) ONE (23:12)
[2018-01-26] MEDS: ROSUVASTATIN CA 20 MG TABLET (FP) PO SCH (23:20)
[2018-01-26] MEDS: CHLORHEXIDINE GLUCONATE 4% CLEANSER FOR DECOLONIZATION TP SCH (23:22)
[2018-01-27] MEDS: INSULIN SLIDING SCALE (NOVOLOG) 1 VIAL SQ SCH ×5 (06:24→22:33)
[2018-01-27 07:56] LABS: BASO % 0.7 % (0-2.0); EOS % 4.2 % (0-4.5); HEMATOCRIT 23.2 % (35.4-49); HEMOGLOBIN 7.7 GM/dL (11.7-16.9); LYMPH % 15.2 % (8-40); MCH 30.9 pg (25.7-33.7); MEAN CELL VOLUME 93.5 fl (80-96); MONO % 10.6 % (3.8-10.2); NEUT % 69.3 % (42.8-82.8); PLATELET COUNT 168 K/MM3 (134-434); RBC 2.48 M/mm3 (4.00-5.60); RDW 14.1 % (11.9-15.9); WHITE BLOOD COUNT 5.8 K/mm3 (4.0-10.0)
[2018-01-27 08:44] LABS: ALBUMIN 2.6 g/dl (3.4-5.0); ALK PHOS 76 U/L (45-117); ANION GAP 4 MMOL/L (8-16); BILIRUBIN,TOTAL 0.3 mg/dL (0.2-1); BLOOD UREA NITROGEN 48 mg/dL (7-18); CALCIUM 8.1 mg/dL (8.5-10.1); CHLORIDE 107 mmol/L (98-107); CO2 28 mmol/L (21-32); CREATININE 1.8 mg/dL (0.55-1.3); GLUCOSE,RANDOM 113 mg/dL (74-106); POTASSIUM 5.2 mmol/L (3.5-5.1); SGOT/AST 12 U/L (15-37); SGPT/ALT 13 U/L (13-61); SODIUM 139 mmol/L (136-145); TOT PROT 5.5 g/dl (6.4-8.2)
--- NOTE | 2018-01-27 10:17 | PN ---
Progress Note (short form) - Note Progress Note: VSS Neck swelling unchanged. Ecchymosis at base of neck Tongue midline Neuro exam unchanged. Hgb 7.7 imp: Stable post-op course. Slight drop in Hgb, no evidence for active bleeding Plan: Agree with rehab placement Consider transfusion if counts drop further. Problem List - Problems (1) Carotid stenosis Code(s): I65.29 - OCCLUSION AND STENOSIS OF UNSPECIFIED CAROTID ARTERY Qualifiers: Laterality: bilateral Qualified Code(s): I65.23 - Occlusion and stenosis of bilateral carotid arteries
[2018-01-27] MEDS ORDERED: DOCUSATE SODIUM 100 MG CAPSULE (FP) PO PRN (10:18)
--- NOTE | 2018-01-27 10:26 | PN ---
Progress Note (short form) - Note Progress Note: pt seen/ examined comfortable pod # 3 denies pain Vital Signs Temp 98.4 F 01/27/18 07:33 Pulse 86 01/27/18 07:33 Resp 20 01/27/18 07:33 BP 162/75 01/27/18 07:33 Pulse Ox 100 01/25/18 09:00 Intake & Output 01/26/18 01/26/18 01/27/18 11:59 23:59 11:59 Intake Total 600 400 Output Total 350 500 200 Balance -350 100 200 Weight 200 lb 1.6 oz 196 lb 5 oz Intake: IV 0 sl 0 Oral 600 400 Output: Urine 350 500 200 Void 350 500 200 Other: Voiding Method Urinal # Unmeasured Voids Void 2 Weight Measurement Method Built in [facility] Built in [facility] Active Medications Acetaminophen (Tylenol -) 650 mg PO Q6H PRN PRN Reason: PAIN LEVEL 4 - 6 Last Admin: 01/25/18 22:08 Dose: 650 mg Amlodipine Besylate (Norvasc -) 10 mg PO DAILY [facility] Aspirin (Asa -) 81 mg PO DAILY [facility] Last Admin: 01/26/18 10:53 Dose: 81 mg Benzocaine/Menthol (Cepacol Lozenge -) 1 each MM PRN PRN PRN Reason: SORE THROAT Carvedilol (Coreg -) 6.25 mg PO BID [facility] Last Admin: 01/26/18 23:20 Dose: 6.25 mg Chlorhexidine Gluconate (Hibiclens For Decolonization -) 1 applic TP HS [facility] Last Admin: 01/26/18 23:22 Dose: Not Given Clopidogrel Bisulfate (Plavix -) 75 mg PO DAILY [facility] Last Admin: 01/26/18 10:53 Dose: 75 mg Docusate Sodium (Colace -) 100 mg PO Q8H PRN PRN Reason: CONSTIPATION Ferrous Sulfate (Feosol -) 325 mg PO TIDCM [facility] Folic Acid (Folic Acid -) 1 mg PO DAILY [facility] Furosemide (Lasix -) 40 mg PO DAILY [facility] Last Admin: 01/26/18 10:53 Dose: 40 mg Heparin Sodium (Porcine) (Heparin -) 5,000 unit SQ BID [facility] Last Admin: 01/26/18 23:20 Dose: 5,000 unit Insulin Aspart (Novolog Vial Sliding Scale -) 1 vial SQ ACHS [facility]; Protocol Last Admin: 01/27/18 06:24 Dose: Not Given Mupirocin (Bactroban Ointment (For Decolonization) -) 1 applic NS BID [facility] Stop: 01/29/18 21:59 Last Admin: 01/26/18 23:19 Dose: Not Given Phenol/Menthol (Chloraseptic -) 1 spray MM Q6H PRN PRN Reason: SORE THROAT Promethazine HCl (Phenergan Injection -) 12.5 mg IVPUSH Q6H PRN PRN Reason: NAUSEA-FOR RESCUE AFTER 15 MIN Rosuvastatin Calcium (Crestor -) 40 mg PO [facility] Last Admin: 01/26/18 23:20 Dose: 40 mg Tramadol HCl (Ultram -) 25 mg PO Q6H PRN PRN Reason: PAIN LEVEL 6-10 Last Admin: 01/26/18 23:27 Dose: 25 mg CBC, BMP 01/27/18 07:13 01/27/18 07:13 Physical exam Constitutional: Yes: No Distress, Calm. comfortable neck--supple--- surgical site clean Cardiovascular: Yes: Regular Rate and Rhythm Respiratory: Yes: Diminished Gastrointestinal: Yes: Normal Bowel Sounds, Soft, Abdomen, Obese. No: Tenderness Edema: Yes Edema: LLE: 1+, RLE: 1+ Assessment and plan POD #3 status post: Left CEA coronary artery disease S/P PCI (07/2017) peripheral vascular disease S/P BLE arterial bypass CVA with residual left-sided weakness HTN diabetes hyperlipidemia CKd nicotine dependence continue present care Physical therapy h/h - 7.7 pt dont come to office no evidence of bleed check sob will consult gi/ hematology start on feso4 increase norvasc will follow-- Problem List - Problems (1) Dizziness Code(s): R42 - DIZZINESS AND GIDDINESS (2) PVD (peripheral vascular disease) Code(s): I73.9 - PERIPHERAL VASCULAR DISEASE, UNSPECIFIED (3) CAD (coronary artery disease) Code(s): I25.10 - ATHSCL HEART DISEASE OF [place] CORONARY ARTERY W/O ANG PCTRS Qualifiers: Coronary Disease-Associated Artery/Lesion type: [place] artery [place] vs. transplanted heart: [place] heart Associated angina: without angina Qualified Code(s): I25.10 - Atherosclerotic heart disease of [place] coronary artery without angina pectoris (4) Anemia Code(s): D64.9 - ANEMIA, UNSPECIFIED (5) CKD (chronic kidney disease) Code(s): N18.9 - CHRONIC KIDNEY DISEASE, UNSPECIFIED Qualifiers: Chronic kidney disease stage: stage 3 (moderate) Qualified Code(s): N18.3 - Chronic kidney disease, stage 3 (moderate) Problem List - Problems (1) Dizziness Code(s): R42 - DIZZINESS AND GIDDINESS (2) PVD (peripheral vascular disease) Code(s): I73.9 - PERIPHERAL VASCULAR DISEASE, UNSPECIFIED (3) CAD (coronary artery disease) Code(s): I25.10 - ATHSCL HEART DISEASE OF [place] CORONARY ARTERY W/O ANG PCTRS Qualifiers: Coronary Disease-Associated Artery/Lesion type: [place] artery [place] vs. transplanted heart: [place] heart Associated angina: without angina Qualified Code(s): I25.10 - Atherosclerotic heart disease of [place] coronary artery without angina pectoris (4) Anemia Code(s): D64.9 - ANEMIA, UNSPECIFIED (5) CKD (chronic kidney disease) Code(s): N18.9 - CHRONIC KIDNEY DISEASE, UNSPECIFIED Qualifiers: Chronic kidney disease stage: stage 3 (moderate) Qualified Code(s): N18.3 - Chronic kidney disease, stage 3 (moderate)
[2018-01-27] MEDS: FOLIC ACID 1 MG TABLET (FP) PO SCH (11:23)
[2018-01-27] MEDS: amLODIPine BESYLATE 10 MG TABLET (FP) PO SCH (11:23)
[2018-01-27] MEDS: FERROUS SO4 325 MG TABLET (FP) PO SCH ×2 (11:23→17:53)
[2018-01-27] MEDS: CARVEDILOL 6.25 MG TABLET (FP) PO SCH ×3 (11:23→22:33)
[2018-01-27] MEDS: CLOPIDOGREL BISULFATE 75 MG TABLET (FP) PO SCH ×2 (11:23→12:36)
[2018-01-27] MEDS: HEPARIN NA (PORCINE) 5,000 UNITS/ML 1ML VIAL SQ SCH ×3 (11:24→22:32)
[2018-01-27] MEDS: FUROSEMIDE 40 MG TABLET (FP) PO SCH ×2 (11:26→12:35)
[2018-01-27] MEDS: MUPIROCIN 2% TOPICAL OINTMENT FOR DECOLONIZATION NS SCH ×2 (11:27→22:32)
[2018-01-27] MEDS: ASPIRIN 81 MG CHEWABLE TABLETS PO SCH ×2 (11:27→12:35)
[2018-01-27] MEDS: amLODIPine BESYLATE 5 MG TABLET (FP) PO SCH ×2 (11:32→12:36)
--- NOTE | 2018-01-27 12:19 | PN ---
Progress Note, Physician Chief Complaint: Pt A&Ox3; no chest pain or dyspnea; surgical site of LICA endarterectomy "itchy ". History of Present Illness: 57 year old male with a significant past medical history of CAD with stents ( last one in July), HTN, CVA (left side weakness), HLD, CKD, diabetes who presents with lightheadness and nausea at 10pm while he was watching a show at the [employer]. He reports lightheadedness for the last 4 months intermittently but states that he felt like he was going to pass out today and thus activated 911. He reports 1 week of progressive lower extremity edema particularly his left lower extremity. Denies any recent travel or immobility. He admits that he has not taken for of his medications in the last 4 days including Plavix and Lasix. The patient denies any chest pain or shortness of breath. Denies fevers or chills. Denies headache. Denies vomiting or diarrhea. Denies any new focal weakness or numbness. He reports he has been unable to see his primary care physician Dr. Huizar due to insurance issues. - Current Medication List Current Medications: Active Medications Acetaminophen (Tylenol -) 650 mg PO Q6H PRN PRN Reason: PAIN LEVEL 4 - 6 Last Admin: 01/25/18 22:08 Dose: 650 mg Amlodipine Besylate (Norvasc -) 10 mg PO DAILY [facility] Last Admin: 01/27/18 11:23 Dose: 10 mg Aspirin (Asa -) 81 mg PO DAILY [facility] Last Admin: 01/27/18 11:27 Dose: 81 mg Benzocaine/Menthol (Cepacol Lozenge -) 1 each MM PRN PRN PRN Reason: SORE THROAT Carvedilol (Coreg -) 6.25 mg PO BID [facility] Last Admin: 01/27/18 11:23 Dose: 6.25 mg Chlorhexidine Gluconate (Hibiclens For Decolonization -) 1 applic TP HS [facility] Last Admin: 01/26/18 23:22 Dose: Not Given Clopidogrel Bisulfate (Plavix -) 75 mg PO DAILY [facility] Last Admin: 01/27/18 11:23 Dose: 75 mg Docusate Sodium (Colace -) 100 mg PO Q8H PRN PRN Reason: CONSTIPATION Ferrous Sulfate (Feosol -) 325 mg PO TIDCM [facility] Last Admin: 01/27/18 11:23 Dose: 325 mg Folic Acid (Folic Acid -) 1 mg PO DAILY [facility] Last Admin: 01/27/18 11:23 Dose: 1 mg Furosemide (Lasix -) 40 mg PO DAILY [facility] Last Admin: 01/27/18 11:26 Dose: 40 mg Heparin Sodium (Porcine) (Heparin -) 5,000 unit SQ BID [facility] Last Admin: 01/27/18 11:24 Dose: 5,000 unit Insulin Aspart (Novolog Vial Sliding Scale -) 1 vial SQ [facility]; Protocol Last Admin: 01/27/18 11:56 Dose: 4 units Mupirocin (Bactroban Ointment (For Decolonization) -) 1 applic NS BID [facility] Stop: 01/29/18 21:59 Last Admin: 01/27/18 11:27 Dose: Not Given Phenol/Menthol (Chloraseptic -) 1 spray MM Q6H PRN PRN Reason: SORE THROAT Promethazine HCl (Phenergan Injection -) 12.5 mg IVPUSH Q6H PRN PRN Reason: NAUSEA-FOR RESCUE AFTER 15 MIN Rosuvastatin Calcium (Crestor -) 40 mg PO [facility] Last Admin: 01/26/18 23:20 Dose: 40 mg Tramadol HCl (Ultram -) 25 mg PO Q6H PRN PRN Reason: PAIN LEVEL 6-10 Last Admin: 01/26/18 23:27 Dose: 25 mg - Objective Vital Signs: Vital Signs Temperature 98.4 F 01/27/18 07:33 Pulse Rate 86 01/27/18 07:33 Respiratory Rate 20 01/27/18 07:33 Blood Pressure 162/75 01/27/18 07:33 O2 Sat by Pulse Oximetry (%) 100 01/25/18 09:00 Constitutional: Yes: Calm Eyes: Yes: WNL HENT: Yes: WNL Neck: Yes: WNL Cardiovascular: Yes: S1, S2 (split) Respiratory: Yes: Regular Gastrointestinal: Yes: Abdomen, Obese ...Rectal Exam: Yes: Deferred Genitourinary: No: Anuria Musculoskeletal: Yes: Muscle Weakness Extremities: Yes: Cool Edema: LLE: Trace Peripheral Pulses WNL: Yes Integumentary: Yes: Other (LE scars (s/p bypass)) Neurological: Yes: Alert, Oriented, Weakness Psychiatric: Yes: WNL Labs: CBC, BMP 01/27/18 07:13 01/27/18 07:13 Abnormal Lab Results 01/27/18 01/27/18 07:13 07:13 RBC 2.48 L Hgb 7.7 L Hct 23.2 L Monocytes % 10.6 H Potassium 5.2 H Anion Gap 4 L BUN 48 H Creatinine 1.8 H Random Glucose 113 H Calcium 8.1 L AST 12 L Total Protein 5.5 L Albumin 2.6 L Problem List - Problems (1) Anemia Assessment/Plan: Hb 8.8-->7.7 over the past 7 days. s/p L carotid artrery endarterectomy. Code(s): D64.9 - ANEMIA, UNSPECIFIED (2) CAD (coronary artery disease) Assessment/Plan: s/o DE stent 07/2017. Continue present medications, including DAPT with ASA and clopidogrel. Code(s): I25.10 - ATHSCL HEART DISEASE OF [place] CORONARY ARTERY W/O ANG PCTRS Qualifiers: Coronary Disease-Associated Artery/Lesion type: [place] artery [place] vs. transplanted heart: [place] heart Associated angina: without angina Qualified Code(s): I25.10 - Atherosclerotic heart disease of [place] coronary artery without angina pectoris (3) CKD (chronic kidney disease) Code(s): N18.9 - CHRONIC KIDNEY DISEASE, UNSPECIFIED Qualifiers: Chronic kidney disease stage: stage 3 (moderate) Qualified Code(s): N18.3 - Chronic kidney disease, stage 3 (moderate) (4) Dizziness Code(s): R42 - DIZZINESS AND GIDDINESS (5) PVD (peripheral vascular disease) Code(s): I73.9 - PERIPHERAL VASCULAR DISEASE, UNSPECIFIED (6) S/P carotid endarterectomy Assessment/Plan: no disharge or gross bleeding from L surgical site Code(s): Z98.890 - OTHER SPECIFIED POSTPROCEDURAL STATES (7) Diabetes Code(s): E11.9 - TYPE 2 DIABETES MELLITUS WITHOUT COMPLICATIONS Qualifiers: Diabetes mellitus type: type 2 Diabetes mellitus detention insulin use: with detention use Diabetes mellitus complication status: with circulatory complication (8) Diastolic CHF Code(s): I50.30 - UNSPECIFIED DIASTOLIC (CONGESTIVE) HEART FAILURE Qualifiers: Heart failure chronicity: chronic Qualified Code(s): I50.32 - Chronic diastolic (congestive) heart failure (9) HTN (hypertension) Code(s): I10 - ESSENTIAL (PRIMARY) HYPERTENSION Qualifiers: Hypertension type: essential hypertension Qualified Code(s): I10 - Essential (primary) hypertension (10) Hyperkalemia Assessment/Plan: Remains mildly elevated at 5.2; f/u level in am. Unable to start ACEI with this level. Code(s): E87.5 - HYPERKALEMIA (11) Hyperlipidemia Assessment/Plan: LDL 118 mg/dL 08/2017; f/u levels, and keep LDL well below 70 mg/dL with statin. (LFTs WNL). On rosuvastatin 40 mg daily. Code(s): E78.5 - HYPERLIPIDEMIA, UNSPECIFIED Qualifiers: Hyperlipidemia type: pure hypercholesterolemia Qualified Code(s): E78.00 - Pure hypercholesterolemia, unspecified; E78.0 - Pure hypercholesterolemia
[2018-01-27] MEDS ORDERED: INSULIN (NOVOLOG) ASPART 100 UNITS/ML 10ML VIAL ONE (17:58)
--- NOTE | 2018-01-27 18:42 | CONSULT ---
Consult - text type - Consultation Consultation Note: This is a 57 yo noncompliant M with PMH of CAD s/p stents GHAZAL, PAD s/p b/l LE bypass, HTN, CVA (residual left side weakness), HLD, DM, CKD who who initially presented with lightheadedness and near syncope. Upon further workup with carotid US, was found to have complete R ICA blockage and 99% L ICA occlusion. He is now POD 0 s/p L endarterectomy by Dr Humphrey, . Patient is afebrile and hemodynamically stable. complains of mild L sided neck pain, denies cp, h/a , dizziness, new visual changes or new focal neuro deficits. PHYSICAL EXAMINATION Last Vital Signs Temp Pulse Resp BP Pulse Ox 98.6 F 84 18 123/56 L 100 01/27/18 15:27 01/27/18 15:27 01/27/18 15:01/27/18 15:01/25/18 09:00 Cor: RSR, No murmurs, No gallops Lungs: Clear to P&A Abd: Soft, Normal bowel sounds, No organomegaly Ext:No significant edema Skin: No rashes, Integument intact Abnormal Lab Results 01/27/18 01/27/18 07:13 07:13 RBC 2.48 L Hgb 7.7 L Hct 23.2 L Monocytes % 10.6 H Potassium 5.2 H Anion Gap 4 L BUN 48 H Creatinine 1.8 H Random Glucose 113 H Calcium 8.1 L AST 12 L Total Protein 5.5 L Albumin 2.6 L Active Medications Generic Name Dose Route Start Last Admin Trade Name Freq PRN Reason Stop Dose Admin Acetaminophen 650 mg 01/25/18 21:48 01/25/18 22:08 Tylenol - PO 650 mg Q6H PRN Administration PAIN LEVEL 4 - 6 Amlodipine Besylate 10 mg 01/27/18 10:30 01/27/18 11:23 Norvasc - PO 10 mg DAILY [facility] Administration Aspirin 81 mg 01/25/18 10:00 01/27/18 11:27 Asa - PO 81 mg DAILY [facility] Administration Benzocaine/Menthol 1 each 01/25/18 08:48 Cepacol Lozenge - MM PRN PRN SORE THROAT Carvedilol 6.25 mg 01/24/18 22:00 01/27/18 11:23 Coreg - PO 6.25 mg BID [facility] Administration Chlorhexidine Gluconate 1 applic 01/24/18 22:00 01/26/18 23:22 Hibiclens For Decolonization - TP Not Given HS [facility] Clopidogrel Bisulfate 75 mg 01/25/18 10:00 01/27/18 11:23 Plavix - PO 75 mg DAILY [facility] Administration Docusate Sodium 100 mg 01/27/18 10:18 Colace - PO Q8H PRN CONSTIPATION Ferrous Sulfate 325 mg 01/27/18 12:00 01/27/18 17:53 Feosol - PO 325 mg TIDCM [facility] Administration Folic Acid 1 mg 01/27/18 10:30 01/27/18 11:23 Folic Acid - PO 1 mg DAILY [facility] Administration Furosemide 40 mg 01/25/18 10:00 01/27/18 11:26 Lasix - PO 40 mg DAILY [facility] Administration Heparin Sodium (Porcine) 5,000 unit 01/24/18 22:00 01/27/18 11:24 Heparin - SQ 5,000 unit BID [facility] Administration Insulin Aspart 1 vial 01/24/18 16:30 01/27/18 17:53 Novolog Vial Sliding Scale - SQ 2 units ACHS [facility] Administration Protocol Mupirocin 1 applic 01/24/18 22:00 01/27/18 11:27 Bactroban Ointment (For Decolonization) - NS 01/29/18 21:59 Not Given BID [facility] Phenol/Menthol 1 spray 01/26/18 08:52 Chloraseptic - MM Q6H PRN SORE THROAT Promethazine HCl 12.5 mg 01/24/18 11:59 Phenergan Injection - IVPUSH Q6H PRN NAUSEA-FOR RESCUE AFTER 15 MIN Rosuvastatin Calcium 40 mg 01/24/18 22:00 01/26/18 23:20 Crestor - PO 40 mg HS [facility] Administration Tramadol HCl 25 mg 01/26/18 09:06 01/26/18 23:27 Ultram - PO 25 mg Q6H PRN Administration PAIN LEVEL 6-10 A/P s/p L ICA endarterectomy hyprkalemia 5.2 CAD s/p GHAZAL HTN CVA HLD DM CKD Anemia -- multifactorial anemia of chronic disease +/- gi losses check iron studies/ferritin/B12/folate
[2018-01-27] MEDS ORDERED: ROSUVASTATIN CA 10 MG TABLET (FP) ONE (20:12)
[2018-01-27] MEDS: CHLORHEXIDINE GLUCONATE 4% CLEANSER FOR DECOLONIZATION TP SCH (22:33)
[2018-01-27] MEDS: ROSUVASTATIN CA 20 MG TABLET (FP) PO SCH (22:34)
[2018-01-28] MEDS: INSULIN SLIDING SCALE (NOVOLOG) 1 VIAL SQ SCH ×4 (07:05→21:47)
[2018-01-28 08:19] LABS: BASO % 0.6 % (0-2.0); EOS % 4.1 % (0-4.5); HEMATOCRIT 23.4 % (35.4-49); HEMOGLOBIN 7.9 GM/dL (11.7-16.9); LYMPH % 16.5 % (8-40); MCH 31.6 pg (25.7-33.7); MCHC 33.8 g/dl (32.0-35.9); MEAN CELL VOLUME 93.5 fl (80-96); MEAN PLT VOLUME 8.2 fl (7.5-11.1); MONO % 9.8 % (3.8-10.2); PLATELET COUNT 178 K/MM3 (134-434); RDW 13.9 % (11.9-15.9); WHITE BLOOD COUNT 5.7 K/mm3 (4.0-10.0)
--- NOTE | 2018-01-28 09:33 | CON.GI ---
Consult Consult Specialty:: GI Referred by:: Dr Ariadna Huizar Reason for Consultation:: Hgb 7.9 - History of Present Illness Chief Complaint: 57 y.o. M with DM, CAD, chronic anemia, moderate renal insufficiency, peripheral vascular disease, brought to ER for dizziness. History of Present Illness: He underwent carotid endarectomy this admission. Hgb has dropped slightly since admission, is 7.9 today; it has been this level in the past year. Prior workup of his anemia has included absence of M-spike on electrophoresis, normal ferritins, borderline low B12 level. He had EGD and colonoscopy on 04/21/17; EGD was negative, colonoscopy only showed diverticulosis, no polyps. There is a past history of adenomas and a maternal history of colon cancer. He now is on dual antiplatelet therapy after the recent endarterectomy. 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, Other (arterial insufficiency s/p left fem -tibial bypass- 2013, rt fem-pop bypass- 2016) Cardio/Vascular: Yes: CAD, CHF, HTN, Hyperlipdemia, Other (PAD) Pulmonary: Yes: COPD Renal/: Yes: Renal Inusuff Psych: Yes: Anxiety Endocrine: Yes: Diabetes Mellitus - Past Surgical History Past Surgical History: Yes: Bypass, Carotid Endarterectomy, Stent - Alcohol/Substance Use Hx Alcohol Use: No History of Substance Use: reports: None - Smoking History Smoking history: Current every day smoker Have you smoked in the past 12 months: Yes Aproximately how many cigarettes per day: 2 - Social History ADL: Independent 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 History of Recent Travel: No Home Medications - Allergies Allergies/Adverse Reactions: Allergies Allergy/AdvReac Type Severity Reaction Status Date / Time No Known Drug Allergies Allergy Verified 01/01/18 02:36 - Home Medications Home Medications: Ambulatory Orders Acetaminophen [Tylenol .Regular Strength -] 650 mg PO Q6H PRN tablet 09/18/17 Aspirin [ASA -] 81 mg PO DAILY tab.chew 09/18/17 Amlodipine Besylate [Norvasc -] 5 mg PO DAILY #30 tablet 10/15/17 Atorvastatin Ca [Lipitor] 20 mg PO HS #30 tablet 10/15/17 Clopidogrel Bisulfate [Plavix -] 75 mg PO DAILY #30 tablet 10/15/17 Furosemide [Lasix -] 40 mg PO DAILY #90 tablet 10/15/17 Glipizide [Glipizide ER] 5 mg PO DAILY #30 tab.er.24 10/15/17 Tamsulosin HCl [Flomax -] 0.8 mg PO DAILY@0830 #30 tab 10/15/17 Family Disease History - Family Disease History Family Disease History: Other: Father ( 62: lung ca), Mother ( 72: colon cancer), Sister (1, healthy) Review of Systems - Review of Systems Neurological: reports: Dizziness Physical Exam-GI Vital Signs: Vital Signs Temperature 98.1 F 01/28/18 07:29 Pulse Rate 96 H 01/28/18 07:29 Respiratory Rate 20 01/28/18 07:29 Blood Pressure 157/69 01/28/18 07:29 O2 Sat by Pulse Oximetry (%) 100 01/25/18 09:00 Constitutional: Yes: Obese ...Rectal Exam: Yes: Deferred Edema: LLE: 3+, RLE: 1+ Neurological: Yes: Weakness (LUE weakness) ...Motor Strength: LUE (weakness) Labs: CBC, BMP 01/28/18 07:00 Problem List - Problems (1) Anemia Code(s): D64.9 - ANEMIA, UNSPECIFIED Qualifiers: Anemia type: unspecified type Qualified Code(s): D64.9 - Anemia, unspecified Assessment/Plan Pt with chronic anemia, investigated in the past serologically and with endoscopy. No indication that this is a chronic blood loss anemia; this is not a microcytic anemia, the ferritins have been well in the normal range. Obviously stopping his antiplatelet therapy at this time would pose an unacceptable risk of thrombosis to his fresh endarectomy, and should only be done if he has a life-threatening major bleed. Unfortunately he has been generally noncompliant with medical advice; I tried to talk to him about smoking cessation today and he is not receptive. I will defer to the hematology sales consultant as to whether a bone marrow aspiration might be helpful.
[2018-01-28 10:08] LABS: ALBUMIN 2.6 g/dl (3.4-5.0); ALK PHOS 79 U/L (45-117); ANION GAP 9 MMOL/L (8-16); BILIRUBIN,TOTAL 0.4 mg/dL (0.2-1); BLOOD UREA NITROGEN 47 mg/dL (7-18); CALCIUM 8.6 mg/dL (8.5-10.1); CHLORIDE 107 mmol/L (98-107); CHOLESTEROL 95 mg/dL (50-200); CO2 23 mmol/L (21-32); CREATININE 1.9 mg/dL (0.55-1.3); GLUCOSE,RANDOM 103 mg/dL (74-106); HDL CHOLESTEROL 37 mg/dL (40-60); SGOT/AST 11 U/L (15-37); SGPT/ALT 14 U/L (13-61); SODIUM 139 mmol/L (136-145); TOT PROT 5.6 g/dl (6.4-8.2); TRIGLYCERIDES 125 mg/dL (0-150)
[2018-01-28] MEDS ORDERED: PT OWN MED DRAWER 7, Y5N ONE (10:13)
[2018-01-28] MEDS: CLOPIDOGREL BISULFATE 75 MG TABLET (FP) PO SCH (10:18)
[2018-01-28] MEDS: traMADol HCL 50 MG TABLET PO PRN (10:18)
[2018-01-28] MEDS: FERROUS SO4 325 MG TABLET (FP) PO SCH ×3 (10:18→17:51)
[2018-01-28] MEDS: FUROSEMIDE 40 MG TABLET (FP) PO SCH (10:19)
[2018-01-28] MEDS: FOLIC ACID 1 MG TABLET (FP) PO SCH (10:19)
[2018-01-28] MEDS: amLODIPine BESYLATE 10 MG TABLET (FP) PO SCH (10:19)
[2018-01-28] MEDS: CARVEDILOL 6.25 MG TABLET (FP) PO SCH ×2 (10:19→21:48)
[2018-01-28] MEDS: ASPIRIN 81 MG CHEWABLE TABLETS PO SCH (10:19)
[2018-01-28] MEDS: MUPIROCIN 2% TOPICAL OINTMENT FOR DECOLONIZATION NS SCH ×2 (10:20→21:48)
[2018-01-28] MEDS: HEPARIN NA (PORCINE) 5,000 UNITS/ML 1ML VIAL SQ SCH ×2 (10:20→21:47)
--- NOTE | 2018-01-28 14:14 | PN ---
Progress Note (short form) - Note Progress Note: pod # 4 comfortable gi/ hematology consults noted/ appreciated denies pain Vital Signs Temp 98.1 F 01/28/18 07:29 Pulse 96 H 01/28/18 07:29 Resp 20 01/28/18 07:29 BP 157/69 01/28/18 07:29 Pulse Ox 97 01/28/18 09:00 Intake & Output 01/27/18 01/28/18 01/28/18 23:59 11:59 23:59 Intake Total 600 380 Output Total 300 400 Balance 300 -20 Weight 199 lb 5 oz Intake: IV 200 sl 200 Oral 400 380 Output: Urine 300 400 Void 300 400 Other: Voiding Method Urinal Urinal Bowel Movement No Active Medications Acetaminophen (Tylenol -) 650 mg PO Q6H PRN PRN Reason: PAIN LEVEL 4 - 6 Last Admin: 01/25/18 22:08 Dose: 650 mg Amlodipine Besylate (Norvasc -) 10 mg PO DAILY [facility] Last Admin: 01/28/18 10:19 Dose: 10 mg Aspirin (Asa -) 81 mg PO DAILY [facility] Last Admin: 01/28/18 10:19 Dose: 81 mg Benzocaine/Menthol (Cepacol Lozenge -) 1 each MM PRN PRN PRN Reason: SORE THROAT Carvedilol (Coreg -) 6.25 mg PO BID [facility] Last Admin: 01/28/18 10:19 Dose: 6.25 mg Chlorhexidine Gluconate (Hibiclens For Decolonization -) 1 applic TP HS [facility] Last Admin: 01/27/18 22:33 Dose: Not Given Clopidogrel Bisulfate (Plavix -) 75 mg PO DAILY [facility] Last Admin: 01/28/18 10:18 Dose: 75 mg Docusate Sodium (Colace -) 100 mg PO Q8H PRN PRN Reason: CONSTIPATION Ferrous Sulfate (Feosol -) 325 mg PO TIDCM [facility] Last Admin: 01/28/18 14:05 Dose: 325 mg Folic Acid (Folic Acid -) 1 mg PO DAILY [facility] Last Admin: 01/28/18 10:19 Dose: 1 mg Furosemide (Lasix -) 40 mg PO DAILY [facility] Last Admin: 01/28/18 10:19 Dose: 40 mg Heparin Sodium (Porcine) (Heparin -) 5,000 unit SQ BID [facility] Last Admin: 01/28/18 10:20 Dose: 5,000 unit Insulin Aspart (Novolog Vial Sliding Scale -) 1 vial SQ ACHS [facility]; Protocol Last Admin: 01/28/18 11:58 Dose: 4 units Mupirocin (Bactroban Ointment (For Decolonization) -) 1 applic NS BID [facility] Stop: 01/29/18 21:59 Last Admin: 01/28/18 10:20 Dose: Not Given Phenol/Menthol (Chloraseptic -) 1 spray MM Q6H PRN PRN Reason: SORE THROAT Promethazine HCl (Phenergan Injection -) 12.5 mg IVPUSH Q6H PRN PRN Reason: NAUSEA-FOR RESCUE AFTER 15 MIN Rosuvastatin Calcium (Crestor -) 40 mg PO HS [facility] Last Admin: 01/27/18 22:34 Dose: 40 mg Tramadol HCl (Ultram -) 25 mg PO Q6H PRN PRN Reason: PAIN LEVEL 6-10 Last Admin: 01/28/18 10:18 Dose: 25 mg CBC, BMP 01/28/18 07:00 01/28/18 06:45 Physical exam Constitutional: Yes: No Distress, Calm. comfortable neck--supple--- surgical site clean Cardiovascular: Yes: Regular Rate and Rhythm Respiratory: Yes: Diminished Gastrointestinal: Yes: Normal Bowel Sounds, Soft, Abdomen, Obese. No: Tenderness Edema: Yes Edema: LLE: 1+, RLE: 1+ Assessment and plan POD #4 status post: Left CEA coronary artery disease S/P PCI (07/2017) peripheral vascular disease S/P BLE arterial bypass CVA with residual left-sided weakness HTN diabetes hyperlipidemia CKd nicotine dependence continue present care Physical therapy h/h - stable stable d/c planning likely tomorrow for str pt in agreement Problem List - Problems (1) Dizziness Code(s): R42 - DIZZINESS AND GIDDINESS (2) PVD (peripheral vascular disease) Code(s): I73.9 - PERIPHERAL VASCULAR DISEASE, UNSPECIFIED (3) CAD (coronary artery disease) Code(s): I25.10 - ATHSCL HEART DISEASE OF [place] CORONARY ARTERY W/O ANG PCTRS Qualifiers: Coronary Disease-Associated Artery/Lesion type: [place] artery [place] vs. transplanted heart: [place] heart Associated angina: without angina Qualified Code(s): I25.10 - Atherosclerotic heart disease of [place] coronary artery without angina pectoris (4) Anemia Code(s): D64.9 - ANEMIA, UNSPECIFIED Qualifiers: Anemia type: unspecified type Qualified Code(s): D64.9 - Anemia, unspecified (5) CKD (chronic kidney disease) Code(s): N18.9 - CHRONIC KIDNEY DISEASE, UNSPECIFIED Qualifiers: Chronic kidney disease stage: stage 3 (moderate) Qualified Code(s): N18.3 - Chronic kidney disease, stage 3 (moderate)
[2018-01-28] MEDS ORDERED: INSULIN (NOVOLOG) ASPART 100 UNITS/ML 10ML VIAL ONE (18:22)
[2018-01-28] MEDS: ROSUVASTATIN CA 20 MG TABLET (FP) PO SCH (21:48)
[2018-01-28] MEDS: CHLORHEXIDINE GLUCONATE 4% CLEANSER FOR DECOLONIZATION TP SCH (21:49)
[2018-01-29] MEDS: INSULIN SLIDING SCALE (NOVOLOG) 1 VIAL SQ SCH ×4 (06:30→22:10)
[2018-01-29] MEDS ORDERED: INSULIN (NOVOLOG) ASPART 100 UNITS/ML 10ML VIAL ONE ×3 (07:18→21:59)
[2018-01-29] MEDS ORDERED: PROMETHAZINE HCL 25 MG/1 ML VIAL IVPUSH PRN (07:57)
[2018-01-29] MEDS ORDERED: BENZOCAINE/MENTH/CETYLPYRD CL 1 EACH LOZENGE MM PRN (07:57)
[2018-01-29] MEDS: FERROUS SO4 325 MG TABLET (FP) PO SCH ×3 (08:38→17:39)
--- NOTE | 2018-01-29 08:55 | PN ---
Progress Note, Physician Chief Complaint: sitting in chair, no acute distress Denies chest pain and SOB No palps. No sig bleeding. - Current Medication List Current Medications: Active Medications Acetaminophen (Tylenol -) 650 mg PO Q6H PRN PRN Reason: PAIN LEVEL 4 - 6 Last Admin: 01/25/18 22:08 Dose: 650 mg Amlodipine Besylate (Norvasc -) 10 mg PO DAILY [facility] Last Admin: 01/28/18 10:19 Dose: 10 mg Aspirin (Asa -) 81 mg PO DAILY [facility] Benzocaine/Menthol (Cepacol Lozenge -) 1 each MM PRN PRN PRN Reason: SORE THROAT Carvedilol (Coreg -) 6.25 mg PO BID [facility] Clopidogrel Bisulfate (Plavix -) 75 mg PO DAILY [facility] Docusate Sodium (Colace -) 100 mg PO Q8H PRN PRN Reason: CONSTIPATION Ferrous Sulfate (Feosol -) 325 mg PO TIDCM [facility] Last Admin: 01/29/18 08:38 Dose: 325 mg Folic Acid (Folic Acid -) 1 mg PO DAILY [facility] Last Admin: 01/28/18 10:19 Dose: 1 mg Furosemide (Lasix -) 40 mg PO DAILY [facility] Heparin Sodium (Porcine) (Heparin -) 5,000 unit SQ BID [facility] Insulin Aspart (Novolog Vial Sliding Scale -) 1 vial SQ ACHS [facility]; Protocol Phenol/Menthol (Chloraseptic -) 1 spray MM Q6H PRN PRN Reason: SORE THROAT Promethazine HCl (Phenergan Injection -) 12.5 mg IVPUSH Q6H PRN PRN Reason: NAUSEA-FOR RESCUE AFTER 15 MIN Rosuvastatin Calcium (Crestor -) 40 mg PO HS [facility] Tramadol HCl (Ultram -) 25 mg PO Q6H PRN PRN Reason: PAIN LEVEL 6-10 Last Admin: 01/28/18 10:18 Dose: 25 mg - Objective Vital Signs: Vital Signs Temperature 98.5 F 01/29/18 06:32 Pulse Rate 85 01/29/18 06:32 Respiratory Rate 20 01/29/18 06:32 Blood Pressure 148/67 01/29/18 06:32 O2 Sat by Pulse Oximetry (%) 97 01/28/18 21:00 Constitutional: Yes: No Distress Neck: Yes: Other (Left surgical incision, mildly edematous- no bleeeding.) Cardiovascular: Yes: Regular Rate and Rhythm Respiratory: Yes: CTA Bilaterally Gastrointestinal: Yes: Soft Edema: Yes Edema: LLE: 1+, RLE: 1+ Neurological: Yes: Alert, Oriented Labs: CBC, BMP 01/28/18 07:00 01/28/18 06:45 Laboratory Tests 01/25/18 01/28/18 05:30 07:00 WBC 10.2 H 5.7 Hgb 7.9 L Plt Count 178 - ....Imaging EKG: Image Reviewed Assessment/Plan Assessment/Plan --Echocardiogram 01/19: LVEF 50-55%, mild inferolateral hypokinesis, mild MR, TR , mild aortic sclerosis --ECG: RBBB, LAFB --Telemetry review: no evidence of high degree AVB since admission --Carotid: occuded R ICA, High grade 99% left ICA. --LE: Duplex- No DVT --CT Head negative for acute intracranial process --troponin negative X2 --cardiac cath 08/16: 2 V CAD- LM 30% distal stenosis, LAD mild diffuse disease, LCx 30-50% mid, 90% distal stenosis, and RCA 100% proximal occlusion s/p sucessful PCI of distal LCx with GHAZAL. 1. Left carotid stenosis s/p left carotid endarterectomy stable CV-mcclain; no sig bleeding noted. 2. Coronary artery disease status post GHAZAL to distal LCx 08/26/2017, pRCA 100% DREDGEMASTER; ASA and Plavix continued. 3. LV diastolic dysfunction LVEF 50% 4. PAD status post bilateral lower extremity bypass 5. CKD with hyperkalemia on MICHAEL-I since d/terrence, consider re-challenge with ARB once hyperkalemia resolves 6. COPD
[2018-01-29] MEDS ORDERED: PT OWN MED DRAWER 7, Y5N ONE ×2 (10:48→21:32)
[2018-01-29] MEDS: FUROSEMIDE 40 MG TABLET (FP) PO SCH (10:50)
[2018-01-29] MEDS: CARVEDILOL 6.25 MG TABLET (FP) PO SCH ×2 (10:50→21:35)
[2018-01-29] MEDS: ASPIRIN 81 MG CHEWABLE TABLETS PO SCH (10:50)
[2018-01-29] MEDS: CLOPIDOGREL BISULFATE 75 MG TABLET (FP) PO SCH (10:50)
[2018-01-29] MEDS: amLODIPine BESYLATE 10 MG TABLET (FP) PO SCH (10:50)
[2018-01-29] MEDS: HEPARIN NA (PORCINE) 5,000 UNITS/ML 1ML VIAL SQ SCH ×2 (10:50→21:35)
[2018-01-29] MEDS: FOLIC ACID 1 MG TABLET (FP) PO SCH (10:50)
--- NOTE | 2018-01-29 12:39 | DS ---
Physical Examination Vital Signs: Vital Signs Temperature 98.8 F 01/29/18 10:00 Pulse Rate 81 01/29/18 10:00 Respiratory Rate 20 01/29/18 10:00 Blood Pressure 162/67 01/29/18 10:00 O2 Sat by Pulse Oximetry (%) 98 01/29/18 09:00 Findings/Remarks: feels ok sitting in chair no new issues Constitutional: Yes: No Distress, Calm Eyes: Yes: Conjunctiva Clear Neck: Yes: Supple, Other (surgical site clean) Cardiovascular: Yes: Regular Rate and Rhythm Respiratory: Yes: Diminished Gastrointestinal: Yes: Soft Edema: LLE: 1+, RLE: 1+ Neurological: Yes: Alert Psychiatric: Yes: Alert Labs: CBC, BMP 01/28/18 07:00 01/28/18 06:45 Discharge Summary Reason For Visit: EDEMA OF LOWER EXTREMITY/LIGHTHEADEDNESS Current Active Problems Anemia (Acute) CAD (coronary artery disease) (Acute) CKD (chronic kidney disease) (Acute) Carotid stenosis (Acute) Carotid stenosis, left (Acute) Dizziness (Acute) Leg edema (Acute) Lightheadedness (Acute) PVD (peripheral vascular disease) (Acute) S/P carotid endarterectomy (Acute) Hospital Course: 57 year old male with a significant past medical history of CAD with stents ( last one in July), HTN, CVA (left side weakness), HLD, CKD, diabetes who presents with lightheadness and nausea at 10pm while he was watching a show at the [employer]. He reports lightheadedness for the last 4 months intermittently but states that he felt like he was going to pass out work up showed occluded right carotid and 99 percent left Underwent left CE now stable cardiology also followed d/c to skilled nursing meds reconcilled pt also counselled for smoking cessation dont want patch likely d/c today -- str- discussed with nursing staff d/c time 30 min in examining/ documenting and coordating care. Condition: Stable - Instructions [facility] - Home Medications Comprehensive Discharge Medication List: Ambulatory Orders Acetaminophen [Tylenol .Regular Strength -] 650 mg PO Q6H PRN tablet 09/18/17 Aspirin [ASA -] 81 mg PO DAILY tab.chew 09/18/17 Clopidogrel Bisulfate [Plavix -] 75 mg PO DAILY #30 tablet 10/15/17 Furosemide [Lasix -] 40 mg PO DAILY #90 tablet 10/15/17 Glipizide [Glipizide ER] 5 mg PO DAILY #30 tab.er.24 10/15/17 Tamsulosin HCl [Flomax -] 0.8 mg PO DAILY@0830 #30 tab 10/15/17 Acetaminophen [Tylenol .Regular Strength -] 650 mg PO Q6H PRN tablet 01/29/18 Amlodipine Besylate [Norvasc -] 10 mg PO DAILY tablet 01/29/18 Carvedilol [Coreg -] 6.25 mg PO BID tablet 01/29/18 Chlorhexidine Gluconate [Hibiclens For Decolonization -] 1 applic TP HS bottle 01/29/18 Docusate Sodium [Colace -] 100 mg PO Q8H PRN capsule 01/29/18 Ferrous Sulfate [Feosol] 325 mg PO TIDCM ud 01/29/18 Folic Acid - 1 mg PO DAILY tablet 01/29/18 Furosemide [Lasix -] 40 mg PO DAILY tablet 01/29/18 Heparin - 5,000 unit SQ BID vial 01/29/18 Phenol [Chloraseptic -] 1 spray MM Q6H PRN bottle 01/29/18 Rosuvastatin [Crestor -] 40 mg PO HS tablet 01/29/18 traMADol HCL [Ultram -] 25 mg PO Q6H PRN #30 tablet MDD 4 01/29/18
[2018-01-29] MEDS ORDERED: ROSUVASTATIN CA 20 MG TABLET (FP) PO SCH (22:00)
[2018-01-29] MEDS: ACETAMINOPHEN 325 MG TABLET (FP) PO PRN (23:34)
[2018-01-30] MEDS: INSULIN SLIDING SCALE (NOVOLOG) 1 VIAL SQ SCH ×3 (06:11→16:35)
--- NOTE | 2018-01-30 09:13 | PN ---
Progress Note, Physician - Current Medication List Current Medications: Active Medications Acetaminophen (Tylenol -) 650 mg PO Q6H PRN PRN Reason: PAIN LEVEL 4 - 6 Last Admin: 01/29/18 23:34 Dose: 650 mg Amlodipine Besylate (Norvasc -) 10 mg PO DAILY [facility] Last Admin: 01/29/18 10:50 Dose: 10 mg Aspirin (Asa -) 81 mg PO DAILY [facility] Last Admin: 01/29/18 10:50 Dose: 81 mg Benzocaine/Menthol (Cepacol Lozenge -) 1 each MM PRN PRN PRN Reason: SORE THROAT Last Admin: 01/30/18 02:47 Dose: 1 each Carvedilol (Coreg -) 6.25 mg PO BID [facility] Last Admin: 01/29/18 21:35 Dose: 6.25 mg Clopidogrel Bisulfate (Plavix -) 75 mg PO DAILY [facility] Last Admin: 01/29/18 10:50 Dose: 75 mg Docusate Sodium (Colace -) 100 mg PO Q8H PRN PRN Reason: CONSTIPATION Ferrous Sulfate (Feosol -) 325 mg PO TIDCM [facility] Last Admin: 01/29/18 17:39 Dose: 325 mg Folic Acid (Folic Acid -) 1 mg PO DAILY [facility] Last Admin: 01/29/18 10:50 Dose: 1 mg Furosemide (Lasix -) 40 mg PO DAILY [facility] Last Admin: 01/29/18 10:50 Dose: 40 mg Heparin Sodium (Porcine) (Heparin -) 5,000 unit SQ BID [facility] Last Admin: 01/29/18 21:35 Dose: 5,000 unit Insulin Aspart (Novolog Vial Sliding Scale -) 1 vial SQ [facility]; Protocol Last Admin: 01/30/18 06:11 Dose: Not Given Phenol/Menthol (Chloraseptic -) 1 spray MM Q6H PRN PRN Reason: SORE THROAT Promethazine HCl (Phenergan Injection -) 12.5 mg IVPUSH Q6H PRN PRN Reason: NAUSEA-FOR RESCUE AFTER 15 MIN Rosuvastatin Calcium (Crestor -) 40 mg PO HS [facility] Last Admin: 01/29/18 21:35 Dose: 40 mg - Objective Vital Signs: Vital Signs Temperature 97.8 F 01/30/18 06:00 Pulse Rate 82 01/30/18 06:00 Respiratory Rate 20 01/30/18 06:00 Blood Pressure 148/69 01/30/18 06:00 O2 Sat by Pulse Oximetry (%) 97 01/29/18 21:00 Labs: CBC, BMP 01/28/18 07:00 01/28/18 06:45 Assessment/Plan 1. Left carotid stenosis s/p left carotid endarterectomy stable CV-mcclain; no sig bleeding noted. 2. Coronary artery disease status post GHAZAL to distal LCx 08/26/2017, pRCA 100% [employer]; ASA and Plavix continued. 3. LV diastolic dysfunction LVEF 50% 4. PAD status post bilateral lower extremity bypass 5. CKD with hyperkalemia on MICHAEL-I since d/terrence, consider re-challenge with ARB once hyperkalemia resolves 6. COPD REC: 1. Remains stable post op with no CV complaints. 2. Continue current meds, d/c planning
[2018-01-30] MEDS: FUROSEMIDE 40 MG TABLET (FP) PO SCH (09:27)
[2018-01-30] MEDS: CLOPIDOGREL BISULFATE 75 MG TABLET (FP) PO SCH (09:27)
[2018-01-30] MEDS: FOLIC ACID 1 MG TABLET (FP) PO SCH (09:27)
[2018-01-30] MEDS: HEPARIN NA (PORCINE) 5,000 UNITS/ML 1ML VIAL SQ SCH (09:27)
[2018-01-30] MEDS: CARVEDILOL 6.25 MG TABLET (FP) PO SCH (09:27)
[2018-01-30] MEDS: ASPIRIN 81 MG CHEWABLE TABLETS PO SCH (09:27)
[2018-01-30] MEDS: FERROUS SO4 325 MG TABLET (FP) PO SCH ×3 (09:27→16:37)
[2018-01-30] MEDS: amLODIPine BESYLATE 10 MG TABLET (FP) PO SCH (09:27)
--- NOTE | 2018-01-30 11:15 | PN ---
Progress Note (short form) - Note Progress Note: Vital Signs - 24 hr Feels itchy - at the surgical site No pain no SOB 01/29/18 01/29/18 01/29/18 13:40 16:30 21:00 Temperature 98.7 F 98.3 F 98.7 F Pulse Rate 93 H 89 95 H Respiratory 20 18 18 Rate Blood Pressure 147/62 145/61 103/61 O2 Sat by Pulse 97 Oximetry (%) 01/29/18 01/30/18 22:10 06:00 Temperature 97.8 F Pulse Rate 82 Respiratory 20 Rate Blood Pressure 134/65 148/69 O2 Sat by Pulse Oximetry (%) Current Medications Generic Name Dose Route Start Last Admin Trade Name Freq PRN Reason Stop Dose Admin Acetaminophen 650 mg 01/25/18 21:48 01/29/18 23:34 Tylenol - PO 650 mg Q6H PRN Administration PAIN LEVEL 4 - 6 Amlodipine Besylate 10 mg 01/27/18 10:30 01/30/18 09:27 Norvasc - PO 10 mg DAILY TONYA Administration Aspirin 81 mg 01/29/18 10:00 01/30/18 09:27 Asa - PO 81 mg DAILY TONYA Administration Benzocaine/Menthol 1 each 01/29/18 07:57 01/30/18 02:47 Cepacol Lozenge - MM 1 each PRN PRN Administration SORE THROAT Carvedilol 6.25 mg 01/29/18 10:00 01/30/18 09:27 Coreg - PO 6.25 mg BID TONYA Administration Clopidogrel Bisulfate 75 mg 01/29/18 10:00 01/30/18 09:27 Plavix - PO 75 mg DAILY TONYA Administration Docusate Sodium 100 mg 01/27/18 10:18 01/30/18 09:27 Colace - PO 100 mg Q8H PRN Administration CONSTIPATION Ferrous Sulfate 325 mg 01/27/18 12:00 01/30/18 09:27 Feosol - PO 325 mg TIDCM TONYA Administration Folic Acid 1 mg 01/27/18 10:30 01/30/18 09:27 Folic Acid - PO 1 mg DAILY TONYA Administration Furosemide 40 mg 01/29/18 10:00 01/30/18 09:27 Lasix - PO 40 mg DAILY TONYA Administration Heparin Sodium (Porcine) 5,000 unit 01/29/18 10:00 01/30/18 09:27 Heparin - SQ 5,000 unit BID [facility] Administration Insulin Aspart 1 vial 01/29/18 11:00 01/30/18 06:11 Novolog Vial Sliding Scale - SQ Not Given ACHS [facility] Protocol Phenol/Menthol 1 spray 01/26/18 08:52 Chloraseptic - MM Q6H PRN SORE THROAT Promethazine HCl 12.5 mg 01/29/18 07:57 Phenergan Injection - IVPUSH Q6H PRN NAUSEA-FOR RESCUE AFTER 15 MIN Rosuvastatin Calcium 40 mg 01/29/18 22:00 01/29/18 21:35 Crestor - PO 40 mg HS [facility] Administration Laboratory Results - last 24 hr 01/28/18 01/29/18 01/29/18 06:45 12:52 17:18 Hct 23.8 L POC Glucometer 190 171 Folate 1484 Folate Hemolysate 353.1 Stool Occult Blood 01/29/18 01/30/18 01/30/18 21:41 06:10 07:47 Hct POC Glucometer 291 130 Folate Folate Hemolysate Stool Occult Blood Negative S1S2 RRR Lungs decreased Abd- soft, NT edema+ PLAN s/p CEA anemia CKD -- check labs -- dc planning -- continue with meds -- possible dc to SNF
[2018-01-30] MEDS ORDERED: INSULIN (NOVOLOG) ASPART 100 UNITS/ML 10ML VIAL ONE ×2 (12:22→16:34)
[2018-01-30 12:36] LABS: HEMATOCRIT 23.2 % (35.4-49); HEMOGLOBIN 7.8 GM/dL (11.7-16.9); MCH 31.7 pg (25.7-33.7); MCHC 33.8 g/dl (32.0-35.9); MEAN CELL VOLUME 93.8 fl (80-96); MEAN PLT VOLUME 8.1 fl (7.5-11.1); PLATELET COUNT 195 K/MM3 (134-434); RBC 2.47 M/mm3 (4.00-5.60); RDW 14.2 % (11.9-15.9); WHITE BLOOD COUNT 5.6 K/mm3 (4.0-10.0)
[2018-01-30 15:50] VITALS: BP 132/64; PULSE 86; TEMP 98.5
--- NOTE | 2018-02-05 10:44 | DS ---
Physical Examination Vital Signs: Vital Signs Temperature 98.5 F 01/30/18 13:50 Pulse Rate 86 01/30/18 13:50 Respiratory Rate 20 01/30/18 13:50 Blood Pressure 132/64 01/30/18 13:50 O2 Sat by Pulse Oximetry (%) 97 01/30/18 09:00 Labs: CBC, BMP 01/30/18 11:49 01/28/18 06:45 Discharge Summary Reason For Visit: EDEMA OF LOWER EXTREMITY/LIGHTHEADEDNESS Condition: Stable - Instructions Diet, Activity, Other Instructions: Wound instructions: Keep your incision clean and dry. [place] to be removed in the office. Sponge bath only. Follow- up with Dr. Humphrey next week Referrals: Ariadna Huizar MD [Primary Care Provider] - Ze Humphrey MD [Staff Physician] - Disposition: [facility]URSING HOME FACILITY - Home Medications Comprehensive Discharge Medication List: Ambulatory Orders Acetaminophen [Tylenol .Regular Strength -] 650 mg PO Q6H PRN tablet 09/18/17 Aspirin [ASA -] 81 mg PO DAILY tab.chew 09/18/17 Clopidogrel Bisulfate [Plavix -] 75 mg PO DAILY #30 tablet 10/15/17 Furosemide [Lasix -] 40 mg PO DAILY #90 tablet 10/15/17 Glipizide [Glipizide ER] 5 mg PO DAILY #30 tab.er.24 10/15/17 Tamsulosin HCl [Flomax -] 0.8 mg PO DAILY@0830 #30 tab 10/15/17 Acetaminophen [Tylenol .Regular Strength -] 650 mg PO Q6H PRN tablet 01/29/18 Amlodipine Besylate [Norvasc -] 10 mg PO DAILY tablet 01/29/18 Carvedilol [Coreg -] 6.25 mg PO BID tablet 01/29/18 Chlorhexidine Gluconate [Hibiclens For Decolonization -] 1 applic TP HS bottle 01/29/18 Docusate Sodium [Colace -] 100 mg PO Q8H PRN capsule 01/29/18 Ferrous Sulfate [Feosol] 325 mg PO TIDCM ud 01/29/18 Folic Acid - 1 mg PO DAILY tablet 01/29/18 Furosemide [Lasix -] 40 mg PO DAILY tablet 01/29/18 Heparin - 5,000 unit SQ BID vial 01/29/18 Phenol [Chloraseptic -] 1 spray MM Q6H PRN bottle 01/29/18 Rosuvastatin [Crestor -] 40 mg PO HS tablet 01/29/18 traMADol HCL [Ultram -] 25 mg PO Q6H PRN #30 tablet MDD 4 01/29/18
== END 2018-01-30 16:45 | DRG 253 ==
LOC: JER 01:40 → JERBED 06:17 → J4W 08:49 → OBSVTOIN 01-21 11:53 → JICU 01-24 19:50 → J8W 01-25 13:48
PROVIDERS: ADMIT Internal Medicine; ATTEND Internal Medicine
PROC: 03UL0JZ Supplement Left Internal Carotid Artery with Synthetic Substitute, Open Approach (ICD-10-PCS; 2018-01-24)
PROC: 03CL0Z6 (ICD-10-PCS; principal; 2018-01-24 08:00)
DX: E11.51 Type 2 diabetes mellitus with diabetic peripheral angiopathy without gangrene (principal); I45.2 Bifascicular block; I69.354 Hemiplegia and hemiparesis following cerebral infarction affecting left non-dominant side; I13.0 Hypertensive heart and chronic kidney disease with heart failure and stage 1 through stage 4 chronic kidney disease, or unspecified chronic kidney disease; I50.32 Chronic diastolic (congestive) heart failure; I42.9 Cardiomyopathy, unspecified; E11.22 Type 2 diabetes mellitus with diabetic chronic kidney disease; Z91.14 Patient's other noncompliance with medication regimen; E66.9 Obesity, unspecified; Z68.31 Body mass index [BMI] 31.0-31.9, adult; I25.10 Atherosclerotic heart disease of native coronary artery without angina pectoris; Z95.5 Presence of coronary angioplasty implant and graft; E78.5 Hyperlipidemia, unspecified; Z79.84 Long term (current) use of oral hypoglycemic drugs; I73.9 Peripheral vascular disease, unspecified; E11.40 Type 2 diabetes mellitus with diabetic neuropathy, unspecified; F41.9 Anxiety disorder, unspecified; F17.210 Nicotine dependence, cigarettes, uncomplicated; E87.5 Hyperkalemia; J44.9 Chronic obstructive pulmonary disease, unspecified; N18.3 Chronic kidney disease, stage 3 (moderate); D63.1 Anemia in chronic kidney disease; I87.2 Venous insufficiency (chronic) (peripheral); E11.42 Type 2 diabetes mellitus with diabetic polyneuropathy; I65.23 Occlusion and stenosis of bilateral carotid arteries
CPT/HCPCS: 36415; 70450-TC; 71045-TC-FY; 80048; 80053; 80061; 81003; 81015; 82272; 82550; 82607; 82728; 82747; 82962; 83036; 83540; 83550; 83721; 83735; 84100; 84439; 84443; 84484; 85014; 85025; 85027; 85044; 86850; 86900; 86901; 86922; 87086; 88304-TC; 88311-TC; 93005; 93010; 93306-TC; 93880-TC; 93970-TC; 94760; 97116-GP; 97161-GP; 99284-25; G0378; J1644

== ENCOUNTER 2018-02-06 12:23 | Inpatient (IN) | payer OTHER ==
--- NOTE | 2018-02-06 13:07 | PDOC ---
History of Present Illness - General Chief Complaint: Blood Transfusion Stated Complaint: Revisit, Lab Variance Time Seen by Provider: 02/06/18 12:43 History Source: Patient - History of Present Illness Timing/Duration: other Past History - Past Medical History Allergies/Adverse Reactions: Allergies Allergy/AdvReac Type Severity Reaction Status Date / Time No Known Drug Allergies Allergy Verified 02/06/18 12:31 Home Medications: Ambulatory Orders Aspirin [ASA -] 81 mg PO DAILY tab.chew 09/18/17 Clopidogrel Bisulfate [Plavix -] 75 mg PO DAILY #30 tablet 10/15/17 Glipizide [Glipizide ER] 5 mg PO DAILY #30 tab.er.24 10/15/17 Tamsulosin HCl [Flomax -] 0.8 mg PO DAILY@0830 #30 tab 10/15/17 Acetaminophen [Tylenol .Regular Strength -] 650 mg PO Q6H PRN tablet 01/29/18 Amlodipine Besylate [Norvasc -] 10 mg PO DAILY tablet 01/29/18 Docusate Sodium [Colace -] 100 mg PO Q8H PRN capsule 01/29/18 Ferrous Sulfate [Feosol] 325 mg PO TIDCM ud 01/29/18 Folic Acid - 1 mg PO DAILY tablet 01/29/18 Heparin - 5,000 unit SQ BID vial 01/29/18 Phenol [Chloraseptic -] 1 spray MM Q6H PRN bottle 01/29/18 Rosuvastatin [Crestor -] 40 mg PO HS tablet 01/29/18 Ascorbic Acid [Vitamin C -] 500 mg PO BID 02/06/18 Carvedilol [Coreg -] 12.5 mg PO BID 02/06/18 Furosemide [Lasix -] 20 mg PO DAILY 02/06/18 Insulin Lispro [Humalog] 100 unit SQ ASDIR 02/06/18 Mirtazapine [Remeron -] 7.5 mg PO DAILY 02/06/18 traMADol HCL [Ultram -] 50 mg PO Q6H PRN MDD 4 02/06/18 Anemia: No Asthma: No Cancer: No Cardiac Disorders: Yes (stent x 2) CVA: Yes (2009, 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) COPD: No CHF: No Dementia: No Diabetes: Yes GI Disorders: No Disorders: No HTN: Yes Hypercholesterolemia: Yes Liver Disease: No Seizures: No Thyroid Disease: No - Surgical History Abdominal Surgery: No Appendectomy: No Cardiac Surgery: Yes (STENTS X2) Cholecystectomy: No Lung Surgery: No Neurologic Surgery: No Orthopedic Surgery: No - Immunization History Immunization Up to Date: Yes - Suicide/Smoking/Psychosocial Hx Smoking Status: Yes Smoking History: Former smoker Have you smoked in the past 12 months: No Number of Cigarettes Smoked Daily: 2 If you are a former smoker, when did you quit?: 09/2016 Cigars Per Day: 0 Information on smoking cessation initiated: No 'Breaking Loose' booklet given: 01/19/18 Hx Alcohol Use: No Drug/Substance Use Hx: No Substance Use Type: None Hx Substance Use Treatment: No Review of Systems - Review of Systems Constitutional: No: Fever Respiratory: No: Shortness of Breath Cardiac (ROS): No: Chest Pain, Lightheadedness, Palpitations, Syncope ABD/GI: No: Blood Streaked Bowels, Constipated, Diarrhea, Nausea, Rectal Bleeding, Vomiting, Abdominal cramping *Physical Exam - Vital Signs Last Vital Signs Temp Pulse Resp BP Pulse Ox 97.8 F 81 20 128/62 97 02/06/18 12:31 02/06/18 12:31 02/06/18 12:31 02/06/18 12:31 02/06/18 12:31 - Physical Exam General Appearance: Yes: Appropriately Dressed. No: Apparent Distress HEENT: positive: Normal Voice Neck: positive: Supple Respiratory/Chest: positive: Lungs Clear, Normal Breath Sounds. negative: Respiratory Distress Cardiovascular: positive: Regular Rate, S1, S2 Gastrointestinal/Abdominal: positive: Soft. negative: Tender Integumentary: positive: Dry, Warm Neurologic: positive: Fully Oriented, Alert, Normal Mood/Affect ED Treatment Course - LABORATORY CBC & Chemistry Diagram: 02/06/18 13:53 02/06/18 13:24 - RADIOLOGY Radiology Studies Ordered: Category Date Time Status CHEST X-RAY PORTABLE* [RAD] Stat Radiology 02/06/18 12:58 Ordered Medical Decision Making - Medical Decision Making 02/06/18 13:02 57-yo male, h/o HLD, HTN, CAD, CHF on lasix, CVA (w/ L sided deficit), s/p recent L carotid endarectomy, smoker, COPD, DM, CKD (baseline cr ~2), anemia, [facility] from [facility] for low hemoglobin, was 6.3 today. Patient complaining of feeling tired, but no shortness of breath, dizziness, abd pain, BRBPR or melena. Pt s/p workup for anemia last year, which only revealed diverticulosis on colonoscopy. Also found to have mildly depressed B12. Patient s/p recent admission for left carotid endarterectomy after complaining of dizziness. Hemoglobin 01/30/18 was 7.8, baseline for this year has been 8-9 See exam Worsening anemia Unclear if transfused in the past W/u revealed diverticulosis in 2017 Stable w/ unremarkable exam- -labs -transfuse (may need lasix between units given CHF, will d/w ED attg) -admit 02/06/18 13:16 02/06/18 14:36 Hgb 6.7. Will transfuse 1 unit PRBC in ED as per d/w Dr oKlb. Will arrange admission at this time. Pt states he has been transfused in the past with no adverse reaction. Patient was able to sign consent for transfusion 02/06/18 15:59 Case d/w Dr Garnett and pt admitted to obs *DC/Admit/Observation/Transfer Diagnosis at time of Disposition: Anemia Qualifiers: Anemia type: unspecified type Qualified Code(s): D64.9 - Anemia, unspecified - Discharge Dispostion Condition at time of disposition: Fair Decision to Admit order: Yes - Referrals Referrals: Paul Gutierrez MD [Primary Care Provider] - - Patient Instructions - Post Discharge Activity
[2018-02-06 14:15] LABS: BASO % 0.6 % (0-2.0); EOS % 4.2 % (0-4.5); MCH 31.5 pg (25.7-33.7); MCHC 33.1 g/dl (32.0-35.9); MEAN CELL VOLUME 95.2 fl (80-96); MEAN PLT VOLUME 7.9 fl (7.5-11.1); MONO % 9.2 % (3.8-10.2); PLATELET COUNT 200 K/MM3 (134-434); RBC 2.14 M/mm3 (4.00-5.60); RDW 15.1 % (11.9-15.9); WHITE BLOOD COUNT 6.8 K/mm3 (4.0-10.0)
[2018-02-06 14:33] LABS: HEMATOCRIT 20.4 % (35.4-49); HEMOGLOBIN 6.7 GM/dL (11.7-16.9)
[2018-02-06 14:36] LABS: INR 1.07 (0.83-1.09); PROTHROMBIN TIME (PATIENT) 12.6 SEC (9.7-13.0)
[2018-02-06 16:07] LABS: ALK PHOS 67 U/L (45-117); ANION GAP 4 MMOL/L (8-16); BILIRUBIN,TOTAL 0.2 mg/dL (0.2-1); BLOOD UREA NITROGEN 72 mg/dL (7-18); CALCIUM 8.5 mg/dL (8.5-10.1); CHLORIDE 112 mmol/L (98-107); CO2 24 mmol/L (21-32); CREATININE 2.3 mg/dL (0.55-1.3); POTASSIUM 5.5 mmol/L (3.5-5.1); SGOT/AST 12 U/L (15-37); SGPT/ALT 25 U/L (13-61); SODIUM 140 mmol/L (136-145); TOT PROT 6.1 g/dl (6.4-8.2)
[2018-02-06 16:08] LABS: GLUCOSE,RANDOM 45 mg/dL (74-106)
[2018-02-06] MEDS ORDERED: DEXTROSE 50%-WATER - 25 GM/50 ML VIAL IVPUSH ONE (16:09)
[2018-02-06] MEDS ORDERED: DEXTROSE 50%-WATER 25 GM/50 ML DISP.SYRIN ONE (16:12)
[2018-02-07 03:29] VITALS: BMI 32.5
[2018-02-07] MEDS ORDERED: PT OWN MED DRAWER 7, Y5N ONE (07:03)
[2018-02-07 07:19] LABS: HEMATOCRIT 22.7 % (35.4-49); HEMOGLOBIN 7.5 GM/dL (11.7-16.9); MCH 30.9 pg (25.7-33.7); MEAN CELL VOLUME 93.5 fl (80-96); MEAN PLT VOLUME 7.8 fl (7.5-11.1); PLATELET COUNT 180 K/MM3 (134-434); RBC 2.43 M/mm3 (4.00-5.60); RDW 15.7 % (11.9-15.9)
[2018-02-07 08:22] LABS: ALBUMIN 2.7 g/dl (3.4-5.0); ALK PHOS 65 U/L (45-117); ANION GAP 8 MMOL/L (8-16); BILIRUBIN,TOTAL 0.3 mg/dL (0.2-1); BLOOD UREA NITROGEN 67 mg/dL (7-18); CALCIUM 8.3 mg/dL (8.5-10.1); CHLORIDE 112 mmol/L (98-107); CO2 24 mmol/L (21-32); CREATININE 2.1 mg/dL (0.55-1.3); GLUCOSE,RANDOM 139 mg/dL (74-106); POTASSIUM 5.2 mmol/L (3.5-5.1); SGOT/AST 11 U/L (15-37); SGPT/ALT 23 U/L (13-61); SODIUM 145 mmol/L (136-145); TOT PROT 5.6 g/dl (6.4-8.2)
--- NOTE | 2018-02-07 09:56 | EKG ---
Test Reason : Blood Pressure : / mmHG Vent. Rate : 076 BPM Atrial Rate : 076 BPM P-R Int : 190 ms QRS Dur : 142 ms QT Int : 420 ms P-R-T Axes : 054 -55 046 degrees QTc Int : 472 ms NORMAL SINUS RHYTHM RIGHT BUNDLE BRANCH BLOCK LEFT ANTERIOR FASCICULAR BLOCK BIFASCICULAR BLOCK ABNORMAL ECG WHEN COMPARED WITH ECG OF 24-JAN-2018 12:41, NO SIGNIFICANT CHANGE WAS FOUND Confirmed by EDIS HUANG MD ([id number]) on 02/07/2018 9:55:37 AM Referred By: Confirmed By:EDIS HUANG MD
--- NOTE | 2018-02-07 11:32 | HP ---
Admitting History and Physical - Primary Care Physician PCP: Ariadna Huizar - Admission Chief Complaint: anemia History of Present Illness: ER HISTORY 57-yo male, h/o HLD, HTN, CAD, CHF on lasix, CVA (w/ L sided deficit), s/p recent L carotid endarectomy, smoker, COPD, DM, CKD (baseline cr ~2), anemia, sent from long term for low hemoglobin, was 6.3 today. Patient complaining of feeling tired, but no shortness of breath, dizziness, abd pain, BRBPR or melena. Pt s/p workup for anemia last year, which only revealed diverticulosis on colonoscopy. Also found to have mildly depressed B12. Patient s/p recent admission for left carotid endarterectomy after complaining of dizziness. 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, Other (arterial insufficiency s/p left fem -tibial bypass- 2013, rt fem-pop bypass- 2017) Cardiovascular: Yes: CAD, CHF, HTN, Hyperlipdemia, Other (PAD) Pulmonary: Yes: COPD Renal/: Yes: Renal Inusuff Heme/Onc: Yes: Anemia Psych: Yes: Anxiety Endocrine: Yes: Diabetes Mellitus - Past Surgical History Past Surgical History: Yes: Bypass, Carotid Endarterectomy, Stent - Smoking History Smoking history: Former smoker Have you smoked in the past 12 months: No Aproximately how many cigarettes per day: 2 If you are a former smoker, when did you quit?: 09/2016 - Alcohol/Substance Use Hx Alcohol Use: No History of Substance Use: reports: None - Social History ADL: Independent 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 History of Recent Travel: No Home Medications - Allergies Allergies/Adverse Reactions: Allergies Allergy/AdvReac Type Severity Reaction Status Date / Time No Known Drug Allergies Allergy Verified 02/06/18 12:31 - Home Medications Home Medications: Ambulatory Orders Aspirin [ASA -] 81 mg PO DAILY tab.chew 09/18/17 Clopidogrel Bisulfate [Plavix -] 75 mg PO DAILY #30 tablet 10/15/17 Glipizide [Glipizide ER] 5 mg PO DAILY #30 tab.er.24 10/15/17 Tamsulosin HCl [Flomax -] 0.8 mg PO DAILY@0830 #30 tab 10/15/17 Acetaminophen [Tylenol .Regular Strength -] 650 mg PO Q6H PRN tablet 01/29/18 Amlodipine Besylate [Norvasc -] 10 mg PO DAILY tablet 01/29/18 Docusate Sodium [Colace -] 100 mg PO Q8H PRN capsule 01/29/18 Ferrous Sulfate [Feosol] 325 mg PO TIDCM ud 01/29/18 Folic Acid - 1 mg PO DAILY tablet 01/29/18 Heparin - 5,000 unit SQ BID vial 01/29/18 Phenol [Chloraseptic -] 1 spray MM Q6H PRN bottle 01/29/18 Rosuvastatin [Crestor -] 40 mg PO HS tablet 01/29/18 Ascorbic Acid [Vitamin C -] 500 mg PO BID 02/06/18 Carvedilol [Coreg -] 12.5 mg PO BID 02/06/18 Furosemide [Lasix -] 20 mg PO DAILY 02/06/18 Insulin Lispro [Humalog] 100 unit SQ ASDIR 02/06/18 Mirtazapine [Remeron -] 7.5 mg PO DAILY 02/06/18 traMADol HCL [Ultram -] 50 mg PO Q6H PRN MDD 4 02/06/18 Family Disease History - Family Disease History Family Disease History: Other: Father ( 62: lung ca), Mother ( 72: colon cancer), Sister (1, healthy) Review of Systems - Review of Systems Cardiovascular: denies: Chest Pain, Palpitations, Shortness of Breath Gastrointestinal: denies: Abdominal Pain, Constipation, Diarrhea, Indigestion, Melena, Nausea, Vomiting, Vomiting Blood Physical Examination Vital Signs: Vital Signs Temperature 98.3 F 02/07/18 09:51 Pulse Rate 98 H 02/07/18 09:51 Respiratory Rate 18 02/07/18 09:51 Blood Pressure 149/63 02/07/18 09:51 O2 Sat by Pulse Oximetry (%) 100 02/06/18 22:00 Constitutional: Yes: No Distress, Calm Neck: Yes: Other (left carotid surgery- emilie intact- wound is clean) Cardiovascular: Yes: Regular Rate and Rhythm, Murmur Respiratory: Yes: Diminished Gastrointestinal: Yes: Normal Bowel Sounds, Soft, Abdomen, Obese. No: Tenderness Edema: Yes Psychiatric: Yes: Alert, Oriented Labs: CBC, BMP 02/07/18 06:30 02/07/18 06:30 Imaging - Results Chest X-ray: Image Reviewed (clear) EKG: Image Reviewed (NSR) Problem List - Problems (1) Anemia Code(s): D64.9 - ANEMIA, UNSPECIFIED Qualifiers: Anemia type: unspecified type Qualified Code(s): D64.9 - Anemia, unspecified (2) ASHD (arteriosclerotic heart disease) Code(s): I25.10 - ATHSCL HEART DISEASE OF [place] CORONARY ARTERY W/O ANG PCTRS (3) CAD (coronary artery disease) Code(s): I25.10 - ATHSCL HEART DISEASE OF [place] CORONARY ARTERY W/O ANG PCTRS Qualifiers: Coronary Disease-Associated Artery/Lesion type: tribe artery [place] vs. transplanted heart: tribe heart Associated angina: without angina Qualified Code(s): I25.10 - Atherosclerotic heart disease of tribe coronary artery without angina pectoris (4) CKD (chronic kidney disease) stage 3, GFR 30-59 ml/min Code(s): N18.3 - CHRONIC KIDNEY DISEASE, STAGE 3 (MODERATE) (5) Carotid stenosis, left Code(s): I65.22 - OCCLUSION AND STENOSIS OF LEFT CAROTID ARTERY Assessment/Plan PLAN will transfuse 2 more units today give Lasix in between continue with ASA and plavix dc Heparin sc continue with meds renal function about the same had anemia work up in the past - diverticulosis check stool occult blood
[2018-02-07] MEDS ORDERED: FUROSEMIDE 40 MG/4 ML INJECTABLE VIAL IVPUSH ONE ×2 (11:33→19:15)
[2018-02-07] MEDS ORDERED: DOCUSATE SODIUM 100 MG CAPSULE (FP) PO PRN (11:34)
[2018-02-07] MEDS ORDERED: traMADol HCL 50 MG TABLET PO PRN ×2 (11:34)
[2018-02-07] MEDS ORDERED: ACETAMINOPHEN 325 MG TABLET (FP) PO PRN ×2 (11:34)
[2018-02-07] MEDS: FERROUS SO4 325 MG TABLET (FP) PO SCH ×2 (13:07→17:43)
[2018-02-07] MEDS: CARVEDILOL 6.25 MG TABLET (FP) PO SCH (21:13)
[2018-02-07] MEDS: ASCORBIC ACID 500 MG TABLET (FP) PO SCH (21:14)
[2018-02-07] MEDS ORDERED: ROSUVASTATIN CA 20 MG TABLET (FP) PO SCH (22:00)
[2018-02-07] MEDS ORDERED: MIRTAZAPINE 15 MG TABLET (FP) PO SCH (22:00)
[2018-02-08] MEDS ORDERED: INSULIN SLIDING SCALE (NOVOLOG) 1 VIAL SQ SCH (07:00)
[2018-02-08] MEDS ORDERED: glipiZIDE-XL 5 MG TAB.ER.24 PO SCH (07:00)
[2018-02-08 07:59] LABS: HEMATOCRIT 29.7 % (35.4-49); MCHC 33.8 g/dl (32.0-35.9); MEAN CELL VOLUME 91.8 fl (80-96); MEAN PLT VOLUME 7.3 fl (7.5-11.1); PLATELET COUNT 178 K/MM3 (134-434); RBC 3.23 M/mm3 (4.00-5.60); RDW 16.5 % (11.9-15.9); WHITE BLOOD COUNT 9.3 K/mm3 (4.0-10.0)
[2018-02-08] MEDS ORDERED: TAMSULOSIN HCL 0.4 MG CAP PO SCH (08:30)
[2018-02-08] MEDS: FERROUS SO4 325 MG TABLET (FP) PO SCH ×2 (08:48→12:09)
--- NOTE | 2018-02-08 09:51 | PROC ---
Procedure Note Procedure: 57 y/o M w/ multiple medical problems, s/p L carotid endarectomy with Dr Humphrey on 01/24, now readmitted for anemia requiring transfusions. Asked by attending Dr Humphrey to remove emilie. Emilie removed at bedside, pt tolerated well. Incision c/d/i, some edema proximally pt breathing well and able to speak in full sentences. Continue care per primary team F/U outpt with Dr Humphrey as previously scheduled.
[2018-02-08] MEDS ORDERED: amLODIPine BESYLATE 10 MG TABLET (FP) PO SCH (10:00)
[2018-02-08] MEDS ORDERED: FUROSEMIDE 20 MG TABLET (FP) PO SCH (10:00)
[2018-02-08] MEDS ORDERED: FOLIC ACID 1 MG TABLET (FP) PO SCH (10:00)
[2018-02-08] MEDS ORDERED: ASPIRIN 81 MG CHEWABLE TABLETS PO SCH (10:00)
[2018-02-08] MEDS ORDERED: FLU VACCINE QUAD 60 MCG/0.5 ML (MDV 18-19) IM ONE (10:00)
[2018-02-08] MEDS ORDERED: CLOPIDOGREL BISULFATE 75 MG TABLET (FP) PO SCH (10:00)
[2018-02-08] MEDS ORDERED: PT OWN MED DRAWER 7, Y5N ONE (10:05)
[2018-02-08] MEDS: ASCORBIC ACID 500 MG TABLET (FP) PO SCH (10:06)
[2018-02-08] MEDS: CARVEDILOL 6.25 MG TABLET (FP) PO SCH (10:07)
[2018-02-08 10:55] VITALS: BP 178/97; PULSE 87; TEMP 98.8
--- NOTE | 2018-02-08 11:17 | DS ---
Physical Examination Vital Signs: Vital Signs Temperature 98.8 F 02/08/18 09:30 Pulse Rate 87 02/08/18 09:30 Respiratory Rate 18 02/08/18 09:30 Blood Pressure 178/97 H 02/08/18 09:30 O2 Sat by Pulse Oximetry (%) 98 02/07/18 21:00 Constitutional: Yes: No Distress, Calm Cardiovascular: Yes: Regular Rate and Rhythm, Murmur Respiratory: Yes: Diminished Gastrointestinal: Yes: Normal Bowel Sounds, Soft, Abdomen, Obese. No: Tenderness Edema: Yes Labs: CBC, BMP 02/08/18 07:00 02/07/18 06:30 Discharge Summary Reason For Visit: ANEMIA Current Active Problems Anemia (Acute) Hospital Course: Admitted for anemia He had work up for anemia previously dc Heparin sc continue with ASA and Plavix No bleeding oted pt has h/o CKD and anemia Pt received total 3 units of PRBC emilie removed by Surgery Stable for dc to [facility] ' Condition: Fair - Instructions Referrals: Paul Gutierrez MD [Primary Care Provider] - Disposition: NURSING HOME FACILITY - Home Medications Comprehensive Discharge Medication List: Ambulatory Orders Aspirin [ASA -] 81 mg PO DAILY tab.chew 09/18/17 Clopidogrel Bisulfate [Plavix -] 75 mg PO DAILY #30 tablet 10/15/17 Glipizide [Glipizide ER] 5 mg PO DAILY #30 tab.er.24 10/15/17 Tamsulosin HCl [Flomax -] 0.8 mg PO DAILY@0830 #30 tab 10/15/17 Acetaminophen [Tylenol .Regular Strength -] 650 mg PO Q6H PRN tablet 01/29/18 Amlodipine Besylate [Norvasc -] 10 mg PO DAILY tablet 01/29/18 Docusate Sodium [Colace -] 100 mg PO Q8H PRN capsule 01/29/18 Ferrous Sulfate [Feosol] 325 mg PO TIDCM ud 01/29/18 Folic Acid - 1 mg PO DAILY tablet 01/29/18 Heparin - 5,000 unit SQ BID vial 01/29/18 Phenol [Chloraseptic -] 1 spray MM Q6H PRN bottle 01/29/18 Rosuvastatin [Crestor -] 40 mg PO HS tablet 01/29/18 Ascorbic Acid [Vitamin C -] 500 mg PO BID 02/06/18 Carvedilol [Coreg -] 12.5 mg PO BID 02/06/18 Furosemide [Lasix -] 20 mg PO DAILY 02/06/18 Insulin Lispro [Humalog] 100 unit SQ ASDIR 02/06/18 Mirtazapine [Remeron -] 7.5 mg PO DAILY 02/06/18 traMADol HCL [Ultram -] 50 mg PO Q6H PRN MDD 4 02/06/18
== END 2018-02-08 14:08 | DRG 699 ==
LOC: JER 12:23 → JERBED 14:36 → J5S 21:42 → OBSVTOIN 02-07 17:42
PROVIDERS: ADMIT Internal Medicine; ATTEND Internal Medicine
PROC: 30233N1 Transfusion of Nonautologous Red Blood Cells into Peripheral Vein, Percutaneous Approach (ICD-10-PCS; principal; 2018-02-06)
DX: E11.22 Type 2 diabetes mellitus with diabetic chronic kidney disease (principal); I13.0 Hypertensive heart and chronic kidney disease with heart failure and stage 1 through stage 4 chronic kidney disease, or unspecified chronic kidney disease; I69.354 Hemiplegia and hemiparesis following cerebral infarction affecting left non-dominant side; I25.10 Atherosclerotic heart disease of native coronary artery without angina pectoris; D64.9 Anemia, unspecified; N18.3 Chronic kidney disease, stage 3 (moderate); E11.42 Type 2 diabetes mellitus with diabetic polyneuropathy; E78.5 Hyperlipidemia, unspecified; E11.51 Type 2 diabetes mellitus with diabetic peripheral angiopathy without gangrene; F41.9 Anxiety disorder, unspecified; J44.9 Chronic obstructive pulmonary disease, unspecified; D63.1 Anemia in chronic kidney disease; E66.9 Obesity, unspecified; Z68.32 Body mass index [BMI] 32.0-32.9, adult; I65.22 Occlusion and stenosis of left carotid artery; Z87.891 Personal history of nicotine dependence
CPT/HCPCS: 36415; 36430; 71045-TC-FY; 80053; 82550; 82962; 83880; 84484; 85025; 85027; 85610; 86850; 86900; 86901; 86922; 90688; 93005; 93010; 99284-25; G0008; G0378; P9038; P9058

== ENCOUNTER 2018-02-20 07:44 | Inpatient (IN) | payer OTHER ==
[2018-02-20 08:00] VITALS: BMI 37.2
--- NOTE | 2018-02-20 08:10 | PDOC ---
History of Present Illness <Phoebe Ashley - Last Filed: 02/20/18 09:47> - General History Source: Patient Exam Limitations: No Limitations - History of Present Illness Initial Comments: 02/20/18 08:08 The patient is a 57M with a PMH of HLD, HTN, CAD, CHF on lasix, CVA (w/ L sided deficit), s/p recent L carotid endarectomy, smoker, COPD, DM, CKD (baseline cr ~ 2), anemia who presents from [facility] after having 2 episodes of SOB after standing up. The patient states that he was in his usual state of health ( currently at [facility] for rehab) and stood up to use the urinal. Both times that he did this, he felt short of breath after sitting back down in bed. He denies any orthopnea, CP, fevers, chills, nausea, vomiting, and abdominal pain. He admits to having transfusions in the past and dark stools but states that the dark stools only happened since he's been taking iron. <Cristino Nunez - Last Filed: 02/20/18 09:57> - General Chief Complaint: Revisit, Lab Variance Stated Complaint: ABDNORMAL LABS Time Seen by Provider: 02/20/18 07:56 Past History <Phoebe Ashley - Last Filed: 02/20/18 09:47> - Past Medical History Anemia: No Asthma: No Cancer: No Cardiac Disorders: Yes (stent x 2) CVA: Yes (2009, 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) COPD: No CHF: No Dementia: No Diabetes: Yes GI Disorders: No Disorders: No HTN: Yes Hypercholesterolemia: Yes Liver Disease: No Seizures: No Thyroid Disease: No - Surgical History Abdominal Surgery: No Appendectomy: No Cardiac Surgery: Yes (STENTS X2) Cholecystectomy: No Lung Surgery: No Neurologic Surgery: No Orthopedic Surgery: No - Immunization History Immunization Up to Date: Yes - Suicide/Smoking/Psychosocial Hx Smoking Status: Yes Smoking History: Former smoker Have you smoked in the past 12 months: No Number of Cigarettes Smoked Daily: 2 If you are a former smoker, when did you quit?: 09/2016 Cigars Per Day: 0 Information on smoking cessation initiated: No 'Breaking Loose' booklet given: 01/19/18 Hx Alcohol Use: No Drug/Substance Use Hx: No Substance Use Type: None Hx Substance Use Treatment: No <Cristino Nunez - Last Filed: 02/20/18 09:57> - Past Medical History Allergies/Adverse Reactions: Allergies Allergy/AdvReac Type Severity Reaction Status Date / Time No Known Drug Allergies Allergy Verified 02/20/18 07:50 Home Medications: Ambulatory Orders Aspirin [ASA -] 81 mg PO DAILY tab.chew 09/18/17 Clopidogrel Bisulfate [Plavix -] 75 mg PO DAILY #30 tablet 10/15/17 Glipizide [Glipizide ER] 5 mg PO DAILY #30 tab.er.24 10/15/17 Tamsulosin HCl [Flomax -] 0.8 mg PO DAILY@0830 #30 tab 10/15/17 Acetaminophen [Tylenol .Regular Strength -] 650 mg PO Q6H PRN tablet 01/29/18 Amlodipine Besylate [Norvasc -] 10 mg PO DAILY tablet 01/29/18 Docusate Sodium [Colace -] 100 mg PO Q8H PRN capsule 01/29/18 Ferrous Sulfate [Feosol] 325 mg PO TIDCM ud 01/29/18 Folic Acid - 1 mg PO DAILY tablet 01/29/18 Rosuvastatin [Crestor -] 40 mg PO HS tablet 01/29/18 Ascorbic Acid [Vitamin C -] 500 mg PO BID 02/06/18 Carvedilol [Coreg -] 12.5 mg PO BID 02/06/18 Furosemide [Lasix -] 40 mg PO DAILY 02/06/18 Insulin Lispro [Humalog Kwikpen U-100] 100 unit SQ ASDIR 02/06/18 Mirtazapine [Remeron -] 7.5 mg PO DAILY 02/06/18 traMADol HCL [Ultram -] 50 mg PO Q6H PRN MDD 4 02/06/18 Furosemide Injection [Lasix *Injection*] 40 mg IVPB DAILY 02/20/18 Review of Systems - Review of Systems Able to Perform ROS?: Yes Comments:: 02/20/18 08:47 GENERAL/CONSTITUTIONAL: No fever or chills. No weakness. HEAD, EYES, EARS, NOSE AND THROAT: No change in vision. No ear pain or discharge. No sore throat. CARDIOVASCULAR: No chest pain, palpitations, or lightheadedness. RESPIRATORY: Positive for shortness of breath. No cough, wheezing, or hemoptysis. GASTROINTESTINAL: Positive for dark stools (since starting Fe tabs). No nausea, vomiting, diarrhea, constipation, or abdominal pain. GENITOURINARY: No dysuria, frequency, hematuria, or change in urination. MUSCULOSKELETAL: No joint or muscle swelling or pain. No neck or back pain. SKIN: No rash or lesions. NEUROLOGIC: No headache, numbness, tingling, focal weakness, loss of consciousness, or change in strength/sensation. ENDOCRINE: No increased thirst. No abnormal weight change. HEMATOLOGIC/LYMPHATIC: Positive for h/o anemia requiring transfusions. No easy bleeding, or history of blood clots. ALLERGIC/IMMUNOLOGIC: No hives or skin allergy. Is the patient limited [place] proficient: No <Cristino Nunez - Last Filed: 02/20/18 09:57> *Physical Exam - Vital Signs Last Vital Signs Temp Pulse Resp BP Pulse Ox 98.3 F 85 20 138/68 99 02/20/18 07:45 02/20/18 07:45 02/20/18 07:45 02/20/18 07:45 02/20/18 07:45 <Phoebe Ashley - Last Filed: 02/20/18 09:47> - Vital Signs Last Vital Signs Temp Pulse Resp BP Pulse Ox 98.3 F 85 20 138/68 99 02/20/18 07:45 02/20/18 07:45 02/20/18 07:45 02/20/18 07:45 02/20/18 07:45 - Physical Exam Comments: 02/20/18 08:48 GENERAL: Well developed, well nourished. Awake and alert. No acute distress. HEENT: Normocephalic, atraumatic. Hearing grossly normal. Moist mucous membranes. PERRLA, EOMI. No conjunctival pallor. Sclera are non-icteric. NECK: Supple. Full ROM. No JVD. CARDIOVASCULAR: Regular rate and rhythm. No murmurs, rubs, or gallops. PULMONARY: No evidence of respiratory distress. Diffuse mild rhonchi present in all lung strong. ABDOMINAL: Soft. Non-tender. Non-distended. No rebound or guarding. GENITOURINARY: No CVA tenderness bilaterally. MUSCULOSKELETAL: Normal range of motion at all joints. No bony deformities or tenderness. EXTREMITIES: No cyanosis. No clubbing. No edema. No calf tenderness or swelling. SKIN: Warm and dry. Normal capillary refill. No rashes. No jaundice. NEUROLOGICAL: Alert, awake, appropriate. Cranial nerves 2-12 grossly intact. Normal speech. PSYCHIATRIC: Cooperative. Good eye contact. Appropriate mood and affect. <Cristino Nunez - Last Filed: 02/20/18 09:57> Heart Score/ECG Review - History History: Slightly suspicious - Electrocardiogram EKG: Normal - Age Age: 45-65 - Risk Factors Risk Factors Heart Score: Yes Hx Hypercholesterolemia, Yes Hx Hypertension Based on the list above the patient has:: 1-2 risk factors - Troponin Troponin: </= normal limit - Score Heart Score - Total: 2 #1 ECG reviewed & interpreted by me at: 08:49 General ECG Interpretation: Sinus Rhythm, Normal Rate, Normal Intervals, No acute ischemic changes Compared to previous ECG there are: No significant change 02/20/18 08:50 NSR vent rate 85 WI 192 QRS 130 QTc 458 RBBB and LAFB therefore Bifascicular block No STD or YOSEF No signs of acute ischemia <Cristino Nunez - Last Filed: 02/20/18 09:57> ED Treatment Course - LABORATORY CBC & Chemistry Diagram: 02/20/18 08:15 02/20/18 08:15 - ADDITIONAL ORDERS Additional order review: Laboratory Results 02/20/18 08:15 Sodium 141 Potassium 6.0 H Chloride 114 H Carbon Dioxide 23 Anion Gap 5 L BUN 82 H Creatinine 2.7 H Creat Clearance w eGFR 24.31 Random Glucose 103 Calcium 8.2 L Total Bilirubin 0.5 AST 15 ALT 30 Alkaline Phosphatase 75 Creatine Kinase 161 Troponin I 0.02 B-Natriuretic Peptide 1826.2 H Total Protein 6.3 L Albumin 3.0 L 02/20/18 08:15 RBC 2.68 L MCV 94.4 MCHC 32.4 RDW 16.6 H MPV 8.3 D Neutrophils % 76.2 Lymphocytes % 7.2 L D Monocytes % 9.9 Eosinophils % 5.5 H Basophils % 1.2 <Phoebe Ashley - Last Filed: 02/20/18 09:47> - LABORATORY CBC & Chemistry Diagram: 02/20/18 08:15 02/20/18 08:15 - RADIOLOGY Radiology Studies Ordered: Category Date Time Status CHEST X-RAY PORTABLE* [RAD] Stat Radiology 02/20/18 08:06 Ordered <Cristino Nunez - Last Filed: 02/20/18 09:57> Medical Decision Making - Medical Decision Making 02/20/18 09:28 Dr. Malinda Islas was paged and notified via phone service. Second page was placed at 09:47. <Phoebe Ashley - Last Filed: 02/20/18 09:47> - Medical Decision Making 02/20/18 08:51 The patient is a 57M with a PMH of HLD, HTN, CAD, CHF on lasix, CVA (w/ L sided deficit), s/p recent L carotid endarectomy, smoker, COPD, DM, CKD (baseline cr ~ 2), anemia who presents to the ER for shortness of breath after urinating, concerning for symptomatic anemia vs CHF. EKG unremarkable. Pending labs and imaging. 02/20/18 09:56 K is elevated to 6.0 without EKG changes. Will treat with insulin, dextrose, and albuterol. I have admitted the patient to Dr. Islas. <Cristino Nunez - Last Filed: 02/20/18 09:57> *DC/Admit/Observation/Transfer <Phoebe Ashley - Last Filed: 02/20/18 09:47> - Discharge Dispostion Decision to Admit order: Yes <Cristino Nunez - Last Filed: 02/20/18 09:57> Diagnosis at time of Disposition: VANDA (acute kidney injury) CHF (congestive heart failure) Qualifiers: Heart failure type: unspecified Heart failure chronicity: acute on chronic Qualified Code(s): I50.9 - Heart failure, unspecified - Discharge Dispostion Condition at time of disposition: Guarded - Referrals Referrals: Paul Gutierrez MD [Primary Care Provider] - - Patient Instructions - Post Discharge Activity
[2018-02-20 08:44] LABS: BASO % 1.2 % (0-2.0); EOS % 5.5 % (0-4.5); HEMATOCRIT 25.3 % (35.4-49); HEMOGLOBIN 8.2 GM/dL (11.7-16.9); LYMPH % 7.2 % (8-40); MCH 30.5 pg (25.7-33.7); MCHC 32.4 g/dl (32.0-35.9); MEAN CELL VOLUME 94.4 fl (80-96); MEAN PLT VOLUME 8.3 fl (7.5-11.1); MONO % 9.9 % (3.8-10.2); NEUT % 76.2 % (42.8-82.8); PLATELET COUNT 145 K/MM3 (134-434); RBC 2.68 M/mm3 (4.00-5.60); RDW 16.6 % (11.9-15.9); WHITE BLOOD COUNT 6.2 K/mm3 (4.0-10.0)
[2018-02-20 09:07] LABS: ALK PHOS 75 U/L (45-117); ANION GAP 5 MMOL/L (8-16); BILIRUBIN,TOTAL 0.5 mg/dL (0.2-1); BLOOD UREA NITROGEN 82 mg/dL (7-18); CALCIUM 8.2 mg/dL (8.5-10.1); CHLORIDE 114 mmol/L (98-107); CO2 23 mmol/L (21-32); CREATININE 2.7 mg/dL (0.55-1.3); GLUCOSE,RANDOM 103 mg/dL (74-106); N-TERMINAL BNP 1826.2 pg/ml (5-125); SGOT/AST 15 U/L (15-37); SGPT/ALT 30 U/L (13-61); SODIUM 141 mmol/L (136-145); TOT PROT 6.3 g/dl (6.4-8.2)
[2018-02-20] MEDS ORDERED: DEXTROSE 50%-WATER - 25 GM/50 ML VIAL IVPUSH ONE (09:24)
[2018-02-20] MEDS ORDERED: INSULIN REGULAR HUMAN 100 UNITS/ML *VIAL IVPUSH ONE (09:24)
[2018-02-20] MEDS ORDERED: ALBUTEROL SO4 0.5 % INH SOLN 2.5 MG/0.5 ML VIAL.NEB. NEB ONE (09:26)
[2018-02-20] MEDS ORDERED: ALBUTEROL SO4 0.083% IH SOL 2.5 MG/3 ML VIAL.NEB. NEB ONE (09:49)
[2018-02-20] MEDS ORDERED: DEXTROSE 50%-WATER 25 GM/50 ML DISP.SYRIN ONE (09:49)
[2018-02-20] MEDS ORDERED: INSULIN REGULAR HUMAN 100 UNITS/ML *VIAL ONE (09:50)
[2018-02-20] MEDS ORDERED: traMADol HCL 50 MG TABLET PO PRN (09:54)
[2018-02-20] MEDS ORDERED: DOCUSATE SODIUM 100 MG CAPSULE (FP) PO PRN (09:54)
--- NOTE | 2018-02-20 10:10 | PDOC ---
Attending Attestation - Resident Resident Name: Cristino Nunez - ED Attending Attestation I have performed the following: I have examined & evaluated the patient, The case was reviewed & discussed with the resident, I agree w/resident's findings & plan - HPI HPI: 02/20/18 10:07 57-year-old male with multiple medical problems including CRI, CVA, and CHF with recent discharge on 02/08 to [facility] now returns with reports of rising creatinine and potassium, also with episode this morning of severe dyspnea on standing to use the restroom. Denies any chest pain or syncope. - Physicial Exam PE: 02/20/18 10:07 Vitals as noted, afebrile Alert, tachypneic No JVD, heart is regular Bibasilar crackles and expiratory wheezes, otherwise good air entry Bilateral ankle edema - Medical Decision Making 02/20/18 10:08 57-year-old male with recent admission for CHF exacerbation returns with VANDA and hyperkalemia and volume overload with dyspnea. Supplemental oxygen, EKG showed no acute changes consistent with hyperkalemia or ischemia Labs notable for creatinine of 2.7, which is elevated for the patient, and potassium of 6, which was treated No leukocytosis, troponin negative Will require readmission, Dr. Huizar and cardiology made aware. Heart Score/ECG Review #1 General ECG Interpretation: Sinus Rhythm, Normal Rate, Normal Intervals ( bifascicular block (RBBB+LAFB)), No acute ischemic changes
--- NOTE | 2018-02-20 10:41 | HP ---
Admitting History and Physical - Primary Care Physician PCP: Ariadna Huizar - Admission Chief Complaint: sob History of Present Illness: ER history 02/20/18 08:08 The patient is a 57M with a PMH of HLD, HTN, CAD, CHF on lasix, CVA (w/ L sided deficit), s/p recent L carotid endarectomy, smoker, COPD, DM, CKD (baseline cr ~ 2), anemia who presents from [facility] after having 2 episodes of SOB after standing up. The patient states that he was in his usual state of health ( currently at [facility] for rehab) and stood up to use the urinal. Both times that he did this, he felt short of breath after sitting back down in bed. He denies any orthopnea, CP, fevers, chills, nausea, vomiting, and abdominal pain. He admits to having transfusions in the past and dark stools but states that the dark stools only happened since he's been taking iron. Pt examined in ER C/O SOB-- better with IV lasix- had labs done in [place]-- renal function abnormal with high potassium. 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, Peripheral Neuropathy, Other (arterial insufficiency s/p left fem -tibial bypass- 2013, rt fem-pop bypass- 2017) Cardiovascular: Yes: CAD, CHF, HTN, Hyperlipdemia, Other (PAD) Pulmonary: Yes: COPD Renal/: Yes: Renal Inusuff Heme/Onc: Yes: Anemia Psych: Yes: Anxiety Endocrine: Yes: Diabetes Mellitus - Past Surgical History Past Surgical History: Yes: Bypass, Carotid Endarterectomy, Stent - Smoking History Smoking history: Former smoker Have you smoked in the past 12 months: No Aproximately how many cigarettes per day: 2 If you are a former smoker, when did you quit?: 09/2016 - Alcohol/Substance Use Hx Alcohol Use: No History of Substance Use: reports: None - Social History ADL: Independent 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 History of Recent Travel: No Home Medications - Allergies Allergies/Adverse Reactions: Allergies Allergy/AdvReac Type Severity Reaction Status Date / Time No Known Drug Allergies Allergy Verified 02/20/18 07:50 - Home Medications Home Medications: Ambulatory Orders Aspirin [ASA -] 81 mg PO DAILY tab.chew 09/18/17 Clopidogrel Bisulfate [Plavix -] 75 mg PO DAILY #30 tablet 10/15/17 Glipizide [Glipizide ER] 5 mg PO DAILY #30 tab.er.24 10/15/17 Tamsulosin HCl [Flomax -] 0.8 mg PO DAILY@0830 #30 tab 10/15/17 Acetaminophen [Tylenol .Regular Strength -] 650 mg PO Q6H PRN tablet 01/29/18 Amlodipine Besylate [Norvasc -] 10 mg PO DAILY tablet 01/29/18 Docusate Sodium [Colace -] 100 mg PO Q8H PRN capsule 01/29/18 Ferrous Sulfate [Feosol] 325 mg PO TIDCM ud 01/29/18 Folic Acid - 1 mg PO DAILY tablet 01/29/18 Rosuvastatin [Crestor -] 40 mg PO HS tablet 01/29/18 Ascorbic Acid [Vitamin C -] 500 mg PO BID 02/06/18 Carvedilol [Coreg -] 12.5 mg PO BID 02/06/18 Furosemide [Lasix -] 40 mg PO DAILY 02/06/18 Insulin Lispro [Humalog Kwikpen U-100] 100 unit SQ ASDIR 02/06/18 Mirtazapine [Remeron -] 7.5 mg PO DAILY 02/06/18 traMADol HCL [Ultram -] 50 mg PO Q6H PRN MDD 4 02/06/18 Furosemide Injection [Lasix *Injection*] 40 mg IVPB DAILY 02/20/18 Family Disease History - Family Disease History Family Disease History: Other: Father ( 62: lung ca), Mother ( 72: colon cancer), Sister (1, healthy) Review of Systems - Review of Systems Constitutional: denies: Chills, Fever Cardiovascular: reports: Edema, Shortness of Breath. denies: Chest Pain Physical Examination Vital Signs: Vital Signs Temperature 98.3 F 02/20/18 07:45 Pulse Rate 85 02/20/18 07:45 Respiratory Rate 20 02/20/18 07:45 Blood Pressure 138/68 02/20/18 07:45 O2 Sat by Pulse Oximetry (%) 99 02/20/18 07:45 Constitutional: Yes: No Distress, Calm Cardiovascular: Yes: Regular Rate and Rhythm Respiratory: Yes: Diminished Gastrointestinal: Yes: Normal Bowel Sounds, Soft, Abdomen, Obese. No: Tenderness Edema: Yes Edema: LLE: 2+, RLE: 2+ Labs: CBC, BMP 02/20/18 08:15 02/20/18 08:15 Imaging - Results Chest X-ray: Image Reviewed (congestion) EKG: Image Reviewed (NSR) Problem List - Problems (1) VANDA (acute kidney injury) Code(s): N17.9 - ACUTE KIDNEY FAILURE, UNSPECIFIED (2) Anemia Code(s): D64.9 - ANEMIA, UNSPECIFIED (3) CHF (congestive heart failure) Code(s): I50.9 - HEART FAILURE, UNSPECIFIED Qualifiers: Heart failure type: unspecified Heart failure chronicity: acute on chronic Qualified Code(s): I50.9 - Heart failure, unspecified (4) ASHD (arteriosclerotic heart disease) Code(s): I25.10 - ATHSCL HEART DISEASE OF [place] CORONARY ARTERY W/O ANG PCTRS (5) CKD (chronic kidney disease) stage 3, GFR 30-59 ml/min Code(s): N18.3 - CHRONIC KIDNEY DISEASE, STAGE 3 (MODERATE) Assessment/Plan PLAN IV Lasix Check Echo Check cardiac enzymes Cardiology and Renal eval monitor renal function and potassium may repeat CXR continue with meds
[2018-02-20] MEDS ORDERED: ASPIRIN 81 MG CHEWABLE TABLETS ONE (11:51)
[2018-02-20] MEDS ORDERED: CARVEDILOL 12.5 MG TABLET (FP) ONE (11:52)
[2018-02-20] MEDS ORDERED: FOLIC ACID 1 MG TABLET (FP) ONE (11:53)
[2018-02-20] MEDS ORDERED: CLOPIDOGREL BISULFATE 75 MG TABLET (FP) ONE (11:54)
[2018-02-20] MEDS ORDERED: amLODIPine BESYLATE 5 MG TABLET (FP) ONE (11:54)
[2018-02-20] MEDS: CLOPIDOGREL BISULFATE 75 MG TABLET (FP) PO SCH (12:16)
[2018-02-20] MEDS: FOLIC ACID 1 MG TABLET (FP) PO SCH (12:16)
[2018-02-20] MEDS: amLODIPine BESYLATE 10 MG TABLET (FP) PO SCH (12:16)
[2018-02-20] MEDS: ASPIRIN 81 MG CHEWABLE TABLETS PO SCH (12:16)
[2018-02-20] MEDS: CARVEDILOL 6.25 MG TABLET (FP) PO SCH ×2 (12:16→21:47)
[2018-02-20 12:29] LABS: URINE APPEARANCE CLEAR; URINE BILIRUBIN NEGATIVE (<2.0 mg/dL); URINE COLOR LTYELLOW; URINE GLUCOSE (UA) 1+ (NEGATIVE); URINE KETONE NEGATIVE (NEGATIVE); URINE LEUK ESTERASE NEGATIVE (NEGATIVE); URINE NITRITE NEGATIVE (NEGATIVE); URINE PROTEIN 2+ (NEGATIVE); URINE UROBILINOGEN NEGATIVE mg/dL (0.2-1.0)
[2018-02-20 12:44] LABS: URINE HYALINE CAST 4 /lpf; URINE MUCUS RARE
[2018-02-20] MEDS: INSULIN SLIDING SCALE (NOVOLOG) 1 VIAL SQ SCH ×2 (12:46→16:41)
--- NOTE | 2018-02-20 12:49 | EKG ---
Test Reason : Blood Pressure : / mmHG Vent. Rate : 083 BPM Atrial Rate : 083 BPM P-R Int : 192 ms QRS Dur : 130 ms QT Int : 390 ms P-R-T Axes : 050 -59 055 degrees QTc Int : 458 ms NORMAL SINUS RHYTHM RIGHT BUNDLE BRANCH BLOCK LEFT ANTERIOR FASCICULAR BLOCK BIFASCICULAR BLOCK ABNORMAL ECG Confirmed by MD ROB, SHELL ([id number]) on 02/20/2018 12:48:34 PM Referred By: Confirmed By:SHELL RIVAS MD
[2018-02-20] MEDS ORDERED: FERROUS SO4 325 MG TABLET (FP) ONE (13:44)
[2018-02-20] MEDS: FERROUS SO4 325 MG TABLET (FP) PO SCH ×2 (13:46→18:14)
[2018-02-20] MEDS: MIRTAZAPINE 15 MG TABLET (FP) PO SCH (21:47)
[2018-02-20] MEDS: ROSUVASTATIN CA 20 MG TABLET (FP) PO SCH (21:47)
[2018-02-21] MEDS: glipiZIDE-XL 5 MG TAB.ER.24 PO SCH (06:08)
[2018-02-21] MEDS: INSULIN SLIDING SCALE (NOVOLOG) 1 VIAL SQ SCH ×3 (06:08→16:40)
--- NOTE | 2018-02-21 09:25 | PN ---
Progress Note, Physician Chief Complaint: 57 M well known to our service wit CAD s/p PCI, CKD, PAD chronic combined systolic and diastolic CHF present to ER with worsening PND and GONG x 1 day found to have worsened PVC on CXR. Denies CP, palps. + Edema, bilaterally History of Present Illness: 1. Left carotid stenosis s/p left carotid endarterectomy several weeks ago 2. Coronary artery disease status post GHAZAL to distal LCx 08/26/2017, pRCA 100% [employer]; ASA and Plavix continued. 3. LV diastolic dysfunction LVEF 50% 4. PAD status post bilateral lower extremity bypass 5. CKD with hyperkalemia on MICHAEL-I since d/terrence, consider re-challenge with ARB once hyperkalemia resolves 6. COPD - Current Medication List Current Medications: Active Medications Acetaminophen (Tylenol -) 650 mg PO Q6H PRN PRN Reason: PAIN LEVEL 4 - 6 Amlodipine Besylate (Norvasc -) 10 mg PO DAILY [facility] Last Admin: 02/20/18 12:16 Dose: 10 mg Aspirin (Asa -) 81 mg PO DAILY [facility] Last Admin: 02/20/18 12:16 Dose: 81 mg Carvedilol (Coreg -) 12.5 mg PO BID [facility] Last Admin: 02/20/18 21:47 Dose: 12.5 mg Clopidogrel Bisulfate (Plavix -) 75 mg PO DAILY [facility] Last Admin: 02/20/18 12:16 Dose: 75 mg Docusate Sodium (Colace -) 100 mg PO TID PRN PRN Reason: CONSTIPATION Ferrous Sulfate (Feosol -) 325 mg PO TIDCM [facility] Last Admin: 02/20/18 18:14 Dose: Not Given Folic Acid (Folic Acid -) 1 mg PO DAILY [facility] Last Admin: 02/20/18 12:16 Dose: 1 mg Furosemide (Lasix Injection -) 60 mg IVPUSH DAILY [facility] Glipizide (Glucotrol Xl -) 5 mg PO DAILY@0700 [facility] Last Admin: 02/21/18 06:08 Dose: 5 mg Insulin Aspart (Novolog Vial Sliding Scale -) 1 vial SQ TIDAC [facility]; Protocol Last Admin: 02/21/18 06:08 Dose: Not Given Mirtazapine (Remeron -) 7.5 mg PO HS [facility] Last Admin: 02/20/18 21:47 Dose: 7.5 mg Rosuvastatin Calcium (Crestor -) 40 mg PO HS [facility] Last Admin: 02/20/18 21:47 Dose: 40 mg Tamsulosin HCl (Flomax -) 0.8 mg PO DAILY@0830 [facility] Tramadol HCl (Ultram -) 50 mg PO Q6H PRN PRN Reason: PAIN LEVEL 6-10 - Objective Vital Signs: Vital Signs Temperature 98.0 F 02/21/18 06:00 Pulse Rate 85 02/21/18 08:51 Respiratory Rate 20 02/21/18 08:51 Blood Pressure 148/70 02/21/18 08:51 O2 Sat by Pulse Oximetry (%) 97 02/21/18 08:43 Constitutional: Yes: Calm Eyes: Yes: Conjunctiva Clear Cardiovascular: Yes: Regular Rate and Rhythm Respiratory: Yes: Other (bilateral rales.) Gastrointestinal: Yes: Soft Edema: Yes Edema: LLE: 2+, RLE: 2+ Neurological: Yes: Alert, Oriented Labs: CBC, BMP 02/20/18 08:15 02/20/18 08:15 Laboratory Tests 01/28/18 07:00 WBC 5.7 Hgb 7.9 L Plt Count 178 - ....Imaging Chest X-ray: Image Reviewed (increased PVC) EKG: Image Reviewed (ECG: NSR 83bpm, RBBB, LAFB) Other: Other (Recent echo here EF 50-55%, diastolic dysfx. No sig valve disease) Assessment/Plan 1. Left carotid stenosis s/p left carotid endarterectomy several weeks ago 2. Coronary artery disease status post GHAZAL to distal LCx 08/26/2017, pRCA 100% [employer]; ASA and Plavix continued. 3. LV diastolic dysfunction LVEF 50% 4. PAD status post bilateral lower extremity bypass 5. CKD with hyperkalemia on MICHAEL-I since d/terrence, consider re-challenge with ARB once hyperkalemia resolves 6. COPD Now with acute on chronic diastolic CHF REC: 1. Lasix 60mg IV daily 2. Daily BMP to follow renal fx 3. Cont Carvediolol, hold ARB (advanced CKD) 4. Tele to r/o occult arrhythmias precipitating CHF 5. Low Na+ diet 6. Daily weights 7. DVT prophylaxis Will follow
[2018-02-21] MEDS: FERROUS SO4 325 MG TABLET (FP) PO SCH ×3 (09:32→16:40)
[2018-02-21] MEDS: CARVEDILOL 6.25 MG TABLET (FP) PO SCH ×2 (09:32→21:23)
[2018-02-21] MEDS: ASPIRIN 81 MG CHEWABLE TABLETS PO SCH (09:32)
[2018-02-21] MEDS: TAMSULOSIN HCL 0.4 MG CAP PO SCH (09:32)
[2018-02-21] MEDS: amLODIPine BESYLATE 10 MG TABLET (FP) PO SCH (09:32)
[2018-02-21] MEDS: FOLIC ACID 1 MG TABLET (FP) PO SCH (09:32)
[2018-02-21] MEDS: CLOPIDOGREL BISULFATE 75 MG TABLET (FP) PO SCH (09:32)
[2018-02-21] MEDS ORDERED: FUROSEMIDE 40 MG/4 ML INJECTABLE VIAL IVPUSH SCH (10:00)
--- NOTE | 2018-02-21 11:57 | PN ---
Progress Note (short form) - Note Progress Note: still SOB Vital Signs - 24 hr 02/20/18 02/20/18 02/20/18 12:14 17:00 17:58 Temperature 98.6 F Pulse Rate 82 Pulse Rate [ 85 82 Right] Respiratory 18 20 18 Rate Blood Pressure 144/73 Blood Pressure 141/64 130/66 [Right Arm] O2 Sat by Pulse 100 100 Oximetry (%) 02/20/18 02/20/18 02/21/18 21:00 22:00 01:56 Temperature 98.6 F 98.4 F Pulse Rate 82 84 Pulse Rate [ Right] Respiratory 18 18 18 Rate Blood Pressure 140/68 161/79 Blood Pressure [Right Arm] O2 Sat by Pulse 96 Oximetry (%) 02/21/18 02/21/18 02/21/18 06:00 08:43 08:51 Temperature 98.0 F Pulse Rate 78 85 Pulse Rate [ Right] Respiratory 18 18 20 Rate Blood Pressure 135/61 148/70 Blood Pressure [Right Arm] O2 Sat by Pulse 97 Oximetry (%) Current Medications Generic Name Dose Route Start Last Admin Trade Name Freq PRN Reason Stop Dose Admin Acetaminophen 650 mg 02/20/18 09:54 Tylenol - PO Q6H PRN PAIN LEVEL 4 - 6 Amlodipine Besylate 10 mg 02/20/18 10:00 02/21/18 09:32 Norvasc - PO 10 mg DAILY [facility] Administration Aspirin 81 mg 02/20/18 10:00 02/21/18 09:32 Asa - PO 81 mg DAILY [facility] Administration Carvedilol 12.5 mg 02/20/18 10:00 02/21/18 09:32 Coreg - PO 12.5 mg BID [facility] Administration Clopidogrel Bisulfate 75 mg 02/20/18 10:00 02/21/18 09:32 Plavix - PO 75 mg DAILY [facility] Administration Docusate Sodium 100 mg 02/20/18 09:54 Colace - PO TID PRN CONSTIPATION Ferrous Sulfate 325 mg 02/20/18 12:00 02/21/18 09:32 Feosol - PO 325 mg TIDCM [facility] Administration Folic Acid 1 mg 02/20/18 10:00 02/21/18 09:32 Folic Acid - PO 1 mg DAILY [facility] Administration Furosemide 60 mg 02/21/18 10:00 02/21/18 09:31 Lasix Injection - IVPUSH 60 mg DAILY [facility] Administration Glipizide 5 mg 02/21/18 07:00 02/21/18 06:08 Glucotrol Xl - PO 5 mg DAILY@0700 [facility] Administration Insulin Aspart 1 vial 02/20/18 11:00 02/21/18 11:30 Novolog Vial Sliding Scale - SQ Not Given TIDAC [facility] Protocol Mirtazapine 7.5 mg 02/20/18 22:00 02/20/18 21:47 Remeron - PO 7.5 mg HS [facility] Administration Rosuvastatin Calcium 40 mg 02/20/18 22:00 02/20/18 21:47 Crestor - PO 40 mg HS [facility] Administration Tamsulosin HCl 0.8 mg 02/21/18 08:30 02/21/18 09:32 Flomax - PO 0.8 mg DAILY@0830 [facility] Administration Tramadol HCl 50 mg 02/20/18 09:54 Ultram - PO Q6H PRN PAIN LEVEL 6-10 Laboratory Results - last 24 hr 02/20/18 02/20/18 02/20/18 11:59 12:11 12:11 POC Glucometer 56.54754 115.64761 Urine Color Ltyellow Urine Appearance Clear Urine pH 5.0 Ur Specific Divide 1.013 Urine Protein 2+ H Urine Glucose (UA) 1+ H Urine Ketones Negative Urine Blood Negative Urine Nitrite Negative Urine Bilirubin Negative Urine Urobilinogen Negative Ur Leukocyte Esterase Negative Urine WBC (Auto) 1 Urine RBC (Auto) 2 Hyaline Casts 4 Urine Mucus Rare 02/20/18 02/20/18 02/21/18 14:48 21:46 05:38 POC Glucometer 171.27520 232 150 Urine Color Urine Appearance Urine pH Ur Specific Divide Urine Protein Urine Glucose (UA) Urine Ketones Urine Blood Urine Nitrite Urine Bilirubin Urine Urobilinogen Ur Leukocyte Esterase Urine WBC (Auto) Urine RBC (Auto) Hyaline Casts Urine Mucus S1 S2 RRR Lungs decreased Abd-soft,Nt edema PLAN IV Lasix Cardiology and Renal eval noted recheck CBC renal function improving Problem List - Problems (1) VANDA (acute kidney injury) Code(s): N17.9 - ACUTE KIDNEY FAILURE, UNSPECIFIED (2) CHF (congestive heart failure) Code(s): I50.9 - HEART FAILURE, UNSPECIFIED Qualifiers: Heart failure type: unspecified Heart failure chronicity: acute on chronic Qualified Code(s): I50.9 - Heart failure, unspecified (3) ASHD (arteriosclerotic heart disease) Code(s): I25.10 - ATHSCL HEART DISEASE OF [place] CORONARY ARTERY W/O ANG PCTRS (4) Acute on chronic diastolic CHF (congestive heart failure) Code(s): I50.33 - ACUTE ON CHRONIC DIASTOLIC (CONGESTIVE) HEART FAILURE
--- NOTE | 2018-02-21 12:19 | CONSULT ---
Consult - text type - Consultation Consultation Note: Renal Consult for VANDA and Hyperkalemia This is a 57 year old gentleman with hx of CKD stage 3b, Hypertension, CAD, CHF , CVA, COPD, DM who presented from [place] with SOB and admitted with CHF exacerbation with VANDA and hyperkalemia. Denies any NSIAD use, no contrast exposure. + GONG and Orthopnea. No N/V/D. No CP, fever or chills. Making urine PMHx: as above Allergies: NKDA Family Hx: NC Social Hx: No T/A/D ROS: as per HPI Home Medications Medication Instructions Recorded Aspirin [ASA -] 81 mg PO DAILY tab.chew 09/18/17 Clopidogrel Bisulfate [Plavix -] 75 mg PO DAILY #30 tablet 10/15/17 Glipizide [Glipizide ER] 5 mg PO DAILY #30 tab.er.24 10/15/17 Tamsulosin HCl [Flomax -] 0.8 mg PO DAILY@0830 #30 tab 10/15/17 Acetaminophen [Tylenol .Regular 650 mg PO Q6H PRN tablet 01/29/18 Strength -] Amlodipine Besylate [Norvasc -] 10 mg PO DAILY tablet 01/29/18 Docusate Sodium [Colace -] 100 mg PO Q8H PRN capsule 01/29/18 Ferrous Sulfate [Feosol] 325 mg PO TIDCM ud 01/29/18 Folic Acid - 1 mg PO DAILY tablet 01/29/18 Rosuvastatin [Crestor -] 40 mg PO HS tablet 01/29/18 Ascorbic Acid [Vitamin C -] 500 mg PO BID 02/06/18 Carvedilol [Coreg -] 12.5 mg PO BID 02/06/18 Furosemide [Lasix -] 40 mg PO DAILY 02/06/18 Insulin Lispro [Humalog Kwikpen 100 unit SQ ASDIR 02/06/18 U-100] Mirtazapine [Remeron -] 7.5 mg PO DAILY 02/06/18 traMADol HCL [Ultram -] 50 mg PO Q6H PRN MDD 4 02/06/18 Furosemide Injection [Lasix 40 mg IVPB DAILY 02/20/18 *Injection*] Vital Signs Temperature 98.0 F 02/21/18 06:00 Pulse Rate 85 02/21/18 08:51 Respiratory Rate 20 02/21/18 08:51 Blood Pressure 148/70 02/21/18 08:51 O2 Sat by Pulse Oximetry (%) 97 02/21/18 08:43 Intake & Output 02/18/18 02/19/18 02/20/18 02/21/18 23:59 23:59 23:59 23:59 Intake Total 670 250 Output Total 400 350 Balance 270 -100 Weight 95.254 kg NAD awake and alert neck supple, no JVD RRR, No M/R Dec BS + edema in LE no bladder distension CBC, BMP 02/20/18 08:15 02/20/18 08:15 Current Medications Acetaminophen (Tylenol -) 650 mg PO Q6H PRN PRN Reason: PAIN LEVEL 4 - 6 Amlodipine Besylate (Norvasc -) 10 mg PO DAILY [facility] Last Admin: 02/21/18 09:32 Dose: 10 mg Aspirin (Asa -) 81 mg PO DAILY [facility] Last Admin: 02/21/18 09:32 Dose: 81 mg Carvedilol (Coreg -) 12.5 mg PO BID [facility] Last Admin: 02/21/18 09:32 Dose: 12.5 mg Clopidogrel Bisulfate (Plavix -) 75 mg PO DAILY [facility] Last Admin: 02/21/18 09:32 Dose: 75 mg Docusate Sodium (Colace -) 100 mg PO TID PRN PRN Reason: CONSTIPATION Ferrous Sulfate (Feosol -) 325 mg PO TIDCM [facility] Last Admin: 02/21/18 09:32 Dose: 325 mg Folic Acid (Folic Acid -) 1 mg PO DAILY [facility] Last Admin: 02/21/18 09:32 Dose: 1 mg Furosemide (Lasix Injection -) 60 mg IVPUSH DAILY [facility] Last Admin: 02/21/18 09:31 Dose: 60 mg Glipizide (Glucotrol Xl -) 5 mg PO DAILY@0700 [facility] Last Admin: 02/21/18 06:08 Dose: 5 mg Insulin Aspart (Novolog Vial Sliding Scale -) 1 vial SQ TIDAC [facility]; Protocol Last Admin: 02/21/18 11:30 Dose: Not Given Mirtazapine (Remeron -) 7.5 mg PO [facility] Last Admin: 02/20/18 21:47 Dose: 7.5 mg Rosuvastatin Calcium (Crestor -) 40 mg PO [facility] Last Admin: 02/20/18 21:47 Dose: 40 mg Tamsulosin HCl (Flomax -) 0.8 mg PO DAILY@0830 [facility] Last Admin: 02/21/18 09:32 Dose: 0.8 mg Tramadol HCl (Ultram -) 50 mg PO Q6H PRN PRN Reason: PAIN LEVEL 6-10 57 year old gentleman with hx of CKD stage 3b, Hypertension, CAD, CHF, CVA, COPD, DM who presented from [place] with SOB and admitted with CHF exacerbation with VANDA and hyperkalemia. #VANDA r/o cardio-renal syndrome #Hyperkalemia in setting of MICHAEL/CHF and VANDA #CHF exacerbation #Anemia #BPH will treat with IV diuretics with goal of improving cardiac output will give additonal IV Lasix now and increase to BID Give Kayexalate 30g PO again change diet to low potassium Cardiology following check iron profile continue floman no michael or arb at this time dose all meds for CrCl < 20 Thank you will follow Prakash Garcia DO
[2018-02-21 13:52] LABS: ANION GAP 7 MMOL/L (8-16); BLOOD UREA NITROGEN 86 mg/dL (7-18); CALCIUM 8.2 mg/dL (8.5-10.1); CHLORIDE 113 mmol/L (98-107); CO2 23 mmol/L (21-32); GLUCOSE,RANDOM 121 mg/dL (74-106); POTASSIUM 5.9 mmol/L (3.5-5.1); SODIUM 142 mmol/L (136-145)
[2018-02-21] MEDS ORDERED: SODIUM POLYSTYRENE SULFONATE 15 GM/60 ML BOTTLE PO ONE (15:35)
[2018-02-21] MEDS ORDERED: FUROSEMIDE 40 MG/4 ML INJECTABLE VIAL IVPUSH ONE (15:36)
[2018-02-21] MEDS: ROSUVASTATIN CA 20 MG TABLET (FP) PO SCH (21:23)
[2018-02-21] MEDS: MIRTAZAPINE 15 MG TABLET (FP) PO SCH (21:23)
[2018-02-21 21:24] LABS: ANION GAP 5 MMOL/L (8-16); BLOOD UREA NITROGEN 89 mg/dL (7-18); CALCIUM 8.1 mg/dL (8.5-10.1); CHLORIDE 113 mmol/L (98-107); CO2 23 mmol/L (21-32); CREATININE 3.1 mg/dL (0.55-1.3); GLUCOSE,RANDOM 95 mg/dL (74-106); POTASSIUM 5.9 mmol/L (3.5-5.1); SODIUM 142 mmol/L (136-145)
[2018-02-21] MEDS: SODIUM POLYSTYRENE SULFONATE 15 GM/60 ML BOTTLE PO ONE ×2 (23:24→23:30)
[2018-02-22] MEDS: FUROSEMIDE 40 MG/4 ML INJECTABLE VIAL IVPUSH SCH ×2 (06:03→14:48)
[2018-02-22] MEDS: glipiZIDE-XL 5 MG TAB.ER.24 PO SCH (06:03)
[2018-02-22] MEDS: INSULIN SLIDING SCALE (NOVOLOG) 1 VIAL SQ SCH ×3 (06:03→16:44)
[2018-02-22 07:08] LABS: ANION GAP 8 MMOL/L (8-16); BLOOD UREA NITROGEN 85 mg/dL (7-18); CALCIUM 7.7 mg/dL (8.5-10.1); CHLORIDE 115 mmol/L (98-107); CO2 21 mmol/L (21-32); CREATININE 2.8 mg/dL (0.55-1.3); GLUCOSE,RANDOM 72 mg/dL (74-106); MAGNESIUM 2.7 mg/dL (1.8-2.4); PHOSPHOROUS 5.3 mg/dL (2.5-4.9); SODIUM 144 mmol/L (136-145)
--- NOTE | 2018-02-22 08:47 | PN ---
Progress Note, Physician Chief Complaint: HyperK+ resolved TELE: NSR w/ RBBB History of Present Illness: Feeling better - Current Medication List Current Medications: Active Medications Acetaminophen (Tylenol -) 650 mg PO Q6H PRN PRN Reason: PAIN LEVEL 4 - 6 Amlodipine Besylate (Norvasc -) 10 mg PO DAILY [facility] Last Admin: 02/21/18 09:32 Dose: 10 mg Aspirin (Asa -) 81 mg PO DAILY [facility] Last Admin: 02/21/18 09:32 Dose: 81 mg Carvedilol (Coreg -) 12.5 mg PO BID [facility] Last Admin: 02/21/18 21:23 Dose: 12.5 mg Clopidogrel Bisulfate (Plavix -) 75 mg PO DAILY [facility] Last Admin: 02/21/18 09:32 Dose: 75 mg Docusate Sodium (Colace -) 100 mg PO TID PRN PRN Reason: CONSTIPATION Ferrous Sulfate (Feosol -) 325 mg PO TIDCM [facility] Last Admin: 02/21/18 16:40 Dose: 325 mg Folic Acid (Folic Acid -) 1 mg PO DAILY [facility] Last Admin: 02/21/18 09:32 Dose: 1 mg Furosemide (Lasix Injection -) 60 mg IVPUSH BID@0600,1400 [facility] Last Admin: 02/22/18 06:03 Dose: 60 mg Glipizide (Glucotrol Xl -) 5 mg PO DAILY@0700 [facility] Last Admin: 02/22/18 06:03 Dose: 5 mg Insulin Aspart (Novolog Vial Sliding Scale -) 1 vial SQ TIDAC [facility]; Protocol Last Admin: 02/22/18 06:03 Dose: Not Given Mirtazapine (Remeron -) 7.5 mg PO [facility] Last Admin: 02/21/18 21:23 Dose: 7.5 mg Rosuvastatin Calcium (Crestor -) 40 mg PO [facility] Last Admin: 02/21/18 21:23 Dose: 40 mg Tamsulosin HCl (Flomax -) 0.8 mg PO DAILY@0830 [facility] Last Admin: 02/21/18 09:32 Dose: 0.8 mg Tramadol HCl (Ultram -) 50 mg PO Q6H PRN PRN Reason: PAIN LEVEL 6-10 - Objective Vital Signs: Vital Signs Temperature 97.6 F 02/22/18 06:00 Pulse Rate 81 02/22/18 06:00 Respiratory Rate 18 02/22/18 06:00 Blood Pressure 143/78 02/22/18 06:00 O2 Sat by Pulse Oximetry (%) 96 02/21/18 21:00 Constitutional: Yes: Calm Cardiovascular: Yes: Regular Rate and Rhythm Respiratory: Yes: Other (decreased breath sounds at bases) Gastrointestinal: Yes: Soft Edema: Yes Edema: LLE: 2+, RLE: 2+ Neurological: Yes: Alert, Oriented Labs: CBC, BMP 02/20/18 08:15 02/22/18 05:30 Laboratory Tests 02/22/18 05:30 Sodium 144 Potassium 5.0 BUN 85 H Creatinine 2.8 H Magnesium 2.7 H - ....Imaging EKG: Image Reviewed Assessment/Plan Assessment/Plan 1. Left carotid stenosis s/p left carotid endarterectomy several weeks ago 2. Coronary artery disease status post GHAZAL to distal LCx 08/26/2017, pRCA 100% [employer]GER; ASA and Plavix continued. 3. LV diastolic dysfunction LVEF 50% 4. PAD status post bilateral lower extremity bypass 5. CKD with hyperkalemia 6. COPD Now with acute on chronic diastolic CHF REC: 1. Lasix 60mg IV BID- clinically improving, creat stable. HyperK+ resolved. 2. Daily BMP to follow renal fx, K+ 3. Cont Carvediolol, hold ARB (advanced CKD) 4. Tele to r/o occult arrhythmias precipitating CHF- thus far negative 5. Low Na+ diet 6. Daily weights 7. DVT prophylaxis
[2018-02-22] MEDS: FERROUS SO4 325 MG TABLET (FP) PO SCH ×3 (08:49→16:44)
[2018-02-22] MEDS: TAMSULOSIN HCL 0.4 MG CAP PO SCH (08:49)
[2018-02-22] MEDS: CLOPIDOGREL BISULFATE 75 MG TABLET (FP) PO SCH (09:37)
[2018-02-22] MEDS: ASPIRIN 81 MG CHEWABLE TABLETS PO SCH (09:37)
[2018-02-22] MEDS: amLODIPine BESYLATE 10 MG TABLET (FP) PO SCH (09:37)
[2018-02-22] MEDS: FOLIC ACID 1 MG TABLET (FP) PO SCH (09:37)
[2018-02-22] MEDS: CARVEDILOL 6.25 MG TABLET (FP) PO SCH ×2 (09:37→22:26)
[2018-02-22 11:00] LABS: URINE APPEARANCE CLEAR; URINE BILIRUBIN NEGATIVE (<2.0 mg/dL); URINE COLOR STRAW; URINE GLUCOSE (UA) NEGATIVE (NEGATIVE); URINE KETONE NEGATIVE (NEGATIVE); URINE LEUK ESTERASE NEGATIVE (NEGATIVE); URINE NITRITE NEGATIVE (NEGATIVE); URINE PROTEIN 2+ (NEGATIVE); URINE UROBILINOGEN NEGATIVE mg/dL (0.2-1.0)
[2018-02-22 11:06] LABS: EPI CELLS RARE /HPF (FEW); URINE MUCUS RARE
--- NOTE | 2018-02-22 12:03 | PN ---
Progress Note (short form) - Note Progress Note: feeling better no chest pain vitals stable Lungs decreased Abd-soft,Nt edema Laboratory Tests 02/22/18 05:30 Sodium 144 Potassium 5.0 Chloride 115 H Carbon Dioxide 21 Anion Gap 8 BUN 85 H Creatinine 2.8 H Random Glucose 72 L Calcium 7.7 L Phosphorus 5.3 H Magnesium 2.7 H PLAN IV Lasix monitor potassium recheck CBC renal function improving Problem List - Problems (1) VANDA (acute kidney injury) Code(s): N17.9 - ACUTE KIDNEY FAILURE, UNSPECIFIED (2) CHF (congestive heart failure) Code(s): I50.9 - HEART FAILURE, UNSPECIFIED Qualifiers: Heart failure type: unspecified Heart failure chronicity: acute on chronic Qualified Code(s): I50.9 - Heart failure, unspecified (3) ASHD (arteriosclerotic heart disease) Code(s): I25.10 - ATHSCL HEART DISEASE OF [place] CORONARY ARTERY W/O ANG PCTRS (4) Acute on chronic diastolic CHF (congestive heart failure) Code(s): I50.33 - ACUTE ON CHRONIC DIASTOLIC (CONGESTIVE) HEART FAILURE
--- NOTE | 2018-02-22 14:05 | PN ---
Progress Note, Physician Chief Complaint: The patient seen in telemetry. Denies any new complaints. Extremely edematous. reports "feeling better" Maintains good urine output. - Current Medication List Current Medications: Active Medications Acetaminophen (Tylenol -) 650 mg PO Q6H PRN PRN Reason: PAIN LEVEL 4 - 6 Amlodipine Besylate (Norvasc -) 10 mg PO DAILY [facility] Last Admin: 02/22/18 09:37 Dose: 10 mg Aspirin (Asa -) 81 mg PO DAILY [facility] Last Admin: 02/22/18 09:37 Dose: 81 mg Carvedilol (Coreg -) 12.5 mg PO BID [facility] Last Admin: 02/22/18 09:37 Dose: 12.5 mg Clopidogrel Bisulfate (Plavix -) 75 mg PO DAILY [facility] Last Admin: 02/22/18 09:37 Dose: 75 mg Docusate Sodium (Colace -) 100 mg PO TID PRN PRN Reason: CONSTIPATION Ferrous Sulfate (Feosol -) 325 mg PO TIDCM [facility] Last Admin: 02/22/18 12:15 Dose: 325 mg Folic Acid (Folic Acid -) 1 mg PO DAILY [facility] Last Admin: 02/22/18 09:37 Dose: 1 mg Furosemide (Lasix Injection -) 60 mg IVPUSH BID@0600,1400 [facility] Last Admin: 02/22/18 06:03 Dose: 60 mg Glipizide (Glucotrol Xl -) 5 mg PO DAILY@0700 [facility] Last Admin: 02/22/18 06:03 Dose: 5 mg Insulin Aspart (Novolog Vial Sliding Scale -) 1 vial SQ TIDAC [facility]; Protocol Last Admin: 02/22/18 12:14 Dose: 2 units Mirtazapine (Remeron -) 7.5 mg PO [facility] Last Admin: 02/21/18 21:23 Dose: 7.5 mg Rosuvastatin Calcium (Crestor -) 40 mg PO [facility] Last Admin: 02/21/18 21:23 Dose: 40 mg Tamsulosin HCl (Flomax -) 0.8 mg PO DAILY@0830 [facility] Last Admin: 02/22/18 08:49 Dose: 0.8 mg Tramadol HCl (Ultram -) 50 mg PO Q6H PRN PRN Reason: PAIN LEVEL 6-10 - Objective Vital Signs: Vital Signs Temperature 98 F 10/25/18 09:44 Pulse Rate 82 02/22/18 09:44 Respiratory Rate 18 02/22/18 09:44 Blood Pressure 140/72 02/22/18 09:44 O2 Sat by Pulse Oximetry (%) 96 02/21/18 21:00 Constitutional: Yes: Well Nourished, Calm Eyes: Yes: Conjunctiva Clear HENT: Yes: Normocephalic Neck: Yes: Trachea Midline Cardiovascular: Yes: Regular Rate and Rhythm, S1, S2 Respiratory: Yes: CTA Bilaterally, Diminished Gastrointestinal: Yes: Normal Bowel Sounds, Abdomen, Obese Genitourinary: No: CVA Tenderness - Left, CVA Tenderness - Right Edema: Yes Edema: LLE: 3+, RLE: 3+ Neurological: Yes: Alert, Oriented Labs: CBC, BMP 02/20/18 08:15 02/22/18 05:30 Problem List - Problems (1) VANDA (acute kidney injury) Code(s): N17.9 - ACUTE KIDNEY FAILURE, UNSPECIFIED (2) CHF (congestive heart failure) Code(s): I50.9 - HEART FAILURE, UNSPECIFIED Qualifiers: Heart failure type: unspecified Heart failure chronicity: acute on chronic Qualified Code(s): I50.9 - Heart failure, unspecified (3) ASHD (arteriosclerotic heart disease) Code(s): I25.10 - ATHSCL HEART DISEASE OF [place] CORONARY ARTERY W/O ANG PCTRS (4) Anemia Code(s): D64.9 - ANEMIA, UNSPECIFIED Qualifiers: Anemia type: unspecified type Qualified Code(s): D64.9 - Anemia, unspecified (5) Arterial insufficiency of lower extremity Code(s): I73.9 - PERIPHERAL VASCULAR DISEASE, UNSPECIFIED (6) CAD (coronary artery disease) Code(s): I25.10 - ATHSCL HEART DISEASE OF [place] CORONARY ARTERY W/O ANG PCTRS Qualifiers: Coronary Disease-Associated Artery/Lesion type: [place] artery Associated angina: with stable angina (7) Cellulitis Code(s): L03.90 - CELLULITIS, UNSPECIFIED Qualifiers: Site of cellulitis: extremity Site of cellulitis of extremity: lower extremity Laterality: left Qualified Code(s): L03.116 - Cellulitis of left lower limb (8) Diabetes mellitus, insulin dependent (IDDM), controlled Code(s): E10.9 - TYPE 1 DIABETES MELLITUS WITHOUT COMPLICATIONS (9) Diabetic neuropathy Code(s): E11.40 - TYPE 2 DIABETES MELLITUS WITH DIABETIC NEUROPATHY, UNSP Qualifiers: Diabetes mellitus type: due to underlying condition (10) Diastolic CHF Code(s): I50.30 - UNSPECIFIED DIASTOLIC (CONGESTIVE) HEART FAILURE Qualifiers: Heart failure chronicity: chronic Qualified Code(s): I50.32 - Chronic diastolic (congestive) heart failure (11) Edema Code(s): R60.9 - EDEMA, UNSPECIFIED Qualifiers: Edema type: unspecified Qualified Code(s): R60.9 - Edema, unspecified (12) Hyperkalemia Code(s): E87.5 - HYPERKALEMIA Assessment/Plan 57 year old gentleman with hx of CKD stage 3b, Hypertension, CAD, CHF, CVA, COPD , DM who [place] with SOB and admitted with CHF exacerbation with VANDA and hyperkalemia. Hyperkalemia...resolving. Massive fluid overload. Will continue the loop diuretics. VANDA, with a major component of Hemodynamic insufficiency. Some improvement in azotemia is noted. Will continue to monitor the renal functions with you. Thank you. Will follow with you. Susie Brooke MD
[2018-02-22] MEDS: MIRTAZAPINE 15 MG TABLET (FP) PO SCH (22:25)
[2018-02-22] MEDS: ROSUVASTATIN CA 20 MG TABLET (FP) PO SCH (22:26)
[2018-02-23] MEDS: FUROSEMIDE 40 MG/4 ML INJECTABLE VIAL IVPUSH SCH (06:08)
[2018-02-23] MEDS: glipiZIDE-XL 5 MG TAB.ER.24 PO SCH (06:09)
[2018-02-23] MEDS: INSULIN SLIDING SCALE (NOVOLOG) 1 VIAL SQ SCH ×3 (06:13→18:14)
[2018-02-23 07:11] LABS: HEMATOCRIT 23.4 % (35.4-49); HEMOGLOBIN 7.7 GM/dL (11.7-16.9); MCH 30.8 pg (25.7-33.7); MEAN CELL VOLUME 93.2 fl (80-96); PLATELET COUNT 124 K/MM3 (134-434); RBC 2.51 M/mm3 (4.00-5.60); RDW 15.8 % (11.9-15.9); WHITE BLOOD COUNT 4.8 K/mm3 (4.0-10.0)
[2018-02-23 07:40] LABS: ANION GAP 8 MMOL/L (8-16); BLOOD UREA NITROGEN 96 mg/dL (7-18); CALCIUM 7.6 mg/dL (8.5-10.1); CHLORIDE 110 mmol/L (98-107); CO2 24 mmol/L (21-32); GLUCOSE,RANDOM 97 mg/dL (74-106); SODIUM 143 mmol/L (136-145)
--- NOTE | 2018-02-23 08:56 | PN ---
Progress Note, Physician Chief Complaint: feeling better Less SOB TELE: NSR BUN and creatinine bumped - Current Medication List Current Medications: Active Medications Acetaminophen (Tylenol -) 650 mg PO Q6H PRN PRN Reason: PAIN LEVEL 4 - 6 Amlodipine Besylate (Norvasc -) 10 mg PO DAILY [facility] Last Admin: 02/22/18 09:37 Dose: 10 mg Aspirin (Asa -) 81 mg PO DAILY [facility] Last Admin: 02/22/18 09:37 Dose: 81 mg Carvedilol (Coreg -) 12.5 mg PO BID [facility] Last Admin: 02/22/18 22:26 Dose: 12.5 mg Clopidogrel Bisulfate (Plavix -) 75 mg PO DAILY [facility] Last Admin: 02/22/18 09:37 Dose: 75 mg Docusate Sodium (Colace -) 100 mg PO TID PRN PRN Reason: CONSTIPATION Ferrous Sulfate (Feosol -) 325 mg PO TIDCM [facility] Last Admin: 02/22/18 16:44 Dose: 325 mg Folic Acid (Folic Acid -) 1 mg PO DAILY [facility] Last Admin: 02/22/18 09:37 Dose: 1 mg Glipizide (Glucotrol Xl -) 5 mg PO DAILY@0700 [facility] Last Admin: 02/23/18 06:09 Dose: 5 mg Insulin Aspart (Nov[facility] Vial Sliding Scale -) [facility] Last Admin: 02/23/18 06:13 Dose: Not Given Mirtazapine (Remeron -) 7.5 mg PO [facility] Last Admin: 02/22/18 22:25 Dose: 7.5 mg Rosuvastatin Calcium (Crestor -) 40 mg PO [facility] Last Admin: 02/22/18 22:26 Dose: 40 mg Tamsulosin HCl (Flomax -) 0.8 mg PO DAILY@0830 [facility] Last Admin: 02/22/18 08:49 Dose: 0.8 mg Tramadol HCl (Ultram -) 50 mg PO Q6H PRN PRN Reason: PAIN LEVEL 6-10 - Objective Vital Signs: Vital Signs Temperature 98.2 F 02/23/18 06:00 Pulse Rate 75 02/23/18 06:00 Respiratory Rate 20 02/23/18 06:00 Blood Pressure 116/63 02/23/18 06:00 O2 Sat by Pulse Oximetry (%) 95 02/22/18 21:00 Constitutional: Yes: Calm Cardiovascular: Yes: Regular Rate and Rhythm Respiratory: Yes: CTA Bilaterally Gastrointestinal: Yes: Soft Edema: Yes Edema: LLE: 1+, RLE: 1+ Neurological: Yes: Alert, Oriented ...Motor Strength: WNL Labs: CBC, BMP 02/23/18 06:28 02/23/18 06:28 - ....Imaging EKG: Image Reviewed Assessment/Plan Assessment/Plan 1. Left carotid stenosis s/p left carotid endarterectomy several weeks ago 2. Coronary artery disease status post GHAZAL to distal LCx 08/26/2017, pRCA 100% [employer]PL[employer]KER; ASA and Plavix continued. 3. LV diastolic dysfunction LVEF 50% 4. PAD status post bilateral lower extremity bypass 5. CKD with hyperkalemia 6. COPD 7. Chronic anemia Now with acute on chronic diastolic CHF REC: 1. Clinically improved, hold Lasix- BUN/Creat rising. 2. Daily BMP to follow renal fx, K+ 3. Cont Carvediolol, hold ARB (advanced CKD) 4. Tele to r/o occult arrhythmias precipitating CHF- thus far negative 5. Low Na+ diet 6. Daily weights 7. DVT prophylaxis 8. Anemia w/u as per PMD, likely chronic dz (guaiac -)
[2018-02-23] MEDS: amLODIPine BESYLATE 10 MG TABLET (FP) PO SCH (09:54)
[2018-02-23] MEDS: CLOPIDOGREL BISULFATE 75 MG TABLET (FP) PO SCH (09:54)
[2018-02-23] MEDS: TAMSULOSIN HCL 0.4 MG CAP PO SCH (09:54)
[2018-02-23] MEDS: FOLIC ACID 1 MG TABLET (FP) PO SCH (09:54)
[2018-02-23] MEDS: CARVEDILOL 6.25 MG TABLET (FP) PO SCH ×2 (09:54→21:53)
[2018-02-23] MEDS: FERROUS SO4 325 MG TABLET (FP) PO SCH ×3 (09:54→17:49)
[2018-02-23] MEDS: ASPIRIN 81 MG CHEWABLE TABLETS PO SCH (09:55)
--- NOTE | 2018-02-23 10:18 | PN ---
Progress Note (short form) - Note Progress Note: pt seen/ examined. Chart reviewed. Comfortable Feels better Vital Signs Temp 98 F 02/23/18 10:01 Pulse 80 02/23/18 10:01 Resp 20 02/23/18 10:01 BP 113/43 L 02/23/18 10:01 Pulse Ox 95 02/22/18 21:00 Intake & Output 02/22/18 02/22/18 02/23/18 11:59 23:59 11:59 Intake Total 260 300 370 Output Total 600 1000 700 Balance -340 -700 -330 Weight 211 lb 3.2 oz 220 lb 9.6 oz Intake: IV 20 20 sl 20 20 Oral 240 300 350 Output: Urine 600 1000 700 Void 600 1000 700 Other: Voiding Method Urinal Urinal # Unmeasured Voids Void 1 Bowel Movement Yes Yes Weight Measurement Method Standing Scale Standing Scale Active Medications Acetaminophen (Tylenol -) 650 mg PO Q6H PRN PRN Reason: PAIN LEVEL 4 - 6 Amlodipine Besylate (Norvasc -) 10 mg PO DAILY [facility] Last Admin: 02/23/18 09:54 Dose: 10 mg Aspirin (Asa -) 81 mg PO DAILY [facility] Last Admin: 02/23/18 09:55 Dose: 81 mg Carvedilol (Coreg -) 12.5 mg PO BID [facility] Last Admin: 02/23/18 09:54 Dose: 12.5 mg Clopidogrel Bisulfate (Plavix -) 75 mg PO DAILY [facility] Last Admin: 02/23/18 09:54 Dose: 75 mg Docusate Sodium (Colace -) 100 mg PO TID PRN PRN Reason: CONSTIPATION Ferrous Sulfate (Feosol -) 325 mg PO TIDCM [facility] Last Admin: 02/23/18 09:54 Dose: 325 mg Folic Acid (Folic Acid -) 1 mg PO DAILY [facility] Last Admin: 02/23/18 09:54 Dose: 1 mg Glipizide (Glucotrol Xl -) 5 mg PO DAILY@0700 [facility] Last Admin: 02/23/18 06:09 Dose: 5 mg Insulin Aspart (Novolog Vial Sliding Scale -) 1 vial SQ TIDAC [facility]; Protocol Last Admin: 02/23/18 06:13 Dose: Not Given Mirtazapine (Remeron -) 7.5 mg PO HS [facility] Last Admin: 02/22/18 22:25 Dose: 7.5 mg Rosuvastatin Calcium (Crestor -) 40 mg PO HS [facility] Last Admin: 02/22/18 22:26 Dose: 40 mg Tamsulosin HCl (Flomax -) 0.8 mg PO DAILY@0830 [facility] Last Admin: 02/23/18 09:54 Dose: 0.8 mg Tramadol HCl (Ultram -) 50 mg PO Q6H PRN PRN Reason: PAIN LEVEL 6-10 CBC, BMP 02/23/18 06:28 02/23/18 06:28 physical exam alert and awake Comfortable Heart sounds regular Lungs--- diminished Abdominal--soft Extremities--trace edema Assessment/Plan clinically better continue present care Medications reviewed monitor lites Renal to follow Smoking cessation counseling Daily out of bed to chair Physical therapy Will follow Problem List - Problems (1) Anemia Code(s): D64.9 - ANEMIA, UNSPECIFIED (2) VANDA (acute kidney injury) Code(s): N17.9 - ACUTE KIDNEY FAILURE, UNSPECIFIED (3) CHF (congestive heart failure) Code(s): I50.9 - HEART FAILURE, UNSPECIFIED Qualifiers: Heart failure type: unspecified Heart failure chronicity: acute on chronic Qualified Code(s): I50.9 - Heart failure, unspecified (4) ASHD (arteriosclerotic heart disease) Code(s): I25.10 - ATHSCL HEART DISEASE OF [place] CORONARY ARTERY W/O ANG PCTRS (5) Acute on chronic diastolic CHF (congestive heart failure) Code(s): I50.33 - ACUTE ON CHRONIC DIASTOLIC (CONGESTIVE) HEART FAILURE (6) Diabetes Code(s): E11.9 - TYPE 2 DIABETES MELLITUS WITHOUT COMPLICATIONS Qualifiers: Diabetes mellitus type: type 2 Diabetes mellitus complication detail: with nephropathy
--- NOTE | 2018-02-23 12:54 | PN ---
Progress Note, Physician Chief Complaint: The patient seen in telemetry. Denies any new complaints. Maintains good urine output. No chest pains, No shortness of breath. - Current Medication List Current Medications: Active Medications Acetaminophen (Tylenol -) 650 mg PO Q6H PRN PRN Reason: PAIN LEVEL 4 - 6 Amlodipine Besylate (Norvasc -) 10 mg PO DAILY [facility] Last Admin: 02/23/18 09:54 Dose: 10 mg Aspirin (Asa -) 81 mg PO DAILY [facility] Last Admin: 02/23/18 09:55 Dose: 81 mg Carvedilol (Coreg -) 12.5 mg PO BID [facility] Last Admin: 02/23/18 09:54 Dose: 12.5 mg Clopidogrel Bisulfate (Plavix -) 75 mg PO DAILY [facility] Last Admin: 02/23/18 09:54 Dose: 75 mg Docusate Sodium (Colace -) 100 mg PO TID PRN PRN Reason: CONSTIPATION Ferrous Sulfate (Feosol -) 325 mg PO TIDCM [facility] Last Admin: 02/23/18 09:54 Dose: 325 mg Folic Acid (Folic Acid -) 1 mg PO DAILY [facility] Last Admin: 02/23/18 09:54 Dose: 1 mg Glipizide (Glucotrol Xl -) 5 mg PO DAILY@0700 [facility] Last Admin: 02/23/18 06:09 Dose: 5 mg Insulin Aspart (Novolog Vial Sliding Scale -) [facility]; Protocol Last Admin: 02/23/18 06:13 Dose: Not Given Mirtazapine (Remeron -) 7.5 mg PO [facility] Last Admin: 02/22/18 22:25 Dose: 7.5 mg Rosuvastatin Calcium (Crestor -) 40 mg PO [facility] Last Admin: 02/22/18 22:26 Dose: 40 mg Tamsulosin HCl (Flomax -) 0.8 mg PO DAILY@0830 [facility] Last Admin: 02/23/18 09:54 Dose: 0.8 mg Tramadol HCl (Ultram -) 50 mg PO Q6H PRN PRN Reason: PAIN LEVEL 6-10 - Objective Vital Signs: Vital Signs Temperature 98 F 02/23/18 10:01 Pulse Rate 80 02/23/18 10:01 Respiratory Rate 20 02/23/18 10:01 Blood Pressure 113/43 L 02/23/18 10:01 O2 Sat by Pulse Oximetry (%) 95 02/22/18 21:00 Constitutional: Yes: No Distress HENT: Yes: Atraumatic Neck: Yes: Supple Cardiovascular: Yes: Tachycardia, S1, S2 Respiratory: Yes: CTA Bilaterally, Diminished, Poor Air Entry Gastrointestinal: Yes: Normal Bowel Sounds, Soft Genitourinary: No: Bladder Distention, CVA Tenderness - Left, CVA Tenderness - Right, Hematuria Edema: Yes Neurological: Yes: Alert Labs: CBC, BMP 02/23/18 06:28 02/23/18 06:28 Problem List - Problems (1) VANDA (acute kidney injury) Code(s): N17.9 - ACUTE KIDNEY FAILURE, UNSPECIFIED (2) CHF (congestive heart failure) Code(s): I50.9 - HEART FAILURE, UNSPECIFIED Qualifiers: Heart failure type: unspecified Heart failure chronicity: acute on chronic Qualified Code(s): I50.9 - Heart failure, unspecified (3) ASHD (arteriosclerotic heart disease) Code(s): I25.10 - ATHSCL HEART DISEASE OF [place] CORONARY ARTERY W/O ANG PCTRS (4) Anemia Code(s): D64.9 - ANEMIA, UNSPECIFIED Qualifiers: Anemia type: unspecified type Qualified Code(s): D64.9 - Anemia, unspecified (5) Arterial insufficiency of lower extremity Code(s): I73.9 - PERIPHERAL VASCULAR DISEASE, UNSPECIFIED (6) CAD (coronary artery disease) Code(s): I25.10 - ATHSCL HEART DISEASE OF [place] CORONARY ARTERY W/O ANG PCTRS Qualifiers: Coronary Disease-Associated Artery/Lesion type: [place] artery Associated angina: with stable angina (7) Cellulitis Code(s): L03.90 - CELLULITIS, UNSPECIFIED Qualifiers: Site of cellulitis: extremity Site of cellulitis of extremity: lower extremity Laterality: left Qualified Code(s): L03.116 - Cellulitis of left lower limb (8) Diabetes mellitus, insulin dependent (IDDM), controlled Code(s): E10.9 - TYPE 1 DIABETES MELLITUS WITHOUT COMPLICATIONS (9) Diabetic neuropathy Code(s): E11.40 - TYPE 2 DIABETES MELLITUS WITH DIABETIC NEUROPATHY, UNSP Qualifiers: Diabetes mellitus type: due to underlying condition (10) Diastolic CHF Code(s): I50.30 - UNSPECIFIED DIASTOLIC (CONGESTIVE) HEART FAILURE Qualifiers: Heart failure chronicity: chronic Qualified Code(s): I50.32 - Chronic diastolic (congestive) heart failure (11) Edema Code(s): R60.9 - EDEMA, UNSPECIFIED Qualifiers: Edema type: unspecified Qualified Code(s): R60.9 - Edema, unspecified (12) Hyperkalemia Code(s): E87.5 - HYPERKALEMIA Assessment/Plan 57 year old gentleman with hx of CKD stage 3b, Hypertension, CAD, CHF, CVA, COPD , DM who presented from [place] with SOB and admitted with CHF exacerbation with VANDA and hyperkalemia. Hyperkalemia...Improved now. Massive fluid overload. Some of the edema is chronic. Agree with holding diuretics for now, in view of worsening kidney failure. VANDA, with a major component of Hemodynamic Renal insufficiency. Will continue to monitor the renal functions with you. Thank you. Will follow with you. Susie Brooke MD
[2018-02-23] MEDS: ROSUVASTATIN CA 20 MG TABLET (FP) PO SCH (21:52)
[2018-02-23] MEDS: MIRTAZAPINE 15 MG TABLET (FP) PO SCH (21:52)
[2018-02-24] MEDS: glipiZIDE-XL 5 MG TAB.ER.24 PO SCH (06:35)
[2018-02-24] MEDS: INSULIN SLIDING SCALE (NOVOLOG) 1 VIAL SQ SCH ×3 (06:35→17:24)
[2018-02-24] MEDS: TAMSULOSIN HCL 0.4 MG CAP PO SCH (08:51)
[2018-02-24] MEDS: FERROUS SO4 325 MG TABLET (FP) PO SCH ×3 (08:51→17:21)
--- NOTE | 2018-02-24 10:54 | PN ---
Progress Note (short form) - Note Progress Note: pt seen/ examined feels better. all f/u noted says slept better passing urine Vital Signs Temp 98 F 02/24/18 10:23 Pulse 88 02/24/18 10:23 Resp 20 02/24/18 10:23 BP 154/70 02/24/18 10:23 Pulse Ox 95 02/23/18 21:00 Intake & Output 02/23/18 02/23/18 02/24/18 11:59 23:59 11:59 Intake Total 370 200 Output Total 700 1000 500 Balance -330 -1000 -300 Weight 220 lb 9.6 oz 218 lb 12.8 oz Intake: IV 20 sl 20 Oral 350 200 Output: Urine 700 1000 500 Void 700 1000 500 Other: Voiding Method Urinal Urinal # Unmeasured Voids Void 1 Bowel Movement Yes Yes # Bowel Movements 1 Weight Measurement Method Standing Scale Standing Scale Active Medications Acetaminophen (Tylenol -) 650 mg PO Q6H PRN PRN Reason: PAIN LEVEL 4 - 6 Amlodipine Besylate (Norvasc -) 10 mg PO DAILY [facility] Last Admin: 02/23/18 09:54 Dose: 10 mg Aspirin (Asa -) 81 mg PO DAILY [facility] Last Admin: 02/23/18 09:55 Dose: 81 mg Carvedilol (Coreg -) 12.5 mg PO BID [facility] Last Admin: 02/23/18 21:53 Dose: 12.5 mg Clopidogrel Bisulfate (Plavix -) 75 mg PO DAILY [facility] Last Admin: 02/23/18 09:54 Dose: 75 mg Docusate Sodium (Colace -) 100 mg PO TID PRN PRN Reason: CONSTIPATION Ferrous Sulfate (Feosol -) 325 mg PO TIDCM [facility] Last Admin: 02/24/18 08:51 Dose: 325 mg Folic Acid (Folic Acid -) 1 mg PO DAILY [facility] Last Admin: 02/23/18 09:54 Dose: 1 mg Glipizide (Glucotrol Xl -) 5 mg PO DAILY@0700 [facility] Last Admin: 02/24/18 06:35 Dose: 5 mg Insulin Aspart (Novolog Vial Sliding Scale -) 1 vial SQ TIDAC [facility]; Protocol Last Admin: 02/24/18 06:35 Dose: Not Given Mirtazapine (Remeron -) 7.5 mg PO HS [facility] Last Admin: 02/23/18 21:52 Dose: 7.5 mg Rosuvastatin Calcium (Crestor -) 40 mg PO HS [facility] Last Admin: 02/23/18 21:52 Dose: 40 mg Tamsulosin HCl (Flomax -) 0.8 mg PO DAILY@0830 [facility] Last Admin: 02/24/18 08:51 Dose: 0.8 mg Tramadol HCl (Ultram -) 50 mg PO Q6H PRN PRN Reason: PAIN LEVEL 6-10 CBC, BMP 02/23/18 06:28 02/23/18 06:28 Physical exam alert and awake Comfortable Heart sounds regular Lungs--- diminished Abdominal--soft Extremities--trace edema Assessment/Plan clinically better continue present care Medications reviewed monitor lites Renal on case Daily out of bed to chair Physical therapy Will follow Problem List - Problems (1) Anemia Code(s): D64.9 - ANEMIA, UNSPECIFIED (2) VANDA (acute kidney injury) Code(s): N17.9 - ACUTE KIDNEY FAILURE, UNSPECIFIED (3) CHF (congestive heart failure) Code(s): I50.9 - HEART FAILURE, UNSPECIFIED Qualifiers: Heart failure type: unspecified Heart failure chronicity: acute on chronic Qualified Code(s): I50.9 - Heart failure, unspecified (4) ASHD (arteriosclerotic heart disease) Code(s): I25.10 - ATHSCL HEART DISEASE OF [place] CORONARY ARTERY W/O ANG PCTRS (5) Acute on chronic diastolic CHF (congestive heart failure) Code(s): I50.33 - ACUTE ON CHRONIC DIASTOLIC (CONGESTIVE) HEART FAILURE (6) Diabetes Code(s): E11.9 - TYPE 2 DIABETES MELLITUS WITHOUT COMPLICATIONS Qualifiers: Diabetes mellitus type: type 2 Diabetes mellitus complication detail: with nephropathy
[2018-02-24] MEDS: CLOPIDOGREL BISULFATE 75 MG TABLET (FP) PO SCH (10:56)
[2018-02-24] MEDS: ASPIRIN 81 MG CHEWABLE TABLETS PO SCH (10:56)
[2018-02-24] MEDS: amLODIPine BESYLATE 10 MG TABLET (FP) PO SCH (10:57)
[2018-02-24] MEDS: CARVEDILOL 6.25 MG TABLET (FP) PO SCH ×2 (10:58→22:55)
[2018-02-24] MEDS: FOLIC ACID 1 MG TABLET (FP) PO SCH (10:58)
--- NOTE | 2018-02-24 11:51 | PN ---
Progress Note, Physician Chief Complaint: Pt alert; lying in bed; legs are less painful (and less swollen); denies chest pain or dyspnea. History of Present Illness: The patient is a 57M with a PMH of HLD, HTN, CAD, CHF on lasix, CVA (w/ L sided deficit), s/p recent L carotid endarectomy, smoker, COPD, DM, CKD (baseline cr ~ 2), anemia who presents from [facility] after having 2 episodes of SOB after standing up. The patient states that he was in his usual state of health ( currently at [facility] for rehab) and stood up to use the urinal. Both times that he did this, he felt short of breath after sitting back down in bed. He denies any orthopnea, CP, fevers, chills, nausea, vomiting, and abdominal pain. He admits to having transfusions in the past and dark stools but states that the dark stools only happened since he's been taking iron. - Current Medication List Current Medications: Active Medications Acetaminophen (Tylenol -) 650 mg PO Q6H PRN PRN Reason: PAIN LEVEL 4 - 6 Amlodipine Besylate (Norvasc -) 10 mg PO DAILY [facility] Last Admin: 02/24/18 10:57 Dose: 10 mg Aspirin (Asa -) 81 mg PO DAILY [facility] Last Admin: 02/24/18 10:56 Dose: 81 mg Carvedilol (Coreg -) 12.5 mg PO BID [facility] Last Admin: 02/24/18 10:58 Dose: 12.5 mg Clopidogrel Bisulfate (Plavix -) 75 mg PO DAILY [facility] Last Admin: 02/24/18 10:56 Dose: 75 mg Docusate Sodium (Colace -) 100 mg PO TID PRN PRN Reason: CONSTIPATION Ferrous Sulfate (Feosol -) 325 mg PO TIDCM [facility] Last Admin: 02/24/18 08:51 Dose: 325 mg Folic Acid (Folic Acid -) 1 mg PO DAILY [facility] Last Admin: 02/24/18 10:58 Dose: 1 mg Glipizide (Glucotrol Xl -) 5 mg PO DAILY@0700 [facility] Last Admin: 02/24/18 06:35 Dose: 5 mg Insulin Aspart (Novolog Vial Sliding Scale -) 1 vial SQ TIDAC [facility]; Protocol Last Admin: 02/24/18 06:35 Dose: Not Given Mirtazapine (Remeron -) 7.5 mg PO [facility] Last Admin: 02/23/18 21:52 Dose: 7.5 mg Rosuvastatin Calcium (Crestor -) 40 mg PO [facility] Last Admin: 02/23/18 21:52 Dose: 40 mg Tamsulosin HCl (Flomax -) 0.8 mg PO DAILY@0830 [facility] Last Admin: 02/24/18 08:51 Dose: 0.8 mg Tramadol HCl (Ultram -) 50 mg PO Q6H PRN PRN Reason: PAIN LEVEL 6-10 - Objective Vital Signs: Vital Signs Temperature 98 F 02/24/18 10:23 Pulse Rate 88 02/24/18 10:23 Respiratory Rate 20 02/24/18 10:23 Blood Pressure 154/70 02/24/18 10:23 O2 Sat by Pulse Oximetry (%) 95 02/23/18 21:00 Constitutional: Yes: Calm, Obese Eyes: Yes: WNL HENT: Yes: WNL Neck: Yes: WNL Cardiovascular: Yes: S1, S2, S4 Respiratory: Yes: WNL Gastrointestinal: Yes: Soft, Abdomen, Obese ...Rectal Exam: Yes: Deferred Genitourinary: No: Anuria Breast(s): Yes: WNL Musculoskeletal: Yes: Muscle Weakness Extremities: Yes: Cool Edema: No Peripheral Pulses WNL: Yes Integumentary: Yes: WNL Neurological: Yes: WNL Psychiatric: Yes: Other Labs: CBC, BMP 02/23/18 06:28 02/23/18 06:28 Problem List - Problems (1) VANDA (acute kidney injury) Assessment/Plan: see under "CHF". Code(s): N17.9 - ACUTE KIDNEY FAILURE, UNSPECIFIED (2) Acute on chronic diastolic CHF (congestive heart failure) Assessment/Plan: Creatinine rising; furosemide held. On carvedilol and amlodipine. F/u BUN/Cr, electrolytes; daily weight; Is and Os. F/u with curer foam rubber. Code(s): I50.33 - ACUTE ON CHRONIC DIASTOLIC (CONGESTIVE) HEART FAILURE (3) Diabetes Assessment/Plan: On glucatrol. Renal dysfunction precludes ACEI or ARB. Code(s): E11.9 - TYPE 2 DIABETES MELLITUS WITHOUT COMPLICATIONS Qualifiers: Diabetes mellitus type: type 2 Diabetes mellitus complication detail: with nephropathy (4) Hyperlipidemia Assessment/Plan: Total cholesterol 95 mg/dL (on rosuvastatin). Code(s): E78.5 - HYPERLIPIDEMIA, UNSPECIFIED Qualifiers: Hyperlipidemia type: pure hypercholesterolemia Qualified Code(s): E78.00 - Pure hypercholesterolemia, unspecified; E78.0 - Pure hypercholesterolemia (5) Obesity Code(s): E66.9 - OBESITY, UNSPECIFIED
--- NOTE | 2018-02-24 12:50 | PN ---
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 chronic leg edema Current Medications Acetaminophen (Tylenol -) 650 mg PO Q6H PRN PRN Reason: PAIN LEVEL 4 - 6 Amlodipine Besylate (Norvasc -) 10 mg PO DAILY [facility] Last Admin: 02/24/18 10:57 Dose: 10 mg Aspirin (Asa -) 81 mg PO DAILY [facility] Last Admin: 02/24/18 10:56 Dose: 81 mg Carvedilol (Coreg -) 12.5 mg PO BID [facility] Last Admin: 02/24/18 10:58 Dose: 12.5 mg Clopidogrel Bisulfate (Plavix -) 75 mg PO DAILY [facility] Last Admin: 02/24/18 10:56 Dose: 75 mg Docusate Sodium (Colace -) 100 mg PO TID PRN PRN Reason: CONSTIPATION Ferrous Sulfate (Feosol -) 325 mg PO TIDCM [facility] Last Admin: 02/24/18 08:51 Dose: 325 mg Folic Acid (Folic Acid -) 1 mg PO DAILY [facility] Last Admin: 02/24/18 10:58 Dose: 1 mg Glipizide (Glucotrol Xl -) 5 mg PO DAILY@0700 [facility] Last Admin: 02/24/18 06:35 Dose: 5 mg Insulin Aspart (Novolog Vial Sliding Scale -) 1 vial SQ TIDAC [facility]; Protocol Last Admin: 02/24/18 12:30 Dose: 2 units Mirtazapine (Remeron -) 7.5 mg PO [facility] Last Admin: 02/23/18 21:52 Dose: 7.5 mg Rosuvastatin Calcium (Crestor -) 40 mg PO [facility] Last Admin: 02/23/18 21:52 Dose: 40 mg Tamsulosin HCl (Flomax -) 0.8 mg PO DAILY@0830 [facility] Last Admin: 02/24/18 08:51 Dose: 0.8 mg Last Vital Signs Temp Pulse Resp BP Pulse Ox 98 F 88 20 154/70 95 02/24/18 10:23 02/24/18 10:23 02/24/18 10:23 02/24/18 10:23 02/23/18 21:00 Lungs clear Heart reg Abd soft nontender Ext mod edema 4+ CBC, BMP 02/23/18 06:28 02/23/18 06:28 IMP- VANDA/ CKD chronic edema
[2018-02-24] MEDS: ROSUVASTATIN CA 20 MG TABLET (FP) PO SCH (22:54)
[2018-02-24] MEDS: MIRTAZAPINE 15 MG TABLET (FP) PO SCH (22:55)
[2018-02-25] MEDS: INSULIN SLIDING SCALE (NOVOLOG) 1 VIAL SQ SCH ×3 (06:33→17:47)
[2018-02-25] MEDS: glipiZIDE-XL 5 MG TAB.ER.24 PO SCH (06:33)
[2018-02-25 07:35] LABS: BASO % 0.8 % (0-2.0); EOS % 6.3 % (0-4.5); HEMATOCRIT 23.2 % (35.4-49); HEMOGLOBIN 7.7 GM/dL (11.7-16.9); LYMPH % 12.3 % (8-40); MCHC 33.1 g/dl (32.0-35.9); MEAN CELL VOLUME 93.8 fl (80-96); MONO % 10.4 % (3.8-10.2); NEUT % 70.2 % (42.8-82.8); PLATELET COUNT 137 K/MM3 (134-434); RBC 2.47 M/mm3 (4.00-5.60); RDW 16.5 % (11.9-15.9); WHITE BLOOD COUNT 5.6 K/mm3 (4.0-10.0)
[2018-02-25 08:50] LABS: ALBUMIN 3.1 g/dl (3.4-5.0); ALK PHOS 67 U/L (45-117); ANION GAP 9 MMOL/L (8-16); BILIRUBIN,TOTAL 0.3 mg/dL (0.2-1); BLOOD UREA NITROGEN 92 mg/dL (7-18); CALCIUM 7.9 mg/dL (8.5-10.1); CHLORIDE 114 mmol/L (98-107); CO2 23 mmol/L (21-32); CREATININE 2.9 mg/dL (0.55-1.3); GLUCOSE,RANDOM 77 mg/dL (74-106); POTASSIUM 5.4 mmol/L (3.5-5.1); SGOT/AST 21 U/L (15-37); SGPT/ALT 37 U/L (13-61); SODIUM 146 mmol/L (136-145)
[2018-02-25] MEDS: CARVEDILOL 6.25 MG TABLET (FP) PO SCH ×2 (09:29→23:06)
[2018-02-25] MEDS: ASPIRIN 81 MG CHEWABLE TABLETS PO SCH (09:29)
[2018-02-25] MEDS: TAMSULOSIN HCL 0.4 MG CAP PO SCH (09:29)
[2018-02-25] MEDS: amLODIPine BESYLATE 10 MG TABLET (FP) PO SCH (09:29)
[2018-02-25] MEDS: FOLIC ACID 1 MG TABLET (FP) PO SCH (09:29)
[2018-02-25] MEDS: FERROUS SO4 325 MG TABLET (FP) PO SCH ×3 (09:29→17:47)
[2018-02-25] MEDS: CLOPIDOGREL BISULFATE 75 MG TABLET (FP) PO SCH (09:29)
--- NOTE | 2018-02-25 10:38 | PN ---
Progress Note (short form) - Note Progress Note: pt seen/ examined feels same . no new issues lasix held by renal due to worsening of ckd comfortable chronic ill appearance Vital Signs Temp 98.2 F 02/25/18 06:00 Pulse 77 02/25/18 06:00 Resp 20 02/25/18 06:00 BP 129/62 02/25/18 06:00 Pulse Ox 97 02/24/18 21:00 Intake & Output 02/24/18 02/24/18 02/25/18 11:59 23:59 11:59 Intake Total 200 620 200 Output Total 500 700 800 Balance -300 -80 -600 Weight 218 lb 12.8 oz 221 lb Intake: Oral 200 620 200 Output: Urine 500 700 800 Void 500 700 800 Other: Voiding Method Urinal Urinal Bowel Movement No Weight Measurement Method Standing Scale Standing Scale Active Medications Acetaminophen (Tylenol -) 650 mg PO Q6H PRN PRN Reason: PAIN LEVEL 4 - 6 Amlodipine Besylate (Norvasc -) 10 mg PO DAILY [facility] Last Admin: 02/25/18 09:29 Dose: 10 mg Aspirin (Asa -) 81 mg PO DAILY [facility] Last Admin: 02/25/18 09:29 Dose: 81 mg Carvedilol (Coreg -) 12.5 mg PO BID [facility] Last Admin: 02/25/18 09:29 Dose: 12.5 mg Clopidogrel Bisulfate (Plavix -) 75 mg PO DAILY [facility] Last Admin: 02/25/18 09:29 Dose: 75 mg Docusate Sodium (Colace -) 100 mg PO TID PRN PRN Reason: CONSTIPATION Ferrous Sulfate (Feosol -) 325 mg PO TIDCM [facility] Last Admin: 02/25/18 09:29 Dose: 325 mg Folic Acid (Folic Acid -) 1 mg PO DAILY [facility] Last Admin: 02/25/18 09:29 Dose: 1 mg Glipizide (Glucotrol Xl -) 5 mg PO DAILY@0700 [facility] Last Admin: 02/25/18 06:33 Dose: 5 mg Insulin Aspart (Novolog Vial Sliding Scale -) 1 vial SQ TIDAC [facility]; Protocol Last Admin: 02/25/18 06:33 Dose: Not Given Mirtazapine (Remeron -) 7.5 mg PO HS [facility] Last Admin: 02/24/18 22:55 Dose: 7.5 mg Rosuvastatin Calcium (Crestor -) 40 mg PO HS [facility] Last Admin: 02/24/18 22:54 Dose: 40 mg Tamsulosin HCl (Flomax -) 0.8 mg PO DAILY@0830 [facility] Last Admin: 02/25/18 09:29 Dose: 0.8 mg CBC, BMP 02/25/18 07:08 02/25/18 07:08 Physical exam alert and awake Comfortable Heart sounds regular Lungs--- diminished Abdominal--soft Extremities--trace edema Assessment/Plan clinically same continue present care Medications reviewed monitor lites Renal on case Daily out of bed to chair Physical therapy Will follow Problem List - Problems (1) Anemia Code(s): D64.9 - ANEMIA, UNSPECIFIED (2) VANDA (acute kidney injury) Code(s): N17.9 - ACUTE KIDNEY FAILURE, UNSPECIFIED (3) CHF (congestive heart failure) Code(s): I50.9 - HEART FAILURE, UNSPECIFIED Qualifiers: Heart failure type: unspecified Heart failure chronicity: acute on chronic Qualified Code(s): I50.9 - Heart failure, unspecified (4) ASHD (arteriosclerotic heart disease) Code(s): I25.10 - ATHSCL HEART DISEASE OF [place] CORONARY ARTERY W/O ANG PCTRS (5) Acute on chronic diastolic CHF (congestive heart failure) Code(s): I50.33 - ACUTE ON CHRONIC DIASTOLIC (CONGESTIVE) HEART FAILURE (6) Diabetes Code(s): E11.9 - TYPE 2 DIABETES MELLITUS WITHOUT COMPLICATIONS Qualifiers: Diabetes mellitus type: type 2 Diabetes mellitus complication detail: with nephropathy
--- NOTE | 2018-02-25 17:25 | PN ---
Progress Note (short form) - Note Progress Note: 57 year old gentleman with hx of CKD stage 3b, Hypertension, CAD, CHF, CVA, COPD, DM CHF exacerbation with VANDA and hyperkalemia. chronic leg edema Current Medications Acetaminophen (Tylenol -) 650 mg PO Q6H PRN PRN Reason: PAIN LEVEL 4 - 6 Amlodipine Besylate (Norvasc -) 10 mg PO DAILY [facility] Last Admin: 02/25/18 09:29 Dose: 10 mg Aspirin (Asa -) 81 mg PO DAILY [facility] Last Admin: 02/25/18 09:29 Dose: 81 mg Carvedilol (Coreg -) 12.5 mg PO BID [facility] Last Admin: 02/25/18 09:29 Dose: 12.5 mg Clopidogrel Bisulfate (Plavix -) 75 mg PO DAILY [facility] Last Admin: 02/25/18 09:29 Dose: 75 mg Docusate Sodium (Colace -) 100 mg PO TID PRN PRN Reason: CONSTIPATION Ferrous Sulfate (Feosol -) 325 mg PO TIDCM [facility] Last Admin: 02/25/18 12:21 Dose: 325 mg Folic Acid (Folic Acid -) 1 mg PO DAILY [facility] Last Admin: 02/25/18 09:29 Dose: 1 mg Glipizide (Glucotrol Xl -) 5 mg PO DAILY@0700 [facility] Last Admin: 02/25/18 06:33 Dose: 5 mg Insulin Aspart (Novolog Vial Sliding Scale -) [facility]; Protocol Last Admin: 02/25/18 12:21 Dose: 10 units Mirtazapine (Remeron -) 7.5 mg PO [facility] Last Admin: 02/24/18 22:55 Dose: 7.5 mg Rosuvastatin Calcium (Crestor -) 40 mg PO [facility] Last Admin: 02/24/18 22:54 Dose: 40 mg Tamsulosin HCl (Flomax -) 0.8 mg PO DAILY@0830 [facility] Last Admin: 02/25/18 09:29 Dose: 0.8 mg Last Vital Signs Temp Pulse Resp BP Pulse Ox 97.8 F 75 18 117/50 L 95 02/25/18 14:00 02/25/18 14:00 02/25/18 10:00 02/25/18 14:00 02/25/18 09:00 heent dry oral mucosa neck no jvd lying flat Lungs clear Heart reg abd soft nontender ext 4+ edema with pitting CBC, BMP 02/25/18 07:08 02/25/18 07:08 IMP- vanda/ckd hypernatremia hyperkalemia Plan- follow renal function in am
[2018-02-25] MEDS: ROSUVASTATIN CA 20 MG TABLET (FP) PO SCH (23:05)
[2018-02-25] MEDS: MIRTAZAPINE 15 MG TABLET (FP) PO SCH (23:05)
[2018-02-26] MEDS: glipiZIDE-XL 5 MG TAB.ER.24 PO SCH (06:16)
[2018-02-26] MEDS: INSULIN SLIDING SCALE (NOVOLOG) 1 VIAL SQ SCH ×3 (06:16→17:54)
--- NOTE | 2018-02-26 08:31 | PN ---
Progress Note, Physician Chief Complaint: Pt alert; lying down on left side ("it's more comfortable"); no chest or leg pain; no dyspnea. History of Present Illness: The patient is a 57 yr old white man with a PMH of HLD, HTN, CAD, diastolic CHF on lasix, CVA (w/ L sided deficit), s/p recent L carotid endarectomy, smoker, COPD, DM, CKD (baseline cr ~2), anemia who presents from [facility] after having 2 episodes of SOB after standing up. The patient states that he was in his usual state of health (currently at [facility] for rehab) and stood up to use the urinal. Both times that he did this, he felt short of breath after sitting back down in bed. He denies any orthopnea, CP, fevers, chills, nausea, vomiting, and abdominal pain. He admits to having transfusions in the past and dark stools but states that the dark stools only happened since he's been taking iron. - Current Medication List Current Medications: Active Medications Acetaminophen (Tylenol -) 650 mg PO Q6H PRN PRN Reason: PAIN LEVEL 4 - 6 Amlodipine Besylate (Norvasc -) 10 mg PO DAILY [facility] Last Admin: 02/25/18 09:29 Dose: 10 mg Aspirin (Asa -) 81 mg PO DAILY [facility] Last Admin: 02/25/18 09:29 Dose: 81 mg Carvedilol (Coreg -) 12.5 mg PO BID [facility] Last Admin: 02/25/18 23:06 Dose: 12.5 mg Clopidogrel Bisulfate (Plavix -) 75 mg PO DAILY [facility] Last Admin: 02/25/18 09:29 Dose: 75 mg Docusate Sodium (Colace -) 100 mg PO TID PRN PRN Reason: CONSTIPATION Ferrous Sulfate (Feosol -) 325 mg PO TIDCM [facility] Last Admin: 02/25/18 17:47 Dose: 325 mg Folic Acid (Folic Acid -) 1 mg PO DAILY [facility] Last Admin: 02/25/18 09:29 Dose: 1 mg Glipizide (Glucotrol Xl -) 5 mg PO DAILY@0700 [facility] Last Admin: 02/26/18 06:16 Dose: Not Given Insulin Aspart (Novolog Vial Sliding Scale -) 1 vial SQ TIDAC [facility]; Protocol Last Admin: 02/26/18 06:16 Dose: Not Given Mirtazapine (Remeron -) 7.5 mg PO [facility] Last Admin: 02/25/18 23:05 Dose: 7.5 mg Rosuvastatin Calcium (Crestor -) 40 mg PO [facility] Last Admin: 02/25/18 23:05 Dose: 40 mg Tamsulosin HCl (Flomax -) 0.8 mg PO DAILY@0830 [facility] Last Admin: 02/25/18 09:29 Dose: 0.8 mg - Objective Vital Signs: Vital Signs Temperature 97.2 F L 02/26/18 06:00 Pulse Rate 67 02/26/18 06:00 Respiratory Rate 20 02/26/18 06:00 Blood Pressure 144/67 02/26/18 06:00 O2 Sat by Pulse Oximetry (%) 96 02/25/18 21:00 Constitutional: Yes: Calm Eyes: Yes: WNL HENT: Yes: WNL Neck: Yes: WNL Cardiovascular: Yes: S1, S2 (split) Respiratory: Yes: Regular, Diminished Gastrointestinal: Yes: Soft, Abdomen, Obese ...Rectal Exam: Yes: Deferred Genitourinary: No: Anuria Breast(s): Yes: WNL Musculoskeletal: Yes: Joint Stiffness, Muscle Weakness Extremities: Yes: Cool Edema: Yes Edema: LLE: Trace, RLE: Trace Peripheral Pulses WNL: Yes Integumentary: Yes: WNL Neurological: Yes: Alert, Oriented, Weakness Psychiatric: Yes: Alert, Oriented, Other Labs: CBC, BMP 02/25/18 07:08 02/25/18 07:08 Abnormal Lab Results 02/25/18 07:08 Sodium 146 H Potassium 5.4 H Chloride 114 H BUN 92 H Creatinine 2.9 H Calcium 7.9 L Total Protein 6.0 L Albumin 3.1 L Problem List - Problems (1) VANDA (acute kidney injury) Assessment/Plan: see under "CHF". Code(s): N17.9 - ACUTE KIDNEY FAILURE, UNSPECIFIED (2) Acute on chronic diastolic CHF (congestive heart failure) Assessment/Plan: Creatinine rising; furosemide held. On carvedilol and amlodipine. F/u BUN/Cr, electrolytes; daily weight; Is and Os. F/u with laboratory machinist. Code(s): I50.33 - ACUTE ON CHRONIC DIASTOLIC (CONGESTIVE) HEART FAILURE (3) Diabetes Assessment/Plan: On glucatrol. Renal dysfunction precludes ACEI or ARB. Code(s): E11.9 - TYPE 2 DIABETES MELLITUS WITHOUT COMPLICATIONS Qualifiers: Diabetes mellitus type: type 2 Diabetes mellitus complication detail: with nephropathy (4) Hyperlipidemia Assessment/Plan: Total cholesterol 95 mg/dL (on rosuvastatin). Code(s): E78.5 - HYPERLIPIDEMIA, UNSPECIFIED Qualifiers: Hyperlipidemia type: pure hypercholesterolemia Qualified Code(s): E78.00 - Pure hypercholesterolemia, unspecified; E78.0 - Pure hypercholesterolemia (5) Obesity Code(s): E66.9 - OBESITY, UNSPECIFIED
--- NOTE | 2018-02-26 08:39 | PN ---
Progress Note, Physician Chief Complaint: feeling better Less SOB TELE: NSR - Current Medication List Current Medications: Active Medications Acetaminophen (Tylenol -) 650 mg PO Q6H PRN PRN Reason: PAIN LEVEL 4 - 6 Amlodipine Besylate (Norvasc -) 10 mg PO DAILY [facility] Last Admin: 02/25/18 09:29 Dose: 10 mg Aspirin (Asa -) 81 mg PO DAILY [facility] Last Admin: 02/25/18 09:29 Dose: 81 mg Carvedilol (Coreg -) 12.5 mg PO BID [facility] Last Admin: 02/25/18 23:06 Dose: 12.5 mg Clopidogrel Bisulfate (Plavix -) 75 mg PO DAILY [facility] Last Admin: 02/25/18 09:29 Dose: 75 mg Docusate Sodium (Colace -) 100 mg PO TID PRN PRN Reason: CONSTIPATION Ferrous Sulfate (Feosol -) 325 mg PO TIDCM [facility] Last Admin: 02/25/18 17:47 Dose: 325 mg Folic Acid (Folic Acid -) 1 mg PO DAILY [facility] Last Admin: 02/25/18 09:29 Dose: 1 mg Glipizide (Glucotrol Xl -) 5 mg PO DAILY@0700 [facility] Last Admin: 02/26/18 06:16 Dose: Not Given Insulin Aspart (Novolog Vial Sliding Scale -) [facility] Last Admin: 02/26/18 06:16 Dose: Not Given Mirtazapine (Remeron -) 7.5 mg PO [facility] Last Admin: 02/25/18 23:05 Dose: 7.5 mg Rosuvastatin Calcium (Crestor -) 40 mg PO [facility] Last Admin: 02/25/18 23:05 Dose: 40 mg Tamsulosin HCl (Flomax -) 0.8 mg PO DAILY@0830 [facility] Last Admin: 02/25/18 09:29 Dose: 0.8 mg - Objective Vital Signs: Vital Signs Temperature 97.2 F L 02/26/18 06:00 Pulse Rate 67 02/26/18 06:00 Respiratory Rate 20 02/26/18 06:00 Blood Pressure 144/67 02/26/18 06:00 O2 Sat by Pulse Oximetry (%) 96 02/25/18 21:00 Constitutional: Yes: Calm Eyes: Yes: Conjunctiva Clear Cardiovascular: Yes: Regular Rate and Rhythm Respiratory: Yes: CTA Bilaterally Gastrointestinal: Yes: Soft Edema: Yes Edema: LLE: 1+, RLE: 1+ Neurological: Yes: Alert, Oriented Labs: CBC, BMP 02/25/18 07:08 02/25/18 07:08 Laboratory Tests 02/20/18 02/23/18 02/23/18 09:06 06:28 06:28 WBC 4.8 Hgb 7.7 L Hct 23.4 L Plt Count 124 L Sodium 143 Potassium 5.0 BUN 96 H Creatinine 3.0 H Stool Occult Blood Negative - ....Imaging EKG: Image Reviewed Assessment/Plan Assessment/Plan 1. Left carotid stenosis s/p left carotid endarterectomy several weeks ago 2. 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 3. LV diastolic dysfunction LVEF 50% 4. PAD status post bilateral lower extremity bypass 5. CKD with hyperkalemia 6. COPD 7. Chronic anemia Now with acute on chronic diastolic CHF REC: 1. Clinically improved, hold Lasix- BUN/Creat rising. Repeat BMP today. 2. Daily BMP to follow renal fx, K+ 3. Cont Carvediolol, hold ARB (advanced CKD) 4. Tele to r/o occult arrhythmias precipitating CHF- thus far negative 5. Low Na+ diet 6. Daily weights 7. DVT prophylaxis 8. Anemia w/u as per PMD, likely chronic dz (guaiac -) 9. If K+ stable/normal, can d/c tele and begin d/c planning. PO dose maintenance diuretic to be determined.
[2018-02-26] MEDS: CLOPIDOGREL BISULFATE 75 MG TABLET (FP) PO SCH (09:31)
[2018-02-26] MEDS: FERROUS SO4 325 MG TABLET (FP) PO SCH ×3 (09:31→17:54)
[2018-02-26] MEDS: CARVEDILOL 6.25 MG TABLET (FP) PO SCH ×2 (09:31→21:33)
[2018-02-26] MEDS: amLODIPine BESYLATE 10 MG TABLET (FP) PO SCH (09:31)
[2018-02-26] MEDS: TAMSULOSIN HCL 0.4 MG CAP PO SCH (09:31)
[2018-02-26] MEDS: ASPIRIN 81 MG CHEWABLE TABLETS PO SCH (09:31)
[2018-02-26] MEDS: FOLIC ACID 1 MG TABLET (FP) PO SCH (09:31)
[2018-02-26 10:58] LABS: ANION GAP 6 MMOL/L (8-16); BLOOD UREA NITROGEN 95 mg/dL (7-18); CHLORIDE 112 mmol/L (98-107); CO2 25 mmol/L (21-32); CREATININE 2.9 mg/dL (0.55-1.3); GLUCOSE,RANDOM 107 mg/dL (74-106); POTASSIUM 5.4 mmol/L (3.5-5.1); SODIUM 143 mmol/L (136-145)
--- NOTE | 2018-02-26 13:20 | PN ---
Progress Note (short form) - Note Progress Note: same no new issues comfortable lasix on hold Vital Signs Temp 98.4 F 02/26/18 10:00 Pulse 79 02/26/18 10:00 Resp 18 02/26/18 10:00 BP 157/81 02/26/18 10:00 Pulse Ox 93 L 02/26/18 09:00 Intake & Output 02/25/18 02/26/18 02/26/18 23:59 11:59 23:59 Intake Total 540 100 Output Total 1100 400 Balance -560 -300 Weight 224 lb Intake: Oral 540 100 Output: Urine 1100 400 Void 1100 400 Other: Voiding Method Urinal Toilet Bowel Movement No Weight Measurement Method Standing Scale Active Medications Acetaminophen (Tylenol -) 650 mg PO Q6H PRN PRN Reason: PAIN LEVEL 4 - 6 Amlodipine Besylate (Norvasc -) 10 mg PO DAILY [facility] Last Admin: 02/26/18 09:31 Dose: 10 mg Aspirin (Asa -) 81 mg PO DAILY [facility] Last Admin: 02/26/18 09:31 Dose: 81 mg Carvedilol (Coreg -) 12.5 mg PO BID [facility] Last Admin: 02/26/18 09:31 Dose: 12.5 mg Clopidogrel Bisulfate (Plavix -) 75 mg PO DAILY [facility] Last Admin: 02/26/18 09:31 Dose: 75 mg Docusate Sodium (Colace -) 100 mg PO TID PRN PRN Reason: CONSTIPATION Ferrous Sulfate (Feosol -) 325 mg PO TIDCM [facility] Last Admin: 02/26/18 12:28 Dose: 325 mg Folic Acid (Folic Acid -) 1 mg PO DAILY [facility] Last Admin: 02/26/18 09:31 Dose: 1 mg Glipizide (Glucotrol Xl -) 5 mg PO DAILY@0700 [facility] Last Admin: 02/26/18 06:16 Dose: Not Given Insulin Aspart (Novolog Vial Sliding Scale -) 1 vial SQ TIDAC [facility]; Protocol Last Admin: 02/26/18 12:27 Dose: Not Given Mirtazapine (Remeron -) 7.[address] [facility] Last Admin: 02/25/18 23:05 Dose: 7.5 mg Rosuvastatin Calcium (Crestor -) [address] [facility] Last Admin: 02/25/18 23:05 Dose: 40 mg Tamsulosin HCl (Flomax -) 0.8 mg PO DAILY@0830 [facility] Last Admin: 02/26/18 09:31 Dose: 0.8 mg CBC, BMP 02/25/18 07:08 02/26/18 09:05 Physical exam alert and awake Comfortable Heart sounds regular Lungs--- diminished Abdominal--soft Extremities--trace edema Assessment/Plan clinically same continue present care Medications reviewed monitor lites Renal on case -- lasix on hold Renal to adjust dose Daily out of bed to chair Physical therapy Will follow monitor lytes f/u cxr d/c planning Problem List - Problems (1) Anemia Code(s): D64.9 - ANEMIA, UNSPECIFIED (2) VANDA (acute kidney injury) Code(s): N17.9 - ACUTE KIDNEY FAILURE, UNSPECIFIED (3) CHF (congestive heart failure) Code(s): I50.9 - HEART FAILURE, UNSPECIFIED Qualifiers: Heart failure type: unspecified Heart failure chronicity: acute on chronic Qualified Code(s): I50.9 - Heart failure, unspecified (4) ASHD (arteriosclerotic heart disease) Code(s): I25.10 - ATHSCL HEART DISEASE OF [place] CORONARY ARTERY W/O ANG PCTRS (5) Acute on chronic diastolic CHF (congestive heart failure) Code(s): I50.33 - ACUTE ON CHRONIC DIASTOLIC (CONGESTIVE) HEART FAILURE (6) Diabetes Code(s): E11.9 - TYPE 2 DIABETES MELLITUS WITHOUT COMPLICATIONS Qualifiers: Diabetes mellitus type: type 2 Diabetes mellitus complication detail: with nephropathy
[2018-02-26] MEDS: ROSUVASTATIN CA 20 MG TABLET (FP) PO SCH (21:33)
[2018-02-26] MEDS: MIRTAZAPINE 15 MG TABLET (FP) PO SCH (21:33)
[2018-02-27] MEDS: glipiZIDE-XL 5 MG TAB.ER.24 PO SCH (06:21)
[2018-02-27] MEDS: INSULIN SLIDING SCALE (NOVOLOG) 1 VIAL SQ SCH ×3 (06:22→17:02)
[2018-02-27 06:36] LABS: EOS % 6.2 % (0-4.5); HEMATOCRIT 23.6 % (35.4-49); HEMOGLOBIN 7.6 GM/dL (11.7-16.9); LYMPH % 11.6 % (8-40); MCH 30.4 pg (25.7-33.7); MCHC 32.2 g/dl (32.0-35.9); MEAN CELL VOLUME 94.2 fl (80-96); MEAN PLT VOLUME 8.2 fl (7.5-11.1); MONO % 10.3 % (3.8-10.2); NEUT % 70.9 % (42.8-82.8); PLATELET COUNT 116 K/MM3 (134-434); RDW 16.3 % (11.9-15.9)
[2018-02-27 07:20] LABS: ALBUMIN 3.2 g/dl (3.4-5.0); ALK PHOS 81 U/L (45-117); ANION GAP 5 MMOL/L (8-16); BILIRUBIN,TOTAL 0.3 mg/dL (0.2-1); BLOOD UREA NITROGEN 94 mg/dL (7-18); CALCIUM 7.7 mg/dL (8.5-10.1); CHLORIDE 113 mmol/L (98-107); CO2 24 mmol/L (21-32); CREATININE 2.8 mg/dL (0.55-1.3); GLUCOSE,RANDOM 106 mg/dL (74-106); MAGNESIUM 3.1 mg/dL (1.8-2.4); PHOSPHOROUS 5.9 mg/dL (2.5-4.9); POTASSIUM 5.5 mmol/L (3.5-5.1); SGOT/AST 31 U/L (15-37); SGPT/ALT 55 U/L (13-61); SODIUM 142 mmol/L (136-145); TOT PROT 6.3 g/dl (6.4-8.2)
[2018-02-27] MEDS ORDERED: FUROSEMIDE 40 MG/4 ML INJECTABLE VIAL IVPUSH ONE (08:39)
--- NOTE | 2018-02-27 08:40 | PN ---
Progress Note, Physician Chief Complaint: weight going up K+ also rising. TELE: NSR History of Present Illness: CXR reviewed. Increased PVC - Current Medication List Current Medications: Active Medications Acetaminophen (Tylenol -) 650 mg PO Q6H PRN PRN Reason: PAIN LEVEL 4 - 6 Amlodipine Besylate (Norvasc -) 10 mg PO DAILY [facility] Last Admin: 02/26/18 09:31 Dose: 10 mg Aspirin (Asa -) 81 mg PO DAILY [facility] Last Admin: 02/26/18 09:31 Dose: 81 mg Carvedilol (Coreg -) 12.5 mg PO BID [facility] Last Admin: 02/26/18 21:33 Dose: 12.5 mg Clopidogrel Bisulfate (Plavix -) 75 mg PO DAILY [facility] Last Admin: 02/26/18 09:31 Dose: 75 mg Docusate Sodium (Colace -) 100 mg PO TID PRN PRN Reason: CONSTIPATION Ferrous Sulfate (Feosol -) 325 mg PO TIDCM [facility] Last Admin: 02/26/18 17:54 Dose: 325 mg Folic Acid (Folic Acid -) 1 mg PO DAILY [facility] Last Admin: 02/26/18 09:31 Dose: 1 mg Glipizide (Glucotrol Xl -) 5 mg PO DAILY@0700 [facility] Last Admin: 02/27/18 06:21 Dose: 5 mg Insulin Aspart (Novolog Vial Sliding Scale -) [facility] Protocol Last Admin: 02/27/18 06:22 Dose: Not Given Mirtazapine (Remeron -) 7.5 mg PO [facility] Last Admin: 02/26/18 21:33 Dose: 7.5 mg Rosuvastatin Calcium (Crestor -) 40 mg PO [facility] Last Admin: 02/26/18 21:33 Dose: 40 mg Tamsulosin HCl (Flomax -) 0.8 mg PO DAILY@0830 [facility] Last Admin: 02/26/18 09:31 Dose: 0.8 mg - Objective Vital Signs: Vital Signs Temperature 97.8 F 02/27/18 06:00 Pulse Rate 72 02/27/18 06:00 Respiratory Rate 19 02/27/18 06:00 Blood Pressure 125/58 L 02/27/18 06:00 O2 Sat by Pulse Oximetry (%) 95 02/26/18 21:00 Constitutional: Yes: No Distress Cardiovascular: Yes: Regular Rate and Rhythm Respiratory: Yes: Other (decreased breath sounds at bases.) Gastrointestinal: Yes: Soft, Abdomen, Obese Edema: Yes Edema: LLE: 2+, RLE: 2+ Neurological: Yes: Alert, Oriented ...Motor Strength: WNL Labs: CBC, BMP 02/27/18 05:30 02/27/18 05:30 - ....Imaging EKG: Image Reviewed Assessment/Plan Assessment/Plan 1. Left carotid stenosis s/p left carotid endarterectomy several weeks ago 2. 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 3. LV diastolic dysfunction LVEF 50% 4. PAD status post bilateral lower extremity bypass 5. CKD with hyperkalemia 6. COPD 7. Chronic anemia Now with acute on chronic diastolic CHF REC: 1. IV Lasix today: weight increasing, CXR w/ PVC, hyperK+. Renal f/u. D/W PMD 2. Daily BMP to follow renal fx, K+ 3. Cont Carvediolol, hold ARB (advanced CKD) 4. Tele to r/o occult arrhythmias precipitating CHF- thus far negative 5. Low Na+ diet 6. Daily weights 7. DVT prophylaxis 8. Anemia w/u as per PMD, likely chronic dz (guaiac -)
[2018-02-27] MEDS: FERROUS SO4 325 MG TABLET (FP) PO SCH ×3 (09:00→17:37)
[2018-02-27] MEDS: TAMSULOSIN HCL 0.4 MG CAP PO SCH (09:17)
[2018-02-27] MEDS: ASPIRIN 81 MG CHEWABLE TABLETS PO SCH (09:18)
[2018-02-27] MEDS: CARVEDILOL 6.25 MG TABLET (FP) PO SCH ×2 (09:18→21:01)
[2018-02-27] MEDS: CLOPIDOGREL BISULFATE 75 MG TABLET (FP) PO SCH (09:19)
[2018-02-27] MEDS: FOLIC ACID 1 MG TABLET (FP) PO SCH (09:19)
[2018-02-27] MEDS: amLODIPine BESYLATE 10 MG TABLET (FP) PO SCH (09:19)
--- NOTE | 2018-02-27 12:43 | PN ---
Progress Note (short form) - Note Progress Note: Renal follow up for VANDA Pt seen and examined at the bedside has SOB/GONG no CP, Fever, chills N/V/D s/p IV Lasix this am Vital Signs Temperature 97.8 F 02/27/18 06:00 Pulse Rate 72 02/27/18 06:00 Respiratory Rate 19 02/27/18 09:00 Blood Pressure 125/58 L 02/27/18 06:00 O2 Sat by Pulse Oximetry (%) 95 02/27/18 09:00 Intake & Output 02/24/18 02/25/18 02/26/18 02/27/18 23:59 23:59 23:59 23:59 Intake Total 820 980 700 360 Output Total 1200 1900 800 Balance -380 -920 -100 360 Weight 99.246 kg 100.244 kg 101.605 kg 102.149 kg NAD RRR, No M/R Dec BS ++ edema in LE CBC, BMP 02/27/18 05:30 02/27/18 05:30 Laboratory Tests 08/17/17 08/20/17 08/21/17 06:18 06:00 06:20 Calcium 8.2 L 8.5 7.9 L Phosphorus 4.5 4.1 Magnesium 2.2 2.0 Albumin 2.6 L 02/27/18 05:30 Calcium 7.7 L Phosphorus 5.9 H Magnesium 3.1 H Albumin 3.2 L Current Medications Acetaminophen (Tylenol -) 650 mg PO Q6H PRN PRN Reason: PAIN LEVEL 4 - 6 Amlodipine Besylate (Norvasc -) 10 mg PO DAILY [facility] Last Admin: 02/27/18 09:19 Dose: 10 mg Aspirin (Asa -) 81 mg PO DAILY [facility] Last Admin: 02/27/18 09:18 Dose: 81 mg Carvedilol (Coreg -) 12.5 mg PO BID [facility] Last Admin: 02/27/18:18 Dose: 12.5 mg Clopidogrel Bisulfate (Plavix -) 75 mg PO DAILY [facility] Last Admin: 02/27/18 09:19 Dose: 75 mg Docusate Sodium (Colace -) 100 mg PO TID PRN PRN Reason: CONSTIPATION Ferrous Sulfate (Feosol -) 325 mg PO TIDCM [facility] Last Admin: 02/27/18 09:00 Dose: 325 mg Folic Acid (Folic Acid -) 1 mg PO DAILY [facility] Last Admin: 02/27/18 09:19 Dose: 1 mg Furosemide (Lasix Injection -) 60 mg IVPUSH BID@0600,1400 [facility] Glipizide (Glucotrol Xl -) 5 mg PO DAILY@0700 [facility] Last Admin: 02/27/18 06:21 Dose: 5 mg Insulin Aspart (Novolog Vial Sliding Scale -) 1 vial SQ TIDAC [facility]; Protocol Last Admin: 02/27/18 06:22 Dose: Not Given Mirtazapine (Remeron -) 7.5 mg PO HS [facility] Last Admin: 02/26/18 21:33 Dose: 7.5 mg Rosuvastatin Calcium (Crestor -) 40 mg PO [facility] Last Admin: 02/26/18 21:33 Dose: 40 mg Tamsulosin HCl (Flomax -) 0.8 mg PO DAILY@0830 [facility] Last Admin: 02/27/18 09:17 Dose: 0.8 mg 57 year old gentleman with hx of CKD stage 3b, Hypertension, CAD, CHF, CVA, COPD, DM who presented from [place] with SOB and admitted with CHF exacerbation with VANDA and hyperkalemia. #VANDA r/o cardio-renal syndrome #Hyperkalemia in setting of MICHAEL/CHF and VANDA #CHF exacerbation #Anemia #BPH Renal function unchanged at this time and pt remains volume overloaded agree with restarting Lasix IV, will give 60mg IV BID continue low salt diet and low potassium diet expect mild hyperkalemia to improve with loop diuretics can consider addition of metolazone if pt does not achieve any significant weight loss hgb noted, iron levels pending, may benifit from TY and/or IV iron Prakash Garcia DO
[2018-02-27] MEDS ORDERED: EPOETIN ALFA 20,000 UNIT/1 ML VIAL SQ ONE (12:53)
--- NOTE | 2018-02-27 12:58 | PN ---
Progress Note (short form) - Note Progress Note: fSOB while lying down had no bm in two days no chest pain Vital Signs - 24 hr 02/26/18 02/26/18 02/27/18 14:27 21:00 02:00 Temperature 97.5 F L 97.8 F 98 F Pulse Rate 76 78 73 Respiratory 18 19 20 Rate Blood Pressure 128/62 139/87 115/54 L O2 Sat by Pulse 95 Oximetry (%) 02/27/18 02/27/18 06:00 09:00 Temperature 97.8 F Pulse Rate 72 Respiratory 19 19 Rate Blood Pressure 125/58 L O2 Sat by Pulse 95 Oximetry (%) Current Medications Generic Name Dose Route Start Last Admin Trade Name Freq PRN Reason Stop Dose Admin Acetaminophen 650 mg 02/20/18 09:54 Tylenol - PO Q6H PRN PAIN LEVEL 4 - 6 Amlodipine Besylate 10 mg 02/20/18 10:00 02/27/18 09:19 Norvasc - PO 10 mg DAILY [facility] Administration Aspirin 81 mg 02/20/18 10:00 02/27/18 09:18 Asa - PO 81 mg DAILY [facility] Administration Carvedilol 12.5 mg 02/20/18 10:00 02/27/18 09:18 Coreg - PO 12.5 mg BID [facility] Administration Clopidogrel Bisulfate 75 mg 02/20/18 10:00 02/27/18 09:19 Plavix - PO 75 mg DAILY [facility] Administration Docusate Sodium 100 mg 02/20/18 09:54 Colace - PO TID PRN CONSTIPATION Epoetin Wm 20,000 unit 02/27/18 12:53 Epogen - SQ 02/27/18 12:54 ONCE ONE Ferrous Sulfate 325 mg 02/20/18 12:00 02/27/18 09:00 Feosol - PO 325 mg TIDCM [facility] Administration Folic Acid 1 mg 02/20/18 10:00 02/27/18 09:19 Folic Acid - PO 1 mg DAILY [facility] Administration Furosemide 60 mg 02/27/18 14:00 Lasix Injection - IVPUSH BID@0600,1400 [facility] Glipizide 5 mg 02/21/18 07:00 02/27/18 06:21 Glucotrol Xl - PO 5 mg DAILY@0700 [facility] Administration Insulin Aspart 1 vial 02/20/18 11:00 10/30/18 06:22 Novolog Vial Sliding Scale - SQ Not Given TIDAC [facility] Protocol Mirtazapine 7.5 mg 02/20/18 22:00 02/26/18 21:33 Remeron - PO 7.5 mg HS [facility] Administration Rosuvastatin Calcium 40 mg 02/20/18 22:00 02/26/18 21:33 Crestor - PO 40 mg HS [facility] Administration Tamsulosin HCl 0.8 mg 02/21/18 08:30 02/27/18 09:17 Flomax - PO 0.8 mg DAILY@0830 [facility] Administration Laboratory Results - last 24 hr 02/26/18 02/26/18 02/27/18 16:58 20:53 05:30 WBC 5.0 RBC 2.50 L Hgb 7.6 L Hct 23.6 L MCV 94.2 MCH 30.4 MCHC 32.2 RDW 16.3 H Plt Count 116 L MPV 8.2 Absolute Neuts (auto) 3.5 Neutrophils % 70.9 Lymphocytes % 11.6 Monocytes % 10.3 H Eosinophils % 6.2 H Basophils % 1.0 Nucleated RBC % 0 Sodium Potassium Chloride Carbon Dioxide Anion Gap BUN Creatinine Creat Clearance w eGFR POC Glucometer 155 227 Random Glucose Calcium Phosphorus Magnesium Total Bilirubin AST ALT Alkaline Phosphatase Total Protein Albumin 02/27/18 02/27/18 02/27/18 05:30 05:50 12:03 WBC RBC Hgb Hct MCV MCH MCHC RDW Plt Count MPV Absolute Neuts (auto) Neutrophils % Lymphocytes % Monocytes % Eosinophils % Basophils % Nucleated RBC % Sodium 142 Potassium 5.5 H Chloride 113 H Carbon Dioxide 24 Anion Gap 5 L BUN 94 H Creatinine 2.8 H Creat Clearance w eGFR 23.31 POC Glucometer 125 121 Random Glucose 106 Calcium 7.7 L Phosphorus 5.9 H Magnesium 3.1 H Total Bilirubin 0.3 AST 31 ALT 55 Alkaline Phosphatase 81 Total Protein 6.3 L Albumin 3.2 L S1 S2 RRR Lungs decreased Abd-soft,Nt edema ++ PLAN IV Lasix spoke with renal will give iron infusion depending on iron studies monitor potassium, kidney function may need metalozone Problem List - Problems (1) VANDA (acute kidney injury) Code(s): N17.9 - ACUTE KIDNEY FAILURE, UNSPECIFIED (2) CHF (congestive heart failure) Code(s): I50.9 - HEART FAILURE, UNSPECIFIED Qualifiers: Heart failure type: unspecified Heart failure chronicity: acute on chronic Qualified Code(s): I50.9 - Heart failure, unspecified (3) ASHD (arteriosclerotic heart disease) Code(s): I25.10 - ATHSCL HEART DISEASE OF [place] CORONARY ARTERY W/O ANG PCTRS (4) Acute on chronic diastolic CHF (congestive heart failure) Code(s): I50.33 - ACUTE ON CHRONIC DIASTOLIC (CONGESTIVE) HEART FAILURE
[2018-02-27] MEDS ORDERED: PT OWN MED DRAWER 7, Y5N ONE (13:22)
[2018-02-27] MEDS: FUROSEMIDE 40 MG/4 ML INJECTABLE VIAL IVPUSH SCH (15:00)
[2018-02-27] MEDS: MIRTAZAPINE 15 MG TABLET (FP) PO SCH (21:00)
[2018-02-27] MEDS: ROSUVASTATIN CA 20 MG TABLET (FP) PO SCH (21:00)
[2018-02-28] MEDS: ACETAMINOPHEN 325 MG TABLET (FP) PO PRN (03:35)
[2018-02-28] MEDS ORDERED: INSULIN (NOVOLOG) ASPART 100 UNITS/ML 10ML VIAL ONE (06:03)
[2018-02-28 06:06] LABS: SERUM IRON SATURATION 26 % (15-55); TOTAL IRON BINDING CAPACITY 281 ug/dL (250-450); UIBC 207 ug/dL (111-343)
[2018-02-28] MEDS: glipiZIDE-XL 5 MG TAB.ER.24 PO SCH (06:08)
[2018-02-28] MEDS: INSULIN SLIDING SCALE (NOVOLOG) 1 VIAL SQ SCH ×3 (06:09→16:27)
[2018-02-28] MEDS: FUROSEMIDE 40 MG/4 ML INJECTABLE VIAL IVPUSH SCH ×2 (06:10→14:08)
[2018-02-28 07:43] LABS: BASO % 0.8 % (0-2.0); EOS % 6.1 % (0-4.5); HEMATOCRIT 22.6 % (35.4-49); HEMOGLOBIN 7.4 GM/dL (11.7-16.9); MCH 30.8 pg (25.7-33.7); MCHC 32.7 g/dl (32.0-35.9); MEAN CELL VOLUME 94.3 fl (80-96); MEAN PLT VOLUME 8.3 fl (7.5-11.1); MONO % 10.8 % (3.8-10.2); NEUT % 68.3 % (42.8-82.8); PLATELET COUNT 109 K/MM3 (134-434); RBC 2.39 M/mm3 (4.00-5.60); RDW 16.3 % (11.9-15.9); WHITE BLOOD COUNT 4.4 K/mm3 (4.0-10.0)
[2018-02-28 08:12] LABS: ANION GAP 2 MMOL/L (8-16); BLOOD UREA NITROGEN 94 mg/dL (7-18); CALCIUM 8.2 mg/dL (8.5-10.1); CHLORIDE 113 mmol/L (98-107); CO2 24 mmol/L (21-32); GLUCOSE,RANDOM 60 mg/dL (74-106); POTASSIUM 5.2 mmol/L (3.5-5.1); SODIUM 139 mmol/L (136-145)
[2018-02-28] MEDS: FERROUS SO4 325 MG TABLET (FP) PO SCH ×3 (08:26→17:03)
[2018-02-28] MEDS: TAMSULOSIN HCL 0.4 MG CAP PO SCH (08:26)
--- NOTE | 2018-02-28 08:44 | PN ---
Progress Note, Physician Chief Complaint: good urine output Feeling well Appreciate renal input - Current Medication List Current Medications: Active Medications Acetaminophen (Tylenol -) 650 mg PO Q6H PRN PRN Reason: PAIN LEVEL 4 - 6 Last Admin: 02/28/18 03:35 Dose: 650 mg Amlodipine Besylate (Norvasc -) 10 mg PO DAILY [facility] Last Admin: 02/27/18 09:19 Dose: 10 mg Aspirin (Asa -) 81 mg PO DAILY [facility] Last Admin: 02/27/18 09:18 Dose: 81 mg Carvedilol (Coreg -) 12.5 mg PO BID [facility] Last Admin: 02/27/18 21:01 Dose: 12.5 mg Clopidogrel Bisulfate (Plavix -) 75 mg PO DAILY [facility] Last Admin: 02/27/18 09:19 Dose: 75 mg Docusate Sodium (Colace -) 100 mg PO TID PRN PRN Reason: CONSTIPATION Ferrous Sulfate (Feosol -) 325 mg PO TIDCM [facility] Last Admin: 02/28/18 08:26 Dose: 325 mg Folic Acid (Folic Acid -) 1 mg PO DAILY [facility] Last Admin: 02/27/18 09:19 Dose: 1 mg Furosemide (Lasix Injection -) 60 mg IVPUSH BID@0600,1400 [facility] Last Admin: 02/28/18 06:10 Dose: 60 mg Glipizide (Glucotrol Xl -) 5 mg PO DAILY@0700 [facility] Last Admin: 02/28/18 06:08 Dose: 5 mg Insulin Aspart (Novolog Vial Sliding Scale -) 1 vial SQ TIDAC [facility]; Protocol Last Admin: 02/28/18 06:09 Dose: 2 units Mirtazapine (Remeron -) 7.5 mg PO [facility] Last Admin: 02/27/18 21:00 Dose: 7.5 mg Rosuvastatin Calcium (Crestor -) 40 mg PO [facility] Last Admin: 02/27/18 21:00 Dose: 40 mg Tamsulosin HCl (Flomax -) 0.8 mg PO DAILY@0830 [facility] Last Admin: 02/28/18 08:26 Dose: 0.8 mg - Objective Vital Signs: Vital Signs Temperature 97.3 F L 02/28/18 06:00 Pulse Rate 71 02/28/18 06:00 Respiratory Rate 18 02/28/18 06:00 Blood Pressure 114/61 02/28/18 06:00 O2 Sat by Pulse Oximetry (%) 98 02/27/18 21:00 Constitutional: Yes: Calm Cardiovascular: Yes: Regular Rate and Rhythm Respiratory: Yes: Other (decreased breath sounds at bases) Gastrointestinal: Yes: Soft, Abdomen, Obese Edema: Yes Edema: LLE: 2+, RLE: 2+ Neurological: Yes: Alert, Oriented Labs: CBC, BMP 02/28/18 07:20 02/28/18 07:20 Laboratory Tests 02/28/18 02/28/18 07:20 07:20 WBC 4.4 Hgb 7.4 L Plt Count 109 L Sodium 139 Potassium 5.2 H BUN 94 H Creatinine 3.0 H - ....Imaging EKG: Image Reviewed (TELE: NSR, no sig arrhythmias) Assessment/Plan Assessment/Plan 1. Left carotid stenosis s/p left carotid endarterectomy several weeks ago 2. 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 3. LV diastolic dysfunction LVEF 50% 4. PAD status post bilateral lower extremity bypass 5. CKD with hyperkalemia 6. COPD 7. Chronic anemia Now with acute on chronic diastolic CHF- chronic volume overload. REC: 1. IV Lasix today: weight increasing, CXR w/ PVC, hyperK+. IV Lasix resumed. 2. Daily BMP to follow renal fx, K+ 3. Cont Carvediolol, hold ARB (advanced CKD). BP will not tolerate introduction of Nitrate/ Hydral at this time. 4. Tele to r/o occult arrhythmias precipitating CHF- thus far negative 5. Low Na+ diet 6. Daily weights 7. DVT prophylaxis 8. Anemia w/u as per PMD, likely chronic dz (guaiac -)
[2018-02-28] MEDS: CLOPIDOGREL BISULFATE 75 MG TABLET (FP) PO SCH (09:52)
[2018-02-28] MEDS: FOLIC ACID 1 MG TABLET (FP) PO SCH (09:52)
[2018-02-28] MEDS: amLODIPine BESYLATE 10 MG TABLET (FP) PO SCH (09:53)
[2018-02-28] MEDS: ASPIRIN 81 MG CHEWABLE TABLETS PO SCH (09:53)
[2018-02-28] MEDS: CARVEDILOL 6.25 MG TABLET (FP) PO SCH ×2 (09:53→22:04)
[2018-02-28] MEDS ORDERED: IRON SUCROSE INJECTION 200 MG in SODIUM CHLORIDE 90 ML IVPB ONE (12:39)
[2018-02-28] MEDS ORDERED: BISACODYL 5 MG TABLET.DR (FP) PO ONE (13:03)
--- NOTE | 2018-02-28 13:03 | PN ---
Progress Note (short form) - Note Progress Note: SOB - less had no bm in 3 days no chest pain Vital Signs - 24 hr 02/26/18 02/26/18 02/27/18 14:27 21:00 02:00 Temperature 97.5 F L 97.8 F 98 F Pulse Rate 76 78 73 Respiratory 18 19 20 Rate Blood Pressure 128/62 139/87 115/54 L O2 Sat by Pulse 95 Oximetry (%) 02/27/18 02/27/18 06:00 09:00 Temperature 97.8 F Pulse Rate 72 Respiratory 19 19 Rate Blood Pressure 125/58 L O2 Sat by Pulse 95 Oximetry (%) Current Medications Generic Name Dose Route Start Last Admin Trade Name Freq PRN Reason Stop Dose Admin Acetaminophen 650 mg 02/20/18 09:54 Tylenol - PO Q6H PRN PAIN LEVEL 4 - 6 Amlodipine Besylate 10 mg 02/20/18 10:00 02/27/18 09:19 Norvasc - PO 10 mg DAILY [facility] Administration Aspirin 81 mg 02/20/18 10:00 02/27/18 09:18 Asa - PO 81 mg DAILY [facility] Administration Carvedilol 12.5 mg 02/20/18 10:00 02/27/18 09:18 Coreg - PO 12.5 mg BID [facility] Administration Clopidogrel Bisulfate 75 mg 02/20/18 10:00 02/27/18 09:19 Plavix - PO 75 mg DAILY [facility] Administration Docusate Sodium 100 mg 02/20/18 09:54 Colace - PO TID PRN CONSTIPATION Epoetin Wm 20,000 unit 02/27/18 12:53 Epogen - SQ 02/27/18 12:54 ONCE ONE Ferrous Sulfate 325 mg 02/20/18 12:00 02/27/18 09:00 Feosol - PO 325 mg TIDCM [facility] Administration Folic Acid 1 mg 02/20/18 10:00 02/27/18 09:19 Folic Acid - PO 1 mg DAILY [facility] Administration Furosemide 60 mg 02/27/18 14:00 Lasix Injection - IVPUSH BID@0600,1400 [facility] Glipizide 5 mg 02/21/18 07:00 02/27/18 06:21 Glucotrol Xl - PO 5 mg DAILY@0700 [facility] Administration Insulin Aspart 1 vial 02/20/18 11:00 02/27/18 06:22 Novolog Vial Sliding Scale - SQ Not Given TIDAC [facility] Protocol Mirtazapine 7.5 mg 02/20/18 22:00 02/26/18 21:33 Remeron - PO 7.5 mg HS [facility] Administration Rosuvastatin Calcium 40 mg 02/20/18 22:00 02/26/18 21:33 Crestor - PO 40 mg HS [facility] Administration Tamsulosin HCl 0.8 mg 02/21/18 08:30 02/27/18 09:17 Flomax - PO 0.8 mg DAILY@0830 [facility] Administration Laboratory Results - last 24 hr 02/26/18 02/26/18 02/27/18 16:58 20:53 05:30 WBC 5.0 RBC 2.50 L Hgb 7.6 L Hct 23.6 L MCV 94.2 MCH 30.4 MCHC 32.2 RDW 16.3 H Plt Count 116 L MPV 8.2 Absolute Neuts (auto) 3.5 Neutrophils % 70.9 Lymphocytes % 11.6 Monocytes % 10.3 H Eosinophils % 6.2 H Basophils % 1.0 Nucleated RBC % 0 Sodium Potassium Chloride Carbon Dioxide Anion Gap BUN Creatinine Creat Clearance w eGFR POC Glucometer 155 227 Random Glucose Calcium Phosphorus Magnesium Total Bilirubin AST ALT Alkaline Phosphatase Total Protein Albumin 02/27/18 02/27/18 02/27/18 05:30 05:50 12:03 WBC RBC Hgb Hct MCV MCH MCHC RDW Plt Count MPV Absolute Neuts (auto) Neutrophils % Lymphocytes % Monocytes % Eosinophils % Basophils % Nucleated RBC % Sodium 142 Potassium 5.5 H Chloride 113 H Carbon Dioxide 24 Anion Gap 5 L BUN 94 H Creatinine 2.8 H Creat Clearance w eGFR 23.31 POC Glucometer 125 121 Random Glucose 106 Calcium 7.7 L Phosphorus 5.9 H Magnesium 3.1 H Total Bilirubin 0.3 AST 31 ALT 55 Alkaline Phosphatase 81 Total Protein 6.3 L Albumin 3.2 L S1 S2 RRR Lungs decreased Abd-soft,Nt edema ++ PLAN IV Lasix spoke with renal worsening renal function will give iron infusion depending on iron studies monitor potassium, kidney function may need metalozone Problem List - Problems (1) VANDA (acute kidney injury) Code(s): N17.9 - ACUTE KIDNEY FAILURE, UNSPECIFIED (2) CHF (congestive heart failure) Code(s): I50.9 - HEART FAILURE, UNSPECIFIED Qualifiers: Heart failure type: unspecified Heart failure chronicity: acute on chronic Qualified Code(s): I50.9 - Heart failure, unspecified (3) ASHD (arteriosclerotic heart disease) Code(s): I25.10 - ATHSCL HEART DISEASE OF [place] CORONARY ARTERY W/O ANG PCTRS (4) Acute on chronic diastolic CHF (congestive heart failure) Code(s): I50.33 - ACUTE ON CHRONIC DIASTOLIC (CONGESTIVE) HEART FAILURE
[2018-02-28] MEDS ORDERED: METOLAZONE 2.5 MG TABLET (FP) PO ONE (13:30)
--- NOTE | 2018-02-28 16:25 | PN ---
Progress Note (short form) - Note Progress Note: Renal follow up for VANDA Pt seen and examined at the bedside SOB mildly improved but not near baseline legs remains swollen no cp, abd pain, N/V/D Vital Signs Temperature 98.2 F 02/28/18 14:10 Pulse Rate 71 02/28/18 14:10 Respiratory Rate 20 02/28/18 14:10 Blood Pressure 128/59 L 02/28/18 14:10 O2 Sat by Pulse Oximetry (%) 95 02/28/18 12:28 NAD RRR, No M/R Dec BS ++ edema in LE CBC, BMP 02/28/18 07:20 02/28/18 07:20 Current Medications Acetaminophen (Tylenol -) 650 mg PO Q6H PRN PRN Reason: PAIN LEVEL 4 - 6 Last Admin: 02/28/18 03:35 Dose: 650 mg Amlodipine Besylate (Norvasc -) 10 mg PO DAILY [facility] Last Admin: 02/28/18 09:53 Dose: 10 mg Aspirin (Asa -) 81 mg PO DAILY [facility] Last Admin: 02/28/18 09:53 Dose: 81 mg Carvedilol (Coreg -) 12.5 mg PO BID [facility] Last Admin: 02/28/18 09:53 Dose: 12.5 mg Clopidogrel Bisulfate (Plavix -) 75 mg PO DAILY [facility] Last Admin: 02/28/18 09:52 Dose: 75 mg Docusate Sodium (Colace -) 100 mg PO TID PRN PRN Reason: CONSTIPATION Ferrous Sulfate (Feosol -) 325 mg PO TIDCM [facility] Last Admin: 02/28/18 11:52 Dose: 325 mg Folic Acid (Folic Acid -) 1 mg PO DAILY [facility] Last Admin: 02/28/18 09:52 Dose: 1 mg Furosemide (Lasix Injection -) 60 mg IVPUSH BID@0600,1400 [facility] Last Admin: 02/28/18 14:08 Dose: 60 mg Glipizide (Glucotrol Xl -) 5 mg PO DAILY@0700 [facility] Last Admin: 02/28/18 06:08 Dose: 5 mg Insulin Aspart (Novolog Vial Sliding Scale -) 1 vial SQ TIDAC [facility]; Protocol Last Admin: 02/28/18 12:03 Dose: Not Given Mirtazapine (Remeron -) 7.5 mg PO HS [facility] Last Admin: 02/27/18 21:00 Dose: 7.5 mg Rosuvastatin Calcium (Crestor -) 40 mg PO HS [facility] Last Admin: 02/27/18 21:00 Dose: 40 mg Tamsulosin HCl (Flomax -) 0.8 mg PO DAILY@0830 [facility] Last Admin: 02/28/18 08:26 Dose: 0.8 mg 57 year old gentleman with hx of CKD stage 3b, Hypertension, CAD, CHF, CVA, COPD, DM who presented from [place] with SOB and admitted with CHF exacerbation with VANDA and hyperkalemia. #VANDA r/o cardio-renal syndrome #Hyperkalemia in setting of MICHAEL/CHF and VANDA #CHF exacerbation #Anemia #BPH Renal function unchanged, no signs of uremia despite high BUN Continue Lasix 60mg IV BID, amairani give metolazone 2.5mg today with PM lasix continue low salt diet and low potassium diet hyperkalemia mildly improved s/p Epogen yesterday, will give IV iron 200mg today trend CBC, no acute need for transfusion Prakash Garcia DO
[2018-02-28] MEDS: MIRTAZAPINE 15 MG TABLET (FP) PO SCH (22:04)
[2018-02-28] MEDS: ROSUVASTATIN CA 20 MG TABLET (FP) PO SCH (22:04)
[2018-03-01] MEDS: glipiZIDE-XL 5 MG TAB.ER.24 PO SCH (06:17)
[2018-03-01] MEDS: FUROSEMIDE 40 MG/4 ML INJECTABLE VIAL IVPUSH SCH ×2 (06:17→15:44)
[2018-03-01] MEDS: INSULIN SLIDING SCALE (NOVOLOG) 1 VIAL SQ SCH ×3 (06:17→16:38)
--- NOTE | 2018-03-01 08:48 | PN ---
Progress Note, Physician Chief Complaint: Recorded weight is unchanged [place] SOB around 4am- orthopnea History of Present Illness: TELE: NSR - Current Medication List Current Medications: Active Medications Acetaminophen (Tylenol -) 650 mg PO Q6H PRN PRN Reason: PAIN LEVEL 4 - 6 Last Admin: 02/28/18 03:35 Dose: 650 mg Amlodipine Besylate (Norvasc -) 10 mg PO DAILY [facility] Last Admin: 02/28/18 09:53 Dose: 10 mg Aspirin (Asa -) 81 mg PO DAILY [facility] Last Admin: 02/28/18 09:53 Dose: 81 mg Carvedilol (Coreg -) 12.5 mg PO BID [facility] Last Admin: 02/28/18 22:04 Dose: 12.5 mg Clopidogrel Bisulfate (Plavix -) 75 mg PO DAILY [facility] Last Admin: 02/28/18 09:52 Dose: 75 mg Docusate Sodium (Colace -) 100 mg PO TID PRN PRN Reason: CONSTIPATION Ferrous Sulfate (Feosol -) 325 mg PO TIDCM [facility] Last Admin: 02/28/18 17:03 Dose: 325 mg Folic Acid (Folic Acid -) 1 mg PO DAILY [facility] Last Admin: 02/28/18 09:52 Dose: 1 mg Furosemide (Lasix Injection -) 60 mg IVPUSH BID@0600,1400 [facility] Last Admin: 03/01/18 06:17 Dose: 60 mg Glipizide (Glucotrol Xl -) 5 mg PO DAILY@0700 [facility] Last Admin: 03/01/18 06:17 Dose: Not Given Insulin Aspart (Novolog Vial Sliding Scale -) [facility] Last Admin: 03/01/18 06:17 Dose: Not Given Mirtazapine (Remeron -) 7.5 mg PO [facility] Last Admin: 02/28/18 22:04 Dose: 7.5 mg Rosuvastatin Calcium (Crestor -) 40 mg PO [facility] Last Admin: 02/28/18 22:04 Dose: 40 mg Tamsulosin HCl (Flomax -) 0.8 mg PO DAILY@0830 [facility] Last Admin: 02/28/18 08:26 Dose: 0.8 mg - Objective Vital Signs: Vital Signs Temperature 98.1 F 03/01/18 08:25 Pulse Rate 75 03/01/18 08:25 Respiratory Rate 19 03/01/18 08:25 Blood Pressure 131/62 03/01/18 08:25 O2 Sat by Pulse Oximetry (%) 95 02/28/18 21:00 Constitutional: Yes: Calm Cardiovascular: Yes: Regular Rate and Rhythm Respiratory: Yes: Other (bilateral rales) Gastrointestinal: Yes: Soft, Abdomen, Obese Edema: Yes Edema: LLE: 2+, RLE: 2+ Neurological: Yes: Alert, Oriented ...Motor Strength: WNL Labs: CBC, BMP 02/28/18 07:20 02/28/18 07:20 - ....Imaging EKG: Image Reviewed Assessment/Plan Assessment/Plan 1. Left carotid stenosis s/p left carotid endarterectomy several weeks ago 2. 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 3. LV diastolic dysfunction LVEF 50% 4. PAD status post bilateral lower extremity bypass 5. CKD with hyperkalemia 6. COPD 7. Chronic anemia Now with acute on chronic diastolic CHF- chronic volume overload REC: 1. Continue IV Lasix; Zarox TIW. Repeat Echo. 2. Daily BMP to follow renal fx, K+ 3. Cont Carvediolol, hold ARB (advanced CKD). BP will not tolerate introduction of Nitrate/ Hydral at this time. 4. Tele to r/o occult arrhythmias precipitating CHF- thus far negative 5. Low Na+ diet 6. Daily weights 7. DVT prophylaxis
[2018-03-01] MEDS: CARVEDILOL 6.25 MG TABLET (FP) PO SCH ×2 (09:19→21:44)
[2018-03-01] MEDS: FOLIC ACID 1 MG TABLET (FP) PO SCH (09:19)
[2018-03-01] MEDS: ASPIRIN 81 MG CHEWABLE TABLETS PO SCH (09:19)
[2018-03-01] MEDS: amLODIPine BESYLATE 10 MG TABLET (FP) PO SCH (09:19)
[2018-03-01] MEDS: TAMSULOSIN HCL 0.4 MG CAP PO SCH (09:19)
[2018-03-01] MEDS: FERROUS SO4 325 MG TABLET (FP) PO SCH ×3 (09:19→16:56)
[2018-03-01] MEDS: CLOPIDOGREL BISULFATE 75 MG TABLET (FP) PO SCH (09:19)
[2018-03-01] MEDS ORDERED: METOLAZONE 2.5 MG TABLET (FP) PO ONE (12:02)
--- NOTE | 2018-03-01 13:14 | PN ---
Progress Note (short form) - Note Progress Note: SOB - less fatigued unsteady gait no chest pain Vital Signs - 24 hr 02/28/18 02/28/18 02/28/18 14:10 17:00 21:00 Temperature 98.2 F 98.0 F 97.3 F L Pulse Rate 71 70 72 Respiratory 20 18 19 Rate Blood Pressure 128/59 L 120/60 126/64 O2 Sat by Pulse 95 Oximetry (%) 03/01/18 03/01/18 03/01/18 02:00 06:00 08:25 Temperature 97.4 F L 98.1 F 98.1 F Pulse Rate 76 78 75 Respiratory 20 18 19 Rate Blood Pressure 114/60 130/60 131/62 O2 Sat by Pulse Oximetry (%) 03/01/18 09:00 Temperature Pulse Rate Respiratory Rate Blood Pressure O2 Sat by Pulse 95 Oximetry (%) Current Medications Generic Name Dose Route Start Last Admin Trade Name Freq PRN Reason Stop Dose Admin Acetaminophen 650 mg 02/20/18 09:54 02/28/18 03:35 Tylenol - PO 650 mg Q6H PRN Administration PAIN LEVEL 4 - 6 Amlodipine Besylate 10 mg 02/20/18 10:00 03/01/18 09:19 Norvasc - PO 10 mg DAILY [facility] Administration Aspirin 81 mg 02/20/18 10:00 03/01/18 09:19 Asa - PO 81 mg DAILY [facility] Administration Carvedilol 12.5 mg 02/20/18 10:00 03/01/18 09:19 Coreg - PO 12.5 mg BID [facility] Administration Clopidogrel Bisulfate 75 mg 02/20/18 10:00 03/01/18 09:19 Plavix - PO 75 mg DAILY [facility] Administration Docusate Sodium 100 mg 02/20/18 09:54 Colace - PO TID PRN CONSTIPATION Ferrous Sulfate 325 mg 02/20/18 12:00 03/01/18 11:51 Feosol - PO 325 mg TIDCM [facility] Administration Folic Acid 1 mg 02/20/18 10:00 03/01/18 09:19 Folic Acid - PO 1 mg DAILY [facility] Administration Furosemide 60 mg 02/27/18 14:00 03/01/18 06:17 Lasix Injection - IVPUSH 60 mg BID@0600,1400 [facility] Administration Glipizide 5 mg 02/21/18 07:00 03/01/18 06:17 Glucotrol Xl - PO Not Given DAILY@0700 [facility] Insulin Aspart 1 vial 02/20/18 11:00 03/01/18 11:50 Novolog Vial Sliding Scale - SQ Not Given TIDAC [facility] Protocol Mirtazapine 7.5 mg 02/20/18 22:00 02/28/18 22:04 Remeron - PO 7.5 mg HS [facility] Administration Rosuvastatin Calcium 40 mg 02/20/18 22:00 02/28/18 22:04 Crestor - PO 40 mg HS [facility] Administration Tamsulosin HCl 0.8 mg 02/21/18 08:30 03/01/18 09:19 Flomax - PO 0.8 mg DAILY@0830 [facility] Administration Laboratory Results - last 24 hr 02/28/18 03/01/18 03/01/18 16:14 05:42 11:37 POC Glucometer 104 79 74 Laboratory Results - last 24 hr 03/01/18 03/01/18 03/01/18 05:42 11:37 13:45 Sodium 141 Potassium 5.1 Chloride 108 H Carbon Dioxide 24 Anion Gap 9 BUN 102 H Creatinine 3.4 H Creat Clearance w eGFR 18.63 POC Glucometer 79 74 Random Glucose 87 Calcium 8.0 L 03/01/18 16:37 Sodium Potassium Chloride Carbon Dioxide Anion Gap BUN Creatinine Creat Clearance w eGFR POC Glucometer 91 Random Glucose Calcium S1 S2 RRR Lungs decreased Abd-soft,Nt edema ++ PLAN IV Lasix-- may need to hold off-- worsening renal function he is still volume overloaded may need dialysis spoke with Cardiology and Renal Problem List - Problems (1) VANDA (acute kidney injury) Code(s): N17.9 - ACUTE KIDNEY FAILURE, UNSPECIFIED (2) CHF (congestive heart failure) Code(s): I50.9 - HEART FAILURE, UNSPECIFIED Qualifiers: Heart failure type: unspecified Heart failure chronicity: acute on chronic Qualified Code(s): I50.9 - Heart failure, unspecified (3) ASHD (arteriosclerotic heart disease) Code(s): I25.10 - ATHSCL HEART DISEASE OF [place] CORONARY ARTERY W/O ANG PCTRS (4) Acute on chronic diastolic CHF (congestive heart failure) Code(s): I50.33 - ACUTE ON CHRONIC DIASTOLIC (CONGESTIVE) HEART FAILURE
--- NOTE | 2018-03-01 13:34 | PN ---
Progress Note, Physician Chief Complaint: The patient seen sitting by his bed. Says he is quite short of breath. On IV Lasix twice daily. Maintains fair amounts of urine. History of Present Illness: 57 year old gentleman with hx of CKD stage 3b, Hypertension, CAD, CHF, CVA, COPD , DM who presented from [place] with SOB and admitted with CHF exacerbation with VANDA - Current Medication List Current Medications: Active Medications Acetaminophen (Tylenol -) 650 mg PO Q6H PRN PRN Reason: PAIN LEVEL 4 - 6 Last Admin: 02/28/18 03:35 Dose: 650 mg Amlodipine Besylate (Norvasc -) 10 mg PO DAILY [facility] Last Admin: 03/01/18 09:19 Dose: 10 mg Aspirin (Asa -) 81 mg PO DAILY [facility] Last Admin: 03/01/18 09:19 Dose: 81 mg Carvedilol (Coreg -) 12.5 mg PO BID [facility] Last Admin: 03/01/18 09:19 Dose: 12.5 mg Clopidogrel Bisulfate (Plavix -) 75 mg PO DAILY [facility] Last Admin: 03/01/18 09:19 Dose: 75 mg Docusate Sodium (Colace -) 100 mg PO TID PRN PRN Reason: CONSTIPATION Ferrous Sulfate (Feosol -) 325 mg PO TIDCM [facility] Last Admin: 03/01/18 11:51 Dose: 325 mg Folic Acid (Folic Acid -) 1 mg PO DAILY [facility] Last Admin: 03/01/18 09:19 Dose: 1 mg Furosemide (Lasix Injection -) 60 mg IVPUSH BID@0600,1400 [facility] Last Admin: 03/01/18 06:17 Dose: 60 mg Glipizide (Glucotrol Xl -) 5 mg PO DAILY@0700 [facility] Last Admin: 03/01/18 06:17 Dose: Not Given Insulin Aspart (Novolog Vial Sliding Scale -) 1 vial SQ TIDAC [facility]; Protocol Last Admin: 03/01/18 11:50 Dose: Not Given Mirtazapine (Remeron -) 7.5 mg PO [facility] Last Admin: 02/28/18 22:04 Dose: 7.5 mg Rosuvastatin Calcium (Crestor -) 40 mg PO [facility] Last Admin: 02/28/18 22:04 Dose: 40 mg Tamsulosin HCl (Flomax -) 0.8 mg PO DAILY@0830 [facility] Last Admin: 03/01/18 09:19 Dose: 0.8 mg - Objective Vital Signs: Vital Signs Temperature 98.1 F 03/01/18 08:25 Pulse Rate 75 03/01/18 08:25 Respiratory Rate 19 03/01/18 08:25 Blood Pressure 131/62 03/01/18 08:25 O2 Sat by Pulse Oximetry (%) 95 03/01/18 09:00 Constitutional: Yes: Anxious, Mild Distress Eyes: Yes: Conjunctiva Clear HENT: Yes: Normocephalic Neck: Yes: Trachea Midline Cardiovascular: Yes: Tachycardia, S1, S2 Respiratory: Yes: Diminished, Poor Air Entry Gastrointestinal: Yes: Normal Bowel Sounds, Soft Extremities: No: Calf Tenderness Edema: Yes Neurological: Yes: Alert Labs: CBC, BMP 02/28/18 07:20 02/28/18 07:20 Problem List - Problems (1) VANDA (acute kidney injury) Code(s): N17.9 - ACUTE KIDNEY FAILURE, UNSPECIFIED (2) CHF (congestive heart failure) Code(s): I50.9 - HEART FAILURE, UNSPECIFIED Qualifiers: Heart failure type: unspecified Heart failure chronicity: acute on chronic Qualified Code(s): I50.9 - Heart failure, unspecified (3) ASHD (arteriosclerotic heart disease) Code(s): I25.10 - ATHSCL HEART DISEASE OF [place] CORONARY ARTERY W/O ANG PCTRS (4) Anemia Code(s): D64.9 - ANEMIA, UNSPECIFIED Qualifiers: Anemia type: unspecified type Qualified Code(s): D64.9 - Anemia, unspecified (5) Arterial insufficiency of lower extremity Code(s): I73.9 - PERIPHERAL VASCULAR DISEASE, UNSPECIFIED (6) CAD (coronary artery disease) Code(s): I25.10 - ATHSCL HEART DISEASE OF [place] CORONARY ARTERY W/O ANG PCTRS Qualifiers: Coronary Disease-Associated Artery/Lesion type: [place] artery Associated angina: with stable angina (7) Cellulitis Code(s): L03.90 - CELLULITIS, UNSPECIFIED Qualifiers: Site of cellulitis: extremity Site of cellulitis of extremity: lower extremity Laterality: left Qualified Code(s): L03.116 - Cellulitis of left lower limb (8) Diabetes mellitus, insulin dependent (IDDM), controlled Code(s): E10.9 - TYPE 1 DIABETES MELLITUS WITHOUT COMPLICATIONS (9) Diabetic neuropathy Code(s): E11.40 - TYPE 2 DIABETES MELLITUS WITH DIABETIC NEUROPATHY, UNSP Qualifiers: Diabetes mellitus type: due to underlying condition (10) Diastolic CHF Code(s): I50.30 - UNSPECIFIED DIASTOLIC (CONGESTIVE) HEART FAILURE Qualifiers: Heart failure chronicity: chronic Qualified Code(s): I50.32 - Chronic diastolic (congestive) heart failure (11) Edema Code(s): R60.9 - EDEMA, UNSPECIFIED Qualifiers: Edema type: unspecified Qualified Code(s): R60.9 - Edema, unspecified (12) Hyperkalemia Code(s): E87.5 - HYPERKALEMIA Assessment/Plan 57 year old gentleman with hx of CKD stage 3b, Hypertension, CAD, CHF, CVA, COPD , DM who presented from [place] with SOB and admitted with CHF exacerbation with VANDA Massive fluid overload. Some of the edema is chronic. On IV Lasix. Will add Zaroxylin to the regimen today. VANDA, with a major component of Hemodynamic Renal insufficiency. Azotemia perpetuated by the hemodynamic factors. Will continue to monitor the renal functions with you. Thank you. Will follow with you. Susie Brooke MD
[2018-03-01] MEDS ORDERED: PT OWN MED DRAWER 7, Y5N ONE (13:44)
--- NOTE | 2018-03-01 13:47 | ECHO ---
Name: FINA ZHOU Exam:Adult Echocardiogram Study Date: 03/01/2018 10:09 AM Age: 57 yrs Reason For Study: REFRACTORY CHF Height: 63 in Weight: 226 lb BSA: 2.0 m2 MMode/2D Measurements & Calculations IVSd: 1.1 cm Ao root diam: 3.7 cm LVIDd: 5.3 cm LA dimension: 4.5 cm LVIDs: 3.3 cm ACS: 1.8 cm LVPWd: 1.2 cm IVSs: 1.3 cm LVPWs: 1.6 cm EDV(Teich): 135.2 ml ESV(Teich): 43.5 ml Doppler Measurements & Calculations MV E max josh: 143.1 cm/sec Ao V2 max: 138.8 cm/sec MV A max josh: 78.0 cm/sec Ao max P.7 mmHg MV E/A: 1.8 Ao V2 mean: 106.2 cm/sec Ao mean P.9 mmHg Ao V2 VTI: 32.5 cm MR max josh: 409.7 cm/sec TR max josh: 253.6 cm/sec MR max P.8 mmHg TR max P.7 mmHg Med Peak E' Josh: 5.2 cm/sec Med E/e': 27.7 Lat Peak E' Josh: 5.0 cm/sec Lat E/e': 28.8 Procedure A complete two-dimensional transthoracic echocardiogram was performed (2D, M-mode, Doppler and color flow Doppler). Left Ventricle There is mild concentric left ventricular hypertrophy. The left ventricular ejection fraction is norm al. Ejection Fraction = 60-65%. No regional wall motion abnormalities noted. Right Ventricle The right ventricle is normal in size and function. Atria Normal left and right atrial size and function. Mitral Valve There is mild mitral annular calcification. There is trace mitral regurgitation. Tricuspid Valve There is trace tricuspid regurgitation. Right ventricular systolic pressure is normal. Aortic Valve No hemodynamically significant valvular aortic stenosis. No aortic regurgitation is present. Pulmonic Valve There is no pulmonic valvular regurgitation. Great Vessels The aortic root is normal size. Pericardium/Pleura There is no pericardial effusion. Interpretation Summary There is mild concentric left ventricular hypertrophy. The left ventricular ejection fraction is normal. The right ventricle is normal in size and function. There is trace mitral regurgitation. There is trace tricuspid regurgitation. MD Mamadou Blackwell 03/01/2018 01:46 PM
[2018-03-01 15:13] LABS: ANION GAP 9 MMOL/L (8-16); BLOOD UREA NITROGEN 102 mg/dL (7-18); CHLORIDE 108 mmol/L (98-107); CO2 24 mmol/L (21-32); CREATININE 3.4 mg/dL (0.55-1.3); GLUCOSE,RANDOM 87 mg/dL (74-106); POTASSIUM 5.1 mmol/L (3.5-5.1); SODIUM 141 mmol/L (136-145)
[2018-03-01] MEDS: MIRTAZAPINE 15 MG TABLET (FP) PO SCH (21:45)
[2018-03-01] MEDS: ROSUVASTATIN CA 20 MG TABLET (FP) PO SCH (21:46)
[2018-03-02] MEDS: FUROSEMIDE 40 MG/4 ML INJECTABLE VIAL IVPUSH SCH (05:43)
[2018-03-02] MEDS: INSULIN SLIDING SCALE (NOVOLOG) 1 VIAL SQ SCH ×3 (06:08→17:35)
[2018-03-02 08:41] LABS: ANION GAP 9 MMOL/L (8-16); CALCIUM 8.5 mg/dL (8.5-10.1); CHLORIDE 107 mmol/L (98-107); CO2 23 mmol/L (21-32); CREATININE 3.4 mg/dL (0.55-1.3); GLUCOSE,RANDOM 79 mg/dL (74-106); SODIUM 140 mmol/L (136-145)
--- NOTE | 2018-03-02 08:54 | PN ---
Progress Note, Physician Chief Complaint: Now complaining of blurred vision in left eye since yesterday TELE: NSR. Lasix d/c'd due to rising BUN and creat History of Present Illness: Repeat echo Normal EF, no sig valve disease - Current Medication List Current Medications: Active Medications Acetaminophen (Tylenol -) 650 mg PO Q6H PRN PRN Reason: PAIN LEVEL 4 - 6 Last Admin: 02/28/18 03:35 Dose: 650 mg Amlodipine Besylate (Norvasc -) 10 mg PO DAILY [facility] Last Admin: 03/01/18 09:19 Dose: 10 mg Aspirin (Asa -) 81 mg PO DAILY [facility] Last Admin: 03/01/18 09:19 Dose: 81 mg Carvedilol (Coreg -) 12.5 mg PO BID [facility] Last Admin: 03/01/18 21:44 Dose: 12.5 mg Clopidogrel Bisulfate (Plavix -) 75 mg PO DAILY [facility] Last Admin: 03/01/18 09:19 Dose: 75 mg Docusate Sodium (Colace -) 100 mg PO TID PRN PRN Reason: CONSTIPATION Ferrous Sulfate (Feosol -) 325 mg PO TIDCM [facility] Last Admin: 03/01/18 16:56 Dose: 325 mg Folic Acid (Folic Acid -) 1 mg PO DAILY [facility] Last Admin: 03/01/18 09:19 Dose: 1 mg Furosemide (Lasix Injection -) 60 mg IVPUSH BID@0600,1400 [facility] Last Admin: 03/02/18 05:43 Dose: 60 mg Insulin Aspart (Novolog Vial Sliding Scale -) 1 vial SQ TIDAC [facility]; Protocol Last Admin: 03/02/18 06:08 Dose: Not Given Mirtazapine (Remeron -) 7.5 mg PO [facility] Last Admin: 03/01/18 21:45 Dose: 7.5 mg Rosuvastatin Calcium (Crestor -) 40 mg PO [facility] Last Admin: 03/01/18 21:46 Dose: 40 mg Tamsulosin HCl (Flomax -) 0.8 mg PO DAILY@0830 [facility] Last Admin: 03/01/18 09:19 Dose: 0.8 mg - Objective Vital Signs: Vital Signs Temperature 97.8 F 03/02/18 05:52 Pulse Rate 79 03/02/18 05:52 Respiratory Rate 20 03/02/18 05:52 Blood Pressure 134/64 03/02/18 05:52 O2 Sat by Pulse Oximetry (%) 94 L 03/01/18 20:55 Constitutional: Yes: No Distress, Calm Eyes: Yes: Conjunctiva Clear Cardiovascular: Yes: Regular Rate and Rhythm Respiratory: Yes: Other (decreased breath sounds bilaterally) Gastrointestinal: Yes: Soft Edema: Yes Edema: LLE: 2+, RLE: 2+ Neurological: Yes: Alert, Oriented Labs: CBC, BMP 02/28/18 07:20 03/02/18 05:30 Laboratory Tests 02/28/18 03/01/18 03/02/18 07:20 13:45 05:30 WBC 4.4 Hgb 7.4 L Plt Count 109 L Sodium 140 Potassium 5.0 BUN 102 H Creatinine 3.4 H 3.4 H Calcium 8.5 - ....Imaging EKG: Image Reviewed Assessment/Plan Assessment/Plan 1. Left carotid stenosis s/p left carotid endarterectomy several weeks ago 2. 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 3. LV diastolic dysfunction LVEF 50% 4. PAD status post bilateral lower extremity bypass 5. CKD with hyperkalemia 6. COPD 7. Chronic anemia Now with acute on chronic diastolic CHF- chronic volume overload and worsening renal fxn REC: 1. Holding Lasix. Renal to assess: ? HD?. Repeat echo normal LV fx and no sig valve disease. 2. Daily BMP to follow renal fx, K+ 3. Cont Carvediolol, hold ARB (advanced CKD). BP will not tolerate introduction of Nitrate/ Hydral at this time. 4. Tele to r/o occult arrhythmias precipitating CHF- thus far negative 5. Low Na+ diet 6. Daily weights 7. DVT prophylaxis
[2018-03-02 08:58] LABS: BLOOD UREA NITROGEN 108 mg/dL (7-18)
[2018-03-02] MEDS: ASPIRIN 81 MG CHEWABLE TABLETS PO SCH (11:08)
[2018-03-02] MEDS: TAMSULOSIN HCL 0.4 MG CAP PO SCH (11:08)
[2018-03-02] MEDS: amLODIPine BESYLATE 10 MG TABLET (FP) PO SCH (11:08)
[2018-03-02] MEDS: CLOPIDOGREL BISULFATE 75 MG TABLET (FP) PO SCH (11:08)
[2018-03-02] MEDS: FOLIC ACID 1 MG TABLET (FP) PO SCH (11:08)
[2018-03-02] MEDS: FERROUS SO4 325 MG TABLET (FP) PO SCH ×3 (11:08→17:02)
[2018-03-02] MEDS: CARVEDILOL 6.25 MG TABLET (FP) PO SCH ×2 (11:08→22:09)
--- NOTE | 2018-03-02 11:13 | PN ---
Progress Note (short form) - Note Progress Note: patient seen and examined today all follow-ups as noted Chart reviewed CT head negative Overall condition same chronic ill appearance Vital Signs Temp 98 F 03/02/18 10:00 Pulse 78 03/02/18 10:00 Resp 20 03/02/18 10:00 BP 130/62 03/02/18 10:00 Pulse Ox 94 L 03/02/18 09:00 Intake & Output 03/01/18 03/01/18 03/02/18 11:59 23:59 11:59 Intake Total 270 360 250 Output Total 550 1700 1000 Balance -280 -1340 -750 Weight 226 lb 225 lb Intake: IV 30 sl 30 Oral 240 360 250 Output: Urine 550 1700 1000 Void 550 1700 1000 Other: Voiding Method Urinal Urinal Urinal Bowel Movement No No Weight Measurement Method Standing Scale Standing Scale Active Medications Acetaminophen (Tylenol -) 650 mg PO Q6H PRN PRN Reason: PAIN LEVEL 4 - 6 Last Admin: 02/28/18 03:35 Dose: 650 mg Amlodipine Besylate (Norvasc -) 10 mg PO DAILY [facility] Last Admin: 03/02/18 11:08 Dose: 10 mg Aspirin (Asa -) 81 mg PO DAILY [facility] Last Admin: 03/02/18 11:08 Dose: 81 mg Carvedilol (Coreg -) 12.5 mg PO BID [facility] Last Admin: 03/02/18 11:08 Dose: 12.5 mg Clopidogrel Bisulfate (Plavix -) 75 mg PO DAILY [facility] Last Admin: 03/02/18 11:08 Dose: 75 mg Docusate Sodium (Colace -) 100 mg PO TID PRN PRN Reason: CONSTIPATION Ferrous Sulfate (Feosol -) 325 mg PO TIDCM [facility] Last Admin: 03/02/18 11:08 Dose: 325 mg Folic Acid (Folic Acid -) 1 mg PO DAILY [facility] Last Admin: 03/02/18 11:08 Dose: 1 mg Furosemide (Lasix Injection -) 60 mg IVPUSH BID@0600,1400 [facility] Last Admin: 03/02/18 05:43 Dose: 60 mg Insulin Aspart (Novolog Vial Sliding Scale -) 1 vial SQ TIDAC [facility]; Protocol Last Admin: 03/02/18 06:08 Dose: Not Given Mirtazapine (Remeron -) 7.5 mg PO HS [facility] Last Admin: 03/01/18 21:45 Dose: 7.5 mg Rosuvastatin Calcium (Crestor -) 40 mg PO [facility] Last Admin: 03/01/18 21:46 Dose: 40 mg Tamsulosin HCl (Flomax -) 0.8 mg PO DAILY@0830 [facility] Last Admin: 03/02/18 11:08 Dose: 0.8 mg CBC, BMP 02/28/18 07:20 03/02/18 05:30 Physical exam awake and comfortable Chronic ill appearance S1 S2 RRR Lungs decreased at bases Abd-soft,nontender edema ++ assessment and plan I discussed with cardiology as well as renal today Trial of Lasix drip Monitor lites CT head negative for acute CVA If no improvement--- dialysis need to be considered Monitor on telemetry We will follow Problem List - Problems (1) Anemia Code(s): D64.9 - ANEMIA, UNSPECIFIED (2) VANDA (acute kidney injury) Code(s): N17.9 - ACUTE KIDNEY FAILURE, UNSPECIFIED (3) CHF (congestive heart failure) Code(s): I50.9 - HEART FAILURE, UNSPECIFIED Qualifiers: Heart failure type: unspecified Heart failure chronicity: acute on chronic Qualified Code(s): I50.9 - Heart failure, unspecified (4) ASHD (arteriosclerotic heart disease) Code(s): I25.10 - ATHSCL HEART DISEASE OF [place] CORONARY ARTERY W/O ANG PCTRS (5) Acute on chronic diastolic CHF (congestive heart failure) Code(s): I50.33 - ACUTE ON CHRONIC DIASTOLIC (CONGESTIVE) HEART FAILURE (6) Diabetes Code(s): E11.9 - TYPE 2 DIABETES MELLITUS WITHOUT COMPLICATIONS Qualifiers: Diabetes mellitus type: type 2 Diabetes mellitus complication detail: with nephropathy
[2018-03-02] MEDS ORDERED: EPOETIN ALFA 2,000 UNIT/1 ML VIAL SQ ONE (11:42)
[2018-03-02] MEDS ORDERED: IRON SUCROSE INJECTION 200 MG in SODIUM CHLORIDE 90 ML IVPB ONE (11:43)
[2018-03-02] MEDS ORDERED: FUROSEMIDE INJECTION 100 MG in SODIUM CHLORIDE 90 ML IVPB SCH ×3 (11:45→22:30)
--- NOTE | 2018-03-02 11:48 | PN ---
Progress Note (short form) - Note Progress Note: Renal follow up for VANDA Pt seen and examined at the bedside has difficutly seeing from left eye no cp, abd pain, N/V/D tolerating diet has mild sob and leg edema persists Vital Signs Temperature 98 F 03/02/18 10:00 Pulse Rate 78 03/02/18 10:00 Respiratory Rate 20 03/02/18 10:00 Blood Pressure 130/62 03/02/18 10:00 O2 Sat by Pulse Oximetry (%) 94 L 03/02/18 09:00 Intake & Output 02/27/18 02/28/18 03/01/18 03/02/18 23:59 23:59 23:59 23:59 Intake Total 1450 750 630 250 Output Total 1800 2300 2250 1000 Balance -350 -1550 -1620 -750 Weight 102.149 kg 102.512 kg 102.512 kg 102.058 kg NAD RRR, No M/R Dec BS ++ edema in LE CBC, BMP 02/28/18 07:20 03/02/18 05:30 Current Medications Acetaminophen (Tylenol -) 650 mg PO Q6H PRN PRN Reason: PAIN LEVEL 4 - 6 Last Admin: 02/28/18 03:35 Dose: 650 mg Amlodipine Besylate (Norvasc -) 10 mg PO DAILY [facility] Last Admin: 03/02/18 11:08 Dose: 10 mg Aspirin (Asa -) 81 mg PO DAILY [facility] Last Admin: 03/02/18 11:08 Dose: 81 mg Carvedilol (Coreg -) 12.5 mg PO BID [facility] Last Admin: 03/02/18 11:08 Dose: 12.5 mg Clopidogrel Bisulfate (Plavix -) 75 mg PO DAILY [facility] Last Admin: 03/02/18 11:08 Dose: 75 mg Docusate Sodium (Colace -) 100 mg PO TID PRN PRN Reason: CONSTIPATION Epoetin Wm (Epogen -) 20,000 unit SQ ONCE ONE Stop: 03/02/18 11:43 Ferrous Sulfate (Feosol -) 325 mg PO TIDCM [facility] Last Admin: 03/02/18 11:08 Dose: 325 mg Folic Acid (Folic Acid -) 1 mg PO DAILY [facility] Last Admin: 03/02/18 11:08 Dose: 1 mg Furosemide 100 mg/ Sodium (Chloride) 100 mls @ 10 mls/hr IVPB Q10H [facility]; Protocol Iron Sucrose 200 mg/ Sodium (Chloride) 100 mls @ 100 mls/hr IVPB ONCE ONE Stop: 03/02/18 12:42 Insulin Aspart (Novolog Vial Sliding Scale -) 1 vial SQ TIDAC [facility]; Protocol Last Admin: 03/02/18 06:08 Dose: Not Given Mirtazapine (Remeron -) 7.5 mg PO [facility] Last Admin: 03/01/18 21:45 Dose: 7.5 mg Rosuvastatin Calcium (Crestor -) 40 mg PO HS [facility] Last Admin: 03/01/18 21:46 Dose: 40 mg Tamsulosin HCl (Flomax -) 0.8 mg PO DAILY@0830 [facility] Last Admin: 03/02/18 11:08 Dose: 0.8 mg 57 year old gentleman with hx of CKD stage 3b, Hypertension, CAD, CHF, CVA, COPD, DM who presented from [place] with SOB and admitted with CHF exacerbation with VANDA and hyperkalemia. #VANDA r/o cardio-renal syndrome #Nephrotic range proteinuria (TAMI and SPEP negative in 2017) #Hyperkalemia in setting of MICHAEL/CHF and VANDA #CHF exacerbation (preserved LVEF) #Anemia (iron saturation 25%) #BPH Renal function unchanged and pt remains volume overloaded appears that pt is experiencing diuretic failure as pt has not lost any weight after discussion with cardiology and PMD will intensify diuretic Tx with goal of weight loss and clinical improvment to start Lasix gtt today and will give metolaxone 5mg if pt fails diuretics will need renal replacement therapy Pt noted to have peripheral eosinphilia (has had in the past as well), no obvious cause apart from diuretics (lasix can cause AIN), will check Urine eosinophils and WBC's but will continue Lasix at this time given volume overload. Trend weights and urine output Will give additional IV iron today Check CBC in AM, likely will require more TY as well Check TAMI, RPR, Hepatitis profile, HIV screen Trend renal function and electrolytes Prakash Garcia DO
[2018-03-02 14:10] LABS: BASO % 0.7 % (0-2.0); EOS % 4.2 % (0-4.5); HEMATOCRIT 24.4 % (35.4-49); HEMOGLOBIN 7.9 GM/dL (11.7-16.9); LYMPH % 11.3 % (8-40); MCH 30.6 pg (25.7-33.7); MCHC 32.4 g/dl (32.0-35.9); MEAN CELL VOLUME 94.5 fl (80-96); NEUT % 72.8 % (42.8-82.8); PLATELET COUNT 140 K/MM3 (134-434); RBC 2.58 M/mm3 (4.00-5.60); WHITE BLOOD COUNT 5.5 K/mm3 (4.0-10.0)
[2018-03-02 14:16] LABS: URINE APPEARANCE CLEAR; URINE BILIRUBIN NEGATIVE (<2.0 mg/dL); URINE COLOR STRAW; URINE GLUCOSE (UA) NEGATIVE (NEGATIVE); URINE KETONE NEGATIVE (NEGATIVE); URINE LEUK ESTERASE NEGATIVE (NEGATIVE); URINE NITRITE NEGATIVE (NEGATIVE); URINE PROTEIN 2+ (NEGATIVE); URINE UROBILINOGEN NEGATIVE mg/dL (0.2-1.0)
[2018-03-02 14:34] LABS: EPI CELLS RARE /HPF (FEW)
[2018-03-02] MEDS ORDERED: METOLAZONE 5 MG TABLET PO ONE (16:17)
[2018-03-02] MEDS: ROSUVASTATIN CA 20 MG TABLET (FP) PO SCH (22:09)
[2018-03-02] MEDS: MIRTAZAPINE 15 MG TABLET (FP) PO SCH (22:09)
[2018-03-03] MEDS ORDERED: FUROSEMIDE INJECTION 100 MG in SODIUM CHLORIDE 90 ML IVPB SCH ×2 (00:09→00:30)
[2018-03-03 06:11] LABS: HEP.C VIRUS AB <0.1 s/co ratio (0.0-0.9)
[2018-03-03] MEDS: INSULIN SLIDING SCALE (NOVOLOG) 1 VIAL SQ SCH ×3 (06:48→16:34)
[2018-03-03 06:52] LABS: BASO % 0.6 % (0-2.0); EOS % 4.8 % (0-4.5); HEMATOCRIT 23.7 % (35.4-49); HEMOGLOBIN 8.1 GM/dL (11.7-16.9); LYMPH % 10.6 % (8-40); MCH 32.2 pg (25.7-33.7); MCHC 34.2 g/dl (32.0-35.9); MEAN CELL VOLUME 94.2 fl (80-96); MEAN PLT VOLUME 9.2 fl (7.5-11.1); PLATELET COUNT 127 K/MM3 (134-434); RBC 2.51 M/mm3 (4.00-5.60); RDW 16.7 % (11.9-15.9); WHITE BLOOD COUNT 5.1 K/mm3 (4.0-10.0)
[2018-03-03 07:23] LABS: ALBUMIN 3.1 g/dl (3.4-5.0); ALK PHOS 90 U/L (45-117); ANION GAP 7 MMOL/L (8-16); BILIRUBIN,TOTAL 0.4 mg/dL (0.2-1); CALCIUM 8.3 mg/dL (8.5-10.1); CHLORIDE 106 mmol/L (98-107); CO2 27 mmol/L (21-32); CREATININE 3.4 mg/dL (0.55-1.3); GLUCOSE,RANDOM 116 mg/dL (74-106); MAGNESIUM 2.7 mg/dL (1.8-2.4); PHOSPHOROUS 5.9 mg/dL (2.5-4.9); POTASSIUM 4.8 mmol/L (3.5-5.1); SGOT/AST 17 U/L (15-37); SGPT/ALT 41 U/L (13-61); SODIUM 140 mmol/L (136-145); TOT PROT 6.2 g/dl (6.4-8.2)
[2018-03-03 07:30] LABS: BLOOD UREA NITROGEN 110 mg/dL (7-18)
--- NOTE | 2018-03-03 08:50 | PN ---
Progress Note (short form) - Note Progress Note: Renal follow up for VANDA Pt seen and examined at the bedside making a lot of urine weights improving no sob, cp, abd pain weight was 215lbs this am Vital Signs Temperature 98.0 F 03/03/18 06:00 Pulse Rate 72 03/03/18 06:00 Respiratory Rate 20 03/03/18 06:00 Blood Pressure 101/43 L 03/03/18 06:00 O2 Sat by Pulse Oximetry (%) 96 03/02/18 21:00 Intake & Output 02/28/18 03/01/18 03/02/18 03/03/18 23:59 23:59 23:59 23:59 Intake Total 750 630 880 120 Output Total 2300 2250 2500 2000 Balance -1550 -1620 -1620 -1880 Weight 102.512 kg 102.512 kg 102.058 kg NAD + edema in LE but improving CBC, BMP 03/03/18 05:30 03/03/18 05:30 Current Medications Acetaminophen (Tylenol -) 650 mg PO Q6H PRN PRN Reason: PAIN LEVEL 4 - 6 Last Admin: 02/28/18 03:35 Dose: 650 mg Amlodipine Besylate (Norvasc -) 10 mg PO DAILY [facility] Last Admin: 03/02/18 11:08 Dose: 10 mg Aspirin (Asa -) 81 mg PO DAILY [facility] Last Admin: 03/02/18 11:08 Dose: 81 mg Carvedilol (Coreg -) 12.5 mg PO BID [facility] Last Admin: 03/02/18 22:09 Dose: 12.5 mg Clopidogrel Bisulfate (Plavix -) 75 mg PO DAILY [facility] Last Admin: 03/02/18 11:08 Dose: 75 mg Docusate Sodium (Colace -) 100 mg PO TID PRN PRN Reason: CONSTIPATION Ferrous Sulfate (Feosol -) 325 mg PO TIDCM [facility] Last Admin: 03/02/18 17:02 Dose: 325 mg Folic Acid (Folic Acid -) 1 mg PO DAILY [facility] Last Admin: 03/02/18 11:08 Dose: 1 mg Furosemide 100 mg/ Sodium (Chloride) 100 mls @ 10 mls/hr IVPB Q10H [facility]; Protocol Insulin Aspart (Novolog Vial Sliding Scale -) 1 vial SQ TIDAC [facility]; Protocol Last Admin: 11/03/18 06:48 Dose: Not Given Mirtazapine (Remeron -) 7.5 mg PO [facility] Last Admin: 03/02/18 22:09 Dose: 7.5 mg Rosuvastatin Calcium (Crestor -) 40 mg PO [facility] Last Admin: 03/02/18 22:09 Dose: 40 mg Tamsulosin HCl (Flomax -) 0.8 mg PO DAILY@0830 [facility] Last Admin: 03/02/18 11:08 Dose: 0.8 mg 57 year old gentleman with hx of CKD stage 3b, Hypertension, CAD, CHF, CVA, COPD, DM who presented from [place] with SOB and admitted with CHF exacerbation with VANDA and hyperkalemia. 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
[2018-03-03] MEDS: FERROUS SO4 325 MG TABLET (FP) PO SCH ×3 (09:00→16:34)
[2018-03-03] MEDS: ASPIRIN 81 MG CHEWABLE TABLETS PO SCH (09:25)
[2018-03-03] MEDS: amLODIPine BESYLATE 10 MG TABLET (FP) PO SCH (09:25)
[2018-03-03] MEDS: CARVEDILOL 6.25 MG TABLET (FP) PO SCH ×2 (09:25→21:22)
[2018-03-03] MEDS: CLOPIDOGREL BISULFATE 75 MG TABLET (FP) PO SCH (09:25)
[2018-03-03] MEDS: FOLIC ACID 1 MG TABLET (FP) PO SCH (09:26)
[2018-03-03] MEDS: TAMSULOSIN HCL 0.4 MG CAP PO SCH (09:26)
--- NOTE | 2018-03-03 10:29 | PN ---
Progress Note, Physician Chief Complaint: Excellent urine output History of Present Illness: stable renal fxn TELE: NSR - Current Medication List Current Medications: Active Medications Acetaminophen (Tylenol -) 650 mg PO Q6H PRN PRN Reason: PAIN LEVEL 4 - 6 Last Admin: 02/28/18 03:35 Dose: 650 mg Amlodipine Besylate (Norvasc -) 10 mg PO DAILY [facility] Last Admin: 03/03/18 09:25 Dose: 10 mg Aspirin (Asa -) 81 mg PO DAILY [facility] Last Admin: 03/03/18 09:25 Dose: 81 mg Carvedilol (Coreg -) 12.5 mg PO BID [facility] Last Admin: 03/03/18 09:25 Dose: 12.5 mg Clopidogrel Bisulfate (Plavix -) 75 mg PO DAILY [facility] Last Admin: 03/03/18 09:25 Dose: 75 mg Docusate Sodium (Colace -) 100 mg PO TID PRN PRN Reason: CONSTIPATION Ferrous Sulfate (Feosol -) 325 mg PO TIDCM [facility] Last Admin: 03/03/18 09:00 Dose: 325 mg Folic Acid (Folic Acid -) 1 mg PO DAILY [facility] Last Admin: 03/03/18 09:26 Dose: 1 mg Furosemide 100 mg/ Sodium (Chloride) 100 mls @ 10 mls/hr IVPB Q10H [facility]; Protocol Insulin Aspart (Novolog Vial Sliding Scale -) 1 vial SQ TIDAC [facility]; Protocol Last Admin: 03/03/18 06:48 Dose: Not Given Metolazone (Zaroxolyn -) 5 mg PO ONCE ONE Stop: 03/03/18 13:31 Mirtazapine (Remeron -) 7.5 mg PO [facility] Last Admin: 03/02/18 22:09 Dose: 7.5 mg Rosuvastatin Calcium (Crestor -) 40 mg PO [facility] Last Admin: 03/02/18 22:09 Dose: 40 mg Tamsulosin HCl (Flomax -) 0.8 mg PO DAILY@0830 [facility] Last Admin: 03/03/18 09:26 Dose: 0.8 mg - Objective Vital Signs: Vital Signs Temperature 98.0 F 03/03/18 06:00 Pulse Rate 72 03/03/18 06:00 Respiratory Rate 20 03/03/18 06:00 Blood Pressure 101/43 L 03/03/18 06:00 O2 Sat by Pulse Oximetry (%) 96 03/02/18 21:00 Constitutional: Yes: Calm Cardiovascular: Yes: Regular Rate and Rhythm Respiratory: Yes: CTA Bilaterally Gastrointestinal: Yes: Soft Edema: Yes Edema: LLE: 3+, RLE: 3+ Neurological: Yes: Alert ...Motor Strength: WNL Labs: CBC, BMP 03/03/18 05:30 03/03/18 05:30 Laboratory Tests 03/03/18 03/03/18 05:30 05:30 WBC 5.1 Hgb 8.1 L Plt Count 127 L Sodium 140 Potassium 4.8 BUN 110 H* Creatinine 3.4 H - ....Imaging EKG: Image Reviewed Assessment/Plan Assessment/Plan 1. Left carotid stenosis s/p left carotid endarterectomy several weeks ago 2. Coronary artery disease status post GHAZAL to distal LCx 08/26/2017, pRCA 100% [employer]; ASA and Plavix continued. 3. LV diastolic dysfunction LVEF 50%: repeat echo this admission normal LV fx, no sig valve disease 4. PAD status post bilateral lower extremity bypass 5. CKD with hyperkalemia 6. COPD 7. Chronic anemia Now with acute on chronic diastolic CHF- chronic volume overload and worsening renal fxn: Trial of Lasix gtts after d/w renal. Considered for renal replacement therapy but did not yet meet full indication. Decision made to be more aggressive with diuretics over weekend. REC: 1. Continue Lasix gtts, daily BMP to monitor renal fxn 2. Cont Carvediolol, hold ARB (advanced CKD). BP will not tolerate introduction of Nitrate/ Hydral at this time. 3. Low Na+ diet 4. Daily weights- not recorded yet today. 5. DVT prophylaxis
[2018-03-03] MEDS ORDERED: METOLAZONE 5 MG TABLET PO ONE (13:30)
[2018-03-03] MEDS: FUROSEMIDE INJECTION 100 MG in SODIUM CHLORIDE 90 ML IVPB SCH (16:34)
--- NOTE | 2018-03-03 20:08 | PN ---
Progress Note (short form) - Note Progress Note: SOB - less fatigued unsteady gait no chest pain has jerky movements Vital Signs - 24 hr 03/02/18 03/03/18 03/03/18 21:00 01:00 06:00 Temperature 97.2 F L 97.5 F L 98.0 F Pulse Rate 68 73 72 Respiratory 20 20 20 Rate Blood Pressure 115/64 139/68 101/43 L O2 Sat by Pulse 96 Oximetry (%) 03/03/18 03/03/18 03/03/18 09:00 10:00 14:00 Temperature 97.1 F L 96.8 F L Pulse Rate 70 63 Respiratory 22 H 22 H Rate Blood Pressure 122/71 106/56 L O2 Sat by Pulse 96 Oximetry (%) Current Medications Generic Name Dose Route Start Last Admin Trade Name Freq PRN Reason Stop Dose Admin Acetaminophen 650 mg 02/20/18 09:54 02/28/18 03:35 Tylenol - PO 650 mg Q6H PRN Administration PAIN LEVEL 4 - 6 Amlodipine Besylate 10 mg 02/20/18 10:00 03/03/18 09:25 Norvasc - PO 10 mg DAILY [facility] Administration Aspirin 81 mg 02/20/18 10:00 03/03/18 09:25 Asa - PO 81 mg DAILY [facility] Administration Carvedilol 12.5 mg 02/20/18 10:00 03/03/18 09:25 Coreg - PO 12.5 mg BID [facility] Administration Clopidogrel Bisulfate 75 mg 02/20/18 10:00 03/03/18 09:25 Plavix - PO 75 mg DAILY [facility] Administration Docusate Sodium 100 mg 02/20/18 09:54 Colace - PO TID PRN CONSTIPATION Ferrous Sulfate 325 mg 02/20/18 12:00 03/03/18 16:34 Feosol - PO 325 mg TIDCM [facility] Administration Folic Acid 1 mg 02/20/18 10:00 03/03/18 09:26 Folic Acid - PO 1 mg DAILY [facility] Administration Furosemide 100 mg/ Sodium 100 mls @ 10 mls/hr 03/03/18 16:45 03/03/18 16:34 Chloride IVPB 10 mls/hr Q10H [facility] Administration Protocol Insulin Aspart 1 vial 02/20/18 11:00 03/03/18 16:34 Novolog Vial Sliding Scale - SQ 2 units TIDAC [facility] Administration Protocol Mirtazapine 7.5 mg 02/20/18 22:00 03/02/18 22:09 Remeron - PO 7.5 mg HS [facility] Administration Rosuvastatin Calcium 40 mg 02/20/18 22:00 03/02/18 22:09 Crestor - PO 40 mg HS [facility] Administration Tamsulosin HCl 0.8 mg 02/21/18 08:30 03/03/18 09:26 Flomax - PO 0.8 mg DAILY@0830 [facility] Administration Laboratory Results - last 24 hr 03/02/18 03/03/18 03/03/18 13:18 05:30 05:30 WBC 5.1 RBC 2.51 L Hgb 8.1 L Hct 23.7 L MCV 94.2 MCH 32.2 MCHC 34.2 RDW 16.7 H Plt Count 127 L MPV 9.2 Absolute Neuts (auto) 3.6 Neutrophils % 72.0 Lymphocytes % 10.6 Monocytes % 12.0 H Eosinophils % 4.8 H Basophils % 0.6 Nucleated RBC % 0 Sodium 140 Potassium 4.8 Chloride 106 Carbon Dioxide 27 Anion Gap 7 L BUN 110 H* Creatinine 3.4 H Creat Clearance w eGFR 18.63 POC Glucometer Random Glucose 116 H Calcium 8.3 L Phosphorus 5.9 H Magnesium 2.7 H Total Bilirubin 0.4 AST 17 ALT 41 Alkaline Phosphatase 90 Total Protein 6.2 L Albumin 3.1 L Hepatitis A IgM Ab Negative Hep Bs Antigen Negative Hep B Core IgM Ab Negative Hepatitis C Antibody <0.1 HIV 1&2 Ag/Ab, 4th Gen Non reactive 03/03/18 03/03/18 03/03/18 06:46 11:48 16:25 WBC RBC Hgb Hct MCV MCH MCHC RDW Plt Count MPV Absolute Neuts (auto) Neutrophils % Lymphocytes % Monocytes % Eosinophils % Basophils % Nucleated RBC % Sodium Potassium Chloride Carbon Dioxide Anion Gap BUN Creatinine Creat Clearance w eGFR POC Glucometer 146 176 161 Random Glucose Calcium Phosphorus Magnesium Total Bilirubin AST ALT Alkaline Phosphatase Total Protein Albumin Hepatitis A IgM Ab Hep Bs Antigen Hep B Core IgM Ab Hepatitis C Antibody HIV 1&2 Ag/Ab, 4th Gen S1 S2 RRR Lungs decreased Abd-soft,Nt edema ++ PLAN Lasix gtt-- -- worsening BUN, creatinine remains the same he is still volume overloaded may need to consider dialysis if no improvement weight loss noted spoke with Cardiology and Renal Problem List - Problems (1) VANDA (acute kidney injury) Code(s): N17.9 - ACUTE KIDNEY FAILURE, UNSPECIFIED (2) CHF (congestive heart failure) Code(s): I50.9 - HEART FAILURE, UNSPECIFIED Qualifiers: Heart failure type: unspecified Heart failure chronicity: acute on chronic Qualified Code(s): I50.9 - Heart failure, unspecified (3) ASHD (arteriosclerotic heart disease) Code(s): I25.10 - ATHSCL HEART DISEASE OF [place] CORONARY ARTERY W/O ANG PCTRS (4) Acute on chronic diastolic CHF (congestive heart failure) Code(s): I50.33 - ACUTE ON CHRONIC DIASTOLIC (CONGESTIVE) HEART FAILURE
[2018-03-03] MEDS: ROSUVASTATIN CA 20 MG TABLET (FP) PO SCH (21:22)
[2018-03-03] MEDS: MIRTAZAPINE 15 MG TABLET (FP) PO SCH (21:22)
[2018-03-04] MEDS: FUROSEMIDE INJECTION 100 MG in SODIUM CHLORIDE 90 ML IVPB SCH ×3 (02:30→22:36)
[2018-03-04] MEDS: INSULIN SLIDING SCALE (NOVOLOG) 1 VIAL SQ SCH ×3 (06:17→16:55)
[2018-03-04 07:31] LABS: BASO % 0.6 % (0-2.0); EOS % 5.6 % (0-4.5); HEMOGLOBIN 8.1 GM/dL (11.7-16.9); LYMPH % 11.9 % (8-40); MCHC 35.4 g/dl (32.0-35.9); MEAN CELL VOLUME 93.2 fl (80-96); MEAN PLT VOLUME 9.1 fl (7.5-11.1); NEUT % 69.9 % (42.8-82.8); PLATELET COUNT 126 K/MM3 (134-434); RBC 2.46 M/mm3 (4.00-5.60); RDW 16.8 % (11.9-15.9); WHITE BLOOD COUNT 4.6 K/mm3 (4.0-10.0)
[2018-03-04] MEDS: FERROUS SO4 325 MG TABLET (FP) PO SCH ×3 (08:00→16:54)
[2018-03-04] MEDS: TAMSULOSIN HCL 0.4 MG CAP PO SCH (08:00)
[2018-03-04 08:03] LABS: ANION GAP 12 MMOL/L (8-16); CALCIUM 8.1 mg/dL (8.5-10.1); CHLORIDE 104 mmol/L (98-107); CO2 26 mmol/L (21-32); CREATININE 3.5 mg/dL (0.55-1.3); GLUCOSE,RANDOM 117 mg/dL (74-106); MAGNESIUM 2.5 mg/dL (1.8-2.4); PHOSPHOROUS 5.7 mg/dL (2.5-4.9); POTASSIUM 4.7 mmol/L (3.5-5.1); SODIUM 142 mmol/L (136-145)
--- NOTE | 2018-03-04 08:10 | PN ---
Progress Note (short form) - Note Progress Note: Renal follow up for VANDA Pt seen and examined at the bedside complains of back and hip pain sob is improved making a lot of urine legs also feel better no N/V/D, confusion or lethargy Vital Signs Temperature 97.0 F L 03/04/18 05:00 Pulse Rate 60 03/04/18 05:00 Respiratory Rate 18 03/04/18 05:00 Blood Pressure 112/61 03/04/18 05:00 O2 Sat by Pulse Oximetry (%) 92 L 03/03/18 21:00 Intake & Output 03/01/18 03/02/18 03/03/18 03/04/18 23:59 23:59 23:59 22:59 Intake Total 630 880 950 240 Output Total 2250 2500 4240 1500 Balance -1620 -1620 -3290 -1260 Weight 102.512 kg 102.058 kg 97.664 kg 95.799 kg NAD neck supple Dec BS, no rales ++ edema in LE CBC, BMP 03/04/18 05:30 03/04/18 05:30 Laboratory Tests 03/03/18 03/04/18 05:30 05:30 Creat Clearance w eGFR 18.02 Calcium 8.3 L 8.1 L Phosphorus 5.9 H 5.7 H Magnesium 2.7 H 2.5 H Albumin 3.1 L Current Medications Acetaminophen (Tylenol -) 650 mg PO Q6H PRN PRN Reason: PAIN LEVEL 4 - 6 Last Admin: 02/28/18 03:35 Dose: 650 mg Amlodipine Besylate (Norvasc -) 10 mg PO DAILY [facility] Last Admin: 03/03/18 09:25 Dose: 10 mg Aspirin (Asa -) 81 mg PO DAILY [facility] Last Admin: 03/03/18 09:25 Dose: 81 mg Carvedilol (Coreg -) 12.5 mg PO BID [facility] Last Admin: 03/03/18 21:22 Dose: 12.5 mg Clopidogrel Bisulfate (Plavix -) 75 mg PO DAILY [facility] Last Admin: 03/03/18 09:25 Dose: 75 mg Docusate Sodium (Colace -) 100 mg PO TID PRN PRN Reason: CONSTIPATION Ferrous Sulfate (Feosol -) 325 mg PO TIDCM [facility] Last Admin: 03/04/18 08:00 Dose: 325 mg Folic Acid (Folic Acid -) 1 mg PO DAILY [facility] Last Admin: 03/03/18 09:26 Dose: 1 mg Furosemide 100 mg/ Sodium (Chloride) 100 mls @ 10 mls/hr IVPB Q10H [facility]; Protocol Last Admin: 03/04/18 02:30 Dose: 10 mls/hr Insulin Aspart (Novolog Vial Sliding Scale -) 1 vial SQ TIDAC [facility]; Protocol Last Admin: 03/04/18 06:17 Dose: Not Given Mirtazapine (Remeron -) 7.5 mg PO HS [facility] Last Admin: 03/03/18 21:22 Dose: 7.5 mg Rosuvastatin Calcium (Crestor -) 40 mg PO HS [facility] Last Admin: 03/03/18 21:22 Dose: 40 mg Tamsulosin HCl (Flomax -) 0.8 mg PO DAILY@0830 [facility] Last Admin: 03/04/18 08:00 Dose: 0.8 mg 57 year old gentleman with hx of CKD stage 3b, Hypertension, CAD, CHF, CVA, COPD, DM who presented from [place] with SOB and admitted with CHF exacerbation with VANDA and hyperkalemia. 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
[2018-03-04 08:18] LABS: BLOOD UREA NITROGEN 109 mg/dL (7-18)
--- NOTE | 2018-03-04 10:00 | PN ---
Progress Note, Physician Chief Complaint: Significant weight loss and good urine output Creat stable - Current Medication List Current Medications: Active Medications Acetaminophen (Tylenol -) 650 mg PO Q6H PRN PRN Reason: PAIN LEVEL 4 - 6 Last Admin: 02/28/18 03:35 Dose: 650 mg Amlodipine Besylate (Norvasc -) 10 mg PO DAILY [facility] Last Admin: 03/03/18 09:25 Dose: 10 mg Aspirin (Asa -) 81 mg PO DAILY [facility] Last Admin: 03/03/18 09:25 Dose: 81 mg Calcium Acetate (Phoslo -) 667 mg PO TIDCM [facility] Carvedilol (Coreg -) 12.5 mg PO BID [facility] Last Admin: 03/03/18 21:22 Dose: 12.5 mg Clopidogrel Bisulfate (Plavix -) 75 mg PO DAILY [facility] Last Admin: 03/03/18 09:25 Dose: 75 mg Docusate Sodium (Colace -) 100 mg PO TID PRN PRN Reason: CONSTIPATION Ferrous Sulfate (Feosol -) 325 mg PO TIDCM [facility] Last Admin: 03/04/18 08:00 Dose: 325 mg Folic Acid (Folic Acid -) 1 mg PO DAILY [facility] Last Admin: 03/03/18 09:26 Dose: 1 mg Furosemide 100 mg/ Sodium (Chloride) 100 mls @ 10 mls/hr IVPB Q10H [facility]; Protocol Last Admin: 03/04/18 02:30 Dose: 10 mls/hr Insulin Aspart (Novolog Vial Sliding Scale -) [facility] Protocol Last Admin: 03/04/18 06:17 Dose: Not Given Mirtazapine (Remeron -) 7.5 mg PO [facility] Last Admin: 03/03/18 21:22 Dose: 7.5 mg Rosuvastatin Calcium (Crestor -) 40 mg PO [facility] Last Admin: 03/03/18 21:22 Dose: 40 mg Tamsulosin HCl (Flomax -) 0.8 mg PO DAILY@0830 [facility] Last Admin: 03/04/18 08:00 Dose: 0.8 mg - Objective Vital Signs: Vital Signs Temperature 97.0 F L 03/04/18 05:00 Pulse Rate 60 03/04/18 05:00 Respiratory Rate 18 03/04/18 05:00 Blood Pressure 112/61 03/04/18 05:00 O2 Sat by Pulse Oximetry (%) 92 L 03/03/18 21:00 Constitutional: Yes: No Distress, Calm Eyes: Yes: Conjunctiva Clear, EOM Intact Cardiovascular: Yes: Regular Rate and Rhythm Respiratory: Yes: CTA Bilaterally Gastrointestinal: Yes: Soft Edema: Yes Edema: LLE: 2+ (improving), RLE: 2+ (improving.) Neurological: Yes: Alert, Oriented Labs: CBC, BMP 03/04/18 05:30 03/04/18 05:30 - ....Imaging EKG: Image Reviewed (TELE: NSR) Assessment/Plan Assessment/Plan 1. Left carotid stenosis s/p left carotid endarterectomy several weeks ago 2. 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 3. LV diastolic dysfunction LVEF 50%: repeat echo this admission normal LV fx, no sig valve disease 4. PAD status post bilateral lower extremity bypass 5. CKD with hyperkalemia 6. COPD 7. Chronic anemia Now with acute on chronic diastolic CHF- chronic volume overload and worsening renal fxn: Trial of Lasix gtts after d/w renal. Considered for renal replacement therapy but did not yet meet full indication. Decision made to be more aggressive with diuretics over weekend. REC: 1. Continue Lasix gtts, daily BMP to monitor renal fxn- clinically responding with stable renal fxn 2. Daily weights
[2018-03-04] MEDS: CLOPIDOGREL BISULFATE 75 MG TABLET (FP) PO SCH (10:14)
[2018-03-04] MEDS: amLODIPine BESYLATE 10 MG TABLET (FP) PO SCH (10:14)
[2018-03-04] MEDS: CARVEDILOL 6.25 MG TABLET (FP) PO SCH ×2 (10:14→22:36)
[2018-03-04] MEDS: FOLIC ACID 1 MG TABLET (FP) PO SCH (10:14)
[2018-03-04] MEDS: ASPIRIN 81 MG CHEWABLE TABLETS PO SCH (10:14)
[2018-03-04] MEDS: CALCIUM ACETATE 667 MG CAPSULE (FP) PO SCH ×2 (13:58→16:54)
[2018-03-04] MEDS: ACETAMINOPHEN 325 MG TABLET (FP) PO PRN (13:58)
[2018-03-04] MEDS ORDERED: PT OWN MED DRAWER 7, Y5N ONE (15:38)
--- NOTE | 2018-03-04 19:24 | PN ---
Progress Note (short form) - Note Progress Note: SOB - less weight loss noted pt feels better Vital Signs - 24 hr 03/03/18 03/04/18 03/04/18 21:00 01:00 EST 05:00 Temperature 97 F L 97.4 F L 97.0 F L Pulse Rate 62 65 60 Respiratory 18 20 18 Rate Blood Pressure 109/60 113/63 112/61 O2 Sat by Pulse 92 L Oximetry (%) 03/04/18 03/04/18 03/04/18 09:00 10:00 14:05 Temperature 97.0 F L 97.6 F Pulse Rate 64 63 Respiratory 20 20 Rate Blood Pressure 109/53 L 114/61 O2 Sat by Pulse 94 L Oximetry (%) Current Medications Generic Name Dose Route Start Last Admin Trade Name Freq PRN Reason Stop Dose Admin Acetaminophen 650 mg 02/20/18 09:54 03/04/18 13:58 Tylenol - PO 650 mg Q6H PRN Administration PAIN LEVEL 4 - 6 Amlodipine Besylate 10 mg 02/20/18 10:00 03/04/18 10:14 Norvasc - PO 10 mg DAILY TONYA Administration Aspirin 81 mg 02/20/18 10:00 03/04/18 10:14 Asa - PO 81 mg DAILY TONYA Administration Calcium Acetate 667 mg 03/04/18 12:00 03/04/18 16:54 Phoslo - PO 667 mg TIDCM TONYA Administration Carvedilol 12.5 mg 02/20/18 10:00 03/04/18 10:14 Coreg - PO 12.5 mg BID TONYA Administration Clopidogrel Bisulfate 75 mg 02/20/18 10:00 03/04/18 10:14 Plavix - PO 75 mg DAILY TONYA Administration Docusate Sodium 100 mg 02/20/18 09:54 Colace - PO TID PRN CONSTIPATION Ferrous Sulfate 325 mg 02/20/18 12:00 03/04/18 16:54 Feosol - PO 325 mg TIDCM TONYA Administration Folic Acid 1 mg 02/20/18 10:00 03/04/18 10:14 Folic Acid - PO 1 mg DAILY TONYA Administration Furosemide 100 mg/ Sodium 100 mls @ 10 mls/hr 03/03/18 16:45 03/04/18 17:03 Chloride IVPB 10 mls/hr Q10H TONYA Administration Protocol Insulin Aspart 1 vial 02/20/18 11:00 03/04/18 16:55 Novolog Vial Sliding Scale - SQ 2 units TIDAC [facility] Administration Protocol Mirtazapine 7.5 mg 02/20/18 22:00 03/03/18 21:22 Remeron - PO 7.5 mg HS [facility] Administration Rosuvastatin Calcium 40 mg 02/20/18 22:00 03/03/18 21:22 Crestor - PO 40 mg HS [facility] Administration Tamsulosin HCl 0.8 mg 02/21/18 08:30 03/04/18 08:00 Flomax - PO 0.8 mg DAILY@0830 [facility] Administration Laboratory Results - last 24 hr 03/02/18 03/02/18 03/04/18 13:18 14:15 05:30 WBC 4.6 RBC 2.46 L Hgb 8.1 L Hct 23.0 L MCV 93.2 MCH 33.0 MCHC 35.4 RDW 16.8 H Plt Count 126 L MPV 9.1 Absolute Neuts (auto) 3.2 Neutrophils % 69.9 Lymphocytes % 11.9 Monocytes % 12.0 H Eosinophils % 5.6 H Basophils % 0.6 Nucleated RBC % 0 Sodium Potassium Chloride Carbon Dioxide Anion Gap BUN Creatinine Creat Clearance w eGFR POC Glucometer Random Glucose Calcium Phosphorus Magnesium Urine Eosinophils None seen TAMI Screen Negative 03/04/18 03/04/18 03/04/18 05:30 05:49 11:32 WBC RBC Hgb Hct MCV MCH MCHC RDW Plt Count MPV Absolute Neuts (auto) Neutrophils % Lymphocytes % Monocytes % Eosinophils % Basophils % Nucleated RBC % Sodium 142 Potassium 4.7 Chloride 104 Carbon Dioxide 26 Anion Gap 12 BUN 109 H* Creatinine 3.5 H Creat Clearance w eGFR 18.02 POC Glucometer 134 170 Random Glucose 117 H Calcium 8.1 L Phosphorus 5.7 H Magnesium 2.5 H Urine Eosinophils TAMI Screen 03/04/18 16:43 WBC RBC Hgb Hct MCV MCH MCHC RDW Plt Count MPV Absolute Neuts (auto) Neutrophils % Lymphocytes % Monocytes % Eosinophils % Basophils % Nucleated RBC % Sodium Potassium Chloride Carbon Dioxide Anion Gap BUN Creatinine Creat Clearance w eGFR POC Glucometer 155 Random Glucose Calcium Phosphorus Magnesium Urine Eosinophils TAMI Screen S1 S2 RRR Lungs decreased Abd-soft,Nt edema ++ PLAN Lasix gtt-- -- BUN, creatinine remains the same continue to monitor urine out put and weight weight loss noted spoke with Cardiology and Renal Problem List - Problems (1) VANDA (acute kidney injury) Code(s): N17.9 - ACUTE KIDNEY FAILURE, UNSPECIFIED (2) CHF (congestive heart failure) Code(s): I50.9 - HEART FAILURE, UNSPECIFIED Qualifiers: Heart failure type: unspecified Heart failure chronicity: acute on chronic Qualified Code(s): I50.9 - Heart failure, unspecified (3) ASHD (arteriosclerotic heart disease) Code(s): I25.10 - ATHSCL HEART DISEASE OF [place] CORONARY ARTERY W/O ANG PCTRS (4) Acute on chronic diastolic CHF (congestive heart failure) Code(s): I50.33 - ACUTE ON CHRONIC DIASTOLIC (CONGESTIVE) HEART FAILURE
[2018-03-04] MEDS: ROSUVASTATIN CA 20 MG TABLET (FP) PO SCH (22:36)
[2018-03-04] MEDS: MIRTAZAPINE 15 MG TABLET (FP) PO SCH (22:36)
[2018-03-05] MEDS: INSULIN SLIDING SCALE (NOVOLOG) 1 VIAL SQ SCH ×3 (06:00→16:45)
[2018-03-05 06:26] LABS: BASO % 0.6 % (0-2.0); EOS % 5.8 % (0-4.5); HEMOGLOBIN 8.1 GM/dL (11.7-16.9); LYMPH % 13.8 % (8-40); MCH 33.2 pg (25.7-33.7); MCHC 35.3 g/dl (32.0-35.9); MEAN PLT VOLUME 8.4 fl (7.5-11.1); MONO % 13.5 % (3.8-10.2); NEUT % 66.3 % (42.8-82.8); PLATELET COUNT 133 K/MM3 (134-434); RBC 2.45 M/mm3 (4.00-5.60); RDW 16.9 % (11.9-15.9); WHITE BLOOD COUNT 4.2 K/mm3 (4.0-10.0)
[2018-03-05] MEDS: ACETAMINOPHEN 325 MG TABLET (FP) PO PRN (06:42)
[2018-03-05 07:18] LABS: ALBUMIN 3.3 g/dl (3.4-5.0); ALK PHOS 102 U/L (45-117); ANION GAP 6 MMOL/L (8-16); BILIRUBIN,TOTAL 0.3 mg/dL (0.2-1); CALCIUM 8.5 mg/dL (8.5-10.1); CHLORIDE 103 mmol/L (98-107); CHOLESTEROL 86 mg/dL (50-200); CO2 31 mmol/L (21-32); CREATININE 3.8 mg/dL (0.55-1.3); GLUCOSE,RANDOM 104 mg/dL (74-106); HDL CHOLESTEROL 45 mg/dL (40-60); MAGNESIUM 2.6 mg/dL (1.8-2.4); PHOSPHOROUS 7.3 mg/dL (2.5-4.9); POTASSIUM 5.1 mmol/L (3.5-5.1); SGOT/AST 16 U/L (15-37); SGPT/ALT 36 U/L (13-61); SODIUM 139 mmol/L (136-145); TOT PROT 6.4 g/dl (6.4-8.2); TRIGLYCERIDES 28 mg/dL (0-150)
[2018-03-05 07:21] LABS: BLOOD UREA NITROGEN 117 mg/dL (7-18)
[2018-03-05] MEDS: FERROUS SO4 325 MG TABLET (FP) PO SCH ×3 (08:28→17:50)
[2018-03-05] MEDS: CALCIUM ACETATE 667 MG CAPSULE (FP) PO SCH ×3 (08:29→17:50)
[2018-03-05] MEDS: FOLIC ACID 1 MG TABLET (FP) PO SCH (09:23)
[2018-03-05] MEDS: amLODIPine BESYLATE 10 MG TABLET (FP) PO SCH (09:23)
[2018-03-05] MEDS: CLOPIDOGREL BISULFATE 75 MG TABLET (FP) PO SCH (09:23)
[2018-03-05] MEDS: CARVEDILOL 6.25 MG TABLET (FP) PO SCH ×2 (09:23→21:45)
[2018-03-05] MEDS: TAMSULOSIN HCL 0.4 MG CAP PO SCH (09:23)
[2018-03-05] MEDS: ASPIRIN 81 MG CHEWABLE TABLETS PO SCH (09:23)
--- NOTE | 2018-03-05 09:28 | PN ---
Progress Note, Physician Chief Complaint: losing weight Renal function slightly worsened. TELE: NSR short run atach - Current Medication List Current Medications: Active Medications Acetaminophen (Tylenol -) 650 mg PO Q6H PRN PRN Reason: PAIN LEVEL 4 - 6 Last Admin: 03/05/18 06:42 Dose: 650 mg Amlodipine Besylate (Norvasc -) 10 mg PO DAILY [facility] Last Admin: 03/05/18 09:23 Dose: 10 mg Aspirin (Asa -) 81 mg PO DAILY [facility] Last Admin: 03/05/18 09:23 Dose: 81 mg Calcium Acetate (Phoslo -) 667 mg PO TIDCM [facility] Last Admin: 03/05/18 08:29 Dose: 667 mg Carvedilol (Coreg -) 12.5 mg PO BID [facility] Last Admin: 03/05/18 09:23 Dose: 12.5 mg Clopidogrel Bisulfate (Plavix -) 75 mg PO DAILY [facility] Last Admin: 03/05/18 09:23 Dose: 75 mg Docusate Sodium (Colace -) 100 mg PO TID PRN PRN Reason: CONSTIPATION Ferrous Sulfate (Feosol -) 325 mg PO TIDCM [facility] Last Admin: 03/05/18 08:28 Dose: 325 mg Folic Acid (Folic Acid -) 1 mg PO DAILY [facility] Last Admin: 03/05/18 09:23 Dose: 1 mg Furosemide 100 mg/ Sodium (Chloride) 100 mls @ 10 mls/hr IVPB Q10H [facility]; Protocol Last Admin: 03/04/18 22:36 Dose: 10 mls/hr Insulin Aspart (Novolog Vial Sliding Scale -) 1 vial SQ TIDAC [facility]; Protocol Last Admin: 03/05/18 06:00 Dose: Not Given Mirtazapine (Remeron -) 7.5 mg PO [facility] Last Admin: 03/04/18 22:36 Dose: 7.5 mg Rosuvastatin Calcium (Crestor -) 40 mg PO [facility] Last Admin: 03/04/18 22:36 Dose: 40 mg Tamsulosin HCl (Flomax -) 0.8 mg PO DAILY@0830 [facility] Last Admin: 03/05/18 09:23 Dose: 0.8 mg - Objective Vital Signs: Vital Signs Temperature 97.8 F 03/05/18 05:00 Pulse Rate 67 03/05/18 05:00 Respiratory Rate 18 03/05/18 05:00 Blood Pressure 130/68 03/05/18 05:00 O2 Sat by Pulse Oximetry (%) 99 03/04/18 21:00 Constitutional: Yes: Calm Cardiovascular: Yes: Regular Rate and Rhythm Respiratory: Yes: Other (bibasilar rales, 1/3 up) Gastrointestinal: Yes: Soft Edema: Yes Edema: LLE: 2+, RLE: 2+ Neurological: Yes: Alert, Oriented Labs: CBC, BMP 03/05/18 05:30 03/05/18 05:30 Laboratory Tests 03/04/18 03/04/18 03/05/18 05:30 05:30 05:30 WBC 4.6 4.2 Hgb 8.1 L 8.1 L Plt Count 126 L 133 L Sodium 142 Potassium 4.7 BUN 109 H* Creatinine 3.5 H Phosphorus 5.7 H Magnesium 2.5 H 03/05/18 05:30 WBC Hgb Plt Count Sodium 139 Potassium 5.1 BUN 117 H* Creatinine 3.8 H Phosphorus Magnesium - ....Imaging EKG: Image Reviewed Assessment/Plan Assessment/Plan 1. Left carotid stenosis s/p left carotid endarterectomy several weeks ago 2. Coronary artery disease status post GHAZAL to distal LCx 08/26/2017, pRCA 100% [employer]; ASA and Plavix continued. 3. LV diastolic dysfunction LVEF 50%: repeat echo this admission normal LV fx, no sig valve disease 4. PAD status post bilateral lower extremity bypass 5. CKD with hyperkalemia 6. COPD 7. Chronic anemia Now with acute on chronic diastolic CHF- chronic volume overload and worsening renal fxn: Trial of Lasix gtts after d/w renal. Considered for renal replacement therapy but did not yet meet full indication. Decision made to be more aggressive with diuretics over weekend. REC: 1. Stop Lasix gtts; renal fxn slightly worsened. Will d/w renal.
--- NOTE | 2018-03-05 11:17 | PN ---
Progress Note (short form) - Note Progress Note: Renal follow up for VANDA Pt seen and examined at the bedside awake and alert reports feeling better leg edema is better made a lot of urine on IV lasix no overt uremic symptoms no N/V/D, CP on NC O2 Vital Signs Temperature 97.8 F 03/05/18 05:00 Pulse Rate 67 03/05/18 05:00 Respiratory Rate 18 03/05/18 05:00 Blood Pressure 130/68 03/05/18 05:00 O2 Sat by Pulse Oximetry (%) 99 03/04/18 21:00 Intake & Output 03/03/18 03/04/18 03/04/18 03/05/18 00:59 00:59 23:59 23:59 Intake Total 730 Output Total 1000 Balance -270 Weight 95.844 kg NAD neck supple Dec BS, no rales ++ edema in LE CBC, BMP 03/05/18 05:30 03/05/18 05:30 Laboratory Tests 03/04/18 03/05/18 03/05/18 05:30 05:30 05:30 MCV 94.0 Creat Clearance w eGFR 16.39 Calcium 8.1 L 8.5 Phosphorus 5.7 H 7.3 H Magnesium 2.5 H 2.6 H Current Medications Acetaminophen (Tylenol -) 650 mg PO Q6H PRN PRN Reason: PAIN LEVEL 4 - 6 Last Admin: 03/05/18 06:42 Dose: 650 mg Amlodipine Besylate (Norvasc -) 10 mg PO DAILY [facility] Last Admin: 03/05/18 09:23 Dose: 10 mg Aspirin (Asa -) 81 mg PO DAILY [facility] Last Admin: 03/05/18 09:23 Dose: 81 mg Calcium Acetate (Phoslo -) 667 mg PO TIDCM [facility] Last Admin: 03/05/18 08:29 Dose: 667 mg Carvedilol (Coreg -) 12.5 mg PO BID [facility] Last Admin: 03/05/18 09:23 Dose: 12.5 mg Clopidogrel Bisulfate (Plavix -) 75 mg PO DAILY [facility] Last Admin: 03/05/18 09:23 Dose: 75 mg Docusate Sodium (Colace -) 100 mg PO TID PRN PRN Reason: CONSTIPATION Ferrous Sulfate (Feosol -) 325 mg PO TIDCM [facility] Last Admin: 03/05/18 08:28 Dose: 325 mg Folic Acid (Folic Acid -) 1 mg PO DAILY [facility] Last Admin: 03/05/18 09:23 Dose: 1 mg Insulin Aspart (Novolog Vial Sliding Scale -) 1 vial SQ TIDAC [facility]; Protocol Last Admin: 03/05/18 06:00 Dose: Not Given Mirtazapine (Remeron -) 7.5 mg PO [facility] Last Admin: 03/04/18 22:36 Dose: 7.5 mg Rosuvastatin Calcium (Crestor -) 40 mg PO [facility] Last Admin: 03/04/18 22:36 Dose: 40 mg Tamsulosin HCl (Flomax -) 0.8 mg PO DAILY@0830 [facility] Last Admin: 03/05/18 09:23 Dose: 0.8 mg 57 year old gentleman with hx of CKD stage 3b, Hypertension, CAD, CHF, CVA, COPD , DM who presented from [place] with SOB and admitted with CHF exacerbation with VANDA and hyperkalemia. 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 vs FSGS/IgA #Hyperkalemia in setting of MICHAEL/CHF and VANAD #CHF exacerbation (preserved LVEF) #Anemia (iron saturation 25%) #BPH Renal function slighly worse but not a very dragstic change agree that holding IV lasix is best now would start oral Torsemide 60mg Daily with close monitoring of weights and renal function would maintain a low salt and low potassium diet will need to have BMP done Q3-5 days and will need re-evaluation within a week no MICHAEL or ARB at this time Serologic work up for proteinuira negative thus far check SPEP continue flomax pt may be a canidate to be discharged and monitored as outpatient Prakash Garcia DO
[2018-03-05] MEDS: TORSEMIDE 20 MG TABLET (FP) PO SCH (13:45)
--- NOTE | 2018-03-05 13:46 | PN ---
Progress Note (short form) - Note Progress Note: Pt seen/ examined chart reviewed c/c- difficulty seeing left eye. overall ok breathing ok lasix drip stopped today-- discussed with renal Vital Signs Temp 97.8 F 03/05/18 05:00 Pulse 67 03/05/18 05:00 Resp 18 03/05/18 05:00 BP 130/68 03/05/18 05:00 Pulse Ox 99 03/04/18 21:00 Intake & Output 03/04/18 03/05/18 03/05/18 23:59 11:59 23:59 Intake Total 590 730 Output Total 1550 1000 Balance -960 -270 Weight 211 lb 4.8 oz Intake: IV 10 130 Lasix Injection - 100 mg 120 In Normal Saline - 90 ml @ 10 mls/hr IVPB Q10H [facility] Rx#:[id number] sl 10 10 Oral 580 600 Output: Urine 1550 1000 Void 1550 1000 Other: Voiding Method Urinal Toilet # Unmeasured Voids Void 1 Weight Measurement Method Standing Scale Active Medications Acetaminophen (Tylenol -) 650 mg PO Q6H PRN PRN Reason: PAIN LEVEL 4 - 6 Last Admin: 03/05/18 06:42 Dose: 650 mg Amlodipine Besylate (Norvasc -) 10 mg PO DAILY [facility] Last Admin: 03/05/18 09:23 Dose: 10 mg Aspirin (Asa -) 81 mg PO DAILY [facility] Last Admin: 03/05/18 09:23 Dose: 81 mg Calcium Acetate (Phoslo -) 667 mg PO TIDCM [facility] Last Admin: 03/05/18 12:33 Dose: 667 mg Carvedilol (Coreg -) 12.5 mg PO BID [facility] Last Admin: 03/05/18 09:23 Dose: 12.5 mg Clopidogrel Bisulfate (Plavix -) 75 mg PO DAILY [facility] Last Admin: 03/05/18 09:23 Dose: 75 mg Docusate Sodium (Colace -) 100 mg PO TID PRN PRN Reason: CONSTIPATION Ferrous Sulfate (Feosol -) 325 mg PO TIDCM [facility] Last Admin: 03/05/18 12:33 Dose: 325 mg Folic Acid (Folic Acid -) 1 mg PO DAILY [facility] Last Admin: 03/05/18 09:23 Dose: 1 mg Insulin Aspart (Novolog Vial Sliding Scale -) 1 vial SQ TIDAC [facility]; Protocol Last Admin: 03/05/18 12:28 Dose: 4 units Mirtazapine (Remeron -) 7.5 mg PO [facility] Last Admin: 03/04/18 22:36 Dose: 7.5 mg Rosuvastatin Calcium (Crestor -) 40 mg PO [facility] Last Admin: 03/04/18 22:36 Dose: 40 mg Tamsulosin HCl (Flomax -) 0.8 mg PO DAILY@0830 [facility] Last Admin: 03/05/18 09:23 Dose: 0.8 mg Torsemide (Demadex -) 60 mg PO DAILY [facility] CBC, BMP 03/05/18 05:30 03/05/18 05:30 Physical Exam awake/ comfortable S1 S2 RRR Lungs decreased Abd-soft,Nt edema ++ eye -- unremarkable exam On demedex monitor lytes opthalmology consult d/c planning anticipate tomorrow Problem List - Problems (1) Anemia Code(s): D64.9 - ANEMIA, UNSPECIFIED (2) VANDA (acute kidney injury) Code(s): N17.9 - ACUTE KIDNEY FAILURE, UNSPECIFIED (3) CHF (congestive heart failure) Code(s): I50.9 - HEART FAILURE, UNSPECIFIED Qualifiers: Heart failure type: unspecified Heart failure chronicity: acute on chronic Qualified Code(s): I50.9 - Heart failure, unspecified (4) ASHD (arteriosclerotic heart disease) Code(s): I25.10 - ATHSCL HEART DISEASE OF [place] CORONARY ARTERY W/O ANG PCTRS (5) Acute on chronic diastolic CHF (congestive heart failure) Code(s): I50.33 - ACUTE ON CHRONIC DIASTOLIC (CONGESTIVE) HEART FAILURE (6) Diabetes Code(s): E11.9 - TYPE 2 DIABETES MELLITUS WITHOUT COMPLICATIONS Qualifiers: Diabetes mellitus type: type 2 Diabetes mellitus complication detail: with nephropathy
[2018-03-05] MEDS: FUROSEMIDE INJECTION 100 MG in SODIUM CHLORIDE 90 ML IVPB SCH (17:21)
[2018-03-05] MEDS: MIRTAZAPINE 15 MG TABLET (FP) PO SCH (21:45)
[2018-03-05] MEDS: ROSUVASTATIN CA 20 MG TABLET (FP) PO SCH (21:46)
[2018-03-06] MEDS: INSULIN SLIDING SCALE (NOVOLOG) 1 VIAL SQ SCH ×2 (07:17→11:47)
[2018-03-06 07:35] LABS: BASO % 0.8 % (0-2.0); EOS % 5.3 % (0-4.5); HEMATOCRIT 22.3 % (35.4-49); HEMOGLOBIN 7.4 GM/dL (11.7-16.9); LYMPH % 14.4 % (8-40); MCH 31.3 pg (25.7-33.7); MCHC 33.2 g/dl (32.0-35.9); MEAN CELL VOLUME 94.1 fl (80-96); MEAN PLT VOLUME 8.6 fl (7.5-11.1); MONO % 12.7 % (3.8-10.2); NEUT % 66.8 % (42.8-82.8); PLATELET COUNT 115 K/MM3 (134-434); RBC 2.37 M/mm3 (4.00-5.60); RDW 16.6 % (11.9-15.9); WHITE BLOOD COUNT 4.2 K/mm3 (4.0-10.0)
[2018-03-06 08:50] LABS: ALBUMIN 3.4 g/dl (3.4-5.0); ALK PHOS 98 U/L (45-117); ANION GAP 10 MMOL/L (8-16); BILIRUBIN,TOTAL 0.4 mg/dL (0.2-1); CALCIUM 7.9 mg/dL (8.5-10.1); CHLORIDE 102 mmol/L (98-107); CO2 30 mmol/L (21-32); CREATININE 3.7 mg/dL (0.55-1.3); GLUCOSE,RANDOM 125 mg/dL (74-106); POTASSIUM 4.5 mmol/L (3.5-5.1); SGOT/AST 16 U/L (15-37); SGPT/ALT 33 U/L (13-61); SODIUM 141 mmol/L (136-145); TOT PROT 6.2 g/dl (6.4-8.2)
[2018-03-06] MEDS: FERROUS SO4 325 MG TABLET (FP) PO SCH ×2 (08:54→12:31)
[2018-03-06] MEDS: TAMSULOSIN HCL 0.4 MG CAP PO SCH (08:54)
[2018-03-06] MEDS: CALCIUM ACETATE 667 MG CAPSULE (FP) PO SCH ×2 (08:55→12:31)
--- NOTE | 2018-03-06 09:23 | PN ---
Progress Note, Physician Chief Complaint: no acute distress TELE: NSR - Current Medication List Current Medications: Active Medications Acetaminophen (Tylenol -) 650 mg PO Q6H PRN PRN Reason: PAIN LEVEL 4 - 6 Last Admin: 03/05/18 06:42 Dose: 650 mg Amlodipine Besylate (Norvasc -) 10 mg PO DAILY [facility] Last Admin: 03/05/18 09:23 Dose: 10 mg Aspirin (Asa -) 81 mg PO DAILY [facility] Last Admin: 03/05/18 09:23 Dose: 81 mg Calcium Acetate (Phoslo -) 667 mg PO TIDCM [facility] Last Admin: 03/06/18 08:55 Dose: 667 mg Carvedilol (Coreg -) 12.5 mg PO BID [facility] Last Admin: 03/05/18 21:45 Dose: 12.5 mg Clopidogrel Bisulfate (Plavix -) 75 mg PO DAILY [facility] Last Admin: 03/05/18 09:23 Dose: 75 mg Docusate Sodium (Colace -) 100 mg PO TID PRN PRN Reason: CONSTIPATION Ferrous Sulfate (Feosol -) 325 mg PO TIDCM [facility] Last Admin: 03/06/18 08:54 Dose: 325 mg Folic Acid (Folic Acid -) 1 mg PO DAILY [facility] Last Admin: 03/05/18 09:23 Dose: 1 mg Insulin Aspart (Novolog Vial Sliding Scale -) [facility]; Protocol Last Admin: 03/06/18 07:17 Dose: 2 units Mirtazapine (Remeron -) 7.5 mg PO [facility] Last Admin: 03/05/18 21:45 Dose: 7.5 mg Rosuvastatin Calcium (Crestor -) 40 mg PO [facility] Last Admin: 03/05/18 21:46 Dose: 40 mg Tamsulosin HCl (Flomax -) 0.8 mg PO DAILY@0830 [facility] Last Admin: 03/06/18 08:54 Dose: 0.8 mg Torsemide (Demadex -) 60 mg PO DAILY [facility] Last Admin: 03/05/18 13:45 Dose: 60 mg - Objective Vital Signs: Vital Signs Temperature 97.4 F L 03/06/18 05:00 Pulse Rate 70 03/06/18 05:00 Respiratory Rate 20 03/06/18 05:00 Blood Pressure 109/48 L 03/06/18 05:00 O2 Sat by Pulse Oximetry (%) 95 03/05/18 21:00 Constitutional: Yes: No Distress, Calm Cardiovascular: Yes: Regular Rate and Rhythm Respiratory: Yes: Other (decreased breath sounds at bases) Gastrointestinal: Yes: Soft Edema: Yes Edema: LLE: 2+, RLE: 2+ Neurological: Yes: Alert, Oriented Labs: CBC, BMP 03/06/18 06:35 03/06/18 06:35 - ....Imaging EKG: Image Reviewed Assessment/Plan Assessment/Plan 1. Left carotid stenosis s/p left carotid endarterectomy several weeks ago 2. Coronary artery disease status post GHAZAL to distal LCx 08/26/2017, pRCA 100% [employer]; ASA and Plavix continued. 3. LV diastolic dysfunction LVEF 50%: repeat echo this admission normal LV fx, no sig valve disease 4. PAD status post bilateral lower extremity bypass 5. CKD with hyperkalemia 6. COPD 7. Chronic anemia This admission with acute on chronic diastolic CHF and volume overload in setting of advanced CKD REC: D/W Renal. Lasix gtts discontinued. Started on Torsemide. Will need close monitoring of volume status and renal fxn D/c planning.
[2018-03-06 09:39] LABS: BLOOD UREA NITROGEN 122 mg/dL (7-18)
[2018-03-06] MEDS: CARVEDILOL 6.25 MG TABLET (FP) PO SCH (10:52)
[2018-03-06] MEDS: amLODIPine BESYLATE 10 MG TABLET (FP) PO SCH (10:52)
[2018-03-06] MEDS: FOLIC ACID 1 MG TABLET (FP) PO SCH (10:52)
[2018-03-06] MEDS: CLOPIDOGREL BISULFATE 75 MG TABLET (FP) PO SCH (10:52)
[2018-03-06] MEDS: ASPIRIN 81 MG CHEWABLE TABLETS PO SCH (10:52)
[2018-03-06] MEDS: TORSEMIDE 20 MG TABLET (FP) PO SCH (10:54)
--- NOTE | 2018-03-06 11:27 | PN ---
Progress Note (short form) - Note Progress Note: Renal follow up for VANDA Pt seen and examined at the bedside awake and alert reports Right hip discomfort denies any sob, cp legs improved weights slightly increased from yesterday Vital Signs Temperature 97.4 F L 03/06/18 05:00 Pulse Rate 70 03/06/18 05:00 Respiratory Rate 20 03/06/18 05:00 Blood Pressure 109/48 L 03/06/18 05:00 O2 Sat by Pulse Oximetry (%) 95 03/05/18 21:00 Intake & Output 03/04/18 03/04/18 03/05/18 03/06/18 00:59 23:59 23:59 23:59 Intake Total 1470 490 Output Total 1400 1550 Balance 70 -1060 Weight 95.844 kg 96.071 kg NAD awake and alert RRR Dec BS, no overt rales + edema in LE CBC, BMP 03/06/18 06:35 03/06/18 06:35 Current Medications Acetaminophen (Tylenol -) 650 mg PO Q6H PRN PRN Reason: PAIN LEVEL 4 - 6 Last Admin: 03/05/18 06:42 Dose: 650 mg Amlodipine Besylate (Norvasc -) 10 mg PO DAILY [facility] Last Admin: 03/06/18 10:52 Dose: 10 mg Aspirin (Asa -) 81 mg PO DAILY [facility] Last Admin: 03/06/18 10:52 Dose: 81 mg Calcium Acetate (Phoslo -) 667 mg PO TIDCM [facility] Last Admin: 03/06/18 08:55 Dose: 667 mg Carvedilol (Coreg -) 12.5 mg PO BID [facility] Last Admin: 03/06/18 10:52 Dose: 12.5 mg Clopidogrel Bisulfate (Plavix -) 75 mg PO DAILY [facility] Last Admin: 03/06/18 10:52 Dose: 75 mg Docusate Sodium (Colace -) 100 mg PO TID PRN PRN Reason: CONSTIPATION Ferrous Sulfate (Feosol -) 325 mg PO TIDCM [facility] Last Admin: 03/06/18 08:54 Dose: 325 mg Folic Acid (Folic Acid -) 1 mg PO DAILY [facility] Last Admin: 03/06/18 10:52 Dose: 1 mg Insulin Aspart (Novolog Vial Sliding Scale -) 1 vial SQ TIDAC [facility]; Protocol Last Admin: 03/06/18 07:17 Dose: 2 units Mirtazapine (Remeron -) 7.5 mg PO [facility] Last Admin: 03/05/18 21:45 Dose: 7.5 mg Rosuvastatin Calcium (Crestor -) 40 mg PO [facility] Last Admin: 03/05/18 21:46 Dose: 40 mg Tamsulosin HCl (Flomax -) 0.8 mg PO DAILY@0830 [facility] Last Admin: 03/06/18 08:54 Dose: 0.8 mg Torsemide (Demadex -) 60 mg PO DAILY [facility] Last Admin: 03/06/18 10:54 Dose: 60 mg 57 year old gentleman with hx of CKD stage 3b, Hypertension, CAD, CHF, CVA, COPD , DM who presented from [place] with SOB and admitted with CHF exacerbation with VANDA and hyperkalemia. 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 vs FSGS/IgA #Hyperkalemia in setting of MICHAEL/CHF and VANDA #CHF exacerbation (preserved LVEF) #Anemia (iron saturation 25%) #BPH #Decreased vision in left eye Renal function stable, no uremic symptoms expect that BUN should improve now that pt is on lower potency oral diuretic Continue oral Torsemide 60mg Daily Low salt diet Trend daily weights Check CMP Q3-4 days will need close monitoring of renal function and fluid status as outpatient if clinical status is not improving will need to consider renal biopsy to determine underlying cause of proteinuira (serologic work up negative thus far) optho consult for vision loss Prakash Garcia DO
--- NOTE | 2018-03-06 12:04 | DS ---
Physical Examination Vital Signs: Vital Signs Temperature 97.9 F 03/06/18 09:00 Pulse Rate 68 03/06/18 09:00 Respiratory Rate 20 03/06/18 09:00 Blood Pressure 114/59 L 03/06/18 09:00 O2 Sat by Pulse Oximetry (%) 97 03/06/18 09:00 Constitutional: Yes: No Distress, Calm Cardiovascular: Yes: Regular Rate and Rhythm Respiratory: Yes: Diminished Gastrointestinal: Yes: Normal Bowel Sounds, Soft, Abdomen, Obese. No: Tenderness Edema: Yes (decreased) Labs: CBC, BMP 03/06/18 06:35 03/06/18 06:35 Discharge Summary Reason For Visit: CONGESTIVE HEART FAILURE, ACUTE RENAL INSUFFICIENC Current Active Problems VANDA (acute kidney injury) (Acute) Anemia (Acute) CHF (congestive heart failure) (Acute) Obesity (Acute) Hospital Course: Admitted for decompensated CHF and acute renal failure Seen by Renal and Cardiology Placed on Lasix GTT Diuresed, has some weight loss He will be dc to NH on Torsemide-- will need monitoring of renal function No acute need for dialysis at this time as per Renal Stable for dc to NH Condition: Improved - Instructions Referrals: Paul Gutierrez MD [Primary Care Provider] - [facility] - Home Medications Comprehensive Discharge Medication List: Ambulatory Orders Aspirin [ASA -] 81 mg PO DAILY tab.chew 09/18/17 Clopidogrel Bisulfate [Plavix -] 75 mg PO DAILY #30 tablet 10/15/17 Glipizide [Glipizide ER] 5 mg PO DAILY #30 tab.er.24 10/15/17 Tamsulosin HCl [Flomax -] 0.8 mg PO DAILY@0830 #30 tab 10/15/17 Acetaminophen [Tylenol .Regular Strength -] 650 mg PO Q6H PRN tablet 01/29/18 Amlodipine Besylate [Norvasc -] 10 mg PO DAILY tablet 01/29/18 Docusate Sodium [Colace -] 100 mg PO Q8H PRN capsule 01/29/18 Ferrous Sulfate [Feosol] 325 mg PO TIDCM ud 01/29/18 Folic Acid - 1 mg PO DAILY tablet 01/29/18 Rosuvastatin [Crestor -] 40 mg PO HS tablet 01/29/18 Ascorbic Acid [Vitamin C -] 500 mg PO BID 02/06/18 Carvedilol [Coreg -] 12.5 mg PO BID 02/06/18 Furosemide [Lasix -] 40 mg PO DAILY 02/06/18 Insulin Lispro [Humalog Kwikpen U-100] 100 unit SQ [facility] 02/06/18 Mirtazapine [Remeron -] 7.5 mg PO DAILY 02/06/18 traMADol HCL [Ultram -] 50 mg PO Q6H PRN MDD 4 02/06/18 Furosemide Injection [Lasix *Injection*] 40 mg IVPB DAILY 02/20/18
[2018-03-06 13:54] VITALS: BP 103/60; PULSE 69; TEMP 97.6
[2018-03-06] MEDS ORDERED: Darbepoetin Alfa in Polysorbat 40 MCG/0.4 DISP.SYRIN SQ ONE (14:00)
== END 2018-03-06 15:34 | DRG 682 ==
LOC: JER 07:44 → JERBED 09:57 → J4W 18:19
PROVIDERS: ADMIT Internal Medicine; ATTEND Internal Medicine
DX: N17.9 Acute kidney failure, unspecified (principal); I50.33 Acute on chronic diastolic (congestive) heart failure; I13.0 Hypertensive heart and chronic kidney disease with heart failure and stage 1 through stage 4 chronic kidney disease, or unspecified chronic kidney disease; E87.0 Hyperosmolality and hypernatremia; I45.2 Bifascicular block; I25.10 Atherosclerotic heart disease of native coronary artery without angina pectoris; E11.22 Type 2 diabetes mellitus with diabetic chronic kidney disease; J44.9 Chronic obstructive pulmonary disease, unspecified; E87.5 Hyperkalemia; N18.3 Chronic kidney disease, stage 3 (moderate); N40.0 Benign prostatic hyperplasia without lower urinary tract symptoms; E11.51 Type 2 diabetes mellitus with diabetic peripheral angiopathy without gangrene; D64.9 Anemia, unspecified; R60.9 Edema, unspecified; E66.9 Obesity, unspecified; Z68.37 Body mass index [BMI] 37.0-37.9, adult; H54.7 Unspecified visual loss; Z86.73 Personal history of transient ischemic attack (TIA), and cerebral infarction without residual deficits
CPT/HCPCS: 36415; 70450-TC; 71045-TC-FY; 76775-TC; 80048; 80053; 80061; 80074; 81003; 81015; 82272; 82436; 82550; 82553; 82570; 82962; 83036; 83540; 83550; 83721; 83735; 83880; 84100; 84133; 84155; 84156; 84165; 84300; 84484; 84540; 85025; 85027; 86038; 86593; 86850; 86900; 86901; 87086; 87205; 93005; 93010; 93306-TC; 97116-GP; 97161-GP; 99283-25; J0881; J0885; J1756

== ENCOUNTER 2018-09-14 20:37 | Emergency (ER) | payer OTHER ==
[2018-09-14 21:25] VITALS: BP 130/71; PULSE 81; TEMP 97.5; BMI 34.8
--- NOTE | 2018-09-14 22:05 | PDOC ---
History of Present Illness - General Chief Complaint: Eye Problem Stated Complaint: RIGHT EYE PAIN Time Seen by Provider: 09/14/18 22:04 History Source: Patient Exam Limitations: No Limitations - History of Present Illness Initial Comments: 09/14/18 22:06 58 year old man who presents from [facility] w/ PMH of HLD, HTN, CAD, CHF on lasix , CVA (w/ L sided deficit), s/p recent L carotid endarectomy, smoker, COPD, DM, CKD (baseline cr ~2), anemia and bilateral retinal detachement with the R eye detached in Mar 2018 who presents with R eye pain and itching that was worse today and the Past History - Past Medical History Allergies/Adverse Reactions: Allergies Allergy/AdvReac Type Severity Reaction Status Date / Time No Known Drug Allergies Allergy Verified 02/20/18 07:50 Home Medications: Ambulatory Orders Aspirin [ASA -] 81 mg PO DAILY tab.chew 09/18/17 Clopidogrel Bisulfate [Plavix -] 75 mg PO DAILY #30 tablet 10/15/17 Glipizide [Glipizide ER] 5 mg PO DAILY #30 tab.er.24 10/15/17 Tamsulosin HCl [Flomax -] 0.8 mg PO DAILY@0830 #30 tab 10/15/17 Acetaminophen [Tylenol .Regular Strength -] 650 mg PO Q6H PRN tablet 01/29/18 Amlodipine Besylate [Norvasc -] 10 mg PO DAILY tablet 01/29/18 Docusate Sodium [Colace -] 100 mg PO Q8H PRN capsule 01/29/18 Ferrous Sulfate [Feosol] 325 mg PO TIDCM ud 01/29/18 Folic Acid - 1 mg PO DAILY tablet 01/29/18 Rosuvastatin [Crestor -] 40 mg PO HS tablet 01/29/18 Ascorbic Acid [Vitamin C -] 500 mg PO BID 02/06/18 Carvedilol [Coreg -] 12.5 mg PO BID 02/06/18 Insulin Lispro [Humalog Kwikpen U-100] 100 unit SQ ASDIR 02/06/18 Mirtazapine [Remeron -] 7.5 mg PO DAILY 02/06/18 Calcium Acetate [Phoslo -] 667 mg PO TIDCM #30 capsule 03/06/18 Torsemide [Demadex -] 60 mg PO DAILY #60 tablet 03/06/18 Anemia: No Asthma: No Cancer: No Cardiac Disorders: Yes (stent x 2) CVA: Yes (2010, LEFT SIDE SLIGHT RESID WKNESS IN HAND) COPD: Yes CHF: Yes Dementia: No Diabetes: Yes GI Disorders: No Disorders: No HTN: Yes Hypercholesterolemia: Yes Liver Disease: No Seizures: No Thyroid Disease: No - Surgical History Abdominal Surgery: No Appendectomy: No Cardiac Surgery: Yes (STENTS X2) Cholecystectomy: No Lung Surgery: No Neurologic Surgery: No Orthopedic Surgery: No - Immunization History Immunization Up to Date: Yes - Suicide/Smoking/Psychosocial Hx Smoking Status: Yes Smoking History: Never smoked Have you smoked in the past 12 months: No Number of Cigarettes Smoked Daily: 2 If you are a former smoker, when did you quit?: 09/2016 Cigars Per Day: 0 Information on smoking cessation initiated: No 'Breaking Loose' booklet given: 01/19/18 Hx Alcohol Use: No Drug/Substance Use Hx: No Substance Use Type: None Hx Substance Use Treatment: No *Physical Exam - Vital Signs Last Vital Signs Temp Pulse Resp BP Pulse Ox 97.5 F L 81 19 130/71 97 09/14/18 20:37 09/14/18 20:37 09/14/18 20:37 09/14/18 20:37 09/14/18 20:37 Medical Decision Making - Medical Decision Making 09/14/18 22:23 ED Course: consider scleritis vs conjunctivitis 09/14/18 23:51 Spoke with [facility]'s surgeon Dr. Cintron however still with concern for as there is no opthalmology in house likely plan for transfer *DC/Admit/Observation/Transfer Diagnosis at time of Disposition: Eye injury - Discharge Dispostion Condition at time of disposition: Fair - Referrals Referrals: Paul Gutierrez MD [Primary Care Provider] - - Patient Instructions - Post Discharge Activity
--- NOTE | 2018-09-15 00:43 | PDOC ---
Documentation entered by Guanakito Garcia SCRIBE, acting as scribe for Kianna Mg MD. Kianna Mg MD: This documentation has been prepared by the Jose brown Daniel, SCRIBE, under my direction and personally reviewed by me in its entirety. I confirm that the documentation accurately reflects all work, treatment, procedures, and medical decision making performed by me. Attending Attestation - Resident Resident Name: Yisel Stephens - ED Attending Attestation I have performed the following: I have examined & evaluated the patient, The case was reviewed & discussed with the resident, I agree w/resident's findings & plan, Exceptions are as noted - HPI HPI: 09/14/18 23:27 The patient is a 58 year old male with a past medical history of HLD, HTN, CAD, CHF on lasix, CVA (with left sided deficit), s/p recent left carotid endarterectomy, COPD, diabetes, CKD, anemia, and bilateral retinal detachment brought in today by EMS from [facility] for evaluation of right eye pain and crusting. The patient reports that he had surgery 4 days ago to try and reattach his retina (2nd attempt) and that it failed. The surgery was done by Dr. Cintron at [facility]. He states that he had increased pain in his eye this evening prompting transfer to the ED. Patient denies headache, lightheadedness. Denies fever, chills. Denies chest pain, shortness of breath. Denies nausea, vomiting, diarrhea, abdominal pain. Allergies: NKDA Social history: Patient confirms tobacco use PCP: Paul Gutierrez - Physicial Exam PE: 09/15/18 00:35 GENERAL: Awake, alert, and fully oriented, in no acute distress. Non toxic EYES: R eye with yellow crusting at lid, +subconjunctival hemorrhage and conjunctival erythema, 20/200 vision OU (baseline). No periorbital erythema ENT: Nares patent, oropharynx clear without exudates. Moist mucosa NECK: Normal ROM, supple, no lymphadenopathy, JVD, or masses LUNGS: Breath sounds equal, clear to auscultation bilaterally. No wheezes, and no crackles HEART: Regular rate and rhythm, normal S1 and S2, no murmurs, rubs or gallops ABDOMEN: Soft, nontender, normoactive bowel sounds. No guarding, no rebound. EXTREMITIES: Normal range of motion, no edema or tenderness. NEUROLOGICAL: Normal speech, cranial nerves intact, equal strength and sensation b/l SKIN: Warm, Dry, normal turgor, no rashes or lesions noted. - Medical Decision Making 09/15/18 00:40 58yo M presents to the ED with progressive R sided eye pain and crusting since procedure for retinal detachment 4 days ago Vitals wnl Exam with crusting at R eyelid and subconjuctival hemorrhage. Concern for post-op endophthalmitis Since pt is 4 days post op from [facility], plan to transfer for ophtho evaluation and possible intravitreal antibiotics Pt accepted to [facility] ED Discussed transfer with pt and his sister dinah, pt consents for transfer for further evaluation
== END 2018-09-15 01:42 | disposition short-term general hospital (02) ==
LOC: JER 20:37
DX: S05.8X1A Other injuries of right eye and orbit, initial encounter (principal); X58.XXXA Exposure to other specified factors, initial encounter; Y93.89 Activity, other specified; Y92.129 Unspecified place in nursing home as the place of occurrence of the external cause; Y99.8 Other external cause status; Z98.890 Other specified postprocedural states; I25.10 Atherosclerotic heart disease of native coronary artery without angina pectoris; I13.0 Hypertensive heart and chronic kidney disease with heart failure and stage 1 through stage 4 chronic kidney disease, or unspecified chronic kidney disease; N18.9 Chronic kidney disease, unspecified; I50.9 Heart failure, unspecified; Z95.5 Presence of coronary angioplasty implant and graft; E78.00 Pure hypercholesterolemia, unspecified; J44.9 Chronic obstructive pulmonary disease, unspecified; E11.9 Type 2 diabetes mellitus without complications; Z79.4 Long term (current) use of insulin; I69.354 Hemiplegia and hemiparesis following cerebral infarction affecting left non-dominant side
CPT/HCPCS: 99281-25

== ENCOUNTER 2019-03-09 15:14 | Inpatient (IN) | payer OTHER ==
--- NOTE | 2019-03-09 15:22 | PDOC ---
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 Patient reports was feeling well yesterday until 11PM, when he felt numbness and pain to his left side. Pain is intermittent Did not resolve overnight, patient did not report symptoms because 6 months ago had similar presentation and resolved on its own. Per senior care report complained of numbness and pain since 1PM today. BIBA to ED at 15:20. BGM [address] results negative for new CVA has chronic R frontal lobe deficits consistent with priors. Past History - Past Medical History Allergies/Adverse Reactions: Allergies Allergy/AdvReac Type Severity Reaction Status Date / Time No Known Drug Allergies Allergy Verified 02/20/18 07:50 Home Medications: Ambulatory Orders Aspirin [ASA -] 81 mg PO DAILY tab.chew 09/18/17 Clopidogrel Bisulfate [Plavix -] 75 mg PO DAILY #30 tablet 10/15/17 Glipizide [Glipizide ER] 5 mg PO DAILY #30 tab.er.24 10/15/17 Tamsulosin HCl [Flomax -] 0.8 mg PO DAILY@0830 #30 tab 10/15/17 Acetaminophen [Tylenol .Regular Strength -] 650 mg PO Q6H PRN tablet 01/29/18 Amlodipine Besylate [Norvasc -] 10 mg PO DAILY tablet 01/29/18 Folic Acid - 1 mg PO DAILY tablet 01/29/18 Rosuvastatin [Crestor -] 40 mg PO HS tablet 01/29/18 Ascorbic Acid [Vitamin C -] 500 mg PO BID 02/06/18 Carvedilol [Coreg -] 12.5 mg PO BID 02/06/18 Insulin Lispro [Humalog Kwikpen U-100] 100 unit SQ ASDIR 02/06/18 Mirtazapine [Remeron -] 7.5 mg PO DAILY 02/06/18 Calcium Acetate [Phoslo -] 667 mg PO TIDCM #30 capsule 03/06/18 Brimonidine Tartrate/Timolol [Combigan Eye Drops] 5 ml OP BID 03/09/19 Cyclopentolate 1% Eye Drops [Cyclogyl 1% Eye Drops -] 1 drop BID 03/09/19 Prednisolone 1% Ophthalmic [Pred Forte 1% -] 1 ml OP QID 03/09/19 Allopurinol [Zyloprim -] 100 mg PO DAILY 03/10/19 Bacitracin - [Bacitracin Topical Ointment -] 1 applic TP DAILY 03/10/19 Docusate Sodium [Docusate 100 mg] 200 mg PO HS 03/10/19 Famotidine [Pepcid -] 40 mg PO DAILY 03/10/19 Ferrous Sulfate 325 mg PO DAILY 03/10/19 Magnesium Hydroxide [Milk of Magnesia] 400 mg PO DAILY PRN 03/10/19 Torsemide 20 mg PO DAILY 03/10/19 Anemia: No Asthma: No Cancer: No Cardiac Disorders: Yes (stent x 2) CVA: Yes (2009, LEFT SIDE SLIGHT RESID WKNESS IN HAND) COPD: Yes CHF: Yes Dementia: No Diabetes: Yes GI Disorders: No Disorders: No HTN: Yes Hypercholesterolemia: Yes Liver Disease: No Seizures: No Thyroid Disease: No - Surgical History Abdominal Surgery: No Appendectomy: No Cardiac Surgery: Yes (STENTS X2) Cholecystectomy: No Lung Surgery: No Neurologic Surgery: No Orthopedic Surgery: No - Immunization History Immunization Up to Date: Yes - Psycho Social/Smoking Cessation Hx Smoking Status: Yes Smoking History: Never smoked Have you smoked in the past 12 months: No Number of Cigarettes Smoked Daily: 2 If you are a former smoker, when did you quit?: 09/2016 Cigars Per Day: 0 'Breaking Loose' booklet given: 01/19/18 Hx Alcohol Use: No Drug/Substance Use Hx: No Substance Use Type: None Hx Substance Use Treatment: No Neuro Specific PMHX - Complaint Specific PMHX Glaucoma: No Review of Systems - Review of Systems Able to Perform ROS?: Yes Constitutional: No: Symptoms Reported HEENTM: No: Eye Pain, Recent change in vision, Tinnitus, Hearing Loss, Difficulty Swallowing Respiratory: No: Symptoms reported Cardiac (ROS): No: Symptoms Reported ABD/GI: No: Constipated, Diarrhea, Nausea, Vomiting : No: Symptoms Reported Musculoskeletal: No: Symptoms Reported Integumentary: No: Symptoms Reported Neurological: Yes: Numbness, Weakness. No: Headache, Paresthesia, Unsteady Gait , Dizziness Endocrine: No: Symptoms Reported Hematologic/Lymphatic: No: Symptoms Reported All Other Systems: Reviewed and Negative *Physical Exam - Physical Exam Comments: 03/09/19 16:37 Neurological Exam: General - alert/oriented x3 HEENT - bilateral blindness - EOMI - PERRL CN - no deficits Sensory - reports numbness to L side - reports greater sensation to L > R to light touch to arms and legs Motor - RUE strength 5/5 all groups - LUE 4/5 strength, holds arm in air for >5 seconds with drift - BLE 5/5 strength Reflexes - 2+ patellar reflexes bilaterally Cerebellar - heel to barboza normal - unable to assess finger/nose 2/2 blindness - did not assess gait General Appearance: Yes: Nourished, Appropriately Dressed, Apparent Distress HEENT: positive: BRIE, Normal Voice, Symmetrical, Pharynx Normal. negative: Scleral Icterus (R), Scleral Icterus (L) Neck: positive: Trachea midline, Normal Thyroid, Supple. negative: Lymphadenopathy (R), Lymphadenopathy (L) Respiratory/Chest: positive: Lungs Clear, Normal Breath Sounds. negative: Chest Tender, Respiratory Distress, Accessory Muscle Use, Crackles, Rales, Rhonchi, Stridor, Wheezing Cardiovascular: positive: Regular Rhythm, Regular Rate. negative: Murmur Gastrointestinal/Abdominal: positive: Normal Bowel Sounds, Flat, Soft. negative : Tender Musculoskeletal: positive: Normal Inspection. negative: CVA Tenderness Extremity: positive: Normal Capillary Refill, Normal Inspection, Normal Range of Motion. negative: Tender Integumentary: positive: Normal Color, Dry, Warm Neurologic: positive: governor assembler II-XII NML intact, Fully Oriented, Alert, Normal Mood/ Affect, Normal Response Deep Tendon Reflexes: Knee (L): 2+, Knee (R): 2+ NIH Stroke Scale - Last Known Well Date/Time & Onset Date Last Known Well: 03/08/19 Time Last Known Well: 23:00 - Initial Evaluation Level of consciousness: Alert Ask patient the month and their age: Answers both correctly Ask patient to open & close eyes; make fist and let go: Obeys both correctly Best gaze (horizontal eye movement): Normal Visual field testing: Bilateral hemianopia (blind including cortical blindness) Facial paresis (Show teeth/raise eyebrows/close eyes tight): Normal symmetrical movement Motor Function: Left Arm: Drift Motor Function: Right Arm: Normal (extends arm 90 (or 45) degrees for 10 seconds without drift Motor Function: Left Leg: Normal (extends leg 30 degrees for 5 seconds without drift) Motor Function: Right Leg: Normal (extends leg 30 degrees for 5 seconds without drift) Limb Ataxia: No ataxia Sensory(Use pinprick test arms,legs,trunk,face/side to side): Mild to moderate decrease in sensation Best language (Describe picture, name items, read sentences): No Aphasia Dysarthria (read several words): Normal articulation Extinction and Inattention: No abnormality - Total Score NIH Stroke Scale Score: 5 tPA Exclusion Checklist 0-3hr - Time Elapsed Date last known well: 03/08/19 Time last known well: 23:00 Elaspsed time: 1 Day(s) and 17 Hour(s) and 38 Minutes - Thrombolytic Therapy Candidate Is the patient eligible for Thrombolytic Therapy?: No - Exclusion Criteria 0-3hr SBP greater than 185 or DBP greater than 110mmHg despite tx: No Recent IC/spinal surgery,head trauma or stroke w/in last 3mo: No Hx of previous IC hemorrhage, IC neoplasm, AVM or aneurysm: No - Ineligibility reason(s) Reasons No tPA given: Outside of window - delayed arrival tPA Exclusion checklist 3-4.5h - Time Elapsed Date last known well: 03/08/19 Time last known well: 23:00 Elaspsed time: 1 Day(s) and 17 Hour(s) and 38 Minutes TIA Risk Factors - ABCD Score Age: Age = or > 60 Blood Pressure: SBP < 140 and DBP < 90 Clinical Features of TIA: Speech impair w/o uni wk Duration: TIA duration = or > 60min Diabetes: No Total ABCD2 Score (0-7):: 4 Critical Care Time/MDM Note - Medical Decision Making Note: 03/09/19 15:35 Rich Solis is a 58M with PMH 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 Patient presentation is concerning for further L-sided deficits. His weakness seems to be at his baseline on the left side, but reports pain to the left side of his body intermittent with constant numbness sensation since last night. Last saw Dr. Castillo with neurology, not recently. Patient arrived in [facility] ED at 15:20. CVA order set ordered. CT scan of head shows no acute stroke, has residual R-sided infarct. CT Read: Again noted moderate cerebral atrophy and deep white matter periventricular ischemic change Again noted focal encephalomalacia/chronic infarct right frontal lobe There is no evidence of any intracerebral hemorrhage, mass lesion or midline shift. There is no evidence of an acute subdural hematoma. No CT evidence of acute infarct. No fractures are identified. Impression: No acute bleed or fracture.No CT evidence of acute infarct. No change compared to prior If symptoms persist recommend follow-up MRI Patient's last known normal at 23:00 yesterday, presented 18 hours after onset, out of time frame for tPA administration. BG 107 NIHSS 5 for sensory deficit, L sided arm drift, and bilateral blindness. Weakness and blindness known from prior, +1 point above baseline for sensory deficit. 03/09/19 16:47 Labs notable for: Hbg 8.5 Cr 2.4 ECG shows: sinus rhythm with 1st degree AV block and RBBB, HR 67, QTc 471 03/09/19 17:[address] Meng with neurology, will come to evaluate patient today. 03/09/19 17:38 Dr. Meng evaluated patient, would like MRI to further evaluate. Unwilling to give further medications until after MRI 2/2 anemia. Would like admission to stroke tele and will evaluate tomorrow. 03/09/19 17:59 Signed out to Amrita Islas for admission to hospitalist service to stroke tele under Dr. Tong. Discharge - Discharge Information Problems reviewed: Yes Clinical Impression/Diagnosis: Transient ischemic attack, History of CVA (cerebrovascular accident) CKD (chronic kidney disease) Qualifiers: Chronic kidney disease stage: stage 3 (moderate) Qualified Code(s): N18.3 - Chronic kidney disease, stage 3 (moderate) CVA (cerebrovascular accident) Qualifiers: CVA mechanism: unspecified Qualified Code(s): I63.9 - Cerebral infarction, unspecified Condition: Stable - Admission Yes - Follow up/Referral - Patient Discharge Instructions - Post Discharge Activity
[2019-03-09] MEDS: SODIUM CHLORIDE 1,000 ML IV SCH (16:09)
--- NOTE | 2019-03-09 16:09 | PDOC ---
Attending Attestation - Resident Resident Name: Vivek Sheffield - ED Attending Attestation I have performed the following: I have examined & evaluated the patient, The case was reviewed & discussed with the resident, I agree w/resident's findings & plan, Exceptions are as noted - HPI HPI: 03/09/19 16:10 Mr Solis is a 58 yo M with a PMH of HLD, HTN, CAD, CHF on lasix, CVA (w/ L sided deficit), s/p recent L carotid endarectomy, smoker, COPD, DM, CKD ( baseline cr ~2), anemia who presents from [facility] due to concern about CVA. Per the nursing staff - the patient was noted to have difficulty sticking out his tongue and increased weakness on the left side since 1:30pm Per the patient- he noted increased left sided weakness and pain since 11pm while he was watching tv He denies headaches, neck pain, fevers, chills, nausea, vomiting, and abdominal pain. - Physicial Exam PE: 03/09/19 16:07 GENERAL: The patient is in no acute distress, resting comfortably. ENT: Ears normal, nares patent, oropharynx clear without exudates. Moist mucous membranes. NECK: Normal range of motion, supple LUNGS: Breath sounds equal, clear to auscultation bilaterally. No wheezes, and no crackles. HEART:Regular rate and rhythm, normal S1 and S2 without murmur, rub or gallop. ABDOMEN: Soft, nontender, normoactive bowel sounds. EXTREMITIES: Normal range of motion, no edema. NEUROLOGICAL: see NIHSS SKIN: Warm, Dry, normal turgor, no rashes or lesions noted. - Critical Care Time Total Critical Care Time: 60 Critical Care Statement: The care of this patient involved high complexity decision making to prevent further life threatening deterioration of the patient 's condition and/or to evaluate & treat vital organ system(s) failure or risk of failure. - Medical Decision Making CODE GUEVARA CALLED (based on fpc report that symptoms began at 1:30pm) 03/09/19 16:06 EKG: Normal sinus rhythm rate of 67 bpm, right bundle branch block, left axis deviation, [address] elevation or depression, T waves are upright 03/09/19 16:06 Update, pt states his symptoms began yesterday while watching tv at 11pm Laboratory Tests 03/09/19 15:27 POC Glucometer [address] pending Signed out to Dr. Young Pending admission NIH Stroke Scale - Last Known Well Date/Time & Onset Date Last Known Well: 03/08/19 Time Last Known Well: 23:00 - Initial Evaluation Level of consciousness: Alert Ask patient to open & close eyes; make fist and let go: Obeys both correctly Best gaze (horizontal eye movement): Normal Facial paresis (Show teeth/raise eyebrows/close eyes tight): Normal symmetrical movement Motor Function: Left Arm: Drift Motor Function: Right Arm: Normal (extends arm 90 (or 45) degrees for 10 seconds without drift Motor Function: Left Leg: Normal (extends leg 30 degrees for 5 seconds without drift) Motor Function: Right Leg: Normal (extends leg 30 degrees for 5 seconds without drift)
[2019-03-09 16:17] LABS: BASO % 0.9 % (0-2.0); EOS % 5.4 % (0-4.5); HEMATOCRIT 25.7 % (35.4-49); HEMOGLOBIN 8.5 GM/dL (11.7-16.9); LYMPH % 12.5 % (8-40); MCH 31.3 pg (25.7-33.7); MCHC 33.1 g/dl (32.0-35.9); MEAN CELL VOLUME 94.6 fl (80-96); MEAN PLT VOLUME 7.7 fl (7.5-11.1); NEUT % 73.2 % (42.8-82.8); PLATELET COUNT 169 K/MM3 (134-434); RBC 2.71 M/mm3 (4.00-5.60); RDW 15.9 % (11.9-15.9); WHITE BLOOD COUNT 4.9 K/mm3 (4.0-10.0)
[2019-03-09 16:18] VITALS: BMI 34.3
[2019-03-09 16:31] LABS: INR 1.11 (0.83-1.09); PROTHROMBIN TIME (PATIENT) 13.1 SEC (9.7-13.0)
[2019-03-09 16:34] LABS: ACTIVATED PTT 37.3 SECONDS (25.2-36.5)
[2019-03-09 16:48] LABS: ALBUMIN 3.6 g/dl (3.4-5.0); BILIRUBIN,TOTAL 0.2 mg/dL (0.2-1); BLOOD UREA NITROGEN 76.9 mg/dL (7-18); CALCIUM 8.9 mg/dL (8.5-10.1); CREATININE 2.4 mg/dL (0.55-1.3); TOT PROT 7.3 g/dl (6.4-8.2)
--- NOTE | 2019-03-09 17:18 | CON.NEURO ---
Consult Consult Specialty:: Yusra Referred by:: ER Reason for Consultation:: weakness - History of Present Illness History of Present Illness: 58-year-old right-handed man long term resident with multiple medical problem including history of diabetes, prior CVA with left-sided weakness hypertension coronary artery disease history of carotid stenosis status post left carotid endarterectomy recently presented to the hospital with a chief complaint of pain and numbness. In the emergency room stroke protocol was initiated according to the emergency room staff patient had last been seen normal over 18 hours ago. Patient was not a candidate for thrombolysis patient was not candidate for tertiary care transfer. I review the CAT scan of the head from today which showed areas of hypo-ensity consistent with chronic infarct in the right MCA distribution that was seen on previous CAT scan that was done March 05, 2018 when the patient presented to [facility] with dizziness. In the emergency room patient was noted with the left arm weakness which is probably chronic from the old CVA. Patient is currently on aspirin and Plavix patient does not have a pacemaker in the emergency room patient with nocardiac arrhythmia atrial flutter atrial fibrillation. Patient was not a candidate for anticoagulation. 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, Peripheral Neuropathy, Other (arterial insufficiency s/p left fem -tibial bypass- 2013, rt fem-pop bypass- 2016) Cardio/Vascular: Yes: CAD, CHF, HTN, Hyperlipdemia, Other (PAD) Pulmonary: Yes: COPD Renal/: Yes: Renal Inusuff Psych: Yes: Anxiety Endocrine: Yes: Diabetes Mellitus - Past Surgical History Past Surgical History: Yes: Bypass, Carotid Endarterectomy, Stent - Alcohol/Substance Use Hx Alcohol Use: No History of Substance Use: reports: None - Smoking History Smoking history: Never smoked Have you smoked in the past 12 months: No Aproximately how many cigarettes per day: 2 If you are a former smoker, when did you quit?: 09/2016 - Social History ADL: Independent 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 History of Recent Travel: No Home Medications - Allergies Allergies/Adverse Reactions: Allergies Allergy/AdvReac Type Severity Reaction Status Date / Time No Known Drug Allergies Allergy Verified 02/20/18 07:50 - Home Medications Home Medications: Ambulatory Orders Aspirin [ASA -] 81 mg PO DAILY tab.chew 09/18/17 Clopidogrel Bisulfate [Plavix -] 75 mg PO DAILY #30 tablet 10/15/17 Glipizide [Glipizide ER] 5 mg PO DAILY #30 tab.er.24 10/15/17 Tamsulosin HCl [Flomax -] 0.8 mg PO DAILY@0830 #30 tab 10/15/17 Acetaminophen [Tylenol .Regular Strength -] 650 mg PO Q6H PRN tablet 01/29/18 Amlodipine Besylate [Norvasc -] 10 mg PO DAILY tablet 01/29/18 Docusate Sodium [Colace -] 100 mg PO Q8H PRN capsule 01/29/18 Ferrous Sulfate [Feosol] 325 mg PO TIDCM ud 01/29/18 Folic Acid - 1 mg PO DAILY tablet 01/29/18 Rosuvastatin [Crestor -] 40 mg PO HS tablet 01/29/18 Ascorbic Acid [Vitamin C -] 500 mg PO BID 02/06/18 Carvedilol [Coreg -] 12.5 mg PO BID 02/06/18 Insulin Lispro [Humalog Kwikpen U-100] 100 unit SQ ASDIR 02/06/18 Mirtazapine [Remeron -] 7.5 mg PO DAILY 02/06/18 Calcium Acetate [Phoslo -] 667 mg PO TIDCM #30 capsule 03/06/18 Torsemide [Demadex -] 60 mg PO DAILY #60 tablet 03/06/18 Family Medical History Family History: Unremarkable Review of Systems - Review of Systems Constitutional: reports: No Symptoms Eyes: reports: No Symptoms HENT: reports: No Symptoms Neurological: reports: Headache, Incoordination, Numbness Physical Exam-Neuro Vital Signs: Vital Signs Temperature 98.3 F 03/09/19 15:15 Pulse Rate 70 03/09/19 15:15 Respiratory Rate 17 03/09/19 15:18 Blood Pressure 124/62 03/09/19 15:15 O2 Sat by Pulse Oximetry (%) 98 03/09/19 15:29 Constitutional: Yes: Well Nourished Neck: Yes: WNL Cardiovascular: Yes: WNL Respiratory: Yes: WNL Labs: CBC, BMP 03/09/19 16:00 03/09/19 16:00 INR, PTT INR 1.11 (0.83-1.09) H 03/09/19 16:00 - Neuro Exam Level Of Consciousness: Yes: Oriented to Person, Oriented to Place, Oriented to Time Eyes: Yes: PERRLA Dominant Hand: Right Cranial Nerves II-XII Intact: Yes Gag: Present DTR's: 1+ Left Bicep, 1+ Right Bicep, 1+ Left Tricep, 1+ Right Tricep, 1+ Left Achilles, 1+ Right Achilles Response to light touch: Abnormal Response to pain prick: Abnormal Response to temperature: Abnormal Motor Strength: 3/5: Left Arm, Left Leg, 4/5: Right Arm, Right Leg Gait: Deferred NIH Stroke Scale - Last Known Well Date/Time & Onset Date Last Known Well: 03/08/19 Time Last Known Well: 12:00 - Initial Evaluation Level of consciousness: Alert Ask patient the month and their age: Answers both correctly Ask patient to open & close eyes; make fist and let go: Obeys both correctly Best gaze (horizontal eye movement): Normal Visual field testing: No visual field loss Facial paresis (Show teeth/raise eyebrows/close eyes tight): Normal symmetrical movement Motor Function: Left Arm: Some effort against gravity Motor Function: Right Arm: Normal (extends arm 90 (or 45) degrees for 10 seconds without drift Motor Function: Left Leg: Drift Motor Function: Right Leg: Normal (extends leg 30 degrees for 5 seconds without drift) Limb Ataxia: No ataxia Sensory(Use pinprick test arms,legs,trunk,face/side to side): Normal Best language (Describe picture, name items, read sentences): Mild to moderate aphasia Dysarthria (read several words): Mild to moderate slurring of words Extinction and Inattention: No abnormality - Total Score NIH Stroke Scale Score: 5 Imaging - Results Cat Scan: Image Reviewed Problem List - Problems (1) Stroke Assessment/Plan: 58-year-old man with multiple medical problem presents with numbness and pain. Gross neurological examination with evidence of weakness on the left side consistent with the old stroke. stroke prevention. Anemia Diabetes Polyneuropathy 1. neuro checks every 1 hour. 2. MRI of the brain with no contrast. 3. Suggest gastroenterology follow-up to rule out GI bleed. 4. Continue aspirin and Plavix for now. 5. Homocystine level. 6. SCDs. 7. Speech and swallow evaluation. 8. ESR C-reactive protein hemoglobin A1c. 9.obtain the old records for review thank you very much for allowing me to be part of this patient's neurological care Chiquita Meng M.D. Code(s): I63.9 - CEREBRAL INFARCTION, UNSPECIFIED
[2019-03-09 17:37] LABS: EPI CELLS 0.5 /HPF (0-5/HPF); HYALINE CASTS 3 /lpf (0-8); URINE APPEARANCE CLEAR; URINE BACTERIA 0.7 /hpf (NEGATIVE); URINE BILIRUBIN NEGATIVE (NEGATIVE); URINE COLOR YELLOW; URINE GLUCOSE (UA) NEGATIVE (NEGATIVE); URINE KETONE NEGATIVE (NEGATIVE); URINE LEUK ESTERASE NEGATIVE (NEGATIVE); URINE NITRITE NEGATIVE (NEGATIVE); URINE PROTEIN 3+ (NEGATIVE); URINE RBC 2 /hpf (0-4); URINE UROBILINOGEN 0.2 mg/dL (0.2-1.0); URINE WBC 1 /hpf (0-5)
[2019-03-09] MEDS ORDERED: DOCUSATE SODIUM 100 MG CAPSULE (FP) PO PRN (18:12)
[2019-03-09] MEDS ORDERED: ACETAMINOPHEN 325 MG TABLET (FP) PO PRN (18:12)
--- NOTE | 2019-03-09 18:38 | HP ---
CHIEF COMPLAINT:left arm pain, numbness PCP:Bhupendra HISTORY OF PRESENT ILLNESS: Mr Solis is a 58 yo M with a PMH of legally blind, HLD, HTN, CAD, CHF on lasix, CVA (w/ L sided deficit), s/p recent L carotid endarectomy, smoker, COPD, DM, CKD (baseline cr ~2), anemia who presents from [facility] due to concern about CVA. pt seen at bedside, pt reports numbness, pain in left shoulder arm. pt with left arm weakness. pt rated pain 6/10 currently. pt seen by Neuro in ED, MRI done, pending report, pt denies facial numbness, slurred speech. pt given water to drink, no coughing, dysphagia noted. ER course was notable for: (1)CT head no new acute infarct (2)hg 8.4 (3) Recent Travel: PAST MEDICAL HISTORY: HTN HLD CAD Anemia CVA CHF, diastolic BPH PAST SURGICAL HISTORY: Bypass, Carotid Endarterectomy, Stent Social History: Smoking:denies Alcohol:denies Drugs: denies Allergies No Known Drug Allergies Allergy (Verified 02/20/18 07:50) HOME MEDICATIONS: Home Medications Medication Instructions Recorded Aspirin [ASA -] 81 mg PO DAILY tab.chew 09/18/17 Clopidogrel Bisulfate [Plavix -] 75 mg PO DAILY #30 tablet 10/15/17 Glipizide [Glipizide ER] 5 mg PO DAILY #30 tab.er.24 10/15/17 Tamsulosin HCl [Flomax -] 0.8 mg PO DAILY@0830 #30 tab 10/15/17 Acetaminophen [Tylenol .Regular 650 mg PO Q6H PRN tablet 01/29/18 Strength -] Amlodipine Besylate [Norvasc -] 10 mg PO DAILY tablet 01/29/18 Docusate Sodium [Colace -] 100 mg PO Q8H PRN capsule 01/29/18 Ferrous Sulfate [Feosol] 325 mg PO TIDCM ud 01/29/18 Folic Acid - 1 mg PO DAILY tablet 01/29/18 Rosuvastatin [Crestor -] 40 mg PO HS tablet 01/29/18 Ascorbic Acid [Vitamin C -] 500 mg PO BID 02/06/18 Carvedilol [Coreg -] 12.5 mg PO BID 02/06/18 Insulin Lispro [Humalog Kwikpen 100 unit SQ ASDIR 02/06/18 U-100] Mirtazapine [Remeron -] 7.5 mg PO DAILY 02/06/18 Calcium Acetate [Phoslo -] 667 mg PO TIDCM #30 capsule 03/06/18 Torsemide [Demadex -] 60 mg PO DAILY #60 tablet 03/06/18 REVIEW OF SYSTEMS CONSTITUTIONAL: Absent: fever, chills, diaphoresis, generalized weakness, malaise, loss of appetite, weight change HEENT: Absent: rhinorrhea, nasal congestion, throat pain, throat swelling, difficulty swallowing, mouth swelling, ear pain, eye pain, visual changes CARDIOVASCULAR: Absent: chest pain, syncope, palpitations, irregular heart rate, lightheadedness , peripheral edema RESPIRATORY: Absent: cough, shortness of breath, dyspnea with exertion, orthopnea, wheezing, stridor, hemoptysis GASTROINTESTINAL: Absent: abdominal pain, abdominal distension, nausea, vomiting, diarrhea, constipation, melena, hematochezia GENITOURINARY: Absent: dysuria, frequency, urgency, hesitancy, hematuria, flank pain, genital pain MUSCULOSKELETAL: Absent: myalgia, arthralgia, joint swelling, back pain, neck pain SKIN: pain, redness in abdominal fold Absent: rash, itching, pallor HEMATOLOGIC/IMMUNOLOGIC: Absent: easy bleeding, easy bruising, lymphadenopathy, frequent infections ENDOCRINE: Absent: unexplained weight gain, unexplained weight loss, heat intolerance, cold intolerance NEUROLOGIC: left arm numbnessm, pain, Absent: headache, focal weakness or paresthesias, dizziness, unsteady gait, seizure, mental status changes, bladder or bowel incontinence PSYCHIATRIC: Absent: anxiety, depression, suicidal or homicidal ideation, hallucinations. PHYSICAL EXAMINATION Vital Signs - 24 hr 03/09/19 03/09/19 03/09/19 15:15 15:18 15:29 Temperature 98.3 F Pulse Rate 70 Respiratory 17 17 Rate Blood Pressure 124/62 O2 Sat by Pulse 99 98 98 Oximetry (%) GENERAL: Awake, alert, and fully oriented, in no acute distress. HEAD: Normal with no signs of trauma. EYES: Pupils equal, round and reactive to light, extraocular movements intact, sclera anicteric, conjunctiva clear. No lid lag. EARS, NOSE, THROAT: Ears normal, nares patent, oropharynx clear without exudates. Moist mucous membranes. NECK: Normal range of motion, supple without lymphadenopathy, JVD, or masses. LUNGS: Breath sounds equal, clear to auscultation bilaterally. No wheezes, and no crackles. No accessory muscle use. HEART: Regular rate and rhythm, normal S1 and S2 without murmur, rub or gallop. ABDOMEN: Soft, nontender, not distended, normoactive bowel sounds, no guarding, no rebound, no masses. No hepatomegaly or splenomegaly. MUSCULOSKELETAL: Normal range of motion at all joints. No bony deformities or tenderness. No CVA tenderness. UPPER EXTREMITIES: 2+ pulses, warm, well-perfused. No cyanosis. No clubbing. No peripheral edema. LOWER EXTREMITIES: 2+ pulses, warm, well-perfused. No calf tenderness. No peripheral edema. NEUROLOGICAL: Cranial nerves II-XII intact. Normal speech. Normal gait. PSYCHIATRIC: Cooperative. Good eye contact. Appropriate mood and affect. SKIN: redness in abd fold, Warm, dry, normal turgor, no rashes or lesions noted , normal capillary refill. Laboratory Results - last 24 hr 03/09/19 03/09/19 03/09/19 15:27 16:00 16:00 WBC RBC Hgb Hct MCV MCH MCHC RDW Plt Count MPV Absolute Neuts (auto) Neutrophils % Lymphocytes % Monocytes % Eosinophils % Basophils % Nucleated RBC % PT with INR 13.10 H INR 1.11 H PTT (Actin FS) 37.3 H Sodium Potassium Chloride Carbon Dioxide Anion Gap BUN Creatinine Est GFR (CKD-EPI)AfAm Est GFR (CKD-EPI)NonAf POC Glucometer 107 Random Glucose Calcium Total Bilirubin AST ALT Alkaline Phosphatase Creatine Kinase 85 Troponin I < 0.02 Total Protein Albumin Triglycerides Cholesterol Total LDL Cholesterol HDL Cholesterol Urine Color Urine Appearance Urine pH Ur Specific Ignacio Urine Protein Urine Glucose (UA) Urine Ketones Urine Blood Urine Nitrite Urine Bilirubin Urine Urobilinogen Ur Leukocyte Esterase Urine WBC (Auto) Urine RBC (Auto) Urine Casts (Auto) U Epithel Cells (Auto) Urine Bacteria (Auto) Blood Type Antibody Screen 03/09/19 03/09/19 03/09/19 16:00 16:00 16:00 WBC 4.9 RBC 2.71 L Hgb 8.5 L Hct 25.7 L D MCV 94.6 MCH 31.3 MCHC 33.1 RDW 15.9 Plt Count 169 D MPV 7.7 D Absolute Neuts (auto) 3.6 Neutrophils % 73.2 Lymphocytes % 12.5 Monocytes % 8.0 Eosinophils % 5.4 H Basophils % 0.9 Nucleated RBC % 0 PT with INR INR PTT (Actin FS) Sodium 140 Potassium 5.0 Chloride 108 H Carbon Dioxide 26 Anion Gap 5 L BUN 76.9 H Creatinine 2.4 H Est GFR (CKD-EPI)AfAm 32.75 Est GFR (CKD-EPI)NonAf 28.26 POC Glucometer Random Glucose 118 H Calcium 8.9 Total Bilirubin 0.2 AST 10 L ALT 18 Alkaline Phosphatase 122 H Creatine Kinase Troponin I Total Protein 7.3 Albumin 3.6 Triglycerides 128 Cholesterol 100 Total LDL Cholesterol 52 HDL Cholesterol 30 L Urine Color Urine Appearance Urine pH Ur Specific Ignacio Urine Protein Urine Glucose (UA) Urine Ketones Urine Blood Urine Nitrite Urine Bilirubin Urine Urobilinogen Ur Leukocyte Esterase Urine WBC (Auto) Urine RBC (Auto) Urine Casts (Auto) U Epithel Cells (Auto) Urine Bacteria (Auto) Blood Type O POSITIVE Antibody Screen Negative 03/09/19 17:16 WBC RBC Hgb Hct MCV MCH MCHC RDW Plt Count MPV Absolute Neuts (auto) Neutrophils % Lymphocytes % Monocytes % Eosinophils % Basophils % Nucleated RBC % PT with INR INR PTT (Actin FS) Sodium Potassium Chloride Carbon Dioxide Anion Gap BUN Creatinine Est GFR (CKD-EPI)AfAm Est GFR (CKD-EPI)NonAf POC Glucometer Random Glucose Calcium Total Bilirubin AST ALT Alkaline Phosphatase Creatine Kinase Troponin I Total Protein Albumin Triglycerides Cholesterol Total LDL Cholesterol HDL Cholesterol Urine Color Yellow Urine Appearance Clear Urine pH 5.0 Ur Specific Ignacio 1.015 Urine Protein 3+ H Urine Glucose (UA) Negative Urine Ketones Negative Urine Blood Negative Urine Nitrite Negative Urine Bilirubin Negative Urine Urobilinogen 0.2 Ur Leukocyte Esterase Negative Urine WBC (Auto) 1 Urine RBC (Auto) 2 Urine Casts (Auto) 3 U Epithel Cells (Auto) 0.5 Urine Bacteria (Auto) 0.7 Blood Type Antibody Screen ASSESSMENT/PLAN: Rich Solis is a 58 yr old M, medical condition HTN, DM, CHF, CVA, CAD, CKD stage 3, COPD, Anemia, hx of left carotid stenosis, s/p left CEA 2017 admitted for Admitting Diagnosis CVA r/o Chronic Conditions CHF, diastolic, HTN/HLD CAD DM Anemia CKD stage 3 COPD A/P: #CVA/TIA r/o -admit to stroke tele -neuro checks -Neuro consult - seen in ED -MRI -CT - no new infarct, -A1c pending -pt on asa, plavix, statin -swallow eval , can adv diet from puree once eval done -lipid panel reviewed #anemia, chronic -hg stable, baseline ~7.1-8.4 -anemia workup ordered -occult stool ordered -c/w ferrous sulfate, folic acid -GI consult PRN #CHF, chronic diastolic #HTN #HLD #CAD -toresemide daily -c/w norvasc, coreg -on asa, plavix -echo ordered #CKD stage 3 -baseline 2 -today 2.4 -monitor CMP -resume diuretic #DM -ISC -monitor FS AC/HS -A1c in process -glipizide on hold #BPH -c/w flomax #Fungal rash-abd fold -nystatin powder Full Code DVT prophlyaxis SCD Visit type - Emergency Visit Emergency Visit: Yes ED Registration Date: 03/09/19 Care time: The patient presented to the Emergency Department on the above date and was hospitalized for further evaluation of their emergent condition. - New Patient This patient is new to me today: Yes Date on this admission: 03/09/19 - Critical Care Critical Care patient: No
[2019-03-09] MEDS: INSULIN SLIDING SCALE (NOVOLOG) 1 VIAL SQ SCH (21:45)
[2019-03-09] MEDS: CARVEDILOL 12.5 MG TABLET (FP) PO SCH (21:45)
[2019-03-09] MEDS: ROSUVASTATIN CA 20 MG TABLET (FP) PO SCH (21:45)
[2019-03-09] MEDS: ASCORBIC ACID 500 MG TABLET (FP) PO SCH (21:45)
[2019-03-09] MEDS ORDERED: PATIENT'S OWN MEDICATION (NON-FORMULARY) (Brimonidine Tartrate/Timolol [Combigan 0.2%-0.5% OP SCH (22:15)
[2019-03-09] MEDS: CYCLOPENTOLATE HCL 1% OPHTH SOLN 2 ML BOTTLE OD SCH (22:58)
[2019-03-09] MEDS: NYSTATIN POWDER 100,000 UNITS/GM - 15 GM TOPICAL POWDER TP SCH (22:59)
[2019-03-10] MEDS: NYSTATIN POWDER 100,000 UNITS/GM - 15 GM TOPICAL POWDER TP SCH ×3 (06:08→21:42)
[2019-03-10] MEDS: INSULIN SLIDING SCALE (NOVOLOG) 1 VIAL SQ SCH ×4 (06:11→22:03)
[2019-03-10 06:54] LABS: BASO % 0.6 % (0-2.0); EOS % 4.1 % (0-4.5); HEMOGLOBIN 7.5 GM/dL (11.7-16.9); LYMPH % 12.4 % (8-40); MCH 31.7 pg (25.7-33.7); MCHC 34.1 g/dl (32.0-35.9); MEAN CELL VOLUME 92.9 fl (80-96); MEAN PLT VOLUME 7.8 fl (7.5-11.1); MONO % 7.5 % (3.8-10.2); NEUT % 75.4 % (42.8-82.8); PLATELET COUNT 161 K/MM3 (134-434); RBC 2.37 M/mm3 (4.00-5.60); RDW 16.2 % (11.9-15.9); WHITE BLOOD COUNT 5.7 K/mm3 (4.0-10.0)
[2019-03-10 07:30] LABS: ALBUMIN 3.2 g/dl (3.4-5.0); BILIRUBIN,TOTAL 0.3 mg/dL (0.2-1); BLOOD UREA NITROGEN 71.7 mg/dL (7-18); CALCIUM 8.3 mg/dL (8.5-10.1); CREATININE 2.3 mg/dL (0.55-1.3); MAGNESIUM 2.4 mg/dL (1.8-2.4); N-TERMINAL BNP 491.7 pg/ml (5-125); POTASSIUM 4.7 mmol/L (3.5-5.1); TOT PROT 6.2 g/dl (6.4-8.2)
[2019-03-10] MEDS: CALCIUM ACETATE 667 MG CAPSULE (FP) PO SCH ×3 (08:25→17:02)
[2019-03-10] MEDS: FERROUS SO4 325 MG TABLET (FP) PO SCH ×3 (08:25→17:02)
[2019-03-10] MEDS: TAMSULOSIN HCL 0.4 MG CAP PO SCH (08:25)
--- NOTE | 2019-03-10 08:51 | PN ---
Progress Note (short form) - Note Progress Note: Pt examined, chart reviewed Pt is blind now he is in NH for alf Had left sided numbness-- now resolved Wants to eat regular food Vital Signs - 24 hr 03/10/19 03/10/19 03/10/19 02:00 06:00 09:00 Temperature 98.2 F 98.1 F Pulse Rate 81 80 Respiratory 18 20 Rate Blood Pressure 127/57 L 136/60 O2 Sat by Pulse 97 Oximetry (%) 03/10/19 03/10/19 03/10/19 09:45 14:00 18:00 Temperature 98.3 F 97.8 F 98.3 F Pulse Rate 74 77 75 Respiratory 19 18 18 Rate Blood Pressure 127/63 118/53 L 113/51 L O2 Sat by Pulse Oximetry (%) 03/10/19 21:00 Temperature 98.0 F Pulse Rate 79 Respiratory 20 Rate Blood Pressure 137/65 O2 Sat by Pulse 95 Oximetry (%) Current Medications Generic Name Dose Route Start Last Admin Trade Name Freq PRN Reason Stop Dose Admin Acetaminophen 650 mg 03/09/19 18:12 03/10/19 22:01 Tylenol - PO 650 mg Q6H PRN Administration PAIN LEVEL 4 - 6 Amlodipine Besylate 10 mg 03/10/19 10:00 03/10/19 09:58 Norvasc - PO 10 mg DAILY TONYA Administration Ascorbic Acid 500 mg 03/09/19 22:00 03/10/19 21:41 Vitamin C - PO 500 mg BID TONYA Administration Aspirin 81 mg 03/10/19 10:00 03/10/19 09:58 Asa - PO 81 mg DAILY TONYA Administration Brimonidine Tartrate 1 drop 03/10/19 10:00 03/10/19 21:40 Alphagan 0.2% - OU 1 drop BID TONYA Administration Calcium Acetate 667 mg 03/10/19 08:00 03/10/19 17:02 Phoslo - PO 667 mg TIDCM TONYA Administration Carvedilol 12.5 mg 03/09/19 22:00 03/10/19 21:41 Coreg - PO 12.5 mg BID TONYA Administration Clopidogrel Bisulfate 75 mg 03/10/19 10:00 03/10/19 09:58 Plavix - PO 75 mg DAILY TONYA Administration Cyclopentolate HCl 1 drop 03/09/19 22:15 03/10/19 21:42 Cyclogyl 1% Eye Drops - OD 1 drop BID TONYA Administration Docusate Sodium 100 mg 03/09/19 18:12 Colace - PO TID PRN CONSTIPATION Ferrous Sulfate 325 mg 03/10/19 08:00 03/10/19 17:02 Feosol - PO 325 mg TIDCM TONYA Administration Folic Acid 1 mg 03/10/19 10:00 03/10/19 09:58 Folic Acid - PO 1 mg DAILY TONYA Administration Sodium Chloride 1,000 mls @ 42 mls/hr 03/09/19 15:30 03/10/19 17:00 Normal Saline - IV Not Given ASDIR TONYA Insulin Aspart 1 vial 03/09/19 22:00 03/10/19 22:03 Novolog Vial Sliding Scale - SQ 2 unit ACHS TONYA Administration Protocol Mirtazapine 7.5 mg 03/10/19 22:00 03/10/19 21:41 Remeron - PO 7.5 mg HS TONYA Administration Nystatin 1 applic 03/09/19 22:00 03/10/19 21:42 Nystop Powder - TP 1 applic TID TONYA Administration Prednisolone Acetate 1 drop 03/10/19 10:00 03/10/19 22:05 Pred Forte 1% - OD 1 drop QID TONYA Administration Rosuvastatin Calcium 40 mg 03/09/19 22:00 03/10/19 21:42 Crestor - PO 40 mg HS TONYA Administration Tamsulosin HCl 0.8 mg 03/10/19 08:30 03/10/19 08:25 Flomax - PO 0.8 mg DAILY@0830 TONYA Administration Timolol Maleate 1 drop 03/10/19 10:00 03/10/19 21:47 Timoptic 0.5% OU 1 drop BID TONYA Administration Laboratory Results - last 24 hr 03/10/19 03/10/19 03/10/19 06:00 06:00 06:10 WBC 5.7 RBC 2.37 L Hgb 7.5 L Hct 22.0 L MCV 92.9 MCH 31.7 MCHC 34.1 RDW 16.2 H Plt Count 161 MPV 7.8 Absolute Neuts (auto) 4.3 Neutrophils % 75.4 Lymphocytes % 12.4 Monocytes % 7.5 Eosinophils % 4.1 Basophils % 0.6 Nucleated RBC % 0 Sodium 140 Potassium 4.7 Chloride 111 H Carbon Dioxide 23 Anion Gap 6 L BUN 71.7 H Creatinine 2.3 H Est GFR (CKD-EPI)AfAm 34.48 Est GFR (CKD-EPI)NonAf 29.75 POC Glucometer Random Glucose 71 L Hemoglobin A1c % 6.5 H Calcium 8.3 L Magnesium 2.4 Iron 48 L TIBC 252 Iron Saturation 19 Unsaturated IBC 204 Ferritin 205.1 Total Bilirubin 0.3 AST 10 L ALT 17 Alkaline Phosphatase 104 B-Natriuretic Peptide 491.7 H Total Protein 6.2 L Albumin 3.2 L 03/10/19 03/10/19 03/10/19 06:10 12:07 17:01 WBC RBC Hgb Hct MCV MCH MCHC RDW Plt Count MPV Absolute Neuts (auto) Neutrophils % Lymphocytes % Monocytes % Eosinophils % Basophils % Nucleated RBC % Sodium Potassium Chloride Carbon Dioxide Anion Gap BUN Creatinine Est GFR (CKD-EPI)AfAm Est GFR (CKD-EPI)NonAf POC Glucometer 81 153 103 Random Glucose Hemoglobin A1c % Calcium Magnesium Iron TIBC Iron Saturation Unsaturated IBC Ferritin Total Bilirubin AST ALT Alkaline Phosphatase B-Natriuretic Peptide Total Protein Albumin 03/10/19 22:02 WBC RBC Hgb Hct MCV MCH MCHC RDW Plt Count MPV Absolute Neuts (auto) Neutrophils % Lymphocytes % Monocytes % Eosinophils % Basophils % Nucleated RBC % Sodium Potassium Chloride Carbon Dioxide Anion Gap BUN Creatinine Est GFR (CKD-EPI)AfAm Est GFR (CKD-EPI)NonAf POC Glucometer 174 Random Glucose Hemoglobin A1c % Calcium Magnesium Iron TIBC Iron Saturation Unsaturated IBC Ferritin Total Bilirubin AST ALT Alkaline Phosphatase B-Natriuretic Peptide Total Protein Albumin S1 S2 RRR Lungs clear Abd- soft, obese, NT Trace edema Slight weakness elicited on left side no tremors sensations intact pt able to drink thin liquids PLAN MRI brain done-- results pending possible TIA Recheck CBC Swallow eval may advance diet PT eval Problem List - Problems (1) CKD (chronic kidney disease) Code(s): N18.9 - CHRONIC KIDNEY DISEASE, UNSPECIFIED Qualifiers: Chronic kidney disease stage: stage 3 (moderate) Qualified Code(s): N18.3 - Chronic kidney disease, stage 3 (moderate) (2) Transient ischemic attack Code(s): G45.9 - TRANSIENT CEREBRAL ISCHEMIC ATTACK, UNSPECIFIED (3) Anemia Code(s): D64.9 - ANEMIA, UNSPECIFIED Qualifiers: Anemia type: unspecified type Qualified Code(s): D64.9 - Anemia, unspecified (4) BPH (benign prostatic hyperplasia) Code(s): N40.0 - BENIGN PROSTATIC HYPERPLASIA WITHOUT LOWER URINRY TRACT SYMP Qualifiers: Lower urinary tract symptom presence: unspecified whether lower urinary tract symptoms present Qualified Code(s): N40.0 - Benign prostatic hyperplasia without lower urinary tract symptoms (5) CAD (coronary artery disease) Code(s): I25.10 - ATHSCL HEART DISEASE OF [place] CORONARY ARTERY W/O ANG PCTRS Qualifiers: Coronary Disease-Associated Artery/Lesion type: [place] artery [place] vs. transplanted heart: [place] heart Associated angina: without angina Qualified Code(s): I25.10 - Atherosclerotic heart disease of [place] coronary artery without angina pectoris
[2019-03-10] MEDS ORDERED: PT OWN MED DRAWER 7, Y5N ONE (09:35)
[2019-03-10] MEDS: ASPIRIN 81 MG CHEWABLE TABLETS PO SCH (09:58)
[2019-03-10] MEDS: amLODIPine BESYLATE 10 MG TABLET (FP) PO SCH (09:58)
[2019-03-10] MEDS: CARVEDILOL 12.5 MG TABLET (FP) PO SCH ×2 (09:58→21:41)
[2019-03-10] MEDS: FOLIC ACID 1 MG TABLET (FP) PO SCH (09:58)
[2019-03-10] MEDS: CYCLOPENTOLATE HCL 1% OPHTH SOLN 2 ML BOTTLE OD SCH ×2 (09:58→21:42)
[2019-03-10] MEDS: CLOPIDOGREL BISULFATE 75 MG TABLET (FP) PO SCH (09:58)
[2019-03-10] MEDS: ASCORBIC ACID 500 MG TABLET (FP) PO SCH ×2 (09:58→21:41)
[2019-03-10] MEDS: prednisoLONE ACETATE 1% OPHTH SUSP 5 ML BOTTLE OD SCH ×4 (09:59→22:05)
--- NOTE | 2019-03-10 10:51 | EKG ---
Test Reason : Blood Pressure : / mmHG Vent. Rate : 067 BPM Atrial Rate : 067 BPM P-R Int : 214 ms QRS Dur : 152 ms QT Int : 446 ms P-R-T Axes : 060 -59 053 degrees QTc Int : 471 ms SINUS RHYTHM WITH 1ST DEGREE A-V BLOCK RIGHT BUNDLE BRANCH BLOCK LEFT ANTERIOR FASCICULAR BLOCK BIFASCICULAR BLOCK SEPTAL INFARCT , AGE UNDETERMINED ABNORMAL ECG WHEN COMPARED WITH ECG OF 20-FEB-2018 07:58, QRS DURATION HAS INCREASED Confirmed by SIRISHA SMITH MD ([id number]) on 03/10/2019 10:51:09 AM Referred By: Confirmed By:SIRISHA SMITH MD
[2019-03-10] MEDS: BRIMONIDINE TARTRATE 0.2% OPHTHALMIC 5 ML BOTTLE OU SCH ×2 (10:55→21:40)
[2019-03-10] MEDS: TIMOLOL 0.5% OPHTHALMIC SOL 5 ML BOTTLE OU SCH ×2 (10:58→21:47)
[2019-03-10] MEDS: SODIUM CHLORIDE 1,000 ML IV SCH (17:00)
[2019-03-10] MEDS: MIRTAZAPINE 15 MG TABLET (FP) PO SCH (21:41)
[2019-03-10] MEDS: ROSUVASTATIN CA 20 MG TABLET (FP) PO SCH (21:42)
[2019-03-11] MEDS: INSULIN SLIDING SCALE (NOVOLOG) 1 VIAL SQ SCH ×4 (06:37→21:24)
[2019-03-11] MEDS: NYSTATIN POWDER 100,000 UNITS/GM - 15 GM TOPICAL POWDER TP SCH ×3 (06:37→21:25)
[2019-03-11] MEDS: TAMSULOSIN HCL 0.4 MG CAP PO SCH (08:58)
[2019-03-11] MEDS: CALCIUM ACETATE 667 MG CAPSULE (FP) PO SCH ×3 (08:59→17:32)
[2019-03-11] MEDS: FERROUS SO4 325 MG TABLET (FP) PO SCH ×3 (08:59→17:32)
[2019-03-11 09:18] LABS: BASO % 0.8 % (0-2.0); EOS % 4.3 % (0-4.5); HEMATOCRIT 24.6 % (35.4-49); LYMPH % 17.6 % (8-40); MCH 30.9 pg (25.7-33.7); MCHC 32.7 g/dl (32.0-35.9); MEAN CELL VOLUME 94.6 fl (80-96); MEAN PLT VOLUME 7.7 fl (7.5-11.1); NEUT % 67.3 % (42.8-82.8); PLATELET COUNT 158 K/MM3 (134-434); RDW 15.6 % (11.9-15.9)
[2019-03-11] MEDS ORDERED: PT OWN MED DRAWER 7, Y5N ONE ×2 (09:21→21:09)
--- NOTE | 2019-03-11 09:23 | PN ---
Progress Note, Physician History of Present Illness: events noted chart reviewed Alert awake oriented No headache Legally blind Review the MRI of the brain with no evidence of acute pathology Left arm still weak - Current Medication List Current Medications: Active Medications Acetaminophen (Tylenol -) 650 mg PO Q6H PRN PRN Reason: PAIN LEVEL 4 - 6 Last Admin: 03/10/19 22:01 Dose: 650 mg Amlodipine Besylate (Norvasc -) 10 mg PO DAILY [facility] Last Admin: 03/10/19 09:58 Dose: 10 mg Ascorbic Acid (Vitamin C -) 500 mg PO BID [facility] Last Admin: 03/10/19 21:41 Dose: 500 mg Aspirin (Asa -) 81 mg PO DAILY [facility] Last Admin: 03/10/19 09:58 Dose: 81 mg Brimonidine Tartrate (Alphagan 0.2% -) 1 drop OU BID [facility] Last Admin: 03/10/19 21:40 Dose: 1 drop Calcium Acetate (Phoslo -) 667 mg PO TIDCM [facility] Last Admin: 03/11/19 08:59 Dose: 667 mg Carvedilol (Coreg -) 12.5 mg PO BID [facility] Last Admin: 03/10/19 21:41 Dose: 12.5 mg Clopidogrel Bisulfate (Plavix -) 75 mg PO DAILY [facility] Last Admin: 03/10/19 09:58 Dose: 75 mg Cyclopentolate HCl (Cyclogyl 1% Eye Drops -) 1 drop OD BID [facility] Last Admin: 03/10/19 21:42 Dose: 1 drop Docusate Sodium (Colace -) 100 mg PO TID PRN PRN Reason: CONSTIPATION Ferrous Sulfate (Feosol -) 325 mg PO TIDCM [facility] Last Admin: 03/11/19 08:59 Dose: 325 mg Folic Acid (Folic Acid -) 1 mg PO DAILY [facility] Last Admin: 03/10/19 09:58 Dose: 1 mg Sodium Chloride (Normal Saline -) 1,000 mls @ 42 mls/hr IV ASDIR [facility] Last Admin: 03/10/19 17:00 Dose: Not Given Insulin Aspart (Novolog Vial Sliding Scale -) 1 vial SQ ACHS [facility]; Protocol Last Admin: 03/11/19 06:37 Dose: Not Given Mirtazapine (Remeron -) 7.5 mg PO HS [facility] Last Admin: 03/10/19 21:41 Dose: 7.5 mg Nystatin (Nystop Powder -) 1 applic TP TID [facility] Last Admin: 03/11/19 06:37 Dose: 1 applic Prednisolone Acetate (Pred Forte 1% -) 1 drop OD QID [facility] Last Admin: 03/10/19 22:05 Dose: 1 drop Rosuvastatin Calcium (Crestor -) 40 mg PO HS [facility] Last Admin: 03/10/19 21:42 Dose: 40 mg Tamsulosin HCl (Flomax -) 0.8 mg PO DAILY@0830 [facility] Last Admin: 03/11/19 08:58 Dose: 0.8 mg Timolol Maleate (Timoptic 0.5%) 1 drop OU BID [facility] Last Admin: 03/10/19 21:47 Dose: 1 drop - Objective Vital Signs: Vital Signs Temperature 98.0 F 03/11/19 09:02 Pulse Rate 80 03/11/19 09:02 Respiratory Rate 18 03/11/19 09:02 Blood Pressure 135/60 03/11/19 09:02 O2 Sat by Pulse Oximetry (%) 95 03/10/19 21:00 Constitutional: Yes: Well Nourished Eyes: Yes: WNL HENT: Yes: WNL Neurological: Yes: Alert, Oriented, Babinski positive ...Motor Strength: LUE, LLE Labs: INR, PTT INR 1.11 (0.83-1.09) H 03/09/19 16:00 Problem List - Problems (1) Stroke Assessment/Plan: no evidence of acute stroke Stroke prevention Questionable toxic encephalopathy resolving 1. Neuro checks every 1 hour. 2. Physical therapy. 3. Follow-up with hematology regarding the anemia Code(s): I63.9 - CEREBRAL INFARCTION, UNSPECIFIED
[2019-03-11] MEDS: CLOPIDOGREL BISULFATE 75 MG TABLET (FP) PO SCH (09:46)
[2019-03-11] MEDS: CARVEDILOL 12.5 MG TABLET (FP) PO SCH ×2 (09:48→21:23)
[2019-03-11] MEDS: ASCORBIC ACID 500 MG TABLET (FP) PO SCH ×2 (09:48→21:23)
[2019-03-11] MEDS: FOLIC ACID 1 MG TABLET (FP) PO SCH (09:48)
[2019-03-11] MEDS: amLODIPine BESYLATE 10 MG TABLET (FP) PO SCH (09:48)
[2019-03-11] MEDS: ASPIRIN 81 MG CHEWABLE TABLETS PO SCH (09:48)
[2019-03-11] MEDS: prednisoLONE ACETATE 1% OPHTH SUSP 5 ML BOTTLE OD SCH ×4 (09:52→21:26)
[2019-03-11] MEDS: BRIMONIDINE TARTRATE 0.2% OPHTHALMIC 5 ML BOTTLE OU SCH ×2 (09:53→21:25)
[2019-03-11] MEDS: CYCLOPENTOLATE HCL 1% OPHTH SOLN 2 ML BOTTLE OD SCH ×2 (09:54→21:25)
[2019-03-11] MEDS: TIMOLOL 0.5% OPHTHALMIC SOL 5 ML BOTTLE OU SCH ×2 (09:54→21:26)
[2019-03-11 09:56] LABS: ALBUMIN 3.3 g/dl (3.4-5.0); BILIRUBIN,TOTAL 0.3 mg/dL (0.2-1); BLOOD UREA NITROGEN 72.5 mg/dL (7-18); CALCIUM 8.6 mg/dL (8.5-10.1); CREATININE 2.5 mg/dL (0.55-1.3); TOT PROT 6.7 g/dl (6.4-8.2)
--- NOTE | 2019-03-11 12:47 | ECHO ---
Name: FINA ZHOU Exam:Adult Echocardiogram Study Date: 03/11/2019 11:31 AM Age: 58 yrs Height: 64 in Weight: 200 lb BSA: 2.0 m2 MMode/2D Measurements & Calculations IVSd: 1.0 cm Ao root diam: 2.7 cm LVIDd: 4.3 cm LA dimension: 3.8 cm LVIDs: 2.7 cm LVPWd: 1.2 cm LVPWs: 1.1 cm EDV(Teich): 82.7 ml ESV(Teich): 28.1 ml LVOT diam: 2.1 cm LAV (MOD-bp): 66.0 ml RV S Josh: 8.0 cm/sec Doppler Measurements & Calculations MV V2 max: 143.9 cm/sec MV E max josh: 113.0 cm/sec MV max P.3 mmHg MV A max josh: 129.8 cm/sec MV V2 mean: 90.3 cm/sec MV E/A: 0.87 MV mean P.8 mmHg MV dec time: 0.12 sec MV V2 VTI: 45.8 cm Ao V2 max: 119.3 cm/sec LV V1 max P.3 mmHg Ao max P.7 mmHg LV V1 max: 91.3 cm/sec THIEN(V,D): 2.5 cm2 PA V2 max: 105.9 cm/sec Med Peak E' Josh: 3.9 cm/sec PA max P.5 mmHg Med E/e': 29.0 Lat Peak E' Josh: 7.1 cm/sec Lat E/e': 15.9 Procedure A complete two-dimensional transthoracic echocardiogram was performed (2D, M-mode, Doppler and color flow Doppler). Left Ventricle The left ventricle is normal in size. Left ventricular systolic function is normal. Ejection Fraction = 60- 65%. No regional wall motion abnormalities noted. Right Ventricle The right ventricle is normal size. The right ventricular systolic function is normal. Atria The left atrial size is normal. LA volume index is 34 ml/m2. Right atrial size is normal. Mitral Valve There is moderate mitral annular calcification. There is mild mitral regurgitation. Tricuspid Valve The tricuspid valve is normal in structure and function. There is mild tricuspid regurgitation. Aortic Valve There is mild aortic sclerosis.;. No aortic regurgitation is present. Pulmonic Valve The pulmonic valve is not well visualized. Great Vessels The aortic root is normal size. Pericardium/Pleura There is no pericardial effusion. Interpretation Summary The left ventricle is normal in size. Left ventricular systolic function is normal. No regional wall motion abnormalities noted. Ejection Fraction = 60-65%. The right ventricular systolic function is normal. The left atrial size is normal. Right atrial size is normal. There is moderate mitral annular calcification. There is mild mitral regurgitation. There is mild tricuspid regurgitation. There is mild aortic sclerosis. There is no pericardial effusion. Win Cintron MD 03/11/2019 12:46 PM
--- NOTE | 2019-03-11 13:15 | CONSULT ---
Admitting History and Physical - Primary Care Physician PCP: Ariadna Huizar - Admission History of Present Illness: 58 yr old M, medical condition HTN, DM, CHF, CVA, CAD, CKD stage 3, COPD, Anemia , hx of left carotid stenosis, s/p left CEA 2017 admitted for to r/o CVA Alert awake oriented No headache Legally blind Pt reports h/o CVA, Speech/swallowing unchanged. 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, Peripheral Neuropathy, Other (arterial insufficiency s/p left fem -tibial bypass- 2013, rt fem-pop bypass- 2017) Cardiovascular: Yes: CAD, CHF, HTN, Hyperlipdemia, Other (PAD) Pulmonary: Yes: COPD Renal/: Yes: Renal Inusuff Heme/Onc: Yes: Anemia Psych: Yes: Anxiety Endocrine: Yes: Diabetes Mellitus - Past Surgical History Past Surgical History: Yes: Bypass, Carotid Endarterectomy, Stent - Smoking History Smoking history: Never smoked Have you smoked in the past 12 months: No Aproximately how many cigarettes per day: 2 If you are a former smoker, when did you quit?: 09/2016 - Alcohol/Substance Use Hx Alcohol Use: No History of Substance Use: reports: None - Social History ADL: Independent 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 History of Recent Travel: No History - Admission Reason For Visit: TRANSIENT ISCHEMIC ATTACK - Diagnostics X-ray: Report Reviewed CT Scan: Report Reviewed MRI: Report Reviewed (MRI of the brain with no evidence of acute pathology) - General Mental Status: Alert and Oriented, Awake and Alert, Able to Follow Commands Attention: Intact Ability to Follow Directions: Excellent Head/Neck Control: Good - Hearing Hearing: Normal Speech Evaluation - Communication Primary Language: [place] Communication: Yes: Dysarthria Oral Expression Ability: Yes: Mild Impairment - Speech Production Able to Make Needs Known: Yes: WNL Intelligibility: Yes: Mildly Impaired - Speech Characteristics Voice Loudness: Normal Voice Pitch: Yes: Normal Voice Phonatory-based Quality: Yes: Normal Speech Clarity: < 100% Nasal Resonance: Normal Articulation: Yes: Imprecise (mild/Reports as baseline) Rate of Speech: Too Slow - Language/Auditory Comprehension Follows: Yes: 2 Stage Simple Commands Observation: Able to respond to yes/no queries: Yes, Yes/No Confusion: No, Comprehends Conversational Speech: Yes - Language/Verbal Expression Able to Respond to Simple Queries: Yes: WNL Able to Communicate Wants and Needs: Yes: WNL Functional Communication Status: Yes: WNL - 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 Memory: Yes: WNL Short Term Memory: Yes: WNL - Swallow Evaluation/Bedside Assessment Current Nutritional Intake: Regular Oral Secretions: Yes: WFL Dentition: Yes: Missing Teeth Facial Symmetry at Rest: Facial Droop Left Against Resistance Opening: Weak Against Resistance Closing: Weak Pucker Lips: Weak Smile: Weak Lingual Movement: Symmetric Lingual Speed of Movement: Reduced Lingual Movement Strgth Against Opposition: Reduced Lingual Movement Characteristics: Normal Velopharyngeal Movement: Normal Laryngeal Movement: Able to Palpate, Labored,delay initiation Rate of Intake: WFL Bolus Size: WFL Labial Seal: WFL Chewing: Impaired (missing dentition. Mildly reduced efficiency. Reports difficulty with salad but tolerates reg meat, cookies, etc) Oral Prep Time: WFL A-P Transit: WFL Pocketing: None Timing of Swallow: Delayed Coughing/Throat Clear: No Change in Voice: No Recommendations - Speech Evaluation, Impression/Plan Impression: Mild Dysarthria/left facial which pt reports as baseline. H/o cva x 1 yr ago. Missing dentition. Mildly reduced mastication efficiency. Reports difficulty with salad but tolerates reg meat, cookies, etc - Disposition Discharge to: Custodial Facility - Dysphagia Impressions/Plan Swallowing Skills: WF Dysphagia Impressions: Minimal Impairment, Risk of Aspiration *Silent aspiration: cannot be R/O at bedside Dysphagia Treatment Plan: Small Bites, Chin Tuck/Down, Clear Pocket Food, Trial Feedings, Facilitative Feeding, Safe Rate, OOB for meals, OOB for 1 h. after meals Recommendations: Modified Barium Swallow (if cough, congestion, stasis, MBS can be done as out pt.), Other (monitor tolerance. Assistance with meals. Blind) - Recommendations Diet Consistency: Regular (no salad, per pt request) Medication Administration: Whole with water Liquids: Thin Liquids
--- NOTE | 2019-03-11 13:18 | DS ---
Physical Examination Vital Signs: Vital Signs Temperature 98.0 F 03/11/19 09:02 Pulse Rate 80 03/11/19 09:02 Respiratory Rate 18 03/11/19 09:02 Blood Pressure 135/60 03/11/19 09:02 O2 Sat by Pulse Oximetry (%) 95 03/10/19 21:00 Findings/Remarks: PT SEEN/ EXAMINED CHART REVIEWED AWAKE/ COMFORTABLE DENIES PAIN MRI- VE FOR ACUTE CVA ECHO- UNREMARKABLE Constitutional: Yes: No Distress, Calm HENT: Yes: WNL Neck: Yes: Supple Cardiovascular: Yes: Regular Rate and Rhythm Respiratory: Yes: CTA Bilaterally Gastrointestinal: Yes: Soft Edema: No Neurological: Yes: Alert Psychiatric: Yes: Alert Labs: CBC, BMP 03/11/19 08:53 03/11/19 08:53 Discharge Summary Problems reviewed: Yes Reason For Visit: TRANSIENT ISCHEMIC ATTACK Current Active Problems CKD (chronic kidney disease) (Acute) CVA (cerebrovascular accident) (Acute) History of CVA (cerebrovascular accident) (Acute) Transient ischemic attack (Acute) Hospital Course: Mr oSlis is a 58 yo M with a PMH of legally blind, HLD, HTN, CAD, CHF on lasix, CVA (w/ L sided deficit), s/p recent L carotid endarectomy, smoker, COPD, DM, CKD (baseline cr ~2), anemia who presents from [facility] due to concern about CVA CVA RULED OUT ECHO [place] ANEMIA OF CHRONIC DISEASE HAS BEEN WORKED UP IN PAST CONSIDER HEMATOLOGY CONSULT OUT PT CHART REVIEWED CXR -02/15 NOTED NO CXR DONE THIS ADMISSION WILL ORDER TODAY BEFORE D/C PT D/W RN ALSO ANTICIPATE D/C LATER TODAY Condition: Stable - Instructions Referrals: Paul Gutierrez MD [Primary Care Provider] - - Home Medications Comprehensive Discharge Medication List: Ambulatory Orders Aspirin [ASA -] 81 mg PO DAILY tab.chew 09/18/17 Clopidogrel Bisulfate [Plavix -] 75 mg PO DAILY #30 tablet 10/15/17 Glipizide [Glipizide ER] 5 mg PO DAILY #30 tab.er.24 10/15/17 Tamsulosin HCl [Flomax -] 0.8 mg PO DAILY@0830 #30 tab 10/15/17 Acetaminophen [Tylenol .Regular Strength -] 650 mg PO Q6H PRN tablet 01/29/18 Amlodipine Besylate [Norvasc -] 10 mg PO DAILY tablet 01/29/18 Folic Acid - 1 mg PO DAILY tablet 01/29/18 Rosuvastatin [Crestor -] 40 mg PO HS tablet 01/29/18 Ascorbic Acid [Vitamin C -] 500 mg PO BID 02/06/18 Carvedilol [Coreg -] 12.5 mg PO BID 02/06/18 Mirtazapine [Remeron -] 7.5 mg PO DAILY 02/06/18 Calcium Acetate [Phoslo -] 667 mg PO TIDCM #30 capsule 03/06/18 Brimonidine Tartrate/Timolol [Combigan 0.2%-0.5% Eye Drops] 5 ml OP BID Cyclopentolate 1% Eye Drops [Cyclogyl 1% Eye Drops -] 1 drop BID 03/09/19 Prednisolone 1% Ophthalmic [Pred Forte 1% -] 1 ml OP QID 03/09/19 Allopurinol [Zyloprim -] 100 mg PO DAILY 03/10/19 Bacitracin - [Bacitracin Topical Ointment -] 1 applic TP DAILY 03/10/19 Docusate Sodium [Docusate 100 mg] 200 mg PO HS 03/10/19 Famotidine [Pepcid -] 40 mg PO DAILY 03/10/19 Ferrous Sulfate 325 mg PO DAILY 03/10/19 Torsemide 20 mg PO DAILY 03/10/19 Ferrous Sulfate [Feosol] 325 mg PO TIDCM ud 03/11/19 Insulin Sliding Scale [Novolog Vial Sliding Scale -] 1 vial SQ ACHS units 03/11 Nystatin Powder [Nystop Powder -] 1 applic TP TID applic 03/11/19 Timolol 0.5% [Timoptic 0.5%] 1 drop OU BID drops 03/11/19
[2019-03-11] MEDS: SODIUM CHLORIDE 1,000 ML IV SCH (17:34)
[2019-03-11] MEDS: ROSUVASTATIN CA 20 MG TABLET (FP) PO SCH (21:22)
[2019-03-11] MEDS: MIRTAZAPINE 15 MG TABLET (FP) PO SCH (21:23)
[2019-03-12] MEDS: NYSTATIN POWDER 100,000 UNITS/GM - 15 GM TOPICAL POWDER TP SCH (06:29)
[2019-03-12] MEDS: INSULIN SLIDING SCALE (NOVOLOG) 1 VIAL SQ SCH ×2 (06:30→12:14)
[2019-03-12 08:43] VITALS: BP 133/74; PULSE 87; TEMP 98.8
[2019-03-12] MEDS: CALCIUM ACETATE 667 MG CAPSULE (FP) PO SCH ×2 (09:04→12:14)
[2019-03-12] MEDS: TAMSULOSIN HCL 0.4 MG CAP PO SCH (09:04)
[2019-03-12] MEDS: FERROUS SO4 325 MG TABLET (FP) PO SCH ×2 (09:04→12:14)
[2019-03-12] MEDS: CLOPIDOGREL BISULFATE 75 MG TABLET (FP) PO SCH (09:50)
[2019-03-12] MEDS: ASPIRIN 81 MG CHEWABLE TABLETS PO SCH (09:50)
[2019-03-12] MEDS: FOLIC ACID 1 MG TABLET (FP) PO SCH (09:50)
[2019-03-12] MEDS: CARVEDILOL 12.5 MG TABLET (FP) PO SCH (09:51)
[2019-03-12] MEDS: ASCORBIC ACID 500 MG TABLET (FP) PO SCH (09:51)
[2019-03-12] MEDS: amLODIPine BESYLATE 10 MG TABLET (FP) PO SCH (09:51)
[2019-03-12] MEDS: prednisoLONE ACETATE 1% OPHTH SUSP 5 ML BOTTLE OD SCH (09:53)
[2019-03-12] MEDS: BRIMONIDINE TARTRATE 0.2% OPHTHALMIC 5 ML BOTTLE OU SCH (09:54)
[2019-03-12] MEDS: CYCLOPENTOLATE HCL 1% OPHTH SOLN 2 ML BOTTLE OD SCH (09:54)
[2019-03-12] MEDS: TIMOLOL 0.5% OPHTHALMIC SOL 5 ML BOTTLE OU SCH (09:54)
--- NOTE | 2019-03-12 10:46 | PN ---
Progress Note, HEELER MACHINE - Note Progress Note: Selected Entries 03/11/19 03/11/19 03/11/19 02:00 06:00 08:45 Breakfast 100% Lunch Supper Temperature 98 F 97.8 F 03/11/19 03/11/19 03/11/19 09:02 13:00 18:00 Breakfast Lunch 100% Supper 100% Temperature 98.0 F 98.1 F 97.5 F L 03/11/19 03/12/19 03/12/19 21:33 01:00 06:00 Breakfast Lunch Supper Temperature 97.8 F 97.8 F 97.9 F 03/12/19 08:42 Breakfast Lunch Supper Temperature 98.8 F Laboratory Tests 03/11/19 08:53 WBC 5.0 Tolerating diet well.
--- NOTE | 2019-03-12 12:17 | PN ---
Progress Note (short form) - Note Progress Note: Pt examined, chart reviewed Pt is blind now [facility] [place] [facility] Had left sided numbness-- now resolved no complaints Vital Signs - 24 hr 03/11/19 03/11/19 03/11/19 13:00 18:00 21:00 Temperature 98.1 F 97.5 F L Pulse Rate 75 78 Respiratory 18 18 18 Rate Blood Pressure 124/59 L 111/51 L O2 Sat by Pulse 95 Oximetry (%) 03/11/19 03/12/19 03/12/19 21:33 01:00 06:00 Temperature 97.8 F 97.8 F 97.9 F Pulse Rate 77 77 78 Respiratory 18 18 18 Rate Blood Pressure 120/52 L 151/67 140/65 O2 Sat by Pulse Oximetry (%) 03/12/19 03/12/19 08:42 09:00 Temperature 98.8 F Pulse Rate 87 Respiratory 18 Rate Blood Pressure 133/74 O2 Sat by Pulse 95 Oximetry (%) Current Medications Generic Name Dose Route Start Last Admin Trade Name Freq PRN Reason Stop Dose Admin Acetaminophen 650 mg 03/09/19 18:12 03/10/19 22:01 Tylenol - PO 650 mg Q6H PRN Administration PAIN LEVEL 4 - 6 Amlodipine Besylate 10 mg 03/10/19 10:00 03/12/19 09:51 Norvasc - PO 10 mg DAILY [facility] Administration Ascorbic Acid 500 mg 03/09/19 22:00 03/12/19 09:51 Vitamin C - PO 500 mg BID TONYA Administration Aspirin 81 mg 03/10/19 10:00 03/12/19 09:50 Asa - PO 81 mg DAILY [facility] Administration Brimonidine Tartrate 1 drop 03/10/19 10:00 03/12/19 09:54 Alphagan 0.2% - OU 1 drop BID [facility] Administration Calcium Acetate 667 mg 03/10/19 08:00 03/12/19 09:04 Phoslo - PO 667 mg TIDCM [facility] Administration Carvedilol 12.5 mg 03/09/19 22:00 03/12/19 09:51 Coreg - PO 12.5 mg BID [facility] Administration Clopidogrel Bisulfate 75 mg 03/10/19 10:00 03/12/19 09:50 Plavix - PO 75 mg DAILY [facility] Administration Cyclopentolate HCl 1 drop 03/09/19 22:15 03/12/19 09:54 Cyclogyl 1% Eye Drops - OD 1 drop BID [facility] Administration Docusate Sodium 100 mg 03/09/19 18:12 Colace - PO TID PRN CONSTIPATION Ferrous Sulfate 325 mg 03/10/19 08:00 03/12/19 09:04 Feosol - PO 325 mg TIDCM [facility] Administration Folic Acid 1 mg 03/10/19 10:00 03/12/19 09:50 Folic Acid - PO 1 mg DAILY [facility] Administration Sodium Chloride 1,000 mls @ 42 mls/hr 03/09/19 15:30 03/11/19 17:34 Normal Saline - IV Not Given ASDIR [facility] Insulin Aspart 1 vial 03/09/19 22:00 03/12/19 06:30 Novolog Vial Sliding Scale - SQ Not Given ACHS [facility] Protocol Mirtazapine 7.5 mg 03/10/19 22:00 03/11/19 21:23 Remeron - PO 7.5 mg HS [facility] Administration Nystatin 1 applic 03/09/19 22:00 03/12/19 06:29 Nystop Powder - TP 1 applic TID [facility] Administration Prednisolone Acetate 1 drop 03/10/19 10:00 03/12/19 09:53 Pred Forte 1% - OD 1 drop QID [facility] Administration Rosuvastatin Calcium 40 mg 03/09/19 22:00 03/11/19 21:22 Crestor - PO 40 mg HS [facility] Administration Tamsulosin HCl 0.8 mg 03/10/19 08:30 03/12/19 09:04 Flomax - PO 0.8 mg DAILY@0830 [facility] Administration Timolol Maleate 1 drop 03/10/19 10:00 03/12/19 09:54 Timoptic 0.5% OU 1 drop BID [facility] Administration Laboratory Results - last 24 hr 03/09/19 03/11/19 03/11/19 16:00 12:21 17:36 POC Glucometer 145 153 Homocysteine 18.4 H Stool Occult Blood 03/11/19 03/12/19 03/12/19 21:20 06:28 09:04 POC Glucometer 164 126 Homocysteine Stool Occult Blood Negative 03/12/19 12:12 POC Glucometer 167 Homocysteine Stool Occult Blood S1 S2 RRR Lungs clear Abd- soft, obese, NT Trace edema Slight weakness elicited on left side no tremors sensations intact pt able to drink thin liquids PLAN MRI brain done-- results noted possible TIA dc planning Will need hematology eval as outpt and CT chest no contrast -- surveillance screening -- as pt was an exsmoker Problem List - Problems (1) CKD (chronic kidney disease) Code(s): N18.9 - CHRONIC KIDNEY DISEASE, UNSPECIFIED Qualifiers: Chronic kidney disease stage: stage 3 (moderate) Qualified Code(s): N18.3 - Chronic kidney disease, stage 3 (moderate) (2) Transient ischemic attack Code(s): G45.9 - TRANSIENT CEREBRAL ISCHEMIC ATTACK, UNSPECIFIED (3) Anemia Code(s): D64.9 - ANEMIA, UNSPECIFIED Qualifiers: Anemia type: unspecified type Qualified Code(s): D64.9 - Anemia, unspecified (4) BPH (benign prostatic hyperplasia) Code(s): N40.0 - BENIGN PROSTATIC HYPERPLASIA WITHOUT LOWER URINRY TRACT SYMP Qualifiers: Lower urinary tract symptom presence: unspecified whether lower urinary tract symptoms present Qualified Code(s): N40.0 - Benign prostatic hyperplasia without lower urinary tract symptoms (5) CAD (coronary artery disease) Code(s): I25.10 - ATHSCL HEART DISEASE OF [place] CORONARY ARTERY W/O ANG PCTRS Qualifiers: Coronary Disease-Associated Artery/Lesion type: [place] artery [place] vs. transplanted heart: [place] heart Associated angina: without angina Qualified Code(s): I25.10 - Atherosclerotic heart disease of [place] coronary artery without angina pectoris
== END 2019-03-12 13:21 | DRG 69 ==
LOC: JER 15:14 → J4S 17:41
PROVIDERS: ADMIT Family Medicine; ATTEND Internal Medicine
DX: G45.9 Transient cerebral ischemic attack, unspecified (principal); G81.94 Hemiplegia, unspecified affecting left nondominant side; I13.0 Hypertensive heart and chronic kidney disease with heart failure and stage 1 through stage 4 chronic kidney disease, or unspecified chronic kidney disease; I50.32 Chronic diastolic (congestive) heart failure; B48.8 Other specified mycoses; I25.10 Atherosclerotic heart disease of native coronary artery without angina pectoris; E78.5 Hyperlipidemia, unspecified; H54.8 Legal blindness, as defined in USA; E11.42 Type 2 diabetes mellitus with diabetic polyneuropathy; D63.8 Anemia in other chronic diseases classified elsewhere; J44.9 Chronic obstructive pulmonary disease, unspecified; F17.210 Nicotine dependence, cigarettes, uncomplicated; E66.9 Obesity, unspecified; Z68.36 Body mass index [BMI] 36.0-36.9, adult; I44.0 Atrioventricular block, first degree; F41.9 Anxiety disorder, unspecified; N40.0 Benign prostatic hyperplasia without lower urinary tract symptoms; I45.10 Unspecified right bundle-branch block; E11.22 Type 2 diabetes mellitus with diabetic chronic kidney disease; N18.3 Chronic kidney disease, stage 3 (moderate); E11.51 Type 2 diabetes mellitus with diabetic peripheral angiopathy without gangrene; Z95.5 Presence of coronary angioplasty implant and graft
CPT/HCPCS: 36415; 70450-TC; 70551-TC; 71045-TC-FY; 80053; 80061; 81003; 82272; 82550; 82607; 82728; 82962; 83036; 83090; 83540; 83550; 83721; 83735; 83880; 84484; 85025; 85610; 85651; 85730; 86850; 86900; 86901; 93005; 93010; 93306-TC; 97116-GP; 97161-GP; 99285-25; J7030

== ENCOUNTER 2021-08-19 10:15 | Inpatient (IN) | payer OTHER ==
[2021-08-19 10:46] VITALS: BMI 35.5
[2021-08-19 12:08] LABS: EOS % 4.6 % (0-4.5); HEMATOCRIT 31.6 % (35.4-49); HEMOGLOBIN 10.1 GM/dL (11.7-16.9); LYMPH % 13.3 % (8-40); MCH 30.1 pg (25.7-33.7); MCHC 32.1 g/dl (32.0-35.9); MEAN CELL VOLUME 93.8 fl (80-96); MONO % 9.7 % (3.8-10.2); NEUT % 71.4 % (42.8-82.8); PLATELET COUNT 159 10^3/uL (134-434); RBC 3.37 M/mm3 (4.00-5.60); WHITE BLOOD COUNT 5.3 K/mm3 (4.0-10.0)
[2021-08-19 12:15] LABS: INR 1.15 (0.83-1.09); PROTHROMBIN TIME (PATIENT) 13.3 SEC (9.7-13.0)
[2021-08-19 12:18] LABS: ACTIVATED PTT 32.4 SECONDS (25.2-36.5)
[2021-08-19 13:22] LABS: CALCIUM 9.2 mg/dL (8.5-10.1)
[2021-08-19 13:23] LABS: ALBUMIN 3.2 g/dl (3.4-5.0); BLOOD UREA NITROGEN 54.5 mg/dL (7-18); MAGNESIUM 2.5 mg/dL (1.8-2.4)
[2021-08-19 13:26] LABS: CREATININE 2.5 mg/dL (0.55-1.3)
[2021-08-19 13:27] LABS: BILIRUBIN,TOTAL 0.4 mg/dL (0.2-1); TOT PROT 6.7 g/dl (6.4-8.2)
[2021-08-19 13:31] LABS: N-TERMINAL BNP 1757.7 pg/ml (5-125)
[2021-08-19] MEDS ORDERED: CIPROFLOXACIN 500 MG TABLET (RESTRICTED TO ID) PO ONE (15:53)
[2021-08-19] MEDS ORDERED: CIPROFLOXACIN 400 MG/D5W 400 MG/200 ML IVPB IVPB ONE (15:58)
[2021-08-19] MEDS: CALCIUM ACETATE 667 MG CAPSULE (FP) PO SCH (18:30)
[2021-08-19] MEDS ORDERED: PATIENT'S OWN MEDICATION (NON-FORMULARY) (Brimonidine Tartrate/Timolol [Combigan 0.2%-0.5% OP SCH (22:00)
[2021-08-19] MEDS: NYSTATIN POWDER 100,000 UNITS/GM - 15 GM TOPICAL POWDER TP SCH (22:51)
[2021-08-19] MEDS: TIMOLOL 0.5% OPHTHALMIC SOL 5 ML BOTTLE OU SCH (22:51)
[2021-08-19] MEDS: HEPARIN NA (PORCINE) 5,000 UNITS/ML 1ML VIAL SQ SCH (22:52)
[2021-08-19] MEDS: CARVEDILOL 6.25 MG TABLET (FP) PO SCH (22:53)
[2021-08-19] MEDS: ROSUVASTATIN CA 20 MG TABLET PO SCH (22:53)
[2021-08-20] MEDS: NYSTATIN POWDER 100,000 UNITS/GM - 15 GM TOPICAL POWDER TP SCH ×3 (05:34→21:50)
[2021-08-20 08:19] LABS: BASO % 0.7 % (0-2.0); EOS % 2.8 % (0-4.5); HEMATOCRIT 28.8 % (35.4-49); HEMOGLOBIN 9.3 GM/dL (11.7-16.9); LYMPH % 14.1 % (8-40); MCH 30.5 pg (25.7-33.7); MCHC 32.3 g/dl (32.0-35.9); MEAN CELL VOLUME 94.4 fl (80-96); MEAN PLT VOLUME 8.6 fl (7.5-11.1); MONO % 9.2 % (3.8-10.2); NEUT % 73.2 % (42.8-82.8); PLATELET COUNT 139 10^3/uL (134-434); RBC 3.05 M/mm3 (4.00-5.60); RDW 16.9 % (11.9-15.9); WHITE BLOOD COUNT 4.6 K/mm3 (4.0-10.0)
[2021-08-20 08:43] LABS: CALCIUM 8.9 mg/dL (8.5-10.1)
[2021-08-20 08:44] LABS: ALBUMIN 2.9 g/dl (3.4-5.0); BLOOD UREA NITROGEN 49.3 mg/dL (7-18)
[2021-08-20 08:47] LABS: CREATININE 2.7 mg/dL (0.55-1.3)
[2021-08-20 08:49] LABS: BILIRUBIN,TOTAL 0.5 mg/dL (0.2-1); TOT PROT 5.9 g/dl (6.4-8.2)
[2021-08-20] MEDS ORDERED: DEXTROSE 5%-WATER - 50 ML IVPB ONE (08:52)
[2021-08-20] MEDS ORDERED: cefTRIAXone SODIUM 1 GM VIAL ONE (08:52)
[2021-08-20] MEDS: CALCIUM ACETATE 667 MG CAPSULE (FP) PO SCH ×3 (09:03→17:04)
[2021-08-20] MEDS: ALLOPURINOL 100 MG TABLET (FP) PO SCH (09:03)
[2021-08-20] MEDS: MIRTAZAPINE 15 MG TABLET (FP) PO SCH (09:04)
[2021-08-20] MEDS: amLODIPine BESYLATE 10 MG TABLET (FP) PO SCH (09:04)
[2021-08-20] MEDS: TAMSULOSIN HCL 0.4 MG CAP PO SCH (09:04)
[2021-08-20] MEDS: ASPIRIN 81 MG CHEWABLE TABLETS PO SCH (09:04)
[2021-08-20] MEDS: CARVEDILOL 6.25 MG TABLET (FP) PO SCH ×2 (09:04→21:56)
[2021-08-20] MEDS: CLOPIDOGREL BISULFATE 75 MG TABLET (FP) PO SCH (09:04)
[2021-08-20] MEDS: CEFTRIAXONE 1 GM in DEXTROSE 5%-WATER - 50 ML IVPB SCH (09:05)
[2021-08-20] MEDS: TIMOLOL 0.5% OPHTHALMIC SOL 5 ML BOTTLE OU SCH ×2 (09:05→21:50)
[2021-08-20] MEDS: HEPARIN NA (PORCINE) 5,000 UNITS/ML 1ML VIAL SQ SCH ×2 (09:05→21:56)
[2021-08-20 18:50] LABS: EPI CELLS 24 /uL (0-25.1); HYALINE CASTS 7 /uL (0-3.1); PH,URINE 5.5 (5.0-8.0); URINE APPEARANCE CLEAR; URINE BACTERIA 7 /uL (0-1359); URINE BILIRUBIN NEGATIVE (NEGATIVE); URINE COLOR YELLOW; URINE GLUCOSE (UA) NEGATIVE (NEGATIVE); URINE KETONE NEGATIVE (NEGATIVE); URINE LEUK ESTERASE NEGATIVE (NEGATIVE); URINE NITRITE NEGATIVE (NEGATIVE); URINE PROTEIN 3+ (NEGATIVE); URINE RBC 18 /uL (0-23.9); URINE WBC 16 /uL (0-25.8)
[2021-08-20] MEDS: ROSUVASTATIN CA 20 MG TABLET PO SCH (21:56)
[2021-08-21] MEDS: NYSTATIN POWDER 100,000 UNITS/GM - 15 GM TOPICAL POWDER TP SCH ×3 (06:26→21:49)
[2021-08-21] MEDS: TAMSULOSIN HCL 0.4 MG CAP PO SCH (08:59)
[2021-08-21] MEDS: CALCIUM ACETATE 667 MG CAPSULE (FP) PO SCH ×3 (08:59→17:52)
[2021-08-21] MEDS ORDERED: DEXTROSE 5%-WATER - 50 ML IVPB ONE (09:27)
[2021-08-21] MEDS ORDERED: cefTRIAXone SODIUM 1 GM VIAL ONE (09:27)
[2021-08-21] MEDS: CARVEDILOL 6.25 MG TABLET (FP) PO SCH ×2 (09:36→21:46)
[2021-08-21] MEDS: ASPIRIN 81 MG CHEWABLE TABLETS PO SCH (09:36)
[2021-08-21] MEDS: MIRTAZAPINE 15 MG TABLET (FP) PO SCH (09:36)
[2021-08-21] MEDS: ALLOPURINOL 100 MG TABLET (FP) PO SCH (09:36)
[2021-08-21] MEDS: CLOPIDOGREL BISULFATE 75 MG TABLET (FP) PO SCH (09:36)
[2021-08-21] MEDS: CEFTRIAXONE 1 GM in DEXTROSE 5%-WATER - 50 ML IVPB SCH (09:37)
[2021-08-21] MEDS: amLODIPine BESYLATE 10 MG TABLET (FP) PO SCH (09:37)
[2021-08-21] MEDS: TIMOLOL 0.5% OPHTHALMIC SOL 5 ML BOTTLE OU SCH ×2 (09:38→21:49)
[2021-08-21] MEDS: HEPARIN NA (PORCINE) 5,000 UNITS/ML 1ML VIAL SQ SCH ×2 (09:43→21:46)
[2021-08-21 10:19] LABS: BASO % 0.8 % (0-2.0); EOS % 3.9 % (0-4.5); HEMATOCRIT 31.5 % (35.4-49); HEMOGLOBIN 10.5 GM/dL (11.7-16.9); LYMPH % 14.4 % (8-40); MCH 31.1 pg (25.7-33.7); MCHC 33.4 g/dl (32.0-35.9); MONO % 10.7 % (3.8-10.2); NEUT % 70.2 % (42.8-82.8); PLATELET COUNT 157 10^3/uL (134-434); RBC 3.39 M/mm3 (4.00-5.60); RDW 17.3 % (11.9-15.9); WHITE BLOOD COUNT 5.4 K/mm3 (4.0-10.0)
[2021-08-21 10:32] LABS: CALCIUM 9.4 mg/dL (8.5-10.1)
[2021-08-21 10:33] LABS: ALBUMIN 3.2 g/dl (3.4-5.0); BLOOD UREA NITROGEN 54.3 mg/dL (7-18); MAGNESIUM 2.4 mg/dL (1.8-2.4)
[2021-08-21 10:36] LABS: CREATININE 2.7 mg/dL (0.55-1.3); PHOSPHOROUS 3.4 mg/dL (2.5-4.9)
[2021-08-21 10:38] LABS: BILIRUBIN,TOTAL 0.4 mg/dL (0.2-1); TOT PROT 6.9 g/dl (6.4-8.2)
[2021-08-21] MEDS: BRIMONIDINE TARTRATE 0.15% OPHTHALMIC 5 ML BOTTLE OU SCH (21:47)
[2021-08-21] MEDS: ROSUVASTATIN CA 20 MG TABLET PO SCH (21:49)
[2021-08-21] MEDS: INSULIN SLIDING SCALE (NOVOLOG) 1 VIAL SQ SCH (21:50)
[2021-08-22] MEDS: ACETAMINOPHEN 325 MG TABLET (FP) PO PRN ×2 (02:11→20:34)
[2021-08-22] MEDS: NYSTATIN POWDER 100,000 UNITS/GM - 15 GM TOPICAL POWDER TP SCH ×3 (06:27→21:19)
[2021-08-22] MEDS: INSULIN SLIDING SCALE (NOVOLOG) 1 VIAL SQ SCH ×4 (06:28→21:18)
[2021-08-22] MEDS: CALCIUM ACETATE 667 MG CAPSULE (FP) PO SCH ×3 (08:40→17:42)
[2021-08-22] MEDS ORDERED: DEXTROSE 5%-WATER - 50 ML IVPB ONE (08:49)
[2021-08-22] MEDS ORDERED: cefTRIAXone SODIUM 1 GM VIAL ONE (08:49)
[2021-08-22] MEDS: CARVEDILOL 6.25 MG TABLET (FP) PO SCH ×2 (09:17→21:18)
[2021-08-22] MEDS: amLODIPine BESYLATE 10 MG TABLET (FP) PO SCH (09:18)
[2021-08-22] MEDS: CLOPIDOGREL BISULFATE 75 MG TABLET (FP) PO SCH (09:19)
[2021-08-22] MEDS: ALLOPURINOL 100 MG TABLET (FP) PO SCH (09:19)
[2021-08-22] MEDS: CEFTRIAXONE 1 GM in DEXTROSE 5%-WATER - 50 ML IVPB SCH (09:19)
[2021-08-22] MEDS: ASPIRIN 81 MG CHEWABLE TABLETS PO SCH (09:19)
[2021-08-22] MEDS: TAMSULOSIN HCL 0.4 MG CAP PO SCH (09:20)
[2021-08-22] MEDS: MIRTAZAPINE 15 MG TABLET (FP) PO SCH (09:21)
[2021-08-22] MEDS: TIMOLOL 0.5% OPHTHALMIC SOL 5 ML BOTTLE OU SCH ×2 (09:26→21:19)
[2021-08-22] MEDS: BRIMONIDINE TARTRATE 0.15% OPHTHALMIC 5 ML BOTTLE OU SCH ×2 (09:26→21:19)
[2021-08-22 09:59] LABS: CALCIUM 9.2 mg/dL (8.5-10.1)
[2021-08-22 10:00] LABS: BLOOD UREA NITROGEN 61.6 mg/dL (7-18)
[2021-08-22 10:03] LABS: CREATININE 3.2 mg/dL (0.55-1.3)
[2021-08-22] MEDS: HEPARIN NA (PORCINE) 5,000 UNITS/ML 1ML VIAL SQ SCH ×2 (10:06→21:18)
[2021-08-22] MEDS: SODIUM CHLORIDE 1,000 ML IV SCH (13:14)
[2021-08-22] MEDS: ROSUVASTATIN CA 20 MG TABLET PO SCH (21:18)
[2021-08-23] MEDS: SODIUM CHLORIDE 1,000 ML IV SCH (01:25)
[2021-08-23] MEDS: INSULIN SLIDING SCALE (NOVOLOG) 1 VIAL SQ SCH ×4 (06:26→21:58)
[2021-08-23] MEDS: NYSTATIN POWDER 100,000 UNITS/GM - 15 GM TOPICAL POWDER TP SCH ×3 (06:26→22:32)
[2021-08-23] MEDS ORDERED: DEXTROSE 5%-WATER - 50 ML IVPB ONE (09:09)
[2021-08-23] MEDS ORDERED: cefTRIAXone SODIUM 1 GM VIAL ONE (09:09)
[2021-08-23] MEDS: TAMSULOSIN HCL 0.4 MG CAP PO SCH (09:13)
[2021-08-23] MEDS: CEFTRIAXONE 1 GM in DEXTROSE 5%-WATER - 50 ML IVPB SCH (09:13)
[2021-08-23] MEDS: CARVEDILOL 6.25 MG TABLET (FP) PO SCH ×2 (09:13→21:50)
[2021-08-23] MEDS: amLODIPine BESYLATE 10 MG TABLET (FP) PO SCH (09:14)
[2021-08-23] MEDS: CLOPIDOGREL BISULFATE 75 MG TABLET (FP) PO SCH (09:14)
[2021-08-23] MEDS: ASPIRIN 81 MG CHEWABLE TABLETS PO SCH (09:14)
[2021-08-23] MEDS: BRIMONIDINE TARTRATE 0.15% OPHTHALMIC 5 ML BOTTLE OU SCH ×2 (09:14→21:59)
[2021-08-23] MEDS: MIRTAZAPINE 15 MG TABLET (FP) PO SCH (09:14)
[2021-08-23] MEDS: CALCIUM ACETATE 667 MG CAPSULE (FP) PO SCH ×3 (09:14→17:02)
[2021-08-23] MEDS: HEPARIN NA (PORCINE) 5,000 UNITS/ML 1ML VIAL SQ SCH ×2 (09:14→21:50)
[2021-08-23] MEDS: ALLOPURINOL 100 MG TABLET (FP) PO SCH (09:14)
[2021-08-23] MEDS: TIMOLOL 0.5% OPHTHALMIC SOL 5 ML BOTTLE OU SCH ×2 (09:15→21:59)
[2021-08-23] MEDS: ROSUVASTATIN CA 20 MG TABLET PO SCH (21:50)
[2021-08-24] MEDS: ACETAMINOPHEN 325 MG TABLET (FP) PO PRN (00:39)
[2021-08-24] MEDS: NYSTATIN POWDER 100,000 UNITS/GM - 15 GM TOPICAL POWDER TP SCH (06:31)
[2021-08-24 09:07] VITALS: BP 134/64; PULSE 72; TEMP 98.4
[2021-08-24] MEDS ORDERED: DEXTROSE 5%-WATER - 50 ML IVPB ONE (09:28)
[2021-08-24] MEDS ORDERED: cefTRIAXone SODIUM 1 GM VIAL ONE (09:28)
[2021-08-24] MEDS: INSULIN SLIDING SCALE (NOVOLOG) 1 VIAL SQ SCH (09:45)
[2021-08-24] MEDS: CALCIUM ACETATE 667 MG CAPSULE (FP) PO SCH (09:45)
[2021-08-24] MEDS: TAMSULOSIN HCL 0.4 MG CAP PO SCH (09:45)
[2021-08-24] MEDS: ASPIRIN 81 MG CHEWABLE TABLETS PO SCH (09:46)
[2021-08-24] MEDS: CARVEDILOL 6.25 MG TABLET (FP) PO SCH (09:46)
[2021-08-24] MEDS: HEPARIN NA (PORCINE) 5,000 UNITS/ML 1ML VIAL SQ SCH (09:46)
[2021-08-24] MEDS: ALLOPURINOL 100 MG TABLET (FP) PO SCH (09:47)
[2021-08-24] MEDS: CLOPIDOGREL BISULFATE 75 MG TABLET (FP) PO SCH (09:47)
[2021-08-24] MEDS: MIRTAZAPINE 15 MG TABLET (FP) PO SCH (09:47)
[2021-08-24] MEDS: CEFTRIAXONE 1 GM in DEXTROSE 5%-WATER - 50 ML IVPB SCH (09:47)
[2021-08-24] MEDS: amLODIPine BESYLATE 10 MG TABLET (FP) PO SCH (10:01)
[2021-08-24] MEDS: BRIMONIDINE TARTRATE 0.15% OPHTHALMIC 5 ML BOTTLE OU SCH (10:01)
[2021-08-24] MEDS: TIMOLOL 0.5% OPHTHALMIC SOL 5 ML BOTTLE OU SCH (10:01)
== END 2021-08-24 11:32 | DRG 153 ==
LOC: JER 10:15 → JERBED 15:56 → J5S 21:25
PROVIDERS: ADMIT Family Medicine; ATTEND Family Medicine
DX: H66.90 Otitis media, unspecified, unspecified ear (principal); I50.32 Chronic diastolic (congestive) heart failure; I13.0 Hypertensive heart and chronic kidney disease with heart failure and stage 1 through stage 4 chronic kidney disease, or unspecified chronic kidney disease; I69.354 Hemiplegia and hemiparesis following cerebral infarction affecting left non-dominant side; N18.4 Chronic kidney disease, stage 4 (severe); N18.9 Chronic kidney disease, unspecified; I25.10 Atherosclerotic heart disease of native coronary artery without angina pectoris; E78.5 Hyperlipidemia, unspecified; E11.22 Type 2 diabetes mellitus with diabetic chronic kidney disease; E11.42 Type 2 diabetes mellitus with diabetic polyneuropathy; N40.0 Benign prostatic hyperplasia without lower urinary tract symptoms
CPT/HCPCS: 36415; 70486-TC; 70490-TC; 71045-TC-FY; 80048; 80053; 81003; 82570; 82962; 83036; 83735; 83880; 84100; 84155; 84156; 84165; 84443; 84484; 85025; 85610; 85730; 86038; 93005; 93010; 99285-25; C9803-CS; J1644; U0003; U0005

== ENCOUNTER 2021-09-26 22:31 | Inpatient (IN) | payer OTHER ==
[2021-09-26] MEDS ORDERED: SODIUM CHLORIDE 1,000 ML IV STA (22:49)
[2021-09-26] MEDS: ALBUTEROL SO4 2.5/IPRATROPIUM 0.5 INH SOL 3 ML VIAL.NEB. NEB SCH ×3 (22:57→23:33)
[2021-09-26] MEDS ORDERED: PIPERACILLIN/TAZOB 3.375 GM 3.375 GM in DEXTROSE 5%-WATER - 50 ML IVPB ONE (23:22)
[2021-09-26] MEDS ORDERED: VANCOMYCIN 1 GM in D5W (PRE-DOCKED) 1,000 MG/250 ML IVPB ONE (23:22)
[2021-09-26] MEDS ORDERED: PIPERACILLIN/TAZOB 3.375 GM 3.375 GM/50 ML BAG IVPB ONE (23:29)
[2021-09-26] MEDS ORDERED: methylPREDNISolone NA SUCC 125 MG/2 ML VIAL IVPUSH ONE (23:33)
[2021-09-27] MEDS ORDERED: methylPREDNISolone NA SUCC 125 MG/2 ML VIAL ONE (00:13)
[2021-09-27] MEDS ORDERED: VANCOMYCIN 1 GRAM (PRE-DOCKED) 1,000 MG/250 ML BAG IVPB ONE (00:31)
[2021-09-27 01:10] LABS: BASO % 0.3 % (0-2.0); EOS % 2.5 % (0-4.5); HEMATOCRIT 21.4 % (35.4-49); HEMOGLOBIN 7.1 GM/dL (11.7-16.9); LYMPH % 6.2 % (8-40); MCH 31.6 pg (25.7-33.7); MCHC 33.2 g/dl (32.0-35.9); MEAN CELL VOLUME 95.3 fl (80-96); MEAN PLT VOLUME 9.7 fl (7.5-11.1); MONO % 9.1 % (3.8-10.2); NEUT % 81.9 % (42.8-82.8); PLATELET COUNT 41 10^3/uL (134-434); RBC 2.25 M/mm3 (4.00-5.60); RDW 20.7 % (11.9-15.9); WHITE BLOOD COUNT 4.3 K/mm3 (4.0-10.0)
[2021-09-27 01:18] LABS: VENOUS BASE EXCESS -6.6 mmol/L (-2-2); VENOUS PCO2 55.4 mmHg (38-52); VENOUS PH 7.2 (7.310-7.410)
[2021-09-27 01:27] LABS: INR 1.08 (0.83-1.09); PROTHROMBIN TIME (PATIENT) 12.4 SEC (9.7-13.0)
[2021-09-27 01:30] LABS: ACTIVATED PTT 42.6 SECONDS (25.2-36.5)
[2021-09-27 01:31] LABS: CALCIUM 8.7 mg/dL (8.5-10.1)
[2021-09-27 01:32] LABS: ALBUMIN 3.1 g/dl (3.4-5.0); BLOOD UREA NITROGEN 98.2 mg/dL (7-18)
[2021-09-27 01:35] LABS: CREATININE 4.6 mg/dL (0.55-1.3)
[2021-09-27] MEDS ORDERED: DEXTROSE 50%-WATER 25 GM/50 ML DISP.SYRIN ONE (01:35)
[2021-09-27 01:36] LABS: BILIRUBIN,TOTAL 0.4 mg/dL (0.2-1); TOT PROT 6.7 g/dl (6.4-8.2)
[2021-09-27] MEDS ORDERED: DEXTROSE 50%-WATER - 25 GM/50 ML VIAL IVPUSH ONE (01:36)
[2021-09-27] MEDS ORDERED: ALBUTEROL SO4 0.083% IH SOL 2.5 MG/3 ML VIAL.NEB. NEB ONE (02:00)
[2021-09-27] MEDS ORDERED: ALBUTEROL SO4 2.5/IPRATROPIUM 0.5 INH SOL 3 ML VIAL.NEB. NEB ONE (02:11)
[2021-09-27 03:32] LABS: VENOUS O2 SATURATION 88.5 % (70-80); VENOUS PCO2 42.6 mmHg (38-52); VENOUS PH 7.255 (7.310-7.410)
[2021-09-27 04:21] LABS: ANISOCYTOSIS 2+; MACROCYTOSIS 1+
[2021-09-27] MEDS ORDERED: HALOPERIDOL DECANOATE 100 MG/ML IM ONE ×2 (04:50→05:04)
[2021-09-27] MEDS ORDERED: HALOPERIDOL LACTATE 5 MG/ML ONE ×2 (04:53→05:05)
[2021-09-27 06:24] LABS: EPI CELLS 33 /uL (0-25.1); HYALINE CASTS 3 /uL (0-3.1); URINE APPEARANCE CLOUDY; URINE BACTERIA 1 /uL (0-1359); URINE BILIRUBIN NEGATIVE (NEGATIVE); URINE COLOR YELLOW; URINE GLUCOSE (UA) NEGATIVE (NEGATIVE); URINE KETONE NEGATIVE (NEGATIVE); URINE LEUK ESTERASE NEGATIVE (NEGATIVE); URINE NITRITE NEGATIVE (NEGATIVE); URINE PROTEIN 2+ (NEGATIVE); URINE RBC 41 /uL (0-23.9); URINE UROBILINOGEN 0.2 mg/dL (0.2-1.0); URINE WBC 14 /uL (0-25.8)
[2021-09-27 06:43] LABS: ARTERIAL BLD GAS O2 SATURATION 94.4 % (95-98); ARTERIAL BLOOD GAS BASE EXCESS -6.4 mmol/L (-2-2); ARTERIAL BLOOD GAS PO2 78.5 mmHg (80-100)
[2021-09-27] MEDS ORDERED: POLYETHYLENE GLYCOL (HEALTHYLAX) 3350 17 GM PACKET PO PRN (07:03)
[2021-09-27] MEDS ORDERED: ACETAMINOPHEN 1000 MG/100 ML BAG IVPB PRN (07:12)
[2021-09-27] MEDS ORDERED: PIPERACILLIN/TAZOB 2.25 GM 2.25 GM in DEXTROSE 5%-WATER - 50 ML IVPB SCH (09:00)
[2021-09-27] MEDS: PIPERACILLIN/TAZOB 2.25 GM 2.25 GM in DEXTROSE 5%-WATER - 50 ML IVPB SCH ×3 (10:30→21:32)
[2021-09-27] MEDS ORDERED: PIPERACILLIN/TAZOB 2.25 GM 2.25 GM/50 ML BAG IVPB ONE ×4 (10:51→21:24)
[2021-09-27 11:17] LABS: HEMATOCRIT 24.2 % (35.4-49); MCH 31.3 pg (25.7-33.7); MCHC 32.8 g/dl (32.0-35.9); MEAN CELL VOLUME 95.5 fl (80-96); MEAN PLT VOLUME 9.9 fl (7.5-11.1); PLATELET COUNT 50 10^3/uL (134-434); RBC 2.54 M/mm3 (4.00-5.60); RDW 19.7 % (11.9-15.9); WHITE BLOOD COUNT 5.8 K/mm3 (4.0-10.0)
[2021-09-27 12:12] LABS: MAGNESIUM 3.6 mg/dL (1.8-2.4)
[2021-09-27 12:13] LABS: CALCIUM 8.7 mg/dL (8.5-10.1)
[2021-09-27 12:15] LABS: CREATININE 4.6 mg/dL (0.55-1.3); PHOSPHOROUS 5.6 mg/dL (2.5-4.9)
[2021-09-27] MEDS ORDERED: SODIUM CHLORIDE 0.45% 1,000 ML IV SCH (12:45)
[2021-09-27 12:49] LABS: ANISOCYTOSIS 2+; MACROCYTOSIS 2+; OVALOCYTE 2+
[2021-09-27] MEDS ORDERED: FUROSEMIDE 40 MG/4 ML INJECTABLE VIAL IVPUSH ONE (14:28)
[2021-09-27] MEDS ORDERED: SODIUM ZIRCONIUM CYCLOSILICATE (LOKELMA) 5 GM PACKET ONE ×2 (14:39→23:45)
[2021-09-27] MEDS ORDERED: FUROSEMIDE 40 MG/4 ML INJECTABLE VIAL ONE (14:40)
[2021-09-27] MEDS: SODIUM ZIRCONIUM CYCLOSILICATE (LOKELMA) 5 GM PACKET PO SCH (14:57)
[2021-09-27] MEDS ORDERED: DEXTROSE 50%-WATER - 25 GM/50 ML VIAL IVPUSH PRN (17:24)
[2021-09-27] MEDS ORDERED: FOLIC ACID 1 MG TABLET (FP) PO SCH (17:30)
[2021-09-27] MEDS ORDERED: FOLIC ACID 1 MG TABLET (FP) ONE (18:05)
[2021-09-27] MEDS ORDERED: TIMOLOL 0.5% OPHTHALMIC SOL 5 ML BOTTLE OU SCH (22:00)
[2021-09-27] MEDS ORDERED: CARVEDILOL 12.5 MG TABLET (FP) PO SCH (22:00)
[2021-09-27] MEDS ORDERED: ASCORBIC ACID 500 MG TABLET (FP) PO SCH (22:00)
[2021-09-27] MEDS ORDERED: ROSUVASTATIN CA 20 MG TABLET PO SCH (22:00)
[2021-09-27] MEDS ORDERED: ASCORBIC ACID 500 MG TABLET (FP) ONE (23:45)
[2021-09-27] MEDS ORDERED: CARVEDILOL 12.5 MG TABLET (FP) ONE (23:45)
[2021-09-28] MEDS: INSULIN SLIDING SCALE (NOVOLOG) 1 VIAL SQ SCH ×5 (00:21→21:33)
[2021-09-28] MEDS: NYSTATIN POWDER 100,000 UNITS/GM - 15 GM TOPICAL POWDER TP SCH ×3 (00:25→21:33)
[2021-09-28] MEDS: SODIUM ZIRCONIUM CYCLOSILICATE (LOKELMA) 5 GM PACKET PO SCH ×3 (00:25→21:32)
[2021-09-28] MEDS ORDERED: VANCOMYCIN/WATER FOR INJ (PEG) 1,000 MG/200 ML BAG IVPB SCH (01:00)
[2021-09-28] MEDS ORDERED: VANCOMYCIN 1 GM/200 ML PREMIX BAG IVPB SCH (01:00)
[2021-09-28] MEDS ORDERED: PIPERACILLIN/TAZOBACTAM 2.25 GM VIAL IVPB ONE ×3 (02:29→17:30)
[2021-09-28] MEDS ORDERED: DEXTROSE 5%-WATER - 50 ML IVPB ONE ×3 (02:30→17:30)
[2021-09-28] MEDS: PIPERACILLIN/TAZOB 2.25 GM 2.25 GM in DEXTROSE 5%-WATER - 50 ML IVPB SCH ×2 (02:43→17:48)
[2021-09-28] MEDS ORDERED: DEXTROSE 50%-WATER - 25 GM/50 ML VIAL IVPUSH PRN (07:42)
[2021-09-28] MEDS ORDERED: POLYETHYLENE GLYCOL (HEALTHYLAX) 3350 17 GM PACKET PO PRN (07:42)
[2021-09-28 07:48] LABS: HEMATOCRIT 21.9 % (35.4-49); HEMOGLOBIN 7.3 GM/dL (11.7-16.9); MCH 31.8 pg (25.7-33.7); MCHC 33.2 g/dl (32.0-35.9); MEAN CELL VOLUME 95.6 fl (80-96); MEAN PLT VOLUME 9.7 fl (7.5-11.1); PLATELET COUNT 56 10^3/uL (134-434); RDW 19.8 % (11.9-15.9); WHITE BLOOD COUNT 7.4 K/mm3 (4.0-10.0)
[2021-09-28] MEDS ORDERED: ACETAMINOPHEN 325 MG TABLET (FP) PO PRN (08:00)
[2021-09-28 08:02] LABS: ALBUMIN 2.8 g/dl (3.4-5.0); BLOOD UREA NITROGEN 103.8 mg/dL (7-18)
[2021-09-28 08:04] LABS: CREATININE 4.9 mg/dL (0.55-1.3)
[2021-09-28 08:06] LABS: BILIRUBIN,TOTAL 0.5 mg/dL (0.2-1); TOT PROT 6.2 g/dl (6.4-8.2)
[2021-09-28 08:50] LABS: ANISOCYTOSIS 1+; MACROCYTOSIS 1+
[2021-09-28] MEDS ORDERED: PIPERACILLIN/TAZOB 2.25 GM 2.25 GM in DEXTROSE 5%-WATER - 50 ML IVPB SCH (09:00)
[2021-09-28 09:07] LABS: MAGNESIUM 3.6 mg/dL (1.8-2.4)
[2021-09-28 09:11] LABS: PHOSPHOROUS 6.4 mg/dL (2.5-4.9)
[2021-09-28] MEDS ORDERED: FUROSEMIDE 40 MG/4 ML INJECTABLE VIAL IVPUSH ONE (09:30)
[2021-09-28] MEDS: TAMSULOSIN HCL 0.4 MG CAP PO SCH (09:42)
[2021-09-28] MEDS: ASPIRIN 81 MG CHEWABLE TABLETS PO SCH (09:43)
[2021-09-28] MEDS: CLOPIDOGREL BISULFATE 75 MG TABLET (FP) PO SCH (09:43)
[2021-09-28] MEDS: ASCORBIC ACID 500 MG TABLET (FP) PO SCH ×2 (09:44→21:32)
[2021-09-28] MEDS: CARVEDILOL 12.5 MG TABLET (FP) PO SCH ×2 (09:44→21:32)
[2021-09-28] MEDS: FOLIC ACID 1 MG TABLET (FP) PO SCH (09:59)
[2021-09-28] MEDS ORDERED: CLOPIDOGREL BISULFATE 75 MG TABLET (FP) PO SCH (10:00)
[2021-09-28] MEDS ORDERED: TAMSULOSIN HCL 0.4 MG CAP PO SCH (10:00)
[2021-09-28] MEDS ORDERED: FAMOTIDINE 20 MG TABLET PO SCH ×2 (10:00)
[2021-09-28] MEDS ORDERED: amLODIPine BESYLATE 10 MG TABLET (FP) PO SCH ×2 (10:00)
[2021-09-28] MEDS ORDERED: FAMOTIDINE 40 MG TABLET PO SCH (10:00)
[2021-09-28] MEDS ORDERED: ASPIRIN 81 MG CHEWABLE TABLETS PO SCH (10:00)
[2021-09-28] MEDS: MUPIROCIN 2% TOPICAL OINTMENT FOR DECOLONIZATION NS SCH ×2 (10:34→21:33)
[2021-09-28] MEDS: CHLORHEXIDINE GLUCONATE 4% CLEANSER FOR DECOLONIZATION TP SCH (21:33)
[2021-09-28] MEDS ORDERED: ROSUVASTATIN CA 20 MG TABLET PO SCH (22:00)
[2021-09-28] MEDS: TIMOLOL 0.5% OPHTHALMIC SOL 5 ML BOTTLE OU SCH (22:35)
[2021-09-29] MEDS ORDERED: VANCOMYCIN 1 GM/200 ML PREMIX BAG IVPB SCH (01:00)
[2021-09-29] MEDS ORDERED: PIPERACILLIN/TAZOBACTAM 2.25 GM VIAL IVPB ONE ×3 (01:11→16:51)
[2021-09-29] MEDS ORDERED: DEXTROSE 5%-WATER - 50 ML IVPB ONE ×3 (01:11→16:51)
[2021-09-29] MEDS: PIPERACILLIN/TAZOB 2.25 GM 2.25 GM in DEXTROSE 5%-WATER - 50 ML IVPB SCH ×3 (01:19→17:09)
[2021-09-29] MEDS: NYSTATIN POWDER 100,000 UNITS/GM - 15 GM TOPICAL POWDER TP SCH ×4 (06:06→21:27)
[2021-09-29] MEDS: INSULIN SLIDING SCALE (NOVOLOG) 1 VIAL SQ SCH ×4 (06:06→21:27)
[2021-09-29 07:03] LABS: HEMOGLOBIN 8.7 GM/dL (11.7-16.9); MCH 31.3 pg (25.7-33.7); MCHC 33.6 g/dl (32.0-35.9); PLATELET COUNT 69 10^3/uL (134-434); RBC 2.79 M/mm3 (4.00-5.60); RDW 20.7 % (11.9-15.9); WHITE BLOOD COUNT 8.2 K/mm3 (4.0-10.0)
[2021-09-29 07:22] LABS: CHLORIDE 113 mmol/L (98-107); SODIUM 142 mmol/L (136-145)
[2021-09-29 07:24] LABS: CALCIUM 8.3 mg/dL (8.5-10.1)
[2021-09-29 07:25] LABS: ANION GAP 6 MMOL/L (8-16); CO2 23 mmol/L (21-32); GLUCOSE,RANDOM 137 mg/dL (74-106); MAGNESIUM 3.6 mg/dL (1.8-2.4)
[2021-09-29 07:28] LABS: CREATININE 5.1 mg/dL (0.55-1.3); PHOSPHOROUS 5.6 mg/dL (2.5-4.9); SGOT/AST 16 U/L (15-37); SGPT/ALT 36 U/L (13-61)
[2021-09-29 07:29] LABS: BILIRUBIN,TOTAL 0.8 mg/dL (0.2-1); TOT PROT 6.5 g/dl (6.4-8.2)
[2021-09-29 07:30] LABS: ALK PHOS 82 U/L (45-117)
[2021-09-29 07:31] LABS: BLOOD UREA NITROGEN 118.6 mg/dL (7-18)
[2021-09-29 08:03] LABS: BASO % 0.2 % (0-2.0); EOS % 0.5 % (0-4.5); HEMOGLOBIN 8.6 GM/dL (11.7-16.9); LYMPH % 4.3 % (8-40); MCH 30.9 pg (25.7-33.7); MCHC 33.3 g/dl (32.0-35.9); MEAN CELL VOLUME 92.9 fl (80-96); MEAN PLT VOLUME 9.3 fl (7.5-11.1); MONO % 6.7 % (3.8-10.2); NEUT % 88.3 % (42.8-82.8); PLATELET COUNT 74 10^3/uL (134-434); RDW 21.4 % (11.9-15.9)
[2021-09-29] MEDS: TIMOLOL 0.5% OPHTHALMIC SOL 5 ML BOTTLE OU SCH ×3 (08:12→21:28)
[2021-09-29] MEDS: CARVEDILOL 12.5 MG TABLET (FP) PO SCH ×2 (09:47→21:27)
[2021-09-29] MEDS: PANTOPRAZOLE 40 MG TABLET PO SCH (09:47)
[2021-09-29] MEDS: ASPIRIN 81 MG CHEWABLE TABLETS PO SCH (09:47)
[2021-09-29] MEDS: ASCORBIC ACID 500 MG TABLET (FP) PO SCH ×2 (09:48→21:27)
[2021-09-29] MEDS: TAMSULOSIN HCL 0.4 MG CAP PO SCH (09:48)
[2021-09-29] MEDS: FOLIC ACID 1 MG TABLET (FP) PO SCH (09:48)
[2021-09-29] MEDS: CLOPIDOGREL BISULFATE 75 MG TABLET (FP) PO SCH (09:48)
[2021-09-29] MEDS: MUPIROCIN 2% TOPICAL OINTMENT FOR DECOLONIZATION NS SCH ×2 (10:30→21:27)
[2021-09-29] MEDS: methylPREDNISolone NA SUCC 40 MG/1 ML VIAL IVPUSH SCH ×2 (11:29→17:09)
[2021-09-29] MEDS ORDERED: SODIUM CHLORIDE 1,000 ML IV SCH (12:00)
[2021-09-29] MEDS: ALBUTEROL SO4 2.5/IPRATROPIUM 0.5 INH SOL 3 ML VIAL.NEB. NEB SCH ×3 (12:01→20:35)
[2021-09-29] MEDS ORDERED: HEPARIN NA (PORCINE) 5,000 UNITS/ML 1ML VIAL SQ SCH (14:00)
[2021-09-29] MEDS: CHLORHEXIDINE GLUCONATE 4% CLEANSER FOR DECOLONIZATION TP SCH (21:27)
[2021-09-29] MEDS ORDERED: ROSUVASTATIN CA 10 MG TABLET PO SCH (22:00)
[2021-09-30] MEDS ORDERED: PIPERACILLIN/TAZOBACTAM 2.25 GM VIAL IVPB ONE ×3 (01:31→16:51)
[2021-09-30] MEDS ORDERED: DEXTROSE 5%-WATER - 50 ML IVPB ONE ×3 (01:31→16:51)
[2021-09-30] MEDS: PIPERACILLIN/TAZOB 2.25 GM 2.25 GM in DEXTROSE 5%-WATER - 50 ML IVPB SCH ×3 (01:48→17:40)
[2021-09-30] MEDS: methylPREDNISolone NA SUCC 40 MG/1 ML VIAL IVPUSH SCH ×3 (01:48→17:40)
[2021-09-30] MEDS: NYSTATIN POWDER 100,000 UNITS/GM - 15 GM TOPICAL POWDER TP SCH ×3 (05:53→23:18)
[2021-09-30] MEDS: INSULIN SLIDING SCALE (NOVOLOG) 1 VIAL SQ SCH ×4 (06:29→23:18)
[2021-09-30 08:19] LABS: HEMATOCRIT 27.8 % (35.4-49); HEMOGLOBIN 9.2 GM/dL (11.7-16.9); MCH 31.3 pg (25.7-33.7); MCHC 33.1 g/dl (32.0-35.9); MEAN CELL VOLUME 94.5 fl (80-96); MEAN PLT VOLUME 9.3 fl (7.5-11.1); PLATELET COUNT 74 10^3/uL (134-434); RBC 2.94 M/mm3 (4.00-5.60); WHITE BLOOD COUNT 6.4 K/mm3 (4.0-10.0)
[2021-09-30] MEDS: ALBUTEROL SO4 2.5/IPRATROPIUM 0.5 INH SOL 3 ML VIAL.NEB. NEB SCH ×4 (08:24→20:43)
[2021-09-30] MEDS: FOLIC ACID 1 MG TABLET (FP) PO SCH (09:35)
[2021-09-30] MEDS: MUPIROCIN 2% TOPICAL OINTMENT FOR DECOLONIZATION NS SCH (09:35)
[2021-09-30] MEDS: TAMSULOSIN HCL 0.4 MG CAP PO SCH (09:35)
[2021-09-30] MEDS: ASPIRIN 81 MG CHEWABLE TABLETS PO SCH (09:35)
[2021-09-30] MEDS: CARVEDILOL 12.5 MG TABLET (FP) PO SCH ×2 (09:35→23:17)
[2021-09-30] MEDS: TIMOLOL 0.5% OPHTHALMIC SOL 5 ML BOTTLE OU SCH ×2 (09:36→23:18)
[2021-09-30] MEDS: PANTOPRAZOLE 40 MG TABLET PO SCH (09:36)
[2021-09-30] MEDS: CLOPIDOGREL BISULFATE 75 MG TABLET (FP) PO SCH (09:36)
[2021-09-30] MEDS: ASCORBIC ACID 500 MG TABLET (FP) PO SCH ×2 (09:36→23:17)
[2021-09-30 10:19] LABS: PLATELET ESTIMATE DECREASED
[2021-09-30 13:10] LABS: CHLORIDE 116 mmol/L (98-107); SODIUM 146 mmol/L (136-145)
[2021-09-30 13:12] LABS: CALCIUM 8.2 mg/dL (8.5-10.1)
[2021-09-30 13:13] LABS: ANION GAP 9 MMOL/L (8-16); CO2 21 mmol/L (21-32); GLUCOSE,RANDOM 200 mg/dL (74-106); MAGNESIUM 3.7 mg/dL (1.8-2.4)
[2021-09-30 13:15] LABS: CREATININE 4.9 mg/dL (0.55-1.3); SGOT/AST 15 U/L (15-37)
[2021-09-30 13:16] LABS: BILIRUBIN,TOTAL 0.6 mg/dL (0.2-1); PHOSPHOROUS 5.8 mg/dL (2.5-4.9); SGPT/ALT 36 U/L (13-61); TOT PROT 6.5 g/dl (6.4-8.2)
[2021-09-30 13:18] LABS: ALK PHOS 78 U/L (45-117)
[2021-09-30 13:22] LABS: BLOOD UREA NITROGEN 128.4 mg/dL (7-18)
[2021-09-30] MEDS ORDERED: POLYETHYLENE GLYCOL (HEALTHYLAX) 3350 17 GM PACKET PO PRN (17:24)
[2021-09-30] MEDS ORDERED: DEXTROSE 50%-WATER - 25 GM/50 ML VIAL IVPUSH PRN (17:24)
[2021-09-30] MEDS ORDERED: MUPIROCIN 2% TOPICAL OINTMENT FOR DECOLONIZATION NS SCH (22:00)
[2021-09-30] MEDS ORDERED: CHLORHEXIDINE GLUCONATE 4% CLEANSER FOR DECOLONIZATION TP SCH (22:00)
[2021-09-30] MEDS: ROSUVASTATIN CA 10 MG TABLET PO SCH (23:17)
[2021-10-01] MEDS: NYSTATIN POWDER 100,000 UNITS/GM - 15 GM TOPICAL POWDER TP SCH ×4 (00:07→23:09)
[2021-10-01] MEDS: TIMOLOL 0.5% OPHTHALMIC SOL 5 ML BOTTLE OU SCH ×3 (00:08→23:09)
[2021-10-01] MEDS ORDERED: DEXTROSE 5%-WATER - 50 ML IVPB ONE ×3 (01:17→18:28)
[2021-10-01] MEDS ORDERED: PIPERACILLIN/TAZOBACTAM 2.25 GM VIAL IVPB ONE ×3 (01:17→18:28)
[2021-10-01] MEDS: PIPERACILLIN/TAZOB 2.25 GM 2.25 GM in DEXTROSE 5%-WATER - 50 ML IVPB SCH ×3 (02:25→18:48)
[2021-10-01] MEDS: methylPREDNISolone NA SUCC 40 MG/1 ML VIAL IVPUSH SCH ×3 (02:25→18:48)
[2021-10-01] MEDS: INSULIN SLIDING SCALE (NOVOLOG) 1 VIAL SQ SCH ×4 (06:09→23:21)
[2021-10-01] MEDS: ALBUTEROL SO4 2.5/IPRATROPIUM 0.5 INH SOL 3 ML VIAL.NEB. NEB SCH ×4 (08:35→20:58)
[2021-10-01 10:01] LABS: HEMATOCRIT 25.1 % (35.4-49); HEMOGLOBIN 8.4 GM/dL (11.7-16.9); MCH 31.5 pg (25.7-33.7); MCHC 33.5 g/dl (32.0-35.9); PLATELET COUNT 88 10^3/uL (134-434); RBC 2.67 M/mm3 (4.00-5.60); RDW 21.2 % (11.9-15.9); WHITE BLOOD COUNT 7.3 K/mm3 (4.0-10.0)
[2021-10-01] MEDS: TAMSULOSIN HCL 0.4 MG CAP PO SCH (11:08)
[2021-10-01] MEDS: ASCORBIC ACID 500 MG TABLET (FP) PO SCH ×2 (11:19→23:08)
[2021-10-01] MEDS: CLOPIDOGREL BISULFATE 75 MG TABLET (FP) PO SCH (11:19)
[2021-10-01] MEDS: ASPIRIN 81 MG CHEWABLE TABLETS PO SCH (11:19)
[2021-10-01] MEDS: PANTOPRAZOLE 40 MG TABLET PO SCH (11:19)
[2021-10-01] MEDS: FOLIC ACID 1 MG TABLET (FP) PO SCH (11:20)
[2021-10-01] MEDS: CARVEDILOL 12.5 MG TABLET (FP) PO SCH ×2 (11:20→23:08)
[2021-10-01 11:56] LABS: ANISOCYTOSIS 2+; MACROCYTOSIS 1+
[2021-10-01 12:05] LABS: CHLORIDE 120 mmol/L (98-107); SODIUM 150 mmol/L (136-145)
[2021-10-01 12:09] LABS: ANION GAP 9 MMOL/L (8-16); CALCIUM 8.3 mg/dL (8.5-10.1); CO2 21 mmol/L (21-32); GLUCOSE,RANDOM 195 mg/dL (74-106)
[2021-10-01 12:11] LABS: URIC ACID 6.2 mg/dL (2.6-7.2)
[2021-10-01 12:13] LABS: CREATININE 5.4 mg/dL (0.55-1.3); PHOSPHOROUS 5.5 mg/dL (2.5-4.9); SGOT/AST 12 U/L (15-37); SGPT/ALT 33 U/L (13-61)
[2021-10-01 12:14] LABS: TOT PROT 6.1 g/dl (6.4-8.2)
[2021-10-01 12:15] LABS: ALK PHOS 67 U/L (45-117)
[2021-10-01 12:20] LABS: BLOOD UREA NITROGEN 135.3 mg/dL (7-18)
[2021-10-01] MEDS ORDERED: INSULIN SLIDING SCALE (NOVOLOG) 1 VIAL SQ ONE (12:20)
[2021-10-01 17:09] LABS: INR 1.17 (0.83-1.09); PROTHROMBIN TIME (PATIENT) 13.5 SEC (9.7-13.0)
[2021-10-01 17:12] LABS: ACTIVATED PTT 27.7 SECONDS (25.2-36.5)
[2021-10-01] MEDS: DEXTROSE 5%-WATER - 1,000 ML IV SCH (17:32)
[2021-10-01] MEDS: ROSUVASTATIN CA 10 MG TABLET PO SCH (23:08)
[2021-10-02] MEDS ORDERED: DEXTROSE 5%-WATER - 50 ML IVPB ONE ×3 (02:09→16:31)
[2021-10-02] MEDS ORDERED: PIPERACILLIN/TAZOBACTAM 2.25 GM VIAL IVPB ONE ×3 (02:09→16:31)
[2021-10-02] MEDS: PIPERACILLIN/TAZOB 2.25 GM 2.25 GM in DEXTROSE 5%-WATER - 50 ML IVPB SCH ×3 (02:11→17:40)
[2021-10-02] MEDS: methylPREDNISolone NA SUCC 40 MG/1 ML VIAL IVPUSH SCH ×3 (02:11→17:40)
[2021-10-02] MEDS: NYSTATIN POWDER 100,000 UNITS/GM - 15 GM TOPICAL POWDER TP SCH ×3 (05:48→23:22)
[2021-10-02] MEDS: ALBUTEROL SO4 2.5/IPRATROPIUM 0.5 INH SOL 3 ML VIAL.NEB. NEB SCH ×4 (08:08→20:05)
[2021-10-02] MEDS: TAMSULOSIN HCL 0.4 MG CAP PO SCH (08:59)
[2021-10-02] MEDS: DEXTROSE 5%-WATER - 1,000 ML IV SCH (09:36)
[2021-10-02] MEDS: ASCORBIC ACID 500 MG TABLET (FP) PO SCH ×2 (09:39→23:21)
[2021-10-02] MEDS: PANTOPRAZOLE 40 MG TABLET PO SCH (09:39)
[2021-10-02] MEDS: TIMOLOL 0.5% OPHTHALMIC SOL 5 ML BOTTLE OU SCH ×2 (09:39→23:22)
[2021-10-02] MEDS: ASPIRIN 81 MG CHEWABLE TABLETS PO SCH (09:39)
[2021-10-02] MEDS: CLOPIDOGREL BISULFATE 75 MG TABLET (FP) PO SCH (09:39)
[2021-10-02] MEDS: FOLIC ACID 1 MG TABLET (FP) PO SCH (09:39)
[2021-10-02] MEDS: CARVEDILOL 12.5 MG TABLET (FP) PO SCH ×2 (09:39→23:21)
[2021-10-02 09:47] LABS: HEMATOCRIT 26.4 % (35.4-49); HEMOGLOBIN 8.6 GM/dL (11.7-16.9); MCH 31.2 pg (25.7-33.7); MCHC 32.6 g/dl (32.0-35.9); MEAN CELL VOLUME 95.5 fl (80-96); MEAN PLT VOLUME 9.2 fl (7.5-11.1); PLATELET COUNT 103 10^3/uL (134-434); RBC 2.77 M/mm3 (4.00-5.60); RDW 20.4 % (11.9-15.9); WHITE BLOOD COUNT 7.9 K/mm3 (4.0-10.0)
[2021-10-02 10:10] LABS: CHLORIDE 117 mmol/L (98-107); SODIUM 148 mmol/L (136-145)
[2021-10-02 10:12] LABS: ALBUMIN 2.8 g/dl (3.4-5.0); ANION GAP 9 MMOL/L (8-16); CALCIUM 7.9 mg/dL (8.5-10.1); CO2 21 mmol/L (21-32); GLUCOSE,RANDOM 274 mg/dL (74-106); MAGNESIUM 3.6 mg/dL (1.8-2.4)
[2021-10-02 10:14] LABS: CREATININE 5.6 mg/dL (0.55-1.3); PHOSPHOROUS 5.3 mg/dL (2.5-4.9); SGPT/ALT 33 U/L (13-61)
[2021-10-02 10:16] LABS: SGOT/AST 13 U/L (15-37)
[2021-10-02 10:17] LABS: TOT PROT 6.3 g/dl (6.4-8.2)
[2021-10-02 10:18] LABS: ALK PHOS 62 U/L (45-117)
[2021-10-02 10:23] LABS: BILIRUBIN,TOTAL 0.6 mg/dL (0.2-1); BLOOD UREA NITROGEN 132.7 mg/dL (7-18)
[2021-10-02 10:46] LABS: PLATELET ESTIMATE SLT DECREASE
[2021-10-02] MEDS: INSULIN SLIDING SCALE (NOVOLOG) 1 VIAL SQ SCH ×3 (11:47→23:22)
[2021-10-02] MEDS ORDERED: DEXTROSE 5%-WATER - 1,000 ML IV SCH (18:15)
[2021-10-02] MEDS ORDERED: INSULIN (LEVEMIR) 100 UNITS/ML UNITS SQ SCH (22:00)
[2021-10-02] MEDS: ROSUVASTATIN CA 10 MG TABLET PO SCH (23:21)
[2021-10-03] MEDS ORDERED: DEXTROSE 5%-WATER - 50 ML IVPB ONE ×3 (01:46→14:01)
[2021-10-03] MEDS ORDERED: PIPERACILLIN/TAZOBACTAM 2.25 GM VIAL IVPB ONE ×3 (01:46→14:01)
[2021-10-03] MEDS: PIPERACILLIN/TAZOB 2.25 GM 2.25 GM in DEXTROSE 5%-WATER - 50 ML IVPB SCH ×3 (02:00→17:08)
[2021-10-03] MEDS: methylPREDNISolone NA SUCC 40 MG/1 ML VIAL IVPUSH SCH ×3 (02:00→21:52)
[2021-10-03] MEDS: INSULIN SLIDING SCALE (NOVOLOG) 1 VIAL SQ SCH ×4 (06:38→21:53)
[2021-10-03] MEDS: NYSTATIN POWDER 100,000 UNITS/GM - 15 GM TOPICAL POWDER TP SCH ×3 (06:38→21:54)
[2021-10-03] MEDS: ALBUTEROL SO4 2.5/IPRATROPIUM 0.5 INH SOL 3 ML VIAL.NEB. NEB SCH ×4 (07:48→20:35)
[2021-10-03] MEDS: CLOPIDOGREL BISULFATE 75 MG TABLET (FP) PO SCH (10:54)
[2021-10-03] MEDS: PANTOPRAZOLE 40 MG TABLET PO SCH (10:54)
[2021-10-03] MEDS: ASCORBIC ACID 500 MG TABLET (FP) PO SCH ×2 (10:54→21:52)
[2021-10-03] MEDS: ASPIRIN 81 MG CHEWABLE TABLETS PO SCH (10:54)
[2021-10-03] MEDS: TAMSULOSIN HCL 0.4 MG CAP PO SCH (10:54)
[2021-10-03] MEDS: CARVEDILOL 12.5 MG TABLET (FP) PO SCH ×2 (10:54→21:52)
[2021-10-03] MEDS: FOLIC ACID 1 MG TABLET (FP) PO SCH (10:54)
[2021-10-03] MEDS: TIMOLOL 0.5% OPHTHALMIC SOL 5 ML BOTTLE OU SCH ×2 (10:55→21:54)
[2021-10-03] MEDS ORDERED: INSULIN SLIDING SCALE (NOVOLOG) 1 VIAL SQ ONE (11:29)
[2021-10-03] MEDS: ROSUVASTATIN CA 10 MG TABLET PO SCH (21:52)
[2021-10-03] MEDS: INSULIN (LEVEMIR) 100 UNITS/ML UNITS SQ SCH (21:52)
[2021-10-04] MEDS ORDERED: PIPERACILLIN/TAZOBACTAM 2.25 GM VIAL IVPB ONE ×3 (00:57→16:15)
[2021-10-04] MEDS ORDERED: DEXTROSE 5%-WATER - 50 ML IVPB ONE ×3 (00:58→16:15)
[2021-10-04] MEDS: PIPERACILLIN/TAZOB 2.25 GM 2.25 GM in DEXTROSE 5%-WATER - 50 ML IVPB SCH ×3 (01:25→17:13)
[2021-10-04] MEDS: INSULIN SLIDING SCALE (NOVOLOG) 1 VIAL SQ SCH ×5 (06:48→23:18)
[2021-10-04] MEDS: NYSTATIN POWDER 100,000 UNITS/GM - 15 GM TOPICAL POWDER TP SCH ×3 (06:48→23:19)
[2021-10-04] MEDS: ALBUTEROL SO4 2.5/IPRATROPIUM 0.5 INH SOL 3 ML VIAL.NEB. NEB SCH ×4 (07:39→20:05)
[2021-10-04] MEDS: TAMSULOSIN HCL 0.4 MG CAP PO SCH (08:45)
[2021-10-04 08:58] LABS: HEMATOCRIT 26.6 % (35.4-49); HEMOGLOBIN 8.8 GM/dL (11.7-16.9); MCH 31.3 pg (25.7-33.7); MCHC 33.3 g/dl (32.0-35.9); MEAN PLT VOLUME 9.1 fl (7.5-11.1); PLATELET COUNT 106 10^3/uL (134-434); RBC 2.83 M/mm3 (4.00-5.60); WHITE BLOOD COUNT 8.3 K/mm3 (4.0-10.0)
[2021-10-04 09:07] LABS: CHLORIDE 116 mmol/L (98-107); SODIUM 148 mmol/L (136-145)
[2021-10-04 09:24] LABS: ALBUMIN 2.8 g/dl (3.4-5.0)
[2021-10-04 09:25] LABS: GLUCOSE,RANDOM 321 mg/dL (74-106)
[2021-10-04 09:26] LABS: ANION GAP 11 MMOL/L (8-16); CO2 21 mmol/L (21-32); CREATININE 5.2 mg/dL (0.55-1.3); SGOT/AST 21 U/L (15-37); TOT PROT 6.2 g/dl (6.4-8.2)
[2021-10-04 09:28] LABS: ALK PHOS 62 U/L (45-117); BILIRUBIN,TOTAL 0.5 mg/dL (0.2-1); SGPT/ALT 49 U/L (13-61)
[2021-10-04 09:29] LABS: BLOOD UREA NITROGEN 141.7 mg/dL (7-18)
[2021-10-04] MEDS: methylPREDNISolone NA SUCC 40 MG/1 ML VIAL IVPUSH SCH ×2 (10:00→11:52)
[2021-10-04] MEDS: CLOPIDOGREL BISULFATE 75 MG TABLET (FP) PO SCH (10:49)
[2021-10-04] MEDS: ASPIRIN 81 MG CHEWABLE TABLETS PO SCH (10:49)
[2021-10-04] MEDS: PANTOPRAZOLE 40 MG TABLET PO SCH (10:49)
[2021-10-04] MEDS: ASCORBIC ACID 500 MG TABLET (FP) PO SCH ×2 (10:49→23:18)
[2021-10-04] MEDS: CARVEDILOL 12.5 MG TABLET (FP) PO SCH ×2 (10:49→23:18)
[2021-10-04] MEDS: FOLIC ACID 1 MG TABLET (FP) PO SCH (10:49)
[2021-10-04] MEDS: TIMOLOL 0.5% OPHTHALMIC SOL 5 ML BOTTLE OU SCH ×2 (10:50→23:19)
[2021-10-04 13:23] LABS: PLATELET ESTIMATE ADEQUATE
[2021-10-04] MEDS: SODIUM CHLORIDE 0.45% 1,000 ML IV SCH (14:11)
[2021-10-04] MEDS ORDERED: INSULIN SLIDING SCALE (NOVOLOG) 1 VIAL SQ ONE (18:45)
[2021-10-04] MEDS: INSULIN (LEVEMIR) 100 UNITS/ML UNITS SQ SCH (23:18)
[2021-10-04] MEDS: ROSUVASTATIN CA 10 MG TABLET PO SCH (23:18)
[2021-10-05] MEDS ORDERED: PIPERACILLIN/TAZOBACTAM 2.25 GM VIAL IVPB ONE ×3 (01:32→17:32)
[2021-10-05] MEDS ORDERED: DEXTROSE 5%-WATER - 50 ML IVPB ONE ×3 (01:32→17:32)
[2021-10-05] MEDS: PIPERACILLIN/TAZOB 2.25 GM 2.25 GM in DEXTROSE 5%-WATER - 50 ML IVPB SCH ×3 (02:00→17:33)
[2021-10-05] MEDS: SODIUM CHLORIDE 0.45% 1,000 ML IV SCH (04:03)
[2021-10-05] MEDS ORDERED: FAMOTIDINE 20 MG/50 ML IVPB 20 MG/50 ML MG IVPB ONE (06:17)
[2021-10-05] MEDS: INSULIN SLIDING SCALE (NOVOLOG) 1 VIAL SQ SCH ×4 (06:27→22:18)
[2021-10-05] MEDS: NYSTATIN POWDER 100,000 UNITS/GM - 15 GM TOPICAL POWDER TP SCH ×3 (06:27→22:20)
[2021-10-05] MEDS: ALBUTEROL SO4 2.5/IPRATROPIUM 0.5 INH SOL 3 ML VIAL.NEB. NEB SCH ×3 (08:15→15:25)
[2021-10-05] MEDS: TAMSULOSIN HCL 0.4 MG CAP PO SCH (08:38)
[2021-10-05] MEDS: PANTOPRAZOLE 40 MG TABLET PO SCH (10:30)
[2021-10-05] MEDS: ASCORBIC ACID 500 MG TABLET (FP) PO SCH ×2 (10:30→22:17)
[2021-10-05] MEDS: CLOPIDOGREL BISULFATE 75 MG TABLET (FP) PO SCH (10:30)
[2021-10-05] MEDS: TIMOLOL 0.5% OPHTHALMIC SOL 5 ML BOTTLE OU SCH ×2 (10:30→22:19)
[2021-10-05] MEDS: methylPREDNISolone NA SUCC 40 MG/1 ML VIAL IVPUSH SCH (10:30)
[2021-10-05] MEDS: ASPIRIN 81 MG CHEWABLE TABLETS PO SCH (10:30)
[2021-10-05] MEDS: CARVEDILOL 12.5 MG TABLET (FP) PO SCH ×2 (10:30→22:17)
[2021-10-05] MEDS: FOLIC ACID 1 MG TABLET (FP) PO SCH (10:30)
[2021-10-05 11:10] LABS: CHLORIDE 115 mmol/L (98-107); SODIUM 147 mmol/L (136-145)
[2021-10-05 11:20] LABS: ALBUMIN 2.8 g/dl (3.4-5.0); ANION GAP 9 MMOL/L (8-16); CALCIUM 7.7 mg/dL (8.5-10.1); CO2 23 mmol/L (21-32); GLUCOSE,RANDOM 249 mg/dL (74-106)
[2021-10-05 11:23] LABS: PHOSPHOROUS 5.1 mg/dL (2.5-4.9); SGOT/AST 27 U/L (15-37); SGPT/ALT 69 U/L (13-61)
[2021-10-05 11:25] LABS: BILIRUBIN,TOTAL 0.6 mg/dL (0.2-1)
[2021-10-05 11:26] LABS: ALK PHOS 59 U/L (45-117)
[2021-10-05 11:30] LABS: BLOOD UREA NITROGEN 136.4 mg/dL (7-18)
[2021-10-05] MEDS ORDERED: SENNOSIDES 8.6MG TABLET (FP) PO PRN (17:37)
[2021-10-05 18:10] LABS: FREE KAPPA,SERUM 89.3 mg/L (3.3-19.4)
[2021-10-05] MEDS: ROSUVASTATIN CA 10 MG TABLET PO SCH (22:17)
[2021-10-05] MEDS: INSULIN (LEVEMIR) 100 UNITS/ML UNITS SQ SCH (22:17)
[2021-10-06] MEDS ORDERED: PIPERACILLIN/TAZOBACTAM 2.25 GM VIAL IVPB ONE ×3 (02:02→16:37)
[2021-10-06] MEDS ORDERED: DEXTROSE 5%-WATER - 50 ML IVPB ONE ×3 (02:03→16:37)
[2021-10-06] MEDS: PIPERACILLIN/TAZOB 2.25 GM 2.25 GM in DEXTROSE 5%-WATER - 50 ML IVPB SCH ×3 (02:20→17:19)
[2021-10-06] MEDS: NYSTATIN POWDER 100,000 UNITS/GM - 15 GM TOPICAL POWDER TP SCH ×3 (06:20→22:12)
[2021-10-06] MEDS: INSULIN SLIDING SCALE (NOVOLOG) 1 VIAL SQ SCH ×4 (06:43→22:08)
[2021-10-06] MEDS: TAMSULOSIN HCL 0.4 MG CAP PO SCH (08:19)
[2021-10-06 09:10] LABS: CHLORIDE 118 mmol/L (98-107); SODIUM 149 mmol/L (136-145)
[2021-10-06 09:15] LABS: CALCIUM 7.8 mg/dL (8.5-10.1)
[2021-10-06 09:16] LABS: ALBUMIN 2.6 g/dl (3.4-5.0); ANION GAP 8 MMOL/L (8-16); CO2 22 mmol/L (21-32); GLUCOSE,RANDOM 190 mg/dL (74-106); MAGNESIUM 3.4 mg/dL (1.8-2.4)
[2021-10-06 09:18] LABS: CREATININE 4.5 mg/dL (0.55-1.3); SGPT/ALT 70 U/L (13-61)
[2021-10-06 09:19] LABS: SGOT/AST 26 U/L (15-37)
[2021-10-06 09:20] LABS: BILIRUBIN,TOTAL 0.6 mg/dL (0.2-1)
[2021-10-06 09:21] LABS: ALK PHOS 56 U/L (45-117)
[2021-10-06 09:22] LABS: PHOSPHOROUS 5.1 mg/dL (2.5-4.9)
[2021-10-06 09:23] LABS: TOT PROT 5.6 g/dl (6.4-8.2)
[2021-10-06 09:28] LABS: BLOOD UREA NITROGEN 129.1 mg/dL (7-18)
[2021-10-06] MEDS: methylPREDNISolone NA SUCC 40 MG/1 ML VIAL IVPUSH SCH (09:58)
[2021-10-06] MEDS: CLOPIDOGREL BISULFATE 75 MG TABLET (FP) PO SCH (10:11)
[2021-10-06] MEDS: CARVEDILOL 12.5 MG TABLET (FP) PO SCH ×2 (10:11→22:05)
[2021-10-06] MEDS: PANTOPRAZOLE 40 MG TABLET PO SCH (10:11)
[2021-10-06] MEDS: ASCORBIC ACID 500 MG TABLET (FP) PO SCH ×2 (10:11→22:04)
[2021-10-06] MEDS: ASPIRIN 81 MG CHEWABLE TABLETS PO SCH (10:11)
[2021-10-06] MEDS: FOLIC ACID 1 MG TABLET (FP) PO SCH (10:11)
[2021-10-06] MEDS: TIMOLOL 0.5% OPHTHALMIC SOL 5 ML BOTTLE OU SCH ×2 (10:12→22:12)
[2021-10-06] MEDS: ROSUVASTATIN CA 10 MG TABLET PO SCH (22:05)
[2021-10-06] MEDS: INSULIN (LEVEMIR) 100 UNITS/ML UNITS SQ SCH (22:05)
[2021-10-07] MEDS ORDERED: DEXTROSE 5%-WATER - 50 ML IVPB ONE ×3 (01:15→17:07)
[2021-10-07] MEDS ORDERED: PIPERACILLIN/TAZOBACTAM 2.25 GM VIAL IVPB ONE ×3 (01:15→17:07)
[2021-10-07] MEDS: PIPERACILLIN/TAZOB 2.25 GM 2.25 GM in DEXTROSE 5%-WATER - 50 ML IVPB SCH ×3 (01:51→17:19)
[2021-10-07] MEDS: INSULIN SLIDING SCALE (NOVOLOG) 1 VIAL SQ SCH ×4 (06:18→23:10)
[2021-10-07] MEDS: NYSTATIN POWDER 100,000 UNITS/GM - 15 GM TOPICAL POWDER TP SCH ×3 (06:20→23:10)
[2021-10-07] MEDS: TAMSULOSIN HCL 0.4 MG CAP PO SCH (08:37)
[2021-10-07 08:53] LABS: BASO % 0.1 % (0-2.0); EOS % 0.4 % (0-4.5); HEMATOCRIT 28.1 % (35.4-49); HEMOGLOBIN 9.3 GM/dL (11.7-16.9); LYMPH % 3.4 % (8-40); MCH 30.8 pg (25.7-33.7); MEAN CELL VOLUME 93.3 fl (80-96); MEAN PLT VOLUME 9.5 fl (7.5-11.1); NEUT % 89.1 % (42.8-82.8); PLATELET COUNT 92 10^3/uL (134-434); RBC 3.02 M/mm3 (4.00-5.60); RDW 19.7 % (11.9-15.9); WHITE BLOOD COUNT 10.2 K/mm3 (4.0-10.0)
[2021-10-07 09:08] LABS: CHLORIDE 121 mmol/L (98-107); SODIUM 152 mmol/L (136-145)
[2021-10-07 09:13] LABS: CALCIUM 7.8 mg/dL (8.5-10.1)
[2021-10-07 09:14] LABS: ALBUMIN 2.6 g/dl (3.4-5.0); ANION GAP 6 MMOL/L (8-16); CO2 25 mmol/L (21-32); GLUCOSE,RANDOM 179 mg/dL (74-106)
[2021-10-07 09:16] LABS: CREATININE 4.3 mg/dL (0.55-1.3); SGPT/ALT 83 U/L (13-61)
[2021-10-07 09:17] LABS: BILIRUBIN,TOTAL 0.6 mg/dL (0.2-1); SGOT/AST 26 U/L (15-37)
[2021-10-07 09:18] LABS: TOT PROT 5.7 g/dl (6.4-8.2)
[2021-10-07 09:19] LABS: ALK PHOS 60 U/L (45-117)
[2021-10-07 09:23] LABS: BLOOD UREA NITROGEN 118.7 mg/dL (7-18)
[2021-10-07] MEDS: predniSONE 20 MG TABLET (UD) PO SCH (10:13)
[2021-10-07] MEDS: TIMOLOL 0.5% OPHTHALMIC SOL 5 ML BOTTLE OU SCH ×2 (10:15→23:11)
[2021-10-07] MEDS: ASCORBIC ACID 500 MG TABLET (FP) PO SCH ×2 (10:15→23:10)
[2021-10-07] MEDS: CLOPIDOGREL BISULFATE 75 MG TABLET (FP) PO SCH (10:15)
[2021-10-07] MEDS: FOLIC ACID 1 MG TABLET (FP) PO SCH (10:15)
[2021-10-07] MEDS: CARVEDILOL 12.5 MG TABLET (FP) PO SCH ×2 (10:15→23:09)
[2021-10-07] MEDS: PANTOPRAZOLE 40 MG TABLET PO SCH (10:15)
[2021-10-07] MEDS: ASPIRIN 81 MG CHEWABLE TABLETS PO SCH (10:15)
[2021-10-07 15:18] VITALS: BMI 37.8
[2021-10-07] MEDS: DEXTROSE 5%-1/3 NS - 500 ML IV SCH (17:17)
[2021-10-07] MEDS: ROSUVASTATIN CA 10 MG TABLET PO SCH (23:10)
[2021-10-07] MEDS: INSULIN (LEVEMIR) 100 UNITS/ML UNITS SQ SCH (23:47)
[2021-10-08] MEDS: DEXTROSE 5%-1/3 NS - 500 ML IV SCH ×2 (00:49→08:50)
[2021-10-08] MEDS ORDERED: PIPERACILLIN/TAZOBACTAM 2.25 GM VIAL IVPB ONE ×3 (00:55→17:09)
[2021-10-08] MEDS ORDERED: DEXTROSE 5%-WATER - 50 ML IVPB ONE ×3 (00:55→17:10)
[2021-10-08] MEDS: PIPERACILLIN/TAZOB 2.25 GM 2.25 GM in DEXTROSE 5%-WATER - 50 ML IVPB SCH ×3 (02:09→17:14)
[2021-10-08] MEDS: NYSTATIN POWDER 100,000 UNITS/GM - 15 GM TOPICAL POWDER TP SCH ×3 (06:16→23:04)
[2021-10-08] MEDS: INSULIN SLIDING SCALE (NOVOLOG) 1 VIAL SQ SCH ×4 (06:16→23:01)
[2021-10-08 11:44] LABS: CALCIUM 7.6 mg/dL (8.5-10.1)
[2021-10-08 11:45] LABS: BLOOD UREA NITROGEN 100.9 mg/dL (7-18); MAGNESIUM 3.1 mg/dL (1.8-2.4)
[2021-10-08 11:48] LABS: CREATININE 3.7 mg/dL (0.55-1.3); PHOSPHOROUS 4.2 mg/dL (2.5-4.9)
[2021-10-08] MEDS: CLOPIDOGREL BISULFATE 75 MG TABLET (FP) PO SCH (12:04)
[2021-10-08] MEDS: ASCORBIC ACID 500 MG TABLET (FP) PO SCH ×2 (12:04→23:03)
[2021-10-08] MEDS: TAMSULOSIN HCL 0.4 MG CAP PO SCH (12:04)
[2021-10-08] MEDS: FOLIC ACID 1 MG TABLET (FP) PO SCH (12:05)
[2021-10-08] MEDS: CARVEDILOL 12.5 MG TABLET (FP) PO SCH ×2 (12:05→23:04)
[2021-10-08] MEDS: ASPIRIN 81 MG CHEWABLE TABLETS PO SCH (12:05)
[2021-10-08] MEDS: PANTOPRAZOLE 40 MG TABLET PO SCH (12:05)
[2021-10-08] MEDS: predniSONE 20 MG TABLET (UD) PO SCH (12:05)
[2021-10-08] MEDS: TIMOLOL 0.5% OPHTHALMIC SOL 5 ML BOTTLE OU SCH ×2 (12:06→23:04)
[2021-10-08] MEDS ORDERED: INSULIN SLIDING SCALE (NOVOLOG) 1 VIAL SQ ONE (13:00)
[2021-10-08] MEDS ORDERED: DEXTROSE 5%-WATER - 1,000 ML IV SCH (13:00)
[2021-10-08] MEDS: INSULIN (LEVEMIR) 100 UNITS/ML UNITS SQ SCH (23:01)
[2021-10-08] MEDS: ROSUVASTATIN CA 10 MG TABLET PO SCH (23:03)
[2021-10-09] MEDS ORDERED: PIPERACILLIN/TAZOBACTAM 2.25 GM VIAL IVPB ONE ×3 (00:51→18:01)
[2021-10-09] MEDS ORDERED: DEXTROSE 5%-WATER - 50 ML IVPB ONE ×3 (00:52→18:01)
[2021-10-09] MEDS: PIPERACILLIN/TAZOB 2.25 GM 2.25 GM in DEXTROSE 5%-WATER - 50 ML IVPB SCH ×3 (01:45→18:09)
[2021-10-09] MEDS: NYSTATIN POWDER 100,000 UNITS/GM - 15 GM TOPICAL POWDER TP SCH ×3 (06:49→23:08)
[2021-10-09] MEDS: INSULIN SLIDING SCALE (NOVOLOG) 1 VIAL SQ SCH ×4 (06:49→23:10)
[2021-10-09] MEDS: TAMSULOSIN HCL 0.4 MG CAP PO SCH (08:35)
[2021-10-09] MEDS: FOLIC ACID 1 MG TABLET (FP) PO SCH (10:30)
[2021-10-09] MEDS: ASPIRIN 81 MG CHEWABLE TABLETS PO SCH (10:30)
[2021-10-09] MEDS: PANTOPRAZOLE 40 MG TABLET PO SCH (10:30)
[2021-10-09] MEDS: CARVEDILOL 12.5 MG TABLET (FP) PO SCH ×2 (10:30→23:06)
[2021-10-09] MEDS: CLOPIDOGREL BISULFATE 75 MG TABLET (FP) PO SCH (10:30)
[2021-10-09] MEDS: ASCORBIC ACID 500 MG TABLET (FP) PO SCH ×2 (10:31→23:06)
[2021-10-09] MEDS: TIMOLOL 0.5% OPHTHALMIC SOL 5 ML BOTTLE OU SCH ×2 (10:31→23:09)
[2021-10-09] MEDS: predniSONE 20 MG TABLET (UD) PO SCH (10:31)
[2021-10-09] MEDS: ROSUVASTATIN CA 10 MG TABLET PO SCH (23:06)
[2021-10-09] MEDS: INSULIN (LEVEMIR) 100 UNITS/ML UNITS SQ SCH (23:10)
[2021-10-10] MEDS ORDERED: DEXTROSE 5%-WATER - 50 ML IVPB ONE ×3 (01:02→17:04)
[2021-10-10] MEDS ORDERED: PIPERACILLIN/TAZOBACTAM 2.25 GM VIAL IVPB ONE ×3 (01:02→17:04)
[2021-10-10] MEDS: PIPERACILLIN/TAZOB 2.25 GM 2.25 GM in DEXTROSE 5%-WATER - 50 ML IVPB SCH ×3 (01:25→17:24)
[2021-10-10] MEDS: NYSTATIN POWDER 100,000 UNITS/GM - 15 GM TOPICAL POWDER TP SCH ×3 (06:29→23:12)
[2021-10-10] MEDS: INSULIN SLIDING SCALE (NOVOLOG) 1 VIAL SQ SCH ×4 (06:30→23:10)
[2021-10-10] MEDS: TAMSULOSIN HCL 0.4 MG CAP PO SCH (08:05)
[2021-10-10 08:41] LABS: BLOOD UREA NITROGEN 85.3 mg/dL (7-18)
[2021-10-10 08:45] LABS: CREATININE 3.5 mg/dL (0.55-1.3)
[2021-10-10] MEDS: CLOPIDOGREL BISULFATE 75 MG TABLET (FP) PO SCH (09:54)
[2021-10-10] MEDS: ASPIRIN 81 MG CHEWABLE TABLETS PO SCH (09:54)
[2021-10-10] MEDS: FOLIC ACID 1 MG TABLET (FP) PO SCH (09:55)
[2021-10-10] MEDS: predniSONE 20 MG TABLET (UD) PO SCH (09:55)
[2021-10-10] MEDS: CARVEDILOL 12.5 MG TABLET (FP) PO SCH ×2 (09:55→23:06)
[2021-10-10] MEDS: ASCORBIC ACID 500 MG TABLET (FP) PO SCH ×2 (09:55→23:06)
[2021-10-10] MEDS: PANTOPRAZOLE 40 MG TABLET PO SCH (09:55)
[2021-10-10] MEDS: TIMOLOL 0.5% OPHTHALMIC SOL 5 ML BOTTLE OU SCH ×2 (09:55→23:13)
[2021-10-10] MEDS ORDERED: predniSONE 10 MG TABLET (UD) PO SCH (12:25)
[2021-10-10] MEDS: SODIUM CHLORIDE 0.45% 1,000 ML IV SCH (18:08)
[2021-10-10] MEDS: ROSUVASTATIN CA 10 MG TABLET PO SCH (23:06)
[2021-10-10] MEDS: INSULIN (LEVEMIR) 100 UNITS/ML UNITS SQ SCH (23:07)
[2021-10-11] MEDS ORDERED: DEXTROSE 5%-WATER - 50 ML IVPB ONE ×3 (01:52→17:07)
[2021-10-11] MEDS ORDERED: PIPERACILLIN/TAZOBACTAM 2.25 GM VIAL IVPB ONE ×3 (01:52→17:07)
[2021-10-11] MEDS: PIPERACILLIN/TAZOB 2.25 GM 2.25 GM in DEXTROSE 5%-WATER - 50 ML IVPB SCH ×3 (02:08→17:17)
[2021-10-11] MEDS: INSULIN SLIDING SCALE (NOVOLOG) 1 VIAL SQ SCH ×4 (07:00→22:59)
[2021-10-11] MEDS: NYSTATIN POWDER 100,000 UNITS/GM - 15 GM TOPICAL POWDER TP SCH ×3 (07:00→23:00)
[2021-10-11] MEDS: TAMSULOSIN HCL 0.4 MG CAP PO SCH (07:53)
[2021-10-11] MEDS: CARVEDILOL 12.5 MG TABLET (FP) PO SCH ×2 (10:47→22:56)
[2021-10-11] MEDS: PANTOPRAZOLE 40 MG TABLET PO SCH (10:47)
[2021-10-11] MEDS: CLOPIDOGREL BISULFATE 75 MG TABLET (FP) PO SCH (10:47)
[2021-10-11] MEDS: ASCORBIC ACID 500 MG TABLET (FP) PO SCH ×2 (10:48→22:56)
[2021-10-11] MEDS: ASPIRIN 81 MG CHEWABLE TABLETS PO SCH (10:48)
[2021-10-11] MEDS: FOLIC ACID 1 MG TABLET (FP) PO SCH (10:48)
[2021-10-11] MEDS: TIMOLOL 0.5% OPHTHALMIC SOL 5 ML BOTTLE OU SCH ×2 (10:48→23:00)
[2021-10-11] MEDS: SODIUM CHLORIDE 0.45% 1,000 ML IV SCH (17:16)
[2021-10-11 18:34] LABS: BLOOD UREA NITROGEN 74.3 mg/dL (7-18); CALCIUM 7.7 mg/dL (8.5-10.1)
[2021-10-11 18:38] LABS: CREATININE 3.6 mg/dL (0.55-1.3)
[2021-10-11] MEDS: ROSUVASTATIN CA 10 MG TABLET PO SCH (22:56)
[2021-10-11] MEDS: INSULIN (LEVEMIR) 100 UNITS/ML UNITS SQ SCH (22:56)
[2021-10-12] MEDS: NYSTATIN POWDER 100,000 UNITS/GM - 15 GM TOPICAL POWDER TP SCH ×2 (06:56→13:09)
[2021-10-12] MEDS: INSULIN SLIDING SCALE (NOVOLOG) 1 VIAL SQ SCH ×2 (06:56→11:57)
[2021-10-12] MEDS ORDERED: predniSONE 20 MG TABLET (UD) PO SCH (09:00)
[2021-10-12 09:45] LABS: BASO % 0.2 % (0-2.0); EOS % 2.2 % (0-4.5); HEMATOCRIT 24.1 % (35.4-49); LYMPH % 8.5 % (8-40); MCH 30.9 pg (25.7-33.7); MCHC 33.3 g/dl (32.0-35.9); MEAN CELL VOLUME 92.7 fl (80-96); MEAN PLT VOLUME 10.6 fl (7.5-11.1); MONO % 7.5 % (3.8-10.2); NEUT % 81.6 % (42.8-82.8); PLATELET COUNT 68 10^3/uL (134-434); RDW 18.6 % (11.9-15.9); WHITE BLOOD COUNT 5.9 K/mm3 (4.0-10.0)
[2021-10-12 10:06] LABS: CALCIUM 7.8 mg/dL (8.5-10.1)
[2021-10-12 10:07] LABS: ALBUMIN 2.3 g/dl (3.4-5.0); BLOOD UREA NITROGEN 71.2 mg/dL (7-18)
[2021-10-12 10:10] LABS: BILIRUBIN,TOTAL 0.5 mg/dL (0.2-1); CREATININE 3.4 mg/dL (0.55-1.3)
[2021-10-12] MEDS: TAMSULOSIN HCL 0.4 MG CAP PO SCH (10:16)
[2021-10-12] MEDS: PANTOPRAZOLE 40 MG TABLET PO SCH (10:17)
[2021-10-12] MEDS: FOLIC ACID 1 MG TABLET (FP) PO SCH (10:17)
[2021-10-12] MEDS: CARVEDILOL 12.5 MG TABLET (FP) PO SCH (10:17)
[2021-10-12] MEDS: ASCORBIC ACID 500 MG TABLET (FP) PO SCH (10:17)
[2021-10-12] MEDS: ASPIRIN 81 MG CHEWABLE TABLETS PO SCH (10:17)
[2021-10-12] MEDS: CLOPIDOGREL BISULFATE 75 MG TABLET (FP) PO SCH (10:17)
[2021-10-12] MEDS: TIMOLOL 0.5% OPHTHALMIC SOL 5 ML BOTTLE OU SCH (10:18)
[2021-10-12] MEDS ORDERED: INSULIN SLIDING SCALE (NOVOLOG) 1 VIAL SQ ONE (11:07)
[2021-10-12 11:34] VITALS: BP 154/70; PULSE 68; TEMP 97.2
[2021-10-12] MEDS ORDERED: ALBUTEROL SO4 2.5/IPRATROPIUM 0.5 INH SOL 3 ML VIAL.NEB. NEB SCH (12:00)
== END 2021-10-12 14:00 | DRG 871 ==
LOC: JER 22:31 → JERBED 09-27 00:31 → JICU 09-28 00:24 → J5S 09-30 16:41
PROVIDERS: ADMIT Hospitalist; ATTEND Internal Medicine
PROC: 30233N1 Transfusion of Nonautologous Red Blood Cells into Peripheral Vein, Percutaneous Approach (ICD-10-PCS; principal; 2021-09-27)
DX: A41.89 Other specified sepsis (principal); J18.9 Pneumonia, unspecified organism; J96.01 Acute respiratory failure with hypoxia; G93.41 Metabolic encephalopathy; I69.354 Hemiplegia and hemiparesis following cerebral infarction affecting left non-dominant side; I13.0 Hypertensive heart and chronic kidney disease with heart failure and stage 1 through stage 4 chronic kidney disease, or unspecified chronic kidney disease; N18.4 Chronic kidney disease, stage 4 (severe); I50.32 Chronic diastolic (congestive) heart failure; J44.1 Chronic obstructive pulmonary disease with (acute) exacerbation; E87.2 Acidosis; N17.9 Acute kidney failure, unspecified; E87.0 Hyperosmolality and hypernatremia; E83.39 Other disorders of phosphorus metabolism; I25.10 Atherosclerotic heart disease of native coronary artery without angina pectoris; E11.42 Type 2 diabetes mellitus with diabetic polyneuropathy; E78.5 Hyperlipidemia, unspecified; J44.9 Chronic obstructive pulmonary disease, unspecified; H54.8 Legal blindness, as defined in USA; D64.9 Anemia, unspecified; E11.22 Type 2 diabetes mellitus with diabetic chronic kidney disease; E66.9 Obesity, unspecified; Z68.38 Body mass index [BMI] 38.0-38.9, adult; D69.6 Thrombocytopenia, unspecified; E87.5 Hyperkalemia; F41.9 Anxiety disorder, unspecified; R31.0 Gross hematuria; Z79.4 Long term (current) use of insulin
CPT/HCPCS: 0241U-QW; 36415; 36430; 36600; 70450-TC; 70551-TC; 71045-TC-FY; 76700-TC; 80048; 80053; 81003; 82272; 82553; 82570; 82728; 82784; 82803; 82962; 83010; 83540; 83550; 83605; 83615; 83735; 83883; 84100; 84155; 84165; 84300; 84443; 84484; 84550; 85025; 85027; 85045; 85610; 85730; 86140; 86334; 86850; 86900; 86901; 86922; 87040; 87086; 87899; 93005; 93010; 94640; 97162-GP; 99285-25; C9803-CS; G0480; P9058; U0003; U0005

== ENCOUNTER 2021-11-23 10:55 | Emergency (ER) | payer OTHER ==
[2021-11-23 11:10] VITALS: BMI 36.0
[2021-11-23] MEDS ORDERED: ACETAMINOPHEN 1000 MG/100 ML BAG IVPB ONE (11:43)
[2021-11-23] MEDS ORDERED: ACETAMINOPHEN INJECTION 100 ML IVPB ONE (11:56)
[2021-11-23 12:09] LABS: HEMATOCRIT 20.3 % (35.4-49); MCH 32.3 pg (25.7-33.7); MCHC 33.3 g/dl (32.0-35.9); MEAN CELL VOLUME 97.3 fl (80-96); MEAN PLT VOLUME 7.7 fl (7.5-11.1); PLATELET COUNT 187.4 10^3/uL (134-434); RBC 2.09 10^6/uL (4.00-5.60); RDW 17.3 % (11.9-15.9); WHITE BLOOD COUNT 5.6 10^3/uL (4.0-10.8)
[2021-11-23 12:12] LABS: HEMOGLOBIN 6.8 G/dL (11.7-16.9)
[2021-11-23 12:19] LABS: ALBUMIN 2.6 g/dl (3.4-5.0); BILIRUBIN,TOTAL 0.5 mg/dl (0.2-1); CALCIUM 8.5 mg/dl (8.5-10); CREATININE 2.4 mg/dl (0.55-1.3); TOT PROT 5.5 g/dl (6.4-8.2)
[2021-11-23 17:02] VITALS: RESP 16
[2021-11-23 20:06] VITALS: BP 177/77; PULSE 80; TEMP 97.5
== END 2021-11-23 20:42 | disposition home or self-care (01) ==
LOC: FER 10:55
PROC: 30233H1 Transfusion of Nonautologous Whole Blood into Peripheral Vein, Percutaneous Approach (ICD-10-PCS; principal; 2021-11-23)
PROC: 3E0333Z Introduction of Anti-inflammatory into Peripheral Vein, Percutaneous Approach (ICD-10-PCS; 2021-11-23)
DX: D64.9 Anemia, unspecified (principal)
CPT/HCPCS: 36415; 36430; 72131-TC; 80053; 82272; 85027; 86850; 86900; 86901; 86922; 99284-25; P9058

== ENCOUNTER 2022-05-19 13:56 | Inpatient (IN) | payer OTHER ==
[2022-05-19 16:15] LABS: VENOUS BASE EXCESS -10.6 mmol/L (-2-2); VENOUS O2 SATURATION 22.9 % (70-80); VENOUS PCO2 39.8 mmHg (38-52); VENOUS PH 7.228 (7.310-7.410)
[2022-05-19 16:19] LABS: HEMATOCRIT 24.5 % (35.4-49); MCH 33.8 pg (25.7-33.7); MCHC 32.9 g/dl (32.0-35.9); MEAN CELL VOLUME 102.8 fl (80-96); PLATELET COUNT 273 10^3/uL (134-434); RBC 2.38 M/mm3 (4.00-5.60); RDW 15.5 % (11.9-15.9); WHITE BLOOD COUNT 19.5 K/mm3 (4.0-10.0)
[2022-05-19] MEDS ORDERED: ACETAMINOPHEN 1000 MG/100 ML BAG IVPB ONE (16:21)
[2022-05-19 16:22] LABS: INR 1.25 (0.83-1.09); PROTHROMBIN TIME (PATIENT) 14.4 SEC (9.7-13.0)
[2022-05-19] MEDS ORDERED: LACTATED RINGERS SOLUTION 1000 ML INFUS.BAG IV ONE ×2 (16:22→20:53)
[2022-05-19 16:25] LABS: ACTIVATED PTT 30.6 SECONDS (25.2-36.5)
[2022-05-19] MEDS ORDERED: ACETAMINOPHEN INJECTION 100 ML IVPB ONE (16:30)
[2022-05-19] MEDS ORDERED: VANCOMYCIN 1 GM in D5W (PRE-DOCKED) 1,000 MG/250 ML IVPB ONE (16:30)
[2022-05-19] MEDS ORDERED: PIPERACILLIN/TAZOB 3.375 GM 3.375 GM in DEXTROSE 5%-WATER - 50 ML IVPB ONE (16:31)
[2022-05-19 16:36] LABS: CHLORIDE 104 mmol/L (98-107); SODIUM 133 mmol/L (136-145)
[2022-05-19 16:38] LABS: CALCIUM 8.6 mg/dL (8.5-10.1); GLUCOSE,RANDOM 150 mg/dL (74-106)
[2022-05-19 16:39] LABS: ALBUMIN 2.2 g/dl (3.4-5.0); ANION GAP 12 MMOL/L (8-16); BLOOD UREA NITROGEN 78.5 mg/dL (7-18); CO2 18 mmol/L (21-32)
[2022-05-19 16:42] LABS: CREATININE 5.1 mg/dL (0.55-1.3); SGOT/AST 18 U/L (15-37); SGPT/ALT 35 U/L (13-61)
[2022-05-19 16:43] LABS: BILIRUBIN,TOTAL 0.4 mg/dL (0.2-1); TOT PROT 5.6 g/dl (6.4-8.2)
[2022-05-19] MEDS ORDERED: VANCOMYCIN/WATER FOR INJ (PEG) 1,000 MG/200 ML BAG IVPB ONE (16:43)
[2022-05-19] MEDS ORDERED: PIPERACILLIN/TAZOB 3.375 GM 3.375 GM/50 ML BAG IVPB ONE (16:43)
[2022-05-19 16:45] LABS: ALK PHOS 103 U/L (45-117)
[2022-05-19 21:40] LABS: URINE APPEARANCE TURBID; URINE BILIRUBIN NEGATIVE (NEGATIVE); URINE COLOR YELLOW; URINE GLUCOSE (UA) NEGATIVE (NEGATIVE); URINE KETONE TRACE (NEGATIVE); URINE LEUK ESTERASE 3+ (NEGATIVE); URINE NITRITE NEGATIVE (NEGATIVE); URINE PROTEIN 3+ (NEGATIVE); URINE UROBILINOGEN 0.2 mg/dL (0.2-1.0)
[2022-05-19 21:49] LABS: BLOOD UREA NITROGEN 80.6 mg/dL (7-18); CALCIUM 8.1 mg/dL (8.5-10.1)
[2022-05-19 21:52] LABS: CREATININE 5.4 mg/dL (0.55-1.3)
[2022-05-19 21:54] LABS: BILIRUBIN,TOTAL 0.4 mg/dL (0.2-1); TOT PROT 5.2 g/dl (6.4-8.2)
[2022-05-19 22:58] LABS: EPI CELLS 3 /uL (0-25.1); HYALINE CASTS 9 /uL (0-3.1); URINE BACTERIA 424 /uL (0-1359); URINE RBC 16 /uL (0-23.9); URINE WBC 2759 /uL (0-25.8)
[2022-05-20] MEDS: PIPERACILLIN/TAZOB 2.25 GM 2.25 GM in DEXTROSE 5%-WATER - 50 ML IVPB SCH ×3 (04:11→19:10)
[2022-05-20 07:22] LABS: HEMATOCRIT 23.2 % (35.4-49); HEMOGLOBIN 7.4 GM/dL (11.7-16.9); MCH 32.8 pg (25.7-33.7); MEAN CELL VOLUME 102.5 fl (80-96); MEAN PLT VOLUME 7.5 fl (7.5-11.1); PLATELET COUNT 266 10^3/uL (134-434); RBC 2.26 M/mm3 (4.00-5.60); WHITE BLOOD COUNT 20.8 K/mm3 (4.0-10.0)
[2022-05-20 07:46] LABS: CALCIUM 8.2 mg/dL (8.5-10.1)
[2022-05-20 07:47] LABS: ALBUMIN 2.1 g/dl (3.4-5.0); BLOOD UREA NITROGEN 86.4 mg/dL (7-18)
[2022-05-20 07:50] LABS: CREATININE 5.5 mg/dL (0.55-1.3)
[2022-05-20 07:51] LABS: BILIRUBIN,TOTAL 0.4 mg/dL (0.2-1)
[2022-05-20 07:52] LABS: TOT PROT 5.3 g/dl (6.4-8.2)
[2022-05-20 09:35] LABS: ANISOCYTOSIS 2+; MACROCYTOSIS 1+
[2022-05-20] MEDS ORDERED: ALBUTEROL SO4 0.083% IH SOL 2.5 MG/3 ML VIAL.NEB. NEB PRN (12:57)
[2022-05-20] MEDS ORDERED: IRON SUCROSE INJECTION 200 MG in SODIUM CHLORIDE 90 ML IVPB ONE (15:00)
[2022-05-20] MEDS: LACTATED RINGERS SOLUTION 1,000 ML/1,000 ML INFUS.BAG IV SCH (16:46)
[2022-05-20] MEDS ORDERED: VANCOMYCIN 500 MG in DEXTROSE 5%-WATER - 100 ML IVPB SCH (17:30)
[2022-05-20] MEDS: PANTOPRAZOLE SODIUM 40 MG VIAL IVPUSH SCH (22:04)
[2022-05-21] MEDS ORDERED: VANCOMYCIN 250 MG/5 ML ORAL SOLUTION PO SCH
[2022-05-21] MEDS ORDERED: VANCOMYCIN 500 MG in DEXTROSE 5%-WATER 100 ML IVPB ONE (00:53)
[2022-05-21] MEDS: PIPERACILLIN/TAZOB 2.25 GM 2.25 GM in DEXTROSE 5%-WATER - 50 ML IVPB SCH ×3 (02:17→17:29)
[2022-05-21] MEDS: LACTATED RINGERS SOLUTION 1,000 ML/1,000 ML INFUS.BAG IV SCH ×2 (08:50→17:30)
[2022-05-21] MEDS: PANTOPRAZOLE SODIUM 40 MG VIAL IVPUSH SCH ×2 (09:23→22:02)
[2022-05-21] MEDS ORDERED: IRON SUCROSE INJECTION 200 MG in SODIUM CHLORIDE 90 ML IVPB ONE (10:00)
[2022-05-21] MEDS: VANCOMYCIN 250 MG/5 ML ORAL SOLUTION PO SCH ×2 (17:29→23:24)
[2022-05-21] MEDS ORDERED: VANCOMYCIN 500 MG in DEXTROSE 5%-WATER - 100 ML IVPB SCH (17:30)
[2022-05-21 20:17] LABS: CALCIUM 8.8 mg/dL (8.5-10.1)
[2022-05-21 20:21] LABS: CREATININE 0.9 mg/dL (0.55-1.3)
[2022-05-21 20:23] LABS: BILIRUBIN,TOTAL 0.3 mg/dL (0.2-1); TOT PROT 5.6 g/dl (6.4-8.2)
[2022-05-21 20:36] LABS: ALBUMIN 2.8 g/dl (3.4-5.0)
[2022-05-21] MEDS: ACETAMINOPHEN 325 MG TABLET (FP) PO PRN (22:03)
[2022-05-21] MEDS ORDERED: LIDOCAINE 5% TOPICAL PATCH TP ONE (23:34)
[2022-05-22] MEDS: PIPERACILLIN/TAZOB 2.25 GM 2.25 GM in DEXTROSE 5%-WATER - 50 ML IVPB SCH ×2 (02:28→09:56)
[2022-05-22] MEDS: VANCOMYCIN 250 MG/5 ML ORAL SOLUTION PO SCH ×6 (06:05→23:38)
[2022-05-22 08:27] LABS: HEMATOCRIT 24.1 % (35.4-49); HEMOGLOBIN 8.1 GM/dL (11.7-16.9); MCH 32.6 pg (25.7-33.7); MCHC 33.4 g/dl (32.0-35.9); MEAN CELL VOLUME 97.5 fl (80-96); MEAN PLT VOLUME 7.3 fl (7.5-11.1); PLATELET COUNT 285 10^3/uL (134-434); RBC 2.47 M/mm3 (4.00-5.60); RDW 17.4 % (11.9-15.9); WHITE BLOOD COUNT 16.2 K/mm3 (4.0-10.0)
[2022-05-22 08:44] LABS: CREATININE 5.4 mg/dL (0.55-1.3)
[2022-05-22 08:46] LABS: BILIRUBIN,TOTAL 0.3 mg/dL (0.2-1); TOT PROT 4.7 g/dl (6.4-8.2)
[2022-05-22 08:50] LABS: ALBUMIN 1.7 g/dl (3.4-5.0); BLOOD UREA NITROGEN 83.4 mg/dL (7-18); CALCIUM 7.3 mg/dL (8.5-10.1)
[2022-05-22] MEDS: PANTOPRAZOLE SODIUM 40 MG VIAL IVPUSH SCH ×2 (09:55→21:19)
[2022-05-22] MEDS ORDERED: IRON SUCROSE INJECTION 200 MG in SODIUM CHLORIDE 90 ML IVPB ONE (10:00)
[2022-05-22 11:10] LABS: ANISOCYTOSIS 0; HELMET CELLS 0; HOWELL-JOLLY BODIES 0; MACROCYTOSIS 0; OVALOCYTE 0; ROULEAU 0; SICKELED CELLS 0; TARGET CELLS 0; TEAR DROP CELLS 0; TOXIC GRANULATION 0
[2022-05-22] MEDS ORDERED: LIDOCAINE PATCH REMOVAL MC ONE (11:30)
[2022-05-22] MEDS: LACTATED RINGERS SOLUTION 1,000 ML/1,000 ML INFUS.BAG IV SCH (12:42)
[2022-05-22] MEDS ORDERED: VANCOMYCIN/WATER FOR INJ (PEG) 1,000 MG/200 ML BAG IVPB ONE (14:30)
[2022-05-22] MEDS: CEFTRIAXONE 1 GM in DEXTROSE 5%-WATER - 50 ML IVPB SCH (15:16)
[2022-05-22] MEDS: ACETAMINOPHEN 325 MG TABLET (FP) PO PRN (21:20)
[2022-05-23] MEDS: VANCOMYCIN 250 MG/5 ML ORAL SOLUTION PO SCH ×3 (05:17→17:21)
[2022-05-23 10:00] LABS: HEMATOCRIT 26.2 % (35.4-49); HEMOGLOBIN 8.7 GM/dL (11.7-16.9); MCH 32.5 pg (25.7-33.7); MCHC 33.2 g/dl (32.0-35.9); MEAN CELL VOLUME 97.8 fl (80-96); MEAN PLT VOLUME 7.5 fl (7.5-11.1); PLATELET COUNT 278 10^3/uL (134-434); RBC 2.68 M/mm3 (4.00-5.60); RDW 17.2 % (11.9-15.9); WHITE BLOOD COUNT 15.3 K/mm3 (4.0-10.0)
[2022-05-23] MEDS ORDERED: POLYETHYLENE GLYCOL (HEALTHYLAX) 3350 17 GM PACKET PO SCH (10:00)
[2022-05-23 10:21] LABS: CALCIUM 7.7 mg/dL (8.5-10.1)
[2022-05-23 10:22] LABS: ALBUMIN 1.6 g/dl (3.4-5.0)
[2022-05-23 10:26] LABS: BILIRUBIN,TOTAL 0.3 mg/dL (0.2-1); TOT PROT 4.7 g/dl (6.4-8.2)
[2022-05-23 10:35] LABS: ANISOCYTOSIS 1+; MACROCYTOSIS 0
[2022-05-23] MEDS: PANTOPRAZOLE SODIUM 40 MG VIAL IVPUSH SCH ×2 (10:48→21:17)
[2022-05-23] MEDS: CEFTRIAXONE 1 GM in DEXTROSE 5%-WATER - 50 ML IVPB SCH (10:48)
[2022-05-23] MEDS: LACTATED RINGERS SOLUTION 1,000 ML/1,000 ML INFUS.BAG IV SCH (16:50)
[2022-05-23] MEDS: POLYETHYLENE GLYCOL (HEALTHYLAX) 3350 17 GM PACKET PO SCH (21:18)
[2022-05-24] MEDS: VANCOMYCIN 250 MG/5 ML ORAL SOLUTION PO SCH ×6 (00:44→23:59)
[2022-05-24] MEDS: POLYETHYLENE GLYCOL (HEALTHYLAX) 3350 17 GM PACKET PO SCH ×3 (06:00→21:19)
[2022-05-24] MEDS: LACTATED RINGERS SOLUTION 1,000 ML/1,000 ML INFUS.BAG IV SCH ×2 (07:31→14:39)
[2022-05-24] MEDS: CEFTRIAXONE 1 GM in DEXTROSE 5%-WATER - 50 ML IVPB SCH (09:05)
[2022-05-24] MEDS: PANTOPRAZOLE SODIUM 40 MG VIAL IVPUSH SCH ×2 (09:05→21:19)
[2022-05-24 09:38] LABS: CALCIUM 7.9 mg/dL (8.5-10.1)
[2022-05-24 09:39] LABS: BLOOD UREA NITROGEN 65.5 mg/dL (7-18)
[2022-05-24 09:40] LABS: ALBUMIN 1.6 g/dl (3.4-5.0)
[2022-05-24 09:42] LABS: CREATININE 4.8 mg/dL (0.55-1.3)
[2022-05-24 09:44] LABS: BILIRUBIN,TOTAL 0.3 mg/dL (0.2-1); TOT PROT 4.8 g/dl (6.4-8.2)
[2022-05-24] MEDS ORDERED: PEG 3350/NA SULF BICARB CL/KCL 4000 ML SOLN.RECON PO ONE (10:00)
[2022-05-24] MEDS ORDERED: BISACODYL 5 MG TABLET.DR (FP) PO ONE (20:00)
[2022-05-25] MEDS: VANCOMYCIN 250 MG/5 ML ORAL SOLUTION PO SCH ×4 (00:01→17:08)
[2022-05-25] MEDS: POLYETHYLENE GLYCOL (HEALTHYLAX) 3350 17 GM PACKET PO SCH ×3 (05:26→21:09)
[2022-05-25] MEDS: LACTATED RINGERS SOLUTION 1,000 ML/1,000 ML INFUS.BAG IV SCH (06:52)
[2022-05-25 07:36] LABS: INR 1.49 (0.83-1.09); PROTHROMBIN TIME (PATIENT) 17.2 SEC (9.7-13.0)
[2022-05-25 07:52] LABS: HEMATOCRIT 26.4 % (35.4-49); HEMOGLOBIN 8.7 GM/dL (11.7-16.9); MCH 32.7 pg (25.7-33.7); MCHC 33.1 g/dl (32.0-35.9); MEAN CELL VOLUME 98.7 fl (80-96); MEAN PLT VOLUME 7.3 fl (7.5-11.1); PLATELET COUNT 288 10^3/uL (134-434); RBC 2.67 M/mm3 (4.00-5.60); RDW 17.3 % (11.9-15.9); WHITE BLOOD COUNT 12.4 K/mm3 (4.0-10.0)
[2022-05-25 07:56] LABS: CALCIUM 7.8 mg/dL (8.5-10.1)
[2022-05-25] MEDS ORDERED: PHYTONADIONE 10 MG/1 ML AMP IVPB ONE (08:38)
[2022-05-25 10:11] LABS: ANISOCYTOSIS 0; MACROCYTOSIS 0
[2022-05-25] MEDS: CEFTRIAXONE 1 GM in DEXTROSE 5%-WATER - 50 ML IVPB SCH (10:13)
[2022-05-25] MEDS: PANTOPRAZOLE SODIUM 40 MG VIAL IVPUSH SCH ×2 (10:14→21:09)
[2022-05-25] MEDS ORDERED: TETRACAINE/BENZOCAINE/BUTAMBEN 20 GM SPR TP ONE ×2 (12:15→12:53)
[2022-05-25] MEDS ORDERED: SODIUM CHLORIDE 0.45% 1,000 ML IV SCH (12:15)
[2022-05-25] MEDS ORDERED: DEXMEDETOMIDINE HCL 200 MCG/2 ML IVPB ONE (12:34)
[2022-05-26] MEDS: POLYETHYLENE GLYCOL (HEALTHYLAX) 3350 17 GM PACKET PO SCH ×3 (05:02→21:13)
[2022-05-26 07:38] LABS: HEMATOCRIT 26.2 % (35.4-49); HEMOGLOBIN 8.5 GM/dL (11.7-16.9); MCH 32.3 pg (25.7-33.7); MCHC 32.6 g/dl (32.0-35.9); PLATELET COUNT 274 10^3/uL (134-434); RBC 2.65 M/mm3 (4.00-5.60); RDW 16.8 % (11.9-15.9); WHITE BLOOD COUNT 11.8 K/mm3 (4.0-10.0)
[2022-05-26 08:01] LABS: ALBUMIN 1.7 g/dl (3.4-5.0); CALCIUM 7.7 mg/dL (8.5-10.1)
[2022-05-26 08:03] LABS: MAGNESIUM 1.7 mg/dL (1.8-2.4)
[2022-05-26 08:05] LABS: CREATININE 3.5 mg/dL (0.55-1.3)
[2022-05-26 08:06] LABS: TOT PROT 4.9 g/dl (6.4-8.2)
[2022-05-26 08:07] LABS: BILIRUBIN,TOTAL 0.2 mg/dL (0.2-1)
[2022-05-26] MEDS ORDERED: MAGNESIUM SULF 50% (8.12 MEQ/2 ML-1 GM VIAL) IVPB ONE (08:34)
[2022-05-26 09:03] LABS: ANISOCYTOSIS 2+; MACROCYTOSIS 0
[2022-05-26] MEDS ORDERED: TAMSULOSIN HCL 0.4 MG CAP PO SCH (10:00)
[2022-05-26] MEDS: CEFTRIAXONE 1 GM in DEXTROSE 5%-WATER - 50 ML IVPB SCH (10:18)
[2022-05-26] MEDS: MIRTAZAPINE 15 MG TABLET (FP) PO SCH (10:22)
[2022-05-26] MEDS: CARVEDILOL 12.5 MG TABLET (FP) PO SCH ×2 (10:22→21:13)
[2022-05-26] MEDS: PANTOPRAZOLE 40 MG TABLET PO SCH ×2 (10:23→21:13)
[2022-05-26] MEDS ORDERED: FUROSEMIDE 40 MG/4 ML INJECTABLE VIAL IVPUSH ONE (15:05)
[2022-05-26] MEDS ORDERED: VANCOMYCIN 1 GM/200 ML PREMIX BAG (RESTRICTED TO ID ONLY) IVPB ONE (15:07)
[2022-05-26 15:14] VITALS: BMI 31.5
[2022-05-26] MEDS ORDERED: VANCOMYCIN/WATER FOR INJ (PEG) 1,000 MG/200 ML BAG IVPB ONE (15:34)
[2022-05-26] MEDS: ROSUVASTATIN CA 10 MG TABLET PO SCH (21:20)
[2022-05-27] MEDS: POLYETHYLENE GLYCOL (HEALTHYLAX) 3350 17 GM PACKET PO SCH ×3 (05:01→21:36)
[2022-05-27] MEDS: TAMSULOSIN HCL 0.4 MG CAP PO SCH (08:31)
[2022-05-27 09:11] LABS: ALBUMIN 1.8 g/dl (3.4-5.0); BLOOD UREA NITROGEN 39.2 mg/dL (7-18); CALCIUM 7.9 mg/dL (8.5-10.1)
[2022-05-27 09:15] LABS: CREATININE 3.2 mg/dL (0.55-1.3)
[2022-05-27 09:17] LABS: BILIRUBIN,TOTAL 0.2 mg/dL (0.2-1); TOT PROT 4.8 g/dl (6.4-8.2)
[2022-05-27] MEDS: CEFTRIAXONE 1 GM in DEXTROSE 5%-WATER - 50 ML IVPB SCH (10:32)
[2022-05-27] MEDS: MIRTAZAPINE 15 MG TABLET (FP) PO SCH (10:32)
[2022-05-27] MEDS: CARVEDILOL 12.5 MG TABLET (FP) PO SCH ×2 (10:33→21:36)
[2022-05-27] MEDS: PANTOPRAZOLE 40 MG TABLET PO SCH ×2 (10:33→21:36)
[2022-05-27] MEDS: ROSUVASTATIN CA 10 MG TABLET PO SCH (21:36)
[2022-05-27] MEDS: BENZOCAINE/MENTH/CETYLPYRD CL 1 EACH LOZENGE MM PRN (22:21)
[2022-05-28] MEDS: BENZOCAINE/MENTH/CETYLPYRD CL 1 EACH LOZENGE MM PRN (05:51)
[2022-05-28] MEDS: POLYETHYLENE GLYCOL (HEALTHYLAX) 3350 17 GM PACKET PO SCH ×3 (05:51→21:16)
[2022-05-28] MEDS: TAMSULOSIN HCL 0.4 MG CAP PO SCH (08:51)
[2022-05-28 09:13] LABS: BLOOD UREA NITROGEN 35.2 mg/dL (7-18); CALCIUM 7.8 mg/dL (8.5-10.1)
[2022-05-28 09:17] LABS: CREATININE 2.8 mg/dL (0.55-1.3)
[2022-05-28] MEDS: CEFTRIAXONE 1 GM in DEXTROSE 5%-WATER - 50 ML IVPB SCH (10:53)
[2022-05-28] MEDS: PANTOPRAZOLE 40 MG TABLET PO SCH ×2 (10:54→21:16)
[2022-05-28] MEDS: CARVEDILOL 12.5 MG TABLET (FP) PO SCH ×2 (10:54→21:16)
[2022-05-28] MEDS: MIRTAZAPINE 15 MG TABLET (FP) PO SCH (10:54)
[2022-05-28] MEDS: ROSUVASTATIN CA 10 MG TABLET PO SCH (21:16)
[2022-05-28] MEDS: ACETAMINOPHEN 325 MG TABLET (FP) PO PRN (21:16)
[2022-05-29] MEDS: POLYETHYLENE GLYCOL (HEALTHYLAX) 3350 17 GM PACKET PO SCH ×3 (06:00→21:16)
[2022-05-29] MEDS: TAMSULOSIN HCL 0.4 MG CAP PO SCH (09:00)
[2022-05-29] MEDS: PANTOPRAZOLE 40 MG TABLET PO SCH ×2 (10:13→21:16)
[2022-05-29] MEDS: CARVEDILOL 12.5 MG TABLET (FP) PO SCH ×2 (10:13→21:16)
[2022-05-29] MEDS: MIRTAZAPINE 15 MG TABLET (FP) PO SCH (10:13)
[2022-05-29] MEDS: CEFTRIAXONE 1 GM in DEXTROSE 5%-WATER - 50 ML IVPB SCH (10:14)
[2022-05-29 12:18] LABS: BASO % 1.2 % (0-2.0); EOS % 2.9 % (0-4.5); HEMATOCRIT 23.1 % (35.4-49); HEMOGLOBIN 7.6 GM/dL (11.7-16.9); LYMPH % 7.2 % (8-40); MCH 33.2 pg (25.7-33.7); MEAN CELL VOLUME 100.7 fl (80-96); MEAN PLT VOLUME 7.1 fl (7.5-11.1); MONO % 5.6 % (3.8-10.2); NEUT % 83.1 % (42.8-82.8); PLATELET COUNT 269 10^3/uL (134-434); RBC 2.29 M/mm3 (4.00-5.60); RDW 17.2 % (11.9-15.9); WHITE BLOOD COUNT 8.6 K/mm3 (4.0-10.0)
[2022-05-29 13:12] LABS: ALBUMIN 1.9 g/dl (3.4-5.0); BLOOD UREA NITROGEN 36.6 mg/dL (7-18); MAGNESIUM 1.6 mg/dL (1.8-2.4)
[2022-05-29 13:15] LABS: CREATININE 2.5 mg/dL (0.55-1.3); PHOSPHOROUS 2.9 mg/dL (2.5-4.9)
[2022-05-29 13:18] LABS: BILIRUBIN,TOTAL 0.2 mg/dL (0.2-1); TOT PROT 5.2 g/dl (6.4-8.2)
[2022-05-29] MEDS: ACETAMINOPHEN 325 MG TABLET (FP) PO PRN (21:16)
[2022-05-29] MEDS: ROSUVASTATIN CA 10 MG TABLET PO SCH (21:16)
[2022-05-30] MEDS: POLYETHYLENE GLYCOL (HEALTHYLAX) 3350 17 GM PACKET PO SCH ×3 (05:05→21:34)
[2022-05-30] MEDS: TAMSULOSIN HCL 0.4 MG CAP PO SCH (09:49)
[2022-05-30] MEDS: MIRTAZAPINE 15 MG TABLET (FP) PO SCH (09:50)
[2022-05-30] MEDS: PANTOPRAZOLE 40 MG TABLET PO SCH ×2 (09:50→21:34)
[2022-05-30] MEDS: CARVEDILOL 12.5 MG TABLET (FP) PO SCH ×2 (09:50→21:34)
[2022-05-30 10:44] VITALS: RESP 18
[2022-05-30] MEDS: FERROUS SO4 325 MG TABLET (FP) PO SCH ×2 (13:18→21:34)
[2022-05-30 13:45] LABS: BASO % 0.6 % (0-2.0); EOS % 3.3 % (0-4.5); HEMATOCRIT 24.2 % (35.4-49); HEMOGLOBIN 7.8 GM/dL (11.7-16.9); LYMPH % 8.1 % (8-40); MCH 32.9 pg (25.7-33.7); MCHC 32.4 g/dl (32.0-35.9); MEAN CELL VOLUME 101.8 fl (80-96); MEAN PLT VOLUME 7.6 fl (7.5-11.1); MONO % 4.4 % (3.8-10.2); NEUT % 83.6 % (42.8-82.8); PLATELET COUNT 234 10^3/uL (134-434); RBC 2.38 M/mm3 (4.00-5.60); WHITE BLOOD COUNT 7.3 K/mm3 (4.0-10.0)
[2022-05-30 14:00] LABS: MAGNESIUM 1.5 mg/dL (1.8-2.4)
[2022-05-30] MEDS ORDERED: MAGNESIUM SULF 50% (8.12 MEQ/2 ML-1 GM VIAL) IVPB ONE (14:27)
[2022-05-30 14:29] LABS: ALBUMIN 2.2 g/dl (3.4-5.0); BLOOD UREA NITROGEN 37.3 mg/dL (7-18)
[2022-05-30 14:30] LABS: CREATININE 2.4 mg/dL (0.55-1.3)
[2022-05-30 14:32] LABS: TOT PROT 5.6 g/dl (6.4-8.2)
[2022-05-30 14:34] LABS: BILIRUBIN,TOTAL 0.2 mg/dL (0.2-1)
[2022-05-30 15:23] LABS: CALCIUM 8.2 mg/dL (8.5-10.1)
[2022-05-30 15:24] LABS: ALBUMIN 2.1 g/dl (3.4-5.0); BLOOD UREA NITROGEN 36.8 mg/dL (7-18)
[2022-05-30 15:26] LABS: CREATININE 2.3 mg/dL (0.55-1.3)
[2022-05-30 15:28] LABS: TOT PROT 5.6 g/dl (6.4-8.2)
[2022-05-30 15:29] LABS: BILIRUBIN,TOTAL 0.2 mg/dL (0.2-1)
[2022-05-30 18:30] VITALS: BP 175/75; PULSE 81; TEMP 98.8
[2022-05-30] MEDS: ROSUVASTATIN CA 10 MG TABLET PO SCH (21:33)
== END 2022-05-31 02:13 | DRG 871 ==
LOC: JER 13:56 → JERBED 20:06 → J2W 05-20 00:23 → J4S 05-21 23:13
PROVIDERS: ADMIT Internal Medicine; ATTEND Family Medicine
PROC: 30233N1 Transfusion of Nonautologous Red Blood Cells into Peripheral Vein, Percutaneous Approach (ICD-10-PCS; 2022-05-20)
PROC: 0DB68ZX Excision of Stomach, Via Natural or Artificial Opening Endoscopic, Diagnostic (ICD-10-PCS; 2022-05-25)
PROC: 0DB98ZX Excision of Duodenum, Via Natural or Artificial Opening Endoscopic, Diagnostic (ICD-10-PCS; 2022-05-25)
PROC: 0DBL8ZX Excision of Transverse Colon, Via Natural or Artificial Opening Endoscopic, Diagnostic (ICD-10-PCS; principal; 2022-05-25 13:00)
DX: A41.59 Other Gram-negative sepsis (principal); J18.9 Pneumonia, unspecified organism; E87.20 Acidosis, unspecified; L03.115 Cellulitis of right lower limb; N18.4 Chronic kidney disease, stage 4 (severe); N17.9 Acute kidney failure, unspecified; E87.1 Hypo-osmolality and hyponatremia; L03.116 Cellulitis of left lower limb; N39.0 Urinary tract infection, site not specified; I13.0 Hypertensive heart and chronic kidney disease with heart failure and stage 1 through stage 4 chronic kidney disease, or unspecified chronic kidney disease; I50.32 Chronic diastolic (congestive) heart failure; A04.72 Enterocolitis due to Clostridium difficile, not specified as recurrent; I69.354 Hemiplegia and hemiparesis following cerebral infarction affecting left non-dominant side; I25.10 Atherosclerotic heart disease of native coronary artery without angina pectoris; I73.9 Peripheral vascular disease, unspecified; J44.9 Chronic obstructive pulmonary disease, unspecified; K31.9 Disease of stomach and duodenum, unspecified; D64.9 Anemia, unspecified; K64.8 Other hemorrhoids; K57.30 Diverticulosis of large intestine without perforation or abscess without bleeding; E86.0 Dehydration; D72.829 Elevated white blood cell count, unspecified; Z95.5 Presence of coronary angioplasty implant and graft; N40.0 Benign prostatic hyperplasia without lower urinary tract symptoms; D12.3 Benign neoplasm of transverse colon; K29.50 Unspecified chronic gastritis without bleeding
CPT/HCPCS: 0241U-QW; 36415; 36430; 71045-TC-FY; 74176-TC; 80048; 80053; 81003; 82550; 82553; 82570; 82607; 82728; 82746; 82803; 82962; 83540; 83550; 83605; 83735; 84100; 84156; 84300; 84484; 85025; 85610; 85730; 86140; 86850; 86900; 86901; 86922; 87040; 87045; 87046; 87086; 87186; 87324; 87449; 87493; 88305-TC; 93005; 93010; 93971-TC; 97161-GP; 99285-25; C9803-CS; G0480; J1756; P9058; U0003; U0005

== ENCOUNTER 2022-07-11 17:05 | Inpatient (IN) | payer OTHER ==
[2022-07-11 19:49] LABS: INR 1.23 (0.83-1.09); PROTHROMBIN TIME (PATIENT) 14.2 SEC (9.7-13.0)
[2022-07-11 19:51] LABS: ACTIVATED PTT 31.7 SECONDS (25.2-36.5); HEMATOCRIT 26.8 % (35.4-49); HEMOGLOBIN 8.6 GM/dL (11.7-16.9); MCH 33.2 pg (25.7-33.7); MCHC 31.9 g/dl (32.0-35.9); MEAN CELL VOLUME 104.3 fl (80-96); PLATELET COUNT 218 10^3/uL (134-434); RBC 2.57 M/mm3 (4.00-5.60); RDW 18.3 % (11.9-15.9); WHITE BLOOD COUNT 4.6 K/mm3 (4.0-10.0)
[2022-07-11 19:55] LABS: BLOOD UREA NITROGEN 96.3 mg/dL (7-18); CALCIUM 8.1 mg/dL (8.5-10.1)
[2022-07-11 19:58] LABS: CREATININE 4.3 mg/dL (0.55-1.3)
[2022-07-11 20:00] LABS: BILIRUBIN,TOTAL 0.2 mg/dL (0.2-1); TOT PROT 5.3 g/dl (6.4-8.2)
[2022-07-11 20:28] LABS: ANISOCYTOSIS 2+; CORRECTED WBC 4.14 K/mm3; MACROCYTOSIS 0; OVALOCYTE 1+; PLATELET ESTIMATE NORMAL; TEAR DROP CELLS 1+
[2022-07-11] MEDS ORDERED: SODIUM CHLORIDE 1,000 ML IV STA (20:53)
[2022-07-11 21:13] LABS: EPI CELLS 13 /uL (0-25.1); HYALINE CASTS 13 /uL (0-3.1); URINE APPEARANCE TURBID; URINE BACTERIA 313 /uL (0-1359); URINE BILIRUBIN NEGATIVE (NEGATIVE); URINE COLOR YELLOW; URINE GLUCOSE (UA) NEGATIVE (NEGATIVE); URINE KETONE NEGATIVE (NEGATIVE); URINE LEUK ESTERASE 2+ (NEGATIVE); URINE NITRITE NEGATIVE (NEGATIVE); URINE PROTEIN 2+ (NEGATIVE); URINE UROBILINOGEN 0.2 mg/dL (0.2-1.0); URINE WBC 21986 /uL (0-25.8)
[2022-07-11] MEDS ORDERED: CEFTRIAXONE 1,000 MG in DEXTROSE 5%-WATER - 50 ML IVPB ONE (21:57)
[2022-07-11 22:45] LABS: URINE RBC 272.3 /uL (0-23.9); YEAST NEGATIVE (NEGATIVE)
[2022-07-11] MEDS ORDERED: CEFTRIAXONE 1 GM/50 ML BAG ONE (23:20)
[2022-07-12] MEDS ORDERED: VANCOMYCIN/WATER FOR INJ (PEG) 1,000 MG/200 ML BAG IVPB ONE ×2 (06:30→06:40)
[2022-07-12 07:53] LABS: BASO % 0.3 % (0-2.0); HEMATOCRIT 30.6 % (35.4-49); HEMOGLOBIN 9.5 GM/dL (11.7-16.9); LYMPH % 7.6 % (8-40); MCH 32.7 pg (25.7-33.7); MCHC 31.2 g/dl (32.0-35.9); MEAN PLT VOLUME 7.5 fl (7.5-11.1); MONO % 9.9 % (3.8-10.2); NEUT % 80.2 % (42.8-82.8); PLATELET COUNT 209 10^3/uL (134-434); RBC 2.92 M/mm3 (4.00-5.60); RDW 18.6 % (11.9-15.9); WHITE BLOOD COUNT 5.5 K/mm3 (4.0-10.0)
[2022-07-12 08:17] LABS: ALBUMIN 1.9 g/dl (3.4-5.0); BILIRUBIN,TOTAL 0.2 mg/dL (0.2-1); BLOOD UREA NITROGEN 94.6 mg/dL (7-18); CALCIUM 8.5 mg/dL (8.5-10.1); TOT PROT 5.4 g/dl (6.4-8.2)
[2022-07-12] MEDS ORDERED: SODIUM CHLORIDE 1,000 ML IV STA (10:08)
[2022-07-12] MEDS ORDERED: SODIUM CHLORIDE 1,000 ML IV SCH (10:30)
[2022-07-12 11:11] LABS: MAGNESIUM 1.9 mg/dL (1.8-2.4)
[2022-07-12 11:15] LABS: PHOSPHOROUS 3.3 mg/dL (2.5-4.9)
[2022-07-12] MEDS: CEFTRIAXONE 2 GM in DEXTROSE 5%-WATER 100 ML IVPB SCH (11:16)
[2022-07-12] MEDS: PANTOPRAZOLE SODIUM 40 MG VIAL IVPUSH SCH (11:16)
[2022-07-12] MEDS ORDERED: PANTOPRAZOLE SODIUM 40 MG VIAL ONE (11:25)
[2022-07-12] MEDS ORDERED: CEFTRIAXONE 2 GM/100 ML BAG IVPB ONE (11:25)
[2022-07-12] MEDS ORDERED: HEPARIN NA (PORCINE) 5,000 UNITS/ML 1ML VIAL ONE (11:25)
[2022-07-12] MEDS: NYSTATIN POWDER 100,000 UNITS/GM - 15 GM TOPICAL POWDER TP SCH (13:16)
[2022-07-12] MEDS: HEPARIN NA (PORCINE) 5,000 UNITS/ML 1ML VIAL SQ SCH ×2 (13:16→21:37)
[2022-07-12] MEDS: SODIUM CHLORIDE 0.45% 1,000 ML IV SCH (16:11)
[2022-07-13] MEDS: HEPARIN NA (PORCINE) 5,000 UNITS/ML 1ML VIAL SQ SCH ×3 (06:52→22:44)
[2022-07-13] MEDS: NYSTATIN POWDER 100,000 UNITS/GM - 15 GM TOPICAL POWDER TP SCH ×4 (06:53→22:45)
[2022-07-13 08:07] LABS: HEMATOCRIT 27.2 % (35.4-49); HEMOGLOBIN 8.7 GM/dL (11.7-16.9); MCH 33.3 pg (25.7-33.7); MCHC 31.9 g/dl (32.0-35.9); MEAN CELL VOLUME 104.6 fl (80-96); PLATELET COUNT 204 10^3/uL (134-434); RDW 18.4 % (11.9-15.9); WHITE BLOOD COUNT 5.3 K/mm3 (4.0-10.0)
[2022-07-13 08:42] LABS: ALBUMIN 1.7 g/dl (3.4-5.0)
[2022-07-13 08:43] LABS: BLOOD UREA NITROGEN 92.9 mg/dL (7-18); CALCIUM 8.2 mg/dL (8.5-10.1)
[2022-07-13 08:45] LABS: CREATININE 3.6 mg/dL (0.55-1.3)
[2022-07-13 08:47] LABS: BILIRUBIN,TOTAL 0.2 mg/dL (0.2-1); TOT PROT 4.8 g/dl (6.4-8.2)
[2022-07-13] MEDS: BACITRACIN ZINC 15 GM TUBE TOPICAL OINTMENT TP SCH (09:30)
[2022-07-13] MEDS: PANTOPRAZOLE SODIUM 40 MG VIAL IVPUSH SCH (09:30)
[2022-07-13] MEDS: CEFTRIAXONE 2 GM in DEXTROSE 5%-WATER 100 ML IVPB SCH (09:30)
[2022-07-13 09:59] LABS: ANISOCYTOSIS 2+; MACROCYTOSIS 2+
[2022-07-13] MEDS ORDERED: ACETAMINOPHEN 325 MG TABLET (FP) PO PRN (15:54)
[2022-07-13] MEDS ORDERED: ALLOPURINOL 100 MG TABLET (FP) PO SCH (16:00)
[2022-07-13] MEDS: SODIUM CHLORIDE 0.45% 1,000 ML IV SCH (16:04)
[2022-07-13] MEDS: TAMSULOSIN HCL 0.4 MG CAP PO SCH (16:35)
[2022-07-13] MEDS ORDERED: VANCOMYCIN 750 MG in DEXTROSE 5%-WATER - 150 ML IVPB SCH ×2 (17:30→17:45)
[2022-07-13] MEDS ORDERED: VANCOMYCIN/WATER FOR INJ (PEG) 750 MG/150 ML BAG IVPB SCH (17:45)
[2022-07-13] MEDS: prednisoLONE ACETATE 1% OPHTH SUSP 5 ML BOTTLE OS SCH ×2 (18:56→22:45)
[2022-07-13] MEDS ORDERED: ROSUVASTATIN CA 20 MG TABLET PO SCH (22:00)
[2022-07-13] MEDS ORDERED: PATIENT'S OWN MEDICATION (NON-FORMULARY) (Brimonidine Tartrate/Timolol [Combigan 0.2%-0.5% OU SCH (22:00)
[2022-07-13] MEDS: BRIMONIDINE TARTRATE 0.2% OPHTHALMIC 5 ML BOTTLE OU SCH (22:40)
[2022-07-13] MEDS: CYCLOPENTOLATE HCL 1% OPHTH SOLN 2 ML BOTTLE OD SCH (22:41)
[2022-07-13] MEDS: TIMOLOL 0.5% OPHTHALMIC SOL 5 ML BOTTLE OU SCH (22:47)
[2022-07-13] MEDS: PANTOPRAZOLE 40 MG TABLET PO SCH (22:47)
[2022-07-13] MEDS: MIRTAZAPINE 15 MG TABLET (FP) PO SCH (22:47)
[2022-07-13] MEDS: ASCORBIC ACID 500 MG TABLET (FP) PO SCH (22:48)
[2022-07-14] MEDS: HEPARIN NA (PORCINE) 5,000 UNITS/ML 1ML VIAL SQ SCH ×3 (06:06→21:36)
[2022-07-14] MEDS: NYSTATIN POWDER 100,000 UNITS/GM - 15 GM TOPICAL POWDER TP SCH ×3 (06:07→21:36)
[2022-07-14 07:29] LABS: HEMATOCRIT 25.8 % (35.4-49); HEMOGLOBIN 8.2 GM/dL (11.7-16.9); MCHC 31.8 g/dl (32.0-35.9); MEAN CELL VOLUME 103.8 fl (80-96); PLATELET COUNT 183 10^3/uL (134-434); RBC 2.49 M/mm3 (4.00-5.60); RDW 17.9 % (11.9-15.9); WHITE BLOOD COUNT 5.1 K/mm3 (4.0-10.0)
[2022-07-14 08:27] LABS: MAGNESIUM 1.6 mg/dL (1.8-2.4)
[2022-07-14 08:31] LABS: PHOSPHOROUS 3.9 mg/dL (2.5-4.9)
[2022-07-14 09:02] LABS: ANISOCYTOSIS 1+; MACROCYTOSIS 0; OVALOCYTE 2+; TOXIC GRANULATION 2+
[2022-07-14] MEDS: BRIMONIDINE TARTRATE 0.2% OPHTHALMIC 5 ML BOTTLE OU SCH ×2 (09:30→21:33)
[2022-07-14] MEDS: prednisoLONE ACETATE 1% OPHTH SUSP 5 ML BOTTLE OS SCH ×4 (09:30→21:36)
[2022-07-14] MEDS: CYCLOPENTOLATE HCL 1% OPHTH SOLN 2 ML BOTTLE OD SCH ×2 (09:31→21:36)
[2022-07-14] MEDS: TIMOLOL 0.5% OPHTHALMIC SOL 5 ML BOTTLE OU SCH ×2 (09:31→21:33)
[2022-07-14] MEDS: CEFTRIAXONE 2 GM in DEXTROSE 5%-WATER 100 ML IVPB SCH (09:31)
[2022-07-14] MEDS: PANTOPRAZOLE 40 MG TABLET PO SCH ×2 (09:41→21:26)
[2022-07-14] MEDS: TAMSULOSIN HCL 0.4 MG CAP PO SCH (09:41)
[2022-07-14] MEDS: ASCORBIC ACID 500 MG TABLET (FP) PO SCH ×2 (09:41→21:25)
[2022-07-14] MEDS: FOLIC ACID 1 MG TABLET (FP) PO SCH (09:41)
[2022-07-14] MEDS: BACITRACIN ZINC 15 GM TUBE TOPICAL OINTMENT TP SCH (09:41)
[2022-07-14] MEDS ORDERED: MAGNESIUM SULFATE IN WATER 4 GM/50 ML BAG IVPB ONE (11:00)
[2022-07-14] MEDS ORDERED: MAGNESIUM 4GM/H20 - 4 GM/100 ML IVPB IVPB ONE (11:02)
[2022-07-14] MEDS: SODIUM CHLORIDE 0.45% 1,000 ML IV SCH (18:10)
[2022-07-14] MEDS: ROSUVASTATIN CA 10 MG TABLET PO SCH (21:25)
[2022-07-14] MEDS: MIRTAZAPINE 15 MG TABLET (FP) PO SCH (21:25)
[2022-07-15] MEDS: VANCOMYCIN 250 MG/5 ML ORAL SOLUTION PO SCH ×5 (00:31→23:13)
[2022-07-15] MEDS: HEPARIN NA (PORCINE) 5,000 UNITS/ML 1ML VIAL SQ SCH ×3 (06:44→22:09)
[2022-07-15] MEDS: NYSTATIN POWDER 100,000 UNITS/GM - 15 GM TOPICAL POWDER TP SCH ×3 (06:44→22:09)
[2022-07-15 07:18] LABS: BASO % 0.4 % (0-2.0); EOS % 2.5 % (0-4.5); HEMATOCRIT 25.1 % (35.4-49); HEMOGLOBIN 8.1 GM/dL (11.7-16.9); MCH 33.2 pg (25.7-33.7); MCHC 32.2 g/dl (32.0-35.9); MEAN CELL VOLUME 103.3 fl (80-96); MEAN PLT VOLUME 7.9 fl (7.5-11.1); MONO % 6.1 % (3.8-10.2); PLATELET COUNT 176 10^3/uL (134-434); RBC 2.43 M/mm3 (4.00-5.60); RDW 18.4 % (11.9-15.9); WHITE BLOOD COUNT 7.9 K/mm3 (4.0-10.0)
[2022-07-15 07:30] LABS: CALCIUM 7.5 mg/dL (8.5-10.1)
[2022-07-15 07:31] LABS: BLOOD UREA NITROGEN 75.3 mg/dL (7-18); MAGNESIUM 2.4 mg/dL (1.8-2.4)
[2022-07-15 07:34] LABS: CREATININE 3.1 mg/dL (0.55-1.3); PHOSPHOROUS 3.1 mg/dL (2.5-4.9)
[2022-07-15] MEDS: ASCORBIC ACID 500 MG TABLET (FP) PO SCH ×2 (10:24→22:08)
[2022-07-15] MEDS: TAMSULOSIN HCL 0.4 MG CAP PO SCH (10:24)
[2022-07-15] MEDS: FOLIC ACID 1 MG TABLET (FP) PO SCH (10:24)
[2022-07-15] MEDS: ASPIRIN COATED 81 MG TABLET.EC PO SCH (10:24)
[2022-07-15] MEDS: PANTOPRAZOLE 40 MG TABLET PO SCH ×2 (10:24→22:08)
[2022-07-15] MEDS: prednisoLONE ACETATE 1% OPHTH SUSP 5 ML BOTTLE OS SCH ×4 (10:35→22:09)
[2022-07-15] MEDS: BRIMONIDINE TARTRATE 0.2% OPHTHALMIC 5 ML BOTTLE OU SCH ×2 (10:35→22:09)
[2022-07-15] MEDS: TIMOLOL 0.5% OPHTHALMIC SOL 5 ML BOTTLE OU SCH ×2 (10:35→23:13)
[2022-07-15] MEDS: CYCLOPENTOLATE HCL 1% OPHTH SOLN 2 ML BOTTLE OD SCH ×2 (10:36→22:09)
[2022-07-15] MEDS: SODIUM CHLORIDE 0.45% 1,000 ML IV SCH ×2 (13:28→22:09)
[2022-07-15] MEDS: BACITRACIN ZINC 15 GM TUBE TOPICAL OINTMENT TP SCH (13:29)
[2022-07-15] MEDS ORDERED: VANCOMYCIN/WATER FOR INJ (PEG) 750 MG/150 ML BAG IVPB ONE (18:00)
[2022-07-15] MEDS: MIRTAZAPINE 15 MG TABLET (FP) PO SCH (22:08)
[2022-07-15] MEDS: ROSUVASTATIN CA 10 MG TABLET PO SCH (22:08)
[2022-07-16] MEDS ORDERED: SODIUM CHLORIDE 0.45% 1,000 ML IV SCH (06:01)
[2022-07-16] MEDS: NYSTATIN POWDER 100,000 UNITS/GM - 15 GM TOPICAL POWDER TP SCH ×3 (06:10→22:07)
[2022-07-16] MEDS: VANCOMYCIN 250 MG/5 ML ORAL SOLUTION PO SCH ×3 (06:10→17:24)
[2022-07-16] MEDS: HEPARIN NA (PORCINE) 5,000 UNITS/ML 1ML VIAL SQ SCH ×3 (06:10→22:06)
[2022-07-16 07:24] LABS: HEMATOCRIT 24.7 % (35.4-49); HEMOGLOBIN 8.1 GM/dL (11.7-16.9); MCH 33.5 pg (25.7-33.7); MCHC 32.6 g/dl (32.0-35.9); MEAN CELL VOLUME 102.7 fl (80-96); MEAN PLT VOLUME 7.6 fl (7.5-11.1); PLATELET COUNT 164 10^3/uL (134-434); RBC 2.41 M/mm3 (4.00-5.60); RDW 18.4 % (11.9-15.9); WHITE BLOOD COUNT 5.4 K/mm3 (4.0-10.0)
[2022-07-16 07:39] LABS: ALBUMIN 1.6 g/dl (3.4-5.0); BLOOD UREA NITROGEN 67.6 mg/dL (7-18); CALCIUM 7.6 mg/dL (8.5-10.1); MAGNESIUM 2.3 mg/dL (1.8-2.4)
[2022-07-16 07:41] LABS: PHOSPHOROUS 3.6 mg/dL (2.5-4.9)
[2022-07-16 07:43] LABS: BILIRUBIN,TOTAL 0.3 mg/dL (0.2-1); TOT PROT 4.5 g/dl (6.4-8.2)
[2022-07-16] MEDS: CYCLOPENTOLATE HCL 1% OPHTH SOLN 2 ML BOTTLE OD SCH ×2 (10:53→22:07)
[2022-07-16] MEDS: BRIMONIDINE TARTRATE 0.2% OPHTHALMIC 5 ML BOTTLE OU SCH ×2 (10:53→22:08)
[2022-07-16] MEDS: ASPIRIN COATED 81 MG TABLET.EC PO SCH (10:53)
[2022-07-16] MEDS: PANTOPRAZOLE 40 MG TABLET PO SCH ×2 (10:53→22:05)
[2022-07-16] MEDS: FOLIC ACID 1 MG TABLET (FP) PO SCH (10:53)
[2022-07-16] MEDS: BACITRACIN ZINC 15 GM TUBE TOPICAL OINTMENT TP SCH (10:53)
[2022-07-16] MEDS: TAMSULOSIN HCL 0.4 MG CAP PO SCH (10:53)
[2022-07-16] MEDS: ASCORBIC ACID 500 MG TABLET (FP) PO SCH ×2 (10:53→22:06)
[2022-07-16] MEDS: TIMOLOL 0.5% OPHTHALMIC SOL 5 ML BOTTLE OU SCH ×2 (10:54→22:09)
[2022-07-16] MEDS: prednisoLONE ACETATE 1% OPHTH SUSP 5 ML BOTTLE OS SCH ×4 (10:54→22:07)
[2022-07-16] MEDS: SODIUM CHLORIDE 0.45% 1,000 ML IV SCH (13:30)
[2022-07-16] MEDS: CEFTRIAXONE 1 GM in DEXTROSE 5%-WATER - 50 ML IVPB SCH (21:11)
[2022-07-16] MEDS: MIRTAZAPINE 15 MG TABLET (FP) PO SCH (22:05)
[2022-07-16] MEDS: ROSUVASTATIN CA 10 MG TABLET PO SCH (22:06)
[2022-07-17] MEDS: SODIUM CHLORIDE 0.45% 1,000 ML IV SCH (05:24)
[2022-07-17] MEDS: NYSTATIN POWDER 100,000 UNITS/GM - 15 GM TOPICAL POWDER TP SCH ×3 (06:38→23:18)
[2022-07-17] MEDS: HEPARIN NA (PORCINE) 5,000 UNITS/ML 1ML VIAL SQ SCH ×3 (06:38→23:13)
[2022-07-17] MEDS: VANCOMYCIN 250 MG/5 ML ORAL SOLUTION PO SCH ×5 (06:38→23:14)
[2022-07-17 08:20] LABS: HEMOGLOBIN 8.8 GM/dL (11.7-16.9); MCH 33.4 pg (25.7-33.7); MCHC 32.7 g/dl (32.0-35.9); MEAN CELL VOLUME 102.2 fl (80-96); PLATELET COUNT 173 10^3/uL (134-434); RBC 2.64 M/mm3 (4.00-5.60); RDW 19.1 % (11.9-15.9); WHITE BLOOD COUNT 5.4 K/mm3 (4.0-10.0)
[2022-07-17 08:42] LABS: BLOOD UREA NITROGEN 60.2 mg/dL (7-18); MAGNESIUM 2.3 mg/dL (1.8-2.4)
[2022-07-17 08:45] LABS: CREATININE 2.9 mg/dL (0.55-1.3); PHOSPHOROUS 3.7 mg/dL (2.5-4.9)
[2022-07-17] MEDS: TAMSULOSIN HCL 0.4 MG CAP PO SCH (09:40)
[2022-07-17] MEDS: PANTOPRAZOLE 40 MG TABLET PO SCH ×2 (09:40→23:14)
[2022-07-17] MEDS: FOLIC ACID 1 MG TABLET (FP) PO SCH (09:40)
[2022-07-17] MEDS: ASCORBIC ACID 500 MG TABLET (FP) PO SCH ×2 (09:40→23:14)
[2022-07-17] MEDS: ASPIRIN COATED 81 MG TABLET.EC PO SCH (09:40)
[2022-07-17] MEDS: prednisoLONE ACETATE 1% OPHTH SUSP 5 ML BOTTLE OS SCH ×4 (09:41→23:20)
[2022-07-17] MEDS: BACITRACIN ZINC 15 GM TUBE TOPICAL OINTMENT TP SCH (09:42)
[2022-07-17] MEDS: CYCLOPENTOLATE HCL 1% OPHTH SOLN 2 ML BOTTLE OD SCH ×2 (09:42→23:19)
[2022-07-17] MEDS: TIMOLOL 0.5% OPHTHALMIC SOL 5 ML BOTTLE OU SCH ×2 (09:42→23:19)
[2022-07-17] MEDS: BRIMONIDINE TARTRATE 0.2% OPHTHALMIC 5 ML BOTTLE OU SCH ×2 (09:42→23:19)
[2022-07-17] MEDS: CEFTRIAXONE 1 GM in DEXTROSE 5%-WATER - 50 ML IVPB SCH (19:05)
[2022-07-17] MEDS: MIRTAZAPINE 15 MG TABLET (FP) PO SCH (23:14)
[2022-07-17] MEDS: ROSUVASTATIN CA 10 MG TABLET PO SCH (23:14)
[2022-07-18 06:46] VITALS: RESP 20
[2022-07-18] MEDS: VANCOMYCIN 250 MG/5 ML ORAL SOLUTION PO SCH ×3 (06:52→17:47)
[2022-07-18] MEDS: NYSTATIN POWDER 100,000 UNITS/GM - 15 GM TOPICAL POWDER TP SCH (06:52)
[2022-07-18] MEDS: HEPARIN NA (PORCINE) 5,000 UNITS/ML 1ML VIAL SQ SCH (06:52)
[2022-07-18 07:02] LABS: HEMATOCRIT 25.7 % (35.4-49); HEMOGLOBIN 8.2 GM/dL (11.7-16.9); MEAN CELL VOLUME 102.8 fl (80-96); MEAN PLT VOLUME 7.8 fl (7.5-11.1); PLATELET COUNT 163 10^3/uL (134-434); WHITE BLOOD COUNT 4.7 K/mm3 (4.0-10.0)
[2022-07-18 07:28] LABS: ALBUMIN 1.6 g/dl (3.4-5.0); BLOOD UREA NITROGEN 59.5 mg/dL (7-18); CALCIUM 7.9 mg/dL (8.5-10.1)
[2022-07-18 07:29] LABS: MAGNESIUM 2.1 mg/dL (1.8-2.4)
[2022-07-18 07:31] LABS: CREATININE 2.8 mg/dL (0.55-1.3); PHOSPHOROUS 3.7 mg/dL (2.5-4.9)
[2022-07-18 07:33] LABS: BILIRUBIN,TOTAL 0.2 mg/dL (0.2-1); TOT PROT 4.6 g/dl (6.4-8.2)
[2022-07-18] MEDS: PANTOPRAZOLE 40 MG TABLET PO SCH (09:49)
[2022-07-18] MEDS: ASPIRIN COATED 81 MG TABLET.EC PO SCH (09:49)
[2022-07-18] MEDS: TAMSULOSIN HCL 0.4 MG CAP PO SCH (09:49)
[2022-07-18] MEDS: FOLIC ACID 1 MG TABLET (FP) PO SCH (09:49)
[2022-07-18] MEDS: ASCORBIC ACID 500 MG TABLET (FP) PO SCH (09:49)
[2022-07-18] MEDS: TIMOLOL 0.5% OPHTHALMIC SOL 5 ML BOTTLE OU SCH (09:50)
[2022-07-18] MEDS: BRIMONIDINE TARTRATE 0.2% OPHTHALMIC 5 ML BOTTLE OU SCH (09:50)
[2022-07-18] MEDS: prednisoLONE ACETATE 1% OPHTH SUSP 5 ML BOTTLE OS SCH ×3 (09:50→17:47)
[2022-07-18] MEDS: CYCLOPENTOLATE HCL 1% OPHTH SOLN 2 ML BOTTLE OD SCH (09:51)
[2022-07-18] MEDS: BACITRACIN ZINC 15 GM TUBE TOPICAL OINTMENT TP SCH (09:51)
[2022-07-18] MEDS ORDERED: ACETAMINOPHEN 325 MG TABLET (FP) PO PRN (12:22)
[2022-07-18] MEDS ORDERED: NYSTATIN POWDER 100,000 UNITS/GM - 15 GM TOPICAL POWDER TP SCH (14:00)
[2022-07-18] MEDS ORDERED: HEPARIN NA (PORCINE) 5,000 UNITS/ML 1ML VIAL SQ SCH (14:00)
[2022-07-18 16:17] VITALS: BMI 32.7
[2022-07-18 18:37] VITALS: BP 126/97; PULSE 80; TEMP 97.8
[2022-07-18] MEDS ORDERED: PANTOPRAZOLE 40 MG TABLET PO SCH (22:00)
[2022-07-18] MEDS ORDERED: ASCORBIC ACID 500 MG TABLET (FP) PO SCH (22:00)
[2022-07-18] MEDS ORDERED: BRIMONIDINE TARTRATE 0.2% OPHTHALMIC 5 ML BOTTLE OU SCH (22:00)
[2022-07-18] MEDS ORDERED: CYCLOPENTOLATE HCL 1% OPHTH SOLN 2 ML BOTTLE OD SCH (22:00)
[2022-07-18] MEDS ORDERED: TIMOLOL 0.5% OPHTHALMIC SOL 5 ML BOTTLE OU SCH (22:00)
[2022-07-18] MEDS ORDERED: MIRTAZAPINE 15 MG TABLET (FP) PO SCH (22:00)
[2022-07-19] MEDS ORDERED: BACITRACIN ZINC 15 GM TUBE TOPICAL OINTMENT TP SCH (10:00)
[2022-07-19] MEDS ORDERED: FOLIC ACID 1 MG TABLET (FP) PO SCH (10:00)
[2022-07-19] MEDS ORDERED: TAMSULOSIN HCL 0.4 MG CAP PO SCH (10:00)
== END 2022-07-18 20:38 | DRG 871 ==
LOC: JER 17:05 → JERBED 22:24 → J4W 07-12 15:13
PROVIDERS: ADMIT Internal Medicine; ATTEND Internal Medicine
DX: A41.59 Other Gram-negative sepsis (principal); G93.41 Metabolic encephalopathy; G81.94 Hemiplegia, unspecified affecting left nondominant side; A04.72 Enterocolitis due to Clostridium difficile, not specified as recurrent; N39.0 Urinary tract infection, site not specified; N17.9 Acute kidney failure, unspecified; I13.0 Hypertensive heart and chronic kidney disease with heart failure and stage 1 through stage 4 chronic kidney disease, or unspecified chronic kidney disease; N18.4 Chronic kidney disease, stage 4 (severe); I50.32 Chronic diastolic (congestive) heart failure; R47.01 Aphasia; I25.10 Atherosclerotic heart disease of native coronary artery without angina pectoris; R62.7 Adult failure to thrive; E78.5 Hyperlipidemia, unspecified; I95.9 Hypotension, unspecified; H40.9 Unspecified glaucoma; M24.542 Contracture, left hand; J44.9 Chronic obstructive pulmonary disease, unspecified; H54.8 Legal blindness, as defined in USA; D63.1 Anemia in chronic kidney disease; E11.22 Type 2 diabetes mellitus with diabetic chronic kidney disease; E66.9 Obesity, unspecified; Z68.32 Body mass index [BMI] 32.0-32.9, adult; R68.0 Hypothermia, not associated with low environmental temperature; E11.42 Type 2 diabetes mellitus with diabetic polyneuropathy; K57.90 Diverticulosis of intestine, part unspecified, without perforation or abscess without bleeding; D69.6 Thrombocytopenia, unspecified; F41.9 Anxiety disorder, unspecified; E83.51 Hypocalcemia; K64.8 Other hemorrhoids; Z95.5 Presence of coronary angioplasty implant and graft
CPT/HCPCS: 0241U-QW; 36415; 70450-TC; 71045-TC-FY; 74176-TC; 76775-TC; 80048; 80053; 81003; 82607; 82746; 82962; 83605; 83735; 84100; 84443; 84484; 85025; 85027; 85610; 85730; 87040; 87086; 87186; 87324; 87449; 93005; 93010; 93306-TC; 97162-GP; 99285-25; C9803-CS; G0480; J1644; U0003; U0005

== ENCOUNTER 2023-01-13 11:26 | Emergency (ER) | payer OTHER ==
[2023-01-13 11:59] VITALS: PULSE 77; BMI 27.4
[2023-01-13 12:04] LABS: BASO % 0.6 % (0-2.0); EOS % 5.3 % (0-4.5); HEMATOCRIT 34.5 % (35.4-49); HEMOGLOBIN 11.1 GM/dL (11.7-16.9); LYMPH % 9.1 % (8-40); MCH 33.8 pg (25.7-33.7); MCHC 32.3 g/dl (32.0-35.9); MEAN CELL VOLUME 104.7 fl (80-96); MEAN PLT VOLUME 7.3 fl (7.5-11.1); MONO % 8.6 % (3.8-10.2); NEUT % 76.4 % (42.8-82.8); PLATELET COUNT 240 10^3/uL (134-434); RDW 15.8 % (11.9-15.9); WHITE BLOOD COUNT 5.5 K/mm3 (4.0-10.0)
[2023-01-13 12:15] LABS: INR 1.1 (0.83-1.09); PROTHROMBIN TIME (PATIENT) 12.8 SEC (9.7-13.0)
[2023-01-13 12:17] LABS: ACTIVATED PTT 33.2 SECONDS (25.2-36.5)
[2023-01-13 12:23] LABS: POTASSIUM 5.3 mmol/L (3.5-5.1)
[2023-01-13 12:25] LABS: CALCIUM 8.7 mg/dL (8.5-10.1)
[2023-01-13 12:26] LABS: BLOOD UREA NITROGEN 64.4 mg/dL (7-18); MAGNESIUM 2.5 mg/dL (1.8-2.4)
[2023-01-13 12:28] LABS: CREATININE 2.9 mg/dL (0.55-1.3)
[2023-01-13 12:30] LABS: BILIRUBIN,TOTAL 0.4 mg/dL (0.2-1); TOT PROT 6.4 g/dl (6.4-8.2)
[2023-01-13] MEDS ORDERED: SODIUM ZIRCONIUM CYCLOSILICATE (LOKELMA) 5 GM PACKET PO ONE (12:35)
[2023-01-13] MEDS ORDERED: SODIUM CHLORIDE 0.45% 1,000 ML IV SCH (12:45)
[2023-01-13] MEDS ORDERED: SODIUM ZIRCONIUM CYCLOSILICATE (LOKELMA) 10 GM PACKET ONE (12:51)
[2023-01-13 13:33] LABS: EPI CELLS 21 /uL (0-25.1); HYALINE CASTS 0 /uL (0-3.1); URINE APPEARANCE CLEAR; URINE BACTERIA 1 /uL (0-1359); URINE BILIRUBIN NEGATIVE (NEGATIVE); URINE COLOR YELLOW; URINE GLUCOSE (UA) 3+ (NEGATIVE); URINE KETONE NEGATIVE (NEGATIVE); URINE LEUK ESTERASE NEGATIVE (NEGATIVE); URINE NITRITE NEGATIVE (NEGATIVE); URINE PROTEIN 2+ (NEGATIVE); URINE RBC 47 /uL (0-23.9); URINE UROBILINOGEN 0.2 mg/dL (0.2-1.0)
[2023-01-13 13:36] LABS: URINE WBC NEGATIVE /uL (0-25.8)
[2023-01-13 15:31] VITALS: BP 185/74; RESP 14; TEMP 98.1
== END 2023-01-13 20:03 | disposition home or self-care (01) ==
LOC: JER 11:26
DX: R79.9 Abnormal finding of blood chemistry, unspecified (principal); N18.9 Chronic kidney disease, unspecified
CPT/HCPCS: 36415; 80053; 81003; 82272; 82570; 82962; 83735; 84100; 84300; 84439; 84443; 85025; 85610; 85730; 86850; 86900; 86901; 87086; 93005; 93010; 99284-25

== ENCOUNTER 2023-02-08 00:16 | Inpatient (IN) | payer OTHER ==
[2023-02-08 02:16] LABS: BASO % 0.4 % (0-2.0); EOS % 1.6 % (0-4.5); HEMOGLOBIN 12.8 GM/dL (11.7-16.9); LYMPH % 4.4 % (8-40); MCH 34.1 pg (25.7-33.7); MCHC 33.6 g/dl (32.0-35.9); MEAN CELL VOLUME 101.6 fl (80-96); MEAN PLT VOLUME 8.2 fl (7.5-11.1); MONO % 6.2 % (3.8-10.2); NEUT % 87.4 % (42.8-82.8); PLATELET COUNT 192 10^3/uL (134-434); RBC 3.74 M/mm3 (4.00-5.60); RDW 15.1 % (11.9-15.9); WHITE BLOOD COUNT 14.4 K/mm3 (4.0-10.0)
[2023-02-08 02:22] LABS: INR 1.03 (0.83-1.09)
[2023-02-08 02:24] LABS: ACTIVATED PTT 34.2 SECONDS (25.2-36.5)
[2023-02-08 02:37] LABS: ALBUMIN 3.3 g/dl (3.4-5.0); BLOOD UREA NITROGEN 69.4 mg/dL (7-18)
[2023-02-08 02:41] LABS: CREATININE 3.3 mg/dL (0.55-1.3)
[2023-02-08 02:42] LABS: BILIRUBIN,TOTAL 0.3 mg/dL (0.2-1); TOT PROT 6.9 g/dl (6.4-8.2)
[2023-02-08] MEDS ORDERED: FUROSEMIDE 40 MG/4 ML INJECTABLE VIAL IVPUSH STA (05:50)
[2023-02-08] MEDS ORDERED: FUROSEMIDE 40 MG/4 ML INJECTABLE VIAL ONE (06:06)
[2023-02-08] MEDS ORDERED: ASPIRIN 325 MG TABLET PO ONE (06:33)
[2023-02-08] MEDS ORDERED: ACETAMINOPHEN 325 MG TABLET (FP) PO PRN (06:33)
[2023-02-08 06:54] LABS: HEMATOCRIT 35.4 % (35.4-49); HEMOGLOBIN 11.5 GM/dL (11.7-16.9); MCH 33.5 pg (25.7-33.7); MCHC 32.5 g/dl (32.0-35.9); MEAN CELL VOLUME 103.2 fl (80-96); MEAN PLT VOLUME 7.7 fl (7.5-11.1); PLATELET COUNT 183 10^3/uL (134-434); RBC 3.43 M/mm3 (4.00-5.60); RDW 14.6 % (11.9-15.9); WHITE BLOOD COUNT 8.3 K/mm3 (4.0-10.0)
[2023-02-08 07:17] LABS: POTASSIUM 5.2 mmol/L (3.5-5.1)
[2023-02-08 07:20] LABS: CALCIUM 8.9 mg/dL (8.5-10.1); MAGNESIUM 2.6 mg/dL (1.8-2.4)
[2023-02-08 07:23] LABS: CREATININE 3.2 mg/dL (0.55-1.3); PHOSPHOROUS 4.9 mg/dL (2.5-4.9)
[2023-02-08 07:25] LABS: BILIRUBIN,TOTAL 0.4 mg/dL (0.2-1); TOT PROT 6.2 g/dl (6.4-8.2)
[2023-02-08] MEDS ORDERED: PIPERACILLIN/TAZOB 2.25 GM 2.25 GM in DEXTROSE 5%-WATER - 50 ML IVPB SCH ×2 (08:15→10:00)
[2023-02-08] MEDS: INSULIN SLIDING SCALE (NOVOLOG) 1 VIAL SQ SCH ×4 (08:26→21:36)
[2023-02-08] MEDS ORDERED: TAMSULOSIN HCL 0.4 MG CAP ONE (08:27)
[2023-02-08] MEDS ORDERED: PIPERACILLIN/TAZOB 2.25 GM 2.25 GM/50 ML BAG IVPB ONE ×2 (08:28→17:44)
[2023-02-08] MEDS: TAMSULOSIN HCL 0.4 MG CAP PO SCH (08:51)
[2023-02-08] MEDS ORDERED: DULoxetine HCL 60 MG CAPSULE.DR PO SCH (10:00)
[2023-02-08] MEDS ORDERED: TIMOLOL 0.5% OPHTHALMIC SOL 5 ML BOTTLE OU SCH (10:00)
[2023-02-08] MEDS ORDERED: PATIENT'S OWN MEDICATION (NON-FORMULARY) (Brimonidine Tartrate/Timolol [Combigan 0.2%-0.5% OP SCH (10:00)
[2023-02-08] MEDS ORDERED: CARVEDILOL 12.5 MG TABLET (FP) ONE (10:31)
[2023-02-08] MEDS ORDERED: FAMOTIDINE 10 MG TABLET ONE (10:31)
[2023-02-08] MEDS ORDERED: FOLIC ACID 1 MG TABLET (FP) ONE (10:32)
[2023-02-08] MEDS ORDERED: MIRTAZAPINE 15 MG TABLET (FP) ONE (10:33)
[2023-02-08] MEDS: FAMOTIDINE 10 MG TABLET PO SCH ×2 (13:06→21:18)
[2023-02-08] MEDS: BRIMONIDINE TARTRATE 0.2% OPHTHALMIC 5 ML BOTTLE OU SCH ×2 (13:06→21:21)
[2023-02-08] MEDS: ATROPINE SO4 1% OPHTH SOLN 5 ML BOTTLE OU SCH (13:07)
[2023-02-08] MEDS: DULoxetine HCL 30 MG CAPSULE.DR PO SCH (13:08)
[2023-02-08] MEDS: FERROUS SO4 300 MG/5 ML ORAL SOLN UNIT DOSE CUPS PO SCH (13:08)
[2023-02-08] MEDS: MICONAZOLE NITRATE 28 GM TUBE TP SCH (13:08)
[2023-02-08] MEDS: CARVEDILOL 12.5 MG TABLET (FP) PO SCH ×2 (13:08→21:18)
[2023-02-08] MEDS: FOLIC ACID 1 MG TABLET (FP) PO SCH (13:08)
[2023-02-08] MEDS: MIRTAZAPINE 15 MG TABLET (FP) PO SCH (13:08)
[2023-02-08] MEDS: TIMOLOL 0.5% OPHTHALMIC SOL 5 ML BOTTLE OU SCH ×2 (13:09→22:22)
[2023-02-08 17:07] LABS: EPI CELLS 34 /uL (0-25.1); HYALINE CASTS 0 /uL (0-3.1); PH,URINE 5.5 (5.0-8.0); URINE APPEARANCE CLEAR; URINE BACTERIA 6 /uL (0-1359); URINE BILIRUBIN NEGATIVE (NEGATIVE); URINE COLOR YELLOW; URINE GLUCOSE (UA) 2+ (NEGATIVE); URINE KETONE NEGATIVE (NEGATIVE); URINE LEUK ESTERASE 1+ (NEGATIVE); URINE NITRITE NEGATIVE (NEGATIVE); URINE PROTEIN 2+ (NEGATIVE); URINE RBC 333 /uL (0-23.9); URINE UROBILINOGEN 0.2 mg/dL (0.2-1.0); URINE WBC 323 /uL (0-25.8)
[2023-02-08] MEDS: PIPERACILLIN/TAZOB 2.25 GM 2.25 GM in DEXTROSE 5%-WATER - 50 ML IVPB SCH (17:56)
[2023-02-08] MEDS: ATORVASTATIN CA 20 MG TABLET (FP) PO SCH (21:21)
[2023-02-09] MEDS: PIPERACILLIN/TAZOB 2.25 GM 2.25 GM in DEXTROSE 5%-WATER - 50 ML IVPB SCH ×3 (01:05→19:03)
[2023-02-09] MEDS ORDERED: INSULIN (NOVOLOG) ASPART 100 UNITS/ML 10ML VIAL ONE (06:38)
[2023-02-09] MEDS: INSULIN SLIDING SCALE (NOVOLOG) 1 VIAL SQ SCH ×4 (06:43→23:00)
[2023-02-09 07:41] LABS: HEMATOCRIT 32.2 % (35.4-49); HEMOGLOBIN 10.6 GM/dL (11.7-16.9); MCH 33.7 pg (25.7-33.7); MCHC 32.9 g/dl (32.0-35.9); MEAN CELL VOLUME 102.4 fl (80-96); MEAN PLT VOLUME 8.4 fl (7.5-11.1); PLATELET COUNT 183 10^3/uL (134-434); RBC 3.15 M/mm3 (4.00-5.60); RDW 14.8 % (11.9-15.9); WHITE BLOOD COUNT 6.3 K/mm3 (4.0-10.0)
[2023-02-09] MEDS: TAMSULOSIN HCL 0.4 MG CAP PO SCH (08:17)
[2023-02-09 08:21] LABS: POTASSIUM 5.1 mmol/L (3.5-5.1)
[2023-02-09 09:06] LABS: BLOOD UREA NITROGEN 78.8 mg/dL (7-18); CALCIUM 8.5 mg/dL (8.5-10.1)
[2023-02-09 09:09] LABS: CREATININE 3.6 mg/dL (0.55-1.3)
[2023-02-09] MEDS: DULoxetine HCL 30 MG CAPSULE.DR PO SCH (09:55)
[2023-02-09] MEDS: CARVEDILOL 12.5 MG TABLET (FP) PO SCH ×2 (09:55→21:54)
[2023-02-09] MEDS: MIRTAZAPINE 15 MG TABLET (FP) PO SCH (09:55)
[2023-02-09] MEDS: ASPIRIN 81 MG CHEWABLE TABLETS PO SCH (09:56)
[2023-02-09] MEDS: FERROUS SO4 300 MG/5 ML ORAL SOLN UNIT DOSE CUPS PO SCH (09:56)
[2023-02-09] MEDS: FOLIC ACID 1 MG TABLET (FP) PO SCH (09:56)
[2023-02-09] MEDS ORDERED: EPOETIN ALFA-EPBX 20,000 UNIT/ML VIAL SQ SCH (10:00)
[2023-02-09] MEDS: FAMOTIDINE 10 MG TABLET PO SCH ×2 (10:03→22:57)
[2023-02-09] MEDS ORDERED: NYSTATIN 100,000 UNIT/GM TOPICAL CREAM 15 GM TUBE TP SCH (10:45)
[2023-02-09] MEDS: ATROPINE SO4 1% OPHTH SOLN 5 ML BOTTLE OU SCH (13:01)
[2023-02-09] MEDS: TIMOLOL 0.5% OPHTHALMIC SOL 5 ML BOTTLE OU SCH ×2 (13:01→21:59)
[2023-02-09] MEDS: BRIMONIDINE TARTRATE 0.2% OPHTHALMIC 5 ML BOTTLE OU SCH ×2 (13:02→21:59)
[2023-02-09] MEDS: MICONAZOLE NITRATE 28 GM TUBE TP SCH (13:03)
[2023-02-09] MEDS ORDERED: ARTIFICIAL TEARS (POLYVINYL ALCOHOL) OPTH DROPS OU PRN (13:23)
[2023-02-09] MEDS ORDERED: PIPERACILLIN/TAZOBACTAM 2.25 GM VIAL IVPB ONE (18:30)
[2023-02-09] MEDS: ATORVASTATIN CA 20 MG TABLET (FP) PO SCH (21:54)
[2023-02-09] MEDS: HEPARIN NA (PORCINE) 5,000 UNITS/ML 1ML VIAL SQ SCH (21:54)
[2023-02-09] MEDS ORDERED: ZINC OXIDE 20% TOPICAL OINTMENT 30 GM TUBE TP SCH (22:00)
[2023-02-09] MEDS: ZINC OXIDE 20% TOPICAL OINTMENT 30 GM TUBE TP SCH (22:05)
[2023-02-09] MEDS: NYSTATIN 100,000 UNIT/GM TOPICAL CREAM 15 GM TUBE TP SCH (22:57)
[2023-02-10] MEDS: PIPERACILLIN/TAZOB 2.25 GM 2.25 GM in DEXTROSE 5%-WATER - 50 ML IVPB SCH ×2 (02:07→09:59)
[2023-02-10] MEDS: INSULIN SLIDING SCALE (NOVOLOG) 1 VIAL SQ SCH ×4 (06:24→21:05)
[2023-02-10] MEDS: HEPARIN NA (PORCINE) 5,000 UNITS/ML 1ML VIAL SQ SCH ×3 (06:24→21:34)
[2023-02-10 08:16] LABS: HEMATOCRIT 31.5 % (35.4-49); HEMOGLOBIN 10.2 GM/dL (11.7-16.9); MCH 33.6 pg (25.7-33.7); MCHC 32.3 g/dl (32.0-35.9); MEAN CELL VOLUME 104.1 fl (80-96); MEAN PLT VOLUME 8.4 fl (7.5-11.1); PLATELET COUNT 187 10^3/uL (134-434); RBC 3.02 M/mm3 (4.00-5.60); RDW 14.7 % (11.9-15.9); WHITE BLOOD COUNT 6.5 K/mm3 (4.0-10.0)
[2023-02-10 08:38] LABS: POTASSIUM 5.4 mmol/L (3.5-5.1)
[2023-02-10 08:45] LABS: ALBUMIN 2.7 g/dl (3.4-5.0); CALCIUM 8.7 mg/dL (8.5-10.1)
[2023-02-10 08:47] LABS: BILIRUBIN,TOTAL 0.3 mg/dL (0.2-1); CREATININE 4.5 mg/dL (0.55-1.3); TOT PROT 5.7 g/dl (6.4-8.2)
[2023-02-10] MEDS: ASPIRIN 81 MG CHEWABLE TABLETS PO SCH (10:02)
[2023-02-10] MEDS: DULoxetine HCL 30 MG CAPSULE.DR PO SCH (10:02)
[2023-02-10] MEDS: FERROUS SO4 300 MG/5 ML ORAL SOLN UNIT DOSE CUPS PO SCH (10:02)
[2023-02-10] MEDS: ATROPINE SO4 1% OPHTH SOLN 5 ML BOTTLE OU SCH (10:03)
[2023-02-10] MEDS: FAMOTIDINE 10 MG TABLET PO SCH ×2 (10:03→21:34)
[2023-02-10] MEDS: MIRTAZAPINE 15 MG TABLET (FP) PO SCH (10:03)
[2023-02-10] MEDS: TAMSULOSIN HCL 0.4 MG CAP PO SCH (10:03)
[2023-02-10] MEDS: CARVEDILOL 12.5 MG TABLET (FP) PO SCH ×2 (10:03→21:34)
[2023-02-10] MEDS: FOLIC ACID 1 MG TABLET (FP) PO SCH (10:03)
[2023-02-10] MEDS: NYSTATIN 100,000 UNIT/GM TOPICAL CREAM 15 GM TUBE TP SCH ×2 (10:03→22:50)
[2023-02-10] MEDS: ZINC OXIDE 20% TOPICAL OINTMENT 30 GM TUBE TP SCH ×2 (10:04→22:50)
[2023-02-10] MEDS: TIMOLOL 0.5% OPHTHALMIC SOL 5 ML BOTTLE OU SCH ×2 (10:04→22:50)
[2023-02-10] MEDS: BRIMONIDINE TARTRATE 0.2% OPHTHALMIC 5 ML BOTTLE OU SCH ×2 (10:04→22:45)
[2023-02-10] MEDS ORDERED: PSEUDOEPHEDRINE HCL 30 MG TABLET PO PRN (11:55)
[2023-02-10] MEDS ORDERED: SODIUM CHLORIDE 1,000 ML IV SCH (16:45)
[2023-02-10] MEDS ORDERED: ARTIFICIAL TEARS (POLYVINYL ALCOHOL) OPTH DROPS OU PRN (20:24)
[2023-02-10] MEDS ORDERED: ACETAMINOPHEN 325 MG TABLET (FP) PO PRN (20:24)
[2023-02-10] MEDS: ATORVASTATIN CA 20 MG TABLET (FP) PO SCH (21:34)
[2023-02-10] MEDS: SODIUM ZIRCONIUM CYCLOSILICATE (LOKELMA) 5 GM PACKET PO SCH (22:06)
[2023-02-11] MEDS: INSULIN SLIDING SCALE (NOVOLOG) 1 VIAL SQ SCH ×4 (06:24→22:37)
[2023-02-11] MEDS: HEPARIN NA (PORCINE) 5,000 UNITS/ML 1ML VIAL SQ SCH ×3 (06:24→22:36)
[2023-02-11] MEDS: TAMSULOSIN HCL 0.4 MG CAP PO SCH (08:28)
[2023-02-11 09:03] LABS: HEMATOCRIT 32.5 % (35.4-49); HEMOGLOBIN 10.8 GM/dL (11.7-16.9); MCH 34.1 pg (25.7-33.7); MCHC 33.3 g/dl (32.0-35.9); MEAN CELL VOLUME 102.2 fl (80-96); MEAN PLT VOLUME 8.4 fl (7.5-11.1); PLATELET COUNT 184 10^3/uL (134-434); RBC 3.18 M/mm3 (4.00-5.60); RDW 14.9 % (11.9-15.9); WHITE BLOOD COUNT 5.7 K/mm3 (4.0-10.0)
[2023-02-11 09:21] LABS: POTASSIUM 5.8 mmol/L (3.5-5.1)
[2023-02-11] MEDS: FERROUS SO4 300 MG/5 ML ORAL SOLN UNIT DOSE CUPS PO SCH (09:26)
[2023-02-11] MEDS: FOLIC ACID 1 MG TABLET (FP) PO SCH (09:27)
[2023-02-11] MEDS: MIRTAZAPINE 15 MG TABLET (FP) PO SCH (09:27)
[2023-02-11] MEDS: ASPIRIN 81 MG CHEWABLE TABLETS PO SCH (09:27)
[2023-02-11] MEDS: DULoxetine HCL 30 MG CAPSULE.DR PO SCH (09:27)
[2023-02-11] MEDS: FAMOTIDINE 10 MG TABLET PO SCH ×2 (09:28→22:35)
[2023-02-11] MEDS: CARVEDILOL 12.5 MG TABLET (FP) PO SCH ×2 (09:28→22:35)
[2023-02-11] MEDS: BRIMONIDINE TARTRATE 0.2% OPHTHALMIC 5 ML BOTTLE OU SCH ×2 (09:29→22:33)
[2023-02-11] MEDS: SODIUM ZIRCONIUM CYCLOSILICATE (LOKELMA) 5 GM PACKET PO SCH ×3 (09:29→22:37)
[2023-02-11 09:30] LABS: ALBUMIN 2.7 g/dl (3.4-5.0); BLOOD UREA NITROGEN 89.6 mg/dL (7-18); CALCIUM 8.3 mg/dL (8.5-10.1)
[2023-02-11] MEDS: ZINC OXIDE 20% TOPICAL OINTMENT 30 GM TUBE TP SCH ×2 (09:32→22:40)
[2023-02-11] MEDS: TIMOLOL 0.5% OPHTHALMIC SOL 5 ML BOTTLE OU SCH ×2 (09:32→22:32)
[2023-02-11] MEDS: NYSTATIN 100,000 UNIT/GM TOPICAL CREAM 15 GM TUBE TP SCH ×2 (09:33→22:38)
[2023-02-11 09:35] LABS: BILIRUBIN,TOTAL 0.3 mg/dL (0.2-1); TOT PROT 5.7 g/dl (6.4-8.2)
[2023-02-11] MEDS: ATROPINE SO4 1% OPHTH SOLN 5 ML BOTTLE OU SCH (11:08)
[2023-02-11] MEDS: SODIUM CHLORIDE 0.45% 1,000 ML IV SCH ×2 (12:25→23:49)
[2023-02-11 18:11] VITALS: BMI 27.4
[2023-02-11] MEDS: ASCORBIC ACID 250 MG TABLET (FP) PO SCH (18:50)
[2023-02-11] MEDS: MULTIVITAMINS (DAILY MVI) TABLET (FP) PO SCH (18:50)
[2023-02-11] MEDS: ATORVASTATIN CA 20 MG TABLET (FP) PO SCH (22:35)
[2023-02-12 03:22] VITALS: RESP 18
[2023-02-12] MEDS: HEPARIN NA (PORCINE) 5,000 UNITS/ML 1ML VIAL SQ SCH ×3 (05:55→21:41)
[2023-02-12] MEDS: INSULIN SLIDING SCALE (NOVOLOG) 1 VIAL SQ SCH ×4 (06:09→21:51)
[2023-02-12] MEDS: TAMSULOSIN HCL 0.4 MG CAP PO SCH (08:36)
[2023-02-12 09:27] LABS: BASO % 0.8 % (0-2.0); HEMATOCRIT 33.8 % (35.4-49); HEMOGLOBIN 11.2 GM/dL (11.7-16.9); LYMPH % 11.4 % (8-40); MCH 33.6 pg (25.7-33.7); MCHC 33.2 g/dl (32.0-35.9); MONO % 8.8 % (3.8-10.2); PLATELET COUNT 187 10^3/uL (134-434); RBC 3.34 M/mm3 (4.00-5.60); RDW 14.7 % (11.9-15.9); WHITE BLOOD COUNT 5.8 K/mm3 (4.0-10.0)
[2023-02-12 09:35] LABS: POTASSIUM 5.8 mmol/L (3.5-5.1)
[2023-02-12 09:37] LABS: CALCIUM 8.5 mg/dL (8.5-10.1)
[2023-02-12 09:38] LABS: ALBUMIN 2.8 g/dl (3.4-5.0); BLOOD UREA NITROGEN 75.6 mg/dL (7-18); MAGNESIUM 2.2 mg/dL (1.8-2.4)
[2023-02-12 09:41] LABS: CREATININE 3.8 mg/dL (0.55-1.3); PHOSPHOROUS 3.9 mg/dL (2.5-4.9)
[2023-02-12 09:42] LABS: BILIRUBIN,TOTAL 0.3 mg/dL (0.2-1); TOT PROT 5.8 g/dl (6.4-8.2)
[2023-02-12] MEDS: SODIUM ZIRCONIUM CYCLOSILICATE (LOKELMA) 5 GM PACKET PO SCH ×4 (09:50→21:42)
[2023-02-12] MEDS: DULoxetine HCL 30 MG CAPSULE.DR PO SCH (09:52)
[2023-02-12] MEDS: FOLIC ACID 1 MG TABLET (FP) PO SCH (09:53)
[2023-02-12] MEDS: ASCORBIC ACID 250 MG TABLET (FP) PO SCH (09:53)
[2023-02-12] MEDS: ASPIRIN 81 MG CHEWABLE TABLETS PO SCH (09:53)
[2023-02-12] MEDS: CARVEDILOL 12.5 MG TABLET (FP) PO SCH ×2 (09:53→21:41)
[2023-02-12] MEDS: FAMOTIDINE 10 MG TABLET PO SCH ×2 (09:53→21:41)
[2023-02-12] MEDS: MIRTAZAPINE 15 MG TABLET (FP) PO SCH (09:53)
[2023-02-12] MEDS: MULTIVITAMINS (DAILY MVI) TABLET (FP) PO SCH (09:53)
[2023-02-12] MEDS: NYSTATIN 100,000 UNIT/GM TOPICAL CREAM 15 GM TUBE TP SCH ×2 (09:54→21:39)
[2023-02-12] MEDS: ZINC OXIDE 20% TOPICAL OINTMENT 30 GM TUBE TP SCH ×2 (09:54→21:39)
[2023-02-12] MEDS: BRIMONIDINE TARTRATE 0.2% OPHTHALMIC 5 ML BOTTLE OU SCH ×2 (09:55→21:40)
[2023-02-12] MEDS: TIMOLOL 0.5% OPHTHALMIC SOL 5 ML BOTTLE OU SCH ×2 (09:55→22:30)
[2023-02-12] MEDS: FERROUS SO4 300 MG/5 ML ORAL SOLN UNIT DOSE CUPS PO SCH (09:56)
[2023-02-12] MEDS ORDERED: DEXTROSE 50%-WATER 25 GM/50 ML DISP.SYRIN IVPUSH ONE (10:45)
[2023-02-12] MEDS ORDERED: INSULIN REGULAR HUMAN 100 UNITS/ML *VIAL IVPUSH ONE (10:45)
[2023-02-12] MEDS: ATROPINE SO4 1% OPHTH SOLN 5 ML BOTTLE OU SCH (12:09)
[2023-02-12] MEDS ORDERED: FUROSEMIDE 40 MG/4 ML INJECTABLE VIAL IVPUSH ONE (15:30)
[2023-02-12 21:11] LABS: POTASSIUM 5.1 mmol/L (3.5-5.1)
[2023-02-12 21:12] LABS: CALCIUM 8.1 mg/dL (8.5-10.1)
[2023-02-12 21:13] LABS: BLOOD UREA NITROGEN 74.4 mg/dL (7-18)
[2023-02-12 21:16] LABS: CREATININE 3.7 mg/dL (0.55-1.3)
[2023-02-12] MEDS ORDERED: INSULIN (NOVOLOG) ASPART 100 UNITS/ML 10ML VIAL ONE (21:23)
[2023-02-12] MEDS: ATORVASTATIN CA 20 MG TABLET (FP) PO SCH (21:41)
[2023-02-12] MEDS ORDERED: SODIUM ZIRCONIUM CYCLOSILICATE (LOKELMA) 5 GM PACKET PO SCH (22:00)
[2023-02-13] MEDS: HEPARIN NA (PORCINE) 5,000 UNITS/ML 1ML VIAL SQ SCH ×3 (05:46→21:56)
[2023-02-13] MEDS: INSULIN SLIDING SCALE (NOVOLOG) 1 VIAL SQ SCH ×4 (06:24→22:00)
[2023-02-13] MEDS: TAMSULOSIN HCL 0.4 MG CAP PO SCH (08:41)
[2023-02-13 09:37] LABS: HEMATOCRIT 33.2 % (35.4-49); HEMOGLOBIN 10.6 GM/dL (11.7-16.9); MCHC 31.9 g/dl (32.0-35.9); MEAN CELL VOLUME 103.4 fl (80-96); MEAN PLT VOLUME 8.4 fl (7.5-11.1); PLATELET COUNT 215 10^3/uL (134-434); RBC 3.21 M/mm3 (4.00-5.60); RDW 14.7 % (11.9-15.9); WHITE BLOOD COUNT 5.9 K/mm3 (4.0-10.0)
[2023-02-13 10:01] LABS: POTASSIUM 5.2 mmol/L (3.5-5.1)
[2023-02-13 10:09] LABS: CALCIUM 8.7 mg/dL (8.5-10.1)
[2023-02-13 10:10] LABS: ALBUMIN 2.8 g/dl (3.4-5.0); BLOOD UREA NITROGEN 78.7 mg/dL (7-18); MAGNESIUM 2.1 mg/dL (1.8-2.4)
[2023-02-13 10:13] LABS: CREATININE 3.7 mg/dL (0.55-1.3); PHOSPHOROUS 4.5 mg/dL (2.5-4.9)
[2023-02-13 10:15] LABS: BILIRUBIN,TOTAL 0.3 mg/dL (0.2-1); TOT PROT 5.8 g/dl (6.4-8.2)
[2023-02-13] MEDS: MULTIVITAMINS (DAILY MVI) TABLET (FP) PO SCH (10:49)
[2023-02-13] MEDS: MIRTAZAPINE 15 MG TABLET (FP) PO SCH (10:49)
[2023-02-13] MEDS: FAMOTIDINE 10 MG TABLET PO SCH ×2 (10:49→21:45)
[2023-02-13] MEDS: ASPIRIN 81 MG CHEWABLE TABLETS PO SCH (10:50)
[2023-02-13] MEDS: FERROUS SO4 300 MG/5 ML ORAL SOLN UNIT DOSE CUPS PO SCH (10:50)
[2023-02-13] MEDS: SODIUM ZIRCONIUM CYCLOSILICATE (LOKELMA) 5 GM PACKET PO SCH ×2 (10:50→22:00)
[2023-02-13] MEDS: ASCORBIC ACID 250 MG TABLET (FP) PO SCH (10:50)
[2023-02-13] MEDS: FOLIC ACID 1 MG TABLET (FP) PO SCH (10:50)
[2023-02-13] MEDS: CARVEDILOL 12.5 MG TABLET (FP) PO SCH ×2 (10:50→21:45)
[2023-02-13] MEDS: DULoxetine HCL 30 MG CAPSULE.DR PO SCH (10:50)
[2023-02-13] MEDS: BRIMONIDINE TARTRATE 0.2% OPHTHALMIC 5 ML BOTTLE OU SCH ×2 (10:52→21:46)
[2023-02-13] MEDS: ATROPINE SO4 1% OPHTH SOLN 5 ML BOTTLE OU SCH (10:52)
[2023-02-13] MEDS: NYSTATIN 100,000 UNIT/GM TOPICAL CREAM 15 GM TUBE TP SCH ×2 (10:53→22:00)
[2023-02-13] MEDS: TIMOLOL 0.5% OPHTHALMIC SOL 5 ML BOTTLE OU SCH ×2 (11:52→22:04)
[2023-02-13] MEDS: ZINC OXIDE 20% TOPICAL OINTMENT 30 GM TUBE TP SCH ×2 (11:53→21:46)
[2023-02-13] MEDS ORDERED: INSULIN (NOVOLOG) ASPART 100 UNITS/ML 10ML VIAL ONE (21:10)
[2023-02-13] MEDS: ATORVASTATIN CA 20 MG TABLET (FP) PO SCH (21:45)
[2023-02-14] MEDS: HEPARIN NA (PORCINE) 5,000 UNITS/ML 1ML VIAL SQ SCH (05:47)
[2023-02-14] MEDS: INSULIN SLIDING SCALE (NOVOLOG) 1 VIAL SQ SCH ×2 (06:13→10:46)
[2023-02-14] MEDS: TAMSULOSIN HCL 0.4 MG CAP PO SCH (08:01)
[2023-02-14 08:09] VITALS: BP 141/64; PULSE 78; TEMP 97.6
[2023-02-14] MEDS: CARVEDILOL 12.5 MG TABLET (FP) PO SCH (09:57)
[2023-02-14] MEDS: FAMOTIDINE 10 MG TABLET PO SCH (09:57)
[2023-02-14] MEDS: ASCORBIC ACID 250 MG TABLET (FP) PO SCH (09:57)
[2023-02-14] MEDS: DULoxetine HCL 30 MG CAPSULE.DR PO SCH (09:57)
[2023-02-14] MEDS: FOLIC ACID 1 MG TABLET (FP) PO SCH (09:57)
[2023-02-14] MEDS: MIRTAZAPINE 15 MG TABLET (FP) PO SCH (09:57)
[2023-02-14] MEDS: ASPIRIN 81 MG CHEWABLE TABLETS PO SCH (09:57)
[2023-02-14] MEDS: SODIUM ZIRCONIUM CYCLOSILICATE (LOKELMA) 5 GM PACKET PO SCH (09:58)
[2023-02-14] MEDS: MULTIVITAMINS (DAILY MVI) TABLET (FP) PO SCH (09:58)
[2023-02-14] MEDS: TIMOLOL 0.5% OPHTHALMIC SOL 5 ML BOTTLE OU SCH (09:59)
[2023-02-14] MEDS: ATROPINE SO4 1% OPHTH SOLN 5 ML BOTTLE OU SCH (10:00)
[2023-02-14] MEDS: NYSTATIN 100,000 UNIT/GM TOPICAL CREAM 15 GM TUBE TP SCH (10:00)
[2023-02-14] MEDS: BRIMONIDINE TARTRATE 0.2% OPHTHALMIC 5 ML BOTTLE OU SCH (10:00)
[2023-02-14] MEDS: FERROUS SO4 300 MG/5 ML ORAL SOLN UNIT DOSE CUPS PO SCH (10:01)
[2023-02-14] MEDS: ZINC OXIDE 20% TOPICAL OINTMENT 30 GM TUBE TP SCH (10:01)
[2023-02-14] MEDS ORDERED: INSULIN (NOVOLOG) ASPART 100 UNITS/ML 10ML VIAL ONE (10:37)
[2023-02-16] MEDS ORDERED: EPOETIN ALFA-EPBX 20,000 UNIT/ML VIAL SQ SCH (10:00)
== END 2023-02-14 13:41 | DRG 194 ==
LOC: JER 00:16 → JERBED 03:41 → OBSVTOIN 08:50 → J4W 19:06 → J6S 02-10 20:22
PROVIDERS: ADMIT Internal Medicine; ATTEND Internal Medicine
DX: J18.0 Bronchopneumonia, unspecified organism (principal); I13.0 Hypertensive heart and chronic kidney disease with heart failure and stage 1 through stage 4 chronic kidney disease, or unspecified chronic kidney disease; I69.354 Hemiplegia and hemiparesis following cerebral infarction affecting left non-dominant side; J98.11 Atelectasis; I50.32 Chronic diastolic (congestive) heart failure; N17.9 Acute kidney failure, unspecified; J44.0 Chronic obstructive pulmonary disease with (acute) lower respiratory infection; I25.10 Atherosclerotic heart disease of native coronary artery without angina pectoris; E78.5 Hyperlipidemia, unspecified; J44.9 Chronic obstructive pulmonary disease, unspecified; E11.22 Type 2 diabetes mellitus with diabetic chronic kidney disease; N18.30 Chronic kidney disease, stage 3 unspecified; E87.5 Hyperkalemia; K57.90 Diverticulosis of intestine, part unspecified, without perforation or abscess without bleeding; I45.10 Unspecified right bundle-branch block; D64.9 Anemia, unspecified; H54.8 Legal blindness, as defined in USA; L30.4 Erythema intertrigo; E11.42 Type 2 diabetes mellitus with diabetic polyneuropathy; Z95.5 Presence of coronary angioplasty implant and graft
CPT/HCPCS: 0241U-QW; 36415; 71045-TC-FY; 71250-TC; 76775-TC; 80048; 80053; 80061; 81003; 82962; 83605; 83735; 83880; 84100; 84484; 85025; 85027; 85610; 85730; 87040; 87086; 93005; 93010; 93306-TC; 97116-GP; 97161-GP; 99285-25; G0378; J1644

== ENCOUNTER 2023-10-31 09:57 | Inpatient (IN) | payer OTHER ==
[2023-10-31 11:12] LABS: BASO % 0.3 % (0-2.0); EOS % 0.1 % (0-4.5); HEMATOCRIT 21.5 % (35.4-49); HEMOGLOBIN 7.4 GM/dL (11.7-16.9); LYMPH % 5.2 % (8-40); MCH 34.1 pg (25.7-33.7); MCHC 34.3 g/dl (32.0-35.9); MEAN CELL VOLUME 99.4 fl (80-96); MEAN PLT VOLUME 7.4 fl (7.5-11.1); NEUT % 86.4 % (42.8-82.8); PLATELET COUNT 188 10^3/uL (134-434); RBC 2.17 M/mm3 (4.00-5.60); RDW 16.4 % (11.9-15.9); WHITE BLOOD COUNT 9.3 K/mm3 (4.0-10.0)
[2023-10-31 11:17] LABS: INR 1.25 (0.83-1.09)
[2023-10-31 11:20] LABS: ACTIVATED PTT 33.2 SECONDS (25.2-36.5)
[2023-10-31 12:00] LABS: BLOOD UREA NITROGEN 46.7 mg/dL (7-18); MAGNESIUM 1.8 mg/dL (1.8-2.4)
[2023-10-31 12:01] LABS: ALBUMIN 2.5 g/dl (3.4-5.0)
[2023-10-31 12:04] LABS: CREATININE 2.9 mg/dL (0.55-1.3)
[2023-10-31 12:05] LABS: BILIRUBIN,TOTAL 0.4 mg/dL (0.2-1); TOT PROT 5.2 g/dl (6.4-8.2)
[2023-10-31] MEDS: KCL 10 MEQ IVPB 10 MEQ/100 ML INFUS.BAG IVPB SCH (16:00)
[2023-10-31] MEDS ORDERED: KCL 10 MEQ IVPB 30 MEQ/300 ML INFUS.BAG IVPB ONE (16:11)
[2023-10-31] MEDS ORDERED: PIPERACILLIN/TAZOB 3.375 GM 3.375 GM in DEXTROSE 5%-WATER - 50 ML IVPB SCH (18:00)
[2023-11-01] MEDS: PIPERACILLIN/TAZOB 3.375 GM 3.375 GM in DEXTROSE 5%-WATER - 50 ML IVPB ONE (00:02)
[2023-11-01 00:22] VITALS: BMI 24.7
[2023-11-01] MEDS: amLODIPine BESYLATE 10 MG TABLET (FP) PO ONE (02:34)
[2023-11-01] MEDS: PIPERACILLIN/TAZOB 3.375 GM 3.375 GM in DEXTROSE 5%-WATER - 50 ML IVPB SCH (04:08)
[2023-11-01 08:26] LABS: BASO % 0.2 % (0-2.0); EOS % 1.2 % (0-4.5); HEMATOCRIT 25.8 % (35.4-49); LYMPH % 6.1 % (8-40); MCH 33.8 pg (25.7-33.7); MCHC 34.8 g/dl (32.0-35.9); MEAN CELL VOLUME 97.1 fl (80-96); NEUT % 83.5 % (42.8-82.8); PLATELET COUNT 194 10^3/uL (134-434); RBC 2.66 M/mm3 (4.00-5.60); RDW 17.9 % (11.9-15.9); WHITE BLOOD COUNT 9.7 K/mm3 (4.0-10.0)
[2023-11-01 08:54] LABS: POTASSIUM 3.4 mmol/L (3.5-5.1)
[2023-11-01 08:56] LABS: CALCIUM 8.1 mg/dL (8.5-10.1)
[2023-11-01 08:57] LABS: ALBUMIN 2.5 g/dl (3.4-5.0); BLOOD UREA NITROGEN 49.7 mg/dL (7-18)
[2023-11-01] MEDS: POLYETHYLENE GLYCOL (HEALTHYLAX) 3350 17 GM PACKET PO SCH (08:58)
[2023-11-01 09:00] LABS: CREATININE 2.9 mg/dL (0.55-1.3)
[2023-11-01 09:03] LABS: BILIRUBIN,TOTAL 0.7 mg/dL (0.2-1); TOT PROT 5.1 g/dl (6.4-8.2)
[2023-11-01] MEDS: CARVEDILOL 25 MG TABLET (FP) PO SCH (09:53)
[2023-11-01] MEDS: ENOXAPARIN NA (PORCINE) 30 MG/0.3 ML DISP.SYRIN SQ SCH (09:54)
[2023-11-01] MEDS: SENNOSIDES/DOCUSATE COMBO (SENNA PLUS) TABLET (UD) PO SCH (09:54)
[2023-11-01] MEDS: DOCUSATE NA 100 MG/10 ML UNIT-DOSE CUPS PO SCH (09:55)
[2023-11-01] MEDS ORDERED: ENOXAPARIN NA (PORCINE) 40 MG/0.4 ML DISP.SYRIN SQ SCH (10:00)
[2023-11-01] MEDS: POTASSIUM CHLORIDE ORAL LIQUID 20 MEQ/15 ML PO ONE (16:12)
[2023-11-01 16:23] LABS: POTASSIUM 3.2 mmol/L (3.5-5.1)
[2023-11-01 16:26] LABS: BLOOD UREA NITROGEN 50.4 mg/dL (7-18); CALCIUM 7.8 mg/dL (8.5-10.1)
[2023-11-01 16:30] LABS: CREATININE 3.3 mg/dL (0.55-1.3)
[2023-11-01] MEDS: FAMOTIDINE 20 MG TABLET PO SCH (21:38)
[2023-11-01] MEDS: MIRTAZAPINE 15 MG TABLET (FP) PO SCH (21:39)
[2023-11-01] MEDS: TIMOLOL 0.5% OPHTHALMIC SOL 5 ML BOTTLE OU SCH (21:56)
[2023-11-01] MEDS: BRIMONIDINE TARTRATE 0.15% OPHTHALMIC 5 ML BOTTLE OU SCH (21:56)
[2023-11-02 08:25] LABS: BASO % 0.5 % (0-2.0); EOS % 5.5 % (0-4.5); HEMATOCRIT 27.3 % (35.4-49); HEMOGLOBIN 9.3 GM/dL (11.7-16.9); LYMPH % 9.3 % (8-40); MCH 33.6 pg (25.7-33.7); MCHC 34.1 g/dl (32.0-35.9); MEAN CELL VOLUME 98.7 fl (80-96); MEAN PLT VOLUME 7.9 fl (7.5-11.1); MONO % 11.8 % (3.8-10.2); NEUT % 72.9 % (42.8-82.8); PLATELET COUNT 218 10^3/uL (134-434); RBC 2.76 M/mm3 (4.00-5.60); RDW 18.2 % (11.9-15.9); WHITE BLOOD COUNT 8.1 K/mm3 (4.0-10.0)
[2023-11-02 08:30] LABS: ALBUMIN 2.7 g/dl (3.4-5.0); BLOOD UREA NITROGEN 55.3 mg/dL (7-18); CALCIUM 7.9 mg/dL (8.5-10.1); MAGNESIUM 1.9 mg/dL (1.8-2.4)
[2023-11-02 08:33] LABS: CREATININE 3.5 mg/dL (0.55-1.3); PHOSPHOROUS 4.2 mg/dL (2.5-4.9)
[2023-11-02 08:35] LABS: BILIRUBIN,TOTAL 0.5 mg/dL (0.2-1); TOT PROT 5.7 g/dl (6.4-8.2)
[2023-11-02] MEDS ORDERED: DULoxetine HCL 30 MG CAPSULE.DR PO ONE (09:35)
[2023-11-02] MEDS: TAMSULOSIN HCL 0.4 MG CAP PO SCH (09:51)
[2023-11-02] MEDS: FOLIC ACID 1 MG TABLET (FP) PO SCH (09:51)
[2023-11-02] MEDS: CARVEDILOL 12.5 MG TABLET (FP) PO SCH (09:52)
[2023-11-02] MEDS: DULoxetine HCL 60 MG CAPSULE.DR PO SCH (09:52)
[2023-11-02] MEDS: VITAMIN B COMP W-C 1 EA TABLET (NEPHRO-VITE) PO SCH (09:53)
[2023-11-02] MEDS: POLYETHYLENE GLYCOL (HEALTHYLAX) 3350 17 GM PACKET PO SCH (13:30)
[2023-11-02] MEDS: SODIUM CHLORIDE 1,000 ML IV SCH (21:41)
[2023-11-03 07:52] LABS: POTASSIUM 4.3 mmol/L (3.5-5.1)
[2023-11-03 07:53] LABS: CALCIUM 7.7 mg/dL (8.5-10.1)
[2023-11-03 07:54] LABS: BLOOD UREA NITROGEN 56.6 mg/dL (7-18); MAGNESIUM 2.1 mg/dL (1.8-2.4)
[2023-11-03 07:57] LABS: CREATININE 3.5 mg/dL (0.55-1.3); PHOSPHOROUS 3.7 mg/dL (2.5-4.9)
[2023-11-03] MEDS ORDERED: DULoxetine HCL 30 MG CAPSULE.DR PO ONE (10:38)
[2023-11-03] MEDS: DOCUSATE NA 100 MG/10 ML UNIT-DOSE CUPS PO SCH (10:46)
[2023-11-03] MEDS: ENOXAPARIN NA (PORCINE) 30 MG/0.3 ML DISP.SYRIN SQ SCH (10:47)
[2023-11-03 19:03] VITALS: RESP 20
[2023-11-03 22:38] VITALS: BP 168/67; PULSE 72; TEMP 99.1
== END 2023-11-04 02:50 | DRG 389 ==
LOC: JER 09:57 → JERBED 12:51 → J4W 18:02 → J7W 11-01 20:42
PROVIDERS: ADMIT Internal Medicine; ATTEND Internal Medicine
PROC: 30233N1 Transfusion of Nonautologous Red Blood Cells into Peripheral Vein, Percutaneous Approach (ICD-10-PCS; principal; 2023-10-31)
DX: K56.41 Fecal impaction (principal); I13.0 Hypertensive heart and chronic kidney disease with heart failure and stage 1 through stage 4 chronic kidney disease, or unspecified chronic kidney disease; I50.32 Chronic diastolic (congestive) heart failure; I69.354 Hemiplegia and hemiparesis following cerebral infarction affecting left non-dominant side; E11.51 Type 2 diabetes mellitus with diabetic peripheral angiopathy without gangrene; E11.22 Type 2 diabetes mellitus with diabetic chronic kidney disease; H54.8 Legal blindness, as defined in USA; K57.30 Diverticulosis of large intestine without perforation or abscess without bleeding; N18.9 Chronic kidney disease, unspecified; D63.1 Anemia in chronic kidney disease; K62.89 Other specified diseases of anus and rectum; I25.10 Atherosclerotic heart disease of native coronary artery without angina pectoris; Z95.5 Presence of coronary angioplasty implant and graft
CPT/HCPCS: 36415; 36430; 71045-TC-FY; 74176-TC; 80048; 80053; 82272; 82607; 82728; 82746; 83540; 83550; 83605; 83735; 84100; 84484; 85025; 85610; 85730; 86850; 86900; 86901; 86922; 93005; 93010; 99285-25; P9058

== ENCOUNTER 2024-03-27 04:10 | Day surgery (SDC) | payer OTHER ==
[2024-03-25 10:26] VITALS: BMI 24.7
[2024-03-27] MEDS ORDERED: HEPARIN NA (PORCINE) 5,000 UNITS/ML 1ML VIAL ONE (07:32)
[2024-03-27] MEDS ORDERED: LIDOCAINE HCL 1%, 10 MG/ML (20ML VIAL) ONE (07:32)
[2024-03-27] MEDS ORDERED: PAPAVERINE HCL 30 MG/1 ML 10 ML VIAL NR ONE (07:51)
[2024-03-27] MEDS ORDERED: ROPIVACAINE HCL 0.5% 30ML VIAL ONE (10:02)
[2024-03-27] MEDS ORDERED: PROPOFOL 20 ML ONE (10:20)
[2024-03-27] MEDS ORDERED: ceFAZolin SODIUM 1 GM VIAL ONE (10:36)
[2024-03-27] MEDS: ceFAZolin 2 GRAM PREMIX BAG IVPB ONE ×2 (10:37)
[2024-03-27] MEDS: LIDOCAINE HCL 1%, 10 MG/ML (20ML VIAL) NR ONE ×2 (10:40)
[2024-03-27 13:51] VITALS: RESP 16; TEMP 97.6
[2024-03-27 14:55] VITALS: BP 144/70; PULSE 2
== END 2024-03-27 15:08 ==
LOC: JASU-SURG 04:10
PROVIDERS: ATTEND Surgery
PROC: 03180ZD Bypass Left Brachial Artery to Upper Arm Vein, Open Approach (ICD-10-PCS; principal; 2024-03-27 10:00)
DX: I12.0 Hypertensive chronic kidney disease with stage 5 chronic kidney disease or end stage renal disease (principal); N18.6 End stage renal disease; E11.22 Type 2 diabetes mellitus with diabetic chronic kidney disease; Z79.4 Long term (current) use of insulin
CPT/HCPCS: 82962; 94760; J1644

== ENCOUNTER 2024-06-06 17:25 | Inpatient (IN) | payer OTHER ==
[2024-06-06 18:58] LABS: BASO % 0.9 % (0-2.0); EOS % 6.1 % (0-4.5); HEMATOCRIT 27.5 % (35.4-49); HEMOGLOBIN 8.6 GM/dL (11.7-16.9); LYMPH % 12.2 % (8-40); MCH 30.8 pg (25.7-33.7); MCHC 31.2 g/dl (32.0-35.9); MEAN CELL VOLUME 98.6 fl (80-96); MEAN PLT VOLUME 6.6 fl (7.5-11.1); MONO % 7.9 % (3.8-10.2); NEUT % 72.9 % (42.8-82.8); PLATELET COUNT 193 10^3/uL (134-434); RBC 2.79 M/mm3 (4.00-5.60); RDW 19.4 % (11.9-15.9); WHITE BLOOD COUNT 3.9 K/mm3 (4.0-10.0)
[2024-06-06 19:14] LABS: INR 1.17 (0.83-1.09); PROTHROMBIN TIME (PATIENT) 12.7 SEC (9.7-13.0)
[2024-06-06 19:16] LABS: ACTIVATED PTT 34.6 SECONDS (25.2-36.5)
[2024-06-06 19:19] LABS: CHLORIDE 105 mmol/L (98-107); POTASSIUM 4.4 mmol/L (3.5-5.1); SODIUM 141 mmol/L (136-145)
[2024-06-06 19:21] LABS: ALBUMIN 2.6 g/dl (3.4-5.0); ANION GAP 1 mmol/L (4-13); BLOOD UREA NITROGEN 73.2 mg/dL (7-18); CALCIUM 8.5 mg/dL (8.5-10.1); CO2 35 mmol/L (21-32); GLUCOSE,RANDOM 105 mg/dL (74-106); MAGNESIUM 2.6 mg/dL (1.8-2.4)
[2024-06-06 19:24] LABS: CREATININE 3.9 mg/dL (0.55-1.3); SGOT/AST 8 U/L (15-37); SGPT/ALT 12 U/L (13-61)
[2024-06-06 19:25] LABS: BILIRUBIN,TOTAL 0.4 mg/dL (0.2-1); TOT PROT 5.5 g/dl (6.4-8.2)
[2024-06-06 19:27] LABS: ALK PHOS 63 U/L (45-117)
[2024-06-06] MEDS ORDERED: FAMOTIDINE 20 MG TABLET ONE (23:25)
[2024-06-06] MEDS ORDERED: ALBUTEROL SO4 2.5/IPRATROPIUM 0.5 INH SOL 3 ML VIAL.NEB. NEB ONE (23:25)
[2024-06-06] MEDS ORDERED: CARVEDILOL 25 MG TABLET (FP) ONE (23:25)
[2024-06-06] MEDS: FAMOTIDINE 20 MG TABLET PO SCH (23:45)
[2024-06-06] MEDS: ALBUTEROL SO4 2.5/IPRATROPIUM 0.5 INH SOL 3 ML VIAL.NEB. NEB SCH (23:45)
[2024-06-06] MEDS: CARVEDILOL 6.25 MG TABLET (FP) PO SCH (23:45)
[2024-06-06] MEDS: INSULIN ASPART SLIDING SCALE (NOVOLOG) 1 VIAL SQ SCH (23:46)
[2024-06-06] MEDS: BRIMONIDINE TARTRATE 0.15% OPHTHALMIC 5 ML BOTTLE OU SCH (23:54)
[2024-06-06] MEDS: TIMOLOL 0.5% OPHTHALMIC SOL 5 ML BOTTLE OU SCH (23:54)
[2024-06-07] MEDS: HEPARIN NA (PORCINE) 5,000 UNITS/ML 1ML VIAL SQ SCH (05:10)
[2024-06-07 08:33] LABS: HEMOGLOBIN 8.7 GM/dL (11.7-16.9); MCH 31.1 pg (25.7-33.7); MEAN CELL VOLUME 100.2 fl (80-96); MEAN PLT VOLUME 7.4 fl (7.5-11.1); PLATELET COUNT 205 10^3/uL (134-434); RBC 2.79 M/mm3 (4.00-5.60); RDW 19.5 % (11.9-15.9); WHITE BLOOD COUNT 3.4 K/mm3 (4.0-10.0)
[2024-06-07 08:53] LABS: POTASSIUM 4.2 mmol/L (3.5-5.1)
[2024-06-07 08:57] LABS: ALBUMIN 2.5 g/dl (3.4-5.0); BLOOD UREA NITROGEN 73.2 mg/dL (7-18); CALCIUM 8.3 mg/dL (8.5-10.1); MAGNESIUM 2.6 mg/dL (1.8-2.4)
[2024-06-07 09:00] LABS: CREATININE 3.8 mg/dL (0.55-1.3)
[2024-06-07 09:01] LABS: PHOSPHOROUS 3.8 mg/dL (2.5-4.9)
[2024-06-07 09:02] LABS: BILIRUBIN,TOTAL 0.3 mg/dL (0.2-1); TOT PROT 5.4 g/dl (6.4-8.2)
[2024-06-07 09:24] LABS: ANISOCYTOSIS 1+; MACROCYTOSIS 1+
[2024-06-07] MEDS: ASPIRIN 81 MG CHEWABLE TABLETS PO SCH (11:01)
[2024-06-07] MEDS: VITAMIN B COMP W-C 1 EA TABLET (NEPHRO-VITE) PO SCH (11:06)
[2024-06-07] MEDS: TAMSULOSIN HCL 0.4 MG CAP PO SCH (11:06)
[2024-06-07] MEDS: DULoxetine HCL 30 MG CAPSULE.DR PO SCH (11:06)
[2024-06-07] MEDS: FOLIC ACID 1 MG TABLET (FP) PO SCH (11:06)
[2024-06-07] MEDS: amLODIPine BESYLATE 10 MG TABLET (FP) PO SCH (11:09)
[2024-06-07] MEDS: FUROSEMIDE 40 MG/4 ML INJECTABLE VIAL IVPUSH SCH (13:54)
[2024-06-07 17:24] LABS: HIV INTERPRETATION NEGATIVE (NEGATIVE)
[2024-06-08] MEDS: POLYETHYLENE GLYCOL (HEALTHYLAX) 3350 17 GM PACKET PO SCH (10:29)
[2024-06-08 10:31] LABS: BASO % 0.7 % (0-2.0); EOS % 4.1 % (0-4.5); HEMATOCRIT 24.8 % (35.4-49); HEMOGLOBIN 7.8 GM/dL (11.7-16.9); MCH 31.2 pg (25.7-33.7); MCHC 31.5 g/dl (32.0-35.9); MEAN PLT VOLUME 7.2 fl (7.5-11.1); MONO % 7.1 % (3.8-10.2); NEUT % 76.1 % (42.8-82.8); PLATELET COUNT 173 10^3/uL (134-434); RBC 2.51 M/mm3 (4.00-5.60); RDW 19.3 % (11.9-15.9); WHITE BLOOD COUNT 4.7 K/mm3 (4.0-10.0)
[2024-06-08 13:17] LABS: BLOOD UREA NITROGEN 77.4 mg/dL (7-18); CALCIUM 7.9 mg/dL (8.5-10.1); CREATININE 3.9 mg/dL (0.55-1.3); MAGNESIUM 2.4 mg/dL (1.8-2.4); PHOSPHOROUS 4.1 mg/dL (2.5-4.9); POTASSIUM 4.4 mmol/L (3.5-5.1)
[2024-06-08 15:43] VITALS: BMI 24.7
[2024-06-08] MEDS: MIRTAZAPINE 15 MG TABLET (FP) PO SCH (22:02)
[2024-06-08] MEDS: SENNOSIDES 8.6MG TABLET (FP) PO SCH (22:02)
[2024-06-10 08:34] LABS: BASO % 0.7 % (0-2.0); EOS % 4.8 % (0-4.5); HEMATOCRIT 25.1 % (35.4-49); HEMOGLOBIN 7.9 GM/dL (11.7-16.9); LYMPH % 13.3 % (8-40); MCH 30.9 pg (25.7-33.7); MCHC 31.6 g/dl (32.0-35.9); MEAN CELL VOLUME 97.8 fl (80-96); MEAN PLT VOLUME 7.4 fl (7.5-11.1); MONO % 7.9 % (3.8-10.2); NEUT % 73.3 % (42.8-82.8); PLATELET COUNT 167 10^3/uL (134-434); RBC 2.57 M/mm3 (4.00-5.60); RDW 19.2 % (11.9-15.9); WHITE BLOOD COUNT 4.1 K/mm3 (4.0-10.0)
[2024-06-10 09:05] LABS: POTASSIUM 5.6 mmol/L (3.5-5.1)
[2024-06-10 09:23] LABS: ALBUMIN 2.5 g/dl (3.4-5.0); BILIRUBIN,TOTAL 0.4 mg/dL (0.2-1); BLOOD UREA NITROGEN 86.4 mg/dL (7-18); CALCIUM 7.8 mg/dL (8.5-10.1); CREATININE 4.5 mg/dL (0.55-1.3); MAGNESIUM 2.6 mg/dL (1.8-2.4); PHOSPHOROUS 4.1 mg/dL (2.5-4.9); TOT PROT 5.2 g/dl (6.4-8.2)
[2024-06-10] MEDS: SODIUM ZIRCONIUM CYCLOSILICATE (LOKELMA) 5 GM PACKET PO ONE (15:04)
[2024-06-10] MEDS: BACITRACIN 3.5 GM OPTHALMIC OINT TUBE OU SCH (16:29)
[2024-06-10] MEDS: ERYTHROMYCIN 0.5% OPHTHALMIC OINTMENT 3.5 GM TUBE OU SCH (17:32)
[2024-06-10] MEDS: ATROPINE SO4 1% OPHTH SOLN 5 ML BOTTLE OU SCH (21:58)
[2024-06-11 09:01] LABS: HEMATOCRIT 22.9 % (35.4-49); HEMOGLOBIN 7.3 GM/dL (11.7-16.9); MCH 31.5 pg (25.7-33.7); MCHC 31.8 g/dl (32.0-35.9); MEAN PLT VOLUME 7.9 fl (7.5-11.1); PLATELET COUNT 150 10^3/uL (134-434); RBC 2.31 M/mm3 (4.00-5.60); RDW 19.2 % (11.9-15.9); WHITE BLOOD COUNT 3.6 K/mm3 (4.0-10.0)
[2024-06-11 09:18] LABS: POTASSIUM 5.5 mmol/L (3.5-5.1)
[2024-06-11 09:21] LABS: BLOOD UREA NITROGEN 82.7 mg/dL (7-18); CALCIUM 7.3 mg/dL (8.5-10.1); MAGNESIUM 2.4 mg/dL (1.8-2.4)
[2024-06-11 09:25] LABS: CREATININE 4.6 mg/dL (0.55-1.3); PHOSPHOROUS 4.2 mg/dL (2.5-4.9)
[2024-06-11] MEDS ORDERED: SODIUM CHLORIDE 250 ML IV PRN (12:54)
[2024-06-11] MEDS: HEPARIN NA (PORCINE) 5,000 UNITS/ML 1ML VIAL IVPUSH ONE (14:40)
[2024-06-12 09:21] LABS: HEMATOCRIT 25.6 % (35.4-49); HEMOGLOBIN 8.1 GM/dL (11.7-16.9); MCH 31.6 pg (25.7-33.7); MCHC 31.7 g/dl (32.0-35.9); MEAN CELL VOLUME 99.7 fl (80-96); MEAN PLT VOLUME 7.3 fl (7.5-11.1); PLATELET COUNT 145 10^3/uL (134-434); RBC 2.56 M/mm3 (4.00-5.60); RDW 19.1 % (11.9-15.9); WHITE BLOOD COUNT 3.2 K/mm3 (4.0-10.0)
[2024-06-12 09:38] LABS: POTASSIUM 5.2 mmol/L (3.5-5.1)
[2024-06-12 09:41] LABS: CALCIUM 7.5 mg/dL (8.5-10.1)
[2024-06-12 09:42] LABS: MAGNESIUM 2.2 mg/dL (1.8-2.4)
[2024-06-12 09:45] LABS: CREATININE 3.5 mg/dL (0.55-1.3); PHOSPHOROUS 3.5 mg/dL (2.5-4.9)
[2024-06-12 09:46] LABS: BLOOD UREA NITROGEN 56.5 mg/dL (7-18)
[2024-06-12] MEDS ORDERED: SODIUM CHLORIDE 250 ML IV PRN (12:14)
[2024-06-12] MEDS: TORSEMIDE 20 MG TABLET (FP) PO SCH (13:31)
[2024-06-13] MEDS: HEPARIN NA (PORCINE) 5,000 UNITS/ML 1ML VIAL IVPUSH ONE (10:10)
[2024-06-13 10:24] LABS: HEMATOCRIT 23.8 % (35.4-49); HEMOGLOBIN 7.5 GM/dL (11.7-16.9); MCH 30.9 pg (25.7-33.7); MCHC 31.3 g/dl (32.0-35.9); MEAN CELL VOLUME 98.8 fl (80-96); MEAN PLT VOLUME 7.5 fl (7.5-11.1); PLATELET COUNT 133 10^3/uL (134-434); RBC 2.41 M/mm3 (4.00-5.60); RDW 18.4 % (11.9-15.9); WHITE BLOOD COUNT 2.5 K/mm3 (4.0-10.0)
[2024-06-13 10:45] LABS: CALCIUM 7.5 mg/dL (8.5-10.1)
[2024-06-13 10:46] LABS: BLOOD UREA NITROGEN 61.8 mg/dL (7-18)
[2024-06-13 10:48] LABS: CREATININE 3.9 mg/dL (0.55-1.3)
[2024-06-13] MEDS: EPOETIN ALFA-EPBX 10,000 UNIT/ML VIAL SQ ONE (12:14)
[2024-06-14 08:41] LABS: HEMATOCRIT 22.8 % (35.4-49); HEMOGLOBIN 7.3 GM/dL (11.7-16.9); MCH 31.9 pg (25.7-33.7); MCHC 32.2 g/dl (32.0-35.9); MEAN PLT VOLUME 7.5 fl (7.5-11.1); PLATELET COUNT 124 10^3/uL (134-434); RBC 2.31 M/mm3 (4.00-5.60); RDW 18.5 % (11.9-15.9); WHITE BLOOD COUNT 2.8 K/mm3 (4.0-10.0)
[2024-06-14 09:03] LABS: POTASSIUM 5.6 mmol/L (3.5-5.1)
[2024-06-14 09:07] LABS: BLOOD UREA NITROGEN 44.1 mg/dL (7-18); CALCIUM 7.2 mg/dL (8.5-10.1)
[2024-06-14 09:10] LABS: CREATININE 3.4 mg/dL (0.55-1.3)
[2024-06-14 09:11] LABS: PHOSPHOROUS 3.6 mg/dL (2.5-4.9)
[2024-06-14] MEDS ORDERED: SODIUM CHLORIDE 250 ML IV PRN (11:02)
[2024-06-14] MEDS: SODIUM ZIRCONIUM CYCLOSILICATE (LOKELMA) 5 GM PACKET PO SCH (16:16)
[2024-06-15 09:05] LABS: HEMATOCRIT 22.5 % (35.4-49); HEMOGLOBIN 7.2 GM/dL (11.7-16.9); MCH 31.6 pg (25.7-33.7); MCHC 31.8 g/dl (32.0-35.9); MEAN CELL VOLUME 99.4 fl (80-96); MEAN PLT VOLUME 7.8 fl (7.5-11.1); PLATELET COUNT 129 10^3/uL (134-434); RBC 2.27 M/mm3 (4.00-5.60); WHITE BLOOD COUNT 2.3 K/mm3 (4.0-10.0)
[2024-06-15 09:10] LABS: POTASSIUM 5.4 mmol/L (3.5-5.1)
[2024-06-15 09:12] LABS: CALCIUM 7.6 mg/dL (8.5-10.1)
[2024-06-15 09:13] LABS: BLOOD UREA NITROGEN 56.5 mg/dL (7-18)
[2024-06-15 09:16] LABS: CREATININE 3.9 mg/dL (0.55-1.3)
[2024-06-15] MEDS: HEPARIN NA (PORCINE) 5,000 UNITS/ML 1ML VIAL IVPUSH ONE (15:17)
[2024-06-15] MEDS: EPOETIN ALFA-EPBX 10,000 UNIT/ML VIAL SQ ONE (15:17)
[2024-06-17 10:21] LABS: BASO % 1.3 % (0-2.0); EOS % 10.2 % (0-4.5); HEMATOCRIT 25.7 % (35.4-49); LYMPH % 20.2 % (8-40); MCH 31.6 pg (25.7-33.7); MCHC 31.3 g/dl (32.0-35.9); MEAN PLT VOLUME 7.8 fl (7.5-11.1); MONO % 11.7 % (3.8-10.2); NEUT % 56.6 % (42.8-82.8); PLATELET COUNT 167 10^3/uL (134-434); RBC 2.55 M/mm3 (4.00-5.60); RDW 18.2 % (11.9-15.9); WHITE BLOOD COUNT 2.6 K/mm3 (4.0-10.0)
[2024-06-17 10:50] LABS: ALBUMIN 2.6 g/dl (3.4-5.0); CALCIUM 8.5 mg/dL (8.5-10.1)
[2024-06-17 10:51] LABS: BLOOD UREA NITROGEN 48.8 mg/dL (7-18)
[2024-06-17 10:54] LABS: CREATININE 3.5 mg/dL (0.55-1.3)
[2024-06-17 10:55] LABS: BILIRUBIN,TOTAL 0.3 mg/dL (0.2-1); TOT PROT 5.7 g/dl (6.4-8.2)
[2024-06-17] MEDS: SODIUM ZIRCONIUM CYCLOSILICATE (LOKELMA) 5 GM PACKET PO ONE (11:59)
[2024-06-17] MEDS ORDERED: SODIUM CHLORIDE 250 ML IV PRN (12:10)
[2024-06-17] MEDS: EPOETIN ALFA-EPBX 10,000 UNIT/ML VIAL SQ ONE (15:59)
[2024-06-17 17:31] VITALS: RESP 18
[2024-06-18] MEDS: SODIUM ZIRCONIUM CYCLOSILICATE (LOKELMA) 5 GM PACKET PO SCH (09:51)
[2024-06-18] MEDS: TORSEMIDE 20 MG TABLET (FP) PO SCH (09:52)
[2024-06-18 10:38] LABS: HEMATOCRIT 24.2 % (35.4-49); HEMOGLOBIN 7.8 GM/dL (11.7-16.9); MCH 32.1 pg (25.7-33.7); MCHC 32.2 g/dl (32.0-35.9); MEAN CELL VOLUME 99.7 fl (80-96); MEAN PLT VOLUME 7.4 fl (7.5-11.1); PLATELET COUNT 163 10^3/uL (134-434); RBC 2.42 M/mm3 (4.00-5.60); RDW 17.5 % (11.9-15.9); WHITE BLOOD COUNT 2.7 K/mm3 (4.0-10.0)
[2024-06-18 11:01] LABS: BLOOD UREA NITROGEN 41.5 mg/dL (7-18); CALCIUM 8.1 mg/dL (8.5-10.1)
[2024-06-18 11:05] LABS: CREATININE 2.8 mg/dL (0.55-1.3)
[2024-06-18] MEDS: ONDANSETRON 4 MG/2 ML VIAL IVPUSH ONE (15:28)
[2024-06-18] MEDS: ERYTHROMYCIN 0.5% OPHTHALMIC OINTMENT 3.5 GM TUBE OU SCH (22:44)
[2024-06-18] MEDS: TETRAHYDROZOLINE HCL EYE DROPS OU SCH (22:50)
[2024-06-18] MEDS ORDERED: guaiFENesin 200 MG/10 ML 10 ML UNIT-DOSE CUPS PO PRN (22:57)
[2024-06-19] MEDS ORDERED: SODIUM CHLORIDE 250 ML IV PRN (09:37)
[2024-06-19 09:38] LABS: HEMATOCRIT 22.7 % (35.4-49); HEMOGLOBIN 7.3 GM/dL (11.7-16.9); MCH 32.1 pg (25.7-33.7); MCHC 32.1 g/dl (32.0-35.9); MEAN CELL VOLUME 99.8 fl (80-96); MEAN PLT VOLUME 6.9 fl (7.5-11.1); PLATELET COUNT 163 10^3/uL (134-434); RBC 2.28 M/mm3 (4.00-5.60); RDW 17.8 % (11.9-15.9); WHITE BLOOD COUNT 2.7 K/mm3 (4.0-10.0)
[2024-06-19 10:06] LABS: ALBUMIN 2.2 g/dl (3.4-5.0); BLOOD UREA NITROGEN 54.5 mg/dL (7-18); CALCIUM 8.6 mg/dL (8.5-10.1)
[2024-06-19 10:10] LABS: BILIRUBIN,TOTAL 0.2 mg/dL (0.2-1); CREATININE 3.3 mg/dL (0.55-1.3); TOT PROT 4.9 g/dl (6.4-8.2)
[2024-06-19] MEDS: EPOETIN ALFA-EPBX 10,000 UNIT/ML VIAL SQ ONE (11:15)
[2024-06-19 16:18] VITALS: BP 137/57; PULSE 73; TEMP 98.4
== END 2024-06-19 17:28 | DRG 640 ==
LOC: JER 17:25 → JERBED 20:04 → J5S 06-07 00:21
PROVIDERS: ADMIT Student in an Organized Health Care Education/Training Program; ATTEND Internal Medicine
PROC: 5A1D70Z Performance of Urinary Filtration, Intermittent, Less than 6 Hours Per Day (ICD-10-PCS; principal; 2024-06-19)
DX: E87.70 Fluid overload, unspecified (principal); I50.33 Acute on chronic diastolic (congestive) heart failure; N18.6 End stage renal disease; I13.2 Hypertensive heart and chronic kidney disease with heart failure and with stage 5 chronic kidney disease, or end stage renal disease; N17.9 Acute kidney failure, unspecified; I69.354 Hemiplegia and hemiparesis following cerebral infarction affecting left non-dominant side; I25.10 Atherosclerotic heart disease of native coronary artery without angina pectoris; I73.9 Peripheral vascular disease, unspecified; D64.9 Anemia, unspecified; E11.9 Type 2 diabetes mellitus without complications; H01.009 Unspecified blepharitis unspecified eye, unspecified eyelid; E87.5 Hyperkalemia; Z99.2 Dependence on renal dialysis; Z95.5 Presence of coronary angioplasty implant and graft
CPT/HCPCS: 0241U-QW; 36415; 70450-TC; 71045-TC-FY; 71046-TC-FY; 80048; 80053; 82607; 82728; 82746; 82962; 83540; 83550; 83735; 84100; 85025; 85027; 85610; 85651; 85730; 86140; 86704; 86708; 86803; 86850; 86900; 86901; 87340; 87389; 87517; 87635; 93005; 93010; 93990-TC; 94640; 97116-GP; 97162-GP; 99285-25; J1644; Q5106

== ENCOUNTER 2024-07-20 09:16 | Inpatient (IN) | payer OTHER ==
[2024-07-20 11:03] LABS: ABSOLUTE IMMATURE GRANULOCYTES 0.02 x10^3/uL (0.0-0.031); BASOPHILS # 0.03 x10^3/uL (0.01-0.08); EOSINOPHIL % 2.5 % (0.8-7.0); EOSINOPHILS # 0.15 x10^3/uL (0.04-0.54); HEMATOCRIT 30.3 % (40.1-51.0); HEMOGLOBIN 9.6 g/dL (13.7-17.5); MCHC 31.7 g/dl (32.3-36.5); MEAN CELL VOLUME 100.3 fl (79.0-92.2); MONOCYTE # 0.24 x10^3/uL (0.30-0.82); PLATELET COUNT 106 x10^3/uL (163-337); RDW 16.4 % (12.2-16.4)
[2024-07-20 11:16] LABS: ACTIVATED PTT 35.7 SECONDS (25.2-36.5)
[2024-07-20 11:23] LABS: POTASSIUM 5.2 mmol/L (3.5-5.1)
[2024-07-20 11:25] LABS: CALCIUM 8.7 mg/dL (8.5-10.1)
[2024-07-20 11:26] LABS: BLOOD UREA NITROGEN 53.4 mg/dL (7-18)
[2024-07-20 11:29] LABS: ALBUMIN 3.1 g/dl (3.4-5.0); CREATININE 3.3 mg/dL (0.55-1.3)
[2024-07-20 11:30] LABS: BILIRUBIN,TOTAL 0.5 mg/dL (0.2-1); TOT PROT 6.2 g/dl (6.4-8.2)
[2024-07-20 11:35] LABS: INR 1.18 (0.83-1.09)
[2024-07-20 11:37] LABS: EPI CELLS 3 /uL (0-25.1); HYALINE CASTS 0 /uL (0-3.1); PH,URINE 5.5 (5.0-8.0); URINE APPEARANCE CLEAR; URINE BACTERIA 1 /uL (0-1359); URINE BILIRUBIN NEGATIVE (NEGATIVE); URINE COLOR YELLOW; URINE GLUCOSE (UA) NEGATIVE (NEGATIVE); URINE KETONE NEGATIVE (NEGATIVE); URINE LEUK ESTERASE NEGATIVE (NEGATIVE); URINE NITRITE NEGATIVE (NEGATIVE); URINE PROTEIN 3+ (NEGATIVE); URINE RBC 61 /uL (0-23.9); URINE UROBILINOGEN 0.2 mg/dL (0.2-1.0); URINE WBC 6 /uL (0-25.8)
[2024-07-20 12:42] LABS: MAGNESIUM 2.2 mg/dL (1.8-2.4)
[2024-07-20] MEDS ORDERED: ERYTHROMYCIN 0.5% OPHTHALMIC OINTMENT 3.5 GM TUBE ONE (13:34)
[2024-07-20] MEDS ORDERED: SODIUM CHLORIDE 250 ML IV PRN (13:49)
[2024-07-20] MEDS: ERYTHROMYCIN 0.5% OPHTHALMIC OINTMENT 3.5 GM TUBE OU STA (13:58)
[2024-07-20 13:59] LABS: HIV INTERPRETATION NEGATIVE (NEGATIVE)
[2024-07-20 14:00] LABS: HCV DIAGNOSTIC IN-HOUSE W/RFLX NON-REACTIVE (NONREACTIVE)
[2024-07-20] MEDS ORDERED: PATIENT'S OWN MEDICATION (NON-FORMULARY) (Acetaminophen [8 Hour Pain Relief] 650 MG Tablet PO SCH (14:15)
[2024-07-20] MEDS: SODIUM ZIRCONIUM CYCLOSILICATE (LOKELMA) 5 GM PACKET PO SCH (17:17)
[2024-07-20] MEDS: DULoxetine HCL 30 MG CAPSULE.DR PO SCH (17:17)
[2024-07-20] MEDS: CALCIUM ACETATE 667 MG CAPSULE (FP) PO SCH (17:17)
[2024-07-20] MEDS: TAMSULOSIN HCL 0.4 MG CAP PO SCH (17:17)
[2024-07-20] MEDS: amLODIPine BESYLATE 10 MG TABLET (FP) PO SCH (17:17)
[2024-07-20] MEDS: TORSEMIDE 20 MG TABLET (FP) PO SCH (17:18)
[2024-07-20] MEDS: INSULIN ASPART SLIDING SCALE (NOVOLOG) 1 VIAL SQ SCH (17:31)
[2024-07-20] MEDS: ALBUMIN HUMAN 25% 100 ML VIAL IV SCH (17:41)
[2024-07-20] MEDS: MINERAL OIL/PET HY-PHL TOPICAL OINTMENT 454 GM JAR TP SCH (17:47)
[2024-07-20] MEDS: ALBUMIN HUMAN 25% 12.5 GM/50 ML VIAL IV SCH (17:54)
[2024-07-20] MEDS: EPOETIN ALFA-EPBX 3,000 UNIT/ML VIAL SQ ONE (18:52)
[2024-07-20] MEDS ORDERED: EPOETIN ALFA-EPBX 3,000 UNIT/ML VIAL IVPUSH ONE (19:00)
[2024-07-20] MEDS: ALBUTEROL SO4 2.5/IPRATROPIUM 0.5 INH SOL 3 ML VIAL.NEB. NEB SCH (20:35)
[2024-07-20] MEDS ORDERED: CARVEDILOL 25 MG TABLET (FP) PO SCH (22:00)
[2024-07-20] MEDS ORDERED: PATIENT'S OWN MEDICATION (NON-FORMULARY) (Atropine Sulfate/Pf [Atropine 1% Eye Drops] 1 EA OU SCH (22:00)
[2024-07-20] MEDS: HEPARIN NA (PORCINE) 5,000 UNITS/ML 1ML VIAL SQ SCH (22:01)
[2024-07-20] MEDS: SENNOSIDES 8.6MG TABLET (FP) PO SCH (22:01)
[2024-07-20] MEDS: MIDODRINE HCL 5 MG TABLET PO ONE (22:01)
[2024-07-20] MEDS: FAMOTIDINE 20 MG TABLET PO SCH (22:01)
[2024-07-20] MEDS: BRIMONIDINE TARTRATE 0.15% OPHTHALMIC 5 ML BOTTLE OU SCH (22:01)
[2024-07-20] MEDS: TIMOLOL 0.5% OPHTHALMIC SOL 5 ML BOTTLE OU SCH (22:02)
[2024-07-20] MEDS: TETRAHYDROZOLINE HCL EYE DROPS OU SCH (22:02)
[2024-07-21] MEDS: AMPICILLIN NA/SULBACTAM NA 1.5 GM in SODIUM CHLORIDE 100 ML IVPB SCH (03:11)
[2024-07-21] MEDS: AMPICILLIN NA/SULBACTAM NA 1.5 GM in SODIUM CHLORIDE 100 ML IVPB ONE (06:16)
[2024-07-21 07:24] LABS: POTASSIUM 4.2 mmol/L (3.5-5.1)
[2024-07-21 07:25] LABS: CALCIUM 8.1 mg/dL (8.5-10.1)
[2024-07-21 07:26] LABS: BLOOD UREA NITROGEN 45.1 mg/dL (7-18)
[2024-07-21 07:29] LABS: CREATININE 2.9 mg/dL (0.55-1.3)
[2024-07-21 07:49] LABS: HEMATOCRIT 15.8 % (40.1-51.0); HEMOGLOBIN 4.8 g/dL (13.7-17.5); MCHC 30.4 g/dl (32.3-36.5); MEAN CELL VOLUME 101.9 fl (79.0-92.2); MEAN PLT VOLUME 10.4 fl (9.4-12.4); PLATELET COUNT 97 x10^3/uL (163-337); RDW 16.1 % (12.2-16.4)
[2024-07-21 09:55] LABS: HEMATOCRIT 15.7 % (40.1-51.0); HEMOGLOBIN 4.9 g/dL (13.7-17.5); MCHC 31.2 g/dl (32.3-36.5); MEAN CELL VOLUME 101.3 fl (79.0-92.2); MEAN PLT VOLUME 10.2 fl (9.4-12.4); PLATELET COUNT 91 x10^3/uL (163-337); RDW 16.5 % (12.2-16.4)
[2024-07-21 10:59] LABS: Reticulocyte % 2.03 % (0.51-1.81)
[2024-07-21] MEDS: VITAMIN B COMP W-C 1 EA TABLET (NEPHRO-VITE) PO SCH (11:09)
[2024-07-21] MEDS: POLYETHYLENE GLYCOL (HEALTHYLAX) 3350 17 GM PACKET PO SCH (11:09)
[2024-07-21] MEDS: ASPIRIN 81 MG CHEWABLE TABLETS PO SCH (11:09)
[2024-07-21] MEDS: FERROUS SO4 325 MG TABLET (FP) PO SCH (11:10)
[2024-07-21] MEDS: FOLIC ACID 1 MG TABLET (FP) PO SCH (11:10)
[2024-07-21 11:12] LABS: ALBUMIN 2.9 g/dl (3.4-5.0)
[2024-07-21 11:15] LABS: BILIRUBIN,DIRECT 0.1 mg/dL (0.0-0.2)
[2024-07-21 11:17] LABS: BILIRUBIN,TOTAL 0.4 mg/dL (0.2-1); TOT PROT 4.8 g/dl (6.4-8.2)
[2024-07-21 11:41] LABS: Reticulocyte % 1.77 % (0.51-1.81)
[2024-07-21 13:18] LABS: Reticulocyte % 1.69 % (0.51-1.81)
[2024-07-21] MEDS: FUROSEMIDE 40 MG/4 ML INJECTABLE VIAL IVPUSH ONE ×2 (15:53→22:28)
[2024-07-21 21:30] LABS: HEMATOCRIT 18.9 % (40.1-51.0); HEMOGLOBIN 5.9 g/dL (13.7-17.5); MCHC 31.2 g/dl (32.3-36.5); MEAN CELL VOLUME 99.5 fl (79.0-92.2); PLATELET COUNT 94 x10^3/uL (163-337); RDW 16.9 % (12.2-16.4)
[2024-07-21] MEDS: ACETAMINOPHEN 325 MG TABLET (FP) PO PRN (21:50)
[2024-07-22 06:56] LABS: HEMATOCRIT 22.8 % (40.1-51.0); HEMOGLOBIN 7.5 g/dL (13.7-17.5); MCHC 32.9 g/dl (32.3-36.5); MEAN CELL VOLUME 93.1 fl (79.0-92.2); MEAN PLT VOLUME 10.1 fl (9.4-12.4); PLATELET COUNT 92 x10^3/uL (163-337); RDW 20.3 % (12.2-16.4)
[2024-07-22 07:26] LABS: POTASSIUM 4.4 mmol/L (3.5-5.1)
[2024-07-22 07:35] LABS: ALBUMIN 2.9 g/dl (3.4-5.0); CALCIUM 8.1 mg/dL (8.5-10.1)
[2024-07-22 07:38] LABS: CREATININE 3.4 mg/dL (0.55-1.3)
[2024-07-22 07:40] LABS: BILIRUBIN,TOTAL 0.6 mg/dL (0.2-1); TOT PROT 5.1 g/dl (6.4-8.2)
[2024-07-22] MEDS ORDERED: SODIUM CHLORIDE 250 ML IV PRN (14:05)
[2024-07-22] MEDS: MIRTAZAPINE 15 MG TABLET (FP) PO SCH (21:34)
[2024-07-23 07:51] LABS: HEMATOCRIT 21.1 % (40.1-51.0); MCHC 32.7 g/dl (32.3-36.5); MEAN CELL VOLUME 92.5 fl (79.0-92.2); MEAN PLT VOLUME 9.8 fl (9.4-12.4); PLATELET COUNT 115 x10^3/uL (163-337)
[2024-07-23 08:29] LABS: HEMOGLOBIN 6.9 g/dL (13.7-17.5)
[2024-07-23] MEDS: CARVEDILOL 25 MG TABLET (FP) PO SCH (10:01)
[2024-07-23] MEDS: amLODIPine BESYLATE 10 MG TABLET (FP) PO SCH (10:01)
[2024-07-23 15:25] LABS: HEMATOCRIT 23.4 % (40.1-51.0); HEMOGLOBIN 7.7 g/dL (13.7-17.5); MCHC 32.9 g/dl (32.3-36.5); MEAN CELL VOLUME 89.7 fl (79.0-92.2); MEAN PLT VOLUME 9.2 fl (9.4-12.4); PLATELET COUNT 123 x10^3/uL (163-337); RDW 19.2 % (12.2-16.4)
[2024-07-23] MEDS: EPOETIN ALFA-EPBX 10,000 UNIT/ML VIAL IVPUSH ONE (15:53)
[2024-07-24 08:14] LABS: POTASSIUM 4.5 mmol/L (3.5-5.1)
[2024-07-24 08:21] LABS: ALBUMIN 2.6 g/dl (3.4-5.0); BLOOD UREA NITROGEN 32.1 mg/dL (7-18); CALCIUM 7.6 mg/dL (8.5-10.1)
[2024-07-24 08:25] LABS: BILIRUBIN,TOTAL 0.5 mg/dL (0.2-1); TOT PROT 4.9 g/dl (6.4-8.2)
[2024-07-24 09:50] VITALS: BMI 27.2
[2024-07-24 10:00] LABS: HEMATOCRIT 24.5 % (40.1-51.0); HEMOGLOBIN 8.2 g/dL (13.7-17.5); MCHC 33.5 g/dl (32.3-36.5); MEAN CELL VOLUME 94.6 fl (79.0-92.2); MEAN PLT VOLUME 9.9 fl (9.4-12.4); PLATELET COUNT 133 x10^3/uL (163-337); RDW 19.9 % (12.2-16.4)
[2024-07-24] MEDS ORDERED: SODIUM CHLORIDE 250 ML IV PRN (13:08)
[2024-07-24 16:48] LABS: HEMATOCRIT 23.3 % (40.1-51.0); HEMOGLOBIN 7.3 g/dL (13.7-17.5); MCHC 31.3 g/dl (32.3-36.5); MEAN PLT VOLUME 9.4 fl (9.4-12.4); PLATELET COUNT 131 x10^3/uL (163-337); RDW 19.5 % (12.2-16.4)
[2024-07-25 07:22] LABS: HEMATOCRIT 24.8 % (40.1-51.0); HEMOGLOBIN 7.7 g/dL (13.7-17.5); MEAN CELL VOLUME 95.8 fl (79.0-92.2); MEAN PLT VOLUME 9.2 fl (9.4-12.4); PLATELET COUNT 138 x10^3/uL (163-337); RDW 19.3 % (12.2-16.4)
[2024-07-25 07:42] LABS: POTASSIUM 4.7 mmol/L (3.5-5.1)
[2024-07-25 07:45] LABS: BLOOD UREA NITROGEN 45.8 mg/dL (7-18)
[2024-07-25 07:46] LABS: ALBUMIN 2.6 g/dl (3.4-5.0)
[2024-07-25 07:49] LABS: CREATININE 3.9 mg/dL (0.55-1.3)
[2024-07-25 07:51] LABS: BILIRUBIN,TOTAL 0.6 mg/dL (0.2-1)
[2024-07-25 10:39] VITALS: RESP 20
[2024-07-25] MEDS: EPOETIN ALFA-EPBX 10,000 UNIT/ML VIAL SQ ONE (10:39)
[2024-07-25 12:46] VITALS: PULSE 74
[2024-07-25 14:32] VITALS: BP 150/59; TEMP 97.5
== END 2024-07-25 14:42 | DRG 314 ==
LOC: JER 09:16 → JERBED 11:09 → J4W 17:11 → OBSVTOIN 07-21 12:46
PROVIDERS: ADMIT Student in an Organized Health Care Education/Training Program; ATTEND Internal Medicine
PROC: 5A1D70Z Performance of Urinary Filtration, Intermittent, Less than 6 Hours Per Day (ICD-10-PCS; principal; 2024-07-20)
PROC: 30233N1 Transfusion of Nonautologous Red Blood Cells into Peripheral Vein, Percutaneous Approach (ICD-10-PCS; 2024-07-21)
PROC: 5A1D70Z Performance of Urinary Filtration, Intermittent, Less than 6 Hours Per Day (ICD-10-PCS; 2024-07-23)
PROC: 5A1D70Z Performance of Urinary Filtration, Intermittent, Less than 6 Hours Per Day (ICD-10-PCS; 2024-07-25)
DX: T82.590A Other mechanical complication of surgically created arteriovenous fistula, initial encounter (principal); N18.6 End stage renal disease; I13.2 Hypertensive heart and chronic kidney disease with heart failure and with stage 5 chronic kidney disease, or end stage renal disease; I50.32 Chronic diastolic (congestive) heart failure; I69.354 Hemiplegia and hemiparesis following cerebral infarction affecting left non-dominant side; D62 Acute posthemorrhagic anemia; I25.10 Atherosclerotic heart disease of native coronary artery without angina pectoris; R60.0 Localized edema; E78.00 Pure hypercholesterolemia, unspecified; K59.00 Constipation, unspecified; J44.9 Chronic obstructive pulmonary disease, unspecified; F41.9 Anxiety disorder, unspecified; S40.022A Contusion of left upper arm, initial encounter; E11.22 Type 2 diabetes mellitus with diabetic chronic kidney disease; Z99.2 Dependence on renal dialysis; H54.3 Unqualified visual loss, both eyes; E11.51 Type 2 diabetes mellitus with diabetic peripheral angiopathy without gangrene; E87.70 Fluid overload, unspecified; E87.5 Hyperkalemia; Z79.82 Long term (current) use of aspirin; Z99.81 Dependence on supplemental oxygen; Y83.8 Other surgical procedures as the cause of abnormal reaction of the patient, or of later complication, without mention of misadventure at the time of the procedure; Z95.5 Presence of coronary angioplasty implant and graft; X58.XXXA Exposure to other specified factors, initial encounter; Y93.9 Activity, unspecified; Y92.9 Unspecified place or not applicable; Y99.9 Unspecified external cause status
CPT/HCPCS: 0241U-QW; 36415; 36430; 71045-TC-FY; 71275-TC; 74174-TC; 76882-TC-RT-FY; 80048; 80053; 80076; 81003; 82962; 83010; 83615; 83690; 83735; 83880; 84484; 85025; 85027; 85610; 85730; 86803; 86850; 86880; 86900; 86901; 86922; 87086; 87340; 87389; 93005; 93010; 93990-TC; 94640; 99285-25; G0378; J1644; P9038; P9058; Q5106; Q9967

== ENCOUNTER 2024-08-06 18:29 | Observation (INO) | payer OTHER ==
[2024-08-06 19:10] VITALS: RESP 18
[2024-08-06 20:28] LABS: HEMATOCRIT 26.8 % (40.1-51.0); HEMOGLOBIN 8.3 g/dL (13.7-17.5); MEAN CELL VOLUME 101.1 fl (79.0-92.2); MEAN PLT VOLUME 8.7 fl (9.4-12.4); PLATELET COUNT 161 x10^3/uL (163-337); RDW 19.3 % (12.2-16.4)
[2024-08-06 20:49] LABS: CALCIUM 8.9 mg/dL (8.5-10.1)
[2024-08-06 20:50] LABS: INR 1.23 (0.83-1.09); PROTHROMBIN TIME (PATIENT) 13.4 SEC (9.7-13.0)
[2024-08-06 20:53] LABS: ACTIVATED PTT 33.1 SECONDS (25.2-36.5); CREATININE 4.4 mg/dL (0.55-1.3)
[2024-08-06 20:55] LABS: BILIRUBIN,TOTAL 0.7 mg/dL (0.2-1)
[2024-08-06 21:44] LABS: HCV DIAGNOSTIC IN-HOUSE W/RFLX NON-REACTIVE (NONREACTIVE)
[2024-08-06 21:45] LABS: HIV INTERPRETATION NEGATIVE (NEGATIVE)
[2024-08-07] MEDS: ALBUTEROL SO4 2.5/IPRATROPIUM 0.5 INH SOL 3 ML VIAL.NEB. NEB SCH (04:47)
[2024-08-07] MEDS: TETRAHYDROZOLINE HCL EYE DROPS OU SCH (05:28)
[2024-08-07] MEDS: HEPARIN NA (PORCINE) 5,000 UNITS/ML 1ML VIAL SQ SCH (05:28)
[2024-08-07] MEDS: INSULIN ASPART SLIDING SCALE (NOVOLOG) 1 VIAL SQ SCH (06:24)
[2024-08-07 09:27] LABS: ABSOLUTE IMMATURE GRANULOCYTES 0.02 x10^3/uL (0.0-0.031); BASOPHILS # 0.03 x10^3/uL (0.01-0.08); EOSINOPHIL % 7.1 % (0.8-7.0); EOSINOPHILS # 0.31 x10^3/uL (0.04-0.54); HEMATOCRIT 26.2 % (40.1-51.0); HEMOGLOBIN 7.9 g/dL (13.7-17.5); MCHC 30.2 g/dl (32.3-36.5); MEAN CELL VOLUME 100.8 fl (79.0-92.2); MEAN PLT VOLUME 9.8 fl (9.4-12.4); MONOCYTE # 0.39 x10^3/uL (0.30-0.82); MONOCYTE % 8.9 % (5.3-12.2); PLATELET COUNT 163 x10^3/uL (163-337)
[2024-08-07 09:49] LABS: POTASSIUM 4.9 mmol/L (3.5-5.1)
[2024-08-07 09:50] LABS: ALBUMIN 2.7 g/dl (3.4-5.0)
[2024-08-07 09:51] LABS: BLOOD UREA NITROGEN 89.2 mg/dL (7-18); CALCIUM 8.5 mg/dL (8.5-10.1); MAGNESIUM 2.4 mg/dL (1.8-2.4)
[2024-08-07 09:54] LABS: CREATININE 4.6 mg/dL (0.55-1.3); PHOSPHOROUS 4.7 mg/dL (2.5-4.9)
[2024-08-07 09:56] LABS: BILIRUBIN,TOTAL 0.6 mg/dL (0.2-1); TOT PROT 5.3 g/dl (6.4-8.2)
[2024-08-07] MEDS: FERROUS SO4 325 MG TABLET (FP) PO SCH (10:20)
[2024-08-07] MEDS: CARVEDILOL 25 MG TABLET (FP) PO SCH (10:20)
[2024-08-07] MEDS: FOLIC ACID 1 MG TABLET (FP) PO SCH (10:20)
[2024-08-07] MEDS: amLODIPine BESYLATE 10 MG TABLET (FP) PO SCH (10:20)
[2024-08-07] MEDS: SODIUM ZIRCONIUM CYCLOSILICATE (LOKELMA) 5 GM PACKET PO SCH (10:20)
[2024-08-07] MEDS: VITAMIN B COMP W-C 1 EA TABLET (NEPHRO-VITE) PO SCH (10:20)
[2024-08-07] MEDS: DULoxetine HCL 30 MG CAPSULE.DR PO SCH (10:20)
[2024-08-07] MEDS: POLYETHYLENE GLYCOL (HEALTHYLAX) 3350 17 GM PACKET PO SCH (10:20)
[2024-08-07] MEDS: TAMSULOSIN HCL 0.4 MG CAP PO SCH (10:20)
[2024-08-07] MEDS: BRIMONIDINE TARTRATE 0.15% OPHTHALMIC 5 ML BOTTLE OU SCH (10:21)
[2024-08-07] MEDS: ATROPINE SULFATE 1% OU SCH (10:25)
[2024-08-07] MEDS: TIMOLOL 0.5% OPHTHALMIC SOL 5 ML BOTTLE OU SCH (11:14)
[2024-08-07] MEDS ORDERED: ACETAMINOPHEN 325 MG TABLET (FP) PO PRN (12:06)
[2024-08-07 12:30] VITALS: BMI 27.5
[2024-08-07] MEDS ORDERED: SODIUM CHLORIDE 250 ML IV PRN (14:08)
[2024-08-07] MEDS: EPOETIN ALFA-EPBX 10,000 UNIT/ML VIAL SQ ONE (17:29)
[2024-08-07] MEDS: FAMOTIDINE 20 MG TABLET PO SCH (21:49)
[2024-08-07] MEDS: SENNOSIDES 8.6MG TABLET (FP) PO SCH (21:49)
[2024-08-07] MEDS: MIRTAZAPINE 15 MG TABLET (FP) PO SCH (23:50)
[2024-08-08] MEDS: TORSEMIDE 20 MG TABLET (FP) PO SCH (09:51)
[2024-08-08 10:00] LABS: ABSOLUTE IMMATURE GRANULOCYTES 0.02 x10^3/uL (0.0-0.031); BASOPHILS # 0.04 x10^3/uL (0.01-0.08); EOSINOPHIL % 6.5 % (0.8-7.0); EOSINOPHILS # 0.27 x10^3/uL (0.04-0.54); HEMATOCRIT 25.9 % (40.1-51.0); HEMOGLOBIN 7.9 g/dL (13.7-17.5); MCHC 30.5 g/dl (32.3-36.5); MEAN CELL VOLUME 101.2 fl (79.0-92.2); MEAN PLT VOLUME 9.5 fl (9.4-12.4); MONOCYTE # 0.46 x10^3/uL (0.30-0.82); MONOCYTE % 11.1 % (5.3-12.2); PLATELET COUNT 157 x10^3/uL (163-337); RDW 18.9 % (12.2-16.4)
[2024-08-08 10:38] LABS: ALBUMIN 2.6 g/dl (3.4-5.0)
[2024-08-08 10:39] LABS: CALCIUM 8.2 mg/dL (8.5-10.1)
[2024-08-08 10:40] LABS: BLOOD UREA NITROGEN 44.8 mg/dL (7-18)
[2024-08-08 10:43] LABS: BILIRUBIN,TOTAL 0.5 mg/dL (0.2-1); TOT PROT 5.4 g/dl (6.4-8.2)
[2024-08-08 13:45] VITALS: BP 127/51; PULSE 95; TEMP 97.9
== END 2024-08-08 16:20 ==
LOC: JER 18:29 → JERBED 21:00 → J5S 22:46
PROVIDERS: ADMIT Hospitalist
PROC: 3E0F7GC Introduction of Other Therapeutic Substance into Respiratory Tract, Via Natural or Artificial Opening (ICD-10-PCS; principal; 2024-08-06)
PROC: 3E023GC Introduction of Other Therapeutic Substance into Muscle, Percutaneous Approach (ICD-10-PCS; 2024-08-06)
DX: E11.22 Type 2 diabetes mellitus with diabetic chronic kidney disease (principal); I13.2 Hypertensive heart and chronic kidney disease with heart failure and with stage 5 chronic kidney disease, or end stage renal disease; N18.6 End stage renal disease; J44.9 Chronic obstructive pulmonary disease, unspecified; Z99.2 Dependence on renal dialysis; I69.354 Hemiplegia and hemiparesis following cerebral infarction affecting left non-dominant side
CPT/HCPCS: 36415; 71045-TC-FY; 73030-TC-LT-FY; 73060-TC-LT-FY; 73070-TC-LT-FY; 80053; 82962; 83735; 84100; 85025; 85610; 85730; 86803; 86850; 86870; 86880; 86900; 86901; 86902; 87389; 93005; 93010; 94640; 96372; 99285-25; G0378; J1644; Q5106